=== PATIENT | female | born 1990 | race African-American/Black ===

== ENCOUNTER 2023-03-03 00:34 | Emergency (ER) | payer OTHER, SELFPAY ==
[2023-03-03 00:36] VITALS: BP 122/82; PULSE 93; RESP 16; TEMP 36.9; O2SAT 100; BMI 24.9
--- NOTE | 2023-03-03 00:48 | PC.NURSE ---
Pt presents to ER for vaginal bleeding Pt states her last period was December 19, pt believes she had a miscarriage on January 13 Pt states she is afraid she did not pass all of the tissue as she is bleeding large clots at this time accompanied by abdominal pain and cramping Pt has not seen an OBGYN for this process
--- NOTE | 2023-03-03 00:48 | ED.FEMALEGU1 ---
HPI - Female Genitourinary General Chief complaint: Vaginal Bleeding Stated complaint: VAGINAL BLEEDING Time Seen by Provider: 03/03/23 00:37 Source: patient Mode of arrival: walk-in History of Present Illness HPI Narrative: 32-year-old female presents to the emergency department for vaginal bleeding. She believes she had a miscarriage on January 13. She did not seek medical care at that time and hasn't seen a logistics support. She is worried that she didn't pass everything. She has low abdominal pain and cramping and she's been having some bleeding for a few days. No fever. Related Data Home Medications Medication Instructions Recorded Confirmed buspirone 15 mg tablet mg 03/03/23 Allergies Allergy/AdvReac Type Severity Reaction Status Date / Time No Known Drug Allergies Allergy Verified 03/03/23 00:42 Review of Systems ROS Narrative A ten point review of systems is negative except as noted above. PFSH PFS Social History Smoking status: Current every day smoker Exam Narrative Exam Narrative: Nurses note and vital signs reviewed and patient is not hypoxic. General: The patient appears well and in no apparent distress. Patient is resting comfortably on cart. Skin: Warm, dry, no pallor noted. There is no rash noted. Head: Normocephalic, atraumatic Eye: Normal conjunctiva, no drainage Ears, Nose, Mouth, and Throat: oral mucosa is moist. Nares patent. Cardiovascular: Regular Rate and Rhythm Respiratory: Patient is in no distress, no accessory muscle use, lungs are clear to auscultation, no wheezing, rales or rhonchi Back: non-tender GI: soft; non-tender in the upper abdomen. Mild tenderness in the lower abdomen Musculoskeletal: The patient has no evidence of calf tenderness, no pitting edema, symmetrical pulses noted bilaterally Neurological: A&O, normal speech Psychiatric: Cooperative Constitutional Vital Signs, click to edit/add: Last Vital Signs Temp 98.4 F 03/03/23 00:36 Pulse 93 H 03/03/23 00:36 Resp 16 03/03/23 00:36 BP 122/82 03/03/23 00:36 Pulse Ox 100 03/03/23 00:36 O2 Del Method Room Air 03/03/23 00:36 Course Vital Signs Vital signs: Vital Signs Temperature 98.4 F 03/03/23 00:36 Pulse Rate 93 H 03/03/23 00:36 Respiratory Rate 16 03/03/23 00:36 Blood Pressure 122/82 03/03/23 00:36 Pulse Oximetry 100 03/03/23 00:36 Oxygen Delivery Method Room Air 03/03/23 00:36 Temperature 98.4 F 03/03/23 00:36 Pulse Rate 93 H 03/03/23 00:36 Respiratory Rate 16 10 00:36 Blood Pressure 122/82 03/03/23 00:36 Pulse Oximetry 100 03/03/23 00:36 Oxygen Delivery Method Room Air 03/03/23 00:36 MDM - Female Genitourinary MDM Narrative Medical decision making narrative: HCG titer is 6966 and ultrasound shows five-week size gestational sac. The possibility of miscarriage was discussed with the patient and the possibility of blighted ovum exists as well. She will be discharged home and will call her HUMAN RESOURCES SUPERVISOR's office in the morning for appropriate follow-up. The need for repeat hCG titer was discussed with the patient. There is no evidence at this point of an ectopic . Differential Diagnosis Differential diagnosis: Likely other (ectopic , threatened , incomplete ) Lab Data Attestation: I reviewed the patient's lab results. Labs: Lab Results 03/03/23 Range/Units 01:00 WBC 8.5 (4.0-11.0) 10^3/uL RBC 3.18 L (4.20-5.40) 10^6/uL Hgb 9.7 L (12.0-16.0) g/dL Hct 29.8 L (36.0-48.0) % MCV 93.7 (81.0-99.0) fL MCH 30.5 (26.7-34.0) pg MCHC 32.6 (29.9-35.2) g/dL RDW 12.1 (11.0-15.0) % Plt Count 350 (150-450) 10^3/uL MPV 10.1 (9.5-13.5) fL Neut % (Auto) 52.5 (43.0-75.0) % Lymph % (Auto) 29.1 (20.5-60.0) % [place] % (Auto) 11.6 (1.7-12.0) % Eos % (Auto) 5.9 (0.9-7.0) % Baso % (Auto) 0.5 (0.2-2.0) % Neut # (Auto) 4.5 (1.4-6.5) 10^3/uL Lymph # (Auto) 2.5 (1.2-3.8) 10^3/uL [place] # (Auto) 1.0 H (0.3-0.8) 10^3/uL Eos # (Auto) 0.5 (0.0-0.7) 10^3/uL Baso # (Auto) 0.0 (0.0-0.1) 10^3/uL Abs Immat Gran (auto) 0.03 (0.00-0.03) 10^3/uL Imm/Tot Granulo (auto) 0.4 (0.0-0.5) % Sodium 135 L (136-145) mmol/L Potassium 3.2 L (3.5-5.1) mmol/L Chloride 104 (98-107) mmol/L Carbon Dioxide 26.4 (21.0-32.0) mmol/L Anion Gap 7.8 BUN 11.0 (7.0-18.0) mg/dL Creatinine 0.69 (0.55-1.02) mg/dL Est GFR ( Amer) >60 (>=60) Est GFR (Non-Af Amer) >60 (>=60) BUN/Creatinine Ratio 15.9 Glucose 98 (74-106) mg/dL Calcium 8.2 L (8.5-10.1) mg/dL HCG, Quant 6966 mIU/mL Blood Type B Positive Imaging Data pelvic ultrasound: Radiologist's impression: Procedure: US OB transvaginal EXAM: US OB transvaginal HISTORY: Intermittent vaginal bleeding since 02/16/2023. Quadrant [id number] COMPARISON: Pelvic ultrasound, 08/06/2021. TECHNIQUE: Transvaginal sonographic images of pelvis were obtained in standard projections. FINDINGS: There is an intrauterine gestational sac measuring 1 cm in mean sac diameter, corresponding to an early 5 week gestation. No intrinsic yolk sac or pole is seen. There is no subchorionic hemorrhage. The uterus is anteverted but otherwise unremarkable. The right ovary appears normal and measures 2.7 x 1.3 x 3.1 cm. Right ovarian color flow imaging is documented. The left ovary measures 3.5 x 4.8 x 3.3 cm and contains a simple anechoic corpus luteum cyst, measuring 2.7 x 2.6 x 2.6 cm. Normal left ovarian color flow imaging is seen on image 8192. Trace free fluid is noted. No adnexal mass is seen. IMPRESSION: 1. Intrauterine gestational sac corresponding to a 5 week gestation by mean sac diameter. No intrinsic yolk sac or pole is seen. Follow-up beta-hCG levels and pelvic sonography are recommended to distinguish between early IUP, blighted ovum, or less likely, a pseudocyst sac of ectopic . 2. Simple left ovarian corpus luteum cyst. Otherwise unremarkable bilateral ovaries. 3. Trace pelvic free fluid. 4. No adnexal mass. Electronically authenticated by: STACEY GORMAN Date: 03/03/2023 03:51 Discharge Plan Discharge Chief Complaint: Vaginal Bleeding Clinical Impression: Threatened Patient Disposition: Home, Self-Care Time of Disposition Decision: 04:00 Condition: Good Mode of Transportation: Private Vehicle Prescriptions / Home Meds: No Action buspirone 15 mg tablet Instructions: Threatened Miscarriage (ED) Additional Instructions: Call Dr Choi's office in the morning. Stand Alone Forms: Portal Instructions Referrals: VINICIUS BATRES [Primary Care Provider] - 1 week
[2023-03-03 01:25] LABS: Basophils Percent Auto 0.5 % (0.2-2.0); Eosinophils Absolute Auto 0.5 10^3/uL (0.0-0.7); Eosinophils Percent Auto 5.9 % (0.9-7.0); Hematocrit 29.8 % (36.0-48.0); Hemoglobin 9.7 g/dL (12.0-16.0); Immature Granulocytes Abs Auto 0.03 10^3/uL (0.00-0.03); Immature Granulocytes Pct Auto 0.4 % (0.0-0.5); Lymphocytes Absolute Auto 2.5 10^3/uL (1.2-3.8); Lymphocytes Percent Auto 29.1 % (20.5-60.0); Mean Corpuscular HGB Conc 32.6 g/dL (29.9-35.2); Mean Corpuscular Hemoglobin 30.5 pg (26.7-34.0); Mean Corpuscular Volume 93.7 fL (81.0-99.0); Mean Platelet Volume 10.1 fL (9.5-13.5); Monocytes Percent Auto 11.6 % (1.7-12.0); Neutrophils Absolute Auto 4.5 10^3/uL (1.4-6.5); Neutrophils Percent Auto 52.5 % (43.0-75.0); Platelet Count 350 10^3/uL (150-450); Red Blood Count 3.18 10^6/uL (4.20-5.40); Red Cell Distribution Width 12.1 % (11.0-15.0); White Blood Count 8.5 10^3/uL (4.0-11.0)
[2023-03-03 02:04] LABS: Anion Gap 7.8; BUN Creatinine Ratio 15.9; Calcium 8.2 mg/dL (8.5-10.1); Carbon Dioxide 26.4 mmol/L (21.0-32.0); Chloride 104 mmol/L (98-107); Estimated GFR (African America >60 (>=60); Estimated GFR (Non-African Ame >60 (>=60); Glucose 98 mg/dL (74-106); HCG Quantitative 6966 mIU/mL; Potassium 3.2 mmol/L (3.5-5.1); Sodium 135 mmol/L (136-145)
--- NOTE | 2023-03-03 02:12 | US_ITS ---
The [address] [address] Patient Name: HOMERO RAMIREZ MRN: [id number] date: 1990 Sex: F Assigned Patient Location: ER Current Patient Location: ER Accession/Order Number: [id number] Exam Date: 03/03/2023 02:30 Report Date: 03/03/2023 03:51 At the request of: JAZMIN GARBER Procedure: US OB transvaginal EXAM: US OB transvaginal HISTORY: Intermittent vaginal bleeding since 02/16/2023. Quadrant [id number] COMPARISON: Pelvic ultrasound, 08/06/2021. TECHNIQUE: Transvaginal sonographic images of pelvis were obtained in standard projections. FINDINGS: There is an intrauterine gestational sac measuring 1 cm in mean sac diameter, corresponding to an early 5 week gestation. No intrinsic yolk sac or pole is seen. There is no subchorionic hemorrhage. The uterus is anteverted but otherwise unremarkable. The right ovary appears normal and measures 2.7 x 1.3 x 3.1 cm. Right ovarian color flow imaging is documented. The left ovary measures 3.5 x 4.8 x 3.3 cm and contains a simple anechoic corpus luteum cyst, measuring 2.7 x 2.6 x 2.6 cm. Normal left ovarian color flow imaging is seen on image 8192. Trace free fluid is noted. No adnexal mass is seen. US/US OB transvaginal IMPRESSION: 1. Intrauterine gestational sac corresponding to a 5 week gestation by mean sac diameter. No intrinsic yolk sac or pole is seen. Follow-up beta-hCG levels and pelvic sonography are recommended to distinguish between early IUP, blighted ovum, or less likely, a pseudocyst sac of ectopic . 2. Simple left ovarian corpus luteum cyst. Otherwise unremarkable bilateral ovaries. 3. Trace pelvic free fluid. 4. No adnexal mass. Electronically authenticated by: STACEY GORMAN Date: 03/03/2023 03:51
== END 2023-03-03 04:25 | disposition home or self-care (01) ==
PROVIDERS: Emergency Provider Emergency Medicine; PCP Family Medicine
DX: O20.0 Threatened abortion (principal); Z3A.01 Less than 8 weeks gestation of pregnancy
CPT/HCPCS: 36415; 76817; 80048; 84702; 85025; 86900; 86901; 99284

== ENCOUNTER 2023-03-04 17:44 | Day surgery (SDC) | payer OTHER, SELFPAY ==
[2023-03-04] VITALS (12 sets, daily range): BP systolic 113–162; BP diastolic 58–109; PULSE 74–132; RESP 18–28; TEMP 36.2–36.9; O2SAT 94–100; BMI 25.7
--- NOTE | 2023-03-04 18:19 | US_ITS ---
The [address] [address] Patient Name: HOMERO RAMIREZ MRN: [id number] date: 1990 Sex: F Assigned Patient Location: ER Current Patient Location: ED.MAIN Accession/Order Number: [id number] Exam Date: 03/04/2023 19:18 Report Date: 03/04/2023 20:10 At the request of: JUANJOSE COBOS Procedure: US OB transvaginal EXAM: US OB transvaginal HISTORY: Spontaneous , retained POC COMPARISON: Pelvic ultrasound, 03/03/2023. TECHNIQUE: Endovaginal sonographic images of pelvis were obtained in standard projections with color flow imaging. FINDINGS: No interval change from yesterday. Intrauterine gestational sac measuring 1.2 cm corresponding to 5 week 2 day gestation. No intrinsic yolk sac or pole. No subchorionic hemorrhage or uterine mass. Close cervix measuring 3.6 cm. Unremarkable right ovary measuring 3.3 x 1.5 x 2.3 cm. Left ovary measures 4.7 x 3.7 x 4.2 cm with a simple 2.9 cm cyst, likely a corpus luteum. US/US OB transvaginal IMPRESSION: 1. No interval change from yesterday. 2. Cystic lesion in the endometrial canal favoring a gestational sac over pseudocyst sac of ectopic . This corresponds to an early 5 week 2 day gestation and contains no yolk sac or pole. Follow-up beta-hCG levels and pelvic sonography are recommended to differentiate between early IUP and potential blighted ovum. 3. No adnexal mass or pelvic free fluid. 4. Left ovarian corpus luteum. Otherwise unremarkable ovaries. Electronically authenticated by: STACEY GORMAN Date: 03/04/2023 20:10
--- NOTE | 2023-03-04 18:21 | ED_ITS ---
HPI - General Chief complaint: Vaginal Bleeding Stated complaint: Time Seen by Provider: 03/04/23 18:15 Source: patient Mode of arrival: walk-in History of Present Illness HPI Narrative: patient is a 32-year-old female A2 who presents to the emergency department for an increase in vaginal bleeding, pelvic pain. Patient was seen in this emergency department several days ago and was found to have ultrasound showing a five week , although the patient has suspected for several weeks that she is miscarrying. She is due to see her MIXER WHIPPED TOPPING in two days for a D and C. She states today the pain became more intense, she has had vomiting but no fevers. No medications taken prior to arrival. She is passing clots, she has not noted any tissue. No urinary symptoms. Related Data Home Medications Medication Instructions Recorded Confirmed buspirone 15 mg tablet mg 03/03/23 Allergies Allergy/AdvReac Type Severity Reaction Status Date / Time No Known Drug Allergies Allergy Verified 03/03/23 00:42 Review of Systems ROS Constitutional Denies: fever or chills Ears, nose, mouth, and throat Denies: neck pain Cardiovascular Denies: chest pain Respiratory Denies: shortness of breath or cough Gastrointestinal Reports: abdominal pain, nausea and vomiting; Denies: diarrhea Genitourinary Denies: painful urination Musculoskeletal Reports: back pain Integumentary/Breast Denies: rash Neurological Denies: headache Psychiatric Denies: anxiety Hematologic/Lymphatic Denies: easy bruising [facility] Social History Smoking status: Current every day smoker Exam Narrative Exam Narrative: Gen.: Awake, alert, in no distress Head: Normocephalic, atraumatic ENT: Moist mucous membranes Respiratory: No respiratory distress, lungs clear bilaterally Cardio: Regular rate and rhythm Gastrointestinal: Abdomen is soft, nondistended, tender to palpation diffusely in the pelvis, worse on the left side Extremities: Moves extremities equally Psych: Normal mood and affect Neuro: No focal neuro deficit Skin: Warm, dry, intact Constitutional Vital Signs, click to edit/add: Last Vital Signs Temp 98.4 F 03/04/23 17:57 Pulse 74 03/04/23 19:40 Resp 18 03/04/23 19:40 BP 130/78 03/04/23 19:40 Pulse Ox 100 10/10/23 19:40 O2 Del Method Room Air 03/04/23 17:57 Course Vital Signs Vital signs: Vital Signs Temperature 98.4 F 03/04/23 17:57 Pulse Rate 86 03/04/23 17:57 Respiratory Rate 20 03/04/23 17:57 Blood Pressure 162/109 H 03/04/23 17:57 Pulse Oximetry 98 03/04/23 17:57 Oxygen Delivery Method Room Air 03/04/23 17:57 Temperature 98.4 F 03/04/23 17:57 Pulse Rate 74 03/04/23 19:40 Respiratory Rate 18 03/04/23 19:40 Blood Pressure 130/78 03/04/23 19:40 Pulse Oximetry 100 03/04/23 19:40 Oxygen Delivery Method Room Air 03/04/23 17:57 MDM - OB/Uterine Contractions MDM Narrative Medical decision making narrative: patient was stable lab studies, quantitative hCG level has increased, I discussed this with MIXER WHIPPED TOPPING, Dr. Choi and patient has had varying levels of quantitative hCG levels over the last several weeks, with increasing pain and bleeding, ultrasound shows continued suspicion for blighted ovum. Patient will be taken for a suction D and C as this is not progressing the way that it should. Patient is in agreement with this procedure. Discussed with anesthesia and surgical team, patient will be admitted for suction D and C. Stable at time of admission. Medical Records Attestation: I reviewed the patient's medical records. Lab Data Attestation: I reviewed the patient's lab results. Labs: Lab Results 03/04/23 Range/Units 18:11 WBC 11.1 H (4.0-11.0) 10^3/uL RBC 3.42 L (4.20-5.40) 10^6/uL Hgb 10.6 L (12.0-16.0) g/dL Hct 31.8 L (36.0-48.0) % MCV 93.0 (81.0-99.0) fL MCH 31.0 (26.7-34.0) pg MCHC 33.3 (29.9-35.2) g/dL RDW 12.3 (11.0-15.0) % Plt Count 385 (150-450) 10^3/uL MPV 10.1 (9.5-13.5) fL Neut % (Auto) 60.4 (43.0-75.0) % Lymph % (Auto) 26.3 (20.5-60.0) % [place] % (Auto) 9.3 (1.7-12.0) % Eos % (Auto) 3.1 (0.9-7.0) % Baso % (Auto) 0.5 (0.2-2.0) % Neut # (Auto) 6.7 H (1.4-6.5) 10^3/uL Lymph # (Auto) 2.9 (1.2-3.8) 10^3/uL [place] # (Auto) 1.0 H (0.3-0.8) 10^3/uL Eos # (Auto) 0.4 (0.0-0.7) 10^3/uL Baso # (Auto) 0.1 (0.0-0.1) 10^3/uL Abs Immat Gran (auto) 0.04 H (0.00-0.03) 10^3/uL Imm/Tot Granulo (auto) 0.4 (0.0-0.5) % PT 10.1 (9.0-11.6) sec INR 0.95 Sodium 136 (136-145) mmol/L Potassium 3.3 L (3.5-5.1) mmol/L Chloride 104 (98-107) mmol/L Carbon Dioxide 27.6 (21.0-32.0) mmol/L Anion Gap 7.7 BUN 8.0 (7.0-18.0) mg/dL Creatinine 0.67 (0.55-1.02) mg/dL Est GFR ( Amer) >60 (>=60) Est GFR (Non-Af Amer) >60 (>=60) BUN/Creatinine Ratio 11.9 Glucose 91 (74-106) mg/dL Calcium 9.0 (8.5-10.1) mg/dL Total Bilirubin 0.4 (0.2-1.0) mg/dL AST 12 L (15-37) U/L ALT 19 (14-59) U/L Alkaline Phosphatase 37 L (46-116) U/L Total Protein 7.7 (6.4-8.2) g/dL Albumin 4.0 (3.4-5.0) g/dL Globulin 3.7 g/dL Albumin/Globulin Ratio 1.1 HCG, Quant 99450 mIU/mL Discharge Plan Discharge Chief Complaint: Vaginal Bleeding Time of Disposition Decision: 19:59 Prescriptions / Home Meds: No Action buspirone 15 mg tablet
[2023-03-04] MEDS: 0.9 % SODIUM CHLORIDE 1,000 ML 999 ML IV (18:28)
[2023-03-04] MEDS: ONDANSETRON PF 4 MG/2 ML VIAL IV (18:28)
[2023-03-04 18:30] LABS: Basophils Absolute Auto 0.1 10^3/uL (0.0-0.1); Basophils Percent Auto 0.5 % (0.2-2.0); Eosinophils Absolute Auto 0.4 10^3/uL (0.0-0.7); Eosinophils Percent Auto 3.1 % (0.9-7.0); Hematocrit 31.8 % (36.0-48.0); Hemoglobin 10.6 g/dL (12.0-16.0); Immature Granulocytes Abs Auto 0.04 10^3/uL (0.00-0.03); Immature Granulocytes Pct Auto 0.4 % (0.0-0.5); Lymphocytes Absolute Auto 2.9 10^3/uL (1.2-3.8); Lymphocytes Percent Auto 26.3 % (20.5-60.0); Mean Corpuscular HGB Conc 33.3 g/dL (29.9-35.2); Mean Platelet Volume 10.1 fL (9.5-13.5); Monocytes Percent Auto 9.3 % (1.7-12.0); Neutrophils Absolute Auto 6.7 10^3/uL (1.4-6.5); Neutrophils Percent Auto 60.4 % (43.0-75.0); Platelet Count 385 10^3/uL (150-450); Red Blood Count 3.42 10^6/uL (4.20-5.40); Red Cell Distribution Width 12.3 % (11.0-15.0); White Blood Count 11.1 10^3/uL (4.0-11.0)
[2023-03-04] MEDS: MORPHINE SULFATE 4 MG/ML VIAL IV (18:32)
[2023-03-04 18:36] LABS: INR 0.95; Prothrombin Time 10.1 sec (9.0-11.6)
[2023-03-04 18:39] LABS: Alanine Aminotransferase 19 U/L (14-59); Albumin Globulin Ratio 1.1; Alkaline Phosphatase 37 U/L (46-116); Anion Gap 7.7; Aspartate Amino Transferase 12 U/L (15-37); BUN Creatinine Ratio 11.9; Bilirubin Total 0.4 mg/dL (0.2-1.0); Carbon Dioxide 27.6 mmol/L (21.0-32.0); Chloride 104 mmol/L (98-107); Estimated GFR (African America >60 (>=60); Estimated GFR (Non-African Ame >60 (>=60); Globulin 3.7 g/dL; Glucose 91 mg/dL (74-106); Potassium 3.3 mmol/L (3.5-5.1); Sodium 136 mmol/L (136-145); Total Protein 7.7 g/dL (6.4-8.2)
[2023-03-04 18:58] LABS: HCG Quantitative 10074 mIU/mL
[2023-03-04] MEDS: LACTATED RINGER'S SOLUTION 1,000 ML 1000 ML IV (20:08)
--- NOTE | 2023-03-04 20:17 | PC.NURSE ---
OR nurse to unit at this time. Report given and patient to surgery
--- NOTE | 2023-03-04 21:02 | P.ON_ITS ---
Brief Operative Note Date of procedure: 03/04/23 Pre-op diagnosis: 1st trimester missed Post-op diagnosis: same as pre-op Procedure: NAME OF PROCEDURE: [D&C suction ] PROCEDURE: The patient was taken back to the OR where she was given general anesthesia without difficulty. She was then placed in dorsal lithotomy position, prepped and draped in the normal sterile fashion. A weighted speculum was placed in the patient's vagina and the anterior lip of the cervix was identified and grasped with a single-tooth tenaculum. The patient was then gently dilated using Hegar dilators after we had sounded roughly to 10 cm. The suction curette was then tested. The suction curette was then placed in the patient's uterus and products of conception were removed using an 10-Macedonian suction curette. ?Excellent hemostasis was noted. The patient tolerated the procedure well. Sponge, lap, and needle counts were correct x 2. All instruments were then removed from the patient's vagina. The patient was taken to the Recovery Room in stable co ndition. ?? Anesthesia: ANIYAHA Surgeon: Shakir Choi Estimated blood loss (mL): 25 Pathology: other (products of conception) Condition: stable Disposition: PACU
--- NOTE | 2023-03-04 22:04 | PC.NURSE ---
patient arrived from PACU alert and oriented. Patient transported in bed with two nurses. Patient has urinated, denies c/o pain and is currently eating and drinking.
--- NOTE | 2023-03-04 22:15 | PC.NURSE ---
Patient has been given discharge instruction and scripts. Patient has verbalized understanding.
== END 2023-03-04 22:19 | disposition home or self-care (01) ==
LOC: ER 20:05 → SURGOUT 20:30
PROVIDERS: Physician Assistant; Emergency Provider Emergency Medicine Emergency Medical Services; PCP Family Medicine; Visit Provider Obstetrics & Gynecology
PROC: (CPT 1965; principal; 2023-03-04 20:30)
DX: O02.1 Missed abortion (principal)
CPT/HCPCS: 01965; 59820; 36415; 76817; 80053; 84702; 85025; 85610; 86850; 86900; 86901; 88305; 96361; 96374; 96375; 99285; J2704

== ENCOUNTER 2023-11-24 20:31 | Emergency (ER) | payer OTHER, SELFPAY ==
[2023-11-24 20:56] VITALS: BP 125/96; PULSE 80; TEMP 37; O2SAT 100; BMI 26.8
[2023-11-24 21:38] LABS: Bilirubin Urine NEGATIVE (NEGATIVE); Blood Urine NEGATIVE (NEGATIVE); Clarity Urine CLEAR (CLEAR); Color Urine LT. YELLOW (YELLOW); Glucose Urine UA NEGATIVE (NEGATIVE); Ketones Urine NEGATIVE (NEGATIVE); Leukocyte Esterase Urine NEGATIVE (NEGATIVE); Nitrite Urine POSITIVE (NEGATIVE); Protein Urine NEGATIVE (NEG/TRACE); Specific Gravity Urine 1.015 (1.005-1.025); pH Urine 8.5 (5.0-9.0)
[2023-11-24 21:44] LABS: HCG Qualitative Urine* POSITIVE (NEGATIVE); Internal Control Within Normal Limits
[2023-11-24 21:53] LABS: Bacteria Urine MODERATE #/HPF (NONE SEEN); Cast Seen? NONE SEEN #/LPF (NONE SEEN); Crystals Seen? None Seen #/HPF (None Seen); Mucus Urine NONE SEEN (NONE SEEN); RBC Urine NONE SEEN #/HPF (0-2); Squamous Epithelial Cell Urine FEW #/LPF (NONE/RARE); Urine Culture Indicated YES
--- NOTE | 2023-11-24 22:00 | ED.FEMALEGU1 ---
HPI - Female Genitourinary General Chief complaint: Urogenital-Female Stated complaint: Possible Under 20-weeks Time Seen by Provider: 11/24/23 20:35 Source: patient Mode of arrival: walk-in Limitations: no limitations History of Present Illness HPI Narrative: This 33-year-old female G8, P5 who has had 2 miscarriages presents for evaluation of lower abdominal cramping and vaginal spotting. She states her last menstrual period was at the end of September. She denies any passage of large clots or tissue. She states she gets anxious because she had a miscarriage requiring a D&C the last time she was . Her SCREW MACHINE OPERATOR is Dr. Choi. Related Data Home Medications ?Medication ?Instructions ?Recorded ?Confirmed baricitinib 2 mg tablet (Olumiant) 2 mg PO DAILY 11/24/23 11/24/23 Allergies Allergy/AdvReac Type Severity Reaction Status Date / Time No Known Drug Allergies Allergy Verified 11/24/23 20:56 Review of Systems ROS Status of ROS 10 or more systems reviewed and unremarkable except as noted in history and below PFSH PFS Social History Smoking status: Current every day smoker Exam Narrative Exam Narrative: Vital signs and Nursing Notes reviewed: Patient is afebrile with a normal pulse, blood pressure is elevated at 125/96, she is not hypoxic with pulse ox of 100% on room air General: Awake, alert, oriented, no acute distress, lying comfortably on the stretcher HEENT: Normocephalic atraumatic, mucous membranes are moist and pink, eyes are clear, normal conjunctiva, vision is grossly intact Chest: Lungs are clear to auscultation with good air entry, there is no wheezing rhonchi or rales appreciated no accessory muscle use, patient is speaking in complete sentences-no chest wall tenderness to palpation CVS: Regular rate and rhythm S1-S2, no murmurs rubs or gallops, pulses are brisk and equal bilaterally ABD: Soft, nondistended, nontender, no rebound guarding or rigidity, mild tenderness in the left adnexa, no tenderness over the urinary bladder : declined Extremities: Moving all extremities, no lower extremity tenderness or swelling noted, negative Homans' sign, pulses are brisk and equal bilaterally Skin: Normal in appearance without rash,pallor, petechiae or purpura Neuro: No focal deficits Constitutional Vital Signs, click to edit/add: Last Vital Signs Temp 98.6 F 11/24/23 20:56 Pulse 80 11/24/23 20:56 Resp 18 11/24/23 20:56 BP 125/96 H 11/24/23 20:56 Pulse Ox 100 11/24/23 20:56 O2 Del Method Room Air 11/24/23 20:56 Course Vital Signs Vital signs: Vital Signs Temperature 98.6 F 11/24/23 20:56 Pulse Rate 80 11/24/23 20:56 Respiratory Rate 18 11/24/23 20:56 Blood Pressure 125/96 H 11/24/23 20:56 Pulse Oximetry 100 11/24/23 20:56 Oxygen Delivery Method Room Air 11/24/23 20:56 Temperature 98.6 F 11/24/23 20:56 Pulse Rate 80 11/24/23 20:56 Respiratory Rate 18 11/24/23 20:56 Blood Pressure 125/96 H 11/24/23 20:56 Pulse Oximetry 100 11/24/23 20:56 Oxygen Delivery Method Room Air 11/24/23 20:56 MDM - Female Genitourinary MDM Narrative Medical decision making narrative: This 33-year-old female who has had 2 miscarriages in the past presents for evaluation of painless vaginal bleeding/spotting and some mild lower abdominal cramping that has been present for the past several days. She states her last miscarriage started like this. She is not having any severe abdominal pain. She declines a pelvic exam. Her urine is negative for infection but positive qualitative test resulted. The results of this this was discussed with her. She will be given an outpatient ultrasound requisition and will follow-up with Dr. Choi, her SCREW MACHINE OPERATOR. Lab Data Labs: Lab Results 11/24/23 Range/Units 21:15 Urine Color Lt. yellow (YELLOW) Urine Clarity Clear (CLEAR) Urine pH 8.5 (5.0-9.0) Ur Specific [place] 1.015 (1.005-1.025) Urine Protein Negative (NEG/TRACE) mg/dL Urine Glucose (UA) Negative (NEGATIVE) mg/dL Urine Ketones Negative (NEGATIVE) mg/dL Urine Occult Blood Negative (NEGATIVE) Urine Nitrite Positive A (NEGATIVE) Urine Bilirubin Negative (NEGATIVE) Urine Urobilinogen 1.0 (0.2-1.0) EU/dL Ur Leukocyte Esterase Negative (NEGATIVE) Urine RBC None seen (0-2) #/HPF Urine WBC 5-10 A (NONE SEEN) #/HPF Ur Squamous Epith Cells Few A (NONE/RARE) #/LPF Urine Crystals None seen (None Seen) #/HPF Urine Bacteria Moderate A (NONE SEEN) #/HPF Urine Casts None seen (NONE SEEN) #/LPF Urine Mucus None seen (NONE SEEN) Ur Culture Indicated? Yes Urine HCG, Qual Positive A (NEGATIVE) Discharge Plan Discharge Stand Alone Forms: Portal Instructions Chief Complaint: Urogenital-Female Clinical Impression: Threatened Patient Disposition: Home, Self-Care Time of Disposition Decision: 22:06 Condition: Good Prescriptions / Home Meds: No Action Olumiant 2 mg tablet 2 mg PO DAILY Print Language: Honduran Instructions: Threatened Miscarriage (ED) Additional Instructions: Call central scheduling to schedule an ultrasound. Avoid sex, tampons or douching in light of the vaginal bleeding and positive test. Referrals: VINICIUS BATRES [Primary Care Provider] - 1 week Shakir Choi DO [Physician] - 1 week
== END 2023-11-24 22:38 | disposition home or self-care (01) ==
PROVIDERS: Emergency Provider Emergency Medicine; PCP Family Medicine
DX: O20.0 Threatened abortion (principal); Z3A.00 Weeks of gestation of pregnancy not specified
CPT/HCPCS: 81001; 84703; 87086; 87150; 87186; 99283

== ENCOUNTER 2024-01-01 12:29 | Outpatient (OUT) | payer OTHER, SELFPAY ==
--- NOTE | 2024-01-01 12:30 | US_ITS ---
[address] [address] Patient Name: HOMERO RAMIREZ MRN: [id number] date: 1990 Sex: F Assigned Patient Location: [facility] Current Patient Location: [facility] Accession/Order Number: [id number] Exam Date: 01/01/2024 12:30 Report Date: 01/01/2024 14:01 At the request of: JINA HILL Procedure: US OB transvaginal EXAMINATION: US OB transvaginal HISTORY: MISSED MENSES COMPARISON: No relevant comparison available. FINDINGS: Clark intrauterine gestation Gestational sac: 3.5 cm, 9 weeks 1 day CRL: 2.50 cm, 9 weeks 1 day Yolk sac: 3.2 mm Heart rate: 181 beats minute Cervix: 4.6 cm, closed The uterus is normal, anteverted, anteflexed The ovaries are not visualized Clinical age: 8 weeks 5 days Clinical SURYA: 08/07/2024 Ultrasound age: 9 weeks 1 day Ultrasound SURYA: 08/04/2024 US/US OB transvaginal IMPRESSION: Viable clark intrauterine gestation measuring 9 weeks 1 day Electronically authenticated by: VINICIUS GARCIA Date: 01/01/2024 14:01
== END 2024-01-01 12:30 | disposition home or self-care (01) ==
LOC: NOMS 12:29
PROVIDERS: PCP Family Medicine; Visit Provider Obstetrics & Gynecology
DX: Z34.91 Encounter for supervision of normal pregnancy, unspecified, first trimester (principal); Z3A.09 9 weeks gestation of pregnancy; N92.6 Irregular menstruation, unspecified
CPT/HCPCS: 76817

== ENCOUNTER 2024-01-17 10:40 | Outpatient (OUT) | payer OTHER, SELFPAY ==
--- OUTSIDE RECORDS SUMMARY | 2024-01-17 10:47 | XMS_ITS | CCD ---
Author Organization [facility] Team Providers Care Senior Specialist Name Role Phone LIZ, DR MURO Admitting Unavailable MISC, DR MIRELES Primary Care Unavailable RADHA, DR VINICIUS Fuentes Consulting Unavailable LIZ, DR MURO Attending Unavailable LIZ, DR MURO Consulting Unavailable LIZ, DR MURO Admitting Unavailable LIZ, DR MURO Attending Unavailable LIZ, DR MURO Consulting Unavailable REQUEST, NONE LISTED Primary Care Unavaila ble LIZ, DR MURO Admitting Unavailable REQUEST, NONE LISTED Primary Care Unavaila ble LIZ, DR MURO Attending Unavailable JAZMIN GARBER Consulting Unavailable JAZMIN GARBER Admitting Unavailable REQUEST, NONE LISTED Primary Care Unavaila JAZMIN Patel Attending Unavailable LIZ, DR MURO Attending Unavailable LIZ, DR MURO Admitting Unavailable WEST, DR VINICIUS Fuentes Consulting Unavailable REQUEST, DR BETTS LISTED Primary Care Unavaila ble LIZ, DR MURO Consulting Unavailable LIZ, DR MURO Admitting Unavailable LIZ, DR MURO Attending Unavailable LIZ, DR MURO Consulting Unavailable LIZ, DR MURO Primary Care Unavailable Jayro ATWOOD, Benson Primary Care Provider Un available Jayro ATWOOD, Benson Primary Care Provider Un available OBCHRIS, BENSON Primary Care Unavailable OBCHRIS, ALPHCHANI Primary Care Unavailable TREVA LOMELI Referring Unavailable VINICIUS BATRES Primary Care Unavailable VINICIUS BATRES Primary Care Unavailable VINICIUS BATRES Primary Care Unavailable CARROL DAVIS Attending Unavailable BERNIE PULIDO Referring Unavailable [facility] Unavailable BERNIE PULIDO Referring Unavailable [facility] Unavailable BERNIE PULIDO Referring Unavailable [facility] Unavailable Medications Current Medications Medication Drug Class(es) Dates Sig (Normalized) Sig (Original) azithromycin 500 mg oral tablet (1 source) Macrolide Antimicrobial Start: 09-03-2021 azithromycin (ZITHROMAX) 500 MG tablet cephalexin 500 mg oral capsule (1 source) Cephalosporin Antibacterial Start: 08-21-2021 End: 08-28-2021 take 1 capsule by mouth four times daily cephALEXin (KEFLEX) 500 MG capsule Indications: Urinary tract infection in mother during , antepartum Take 1 capsule by mouth 4 times daily for 7 days 28 capsule 0 08/21/2021 08/28/2021 Active ferrous sulfate 325 mg oral tablet (1 source) Start: 09-01-2021 take 1 tablet by mouth once daily at breakfast ferrous sulfate (IRON 325) 325 (65 Fe) MG tablet Take 325 mg by mouth daily (with breakfast) 0 09/01/2021 Active 2.5 ml iron sucrose 20 mg/ml injection (1 source) Parenteral Iron Replacement Start: 09-04-2021 End: 09-19-2021 inject 15 mL intravenously every week iron sucrose (VENOFER) 20 MG/ML injection Indications: Maternal iron deficiency anemia affecting in third trimester, antepartum Infuse 15 mLs intravenously once a week for 3 doses 45 mL 0 09/04/2021 09/19/2021 Active VITAMINS PO (2 sources) Start: 04-23-2012 take 1 tablet by mouth once daily VITAMINS PO Take 1 tablet by mouth daily. 0 04/23/2012 Active Problems Active Problems Problem Classification Problem Date Documented Da te Episodic/Chronic Cardiac and circulatory congenital anomalies (2 sources) Congenital heart disease; Translations: [Congenital malformation of heart, unspecified] Onset: 08-21-2021 08-21-2021 Chronic Deficiency and other anemia (1 source) Anemia, unspecified; Translations: [Anemia, unspecified] Onset: 12-05-2023 Episodic Genitourinary symptoms and ill-defined conditions (2 sources) History of urinary tract infection; Translations: [Personal history of urinary (tract) infections] Onset: 08-20-2021 08-21-2021 Episodic Hemorrhage during ; abruptio placenta; placenta previa (1 source) Low lying placenta NOS or without hemorrhage, second trimester; Translations: [LOW LYING PL NOS W/O HEMORR 2ND TRI] Onset: 08-07-2021 Episodic Menstrual disorders (4 sources) Irregular menstruation, unspecified; Translations: [IRREGULAR MENSTRUATION UNSPECIFIED] Onset: 03-30-2021 Chronic Nausea and vomiting (5 sources) Nausea with vomiting, unspecified; Translations: [NAUSEA WITH VOMITING UNSPECIFIED] Onset: 03-16-2021 Episodic Other aftercare (1 source) Other group home (current) drug therapy; Translations: [Other group home (current) drug therapy] Onset: 11-06-2023 Episodic Other complications of (1 source) Anemia in mother complicating , childbirth AND/OR puerperium; Translations: [Anemia complicating , third trimester] Onset: 09-04-2021 09-04-2021 Chronic Other complications of (2 sources) Uterine size for dates discrepancy; Translations: [Uterine size-date discrepancy, unspecified trimester] Onset: 08-21-2021 08-21-2021 Episodic Other female genital disorders (2 sources) H/O: premature delivery; Translations: [Personal history of pre-term labor] Onset: 08-20-2021 08-20-2021 Episodic Other infections; including parasitic (2 sources) History of chlamydial infection; Translations: [Personal history of other infectious and parasitic diseases] Onset: 08-20-2021 08-21-2021 Episodic Other infections; including parasitic (2 sources) H/O: infectious disease; Translations: [Personal history of other infectious and parasitic diseases] Onset: 08-20-2021 08-21-2021 Episodic Other and delivery including normal (6 sources) Encounter for supervision of other normal , first trimester; Translations: [Encounter for supervision of normal , unspecified, first trimester] Onset: 04-05-2021 Episodic Other screening for suspected conditions (not mental disorders or infectious disease) (5 sources) Encounter for other specified screening; Translations: [Encounter for screening for diabetes mellitus] Onset: 04-28-2021 Episodic Residual codes; unclassified (1 source) 26 weeks gestation of ; Translations: [26 WEEKS GESTATION OF ] Onset: 08-07-2021 Episodic Syncope (1 source) Syncope and collapse; Translations: [Syncope and collapse] Onset: 12-20-2023 Episodic Unclassified (1 source) Thrombocytosis, unspecified; Translations: [Thrombocytosis, unspecified] Onset: 12-05-2023 Unclassified (1 source) Morning Sickness Onset: 12-20-2023 Unclassified (1 source) recent possitive preg test, now bleeding Onset: 11-24-2023 Unclassified (1 source) Cold Like Symptoms Onset: 07-17-2023 Past or Other Problems Problem Classification Problem Date Documented Date Episodic/Chronic Immunizations and screening for infectious disease (4 sources) Contact with and (suspected) exposure to infections with a predominantly sexual mode of transmission; Translations: [CONTCT W EXPOS INFECT SEXUAL TRNSMS] Onset: 04-23-2021 Episodic Influenza (1 source) Influenza due to other identified influenza virus with other respiratory manifestations; Translations: [Influenza due to other identified influenza virus with other respiratory manifestations] Onset: 07-17-2023 Episodic Other complications of (1 source) Other specified related conditions, first trimester; Translations: [OTH SPEC PREG RELATED COND 1ST TRI] Onset: 04-23-2021 Episodic Other complications of (2 sources) Mental disorder during - baby not yet delivered; Translations: [Other mental disorders complicating , unspecified trimester] Onset: 06-24-2012 08-21-2021 Episodic Other complications of (2 sources) Hereditary disease in family possibly affecting fetus; Translations: [Maternal care for (suspected) hereditary disease in fetus, not applicable or unspecified] Onset: 06-24-2012 08-21-2021 Episodic Other complications of (2 sources) History of premature labor; Translations: [Supervision of with history of pre-term labor, unspecified trimester] Onset: 06-24-2012 Resolved: 08-20-2021 08-20-2021 Episodic Residual codes; unclassified (1 source) Less than 8 weeks gestation of ; Translations: [< 8 WEEKS GESTATION ] Onset: 04-23-2021 Episodic Substance-related disorders (2 sources) Suspected damage from maternal drug use; Translations: [Maternal care for (suspected) damage to fetus by drugs, not applicable or unspecified] Onset: 06-24-2012 Resolved: 08-21-2021 08-21-2021 Episodic Results Test Name Value Interpretation Reference Range Facility CBC AND AUTO DIFFon 12-20-19 ABSOLUTE BASOPHIL 0.1 X10E9/L Normal 0.0-0.2 [facility] Comment on above: Performed By: #### Marco Antonio ATKINSON CMP, #### [facility] ([id number]) [address] [place] [address] 04749 ABSOLUTE NEUTROPHIL 11.7 X10E9/L High 1.5-6.6 [facility] Comment on above: Performed By: #### Marco Antonio ATKINSON CMP, #### [facility] ([id number]) [address] [place] [address] 18171 Basophils/100 WBC (Bld) 0.4 % Normal [facility] Comment on above: Performed By: #### Marco Antonio ATKINSON CMP, #### [facility] ([id number]) [address] [place] [address] 28238 Eosinophils (Bld) [#/Vol] 0.3 10*3/uL Normal 0.0-0.4 [facility] Comment on above: Performed By: #### Marco Antonio ATKINSON [facility], #### [facility] ([id number]) [address] [place] [address] 98906 Eosinophils/100 WBC (Bld) 1.6 % Normal [facility] Comment on above: Performed By: #### Marco Antonio ATKINSON CMP, #### [facility] ([id number]) [address] [place] [address] 37955 Erythrocyte distribution width (RBC) [Ratio] 13.0 % Normal 11.5-15.0 [facility] Comment on above: Performed By: #### Marco Antonio ATKINSON CMP, #### [facility] ([id number]) [address] [place] [address] Hematocrit (Bld) [Volume fraction] 33.1 % Low 35-47 [facility] Comment on above: Performed By: #### C CEE ATKINSON, #### [facility] ([id number]) [address] [place] [address] 66700 Hemoglobin (Bld) [Mass/Vol] 11.1 g/dL Low 11.7-15.5 [facility] Comment on above: Performed By: #### Marco Antonio ATKINSON CMP, #### [facility] ([id number]) [address] [place] [address] 47288 Lymphocytes (Bld) [#/Vol] 2.6 10*3/uL Normal 1.0-3.5 [facility] Comment on above: Performed By: #### Marco Antonio ATKINSON CMP, #### [facility] ([id number]) [address] [place] [address] 66158 Lymphocytes/100 WBC (Bld) 16.5 % Normal [facility] Comment on above: Performed By: #### Marco Antonio ATKINSON CMP, #### [facility] ([id number]) [address] [place] [address] 29727 MCH (RBC) [Entitic mass] 30.3 pg Normal 27-34 [facility] Comment on above: Performed By: #### Marco Antonio ATKINSON CMP, #### [facility] ([id number]) [address] [place] [address] [place] [address] MCHC (RBC) [Mass/Vol] 33.6 g/dL Normal 32-36 [facility] Comment on above: Performed By: #### Marco Antonio ATKINSON CMP, #### [facility] ([id number]) [address] [place] [address] 26500 MCV (RBC) [Entitic vol] 90 fL Normal 80-100 [facility] Comment on above: Performed By: #### Marco Antonio ATKINSON CMP, #### [facility] ([id number]) [address] [place] [address] 13650 Monocytes (Bld) [#/Vol] 1.2 10*3/uL High 0-0.9 [facility] Comment on above: Performed By: #### Marco Antonio ATKINSON, CMP, #### [facility] ([id number]) [address] [place] [address] 91609 Monocytes/100 WBC (Bld) 7.5 % Normal [facility] Comment on above: Performed By: #### Marco Antonio ATKINSON CMP, #### [facility] ([id number]) [address] [place] [address] 59717 Neutrophils/100 WBC (Bld) 74.0 % Normal [facility] Comment on above: Performed By: #### Marco Antonio ATKINSON, CMP, #### [facility] ([id number]) [address] [place] [address] 41680 Platelet mean volume (Bld) [Entitic vol] 9.1 fL Normal 7-12 [facility] Comment on above: Performed By: #### Marco Antonio ATKINSON CMP, #### [facility] ([id number]) [address] [place] [address] 79131 Platelets (Bld) [#/Vol] 385 10*3/uL Normal 150-450 [facility] Comment on above: Performed By: #### Marco Antonio ATKINSON, CMP, #### [facility] ([id number]) [address] [place] [address] 96065 RBC COUNT 3.67 X10E12/L Low 3.80-5.20 [facility] Comment on above: Performed By: #### Marco Antonio ATKINSON, CMP, #### [facility] ([id number]) [address] [place] [address] 13816 WBC (Bld) [#/Vol] 15.8 10*3/uL High 4.0-11.0 [facility] Comment on above: Performed By: #### C BCA, CMP, #### [facility] ([id number]) [address] [place] [address] 65234 COMPREHENSIVE METABOLIC PANE Baljit 12-20-2023 Albumin [Mass/Vol] 4.2 g/dL Normal 3.2-5.3 [facility] Comment on above: Performed By: #### C CHINA, CMP, #### [facility] ([id number]) [address] [place] [address] 86790 ALP [Catalytic activity/Vol] 39 U/L Normal 39-130 [facility] Comment on above: Performed By: #### C BCA, CMP, #### [facility] ([id number]) [address] [place] [address] 51581 ALT [Catalytic activity/Vol] 14 U/L Normal 0-31 [facility] Comment on above: Performed By: #### C BCA, CMP, #### [facility] ([id number]) [address] [place] [address] 67984 Anion gap [Moles/Vol] 6 mmol/L Normal 5-15 [facility] Comment on above: Performed By: #### C BCA, CMP, #### [facility] ([id number]) [address] [place] [address] 72683 AST [Catalytic activity/Vol] 20 U/L Normal 0-41 [facility] Comment on above: Performed By: #### C BCA, CMP, #### [facility] ([id number]) [address] [place] [address] Bilirubin [Mass/Vol] 0.6 mg/dL Normal 0.3-1.2 [facility] Comment on above: Performed By: #### C CEE ATKINSON, #### [facility] ([id number]) [address] [place] [address] 64763 Calcium [Mass/Vol] 8.9 mg/dL Normal 8.5-10.5 [facility] Comment on above: Performed By: #### C CEE ATKINSON, #### [facility] ([id number]) [address] [place] [address] 69034 Chloride [Moles/Vol] 104 mmol/L Normal 98-109 [facility] Comment on above: Performed By: #### C CEE ATKINSON, #### [facility] ([id number]) [address] [place] [address] 19915 CO2 [Moles/Vol] 22 mmol/L Normal 22-32 [facility] Comment on above: Performed By: #### C CEE ATKINSON, #### [facility] ([id number]) [address] [place] [address] 96213 Creatinine [Mass/Vol] 0.56 mg/dL Normal 0.40-1.00 [facility] Comment on above: Result Comment: METH OD TRACEABLE TO IDMS STANDARD Performed By: #### C CEE ATKINSON, #### [facility] ([id number]) [address] [place] [address] [place] [address] eGFR (CKD-EPI) NON-RACE DEPENDENT >90 Normal >59 [facility] Comment on above: Result Comment: Reported eGFR is based on the CKD-EPI 2020 equation that does not use a race coefficient. Performed By: #### C CEE ATKINSON, #### [facility] ([id number]) [address] [place] [address] 22884 Glucose [Mass/Vol] 112 mg/dL High 65-99 [facility] Comment on above: Performed By: #### C CHINA [facility], #### [facility] ([id number]) [address] [place] [address] 02558 Potassium [Moles/Vol] 3.2 mmol/L Low 3.5-5.0 [facility] Comment on above: Performed By: #### C CHINA [facility], #### [facility] ([id number]) [address] [place] [address] 35713 Protein [Mass/Vol] 7.6 g/dL Normal 6.0-8.0 [facility] Comment on above: Performed By: #### C CHINA CMP, #### [facility] ([id number]) [address] [place] [address] 96658 Sodium [Moles/Vol] 132 mmol/L Low 134-146 [facility] Comment on above: Performed By: #### C CHINA [facility], #### [facility] ([id number]) [address] [place] [address] 74185 Urea nitrogen [Mass/Vol] 9 mg/dL Normal 5-23 [facility] Comment on above: Performed By: #### C CHINA [facility], #### [facility] ([id number]) [address] [place] [address] 63266 HCG ( test) Ql (U)o n 12-20-2023 Beta HCG ( test) Ql (U) Positive Abnormal NEG [facility] Comment on above: Performed By: #### 2 106-3 #### [facility] ([id number]) [address] [place] [address] 80649 HCG.beta subunit IA 3rd IS Q non 12-20-2023 [place] [address] m[IU]/mL Normal P [facility] Comment on above: Result Comment: NEW REFERENCE RANGE WEEKS (SINCE LMP) MIU/mL 3 WEEKS 5 - 50 4 WEEKS 5 - 426 5 WEEKS 18 - 7,340 6 WEEKS 1,080 - 56,500 7-8 WEEKS 7,650 - 229,000 9-12 WEEKS 25,700 - 288,000 13-16 WEEKS 13,300 - 254,000 17-24 WEEKS 4,060 - 165,400 25-40 WEEKS 3,640 - 117,000 MALES AND NON- FEMALES - <5 MIU/mL This test has been FDA approved for use in only. Elevated levels are not necessarily diagnostic for trophoblastic or nontrophoblastic neoplasms. Performed By: #### C BCA, CMP, [id number] #### [facility] ([id number]) [address] [place] [address] 88582 URINE CULTUREon 12-20-2023 Bacteria identified Cx Nom (U) CULTURE RESULTS NO GROWTH AT <1000 CFU/mL Normal [facility] Comment on above: Performed By: #### 6 30-4 #### [facility] ([id number]) [address] [place] [address], [address] [place] [address] URN MACROSCOPIC NURon 2023 BILIRUBIN ALEKSANDRA Negative Normal NEG [facility] Comment on above: Performed By: #### N UM #### [facility] ([id number]) [address] [place] [address] 82901 BLOOD/HGB ALEKSANDRA Trace Abnormal NEG [facility] Comment on above: Performed By: #### N UM #### [facility] ([id number]) [address] [place] [address] 29124 GLUCOSE ALEKSANDRA Negative Normal NEG [facility] Comment on above: Performed By: #### N UM #### [facility] ([id number]) [address] [place] [address] 48986 KETONES ALEKSANDRA Negative Normal NEG [facility] Comment on above: Performed By: #### N UM #### [facility] ([id number]) [address] [place] [address] 54243 LEUKOCYTE ESTERASE ALEKSANDRA Trace Abnormal NEG [facility] Comment on above: Performed By: #### N UM #### [facility] ([id number]) [address] [place] [address] 76068 NITRITE ALEKSANDRA Negative Normal NEG [facility] Comment on above: Performed By: #### N UM #### [facility] ([id number]) [address] [place] [address] 29154 PH ALEKSANDRA 6.5 Normal 5.0-8.5 [facility] Comment on above: Performed By: #### N UM #### [facility] ([id number]) [address] [place] [address] 21793 PROTEIN ALEKSANDRA Negative Normal NEG [facility] Comment on above: Performed By: #### N UM #### [facility] ([id number]) [address] [place] [address] 89540 SPECIFIC GRAVITY ALEKSANDRA 1.010 Normal 1.003-1.035 [facility] Comment on above: Performed By: #### N UM #### [facility] ([id number]) [address] [place] [address] 91739 UROBILINOGEN ALEKSANDRA 1.0 eu/dL Normal <1.1 [facility] Comment on above: Performed By: #### N UM #### [facility] ([id number]) [address] [place] [address] 06720 Hgb Electrophoresison 2023 Hgb Elect.Interp. Normal Hb electrophoretic pattern. HbA = 97.2% HbA2 = 2.8% Normal Values Normal [facility] Comment on above: Result Comment: (Hem oglobin A= 96.8 to 97.8% Hemoglobin A2= 2.2 to 3.2%) Performed By: #### F EBC, HGBE, B12FOL #### [address] [address] Production Welder: Severino Jacobson MD #### RETCT, CDP, FERI #### [facility] [address] [place] [address] Production Welder: Lukasz Puga MD Pathologist Review: ELECTRONICALLY SIGNED. AUTUMN MENDOZA M.D. Normal [facility] Comment on above: Performed By: #### F EBC, HGBE, B12FOL #### [address] [address] Production Welder: Severino Jacobson MD #### RETCT, CDP, FERI #### [facility] [address] [place] [address] 5[address]80 Production Welder: Lukasz Puga MD Smear to Pathologiston 12-07 Smear to Pathologist ELECTRONICALLY SIGNED. MITA REGAN M.D. [facility] Comment on above: Performed By: #### P ATH #### [address] [address] Production Welder: Severino Jacobson MD B12/Folate Panelon Cobalamin (Vitamin B12) [Mass/Vol] 717 pg/mL Normal 232-1245 [facility] Comment on above: Performed By: #### F EBC, HGBE, B12FOL #### [address] [address] Production Welder: Severino Jacobson MD #### RETCT, CDP, FERI #### [facility] [address] [place] [address]304 Production Welder: Lukasz Puga MD Folic Acid 12.2 ng/mL Normal 4.8-24.2 [facility] Comment on above: Performed By: #### F EBC, HGBE, B12FOL #### [address] [address] Production Welder: Severino Jacobson MD #### VALENCIA CDP, FERI #### [facility] [address] [place] [address] 69663 Production Welder: Lukasz Puga MD CBC with Diffon 12-05-2023 Abs. Atypical Lymphs 0.14 k/uL Normal [facility] Comment on above: Performed By: #### F EBC, HGBE, B12FOL #### [address] [address] Production Welder: Severino Jacobson MD #### VALENCIA CDP, FERI #### [facility] [address] [place] [address] 92805 Production Welder: Lukasz Puga MD Abs. Basophil 0.07 k/uL Normal 0.0-0.2 [facility] Comment on above: Performed By: #### F EBC, HGBE, B12FOL #### [address] [address] Production Welder: Severino Jacobson MD #### RETCT, CDP, FERI #### [facility] [place] [address] Production Welder: Lukasz Puga MD Abs.Imm.Granulocyte 0.00 k/uL Normal 0.00-0.30 [facility] Comment on above: Performed By: #### F EBC, HGBE, B12FOL #### [address] [address] Production Welder: Severino Jacobson MD #### RETCT, CDP, FERI #### [facility] [address] [place] [address]36 Production Welder: Lukasz Puga MD Abs.Neutrophil (Seg) 2.80 k/uL Normal 1.8-7.7 [facility] Comment on above: Performed By: #### F EBC, HGBE, B12FOL #### [address] [address] Production Welder: Severino Jacobson MD #### RETCT, CDP, FERI #### [facility] [address] [place] [address] Production Welder: Lukasz Puga MD Atypical Lymphs 2 % Normal [facility] Comment on above: Performed By: #### F EBC, HGBE, B12FOL #### [address] [address] Production Welder: Severino Jacobson MD #### RETCT, CDP, FERI #### [facility] [address] [place] [address] Production Welder: Lukasz Puga MD Basophils/100 WBC (Bld) 1 % Normal [facility] Comment on above: Performed By: #### F EBC, HGBE, B12FOL #### [address] [address] Production Welder: Severino Jacobson MD #### RETCT, CDP, FERI #### [facility] [address] [place] [address] Production Welder: Lukasz Puga MD Eosinophils (Bld) [#/Vol] 0.07 10*3/uL Normal 0.0-0.4 [facility] Comment on above: Performed By: #### F EBC, HGBE, B12FOL #### [address] [address] Production Welder: Severino Jacobson MD #### RETCT, CDP, FERI #### [facility] [place] [address] Production Welder: Lukasz Puga MD Eosinophils/100 WBC (Bld) 1 % Normal 1-4 [facility] Comment on above: Performed By: #### F EBC, HGBE, B12FOL #### [address] [address] Production Welder: Severino Jacobson MD #### RETCT, CDP, FERI #### [facility] [address] [place] [address] Production Welder: Lukasz Puga MD Immature granulocytes/100 WBC (Bld) 0 % Normal 0 [facility] Comment on above: Performed By: #### F EBC, HGBE, B12FOL #### [address] [address] Production Welder: Severino Jacobson MD #### RETCT, CDP, FERI #### [facility] [address] [place] [address] Production Welder: Lukasz Puga MD Lymphocytes (Bld) [#/Vol] 3.29 10*3/uL Normal 1.0-4.8 [facility] Comment on above: Performed By: #### F EBC, HGBE, B12FOL #### [address] [address] Production Welder: Severino Jacobson MD #### RETCT, CDP, FERI #### [facility] [address] [place] [address] Production Welder: Lukasz Puga MD Lymphocytes/100 WBC (Bld) 47 % High 24-44 [facility] Comment on above: Performed By: #### F EBC, HGBE, B12FOL #### [address] [address] Production Welder: Severino Jacobson MD #### RETCT, CDP, FERI #### [facility] [address] [place] [address] Production Welder: Lukasz Puga MD Monocytes (Bld) [#/Vol] 0.63 10*3/uL Normal 0.2-0.8 [facility] Comment on above: Performed By: #### F EBC, HGBE, B12FOL #### [address] [address] Production Welder: Severino Jacobson MD #### RETCT, CDP, FERI #### [facility] [address] [place] [address] Production Welder: Lukasz Puga MD Monocytes/100 WBC (Bld) 9 % High 1-7 [facility] Comment on above: Performed By: #### F EBC, HGBE, B12FOL #### [address] [address] Production Welder: Severino Jacobson MD #### RETCT, CDP, FERI #### [facility] [address] [place] [address] Production Welder: Lukasz Puga MD Neutrophil (Seg) 40 % Normal 36-66 [facility] Comment on above: Performed By: #### F EBC, HGBE, B12FOL #### [address] [address] Production Welder: Severino Jacobson MD #### RETCT, CDP, FERI #### [facility] [place] [address] Production Welder: Lukasz Puga MD Erythrocyte distribution width (RBC) [Ratio] 12.6 % Normal 11.8-14.4 [facility] Comment on above: Performed By: #### F EBC, HGBE, B12FOL #### [address] [address] Production Welder: Severino Jacobson MD #### RETCT, CDP, FERI #### [facility] [address] [place] [address] Production Welder: Lukasz Puga MD Hematocrit (Bld) [Volume fraction] 31.0 % Low 36.3-47.1 [facility] Comment on above: Performed By: #### F EBC, HGBE, B12FOL #### [address] [address] Production Welder: Severino Jacobson MD #### RETCT, CDP, FERI #### [facility] [address] [place] [address] Production Welder: Lukasz Puag MD Hemoglobin (Bld) [Mass/Vol] 9.9 g/dL Low 11.9-15.1 [facility] Comment on above: Performed By: #### F EBC, HGBE, B12FOL #### [address] [address] Production Welder: Severino Jacobson MD #### RETCT, CDP, FERI #### [facility] [address] [place] [address] Production Welder: Lukasz Puga MD MCH (RBC) [Entitic mass] 29.8 pg Normal 25.2-33.5 [facility] Comment on above: Performed By: #### F EBC, HGBE, B12FOL #### [address] [address] Production Welder: Severino Jacobson MD #### RETCT, CDP, FERI #### [facility] [address] [place] [address] Production Welder: Lukasz Puga MD MCHC (RBC) [Mass/Vol] 31.9 g/dL Normal 28.4-34.8 [facility] Comment on above: Performed By: #### F EBC, HGBE, B12FOL #### [address] [address] Production Welder: Severino Jacobson MD #### RETCT, CDP, FERI #### [facility] [address] [place] [address] Production Welder: Lukasz Puga MD MCV (RBC) [Entitic vol] 93.4 fL Normal 82.6-102.9 [facility] Comment on above: Performed By: #### F EBC, HGBE, B12FOL #### [address] [address] Production Welder: Severino Jacobson MD #### RETCT, CDP, FERI #### [facility] [address] [place] [address] Production Welder: Lukasz Puga MD NRBC Automated 0.0 per 100 WBC Normal 0.0 [facility] Comment on above: Performed By: #### F EBC, HGBE, B12FOL #### [address] [address] Production Welder: Severino Jacobson MD #### RETCT, CDP, FERI #### [facility] [address] [place] [address] Production Welder: Lukasz Puga MD Platelet mean volume (Bld) [Entitic vol] 9.9 fL Normal 8.1-13.5 [facility] Comment on above: Performed By: #### F EBC, HGBE, B12FOL #### [address] [address] Production Welder: Severino Jacobson MD #### RETCT, CDP, FERI #### [facility] [address] [place] [address] Production Welder: Lukasz Puga MD Platelets (Bld) [#/Vol] 296 10*3/uL Normal 138-453 [facility] Comment on above: Performed By: #### F EBC, HGBE, B12FOL #### [address] [address] Production Welder: Severino Jacobson MD #### RETCT, CDP, FERI #### [facility] [place] [address] Production Welder: Lukasz Puga MD RBC (Bld) [#/Vol] 3.32 10*6/uL Low 3.95-5.11 [facility] Comment on above: Performed By: #### F EBC, HGBE, B12FOL #### [address] [address] Production Welder: Severino Jacobson MD #### RETCT, CDP, FERI #### [facility] [address] [place] [address] Production Welder: Lukasz Puga MD WBC (Bld) [#/Vol] 7.0 10*3/uL Normal 3.5-11.3 [facility] Comment on above: Performed By: #### F EBC, HGBE, B12FOL #### [address] [address] Production Welder: Severino Jacobson MD #### RETCT, CDP, FERI #### [facility] [address] [place] [address] Production Welder: Lukasz Puga MD Ferritinon 12-05-2023 Ferritin [Mass/Vol] 39 ng/mL Normal 13-150 [facility] Comment on above: Performed By: #### F EBC, HGBE, B12FOL #### [address] [address] Production Welder: Severino Jacobson MD #### VALENCIA, CDP, FERI #### [facility] [address] [place] [address] Production Welder: Lukasz Puga MD Iron Binding Cap.on 12-05-19 24 % Fe Saturation 14 % Low 20-55 [facility] Comment on above: Performed By: #### F EBC, HGBE, B12FOL #### [address] [address] Production Welder: Severino Jacobson MD #### VALENCIA, CDP, FERI #### [facility] [address] [place] [address] Production Welder: Lukasz Puga MD Iron [Mass/Vol] 42 ug/dL Normal 37-145 [facility] Comment on above: Performed By: #### F EBC, HGBE, B12FOL #### [address] [address] Production Welder: Severino Jacobson MD #### RETCT, CDP, FERI #### [facility] [address] [place] [address] Production Welder: Lukasz Puga MD Total Fe Binding Cap 310 ug/dL Normal 250-450 [facility] Comment on above: Performed By: #### F EBC, HGBE, B12FOL #### [address] [address] Production Welder: Severino Jacobson MD #### RETCT, CDP, FERI #### [facility] [address] [place] [address] Production Welder: Lukasz Puga MD Unbound Fe Bind Cap 268 ug/dL Normal 112-347 [facility] Comment on above: Performed By: #### F EBC, HGBE, B12FOL #### [address] [address] Production Welder: Severino Jacobson MD #### RETCT, CDP, FERI #### [facility] [address] [place] [address] Production Welder: Lukasz Puga MD Retic Counton 12-05-2023 Absolute Retic 0.062 M/uL Normal 0.030-0.080 [facility] Comment on above: Performed By: #### F EBC, HGBE, B12FOL #### [address] [address] Production Welder: Severino Jacobson MD #### VALENCIA, CDP, FERI #### [facility] [address] [place] [address] Production Welder: Lukasz Puga MD IRF 9.6 % Normal 2.7-18.3 [facility] Comment on above: Performed By: #### F EBC, HGBE, B12FOL #### [address] [address] Production Welder: Severino Jacobson MD #### RETCT, CDP, FERI #### [facility] [address] [place] [address] Production Welder: Lukasz Puga MD Retic Count 1.8 % Normal 0.5-1.9 [facility] Comment on above: Performed By: #### F EBC, HGBE, B12FOL #### [address] [phone] Production Welder: Severino Jacobson MD #### RETCT, CDP, FERI #### [facility] [address] [place] [address] [phone] Production Welder: Lukasz Puga MD Retic Hemoglobin 28.8 pg Normal 28.2-35.7 [facility] Comment on above: Performed By: #### F EBC, HGBE, B12FOL #### [address] [phone] Production Welder: Severino Jacobson MD #### VALENCIA, CDP, FERI #### [facility] [address] [place] [address] Production Welder: Lukasz Puga MD Surgical Pathology Reporton 12-05-2023 Surgical Pathology Report (NOTE) [id number] [facility] CONSULTING PATHOLOGISTS [facility] ANATOMIC PATHOLOGY [address] [place] [id number] SURGICAL PATHOLOGY CONSULTATION Patient Name: CADENCE RAMIREZ MR#: [id number] Specimen #[id number] Procedures/Addenda PERIPHERAL BLOOD REPORT Date Ordered: 12/07/2023 Status: Signed Out Date Complete: 12/08/2023 By: Mita Regan M.D. Date Reported: 12/08/2023 INTERPRETATION Peripheral blood: - Normocytic normochromic anemia with unremarkable red blood cell morphology. - White blood cells with normal morphology. No blasts. - Platelets with unremarkable morphology. RESULTS-COMMENTS PERIPHERAL BLOOD STUDY CBC: Please see the electronic health record for CBC parameters ([id number], 12/05/2023, 13:35). PLATELETS: Platelets show normal morphology. LEUKOCYTES: White blood cells show normal morphology. No atypical lymphocytes. No dysplasia. There are no blasts. ERYTHROCYTES: Normocytic normochromic anemia. Red blood cells show normal morphology. Note: The electronic health record is reviewed. Mita Regan M.D. Source: A: Peripheral Blood Normal [facility] CBC with Diffon 11-06-2023 Abs. Basophil 0.04 k/uL Normal 0.00-0.20 [facility] Comment on above: Performed By: #### C MEGHA MIJARES, LIPRF #### [address] [address] Production Welder: Severino Jacobson MD Abs.Imm.Granulocyte <0.03 Normal 0.00-0.30 [facility] Comment on above: Performed By: #### C MEGHA MIJARES, LIPRF #### [place] [address] Production Welder: Severino Jacobson MD Abs.Neutrophil (Seg) 4.76 k/uL Normal 1.50-8.10 [place] Comment on above: Performed By: #### C MEGHA MIJARES, LIPRF #### [address] [address] Production Welder: Severino Jacobson MD Basophils/100 WBC (Bld) 1 % Normal 0-2 [facility] Comment on above: Performed By: #### C MEGHA MIJARES, LIPRF #### [address] [address] Production Welder: Severino Jacobson MD Eosinophils (Bld) [#/Vol] 0.24 10*3/uL Normal 0.00-0.44 [facility] Comment on above: Performed By: #### C DYLLAN CP, LIPRF #### [address] [address] Production Welder: Severino Jacobson MD Eosinophils/100 WBC (Bld) 3 % Normal 1-4 [facility] Comment on above: Performed By: #### C DP, CP, LIPRF #### [address] [address] Production Welder: Severino Jacobson MD Erythrocyte distribution width (RBC) [Ratio] 12.3 % Normal 11.8-14.4 [facility] Comment on above: Performed By: #### C DP, CP, LIPRF #### [place] [address] Production Welder: Severino Jacobson MD Hematocrit (Bld) [Volume fraction] 35.5 % Low 36.3-47.1 [facility] Comment on above: Performed By: #### C DP, CP, LIPRF #### [place] [address] Production Welder: Severino Jacobson MD Hemoglobin (Bld) [Mass/Vol] 11.2 g/dL Low 11.9-15.1 [facility] Comment on above: Performed By: #### C DP, CP, LIPRF #### [place] [address] Production Welder: Severino Jacobson MD Immature granulocytes/100 WBC (Bld) 0 % Normal 0 [facility] Comment on above: Performed By: #### C DP, CP, LIPRF #### [place] [address] Production Welder: Severino Jacobson MD Lymphocytes (Bld) [#/Vol] 2.47 10*3/uL Normal 1.10-3.70 [facility] Comment on above: Performed By: #### C DP, CP, LIPRF #### [address] [address] Production Welder: Severino Jacobson MD Lymphocytes/100 WBC (Bld) 31 % Normal 24-43 [facility] Comment on above: Performed By: #### C DP, CP, LIPRF #### [address] [address] Production Welder: Severino Jacobson MD MCH (RBC) [Entitic mass] 29.6 pg Normal 25.2-33.5 [facility] Comment on above: Performed By: #### C DP, CP, LIPRF #### [place] [address] Production Welder: Severino Jacobson MD MCHC (RBC) [Mass/Vol] 31.5 g/dL Normal 28.4-34.8 [facility] Comment on above: Performed By: #### C DP, CP, LIPRF #### [place] [address] Production Welder: Severino Jacobson MD MCV (RBC) [Entitic vol] 93.9 fL Normal 82.6-102.9 [facility] Comment on above: Performed By: #### C DP, CP, LIPRF #### [place] [address] Production Welder: Severino Jacobson MD Monocytes (Bld) [#/Vol] 0.56 10*3/uL Normal 0.10-1.20 [facility] Comment on above: Performed By: #### C DP, CP, LIPRF #### [place] [address] Production Welder: Severino Jacobson MD Monocytes/100 WBC (Bld) 7 % Normal 3-12 [facility] Comment on above: Performed By: #### C DP, CP, LIPRF #### [place] [address] Production Welder: Severino Jacobson MD Neutrophil (Seg) 58 % Normal 36-65 [facility] Comment on above: Performed By: #### C DP, CP, LIPRF #### [address] [place] [address] Production Welder: Severino Jacobson MD NRBC Automated 0.0 per 100 WBC Normal 0.0 [facility] Comment on above: Performed By: #### C DP, CP, LIPRF #### [address] [address] Production Welder: Severino Jacobson MD Platelet mean volume (Bld) [Entitic vol] 10.5 fL Normal 8.1-13.5 [facility] Comment on above: Performed By: #### C DP, CP, LIPRF #### [address] [address] Production Welder: Severino Jacobson MD Platelets (Bld) [#/Vol] 501 10*3/uL High 138-453 [facility] Comment on above: Performed By: #### C DP, CP, LIPRF #### [address] [address] Production Welder: Severino Jacobson MD RBC (Bld) [#/Vol] 3.78 10*6/uL Low 3.95-5.11 [facility] Comment on above: Performed By: #### C DP, CP, LIPRF #### [address] [address] Production Welder: Severino Jacobson MD WBC (Bld) [#/Vol] 8.1 10*3/uL Normal 3.5-11.3 [facility] Comment on above: Performed By: #### C DP, CP, LIPRF #### [address] [address] Production Welder: Severino Jacobson MD Comp Metabolic Profon 2023 Albumin [Mass/Vol] 4.8 g/dL Normal 3.5-5.2 [facility] Comment on above: Performed By: #### C DP, CP, LIPRF #### [address] [address] Production Welder: Severino Jacobson MD Albumin/Glob Ratio 2.0 Normal 1.0-2.5 [facility] Comment on above: Performed By: #### C DP, CP, LIPRF #### [address] [address] Production Welder: Severino Jacobson MD Alkaline Phos 43 U/L Normal 35-104 [facility] Comment on above: Performed By: #### C DP, CP, LIPRF #### [address] [address] Production Welder: Severino Jacobson MD ALT [Catalytic activity/Vol] 14 U/L Normal 10-35 [facility] Comment on above: Performed By: #### C DP, CP, LIPRF #### [address] [address] Production Welder: Severino Jaocbson MD Anion gap [Moles/Vol] 10 mmol/L Normal 9-16 [facility] Comment on above: Performed By: #### C DP, CP, LIPRF #### [address] [address] Production Welder: Severino Jacobson MD AST [Catalytic activity/Vol] 27 U/L Normal 10-35 [facility] Comment on above: Performed By: #### C DP, CP, LIPRF #### [facility] [employer] [address] [place] [address] Production Welder: Severino Jacboson MD Bilirubin [Mass/Vol] 0.6 mg/dL Normal 0.00-1.20 [place] Comment on above: Performed By: #### C DP, CP, LIPRF #### [facility] [employer] [address] [place] [address] Production Welder: Severino Jacobson MD Calcium [Mass/Vol] 9.5 mg/dL Normal 8.6-10.4 [facility] Comment on above: Performed By: #### C MEGHA MIJARES, LIPRF #### [address] [address] Production Welder: Severino aJcobson MD Chloride [Moles/Vol] 103 mmol/L Normal 98-107 [place] Comment on above: Performed By: #### C MEGHA MIJARES, LIPRF #### [address] [address] Production Welder: Severino Jacobson MD CO2 [Moles/Vol] 26 mmol/L Normal 20-31 [facility] Comment on above: Performed By: #### C MEGHA MIJARES, LIPRF #### [address] [address] Production Welder: Severino Jacobson MD Creatinine [Mass/Vol] 0.8 mg/dL Normal 0.50-0.90 [facility] Comment on above: Performed By: #### C MEGHA MIJARES, LIPRF #### [address] [address] Production Welder: Severino Jacobson MD GFR/1.73 sq M.predicted among non-blacks MDRD (S/P/Bld) [Vol rate/Area] mL/min/{1.73_m2} Normal >60 [facility] Comment on above: Result Comment: These results are not intended for use in patients <18 years of age. eGFR results are calculated without a race factor using the 2020 CKD-EPI equation. Careful clinical correlation is recommended, particularly when comparing to results calculated using previous equations. The CKD-EPI equation is less accurate in patients with extremes of muscle mass, extra-renal metabolism of creatine, excessive creatine ingestion, or following therapy that affects renal tubular secretion. Performed By: #### C MEGHA MIJARES, LIPRF #### [address] [address] Production Welder: Severino Jacobson MD Glucose [Mass/Vol] 90 mg/dL Normal 74-99 [facility] Comment on above: Performed By: #### C DP, CP, LIPRF #### [address] [address] Production Welder: Severino Jacobson MD Potassium [Moles/Vol] 3.9 mmol/L Normal 3.7-5.3 [facility] Comment on above: Performed By: #### C DP, CP, LIPRF #### [address] [address] Production Welder: Severino Jacobson MD Protein [Mass/Vol] 7.7 g/dL Normal 6.6-8.7 [facility] Comment on above: Performed By: #### C DP, CP, LIPRF #### [address] [address] Production Welder: Severino Jacobson MD Sodium [Moles/Vol] 139 mmol/L Normal 136-145 [facility] Comment on above: Performed By: #### C DP, CP, LIPRF #### [address] [address] Production Welder: Severino Jacobson MD Urea nitrogen [Mass/Vol] 12 mg/dL Normal 6-20 [facility] Comment on above: Performed By: #### C DP, CP, LIPRF #### [facility] [employer] [address] [place] [address] Production Welder: Severino Jacobson MD Lipid Prof, Fastingon 2023 Cholesterol [Mass/Vol] 178 mg/dL Normal 0-199 [facility] Comment on above: Result Comment: Cholesterol Guidelines: <200 Desirable 200-240 Borderline >240 Undesirable Performed By: #### C DP, CP, LIPRF #### [address] [place] [address] Production Welder: Severino Jacobson MD Cholesterol in HDL [Mass/Vol] 50 mg/dL Normal >40 [facility] Comment on above: Result Comment: HDL Guidelines: <40 Undesirable 40-59 Borderline >59 Desirable Performed By: #### C DP, CP, LIPRF #### [facility] [employer] [address] [place] [address] Production Welder: Severino Jacobson MD Cholesterol in LDL [Mass/Vol] 115 mg/dL High 0-100 [facility] Comment on above: Result Comment: LDL Guidelines: <100 Desirable 100-129 Near to/above Desirable 130-159 Borderline >159 Undesirable Direct (measured) LDL and calculated LDL are not interchangeable tests. Performed By: #### C DP, CP, LIPRF #### [facility] [employer] [address] [place] [address] Production Welder: Severino Jacobson MD Cholesterol in VLDL [Mass/Vol] 13 mg/dL Normal [facility] Comment on above: Performed By: #### C DP, CP, LIPRF #### [facility] [employer] [address] [place] [address] Production Welder: Severino Jacobson MD Cholesterol.total/Chol esterol in HDL [Mass ratio] 4.0 {ratio} Normal [facility] Comment on above: Performed By: #### C DP, CP, LIPRF #### [facility] [employer] [address] [place] [address] Production Welder: Severino Jacobson MD Triglyceride,Fasting 64 mg/dL Normal 0-149 [place] Comment on above: Result Comment: Triglyceride Guidelines: <150 Desirable 150-199 Borderline 200-499 High >499 Very high Based on AHA Guidelines for fasting triglyceride, February 2012. Performed By: #### C DP, CP, LIPRF #### [facility] [employer] [address] [place] [address] Production Welder: Severino Jacobson MD CBC with Diffon 09-02-2023 Abs. Basophil <0.03 Normal 0.00-0.20 [facility] Comment on above: Performed By: #### C FANNIE MIJARES, CP #### [address] [address] Production Welder: Severino Jacobson MD Abs.Imm.Granulocyte <0.03 Normal 0.00-0.30 [facility] Comment on above: Performed By: #### C FANNIE MIJARES, CP #### [address] [address] Production Welder: Severino Jacobson MD Abs.Neutrophil (Seg) 3.88 k/uL Normal 1.50-8.10 [facility] Comment on above: Performed By: #### C FANNIE MIJARES, CP #### [place] [address] Production Welder: Severino Jacobson MD Basophils/100 WBC (Bld) 0 % Normal 0-2 [facility] Comment on above: Performed By: #### C FANNIE MIJARES, CP #### [address] [address] Production Welder: Severino Jacobson MD Eosinophils (Bld) [#/Vol] 0.18 10*3/uL Normal 0.00-0.44 [facility] Comment on above: Performed By: #### C FANNIE MIJARES, CP #### [address] [address] Production Welder: Severino Jacobson MD Eosinophils/100 WBC (Bld) 3 % Normal 1-4 [facility] Comment on above: Performed By: #### C FANNIE MIJARES, CP #### [address] [address] Production Welder: Severino aJcobson MD Erythrocyte distribution width (RBC) [Ratio] 12.6 % Normal 11.8-14.4 [facility] Comment on above: Performed By: #### C DP LIPRF, CP #### [address] [address] Production Welder: Severino Jacobson MD Hematocrit (Bld) [Volume fraction] 34.6 % Low 36.3-47.1 [facility] Comment on above: Performed By: #### C DP, LIPRF, CP #### [place] [address] Production Welder: Severino Jacobson MD Hemoglobin (Bld) [Mass/Vol] 10.8 g/dL Low 11.9-15.1 [facility] Comment on above: Performed By: #### C DP LIPRF, CP #### [address] [address] Production Welder: Severino Jacobson MD Immature granulocytes/100 WBC (Bld) 0 % Normal 0 [facility] Comment on above: Performed By: #### C FANNIE MIJARES, CP #### [place] [address] Production Welder: Severino Jacobson MD Lymphocytes (Bld) [#/Vol] 2.64 10*3/uL Normal 1.10-3.70 [facility] Comment on above: Performed By: #### C DP LIPRF, CP #### [address] [address] Production Welder: Severino Jacobson MD Lymphocytes/100 WBC (Bld) 37 % Normal 24-43 [facility] Comment on above: Performed By: #### C DP LIPRF, CP #### [address] [address] Production Welder: Severino Jacobson MD MCH (RBC) [Entitic mass] 29.7 pg Normal 25.2-33.5 [facility] Comment on above: Performed By: #### C DP LIPRF, CP #### [place] [address] Production Welder: Severino Jacobson MD MCHC (RBC) [Mass/Vol] 31.2 g/dL Normal 28.4-34.8 [facility] Comment on above: Performed By: #### C DP LIPRF, CP #### [place] [address] Production Welder: Severino Jacobson MD MCV (RBC) [Entitic vol] 95.1 fL Normal 82.6-102.9 [facility] Comment on above: Performed By: #### C DYLLAN LIPRF, CP #### [place] [address] Production Welder: Severino Jacobson MD Monocytes (Bld) [#/Vol] 0.41 10*3/uL Normal 0.10-1.20 [facility] Comment on above: Performed By: #### C FANNIE MIJARES, CP #### [place] [address] Production Welder: Severino Jacobson MD Monocytes/100 WBC (Bld) 6 % Normal 3-12 [facility] Comment on above: Performed By: #### C DYLLAN LIPRF, CP #### [place] [address] Production Welder: Severino Jacobson MD Neutrophil (Seg) 54 % Normal 36-65 [facility] Comment on above: Performed By: #### C DYLLAN LIPRF, CP #### [place] [address] Production Welder: Severino Jacobson MD NRBC Automated 0.0 per 100 WBC Normal 0.0 [facility] Comment on above: Performed By: #### C DP LIPRF, CP #### [address] [address] Production Welder: Severino Jacobson MD Platelet mean volume (Bld) [Entitic vol] 10.7 fL Normal 8.1-13.5 [facility] Comment on above: Performed By: #### C EKTA MIJARESRF, CP #### [address] [address] Production Welder: Severino Jacobson MD Platelets (Bld) [#/Vol] 460 10*3/uL High 138-453 [facility] Comment on above: Performed By: #### C FANNIE MIJARES, CP #### [address] [address] Production Welder: Severino Jacobson MD RBC (Bld) [#/Vol] 3.64 10*6/uL Low 3.95-5.11 [facility] Comment on above: Performed By: #### C FANNIE MIJARES, CP #### [address] [address] Production Welder: Severino Jacobson MD WBC (Bld) [#/Vol] 7.2 10*3/uL Normal 3.5-11.3 [facility] Comment on above: Performed By: #### C FANNIE MIJARES, CP #### [address] [address] Production Welder: Severino Jacobson MD Comp Metabolic Profon 2023 Albumin [Mass/Vol] 4.4 g/dL Normal 3.5-5.2 [facility] Comment on above: Performed By: #### C FANNIE MIJARES, CP #### [address] [address] Production Welder: Severino Jacobson MD Albumin/Glob Ratio 2.0 Normal 1.0-2.5 [facility] Comment on above: Performed By: #### C DP, LIPRF, CP #### [facility] [address] [place] [address] Production Welder: Severino Jacobson MD Alkaline Phos 35 U/L Normal 35-104 [facility] Comment on above: Performed By: #### C DP, LIPRF, CP #### [address] [address] Production Welder: Severino Jacobson MD ALT [Catalytic activity/Vol] 12 U/L Normal 10-35 [facility] Comment on above: Performed By: #### C DP LIPRF, CP #### [facility] [employer] [address] [place] [address] Production Welder: Severino Jacobson MD Anion gap [Moles/Vol] 9 mmol/L Normal 9-16 [facility] Comment on above: Performed By: #### C DP LIPRF, CP #### [address] [address] Production Welder: Severino Jacobson MD AST [Catalytic activity/Vol] 25 U/L Normal 10-35 [facility] Comment on above: Performed By: #### C DP, LIPRF, CP #### [facility] [address] [place] [address] Production Welder: Severino Jacobson MD Bilirubin [Mass/Vol] 0.6 mg/dL Normal 0.00-1.20 [place] Comment on above: Performed By: #### C DP, LIPRF, CP #### [facility] [address] [place] [address] Production Welder: Severino Jacobson MD Calcium [Mass/Vol] 8.9 mg/dL Normal 8.6-10.4 [facility] Comment on above: Performed By: #### C DP, LIPRF, CP #### [facility] [employer] [address] [place] [address] Production Welder: Severino Jacobson MD Chloride [Moles/Vol] 107 mmol/L Normal 98-107 [place] Comment on above: Performed By: #### C FANNIE MIJARES CP #### [facility] [address] [place] [address] Production Welder: Severino Jacobson MD CO2 [Moles/Vol] 24 mmol/L Normal 20-31 [facility] Comment on above: Performed By: #### C FANNIE MIJARES CP #### [facility] [address] [place] [address] Production Welder: Severino Jacobson MD Creatinine [Mass/Vol] 0.7 mg/dL Normal 0.50-0.90 [facility] Comment on above: Performed By: #### C FANNIE MIJARES CP #### [address] [address] Production Welder: Severino Jacobson MD GFR/1.73 sq M.predicted among non-blacks MDRD (S/P/Bld) [Vol rate/Area] mL/min/{1.73_m2} Normal >60 [facility] Comment on above: Result Comment: These results are not intended for use in patients <18 years of age. eGFR results are calculated without a race factor using the 2020 CKD-EPI equation. Careful clinical correlation is recommended, particularly when comparing to results calculated using previous equations. The CKD-EPI equation is less accurate in patients with extremes of muscle mass, extra-renal metabolism of creatine, excessive creatine ingestion, or following therapy that affects renal tubular secretion. Performed By: #### C FANNIE MIJARES CP #### [address] [address] Production Welder: Severino Jacobson MD Glucose [Mass/Vol] 97 mg/dL Normal 74-99 [facility] Comment on above: Performed By: #### C FANNIE MIJARES CP #### [address] [place] [address] Production Welder: Severino Jacobson MD Potassium [Moles/Vol] 4.0 mmol/L Normal 3.7-5.3 [facility] Comment on above: Performed By: #### C DP, LIPRF, CP #### [address] [address] Production Welder: Severino Jacobson MD Protein [Mass/Vol] 7.3 g/dL Normal 6.6-8.7 [facility] Comment on above: Performed By: #### C DP, LIPRF, CP #### [address] [address] Production Welder: Severino Jacobson MD Sodium [Moles/Vol] 140 mmol/L Normal 136-145 [facility] Comment on above: Performed By: #### C DP, LIPRF, CP #### [address] [address] Production Welder: Severino Jacobson MD Urea nitrogen [Mass/Vol] 12 mg/dL Normal 6-20 [facility] Comment on above: Performed By: #### C DP, LIPRF, CP #### [facility] [employer] [address] [place] [address] Production Welder: Severino Jacobson MD Lipid Prof, Fastingon 2023 Cholesterol [Mass/Vol] 164 mg/dL Normal 0-199 [facility] Comment on above: Result Comment: Cholesterol Guidelines: <200 Desirable 200-240 Borderline >240 Undesirable Performed By: #### C DP, LIPRF, CP #### [facility] [employer] [address] [place] [address] Production Welder: Severino Jacobson MD Cholesterol in HDL [Mass/Vol] 52 mg/dL Normal >40 [facility] Comment on above: Result Comment: HDL Guidelines: <40 Undesirable 40-59 Borderline >59 Desirable Performed By: #### C DP, LIPRF, CP #### [facility] [employer] [address] [place] [address] Production Welder: Severino Jacobson MD Cholesterol in LDL [Mass/Vol] 102 mg/dL High 0-100 [facility] Comment on above: Result Comment: LDL Guidelines: <100 Desirable 100-129 Near to/above Desirable 130-159 Borderline >159 Undesirable Direct (measured) LDL and calculated LDL are not interchangeable tests. Performed By: #### C DP LIPRF, CP #### [facility] [employer] [address] [place] [address] Production Welder: Severino Jacobson MD Cholesterol in VLDL [Mass/Vol] 10 mg/dL Normal [facility] Comment on above: Performed By: #### C DYLLAN LIPRF, CP #### [facility] [employer] [address] [place] [address] Production Welder: Severino Jacobson MD Cholesterol.total/Chol esterol in HDL [Mass ratio] 3.0 {ratio} Normal [facility] Comment on above: Performed By: #### C DYLLAN LIPRF, CP #### [facility] [employer] [address] [place] [address] Production Welder: Severino Jacobson MD Triglyceride,Fasting 49 mg/dL Normal 0-149 [place] Comment on above: Result Comment: Triglyceride Guidelines: <150 Desirable 150-199 Borderline 200-499 High >499 Very high Based on AHA Guidelines for fasting triglyceride, February 2012. Performed By: #### C DP, LIPRF, CP #### [facility] [employer] [address] [place] [address] Production Welder: Severino Jacobson MD [facility] SARS/FLU A+B/RSV by NAAT/Molecular FLU A PCR Negative (qualifier value) FLU B PCR Positive (qualifier value) RSV by PCR Negative (qualifier value) SARS CoV 2 Not detected (qualifier value) NOTE The Xpert Xpress SARS-CoV-2/Flu/RSV Plus test is a rapid, multiplexed real-time RT-PCR test intended for the simultaneous qualitative detection and differentiation of SARS-CoV-2, influenza A, influenza B and respiratory syncytial virus (RSV) viral RNA from individuals suspected of respiratory viral infection consistent with COVID-19 by their healthcare provider. This test has not been validated in asymptomatic patients. The Xpert Xpress SARS-CoV-2 test is intended for use by qualified and trained operators who are performing tests using either [employer] or [employer] systems and is limited to laboratories that meet the CLIA requirements to perform high and moderate complexity tests. The Xpert Xpress SARS-CoV-2/Flu/RSV Plus is only for use under the Food and Drug Administration's Emergency Use Authorization. Results are for the simultaneous detection and differentiation of SARS-CoV-2, influenza A, influenza B and RSV nucleic acids in clinical specimens. SARS-CoV-2, influenza A, influenza B and RSV RNA identified by this test are generally detectable in upper respiratory samples during the acute phase of infection. Positive results are indicative of the presence of the identified virus, but do not rule out bacterial infection or co-infection with other pathogens not detected by this test. Clinical correlation with patient history and other diagnostic information is necessary to determine patient infection status. The agent detected may not be the definite cause of disease. Negative results do not preclude SARS-CoV-2, influenza A, influenza B and RSV infection and should not be used as the sole basis for treatment or other patient management decisions. Negative results must be combined with clinical observations, patient history and epidemiological information. An Invalid result may occur with specimen-associated inhibition unable to be resolved with specimen repeat. Fact Sheet for Healthcare Providers: https://www.fda.gov/m edia/817020/download Fact Sheet for Patients: https://www.fda.gov/m edia/343527/download Normal [facility] Comment on above: Performed By: #### C OVFLR #### [facility] ([id number]) [address] [facility], [place] [address] QuantiFERON TBon 04-14-2023 Quanti Americo minus NIL >10.00 Normal [facility] Comment on above: Performed By: #### A QF #### [facility] [address] [place] [address] Production Welder: Tai Lopez MD Quanti TB Gold Plus Negative Normal Negative [facility] Comment on above: Result Comment: (NOT E) Interpretive Data: Quantiferon TB Gold Plus Interferon gamma release is measured for specimens from each of the four collection tubes. A qualitative result (Negative, Positive, or Indeterminate) is based on interpretation of the four values, NIL, MITOGEN minus NIL (MITOGEN-NIL), TB1 minus NIL (TB1-NIL), and TB2 minus NIL (TB2-NIL). The NIL value represents nonspecific reactivity produced by the patient specimen. The MITOGEN-NIL value serves as the positive control for the patient specimen, demonstrating successful lymphocyte activity. The TB1-NIL tube specifically detects CD4+ lymphocyte reactivity, specifically stimulated by the TB1 antigens. The TB2-NIL tube detects both CD4+ and CD8+ lymphocyte reactivity, stimulated by TB2 antigens. An overall Negative result does not completely rule out TB infection. A false-positive result in the absence of other clinical evidence of TB infection is not uncommon. Refer to: Updated Guidelines for Using Interferon Gamma Release Assays to Detect Mycobacterium tuberculosis Infection --- [place], 2010 (http://www.cdc.gov/mmwr/preview/mmwrhtml/ha9790f8.htm), for more information concerning test performance in low-prevalence populations and use in occupational screening. Performed By: #### A QF #### [facility] [address] [place], [place] [id number] Production Welder: Tai Lopez MD Quanti TB1 minus NIL 0.10 IU/mL Normal 0.00-0.34 [place] Comment on above: Performed By: #### A QF #### [facility] [address] [place], [place] [id number] Production Welder: Tai Lopez MD Quanti TB2 minus NIL 0.10 IU/mL Normal 0.00-0.34 [place] Comment on above: Performed By: #### A QF #### [facility] [address] [place], [place] [id number] Production Welder: Tai Lopez MD QuantiFERON NIL 0.03 IU/mL Normal [facility] Comment on above: Result Comment: (NOT E) Performed By: [facility] [address] [place] [address] Meter Supervisor: Royal Banda MD, PhD CLIA Number: [id number] Performed By: #### A QF #### [address] [id number] Production Welder: Tai Lopez MD CBC with Diffon 04-11-2023 Abs. Basophil 0.05 k/uL Normal 0.00-0.20 [facility] Comment on above: Performed By: #### L IPRF, CDP, PHEP, CP, HIVCMB #### [place] [address] Production Welder: Severino Jacobson MD Abs.Imm.Granulocyte 0.03 k/uL Normal 0.00-0.30 [facility] Comment on above: Performed By: #### L IPRF, CDP, PHEP, CP, HIVCMB #### [place] [address] Production Welder: Severino Jacobson MD Abs.Neutrophil (Seg) 4.20 k/uL Normal 1.50-8.10 [place] Comment on above: Performed By: #### L IPRF, CDP, PHEP, CP, HIVCMB #### [place] [address] Production Welder: Severino Jacobson MD Basophils/100 WBC (Bld) 1 % Normal 0-2 [facility] Comment on above: Performed By: #### L IPRF, CDP, PHEP, CP, HIVCMB #### [address] [address] Production Welder: Severino Jacobson MD Eosinophils (Bld) [#/Vol] 0.36 10*3/uL Normal 0.00-0.44 [facility] Comment on above: Performed By: #### L IPRF, CDP, PHEP, CP, HIVCMB #### [facility] [employer] [address] [place] [address] Production Welder: Severino Jacobson MD Eosinophils/100 WBC (Bld) 5 % High 1-4 [facility] Comment on above: Performed By: #### L IPRF, CDP, PHEP, CP, HIVCMB #### [facility] [employer] [address] [place] [address] Production Welder: Severino Jacobson MD Erythrocyte distribution width (RBC) [Ratio] 11.6 % Low 11.8-14.4 [facility] Comment on above: Performed By: #### L IPRF, CDP, PHEP, CP, HIVCMB #### [address] [address] Production Welder: Severino Jacobson MD Hematocrit (Bld) [Volume fraction] 34.3 % Low 36.3-47.1 [facility] Comment on above: Performed By: #### L IPRF, CDP, PHEP, CP, HIVCMB #### [facility] [employer] [address] [place] [address] Production Welder: Severino Jacobson MD Hemoglobin (Bld) [Mass/Vol] 10.9 g/dL Low 11.9-15.1 [facility] Comment on above: Performed By: #### L IPRF, CDP, PHEP, CP, HIVCMB #### [facility] [address] [place] [address] Production Welder: Severino Jacobson MD Immature granulocytes/100 WBC (Bld) 0 % Normal 0 [facility] Comment on above: Performed By: #### L IPRF, CDP, PHEP, CP, HIVCMB #### [address] [address] Production Welder: Severino Jacobson MD Lymphocytes (Bld) [#/Vol] 2.55 10*3/uL Normal 1.10-3.70 [facility] Comment on above: Performed By: #### L IPRF, CDP, PHEP, CP, HIVCMB #### [address] [place] [address] Production Welder: Severino Jacobson MD Lymphocytes/100 WBC (Bld) 33 % Normal 24-43 [facility] Comment on above: Performed By: #### L IPRF, CDP, PHEP, CP, HIVCMB #### [place] [address] Production Welder: Severino Jacobson MD MCH (RBC) [Entitic mass] 30.1 pg Normal 25.2-33.5 [facility] Comment on above: Performed By: #### L IPRF, CDP, PHEP, CP, HIVCMB #### [address] [address] Production Welder: Severino Jacobson MD MCHC (RBC) [Mass/Vol] 31.8 g/dL Normal 28.4-34.8 [facility] Comment on above: Performed By: #### L IPRF, CDP, PHEP, CP, HIVCMB #### [address] [address] Production Welder: Severino Jacobson MD MCV (RBC) [Entitic vol] 94.8 fL Normal 82.6-102.9 [facility] Comment on above: Performed By: #### L IPRF, CDP, PHEP, CP, HIVCMB #### [address] [address] Production Welder: Severino Jacobson MD Monocytes (Bld) [#/Vol] 0.55 10*3/uL Normal 0.10-1.20 [facility] Comment on above: Performed By: #### L IPRF, CDP, PHEP, CP, HIVCMB #### [address] [address] Production Welder: Severino Jacobson MD Monocytes/100 WBC (Bld) 7 % Normal 3-12 [facility] Comment on above: Performed By: #### L IPRF, CDP, PHEP, CP, HIVCMB #### [address] [address] Production Welder: Severino Jacobson MD Neutrophil (Seg) 54 % Normal 36-65 [facility] Comment on above: Performed By: #### L IPRF, CDP, PHEP, CP, HIVCMB #### [address] [address] Production Welder: Severino Jacobson MD NRBC Automated 0.0 per 100 WBC Normal 0.0 [facility] Comment on above: Performed By: #### L IPRF, CDP, PHEP, CP, HIVCMB #### [address] [address] Production Welder: Severino Jacobson MD Platelet mean volume (Bld) [Entitic vol] 11.0 fL Normal 8.1-13.5 [facility] Comment on above: Performed By: #### L IPRF, CDP, PHEP, CP, HIVCMB #### [address] [address] Production Welder: Severino Jacobson MD Platelets (Bld) [#/Vol] 382 10*3/uL Normal 138-453 [facility] Comment on above: Performed By: #### L IPRF, CDP, PHEP, CP, HIVCMB #### [address] [address] Production Welder: Severino Jacobson MD RBC (Bld) [#/Vol] 3.62 10*6/uL Low 3.95-5.11 [facility] Comment on above: Performed By: #### L IPRF, CDP, PHEP, CP, HIVCMB #### [facility] [employer] [address] [place] [address] Production Welder: Severino Jacobson MD WBC (Bld) [#/Vol] 7.7 10*3/uL Normal 3.5-11.3 [facility] Comment on above: Performed By: #### L IPRF, CDP, PHEP, CP, HIVCMB #### [address] [address] Production Welder: Severino Jacobson MD Comp Metabolic Profon 2022 Albumin [Mass/Vol] 4.4 g/dL Normal 3.5-5.2 [facility] Comment on above: Performed By: #### L IPRF, CDP, PHEP, CP, HIVCMB #### [facility] [employer] [address] [place] [address] Production Welder: Severino Jacobson MD Albumin/Glob Ratio 2.0 Normal 1.0-2.5 [facility] Comment on above: Performed By: #### L IPRF, CDP, PHEP, CP, HIVCMB #### [facility] [employer] [address] [place] [address] Production Welder: Severino Jacobson MD Alkaline Phos 39 U/L Normal 35-104 [facility] Comment on above: Performed By: #### L IPRF, CDP, PHEP, CP, HIVCMB #### [facility] [employer] [address] [place] [address] Production Welder: Severino Jacobson MD ALT [Catalytic activity/Vol] 10 U/L Normal 10-35 [facility] Comment on above: Performed By: #### L IPRF, CDP, PHEP, CP, HIVCMB #### [address] [address] Production Welder: Severino Jacobson MD Anion gap [Moles/Vol] 9 mmol/L Normal 9-16 [facility] Comment on above: Performed By: #### L IPRF, CDP, PHEP, CP, HIVCMB #### [address] [address] Production Welder: Severino Jacobson MD AST [Catalytic activity/Vol] 22 U/L Normal 10-35 [facility] Comment on above: Performed By: #### L IPRF, CDP, PHEP, CP, HIVCMB #### [address] [address] Production Welder: Severino Jacobson MD Bilirubin [Mass/Vol] 0.3 mg/dL Normal 0.00-1.20 [place] Comment on above: Performed By: #### L IPRF, CDP, PHEP, CP, HIVCMB #### [address] [address] Production Welder: Severino Jacobson MD Calcium [Mass/Vol] 9.3 mg/dL Normal 8.6-10.4 [facility] Comment on above: Performed By: #### L IPRF, CDP, PHEP, CP, HIVCMB #### [address] [address] Production Welder: Severino Jacobson MD Chloride [Moles/Vol] 104 mmol/L Normal 98-107 [place] Comment on above: Performed By: #### L IPRF, CDP, PHEP, CP, HIVCMB #### [address] [address] Production Welder: Severino Jacobson MD CO2 [Moles/Vol] 27 mmol/L Normal 20-31 [facility] Comment on above: Performed By: #### L IPRF, CDP, PHEP, CP, HIVCMB #### [address] [address] Production Welder: Severino Jacobson MD Creatinine [Mass/Vol] 0.7 mg/dL Normal 0.50-0.90 [facility] Comment on above: Performed By: #### L IPRF, CDP, PHEP, CP, HIVCMB #### [address] [address] Production Welder: Severino Jacobson MD GFR/1.73 sq M.predicted among non-blacks MDRD (S/P/Bld) [Vol rate/Area] mL/min/{1.73_m2} Normal >60 [facility] Comment on above: Result Comment: These results are not intended for use in patients <18 years of age. eGFR results are calculated without a race factor using the 2020 CKD-EPI equation. Careful clinical correlation is recommended, particularly when comparing to results calculated using previous equations. The CKD-EPI equation is less accurate in patients with extremes of muscle mass, extra-renal metabolism of creatine, excessive creatine ingestion, or following therapy that affects renal tubular secretion. Performed By: #### L IPRF, CDP, PHEP, CP, HIVCMB #### [address] [address] Production Welder: Severino Jacobson MD Glucose [Mass/Vol] 82 mg/dL Normal 74-99 [facility] Comment on above: Performed By: #### L IPRF, CDP, PHEP, CP, HIVCMB #### [facility] [employer] [address] [place] [phone] Production Welder: Severino Jacobson MD Potassium [Moles/Vol] 3.8 mmol/L Normal 3.7-5.3 [facility] Comment on above: Performed By: #### L IPRF, CDP, PHEP, CP, HIVCMB #### [address] [address] Production Welder: Severino Jacobson MD Protein [Mass/Vol] 7.2 g/dL Normal 6.6-8.7 [facility] Comment on above: Performed By: #### L IPRF, CDP, PHEP, CP, HIVCMB #### [facility] [employer] [address] [place] [phone] Production Welder: Severino Jacobson MD Sodium [Moles/Vol] 140 mmol/L Normal 136-145 [facility] Comment on above: Performed By: #### L IPRF, CDP, PHEP, CP, HIVCMB #### [address] [address] Production Welder: Severino Jacobson MD Urea nitrogen [Mass/Vol] 14 mg/dL Normal 6-20 [facility] Comment on above: Performed By: #### L IPRF, CDP, PHEP, CP, HIVCMB #### [address] [address] Production Welder: Severino Jacobson MD HIV Ag/Abon 04-11-2023 HIV Ag/Ab Non-Reactive Normal [facility] Comment on above: Result Comment: No l aboratory evidence of HIV infection. If acute HIV infection is suspected, consider testing for HIV-1 RNA. Performed By: #### C DP, CP, LIPRF #### [address] [address] Production Welder: Severino Jacobson MD Hepatitis Acute [facility] 04-11 Hep A Ab,IgM Non-Reactive Normal NR [facility] Comment on above: Performed By: #### L IPRF, CDP, PHEP, CP, HIVCMB #### [facility] [employer] [address] [place] [phone] Production Welder: Severino Jacobson MD Hep B Core Ab,IgM Non-Reactive Normal NR [facility] Comment on above: Performed By: #### L IPRF, CDP, PHEP, CP, HIVCMB #### [address] [address] Production Welder: Severino Jacobson MD Hep B Surf Ag Non-Reactive Normal NR [facility] Comment on above: Performed By: #### L IPRF, CDP, PHEP, CP, HIVCMB #### [address] [address] Production Welder: Severino Jacobson MD Hep C Ab Non-Reactive Normal NR [facility] Comment on above: Result Comment: The hepatitis C procedure used in our laboratory is a Chemiluminescent test specific for three recombinant HCV antigens. A negative anti-HCV result indicates that the antibodies to hepatitis C virus are not present at this time. Individuals with reactive anti-HCV should be considered infected and infectious until proven otherwise. Confirmation of all equivocal or reactive results is recommended by ordering HCV RNA by PCR. Performed By: #### L IPRF, CDP, PHEP, CP, HIVCMB #### [address] [address] Production Welder: Severino Jacobson MD Lipid Prof, Fastingon 2022 Cholesterol [Mass/Vol] 155 mg/dL Normal 0-199 [facility] Comment on above: Result Comment: Cholesterol Guidelines: <200 Desirable 200-240 Borderline >240 Undesirable Performed By: #### C DP, CP, LIPRF #### [address] [address] Production Welder: Severino Jacobson MD Cholesterol in HDL [Mass/Vol] 49 mg/dL Normal >40 [facility] Comment on above: Result Comment: HDL Guidelines: <40 Undesirable 40-59 Borderline >59 Desirable Performed By: #### C DP, CP, LIPRF #### [address] [phone] Production Welder: Severino Jacobson MD Cholesterol in LDL [Mass/Vol] 98 mg/dL Normal 0-100 [facility] Comment on above: Result Comment: LDL Guidelines: <100 Desirable 100-129 Near to/above Desirable 130-159 Borderline >159 Undesirable Direct (measured) LDL and calculated LDL are not interchangeable tests. Performed By: #### C MEGHA MIJARES, LIPRF #### [facility] [employer] [address] [place] [phone] Production Welder: Severino Jacobson MD Cholesterol in VLDL [Mass/Vol] 8 mg/dL Normal [facility] Comment on above: Performed By: #### C MEGHA MIJARES, LIPRF #### [facility] [address] [place] [phone] Production Welder: Severino Jacobson MD Cholesterol.total/Chol esterol in HDL [Mass ratio] 3.0 {ratio} Normal [facility] Comment on above: Performed By: #### C MEGHA MIJARES, LIPRF #### [facility] [employer] [address] [place] [phone] Production Welder: Severino Jacobson MD Triglyceride,Fasting 38 mg/dL Normal 0-149 [place] Comment on above: Result Comment: Triglyceride Guidelines: <150 Desirable 150-199 Borderline 200-499 High >499 Very high Based on AHA Guidelines for fasting triglyceride, February 2012. Performed By: #### C MEGHA MIJARES, LIPRF #### [address] [address] Production Welder: Severino Jacobson MD SURGICAL 03-10-2023 SURGICAL [place] [facility] [id number] Assoc. Page 1 of [address] [place] [address] PROC: 03/10/2023 [place] RECV: 03/13/[address] RPTD: 03/21/2023 [place] [address] LOC: [facility] ACCT: SEX: F [id number] AGE: 32 Y : 1990 PATHOLOGY REPORT ATTN: BERNIE PULIDO PA-C REQ: BERNIE PULIDO PA-C Clinical Information: ALOPECIA FINAL DIAGNOSIS: Skin, right scalp, biopsy: No evidence of an active inflammatory alopecia. Increased follicular michael and catagen/telogen follicles. Please see microscopic description. Specimen: SKIN BIOPSY, SCALP RIGHT Gross Examination: The container is labeled Cadence Leija scalp, right. Received in formalin is an unoriented punch biopsy of pigmented skin measuring about 0.2 cm in diameter x 0.2 cm. The specimen is submitted as received. 1 ns. ALP/DKR:v_alpal_i Microscopic Examination: Sections show multiple terminal anagen hair follicles with a single focus of perifollicular chronic inflammation at the level of the isthmus. Numerous serial sections reveal the presence of few follicular michael, a single miniaturized follicle and few catagen/telogen follicles. There is no inflammatory infiltrate involving the follicular michael or hair bulbs, which extend into the superficial subcutis. Although there is no active inflammation to suggest an ongoing inflammatory alopecia, there is a shift toward follicular michael and catagen/telogen follicles. The findings could be seen in late stage alopecia areata, however, the presence of several normal-appearing hair follicles and shafts argues against this. Diagnostic features of lichen planopilaris are not appreciated on sections examined. Clinical correlation is recommended. [id number] AILEEN DE LA PAZ M.D., F.C.A.P [facility]/ [facility] Printed on: 03/21/[address] [place] [address] Original print date: 03/21/2023 Normal [facility] US PREG ANATOMY SINGLEon US PREG ANATOMY SINGLE EXAMINATION: US P REG ANATOMY SINGLE HISTORY: screening COMPARISON: No relevant comparison available. TECHNIQUE: Transabdominal sonographic examination was performed for obstetrical and evaluation. FINDINGS: Number: 1 Heart Rate: 142.9 bpm H.B. /min position: Breech presentation, longitudinal lie Amniotic Fluid Volume: Subjectively normal Placental Location: Anterior, grade 0. Placental edge 3.6 cm from the cervical os Cervix Length: 4.7 cm, closed Normally visualized anatomy: Cerebellum, choroid plexus, cisterna magna, lateral cerebral ventricles, orbits, midline falx, hard palate, four-chamber heart, RVOT, LVOT, stomach, kidneys, bladder, umbilical cord insertion into the abdomen, three-vessel cord, cervical spine, thoracic spine, lumbar spine, sacral spine, right upper extremity, left upper extremity, right lower extremity, left lower extremity Suboptimally visualized anatomy: None BIOMETRY: BPD: 6.2 cm 25 weeks 2 days , 9% HC: 23.5 cm 25 weeks 3 days, 6% AC: 21.0 cm 25 weeks 4 days, 70% FL: 4.9 cm 26 weeks 4 days, 41% EFW:867.0 grams; 1 lb. 15 oz., 20% FL/AC: 23.5 FL/BPD: 79.2 HC/AC: 1.1 GESTATIONAL AGE: Age by EDC: 26 weeks 3 days SURYA by EDC: 11/09/2021 Age by current US: 25 weeks 5 days SURYA by current US: 11/14/2021 IMPRESSION: Head circumference at the 6th percentile BPD of the 9th percentile Low lying placenta, placental edge 3.6 cm from the internal cervical os, *Reference: [employer]UM Practice Guideline for the performance of Obstetric Ultrasound Examinations, February 23, 2007. Electronically authenticated by: VINICIUS GARCIA Date: 2021-08-06 21:37 Normal [facility] CULTURE URINEon 04-25-2021 CULTURE URINE Isolate 1 Escherichia coli >100,000 cfu/mL of ORGANISM 1 Escherichia coli ANTIBIOTIC M.I.C RX STATUS Ampicillin >=32 R F Ampicillin/Sulbactam >=32 R F Piperacillin/Tazobact am <=4 S F Cefazolin <=4 S F Ceftazidime <=1 S F Ceftriaxone <=1 S F Ertapenem <=0.5 S F Imipenem <=0.25 S F Amikacin <=2 S F Gentamicin <=1 S F Tobramycin <=1 S F Ciprofloxacin <=0.25 S F Levofloxacin <=0.12 S F Nitrofurantoin <=16 S F Trimethoprim/Sulfamet hoxazole <=20 S F Normal [facility] Comment on above: Performed By: #### U RCX ####[facility] [id number] [place], [place] [address]JdChristi Smith HEP B SURFACE ANTIGEN SCREEN on 04-24-2021 HBsAg Screen Negative Normal Negative [facility] Comment on above: Performed By: #### H BSANS #### [facility] [address] [address] [address] Purvi Smith HIV 1 AND 2 WITH REFLEXon HIV Screen 4th Generation wRfx Non-Reactive Normal Non Reactive [facility] Comment on above: Performed By: #### H IV12 ####[facility] [id number] [address]Dr. Purvi Smith RPR QUANTon 04-24-2021 Rapid Plasma Reagin, Quant Non-Reactive Normal NonRea<1:1 [facility] Comment on above: Performed By: #### R PRQ #### [facility] [address] [place] [address] Dr. Purvi Smith RUBELLA AB IGGon 04-24-2021 Rubella Antibodies, IgG 1.35 index Normal Immune >0.99 [facility] Comment on above: Result Comment: Non- immune <0.90 Equivocal 0.90 - 0.99 Immune >0.99 Performed By: #### R UBIGG #### [facility] [address] [place] [address] Dr. Purvi Smith CBC AUTO DIFFon 04-23-2021 BASO # 0.0 103/ul Normal 0.0-0.1 [facility] Comment on above: Performed By: #### C BC #### [facility] [address] [place] [address] Dr. Purvi Smith Basophils/100 WBC (Bld) 0.3 % Normal 0.2-2.0 [facility] Comment on above: Performed By: #### C BC #### [facility] [address] [place] [address] Dr. Purvi Smith EO # 0.2 103/ul Normal 0.0-0.7 [facility] Comment on above: Performed By: #### C BC #### [facility] [address] [place] [address] Dr. Purvi Smith Eosinophils/100 WBC (Bld) 2.1 % Normal 0.9-7.0 [facility] Comment on above: Performed By: #### C BC #### [facility] [address] [place] [address] Dr. Purvi Smith Erythrocyte distribution width (RBC) [Ratio] 12.1 % Normal 11.0-15.0 [facility] Comment on above: Performed By: #### C BC #### [facility] [address] [place] [address] Dr. Purvi Smith Hematocrit (Bld) [Volume fraction] 32.3 % Critically low 36.0-48.0 [facility] Comment on above: Performed By: #### C BC #### [facility] [address] [place] [address] Dr. Purvi Smith Hemoglobin (Bld) [Mass/Vol] 10.6 g/dL Critically low 12.0-16.0 [facility] Comment on above: Performed By: #### C BC #### [facility] [address] [place] [address] Dr. Purvi Smith IG # 0.04 10e3/ul Critically high 0.00-0.03 [facility] Comment on above: Performed By: #### C BC #### [facility] [address] [place] [address] Dr. Purvi Smith IG % 0.3 % Normal 0.0-0.5 [facility] Comment on above: Performed By: #### C BC #### [facility] [address] [place] [address] Dr. Purvi Smith LYMPH # 2.1 103/ul Normal 1.2-3.8 [facility] Comment on above: Performed By: #### C BC #### [facility] [address] [place] [address] Dr. Purvi Smith Lymphocytes/100 WBC (Bld) 17.9 % Critically low 20.5-60.0 [facility] Comment on above: Performed By: #### C BC #### [facility] [address] [place] [address] Dr. Purvi Smith MANUAL DIFF REQ NO Normal [facility] Comment on above: Performed By: #### C BC #### [facility] [address] [place] [address] Dr. Purvi Smith MCH (RBC) [Entitic mass] 30.2 pg Normal 26.7-34.0 [facility] Comment on above: Performed By: #### C BC #### [facility] [address] [place] [address] Dr. Purvi Smith MCHC (RBC) [Mass/Vol] 32.8 g/dL Normal 29.9-35.2 [facility] Comment on above: Performed By: #### C BC #### [facility] [address] [place] [address] Dr. Purvi Smith MCV (RBC) [Entitic vol] 92.0 fL Normal 81.0-99.0 [facility] Comment on above: Performed By: #### C BC #### [facility] [address] [place] [address] Dr. Purvi Smith MONO # 0.8 103/ul Normal 0.3-0.8 [facility] Comment on above: Performed By: #### C BC #### [facility] [address] [place] [address] Dr. Purvi Smith Monocytes/100 WBC (Bld) 6.6 % Normal 1.7-12.0 [facility] Comment on above: Performed By: #### C BC #### [facility] [address] [place] [address] Dr. Purvi Smith NEUT # 8.5 103/ul Critically high 1.4-6.5 [facility] Comment on above: Performed By: #### C BC #### [facility] [address] [place] [address] Dr. Purvi Smith Neutrophils/100 WBC (Bld) 72.8 % Normal 43.0-75.0 [facility] Comment on above: Performed By: #### C BC #### [facility] [address] [place] [address] Dr. Purvi Smith Platelet mean volume (Bld) [Entitic vol] 10.0 fL Normal 9.5-13.5 [facility] Comment on above: Performed By: #### C BC #### [facility] [address] [place] [address] Dr. Purvi Smith PLT 361 103/ul Normal 150-450 [facility] Comment on above: Performed By: #### C BC #### [facility] [address] [address] [address] Purvi Smith RBC 3.51 106/ul Critically low 4.20-5.40 [facility] Comment on above: Performed By: #### C BC #### [facility] [address] [address] [address] Purvi Smith WBC 11.7 103/ul Critically high 4.0-11.0 [facility] Comment on above: Performed By: #### C BC #### [facility] [address] [place] [address] Dr. Purvi Smith GLYCOHEMOGLOBIN A1Con 2020 ADA RECOMMENDATION ADA THERAPEUTIC TARGET 6.0 - 7.0 ACTION SUGGESTED > 7.0 Normal [facility] Comment on above: Performed By: #### A 1C #### [facility] [address] [place] [address] Dr. Purvi Smith Glucose [Mass/Vol] 88 mg/dL Normal [facility] Comment on above: Performed By: #### A 1C #### [facility] [address] [place] [address] Dr. Purvi Smith HbA1c (Bld) [Mass fraction] 4.7 % Normal <=6.0 [facility] Comment on above: Performed By: #### A 1C #### [facility] [address] [place] [address] Dr. Purvi Smith GASTON BOX TEST PT SEND OUTo n 04-23-2021 SENT TO REF LAB 04/23/2021 Normal [facility] Comment on above: Performed By: #### N BOX #### [facility] [address] [place] [address] Dr. Purvi Smith TYPE AND SCREENon 04-23-2021 TYPE AND SCREEN Negative Normal [facility] Comment on above: Performed By: #### T NS #### [facility] [address] [place] [address] Dr. Purvi Smith US PREG TVon 03-30-2021 US PREG TV EXAMINATION: US PREG TV HISTORY: Menstrual period late COMPARISON: 02/26/2016 FINDINGS: Transvaginal images Clark intrauterine gestation MSD: 3.65 cm, 9 weeks 0 days CRL: 1.82 cm, 20 weeks 2 days Yolk sac: 0.39 cm Heart rate: 160 bpm Cervix: Closed, 4.9 cm The uterus is normal in appearance. Anteverted, anteflexed. The right ovary is not visualized. The left ovary is normal in appearance. Clinical age: 8 weeks 0 days Clinical SURYA: 11/09/2021 Ultrasound age: 8 weeks 2 days Ultrasound SURYA: 11/07/2021 IMPRESSION: Viable clark intrauterine gestation measuring 8 weeks 2 days Electronically authenticated by: VINICIUS GARCIA Date: 2021-03-30 10:06 Normal [facility] CBC AUTO DIFFon 03-16-2021 BASO # 0.0 103/ul Normal 0.0-0.1 [facility] Comment on above: Performed By: #### C BC #### [facility] [address] [place] [address] Dr. Purvi Smith Basophils/100 WBC (Bld) 0.3 % Normal 0.2-2.0 [facility] Comment on above: Performed By: #### C BC #### [facility] [address] [place] [address] Dr. Purvi Smith EO # 0.2 103/ul Normal 0.0-0.7 [facility] Comment on above: Performed By: #### C BC #### [facility] [address] [place] [address] Dr. Purvi Smith Eosinophils/100 WBC (Bld) 1.9 % Normal 0.9-7.0 [facility] Comment on above: Performed By: #### C BC #### [facility] [address] [place] [address] Dr. Purvi Smith Erythrocyte distribution width (RBC) [Ratio] 11.9 % Normal 11.0-15.0 [facility] Comment on above: Performed By: #### C BC #### [facility] [address] [place] [address] Dr. Purvi Smith Hematocrit (Bld) [Volume fraction] 31.5 % Critically low 36.0-48.0 [facility] Comment on above: Performed By: #### C BC #### [facility] [address] [place] [address] Dr. Purvi Smith Hemoglobin (Bld) [Mass/Vol] 10.3 g/dL Critically low 12.0-16.0 [facility] Comment on above: Performed By: #### C BC #### [facility] [address] [place] [address] Dr. Purvi Smith IG # 0.04 10e3/ul Critically high 0.00-0.03 [facility] Comment on above: Performed By: #### C BC #### [facility] [address] [place] [address] Dr. Purvi Smith IG % 0.4 % Normal 0.0-0.5 [facility] Comment on above: Performed By: #### C BC #### [facility] [address] [place] [address] Dr. Purvi Smith LYMPH # 2.3 103/ul Normal 1.2-3.8 [facility] Comment on above: Performed By: #### C BC #### [facility] [address] [place] [address] Dr. Purvi Smith Lymphocytes/100 WBC (Bld) 21.5 % Normal 20.5-60.0 [facility] Comment on above: Performed By: #### C BC #### [facility] [address] [place] [address] Dr. Purvi Smith MANUAL DIFF REQ NO Normal [facility] Comment on above: Performed By: #### C BC #### [facility] [address] [place] [address] Dr. Purvi Smith MCH (RBC) [Entitic mass] 30.2 pg Normal 26.7-34.0 [facility] Comment on above: Performed By: #### C BC #### [facility] [address] [place] [address] Dr. Purvi Smiht MCHC (RBC) [Mass/Vol] 32.7 g/dL Normal 29.9-35.2 [facility] Comment on above: Performed By: #### C BC #### [facility] [address] [place] [address] Dr. Purvi Smith MCV (RBC) [Entitic vol] 92.4 fL Normal 81.0-99.0 [facility] Comment on above: Performed By: #### C BC #### [facility] [address] [place] [address] Dr. Purvi Smith MONO # 0.9 103/ul Critically high 0.3-0.8 [facility] Comment on above: Performed By: #### C BC #### [facility] [address] [place] [address] Dr. Purvi Smith Monocytes/100 WBC (Bld) 8.4 % Normal 1.7-12.0 [facility] Comment on above: Performed By: #### C BC #### [facility] [address] [place] [address] Dr. Purvi Smith NEUT # 7.3 103/ul Critically high 1.4-6.5 [facility] Comment on above: Performed By: #### C BC #### [facility] [address] [place] [address] Dr. Purvi Smith Neutrophils/100 WBC (Bld) 67.5 % Normal 43.0-75.0 [facility] Comment on above: Performed By: #### C BC #### [facility] [address] [place] [address] Dr. Purvi Smith Platelet mean volume (Bld) [Entitic vol] 10.4 fL Normal 9.5-13.5 [facility] Comment on above: Performed By: #### C BC #### [facility] [address] [place] [address] Dr. Purvi Smith PLT 362 103/ul Normal 150-450 [facility] Comment on above: Performed By: #### C BC #### [facility] [address] [place] [address] Dr. Purvi Smith RBC 3.41 106/ul Critically low 4.20-5.40 [facility] Comment on above: Performed By: #### C BC #### [facility] [address] [address] [address] Purvi Smith WBC 10.8 103/ul Normal 4.0-11.0 [facility] Comment on above: Performed By: #### C BC #### [facility] [address] [place] [address] Dr. Purvi Smith PROF CHEM 8 (BAS METB)on Anion gap [Moles/Vol] 10.6 mmol/L Normal [facility] Comment on above: Performed By: #### B MP #### [facility] [address] [place] [address] Dr. Purvi Smith Calcium [Mass/Vol] 9.2 mg/dL Normal 8.4-10.2 [facility] Comment on above: Performed By: #### B MP #### [facility] [address] [place] [address] Dr. Purvi Smith Chloride [Moles/Vol] 103 mmol/L Normal 98-107 [facility] Comment on above: Performed By: #### B MP #### [facility] [address] [place] [address] Dr. Purvi Smith CO2 [Moles/Vol] 25.5 mmol/L Normal 22.0-30.0 [facility] Comment on above: Performed By: #### B MP #### [facility] [address] [place] [address] Dr. Purvi Smith Creatinine [Mass/Vol] 0.61 mg/dL Normal 0.52-1.04 [facility] Comment on above: Performed By: #### B MP #### [facility] [address] [place] [address] Dr. Purvi Smith EGFR-AF SYRIAN >60 Normal >=60 [facility] Comment on above: Performed By: #### B MP #### [facility] [address] [place] [address] Dr. Purvi Smith EGFR-NON AF SYRIAN >60 Normal >=60 [facility] Comment on above: Performed By: #### B MP #### [facility] [address] [address] [address] Purvi Smith Glucose [Mass/Vol] 80 mg/dL Normal 74-106 [facility] Comment on above: Performed By: #### B MP #### [facility] [address] [address] [address] Purvi Smith Potassium [Moles/Vol] 3.1 mmol/L Critically low 3.4-5.0 [facility] Comment on above: Performed By: #### B MP #### [facility] [address] [address] [address] Purvi Smith Sodium [Moles/Vol] 136 mmol/L Critically low 137-145 [facility] Comment on above: Performed By: #### B MP #### [facility] [address] [address] [address] Purvi Smith Urea nitrogen [Mass/Vol] 11.0 mg/dL Normal 7.0-17.0 [facility] Comment on above: Performed By: #### B MP #### [facility] [address] [address] [address] Purvi Smith Urea nitrogen/Creatinine [Mass ratio] 18.0 mg/mg Normal [facility] Comment on above: Performed By: #### B MP #### [facility] [address] [address] [address] Purvi Smith Encounters Encounter Date Encounter Type Care Provider Facility Start: 01-01-2024 End: 01-01-2024 ambulatory Not Available Start: 12-20-2023 End: 12-20-2023 Emergency department patient visit VINICIUS Huntley [facility] Start: 12-05-2023 End: 12-05-2023 ambulatory BENSON DIAL [facility] Start: 11-24-2023 End: 11-24-2023 Emergency department patient visit VINICIUS Huntley [facility] Start: 11-06-2023 End: 11-06-2023 ambulatory BERNIE PULIDO [facility] Start: 09-02-2023 End: 09-02-2023 amb[facility] [facility] Start: 07-17-2023 End: 07-17-2023 Emergency department patient visit VINICIUS BATRES [facility] Start: 04-11-2023 End: 04-11-2023 ambulatory BERNIE PULIDO [facility] Start: 03-12-2023 [facility] Start: 09-10-2021 End: 09-10-2021 Subsequent hospital visit by physician [facility] 3 [facility] 3C Med Surg Start: 08-21-2021 End: 08-21-2021 Subsequent hospital visit by physician Benson [facility] Start: 08-06-2021 End: 08-07-[address] JINA HILL Facility:[facility]1 Start: 04-23-2021 End: 04-24-[address] JINA HILL Facility:[facility] Start: 04-21-2021 End: 04-22-[address] JINA HILL Facility:[facility]1 Start: 03-30-2021 End: 03-31-[address] JINA HILL Facility:[facility] Start: 03-16-2021 End: 03-16-2021 ambulatory JAZMIN GARBER Facility:[facility]1 Procedures Date Procedure Procedure Detail Performing Clinician Start: 08-21-2021 Microscopic observat ion [Identifier] in Cervix by Cyto stain Stv 3 Plan of Treatment Date Care Activity Detail Author Start: 08-21-2024 Screening for malign ant neoplasm of cervix Pap smear [facility] Start: 01-24-2022 Influenza vaccination Flu vacc ine (Season Ended) [facility] Start: 10-01-2021 End: 10-01-2021 Patient encounter procedure 10/01/2021 Routine Obstetrics [place] [address] [place] [address] [id number] [facility] [employer] [place] Start: 09-04-2021 End: 09-04-2021 Patient encounter procedure 09/04/2021 Routine Obstetrics and Gynecology Anisha Lucas DO [address] [place] [address] [facility] [employer] Start: 01-24-2021 Influenza vaccination Flu vaccine (# 1) [facility] Start: 2013 Screening for malign ant neoplasm of cervix Pap smear [facility] Start: 09-21-2011 DTaP/Tdap/Td vaccine (1 - Tdap) DTaP/Tdap/Td vaccine (1 - Tdap) [facility] Start: 2010 Hepatitis C screening Hepatitis C [facility] Start: 2004 Depression Screen Depression Screen [facility] Start: 1997 COVID-19 Vaccine (1) COVID-19 Vaccin e (1) [facility] Start: 1993 Varicella vaccine (1 of 2 - 2-dose childhood series) Varicella vaccine (1 of 2 - 2-dose childhood series) [facility] Start: 1992 Hepatitis C screening Hepatitis C [facility] Payers Date Payer Category Payer Unknown [id number] 2.16.84 [id number] 1992 Unknown [id number] 2.16.84 [id number] 1992 Unknown [id number] 2.16.84 [id number] 1992 Unknown [id number] 2.16.84 [id number] 1992 Unknown [id number] 2.16.84 [id number] 1992 Unknown [id number] 2.16. [id number] 1992 Unknown [id number] 2.16.8 [id number] 1992 Unknown [id number] 2.16.8 [id number] 1992 Unknown [id number] 2.16.8 [id number] 1992 Unknown [id number] 2.16.8 [id number] 1992 Unknown [id number] 2.16.84 [id number] 1992 Unknown [id number] 2.16. [id number] 1992 Unknown [id number] 2.16. [id number] 1992 Unknown [id number] 2.16. [id number] 1959 Self-pay [id number] 1959 Unknown [id number] Unknown [id number] 2.16.84 [id number] Social History Date Type Detail Facility Start: 06-23-2012 Tobacco smoking stat [facility] Never smoked tobacco [employer] Phone: Start: 06-23-2012 End: 09-04-2021 Tobacco use and exposure Smokeless tobacco non-user [employer] Phone: Start: 08-21-2021 Alcohol intake Lifetime non-d stephany (finding) [employer] Phone: Start: 08-21-2021 History SDOH Alcohol Frequency 1 [employer] Phone: Start: 02-16-2021 [employer] Phone: Start: 1990 [facility] [employer] [facility] Start: 09-04-2021 Tobacco smoking stat [facility] Ex-smoker [employer] Start: 09-04-2021 Alcohol intake Ex-drinker (finding) [employer] Phone: Summary Purpose Family History No Family History Records FoundNo Family History Records FoundNo Family History Records FoundNo Family History Records FoundNo Family History Records FoundNo Family History Records Found Advance Directives No Advanced Directives Records FoundDocuments on File Type Date Recorded 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 ACP-Advance Directive ACP-Power of [employer] Additional Source Comments INFORMATION SOURCE (unrecogn ized section and content) DATE CREATED AUTHOR 08/08/2021 [facility] DATE CREATED AUTHOR AUTHOR'S ORGANIZ ATION 03/23/2023 [facility] DATE CREATED AUTHOR AUTHOR'S ORGANIZ ATION [facility]/11[facility]2023 [facility] DATE CREATED AUTHOR AUTHOR'S ORGANIZ ATION 12/22/2023 [facility] DATE CREATED AUTHOR AUTHOR'S ORGANIZ ATION 01/04/2024 [facility] DATE CREATED AUTHOR AUTHOR'S ORGANIZ ATION 01/05/2024 [facility] Care Teams (unrecognized sec tion and content) Senior Specialist Relationship Specialty Start Date End Date Benson Dial MD PCP - General 10/08/12 Senior Specialist Relationship Specialty Start Date End Date Benson Dial MD PCP - General 10/08/12 FOR RECORDS PERTAINING TO PATIENTS WHO ARE OR HAVE BEEN ENROLLED IN A CHEMICAL DEPENDENCY/SUBSTANCEABUSE PROGRAM, SOME INFORMATION MAY BE OMITTED. This clinical summary was aggregated from multiple sources. Caution should be exercised in using it in the provision of clinical care. This summary normalizes information from multiple sources, and as a consequence, information in this document may materially change the coding, format and clinical context of patient data. In addition, data may be omitted in some cases. CLINICAL DECISIONS SHOULD BE BASED ON THE PRIMARY CLINICAL RECORDS. [employer] [facility]. provides no warranty or guarantee of the accuracy or completeness of information in this document.
[2024-01-17 11:48] LABS: Estimated Average Glucose 82 mg/dL; Glycohemoglobin A1C 4.5 % (4.5-6.2)
[2024-01-17 12:13] LABS: Basophils Percent Auto 0.3 % (0.2-2.0); Eosinophils Absolute Auto 0.3 10^3/uL (0.0-0.7); Eosinophils Percent Auto 2.3 % (0.9-7.0); Hematocrit 31.8 % (36.0-48.0); Hemoglobin 10.3 g/dL (12.0-16.0); Immature Granulocytes Abs Auto 0.05 10^3/uL (0.00-0.03); Immature Granulocytes Pct Auto 0.4 % (0.0-0.5); Lymphocytes Absolute Auto 2.4 10^3/uL (1.2-3.8); Lymphocytes Percent Auto 21.2 % (20.5-60.0); Mean Corpuscular HGB Conc 32.4 g/dL (29.9-35.2); Mean Corpuscular Hemoglobin 29.9 pg (26.7-34.0); Mean Corpuscular Volume 92.2 fL (81.0-99.0); Mean Platelet Volume 10.9 fL (9.5-13.5); Monocytes Absolute Auto 0.8 10^3/uL (0.3-0.8); Monocytes Percent Auto 6.9 % (1.7-12.0); Neutrophils Percent Auto 68.9 % (43.0-75.0); Platelet Count 385 10^3/uL (150-450); Red Blood Count 3.45 10^6/uL (4.20-5.40); Red Cell Distribution Width 12.7 % (11.0-15.0); White Blood Count 11.5 10^3/uL (4.0-11.0)
[2024-01-18 08:08] LABS: HIV Ab/p24 Ag Screen Non Reactive (Non Reactive); Rapid Plasma Reagin, Quant Non Reactive titer (NonRea<1:1); Rubella Antibodies, IgG 1.42 index (Immune >0.99)
[2024-01-18 09:07] LABS: HCV Ab Non Reactive (Non Reactive)
[2024-01-18 11:07] LABS: HBsAg Screen Negative (Negative)
== END 2024-01-17 10:41 | disposition home or self-care (01) ==
LOC: LAB 10:43
PROVIDERS: PCP Family Medicine; Visit Provider Obstetrics & Gynecology
DX: N92.6 Irregular menstruation, unspecified (principal); Z36.0 Encounter for antenatal screening for chromosomal anomalies
CPT/HCPCS: 36415; 83036; 85025; 86592; 86762; 86803; 86850; 86900; 86901; 87086; 87340; 87389

== ENCOUNTER 2024-04-06 09:21 | Observation (INO) | payer OTHER, SELFPAY ==
[2024-04-06 09:39] VITALS: BP 119/59; PULSE 77
--- NOTE | 2024-04-06 09:44 | US_ITS ---
[address] [address] Patient Name: HOMERO RAMIREZ MRN: [id number] date: 1990 Sex: F Assigned Patient Location: [facility] Current Patient Location: Accession/Order Number: [id number] Exam Date: 04/06/2024 11:45 Report Date: 04/06/2024 12:37 At the request of: JINA HILL Procedure: US OB anatomy EXAMINATION: US OB cervical length, US OB anatomy HISTORY: anatomic study COMPARISON: No relevant comparison available. TECHNIQUE: Transabdominal sonographic examination was performed for obstetrical and evaluation. FINDINGS: Number: 1 Heart Rate: 145.16 bpm H.B. /min Amniotic Fluid Volume: Subjectively normal position: Cephalic presentation, longitudinal lie Placental Location: Posterior, the placental edge is 1.2 cm from the internal cervical os. Grade 0 Cervix Length: 5.98 cm , closed. Echogenic material measuring 1 cm noted in the internal cervical os Normal anatomy: Lateral ventricles, cerebellum, posterior fossa, nose, lips, orbits, four-chamber heart, RVOT, LVOT, diaphragm, stomach, kidneys, abdominal cord insertion, bladder, umbilical arteries, three-vessel cord, spine, extremities Abnormal anatomy: Suspected clubfoot BIOMETRY: BPD: 5.03 cm; 21 weeks 2 days; 9.10 % HC: 19.50 cm; 21 weeks 5 days; 12.90 % AC: 17.12 cm; 22 weeks 1 day; 30.90 % FL: 4.09 cm; 23 weeks 2 days; 67.70 % EFW:506.65 g; 45.10 %, 1 lb. 2 oz. FL/AC: 23.91 FL/BPD: 81.46 HC/AC: 1.14 GESTATIONAL AGE: Age by EDC: 22 weeks 3 days SURYA by EDC: 2024-08-07 Age by current US: 22 weeks 1 day SURYA by current US: 2024-08-09 US/US OB anatomy IMPRESSION: Suspected clubfoot Echogenic material the internal cervical os could represent hemorrhage Marginal placenta previa, the internal cervical os is 1.2 cm from the placental edge *Reference: [employer] Practice Guideline for the performance of Obstetric Ultrasound Examinations, February 23, 2007. Electronically authenticated by: VINICIUS GARCIA Date: 04/06/2024 12:37
[2024-04-06 10:00] LABS: Bilirubin Urine NEGATIVE (NEGATIVE); Blood Urine NEGATIVE (NEGATIVE); Clarity Urine CLEAR (CLEAR); Color Urine LT. YELLOW (YELLOW); Glucose Urine UA NEGATIVE (NEGATIVE); Ketones Urine NEGATIVE (NEGATIVE); Leukocyte Esterase Urine SMALL (NEGATIVE); Nitrite Urine NEGATIVE (NEGATIVE); Protein Urine NEGATIVE (NEG/TRACE); Urine Microscopic Indicated YES
[2024-04-06 10:08] LABS: Bacteria Urine TRACE #/HPF (NONE SEEN); Cast Seen? NONE SEEN #/LPF (NONE SEEN); Crystals Seen? None Seen #/HPF (None Seen); Mucus Urine NONE SEEN (NONE SEEN); RBC Urine 0-2 #/HPF (0-2); Squamous Epithelial Cell Urine FEW #/LPF (NONE/RARE); Urine Culture Indicated YES
--- NOTE | 2024-04-06 11:22 | US_ITS ---
[address] [address] Patient Name: HOMERO RAMIREZ MRN: [id number] date: 1990 Sex: F Assigned Patient Location: [facility] Current Patient Location: Accession/Order Number: [id number] Exam Date: 04/06/2024 11:45 Report Date: 04/06/2024 12:37 At the request of: JINA HILL Procedure: US OB cervical length EXAMINATION: US OB cervical length, US OB anatomy HISTORY: anatomic study COMPARISON: No relevant comparison available. TECHNIQUE: Transabdominal sonographic examination was performed for obstetrical and evaluation. FINDINGS: Number: 1 Heart Rate: 145.16 bpm H.B. /min Amniotic Fluid Volume: Subjectively normal position: Cephalic presentation, longitudinal lie Placental Location: Posterior, the placental edge is 1.2 cm from the internal cervical os. Grade 0 Cervix Length: 5.98 cm , closed. Echogenic material measuring 1 cm noted in the internal cervical os Normal anatomy: Lateral ventricles, cerebellum, posterior fossa, nose, lips, orbits, four-chamber heart, RVOT, LVOT, diaphragm, stomach, kidneys, abdominal cord insertion, bladder, umbilical arteries, three-vessel cord, spine, extremities Abnormal anatomy: Suspected clubfoot BIOMETRY: BPD: 5.03 cm; 21 weeks 2 days; 9.10 % HC: 19.50 cm; 21 weeks 5 days; 12.90 % AC: 17.12 cm; 22 weeks 1 day; 30.90 % FL: 4.09 cm; 23 weeks 2 days; 67.70 % EFW:506.65 g; 45.10 %, 1 lb. 2 oz. FL/AC: 23.91 FL/BPD: 81.46 HC/AC: 1.14 GESTATIONAL AGE: Age by EDC: 22 weeks 3 days SURYA by EDC: 2024-08-07 Age by current US: 22 weeks 1 day SURYA by current US: 2024-08-09 US/US OB cervical length IMPRESSION: Suspected clubfoot Echogenic material the internal cervical os could represent hemorrhage Marginal placenta previa, the internal cervical os is 1.2 cm from the placental edge *Reference: [employer] Practice Guideline for the performance of Obstetric Ultrasound Examinations, February 23, 2007. Electronically authenticated by: VINICIUS GARCIA Date: 04/06/2024 12:37
== END 2024-04-06 12:18 | disposition home or self-care (01) ==
LOC: FBC 09:23
PROVIDERS: Admitting Provider Obstetrics & Gynecology; PCP Family Medicine; Visit Provider Obstetrics & Gynecology
DX: O26.852 Spotting complicating pregnancy, second trimester (principal); Z3A.22 22 weeks gestation of pregnancy
CPT/HCPCS: 76805; 76817; 81001; 87086; G0378; G0379

== ENCOUNTER 2024-06-20 00:04 | Observation (INO) | payer OTHER, SELFPAY ==
[2024-06-20 00:26] VITALS: BP 110/66; PULSE 86
[2024-06-20 00:57] LABS: Bilirubin Urine NEGATIVE (NEGATIVE); Blood Urine TRACE-I (NEGATIVE); Clarity Urine CLEAR (CLEAR); Color Urine YELLOW (YELLOW); Glucose Urine UA NEGATIVE (NEGATIVE); Ketones Urine TRACE mg/dL (NEGATIVE); Leukocyte Esterase Urine SMALL (NEGATIVE); Nitrite Urine NEGATIVE (NEGATIVE); Protein Urine TRACE mg/dL (NEG/TRACE)
[2024-06-20 01:03] LABS: Urine Microscopic Indicated YES
[2024-06-20 01:05] LABS: Bacteria Urine TRACE #/HPF (NONE SEEN); Cast Seen? NONE SEEN #/LPF (NONE SEEN); Crystals Seen? None Seen #/HPF (None Seen); Mucus Urine NONE SEEN (NONE SEEN); RBC Urine 0-2 #/HPF (0-2); Squamous Epithelial Cell Urine MODERATE #/LPF (NONE/RARE); Urine Culture Indicated YES
[2024-06-20 02:22] VITALS: BP 110/71; PULSE 77; TEMP 37
[2024-06-20 02:23] VITALS: BP 110/71; PULSE 77
[2024-06-20] MEDS: ACETAMINOPHEN 500 MG TABLET 1000 MG PO (02:24)
[2024-06-20 06:36] VITALS: BP 106/56; PULSE 71; TEMP 36.8
--- NOTE | 2024-06-20 06:44 | PC.NURSE ---
Pt denies any pain at this time
--- NOTE | 2024-06-20 08:20 | P.OBLDTN_ITS ---
OB - Triage/Final Diagnosis Visit Information Date of evaluation: 06/20/24 Reason for evaluation: other (worsening lower back pain and pelvic pressure) Comments/Additional reasons for admission: 33+ week IUP presents with worsening back pain and pelvic pain which started the night before. No vaginal bleeding/leaking of fluid. GFM Evaluation Cervical dilation (cm): 1 Cervical effacement (%): 10 Laboratory results: Laboratory Tests 06/20/24 00:47 Urine Color Yellow Urine Clarity Clear Urine pH 7.0 Ur Specific [place] 1.020 Urine Protein Trace Urine Glucose (UA) Negative Urine Ketones Trace A Urine Occult Blood Trace-i Urine Nitrite Negative Urine Bilirubin Negative Urine Urobilinogen 2.0 A Ur Leukocyte Esterase Small A Urine RBC 0-2 Urine WBC 5-10 A Ur Squamous Epith Cells Moderate A Urine Crystals None seen Urine Bacteria Trace A Urine Casts None seen Urine Mucus None seen Ur Culture Indicated? 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
--- NOTE | 2024-06-20 08:25 | P.DS_ITS ---
DS: Providers Provider Date of admission: 06/20/24 00:04 Primary care physician: VINICIUS BATRES Admitting clinician: Susannah Everett Attending physician on admission: Shakir Choi Attending physician on discharge: Shakir Choi Discharging clinician: Susannah Everett Anticipated date of discharge: 06/20/24 DS: Diagnosis Discharge Diagnosis (1) Third trimester at less than 36 weeks: Assessment and plan: surveillance (2) Back pain affecting in third trimester: Assessment and plan: Observed over the night, resolution of pain with heating pad, tylenol, oral hydration and rest OB - DS: Summary Hospital Course Hospital Course: Observation over the night with surveillance Status at Discharge Cognitive/behavioral status at discharge: stable Functional status at discharge: independent ambulation Overall status at discharge: patient is back to baseline Time Spent with Patient Time attestation: Total time spent providing and/or coordinating discharge services: Time spent: less than 30 minutes Exam Constitutional Vital Signs, click to edit/add: Last Vital Signs Temp 98.3 F 06/20/24 06:36 Pulse 71 06/20/24 06:36 Resp 16 06/20/24 06:36 BP 106/56 06/20/24 06:36 O2 Del Method Room Air 06/20/24 06:36 DS: Data Data Completed and Pending Labs on day of discharge: Labs from last 24 hours 06/20/24 00:47 Urine Color Yellow Urine Clarity Clear Urine pH 7.0 Ur Specific [place] 1.020 Urine Protein Trace Urine Glucose (UA) Negative Urine Ketones Trace A Urine Occult Blood Trace-i Urine Nitrite Negative Urine Bilirubin Negative Urine Urobilinogen 2.0 A Ur Leukocyte Esterase Small A Urine RBC 0-2 Urine WBC 5-10 A Ur Squamous Epith Cells Moderate A Urine Crystals None seen Urine Bacteria Trace A Urine Casts None seen Urine Mucus None seen Ur Culture Indicated? Yes Discharge Plan Discharge Disposition: Home, Self-Care Discharge Medications: Discontinued Olumiant 2 mg tablet 2 mg PO DAILY Activity: resume usual activities as tolerated Diet: advance to your usual diet Print Language: Telugu Forms: Portal Instructions Follow Up Appointments: Dr Choi on Friday as scheduled
== END 2024-06-20 08:20 | disposition home or self-care (01) ==
PROVIDERS: Admitting Provider Obstetrics & Gynecology Gynecology; PCP Family Medicine; Visit Provider Obstetrics & Gynecology Gynecology
DX: O26.893 Other specified pregnancy related conditions, third trimester (principal); M54.9 Dorsalgia, unspecified; Z3A.33 33 weeks gestation of pregnancy
CPT/HCPCS: 59025; 81001; 87086; G0378; G0379

== ENCOUNTER 2024-06-23 11:55 | Observation (INO) | payer OTHER, SELFPAY ==
--- OUTSIDE RECORDS SUMMARY | 2024-06-23 12:04 | XMS_ITS | CCD ---
Author Organization [facility] Care Team Providers Care Perch Mender Name Role Phone STEPH, DR MURO Admitting Unavailable MISC, DR MIRELES Primary Care Unavailable RADHA, DR VINICIUS Fuentes Consulting Unavailable STEPH, DR MURO Attending Unavailable STEPH, DR MURO Consulting Unavailable STEPH, DR MURO Admitting Unavailable STEPH, DR MURO Attending Unavailable STEPH, DR MURO Consulting Unavailable REQUEST, DR ALPESH LISTED Primary Care Unavaila ble STEPH, DR MURO Admitting Unavailable REQUEST, NONE LISTED Primary Care Unavaila ble STEPH, DR MURO Attending Unavailable JAZMIN GARBER Consulting Unavailable JAZMIN GARBER Admitting Unavailable REQUEST, NONE LISTED Primary Care Unavaila JAZMIN Patel Attending Unavailable STEPH, DR MURO Attending Unavailable STEPH, DR MURO Admitting Unavailable WEST, DR VINICIUS Fuentes Consulting Unavailable REQUEST, DR BETTS LISTED Primary Care Unavaila ble STEPH, DR MURO Consulting Unavailable STEPH, DR MURO Admitting Unavailable STEPH, DR MURO Attending Unavailable STEPH, DR MURO Consulting Unavailable STEPH, DR MURO Primary Care Unavailable Obgina ATWOOD, Alphonsus Primary Care Provider Un available Obgina ATWOOD, Alphonsus Primary Care Provider Un available OBAYUWANA, ALPHONSUS Primary Care Unavailable OBAYUWANA, ALPHONSUS Primary Care Unavailable AL-HAYDE, MOHAMMAD A Referring Unavailable BERNIE PULIDO Referring Unavailable OBAYUWANA, ALPHONSUS Primary Care Unavailable BERNIE PLUIDO Referring Unavailable OBAYUWANA, ALPHONSUS Primary Care Unavailable AL-ADAMAOUR, MOHAMMAD A Referring Unavailable OBAYUWANA, ALPHONSUS Primary Care Unavailable SHERIF-HAYDE, MOHAMMAD A Referring Unavailable OBAYUWANA, ALPHONSUS Primary Care Unavailable BERNIE PULIDO Referring Unavailable BENSON DIAL Primary Care Unavailable Vinicius Quintana MD Primary Care Provider [phone] Vinicius Quintana MD Primary Care Provider [phone] VINICIUS QUINTANA Primary Care Unavailable DEFRANCE, VINICIUS Fernadnes Primary Care Unavailable DEFRANCE, VINICIUS Fernandes Primary Care Unavailable CARROL DAVIS Attending Unavailable DEFMOY, VINICIUS Fernandes Primary Care Unavailable CORINA JEAN Attending Unavailable SARAH, DASHA Admitting Unavailable DASHA SMITH Attending Unavailable DEFMOY, VINICIUS Fernandes Primary Care Unavailable ADINA, JUAN MIGUEL Admitting Unavailable ADINA, JUAN MIGUEL Attending Unavailable DEFRANCE, VINICIUS Fernandes Primary Care Unavailable STEPH, SHAKIR R Referring Unavailable DEFRANCE, VINICIUS Fernandes Primary Care Unavailable IFRAH DÍAZ Attending Unavailable STEPH, SHAKIR R Referring Unavailable DEFRANCE, VINICIUS Fernandes Primary Care Unavailable STEPH, SHAKIR R Referring Unavailable DEFRANCE, VINICIUS Fernandes Primary Care Unavailable STEPH, SHAKIR Attending Unavailable SOPHIA RHOADES Attending Unavailable STEPH, SHAKIR Attending Unavailable SOPHIA RHOADES Attending Unavailable STEPH, SHAKIR Attending Unavailable STEPH, SHAKIR Attending Unavailable Jayro ATWOOD, Benson Primary Care Provider Un available Medications Current Medications Medication Drug Class(es) Dates Sig (Normalized) Sig (Original) azithromycin 500 mg oral tablet (1 source) Macrolide Antimicrobial Start: 09-03-2021 azithromycin (ZITHROMAX) 500 MG tablet baricitinib 2 mg oral tablet (1 source) Start: 11-07-2023 take 1 tablet by mouth once daily baricitinib (OLUMIANT) 2 MG TABS tablet Indications: Alopecia areata Take 1 tablet by mouth daily 30 tablet 11/07/2023 Active busPIRone hydrochloride 15 mg oral tablet (4 sources) Start: 02-27-2023 take 1 tablet by mouth in the morning, then take 1 tablet by mouth at bedtime busPIRone (BUSPAR) 15 mg tablet Take 1 tablet (15 mg total) by mouth in the morning and 1 tablet (15 mg total) before bedtime. 60 tablet 5 02/27/2023 Active cephalexin 500 mg oral capsule (1 source) Cephalosporin Antibacterial Start: 08-21-2021 End: 08-28-2021 take 1 capsule by mouth four times daily cephALEXin (KEFLEX) 500 MG capsule Indications: Urinary tract infection in mother during , antepartum Take 1 capsule by mouth 4 times daily for 7 days 28 capsule 0 08/21/2021 08/28/2021 Active clindamycin 300 mg oral capsule (2 sources) Lincosamide Antibacterial Start: 03-15-2024 End: 03-25-2024 clindamycin (Cleocin) 300 MG capsule Indications: UTI symptoms Take 1 capsule (300 mg) by mouth in the morning and 1 capsule (300 mg) at noon and 1 capsule (300 mg) in the evening and 1 capsule (300 mg) before bedtime. Do all this for 10 days. 40 capsule 03/15/2024 03/25/2024 Active clobetasol propionate 0.5 mg/ml topical cream (1 source) Corticosteroid Start: 04-22-2023 clobetasol (TEMOVATE) 0.05 % cream Indications: Alopecia areata Apply a thin layer, to areas of hair loss, nightly. 60 g 3 04/22/2023 Active EPINEPHrine / Lidocaine (1 source) Antiarrhythmic, alpha-Adrenergic Agonist, beta-Adrenergic Agonist, Catecholamine, Amide Local Anesthetic Start: 03-10-2023 lidocaine-EPINEPHri ne 1 %-[id number] injection 1 mL ferrous sulfate 325 mg oral tablet (2 sources) Start: 09-01-2021 take 1 tablet by mouth once daily at breakfast ferrous sulfate (IRON 325) 325 (65 Fe) MG tablet Take 325 mg by mouth daily (with breakfast) 09/01/2021 Active hydrocortisone 25 mg/ml topical cream (11 sources) Corticosteroid Start: 03-10-2023 hydrocortisone 2.5 % cream Indications: Pityriasis alba Apply to affected areas of face, twice daily x 2 weeks, then twice daily as needed. 28 g 2 03/10/2023 Active End: 04-12-2024 hydrocortisone 2.5 % cream A PPLY TO AFFECTED AREAS OF FACE, TWICE DAILY X 2 WEEKS, THEN TWICE DAILY NEEDED. 04/12/2024 Discontinued 2.5 ml iron sucrose 20 mg/ml injection (2 sources) Parenteral Iron Replacement Start: 09-04-2021 End: 09-19-2021 inject 15 mL intravenously every week iron sucrose (VENOFER) 20 MG/ML injection Indications: Maternal iron deficiency anemia affecting in third trimester, antepartum Infuse 15 mLs intravenously once a week for 3 doses 45 mL 09/04/2021 Active metroNIDAZOLE 0.0075 mg/mg vaginal gel (4 sources) Nitroimidazole Antimicrobial Start: 04-12-2024 End: 04-17-2024 metroNIDAZOLE (Metrogel) 0.75 % vaginal gel Indications: Bacterial vaginosis Insert into the vagina Daily for 5 days 70 g 04/12/2024 04/17/2024 Active Start: 04-09-2024 End: 04-12-2024 metroNIDAZOLE (Flagyl) 500 M G tablet Take 500 mg by mouth in the morning and 500 mg at noon and 500 mg in the evening. 04/09/2024 04/12/2024 Discontinued (Duplicate order) ondansetron 4 mg disintegrating oral tablet (10 sources) Serotonin-3 Receptor Antagonist Start: 01-07-2024 End: 02-28-2024 take 1 tablet by mouth every six hours as needed for nausea and vomiting and nausea and nausea ondansetron ODT (Zofran-ODT) 4 MG disintegrating tablet Indications: Nausea Take 1 tablet (4 mg) by mouth every 6 (six) hours if needed for nausea or vomiting 30 tablet 2 01/29/2024 02/28/2024 Active Start: 07-17-2023 take 1 tablet by johann th every eight hours as needed for nausea ondansetron ODT (ZOFRAN ODT) 4 mg disintegrating tablet Dissolve 1 tablet (4 mg total) on tongue every 8 (eight) hours as needed for nausea for up to 10 doses. 10 tablet 07/17/2023 Active 25/iron fum/folic/d jonas (-1 ORAL) (2 sources) 25/iron fum/folic/dha (-1 ORAL) Take by mouth daily. OVER THE CONTER Active MV-Min-Fe Fum-FA-DH A ( 1 PO) (16 sources) MV-Min- Fe Fum-FA-DHA ( 1 PO) Take by mouth Active MV-Min- Fe Fum-FA-DHA ( 1 PO) Take by mouth OTC with Iron Active VITAMINS PO (2 sources) Start: 04-23-2012 take 1 tablet by mouth once daily VITAMINS PO Take 1 tablet by mouth daily. 0 04/23/2012 Active promethazine hydrochloride 25 mg oral tablet (20 sources) Phenothiazine Start: 12-20-2023 take 1 tablet by mouth every six hours as needed promethazine (Phenergan) 25 MG tablet Take 25 mg by mouth every 6 (six) hours if needed 12/20/2023 Active 1000 ml sodium chloride 9 mg/ml injection (1 source) Start: 02-06-2024 End: 02-07-2024 take 100 mL intravenously every hour as needed, then take 20 mL intravenously every hour as needed 5-250 mL/hr, IntraVENous, PRN, If patient receiving piggyback infusions and maintenance fluids are not ordered OR KVO fluids to protect IV site/ prevent frequent line interruptions/ long duration, Starting on Fri02/06/24 at 1417, For 18 hours, For piggyback infusion, administer at same rate as piggyback for a total of 25 mL. Enter 25 mL into dose field and piggyback rate into rate field of order. If piggyback is infusing at a rate less than 100 mL/hr, enter 25 mL into dose field and 100 mL/hr into rate field of order. For KVO fluids, enter rate of 20 mL/hr or less into rate field of order. Completed/Discontinued Medications Medication Drug Class(es) Dates Sig (Normalized) Sig (Original) ferumoxytol (FERAHEME) 510 mg in sodium chloride 0.9 % 100 mL IVPB (1 source) Start: 02-06-2024 End: 02-06-2024 510 mg, IntraVENous, at 351 mL/hr, Administer over 20 Minutes, ONCE, On Fri02/06/24 at 1445, For 1 dose fluconazole 150 mg oral tablet (8 sources) Azole Antifungal Start: 04-09-2024 End: 05-24-2024 fluconazole (Diflucan) 150 MG tablet Take 100 mg by mouth 1 (one) time 04/09/2024 05/24/2024 Discontinued ibuprofen 800 mg oral tablet (2 sources) Nonsteroidal Anti-inflammatory Drug Start: 07-17-2023 End: 05-05-2024 take 1 tablet by mouth every six hours as needed for pain ibuprofen (MOTRIN) 800 mg tablet Take 1 tablet (800 mg total) by mouth every 6 (six) hours as needed for pain. 21 tablet 07/17/2023 05/05/2024 Discontinued () nitrofurantoin, macrocrystals 25 mg / nitrofurantoin, monohydrate 75 mg oral capsule (7 sources) Nitrofuran Antibacterial Start: 05-10-2024 End: 05-24-2024 take 1 capsule by mouth in the morning nitrofurantoin, macrocrystal-monoh ydrate, (Macrobid) 100 MG capsule Indications: Urinary tract infection without hematuria, site unspecified Take 1 capsule (100 mg) by mouth in the morning and 1 capsule (100 mg) before bedtime. Do all this for 7 days. 14 capsule 05/10/2024 05/24/2024 Discontinued Start: 01-29-2024 End: 02-05-2024 take 1 capsule by mouth in the morning nitrofurantoin, macrocrystal-monohydrate , (Macrobid) 100 MG capsule Indications: Urinary tract infection without hematuria, site unspecified Take 1 capsule (100 mg) by mouth in the morning and 1 capsule (100 mg) before bedtime. Do all this for 7 days. 14 capsule 01/29/2024 02/05/2024 Active potassium chloride 10 meq extended release oral tablet (10 sources) Start: 12-21-2023 End: 04-12-2024 take 2 tablets by mouth in the morning, then take 2 tablets by mouth at bedtime potassium chloride CR (Klor-Con) 10 MEQ ER tablet TAKE 2 TABLET BY MOUTH IN THE MORNING AND 2 BEFORE BEDTIME FOR 1 DAYS 12/21/2023 04/12/2024 Discontinued Problems Active Problems Problem Classification Problem Date Documented Da te Episodic/Chronic Abdominal pain (2 sources) Abdominal pain Onset: 02-26-2024 Episodic Anxiety disorders (5 sources) Anxiety; Translations: [Anxiety disorder, unspecified] Onset: 01-18-2018 01-18-2018 Chronic Cardiac and circulatory congenital anomalies (6 sources) Congenital heart disease; Translations: [Congenital malformation of heart, unspecified] Onset: 08-21-2021 08-21-2021 Chronic Deficiency and other anemia (1 source) Anemia, unspecified; Translations: [Anemia, unspecified] Onset: 12-05-2023 Episodic Deficiency and other anemia (1 source) Iron deficiency anemia, unspecified; Translations: [Iron deficiency anemia, unspecified] Onset: 12-05-2023 Episodic Early or threatened labor (5 sources) labor in third trimester with delivery in third trimester; Translations: [ labor third trimester with delivery third trimester, not applicable or unspecified] Onset: 10-02-2021 Resolved: 11-08-2021 11-08-2021 Episodic Genitourinary symptoms and ill-defined conditions (5 sources) History of urinary tract infection; Translations: [Personal history of urinary (tract) infections] Onset: 08-20-2021 08-21-2021 Episodic Hemorrhage during ; abruptio placenta; placenta previa (5 sources) Low lying placenta NOS or without hemorrhage, second trimester; Translations: [Placenta previa] Onset: 08-07-2021 05-05-2024 Episodic Inflammatory diseases of female pelvic organs (2 sources) Bacterial vaginosis; Translations: [Acute vaginitis] 04-12-2024 Episodic Mood disorders (6 sources) Depressive disorder; Translations: [Depressive disorder] Onset: 05-02-2018 Resolved: 08-27-2021 08-27-2021 Chronic Mood disorders (4 sources) Mood disorders; Translations: [Depression, unspecified] Onset: 05-05-2024 04-25-2022 Other complications of ; puerperium affecting management of mother (3 sources) Disorder of structure; Translations: [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, other fetus] 05-05-2024 Episodic Other complications of (2 sources) Vaginal discharge; Translations: [Other specified related conditions, second trimester] Onset: 04-09-2024 04-09-2024 Episodic Other complications of (1 source) Supervision of other high risk pregnancies, unspecified trimester; Translations: [Supervision of other high risk pregnancies, unspecified trimester] Onset: 05-05-2024 Episodic Other congenital anomalies (2 sources) Talipes equinovarus; 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] 06-09-2024 Chronic Other female genital disorders (9 sources) H/O: premature delivery; Translations: [Personal history of pre-term labor] Onset: 08-20-2021 Resolved: 11-08-2021 08-20-2021 Episodic Other gastrointestinal disorders (4 sources) Malabsorption - iron; Translations: [Intestinal malabsorption, unspecified] Onset: 04-19-2022 04-19-2022 Chronic Other and delivery including normal (20 sources) Encounter for supervision of other normal , first trimester; Translations: [Encounter for supervision of normal , unspecified, first trimester] Onset: 04-28-2018 Resolved: 10-03-2021 Episodic Other screening for suspected conditions (not mental disorders or infectious disease) (11 sources) Encounter for other specified screening; Translations: [Encounter for screening for diabetes mellitus] Onset: 04-28-2021 Episodic Residual codes; unclassified (2 sources) 26 weeks gestation of ; Translations: [26 WEEKS GESTATION OF ] Onset: 08-07-2021 Episodic Residual codes; unclassified (2 sources) Gestation period, 17 weeks; Translations: [17 weeks gestation of ] 03-15-2024 Episodic Residual codes; unclassified (2 sources) Gestation period, 23 weeks; Translations: [23 weeks gestation of ] 04-12-2024 Episodic Residual codes; unclassified (3 sources) H/O: poisoning; Translations: [Other specified personal risk factors, not elsewhere classified] 05-05-2024 Episodic Residual codes; unclassified (1 source) History of placental abruption; Translations: [Personal history of other complications of , childbirth and the puerperium] 05-05-2024 Episodic Residual codes; unclassified (1 source) Gestation period, 26 weeks; Translations: [26 weeks gestation of ] 05-05-2024 Episodic Residual codes; unclassified (10 sources) Gestation period, 27 weeks; Translations: [27 weeks gestation of ] Onset: 05-10-2024 05-10-2024 Episodic Residual codes; unclassified (1 source) Gestation period, 29 weeks; Translations: [29 weeks gestation of ] 05-24-2024 Episodic Residual codes; unclassified (1 source) Other specified personal risk factors, not elsewhere classified; Translations: [Other specified personal risk factors, not elsewhere classified] Onset: 05-05-2024 Episodic Residual codes; unclassified (1 source) Personal history of other complications of , childbirth and the puerperium; Translations: [Personal history of other complications of , childbirth and the puerperium] Onset: 05-05-2024 Episodic Residual codes; unclassified (2 sources) Gestation period, 31 weeks; Translations: [31 weeks gestation of ] 06-09-2024 Episodic Short gestation; low weight; and growth retardation (1 source) [id number]-efr-[id number] baby; Translations: [ small for gestational age, unspecified weight] 05-24-2024 Episodic Unclassified (1 source) Thrombocytosis, unspecified; Translations: [Thrombocytosis, unspecified] Onset: 12-05-2023 Unclassified (1 source) Contractions Onset: 05-13-2024 Unclassified (1 source) Rupture of Membranes Onset: 04-09-2024 Unclassified (1 source) Vaginal Bleeding - Onset: 02-26-2024 Unclassified (1 source) Morning Sickness Onset: 12-20-2023 Unclassified (1 source) recent possitive preg test, now bleeding Onset: 11-24-2023 Unclassified (1 source) Cold Like Symptoms Onset: 07-17-2023 Unclassified (1 source) Maternal care for other (suspected) abnormality and damage, lower extremities anomalies, other fetus; Translations: [Maternal care for other (suspected) abnormality and damage, lower extremities anomalies, other fetus] Onset: 05-05-2024 Unclassified (1 source) H/X PTD x2 Onset: 05-05-2024 Unclassified (1 source) Club Foot Onset: 05-05-2024 Urinary tract infections (4 sources) Urinary tract infectious disease; Translations: [Urinary tract infection, site not specified] 05-10-2024 Episodic Past or Other Problems Problem Classification Problem Date Documented Date Episodic/Chronic Deficiency and other anemia (3 sources) Iron deficiency anemia secondary to inadequate dietary iron intake; Translations: [Other iron deficiency anemias] Onset: 09-11-2021 Resolved: 11-08-2021 11-08-2021 Episodic Deficiency and other anemia (2 sources) Iron deficiency anemia; Translations: [Iron deficiency anemia, unspecified] Onset: 12-05-2023 02-06-2024 Episodic Deficiency and other anemia (1 source) Anemia; Translations: [Anemia, unspecified] Onset: 09-04-2021 01-02-2024 Episodic Immunizations and screening for infectious disease (4 sources) Contact with and (suspected) exposure to infections with a predominantly sexual mode of transmission; Translations: [CONTCT W EXPOS INFECT SEXUAL TRNSMS] Onset: 04-23-2021 Episodic Influenza (1 source) Influenza due to other identified influenza virus with other respiratory manifestations; Translations: [Influenza due to other identified influenza virus with other respiratory manifestations] Onset: 07-17-2023 Episodic Menstrual disorders (7 sources) Irregular menstruation, unspecified; Translations: [Amenorrhea] Onset: 05-01-2017 Resolved: 12-04-2017 Chronic Nausea and vomiting (7 sources) Nausea with vomiting, unspecified; Translations: [Nausea] Onset: 03-16-2021 Episodic Neoplasms of unspecified nature or uncertain behavior (1 source) Thrombocytosis; Translations: [Thrombocytosis] Onset: 01-02-2024 01-02-2024 Episodic Other aftercare (1 source) Other usp (current) drug therapy; Translations: [Other ocean transportation intermediary (current) drug therapy] Onset: 11-06-2023 Episodic Other complications of (4 sources) Anemia in mother complicating , childbirth AND/OR puerperium; Translations: [Anemia complicating , third trimester] Onset: 09-04-2021 Resolved: 11-08-2021 09-04-2021 Chronic Other complications of (1 source) Other specified related conditions, first trimester; Translations: [OTH SPEC PREG RELATED COND 1ST TRI] Onset: 04-23-2021 Episodic Other complications of (2 sources) Mental disorder during - baby not yet delivered; Translations: [Other mental disorders complicating , unspecified trimester] Onset: 06-24-2012 08-21-2021 Episodic Other complications of (6 sources) Hereditary disease in family possibly affecting fetus; Translations: [Maternal care for (suspected) hereditary disease in fetus, not applicable or unspecified] Onset: 06-24-2012 Resolved: 11-08-2021 08-21-2021 Episodic Other complications of (3 sources) Uterine size for dates discrepancy; Translations: [Uterine size-date discrepancy, unspecified trimester] Onset: 08-21-2021 08-21-2021 Episodic Other complications of (3 sources) History of premature labor; Translations: [Supervision of with history of pre-term labor, unspecified trimester] Onset: 06-24-2012 Resolved: 08-20-2021 08-20-2021 Episodic Other complications of (2 sources) Vomiting of , unspecified; Translations: [Unspecified vomiting of , unspecified as to episode of care or not applicable] Onset: 05-01-2017 Resolved: 10-02-2021 10-02-2021 Episodic Other complications of (3 sources) High risk ; Translations: [Supervision of with other poor reproductive or obstetric history, first trimester] Onset: 11-03-2017 Resolved: 08-27-2021 08-27-2021 Episodic Other complications of (3 sources) Urinary tract infection in ; Translations: [Unspecified infection of urinary tract in , second trimester] Onset: 02-09-2018 Resolved: 11-08-2021 11-08-2021 Episodic Other complications of (3 sources) Abdominal pain in ; Translations: [Other specified related conditions, unspecified trimester] Onset: 02-09-2018 Resolved: 08-27-2021 08-27-2021 Episodic Other complications of (3 sources) Finding of heart rate; Translations: [Maternal care for abnormalities of the heart rate or rhythm, unspecified trimester, not applicable or unspecified] Onset: 09-01-2021 Resolved: 09-11-2021 09-11-2021 Episodic Other complications of (3 sources) Chlamydia trachomatis infection in ; Translations: [Other maternal infectious and parasitic diseases complicating , second trimester] Onset: 09-11-2021 Resolved: 11-08-2021 11-08-2021 Episodic Other complications of (3 sources) Trichomonal vaginitis in ; Translations: [Infection of other part of genital tract in , second trimester] Onset: 09-11-2021 Resolved: 11-08-2021 11-08-2021 Episodic Other complications of (1 source) with mental disorders; Translations: [Other mental disorders complicating , unspecified trimester] Onset: 06-24-2012 08-21-2021 Episodic Other complications of (1 source) Patient noncompliance - general; Translations: [Supervision of other high risk pregnancies, third trimester] Onset: 10-19-2021 10-19-2021 Episodic Other complications of (1 source) Nausea and vomiting; Translations: [Vomiting of , unspecified] Onset: 05-01-2017 Resolved: 10-02-2021 10-02-2021 Episodic Other infections; including parasitic (3 sources) History of chlamydial infection; Translations: [Personal history of other infectious and parasitic diseases] Onset: 08-20-2021 08-21-2021 Episodic Other infections; including parasitic (3 sources) H/O: infectious disease; Translations: [Personal history of other infectious and parasitic diseases] Onset: 08-20-2021 08-21-2021 Episodic Poisoning by psychotropic agents (3 sources) Selective serotonin re-uptake inhibitor overdose; Translations: [Poisoning by selective serotonin reuptake inhibitors, accidental (unintentional), initial encounter] Onset: 04-28-2018 09-11-2021 Episodic Residual codes; unclassified (1 source) Less than 8 weeks gestation of ; Translations: [< 8 WEEKS GESTATION ] Onset: 04-23-2021 Episodic Substance-related disorders (3 sources) Suspected damage from maternal drug use; Translations: [Maternal care for (suspected) damage to fetus by drugs, not applicable or unspecified] Onset: 06-24-2012 Resolved: 08-21-2021 08-21-2021 Episodic Syncope (1 source) Syncope and collapse; Translations: [Syncope and collapse] Onset: 12-20-2023 Episodic Results Test Name Value Interpretation Reference Range Facility Urinalysis macro (dipstick) panel (U)on 05-24-2024 Bilirubin, UA Negative Negative - 4(70) +++ mg/dL [facility] Blood, UA Positive Negative - 50 Papo/mcL [facility] Clarity, UA Clear [facility] Color, UA Yellow [facility] Glucose, UA Negative Negative - 1999(110) ++++ mg/dL [facility] Interpretation and review of laboratory results Abnormal [facility] Ketones, UA Negative Negative - 160(16) ++++ mg/dL [facility] Leukocytes, UA Negative Negative - 500+++ Akash/mcL [facility] Nitrite, UA Negative Negative - Positive [facility] pH, UA 7 5 - 9 [facility] Protein, UA Trace Negative - 2000(20) ++++ mg/dL [facility] Spec Grav, UA 1.02 1 - 1.03 [facility] Urobilinogen, UA 1.0 0.2 - 12 mg/dL [facility] COMPLETE BLOOD COUNTon 05-13 Erythrocyte distribution width (RBC) [Ratio] 12.9 % Normal 11.5-15.0 [facility] Comment on above: Performed By: #### N UM #### [facility] ([id number]) [address] [place] [address] 96905 Hematocrit (Bld) [Volume fraction] 30.2 % Low 35-47 [facility] Comment on above: Performed By: #### N UM #### [facility] ([id number]) [address] [place] [address] 48053 Hemoglobin (Bld) [Mass/Vol] 10.4 g/dL Low 11.7-15.5 [facility] Comment on above: Performed By: #### N UM #### [facility] ([id number]) [address] [place] [address] 53674 MCH (RBC) [Entitic mass] 31.3 pg Normal 27-34 [facility] Comment on above: Performed By: #### N UM #### [facility] ([id number]) [address] [place] [address] 74075 MCHC (RBC) [Mass/Vol] 34.3 g/dL Normal 32-36 [facility] Comment on above: Performed By: #### N UM #### [facility] ([id number]) [address] [place] [address] 71078 MCV (RBC) [Entitic vol] 92 fL Normal 80-100 [facility] Comment on above: Performed By: #### N UM #### [facility] ([id number]) [address] [place] [address] 55366 Platelet mean volume (Bld) [Entitic vol] 8.7 fL Normal 7-12 [facility] Comment on above: Performed By: #### N UM #### [facility] ([id number]) [address] [place] [address] 32291 Platelets (Bld) [#/Vol] 285 10*3/uL Normal 150-450 [facility] Comment on above: Performed By: #### N UM #### [facility] ([id number]) [address] [place] [address] 66214 RBC COUNT 3.31 X10E12/L Low 3.80-5.20 [facility] Comment on above: Performed By: #### N UM #### [facility] ([id number]) [address] [place] [address] 18289 WBC (Bld) [#/Vol] 13.6 10*3/uL High 4.0-11.0 [facility] Comment on above: Performed By: #### N UM #### [facility] ([id number]) [address] [place] [address] 27329 COMPREHENSIVE METABOLIC PANE Baljit 05-13-2024 Albumin [Mass/Vol] 3.3 g/dL Normal 3.2-5.3 [facility] Comment on above: Performed By: #### N UM #### [facility] ([id number]) [address] [place] [address] 06903 ALP [Catalytic activity/Vol] 52 U/L Normal 39-130 [facility] Comment on above: Performed By: #### N UM #### [facility] ([id number]) [address] [place] [address] 08471 ALT [Catalytic activity/Vol] 10 U/L Normal 0-31 [facility] Comment on above: Performed By: #### N UM #### [facility] ([id number]) [address] [place] [address] 10675 Anion gap [Moles/Vol] 9 mmol/L Normal 5-15 [facility] Comment on above: Performed By: #### N UM #### [facility] ([id number]) [address] [place] [address] 80098 AST [Catalytic activity/Vol] 16 U/L Normal 0-41 [facility] Comment on above: Performed By: #### N UM #### [facility] ([id number]) [address] [place] [address] 22667 Bilirubin [Mass/Vol] 0.8 mg/dL Normal 0.3-1.2 [facility] Comment on above: Performed By: #### N UM #### [facility] ([id number]) [address] [place] [address] 37239 Calcium [Mass/Vol] 9.4 mg/dL Normal 8.5-10.5 [facility] Comment on above: Performed By: #### N UM #### [facility] ([id number]) [address] [place] [address] 20766 Chloride [Moles/Vol] 104 mmol/L Normal 98-109 [facility] Comment on above: Performed By: #### N UM #### [facility] ([id number]) [address] [place] [address] 10266 CO2 [Moles/Vol] 22 mmol/L Normal 22-32 [facility] Comment on above: Performed By: #### N UM #### [facility] ([id number]) [address] [place] [address] 93125 Creatinine [Mass/Vol] 0.63 mg/dL Normal 0.40-1.00 [facility] Comment on above: Result Comment: METH OD TRACEABLE TO IDMS STANDARD Performed By: #### N UM #### [facility] ([id number]) [address] [place] [address] 36051 eGFR (CKD-EPI) NON-RACE DEPENDENT >90 Normal >59 [facility] Comment on above: Result Comment: Reported eGFR is based on the CKD-EPI 2020 equation that does not use a race coefficient. Performed By: #### N UM #### [facility] ([id number]) [address] [place] [address] 27845 Glucose [Mass/Vol] 99 mg/dL Normal 65-99 [facility] Comment on above: Performed By: #### N UM #### [facility] ([id number]) [address] [place] [address] 31293 Potassium [Moles/Vol] 2.8 mmol/L Low 3.5-5.0 [facility] Comment on above: Performed By: #### N UM #### [facility] ([id number]) [address] [place] [address] 92342 Protein [Mass/Vol] 6.9 g/dL Normal 6.0-8.0 [facility] Comment on above: Performed By: #### N UM #### [facility] ([id number]) [address] [place] [address] 99027 Sodium [Moles/Vol] 135 mmol/L Normal 134-146 [facility] Comment on above: Performed By: #### N UM #### [facility] ([id number]) [address] [place] [address] 14549 Urea nitrogen [Mass/Vol] 7 mg/dL Normal 5-23 [facility] Comment on above: Performed By: #### N UM #### [facility] ([id number]) [address] [place] [address] 76138 Fibronectin. Ql (Vag fl d)on 05-13-2024 FIBRONECTIN Negative Normal NEG [facility] Comment on above: Performed By: #### N UM #### [facility] ([id number]) [address] [place] [address] 55524 STREP B SCREEN CULTUREon S. agalactiae Org specific cx Ql (Vag+Rectum) CULTURE RESULTS NEGATIVE FOR GROUP B STREPTOCOCCUS BY NUCLEIC ACID AMPLIFICATION Normal [facility] Comment on above: Performed By: #### 2 106-3 #### [facility] ([id number]) [address] [place] [address], [place] [address] URINALYSISon 05-13-2024 Bilirubin Ql (U) Negative Normal NEG [facility] Comment on above: Performed By: #### N UM #### [facility] ([id number]) [address] [place] [address], [place] [address] BLOOD/HGB Trace Abnormal NEG [facility] Comment on above: Performed By: #### N UM #### [facility] ([id number]) [address] [place] [address] [place] [address] Color (U) YELLOW Normal YELLOW [facility] Comment on above: Performed By: #### N UM #### [facility] ([id number]) [address] [place] [address], [place] [address] Glucose Ql (U) Negative Normal NEG [facility] Comment on above: Performed By: #### N UM #### [facility] ([id number]) [address] [place] [address] [place] [address] Ketones Ql (U) Negative Normal NEG [facility] Comment on above: Performed By: #### N UM #### [facility] ([id number]) [address] [place] [address] [place] [address] Leukocyte esterase Test strip Ql (U) Large Abnormal NEG [facility] Comment on above: Performed By: #### N UM #### [facility] ([id number]) [address] [place] [address], [place] [address] Nitrite Ql (U) Negative Normal NEG [facility] Comment on above: Performed By: #### N UM #### [facility] ([id number]) [address] [place] [address], [place] [address] pH (U) 7.0 [pH] Normal 5.0-8.5 [facility] Comment on above: Performed By: #### N UM #### [facility] ([id number]) [address] [place] [address] 01477 Protein Ql (U) Negative Normal NEG [facility] Comment on above: Performed By: #### N UM #### [facility] ([id number]) [address] [place] [address] 49240 R.B.CELLS 0 to 1 Normal 0-5 [facility] Comment on above: Performed By: #### N UM #### [facility] ([id number]) [address] [place] [address] 48442 Specific gravity (U) [Rel density] 1.010 Normal 1.003-1.035 [facility] Comment on above: Performed By: #### N UM #### [facility] ([id number]) [address] [place] [address] 04492 SQUAMOUS EPITHELIUM 5 /hpf Normal 0-5 [facility] Comment on above: Performed By: #### N UM #### [facility] ([id number]) [address] [place] [address] 05238 TURBIDITY CLEAR Normal CLEAR [facility] Comment on above: Performed By: #### N UM #### [facility] ([id number]) [address] [place] [address] 47658 Urobilinogen Qn (U) 0.2 {Migue'U}/dL Normal <1.1 [facility] Comment on above: Performed By: #### N UM #### [facility] ([id number]) [address] [place] [address] 55601 W.B.CELLS 5 /hpf Normal 0-5 [facility] Comment on above: Performed By: #### N UM #### [facility] ([id number]) [address] [facility] [place] [address] US BIOPHYSICAL PROFILE FET W O NSTon 05-13-2024 US BIOPHYSICAL PROFILE FET WO NST US BIOPHYSICAL PROFILE FET WO NST US BIOPHYSICAL PROFILE FET WO NST History: Check well-being. Comparison: None Biophysical profile was performed. Real-time imaging of the fetus was performed Impression: * Cephalic position of the fetus. The placenta location is posterior. heart rate is 150 bpm. Amniotic fluid index is 10.0 cm with the deepest pocket being 3.76. Anterior fibroid is appreciated. This measures 3.7 x 1.8 x 2.9 cm. No breathing is seen. The fetus scored 6 out of total 8 points. Continued close clinical follow-up is required. Finalized by Sophia Bueno MD on 05/13/2024 8:41 AM Normal [facility] No Panel Informationon 05-11 STAPHYLOCOCCUS EPIDERMIDIS, HAEMOLYTICUS, LUGDUNENSIS, SAPROPHYTICUS (URINA 0 [facility] STAPHYLOCOCCUS EPIDERMIDIS, HAEMOLYTICUS, LUGDUNENSIS, SAPROPHYTICUS (URINA Not detected [facility] URINARY TRACT INFECTION (HTR X)on 05-11-2024 ACINETOBACTER BAUMANII 0 [facility] ACINETOBACTER BAUMANII Not detected [facility] OZZIE ALBICANS, PARAPSILOSIS, TROPICALIS 0 [facility] OZZIE ALBICANS, PARAPSILOSIS, TROPICALIS Not detected [facility] OZZIE GLABRATA 0 [facility] OZZIE GLABRATA Not detected [facility] OZZIE KRUSEI 0 [facility] OZZIE KRUSEI Not detected [facility] CITROBACTER FREUNDII 0 [facility] CITROBACTER FREUNDII Not detected [facility] ENTEROBACTER AEROGENES, CLOACAE 0 [facility] ENTEROBACTER AEROGENES, CLOACAE Not detected [facility] ENTEROCOCCUS FAECALIS, FAECIUM 0 [facility] ENTEROCOCCUS FAECALIS, FAECIUM Not detected [facility] ESCHERICHIA COLI 0 [facility] ESCHERICHIA COLI Not detected [facility] Interpretation and review of laboratory results Abnormal [facility] KLEBSIELLA PNEUMONIAE, OXYTOCA 19.182 Abnormal [facility] KLEBSIELLA PNEUMONIAE, OXYTOCA Detected Abnormal [facility] MORGANELLA MORGANII 0 [facility] MORGANELLA MORGANII Not detected [facility] PROTEUS MIRABILIS, VULGARIS 0 [facility] PROTEUS MIRABILIS, VULGARIS Not detected [facility] PSEUDOMONAS AERUGINOSA 0 [facility] PSEUDOMONAS AERUGINOSA Not detected [facility] SERRATIA MARCESCENS 0 [facility] SERRATIA MARCESCENS Not detected [facility] STAPHYLOCOCCUS AUREUS 0 [facility] STAPHYLOCOCCUS AUREUS Not detected [facility] STREPTOCOCCUS AGALACTIAE (GROUP B STREP) 0 [facility] STREPTOCOCCUS AGALACTIAE (GROUP B STREP) Not detected [facility] STREPTOCOCCUS PYOGENES (GROUP A STREP) 0 [facility] STREPTOCOCCUS PYOGENES (GROUP A STREP) Not detected [facility] Urinalysis macro (dipstick) panel (U)on 05-10-2024 Bilirubin, UA Negative Negative - 4(70) +++ mg/dL [facility] Blood, UA Negative Negative - 50 Papo/mcL [facility] Clarity, UA Clear [facility] Color, UA Dark Sera [facility] Glucose, UA Negative Negative - 1999(110) ++++ mg/dL [facility] Interpretation and review of laboratory results Abnormal [facility] Ketones, UA Negative Negative - 160(16) ++++ mg/dL [facility] Leukocytes, UA Negative Negative - 500+++ Akash/mcL [facility] Nitrite, UA Positive Negative - Positive [facility] pH, UA 7.5 5 - 9 [facility] Protein, UA Positive Negative - 1999(20) ++++ mg/dL [facility] Comment on above: 30mg/dL Spec Grav, UA 1.02 1 - 1.03 [facility] Urobilinogen, UA 1.0 0.2 - 12 mg/dL [facility] Urinalysis macro (dipstick) panel (U)on 04-12-2024 Bilirubin, UA Negative Negative - 4(70) +++ mg/dL [facility] Blood, UA Negative Negative - 50 Papo/mcL [facility] Clarity, UA Clear [facility] Color, UA Yellow [facility] Glucose, UA Negative Negative - 1999(110) ++++ mg/dL [facility] Interpretation and review of laboratory results Abnormal [facility] Ketones, UA Positive Negative - 160(16) ++++ mg/dL [facility] Leukocytes, UA Negative Negative - 500+++ Akash/mcL [facility] Nitrite, UA Negative Negative - Positive [facility] pH, UA 7 5 - 9 [facility] Protein, UA Negative Negative - 1999(20) ++++ mg/dL [facility] Spec Grav, UA 1.02 1 - 1.03 [facility] Urobilinogen, UA 0.2 0.2 - 12 mg/dL [facility] CHLAMYDIA/GC BY PCRon 2023 CHLAMYDIA/GC BY PCR SPECIMEN SOURCE SWAB CHLAMYDIA DNA(PCR) Negative (qualifier value) Chlamydia trachomatis not detected by nucleic acid amplification. This does not exclude the possibility of infection because results are dependent on adequate specimen collection. GONORRHOEAE DNA(PCR) Negative (qualifier value) Neisseria gonorrhoeae not detected by nucleic acid amplification. This does not exclude the possibility of infection because results are dependent on adequate specimen collection. Normal [facility] Comment on above: Performed By: #### N UM #### [facility] ([id number]) [address] [place] [address] 08469 HIV 1+2 Ab+HIV1 p24 Ag IA Ql on 04-09-2024 HIV 1 and 2 Ab/Ag Screen Non-Reactive Normal NRCT [facility] Comment on above: Result Comment: This information has been disclosed to you from confidential records protected from disclosure by state law. You shall make no further disclosure of this information without the specific, written and informed release of the individual to whom it pertains, or as otherwise permitted by state law. A general authorization for the release of medical or other information is not sufficient for the purpose of the release of HIV test results or diagnoses. Performed By: #### N UM #### [facility] ([id number]) [address] [place] [address] 45419 T. pallidum IgG+IgM IA Ql (S )on 04-09-2024 Syphilis Total <0.2 Normal 0.0-0.8 [facility] Comment on above: Result Comment: NON REACTIVE No serologic evidence of infection to Treponema pallidum (syphilis). Repeat testing may be considered in patients with suspected acute or primary syphilis in 2 to 4 weeks. Performed By: #### N UM #### [facility] ([id number]) [address] [place] [address], [place] [address] URINALYSISon 04-09-2024 Bilirubin Ql (U) Negative Normal NEG [facility] Comment on above: Performed By: #### N UM #### [facility] ([id number]) [address] [place] [address], [place] [address] BLOOD/HGB Negative Normal NEG [facility] Comment on above: Performed By: #### N UM #### [facility] ([id number]) [address] [place] [address], [place] [address] Color (U) YELLOW Normal YELLOW [facility] Comment on above: Performed By: #### N UM #### [facility] ([id number]) [address] [place] [address], [place] [address] Glucose Ql (U) Negative Normal NEG [facility] Comment on above: Performed By: #### N UM #### [facility] ([id number]) [address] [place] [address], [place] [address] Ketones Ql (U) Trace Abnormal NEG [facility] Comment on above: Performed By: #### N UM #### [facility] ([id number]) [address] [place] [address], [place] [address] Leukocyte esterase Test strip Ql (U) Trace Abnormal NEG [facility] Comment on above: Performed By: #### N UM #### [facility] ([id number]) [address] [place] [address], [place] [address] Nitrite Ql (U) Negative Normal NEG [facility] Comment on above: Performed By: #### N UM #### [facility] ([id number]) [address] [place] [address], [place] [address] pH (U) 7.0 [pH] Normal 5.0-8.5 [facility] Comment on above: Performed By: #### N UM #### [facility] ([id number]) [address] [place] [address] 09574 Protein Ql (U) Trace Abnormal NEG [facility] Comment on above: Performed By: #### N UM #### [facility] ([id number]) [address] [place] [address] 02935 R.B.CELLS 2 /hpf Normal 0-5 [facility] Comment on above: Performed By: #### N UM #### [facility] ([id number]) [address] [place] [address] 97907 Specific gravity (U) [Rel density] 1.025 Normal 1.003-1.035 [facility] Comment on above: Performed By: #### N UM #### [facility] ([id number]) [address] [place] [address] 47339 SQUAMOUS EPITHELIUM 4 /hpf Normal 0-5 [facility] Comment on above: Performed By: #### N UM #### [facility] ([id number]) [address] [place] [address] 74534 TURBIDITY CLEAR Normal CLEAR [facility] Comment on above: Performed By: #### N UM #### [facility] ([id number]) [address] [place] [address] 60097 Urobilinogen Qn (U) 0.2 {Migue'U}/dL Normal <1.1 [facility] Comment on above: Performed By: #### N UM #### [facility] ([id number]) [address] [place] [address] 92455 W.B.CELLS 3 /hpf Normal 0-5 [facility] Comment on above: Performed By: #### N UM #### [facility] ([id number]) [address] [place] [address] 057[address] No Panel Informationon 04-06 Interpretation and review of laboratory results Abnormal [facility] 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 YELLOW YELLOW [facility] GLUCOSE URINE UA Negative NEGATIVE mg/dL [facility] Ketones Ql (U) Negative NEGATIVE mg/dL [facility] Leukocyte esterase Test strip Ql (U) SMALL Abnormal NEGATIVE [facility] NITRITE URINE Negative NEGATIVE [facility] pH (U) 7.0 [pH] 5.0 - 9.0 [facility] PROTEIN URINE Negative NEG/TRACE mg/dL [facility] SPECIFIC GRAVITY URINE 1.010 1.005 - 1.025 [facility] URINE MICROSCOPIC INDICATED YES [facility] UROBILINOGEN URINE 1.0 EU/dL 0.2 - 1.0 EU/dL [facility] URINE MICROSCOPIC ONLYon 04-06-2024 BACTERIA URINE TRACE Abnormal NONE SEEN #/HPF [facility] CAST SEEN? NONE SEEN NONE SEEN #/LPF [facility] CRYSTALS SEEN? None Seen None Seen #/HPF [facility] MUCUS URINE NONE SEEN NONE SEEN [facility] SQUAMOUS EPITHELIAL CELL URINE FEW Abnormal NONE/RARE #/LPF [facility] RBC 0-2 [facility] WBC 2-5 Abnormal NONE SEEN #/HPF [facility] URINE CULTURE INDICATED YES [facility] Urinalysis macro (dipstick) panel (U)on 03-15-2024 Bilirubin, UA Negative Negative - 4(70) +++ mg/dL [facility] Blood, UA Negative Negative - 50 Papo/mcL [facility] Clarity, UA Clear [facility] Color, UA Yellow [facility] Glucose, UA Negative Negative - 1999(110) ++++ mg/dL [facility] Interpretation and review of laboratory results Abnormal [facility] Ketones, UA Positive Negative - 160(16) ++++ mg/dL [facility] Leukocytes, UA Positive Negative - 500+++ Akash/mcL [facility] Nitrite, UA Positive Negative - Positive [facility] pH, UA 7 5 - 9 [facility] Protein, UA Positive Negative - 1999(20) ++++ mg/dL [facility] Spec Grav, UA 1.02 1 - 1.03 [facility] Urobilinogen, UA 1.0 0.2 - 12 mg/dL [facility] CHLAMYDIA/GC BY PCRon 2023 CHLAMYDIA/GC BY PCR SPECIMEN SOURCE VAGINAL CHLAMYDIA DNA(PCR) Negative (qualifier value) Chlamydia trachomatis not detected by nucleic acid amplification. This does not exclude the possibility of infection because results are dependent on adequate specimen collection. GONORRHOEAE DNA(PCR) Negative (qualifier value) Neisseria gonorrhoeae not detected by nucleic acid amplification. This does not exclude the possibility of infection because results are dependent on adequate specimen collection. Normal [facility] Comment on above: Performed By: #### C GS #### [facility] ([id number]) [address] [place] [address] [facility] ([id number]) [address] [place] [address] [address] [place] [address] HCG ( test) Ql (U)o n 02-26-2024 Beta HCG ( test) Ql (U) Positive Abnormal NEG [facility] Comment on above: Performed By: #### 2 106-3 #### [facility] ([id number]) [address] [place] [address] 18988 URINE CULTUREon 02-26-2024 Bacteria identified Cx Nom (U) CULTURE RESULTS 10,000 to 50,000 ORGANISMS/mL ESCHERICHIA COLI [ S = SUSCEPTIBLE R = RESISTANT I = INTERMEDIATE S-DO = Susceptible-dose dependent NS = Non-suscceptible NO = No Interpretation ] Organism: ESCHERICHIA COLI Antibiotic Interpretation ZHOU Status AMPICILLIN S <=2 F AMP/SULBACTAM S <=2/1 F CEFAZOLIN S <=4 F CEFTRIAXONE S <=0.25 F CIPROFLOXACIN S <=0.25 F GENTAMICIN S <=1 F LEVOFLOXACIN S <=0.12 F NITROFURANTOIN S 32 F PIPERACIL/TAZOBACTAM S <=4 F TOBRAMYCIN S <=1 F TRIMETH/SULFAMETHOXA ZOLE S <=1/19 F Susceptible [facility] Comment on above: Performed By: #### N UM #### [facility] ([id number]) [address] [place] [address] [place] [address] URN MACROSCOPIC NURon 2023 BILIRUBIN ALEKSANDRA Negative Normal NEG [facility] Comment on above: Performed By: #### N UM #### [facility] ([id number]) [address] [place] [address] 56976 BLOOD/HGB ALEKSANDRA Trace Abnormal NEG [facility] Comment on above: Performed By: #### N UM #### [facility] ([id number]) [address] [place] [address] 20020 GLUCOSE ALEKSANDRA Negative Normal NEG [facility] Comment on above: Performed By: #### N UM #### [facility] ([id number]) [address] [place] [address] 97735 KETONES ALEKSANDRA 80 mg/dL Abnormal NEG [facility] Comment on above: Performed By: #### N UM #### [facility] ([id number]) [address] [place] [address] 38672 LEUKOCYTE ESTERASE ALEKSANDRA Negative Normal NEG [facility] Comment on above: Performed By: #### N UM #### [facility] ([id number]) [address] [place] [address] 59566 NITRITE ALEKSANDRA Negative Normal NEG [facility] Comment on above: Performed By: #### N UM #### [facility] ([id number]) [address] [place] [address] [place] [address] PH ALEKSANDRA 6.0 Normal 5.0-8.5 [facility] Comment on above: Performed By: #### N UM #### [facility] ([id number]) [address] [place] [address] 89949 PROTEIN ALEKSANDRA >=300 Abnormal NEG [facility] Comment on above: Performed By: #### N UM #### [facility] ([id number]) [address] [place] [address] [place] [address] SPECIFIC GRAVITY ALEKSANDRA >=1.030 Normal 1.003-1.035 [facility] Comment on above: Performed By: #### N UM #### [facility] ([id number]) [address] [place] [address] 74191 UROBILINOGEN ALEKSANDRA 1.0 eu/dL Normal <1.1 [facility] Comment on above: Performed By: #### N UM #### [facility] ([id number]) [address] [place] [address] 43829 VAGINITIS PANEL PCRon 2023 VAGINITIS PANEL PCR BACT. VAGINOSIS DNA Detected (qualifier value) Qualitative results are reported based on detection and quantitation of targeted organism markers which include: Lactobacillus spp. (L. crispatus and L. jensenii), Gardnerella vaginalis, Atopobium vaginae, Bacterial Vaginosis Associated Bacteria-2 (BVAB-2) and Megasphaera-1 OZZIE SPECIES DNA Not detected (qualifier value) Ozzie species not detected include: C. albicans, C. tropicalis, C. parapsilosis or C. dubliniensis OZZIE KRUSEI DNA Not detected (qualifier value) No Ozzie krusei detected OZZIE GLABRATA DNA Not detected (qualifier value) No Ozize glabrata detected TRICHOMONAS VAG DNA Not detected (qualifier value) No Trichomonas vaginalis detected NOTE BD MAX Vaginal Panel has not been evaluated for patients under 18 years old. Results for these patients should be reviewed and assessed in accordance with clinical presentation to determine patient diagnosis. Normal [facility] Comment on above: Performed By: #### N UM #### [facility] ([id number]) [address] [place] [address] 99614 URETHRITIS/DISCHARGE PLUS VA GINITIS (HTRX)on 01-31-2024 ATOPOBIUM VAGINAE 20.240 Abnormal [facility] ATOPOBIUM VAGINAE Detected Abnormal [facility] BVAB 2,3 (BACTERIAL VAGINOSIS ASSOCIATED BACTERIA 2, 3); MOBILUNCUS SPP 14.521 Abnormal [facility] BVAB 2,3 (BACTERIAL VAGINOSIS ASSOCIATED BACTERIA 2, 3); MOBILUNCUS SPP Detected Abnormal [facility] OZZIE ALBICANS, PARAPSILOSIS, TROPICALIS 0.000 [facility] OZZIE ALBICANS, PARAPSILOSIS, TROPICALIS Not detected [facility] OZZIE GLABRATA 0.000 [facility] OZZIE GLABRATA Not detected [facility] OZZIE KRUSEI 0.000 [facility] OZZIE KRUSEI Not detected [facility] CHLAMYDIA TRACHOMATIS 0.000 [facility] CHLAMYDIA TRACHOMATIS Not detected N [facility] ERMB, C; MEFA 22.470 Abnormal [facility] ERMB, C; MEFA Detected Abnormal [facility] GARDNERELLA VAGINALIS 25.182 Abnormal [facility] GARDNERELLA VAGINALIS Detected Abnormal [facility] Interpretation and review of laboratory results Abnormal [facility] MEGASPHAERA (TYPES 1, 2) 21.331 Abnormal [facility] MEGASPHAERA (TYPES 1, 2) Detected Abnormal [facility] MYCOPLASMA GENITALIUM 0.000 [facility] MYCOPLASMA GENITALIUM Not detected N [facility] NEISSERIA GONORRHOEAE 0.000 [facility] NEISSERIA GONORRHOEAE Not detected N [facility] TET B, TET M 22.938 Abnormal [facility] TET B, TET M Detected Abnormal [facility] TRICHOMONAS VAGINALIS 0.000 [facility] TRICHOMONAS VAGINALIS Not detected N [facility] Urinalysis macro (dipstick) panel (U)on 01-29-2024 Bilirubin, UA Positive Negative - 4(70) +++ mg/dL [facility] Comment on above: small Blood, UA Negative Negative - 50 Papo/mcL [facility] Clarity, UA Cloudy [facility] Color, UA Yellow [facility] Glucose, UA Negative Negative - 1999(110) ++++ mg/dL [facility] Interpretation and review of laboratory results Abnormal [facility] Ketones, UA Positive Negative - 160(16) ++++ mg/dL [facility] Comment on above: trace Leukocytes, UA Negative Negative - 500+++ Akash/mcL [facility] Nitrite, UA Positive Negative - Positive [facility] pH, UA 6.0 5 - 9 [facility] Protein, UA Trace Negative - 2000(20) ++++ mg/dL [facility] Spec Grav, UA 1.030 1 - 1.03 [facility] Urobilinogen, UA 4.0 0.2 - 12 mg/dL [facility] ALL CBC WITH AUTO DIFFon BASOPHILS ABSOLUTE AUTO 0.0 [facility] Basophils/100 WBC (Bld) 0.3 % 0.2 - 2.0 % [facility] Eosinophils/100 WBC (Bld) 2.3 % 0.9 - 7.0 % [facility] Erythrocyte distribution width (RBC) [Ratio] 12.7 % 11.0 - 15.0 % [facility] Hematocrit (Bld) [Volume fraction] 31.8 % Low 36.0 - 48.0 % [facility] Hemoglobin (Bld) [Mass/Vol] 10.3 g/dL Low 12.0 - 16.0 g/dL [facility] IMMATURE GRANULOCYTES ABS AUTO 0.05 High [facility] Immature granulocytes/100 WBC (Bld) 0.4 % 0.0 - 0.5 % [facility] Interpretation and review of laboratory results Abnormal [facility] LYMPHOCYTES ABSOLUTE AUTO 2.4 [facility] Lymphocytes/100 WBC (Bld) 21.2 % 20.5 - 60.0 % [facility] MCH (RBC) [Entitic mass] 29.9 pg 26.7 - 34.0 pg [facility] MCHC (RBC) [Mass/Vol] 32.4 g/dL 29.9 - 35.2 g/dL [facility] MCV (RBC) [Entitic vol] 92.2 fL 81.0 - 99.0 fL [facility] MONOCYTES ABSOLUTE AUTO 0.8 [facility] Monocytes/100 WBC (Bld) 6.9 % 1.7 - 12.0 % [facility] NEUTROPHILS ABSOLUTE AUTO 8.0 High [facility] Neutrophils/100 WBC (Bld) 68.9 % 43.0 - 75.0 % [facility] Platelet mean volume (Bld) [Entitic vol] 10.9 fL 9.5 - 13.5 fL [facility] TBH EO # 0.3 [facility] TBH PLT 385 [facility] RBC 3.45 Low [facility] TB WBC 11.5 High [facility] ALL TYPE AND SCREENon 2023 ABO and Rh group Nom (Bld) Blood group B Rh(D) positive [facility] MLR HEMOGLOBIN A1Con 024 Glucose [Mass/Vol] 82 mg/dL [facility] HbA1c (Bld) [Mass fraction] 4.5 % 4.5 - 6.2 % [facility] Comment on above: ADA RECOMMENDED LIMI T 4.0 - 6.0 ADA THERAPEUTIC TARGET < 7.0 ACTION SUGGESTED > 7.0 [facility] CBC AND AUTO DIFFon 12-20-19 24 ABSOLUTE BASOPHIL 0.1 X10E9/L Normal 0.0-0.2 [facility] Comment on above: Performed By: #### C CEE ATKINSON, #### [facility] ([id number]) [address] [place] [address] 54745 ABSOLUTE NEUTROPHIL 11.7 X10E9/L High 1.5-6.6 [facility] Comment on above: Performed By: #### Marco Antonio ATKINSON CMP, #### [facility] ([id number]) [address] [place] [address] 62752 Basophils/100 WBC (Bld) 0.4 % Normal [facility] Comment on above: Performed By: #### Marco Antonio ATKINSON CMP, #### [facility] ([id number]) [address] [place] [address] 84511 Eosinophils (Bld) [#/Vol] 0.3 10*3/uL Normal 0.0-0.4 [facility] Comment on above: Performed By: #### Marco Antonio ATKINSON CMP, #### [facility] ([id number]) [address] [place] [address] 30198 Eosinophils/100 WBC (Bld) 1.6 % Normal [facility] Comment on above: Performed By: #### Marco Antonio ATKINSON CMP, #### [facility] ([id number]) [address] [place] [address] 12129 Erythrocyte distribution width (RBC) [Ratio] 13.0 % Normal 11.5-15.0 [facility] Comment on above: Performed By: #### Marco Antonio ATKINSON CMP, #### [facility] ([id number]) [address] [place] [address] 49543 Hematocrit (Bld) [Volume fraction] 33.1 % Low 35-47 [facility] Comment on above: Performed By: #### C CHINA CMP, #### [facility] ([id number]) [address] [place] [address] 28972 Hemoglobin (Bld) [Mass/Vol] 11.1 g/dL Low 11.7-15.5 [facility] Comment on above: Performed By: #### Marco Antonio ATKINSON CMP, #### [facility] ([id number]) [address] [place] [address] 91574 Lymphocytes (Bld) [#/Vol] 2.6 10*3/uL Normal 1.0-3.5 [facility] Comment on above: Performed By: #### Marco Antonio ATKINSON [facility], #### [facility] ([id number]) [address] [place] [address] 32734 Lymphocytes/100 WBC (Bld) 16.5 % Normal [facility] Comment on above: Performed By: #### Marco Antonio ATKINSON CMP, #### [facility] ([id number]) [address] [place] [address] 64076 MCH (RBC) [Entitic mass] 30.3 pg Normal 27-34 [facility] Comment on above: Performed By: #### C CHINA CMP, #### [facility] ([id number]) [address] [place] [address] 87260 MCHC (RBC) [Mass/Vol] 33.6 g/dL Normal 32-36 [facility] Comment on above: Performed By: #### Marco Antonio ATKINSON, CMP, #### [facility] ([id number]) [address] [place] [address] [place] [address] MCV (RBC) [Entitic vol] 90 fL Normal 80-100 [facility] Comment on above: Performed By: #### Marco Antonio ATKINSON CMP, #### [facility] ([id number]) [address] [place] [address] 73279 Monocytes (Bld) [#/Vol] 1.2 10*3/uL High 0-0.9 [facility] Comment on above: Performed By: #### Marco Antonio ATKINSON CMP, #### [facility] ([id number]) [address] [place] [address] 46175 Monocytes/100 WBC (Bld) 7.5 % Normal [facility] Comment on above: Performed By: #### Marco Antonio ATKINSON CMP, #### [facility] ([id number]) [address] [place] [address] 39160 Neutrophils/100 WBC (Bld) 74.0 % Normal [facility] Comment on above: Performed By: #### Marco Antonio ATKINSON CMP, #### [facility] ([id number]) [address] [place] [address] 80009 Platelet mean volume (Bld) [Entitic vol] 9.1 fL Normal 7-12 [facility] Comment on above: Performed By: #### Marco Antonio ATKINSON CMP, #### [facility] ([id number]) [address] [place] [address] 79139 Platelets (Bld) [#/Vol] 385 10*3/uL Normal 150-450 [facility] Comment on above: Performed By: #### Marco Antonio ATKINSON CMP, #### [facility] ([id number]) [address] [place] [address] 40098 RBC COUNT 3.67 X10E12/L Low 3.80-5.20 [facility] Comment on above: Performed By: #### C BCA, CMP, #### [facility] ([id number]) [address] [place] [address] 10349 WBC (Bld) [#/Vol] 15.8 10*3/uL High 4.0-11.0 [facility] Comment on above: Performed By: #### C BCA, CMP, #### [facility] ([id number]) [address] [place] [address] 43814 COMPREHENSIVE METABOLIC PANE Baljit 12-20-2023 Albumin [Mass/Vol] 4.2 g/dL Normal 3.2-5.3 [facility] Comment on above: Performed By: #### C BCA, CMP, #### [facility] ([id number]) [address] [place] [address] 77817 ALP [Catalytic activity/Vol] 39 U/L Normal 39-130 [facility] Comment on above: Performed By: #### C BCA, CMP, #### [facility] ([id number]) [address] [place] [address] 80864 ALT [Catalytic activity/Vol] 14 U/L Normal 0-31 [facility] Comment on above: Performed By: #### C BCA, CMP, #### [facility] ([id number]) [address] [place] [address] 65716 Anion gap [Moles/Vol] 6 mmol/L Normal 5-15 [facility] Comment on above: Performed By: #### C BCA, CMP, #### [facility] ([id number]) [address] [place] [address] 85693 AST [Catalytic activity/Vol] 20 U/L Normal 0-41 [facility] Comment on above: Performed By: #### C BCA, CMP, #### [facility] ([id number]) [address] [place] [address] 28705 Bilirubin [Mass/Vol] 0.6 mg/dL Normal 0.3-1.2 [facility] Comment on above: Performed By: #### C CEE ATKINSON, #### [facility] ([id number]) [address] [place] [address] 11562 Calcium [Mass/Vol] 8.9 mg/dL Normal 8.5-10.5 [facility] Comment on above: Performed By: #### C CEE ATKINSON, #### [facility] ([id number]) [address] [place] [address] 54051 Chloride [Moles/Vol] 104 mmol/L Normal 98-109 [facility] Comment on above: Performed By: #### C CEE ATKINSON, #### [facility] ([id number]) [address] [place] [address] 46652 CO2 [Moles/Vol] 22 mmol/L Normal 22-32 [facility] Comment on above: Performed By: #### C CEE ATKINSON, #### [facility] ([id number]) [address] [place] [address] 85367 Creatinine [Mass/Vol] 0.56 mg/dL Normal 0.40-1.00 [facility] Comment on above: Result Comment: METH OD TRACEABLE TO IDMS STANDARD Performed By: #### C CEE ATKINSON, #### [facility] ([id number]) [address] [place] [address] 42690 eGFR (CKD-EPI) NON-RACE DEPENDENT >90 Normal >59 [facility] Comment on above: Result Comment: Reported eGFR is based on the CKD-EPI 2020 equation that does not use a race coefficient. Performed By: #### C CHINA CMP, #### [facility] ([id number]) [address] [place] [address] 60789 Glucose [Mass/Vol] 112 mg/dL High 65-99 [facility] Comment on above: Performed By: #### C CEE ATKINSON, #### [facility] ([id number]) [address] [place] [address] 88208 Potassium [Moles/Vol] 3.2 mmol/L Low 3.5-5.0 [facility] Comment on above: Performed By: #### C CEE ATKINSON, #### [facility] ([id number]) [address] [place] [address] 96293 Protein [Mass/Vol] 7.6 g/dL Normal 6.0-8.0 [facility] Comment on above: Performed By: #### C CHINA [facility], #### [facility] ([id number]) [address] [place] [address] 63961 Sodium [Moles/Vol] 132 mmol/L Low 134-146 [facility] Comment on above: Performed By: #### C CHINA [facility], #### [facility] ([id number]) [address] [place] [address] 47747 Urea nitrogen [Mass/Vol] 9 mg/dL Normal 5-23 [facility] Comment on above: Performed By: #### C CHINA, [facility], #### [facility] ([id number]) [address] [place] [address] 48308 HCG ( test) Ql (U)o n 12-20-2023 Beta HCG ( test) Ql (U) Positive Abnormal NEG [facility] Comment on above: Performed By: #### 2 106-3 #### [facility] ([id number]) [address] [place] [address] 44031 HCG.beta subunit IA 3rd IS Q non 12-20-2023 [place] [address] m[IU]/mL Normal P [facility] Comment on above: Result Comment: NEW REFERENCE [...] neoplasms. Performed By: #### C BCA, CMP, [id number] #### [facility] ([id number]) [address] [place] [address] 34684 URINE CULTUREon 12-20-2023 Bacteria identified Cx Nom (U) CULTURE RESULTS NO GROWTH AT <1000 CFU/mL [facility] Comment on above: Performed By: #### 6 30-4 #### [facility] ([id number]) [address] [place] [address], [address] [place] [address] URN MACROSCOPIC NURon 2023 BILIRUBIN ALEKSANDRA Negative Normal NEG [facility] Comment on above: Performed By: #### N UM #### [facility] ([id number]) [address] [place] [address] 49535 BLOOD/HGB ALEKSANDRA Trace Abnormal NEG [facility] Comment on above: Performed By: #### N UM #### [facility] ([id number]) [address] [place] [address] 01865 GLUCOSE ALEKSANDRA Negative Normal NEG [facility] Comment on above: Performed By: #### N UM #### [facility] ([id number]) [address] [place] [address] 60520 KETONES ALEKSANDRA Negative Normal NEG [facility] Comment on above: Performed By: #### N UM #### [facility] ([id number]) [address] [place] [address] 86522 LEUKOCYTE ESTERASE ALEKSANDRA Trace Abnormal NEG Pr [facility] Comment on above: Performed By: #### N UM #### [facility] ([id number]) [address] [place] [address] 39789 NITRITE ALEKSANDRA Negative Normal NEG [facility] Comment on above: Performed By: #### N UM #### [facility] ([id number]) [address] [place] [address] 02437 PH ALEKSANDRA 6.5 Normal 5.0-8.5 [facility] Comment on above: Performed By: #### N UM #### [facility] ([id number]) [address] [place] [address] 02408 PROTEIN ALEKSANDRA Negative Normal NEG [facility] Comment on above: Performed By: #### N UM #### [facility] ([id number]) [address] [place] [address] 37198 SPECIFIC GRAVITY ALEKSANDRA 1.010 Normal 1.003-1.035 [facility] Comment on above: Performed By: #### N UM #### [facility] ([id number]) [address] [place] [address] 08971 UROBILINOGEN ALEKSANDRA 1.0 eu/dL Normal <1.1 [facility] Comment on above: Performed By: #### N UM #### [facility] ([id number]) [address] [place] [address] 44070 Hgb Electrophoresison 2023 Hgb Elect.Interp. Normal Hb electrophoretic pattern. HbA = 97.2% HbA2 = 2.8% Normal Values Normal [facility] Comment on above: Result Comment: (Hem oglobin A= 96.8 to 97.8% Hemoglobin A2= 2.2 to 3.2%) Performed By: #### F EBC, HGBE, B12FOL #### [address] [address] Research Professor Of Biostatistics: Severino Jacobson MD #### RETCT, CDP, FERI #### [facility] [address] [place] [address] Research Professor Of Biostatistics: Lukasz Puga MD Pathologist Review: ELECTRONICALLY SIGNED. AUTUMN MENDOZA M.D. [facility] Comment on above: Performed By: #### F EBC, HGBE, B12FOL #### [address] [address] Research Professor Of Biostatistics: Severino Jacobson MD #### VALENCIA, CDP, FERI #### [facility] [address] [place] [address] Research Professor Of Biostatistics: Lukasz Puga MD Smear to Pathologiston 12-07 Smear to Pathologist ELECTRONICALLY SIGNED. MITA REGAN M.D. [facility] Comment on above: Performed By: #### P ATH #### [address] [address] Research Professor Of Biostatistics: Severino Jacobson MD B12/Folate Panelon Cobalamin (Vitamin B12) [Mass/Vol] 717 pg/mL Normal 232-1245 [facility] Comment on above: Performed By: #### F EBC, HGBE, B12FOL #### [facility] [employer] [address] [place] [address] Research Professor Of Biostatistics: Severino Jacobson MD #### RETCT, CDP, FERI #### [facility] [place] [address] Research Professor Of Biostatistics: Lukasz Puga MD Folic Acid 12.2 ng/mL Normal 4.8-24.2 [facility] Comment on above: Performed By: #### F EBC, HGBE, B12FOL #### [address] [address] Research Professor Of Biostatistics: Severino Jacobson MD #### RETCT, CDP, FERI #### [facility] [address] [place] [address] Research Professor Of Biostatistics: Lukasz Puga MD CBC with Diffon 12-05-2023 Abs. Atypical Lymphs 0.14 k/uL Normal [facility] Comment on above: Performed By: #### F EBC, HGBE, B12FOL #### [address] [address] Research Professor Of Biostatistics: Severino Jacobson MD #### RETCT, CDP, FERI #### [facility] [address] [place] [address] Research Professor Of Biostatistics: Lukasz Puga MD Abs. Basophil 0.07 k/uL Normal 0.0-0.2 [facility] Comment on above: Performed By: #### F EBC, HGBE, B12FOL #### [address] [address] Research Professor Of Biostatistics: Severino Jacobson MD #### RETCT, CDP, FERI #### [facility] [address] [place] [address] Research Professor Of Biostatistics: Lukasz Puga MD Abs.Imm.Granulocyte 0.00 k/uL Normal 0.00-0.30 [facility] Comment on above: Performed By: #### F EBC, HGBE, B12FOL #### [address] [address] Research Professor Of Biostatistics: Severino Jacobson MD #### VALENCIA, CDP, FERI #### [facility] [address] [place] [address] Research Professor Of Biostatistics: Lukasz Puga MD Abs.Neutrophil (Seg) 2.80 k/uL Normal 1.8-7.7 [facility] Comment on above: Performed By: #### F EBC, HGBE, B12FOL #### [address] [address] Research Professor Of Biostatistics: Severino Jacobson MD #### VALENCIA, CDP, FERI #### [facility] [address] [place] [address] Research Professor Of Biostatistics: Lukasz Puga MD Atypical Lymphs 2 % Normal [facility] Comment on above: Performed By: #### F EBC, HGBE, B12FOL #### [address] [address] Research Professor Of Biostatistics: Severino Jacobson MD #### VALENCIA, CDP, FERI #### [facility] [address] [place] [address] Research Professor Of Biostatistics: Lukasz Puga MD Basophils/100 WBC (Bld) 1 % Normal [facility] Comment on above: Performed By: #### F EBC, HGBE, B12FOL #### [address] [address] Research Professor Of Biostatistics: Severino Jacobson MD #### VALENCIA, CDP, FERI #### [facility] [address] [place] [address] Research Professor Of Biostatistics: Lukasz Puga MD Eosinophils (Bld) [#/Vol] 0.07 10*3/uL Normal 0.0-0.4 [facility] Comment on above: Performed By: #### F EBC, HGBE, B12FOL #### [address] [address] Research Professor Of Biostatistics: Severino Jacobson MD #### RETCT, CDP, FERI #### [facility] [address] [place] [address] Research Professor Of Biostatistics: Lukasz Puga MD Eosinophils/100 WBC (Bld) 1 % Normal 1-4 [facility] Comment on above: Performed By: #### F EBC, HGBE, B12FOL #### [address] [address] Research Professor Of Biostatistics: Severino Jacobson MD #### RETCT, CDP, FERI #### [facility] [address] [place] [address] Research Professor Of Biostatistics: Lukasz Puga MD Immature granulocytes/100 WBC (Bld) 0 % Normal 0 [facility] Comment on above: Performed By: #### F EBC, HGBE, B12FOL #### [address] [address] Research Professor Of Biostatistics: Severino Jacobson MD #### FINNCT, CDP, FERI #### [facility] [address] [place] [address] Research Professor Of Biostatistics: Lukasz Puga MD Lymphocytes (Bld) [#/Vol] 3.29 10*3/uL Normal 1.0-4.8 [facility] Comment on above: Performed By: #### F EBC, HGBE, B12FOL #### [address] [address] Research Professor Of Biostatistics: Severino Jacobson MD #### RETCT, CDP, FERI #### [facility] [address] [place] [address] Research Professor Of Biostatistics: Lukasz Puga MD Lymphocytes/100 WBC (Bld) 47 % High 24-44 [facility] Comment on above: Performed By: #### F EBC, HGBE, B12FOL #### [address] [address] Research Professor Of Biostatistics: Severino Jacobson MD #### RETCT, CDP, FERI #### [facility] [address] [place] [address] Research Professor Of Biostatistics: Lukasz Puga MD Monocytes (Bld) [#/Vol] 0.63 10*3/uL Normal 0.2-0.8 [facility] Comment on above: Performed By: #### F EBC, HGBE, B12FOL #### [address] [address] Research Professor Of Biostatistics: Severino Jacobson MD #### RETCT, CDP, FERI #### [facility] [address] [place] [address] Research Professor Of Biostatistics: Lukasz Puga MD Monocytes/100 WBC (Bld) 9 % High 1-7 [facility] Comment on above: Performed By: #### F EBC, HGBE, B12FOL #### [address] [address] Research Professor Of Biostatistics: Severino Jacobson MD #### RETCT, CDP, FERI #### [facility] [address] [place] [address] Research Professor Of Biostatistics: Lukasz Puga MD Neutrophil (Seg) 40 % Normal 36-66 [facility] Comment on above: Performed By: #### F EBC, HGBE, B12FOL #### [address] [address] Research Professor Of Biostatistics: Severino Jacobson MD #### RETCT, CDP, FERI #### [facility] [address] [place] [address] Research Professor Of Biostatistics: Lukasz Puga MD Erythrocyte distribution width (RBC) [Ratio] 12.6 % Normal 11.8-14.4 [facility] Comment on above: Performed By: #### F EBC, HGBE, B12FOL #### [address] [address] Research Professor Of Biostatistics: Severino Jacobson MD #### RETCT, CDP, FERI #### [facility] [address] [place] [address] Research Professor Of Biostatistics: Lukasz Puga MD Hematocrit (Bld) [Volume fraction] 31.0 % Low 36.3-47.1 [facility] Comment on above: Performed By: #### F EBC, HGBE, B12FOL #### [address] [address] Research Professor Of Biostatistics: Severino Jacobson MD #### RETCT, CDP, FERI #### [facility] [address] [place] [address] Research Professor Of Biostatistics: Lukasz Puga MD Hemoglobin (Bld) [Mass/Vol] 9.9 g/dL Low 11.9-15.1 [facility] Comment on above: Performed By: #### F EBC, HGBE, B12FOL #### [address] [address] Research Professor Of Biostatistics: Severino Jacobson MD #### RETCT, CDP, FERI #### [facility] [address] [place] [address] Research Professor Of Biostatistics: Lukasz Puga MD MCH (RBC) [Entitic mass] 29.8 pg Normal 25.2-33.5 [facility] Comment on above: Performed By: #### F EBC, HGBE, B12FOL #### [address] [address] Research Professor Of Biostatistics: Severino Jacobson MD #### RETCT, CDP, FERI #### [facility] [address] [place] [address] Research Professor Of Biostatistics: Lukasz Puga MD MCHC (RBC) [Mass/Vol] 31.9 g/dL Normal 28.4-34.8 [facility] Comment on above: Performed By: #### F EBC, HGBE, B12FOL #### [address] [address] Research Professor Of Biostatistics: Severino Jacobson MD #### RETCT, CDP, FERI #### [facility] [address] [place] [address] Research Professor Of Biostatistics: Lukasz Puga MD MCV (RBC) [Entitic vol] 93.4 fL Normal 82.6-102.9 [facility] Comment on above: Performed By: #### F EBC, HGBE, B12FOL #### [address] [address] Research Professor Of Biostatistics: Severino Jacobson MD #### RETCT, CDP, FERI #### [facility] [address] [place] [address] Research Professor Of Biostatistics: Lukasz Puga MD NRBC Automated 0.0 per 100 WBC Normal 0.0 [facility] Comment on above: Performed By: #### F EBC, HGBE, B12FOL #### [address] [address] Research Professor Of Biostatistics: Severino Jacobson MD #### RETCT, CDP, FERI #### [facility] [address] [place] [address] Research Professor Of Biostatistics: Lukasz Puga MD Platelet mean volume (Bld) [Entitic vol] 9.9 fL Normal 8.1-13.5 [facility] Comment on above: Performed By: #### F EBC, HGBE, B12FOL #### [address] [address] Research Professor Of Biostatistics: Severino Jacobson MD #### RETCT, CDP, FERI #### [facility] [place] [address] Research Professor Of Biostatistics: Lukasz Puga MD Platelets (Bld) [#/Vol] 296 10*3/uL Normal 138-453 [facility] Comment on above: Performed By: #### F EBC, HGBE, B12FOL #### [address] [address] Research Professor Of Biostatistics: Severino Jacobson MD #### RETCT, CDP, FERI #### [facility] [address] [place] [address] Research Professor Of Biostatistics: Lukasz Puga MD RBC (Bld) [#/Vol] 3.32 10*6/uL Low 3.95-5.11 [facility] Comment on above: Performed By: #### F EBC, HGBE, B12FOL #### [address] [address] Research Professor Of Biostatistics: Severino Jacobson MD #### RETCT, CDP, FERI #### [facility] [address] [place] [address] Research Professor Of Biostatistics: Lukasz Puga MD WBC (Bld) [#/Vol] 7.0 10*3/uL Normal 3.5-11.3 [facility] Comment on above: Performed By: #### F EBC, HGBE, B12FOL #### [address] [address] Research Professor Of Biostatistics: Severino Jacobson MD #### RETCT, CDP, FERI #### [facility] [address] [place] [address] Research Professor Of Biostatistics: Lukasz Puga MD Ferritinon 12-05-2023 Ferritin [Mass/Vol] 39 ng/mL Normal 13-150 [facility] Comment on above: Performed By: #### F EBC, HGBE, B12FOL #### [address] [address] Research Professor Of Biostatistics: Severino Jacobson MD #### RETCT, CDP, FERI #### [facility] [address] [place] [address] Research Professor Of Biostatistics: Lukasz Puga MD Iron Binding Cap.on 12-05-19 24 % Fe Saturation 14 % Low 20-55 [facility] Comment on above: Performed By: #### F EBC, HGBE, B12FOL #### [address] [address] Research Professor Of Biostatistics: Severino Jacobson MD #### RETCT, CDP, FERI #### [facility] [address] [place] [address] Research Professor Of Biostatistics: Lukasz Puga MD Iron [Mass/Vol] 42 ug/dL Normal 37-145 [facility] Comment on above: Performed By: #### F EBC, HGBE, B12FOL #### [address] [address] Research Professor Of Biostatistics: Severino Jacobson MD #### RETCT, CDP, FERI #### [facility] [address] [place] [address] Research Professor Of Biostatistics: Lukasz Puga MD Total Fe Binding Cap 310 ug/dL Normal 250-450 [facility] Comment on above: Performed By: #### F EBC, HGBE, B12FOL #### [address] [address] Research Professor Of Biostatistics: Severino Jacobson MD #### RETCT, CDP, FERI #### [facility] [address] [place] [address] Research Professor Of Biostatistics: Lukasz Puga MD Unbound Fe Bind Cap 268 ug/dL Normal 112-347 [facility] Comment on above: Performed By: #### F EBC, HGBE, B12FOL #### [address] [address] Research Professor Of Biostatistics: Severino Jacobson MD #### RETCT, CDP, FERI #### [facility] [address] [place] [address] Research Professor Of Biostatistics: Lukasz Puga MD Retic Counton 12-05-2023 Absolute Retic 0.062 M/uL Normal 0.030-0.080 [facility] Comment on above: Performed By: #### F EBC, HGBE, B12FOL #### [address] [address] Research Professor Of Biostatistics: Severino Jacobson MD #### RETCT, CDP, FERI #### [facility] [address] [place] [address] Research Professor Of Biostatistics: Lukasz Puga MD IRF 9.6 % Normal 2.7-18.3 [facility] Comment on above: Performed By: #### F EBC, HGBE, B12FOL #### [address] [address] Research Professor Of Biostatistics: Severino Jacobson MD #### RETCT, CDP, FERI #### [facility] [address] [place], [place] [phone] Research Professor Of Biostatistics: Lukasz Puga MD Retic Count 1.8 % Normal 0.5-1.9 [facility] Comment on above: Performed By: #### F EBC, HGBE, B12FOL #### [address] [phone] Research Professor Of Biostatistics: Severino Jacobson MD #### RETCT, CDP, FERI #### [facility] [address] [place] [address] [phone] Research Professor Of Biostatistics: Lukasz Puga MD Retic Hemoglobin 28.8 pg Normal 28.2-35.7 [facility] Comment on above: Performed By: #### F EBC, HGBE, B12FOL #### [address] [phone] Research Professor Of Biostatistics: Severino Jacobson MD #### RETCT, CDP, FERI #### [facility] [address] [place] [address] [phone] Research Professor Of Biostatistics: Lukasz Puga MD Surgical Pathology Reporton 12-05-2023 Surgical Pathology Report (NOTE) [id number] [facility] ANATOMIC PATHOLOGY [address] [place] [id number] SURGICAL PATHOLOGY CONSULTATION Patient Name: HOMERO DE LEON MR#: [id number] Specimen #[id number] Procedures/Addenda PERIPHERAL BLOOD REPORT Date Ordered: 12/07/2023 Status: Signed Out Date Complete: 12/08/2023 By: Mita Regan M.D. Date Reported: 12/08/2023 INTERPRETATION Peripheral blood: - Normocytic normochromic anemia with unremarkable red blood cell morphology. - White blood cells with normal morphology. No blasts. - Platelets with unremarkable morphology. RESULTS-COMMENTS PERIPHERAL BLOOD STUDY CBC: Please see the electronic health record for CBC parameters ([id number], 12/05/2023, 13:35). PLATELETS: Platelets show normal morphology. LEUKOCYTES: White blood cells show normal morphology. No atypical lymphocytes. No dysplasia. There are no blasts. ERYTHROCYTES: Normocytic normochromic anemia. Red blood cells show normal morphology. Note: The electronic health record is reviewed. Mita Regan M.D. Source: A: Peripheral Blood Normal [facility] CBC with Diffon 11-06-2023 Abs. Basophil 0.04 k/uL Normal 0.00-0.20 [facility] Comment on above: Performed By: #### C DP CP, LIPRF #### [place] [address] Research Professor Of Biostatistics: Severino Jacobson MD Abs.Imm.Granulocyte <0.03 Normal 0.00-0.30 [facility] Comment on above: Performed By: #### C DP CP, LIPRF #### [place] [address] Research Professor Of Biostatistics: Severino Jacobson MD Abs.Neutrophil (Seg) 4.76 k/uL Normal 1.50-8.10 [facility] Comment on above: Performed By: #### C DP CP, LIPRF #### [place] [address] Research Professor Of Biostatistics: Severino Jacobson MD Basophils/100 WBC (Bld) 1 % Normal 0-2 [facility] Comment on above: Performed By: #### C DP, CP, LIPRF #### [place] [address] Research Professor Of Biostatistics: Severino Jacobson MD Eosinophils (Bld) [#/Vol] 0.24 10*3/uL Normal 0.00-0.44 [facility] Comment on above: Performed By: #### C DP, CP, LIPRF #### [place] [address] Research Professor Of Biostatistics: Severino Jacobson MD Eosinophils/100 WBC (Bld) 3 % Normal 1-4 [facility] Comment on above: Performed By: #### C DP, CP, LIPRF #### [address] [address] Research Professor Of Biostatistics: Severino Jacobson MD Erythrocyte distribution width (RBC) [Ratio] 12.3 % Normal 11.8-14.4 [facility] Comment on above: Performed By: #### C DP, CP, LIPRF #### [address] [address] Research Professor Of Biostatistics: Severino Jacobson MD Hematocrit (Bld) [Volume fraction] 35.5 % Low 36.3-47.1 [facility] Comment on above: Performed By: #### C DP, CP, LIPRF #### [address] [address] Research Professor Of Biostatistics: Severino Jacobson MD Hemoglobin (Bld) [Mass/Vol] 11.2 g/dL Low 11.9-15.1 [facility] Comment on above: Performed By: #### C DP, CP, LIPRF #### [address] [address] Research Professor Of Biostatistics: Severino Jacobson MD Immature granulocytes/100 WBC (Bld) 0 % Normal 0 [facility] Comment on above: Performed By: #### C DP, CP, LIPRF #### [address] [address] Research Professor Of Biostatistics: Severino Jacobson MD Lymphocytes (Bld) [#/Vol] 2.47 10*3/uL Normal 1.10-3.70 [facility] Comment on above: Performed By: #### C DP, CP, LIPRF #### [address] [address] Research Professor Of Biostatistics: Severino Jacobson MD Lymphocytes/100 WBC (Bld) 31 % Normal 24-43 [facility] Comment on above: Performed By: #### C DP, CP, LIPRF #### [address] [address] Research Professor Of Biostatistics: Severino Jacobson MD MCH (RBC) [Entitic mass] 29.6 pg Normal 25.2-33.5 [facility] Comment on above: Performed By: #### C DP, CP, LIPRF #### [address] [address] Research Professor Of Biostatistics: Severino Jacobson MD MCHC (RBC) [Mass/Vol] 31.5 g/dL Normal 28.4-34.8 [facility] Comment on above: Performed By: #### C DP, CP, LIPRF #### [address] [address] Research Professor Of Biostatistics: Severino Jacobson MD MCV (RBC) [Entitic vol] 93.9 fL Normal 82.6-102.9 [facility] Comment on above: Performed By: #### C DP, CP, LIPRF #### [address] [address] Research Professor Of Biostatistics: Severino Jacobson MD Monocytes (Bld) [#/Vol] 0.56 10*3/uL Normal 0.10-1.20 [facility] Comment on above: Performed By: #### C DP, CP, LIPRF #### [address] [address] Research Professor Of Biostatistics: Severino Jacobson MD Monocytes/100 WBC (Bld) 7 % Normal 3-12 [facility] Comment on above: Performed By: #### C DP, CP, LIPRF #### [address] [address] Research Professor Of Biostatistics: Severino Jacobson MD Neutrophil (Seg) 58 % Normal 36-65 [facility] Comment on above: Performed By: #### C DP CP, LIPRF #### [address] [address] Research Professor Of Biostatistics: Severino Jacobson MD NRBC Automated 0.0 per 100 WBC Normal 0.0 [facility] Comment on above: Performed By: #### C DP, CP, LIPRF #### [address] [address] Research Professor Of Biostatistics: Severino Jacobson MD Platelet mean volume (Bld) [Entitic vol] 10.5 fL Normal 8.1-13.5 [facility] Comment on above: Performed By: #### C DP CP, LIPRF #### [address] [address] Research Professor Of Biostatistics: Severino Jacobson MD Platelets (Bld) [#/Vol] 501 10*3/uL High 138-453 [facility] Comment on above: Performed By: #### C DP CP, LIPRF #### [address] [address] Research Professor Of Biostatistics: Severino Jacobson MD RBC (Bld) [#/Vol] 3.78 10*6/uL Low 3.95-5.11 [facility] Comment on above: Performed By: #### C DP, CP, LIPRF #### [address] [address] Research Professor Of Biostatistics: Severino Jacobson MD WBC (Bld) [#/Vol] 8.1 10*3/uL Normal 3.5-11.3 [facility] Comment on above: Performed By: #### C DP, CP, LIPRF #### [address] [address] Research Professor Of Biostatistics: Severino Jacobson MD Comp Metabolic Profon 2023 Albumin [Mass/Vol] 4.8 g/dL Normal 3.5-5.2 [facility] Comment on above: Performed By: #### C DP, CP, LIPRF #### [address] [address] Research Professor Of Biostatistics: Severino Jacobson MD Albumin/Glob Ratio 2.0 Normal 1.0-2.5 [facility] Comment on above: Performed By: #### C DP, CP, LIPRF #### [address] [address] Research Professor Of Biostatistics: Severino Jacobson MD Alkaline Phos 43 U/L Normal 35-104 [facility] Comment on above: Performed By: #### C DP, CP, LIPRF #### [address] [address] Research Professor Of Biostatistics: Severino Jacobson MD ALT [Catalytic activity/Vol] 14 U/L Normal 10-35 [facility] Comment on above: Performed By: #### C DP, CP, LIPRF #### [address] [address] Research Professor Of Biostatistics: Severino Jacobson MD Anion gap [Moles/Vol] 10 mmol/L Normal 9-16 [facility] Comment on above: Performed By: #### C DP, CP, LIPRF #### [address] [address] Research Professor Of Biostatistics: Severino Jacobson MD AST [Catalytic activity/Vol] 27 U/L Normal 10-35 [facility] Comment on above: Performed By: #### C DP, CP, LIPRF #### [address] [address] Research Professor Of Biostatistics: Severino Jacobson MD Bilirubin [Mass/Vol] 0.6 mg/dL Normal 0.00-1.20 [facility] Comment on above: Performed By: #### C DP CP, LIPRF #### [address] [address] Research Professor Of Biostatistics: Severino Jacobson MD Calcium [Mass/Vol] 9.5 mg/dL Normal 8.6-10.4 [facility] Comment on above: Performed By: #### C DP, CP, LIPRF #### [address] [address] Research Professor Of Biostatistics: Severino Jacobson MD Chloride [Moles/Vol] 103 mmol/L Normal 98-107 [facility] Comment on above: Performed By: #### C DP, CP, LIPRF #### [address] [address] Research Professor Of Biostatistics: Severino Jacobson MD CO2 [Moles/Vol] 26 mmol/L Normal 20-31 [facility] Comment on above: Performed By: #### C DP, CP, LIPRF #### [address] [address] Research Professor Of Biostatistics: Severino Jacobson MD Creatinine [Mass/Vol] 0.8 mg/dL Normal 0.50-0.90 [facility] Comment on above: Performed By: #### C DP, CP, LIPRF #### [address] [address] Research Professor Of Biostatistics: Severino Jacobson MD GFR/1.73 sq M.predicted among non-blacks MDRD (S/P/Bld) [Vol rate/Area] mL/min/{1.73_m2} Normal >60 [facility] Comment on above: Result Comment: These results [...] renal tubular secretion. Performed By: #### C DP, CP, LIPRF #### [facility] [employer] [address] [place] [address] Research Professor Of Biostatistics: Severino Jacobson MD Glucose [Mass/Vol] 90 mg/dL Normal 74-99 [facility] Comment on above: Performed By: #### C DP, CP, LIPRF #### [facility] [employer] [address] [place] [address] Research Professor Of Biostatistics: Severino Jacobson MD Potassium [Moles/Vol] 3.9 mmol/L Normal 3.7-5.3 [facility] Comment on above: Performed By: #### C DP, CP, LIPRF #### [address] [address] Research Professor Of Biostatistics: Severino Jacobson MD Protein [Mass/Vol] 7.7 g/dL Normal 6.6-8.7 [facility] Comment on above: Performed By: #### C DP, CP, LIPRF #### [address] [address] Research Professor Of Biostatistics: Severino Jacobson MD Sodium [Moles/Vol] 139 mmol/L Normal 136-145 [facility] Comment on above: Performed By: #### C DP, CP, LIPRF #### [address] [address] Research Professor Of Biostatistics: Severino Jacobson MD Urea nitrogen [Mass/Vol] 12 mg/dL Normal 6-20 [facility] Comment on above: Performed By: #### C DP, CP, LIPRF #### [facility] [employer] [address] [place] [address] Research Professor Of Biostatistics: Severino Jacobson MD Lipid Prof, Fastingon 2023 Cholesterol [Mass/Vol] 178 mg/dL Normal 0-199 [facility] Comment on above: Result Comment: Cholesterol Guidelines: <200 Desirable 200-240 Borderline >240 Undesirable Performed By: #### C DP, CP, LIPRF #### [facility] [employer] [address] [place] [address] Research Professor Of Biostatistics: Severino Jacobson MD Cholesterol in HDL [Mass/Vol] 50 mg/dL Normal >40 [facility] Comment on above: Result Comment: HDL Guidelines: <40 Undesirable 40-59 Borderline >59 Desirable Performed By: #### C DP, CP, LIPRF #### [facility] [employer] [address] [place] [address] Research Professor Of Biostatistics: Severino Jacobson MD Cholesterol in LDL [Mass/Vol] 115 mg/dL High 0-100 [facility] Comment on above: Result Comment: LDL Guidelines: <100 Desirable 100-129 Near to/above Desirable 130-159 Borderline >159 Undesirable Direct (measured) LDL and calculated LDL are not interchangeable tests. Performed By: #### C DP, CP, LIPRF #### [facility] [employer] [address] [place] [address] Research Professor Of Biostatistics: Severino Jacobson MD Cholesterol in VLDL [Mass/Vol] 13 mg/dL Normal [facility] Comment on above: Performed By: #### C DP, CP, LIPRF #### [facility] [address] [place] [address] Research Professor Of Biostatistics: Severino Jacobson MD Cholesterol.total/Chol esterol in HDL [Mass ratio] 4.0 {ratio} Normal [facility] Comment on above: Performed By: #### C DP, CP, LIPRF #### [facility] [employer] [address] [place] [address] Research Professor Of Biostatistics: Severino Jacobson MD Triglyceride,Fasting 64 mg/dL Normal 0-149 [facility] Comment on above: Result Comment: Triglyceride Guidelines: <150 Desirable 150-199 Borderline 200-499 High >499 Very high Based on AHA Guidelines for fasting triglyceride, February 2012. Performed By: #### C DP, CP, LIPRF #### [address] [address] Research Professor Of Biostatistics: Severino Jacobson MD CBC with Diffon 09-02-2023 Abs. Basophil <0.03 Normal 0.00-0.20 [facility] Comment on above: Performed By: #### C DP LIPRF, CP #### [address] [address] Research Professor Of Biostatistics: Severino Jacobson MD Abs.Imm.Granulocyte <0.03 Normal 0.00-0.30 [facility] Comment on above: Performed By: #### C FANNIE MIJARES, CP #### [place] [address] Research Professor Of Biostatistics: Severino Jacobson MD Abs.Neutrophil (Seg) 3.88 k/uL Normal 1.50-8.10 [facility] Comment on above: Performed By: #### C DP LIPRF, CP #### [place] [address] Research Professor Of Biostatistics: Severino Jacobson MD Basophils/100 WBC (Bld) 0 % Normal 0-2 [facility] Comment on above: Performed By: #### C DP LIPRF, CP #### [place] [address] Research Professor Of Biostatistics: Severino Jacobson MD Eosinophils (Bld) [#/Vol] 0.18 10*3/uL Normal 0.00-0.44 [facility] Comment on above: Performed By: #### C DP LIPRF, CP #### [place] [address] Research Professor Of Biostatistics: Severino Jacobson MD Eosinophils/100 WBC (Bld) 3 % Normal 1-4 [facility] Comment on above: Performed By: #### C DP, LIPRF, CP #### [facility] [employer] [address] [place] [address] Research Professor Of Biostatistics: Severino Jacobson MD Erythrocyte distribution width (RBC) [Ratio] 12.6 % Normal 11.8-14.4 [facility] Comment on above: Performed By: #### C DP, LIPRF, CP #### [address] [address] Research Professor Of Biostatistics: Severino Jacobson MD Hematocrit (Bld) [Volume fraction] 34.6 % Low 36.3-47.1 [facility] Comment on above: Performed By: #### C DP, LIPRF, CP #### [address] [address] Research Professor Of Biostatistics: Severino Jacobson MD Hemoglobin (Bld) [Mass/Vol] 10.8 g/dL Low 11.9-15.1 [facility] Comment on above: Performed By: #### C DP, LIPRF, CP #### [address] [address] Research Professor Of Biostatistics: Severino Jacobson MD Immature granulocytes/100 WBC (Bld) 0 % Normal 0 [facility] Comment on above: Performed By: #### C DP, LIPRF, CP #### [address] [address] Research Professor Of Biostatistics: Severino Jacobson MD Lymphocytes (Bld) [#/Vol] 2.64 10*3/uL Normal 1.10-3.70 [facility] Comment on above: Performed By: #### C DP, LIPRF, CP #### [address] [address] Research Professor Of Biostatistics: Severino Jacobson MD Lymphocytes/100 WBC (Bld) 37 % Normal 24-43 [facility] Comment on above: Performed By: #### C DP, LIPRF, CP #### [address] [address] Research Professor Of Biostatistics: Severino Jacobson MD MCH (RBC) [Entitic mass] 29.7 pg Normal 25.2-33.5 [facility] Comment on above: Performed By: #### C FANNIE MIJARES, CP #### [address] [address] Research Professor Of Biostatistics: Severino Jacobson MD MCHC (RBC) [Mass/Vol] 31.2 g/dL Normal 28.4-34.8 [facility] Comment on above: Performed By: #### C FANNIE MIJARES, CP #### [address] [address] Research Professor Of Biostatistics: Severino Jacobson MD MCV (RBC) [Entitic vol] 95.1 fL Normal 82.6-102.9 [facility] Comment on above: Performed By: #### C FANNIE MIJARES, CP #### [address] [address] Research Professor Of Biostatistics: Severino Jacobson MD Monocytes (Bld) [#/Vol] 0.41 10*3/uL Normal 0.10-1.20 [facility] Comment on above: Performed By: #### C FANNIE MIJARES, CP #### [address] [address] Research Professor Of Biostatistics: Severino Jacobson MD Monocytes/100 WBC (Bld) 6 % Normal 3-12 [facility] Comment on above: Performed By: #### C FANNIE MIJARES, CP #### [address] [address] Research Professor Of Biostatistics: Severino Jacobson MD Neutrophil (Seg) 54 % Normal 36-65 [facility] Comment on above: Performed By: #### C FANNIE MIJARES, CP #### [address] [address] Research Professor Of Biostatistics: Severino Jacobson MD NRBC Automated 0.0 per 100 WBC Normal 0.0 [facility] Comment on above: Performed By: #### C FANNIE MIJARES, CP #### [facility] [employer] [address] [place] [address] Research Professor Of Biostatistics: Severino Jacobson MD Platelet mean volume (Bld) [Entitic vol] 10.7 fL Normal 8.1-13.5 [facility] Comment on above: Performed By: #### C DP LIPRF, CP #### [facility] [employer] [address] [place] [address] Research Professor Of Biostatistics: Severino Jacobson MD Platelets (Bld) [#/Vol] 460 10*3/uL High 138-453 [facility] Comment on above: Performed By: #### C DYLLAN LIPRF, CP #### [address] [address] Research Professor Of Biostatistics: Severino Jacobson MD RBC (Bld) [#/Vol] 3.64 10*6/uL Low 3.95-5.11 [facility] Comment on above: Performed By: #### C FANNIE MIJARES, CP #### [address] [address] Research Professor Of Biostatistics: Severino Jacobson MD WBC (Bld) [#/Vol] 7.2 10*3/uL Normal 3.5-11.3 [facility] Comment on above: Performed By: #### C DP LIPRF, CP #### [facility] [employer] [address] [place] [address] Research Professor Of Biostatistics: Severino Jacobson MD Comp Metabolic Profon 2023 Albumin [Mass/Vol] 4.4 g/dL Normal 3.5-5.2 [facility] Comment on above: Performed By: #### C DP LIPRF, CP #### [address] [address] Research Professor Of Biostatistics: Severino Jacobson MD Albumin/Glob Ratio 2.0 Normal 1.0-2.5 [facility] Comment on above: Performed By: #### C FANNIE MIJARES, CP #### [address] [address] Research Professor Of Biostatistics: Severino Jacobson MD Alkaline Phos 35 U/L Normal 35-104 [facility] Comment on above: Performed By: #### C FANNIE MIJARES, CP #### [address] [address] Research Professor Of Biostatistics: Severino Jacobson MD ALT [Catalytic activity/Vol] 12 U/L Normal 10-35 [facility] Comment on above: Performed By: #### C FANNIE MIJARES, CP #### [address] [address] Research Professor Of Biostatistics: Severino Jacobson MD Anion gap [Moles/Vol] 9 mmol/L Normal 9-16 [facility] Comment on above: Performed By: #### C FANNIE MIJARES, CP #### [address] [address] Research Professor Of Biostatistics: Severino Jacobson MD AST [Catalytic activity/Vol] 25 U/L Normal 10-35 [facility] Comment on above: Performed By: #### C FANNIE MIJARES, CP #### [address] [address] Research Professor Of Biostatistics: Severino Jacobson MD Bilirubin [Mass/Vol] 0.6 mg/dL Normal 0.00-1.20 [facility] Comment on above: Performed By: #### C FANNIE MIJARES, CP #### [address] [address] Research Professor Of Biostatistics: Severino Jacobson MD Calcium [Mass/Vol] 8.9 mg/dL Normal 8.6-10.4 [facility] Comment on above: Performed By: #### C FANNIE MIJARES, CP #### [facility] [address] [place] [address] Research Professor Of Biostatistics: Severino Jacobson MD Chloride [Moles/Vol] 107 mmol/L Normal 98-107 [facility] Comment on above: Performed By: #### C FANNIE MIJARES, CP #### [facility] [address] [place] [address] Research Professor Of Biostatistics: Severino Jacobson MD CO2 [Moles/Vol] 24 mmol/L Normal 20-31 [facility] Comment on above: Performed By: #### C FANNIE MIJARES, CP #### [facility] [address] [place] [address] Research Professor Of Biostatistics: Severino Jacobson MD Creatinine [Mass/Vol] 0.7 mg/dL Normal 0.50-0.90 [facility] Comment on above: Performed By: #### C FANNIE MIJARES, CP #### [address] [address] Research Professor Of Biostatistics: Severino Jacobsno MD GFR/1.73 sq M.predicted among non-blacks MDRD (S/P/Bld) [Vol rate/Area] mL/min/{1.73_m2} Normal >60 [facility] Comment on above: Result Comment: These results [...] tubular secretion. Performed By: #### C FANNIE MIJARES, CP #### [address] [address] Research Professor Of Biostatistics: Severino Jacobson MD Glucose [Mass/Vol] 97 mg/dL Normal 74-99 [facility] Comment on above: Performed By: #### C DP, LIPRF, CP #### [address] [address] Research Professor Of Biostatistics: Severino Jacobson MD Potassium [Moles/Vol] 4.0 mmol/L Normal 3.7-5.3 [facility] Comment on above: Performed By: #### C DP, LIPRF, CP #### [facility] [employer] [address] [place] [address] Research Professor Of Biostatistics: Severino Jacobson MD Protein [Mass/Vol] 7.3 g/dL Normal 6.6-8.7 [facility] Comment on above: Performed By: #### C DP, LIPRF, CP #### [address] [address] Research Professor Of Biostatistics: Severino Jacobson MD Sodium [Moles/Vol] 140 mmol/L Normal 136-145 [facility] Comment on above: Performed By: #### C DP, LIPRF, CP #### [address] [address] Research Professor Of Biostatistics: Severino Jacobson MD Urea nitrogen [Mass/Vol] 12 mg/dL Normal 6-20 [facility] Comment on above: Performed By: #### C DP, LIPRF, CP #### [address] [address] Research Professor Of Biostatistics: Severino Jacobson MD Lipid Prof, Fastingon 2023 Cholesterol [Mass/Vol] 164 mg/dL Normal 0-199 [facility] Comment on above: Result Comment: Cholesterol Guidelines: <200 Desirable 200-240 Borderline >240 Undesirable Performed By: #### C DP, LIPRF, CP #### [address] [address] Research Professor Of Biostatistics: Severino Jacobson MD Cholesterol in HDL [Mass/Vol] 52 mg/dL Normal >40 [facility] Comment on above: Result Comment: HDL Guidelines: <40 Undesirable 40-59 Borderline >59 Desirable Performed By: #### C DYLLAN LIPRF, CP #### [address] [address] Research Professor Of Biostatistics: Severino Jacobson MD Cholesterol in LDL [Mass/Vol] 102 mg/dL High 0-100 [facility] Comment on above: Result Comment: LDL Guidelines: <100 Desirable 100-129 Near to/above Desirable 130-159 Borderline >159 Undesirable Direct (measured) LDL and calculated LDL are not interchangeable tests. Performed By: #### C DYLLAN LIPRF, CP #### [place] [address] Research Professor Of Biostatistics: Severino Jacobson MD Cholesterol in VLDL [Mass/Vol] 10 mg/dL Normal [facility] Comment on above: Performed By: #### C EKTA MIJARESRF, CP #### [place] [address] Research Professor Of Biostatistics: Severino Jacobson MD Cholesterol.total/Chol esterol in HDL [Mass ratio] 3.0 {ratio} Normal [facility] Comment on above: Performed By: #### C FANNIE MIJARES, CP #### [address] [address] Research Professor Of Biostatistics: Severino Jacobson MD Triglyceride,Fasting 49 mg/dL Normal 0-149 [facility] Comment on above: Result Comment: Triglyceride Guidelines: <150 Desirable 150-199 Borderline 200-499 High >499 Very high Based on AHA Guidelines for fasting triglyceride, February 2012. Performed By: #### C DYLLAN LIPKOURTNEY, CP #### [address] [address] Research Professor Of Biostatistics: Severino Jacobson MD SARS/FLU A+B/RSV by NAAT/[facility] 07-17-2023 SARS/FLU A+B/RSV by NAAT/Molecular FLU A [...] operators who are performing tests using either [employer] or [employer] systems and is limited to laboratories that [...] specimen repeat. Fact Sheet for Healthcare Providers: https://www.fda.gov/ media/184159/downloa d Fact Sheet for Patients: https://www.fda.gov/ media/536735/downloa d [facility] Comment on above: Performed By: #### C OVFLR #### [facility] ([id number]) [address] [place] [address], [place] [address] QuantiFERON TBon 04-14-2023 Quanti Americo minus NIL >10.00 Normal [facility] Comment on above: Performed By: #### A QF #### [facility] [address] [place] [address] Research Professor Of Biostatistics: Tai Lopez MD Quanti TB Gold Plus Negative Normal Negative [facility] Comment on above: Result Comment: (NOT E) [...] Mycobacterium tuberculosis Infection --- [place], 2010 (http://www.cdc.gov/mmwr/preview/mmwrhtml/kr8832n9.htm), for more information concerning test performance in low-prevalence populations and use in occupational screening. Performed By: #### A QF #### [facility] [address] [place] [address] Research Professor Of Biostatistics: Tai Lopez MD Quanti TB1 minus NIL 0.10 IU/mL Normal 0.00-0.34 [facility] Comment on above: Performed By: #### A QF #### [facility] [address] [place] [address] Research Professor Of Biostatistics: Tai Lopez MD Quanti TB2 minus NIL 0.10 IU/mL Normal 0.00-0.34 [facility] Comment on above: Performed By: #### A QF #### [facility] [address] [place] [address] Research Professor Of Biostatistics: Tai Lopez MD QuantiFERON NIL 0.03 IU/mL Normal [facility] Comment on above: Result Comment: (NOT E) Performed By: [facility] [address] [place] [address] [employer] Operator: Royal Banda MD, PhD CLIA Number: [id number] Performed By: #### A QF #### [facility] [address] [place] [address] Research Professor Of Biostatistics: Tai Lopez MD CBC with Diffon 04-11-2023 Abs. Basophil 0.05 k/uL Normal 0.00-0.20 [facility] Comment on above: Performed By: #### L IPRF, CDP, PHEP, CP, HIVCMB #### [place] [address] Research Professor Of Biostatistics: Severino Jacobson MD Abs.Imm.Granulocyte 0.03 k/uL Normal 0.00-0.30 [facility] Comment on above: Performed By: #### L IPRF, CDP, PHEP, CP, HIVCMB #### [place] [address] Research Professor Of Biostatistics: Severino Jacobson MD Abs.Neutrophil (Seg) 4.20 k/uL Normal 1.50-8.10 [facility] Comment on above: Performed By: #### L IPRF, CDP, PHEP, CP, HIVCMB #### [place] [address] Research Professor Of Biostatistics: Severino Jacobson MD Basophils/100 WBC (Bld) 1 % Normal 0-2 [facility] Comment on above: Performed By: #### L IPRF, CDP, PHEP, CP, HIVCMB #### [address] [place] [address] Research Professor Of Biostatistics: Severino Jacobson MD Eosinophils (Bld) [#/Vol] 0.36 10*3/uL Normal 0.00-0.44 [facility] Comment on above: Performed By: #### L IPRF, CDP, PHEP, CP, HIVCMB #### [address] [address] Research Professor Of Biostatistics: Severino Jacobson MD Eosinophils/100 WBC (Bld) 5 % High 1-4 [facility] Comment on above: Performed By: #### L IPRF, CDP, PHEP, CP, HIVCMB #### [address] [address] Research Professor Of Biostatistics: Severino Jacobson MD Erythrocyte distribution width (RBC) [Ratio] 11.6 % Low 11.8-14.4 [facility] Comment on above: Performed By: #### L IPRF, CDP, PHEP, CP, HIVCMB #### [address] [address] Research Professor Of Biostatistics: Severino Jacobson MD Hematocrit (Bld) [Volume fraction] 34.3 % Low 36.3-47.1 [facility] Comment on above: Performed By: #### L IPRF, CDP, PHEP, CP, HIVCMB #### [address] [address] Research Professor Of Biostatistics: Severino Jacobson MD Hemoglobin (Bld) [Mass/Vol] 10.9 g/dL Low 11.9-15.1 [facility] Comment on above: Performed By: #### L IPRF, CDP, PHEP, CP, HIVCMB #### [address] [address] Research Professor Of Biostatistics: Severino Jacobson MD Immature granulocytes/100 WBC (Bld) 0 % Normal 0 [facility] Comment on above: Performed By: #### L IPRF, CDP, PHEP, CP, HIVCMB #### [address] [address] Research Professor Of Biostatistics: Severino Jacobson MD Lymphocytes (Bld) [#/Vol] 2.55 10*3/uL Normal 1.10-3.70 [facility] Comment on above: Performed By: #### L IPRF, CDP, PHEP, CP, HIVCMB #### [address] [address] Research Professor Of Biostatistics: Severino Jacobson MD Lymphocytes/100 WBC (Bld) 33 % Normal 24-43 [facility] Comment on above: Performed By: #### L IPRF, CDP, PHEP, CP, HIVCMB #### [place] [address] Research Professor Of Biostatistics: Severino Jacobson MD MCH (RBC) [Entitic mass] 30.1 pg Normal 25.2-33.5 [facility] Comment on above: Performed By: #### L IPRF, CDP, PHEP, CP, HIVCMB #### [address] [address] Research Professor Of Biostatistics: Severino Jacobson MD MCHC (RBC) [Mass/Vol] 31.8 g/dL Normal 28.4-34.8 [facility] Comment on above: Performed By: #### L IPRF, CDP, PHEP, CP, HIVCMB #### [address] [address] Research Professor Of Biostatistics: Severino Jacobson MD MCV (RBC) [Entitic vol] 94.8 fL Normal 82.6-102.9 [facility] Comment on above: Performed By: #### L IPRF, CDP, PHEP, CP, HIVCMB #### [address] [address] Research Professor Of Biostatistics: Severino Jacobson MD Monocytes (Bld) [#/Vol] 0.55 10*3/uL Normal 0.10-1.20 [facility] Comment on above: Performed By: #### L IPRF, CDP, PHEP, CP, HIVCMB #### [address] [address] Research Professor Of Biostatistics: Severino Jacobson MD Monocytes/100 WBC (Bld) 7 % Normal 3-12 [facility] Comment on above: Performed By: #### L IPRF, CDP, PHEP, CP, HIVCMB #### [address] [address] Research Professor Of Biostatistics: Severino Jacobson MD Neutrophil (Seg) 54 % Normal 36-65 [facility] Comment on above: Performed By: #### L IPRF, CDP, PHEP, CP, HIVCMB #### [address] [address] Research Professor Of Biostatistics: Severino Jacobson MD NRBC Automated 0.0 per 100 WBC Normal 0.0 [facility] Comment on above: Performed By: #### L IPRF, CDP, PHEP, CP, HIVCMB #### [address] [address] Research Professor Of Biostatistics: Severino Jacobson MD Platelet mean volume (Bld) [Entitic vol] 11.0 fL Normal 8.1-13.5 [facility] Comment on above: Performed By: #### L IPRF, CDP, PHEP, CP, HIVCMB #### [address] [address] Research Professor Of Biostatistics: Severino Jacobson MD Platelets (Bld) [#/Vol] 382 10*3/uL Normal 138-453 [facility] Comment on above: Performed By: #### L IPRF, CDP, PHEP, CP, HIVCMB #### [facility] [employer] [address] [place] [address] Research Professor Of Biostatistics: Severino Jacobson MD RBC (Bld) [#/Vol] 3.62 10*6/uL Low 3.95-5.11 [facility] Comment on above: Performed By: #### L IPRF, CDP, PHEP, CP, HIVCMB #### [address] [address] Research Professor Of Biostatistics: Severino Jacobson MD WBC (Bld) [#/Vol] 7.7 10*3/uL Normal 3.5-11.3 [facility] Comment on above: Performed By: #### L IPRF, CDP, PHEP, CP, HIVCMB #### [address] [address] Research Professor Of Biostatistics: Severino Jacobson MD Comp Metabolic Profon 2022 Albumin [Mass/Vol] 4.4 g/dL Normal 3.5-5.2 [facility] Comment on above: Performed By: #### L IPRF, CDP, PHEP, CP, HIVCMB #### [address] [address] Research Professor Of Biostatistics: Severino Jacobson MD Albumin/Glob Ratio 2.0 Normal 1.0-2.5 [facility] Comment on above: Performed By: #### L IPRF, CDP, PHEP, CP, HIVCMB #### [facility] [employer] [address] [place] [address] Research Professor Of Biostatistics: Severino Jacobson MD Alkaline Phos 39 U/L Normal 35-104 [facility] Comment on above: Performed By: #### L IPRF, CDP, PHEP, CP, HIVCMB #### [facility] [employer] [address] [place] [address] Research Professor Of Biostatistics: Severino Jacobson MD ALT [Catalytic activity/Vol] 10 U/L Normal 10-35 [facility] Comment on above: Performed By: #### L IPRF, CDP, PHEP, CP, HIVCMB #### [address] [address] Research Professor Of Biostatistics: Severino Jacobson MD Anion gap [Moles/Vol] 9 mmol/L Normal 9-16 [facility] Comment on above: Performed By: #### L IPRF, CDP, PHEP, CP, HIVCMB #### [address] [address] Research Professor Of Biostatistics: Severino Jacobson MD AST [Catalytic activity/Vol] 22 U/L Normal [facility] Comment on above: Performed By: #### L IPRF, CDP, PHEP, CP, HIVCMB #### [address] [address] Research Professor Of Biostatistics: Severino Jacobson MD Bilirubin [Mass/Vol] 0.3 mg/dL Normal 0.00-1.20 [facility] Comment on above: Performed By: #### L IPRF, CDP, PHEP, CP, HIVCMB #### [address] [address] Research Professor Of Biostatistics: Severino Jacobson MD Calcium [Mass/Vol] 9.3 mg/dL Normal 8.6-10.4 [facility] Comment on above: Performed By: #### L IPRF, CDP, PHEP, CP, HIVCMB #### [address] [address] Research Professor Of Biostatistics: Severino Jacobson MD Chloride [Moles/Vol] 104 mmol/L Normal 98-107 [facility] Comment on above: Performed By: #### L IPRF, CDP, PHEP, CP, HIVCMB #### [address] [address] Research Professor Of Biostatistics: Severino Jacobson MD CO2 [Moles/Vol] 27 mmol/L Normal 20-31 [facility] Comment on above: Performed By: #### L IPRF, CDP, PHEP, CP, HIVCMB #### [address] [id number] Research Professor Of Biostatistics: Severino Jacobson MD Creatinine [Mass/Vol] 0.7 mg/dL Normal 0.50-0.90 [facility] Comment on above: Performed By: #### L IPRF, CDP, PHEP, CP, HIVCMB #### [address] [id number] Research Professor Of Biostatistics: Severino Jacobson MD GFR/1.73 sq M.predicted among non-blacks MDRD (S/P/Bld) [Vol rate/Area] mL/min/{1.73_m2} Normal >60 [facility] Comment on above: Result Comment: These results [...] L IPRF, CDP, PHEP, CP, HIVCMB #### [address] [id number] Research Professor Of Biostatistics: Severino Jacobson MD Glucose [Mass/Vol] 82 mg/dL Normal 74-99 [facility] Comment on above: Performed By: #### L IPRF, CDP, PHEP, CP, HIVCMB #### [address] [id number] Research Professor Of Biostatistics: Severino Jacobson MD Potassium [Moles/Vol] 3.8 mmol/L Normal 3.7-5.3 [facility] Comment on above: Performed By: #### L IPRF, CDP, PHEP, CP, HIVCMB #### [facility] [employer] [address] [place] [address] Research Professor Of Biostatistics: Severino Jacobson MD Protein [Mass/Vol] 7.2 g/dL Normal 6.6-8.7 [facility] Comment on above: Performed By: #### L IPRF, CDP, PHEP, CP, HIVCMB #### [facility] [address] [place] [address] Research Professor Of Biostatistics: Severino Jacobson MD Sodium [Moles/Vol] 140 mmol/L Normal 136-145 [facility] Comment on above: Performed By: #### L IPRF, CDP, PHEP, CP, HIVCMB #### [facility] [employer] [address] [place] [address] Research Professor Of Biostatistics: Severino Jacobson MD Urea nitrogen [Mass/Vol] 14 mg/dL Normal 6-20 [facility] Comment on above: Performed By: #### L IPRF, CDP, PHEP, CP, HIVCMB #### [address] [address] Research Professor Of Biostatistics: Sveerino Jacobson MD HIV Ag/Abon 04-11-2023 HIV Ag/Ab Non-Reactive Normal NR [facility] Comment on above: Result Comment: No l aboratory evidence of HIV infection. If acute HIV infection is suspected, consider testing for HIV-1 RNA. Performed By: #### C DP, LIPRF, CP #### [facility] [employer] [address] [place] [address] Research Professor Of Biostatistics: Severino Jacobson MD Hepatitis Acute [facility] 04-11 Hep A Ab,IgM Non-Reactive Normal NR [facility] Comment on above: Performed By: #### L IPRF, CDP, PHEP, CP, HIVCMB #### [facility] [address] [place] [address] Research Professor Of Biostatistics: Severino Jacobson MD Hep B Core Ab,IgM Non-Reactive Normal NR [facility] Comment on above: Performed By: #### L IPRF, CDP, PHEP, CP, HIVCMB #### [address] [address] Research Professor Of Biostatistics: Severino Jacobson MD Hep B Surf Ag Non-Reactive Normal NR [facility] Comment on above: Performed By: #### L IPRF, CDP, PHEP, CP, HIVCMB #### [address] [address] Research Professor Of Biostatistics: Severino Jacobson MD Hep C Ab Non-Reactive Normal [facility] Comment on above: Result Comment: [...] L IPRF, CDP, PHEP, CP, HIVCMB #### [address] [address] Research Professor Of Biostatistics: Severino Jacobson MD Lipid Prof, Fastingon 2022 Cholesterol [Mass/Vol] 155 mg/dL Normal 0-199 [facility] Comment on above: Result Comment: Cholesterol Guidelines: <200 Desirable 200-240 Borderline >240 Undesirable Performed By: #### C DP, LIPRF, CP #### [address] [address] Research Professor Of Biostatistics: Severino Jacobson MD Cholesterol in HDL [Mass/Vol] 49 mg/dL Normal >40 [facility] Comment on above: Result Comment: HDL Guidelines: <40 Undesirable 40-59 Borderline >59 Desirable Performed By: #### C DP, LIPRF, CP #### [address] [address] Research Professor Of Biostatistics: Severino Jacobson MD Cholesterol in LDL [Mass/Vol] 98 mg/dL Normal 0-100 [facility] Comment on above: Result Comment: LDL Guidelines: <100 Desirable 100-129 Near to/above Desirable 130-159 Borderline >159 Undesirable Direct (measured) LDL and calculated LDL are not interchangeable tests. Performed By: #### C DP LIPRF, CP #### [address] [address] Research Professor Of Biostatistics: Severino Jacobson MD Cholesterol in VLDL [Mass/Vol] 8 mg/dL Normal [facility] Comment on above: Performed By: #### C DYLLAN LIPKOURTNEY, CP #### [facility] [employer] [address] [place] [address] Research Professor Of Biostatistics: Severino Jacobson MD Cholesterol.total/Chol esterol in HDL [Mass ratio] 3.0 {ratio} Normal [facility] Comment on above: Performed By: #### C DYLLAN LIPRF, CP #### [facility] [employer] [address] [place] [address] Research Professor Of Biostatistics: Severino Jacobson MD Triglyceride,Fasting 38 mg/dL Normal 0-149 [facility] Comment on above: Result Comment: Triglyceride Guidelines: <150 Desirable 150-199 Borderline 200-499 High >499 Very high Based on AHA Guidelines for fasting triglyceride, February 2012. Performed By: #### C DYLLAN LIPRF, CP #### [facility] [employer] [address] [place] [id number] Research Professor Of Biostatistics: Severino Jacobson MD SURGICALon 03-10-2023 SURGICAL [place] [facility] [id number] Assoc. Page 1 of 1 [address] [place] [address] PROC: 03/10/2023 [place] RECV: 03/13/[address] RPTD: 03/21/2023 [place] [address] LOC: NV[facility] ACCT: SEX: F [id number] AGE: 32 Y : 1990 PATHOLOGY REPORT ATTN: BERNIE PULIDO PA-C REQ: BERNIE PULIDO PA-C Clinical Information: ALOPECIA FINAL DIAGNOSIS: Skin, right scalp, biopsy: No evidence of an active inflammatory alopecia. Increased follicular michael and catagen/telogen follicles. Please see microscopic description. Specimen: SKIN BIOPSY, SCALP RIGHT Gross Examination: The container is labeled Homero Leija, scalp, right. Received in formalin is an [...] on sections examined. Clinical correlation is recommended. [id number] AILEEN DE LA PAZ M.D., F.C.A.P [facility]/ [facility] Printed on: 03/21/[address] [place] [address] Original print date: 03/21/2023 Normal [facility] US PREG ANATOMY SINGLEon US [...] by: VINICIUS GARCIA Date: 2021-08-06 21:37 Normal [facility] CULTURE URINEon 04-25-2021 CULTURE URINE Isolate 1 Escherichia coli >100,000 cfu/mL of ORGANISM 1 Escherichia coli ANTIBIOTIC M.I.C RX STATUS Ampicillin >=32 R F Ampicillin/Sulbactam >=32 R F Piperacillin/Tazobac moreno <=4 S F Cefazolin <=4 S F Ceftazidime <=1 S F Ceftriaxone <=1 S F Ertapenem <=0.5 S F Imipenem <=0.25 S F Amikacin <=2 S F Gentamicin <=1 S F Tobramycin <=1 S F Ciprofloxacin <=0.25 S F Levofloxacin <=0.12 S F Nitrofurantoin <=16 S F Trimethoprim/Sulfame thoxazole <=20 S F Normal [facility] Comment on above: Performed By: #### U RCX ####[facility] [id number] [place], [place] [address]DrChristi Smith HEP B SURFACE ANTIGEN SCREEN on 04-24-2021 HBsAg Screen Negative Normal Negative [facility] Comment on above: Performed By: #### H BSANS #### [facility] [address] [place] [address] Dr. Purvi Smith HIV 1 AND 2 WITH REFLEXon HIV Screen 4th Generation wRfx Non-Reactive Normal Non Reactive [facility] Comment on above: Performed By: #### H IV12 ####[facility] [id number] [address]Dr. Purvi Smith RPR QUANTon 04-24-2021 Rapid Plasma Reagin, Quant Non-Reactive Normal NonRea<1:[address] [facility] Comment on above: Performed By: #### R PRQ #### [facility] [address] [place] [address] Dr. Purvi Smith RUBELLA AB IGGon 04-24-2021 Rubella Antibodies, IgG 1.35 index Normal Immune >0.[address] [facility] Comment on above: Result Comment: Non- immune <0.90 Equivocal 0.90 - 0.99 Immune >0.99 Performed By: #### R UBIGG #### [facility] [address] [place] [address] Dr. Purvi Smith CBC AUTO DIFFon 04-23-2021 BASO # 0.0 103/ul Normal 0.0-0.1 [facility] Comment on above: Performed By: #### C BC #### [facility] [address] [place] [address] Dr. Purvi Smith Basophils/100 WBC (Bld) 0.3 % Normal 0.2-2.[address] [facility] Comment on above: Performed By: #### C BC #### [facility] [address] [place] [address] Dr. Purvi Smith EO # 0.2 103/ul Normal 0.0-0.[address] [facility] Comment on above: Performed By: #### C BC #### [facility] [address] [place] [address] Dr. Purvi Smith Eosinophils/100 WBC (Bld) 2.1 % Normal 0.9-7.[address] [facility] Comment on above: Performed By: #### C BC #### [facility] [address] [place] [address] Dr. Purvi Smith Erythrocyte distribution width (RBC) [Ratio] 12.1 % Normal 11.0-15.0 [facility] Comment on above: Performed By: #### C BC #### [facility] [address] [place] [address] Dr. Purvi Smith Hematocrit (Bld) [Volume fraction] 32.3 % Critically low 36.0-48.0 [facility] Comment on above: Performed By: #### C BC #### [facility] [address] [place] [address] Dr. Purvi Smith Hemoglobin (Bld) [Mass/Vol] 10.6 g/dL Critically low 12.0-16.0 [facility] Comment on above: Performed By: #### C BC #### [facility] [address] [place] [address] Dr. Purvi Smith IG # 0.04 10e3/ul Critically high 0.00-0.03 [facility] Comment on above: Performed By: #### C BC #### [facility] [address] [place] [address] Dr. Purvi Smith IG % 0.3 % Normal 0.0-0.5 [facility] Comment on above: Performed By: #### C BC #### [facility] [address] [place] [address] Dr. Purvi Smith LYMPH # 2.1 103/ul Normal 1.2-3.8 [facility] Comment on above: Performed By: #### C BC #### [facility] [address] [place] [address] Dr. Purvi Smith Lymphocytes/100 WBC (Bld) 17.9 % Critically low 20.5-60.0 [facility] Comment on above: Performed By: #### C BC #### [facility] [address] [place] [address] Dr. Purvi Smith MANUAL DIFF REQ NO Normal [facility] Comment on above: Performed By: #### C BC #### [facility] [address] [address] [address] Purvi Smith MCH (RBC) [Entitic mass] 30.2 pg Normal 26.7-34.0 [facility] Comment on above: Performed By: #### C BC #### [facility] [address] [place] [address] Dr. Purvi Smith MCHC (RBC) [Mass/Vol] 32.8 g/dL Normal 29.9-35.2 [facility] Comment on above: Performed By: #### C BC #### [facility] [address] [place] [address] Dr. Purvi Smith MCV (RBC) [Entitic vol] 92.0 fL Normal 81.0-99.0 [facility] Comment on above: Performed By: #### C BC #### [facility] [address] [place] [address] Dr. Purvi Smith MONO # 0.8 103/ul Normal 0.3-0.8 [facility] Comment on above: Performed By: #### C BC #### [facility] [address] [place] [address] Dr. Purvi Smith Monocytes/100 WBC (Bld) 6.6 % Normal 1.7-12.0 [facility] Comment on above: Performed By: #### C BC #### [facility] [address] [place] [address] Dr. Purvi Smith NEUT # 8.5 103/ul Critically high 1.4-6.5 [facility] Comment on above: Performed By: #### C BC #### [facility] [address] [place] [address] Dr. Purvi Smith Neutrophils/100 WBC (Bld) 72.8 % Normal 43.0-75.[address] [facility] Comment on above: Performed By: #### C BC #### [facility] [address] [place] [address] Dr. Purvi Smith Platelet mean volume (Bld) [Entitic vol] 10.0 fL Normal 9.5-13.[address] [facility] Comment on above: Performed By: #### C BC #### [facility] [address] [address] [address] Purvi Smith PLT 361 103/ul Normal 150-450 [facility] Comment on above: Performed By: #### C BC #### [facility] [address] [address] [address] Purvi Smith RBC 3.51 106/ul Critically low 4.20-5.40 [facility] Comment on above: Performed By: #### C BC #### [facility] [address] [address] [address] Purvi Smith WBC 11.7 103/ul Critically high 4.0-11.0 [facility] Comment on above: Performed By: #### C BC #### [facility] [address] [address] [address] Purvi Smith GLYCOHEMOGLOBIN A1Con 2020 ADA RECOMMENDATION ADA THERAPEUTIC TARGET 6.0 - 7.0 ACTION SUGGESTED > 7.0 Normal [facility] Comment on above: Performed By: #### A 1C #### [facility] [address] [address] [address] Purvi Smith Glucose [Mass/Vol] 88 mg/dL Normal [facility] Comment on above: Performed By: #### A 1C #### [facility] [address] [address] [address] Purvi Smith HbA1c (Bld) [Mass fraction] 4.7 % Normal <=6.0 [facility] Comment on above: Performed By: #### A 1C #### [facility] [address] [address] [address] Purvi Smith GASTON BOX TEST PT SEND OUTo n 04-23-2021 SENT TO REF LAB 04/23/2021 Normal [facility] Comment on above: Performed By: #### N BOX #### [facility] [address] [address] [address] Purvi Smith TYPE AND SCREENon 04-23-2021 TYPE AND SCREEN Negative Normal [facility] Comment on above: Performed By: #### T NS #### [facility] [address] [place] [address] Dr. Purvi Smith US PREG TVon 03-30-2021 [...] VINICIUS GARCIA Date: 2021-03-30 10:[address] [facility] CBC AUTO DIFFon 03-16-2021 BASO # 0.0 103/ul Normal 0.0-0.1 [facility] Comment on above: Performed By: #### C BC #### [facility] [address] [place] [address] Dr. Purvi Smith Basophils/100 WBC (Bld) 0.3 % Normal 0.2-2.0 [facility] Comment on above: Performed By: #### C BC #### [facility] [address] [place] [address] Dr. Purvi Smith EO # 0.2 103/ul Normal 0.0-0.[address] [facility] Comment on above: Performed By: #### C BC #### [facility] [address] [place] [address] Dr. Purvi Smith Eosinophils/100 WBC (Bld) 1.9 % Normal 0.9-7.[address] [facility] Comment on above: Performed By: #### C BC #### [facility] [address] [place] [address] Dr. Purvi Smith Erythrocyte distribution width (RBC) [Ratio] 11.9 % Normal 11.0-15.0 [facility] Comment on above: Performed By: #### C BC #### [facility] [address] [address] [address] Purvi Smith Hematocrit (Bld) [Volume fraction] 31.5 % Critically low 36.0-48.0 [facility] Comment on above: Performed By: #### C BC #### [facility] [address] [address] [address] Purvi Smith Hemoglobin (Bld) [Mass/Vol] 10.3 g/dL Critically low 12.0-16.0 [facility] Comment on above: Performed By: #### C BC #### [facility] [address] [place] [address] Dr. Purvi Smith IG # 0.04 10e3/ul Critically high 0.00-0.03 [facility] Comment on above: Performed By: #### C BC #### [facility] [address] [place] [address] Dr. Purvi Smith IG % 0.4 % Normal 0.0-0.5 [facility] Comment on above: Performed By: #### C BC #### [facility] [address] [place] [address] Dr. Purvi Smith LYMPH # 2.3 103/ul Normal 1.2-3.8 [facility] Comment on above: Performed By: #### C BC #### [facility] [address] [place] [address] Dr. Purvi Smith Lymphocytes/100 WBC (Bld) 21.5 % Normal 20.5-60.0 [facility] Comment on above: Performed By: #### C BC #### [facility] [address] [place] [address] Dr. Purvi Smith MANUAL DIFF REQ NO Normal [facility] Comment on above: Performed By: #### C BC #### [facility] [address] [place] [address] Dr. Purvi Smith MCH (RBC) [Entitic mass] 30.2 pg Normal 26.7-34.0 [facility] Comment on above: Performed By: #### C BC #### [facility] [address] [address] [address] Purvi Smith MCHC (RBC) [Mass/Vol] 32.7 g/dL Normal 29.9-35.[address] [facility] Comment on above: Performed By: #### C BC #### [facility] [address] [address] [address] Puriv Smith MCV (RBC) [Entitic vol] 92.4 fL Normal 81.0-99.0 [facility] Comment on above: Performed By: #### C BC #### [facility] [address] [address] [address] Purvi Smith MONO # 0.9 103/ul Critically high 0.3-0.8 [facility] Comment on above: Performed By: #### C BC #### [facility] [address] [address] [address] Purvi Smith Monocytes/100 WBC (Bld) 8.4 % Normal 1.7-12.0 [facility] Comment on above: Performed By: #### C BC #### [facility] [address] [address] [address] Purvi Smith NEUT # 7.3 103/ul Critically high 1.4-6.5 [facility] Comment on above: Performed By: #### C BC #### [facility] [address] [place] [address] Dr. Purvi Smith Neutrophils/100 WBC (Bld) 67.5 % Normal 43.0-75.[address] [facility] Comment on above: Performed By: #### C BC #### [facility] [address] [address] [address] Purvi Smith Platelet mean volume (Bld) [Entitic vol] 10.4 fL Normal 9.5-13.[address] [facility] Comment on above: Performed By: #### C BC #### [facility] [address] [address] [address] Purvi Smith PLT 362 103/ul Normal 150-[address] [facility] Comment on above: Performed By: #### C BC #### [facility] [address] [place] [address] Dr. Purvi Smith RBC 3.41 106/ul Critically low 4.20-5.40 [facility] Comment on above: Performed By: #### C BC #### [facility] [address] [place] [address] Dr. Purvi Smith WBC 10.8 103/ul Normal 4.0-11.0 [facility] Comment on above: Performed By: #### C BC #### [facility] [address] [place] [address] Dr. Purvi Smith PROF CHEM 8 (BAS METB)on Anion gap [Moles/Vol] 10.6 mmol/L Normal [facility] Comment on above: Performed By: #### B MP #### [facility] [address] [place] [address] Dr. Purvi Smith Calcium [Mass/Vol] 9.2 mg/dL Normal 8.4-10.2 [facility] Comment on above: Performed By: #### B MP #### [facility] [address] [place] [address] Dr. Purvi Smith Chloride [Moles/Vol] 103 mmol/L Normal 98-[address] [facility] Comment on above: Performed By: #### B MP #### [facility] [address] [place] [address] Dr. Purvi Smith CO2 [Moles/Vol] 25.5 mmol/L Normal 22.0-30.0 [facility] Comment on above: Performed By: #### B MP #### [facility] [address] [place] [address] Dr. Purvi Smith Creatinine [Mass/Vol] 0.61 mg/dL Normal 0.52-1.04 [facility] Comment on above: Performed By: #### B MP #### [facility] [address] [place] [address] Dr. Purvi Smith EGFR-AF NIUEAN >60 Normal >=60 [facility] Comment on above: Performed By: #### B MP #### [facility] [address] [place] [address] Dr. uPrvi Smith EGFR-NON AF NIUEAN >60 Normal >=60 [facility] Comment on above: Performed By: #### B MP #### [facility] [address] [address] [address] Purvi Smith Glucose [Mass/Vol] 80 mg/dL Normal 74-106 [facility] Comment on above: Performed By: #### B MP #### [facility] [address] [address] [address] Purvi Smith Potassium [Moles/Vol] 3.1 mmol/L Critically low 3.4-5.0 [facility] Comment on above: Performed By: #### B MP #### [facility] [address] [address] [address] Purvi Smith Sodium [Moles/Vol] 136 mmol/L Critically low 137-145 [facility] Comment on above: Performed By: #### B MP #### [facility] [address] [address] [address] Purvi Smith Urea nitrogen [Mass/Vol] 11.0 mg/dL Normal 7.0-17.0 [facility] Comment on above: Performed By: #### B MP #### [facility] [address] [address] [address] Purvi Smith Urea nitrogen/Creatinine [Mass ratio] 18.0 mg/mg Normal [facility] Comment on above: Performed By: #### B MP #### [facility] [address] [address] [address] Purvi Smith Vital Signs Date Time Vital Sign Value Performing Clinician Facility 06-09-2024 11:35-0500 Body mass index (BMI) [Ratio] 28.69 kg/m2 [employer] Work Phone: [facility] 06-09-2024 11:35-0500 Body weight 75.81 kg [employer] Work Phone: [facility] 06-09-2024 11:35-0500 Diastolic blood pressure 74 mm[Hg] [employer] Work Phone: [facility] 06-09-2024 11:35-0500 Systolic blood pressure 114 mm[Hg] Shakir Steph DO Work Phone: [facility] 05-24-2024 13:21-0500 Body mass index (BMI) [Ratio] 28.63 kg/m2 Sophia Rhoades PA Work Phone: [facility] 05-24-2024 13:21-0500 Body weight 75.66 kg Sophia Iraj PA Work Phone: [facility] 05-24-2024 13:21-0500 Diastolic blood pressure 80 mm[Hg] Sophia Iraj PA Work Phone: [facility] 05-24-2024 13:21-0500 Systolic blood pressure 116 mm[Hg] Sophia [place] PA Work Phone: [facility] 05-10-2024 13:14-0500 Body mass index (BMI) [Ratio] 28.32 kg/m2 Shakir Steph DO Work Phone: [facility] 05-10-2024 13:14-0500 Body weight 74.84 kg Shakir Steph DO Work Phone: [facility] 05-10-2024 13:14-0500 Diastolic blood pressure 66 mm[Hg] Shakir Steph DO Work Phone: [facility] 05-10-2024 13:14-0500 Systolic blood pressure 106 mm[Hg] Shakir Steph DO Work Phone: [facility] 05-05-2024 10:30-0500 Body height 162.6 cm Ifrah Díaz MD Work Phone: [facility] 05-05-2024 10:30-0500 Body mass index (BMI) [Ratio] 28.21 kg/m2 Ifrah Díaz MD Work Phone: [facility] 05-05-2024 10:30-0500 Body weight 74.57 kg Ifrah Díaz MD Work Phone: [facility] 05-05-2024 10:30-0500 Diastolic blood pressure 68 mm[Hg] Ifrah Díaz MD Work Phone: [facility] 05-05-2024 10:30-0500 Heart rate 90 /min Ifrah Díaz MD Work Phone: [facility] 05-05-2024 10:30-0500 Systolic blood pressure 120 mm[Hg] Ifrah Díaz MD Work Phone: [facility] 04-12-2024 13:58-0500 Body mass index (BMI) [Ratio] 28.63 kg/m2 Sophia Iraj PA Work Phone: [facility] 04-12-2024 13:58-0500 Body weight 75.66 kg Sopiha Iraj PA Work Phone: [facility] 04-12-2024 13:58-0500 Diastolic blood pressure 70 mm[Hg] Sophia [place] PA Work Phone: [facility] 04-12-2024 13:58-0500 Systolic blood pressure 120 mm[Hg] Sophia Iraj PA Work Phone: [facility] 03-15-2024 10:53-0400 Body mass index (BMI) [Ratio] 27.77 kg/m2 Shakir Steph DO Work Phone: [facility] 03-15-2024 10:53-0400 Body weight 73.39 kg Shakir Steph DO Work Phone: [facility] 03-15-2024 10:53-0400 Diastolic blood pressure 72 mm[Hg] Shakir Steph DO Work Phone: [facility] 03-15-2024 10:53-0400 Systolic blood pressure 110 mm[Hg] Shakir Steph DO Work Phone: [facility] 02-06-2024 15:11-0400 Diastolic blood pressure 63 mm[Hg] Stv 11 [facility] 02-06-2024 15:11-0400 Heart rate 89 /min Stv 11 [facility] 02-06-2024 15:11-0400 Systolic blood pressure 97 mm[Hg] Stv 11 [facility] 02-06-2024 14:22-0400 Respiratory rate 16 /min Stv 11 [facility] 01-29-2024 11:52-0400 Body mass index (BMI) [Ratio] 27.64 kg/m2 Shakir Steph DO Work Phone: [facility] 01-29-2024 11:52-0400 Body weight 73.03 kg Shakir Steph DO Work Phone: [facility] 01-29-2024 11:52-0400 Diastolic blood pressure 74 mm[Hg] Shakir Steph DO Work Phone: [facility] 01-29-2024 11:52-0400 Systolic blood pressure 112 mm[Hg] Shakir Steph DO Work Phone: [facility] Healthcare Encounters Encounter Date Encounter Type Care Provider Facility Start: 06-09-2024 End: 06-09-2024 Bamboo flowsheet Shakir Steph DO Work Phone: [facility] Start: 06-09-2024 End: 06-09-2024 Bamboo flowsheet Shakir Steph DO Work Phone: [facility] Start: 06-09-2024 End: 06-09-2024 ambulatory SHAKIR STEPH Not Available Start: 06-09-2024 End: 06-09-2024 Office outpatient visit 15 minutes Shakir Steph DO Work Phone: [facility] Comment on above: 31 weeks gestation o f ; Second trimester ; Right club foot; Premature uterine contractions, antepartum Start: 06-03-2024 End: 06-03-2024 ambulatory SHAKIR R STEPH [facility] Start: 05-24-2024 End: 05-24-2024 Bamboo flowsheet Sophia KYLE Work Phone: [facility] Start: 05-24-2024 End: 05-24-2024 Bamboo flowsheet Sophia KYLE Work Phone: [facility] Start: 05-24-2024 End: 05-24-2024 Office outpatient visit 15 minutes Sophia KYLE Work Phone: [facility] Comment on above: 29 weeks gestation o f ; Third trimester ; SGA (small for gestational age) Start: 05-24-2024 End: 05-24-2024 ambulatory SOPHIA RHOADES Not Available Start: 05-13-2024 End: 05-13-2024 ambulatory JUAN MIGUEL [facility] Start: 05-10-2024 End: 05-10-2024 Bamboo flowsheet Shakir Steph DO Work Phone: [facility] Start: 05-10-2024 End: 05-11-2024 Bamboo flowsheet Shakir Steph DO Work Phone: [facility] Start: 05-10-2024 End: 05-11-2024 External Result Encounter Shakir Steph DO Work Phone: [facility] External Department Unsolicited Start: 05-10-2024 End: 05-10-2024 Office outpatient visit 15 minutes Shakir Steph DO Work Phone: [facility] Comment on above: 27 weeks gestation o f ; Second trimester ; Urinary tract infection without hematuria, site unspecified Start: 05-10-2024 End: 05-10-2024 ambulatory SHAKIR STEPH Not Available Start: 05-05-2024 End: 05-05-2024 Office outpatient new 45 minutes Ifrah Díaz MD Work Phone: Maternal- Medicine at [facility] Comment on above: Club foot of fetus a ffecting antepartum care of mother, other fetus (Primary Dx); Placenta previa in second trimester; Suspected problem with placenta not found; History of delivery, currently ; History of drug overdose; History of placental abruption; Anxiety and depression; 26 weeks gestation of Start: 05-05-2024 End: 05-05-2024 Orders Only Lena Bucio TONSORIAL ARTIST Maternal- Medic ine at [facility] Comment on above: Club foot of fetus a ffecting antepartum care of mother, other fetus (Primary Dx); Placenta previa in second trimester; Suspected problem with placenta not found; History of delivery, currently ; History of drug overdose Start: 04-12-2024 End: 04-12-2024 Bamboo flowsheet Sophia KYLE Work Phone: [facility] Start: 04-12-2024 End: 04-12-2024 Bamboo flowsheet Sophia KYLE Work Phone: [facility] Start: 04-12-2024 End: 04-12-2024 Office outpatient visit 15 minutes Sophia KYLE Work Phone: [facility] Comment on above: Bacterial vaginosis (Primary Dx); 23 weeks gestation of ; Second trimester ; Diabetes mellitus screening Start: 04-12-2024 End: 04-12-2024 ambulatory SOPHIA RHOADES Not Available Start: 04-09-2024 End: 04-09-2024 ambulatory [facility] Start: 04-06-2024 End: 04-06-2024 Clinisync Result Encounter Shakir Steph DO Work Phone: [facility] External Department Unsolicited Start: 04-06-2024 End: 04-06-2024 Clinisync Result Encounter Shakir Steph DO Work Phone: [facility] External Department Unsolicited Start: 03-15-2024 End: 03-15-2024 Bamboo flowsheet Shakir Steph DO Work Phone: [facility] Start: 03-15-2024 End: 03-15-2024 Bamboo flowsheet Shakir Steph DO Work Phone: [facility] Start: 03-15-2024 End: 03-15-2024 Office outpatient visit 15 minutes Shakir Steph DO Work Phone: [facility] Comment on above: Second trimester pre gnancy; 17 weeks gestation of ; UTI symptoms Start: 03-15-2024 End: 03-15-2024 ambulatory SHAKIR STEPH Not Available Start: 02-26-2024 End: 02-26-2024 Emergency department patient visit VINICIUS Fernandes [facility] Start: 02-06-2024 End: 02-06-2024 ambulatory [facility] Start: 02-06-2024 End: 02-06-2024 Subsequent hospital visit by physician Clarita [facility] Med Onc Chair [facility] [place] [facility] Comment on above: Iron deficiency anem ia, unspecified iron deficiency anemia type (Primary Dx) Start: 01-30-2024 End: 01-30-2024 ambulatory [facility] Start: 01-29-2024 End: 01-29-2024 Bamboo flowsheet Shakir Steph DO Work Phone: [facility] Start: 01-29-2024 End: 01-31-2024 Bamboo flowsheet Shakir Steph DO Work Phone: [facility] Start: 01-29-2024 End: 01-31-2024 External Result Encounter Shakir Steph DO Work Phone: [facility] External [facility] Unsolicited Start: 01-29-2024 End: 01-29-2024 ambulatory SHAKIR STEPH Not Available Start: 01-29-2024 End: 01-29-2024 Office outpatient visit 15 minutes Shakir Steph DO Work Phone: [facility] Comment on above: First trimester preg yenny; Nausea; Urinary tract infection without hematuria, site unspecified Start: 01-17-2024 End: 01-17-2024 Clinisync Result Encounter Shakir Steph DO Work Phone: [facility] External Department Unsolicited Start: 01-17-2024 End: 01-17-2024 Clinisync Result Encounter Shakir Steph DO Work Phone: [facility] External Department Unsolicited Start: 01-01-2024 End: 01-01-2024 ambulatory SHAKIR STEPH Not Available Start: 12-20-2023 End: 12-20-2023 Emergency department patient visit VINICIUS Fernandes [facility] Start: 12-05-2023 End: 12-05-2023 ambulatory [facility]ENSON DIAL [facility] Start: 11-24-2023 End: 11-24-2023 Emergency department patient visit [facility] Start: 11-06-2023 End: 11-06-2023 ambulatory [facility] Start: 09-08-2023 End: 09-08-2023 Telephone encounter Amber Smith [facility] Comment on above: appointment due Start: 09-02-2023 End: 09-02-2023 ambulatory [facility] Start: 07-17-2023 End: 07-17-2023 Emergency department patient visit VINICIUS Fernandes [facility] Start: 04-11-2023 End: 04-11-2023 [facility] Start: 03-12-2023 ambulatory [facility] DIAL [facility] Start: 09-10-2021 End: 09-10-2021 Subsequent hospital visit by physician Clarita Infusion Bed 3 [facility] 3[facility] Med Surg Start: 08-21-2021 End: 08-21-2021 Subsequent hospital visit by physician Benson [facility] Start: 08-06-2021 End: 08-07-[address] SHAKIR CHOI Facility:[facility] Start: 04-23-2021 End: 04-24-[address] SHAKIR CHOI Facility:[facility] Start: 04-21-2021 End: 04-22-[address] SHAKIR CHOI Facility:[facility] Start: 03-30-2021 End: 03-31-[address] SHAKIR CHOI Facility:[facility] Start: 03-16-2021 End: 03-16-2021 ambulatory JAZMIN GARBER Facility:[facility] Procedures Date Procedure Procedure Detail Performing Clinician Start: 05-24-2024 Urnls dip stick/tabl et rgnt non-auto w/o micrscp Sophia KYLE Work Phone: Start: 05-10-2024 URINARY TRACT INFECT ION (HTRX) Shakir Steph DO Work Phone: Start: 05-10-2024 Urnls dip stick/tabl et rgnt non-auto w/o micrscp Shakir Steph DO Work Phone: Start: 04-12-2024 Urnls dip stick/tabl et rgnt non-auto w/o micrscp Shakir Steph DO Work Phone: Start: 04-06-2024 TBH UA (CLEAN/CATCH) BAND TEACHER/MICRO IF IND. Shakirsushma Naqvio DO Work Phone: Start: 04-06-2024 TB URINE MICROSCOPIC ONLY Shakir Naqvio DO Work Phone: Start: 03-15-2024 Urnls dip stick/tabl et rgnt non-auto w/o micrscp Shakir Steph DO Work Phone: Start: 01-29-2024 URETHRITIS/DISCHARGE PLUS VAGINITIS (HTRX) Shakir Steph DO Work Phone: Start: 01-29-2024 Urnls dip stick/tabl et rgnt non-auto w/o micrscp Shakir Steph DO Work Phone: Start: 01-17-2024 Antibody screen Shakir eagle DO Work Phone: Start: 01-17-2024 ALL CBC WITH AUTO DIFF Shakir Steph DO Work Phone: Start: 01-17-2024 ALL TYPE AND SCREEN Cor ey Steph DO Work Phone: Start: 01-17-2024 MLR HEMOGLOBIN A1C Core y Steph DO Work Phone: Start: 04-25-2022 Adult depression scr eening assessment Amber Smith TONSORIAL ARTIST Start: 08-21-2021 Microscopic observat ion [Identifier] in Cervix by Cyto stain Stv 3 Plan of Treatment Date Care Activity Detail Author Start: 05-05-2025 Adult BMI Screening Adult BMI Screen [facility] Start: 05-05-2025 Tobacco Screening Tobacco Screening [facility] Start: 05-05-2025 End: 05-05-2025 US MFM with or without consult US MFM with or without consult Imaging Routine 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, other fetus Placenta previa in second trimester Suspected problem with placenta not found History of delivery, currently History of drug overdose Expected: 05/05/2025 (Approximate), Expires: 05/05/2025 [facility] Work Phone: Comment on above: Expected: 05/05/2025 (Approximate), Expires: 05/05/2025 Start: 08-21-2024 Screening for malign ant neoplasm of cervix [facility] Start: 07-17-2024 Adult BMI Screening Adult BMI Screen ing [facility] Start: 07-17-2024 Tobacco Screening Tobacco Screening [facility] Start: 06-23-2024 End: 06-23-2024 Patient encounter procedure 06/23/2024 10:40 AM EST Routine [facility] [address] [place] [id number] Sophia Rhoades PA [address] [place] [address] [facility] Start: 06-12-2024 Respiratory Syncytia l Virus (RSV) or age 60 yrs+ (1 - Risk 1-dose series) Respiratory Syncytial Virus (RSV) or age 60 yrs+ (1 - Risk 1-dose series) [facility] Start: 06-09-2024 End: 06-09-2024 Patient encounter procedure 06/09/2024 11:20 AM EST Routine [facility] [address] [place] [id number] Shakir Choi DO [address] [place] [address] [facility] Start: 06-03-2024 End: 06-03-2024 Patient encounter procedure 06/03/2024 2:15 PM EST Appointment [facility] [address] [place] [id number] [facility] Start: 05-24-2024 End: 05-24-2025 US biophysical profile w non stress test US biophysical profile w non stress test Imaging Routine 29 weeks gestation of Third trimester SGA (small for gestational age) Expected: 05/24/2024 (Approximate), Expires: 05/24/2025 [facility] Comment on above: Expected: 05/24/2024 (Approximate), Expires: 05/24/2025 Start: 05-24-2024 End: 05-24-2025 US for US OB SCAN FOR GROWTH Imaging Routine 29 weeks gestation of Third trimester SGA (small for gestational age) Expected: 05/24/2024 (Approximate), Expires: 05/24/2025 [facility] Work Phone: Comment on above: Expected: 05/24/2024 (Approximate), Expires: 05/24/2025 Start: 05-24-2024 End: 05-24-2024 Patient encounter procedure [facility] Comment on above: Arrived Start: 05-10-2024 End: 05-10-2024 Patient encounter procedure [facility] Comment on above: Arrived Start: 04-13-2024 End: 04-13-2024 Patient encounter procedure 04/13/2024 11:20 AM EST Routine [facility] [address] [id number] Sophia Rhoades PA [address] [place] [address] [facility] Start: 04-12-2024 End: 04-12-2025 CBC panel - Blood by Automated count CBC Lab Routine Diabetes mellitus screening Expected: 04/12/2024 (Approximate), Expires: 04/12/2025 [facility] Work Phone: Comment on above: Expected: 04/12/2024 (Approximate), Expires: 04/12/2025 Start: 04-12-2024 End: 04-12-2025 Measurement of glucose 1 hour after glucose challenge for glucose tolerance test Glucose tolerance, 1 hour Lab Routine Diabetes mellitus screening Expected: 04/12/2024 (Approximate), Expires: 04/12/2025 [facility] Comment on above: Expected: 04/12/2024 (Approximate), Expires: 04/12/2025 Start: 04-01-2024 End: 04-01-2024 Telemedicine consultation with patient 04/01/2024 4:00 PM EST Telemedicine [facility] [address] [place] [address] Jossue Swain MD [address] [place] [address] 3 month f/u [facility] Comment on above: 3 month f/u Start: 03-15-2024 End: 03-15-2024 Patient encounter procedure 03/15/2024 10:00 AM EDT Routine [facility] [address] [phone] Shakir Choi, DO [address], [place] [address] Arrived [facility] Comment on above: Arrived Start: 02-26-2024 End: 02-26-2024 Patient encounter procedure 02/26/2024 9:40 AM EDT Routine [facility] [address] [place] [phone] Sophia Rhoades PA [address] [place], [place] [address] [facility] Start: 01-29-2024 End: 01-29-2024 Patient encounter procedure 01/29/2024 10:40 AM EDT Routine [facility] [address] [place] [phone] Shakir Choi, DO [address], [facility] Start: 01-25-2024 COVID-19 Vaccine ( season) COVID-19 Vaccine ( season) [facility] Start: 01-25-2024 COVID-19 Vaccine ( season) COVID-19 Vaccine ( season) [facility] Start: 01-25-2024 Influenza vaccination [facility] Start: 12-25-2023 Influenza vaccination Flu vaccine (# 1) [facility] Start: 04-25-2023 Depression Screening Depression [facility] Start: 01-24-2023 COVID-19 Vaccine ( season) COVID-19 Vaccine ( season) [facility] Start: 11-11-2022 DTaP,Tdap and Td Vaccines (7 - Td or Tdap) DTaP,Tdap and Td Vaccines (7 - Td or Tdap) [facility] Start: 11-11-2022 DTaP/Tdap/Td vaccine (7 - Td or Tdap) DTaP/Tdap/Td vaccine (7 - Td or Tdap) [facility] Start: 2022 Screening for malign ant neoplasm of cervix [facility] Start: 01-24-2022 Influenza vaccination Flu vacc ine (Season Ended) [facility] Start: 10-01-2021 End: 10-01-2021 Patient encounter procedure 10/01/2021 Routine Obstetrics and Gynecology Kristel De Leon N, DO [address] [place] [address] [facility] Start: 09-04-2021 End: 09-04-2021 Patient encounter procedure 09/04/2021 Routine Obstetrics and Gynecology Anisha Lucas, DO [address] [place] [address] [facility] Start: 01-24-2021 Influenza vaccination Flu vaccine (# 1) [facility] Start: 08-03-2019 Varicella vaccine (2 of 2 - 13+ 2-dose series) Varicella vaccine (2 of 2 - 13+ 2-dose series) [facility] Start: 07-28-2019 Hepatitis B vaccine (3 of 3 - 19+ 3-dose series) Hepatitis B vaccine (3 of 3 - 19+ 3-dose series) [facility] Start: 2013 Screening for malign ant neoplasm of cervix Pap smear [facility] Start: 09-21-2011 DTaP/Tdap/Td vaccine (1 - Tdap) DTaP/Tdap/Td vaccine (1 - Tdap) [facility] Start: 2010 Adult BMI Follow Up Plan Adult BMI Follow Up Plan [facility] Start: 2010 Hepatitis C screening Hepatitis C [facility] Start: 2004 Depression Screen Depression Screen [facility] Start: 1997 COVID-19 Vaccine (1) COVID-19 Vaccin e (1) [facility] Start: 1993 Varicella vaccine (1 of 2 - 2-dose childhood series) Varicella vaccine (1 of 2 - 2-dose childhood series) [facility] Start: 1992 Hepatitis C screening Hepatitis C [facility] Bacteria identified in Urine by Culture Urine culture Microbiology Routine UTI symptoms Ordered: 03/15/2024 [facility] Work Phone: Comment on above: Ordered: 03/15/2024 Bacteria identified in Urine by Culture Urine culture Microbiology Routine 27 weeks gestation of Urinary tract infection without hematuria, site unspecified Ordered: 05/10/2024 [facility] Work Phone: Comment on above: Ordered: 05/10/2024 Bacteria identified in Urine by Culture Urine culture Microbiology Routine Urinary tract infection without hematuria, site unspecified Ordered: 01/29/2024 [facility] [employer] Work Phone: Comment on above: Ordered: 01/29/2024 Hemoglobin A1c/Hemoglobin.total in Blood Hemoglobin A1c Lab Routine 29 weeks gestation of Third trimester SGA (small for gestational age) Ordered: 05/24/2024 [facility] Comment on above: Ordered: 05/24/2024 Immunizations Immunization Date Immunization Notes Care Provider Fa cility 08-06-2019 Influenza, injectabl e, Madin Estefania Canine Kidney, preservative free, quadrivalent [facility] 08-06-2019 influenza virus vaccine, unspecified formulation [facility] 07-06-2019 tuberculin skin test ; purified protein derivative solution, intradermal [facility] 07-06-2019 varicella virus vaccine [facility] 03-01-2019 hepatitis B vaccine, adult dosage [facility] 01-27-2019 hepatitis B vaccine, adult dosage [facility] 11-11-2012 tetanus toxoid, redu lucrecia diphtheria toxoid, and acellular pertussis vaccine, adsorbed [facility] 06-11-2012 influenza, seasonal, injectable [facility] 01-01-2005 measles, mumps and rubella virus vaccine [facility] 01-01-2005 poliovirus vaccine, inactivated [facility] 01-01-2005 TD(adult) unspecifie d formulation [facility] 05-02-1995 diphtheria, tetanus toxoids and acellular pertussis vaccine, unspecified formulation [facility] 03-22-1994 diphtheria, tetanus toxoids and acellular pertussis vaccine, unspecified formulation [facility] 03-22-1994 haemophilus influenz ae type b vaccine, conjugate unspecified formulation [facility] 03-22-1994 measles, mumps and rubella virus vaccine [facility] 03-22-1994 poliovirus vaccine, unspecified formulation [facility] 07-27-1993 diphtheria, tetanus toxoids and acellular pertussis vaccine, unspecified formulation [facility] 07-27-1993 haemophilus influenz ae type b vaccine, conjugate unspecified formulation [facility] 07-27-1993 hepatitis B vaccine, pediatric or pediatric/adolescent dosage [facility] 07-27[facility]1993 poliovirus vaccine, unspecified formulation Amber [facility] 1992 diphtheria, tetanus toxoids and acellular pertussis vaccine, unspecified formulation Amber [facility] 1992 haemophilus influenz ae type b vaccine, conjugate unspecified formulation [facility] 1992 hepatitis B vaccine, pediatric or pediatric/adolescent dosage Amber [facility] 1992 poliovirus vaccine, unspecified formulation Amber [facility] 1992 hepatitis B vaccine, pediatric or pediatric/adolescent dosage [facility] Payers Date Payer Category Payer Medicaid (Managed Care) [employer] [id number] 2003 Medicaid [id number] 2003 Medicaid HMO [employer] [id number] 1992 Unknown [id number] 2.16.840.1.019657.3.579.2. 593 1992 Unknown [id number] 2.16.840.1.840188.3.579.2. 593 1992 Unknown [id number] 2.16.840.1.847484.3.579.2. 593 1992 Unknown [id number] 2.16.840.1.319660.3.579.2. 593 1992 Unknown [id number] 2.16.840.1.726339.3.579.2. 593 1992 Unknown [id number] 2.16.840.1.255792.3.579.2. 93 1992 Unknown [id number] 2.16.840.1.957951.3.579.2. 177 1992 Unknown [id number] 2.16.840.1.394708.3.579.2. 175 1992 Unknown [id number] 2.16.840.1.109146.3.579.2. 175 1992 Unknown [id number] 2.16.840.1.865916.3.579.2. 175 1992 Unknown [id number] 2.16.840.1.271108.3.579.2. 175 1992 Unknown [id number] 2.16.840.1.109641.3.579.2. 175 1992 Unknown [id number] 2.16.840.1.670145.3.579.2. 1286 1992 Unknown [id number] 2.16.840.1.715574.3.579.2. 1286 1992 Unknown [id number] 2.16.840.1.288158.3.579.2. 1286 1992 Unknown [id number] 2.16.840.1.140997.3.579.2. 1285 1992 Unknown [id number] 2.16.840.1.961021.3.579.2. 1285 1992 Unknown [id number] 2.16840.1.526693.3.579.2. 1285 1992 Unknown [id number] 2.16.840.1.961211.3.579.2. 1285 1992 Unknown [id number] 2.16840.1.465568.3.579.2. 1285 1992 Unknown [id number] 2.16840.1.706048.3.579.2. 1285 1992 Unknown [id number] 2.16840.1.171251.3.579.2. 1258 1992 Unknown [id number] 2.16840.1.928056.3.579.2. 1258 1992 Unknown [id number] 2.16840.1.878005.3.579.2. 1258 1992 Unknown [id number] 2.16840.1.810957.3.579.2. 1258 1992 Unknown [id number] 2.16840.1.466979.3.579.2. 1258 1992 Unknown [id number] 2.16840.1.170290.3.579.2. 1258 1992 Unknown [id number] 2.16.840.1.216374.3.579.2. 1259 1959 Self-pay [id number] 1959 Unknown [id number] Unknown [id number] 2.16.840.1.711545.3.579.2. 593 Social History Date Type Detail Facility Start: 06-23-2012 End: 01-01-2024 Tobacco smoking status [facility] Never smoked tobacco [facility] Phone: Start: 06-23-2012 End: 09-01-2021 Tobacco use and exposure Smokeless tobacco non-user [facility] Phone: Start: 08-21-2021 End: 06-09-2024 Alcohol intake Lifetime non-drinker (finding) [facility] Phone: Start: 08-21-2021 History SDOH [facility] Start: 02-16-2021 [employer] Work Phone: Start: 1990 Sex Assigned At [facility] Phone: Start: 09-01-2021 End: 09-04-2021 Tobacco smoking status [facility] Ex-smoker [facility] Start: 09-04-2021 End: 12-05-2023 Alcohol intake Ex-drinker (finding) [facility] Phone: Start: 07-06-2020 End: 01-01-2024 History of Social function [facility] Start: 07-06-2020 End: 01-01-2024 Tobacco use panel [facility] Start: 1990 Sex assigned at Female [facility] History of tobacco use Current smoker [facility] Has the [employer], or [employer] threatened to shut off services in your home in past 12Mo No [facility] How hard is it for y ou to pay for the very basics like food, housing, medical care, and heating Not hard at all [facility] The thought of antoninai ng myself has occurred to me Never [facility] Start: 05-01-2018 Alcohol Comment once a month / couple glasses of wine [facility] Start: 12-29-2014 Sex Female (finding) [facility] Start: 07-17-2023 Alcoholic beverage intake Current drinker of alcohol (finding) [facility] Clinical Notes 09-08-2023 to 06-09-2024 Ct Nunez LPN - 06/09/2024 11:20 AM ANABELLA Geller - 05/24/2024 1:20 PM Jenelle Nunez LPN - 05/10/2024 1:10 PM Yomaira Bucio, [facility] - 05/05/2024 11:00 AM EST Note Date & Type Note Facility 06-09-2024 History of Presen t illness Narrative Reason for Appointment: Patient ID: Homero De Leon is a 33 y.o. female who presents for No chief complaint on file. Patient presents today for Return OB appointment. MEDICATIONS Current Outpatient Medications Medication Instructions MV-Min-Fe Fum-FA-DHA ( 1 PO) Take by mouth promethazine (PHENERGAN) 25 mg, Every 6 hours PRN ALLERGIES No Known Allergies PROBLEMS Active Ambulatory Problems Diagnosis Date Noted 27 weeks gestation of 05/10/2024 Second trimester 05/10/2024 Resolved Ambulatory Problems Diagnosis Date Noted No Resolved Ambulatory Problems Past Medical History: Diagnosis Date Anxiety Asthma ([facility]) Chlamydia Depression ([facility]) History of miscarriage Iron deficiency anemia SAB (spontaneous ) UTI (urinary tract infection) HISTORY PAST MEDICAL HISTORY SOCIAL HISTORY Past Medical History: Diagnosis Date Anxiety Asthma ([facility]) Chlamydia Depression ([facility]) History of miscarriage Iron deficiency anemia SAB (spontaneous ) UTI (urinary tract infection) Social History Tobacco Use Smoking status: Never Smokeless tobacco: Never Substance Use Topics Alcohol use: Never Drug use: Not Currently Types: Marijuana FAMILY HISTORY Family History Problem Relation Name Age of Onset Diabetes Mother Colette Hypertension Mother Colette Heart disease Father Kwan Heart failure Father Kwan Breast cancer Father's Sister Katrina de leon Breast cancer Paternal Grandmother Leonela magaña SURGICAL HISTORY Past Surgical History: Procedure Laterality Date DILATION AND CURETTAGE OF UTERUS REVIEW OF SYSTEMS Review of Systems: Review of Systems Constitutional: Negative. HENT: Negative. Eyes: Negative. Respiratory: Negative. Cardiovascular: Negative. Gastrointestinal: Negative. Genitourinary: Negative. Musculoskeletal: Negative. Skin: Negative. Neurological: Negative. All other systems reviewed and are negative. Hematological: Negative. Endocrine: Negative. Allergic/Immunologic: Negative. OBJECTIVE Objective: Physical Exam Constitutional: Appearance: Normal appearance. She is well-developed. Cardiovascular: Rate and Rhythm: Normal rate and regular rhythm. Pulmonary: Effort: Pulmonary effort is normal. Breath sounds: Normal breath sounds. Abdominal: General: Bowel sounds are normal. There is no distension. Palpations: Abdomen is soft. Tenderness: There is no abdominal tenderness. There is no guarding or rebound. Musculoskeletal: General: No swelling. Normal range of motion. Right lower leg: No edema. Left lower leg: No edema. Neurological: Mental Status: She is alert and oriented to person, place, and time. Skin: General: Skin is warm and dry. Psychiatric: Mood and Affect: Mood normal. Behavior: Behavior normal. Vitals and nursing note reviewed. Exam conducted with a contract accountant present. Vitals: Estimated body mass index is 28.69 kg/m as calculated from the following: Height as of 03/03/23: 5' 4 . Weight as of this encounter: 167 lb 1.9 oz. BP: 114/74 Patient's last menstrual period was 11/01/2023. ASSESSMENT & PLAN ICD-10-CM 1. 31 weeks gestation of Z3A.31 2. Second trimester Z34.92 3. Right club foot Q66.89 4. Premature uterine contractions, antepartum O47.00 Return OB: Patient presents today for a routine obstetrics appointment. Patient is currently 31w4d . Patient states she is doing well but has complaints of being tired due to current . Patient has verbalizes frequent movement. labor precautions was discussed/given and patient was instructed to perform kick counts three times a day. Pt to have NST/BPP starting at 32 weeks. No orders of the defined types were placed in this encounter. Follow Up: Patient is to return to office in 2 week for routine OB appointment. Documented by Ct Nunez LPN on behalf of: Shakir Choi DO documented in this encounter [facility] 05-24-2024 History of Presen t illness Narrative Reason for Appointment: Patient ID: Homero De Leon is a 33 y.o. female who presents for Routine Visit Patient presents today for Return OB appointment. MEDICATIONS Current Outpatient Medications Medication Instructions MV-Min-Fe Fum-FA-DHA ( 1 PO) Take by mouth promethazine (PHENERGAN) 25 mg, Every 6 hours PRN ALLERGIES No Known Allergies PROBLEMS Active Ambulatory Problems Diagnosis Date Noted 27 weeks gestation of 05/10/2024 Second trimester 05/10/2024 Resolved Ambulatory Problems Diagnosis Date Noted No Resolved Ambulatory Problems Past Medical History: Diagnosis Date Anxiety Asthma (CMS/HCC) Chlamydia Depression ([facility]) History of miscarriage Iron deficiency anemia SAB (spontaneous ) UTI (urinary tract infection) HISTORY PAST MEDICAL HISTORY SOCIAL HISTORY Past Medical History: Diagnosis Date Anxiety Asthma (CMS/HCC) Chlamydia Depression ([facility]) History of miscarriage Iron deficiency anemia SAB (spontaneous ) UTI (urinary tract infection) Social History Tobacco Use Smoking status: Never Smokeless tobacco: Never Substance Use Topics Alcohol use: Never Drug use: Not Currently Types: Marijuana FAMILY HISTORY Family History Problem Relation Name Age of Onset Diabetes Mother Colette Hypertension Mother Colette Heart disease Father Kwan Heart failure Father Kwan Breast cancer Father's Sister Katrina de leon Breast cancer Paternal Grandmother Leoneal magaña SURGICAL HISTORY Past Surgical History: Procedure Laterality Date DILATION AND CURETTAGE OF UTERUS REVIEW OF SYSTEMS Review of Systems: Review of Systems Constitutional: Negative. HENT: Negative. Eyes: Negative. Respiratory: Negative. Cardiovascular: Negative. Gastrointestinal: Negative. Genitourinary: Negative. Musculoskeletal: Negative. Skin: Negative. Neurological: Negative. All other systems reviewed and are negative. Hematological: Negative. Endocrine: Negative. Allergic/Immunologic: Negative. OBJECTIVE Objective: Physical Exam Constitutional: Appearance: Normal appearance. She is normal weight. HENT: Head: Normocephalic. Cardiovascular: Rate and Rhythm: Normal rate. Pulses: Normal pulses. Pulmonary: Effort: Pulmonary effort is normal. Breath sounds: Normal breath sounds. Abdominal: Palpations: Abdomen is soft. Musculoskeletal: General: Normal range of motion. Neurological: General: No focal deficit present. Mental Status: She is alert and oriented to person, place, and time. Psychiatric: Mood and Affect: Mood normal. Behavior: Behavior normal. Thought Content: Thought content normal. Judgment: Judgment normal. Vitals and nursing note reviewed. Vitals: Estimated body mass index is 28.63 kg/m as calculated from the following: Height as of 03/03/23: 5' 4 . Weight as of this encounter: 166 lb 12.8 oz. BP: 116/80 Patient's last menstrual period was 11/01/2023. ASSESSMENT & PLAN ICD-10-CM 1. 29 weeks gestation of Z3A.29 POCT urinalysis dipstick manually resulted US OB SCAN FOR GROWTH US biophysical profile w non stress test Hemoglobin A1c 2. Third trimester Z34.93 POCT urinalysis dipstick manually resulted US OB SCAN FOR GROWTH US biophysical profile w non stress test Hemoglobin A1c 3. SGA (small for gestational age) P05.10 US OB SCAN FOR GROWTH US biophysical profile w non stress test Hemoglobin A1c Return OB: Patient presents today for a routine obstetrics appointment. Patient is currently 29w2d . Patient states she is doing well but has complaints of being tired due to current . Patient has verbalizes frequent movement. labor precautions was discussed/given and patient was instructed to perform kick counts three times a day. Patient was seen and admitted to hospital in [place] when she was on jeane stating they had to give her medications to stop contractions. Patient is to start nst and bpp this week Orders Placed This Encounter Procedures US OB SCAN FOR GROWTH US biophysical profile w non stress test Hemoglobin A1c POCT urinalysis dipstick manually resulted Follow Up: Patient is to return to office in 2 week for routine OB appointment. Documented by ANABELLA Gleason on behalf of: ANABELLA Gleason documented in this encounter [facility] 05-10-2024 History of Presen t illness Narrative Reason for Appointment: Patient ID: Homero De Leon is a 33 y.o. female who presents for Routine Visit Patient presents today for Return OB appointment. MEDICATIONS Current Outpatient Medications Medication Instructions fluconazole (DIFLUCAN) 100 mg, Once MV-Min-Fe Fum-FA-DHA ( 1 PO) Take by mouth promethazine (PHENERGAN) 25 mg, Every 6 hours PRN ALLERGIES No Known Allergies PROBLEMS Active Ambulatory Problems Diagnosis Date Noted 27 weeks gestation of 05/10/2024 Second trimester 05/10/2024 Resolved Ambulatory Problems Diagnosis Date Noted No Resolved Ambulatory Problems Past Medical History: Diagnosis Date Anxiety Asthma ([facility]) Chlamydia Depression ([facility]) History of miscarriage Iron deficiency anemia SAB (spontaneous ) UTI (urinary tract infection) HISTORY PAST MEDICAL HISTORY SOCIAL HISTORY Past Medical History: Diagnosis Date Anxiety Asthma (CMS/HCC) Chlamydia Depression ([facility]) History of miscarriage Iron deficiency anemia SAB (spontaneous ) UTI (urinary tract infection) Social History Tobacco Use Smoking status: Never Smokeless tobacco: Never Substance Use Topics Alcohol use: Never Drug use: Not Currently Types: Marijuana FAMILY HISTORY Family History Problem Relation Name Age of Onset Diabetes Mother Colette Hypertension Mother Colette Heart disease Father Kwan Heart failure Father Kwan Breast cancer Father's Sister Katrina de leon Breast cancer Paternal Grandmother Leonela magaña SURGICAL HISTORY Past Surgical History: Procedure Laterality Date DILATION AND CURETTAGE OF UTERUS REVIEW OF SYSTEMS Review of Systems: Review of Systems Constitutional: Negative. HENT: Negative. Eyes: Negative. Respiratory: Negative. Cardiovascular: Negative. Gastrointestinal: Negative. Genitourinary: Negative. Musculoskeletal: Negative. Skin: Negative. Neurological: Negative. All other systems reviewed and are negative. Hematological: Negative. Endocrine: Negative. Allergic/Immunologic: Negative. OBJECTIVE Objective: Physical Exam Constitutional: Appearance: Normal appearance. She is well-developed. Cardiovascular: Rate and Rhythm: Normal rate and regular rhythm. Pulmonary: Effort: Pulmonary effort is normal. Breath sounds: Normal breath sounds. Abdominal: General: Bowel sounds are normal. There is no distension. Palpations: Abdomen is soft. Tenderness: There is no abdominal tenderness. There is no guarding or rebound. Musculoskeletal: General: No swelling. Normal range of motion. Right lower leg: No edema. Left lower leg: No edema. Neurological: Mental Status: She is alert and oriented to person, place, and time. Skin: General: Skin is warm and dry. Psychiatric: Mood and Affect: Mood normal. Behavior: Behavior normal. Vitals and nursing note reviewed. Exam conducted with a contract accountant present. Vitals: Estimated body mass index is 28.32 kg/m as calculated from the following: Height as of 03/03/23: 5' 4 . Weight as of this encounter: 165 lb. BP: 106/66 Patient's last menstrual period was 11/01/2023. ASSESSMENT & PLAN ICD-10-CM 1. 27 weeks gestation of Z3A.27 POCT urinalysis dipstick manually resulted Urine culture 2. Second trimester Z34.92 POCT urinalysis dipstick manually resulted 3. Urinary tract infection without hematuria, site unspecified N39.0 Urine culture Return OB: Patient presents today for a routine obstetrics appointment. Patient is currently 27w2d . Patient states she is doing well but has complaints of being tired due to current . Patient has verbalizes frequent movement. labor precautions was discussed/given and patient was instructed to perform kick counts three times a day. Is doing growth ultrasounds at [facility] on 06/03/ will start here after, NST/BPP at 32 weeks. Rx for macrobid faxed to pharmacy. Orders Placed This Encounter Procedures Urine culture POCT urinalysis dipstick manually resulted Follow Up: Patient is to return to office in 2 week for routine OB appointment. Documented by Ct Nunez LPN on behalf of: Sophia Rhoades PA-C documented in this encounter [facility] 05-05-2024 History of Presen t illness Narrative Headache/epigastric pain/blurry vision/swelling? No Cramping/contractions? No Abnormal vaginal discharge? No Spotting/vaginal bleeding? No Loss or gush of fluid like your water may have broken? No Do you have cats at home? No Do you change the litter box (reason: risk of toxoplasmosis)? No Genetic testing done this here or other office? low risk/ female Have you been seen here at [facility] in a previous ? Yes Recent ER visits or hospitalizations? Yes , spotting Bring blood sugar log or meter with you today? (Please bring them with you for every visit at [facility]) n/a Flu vaccine (Mar-July)? No Any concerns that you would like me to mention to the provider today? No Images from the original note were not included. [facility] Consult Note Reason For Consult: HPI: Homero De Leon is a 33 y.o. @ 26w4d who presented for consultation from Shakir Vogt DO regarding Chief Complaint Patient presents with H/X PTD x2 H/X Placental Abruption Placenta Previa Club Foot Patient Active Problem List Diagnosis Anxiety SSRI overdose Depressive disorder Iron malabsorption Congenital heart disease Vaginal discharge during in second trimester She reports that she is doing well. She reports normal movements and she denies LOF, contractions, vaginal bleeding, headache, blurry vision, RUQ pain and edema. The primary encounter diagnosis was 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, other fetus. Diagnoses of Placenta previa in second trimester, Suspected problem with placenta not found, History of delivery, currently , History of drug overdose, History of placental abruption, Anxiety and depression, and 26 weeks gestation of were also pertinent to this visit. She has had low risk aneuploidy screen for select aneuploidy of chromosomes 21, 13, 18 and sex chromosomes. Review of systems: Review of systems was noncontributory Complications: Problem List Items Addressed This Visit None Visit Diagnoses 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, other fetus - Primary Placenta previa in second trimester Suspected problem with placenta not found History of delivery, currently History of drug overdose History of placental abruption Anxiety and depression 26 weeks gestation of PMH: Past Medical History: Diagnosis Date Anxiety Asthma Chlamydia infection affecting in second trimester 09/11/2021 08/17/21 09/03/21 Negative 09/11/21 Positive [ ] Chlamydia TARAN in 4 weeks (around mid September) with complete STD panel (GC/Chlamydia/trichomonas/HIV/S yphilis) Culture: 10/02/21: Depression with suicidal ideation 05/02/2018 Hereditary disease in family possibly affecting fetus, affecting management of mother, antepartum condition or complication 06/24/2012 Anatomy scan wnl and NIPT low risk Hx of delivery, currently 08/27/2021 Currently taking IM progestrerone Iron deficiency anemia secondary to inadequate dietary iron intake 09/11/2021 in first trimester with history of 11/03/2017 labor in third trimester with delivery 10/02/2021 Cervix 3-4cm/50%/-4, contractions q 6-7 min SAB (spontaneous ) Trichomonal vaginitis during in second trimester 09/11/2021 08/17/21 09/03/21 Negative UTI (urinary tract infection) during , second trimester 02/09/2018 Urine cx (04/23/21): + for e.coli, tx 04/25/21, repeat urine cx 08/17/21 + E.coli Treated with cephalexin 09/11/21 Urine C&S <10,000 ORGANISMS/ML NORMAL URO GENITAL JOHN PAUL PSHIST: Past Surgical History: Procedure Laterality Date DILATION AND CURETTAGE OF UTERUS INDUCED OB Hx: OB History Para Term AB Living 9 5 3 2 2 5 SAB IAB Ectopic Multiple Live Births 1 1 0 0 5 # Outcome Date GA Lbr Alfred/2nd Weight Sex Type Anes PTL Lv 9 Current 8 10/02/21 34w4d 00:29 / 00:07 2.37 kg M Vag-Spont EPI Y NIYAH Complications: Placenta abruption, delivered, current hospitalization 7 04/29/18 32w6d / 00:12 1.9 kg F Vag-Spont None Y NIYAH 6 IAB 02/20/17 5 SAB 2015 4 Term 06/24/14 39w0d 3.232 kg M Vag-Spont None N NIYAH 3 Term 11/10/12 39w0d 2.892 kg M Vag-Spont EPI N NIYAH Complications: Low-lying placenta 2 Term 09/21/10 38w0d 3.175 kg M Vag-Spont EPI N NIYAH 1 PREECLAMPSIA SCREEN ([place] Preventive Services Task Force) Patient is at high risk if 1 or more factors present. Incidence of preeclampsia is >= 8%: Prior preeclampsia NO Multiple gestation NO Chronic hypertension NO Type 1 or 2 diabetes NO Renal disease NO Autoimmune disease NO (Lupus, APLS) Patient is at moderate risk is several risk factors are present: Nulliparity NO Obesity (BMI >= 30) NO Family history of preeclampsia NO (Mother, sister) NO Sociodemographic characteristics NO (AA, low socioeconomic status) Age >= 35 NO Personal history factor NO (Previous SGA, adverse outcome, > 10 years from last ) Allergies: No Known Allergies Meds: Prior to Admission medications Medication Sig Start Date End Date Taking? Authorizing Provider 25/iron fum/folic/dha (-1 ORAL) Take by mouth daily. OVER THE CONTER Yes Not In System Ref Prov busPIRone (BUSPAR) 15 mg tablet Take 1 tablet (15 mg total) by mouth in the morning and 1 tablet (15 mg total) before bedtime. Patient not taking: Reported on 05/05/2024 02/27/23 Vinicius Quinatna MD ondansetron ODT (ZOFRAN ODT) 4 mg disintegrating tablet Dissolve 1 tablet (4 mg total) on tongue every 8 (eight) hours as needed for nausea for up to 10 doses. Patient not taking: Reported on 05/05/2024 07/17/23 Carrol Davis DO promethazine (PHENERGAN) 25 mg tablet Take 1 tablet (25 mg total) by mouth every 6 (six) hours as needed for nausea or vomiting. Patient not taking: Reported on 05/05/2024 12/20/23 ELE No SH: Social History Socioeconomic History Marital status: Spouse name: Not on file Number of children: Not on file Years of education: Not on file Highest education level: Not on file Occupational History Not on file Tobacco Use Smoking status: Former Smokeless tobacco: Never Vaping Use Vaping status: Every Day Last attempt to quit: 11/24/2023 Substances: Nicotine Substance and Sexual Activity Alcohol use: Not Currently Comment: once a month / couple glasses of wine Drug use: Not Currently Types: Marijuana Comment: suicide attempt on taking celexa Sexual activity: Not Currently Partners: Male control/protection: None Other Topics Concern Not on file Social History Narrative Not on file Social Drivers of Health Financial Resource Strain: Low Risk (04/09/2024) Overall Financial Resource Strain (CARDIA) Difficulty of Paying Living Expenses: Not hard at all Food Insecurity: No Food Insecurity (05/05/2024) Hunger Screening Food Insecurity - Worry: Never True Food Insecurity - Inability: Never True Transportation Needs: No Transportation Needs (04/09/2024) PRAPARE - Transportation Lack of Transportation (Medical): No Lack of Transportation (Non-Medical): No Physical Activity: Not on file Stress: Not on file Social Connections: Not on file Interpersonal Safety: Not on file Housing Instability: Low Risk (04/09/2024) Housing Instability Housing Instability: No Physical Exam: Vital Signs Vitals: 05/05/24 1030 BP: 120/68 Pulse: 90 Weight: 74.6 kg (164 lb 6.4 oz) Height: 162.6 cm (5' 4.02 ) Physical Exam: Gen: Not in acute distress, alert and oriented. Eyes: Pupils equal and reactive Chest: Nonlabored breathing Cardiac: Pulse was regular on vital signs assessment Abdomen: Gravid Skin/extremities: Appears intact. No visible lesions MS:no visible edema Neuro: No focal deficits Assessment/Plan 33 y.o. @ 26w4d here for consultation regardin. 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, other fetus Today, a comprehensive anatomy ultrasound was performed. growth was appropriate. Right clubfoot was seen without other abnormalities. Some imaging was suboptimal due to positioning and will need to re-evaluated again at her next ultrasound. Clubfeet occurs in 1 in 1000 pregnancies. Most cases are isolated and idiopathic, but there are more than 250 non-chromosomal syndromes that include clubfeet. Chromosomal abnormalities associated with clubfoot include trisomy 18, and deletions of 18q, 4p, 9q, and 13q. Other etiologies include neuromuscular disorders. As long as there are no other concerns related to chromosomal issues this disorder should not change the course of her and delivery should be per usual obstetric indications. The will need a detailed physical exam at and consultation with a pediatric orthopedic surgeon. The recurrence risk in subsequent children if isolated with no genetic syndrome, is approximately 2%. I reviewed today the possible diagnostic versus screening modalities that are available for diagnosis, and the risks of amniocentesis were reviewed including premature rupture of membranes, labor, loss of up to 1 in 800. The patient declines and cell free DNA aneuploidy screen was low risk. We also discussed pediatric orthopedic follow-up postnatally. [facility] transitional care nurse met with the patient after the visit. Site of delivery should not be changed based on right clubfoot alone. 2. Placenta previa in second trimester 3. Suspected problem with placenta not found No evidence of placenta previa on sonographic assessment today. 4. History of delivery, currently Prior spontaneous The patient was counseled that any history of a prior spontaneous before 37 weeks does come with an inherent risk of recurrence with future pregnancies. Intervention strategies to help reduce this recurrence risk were reviewed with the patient in great detail. Ultrasound today did not reveal shortened cervix. In view of her gestational age serial cervical length is not clinically indicated. Recommend to follow-up with symptoms and to keep well hydrated. Recommendations: 1. . labor precautions reviewed. 2. Encouraged hydration 5. History of drug overdose 6. History of placental abruption 7. Anxiety and depression She is not currently on any medical management. Recommend to monitor for symptoms and to treat if symptomatic. 8. 26 weeks gestation of 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, other fetus [O35.HXX9] Recommendations: Serial growth assessments every 4 weeks after the anatomy scan testing to be initiated at 32 weeks weekly and weekly DVP Delivery recommended at or after 39 weeks, earlier as clinically indicated Follow-up with Pediatric Orthopedic surgery postnatally. Ct transitional care nurse met with the patient today. Plan reviewed with patient. She vocalized understanding all questions answered. The patient is to continue with routine care in your office [facility], the CDC, and other organizations representing maternal and public health professionals recommend that , , and lactating people and those considering receive the COVID-19 vaccination. Vaccination is the best method to reduce maternal and complications of SARS-CoV-2 infection. This document was created with [employer] technology. Though I make every effort to review the dictation as it is transcribed, on occasion the spoken word can be misinterpreted by the technology leading to inappropriate words, phrases, or sentences. This note is addressed to the requesting provider as a consultation for clinical guidance. Specific medical abbreviations are occasionally used and those are generally approved by the [place]?Board of?Obstetrics and?Gynecology?as well as?Kenna s abbreviations. The above plan of care was based solely on the diagnoses for which a consultation was requested. ?More frequent testing may be indicated based on her other medical/obstetrical conditions. The management of other or medical conditions is beyond the scope of requested consultation and will continue to be followed by the primary engine manager or primary care provider. Thank you for allowing me to participate in her care. Please contact me if you have any concerns. Total time spent was 45 minutes: Preparing to see the patient (e.g., review of tests) Obtaining and/or reviewing separately obtained history Performing a medically appropriate examination and/or evaluation Counseling and educating the patient/family/caregiver Ordering medications, tests, or procedures Referring and communicating with other health child care team lead (not separately reported) Documenting clinical information in the electronic or other health record Independently interpreting results (not separately reported) and communicating results to the patient/family/caregiver Care coordination (not separately reported) documented in this encounter [facility] 04-12-2024 History of Presen t illness Narrative Reason for Appointment: Patient ID: Homero De Leon is a 33 y.o. female who presents for Routine Visit Patient presents today for Return OB appointment. MEDICATIONS Current Outpatient Medications Medication Instructions fluconazole (DIFLUCAN) 100 mg, Once metroNIDAZOLE (FLAGYL) 500 mg, 3 times daily MV-Min-Fe Fum-FA-DHA ( 1 PO) Take by mouth promethazine (PHENERGAN) 25 mg, Every 6 hours PRN ALLERGIES No Known Allergies PROBLEMS Active Ambulatory Problems Diagnosis Date Noted No Active Ambulatory Problems Resolved Ambulatory Problems Diagnosis Date Noted No Resolved Ambulatory Problems Past Medical History: Diagnosis Date Anxiety Asthma (CMS/HCC) Chlamydia Depression (CMS/HCC) History of miscarriage Iron deficiency anemia SAB (spontaneous ) UTI (urinary tract infection) HISTORY PAST MEDICAL HISTORY SOCIAL HISTORY Past Medical History: Diagnosis Date Anxiety Asthma (CMS/HCC) Chlamydia Depression (CMS/HCC) History of miscarriage Iron deficiency anemia SAB (spontaneous ) UTI (urinary tract infection) Social History Tobacco Use Smoking status: Never Smokeless tobacco: Never Substance Use Topics Alcohol use: Never Drug use: Not Currently Types: Marijuana FAMILY HISTORY Family History Problem Relation Name Age of Onset Diabetes Mother Colette Hypertension Mother Colette Heart disease Father Kwan Heart failure Father Kwan Breast cancer Father's Sister Katrina de leon Breast cancer Paternal Grandmother Leonela magaña SURGICAL HISTORY Past Surgical History: Procedure Laterality Date DILATION AND CURETTAGE OF UTERUS REVIEW OF SYSTEMS Review of Systems: Review of Systems Constitutional: Negative. HENT: Negative. Eyes: Negative. Respiratory: Negative. Cardiovascular: Negative. Gastrointestinal: Negative. Genitourinary: Negative. Musculoskeletal: Negative. Skin: Negative. Neurological: Negative. All other systems reviewed and are negative. Hematological: Negative. Endocrine: Negative. Allergic/Immunologic: Negative. OBJECTIVE Objective: Physical Exam Constitutional: Appearance: Normal appearance. She is normal weight. HENT: Head: Normocephalic. Cardiovascular: Rate and Rhythm: Normal rate. Pulses: Normal pulses. Pulmonary: Effort: Pulmonary effort is normal. Breath sounds: Normal breath sounds. Abdominal: Palpations: Abdomen is soft. Musculoskeletal: General: Normal range of motion. Neurological: General: No focal deficit present. Mental Status: She is alert and oriented to person, place, and time. Psychiatric: Mood and Affect: Mood normal. Behavior: Behavior normal. Thought Content: Thought content normal. Judgment: Judgment normal. Vitals and nursing note reviewed. Vitals: Estimated body mass index is 28.63 kg/m as calculated from the following: Height as of 03/03/23: 5' 4 . Weight as of this encounter: 166 lb 12.8 oz. BP: 120/70 Patient's last menstrual period was 11/01/2023. ASSESSMENT & PLAN ICD-10-CM 1. 23 weeks gestation of Z3A.23 POCT urinalysis dipstick manually resulted 2. Second trimester Z34.92 POCT urinalysis dipstick manually resulted 3. Diabetes mellitus screening Z13.1 CBC Glucose tolerance, 1 hour CBC Glucose tolerance, 1 hour Patient has visited er twice recently for recurrent BV infection. Previous cultures were reviewed. Patient will stop taking flagyl and start using metrodazole gel. Return OB: Patient presents today for a routine obstetrics appointment. Patient is currently 23w2d . Patient states she is doing well but has complaints of being tired due to current . Patient has verbalizes frequent movement. Orders Placed This Encounter Procedures CBC Glucose tolerance, 1 hour POCT urinalysis dipstick manually resulted Follow Up: Patient is to return to office in 4 week for routine OB appointment. Documented by ANABELLA Gleason on behalf of: ANABELLA Gleason documented in this encounter [facility] 03-15-2024 History of Presen t illness Narrative Reason for Appointment: Patient ID: Homero De Leon is a 33 y.o. female who presents for Routine Visit Patient presents today for Return OB appointment. MEDICATIONS Current Outpatient Medications Medication Instructions hydrocortisone 2.5 % cream APPLY TO AFFECTED AREAS OF FACE, TWICE DAILY X 2 WEEKS, THEN TWICE DAILY NEEDED. potassium chloride CR (Klor-Con) 10 MEQ ER tablet TAKE 2 TABLET BY MOUTH IN THE MORNING AND 2 BEFORE BEDTIME FOR 1 DAYS MV-Min-Fe Fum-FA-DHA ( 1 PO) Oral promethazine (PHENERGAN) 25 mg, Oral, Every 6 hours PRN ALLERGIES No Known Allergies PROBLEMS Active Ambulatory Problems Diagnosis Date Noted No Active Ambulatory Problems Resolved Ambulatory Problems Diagnosis Date Noted No Resolved Ambulatory Problems Past Medical History: Diagnosis Date Anxiety Asthma ([facility]) Chlamydia Depression ([facility]) History of miscarriage Iron deficiency anemia SAB (spontaneous ) UTI (urinary tract infection) HISTORY PAST MEDICAL HISTORY SOCIAL HISTORY Past Medical History: Diagnosis Date Anxiety Asthma ([facility]) Chlamydia Depression ([facility]) History of miscarriage Iron deficiency anemia SAB (spontaneous ) UTI (urinary tract infection) Social History Tobacco Use Smoking status: Never Smokeless tobacco: Never Substance Use Topics Alcohol use: Never Drug use: Not Currently Types: Marijuana FAMILY HISTORY Family History Problem Relation Name Age of Onset Diabetes Mother Colette Hypertension Mother Colette Heart disease Father Kwan Heart failure Father Kwan Breast cancer Father's Sister Katrina de leon Breast cancer Paternal Grandmother Leonela magaña SURGICAL HISTORY Past Surgical History: Procedure Laterality Date DILATION AND CURETTAGE OF UTERUS REVIEW OF SYSTEMS Review of Systems: Review of Systems All other systems reviewed and are negative. OBJECTIVE Objective: Physical Exam Constitutional: Appearance: Normal appearance. She is well-developed. Cardiovascular: Rate and Rhythm: Normal rate and regular rhythm. Pulmonary: Effort: Pulmonary effort is normal. Breath sounds: Normal breath sounds. Abdominal: General: Bowel sounds are normal. There is no distension. Palpations: Abdomen is soft. Tenderness: There is no abdominal tenderness. There is no guarding or rebound. Musculoskeletal: General: No swelling. Normal range of motion. Right lower leg: No edema. Left lower leg: No edema. Neurological: Mental Status: She is alert and oriented to person, place, and time. Skin: General: Skin is warm and dry. Psychiatric: Mood and Affect: Mood normal. Behavior: Behavior normal. Vitals and nursing note reviewed. Exam conducted with a contract accountant present. Vitals: Estimated body mass index is 27.77 kg/m as calculated from the following: Height as of 03/03/23: 5' 4 . Weight as of this encounter: 161 lb 12.8 oz. BP: 110/72 Patient's last menstrual period was 11/01/2023. ASSESSMENT & PLAN ICD-10-CM 1. Second trimester Z34.92 POCT urinalysis dipstick manually resulted 2. 17 weeks gestation of Z3A.17 POCT urinalysis dipstick manually resulted 3. UTI symptoms R39.9 Urine culture Patient presents today for a routine obstetrics appointment. Patient is currently 19w2d with a Estimated Date of Delivery: 08/07/24. Patients urine still shows UTI and will be sent out for culture. Sent Cleocin to patients pharmacy as she has not tried that antibiotic at this time. Patient to return to clinic in 4 weeks for routine OB appointment. Documented by Juan Miguel Christensen LPN on behalf of: Shakir Choi DO documented in this encounter [facility] 02-06-2024 History of Presen t illness Narrative Pt here for Feraheme infusion. Infusion complete without incident. Pt d/c'd in stable condition. Returns 04-01-24 for MD f/u. documented in this encounter [facility] 01-29-2024 History of Presen t illness Narrative Reason for Appointment: Patient ID: Homero De Leon is a 33 y.o. female who presents for Routine Visit Patient presents today for Return OB appointment. MEDICATIONS Current Outpatient Medications Medication Instructions hydrocortisone 2.5 % cream APPLY TO AFFECTED AREAS OF FACE, TWICE DAILY X 2 WEEKS, THEN TWICE DAILY NEEDED. ondansetron ODT (ZOFRAN-ODT) 4 mg, Oral, Every 6 hours PRN potassium chloride CR (Klor-Con) 10 MEQ ER tablet TAKE 2 TABLET BY MOUTH IN THE MORNING AND 2 BEFORE BEDTIME FOR 1 DAYS promethazine (PHENERGAN) 25 mg, Oral, Every 6 hours PRN ALLERGIES No Known Allergies PROBLEMS Active Ambulatory Problems Diagnosis Date Noted No Active Ambulatory Problems Resolved Ambulatory Problems Diagnosis Date Noted No Resolved Ambulatory Problems Past Medical History: Diagnosis Date Anxiety Asthma ([facility]) [place] History of miscarriage Iron deficiency anemia SAB (spontaneous ) UTI (urinary tract infection) HISTORY PAST MEDICAL HISTORY SOCIAL HISTORY Past Medical History: Diagnosis Date Anxiety Asthma ([facility]) Chlamydia Depression ([facility]) History of miscarriage Iron deficiency anemia SAB (spontaneous ) UTI (urinary tract infection) Social History Tobacco Use Smoking status: Never Smokeless tobacco: Never Substance Use Topics Alcohol use: Never Drug use: Not Currently Types: Marijuana FAMILY HISTORY Family History Problem Relation Name Age of Onset Diabetes Mother Colette Hypertension Mother Colette Heart disease Father Kwan Heart failure Father Kwan Breast cancer Father's Sister Katrina de leon Breast cancer Paternal Grandmother Leonela magaña SURGICAL HISTORY Past Surgical History: Procedure Laterality Date DILATION AND CURETTAGE OF UTERUS REVIEW OF SYSTEMS Review of Systems: Review of Systems All other systems reviewed and are negative. OBJECTIVE Objective: Physical Exam Constitutional: Appearance: Normal appearance. She is well-developed. Cardiovascular: Rate and Rhythm: Normal rate and regular rhythm. Pulmonary: Effort: Pulmonary effort is normal. Breath sounds: Normal breath sounds. Abdominal: General: Bowel sounds are normal. There is no distension. Palpations: Abdomen is soft. Tenderness: There is no abdominal tenderness. There is no guarding or rebound. Musculoskeletal: General: No swelling. Normal range of motion. Right lower leg: No edema. Left lower leg: No edema. Neurological: Mental Status: She is alert and oriented to person, place, and time. Skin: General: Skin is warm and dry. Psychiatric: Mood and Affect: Mood normal. Behavior: Behavior normal. Vitals and nursing note reviewed. Exam conducted with a contract accountant present. Vitals: Estimated body mass index is 27.64 kg/m as calculated from the following: Height as of 03/03/23: 5' 4 . Weight as of this encounter: 161 lb. BP: 112/74 Patient's last menstrual period was 11/01/2023. ASSESSMENT & PLAN ICD-10-CM 1. First trimester Z34.91 POCT urinalysis dipstick manually resulted 2. Nausea R11.0 ondansetron ODT (Zofran-ODT) 4 MG disintegrating tablet 3. Urinary tract infection without hematuria, site unspecified N39.0 Urine culture New OB: Patient presents today for 1st time obstetrics appointment with provider. Patient is currently 12w5d . Patients history has been reviewed in great detail including any potential risks. Patient stated she currently has no complaints. Expectations throughout regarding labs, ultrasounds, and appointments have been discussed with the patient in detail. It was reiterated that the patient is to drink 6-8 glasses of water a day, eat 6 small meals a day, do not consume raw or undercooked meat, and stay away from [facility]. Patient has been consulted regarding any further do's and don'ts of . Patient voiced understanding and all questions and concerns were answered. Patients urine sent out for culture as she had positive nitrates. Will send Macrobid to patients pharmacy to help with UTI. Orders Placed This Encounter Procedures Urine culture POCT urinalysis dipstick manually resulted Follow Up: Patient is to return in 4 weeks for routine OB appointment. Documented by Juan Miguel Christensen LPN on behalf of: Shakir Choi DO documented in this encounter [facility] 09-08-2023 Miscellaneous Notes Care Coordination Outreach performed to coordinate overdue appointments, testing, and/or follow-up care: Yes Audit/Outreach Date: September 08, 2023 Reason: Well Person Method: Telephone and MyChart Outreach Attempt: First Outcome: Left Message Next PCP Appointment: N/A Tests/Referrals Pended: N/A Resources/Education Provided: Additional Comments: documented in this encounter [facility] 09-08-2023 Telephone encounter Note Care Coordination Outreach performed to coordinate overdue appointments, testing, and/or follow-up care: Yes Audit/Outreach Date: September 08, 2023 Reason: Well Person Method: Telephone and MyChart Outreach Attempt: First Outcome: Left Message Next PCP Appointment: N/A Tests/Referrals Pended: N/A Resources/Education Provided: Additional Comments: [facility] Evaluation note Diagnosis Second trimester state, incidental 17 weeks gestation of UTI symptoms [facility] Bacterial vaginosis- Primary Unspecified vaginitis and vulvovaginitis 23 weeks gestation of Second trimester state, incidental Diabetes mellitus screening Screening for diabetes mellitus [facility] Diagnosis 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, other fetus- Primary Placenta previa in second trimester Suspected problem with placenta not found Suspected placental problem not found History of delivery, currently with history of pre-term labor History of drug overdose [facility] 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, other fetus- Primary Placenta previa in second trimester Suspected problem with placenta not found Suspected placental problem not found History of delivery, currently with history of pre-term labor History of drug overdose History of placental abruption Anxiety and depression 26 weeks gestation of [facility] Diagnosis 27 weeks gestation of Second trimester state, incidental Urinary tract infection without hematuria, site unspecified [facility] Diagnosis First trimester state, incidental Nausea Nausea alone Urinary tract infection without hematuria, site unspecified [facility] Diagnosis 29 weeks gestation of Third trimester state, incidental SGA (small for gestational age) [id number] without mention of malnutrition, unspecified (weight) [facility] Diagnosis 31 weeks gestation of Second trimester state, incidental Right club foot Premature uterine contractions, antepartum Unspecified abnormality of labor, antepartum [facility]* Diagnosis Iron deficiency anemia, unspecified iron deficiency anemia type- Primary [facility] on filedocumented in this encounter [facility] SystemInstructionsNot on filedocumented in this encounter [facility] SystemInstructionsNot on filedocumented in this encounter [facility]Reason for [facility] Narrative* Treatment Plan and Therapy Plan (Routine) - Authorized Specialty Diagnoses / Procedures Referred By Curtis fernandes Referred To Contact Diagnoses Iron deficiency anemia, unspecified iron deficiency anemia type Procedures WI FERUMOXYTOL, NON-ESRD Jossue Swain MD [address] [place] [address] [facility] [address] [place] [id number] Referral ID Status Reason Start Date Expiration Date V isits Requested Visits Authorized [id number] Authorized 01/14/2024 04/15/2024 10 10 [facility] Summary Purpose Family History No Family History Records FoundNo Family History Records FoundNo Family History Records FoundNo Family History Records FoundNo Family History Records FoundNo Family History Records FoundNo Family History Records Found Advance Directives Documents on File Type Date Recorded Patient Entry Level Account Executive Expl anation ACP-Advance Directive ACP-Power of Hollow Handle Knife Assembler Date Activated Date Inactivated Comments 04/09/2024 7:33 PM 04/09/2024 11:14 PM Date Activated Date Inactivated Comments 10/02/2021 12:27 PM 10/03/2021 3:44 PM Date Activated Date Inactivated Comments 09/01/2021 5:55 AM 09/02/2021 1:38 AM Date Activated Date Inactivated Comments 05/02/2018 3:43 AM 05/06/2018 12:44 PM Date Activated Date Inactivated Comments 04/29/2018 12:37 AM 05/01/2018 5:03 PM Date Activated Date Inactivated Comments 04/09/2024 7:33 PM 04/09/2024 11:14 PM Date Activated Date Inactivated Comments 10/02/2021 12:27 PM 10/03/2021 3:44 PM Date Activated Date Inactivated Comments 09/01/2021 5:55 AM 09/02/2021 1:38 AM Date Activated Date Inactivated Comments 05/02/2018 3:43 AM 05/06/2018 12:44 PM Date Activated Date Inactivated Comments 04/29/2018 12:37 AM 05/01/2018 5:03 PM Date Activated Date Inactivated Comments 10/02/2021 12:27 PM 10/03/2021 3:44 PM Date Activated Date Inactivated Comments 09/01/2021 5:55 AM 09/02/2021 1:38 AM Date Activated Date Inactivated Comments 05/02/2018 3:43 AM 05/06/2018 12:44 PM Date Activated Date Inactivated Comments 04/29/2018 12:37 AM 05/01/2018 5:03 PM Date Activated Date Inactivated Comments 04/28/2018 2:36 PM 04/29/2018 12:37 AM Additional Source Comments INFORMATION SOURCE (unrecogn ized section and content) DATE CREATED AUTHOR 08/08/2021 [facility] DATE CREATED AUTHOR AUTHOR'S ORGANIZ ATION 03/23/2023 [facility] DATE CREATED AUTHOR AUTHOR'S ORGANIZ ATION 12/11/[address] [facility] DATE CREATED AUTHOR AUTHOR'S ORGANIZ ATION 02/08/2024 [facility] DATE CREATED AUTHOR AUTHOR'S ORGANIZ ATION 05/16/2024 [facility] DATE CREATED AUTHOR AUTHOR'S ORGANIZ ATION 06/08/2024 [facility] DATE CREATED AUTHOR AUTHOR'S ORGANIZ ATION 06/12/2024 [facility] EPIC Care Teams (unrecognized sec tion and content) Perch Mender Relationship Specialty Start Date End Date Benson Dial MD PCP - General 10/08/12 Perch Mender Relationship Specialty Start Date End Date Benson Dial MD PCP - General 10/08/12 Perch Mender Relationship Specialty Start Date End Date Vinicius Quintana MD [address] [place] [address] PCP - General Family Medicine 03/03/23 Perch Mender Relationship Specialty Start Date End Date Vinicius Quintana MD [address] [place] [address] PCP - General Family Medicine 03/03/23 Perch Mender Relationship Specialty Start Date End Date Vinicius Quintana MD [address] [place] [address] PCP - General Family Medicine 03/03/23 Perch Mender Relationship Specialty Start Date End Date Vinicius Quintana MD [address] [place] [address] PCP - General Family Medicine 03/03/23 Perch Mender Relationship Specialty Start Date End Date Vinicius Quintana MD [address] [place] [address] PCP - General Family Medicine 03/03/23 Perch Mender Relationship Specialty Start Date End Date Vinicius Quintana MD [address] [place] [address] PCP - General Family Medicine 03/01/17 Perch Mender Relationship Specialty Start Date End Date Vinicius Quintana MD [address] [place] [address] PCP - General Family Medicine 03/01/17 Perch Mender Relationship Specialty Start Date End Date Vinicius Quintana MD [address] [place] [address] PCP - General Family Medicine 03/03/23 Perch Mender Relationship Specialty Start Date End Date Vinicius Quintana MD [address] [place] [address] PCP - General Family Medicine 03/03/23 Perch Mender Relationship Specialty Start Date End Date Vinicius Quintana MD [address] [place] [address] PCP - General Family Medicine 03/03/23 Perch Mender Relationship Specialty Start Date End Date Vinicius Quintana MD [address] [place] [address] PCP - General Family Medicine 03/03/23 Perch Mender Relationship Specialty Start Date End Date Vinicius Quintana MD [address] [place] [address] PCP - General Family Medicine 03/03/23 Perch Mender Relationship Specialty Start Date End Date Vinicius Quintana MD [address] [place] [address] PCP - General Family Medicine 03/03/23 Perch Mender Relationship Specialty Start Date End Date Benson Dial MD PCP - General 10/08/12 Perch Mender Relationship Specialty Start Date End Date Vinicius Quintana MD [address] [place] [address] PCP - General Family Medicine 03/01/17 Reason for Visit (unrecogniz ed section and content) Reason Comments Routine Visit Reason Comments H/X PTD x2 H/X Placental Abruption Placenta Previa Club Foot Reason Onset Date Comments appointment due 09/08/2023 FOR RECORDS PERTAINING TO PATIENTS WHO ARE [...] BE BASED ON THE PRIMARY CLINICAL RECORDS. [facility] [employer] [facility]. provides no warranty or guarantee of the accuracy or completeness of information in this document.
[2024-06-23 12:29] VITALS: BP 116/58; PULSE 71
--- NOTE | 2024-06-23 13:47 | US_ITS ---
[address] [address] Patient Name: HOMERO RAMIREZ MRN: [id number] date: 1990 Sex: F Assigned Patient Location: [facility] Current Patient Location: [facility] Accession/Order Number: [id number] Exam Date: 06/23/2024 14:01 Report Date: 06/23/2024 14:27 At the request of: JINA HILL Procedure: US OB BPP w non-stress EXAMINATION: US OB BPP w non-stress HISTORY: contractions COMPARISON: Ultrasound OB anatomy 04/06/2024 TECHNIQUE: Ultrasound biophysical profile was performed in the radiology department. BREATHING MOVEMENTS: 2 GROSS BODY MOVEMENTS: 2 TONE: 2 QUALITATIVE AMNIOTIC FLUID VOLUME: 2 PRESENTATION: CEPHALIC HEART RATE: 122.99 bpm AMNIOTIC FLUID VOLUME: 9.38 cm GESTATIONAL AGE: 33 weeks 4 days US/US OB BPP w non-stress IMPRESSION: 1. Total biophysical profile score: 8 2. Amniotic fluid volume is approaching the lower limits of normal. Electronically authenticated by: SALLIE MCKEON Date: 06/23/2024 14:27
[2024-06-23] MEDS: 0.9 % SODIUM CHLORIDE 1,000 ML 1000 ML IV (14:19)
[2024-06-23] MEDS: CEFTRIAXONE 1,000 MG in 0.9 % SODIUM CHLORIDE 50 ML 100 MG IV (14:20)
== END 2024-06-23 16:20 | disposition home or self-care (01) ==
PROVIDERS: Admitting Provider Obstetrics & Gynecology; PCP Family Medicine; Visit Provider Obstetrics & Gynecology
DX: O47.03 False labor before 37 completed weeks of gestation, third trimester (principal); Z3A.33 33 weeks gestation of pregnancy
CPT/HCPCS: 59025; 76818; 96374; G0378; G0379; J0696

== ENCOUNTER 2024-07-08 20:19 | Outpatient (REF) | payer OTHER, SELFPAY ==
--- OUTSIDE RECORDS SUMMARY | 2024-07-08 20:23 | XMS_ITS | CCD ---
Author Organization [facility] Care Team Providers Care Lean Manager Name Role Phone STEPH, DR MURO Admitting [...] Primary Care Unavailable BERNIE PULIDO Referring Unavailable OBAYUWANA, ALPHONSUS Primary Care Unavailable AL-ADAMAOUR, MOHAMMAD A Referring Unavailable OBAYUWANA, ALPHONSUS Primary Care Unavailable SHERIF-HAYDE, MOHAMMAD A Referring Unavailable OBAYUWANA, ALPHONSUS Primary Care Unavailable BERNIE PULIDO Referring Unavailable BENSON DIAL Primary Care Unavailable Vinicius Quintana MD Primary Care Provider Vinicius Quintana MD Primary Care Provider SHAKIR CHOI Referring Unavailable DEFRANCE, VINICIUS Huntley Primary Care Unavailable IFRAH DÍAZ Attending Unavailable STEPHSHAKIR R Referring Unavailable DEFRANCE, VINICIUS Huntley Primary Care Unavailable SHAKIR CHOI R Referring Unavailable DEFRANCE, VINICIUS Huntley Primary Care Unavailable Benson Dial MD Primary Care Provider Un available MEDARDO, VINICIUS Huntley. Primary Care Unavailable KARENA FLYNN Attending Unavailable NAS THOMAS Admitting Unavaila ble DEFMOY, VINICIUS Huntley Primary Care Unavailable CARROL DAVIS Attending Unavailable DEFRANCE, VINICIUS Huntley Primary Care Unavailable JUAN MIGUEL HOLDEN Admitting Unavailable ADINAJUAN MIGUEL DO Attending Unavailable DEFRANCE, VINICIUS Huntley Primary Care Unavailable SARAH, TIBERIU Admitting Unavailable SARAHLAURAERIU Attending Unavailable DEFRANCE, VINICIUS Huntley Primary Care Unavailable CORINA JEAN Attending Unavailable DEFRANCE, VINICIUS Huntley Primary Care Unavailable DEFRANCE, VINICIUS Huntley Primary Care Unavailable SOPHIA GALO Attending Unavailable STEPH, SHAKIR Attending Unavailable STEPH, SHAKIR Attending Unavailable SOPHIA GALO Attending Unavailable STEPH, SHAKIR Attending Unavailable SOPHIA GALO Attending Unavailable SHAKIR CHOI Attending Unavailable Medications Current Medications Medication Drug Class(es) [...] 02/27/2023 Active cephalexin 500 mg oral capsule (4 sources) Cephalosporin Antibacterial Start: 06-23-2024 End: 06-30-2024 take 1 capsule by mouth in the morning, then take 1 capsule by mouth in the evening, then take 1 capsule by mouth at bedtime cephalexin (Keflex) 500 MG capsule Indications: Urinary tract infection with hematuria, site unspecified Take 1 capsule (500 mg) by mouth in the morning and 1 capsule (500 mg) in the evening and 1 capsule (500 mg) before bedtime. Do all this for 7 days. 21 capsule 06/23/2024 06/30/2024 Active Start: 08-21-2021 End: 08-28-2021 take 1 capsule [...] Agonist, Catecholamine, Amide Local Anesthetic Start: 03-10-2023 lidocaine-EPINEPHr ine 1 %-1:[id number] injection 1 mL ferrous sulfate 325 mg [...] Active MV-Min-Fe Fum-FA-DH A ( 1 PO) (20 sources) MV-Min- Fe Fum-FA-DHA ( 1 PO) [...] Onset: 12-05-2023 Episodic Early or threatened labor (6 sources) labor in third trimester with delivery [...] - iron; Translations: [Intestinal malabsorption, unspecified] Onset: 09-11-2021 09-11-2021 Chronic Other screening for suspected conditions (not mental [...] of ] 05-05-2024 Episodic Residual codes; unclassified (14 sources) Gestation period, 27 weeks; Translations: [27 [...] [31 weeks gestation of ] 06-09-2024 Episodic Residual codes; unclassified (2 sources) Gestation period, 33 weeks; Translations: [33 weeks gestation of ] 06-23-2024 Episodic Short gestation; low weight; and growth retardation (1 source) Iarsl-dhj-ntehd baby; Translations: [ small for gestational age, unspecified weight] 05-24-2024 Episodic Unclassified (1 source) Thrombocytosis, unspecified; Translations: [Thrombocytosis, unspecified] Onset: 12-05-2023 Unclassified (1 source) Maternal care for other (suspected) abnormality and damage, lower extremities anomalies, other fetus; Translations: [Maternal care for other (suspected) abnormality and damage, lower extremities anomalies, other fetus] Onset: 05-05-2024 Unclassified (1 source) H/X PTD x2 Onset: 05-05-2024 Unclassified (1 source) Club Foot Onset: 05-05-2024 Unclassified (1 source) Decreased Movement Onset: 06-22-2024 Unclassified (1 source) Contractions Onset: 05-13-2024 Unclassified (1 source) Rupture of Membranes Onset: 04-09-2024 Unclassified (1 source) Vaginal Bleeding - Onset: 02-26-2024 Unclassified (1 source) Morning Sickness Onset: 12-20-2023 Unclassified (1 source) Cold Like Symptoms Onset: 07-17-2023 Urinary tract infections (6 sources) Urinary tract infectious disease; Translations: [Urinary [...] 01-02-2024 Episodic Other aftercare (1 source) Other parts counterman (current) drug therapy; Translations: [Other parts counterman (current) drug therapy] Onset: 11-06-2023 Episodic Other [...] 08-21-2021 Episodic Other and delivery including normal (20 sources) Encounter for supervision of other normal , first trimester; Translations: [Encounter for supervision of normal , unspecified, first trimester] Onset: 04-28-2018 Resolved: 10-03-2021 Episodic Other upper respiratory disease (1 source) Pain in throat Onset: 07-17-2023 Episodic Poisoning by psychotropic agents (3 sources) [...] Test Name Value Interpretation Reference Range Facility US OB BPP W NON-STRESS on 06-23-[address] [address] Ultrasound Report Signed Patient: HOMERO DE LEON MR#: [id number] : 1990 Acct:[id number] Age/Sex: 33 / F ADM Date: Loc: [facility] 251-[address]: Shakir Choi D.O. Ordering Physician: Shakir Choi D.O. Date of Service: 06/23/24 Procedure(s): US OB BPP w non-stress Accession Number(s): [id number] cc: VINICIUS QUINTANA ; Shakir Choi D.O. The [address] [address] Patient Name: HOMERO DE LEON MRN: [facility]:[id number] date: 1990 Sex: F Assigned Patient Location: [facility] Current Patient Location: [facility] Accession/Order Number: [id number] Exam Date: 06/23/2024 14:01 Report Date: 06/23/2024 14:27 At the request of: SHAKIR CHOI Procedure: US OB BPP w non-stress EXAMINATION: US OB BPP w non-stress HISTORY: contractions COMPARISON: Ultrasound OB anatomy 04/06/2024 TECHNIQUE: Ultrasound biophysical profile was performed in the radiology department. BREATHING MOVEMENTS: 2 GROSS BODY MOVEMENTS: 2 TONE: 2 QUALITATIVE AMNIOTIC FLUID VOLUME: 2 PRESENTATION: CEPHALIC HEART RATE: 122.99 bpm AMNIOTIC FLUID VOLUME: 9.38 cm GESTATIONAL AGE: 33 weeks 4 days US/US OB BPP w non-stress IMPRESSION: 1. Total biophysical profile score: 8 2. Amniotic fluid volume is approaching the lower limits of normal. Electronically authenticated by: SALLIE MCKEON Date: 06/23/2024 14:27 Dictated By: Sallie Mckeon M.D. Signed By: 06/23/24 1430 DD/ 1427 TD/TT: Mannequin Maker: [facility] Radiology, Radiologist, MD - 06/23/[address] [address] Ultrasound Report Signed Patient: HOMERO DE LEON MR#: [id number] : 1990 Acct:[id number] Age/Sex: 33 / F ADM Date: Loc: [facility] 251-[address]: Shakir Choi D.O. Ordering Physician: Shakir Choi D.O. Date of Service: 06/23/24 Procedure(s): US OB BPP w non-stress Accession Number(s): [id number] cc: VINICIUS QUINTANA ; Shakir Choi D.O. [place] [id number] Patient Name: HOMERO DE LEON MRN: [id number] date: 1990 Sex: F Assigned Patient Location: [facility] Current Patient Location: [facility] Accession/Order Number: [id number] Exam Date: 06/23/2024 14:01 Report Date: 06/23/2024 14:27 At the request of: SHAKIR CHOI Procedure: US OB BPP w non-stress EXAMINATION: US OB BPP w non-stress HISTORY: contractions COMPARISON: Ultrasound OB anatomy 04/06/2024 TECHNIQUE: Ultrasound biophysical profile was performed in the radiology department. BREATHING MOVEMENTS: 2 GROSS BODY MOVEMENTS: 2 TONE: 2 QUALITATIVE AMNIOTIC FLUID VOLUME: 2 PRESENTATION: CEPHALIC HEART RATE: 122.99 bpm AMNIOTIC FLUID VOLUME: 9.38 cm GESTATIONAL AGE: 33 weeks 4 days US/US OB BPP w non-stress IMPRESSION: 1. Total biophysical profile score: 8 2. Amniotic fluid volume is approaching the lower limits of normal. Electronically authenticated by: SALLIE MCKEON Date: 06/23/2024 14:27 Dictated By: Sallie Mckeon M.D. Signed By: 06/23/24 1430 DD/ 1427 TD/TT: Mannequin Maker: [facility] Radiology Study observation (narrative) [facility] US OB BPP W NON-STRESS Ordered By: Radiologist Radiology on 06-23-2024 [facility] Work Phone: Urinalysis macro (dipstick) panel (U)on 06-23-2024 Bilirubin, UA Positive Negative - 4(70) +++ mg/dL [facility] Comment on above: small Blood, UA Positive Negative - 50 Papo/mcL [facility] Comment on above: trace Clarity, UA Clear [facility] Color, UA Sera [facility] Glucose, UA Negative Negative - 2000(110) ++++ mg/dL [facility] Interpretation and review of laboratory results Abnormal [facility] Ketones, UA Positive Negative - 160(16) ++++ mg/dL [facility] Comment on above: 15 Leukocytes, UA Positive Negative - 500+++ Akash/mcL [facility] Comment on above: large Nitrite, UA Positive Negative - Positive [facility] pH, UA 6.5 5 - 9 [facility] Protein, UA Positive Negative - 2000(20) ++++ mg/dL [facility] Comment on above: 100 Spec Grav, UA 1.025 1 - 1.03 [facility] Urobilinogen, UA 1.0 0.2 - 12 mg/dL [facility] CHLAMYDIA/GC BY PCRon 2024 CHLAMYDIA/GC BY PCR SPECIMEN SOURCE CERVICAL CHLAMYDIA DNA(PCR) Negative (qualifier value) Chlamydia trachomatis not detected by nucleic acid amplification. This does not exclude the possibility of infection because results are dependent on adequate specimen collection. GONORRHOEAE DNA(PCR) Negative (qualifier value) Neisseria gonorrhoeae not detected by nucleic acid amplification. This does not exclude the possibility of infection because results are dependent on adequate specimen collection. Normal [facility] Comment on above: Performed By: #### 2 106-3 #### [facility] ([id number]) [address] [place] [address] DRUG SCREEN, URINEon 025 AMPHETAMINE/METHAMP Negative Normal NEG [facility] Comment on above: Result Comment: AMPH /METH screening cut off = 1000 ng/mL Performed By: #### 2 106-3 #### [facility] ([id number]) [address] [place] [address] BARBITURATES Negative Normal NEG [facility] Comment on above: Result Comment: Allison iturates screening cut off value = 200 ng/mL Performed By: #### 2 106-3 #### [facility] ([id number]) [address] [place] [address] BENZODIAZEPINES Negative Normal NEG [facility] Comment on above: Result Comment: Dave odiazepines screening cut off value = 200 ng/mL Performed By: #### 2 106-3 #### [facility] ([id number]) [address] [place] [address] CANNABINOIDS Negative Normal NEG [facility] Comment on above: Result Comment: Eddie abinoids/THC screening cut off value = 50 ng/mL Performed By: #### 2 106-3 #### [facility] ([id number]) [address] [place] [address]2019 COCAINE METABOLITE Negative Normal NEG [facility] Comment on above: Result Comment: Coca ine screening cut off value = 300 ng/mL Performed By: #### 2 106-3 #### [facility] ([id number]) [address] [place] [address] ECSTASY Negative Normal NEG [facility] Comment on above: Result Comment: Ecst asy screening cut off value = 500 ng/mL This report is intended for use in clinical monitoring or management of patients. Performed By: #### 2 106-3 #### [facility] ([id number]) [address] [place] [address] 479[address] METHADONE Negative Normal NEG [facility] Comment on above: Result Comment: Meth adone screening cut off value = 300 ng/mL. Performed By: #### 2 106-3 #### [facility] ([id number]) [address] [place] [address] OPIATES Negative Normal NEG [facility] Comment on above: Result Comment: Opia victoria screening cut off value = 300 ng/mL NOTE: This test is used for the detection of codeine, hydrocodone (>1000 ng/mL), morphine and hydromorphone (>900 ng/mL) in urine. Performed By: #### 2 106-3 #### [facility] ([id number]) [address] [place] [address] OXYCODONE Negative Normal NEG [facility] Comment on above: Result Comment: Oxyc odone screening cut off value = 300 ng/mL NOTE: This test is used for the detection of oxycodone and oxymorphone in urine. Performed By: #### 2 106-3 #### [facility] ([id number]) [address] [place] [address] PHENCYCLIDINE Negative Normal NEG [facility] Comment on above: Result Comment: Phen cyclidine screening cut off value = 25 ng/mL Performed By: #### 2 106-3 #### [facility] ([id number]) [address] [place] [address] Fibronectin. Ql (Vag fl d)on 06-22-2024 FIBRONECTIN Positive Abnormal NEG [facility] Comment on above: Performed By: #### 2 106-3 #### [facility] ([id number]) [address] [place] [address] STREP B SCREEN CULTUREon S. agalactiae Org specific cx Ql (Vag+Rectum) CULTURE RESULTS POSITIVE FOR GROUP B STREPTOCOCCUS BY NUCLEIC ACID AMPLIFICATION : Group B streptococci remain universally susceptible to penicillin, ampicillin, and cefazolin. Resistance to clindamycin can occur. Please contact laboratory within 48 hr if clindamycin susceptibility testing is needed. Normal [facility] Comment on above: Performed By: #### 2 106-3 #### [facility] ([id number]) [address] [place] [address] URINALYSISon 06-22-2024 Bilirubin Ql (U) Negative Normal NEG [facility] Comment on above: Performed By: #### 2 106-3 #### [facility] ([id number]) [address] [place] [address] BLOOD/HGB MODERATE Abnormal NEG [facility] Comment on above: Performed By: #### 2 106-3 #### [facility] ([id number]) [address] [place] [address] Color (U) YELLOW Normal YELLOW [facility] Comment on above: Performed By: #### 2 106-3 #### [facility] ([id number]) [address] [place] [address] [place] [address] Glucose Ql (U) Negative Normal NEG [facility] Comment on above: Performed By: #### 2 106-3 #### [facility] ([id number]) [address] [place] [address] Ketones Ql (U) >80 Abnormal NEG [facility] Comment on above: Performed By: #### 2 106-3 #### [facility] ([id number]) [address] [place] [address] [place] [address] Leukocyte esterase Test strip Ql (U) Large Abnormal NEG [facility] Comment on above: Performed By: #### 2 106-3 #### [facility] ([id number]) [address] [place] [address], [place] [address] Nitrite Ql (U) Negative Normal NEG [facility] Comment on above: Performed By: #### 2 106-3 #### [facility] ([id number]) [address] [place] [address], [place] [address] pH (U) 7.0 [pH] Normal 5.0-8.5 [facility] Comment on above: Performed By: #### 2 106-3 #### [facility] ([id number]) [address] [place] [address], [place] [address] Protein Ql (U) >300 Abnormal NEG [facility] Comment on above: Performed By: #### 2 106-3 #### [facility] ([id number]) [address] [place] [address] [place] [address] R.B.CELLS 6 /hpf High 0-5 [facility] Comment on above: Performed By: #### 2 106-3 #### [facility] ([id number]) [address] [place] [address] 21369 Specific gravity (U) [Rel density] 1.025 Normal 1.003-1.035 [facility] Comment on above: Performed By: #### 2 106-3 #### [facility] ([id number]) [address] [place] [address] SQUAMOUS EPITHELIUM 5 /hpf Normal 0-5 [facility] Comment on above: Performed By: #### 2 106-3 #### [facility] ([id number]) [address] [place] [address] TURBIDITY CLEAR Normal CLEAR [facility] Comment on above: Performed By: #### 2 106-3 #### [facility] ([id number]) [address] [place] [address] Urobilinogen Qn (U) 1.0 {Migue'U}/dL Normal <1.1 [facility] Comment on above: Performed By: #### 2 106-3 #### [facility] ([id number]) [address] [place] [address] 32854 W.B.CELLS 11 /hpf High 0-5 [facility] Comment on above: Performed By: #### 2 106-3 #### [facility] ([id number]) [address] [place] [address]4469 URINE CULTUREon 06-22-2024 Bacteria identified Cx Nom (U) CULTURE RESULTS <10,000 ORGANISMS/ML NORMAL URO GENITAL JOHN PAUL Normal [facility] Comment on above: Performed By: #### 2 106-3 #### [facility] ([id number]) [address] [place] [address] 39258 VAGINITIS PANEL PCRon 2024 VAGINITIS PANEL PCR BACT. VAGINOSIS DNA Not detected (qualifier value) Qualitative results are reported based [...] GLABRATA DNA Not detected (qualifier value) No Ozzie glabrata detected TRICHOMONAS VAG DNA Not detected (qualifier value) No Trichomonas vaginalis detected NOTE BD MAX Vaginal Panel has not been evaluated for patients under 18 years old. Results for these patients should be reviewed and assessed in accordance with clinical presentation to determine patient diagnosis. Normal [facility] Comment on above: Performed By: #### 2 106-3 #### [facility] ([id number]) [address] [place] [address], [place] [address] Urinalysis macro (dipstick) panel (U)on 05-24-2024 Bilirubin, UA Negative Negative - 4(70) +++ mg/dL [facility] Blood, UA Positive Negative - 50 Papo/mcL [facility] Clarity, UA Clear [facility] Color, UA Yellow [facility] Glucose, UA Negative Negative - 2000(110) ++++ mg/dL [facility] Interpretation and review of laboratory results Abnormal [facility] Ketones, UA Negative Negative - 160(16) ++++ mg/dL [facility] Leukocytes, UA Negative Negative - 500+++ Akash/mcL [facility] Nitrite, UA Negative Negative - Positive [facility] pH, UA 7 5 - 9 [facility] Protein, UA Trace Negative - 2000(20) ++++ mg/dL [facility] Spec Grav, UA 1.02 1 - 1.03 [facility] Urobilinogen, UA 1.0 0.2 - 12 mg/dL [facility] COMPLETE BLOOD COUNTon 05-13 Erythrocyte distribution width (RBC) [Ratio] 12.9 % Normal 11.5-15.0 [facility] Comment on above: Performed By: #### N UM #### [facility] ([id number]) [address] [place] [address] Hematocrit (Bld) [Volume fraction] 30.2 % Low 35-47 [facility] Comment on above: Performed By: #### N UM #### [facility] ([id number]) [address] [place] [address] 20717 Hemoglobin (Bld) [Mass/Vol] 10.4 g/dL Low 11.7-15.5 [facility] Comment on above: Performed By: #### N UM #### [facility] ([id number]) [address] [place] [address] 00585 MCH (RBC) [Entitic mass] 31.3 pg Normal 27-34 [facility] Comment on above: Performed By: #### N UM #### [facility] ([id number]) [address] [place] [address] 47897 MCHC (RBC) [Mass/Vol] 34.3 g/dL Normal 32-36 [facility] Comment on above: Performed By: #### N UM #### [facility] ([id number]) [address] [place] [address] 83940 MCV (RBC) [Entitic vol] 92 fL Normal 80-100 [facility] Comment on above: Performed By: #### N UM #### [facility] ([id number]) [address] [place] [address] 13672 Platelet mean volume (Bld) [Entitic vol] 8.7 fL Normal 7-12 [facility] Comment on above: Performed By: #### N UM #### [facility] ([id number]) [address] [place] [address] 86716 Platelets (Bld) [#/Vol] 285 10*3/uL Normal 150-450 [facility] Comment on above: Performed By: #### N UM #### [facility] ([id number]) [address] [place] [address] 72056 RBC COUNT 3.31 X10E12/L Low 3.80-5.20 [facility] Comment on above: Performed By: #### N UM #### [facility] ([id number]) [address] [place] [address] 04251 WBC (Bld) [#/Vol] 13.6 10*3/uL High 4.0-11.0 [facility] Comment on above: Performed By: #### N UM #### [facility] ([id number]) [address] [place] [address] 26401 COMPREHENSIVE METABOLIC PANE Baljit 05-13-2024 Albumin [Mass/Vol] 3.3 g/dL Normal 3.2-5.3 [facility] Comment on above: Performed By: #### N UM #### [facility] ([id number]) [address] [place] [address] 45397 ALP [Catalytic activity/Vol] 52 U/L Normal 39-130 [facility] Comment on above: Performed By: #### N UM #### [facility] ([id number]) [address] [place] [address] 77212 ALT [Catalytic activity/Vol] 10 U/L Normal 0-31 [facility] Comment on above: Performed By: #### N UM #### [facility] ([id number]) [address] [place] [address] 22135 Anion gap [Moles/Vol] 9 mmol/L Normal 5-15 [facility] Comment on above: Performed By: #### N UM #### [facility] ([id number]) [address] [place] [address] 27156 AST [Catalytic activity/Vol] 16 U/L Normal 0-41 [facility] Comment on above: Performed By: #### N UM #### [facility] ([id number]) [address] [place] [address] 18547 Bilirubin [Mass/Vol] 0.8 mg/dL Normal 0.3-1.2 [facility] Comment on above: Performed By: #### N UM #### [facility] ([id number]) [address] [place] [address] 15800 Calcium [Mass/Vol] 9.4 mg/dL Normal 8.5-10.5 [facility] Comment on above: Performed By: #### N UM #### [facility] ([id number]) [address] [place] [address] 34598 Chloride [Moles/Vol] 104 mmol/L Normal 98-109 [facility] Comment on above: Performed By: #### N UM #### [facility] ([id number]) [address] [place] [address] 71794 CO2 [Moles/Vol] 22 mmol/L Normal 22-32 [facility] Comment on above: Performed By: #### N UM #### [facility] ([id number]) [address] [place] [address] 01446 Creatinine [Mass/Vol] 0.63 mg/dL Normal 0.40-1.00 [facility] Comment on above: Result Comment: METH OD TRACEABLE TO IDMS STANDARD Performed By: #### N UM #### [facility] ([id number]) [address] [place] [address] 80591 eGFR (CKD-EPI) NON-RACE DEPENDENT >90 Normal >59 [facility] Comment on above: Result Comment: Reported eGFR is based on the CKD-EPI 2020 equation that does not use a race coefficient. Performed By: #### N UM #### [facility] ([id number]) [address] [place] [address] 82859 Glucose [Mass/Vol] 99 mg/dL Normal 65-99 [facility] Comment on above: Performed By: #### N UM #### [facility] ([id number]) [address] [place] [address] 45469 Potassium [Moles/Vol] 2.8 mmol/L Low 3.5-5.0 [facility] Comment on above: Performed By: #### N UM #### [facility] ([id number]) [address] [place] [address] 33454 Protein [Mass/Vol] 6.9 g/dL Normal 6.0-8.0 [facility] Comment on above: Performed By: #### N UM #### [facility] ([id number]) [address] [place] [address] 73446 Sodium [Moles/Vol] 135 mmol/L Normal 134-146 [facility] Comment on above: Performed By: #### N UM #### [facility] ([id number]) [address] [place] [address] 07922 Urea nitrogen [Mass/Vol] 7 mg/dL Normal 5-23 [facility] Comment on above: Performed By: #### N UM #### [facility] ([id number]) [address] [place] [address] Fibronectin. Ql (Vag fl d)on 05-13-2024 FIBRONECTIN Negative Normal NEG [facility] Comment on above: Performed By: #### N UM #### [facility] ([id number]) [address] [place] [address] STREP B SCREEN CULTUREon S. agalactiae Org specific cx Ql (Vag+Rectum) CULTURE RESULTS NEGATIVE FOR GROUP B STREPTOCOCCUS BY NUCLEIC ACID AMPLIFICATION Normal [facility] Comment on above: Performed By: #### 2 106-3 #### [facility] ([id number]) [address] [place] [address], [place] [address] URINALYSISon 05-13-2024 Bilirubin Ql (U) Negative Normal NEG [facility] Comment on above: Performed By: #### N UM #### [facility] ([id number]) [address] [place] [address], [place] [address] BLOOD/HGB Trace Abnormal NEG [facility] Comment on above: Performed By: #### N UM #### [facility] ([id number]) [address] [place] [address], [place] [address] Color (U) YELLOW Normal YELLOW [facility] Comment on above: Performed By: #### N UM #### [facility] ([id number]) [address] [place] [address], [place] [address] Glucose Ql (U) Negative Normal NEG [facility] Comment on above: Performed By: #### N UM #### [facility] ([id number]) [address] [place] [address], [place] [address] Ketones Ql (U) Negative Normal NEG [facility] Comment on above: Performed By: #### N UM #### [facility] ([id number]) [address] [place] [address], [place] [address] Leukocyte esterase Test strip Ql (U) Large Abnormal NEG [facility] Comment on above: Performed By: #### N UM #### [facility] ([id number]) [address] [place] [address], [place] [address] Nitrite Ql (U) Negative Normal NEG [facility] Comment on above: Performed By: #### N UM #### [facility] ([id number]) [address] [place] [address], [place] [address] pH (U) 7.0 [pH] Normal 5.0-8.5 [facility] Comment on above: Performed By: #### N UM #### [facility] ([id number]) [address] [place] [address] Protein Ql (U) Negative Normal NEG [facility] Comment on above: Performed By: #### N UM #### [facility] ([id number]) [address] [place] [address] R.B.CELLS 0 to 1 Normal 0-5 [facility] Comment on above: Performed By: #### N UM #### [facility] ([id number]) [address] [place] [address] Specific gravity (U) [Rel density] 1.010 Normal 1.003-1.035 [facility] Comment on above: Performed By: #### N UM #### [facility] ([id number]) [address] [place] [address] SQUAMOUS EPITHELIUM 5 /hpf Normal 0-5 [facility] Comment on above: Performed By: #### N UM #### [facility] ([id number]) [address] [place] [address] TURBIDITY CLEAR Normal CLEAR [facility] Comment on above: Performed By: #### N UM #### [facility] ([id number]) [address] [place] [address] [place] [address] Urobilinogen Qn (U) 0.2 {Migue'U}/dL Normal <1.1 [facility] Comment on above: Performed By: #### N UM #### [facility] ([id number]) [address] [place] [address] [place] [address] W.B.CELLS 5 /hpf Normal 0-5 [facility] Comment on above: Performed By: #### N UM #### [facility] ([id number]) [address] [facility] [place] [address] US BIOPHYSICAL PROFILE FET W O NSTon [...] Bueno MD on 05/13/2024 8:41 AM Normal [facility] No Panel Informationon 05-11 STAPHYLOCOCCUS EPIDERMIDIS, [...] detected [facility] PSEUDOMONAS AERUGINOSA 0 NO [facility] PSEUDOMONAS AERUGINOSA Not detected [facility] SERRATIA MARCESCENS 0 [facility] SERRATIA MARCESCENS Not detected [facility] STAPHYLOCOCCUS AUREUS 0 [facility] STAPHYLOCOCCUS AUREUS Not detected [facility] STREPTOCOCCUS AGALACTIAE (GROUP B STREP) 0 [facility] STREPTOCOCCUS AGALACTIAE (GROUP B STREP) Not detected [facility] STREPTOCOCCUS PYOGENES (GROUP A STREP) 0 [facility] STREPTOCOCCUS PYOGENES (GROUP A STREP) Not detected [facility] Urinalysis macro (dipstick) panel (U)on 05-10-2024 Bilirubin, UA Negative Negative - 4(70) +++ mg/dL [facility] Blood, UA Negative Negative - 50 Papo/mcL [facility] Clarity, UA Clear [facility] Color, UA Dark Sera [facility] Glucose, UA Negative Negative - 1999(110) ++++ mg/dL [facility] Interpretation and review of laboratory results Abnormal [facility] Ketones, UA Negative Negative - 160(16) ++++ mg/dL [facility] Leukocytes, UA Negative Negative - 500+++ Akash/mcL [facility] Nitrite, UA Positive Negative - Positive [facility] pH, UA 7.5 5 - 9 [facility] Protein, UA Positive Negative - 1999(20) ++++ mg/dL [facility] Comment on above: 30mg/dL Spec Grav, UA 1.02 1 - 1.03 [facility] Urobilinogen, UA 1.0 0.2 - 12 mg/dL [facility] Urinalysis macro (dipstick) panel (U)on 04-12-2024 Bilirubin, UA Negative Negative - 4(70) +++ mg/dL [facility] Blood, UA Negative Negative - 50 Papo/mcL [facility] Clarity, UA Clear [facility] Color, UA Yellow [facility] Glucose, UA Negative Negative - 1999(110) ++++ mg/dL [facility] Interpretation and review of laboratory results Abnormal [facility] Ketones, UA Positive Negative - 160(16) ++++ mg/dL [facility] Leukocytes, UA Negative Negative - 500+++ Akash/mcL [facility] Nitrite, UA Negative Negative - Positive [facility] pH, UA 7 5 - 9 [facility] Protein, UA Negative Negative - 1999(20) ++++ mg/dL [facility] Spec Grav, UA 1.02 1 - 1.03 [facility] Urobilinogen, UA 0.2 0.2 - 12 mg/dL [facility] CHLAMYDIA/GC BY PCRon 2023 CHLAMYDIA/GC BY PCR [...] are dependent on adequate specimen collection. Normal [facility] Comment on above: Performed By: #### N UM #### [facility] ([id number]) [address] [place] [address]605 HIV 1+2 Ab+HIV1 p24 Ag IA Ql on 04-09-2024 HIV 1 and 2 Ab/Ag Screen Non-Reactive Normal NRCT [facility] Comment on above: Result Comment: This [...] diagnoses. Performed By: #### N UM #### [facility] ([id number]) [address] [place] [address] T. pallidum IgG+IgM IA Ql (S )on 04-09-2024 Syphilis Total <0.2 Normal 0.0-0.8 [facility] Comment on above: Result Comment: NON REACTIVE No serologic evidence of infection to Treponema pallidum (syphilis). Repeat testing may be considered in patients with suspected acute or primary syphilis in 2 to 4 weeks. Performed By: #### N UM #### [facility] ([id number]) [address] [place] [address], [place] [address] URINALYSISon 04-09-2024 Bilirubin Ql (U) Negative Normal NEG [facility] Comment on above: Performed By: #### N UM #### [facility] ([id number]) [address] [place] [address], [place] [address] BLOOD/HGB Negative Normal NEG [facility] Comment on above: Performed By: #### N UM #### [facility] ([id number]) [address] [place] [address], [place] [address] Color (U) YELLOW Normal YELLOW [facility] Comment on above: Performed By: #### N UM #### [facility] ([id number]) [address] [place] [address], [place] [address] Glucose Ql (U) Negative Normal NEG [facility] Comment on above: Performed By: #### N UM #### [facility] ([id number]) [address] [place] [address], [place] [address] Ketones Ql (U) Trace Abnormal NEG [facility] Comment on above: Performed By: #### N UM #### [facility] ([id number]) [address] [place] [address], [place] [address] Leukocyte esterase Test strip Ql (U) Trace Abnormal NEG [facility] Comment on above: Performed By: #### N UM #### [facility] ([id number]) [address] [place] [address], [place] [address] Nitrite Ql (U) Negative Normal NEG [facility] Comment on above: Performed By: #### N UM #### [facility] ([id number]) [address] [place] [address], [place] [address] pH (U) 7.0 [pH] Normal 5.0-8.5 [facility] Comment on above: Performed By: #### N UM #### [facility] ([id number]) [address] [place] [address] 02266 Protein Ql (U) Trace Abnormal NEG [facility] Comment on above: Performed By: #### N UM #### [facility] ([id number]) [address] [place] [address] 20754 R.B.CELLS 2 /hpf Normal 0-5 [facility] Comment on above: Performed By: #### N UM #### [facility] ([id number]) [address] [place] [address] 77174 Specific gravity (U) [Rel density] 1.025 Normal 1.003-1.035 [facility] Comment on above: Performed By: #### N UM #### [facility] ([id number]) [address] [place] [address] SQUAMOUS EPITHELIUM 4 /hpf Normal 0-5 [facility] Comment on above: Performed By: #### N UM #### [facility] ([id number]) [address] [place] [address] TURBIDITY CLEAR Normal CLEAR [facility] Comment on above: Performed By: #### N UM #### [facility] ([id number]) [address] [place] [address] Urobilinogen Qn (U) 0.2 {Migue'U}/dL Normal <1.1 [facility] Comment on above: Performed By: #### N UM #### [facility] ([id number]) [address] [place] [address] W.B.CELLS 3 /hpf Normal 0-5 [facility] Comment on above: Performed By: #### N UM #### [facility] ([id number]) [address] [place] [address] No Panel Informationon 04-06 Interpretation and review of laboratory results Abnormal [facility] TB UA (CLEAN/CATCH) 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 YELLOW YELLOW [facility] GLUCOSE URINE UA Negative NEGATIVE mg/dL [facility] Ketones Ql (U) Negative NEGATIVE mg/dL [facility] Leukocyte esterase Test strip Ql (U) SMALL Abnormal NEGATIVE [facility] NITRITE URINE Negative NEGATIVE [facility] pH (U) 7.0 [pH] 5.0 - 9.0 [facility] PROTEIN URINE Negative NEG/TRACE mg/dL [facility] SPECIFIC GRAVITY URINE 1.010 1.005 - 1.025 [facility] URINE MICROSCOPIC INDICATED YES [facility] UROBILINOGEN URINE 1.0 EU/dL 0.2 - 1.0 EU/dL [facility] URINE MICROSCOPIC ONLYon 04-06-2024 BACTERIA URINE TRACE Abnormal NONE SEEN #/HPF [facility] CAST SEEN? NONE SEEN NONE SEEN #/LPF [facility] CRYSTALS SEEN? None Seen None Seen #/HPF [facility] MUCUS URINE NONE SEEN NONE SEEN [facility] SQUAMOUS EPITHELIAL CELL URINE FEW Abnormal NONE/RARE #/LPF [facility] RBC 0-2 [facility] WBC 2-5 Abnormal NONE SEEN #/HPF [facility] URINE CULTURE INDICATED YES [facility] Urinalysis macro (dipstick) panel (U)on 03-15-2024 Bilirubin, UA Negative Negative - 4(70) +++ mg/dL [facility] Blood, UA Negative Negative - 50 Papo/mcL [facility] Clarity, UA Clear [facility] Color, UA Yellow [facility] Glucose, UA Negative Negative - 1999(110) ++++ mg/dL [facility] Interpretation and review of laboratory results Abnormal [facility] Ketones, UA Positive Negative - 160(16) ++++ mg/dL [facility] Leukocytes, UA Positive Negative - 500+++ Akash/mcL [facility] Nitrite, UA Positive Negative - Positive [facility] pH, UA 7 5 - 9 [facility] Protein, UA Positive Negative - 1999(20) ++++ mg/dL [facility] Spec Grav, UA 1.02 1 - 1.03 [facility] Urobilinogen, UA 1.0 0.2 - 12 mg/dL [facility] CHLAMYDIA/GC BY PCRon 2023 CHLAMYDIA/GC BY PCR [...] are dependent on adequate specimen collection. Normal [facility] Comment on above: Performed By: #### C GS #### [facility] ([id number]) [address] [place] [address] [facility] ([id number]) [address], [address] [place] [address] HCG ( test) Ql (U)o n 02-26-2024 Beta HCG ( test) Ql (U) Positive Abnormal NEG [facility] Comment on above: Performed By: #### 2 106-3 #### [facility] ([id number]) [address] [place] [address] URINE CULTUREon 02-26-2024 Bacteria identified Cx Nom [...] F TRIMETH/SULFAMETHOXA ZOLE S <=1/19 F Susceptible [facility] Comment on above: Performed By: #### N UM #### [facility] ([id number]) [address] [place] [address] URN MACROSCOPIC NURon 2023 BILIRUBIN ALEKSANDRA Negative Normal NEG [facility] Comment on above: Performed By: #### N UM #### [facility] ([id number]) [address] [place] [address]52 BLOOD/HGB ALEKSANDRA Trace Abnormal NEG [facility] Comment on above: Performed By: #### N UM #### [facility] ([id number]) [address] [place] [address] [place] [address] GLUCOSE ALEKSANDRA Negative Normal NEG [facility] Comment on above: Performed By: #### N UM #### [facility] ([id number]) [address] [place] [address] [place] [address] KETONES ALEKSANDRA 80 mg/dL Abnormal NEG [facility] Comment on above: Performed By: #### N UM #### [facility] ([id number]) [address] [place] [address] [place] [address] LEUKOCYTE ESTERASE ALEKSANDRA Negative Normal NEG [facility] Comment on above: Performed By: #### N UM #### [facility] ([id number]) [address] [place] [address] [place] [address] NITRITE ALEKSANDRA Negative Normal NEG [facility] Comment on above: Performed By: #### N UM #### [facility] ([id number]) [address] [place] [address] [place] [address] PH ALEKSANDRA 6.0 Normal 5.0-8.5 [facility] Comment on above: Performed By: #### N UM #### [facility] ([id number]) [address] [place] [address] PROTEIN ALEKSANDRA >=300 Abnormal NEG [facility] Comment on above: Performed By: #### N UM #### [facility] ([id number]) [address] [place] [address] [place] [address] SPECIFIC GRAVITY ALEKSANDRA >=1.030 Normal 1.003-1.035 [facility] Comment on above: Performed By: #### N UM #### [facility] ([id number]) [address] [place] [address] UROBILINOGEN ALEKSANDRA 1.0 eu/dL Normal <1.1 [facility] Comment on above: Performed By: #### N UM #### [facility] ([id number]) [address] [place] [address] VAGINITIS PANEL PCRon 2023 VAGINITIS PANEL PCR [...] GLABRATA DNA Not detected (qualifier value) No Ozzie glabrata detected TRICHOMONAS VAG DNA Not detected (qualifier value) No Trichomonas vaginalis detected NOTE BD MAX Vaginal Panel has not been evaluated for patients under 18 years old. Results for these patients should be reviewed and assessed in accordance with clinical presentation to determine patient diagnosis. Normal [facility] Comment on above: Performed By: #### N UM #### [facility] ([id number]) [address] [place] [address] 20692 URETHRITIS/DISCHARGE PLUS VA GINITIS (HTRX)on 01-31-2024 ATOPOBIUM VAGINAE 20.240 Abnormal [facility] ATOPOBIUM VAGINAE Detected Abnormal [facility] BVAB 2,3 (BACTERIAL VAGINOSIS ASSOCIATED BACTERIA 2, 3); MOBILUNCUS SPP 14.521 Abnormal [facility] BVAB 2,3 (BACTERIAL VAGINOSIS ASSOCIATED BACTERIA 2, 3); MOBILUNCUS SPP Detected Abnormal [facility] OZZIE ALBICANS, PARAPSILOSIS, TROPICALIS 0.000 [facility] OZZIE ALBICANS, PARAPSILOSIS, TROPICALIS Not detected [facility] OZZIE GLABRATA 0.000 [facility] OZZIE GLABRATA Not detected [facility] OZZIE KRUSEI 0.000 [facility] OZZIE KRUSEI Not detected [facility] CHLAMYDIA TRACHOMATIS 0.000 [facility] CHLAMYDIA TRACHOMATIS Not detected N [facility] ERMB, C; MEFA 22.470 Abnormal [facility] ERMB, C; MEFA Detected Abnormal [facility] GARDNERELLA VAGINALIS 25.182 Abnormal [facility] GARDNERELLA VAGINALIS Detected Abnormal [facility] Interpretation and review of laboratory results Abnormal [facility] MEGASPHAERA (TYPES 1, 2) 21.331 Abnormal [facility] MEGASPHAERA (TYPES 1, 2) Detected Abnormal [facility] MYCOPLASMA GENITALIUM 0.000 [facility] MYCOPLASMA GENITALIUM Not detected N [facility] NEISSERIA GONORRHOEAE 0.000 [facility] NEISSERIA GONORRHOEAE Not detected N [facility] TET B, TET M 22.938 Abnormal [facility] TET B, TET M Detected Abnormal [facility] TRICHOMONAS VAGINALIS 0.000 [facility] TRICHOMONAS VAGINALIS Not detected N [facility] Urinalysis macro (dipstick) panel (U)on 01-29-2024 Bilirubin, UA Positive Negative - (70) +++ mg/dL [facility] Comment on above: small Blood, UA Negative Negative - 50 Papo/mcL [facility] Clarity, UA Cloudy [facility] Color, UA Yellow [facility] Glucose, UA Negative Negative - 1999(110) ++++ mg/dL [facility] Interpretation and review of laboratory results Abnormal [facility] Ketones, UA Positive Negative - 160(16) ++++ mg/dL [facility] Comment on above: trace Leukocytes, UA Negative Negative - 500+++ Akash/mcL [facility] Nitrite, UA Positive Negative - Positive [facility] pH, UA 6.0 5 - 9 [facility] Protein, UA Trace Negative - 1999(20) ++++ mg/dL [facility] Spec Grav, UA 1.030 1 - 1.03 [facility] Urobilinogen, UA 4.0 0.2 - 12 mg/dL [facility] ALL CBC WITH AUTO DIFFon BASOPHILS ABSOLUTE AUTO 0.0 [facility] Basophils/100 WBC (Bld) 0.3 % 0.2 - 2.0 % [facility] Eosinophils/100 WBC (Bld) 2.3 % 0.9 - 7.0 % [facility] Erythrocyte distribution width (RBC) [Ratio] 12.7 % 11.0 - 15.0 % [facility] Hematocrit (Bld) [Volume fraction] 31.8 % Low 36.0 - 48.0 % [facility] Hemoglobin (Bld) [Mass/Vol] 10.3 g/dL Low 12.0 - 16.0 g/dL [facility] IMMATURE GRANULOCYTES ABS AUTO 0.05 High [facility] Immature granulocytes/100 WBC (Bld) 0.4 % 0.0 - 0.5 % [facility] Interpretation and review of laboratory results Abnormal [facility] LYMPHOCYTES ABSOLUTE AUTO 2.4 [facility] Lymphocytes/100 WBC (Bld) 21.2 % 20.5 - 60.0 % [facility] MCH (RBC) [Entitic mass] 29.9 pg 26.7 - 34.0 pg [facility] MCHC (RBC) [Mass/Vol] 32.4 g/dL 29.9 - 35.2 g/dL [facility] MCV (RBC) [Entitic vol] 92.2 fL 81.0 - 99.0 fL [facility] MONOCYTES ABSOLUTE AUTO 0.8 [facility] Monocytes/100 WBC (Bld) 6.9 % 1.7 - 12.0 % [facility] NEUTROPHILS ABSOLUTE AUTO 8.0 High [facility] Neutrophils/100 WBC (Bld) 68.9 % 43.0 - 75.0 % [facility] Platelet mean volume (Bld) [Entitic vol] 10.9 fL 9.5 - 13.5 fL [facility] TBH EO # 0.3 [facility] TBH PLT 385 [facility] TB RBC 3.45 Low [facility] TBH WBC 11.5 High [facility] ALL TYPE AND SCREENon 2023 ABO and Rh group Nom (Bld) Blood group B Rh(D) positive [facility] MLR HEMOGLOBIN A1Con 024 Glucose [Mass/Vol] 82 mg/dL [facility] HbA1c (Bld) [Mass fraction] 4.5 % 4.5 - 6.2 % [facility] Comment on above: ADA RECOMMENDED LIMI T 4.0 - 6.0 ADA THERAPEUTIC TARGET < 7.0 ACTION SUGGESTED > 7.0 [facility] CBC AND AUTO DIFFon 12-20-19 24 ABSOLUTE BASOPHIL 0.1 X10E9/L Normal 0.0-0.2 [facility] Comment on above: Performed By: #### C CEE ATKINSON, #### [facility] ([id number]) [address] [place] [address] 39621 ABSOLUTE NEUTROPHIL 11.7 X10E9/L High 1.5-6.6 [facility] Comment on above: Performed By: #### Marco Antonio ATKINSON CMP, #### [facility] ([id number]) [address] [place] [address] 75715 Basophils/100 WBC (Bld) 0.4 % Normal [facility] Comment on above: Performed By: #### Marco Antonio ATKINSON [facility], #### [facility] ([id number]) [address] [place] [address] 16469 Eosinophils (Bld) [#/Vol] 0.3 10*3/uL Normal 0.0-0.4 [facility] Comment on above: Performed By: #### Marco Antonio ATKINSON CMP, #### [facility] ([id number]) [address] [place] [address]345 Eosinophils/100 WBC (Bld) 1.6 % Normal [facility] Comment on above: Performed By: #### Marco Antonio ATKINSON CMP, #### [facility] ([id number]) [address] [place] [address] 36403 Erythrocyte distribution width (RBC) [Ratio] 13.0 % Normal 11.5-15.0 [facility] Comment on above: Performed By: #### Marco Antonio ATKINSON CMP, #### [facility] ([id number]) [address] [place] [address] 58551 Hematocrit (Bld) [Volume fraction] 33.1 % Low 35-47 [facility] Comment on above: Performed By: #### Marco Antonio ATKINSON CMP, #### [facility] ([id number]) [address] [place] [address] 60138 Hemoglobin (Bld) [Mass/Vol] 11.1 g/dL Low 11.7-15.5 [facility] Comment on above: Performed By: #### Marco Antonio ATKINSON CMP, #### [facility] ([id number]) [address] [place] [address] 02242 Lymphocytes (Bld) [#/Vol] 2.6 10*3/uL Normal 1.0-3.5 [facility] Comment on above: Performed By: #### Marco Antonio ATKINSON CMP, #### [facility] ([id number]) [address] [place] [address] 14199 Lymphocytes/100 WBC (Bld) 16.5 % Normal [facility] Comment on above: Performed By: #### Marco Antoino ATKINSON CMP, #### [facility] ([id number]) [address] [place] [address] 70976 MCH (RBC) [Entitic mass] 30.3 pg Normal 27-34 [facility] Comment on above: Performed By: #### Marco Antonio ATKINSON CMP, #### [facility] ([id number]) [address] [place] [address] 81174 MCHC (RBC) [Mass/Vol] 33.6 g/dL Normal 32-36 [facility] Comment on above: Performed By: #### Marco Antonio ATKINSON CMP, #### [facility] ([id number]) [address] [place] [address] 13484 MCV (RBC) [Entitic vol] 90 fL Normal 80-100 [facility] Comment on above: Performed By: #### Marco Antonio ATKINSON CMP, #### [facility] ([id number]) [address] [place] [address] 21042 Monocytes (Bld) [#/Vol] 1.2 10*3/uL High 0-0.9 [facility] Comment on above: Performed By: #### Marco Antonio ATKINSON CMP, #### [facility] ([id number]) [address] [place] [address] 55043 Monocytes/100 WBC (Bld) 7.5 % Normal [facility] Comment on above: Performed By: #### Marco Antonio ATKINSON CMP, #### [facility] ([id number]) [address] [place] [address] 54370 Neutrophils/100 WBC (Bld) 74.0 % Normal [facility] Comment on above: Performed By: #### Marco Antonio ATKINSON CMP, #### [facility] ([id number]) [address] [place] [address] 12622 Platelet mean volume (Bld) [Entitic vol] 9.1 fL Normal 7-12 [facility] Comment on above: Performed By: #### Marco Antonio ATKINSON CMP, #### [facility] ([id number]) [address] [place] [address] 32040 Platelets (Bld) [#/Vol] 385 10*3/uL Normal 150-450 [facility] Comment on above: Performed By: #### Marco Antonio ATKINSON CMP, #### [facility] ([id number]) [address] [place] [address] 28461 RBC COUNT 3.67 X10E12/L Low 3.80-5.20 [facility] Comment on above: Performed By: #### C BCA, CMP, #### [facility] ([id number]) [address] [place] [address] 83021 WBC (Bld) [#/Vol] 15.8 10*3/uL High 4.0-11.0 [facility] Comment on above: Performed By: #### C BCA, CMP, #### [facility] ([id number]) [address] [place] [address] 53482 COMPREHENSIVE METABOLIC PANE Baljit 12-20-2023 Albumin [Mass/Vol] 4.2 g/dL Normal 3.2-5.3 [facility] Comment on above: Performed By: #### C BCA, CMP, #### [facility] ([id number]) [address] [place] [address] 90318 ALP [Catalytic activity/Vol] 39 U/L Normal 39-130 [facility] Comment on above: Performed By: #### C BCA, CMP, #### [facility] ([id number]) [address] [place] [address] 48453 ALT [Catalytic activity/Vol] 14 U/L Normal 0-31 [facility] Comment on above: Performed By: #### C BCA, CMP, #### [facility] ([id number]) [address] [place] [address] 79256 Anion gap [Moles/Vol] 6 mmol/L Normal 5-15 [facility] Comment on above: Performed By: #### C BCA, CMP, #### [facility] ([id number]) [address] [place] [address] 97348 AST [Catalytic activity/Vol] 20 U/L Normal 0-41 [facility] Comment on above: Performed By: #### C BCA, CMP, #### [facility] ([id number]) [address] [place] [address] 64242 Bilirubin [Mass/Vol] 0.6 mg/dL Normal 0.3-1.2 [facility] Comment on above: Performed By: #### C CHINA CMP, #### [facility] ([id number]) [address] [place] [address] 30364 Calcium [Mass/Vol] 8.9 mg/dL Normal 8.5-10.5 [facility] Comment on above: Performed By: #### C CEE ATKINSON, #### [facility] ([id number]) [address] [place] [address] 68979 Chloride [Moles/Vol] 104 mmol/L Normal 98-109 [facility] Comment on above: Performed By: #### C CHINA [facility], #### [facility] ([id number]) [address] [place] [address] 27215 CO2 [Moles/Vol] 22 mmol/L Normal 22-32 [facility] Comment on above: Performed By: #### C CEE ATKINSON, #### [facility] ([id number]) [address] [place] [address] 87520 Creatinine [Mass/Vol] 0.56 mg/dL Normal 0.40-1.00 [facility] Comment on above: Result Comment: METH OD TRACEABLE TO IDMS STANDARD Performed By: #### C CEE ATKINSON, #### [facility] ([id number]) [address] [place] [address] 76228 eGFR (CKD-EPI) NON-RACE DEPENDENT >90 Normal >59 [facility] Comment on above: Result Comment: Reported eGFR is based on the CKD-EPI 2020 equation that does not use a race coefficient. Performed By: #### C [place], [facility], #### [facility] ([id number]) [address] [place] [address] 54509 Glucose [Mass/Vol] 112 mg/dL High 65-99 [facility] Comment on above: Performed By: #### C [place], CMP, #### [facility] ([id number]) [address] [place] [address] 46233 Potassium [Moles/Vol] 3.2 mmol/L Low 3.5-5.0 [facility] Comment on above: Performed By: #### C [place], [facility], #### [facility] ([id number]) [address] [place] [address] 85673 Protein [Mass/Vol] 7.6 g/dL Normal 6.0-8.0 [facility] Comment on above: Performed By: #### C [place], [facility], #### [facility] ([id number]) [address] [place] [address] 00769 Sodium [Moles/Vol] 132 mmol/L Low 134-146 [facility] Comment on above: Performed By: #### C [place], [facility], #### [facility] ([id number]) [address] [place] [address] 22784 Urea nitrogen [Mass/Vol] 9 mg/dL Normal 5-23 [facility] Comment on above: Performed By: #### C BCA, [facility], #### [facility] ([id number]) [address] [place] [address] 29809 HCG ( test) Ql (U)o n 12-20-2023 Beta HCG ( test) Ql (U) Positive Abnormal NEG [facility] Comment on above: Performed By: #### 2 106-3 #### [facility] ([id number]) [address] [place] [address] 44325 HCG.beta subunit IA 3rd IS Q non 12-20-2023 [place] [address] m[IU]/mL Normal P [facility] Comment on above: Result Comment: NEW REFERENCE [...] nontrophoblastic neoplasms. Performed By: #### C BCA, [facility], 70655-1 #### [facility] ([id number]) [address] [place] [address] 30165 URINE CULTUREon 12-20-2023 Bacteria identified Cx Nom (U) CULTURE RESULTS NO GROWTH AT <1000 CFU/mL Normal [facility] Comment on above: Performed By: #### 6 30-4 #### [facility] ([id number]) [address] [place] [address], [address] [place] [address] URN MACROSCOPIC NURon 2023 BILIRUBIN ALEKSANDRA Negative Normal NEG [facility] Comment on above: Performed By: #### N UM #### [facility] ([id number]) [address] [place] [address] 70800 BLOOD/HGB ALEKSANDRA Trace Abnormal NEG [facility] Comment on above: Performed By: #### N UM #### [facility] ([id number]) [address] [place] [address] 98324 GLUCOSE ALEKSANDRA Negative Normal NEG [facility] Comment on above: Performed By: #### N UM #### [facility] ([id number]) [address] [place] [address] 32239 KETONES ALEKSANDRA Negative Normal NEG [facility] Comment on above: Performed By: #### N UM #### [facility] ([id number]) [address] [place] [address] 14742 LEUKOCYTE ESTERASE ALEKSANDRA Trace Abnormal NEG [facility] Comment on above: Performed By: #### N UM #### [facility] ([id number]) [address] [place] [address] 09457 NITRITE ALEKSANDRA Negative Normal NEG [facility] Comment on above: Performed By: #### N UM #### [facility] ([id number]) [address] [place] [address] 30387 PH ALEKSANDRA 6.5 Normal 5.0-8.5 [facility] Comment on above: Performed By: #### N UM #### [facility] ([id number]) [address] [place] [address] 44268 PROTEIN ALEKSANDRA Negative Normal NEG [facility] Comment on above: Performed By: #### N UM #### [facility] ([id number]) [address] [place] [address] 62956 SPECIFIC GRAVITY ALEKSANDRA 1.010 Normal 1.003-1.035 [facility] Comment on above: Performed By: #### N UM #### [facility] ([id number]) [address] [place] [address] 86480 UROBILINOGEN ALEKSANDRA 1.0 eu/dL Normal <1.1 [facility] Comment on above: Performed By: #### N UM #### [facility] ([id number]) [address] [place] [address] 29904 Hgb Electrophoresison 2023 Hgb Elect.Interp. Normal Hb electrophoretic pattern. HbA = 97.2% HbA2 = 2.8% Normal Values Normal [facility] Comment on above: Result Comment: (Hem oglobin A= 96.8 to 97.8% Hemoglobin A2= 2.2 to 3.2%) Performed By: #### F EBC, HGBE, B12FOL #### [address] [address] Investment Advisor: Severino Jacobson MD #### RETCT, CDP, FERI #### [facility] [address] [place] [address] Investment Advisor: Lukasz Puga MD Pathologist Review: ELECTRONICALLY SIGNED. AUTUMN MENDOZA M.D. Normal [facility] Comment on above: Performed By: #### F EBC, HGBE, B12FOL #### [address] [address] Investment Advisor: Severino Jacobson MD #### RETCT, CDP, FERI #### [facility] [address] [place] [address] Investment Advisor: Lukasz Puga MD Smear to Pathologiston 12-07 Smear to Pathologist ELECTRONICALLY SIGNED. MITA REGAN M.D. Normal [facility] Comment on above: Performed By: #### P ATH #### [address] [address] Investment Advisor: Severino Jacobson MD B12/Folate Panelon Cobalamin (Vitamin B12) [Mass/Vol] 717 pg/mL Normal 232-1245 [facility] Comment on above: Performed By: #### F EBC, HGBE, B12FOL #### [address] [address] Investment Advisor: Severino Jacobson MD #### [place] CDP, FERI #### [facility] [place] [address] Investment Advisor: Lukasz Puga MD Folic Acid 12.2 ng/mL Normal 4.8-24.2 [facility] Comment on above: Performed By: #### F EBC, HGBE, B12FOL #### [address] [address] Investment Advisor: Severino Jacobson MD #### [place], CDP, FERI #### [facility] [address] [place] [address] Investment Advisor: Lukasz Puga MD CBC with Diffon 12-05-2023 Abs. Atypical Lymphs 0.14 k/uL Normal [facility] Comment on above: Performed By: #### F EBC, HGBE, B12FOL #### [address] [address] Investment Advisor: Severino Jacobson MD #### [place] CDP, FERI #### [facility] [address] [place] [address] Investment Advisor: Lukasz Puga MD Abs. Basophil 0.07 k/uL Normal 0.0-0.2 [facility] Comment on above: Performed By: #### F EBC, HGBE, B12FOL #### [address] [address] Investment Advisor: Severino Jacobson MD #### [place], CDP, FERI #### [facility] [address] [place] [address] 7[address]45 Investment Advisor: Lukasz Puga MD Abs.Imm.Granulocyte 0.00 k/uL Normal 0.00-0.30 [facility] Comment on above: Performed By: #### F EBC, HGBE, B12FOL #### [address] [address] Investment Advisor: Severino Jacobson MD #### RETCT, CDP, FERI #### [facility] [address] [place] [address] 09930 Investment Advisor: Lukasz Puga MD Abs.Neutrophil (Seg) 2.80 k/uL Normal 1.8-7.7 [facility] Comment on above: Performed By: #### F EBC, HGBE, B12FOL #### [address] [address] Investment Advisor: Severino Jacobson MD #### RETCT, CDP, FERI #### [facility] [address] [place] [address] 42093 Investment Advisor: Lukasz Puga MD Atypical Lymphs 2 % Normal [facility] Comment on above: Performed By: #### F EBC, HGBE, B12FOL #### [address] [address] Investment Advisor: Severino Jacobson MD #### RETCT, CDP, FERI #### [facility] [address] [place] [address] 54704 Investment Advisor: Lukasz Puga MD Basophils/100 WBC (Bld) 1 % Normal [facility] Comment on above: Performed By: #### F EBC, HGBE, B12FOL #### [address] [address] Investment Advisor: Severino Jacobson MD #### RETCT, CDP, FERI #### [facility] [address] [place] [address]992 Investment Advisor: Lukasz Puga MD Eosinophils (Bld) [#/Vol] 0.07 10*3/uL Normal 0.0-0.4 [facility] Comment on above: Performed By: #### F EBC, HGBE, B12FOL #### [address] [address] Investment Advisor: Severino Jacobson MD #### RETCT, CDP, FERI #### [facility] [address] [place] [address] Investment Advisor: Lukasz Puga MD Eosinophils/100 WBC (Bld) 1 % Normal 1-4 [facility] Comment on above: Performed By: #### F EBC, HGBE, B12FOL #### [address] [address] Investment Advisor: Severino Jacobson MD #### RETCT, CDP, FERI #### [facility] [address] [place] [address] Investment Advisor: Lukasz Puga MD Immature granulocytes/100 WBC (Bld) 0 % Normal 0 [facility] Comment on above: Performed By: #### F EBC, HGBE, B12FOL #### [address] [address] Investment Advisor: Severino Jacobson MD #### RETCT, CDP, FERI #### [facility] [address] [place] [address] Investment Advisor: Lukasz Puga MD Lymphocytes (Bld) [#/Vol] 3.29 10*3/uL Normal 1.0-4.8 [facility] Comment on above: Performed By: #### F EBC, HGBE, B12FOL #### [address] [address] Investment Advisor: Severino Jacobson MD #### RETCT, CDP, FERI #### [facility] [address] [place] [address] Investment Advisor: Lukasz Puga MD Lymphocytes/100 WBC (Bld) 47 % High 24-44 [facility] Comment on above: Performed By: #### F EBC, HGBE, B12FOL #### [address] [address] Investment Advisor: Severino Jacobson MD #### RETCT, CDP, FERI #### [facility] [address] [place] [address] Investment Advisor: Lukasz Puga MD Monocytes (Bld) [#/Vol] 0.63 10*3/uL Normal 0.2-0.8 [facility] Comment on above: Performed By: #### F EBC, HGBE, B12FOL #### [address] [address] Investment Advisor: Severino Jacobson MD #### RETCT, CDP, FERI #### [facility] [address] [place] [address] Investment Advisor: Lukasz Puga MD Monocytes/100 WBC (Bld) 9 % High 1-7 [facility] Comment on above: Performed By: #### F EBC, HGBE, B12FOL #### [address] [address] Investment Advisor: Severino Jacobson MD #### RETCT, CDP, FERI #### [facility] [address] [place] [address] 80698 Investment Advisor: Lukasz Puga MD Neutrophil (Seg) 40 % Normal 36-66 [facility] Comment on above: Performed By: #### F EBC, HGBE, B12FOL #### [address] [address] Investment Advisor: Severino Jacobson MD #### RETCT, CDP, FERI #### [facility] [address] [place] [address] Investment Advisor: Lukasz Puga MD Erythrocyte distribution width (RBC) [Ratio] 12.6 % Normal 11.8-14.4 [facility] Comment on above: Performed By: #### F EBC, HGBE, B12FOL #### [address] [address] Investment Advisor: Severino Jacobson MD #### RETCT, CDP, FERI #### [facility] [address] [place] [address] Investment Advisor: Lukasz Puga MD Hematocrit (Bld) [Volume fraction] 31.0 % Low 36.3-47.1 [facility] Comment on above: Performed By: #### F EBC, HGBE, B12FOL #### [address] [address] Investment Advisor: Severino Jacobson MD #### RETCT, CDP, FERI #### [facility] [address] [place] [address] Investment Advisor: Lukasz Puga MD Hemoglobin (Bld) [Mass/Vol] 9.9 g/dL Low 11.9-15.1 [facility] Comment on above: Performed By: #### F EBC, HGBE, B12FOL #### [address] [address] Investment Advisor: Severino Jacobson MD #### RETCT, CDP, FERI #### [facility] [address] [place] [address] Investment Advisor: Lukasz Puga MD MCH (RBC) [Entitic mass] 29.8 pg Normal 25.2-33.5 [facility] Comment on above: Performed By: #### F EBC, HGBE, B12FOL #### [address] [address] Investment Advisor: Severino Jacobson MD #### RETCT CDP, FERI #### [facility] [address] [place] [address] Investment Advisor: Lukasz Puga MD MCHC (RBC) [Mass/Vol] 31.9 g/dL Normal 28.4-34.8 [facility] Comment on above: Performed By: #### F EBC, HGBE, B12FOL #### [address] [address] Investment Advisor: Severino Jacobson MD #### [place] CDP, FERI #### [facility] [address] [place] [address] Investment Advisor: Lukasz Puga MD MCV (RBC) [Entitic vol] 93.4 fL Normal 82.6-102.9 [facility] Comment on above: Performed By: #### F EBC, HGBE, B12FOL #### [address] [address] Investment Advisor: Severino Jacobson MD #### RETCT, CDP, FERI #### [facility] [address] [place] [address] Investment Advisor: Lukasz Puga MD NRBC Automated 0.0 per 100 WBC Normal 0.0 [facility] Comment on above: Performed By: #### F EBC, HGBE, B12FOL #### [address] [address] Investment Advisor: Severino Jacobson MD #### RETCT, CDP, FERI #### [facility] [address] [place] [address] Investment Advisor: Lukasz Puga MD Platelet mean volume (Bld) [Entitic vol] 9.9 fL Normal 8.1-13.5 [facility] Comment on above: Performed By: #### F EBC, HGBE, B12FOL #### [address] [address] Investment Advisor: Severino Jacobson MD #### RETCT, CDP, FERI #### [facility] [address] [place] [address] Investment Advisor: Lukasz Puga MD Platelets (Bld) [#/Vol] 296 10*3/uL Normal 138-453 [facility] Comment on above: Performed By: #### F EBC, HGBE, B12FOL #### [address] [address] Investment Advisor: Severino Jacobson MD #### [place], CDP, FERI #### [facility] [address] [place] [address] Investment Advisor: Lukasz Puga MD RBC (Bld) [#/Vol] 3.32 10*6/uL Low 3.95-5.11 [facility] Comment on above: Performed By: #### F EBC, HGBE, B12FOL #### [address] [address] Investment Advisor: Severino Jacobson MD #### RETCT, CDP, FERI #### [facility] [address] [place] [address] Investment Advisor: Lukasz Puga MD WBC (Bld) [#/Vol] 7.0 10*3/uL Normal 3.5-11.3 [facility] Comment on above: Performed By: #### F EBC, HGBE, B12FOL #### [address] [address] Investment Advisor: Severino Jacobson MD #### RETCT, CDP, FERI #### [facility] [address] [place] [address] Investment Advisor: Lukasz Puga MD Ferritinon 12-05-2023 Ferritin [Mass/Vol] 39 ng/mL Normal 13-150 [facility] Comment on above: Performed By: #### F EBC, HGBE, B12FOL #### [address] [address] Investment Advisor: Severino Jacobson MD #### RETCT, CDP, FERI #### [facility] [address] [place] [address] Investment Advisor: Lukasz Puga MD Iron Binding Cap.on 12-05-19 24 % Fe Saturation 14 % Low 20-55 [facility] Comment on above: Performed By: #### F EBC, HGBE, B12FOL #### [address] [address] Investment Advisor: Severino Jacobson MD #### RETCT, CDP, FERI #### [facility] [address] [place] [address] Investment Advisor: Lukasz Puga MD Iron [Mass/Vol] 42 ug/dL Normal 37-145 [facility] Comment on above: Performed By: #### F EBC, HGBE, B12FOL #### [address] [address] Investment Advisor: Severino Jacobson MD #### RETCT, CDP, FERI #### [facility] [address] [place] [address] Investment Advisor: Lukasz Puga MD Total Fe Binding Cap 310 ug/dL Normal 250-450 [facility] Comment on above: Performed By: #### F EBC, HGBE, B12FOL #### [address] [address] Investment Advisor: Severino Jacobson MD #### RETCT, CDP, FERI #### [facility] [address] [place] [address] Investment Advisor: Lukasz Puga MD Unbound Fe Bind Cap 268 ug/dL Normal 112-347 [facility] Comment on above: Performed By: #### F EBC, HGBE, B12FOL #### [address] [address] Investment Advisor: Severino Jacobson MD #### RETCT, CDP, FERI #### [facility] [address] [place] [address] Investment Advisor: Lukasz Puga MD Retic Counton 12-05-2023 Absolute Retic 0.062 M/uL Normal 0.030-0.080 [facility] Comment on above: Performed By: #### F EBC, HGBE, B12FOL #### [address] [address] Investment Advisor: Severino Jacobson MD #### RETCT, CDP, FERI #### [facility] [place] [address] Investment Advisor: Lukasz Puga MD IRF 9.6 % Normal 2.7-18.3 [facility] Comment on above: Performed By: #### F EBC, HGBE, B12FOL #### [address] [phone] Investment Advisor: Severino Jacobson MD #### RETCT, CDP, FERI #### [facility] [address] [place] [phone] Investment Advisor: Lukasz Puga MD Retic Count 1.8 % Normal 0.5-1.9 [facility] Comment on above: Performed By: #### F EBC, HGBE, B12FOL #### [address] [address] Investment Advisor: Severino Jacobson MD #### RETCT, CDP, FERI #### [facility] [address] [place] [address] [phone] Investment Advisor: Lukasz Puga MD Retic Hemoglobin 28.8 pg Normal 28.2-35.7 [facility] Comment on above: Performed By: #### F EBC, HGBE, B12FOL #### [address] [phone] Investment Advisor: Severino Jacobson MD #### RETCT, CDP, FERI #### [facility] [address] [place] [address] [phone] Investment Advisor: Lukasz Puga MD Surgical Pathology Reporton 12-05-2023 Surgical Pathology Report (NOTE) [id number] [facility] CONSULTING PATHOLOGISTS [facility] ANATOMIC PATHOLOGY [address] [place] [phone] SURGICAL PATHOLOGY CONSULTATION Patient Name: HOMERO DE LEON MR#: [id number] Specimen #[id number] Procedures/Addenda PERIPHERAL BLOOD REPORT Date Ordered: 12/07/2023 Status: Signed Out Date Complete: 12/08/2023 By: Mita Regan M.D. Date Reported: 12/08/2023 INTERPRETATION Peripheral blood: - Normocytic normochromic anemia with unremarkable red blood cell morphology. - White blood cells with normal morphology. No blasts. - Platelets with unremarkable morphology. RESULTS-COMMENTS PERIPHERAL BLOOD STUDY CBC: Please see the electronic health record for CBC parameters ([id number], 12/05/2023, 13:35). PLATELETS: Platelets show normal morphology. LEUKOCYTES: White blood cells show normal morphology. No atypical lymphocytes. No dysplasia. There are no blasts. ERYTHROCYTES: Normocytic normochromic anemia. Red blood cells show normal morphology. Note: The electronic health record is reviewed. Mita Regan M.D. Source: A: Peripheral Blood Normal [facility] CBC with Diffon 11-06-2023 Abs. Basophil 0.04 k/uL Normal 0.00-0.20 [facility] Comment on above: Performed By: #### C DP CP, LIPRF #### [facility] [employer] [address] [place] [address] Investment Advisor: Severino Jacobson MD Abs.Imm.Granulocyte <0.03 Normal 0.00-0.30 [facility] Comment on above: Performed By: #### C DP, CP, LIPRF #### [facility] [employer] [address] [place] [address] Investment Advisor: Severino Jacobson MD Abs.Neutrophil (Seg) 4.76 k/uL Normal 1.50-8.10 [facility] Comment on above: Performed By: #### C DP, CP, LIPRF #### [facility] [employer] [address] [place] [address] Investment Advisor: Severino Jacobson MD Basophils/100 WBC (Bld) 1 % Normal 0-2 [facility] Comment on above: Performed By: #### C DP, CP, LIPRF #### [facility] [address] [place] [address] Investment Advisor: Severino Jacobson MD Eosinophils (Bld) [#/Vol] 0.24 10*3/uL Normal 0.00-0.44 [facility] Comment on above: Performed By: #### C DP, CP, LIPRF #### [address] [address] Investment Advisor: Severino Jacobson MD Eosinophils/100 WBC (Bld) 3 % Normal 1-4 [facility] Comment on above: Performed By: #### C DP, CP, LIPRF #### [address] [address] Investment Advisor: Severino Jacobson MD Erythrocyte distribution width (RBC) [Ratio] 12.3 % Normal 11.8-14.4 [facility] Comment on above: Performed By: #### C DP, CP, LIPRF #### [address] [address] Investment Advisor: Severino Jacobson MD Hematocrit (Bld) [Volume fraction] 35.5 % Low 36.3-47.1 [facility] Comment on above: Performed By: #### C DP, CP, LIPRF #### [address] [address] Investment Advisor: Severino Jacobson MD Hemoglobin (Bld) [Mass/Vol] 11.2 g/dL Low 11.9-15.1 [facility] Comment on above: Performed By: #### C DP, CP, LIPRF #### [address] [address] Investment Advisor: Severino Jacobson MD Immature granulocytes/100 WBC (Bld) 0 % Normal 0 [facility] Comment on above: Performed By: #### C DP, CP, LIPRF #### [address] [address] Investment Advisor: Severino Jacobson MD Lymphocytes (Bld) [#/Vol] 2.47 10*3/uL Normal 1.10-3.70 [facility] Comment on above: Performed By: #### C DP, CP, LIPRF #### [address] [place] [address] Investment Advisor: Severino Jacobson MD Lymphocytes/100 WBC (Bld) 31 % Normal 24-43 [facility] Comment on above: Performed By: #### C DP, CP, LIPRF #### [address] [address] Investment Advisor: Severino Jacobson MD MCH (RBC) [Entitic mass] 29.6 pg Normal 25.2-33.5 [facility] Comment on above: Performed By: #### C DP, CP, LIPRF #### [place] [address] Investment Advisor: Severino Jacobson MD MCHC (RBC) [Mass/Vol] 31.5 g/dL Normal 28.4-34.8 [facility] Comment on above: Performed By: #### C DP, CP, LIPRF #### [place] [address] Investment Advisor: Severino Jacobson MD MCV (RBC) [Entitic vol] 93.9 fL Normal 82.6-102.9 [facility] Comment on above: Performed By: #### C DP, CP, LIPRF #### [place] [address] Investment Advisor: Severino Jacobson MD Monocytes (Bld) [#/Vol] 0.56 10*3/uL Normal 0.10-1.20 [facility] Comment on above: Performed By: #### C DP, CP, LIPRF #### [place] [address] Investment Advisor: Severino Jacobson MD Monocytes/100 WBC (Bld) 7 % Normal 3-12 [facility] Comment on above: Performed By: #### C DP, CP, LIPRF #### [place] [address] Investment Advisor: Severino Jacobson MD Neutrophil (Seg) 58 % Normal 36-65 [facility] Comment on above: Performed By: #### C DP, CP, LIPRF #### [address] [address] Investment Advisor: Severino Jacobson MD NRBC Automated 0.0 per 100 WBC Normal 0.0 [facility] Comment on above: Performed By: #### C DP, CP, LIPRF #### [address] [address] Investment Advisor: Severino Jacobson MD Platelet mean volume (Bld) [Entitic vol] 10.5 fL Normal 8.1-13.5 [facility] Comment on above: Performed By: #### C DP, CP, LIPRF #### [address] [address] Investment Advisor: Severino Jacobson MD Platelets (Bld) [#/Vol] 501 10*3/uL High 138-453 [facility] Comment on above: Performed By: #### C DP, CP, LIPRF #### [address] [address] Investment Advisor: Severino Jacobson MD RBC (Bld) [#/Vol] 3.78 10*6/uL Low 3.95-5.11 [facility] Comment on above: Performed By: #### C DP, CP, LIPRF #### [address] [address] Investment Advisor: Severino Jacobson MD WBC (Bld) [#/Vol] 8.1 10*3/uL Normal 3.5-11.3 [facility] Comment on above: Performed By: #### C DP, CP, LIPRF #### [address] [address] Investment Advisor: Severino Jacobson MD Comp Metabolic Profon 2023 Albumin [Mass/Vol] 4.8 g/dL Normal 3.5-5.2 [facility] Comment on above: Performed By: #### C DP, CP, LIPRF #### [address] [address] Investment Advisor: Severino Jacobson MD Albumin/Glob Ratio 2.0 Normal 1.0-2.5 [facility] Comment on above: Performed By: #### C DP, CP, LIPRF #### [address] [address] Investment Advisor: Severino Jacobson MD Alkaline Phos 43 U/L Normal 35-104 [facility] Comment on above: Performed By: #### C DP, CP, LIPRF #### [address] [address] Investment Advisor: Severino Jacobson MD ALT [Catalytic activity/Vol] 14 U/L Normal 10-35 [facility] Comment on above: Performed By: #### C DP, CP, LIPRF #### [address] [address] Investment Advisor: Severino Jacobson MD Anion gap [Moles/Vol] 10 mmol/L Normal 9-16 [facility] Comment on above: Performed By: #### C DP, CP, LIPRF #### [facility] [employer] [address] [place] [address] Investment Advisor: Severino Jacobson MD AST [Catalytic activity/Vol] 27 U/L Normal 10-35 [facility] Comment on above: Performed By: #### C DP, CP, LIPRF #### [facility] [employer] [address] [place] [address] Investment Advisor: Severino Jacobson MD Bilirubin [Mass/Vol] 0.6 mg/dL Normal 0.00-1.20 [facility] Comment on above: Performed By: #### C DP CP, LIPRF #### [address] [address] Investment Advisor: Severino Jacobson MD Calcium [Mass/Vol] 9.5 mg/dL Normal 8.6-10.4 [facility] Comment on above: Performed By: #### C DP, CP, LIPRF #### [place] [address] Investment Advisor: Severino Jacobson MD Chloride [Moles/Vol] 103 mmol/L Normal 98-107 [facility] Comment on above: Performed By: #### C DP CP, LIPRF #### [address] [address] Investment Advisor: Severino Jacobson MD CO2 [Moles/Vol] 26 mmol/L Normal 20-31 [facility] Comment on above: Performed By: #### C DYLLAN CP, LIPRF #### [address] [address] Investment Advisor: Severino Jacobson MD Creatinine [Mass/Vol] 0.8 mg/dL Normal 0.50-0.90 [facility] Comment on above: Performed By: #### C DP CP, LIPRF #### [place] [address] Investment Advisor: Severino Jacobson MD GFR/1.73 sq M.predicted among non-blacks MDRD (S/P/Bld) [Vol rate/Area] mL/min/{1.73_m2} Normal >60 [facility] Comment on above: Result Comment: These results [...] By: #### C MEGHA MIJARES, LIPRF #### [address] [address] Investment Advisor: Severino Jacobson MD Glucose [Mass/Vol] 90 mg/dL Normal 74-99 [facility] Comment on above: Performed By: #### C DYLLAN CP, LIPRF #### [address] [address] Investment Advisor: Severino Jacobson MD Potassium [Moles/Vol] 3.9 mmol/L Normal 3.7-5.3 [facility] Comment on above: Performed By: #### C MEGHA MIJARES, LIPRF #### [address] [address] Investment Advisor: Severino Jacobson MD Protein [Mass/Vol] 7.7 g/dL Normal 6.6-8.7 [facility] Comment on above: Performed By: #### C MEGHA MIJARES, LIPRF #### [address] [address] Investment Advisor: Severino Jacobson MD Sodium [Moles/Vol] 139 mmol/L Normal 136-145 [facility] Comment on above: Performed By: #### C DYLLAN CP, LIPRF #### [address] [address] Investment Advisor: Severino Jacobson MD Urea nitrogen [Mass/Vol] 12 mg/dL Normal 6-20 [facility] Comment on above: Performed By: #### C DYLLAN CP, LIPRF #### [address] [address] Investment Advisor: Severino Jacobson MD Lipid Prof, Fastingon 2023 Cholesterol [Mass/Vol] 178 mg/dL Normal 0-199 [facility] Comment on above: Result Comment: Cholesterol Guidelines: <200 Desirable 200-240 Borderline >240 Undesirable Performed By: #### C DP, CP, LIPRF #### [address] [address] Investment Advisor: Severino Jacobson MD Cholesterol in HDL [Mass/Vol] 50 mg/dL Normal >40 [facility] Comment on above: Result Comment: HDL Guidelines: <40 Undesirable 40-59 Borderline >59 Desirable Performed By: #### C DP, CP, LIPRF #### [address] [address] Investment Advisor: Severino Jacobson MD Cholesterol in LDL [Mass/Vol] 115 mg/dL High 0-100 [facility] Comment on above: Result Comment: LDL Guidelines: <100 Desirable 100-129 Near to/above Desirable 130-159 Borderline >159 Undesirable Direct (measured) LDL and calculated LDL are not interchangeable tests. Performed By: #### C DP, CP, LIPRF #### [address] [address] Investment Advisor: Severino Jacobson MD Cholesterol in VLDL [Mass/Vol] 13 mg/dL Normal [facility] Comment on above: Performed By: #### C DP, CP, LIPRF #### [address] [address] Investment Advisor: Severino Jacobson MD Cholesterol.total/Chol esterol in HDL [Mass ratio] 4.0 {ratio} Normal [facility] Comment on above: Performed By: #### C DP, CP, LIPRF #### [address] [address] Investment Advisor: Severino Jacobson MD Triglyceride,Fasting 64 mg/dL Normal 0-149 [facility] Comment on above: Result Comment: Triglyceride Guidelines: <150 Desirable 150-199 Borderline 200-499 High >499 Very high Based on AHA Guidelines for fasting triglyceride, February 2012. Performed By: #### C DP, CP, LIPRF #### [address] [address] Investment Advisor: Severino Jacobson MD CBC with Diffon 09-02-2023 Abs. Basophil <0.03 Normal 0.00-0.20 [facility] Comment on above: Performed By: #### C DP, LIPRF, CP #### [place] [address] Investment Advisor: Severino Jacobson MD Abs.Imm.Granulocyte <0.03 Normal 0.00-0.30 [facility] Comment on above: Performed By: #### C DP, LIPRF, CP #### [place] [address] Investment Advisor: Severino Jacobson MD Abs.Neutrophil (Seg) 3.88 k/uL Normal 1.50-8.10 [facility] Comment on above: Performed By: #### C DP, LIPRF, CP #### [facility] [employer] [address] [place] [address] Investment Advisor: Severino Jacobson MD Basophils/100 WBC (Bld) 0 % Normal 0-2 [facility] Comment on above: Performed By: #### C DP, LIPRF, CP #### [place] [address] Investment Advisor: Severino Jacobson MD Eosinophils (Bld) [#/Vol] 0.18 10*3/uL Normal 0.00-0.44 [facility] Comment on above: Performed By: #### C DP, LIPRF, CP #### [facility] [employer] [address] [place] [address] Investment Advisor: Severino Jacobson MD Eosinophils/100 WBC (Bld) 3 % Normal 1-4 [facility] Comment on above: Performed By: #### C DP, LIPRF, CP #### [address] [address] Investment Advisor: Severino Jacobson MD Erythrocyte distribution width (RBC) [Ratio] 12.6 % Normal 11.8-14.4 [facility] Comment on above: Performed By: #### C FANNIE MIJARES, CP #### [address] [address] Investment Advisor: Severino Jacobson MD Hematocrit (Bld) [Volume fraction] 34.6 % Low 36.3-47.1 [facility] Comment on above: Performed By: #### C FANNIE MIJARES, CP #### [address] [address] Investment Advisor: Severino Jacobson MD Hemoglobin (Bld) [Mass/Vol] 10.8 g/dL Low 11.9-15.1 [facility] Comment on above: Performed By: #### C DYLLAN LIPRF, CP #### [address] [address] Investment Advisor: Severino Jacobson MD Immature granulocytes/100 WBC (Bld) 0 % Normal 0 [facility] Comment on above: Performed By: #### C FANNIE MIJARES, CP #### [address] [address] Investment Advisor: Severino Jacobson MD Lymphocytes (Bld) [#/Vol] 2.64 10*3/uL Normal 1.10-3.70 [facility] Comment on above: Performed By: #### C FANNIE MIJARES, CP #### [address] [address] Investment Advisor: Severino Jacobson MD Lymphocytes/100 WBC (Bld) 37 % Normal 24-43 [facility] Comment on above: Performed By: #### C DP LIPRF, CP #### [address] [address] Investment Advisor: Severino aJcobson MD MCH (RBC) [Entitic mass] 29.7 pg Normal 25.2-33.5 [facility] Comment on above: Performed By: #### C DP, LIPRF, CP #### [address] [address] Investment Advisor: Severino Jacobson MD MCHC (RBC) [Mass/Vol] 31.2 g/dL Normal 28.4-34.8 [facility] Comment on above: Performed By: #### C DP, LIPRF, CP #### [address] [address] Investment Advisor: Severino Jacobson MD MCV (RBC) [Entitic vol] 95.1 fL Normal 82.6-102.9 [facility] Comment on above: Performed By: #### C DP, LIPRF, CP #### [address] [address] Investment Advisor: Severino Jacobson MD Monocytes (Bld) [#/Vol] 0.41 10*3/uL Normal 0.10-1.20 [facility] Comment on above: Performed By: #### C DP, LIPRF, CP #### [address] [address] Investment Advisor: Severino Jacobson MD Monocytes/100 WBC (Bld) 6 % Normal 3-12 [facility] Comment on above: Performed By: #### C DP, LIPRF, CP #### [address] [address] Investment Advisor: Severino Jacobson MD Neutrophil (Seg) 54 % Normal 36-65 [facility] Comment on above: Performed By: #### C DP, LIPRF, CP #### [address] [address] Investment Advisor: Severino Jacobson MD NRBC Automated 0.0 per 100 WBC Normal 0.0 [facility] Comment on above: Performed By: #### C FANNIE MIJARES, CP #### [address] [address] Investment Advisor: Severino Jacobson MD Platelet mean volume (Bld) [Entitic vol] 10.7 fL Normal 8.1-13.5 [facility] Comment on above: Performed By: #### C DP LIPRF, CP #### [address] [address] Investment Advisor: Severino Jacobson MD Platelets (Bld) [#/Vol] 460 10*3/uL High 138-453 [facility] Comment on above: Performed By: #### C FANNIE MIJARES, CP #### [address] [address] Investment Advisor: Severino Jacobson MD RBC (Bld) [#/Vol] 3.64 10*6/uL Low 3.95-5.11 [facility] Comment on above: Performed By: #### C FANNIE MIJARES, CP #### [address] [address] Investment Advisor: Severino Jacobson MD WBC (Bld) [#/Vol] 7.2 10*3/uL Normal 3.5-11.3 [facility] Comment on above: Performed By: #### C DP LIPRF, CP #### [address] [address] Investment Advisor: Severino Jacobson MD Comp Metabolic Profon 2023 Albumin [Mass/Vol] 4.4 g/dL Normal 3.5-5.2 [facility] Comment on above: Performed By: #### C DP LIPRF, CP #### [address] [address] Investment Advisor: Severino Jacobson MD Albumin/Glob Ratio 2.0 Normal 1.0-2.5 [facility] Comment on above: Performed By: #### C DYLLAN LIPRF, CP #### [address] [address] Investment Advisor: Severino Jacobson MD Alkaline Phos 35 U/L Normal 35-104 [facility] Comment on above: Performed By: #### C DP LIPRF, CP #### [address] [address] Investment Advisor: Severino Jacobson MD ALT [Catalytic activity/Vol] 12 U/L Normal 10-35 [facility] Comment on above: Performed By: #### C DYLLAN LIPRF, CP #### [address] [address] Investment Advisor: Severino Jacobson MD Anion gap [Moles/Vol] 9 mmol/L Normal 9-16 [facility] Comment on above: Performed By: #### C FANNIE MIJARES, CP #### [address] [address] Investment Advisor: Severino Jacobson MD AST [Catalytic activity/Vol] 25 U/L Normal 10-35 [facility] Comment on above: Performed By: #### C DYLLAN LIPRF, CP #### [address] [address] Investment Advisor: Severino Jacobson MD Bilirubin [Mass/Vol] 0.6 mg/dL Normal 0.00-1.20 [facility] Comment on above: Performed By: #### C DP LIPRF, CP #### [facility] [employer] [address] [place] [address] Investment Advisor: Severino Jacobson MD Calcium [Mass/Vol] 8.9 mg/dL Normal 8.6-10.4 [facility] Comment on above: Performed By: #### C FANNIE MIJARES, CP #### [address] [address] Investment Advisor: Severino Jacobson MD Chloride [Moles/Vol] 107 mmol/L Normal 98-107 [facility] Comment on above: Performed By: #### C FANNIE MIJARES, CP #### [address] [address] Investment Advisor: Severino Jacobson MD CO2 [Moles/Vol] 24 mmol/L Normal 20-31 [facility] Comment on above: Performed By: #### C FANNIE MIJARES, CP #### [address] [address] Investment Advisor: Severino Jacobson MD Creatinine [Mass/Vol] 0.7 mg/dL Normal 0.50-0.90 [facility] Comment on above: Performed By: #### C FANNIE MIJARES, CP #### [address] [address] Investment Advisor: Severino Jacobson MD GFR/1.73 sq M.predicted among non-blacks MDRD (S/P/Bld) [Vol rate/Area] mL/min/{1.73_m2} Normal >60 [facility] Comment on above: Result Comment: These results [...] By: #### C FANNIE MIJARES, CP #### [address] [address] Investment Advisor: Severino Jacobson MD Glucose [Mass/Vol] 97 mg/dL Normal 74-99 [facility] Comment on above: Performed By: #### C DYLLAN LIPKOURTNEY, CP #### [facility] [employer] [address] [place] [address] Investment Advisor: Severino Jacobson MD Potassium [Moles/Vol] 4.0 mmol/L Normal 3.7-5.3 [facility] Comment on above: Performed By: #### C DYLLAN LIPRF, CP #### [address] [address] Investment Advisor: Severino Jacobson MD Protein [Mass/Vol] 7.3 g/dL Normal 6.6-8.7 [facility] Comment on above: Performed By: #### C DYLLAN LIPRF, CP #### [address] [address] Investment Advisor: Severino Jacobson MD Sodium [Moles/Vol] 140 mmol/L Normal 136-145 [facility] Comment on above: Performed By: #### C FANNIE MIJARES, CP #### [address] [address] Investment Advisor: Severino Jacobson MD Urea nitrogen [Mass/Vol] 12 mg/dL Normal 6-20 [facility] Comment on above: Performed By: #### C EKTA MIJARESRF, CP #### [address] [address] Investment Advisor: Severino Jacobson MD Lipid Prof, Fastingon 2023 Cholesterol [Mass/Vol] 164 mg/dL Normal 0-199 [facility] Comment on above: Result Comment: Cholesterol Guidelines: <200 Desirable 200-240 Borderline >240 Undesirable Performed By: #### C DYLLAN LIPRF, CP #### [address] [address] Investment Advisor: Severino Jacobson MD Cholesterol in HDL [Mass/Vol] 52 mg/dL Normal >40 [facility] Comment on above: Result Comment: HDL Guidelines: <40 Undesirable 40-59 Borderline >59 Desirable Performed By: #### C DYLLAN LIPRF, CP #### [address] [address] Investment Advisor: Severino Jacobson MD Cholesterol in LDL [Mass/Vol] 102 mg/dL High 0-100 [facility] Comment on above: Result Comment: LDL Guidelines: <100 Desirable 100-129 Near to/above Desirable 130-159 Borderline >159 Undesirable Direct (measured) LDL and calculated LDL are not interchangeable tests. Performed By: #### C DYLLAN LIPRF, CP #### [address] [address] Investment Advisor: Severino Jacobson MD Cholesterol in VLDL [Mass/Vol] 10 mg/dL Normal [facility] Comment on above: Performed By: #### C DYLLAN LIPRF, CP #### [address] [address] Investment Advisor: Severino Jacobson MD Cholesterol.total/Chol esterol in HDL [Mass ratio] 3.0 {ratio} Normal [facility] Comment on above: Performed By: #### C DYLLAN LIPRF, CP #### [address] [address] Investment Advisor: Severino Jacobson MD Triglyceride,Fasting 49 mg/dL Normal 0-149 [facility] Comment on above: Result Comment: Triglyceride Guidelines: <150 Desirable 150-199 Borderline 200-499 High >499 Very high Based on AHA Guidelines for fasting triglyceride, February 2012. Performed By: #### C DP LIPRF, CP #### [address] [address] Investment Advisor: Severino Jacobson MD SARS/FLU A+B/RSV by NAAT/[facility] 07-17-2023 SARS/FLU A+B/RSV by NAAT/Molecular FLU A [...] operators who are performing tests using either [employer] or [employer] systems and is limited to laboratories that [...] repeat. Fact Sheet for Healthcare Providers: https://www.fda.gov/ media/006726/downloa d Fact Sheet for Patients: https://www.fda.gov/ media/224281/downloa d [facility] Comment on above: Performed By: #### C OVFLR #### [facility] ([id number]) [address] [place] [id number] QuantiFERON TBon 04-14-2023 Quanti Americo minus NIL >10.00 Normal [facility] Comment on above: Performed By: #### A QF #### [facility] [address] [place] [address] Investment Advisor: Tai Loepz MD Quanti TB Gold Plus Negative Normal Negative [facility] Comment on above: Result Comment: (NOT E) [...] Mycobacterium tuberculosis Infection --- [place], 2010 (http://www.cdc.gov/mmwr/preview/mmwrhtml/sp8560h9.htm), for more information concerning test performance in low-prevalence populations and use in occupational screening. Performed By: #### A QF #### [facility] [address] [place] [address] Investment Advisor: Tai Lopez MD Quanti TB1 minus NIL 0.10 IU/mL Normal 0.00-0.34 [facility] Comment on above: Performed By: #### A QF #### [facility] [address] [place] [address] Investment Advisor: Tai Loepz MD Quanti TB2 minus NIL 0.10 IU/mL Normal 0.00-0.34 [facility] Comment on above: Performed By: #### A QF #### [facility] [address] [place], [place] [id number] Investment Advisor: Tai Lopez MD QuantiFERON NIL 0.03 IU/mL Normal [facility] Comment on above: Result Comment: (NOT E) Performed By: [place] [id number] Cafeteria Worker: Royal Banda MD, PhD CLIA Number: [id number] Performed By: #### A QF #### [facility] [address] [place], [place] [id number] Investment Advisor: Tai Lopez MD CBC with Diffon 04-11-2023 Abs. Basophil 0.05 k/uL Normal 0.00-0.20 [facility] Comment on above: Performed By: #### L IPRF, CDP, PHEP, CP, HIVCMB #### [place] [address] Investment Advisor: Severino Jacobson MD Abs.Imm.Granulocyte 0.03 k/uL Normal 0.00-0.30 [facility] Comment on above: Performed By: #### L IPRF, CDP, PHEP, CP, HIVCMB #### [place] [address] Investment Advisor: Severino Jacobson MD Abs.Neutrophil (Seg) 4.20 k/uL Normal 1.50-8.10 [facility] Comment on above: Performed By: #### L IPRF, CDP, PHEP, CP, HIVCMB #### [place] [address] Investment Advisor: Severino Jacobson MD Basophils/100 WBC (Bld) 1 % Normal 0-2 [facility] Comment on above: Performed By: #### L IPRF, CDP, PHEP, CP, HIVCMB #### [address] [address] Investment Advisor: Severino Jacobson MD Eosinophils (Bld) [#/Vol] 0.36 10*3/uL Normal 0.00-0.44 [facility] Comment on above: Performed By: #### L IPRF, CDP, PHEP, CP, HIVCMB #### [place] [address] Investment Advisor: Severino Jacobson MD Eosinophils/100 WBC (Bld) 5 % High 1-4 [facility] Comment on above: Performed By: #### L IPRF, CDP, PHEP, CP, HIVCMB #### [place] [address] Investment Advisor: Severino Jacobson MD Erythrocyte distribution width (RBC) [Ratio] 11.6 % Low 11.8-14.4 [facility] Comment on above: Performed By: #### L IPRF, CDP, PHEP, CP, HIVCMB #### [place] [address] Investment Advisor: Severino Jacobson MD Hematocrit (Bld) [Volume fraction] 34.3 % Low 36.3-47.1 [facility] Comment on above: Performed By: #### L IPRF, CDP, PHEP, CP, HIVCMB #### [place] [address] Investment Advisor: Severino Jacobson MD Hemoglobin (Bld) [Mass/Vol] 10.9 g/dL Low 11.9-15.1 [facility] Comment on above: Performed By: #### L IPRF, CDP, PHEP, CP, HIVCMB #### [address] [address] Investment Advisor: Severino Jacobson MD Immature granulocytes/100 WBC (Bld) 0 % Normal 0 [facility] Comment on above: Performed By: #### L IPRF, CDP, PHEP, CP, HIVCMB #### [address] [address] Investment Advisor: Severino Jacobson MD Lymphocytes (Bld) [#/Vol] 2.55 10*3/uL Normal 1.10-3.70 [facility] Comment on above: Performed By: #### L IPRF, CDP, PHEP, CP, HIVCMB #### [address] [address] Investment Advisor: Severino Jacobson MD Lymphocytes/100 WBC (Bld) 33 % Normal 24-43 [facility] Comment on above: Performed By: #### L IPRF, CDP, PHEP, CP, HIVCMB #### [place] [address] Investment Advisor: Severino Jacobson MD MCH (RBC) [Entitic mass] 30.1 pg Normal 25.2-33.5 [facility] Comment on above: Performed By: #### L IPRF, CDP, PHEP, CP, HIVCMB #### [address] [address] Investment Advisor: Severino Jacobson MD MCHC (RBC) [Mass/Vol] 31.8 g/dL Normal 28.4-34.8 [facility] Comment on above: Performed By: #### L IPRF, CDP, PHEP, CP, HIVCMB #### [place] [address] Investment Advisor: Severino Jacobson MD MCV (RBC) [Entitic vol] 94.8 fL Normal 82.6-102.9 [facility] Comment on above: Performed By: #### L IPRF, CDP, PHEP, CP, HIVCMB #### [address] [phone] Investment Advisor: Severino Jacobson MD Monocytes (Bld) [#/Vol] 0.55 10*3/uL Normal 0.10-1.20 [facility] Comment on above: Performed By: #### L IPRF, CDP, PHEP, CP, HIVCMB #### [address] [address] Investment Advisor: Severino Jacobson MD Monocytes/100 WBC (Bld) 7 % Normal 3-12 [facility] Comment on above: Performed By: #### L IPRF, CDP, PHEP, CP, HIVCMB #### [address] [address] Investment Advisor: Severino Jacobson MD Neutrophil (Seg) 54 % Normal 36-65 [facility] Comment on above: Performed By: #### L IPRF, CDP, PHEP, CP, HIVCMB #### [address] [address] Investment Advisor: Severino Jacobson MD NRBC Automated 0.0 per 100 WBC Normal 0.0 [facility] Comment on above: Performed By: #### L IPRF, CDP, PHEP, CP, HIVCMB #### [address] [phone] Investment Advisor: Severino Jacobson MD Platelet mean volume (Bld) [Entitic vol] 11.0 fL Normal 8.1-13.5 [facility] Comment on above: Performed By: #### L IPRF, CDP, PHEP, CP, HIVCMB #### [address] [phone] Investment Advisor: Severino Jacobson MD Platelets (Bld) [#/Vol] 382 10*3/uL Normal 138-453 [facility] Comment on above: Performed By: #### L IPRF, CDP, PHEP, CP, HIVCMB #### [facility] [employer] [address] [place] [phone] Investment Advisor: Severino Jacobson MD RBC (Bld) [#/Vol] 3.62 10*6/uL Low 3.95-5.11 [facility] Comment on above: Performed By: #### L IPRF, CDP, PHEP, CP, HIVCMB #### [facility] [employer] [address] [place] [phone] Investment Advisor: Severino Jacobson MD WBC (Bld) [#/Vol] 7.7 10*3/uL Normal 3.5-11.3 [facility] Comment on above: Performed By: #### L IPRF, CDP, PHEP, CP, HIVCMB #### [facility] [employer] [address] [place] [phone] Investment Advisor: Severino Jacobson MD Comp Metabolic Profon 2022 Albumin [Mass/Vol] 4.4 g/dL Normal 3.5-5.2 [facility] Comment on above: Performed By: #### L IPRF, CDP, PHEP, CP, HIVCMB #### [facility] [employer] [address] [place] [phone] Investment Advisor: Severino Jacobson MD Albumin/Glob Ratio 2.0 Normal 1.0-2.5 [facility] Comment on above: Performed By: #### L IPRF, CDP, PHEP, CP, HIVCMB #### [facility] [employer] [address] [place] [phone] Investment Advisor: Severino Jacobson MD Alkaline Phos 39 U/L Normal 35-104 [facility] Comment on above: Performed By: #### L IPRF, CDP, PHEP, CP, HIVCMB #### [facility] [employer] [address] [place] [phone] Investment Advisor: Severino Jacobson MD ALT [Catalytic activity/Vol] 10 U/L Normal 10-35 [facility] Comment on above: Performed By: #### L IPRF, CDP, PHEP, CP, HIVCMB #### [address] [address] Investment Advisor: Severino Jacobson MD Anion gap [Moles/Vol] 9 mmol/L Normal 9-16 [facility] Comment on above: Performed By: #### L IPRF, CDP, PHEP, CP, HIVCMB #### [address] [phone] Investment Advisor: Severino Jacobson MD AST [Catalytic activity/Vol] 22 U/L Normal 10-35 [facility] Comment on above: Performed By: #### L IPRF, CDP, PHEP, CP, HIVCMB #### [address] [phone] Investment Advisor: Severino Jacobson MD Bilirubin [Mass/Vol] 0.3 mg/dL Normal 0.00-1.20 [facility] Comment on above: Performed By: #### L IPRF, CDP, PHEP, CP, HIVCMB #### [address] [address] Investment Advisor: Severino Jacobson MD Calcium [Mass/Vol] 9.3 mg/dL Normal 8.6-10.4 [facility] Comment on above: Performed By: #### L IPRF, CDP, PHEP, CP, HIVCMB #### [facility] [employer] [address] [place] [phone] Investment Advisor: Severino Jacobson MD Chloride [Moles/Vol] 104 mmol/L Normal 98-107 [facility] Comment on above: Performed By: #### L IPRF, CDP, PHEP, CP, HIVCMB #### [facility] [employer] [address] [place] [phone] Investment Advisor: Severino Jacobson MD CO2 [Moles/Vol] 27 mmol/L Normal 20-31 [facility] Comment on above: Performed By: #### L IPRF, CDP, PHEP, CP, HIVCMB #### [address] [phone] Investment Advisor: Severino Jacobson MD Creatinine [Mass/Vol] 0.7 mg/dL Normal 0.50-0.90 [facility] Comment on above: Performed By: #### L IPRF, CDP, PHEP, CP, HIVCMB #### [address] [phone] Investment Advisor: Severino Jacobson MD GFR/1.73 sq M.predicted among non-blacks MDRD (S/P/Bld) [Vol rate/Area] mL/min/{1.73_m2} Normal >60 [facility] Comment on above: Result Comment: These results [...] L IPRF, CDP, PHEP, CP, HIVCMB #### [address] [phone] Investment Advisor: Severino Jacobson MD Glucose [Mass/Vol] 82 mg/dL Normal 74-99 [facility] Comment on above: Performed By: #### L IPRF, CDP, PHEP, CP, HIVCMB #### [address] [phone] Investment Advisor: Severino Jacobson MD Potassium [Moles/Vol] 3.8 mmol/L Normal 3.7-5.3 [facility] Comment on above: Performed By: #### L IPRF, CDP, PHEP, CP, HIVCMB #### [facility] [employer] [address] [place] [phone] Investment Advisor: Severino Jacobson MD Protein [Mass/Vol] 7.2 g/dL Normal 6.6-8.7 [facility] Comment on above: Performed By: #### L IPRF, CDP, PHEP, CP, HIVCMB #### [facility] [address] [place] [phone] Investment Advisor: Severino Jacobson MD Sodium [Moles/Vol] 140 mmol/L Normal 136-145 [facility] Comment on above: Performed By: #### L IPRF, CDP, PHEP, CP, HIVCMB #### [facility] [employer] [address] [place] [phone] Investment Advisor: Severino Jacobson MD Urea nitrogen [Mass/Vol] 14 mg/dL Normal 6-20 [facility] Comment on above: Performed By: #### L IPRF, CDP, PHEP, CP, HIVCMB #### [facility] [employer] [address] [place] [phone] Investment Advisor: Severino aJcobson MD HIV Ag/Abon 04-11-2023 HIV Ag/Ab Non-Reactive Normal NR [facility] Comment on above: Result Comment: No l aboratory evidence of HIV infection. If acute HIV infection is suspected, consider testing for HIV-1 RNA. Performed By: #### C DP, LIPRF, CP #### [facility] [employer] [address] [place] [phone] Investment Advisor: Severino Jacobson MD Hepatitis Acute [facility] 04-11 Hep A Ab,IgM Non-Reactive Normal NR [facility] Comment on above: Performed By: #### L IPRF, CDP, PHEP, CP, HIVCMB #### [facility] [employer] [address] [place] [phone] Investment Advisor: Severino Jacobson MD Hep B Core Ab,IgM Non-Reactive Normal NR [facility] Comment on above: Performed By: #### L IPRF, CDP, PHEP, CP, HIVCMB #### [facility] [employer] [address] [place] [phone] Investment Advisor: Severino Jacobson MD Hep B Surf Ag Non-Reactive Normal NR [facility] Comment on above: Performed By: #### L IPRF, CDP, PHEP, CP, HIVCMB #### [facility] [employer] [address] [place] [phone] Investment Advisor: Severino Jacobson MD Hep C Ab Non-Reactive Normal NR [facility] Comment on above: Result Comment: The hepatitis [...] L IPRF, CDP, PHEP, CP, HIVCMB #### [address] [address] Investment Advisor: Severino Jacobson MD Lipid Prof, Fastingon 2022 Cholesterol [Mass/Vol] 155 mg/dL Normal 0-199 [facility] Comment on above: Result Comment: Cholesterol Guidelines: <200 Desirable 200-240 Borderline >240 Undesirable Performed By: #### C DP, LIPRF, CP #### [address] [address] Investment Advisor: Severion Jacobson MD Cholesterol in HDL [Mass/Vol] 49 mg/dL Normal >40 [facility] Comment on above: Result Comment: HDL Guidelines: <40 Undesirable 40-59 Borderline >59 Desirable Performed By: #### C DP, LIPRF, CP #### [facility] [employer] [address] [place] [phone] Investment Advisor: Severino Jacobson MD Cholesterol in LDL [Mass/Vol] 98 mg/dL Normal 0-100 [facility] Comment on above: Result Comment: LDL Guidelines: <100 Desirable 100-129 Near to/above Desirable 130-159 Borderline >159 Undesirable Direct (measured) LDL and calculated LDL are not interchangeable tests. Performed By: #### C DP LIPRF, CP #### [facility] [employer] [address] [place] [phone] Investment Advisor: Severino Jacobson MD Cholesterol in VLDL [Mass/Vol] 8 mg/dL Normal [facility] Comment on above: Performed By: #### C DP LIPRF, CP #### [facility] [employer] [address] [place] [phone] Investment Advisor: Severino Jacobson MD Cholesterol.total/Chol esterol in HDL [Mass ratio] 3.0 {ratio} Normal [facility] Comment on above: Performed By: #### C DP LIPRF, CP #### [facility] [employer] [address] [place] [phone] Investment Advisor: Severino Jacobson MD Triglyceride,Fasting 38 mg/dL Normal 0-149 [facility] Comment on above: Result Comment: Triglyceride Guidelines: <150 Desirable 150-199 Borderline 200-499 High >499 Very high Based on AHA Guidelines for fasting triglyceride, February 2012. Performed By: #### C DP, LIPRF, CP #### [facility] [employer] [address] [place] [phone] Investment Advisor: Severino Jacobson MD SURGICALon 03-10-2023 SUR[facility] [id number] Assoc. Page 1 of [address] [place] [address] PROC: 03/10/2023 [facility] RECV: 03/13/[address] RPTD: 03/21/2023 [place] [address] LOC: NVCL ACCT: SEX: F [id number] AGE: 32 Y : 1990 PATHOLOGY REPORT [...] on sections examined. Clinical correlation is recommended. [id number] AILEEN DE LA PAZ M.D., F.C.A.P [facility]/ [facility] Printed on: 03/21/[address] [place] [address] Original print date: 03/21/2023 Normal [facility] US PREG ANATOMY SINGLEon US PREG ANATOMY [...] by: VINICIUS GARCIA Date: 2021-08-06 21:37 Normal [facility] CULTURE URINEon 04-25-2021 CULTURE URINE Isolate [...] F Trimethoprim/Sulfame thoxazole <=20 S F Normal [facility] Comment on above: Performed By: #### U RCX ####[facility] [id number] [place], [place] [address]Dr. Purvi Smith HEP B SURFACE ANTIGEN SCREEN on 04-24-2021 HBsAg Screen Negative Normal Negative [facility] Comment on above: Performed By: #### H BSANS #### [facility] [address] [place] [address] Dr. Purvi Smith HIV 1 AND 2 WITH REFLEXon HIV Screen 4th Generation wRfx Non-Reactive Normal Non Reactive [facility] Comment on above: Performed By: #### H IV12 ####[facility] [address] [address]Dr. Purvi Smith RPR QUANTon 04-24-2021 Rapid Plasma Reagin, Quant Non-Reactive Normal NonRea<1:1 [facility] Comment on above: Performed By: #### R PRQ #### [facility] [address] [place] [address] Dr. Purvi Smith RUBELLA AB IGGon 04-24-2021 Rubella Antibodies, IgG 1.35 index Normal Immune >0.99 [facility] Comment on above: Result Comment: Non- immune <0.90 Equivocal 0.90 - 0.99 Immune >0.99 Performed By: #### R UBIGG #### [facility] [address] [place] [address] Dr. Purvi Smith CBC AUTO DIFFon 04-23-2021 BASO # 0.0 103/ul Normal 0.0-0.1 [facility] Comment on above: Performed By: #### C BC #### [facility] [address] [place] [address] Dr. Purvi Smith Basophils/100 WBC (Bld) 0.3 % Normal 0.2-2.0 [facility] Comment on above: Performed By: #### C BC #### [facility] [address] [place] [address] Dr. Purvi Smith EO # 0.2 103/ul Normal 0.0-0.7 [facility] Comment on above: Performed By: #### C BC #### [facility] [address] [place] [address] Dr. Purvi Smith Eosinophils/100 WBC (Bld) 2.1 % Normal 0.9-7.0 [facility] Comment on above: Performed By: #### C BC #### [facility] [address] [place] [address] Dr. Purvi Smith Erythrocyte distribution width (RBC) [Ratio] 12.1 % Normal 11.0-15.0 [facility] Comment on above: Performed By: #### C BC #### [facility] [address] [place] [address] Dr. Purvi Smith Hematocrit (Bld) [Volume fraction] 32.3 % Critically low 36.0-48.0 [facility] Comment on above: Performed By: #### C BC #### [facility] [address] [place] [address] Dr. Purvi Smith Hemoglobin (Bld) [Mass/Vol] 10.6 g/dL Critically low 12.0-16.0 [facility] Comment on above: Performed By: #### C BC #### [facility] [address] [place] [address] Dr. Purvi Smith IG # 0.04 10e3/ul Critically high 0.00-0.03 [facility] Comment on above: Performed By: #### C BC #### [facility] [address] [place] [address] Dr. Purvi Smith IG % 0.3 % Normal 0.0-0.5 [facility] Comment on above: Performed By: #### C BC #### [facility] [address] [place] [address] Dr. Purvi Smith LYMPH # 2.1 103/ul Normal 1.2-3.8 [facility] Comment on above: Performed By: #### C BC #### [facility] [address] [place] [address] Dr. Purvi Smith Lymphocytes/100 WBC (Bld) 17.9 % Critically low 20.5-60.0 [facility] Comment on above: Performed By: #### C BC #### [facility] [address] [place] [address] Dr. Purvi Smith MANUAL DIFF REQ NO Normal [facility] Comment on above: Performed By: #### C BC #### [facility] [address] [place] [address] Dr. Purvi Smith MCH (RBC) [Entitic mass] 30.2 pg Normal 26.7-34.0 [facility] Comment on above: Performed By: #### C BC #### [facility] [address] [place] [address] Dr. Purvi Smith MCHC (RBC) [Mass/Vol] 32.8 g/dL Normal 29.9-35.2 [facility] Comment on above: Performed By: #### C BC #### [facility] [address] [place] [address] Dr. Purvi Smith MCV (RBC) [Entitic vol] 92.0 fL Normal 81.0-99.0 [facility] Comment on above: Performed By: #### C BC #### [facility] [address] [place] [address] Dr. Purvi Smith MONO # 0.8 103/ul Normal 0.3-0.8 [facility] Comment on above: Performed By: #### C BC #### [facility] [address] [place] [address] Dr. Purvi Smith Monocytes/100 WBC (Bld) 6.6 % Normal 1.7-12.0 [facility] Comment on above: Performed By: #### C BC #### [facility] [address] [place] [address] Dr. Purvi Smith NEUT # 8.5 103/ul Critically high 1.4-6.5 [facility] Comment on above: Performed By: #### C BC #### [facility] [address] [place] [address] Dr. Purvi Smith Neutrophils/100 WBC (Bld) 72.8 % Normal 43.0-75.0 [facility] Comment on above: Performed By: #### C BC #### [facility] [address] [place] [address] Dr. Purvi Smith Platelet mean volume (Bld) [Entitic vol] 10.0 fL Normal 9.5-13.5 [facility] Comment on above: Performed By: #### C BC #### [facility] [address] [address] [address] Purvi Smith PLT 361 103/ul Normal 150-450 [facility] Comment on above: Performed By: #### C BC #### [facility] [address] [address] [address] Purvi Smith RBC 3.51 106/ul Critically low 4.20-5.40 [facility] Comment on above: Performed By: #### C BC #### [facility] [address] [address] [address] Purvi Smith WBC 11.7 103/ul Critically high 4.0-11.0 [facility] Comment on above: Performed By: #### C BC #### [facility] [address] [place] [address] Dr. Purvi Smith GLYCOHEMOGLOBIN A1Con 2020 ADA RECOMMENDATION ADA THERAPEUTIC TARGET 6.0 - 7.0 ACTION SUGGESTED > 7.0 Normal [facility] Comment on above: Performed By: #### A 1C #### [facility] [address] [place] [address] Dr. Purvi Smith Glucose [Mass/Vol] 88 mg/dL Normal [facility] Comment on above: Performed By: #### A 1C #### [facility] [address] [address] [address] Purvi Smith HbA1c (Bld) [Mass fraction] 4.7 % Normal <=6.0 [facility] Comment on above: Performed By: #### A 1C #### [facility] [address] [address] [address] Purvi FELDMAN BOX TEST PT SEND OUTo n 04-23-2021 SENT TO REF LAB 04/23/2021 Normal [facility] Comment on above: Performed By: #### N BOX #### [facility] [address] [place] [address] Dr. Purvi Smith TYPE AND SCREENon 04-23-2021 TYPE AND SCREEN Negative Normal [facility] Comment on above: Performed By: #### T NS #### [facility] [address] [place] [address] Dr. Purvi Smith US PREG TVon 03-30-2021 [...] VINICIUS GARCIA Date: 2021-03-30 10:06 Normal [facility] CBC AUTO DIFFon 03-16-2021 BASO # 0.0 103/ul Normal 0.0-0.1 [facility] Comment on above: Performed By: #### C BC #### [facility] [address] [place] [address] Dr. Purvi Smith Basophils/100 WBC (Bld) 0.3 % Normal 0.2-2.0 [facility] Comment on above: Performed By: #### C BC #### [facility] [address] [place] [address] Dr. Purvi Smith EO # 0.2 103/ul Normal 0.0-0.7 [facility] Comment on above: Performed By: #### C BC #### [facility] [address] [place] [address] Dr. Purvi Smith Eosinophils/100 WBC (Bld) 1.9 % Normal 0.9-7.0 [facility] Comment on above: Performed By: #### C BC #### [facility] [address] [place] [address] Dr. Purvi Smith Erythrocyte distribution width (RBC) [Ratio] 11.9 % Normal 11.0-15.0 [facility] Comment on above: Performed By: #### C BC #### [facility] [address] [place] [address] Dr. Purvi Smith Hematocrit (Bld) [Volume fraction] 31.5 % Critically low 36.0-48.0 [facility] Comment on above: Performed By: #### C BC #### [facility] [address] [place] [address] Dr. Purvi Smith Hemoglobin (Bld) [Mass/Vol] 10.3 g/dL Critically low 12.0-16.0 [facility] Comment on above: Performed By: #### C BC #### [facility] [address] [place] [address] Dr. Purvi Smith IG # 0.04 10e3/ul Critically high 0.00-0.03 [facility] Comment on above: Performed By: #### C BC #### [facility] [address] [place] [address] Dr. Purvi Smith IG % 0.4 % Normal 0.0-0.5 [facility] Comment on above: Performed By: #### C BC #### [facility] [address] [place] [address] Dr. Purvi Smith LYMPH # 2.3 103/ul Normal 1.2-3.8 [facility] Comment on above: Performed By: #### C BC #### [facility] [address] [place] [address] Dr. Purvi Smith Lymphocytes/100 WBC (Bld) 21.5 % Normal 20.5-60.0 [facility] Comment on above: Performed By: #### C BC #### [facility] [address] [place] [address] Dr. Purvi Smith MANUAL DIFF REQ NO Normal [facility] Comment on above: Performed By: #### C BC #### [facility] [address] [place] [address] Dr. Purvi Smith MCH (RBC) [Entitic mass] 30.2 pg Normal 26.7-34.0 [facility] Comment on above: Performed By: #### C BC #### [facility] [address] [address] [address] Purvi Smith MCHC (RBC) [Mass/Vol] 32.7 g/dL Normal 29.9-35.2 [facility] Comment on above: Performed By: #### C BC #### [facility] [address] [address] [address] Purvi Smith MCV (RBC) [Entitic vol] 92.4 fL Normal 81.0-99.0 [facility] Comment on above: Performed By: #### C BC #### [facility] [address] [address] [address] Purvi Smith MONO # 0.9 103/ul Critically high 0.3-0.8 [facility] Comment on above: Performed By: #### C BC #### [facility] [address] [place] [address] Dr. Purvi Smith Monocytes/100 WBC (Bld) 8.4 % Normal 1.7-12.0 [facility] Comment on above: Performed By: #### C BC #### [facility] [address] [address] [address] Purvi Smith NEUT # 7.3 103/ul Critically high 1.4-6.5 [facility] Comment on above: Performed By: #### C BC #### [facility] [address] [place] [address] Dr. Purvi Smith Neutrophils/100 WBC (Bld) 67.5 % Normal 43.0-75.0 [facility] Comment on above: Performed By: #### C BC #### [facility] [address] [place] [address] Dr. Purvi Smith Platelet mean volume (Bld) [Entitic vol] 10.4 fL Normal 9.5-13.5 [facility] Comment on above: Performed By: #### C BC #### [facility] [address] [place] [address] Dr. Purvi Smith PLT 362 103/ul Normal 150-450 [facility] Comment on above: Performed By: #### C BC #### [facility] [address] [address] [address] Purvi Smith RBC 3.41 106/ul Critically low 4.20-5.40 [facility] Comment on above: Performed By: #### C BC #### [facility] [address] [address] [address] Purvi Smith WBC 10.8 103/ul Normal 4.0-11.0 [facility] Comment on above: Performed By: #### C BC #### [facility] [address] [place] [address] Dr. Purvi Smith PROF CHEM 8 (BAS METB)on Anion gap [Moles/Vol] 10.6 mmol/L Normal [facility] Comment on above: Performed By: #### B MP #### [facility] [address] [place] [address] Dr. Purvi Smith Calcium [Mass/Vol] 9.2 mg/dL Normal 8.4-10.2 [facility] Comment on above: Performed By: #### B MP #### [facility] [address] [place] [address] Dr. Purvi Smith Chloride [Moles/Vol] 103 mmol/L Normal 98-107 [facility] Comment on above: Performed By: #### B MP #### [facility] [address] [place] [address] Dr. Purvi Smith CO2 [Moles/Vol] 25.5 mmol/L Normal 22.0-30.0 [facility] Comment on above: Performed By: #### B MP #### [facility] [address] [place] [address] Dr. Purvi Smith Creatinine [Mass/Vol] 0.61 mg/dL Normal 0.52-1.04 [facility] Comment on above: Performed By: #### B MP #### [facility] [address] [place] [address] Dr. Purvi Smith EGFR-AF GERMAN >60 Normal >=60 [facility] Comment on above: Performed By: #### B MP #### [facility] [address] [address] [address] Purvi Smith EGFR-NON AF GERMAN >60 Normal >=60 [facility] Comment on above: Performed By: #### B MP #### [facility] [address] [address] [address] Purvi Smith Glucose [Mass/Vol] 80 mg/dL Normal 74-106 [facility] Comment on above: Performed By: #### B MP #### [facility] [address] [address] [address] Purvi Smith Potassium [Moles/Vol] 3.1 mmol/L Critically low 3.4-5.0 [facility] Comment on above: Performed By: #### B MP #### [facility] [address] [address] [address] Purvi Smith Sodium [Moles/Vol] 136 mmol/L Critically low 137-145 [facility] [place] Comment on above: Performed By: #### B MP #### [facility] [address] [address] [address] Purvi Smith Urea nitrogen [Mass/Vol] 11.0 mg/dL Normal 7.0-17.0 [facility] Comment on above: Performed By: #### B MP #### [facility] [address] [place] [address] Dr. Purvi Smith Urea nitrogen/Creatinine [Mass ratio] 18.0 mg/mg Normal [facility] Comment on above: Performed By: #### B MP #### [facility] [address] [place] [address] Dr. Purvi Smith Vital Signs Date Time Vital Sign Value Performing Clinician Facility 06-23-2024 10:56-0500 Body mass index (BMI) [Ratio] 28.32 kg/m2 Sophia KYLE Work Phone: [facility] 06-23-2024 10:56-0500 Body weight 74.84 kg Sophia KYLE Work Phone: [facility] 06-23-2024 10:56-0500 Diastolic blood pressure 80 mm[Hg] Sophia Iraj PA Work Phone: [facility] 06-23-2024 10:56-0500 Systolic blood pressure 128 mm[Hg] Sophia Galo PA Work Phone: [facility] 06-09-2024 11:35-0500 Body mass index (BMI) [Ratio] 28.69 kg/m2 Shakir Steph DO Work Phone: [facility] 06-09-2024 11:35-0500 Body weight 75.81 kg Shakir Steph DO Work Phone: [facility] 06-09-2024 11:35-0500 Diastolic blood pressure 74 mm[Hg] Shakir Steph DO Work Phone: [facility] 06-09-2024 11:35-0500 Systolic blood pressure 114 mm[Hg] Shakir Steph DO Work Phone: [facility] 05-24-2024 13:21-0500 Body mass index (BMI) [Ratio] 28.63 kg/m2 Sophia Galo PA Work Phone: [facility] 05-24-2024 13:21-0500 Body weight 75.66 kg Sophia Iraj PA Work Phone: [facility] 05-24-2024 13:21-0500 Diastolic blood pressure 80 mm[Hg] Sophia Iraj PA Work Phone: [facility] 05-24-2024 13:21-0500 Systolic blood pressure 116 mm[Hg] Sophia Galo PA Work Phone: [facility] 05-10-2024 13:14-0500 Body mass index (BMI) [Ratio] 28.32 kg/m2 Shaikr Steph DO Work Phone: [facility] 05-10-2024 13:14-0500 Body weight 74.84 kg Shakir Steph DO Work Phone: [facility] 05-10-2024 13:14-0500 Diastolic blood pressure 66 mm[Hg] Shakir Steph DO Work Phone: [facility] 05-10-2024 13:14-0500 Systolic blood pressure 106 mm[Hg] Shakir Steph DO Work Phone: [facility] 05-05-2024 10:30-0500 Body height 162.6 cm Ifrah Díaz MD Work Phone: [facility] 05-05-2024 10:30-0500 Body mass index (BMI) [Ratio] 28.21 kg/m2 Ifrah Díaz MD Work Phone: [facility] 05-05-2024 10:30-0500 Body weight 74.57 kg Ifrah Díaz MD Work Phone: [facility] 05-05-2024 10:30-0500 Diastolic blood pressure 68 mm[Hg] Ifrah Díaz MD Work Phone: [facility] 05-05-2024 10:30-0500 Heart rate 90 /min Ifrah Díaz MD Work Phone: [facility] 05-05-2024 10:30-0500 Systolic blood pressure 120 mm[Hg] Ifrah Díaz MD Work Phone: [facility] 04-12-2024 13:58-0500 Body mass index (BMI) [Ratio] 28.63 kg/m2 Sophia KYLE Work Phone: [facility] 04-12-2024 13:58-0500 Body weight 75.66 kg Sophia KYLE Work Phone: [facility] 04-12-2024 13:58-0500 Diastolic blood pressure 70 mm[Hg] Sophia Galo PA Work Phone: [facility] 04-12-2024 13:58-0500 Systolic blood pressure 120 mm[Hg] Sophia Galo PA Work Phone: [facility] 03-15-2024 10:53-0400 Body mass index (BMI) [Ratio] 27.77 kg/m2 Shakir Steph DO Work Phone: [facility] 03-15-2024 10:53-0400 Body weight 73.39 kg Shakir Steph DO Work Phone: [facility] 03-15-2024 10:53-0400 Diastolic blood pressure 72 mm[Hg] Shakir Steph DO Work Phone: [facility] 03-15-2024 10:53-0400 Systolic blood pressure 110 mm[Hg] Shakir Steph DO Work Phone: [facility] 02-06-2024 15:11-0400 Diastolic blood pressure 63 mm[Hg] Stv 11 [facility] [employer] 02-06-2024 15:11-0400 Heart rate 89 /min Stv 11 [facility] [employer] 02-06-2024 15:11-0400 Systolic blood pressure 97 mm[Hg] Stv 11 [facility] [employer] 02-06-2024 14:22-0400 Respiratory rate 16 /min St[facility] 11 [facility] [employer] 01-29-2024 11:52-0400 Body mass index (BMI) [Ratio] 27.64 kg/m2 Shakir Steph DO Work Phone: [facility] 01-29-2024 11:52-0400 Body weight 73.03 kg Shakir Steph DO Work Phone: [facility] 01-29-2024 11:52-0400 Diastolic blood pressure 74 mm[Hg] Shakir Steph DO Work Phone: [facility] 01-29-2024 11:52-0400 Systolic blood pressure 112 mm[Hg] Shakir Steph DO Work Phone: [facility] Healthcare Encounters Encounter Date Encounter Type Care Provider Facility Start: 06-23-2024 End: 06-23-2024 Bamboo flowsheet Sophia KYLE Work Phone: [facility] Start: 06-23-2024 End: 06-23-2024 Bamboo flowsestrada KYLE Work Phone: [facility] Start: 06-23-2024 End: 06-23-2024 Clinisync Result Encounter Shakir Steph DO Work Phone: [facility] External Department Unsolicited Start: 06-23-2024 End: 06-23-2024 Office outpatient visit 15 minutes Sophia KYLE Work Phone: [facility] Comment on above: Third trimester preg yenny; 33 weeks gestation of ; Urinary tract infection with hematuria, site unspecified Start: 06-23-2024 End: 06-23-2024 ambulatory SOPHIA GALO Not Available Start: 06-22-2024 End: 06-22-2024 [facility] Start: 06-09-2024 End: 06-09-2024 Bamboo flowsheet Shakir Steph DO Work Phone: [facility] Start: 06-09-2024 End: 06-09-2024 Bamboo flowsheet Shakir Steph DO Work Phone: [facility] Start: 06-09-2024 End: 06-09-2024 ambulatory SHAKIR STEPH Not Available Start: 06-09-2024 End: 06-09-2024 Office outpatient visit 15 minutes Shakir Steph DO Work Phone: [facility] Comment on above: 31 weeks gestation o f ; Second trimester ; Right club foot; Premature uterine contractions, antepartum Start: 06-03-2024 End: 06-03-[address] [facility] Start: 05-24-2024 End: 05-24-2024 Bamboo flowsheet Sophia KYLE Work Phone: [facility] Start: 05-24-2024 End: 05-24-2024 Bamboo flowsheet Sophia KYLE Work Phone: [facility] Start: 05-24-2024 End: 05-24-2024 Office outpatient visit 15 minutes Sophia KYLE Work Phone: [facility] Comment on above: 29 weeks gestation o f ; Third trimester ; SGA (small for gestational age) Start: 05-24-2024 End: 05-24-2024 ambulatory SOPHIA GALO Not Available Start: 05-13-2024 End: 05-13-2024 ambulatory VINICIUS QUINTANA [facility] Start: 05-10-2024 End: 05-10-2024 Bamboo flowsheet Shakir Steph DO Work Phone: [facility] Start: 05-10-2024 End: 05-11-2024 Bamboo flowsheet Shakir Steph DO Work Phone: [facility] Start: 05-10-2024 End: 05-11-2024 External Result Encounter Shakir Steph DO Work Phone: [facility] External Department Unsolicited Start: 05-10-2024 End: 05-10-2024 Office outpatient visit 15 minutes Shakir Steph DO Work Phone: [facility] Comment on above: 27 weeks gestation o f ; Second trimester ; Urinary tract infection without hematuria, site unspecified Start: 05-10-2024 End: 05-10-2024 ambulatory SHAKIR STEPH Not Available Start: 05-05-2024 End: 05-05-2024 Office outpatient new 45 minutes Ifrah Díaz MD Work Phone: [facility] Comment on above: Club foot of fetus a ffecting antepartum care of mother, other fetus (Primary Dx); Placenta previa in second trimester; Suspected problem with placenta not found; History of delivery, currently ; History of drug overdose; History of placental abruption; Anxiety and depression; 26 weeks gestation of Start: 05-05-2024 End: 05-05-2024 Orders Only Lena Bucio [employer] [facility] Comment on above: Club foot of fetus a ffecting antepartum care of mother, other fetus (Primary Dx); Placenta previa in second trimester; Suspected problem with placenta not found; History of delivery, currently ; History of drug overdose Start: 04-12-2024 End: 04-12-2024 Bamboo flowsheet Sophia KYLE Work Phone: [facility] Start: 04-12-2024 End: 04-12-2024 Bamboo flowsheet Sophia KYLE Work Phone: [facility] Start: 04-12-2024 End: 04-12-2024 Office outpatient visit 15 minutes Sophia KYLE Work Phone: [facility] Comment on above: Bacterial vaginosis (Primary Dx); 23 weeks gestation of ; Second trimester ; Diabetes mellitus screening Start: 04-12-2024 End: 04-12-2024 ambulatory SOPHIA GALO Not Available Start: 04-09-2024 End: 04-09-2024 ambulatory [facility] Start: 04-06-2024 End: 04-06-2024 Clinisync Result Encounter Shakir Steph DO Work Phone: [facility] External Department Unsolicited Start: 04-06-2024 End: 04-06-2024 Clinisync Result Encounter Shakir Steph DO Work Phone: [facility] External Department Unsolicited Start: 03-15-2024 End: 03-15-2024 Bamboo flowsheet Shakir Steph DO Work Phone: [facility] Start: 03-15-2024 End: 03-15-2024 Bamboo flowsheet Shakir Steph DO Work Phone: [facility] Start: 03-15-2024 End: 03-15-2024 Office outpatient visit 15 minutes Shakir Steph DO Work Phone: [facility] Comment on above: Second trimester pre gnancy; 17 weeks gestation of ; UTI symptoms Start: 03-15-2024 End: 03-15-2024 ambulatory SHAKIR STEPH Not Available Start: 02-26-2024 End: 02-26-2024 Emergency department patient visit [facility] Start: 02-06-2024 End: 02-06-2024 ambulatory JOSSUE GORMANHAYDE [facility] Start: 02-06-2024 End: 02-06-2024 Subsequent hospital visit by physician Clarita Burt [facility] On[facility] Chair 11 [facility] Comment on above: Iron deficiency anem ia, unspecified iron deficiency anemia type (Primary Dx) Start: 01-30-2024 End: 01-30-2024 ambulatory BOBBILorin Keira KAMRONHARPER [facility] Start: 01-29-2024 End: 01-29-2024 Bamboo flowsheet Shakir [...] Department Unsolicited Start: 01-01-2024 End: 01-01-2024 ambulatory SOPHIA GALO Not Available Start: 12-20-2023 End: 12-20-2023 Emergency department patient visit VINICIUS Hunt[facility] Start: 12-05-2023 End: 12-05-2023 ambulatory BENSON DIAL [facility] Start: 11-24-2023 End: 11-24-2023 Emergency department patient visit VINICIUS Huntley [facility] Start: 11-06-2023 End: 11-06-2023 ambulatory BERNIE PULIDO [facility] Start: 09-08-2023 End: 09-08-2023 Telephone encounter Amber Smith [facility] Comment on above: appointment due Start: 09-02-2023 End: 09-02-2023 ambulatory BERNIE PULIDO [facility] Start: 07-17-2023 End: 07-17-2023 Emergency department patient visit VINICIUS QUINTANA [facility] Start: 04-11-2023 End: 04-11-2023 ambulatory BERNIE PULIDO [facility] Start: 03-12-2023 ambulatory BENSON DIAL [facility] Start: 09-10-2021 End: 09-10-2021 Subsequent hospital visit [...] Date Procedure Procedure Detail Performing Clinician Start: 06-23-2024 US OB BPP W NON-STRESS Shakir Choi DO Work Phone: Start: 06-23-2024 Urnls dip stick/tabl et rgnt non-auto w/o micrscp Sophia KYLE Work Phone: Start: 05-24-2024 Urnls dip stick/tabl et rgnt non-auto w/o micrscp Sophia KYLE Work Phone: Start: 05-10-2024 URINARY TRACT INFECT ION (HTRX) Shakir Steph DO Work Phone: Start: 05-10-2024 Urnls dip stick/tabl et rgnt non-auto w/o micrscp Shakir Steph DO Work Phone: Start: 04-12-2024 Urnls dip stick/tabl et rgnt non-auto w/o micrscp Shakir Steph DO Work Phone: Start: 04-06-2024 [facility] UA (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 Shakirsushma Naqvio DO Work Phone: Start: 04-06-2024 [facility] URINE MICROSCOPIC ONLY Shakir Choi DO Work Phone: Start: 03-15-2024 Urnls dip stick/tabl et rgnt non-auto w/o micrscp Shakirsushma Naqvio DO Work Phone: Start: 01-29-2024 URETHRITIS/DISCHARGE PLUS VAGINITIS (HTRX) Shakirsushma Naqvio DO Work Phone: Start: 01-29-2024 Urnls dip stick/tabl et rgnt non-auto w/o micrscp Shakirsushma Naqvio DO Work Phone: Start: 01-17-2024 Antibody screen Shakir eagle DO Work Phone: Start: 01-17-2024 ALL CBC WITH AUTO DIFF Shakirsushma Choi DO Work Phone: Start: 01-17-2024 ALL TYPE AND SCREEN Cor ey Steph DO Work Phone: Start: 01-17-2024 MLR HEMOGLOBIN A1C Core y Steph DO Work Phone: Start: 04-25-2022 Adult depression scr eening assessment Amber Smith [employer] Start: 08-21-2021 Microscopic observat ion [Identifier] in Cervix by Cyto stain Stv 3 Plan of Treatment Date Care Activity Detail Author Start: 05-05-2025 Adult BMI Screening Adult BMI Screen ing [facility] Start: 05-05-2025 Tobacco Screening Tobacco Screening [facility] Start: 05-05-2025 End: 05-05-2025 US MFM with or without consult US MFM with or without consult Imaging Routine 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, other fetus Placenta previa in second trimester Suspected problem with placenta not found History of delivery, currently History of drug overdose Expected: 05/05/2025 (Approximate), Expires: 05/05/2025 [employer] Work Phone: Comment on above: Expected: 05/05/2025 (Approximate), Expires: 05/05/2025 Start: 08-21-2024 Screening for malign ant neoplasm of cervix [facility] Start: 07-17-2024 Adult BMI Screening Adult BMI Screen ing [facility] Start: 07-17-2024 Tobacco Screening Tobacco Screening [facility] Start: 07-08-2024 End: 07-08-2024 Patient encounter procedure 07/08/2024 10:40 AM EST Routine [facility] [address] [place] [id number] Shakir Choi, DO [address] [place] [address] [facility] Start: 06-23-2024 End: 06-23-2024 Patient encounter procedure [facility] Comment on above: Arrived Start: 06-12-2024 Respiratory Syncytia l Virus (RSV) or age 60 yrs+ (1 - Risk 1-dose series) Respiratory Syncytial Virus (RSV) or age 60 yrs+ (1 - Risk 1-dose series) [facility] Start: 06-09-2024 End: 06-09-2024 Patient encounter procedure 06/09/2024 11:20 AM EST Routine [facility] [address] [place] [id number] Shakir Choi, DO [address] [place] [address] [facility] Start: 06-03-2024 End: 06-03-2024 Patient encounter procedure 06/03/2024 2:[address] [facility] [address] [place] [id number] [facility] Start: 05-24-2024 End: 05-24-2025 US [...] AM EST Routine [facility] [address] [place] [address] Sophia Galo PA [address] [place] [address] [facility] Start: 04-12-2024 End: 04-12-2025 [...] mellitus screening Expected: 04/12/2024 (Approximate), Expires: 04/12/2025 [facility] Comment on above: Expected: 04/12/2024 (Approximate), Expires: 04/12/2025 Start: 04-01-2024 End: 04-01-2024 Telemedicine consultation with patient 04/01/2024 4:00 PM EST Telemedicine [facility] [address] [place], [place] [id number] Jossue Swain MD [address] [place], [place] [id number] 3 month f/u [facility] Comment on above: 3 month f/u Start: 03-15-2024 End: 03-15-2024 Patient encounter procedure 03/15/2024 10:00 AM EDT Routine [facility] [place] [address] Shakir Choi DO [facility] [address], [place] [id number] Arrived [facility] Comment on above: Arrived Start: 02-26-2024 End: 02-26-2024 Patient encounter procedure 02/26/2024 9:40 AM EDT Routine [place] [address] Sophia Galo PA [address] [place] [address] [facility] Start: 01-29-2024 End: 01-29-2024 Patient encounter procedure 01/29/2024 10:40 AM EDT Routine [facility] [address] [place] [address] Shakir Choi DO [address] [facility] [address] [place] [address] [facility] Start: 01-25-2024 COVID-19 Vaccine ( season) COVID-19 Vaccine ( season) [facility] Start: 01-25-2024 COVID-19 Vaccine ( season) COVID-19 Vaccine ( season) [facility] Start: 01-25-2024 Influenza vaccination P [facility] Start: 12-25-2023 Influenza vaccination Flu vaccine (# 1) [facility] Start: 04-25-2023 [facility] Start: 01-24-2023 COVID-19 Vaccine ( season) COVID-19 Vaccine ( season) [facility] Start: 11-11-2022 DTaP,Tdap and Td Vaccines (7 - Td or Tdap) DTaP,Tdap and Td Vaccines (7 - Td or Tdap) [facility] Start: 11-11-2022 DTaP/Tdap/Td vaccine (7 - Td or Tdap) DTaP/Tdap/Td vaccine (7 - Td or Tdap) [facility] Start: 2022 Screening for malign ant neoplasm of cervix [facility] Start: 01-24-2022 Influenza vaccination Flu vacc ine (Season Ended) [facility] Start: 10-01-2021 End: 10-01-2021 Patient encounter procedure 10/01/2021 Routine Obstetrics and Gynecology Kristel De Leon N, DO [address] [place], [place] [id number] [facility] [employer] [place] Start: 09-04-2021 End: 09-04-2021 Patient encounter procedure 09/04/2021 Routine Obstetrics and Gynecology Anisha Lucas, DO [address] [place], [place] [id number] [facility] [employer] [place] Start: 01-24-2021 Influenza vaccination Flu vaccine (# 1) [facility] Start: 08-03-2019 Varicella vaccine (2 of 2 - 13+ 2-dose series) Varicella vaccine (2 of 2 - 13+ 2-dose series) [facility] Start: 07-28-2019 Hepatitis B vaccine (3 of 3 - 19+ 3-dose series) Hepatitis B vaccine (3 of 3 - 19+ 3-dose series) [facility] Start: 2013 Screening for malign ant neoplasm of cervix Pap smear [facility] Start: 09-21-2011 DTaP/Tdap/Td vaccine (1 - Tdap) DTaP/Tdap/Td vaccine (1 - Tdap) [facility] Start: 2010 Adult BMI Follow Up Plan Adult BMI Follow Up Plan [facility] Start: 2010 Hepatitis C screening Hepatitis C [facility] Start: 2004 Depression Screen Depression Screen [facility] Start: 1997 COVID-19 Vaccine (1) COVID-19 Vaccin e (1) [facility] Start: 1993 Varicella vaccine (1 of 2 - 2-dose childhood series) Varicella vaccine (1 of 2 - 2-dose childhood series) [facility] Start: 1992 Hepatitis C screening Hepatitis C [facility] Bacteria identified in Urine by Culture Urine culture Microbiology Routine UTI symptoms Ordered: 03/15/2024 [facility] [employer] Work Phone: Comment on above: Ordered: 03/15/2024 Bacteria identified in Urine by Culture Urine culture Microbiology Routine 27 weeks gestation of Urinary tract infection without hematuria, site unspecified Ordered: 05/10/2024 [facility] Work Phone: Comment on above: Ordered: 05/10/2024 Bacteria identified in Urine by Culture Urine culture Microbiology Routine Urinary tract infection without hematuria, site unspecified Ordered: 01/29/2024 [facility] [employer] Work Phone: Comment on above: Ordered: 01/29/2024 Hemoglobin A1c/Hemoglobin.total in Blood Hemoglobin A1c Lab Routine 29 weeks gestation of Third trimester SGA (small for gestational age) Ordered: 05/24/2024 [facility] Comment on above: Ordered: 05/24/2024 Immunizations Immunization Date Immunization Notes Care Provider Fa timoteo 08-06-2019 Influenza, injectabl e, Madin Estefania Canine Kidney, preservative free, quadrivalent [facility] 08-06-2019 influenza virus vaccine, unspecified formulation [facility] 07-06-2019 tuberculin skin test ; purified protein derivative solution, intradermal [facility] 07-06-2019 varicella virus vaccine [facility] 03-01-2019 hepatitis B vaccine, adult dosage [facility] 01-27-2019 hepatitis B vaccine, adult dosage [facility] 11-11-2012 tetanus toxoid, redu lucrecia diphtheria toxoid, and acellular pertussis vaccine, adsorbed [facility] 06-11-2012 influenza, seasonal, injectable [facility] 01-01-2005 measles, mumps and rubella virus vaccine [facility] 01-01-2005 poliovirus vaccine, inactivated [facility] 01-01-2005 TD(adult) unspecifie d formulation [facility] 05-02-1995 diphtheria, tetanus toxoids and acellular pertussis vaccine, unspecified formulation [facility] 03-22-1994 diphtheria, tetanus toxoids and acellular pertussis vaccine, unspecified formulation [facility] 03-22-1994 haemophilus influenz ae type b vaccine, conjugate unspecified formulation [facility] 03-22-1994 measles, mumps and rubella virus vaccine [facility] 03-22-1994 poliovirus vaccine, unspecified formulation [facility] 07-27-1993 diphtheria, tetanus toxoids and acellular pertussis vaccine, unspecified formulation [facility] 07-27-1993 haemophilus influenz ae type b vaccine, conjugate unspecified formulation [facility] 07-27-1993 hepatitis B vaccine, pediatric or pediatric/adolescent dosage [facility] 07-27-1993 poliovirus vaccine, unspecified formulation [facility] 1992 diphtheria, tetanus toxoids and acellular pertussis vaccine, unspecified formulation [facility] 1992 haemophilus influenz ae type b vaccine, conjugate unspecified formulation [facility] 1992 hepatitis B vaccine, pediatric or pediatric/adolescent dosage [facility] 1992 poliovirus vaccine, unspecified formulation [facility] 1992 hepatitis B vaccine, pediatric or pediatric/adolescent dosage [facility] Payers Date Payer Category Payer Medicaid (Managed Care) [employer] [id number] 2003 Medicaid [id number] 2003 Medicaid HMO [employer] [id number] 1992 Unknown [id number] 2.16.840.1.318045.3.579.2. 593 1992 Unknown [id number] 2.16.840.1.781157.3.579.2. 593 1992 Unknown [id number] 2.16.840.1.455614.3.579.2. 593 1992 Unknown [id number] 2.16.840.1.099174.3.579.2. 593 1992 Unknown [id number] 2.16.840.1.155920.3.579.2. 593 1992 Unknown [id number] 2.16.840.1.944188.3.579.2. 93 1992 Unknown [id number] 2.840.1.624116.3.579.2. 177 1992 Unknown [id number] 2.16840.1.645236.3.579.2. 175 1992 Unknown [id number] 2.16840.1.399342.3.579.2. 175 1992 Unknown [id number] 2.16840.1.969496.3.579.2. 175 1992 Unknown [id number] 2.16840.1.062025.3.579.2. 175 1992 Unknown [id number] 2.16840.1.930063.3.579.2. 175 1992 Unknown [id number] 2.16840.1.451262.3.579.2. 1286 1992 Unknown [id number] 2.16840.1.461427.3.579.2. 1286 1992 Unknown [id number] 2.16840.1.506830.3.579.2. 1286 1992 Unknown [id number] 2.16.840.1.965668.3.579.2. 1286 1992 Unknown [id number] 2.840.1.630933.3.579.2. 1285 1992 Unknown [id number] 2.16840.1.140788.3.579.2. 1285 1992 Unknown [id number] 2.840.1.937572.3.579.2. 1285 1992 Unknown [id number] 2.840.1.335179.3.579.2. 1285 1992 Unknown [id number] 2.840.1.620263.3.579.2. 1285 1992 Unknown [id number] 2.840.1.803819.3.579.2. 1285 1992 Unknown [id number] 2840.1.672557.3.579.2. 1258 1992 Unknown [id number] 2.840.1.275049.3.579.2. 1258 1992 Unknown [id number] 2.840.1.710563.3.579.2. 1258 1992 Unknown [id number] 2.840.1.924221.3.579.2. 1258 1992 Unknown [id number] 2840.1.752187.3.579.2. 1258 1990 Unknown [id number] 1990 Unknown [id number] 1990 Unknown [id number] 1957 Self-pay [id number] 1957 Unknown [id number] Unknown [id number] Social History Date Type Detail Facility Start: 06-23-2012 End: 01-01-2024 Tobacco smoking status MSIS Never smoked tobacco [facility] Phone: Start: 06-23-2012 End: 01-01-2024 Tobacco use and exposure Smokeless tobacco non-user [facility] Phone: Start: 08-21-2021 End: 06-09-2024 Alcohol intake Lifetime non-drinker (finding) [facility] Phone: Start: 08-21-2021 History SDOH Alcohol Frequency 1 [facility] Phone: Start: 02-16-2021 [employer] Phone: Start: 1990 [facility] Assigned At [facility] Start: 09-01-2021 End: 09-04-2021 Tobacco smoking status MSIS Ex-smoker [employer] Start: 09-04-2021 End: 12-05-2023 Alcohol intake Ex-drinker (finding) [facility] Phone: Start: 07-06-2020 End: 01-01-2024 History of Social function [facility] [employer] [facility] Start: 07-06-2020 End: 01-01-2024 Tobacco use panel [facility] Start: 1990 Sex assigned at Female [facility] History of tobacco use Current smoker Pro [facility] Has the [employer], [employer], or water Step-In threatened to shut off services in your home in past 12Mo No [facility] How hard is it for y ou to pay for the very basics like food, housing, medical care, and heating Not hard at all [facility] The thought of krishan jeronimo myself has occurred to me Never [facility] Start: 05-01-2018 Alcohol Comment once a month / couple glasses of wine [facility] Start: 12-29-2014 Sex Female (finding) [facility] Start: 02-22-2024 Alcoholic beverage intake Current drinker of alcohol (finding) [facility] Clinical Notes 09-08-2023 to 06-23-2024 ANABELLA Gleason - 06/23/2024 10:40 AM Jenelle Nunez, TAMEKA - 06/09/2024 11:20 AM ANABELLA Geller - 05/24/2024 1:20 PM Jenelle Nunez, TAMEKA - 05/10/2024 1:10 PM ANABELLA Geller - 04/12/2024 1:20 PM EST Note Date & Type Note Facility 06-23-2024 History of Presen t illness Narrative Reason [...] Past Medical History: Diagnosis Date Anxiety Asthma ([facility]) Chlamydia Depression ([facility]) History of miscarriage Iron deficiency anemia SAB (spontaneous ) UTI (urinary tract infection) HISTORY PAST MEDICAL HISTORY SOCIAL HISTORY Past Medical History: Diagnosis Date Anxiety Asthma ([facility]) Chlamydia Depression ([facility]) History of miscarriage Iron deficiency anemia SAB [...] reviewed. Vitals: Estimated body mass index is 28.32 kg/m as calculated from the following: Height as of 03/03/23: 5' 4 . Weight as of this encounter: 165 lb. BP: 128/80 Patient's last menstrual period was 11/01/2023. ASSESSMENT & PLAN ICD-10-CM 1. Third trimester Z34.93 POCT urinalysis dipstick manually resulted 2. 33 weeks gestation of Z3A.33 Return OB: Patient presents today for a routine obstetrics appointment. Patient is currently 33w4d . Patient states she is doing well but has complaints of being tired due to current . Patient has verbalizes frequent movement. labor precautions was discussed/given and patient was instructed to perform kick counts three times a day. Pt was having contractions on 06/20/2024 and went to [facility] for evaluation pt states she was given IV fluids and the contractions went away. On 06/22/2024 pt states she went to [facility] due to contractions again @ 7-10 mins apart pt stated and pt was kept over night and then released. Pt states today she is still having contractions @ 20 mins apart and lower back pain. Pt stated she has had two pregnancies that were babies. Pt stated she had one baby at 32 weeks and the other at 34 weeks. Patient sent over to [facility] for nst and BPP following appointment today. Ua showed positive nitrate and we will send in keflex Orders Placed This Encounter Procedures POCT urinalysis dipstick manually resulted Follow Up: Patient is to return to office in 2 week for routine OB appointment. Documented by Latia Hsu MA on behalf of: ANABELLA Gleason documented in this encounter [facility] 06-09-2024 History of Presen t illness Narrative [...] Diagnosis Date Anxiety Asthma (CMS/HCC) Chlamydia Depression ([facility]) History of miscarriage Iron deficiency anemia SAB (spontaneous ) UTI (urinary tract infection) HISTORY PAST MEDICAL HISTORY SOCIAL HISTORY Past Medical History: Diagnosis Date Anxiety Asthma (CMS/HCC) Chlamydia Depression ([facility]) History of miscarriage Iron deficiency anemia SAB [...] de leon Breast cancer Paternal Grandmother Leonela magñaa SURGICAL HISTORY Past Surgical History: Procedure Laterality [...] nursing note reviewed. Exam conducted with a public works technician present. Vitals: Estimated body mass index is [...] Choi DO documented in this encounter [facility] 05-24-2024 History of Presen t illness Narrative [...] Diagnosis Date Anxiety Asthma (CMS/HCC) Chlamydia Depression ([facility]) History of miscarriage Iron deficiency anemia SAB (spontaneous ) UTI (urinary tract infection) HISTORY PAST MEDICAL HISTORY SOCIAL HISTORY Past Medical History: Diagnosis Date Anxiety Asthma (CMS/HCC) Chlamydia Depression ([facility]) History of miscarriage Iron deficiency anemia SAB [...] was seen and admitted to hospital in [place] when she was on jeane stating they [...] ANABELLA Gleason documented in this encounter [facility] 05-10-2024 History of Presen t illness Narrative [...] Past Medical History: Diagnosis Date Anxiety Asthma ([facility]) Chlamydia Depression ([facility]) History of miscarriage Iron deficiency anemia SAB (spontaneous ) UTI (urinary tract infection) HISTORY PAST MEDICAL HISTORY SOCIAL HISTORY Past Medical History: Diagnosis Date Anxiety Asthma (CMS/HCC) Chlamydia Depression ([facility]) History of miscarriage Iron deficiency anemia SAB [...] nursing note reviewed. Exam conducted with a public works technician present. Vitals: Estimated body mass index is [...] a day. Is doing growth ultrasounds at [facility] on 06/03/ will start here after, NST/BPP at 32 weeks. Rx for macrobid faxed to pharmacy. Orders Placed This Encounter Procedures Urine culture POCT urinalysis dipstick manually resulted Follow Up: Patient is to return to office in 2 week for routine OB appointment. Documented by Ct Nunez LPN on behalf of: Sopiha Galo PA-C documented in this encounter [facility] 05-05-2024 History of Presen t illness Narrative [...] female Have you been seen here at [facility] in a previous ? Yes Recent ER visits or hospitalizations? Yes , spotting Bring blood sugar log or meter with you today? (Please bring them with you for every visit at [facility]) n/a Flu vaccine (Mar-July)? No Any concerns [...] not taking: Reported on 05/05/2024 02/27/23 Vinicius Quintana MD ondansetron ODT (ZOFRAN ODT) 4 mg [...] Patient not taking: Reported on 05/05/2024 12/20/23 Candice Lim APRN-INSURANCE OFFICE MANAGER SH: Social History Socioeconomic History Marital status: [...] We also discussed pediatric orthopedic follow-up postnatally. Ct live in caregiver met with the patient after the visit. [...] Follow-up with Pediatric Orthopedic surgery postnatally. Ct live in caregiver met with the patient today. Plan reviewed with patient. She vocalized understanding all questions answered. The patient is to continue with routine care in your office [facility], the CDC, and other organizations representing maternal and public health professionals recommend that , , and lactating people and those considering receive the COVID-19 vaccination. Vaccination is the best method to reduce maternal and complications of SARS-CoV-2 infection. This document was created with [employer] technology. Though I make every effort to review the dictation as it is transcribed, on occasion the spoken word can be misinterpreted by the technology leading to inappropriate words, phrases, or sentences. This note is addressed to the requesting provider as a consultation for clinical guidance. Specific medical abbreviations are occasionally used and those are generally approved by the [place]?Board of?Obstetrics and?Gynecology?as well as?Kenna s abbreviations. The above plan of care was based solely on the diagnoses for which a consultation was requested. ?More frequent testing may be indicated based on her other medical/obstetrical conditions. The management of other or medical conditions is beyond the scope of requested consultation and will continue to be followed by the primary reading intervention teacher or primary care provider. Thank you for [...] procedures Referring and communicating with other health adult day care worker (not separately reported) Documenting clinical information in the electronic or other health record Independently interpreting results (not separately reported) and communicating results to the patient/family/caregiver Care coordination (not separately reported) documented in this encounter [facility] 04-12-2024 History of Presen t illness Narrative [...] ANABELLA Gleason documented in this encounter [facility] 03-15-2024 History of Presen t illness Narrative [...] Diagnosis Date Anxiety Asthma (CMS/HCC) Chlamydia Depression ([facility]) History of miscarriage Iron deficiency anemia SAB (spontaneous ) UTI (urinary tract infection) HISTORY PAST MEDICAL HISTORY SOCIAL HISTORY Past Medical History: Diagnosis Date Anxiety Asthma (CMS/HCC) Chlamydia Depression (CMS/[facility]) History of miscarriage Iron deficiency anemia SAB [...] nursing note reviewed. Exam conducted with a public works technician present. Vitals: Estimated body mass index is [...] Choi DO documented in this encounter [facility] 02-06-2024 History of Presen t illness Narrative Pt here for Feraheme infusion. Infusion complete without incident. Pt d/c'd in stable condition. Returns 04-01-24 for MD f/u. documented in this encounter [facility] 01-29-2024 History of Presen t illness Narrative [...] Past Medical History: Diagnosis Date Anxiety Asthma ([facility]) Chlamydia Depression ([facility]) History of miscarriage Iron deficiency anemia SAB (spontaneous ) UTI (urinary tract infection) HISTORY PAST MEDICAL HISTORY SOCIAL HISTORY Past Medical History: Diagnosis Date Anxiety Asthma ([facility]) Chlamydia Depression ([facility]) History of miscarriage Iron deficiency anemia SAB [...] nursing note reviewed. Exam conducted with a public works technician present. Vitals: Estimated body mass index is [...] or undercooked meat, and stay away from [facility]. Patient has been consulted regarding any [...] Choi DO documented in this encounter [facility] 09-08-2023 Miscellaneous Notes Care Coordination Outreach performed to coordinate overdue appointments, testing, and/or follow-up care: Yes Audit/Outreach Date: September 08, 2023 Reason: Well Person Method: Telephone and MyChart Outreach Attempt: First Outcome: Left Message Next PCP Appointment: N/A Tests/Referrals Pended: N/A Resources/Education Provided: Additional Comments: documented in this encounter [facility] 09-08-2023 Telephone encounter Note Care Coordination Outreach performed to coordinate overdue appointments, testing, and/or follow-up care: Yes Audit/Outreach Date: September 08, 2023 Reason: Well Person Method: Telephone and MyChart Outreach Attempt: First Outcome: Left Message Next PCP Appointment: N/A Tests/Referrals Pended: N/A Resources/Education Provided: Additional Comments: [facility] Evaluation note Diagnosis Second trimester state, incidental 17 weeks gestation of UTI symptoms [facility] Bacterial vaginosis- Primary Unspecified vaginitis and vulvovaginitis 23 weeks gestation of Second trimester state, incidental Diabetes mellitus screening Screening for diabetes mellitus [facility] Diagnosis 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, other fetus- Primary Placenta previa in second trimester Suspected problem with placenta not found Suspected placental problem not found History of delivery, currently with history of pre-term labor History of drug overdose [facility] 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, other fetus- Primary Placenta previa in second trimester Suspected problem with placenta not found Suspected placental problem not found History of delivery, currently with history of pre-term labor History of drug overdose History of placental abruption Anxiety and depression 26 weeks gestation of [facility] Diagnosis 27 weeks gestation of Second trimester state, incidental Urinary tract infection without hematuria, site unspecified [facility] Diagnosis First trimester state, incidental Nausea Nausea alone Urinary tract infection without hematuria, site unspecified [facility] Diagnosis 29 weeks gestation of Third trimester state, incidental SGA (small for gestational age) [id number] without mention of malnutrition, unspecified (weight) [facility] Diagnosis 31 weeks gestation of Second trimester state, incidental Right club foot Premature uterine contractions, antepartum Unspecified abnormality of labor, antepartum [facility] Diagnosis Iron deficiency anemia, unspecified iron deficiency anemia type- Primary [facility] Diagnosis Third trimester state, incidental 33 weeks gestation of Urinary tract infection with hematuria, site unspecified documented in this encounter [facility] HealthcareInstructionsNot on filedocumented in this encounterPro[facility] SystemInstructionsNot on filedocumented in this encounterProMediwi Health SystemInstructionsNot on filedocumented in this encounterProMediBarber[facility] SystemReason for visit Narrative* Treatment Plan and Therapy Plan (Routine) - Authorized Specialty Diagnoses / Procedures Referred By Curtis t Referred To Contact Diagnoses Iron deficiency anemia, unspecified iron deficiency anemia type Procedures ND FERUMOXYTOL, NON-ESRD Jossue Swain MD [address] [place] [address] [facility] [place] [address] [place] [address] Referral ID Status Reason Start Date Expiration Date V isits Requested Visits Authorized [id number] Authorized 01/14/2024 04/15/2024 10 10 [facility] Summary Purpose Family History No Family History Records FoundNo Family History Records FoundNo Family History Records FoundNo Family History Records FoundNo Family History Records FoundNo Family History Records FoundNo Family History Records Found Advance Directives No Advanced Directives Records FoundDocuments on File Type Date Recorded Patient Fine Hairer Expl anation ACP-Advance Directive ACP-Power of Snow Groomer Date Activated Date Inactivated Comments 04/09/2024 7:33 [...] content) DATE CREATED AUTHOR 08/08/2021 [facility] DATE CREATED AUTHOR AUTHOR'S ORGANIZ ATION 03/23/2023 [facility] DATE CREATED AUTHOR AUTHOR'S ORGANIZ ATION 12/11/2023 [facility] DATE CREATED AUTHOR AUTHOR'S ORGANIZ ATION 02/08/2024 [facility] DATE CREATED AUTHOR AUTHOR'S ORGANIZ ATION 06/08/2024 [facility] DATE CREATED AUTHOR AUTHOR'S ORGANIZ ATION 06/24/2024 [facility] DATE CREATED AUTHOR AUTHOR'S ORGANIZ ATION 06/25/2024 [facility] dical Specialists EPIC Care Teams (unrecognized sec tion and content) Lean Manager Relationship Specialty Start Date End Date Benson Dial MD PCP - General 10/08/12 Lean Manager Relationship Specialty Start Date End Date Benson Dial MD PCP - General 10/08/12 Lean Manager Relationship Specialty Start Date End Date Vinicius Quintana MD [address] [place] [address] PCP - General Family Medicine 03/03/23 Lean Manager Relationship Specialty Start Date End Date Vinicius Quintana MD [address] [place] [address] PCP - General Family Medicine 03/03/23 Lean Manager Relationship Specialty Start Date End Date Vinicius Quintana MD [address] [place] [address] PCP - General Family Medicine 03/03/23 Lean Manager Relationship Specialty Start Date End Date Vinicius Quintana MD [address] [place] [address] PCP - General Family Medicine 03/03/23 Lean Manager Relationship Specialty Start Date End Date Vinicius Quintana MD [address] [place] [address] PCP - General Family Medicine 03/03/23 Lean Manager Relationship Specialty Start Date End Date Vinicius Quintana MD [address] [place] [address] PCP - General Family Medicine 03/01/17 Lean Manager Relationship Specialty Start Date End Date Vinicius Quintana MD [address] [place] [address] PCP - General Family Medicine 03/01/17 Lean Manager Relationship Specialty Start Date End Date Vinicius Quintana MD [address] [place] [address] PCP - General Family Medicine 03/03/23 Lean Manager Relationship Specialty Start Date End Date Vinicius Quintana MD [address] [place] [address] PCP - General Family Medicine 03/03/23 Lean Manager Relationship Specialty Start Date End Date Vinicius Quintnaa MD [address] [place] [address] PCP - General Family Medicine 03/03/23 Lean Manager Relationship Specialty Start Date End Date Vinicius Quintana MD [address] [place] [address] PCP - General Family Medicine 03/03/23 Lean Manager Relationship Specialty Start Date End Date Vinicius Quintana MD [address] [place] [address] PCP - General Family Medicine 03/03/23 Lean Manager Relationship Specialty Start Date End Date Vinicius Quintana MD [address] [place] [address] PCP - General Family Medicine 03/03/23 Lean Manager Relationship Specialty Start Date End Date Benson Dial MD PCP - General 10/08/12 Lean Manager Relationship Specialty Start Date End Date Vinicius Quintana MD [address] [place] [address] PCP - [facility] 03/01/17 Lean Manager Relationship Specialty Start Date End Date Vinicius Quintana MD [address] [place], [place] [id number] PCP - [facility] 03/03/23 Lean Manager Relationship Specialty Start Date End Date Vinicius Quintana MD [address] [place], [place] [id number] PCP - [facility] 03/03/23 Reason for Visit (unrecogniz ed section and [...] BE BASED ON THE PRIMARY CLINICAL RECORDS. [facility] [employer] [facility]. provides no warranty or guarantee of the accuracy or completeness of information in this document.
== END 2024-07-08 20:20 | disposition home or self-care (01) ==
LOC: LAB 20:19
PROVIDERS: PCP Family Medicine; Visit Provider Obstetrics & Gynecology
DX: Z34.93 Encounter for supervision of normal pregnancy, unspecified, third trimester (principal); Z3A.35 35 weeks gestation of pregnancy
CPT/HCPCS: 36415

== ENCOUNTER 2024-07-09 00:14 | Outpatient (OUT) | payer OTHER, SELFPAY ==
--- OUTSIDE RECORDS SUMMARY | 2024-07-09 00:17 | XMS_ITS | CCD ---
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 Other and delivery including normal (20 [...] of ] 05-05-2024 Episodic Residual codes; unclassified (15 sources) Gestation period, 27 weeks; Translations: [27 [...] low weight; and growth retardation (1 source) Vlgrn-ewa-uhtpw baby; Translations: [ small for gestational age, [...] Like Symptoms Onset: 07-17-2023 Unclassified (1 source) OB Reminders Onset: 07-08-2024 07-08-2024 Urinary tract infections (6 sources) Urinary tract [...] 01-02-2024 Episodic Other aftercare (1 source) Other fpc (current) drug therapy; Translations: [Other 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 Ordering Physician: Shakir Choi D.O. Date of Service: 06/23/24 Procedure(s): US OB BPP w non-stress Accession Number(s): [id number] cc: VINICIUS QUINTANA ; Shakir Choi D.O. The [address] [address] Patient Name: HOMERO DE LEON MRN: [facility]:[id number] date: 1990 Sex: F Assigned [facility] Accession/Order Number: [id number] Exam Date: 06/23/2024 14:01 Report Date: 06/23/2024 [...] Signed By: 06/23/24 1430 DD/ 1427 TD/TT: Property Valuer: [facility] Radiology, Radiologist, MD - 06/23/2024 The [place] [id number] Ultrasound Report Signed Patient: HOMERO DE LEON MR#: [id number] : 1990 Acct:[id number] Age/Sex: 33 / F ADM Date: [facility]: Shakir Choi D.O. Ordering Physician: Shakir Choi D.O. Date of Service: 06/23/24 Procedure(s): US OB BPP w non-stress Accession Number(s): [id number] cc: VINICIUS QUINTANA ; Shakir Choi D.O. [place] [id number] Patient Name: HOMERO DE LEON MRN: [facility]:[id number] date: 1990 Sex: F Ass[facility] Accession/Order Number: [id number] Exam Date: 06/23/2024 14:01 Report Date: 06/23/2024 [...] Signed By: 06/23/24 1430 DD/ 1427 TD/TT: Property Valuer: [facility] Radiology Study observation (narrative) [facility] US OB BPP W NON-STRESS Ordered By: Radiologist Radiology on 06-23-2024 [facility] Work Phone: Urinalysis macro (dipstick) panel (U)on 06-23-2024 Bilirubin, UA Positive Negative - 4(70) +++ mg/dL [facility] Comment on above: small Blood, UA Positive Negative - 50 Papo/mcL [facility] Comment on above: trace Clarity, UA Clear [facility] Color, UA Sera [facility] Glucose, UA Negative Negative - 2000(110) ++++ mg/dL [facility] Interpretation and review of laboratory results Abnormal [facility] Ketones, UA Positive Negative - 160(16) ++++ mg/dL [facility] Comment on above: 15 Leukocytes, UA Positive Negative - 500+++ Akash/mcL [facility] Comment on above: large Nitrite, UA Positive Negative - Positive [facility] pH, UA 6.5 5 - 9 [facility] Protein, UA Positive Negative - 2000(20) ++++ mg/dL [facility] Comment on above: 100 Spec Grav, UA 1.025 1 - 1.03 [facility] Urobilinogen, UA 1.0 0.2 - 12 mg/dL [facility] CHLAMYDIA/GC BY PCRon 2024 CHLAMYDIA/GC BY PCR [...] are dependent on adequate specimen collection. Normal [facility] Comment on above: Performed By: #### 2 106-3 #### [facility] ([id number]) [address] [place] [address] 80754 DRUG SCREEN, URINEon 025 AMPHETAMINE/METHAMP Negative Normal NEG [facility] Comment on above: Result Comment: AMPH /METH screening cut off = 1000 ng/mL Performed By: #### 2 106-3 #### [facility] ([id number]) [address] [place] [address] 30999 BARBITURATES Negative Normal NEG [facility] Comment on above: Result Comment: Allison iturates screening cut off value = 200 ng/mL Performed By: #### 2 106-3 #### [facility] ([id number]) [address] [place] [address] 57258 BENZODIAZEPINES Negative Normal [facility] Comment on above: Result Comment: Dave odiazepines screening cut off value = 200 ng/mL Performed By: #### 2 106-3 #### [facility] ([id number]) [address] [place] [address] 13882 CANNABINOIDS Negative Normal NEG [facility] Comment on above: Result Comment: Eddie abinoids/THC screening cut off value = 50 ng/mL Performed By: #### 2 106-3 #### [facility] ([id number]) [address] [place] [address] 75288 COCAINE METABOLITE Negative Normal NEG [facility] Comment on above: Result Comment: Coca ine screening cut off value = 300 ng/mL Performed By: #### 2 106-3 #### [facility] ([id number]) [address] [place] [address] 48582 ECSTASY Negative Normal [facility] Comment on above: Result Comment: Ecst asy screening cut off value = 500 ng/mL This report is intended for use in clinical monitoring or management of patients. Performed By: #### 2 106-3 #### [facility] ([id number]) [address] [place] [address] 25964 METHADONE Negative Normal NEG [facility] Comment on above: Result Comment: Meth adone screening cut off value = 300 ng/mL. Performed By: #### 2 106-3 #### [facility] ([id number]) [address] [place] [address] 86184 OPIATES Negative Normal [facility] Comment on above: Result Comment: Opia victoria screening cut off value = 300 ng/mL NOTE: This test is used for the detection of codeine, hydrocodone (>1000 ng/mL), morphine and hydromorphone (>900 ng/mL) in urine. Performed By: #### 2 106-3 #### [facility] ([id number]) [address] [place] [address] 22660 OXYCODONE Negative Normal NEG [facility] Comment on above: Result Comment: Oxyc odone screening cut off value = 300 ng/mL NOTE: This test is used for the detection of oxycodone and oxymorphone in urine. Performed By: #### 2 106-3 #### [facility] ([id number]) [address] [place] [address] 60666 PHENCYCLIDINE Negative Normal NEG [facility] Comment on above: Result Comment: Phen cyclidine screening cut off value = 25 ng/mL Performed By: #### 2 106-3 #### [facility] ([id number]) [address] [place] [address] 31441 Fibronectin. Ql (Vag fl d)on 06-22-2024 FIBRONECTIN Positive Abnormal NEG [facility] Comment on above: Performed By: #### 2 106-3 #### [facility] ([id number]) [address] [place] [address] 08901 STREP B SCREEN CULTUREon S. agalactiae Org specific cx Ql (Vag+Rectum) CULTURE RESULTS POSITIVE FOR GROUP B STREPTOCOCCUS BY NUCLEIC ACID AMPLIFICATION : Group B streptococci remain universally susceptible to penicillin, ampicillin, and cefazolin. Resistance to clindamycin can occur. Please contact laboratory within 48 hr if clindamycin susceptibility testing is needed. Normal [facility] Comment on above: Performed By: #### 2 106-3 #### [facility] ([id number]) [address] [place] [address] 86415 URINALYSISon 06-22-2024 Bilirubin Ql (U) Negative Normal NEG [facility] Comment on above: Performed By: #### 2 106-3 #### [facility] ([id number]) [address] [place] [address], [place] [address] BLOOD/HGB MODERATE Abnormal NEG [facility] Comment on above: Performed By: #### 2 106-3 #### [facility] ([id number]) [address] [place] [address] 33698 Color (U) YELLOW Normal YELLOW [facility] Comment on above: Performed By: #### 2 106-3 #### [facility] ([id number]) [address] [place] [address] [place] [address] Glucose Ql (U) Negative Normal NEG [facility] Comment on above: Performed By: #### 2 106-3 #### [facility] ([id number]) [address] [place] [address] 53941 Ketones Ql (U) >80 Abnormal NEG [facility] Comment on above: Performed By: #### 2 106-3 #### [facility] ([id number]) [address] [place] [address] [place] [address] Leukocyte esterase Test strip Ql (U) Large Abnormal NEG [facility] Comment on above: Performed By: #### 2 106-3 #### [facility] ([id number]) [address] [place] [address] [place] [address] Nitrite Ql (U) Negative Normal NEG [facility] Comment on above: Performed By: #### 2 106-3 #### [facility] ([id number]) [address] [place] [address] [place] [address] pH (U) 7.0 [pH] Normal 5.0-8.5 [facility] Comment on above: Performed By: #### 2 106-3 #### [facility] ([id number]) [address] [place] [address] [place] [address] Protein Ql (U) >300 Abnormal NEG [facility] Comment on above: Performed By: #### 2 106-3 #### [facility] ([id number]) [address] [place] [address] 90342 R.B.CELLS 6 /hpf High 0-5 [facility] Comment on above: Performed By: #### 2 106-3 #### [facility] ([id number]) [address] [place] [address] 21751 Specific gravity (U) [Rel density] 1.025 Normal 1.003-1.035 [facility] Comment on above: Performed By: #### 2 106-3 #### [facility] ([id number]) [address] [place] [address] 33303 SQUAMOUS EPITHELIUM 5 /hpf Normal 0-5 [facility] Comment on above: Performed By: #### 2 106-3 #### [facility] ([id number]) [address] [place] [address] 16587 TURBIDITY CLEAR Normal CLEAR [facility] Comment on above: Performed By: #### 2 106-3 #### [facility] ([id number]) [address] [place] [address] 29631 Urobilinogen Qn (U) 1.0 {Migue'U}/dL Normal <1.1 [facility] Comment on above: Performed By: #### 2 106-3 #### [facility] ([id number]) [address] [place] [address] 90177 W.B.CELLS 11 /hpf High 0-5 [facility] Comment on above: Performed By: #### 2 106-3 #### [facility] ([id number]) [address] [place] [address] 56574 URINE CULTUREon 06-22-2024 Bacteria identified Cx Nom (U) CULTURE RESULTS <10,000 ORGANISMS/ML NORMAL URO GENITAL JOHN PAUL Normal [facility] Comment on above: Performed By: #### 2 106-3 #### [facility] ([id number]) [address] [place] [address] 29271 VAGINITIS PANEL PCRon 2024 VAGINITIS PANEL PCR [...] clinical presentation to determine patient diagnosis. Normal [facility] Comment on above: Performed By: #### 2 106-3 #### [facility] ([id number]) [address] [place] [address] 55589 Urinalysis macro (dipstick) panel (U)on 05-24-2024 Bilirubin, UA Negative Negative - 4(70) +++ mg/dL [facility] Blood, UA Positive Negative - 50 Papo/mcL [facility] Clarity, UA Clear [facility] Color, UA Yellow [facility] Glucose, UA Negative Negative - 2000(110) ++++ mg/dL [facility] Interpretation and review of laboratory results Abnormal [facility] Ketones, UA Negative Negative - 160(16) ++++ mg/dL [facility] Leukocytes, UA Negative Negative - 500+++ Akash/mcL [facility] Nitrite, UA Negative Negative - Positive [facility] pH, UA 7 5 - 9 [facility] Protein, UA Trace Negative - 2000(20) ++++ mg/dL [facility] Spec Grav, UA 1.02 1 - 1.03 [facility] Urobilinogen, UA 1.0 0.2 - 12 mg/dL [facility] COMPLETE BLOOD COUNT 05-13 Erythrocyte distribution width (RBC) [Ratio] 12.9 % Normal 11.5-15.0 [facility] Comment on above: Performed By: #### N UM #### [facility] ([id number]) [address] [place] [address] 64332 Hematocrit (Bld) [Volume fraction] 30.2 % Low 35-47 [facility] Comment on above: Performed By: #### N UM #### [facility] ([id number]) [address] [place] [address] 39687 Hemoglobin (Bld) [Mass/Vol] 10.4 g/dL Low 11.7-15.5 [facility] Comment on above: Performed By: #### N UM #### [facility] ([id number]) [address] [place] [address] 86988 MCH (RBC) [Entitic mass] 31.3 pg Normal 27-34 [facility] Comment on above: Performed By: #### N UM #### [facility] ([id number]) [address] [place] [address] 62571 MCHC (RBC) [Mass/Vol] 34.3 g/dL Normal 32-36 [facility] Comment on above: Performed By: #### N UM #### [facility] ([id number]) [address] [place] [address] 26343 MCV (RBC) [Entitic vol] 92 fL Normal 80-100 [facility] Comment on above: Performed By: #### N UM #### [facility] ([id number]) [address] [place] [address] 47001 Platelet mean volume (Bld) [Entitic vol] 8.7 fL Normal 7-12 [facility] Comment on above: Performed By: #### N UM #### [facility] ([id number]) [address] [place] [address] 33613 Platelets (Bld) [#/Vol] 285 10*3/uL Normal 150-450 [facility] Comment on above: Performed By: #### N UM #### [facility] ([id number]) [address] [place] [address] 33446 RBC COUNT 3.31 X10E12/L Low 3.80-5.20 [facility] Comment on above: Performed By: #### N UM #### [facility] ([id number]) [address] [place] [address] 43360 WBC (Bld) [#/Vol] 13.6 10*3/uL High 4.0-11.0 [facility] Comment on above: Performed By: #### N UM #### [facility] ([id number]) [address] [place] [address] 66224 COMPREHENSIVE METABOLIC PANE Baljit 05-13-2024 Albumin [Mass/Vol] 3.3 g/dL Normal 3.2-5.3 [facility] Comment on above: Performed By: #### N UM #### [facility] ([id number]) [address] [place] [address] 23699 ALP [Catalytic activity/Vol] 52 U/L Normal 39-130 [facility] Comment on above: Performed By: #### N UM #### [facility] ([id number]) [address] [place] [address] 83503 ALT [Catalytic activity/Vol] 10 U/L Normal 0-31 [facility] Comment on above: Performed By: #### N UM #### [facility] ([id number]) [address] [place] [address] 28133 Anion gap [Moles/Vol] 9 mmol/L Normal 5-15 [facility] Comment on above: Performed By: #### N UM #### [facility] ([id number]) [address] [place] [address] 61802 AST [Catalytic activity/Vol] 16 U/L Normal 0-41 [facility] Comment on above: Performed By: #### N UM #### [facility] ([id number]) [address] [place] [address] 95891 Bilirubin [Mass/Vol] 0.8 mg/dL Normal 0.3-1.2 [facility] Comment on above: Performed By: #### N UM #### [facility] ([id number]) [address] [place] [address] 43986 Calcium [Mass/Vol] 9.4 mg/dL Normal 8.5-10.5 [facility] Comment on above: Performed By: #### N UM #### [facility] ([id number]) [address] [place] [address] 52345 Chloride [Moles/Vol] 104 mmol/L Normal 98-109 [facility] Comment on above: Performed By: #### N UM #### [facility] ([id number]) [address] [place] [address] 05371 CO2 [Moles/Vol] 22 mmol/L Normal 22-32 [facility] Comment on above: Performed By: #### N UM #### [facility] ([id number]) [address] [place] [address] 29008 Creatinine [Mass/Vol] 0.63 mg/dL Normal 0.40-1.00 [facility] Comment on above: Result Comment: METH OD TRACEABLE TO IDMS STANDARD Performed By: #### N UM #### [facility] ([id number]) [address] [place] [address] 70302 eGFR (CKD-EPI) NON-RACE DEPENDENT >90 Normal >59 [facility] Comment on above: Result Comment: Reported eGFR is based on the CKD-EPI 2020 equation that does not use a race coefficient. Performed By: #### N UM #### [facility] ([id number]) [address] [place] [address] 58797 Glucose [Mass/Vol] 99 mg/dL Normal 65-99 [facility] Comment on above: Performed By: #### N UM #### [facility] ([id number]) [address] [place] [address] 56616 Potassium [Moles/Vol] 2.8 mmol/L Low 3.5-5.0 [facility] Comment on above: Performed By: #### N UM #### [facility] ([id number]) [address] [place] [address] 79331 Protein [Mass/Vol] 6.9 g/dL Normal 6.0-8.0 [facility] Comment on above: Performed By: #### N UM #### [facility] ([id number]) [address] [place] [address] 89933 Sodium [Moles/Vol] 135 mmol/L Normal 134-146 [facility] Comment on above: Performed By: #### N UM #### [facility] ([id number]) [address] [place] [address] 24979 Urea nitrogen [Mass/Vol] 7 mg/dL Normal 5-23 [facility] Comment on above: Performed By: #### N UM #### [facility] ([id number]) [address] [place] [address] 41543 Fibronectin. Ql (Vag fl d)on 05-13-2024 FIBRONECTIN Negative Normal NEG [facility] Comment on above: Performed By: #### N UM #### [facility] ([id number]) [address] [place] [address] 48894 STREP B SCREEN CULTUREon S. agalactiae Org specific cx Ql (Vag+Rectum) CULTURE RESULTS NEGATIVE FOR GROUP B STREPTOCOCCUS BY NUCLEIC ACID AMPLIFICATION Normal [facility] Comment on above: Performed By: #### 2 106-3 #### [facility] ([id number]) [address] [place] [address], [place] [address] URINALYSISon 05-13-2024 Bilirubin Ql (U) Negative Normal NEG [facility] Comment on above: Performed By: #### N UM #### [facility] ([id number]) [address] [place] [address], [place] [address] BLOOD/HGB Trace Abnormal NEG [facility] Comment on above: Performed By: #### N UM #### [facility] ([id number]) [address] [place] [address], [place] [address] Color (U) YELLOW Normal YELLOW [facility] Comment on above: Performed By: #### N UM #### [facility] ([id number]) [address] [place] [address], [place] [address] Glucose Ql (U) Negative Normal NEG [facility] Comment on above: Performed By: #### N UM #### [facility] ([id number]) [address] [place] [address], [place] [address] Ketones Ql (U) Negative Normal NEG [facility] Comment on above: Performed By: #### N UM #### [facility] ([id number]) [address] [place] [address], [place] [address] Leukocyte esterase Test strip Ql (U) Large Abnormal NEG [facility] Comment on above: Performed By: #### N UM #### [facility] ([id number]) [address] [place] [address], [place] [address] Nitrite Ql (U) Negative Normal NEG [facility] Comment on above: Performed By: #### N UM #### [facility] ([id number]) [address] [place] [address] 66719 pH (U) 7.0 [pH] Normal 5.0-8.5 [facility] Comment on above: Performed By: #### N UM #### [facility] ([id number]) [address] [place] [address] 81749 Protein Ql (U) Negative Normal NEG [facility] Comment on above: Performed By: #### N UM #### [facility] ([id number]) [address] [place] [address] 88932 R.B.CELLS 0 to 1 Normal 0-5 [facility] Comment on above: Performed By: #### N UM #### [facility] ([id number]) [address] [place] [address] 86164 Specific gravity (U) [Rel density] 1.010 Normal 1.003-1.035 [facility] Comment on above: Performed By: #### N UM #### [facility] ([id number]) [address] [place] [address] 22955 SQUAMOUS EPITHELIUM 5 /hpf Normal 0-5 [facility] Comment on above: Performed By: #### N UM #### [facility] ([id number]) [address] [place] [address] 63592 TURBIDITY CLEAR Normal CLEAR [facility] Comment on above: Performed By: #### N UM #### [facility] ([id number]) [address] [place] [address] 69378 Urobilinogen Qn (U) 0.2 {Migue'U}/dL Normal <1.1 [facility] Comment on above: Performed By: #### N UM #### [facility] ([id number]) [address] [place] [address] 06880 W.B.CELLS 5 /hpf Normal 0-5 [facility] Comment on above: Performed By: #### N #### [facility] ([id number]) [address] [facility], [place] [address] [place] BIOPHYSICAL PROFILE FET W O NSTon [...] Bueno MD on 05/13/2024 8:41 AM Normal [facility] No Panel Informationon 05-11 STAPHYLOCOCCUS EPIDERMIDIS, HAEMOLYTICUS, [...] Healthcare PROTEUS MIRABILIS, VULGARIS Not detected [facility] PSEUDOMONAS AERUGINOSA 0 NO MO Healthcare PSEUDOMONAS AERUGINOSA Not detected [facility] SERRATIA MARCESCENS 0 [facility] SERRATIA MARCESCENS Not detected [facility] STAPHYLOCOCCUS AUREUS 0 NOM S [facility] STAPHYLOCOCCUS AUREUS Not detected N [facility] STREPTOCOCCUS AGALACTIAE (GROUP B STREP) 0 [facility] STREPTOCOCCUS AGALACTIAE (GROUP B STREP) Not detected [facility] STREPTOCOCCUS PYOGENES (GROUP A STREP) 0 [facility] STREPTOCOCCUS PYOGENES (GROUP A STREP) Not detected [facility] Urinalysis macro (dipstick) panel (U)on 05-10-2024 Bilirubin, UA Negative Negative - 4(70) +++ mg/dL [facility] Blood, UA Negative Negative - 50 Papo/mcL [facility] Clarity, UA Clear [facility] Color, UA Dark Sera [facility] Glucose, UA Negative Negative - 1999(110) ++++ mg/dL [facility] Interpretation and review of laboratory results Abnormal [facility] Ketones, UA Negative Negative - 160(16) ++++ mg/dL [facility] Leukocytes, UA Negative Negative - 500+++ Akash/mcL [facility] Nitrite, UA Positive Negative - Positive [facility] pH, UA 7.5 5 - 9 [facility] Protein, UA Positive Negative - 1999(20) ++++ mg/dL [facility] Comment on above: 30mg/dL Spec Grav, UA 1.02 1 - 1.03 [facility] Urobilinogen, UA 1.0 0.2 - 12 mg/dL [facility] Urinalysis macro (dipstick) panel (U)on 04-12-2024 Bilirubin, UA Negative Negative - 4(70) +++ mg/dL [facility] Blood, UA Negative Negative - 50 Papo/mcL [facility] Clarity, UA Clear [facility] Color, UA Yellow [facility] Glucose, UA Negative Negative - 1999(110) ++++ mg/dL [facility] Interpretation and review of laboratory results Abnormal [facility] Ketones, UA Positive Negative - 160(16) ++++ mg/dL [facility] Leukocytes, UA Negative Negative - 500+++ Akash/mcL [facility] Nitrite, UA Negative Negative - Positive [facility] pH, UA 7 5 - 9 [facility] Protein, UA Negative Negative - 1999(20) ++++ mg/dL [facility] Spec Grav, UA 1.02 1 - 1.03 [facility] Urobilinogen, UA 0.2 0.2 - 12 mg/dL [facility] CHLAMYDIA/GC BY PCRon 2023 CHLAMYDIA/GC BY PCR [...] are dependent on adequate specimen collection. Normal [facility] Comment on above: Performed By: #### N UM #### [facility] ([id number]) [address] [place] [address] 72361 HIV 1+2 Ab+HIV1 p24 Ag IA Ql on 04-09-2024 HIV 1 and 2 Ab/Ag Screen Non-Reactive Normal NRCT [facility] Comment on above: Result Comment: This information [...] diagnoses. Performed By: #### N UM #### [facility] ([id number]) [address] [place] [address] T. pallidum IgG+IgM IA Ql (S )on 04-09-2024 Syphilis Total <0.2 Normal 0.0-0.8 [facility] Comment on above: Result Comment: NON REACTIVE No serologic evidence of infection to Treponema pallidum (syphilis). Repeat testing may be considered in patients with suspected acute or primary syphilis in 2 to 4 weeks. Performed By: #### N UM #### [facility] ([id number]) [address] [place] [address], [place] [address] URINALYSISon 04-09-2024 Bilirubin Ql (U) Negative Normal NEG [facility] Comment on above: Performed By: #### N UM #### [facility] ([id number]) [address] [place] [address] [place] [address] BLOOD/HGB Negative Normal NEG [facility] Comment on above: Performed By: #### N UM #### [facility] ([id number]) [address] [place] [address] 81583 Color (U) YELLOW Normal YELLOW [facility] Comment on above: Performed By: #### N UM #### [facility] ([id number]) [address] [place] [address] 24395 Glucose Ql (U) Negative Normal NEG [facility] Comment on above: Performed By: #### N UM #### [facility] ([id number]) [address] [place] [address] 20498 Ketones Ql (U) Trace Abnormal NEG [facility] Comment on above: Performed By: #### N UM #### [facility] ([id number]) [address] [place] [address] [place] [address] Leukocyte esterase Test strip Ql (U) Trace Abnormal NEG [facility] Comment on above: Performed By: #### N UM #### [facility] ([id number]) [address] [place] [address] 08912 Nitrite Ql (U) Negative Normal NEG [facility] Comment on above: Performed By: #### N UM #### [facility] ([id number]) [address] [place] [address] [place] [address] pH (U) 7.0 [pH] Normal 5.0-8.5 [facility] Comment on above: Performed By: #### N UM #### [facility] ([id number]) [address] [place] [address] 17743 Protein Ql (U) Trace Abnormal NEG [facility] Comment on above: Performed By: #### N UM #### [facility] ([id number]) [address] [place] [address] 06763 R.B.CELLS 2 /hpf Normal 0-5 [facility] Comment on above: Performed By: #### N UM #### [facility] ([id number]) [address] [place] [address] 95080 Specific gravity (U) [Rel density] 1.025 Normal 1.003-1.035 [facility] Comment on above: Performed By: #### N UM #### [facility] ([id number]) [address] [place] [address] 70000 SQUAMOUS EPITHELIUM 4 /hpf Normal 0-5 [facility] Comment on above: Performed By: #### N UM #### [facility] ([id number]) [address] [place] [address] [place] [address] TURBIDITY CLEAR Normal CLEAR [facility] Comment on above: Performed By: #### N UM #### [facility] ([id number]) [address] [place] [address] 49179 Urobilinogen Qn (U) 0.2 {Migue'U}/dL Normal <1.1 [facility] Comment on above: Performed By: #### N UM #### [facility] ([id number]) [address] [place] [address] [place] [address] W.B.CELLS 3 /hpf Normal 0-5 [facility] Comment on above: Performed By: #### N UM #### [facility] ([id number]) [address] [facility], [place] [address] No Panel Informationon 04-06 Interpretation and review of laboratory results Abnormal [facility] UA (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 YELLOW YELLOW [facility] GLUCOSE URINE UA Negative NEGATIVE mg/dL [facility] Ketones Ql (U) Negative NEGATIVE mg/dL [facility] Leukocyte esterase Test strip Ql (U) SMALL Abnormal NEGATIVE [facility] NITRITE URINE Negative NEGATIVE [facility] pH (U) 7.0 [pH] 5.0 - 9.0 [facility] PROTEIN URINE Negative NEG/TRACE mg/dL [facility] SPECIFIC GRAVITY URINE 1.010 1.005 - 1.025 [facility] URINE MICROSCOPIC INDICATED YES [facility] UROBILINOGEN URINE 1.0 EU/dL 0.2 - 1.0 EU/dL [facility] URINE MICROSCOPIC ONLYon 04-06-2024 BACTERIA URINE TRACE Abnormal NONE SEEN #/HPF [facility] CAST SEEN? NONE SEEN NONE SEEN #/LPF [facility] CRYSTALS SEEN? None Seen None Seen #/HPF [facility] MUCUS URINE NONE SEEN NONE SEEN [facility] SQUAMOUS EPITHELIAL CELL URINE FEW Abnormal NONE/RARE #/LPF [facility] RBC 0-2 [facility] WBC 2-5 Abnormal NONE SEEN #/HPF [facility] URINE CULTURE INDICATED YES [facility] Urinalysis macro (dipstick) panel (U)on 03-15-2024 Bilirubin, UA Negative Negative - 4(70) +++ mg/dL [facility] Blood, UA Negative Negative - 50 Papo/mcL [facility] Clarity, UA Clear [facility] Color, UA Yellow [facility] Glucose, UA Negative Negative - 1999(110) ++++ mg/dL [facility] Interpretation and review of laboratory results Abnormal [facility] Ketones, UA Positive Negative - 160(16) ++++ mg/dL [facility] Leukocytes, UA Positive Negative - 500+++ Akash/mcL [facility] Nitrite, UA Positive Negative - Positive [facility] pH, UA 7 5 - 9 [facility] Protein, UA Positive Negative - 1999(20) ++++ mg/dL [facility] Spec Grav, UA 1.02 1 - 1.03 [facility] Urobilinogen, UA 1.0 0.2 - 12 mg/dL [facility] CHLAMYDIA/GC BY PCRon 2023 CHLAMYDIA/GC BY [...] are dependent on adequate specimen collection. Normal [facility] Comment on above: Performed By: #### C GS #### [facility] ([id number]) [address] [place] [address] [facility] ([id number]) [address] [place] [address], [address] [place] [address] HCG ( test) Ql (U)o n 02-26-2024 Beta HCG ( test) Ql (U) Positive Abnormal NEG [facility] Comment on above: Performed By: #### 2 106-3 #### [facility] ([id number]) [address] [place] [address] 45779 URINE CULTUREon 02-26-2024 Bacteria identified Cx Nom [...] TOBRAMYCIN S <=1 F TRIMETH/SULFAMETHOXA ZOLE S <=/19 F Susceptible [facility] Comment on above: Performed By: #### N UM #### [facility] ([id number]) [address] [place] [address]66[address] URN MACROSCOPIC NURon 2023 BILIRUBIN ALEKSANDRA Negative Normal NEG [facility] Comment on above: Performed By: #### N UM #### [facility] ([id number]) [address] [place] [address] 81723 BLOOD/HGB ALEKSANDRA Trace Abnormal NEG [facility] Comment on above: Performed By: #### N UM #### [facility] ([id number]) [address] [place] [address] 89260 GLUCOSE ALEKSANDRA Negative Normal NEG [facility] Comment on above: Performed By: #### N UM #### [facility] ([id number]) [address] [place] [address] 18183 KETONES ALEKSANDRA 80 mg/dL Abnormal NEG [facility] Comment on above: Performed By: #### N UM #### [facility] ([id number]) [address] [place] [address] 93351 LEUKOCYTE ESTERASE ALEKSANDRA Negative Normal NEG Pr [facility] Comment on above: Performed By: #### N UM #### [facility] ([id number]) [address] [place] [address] 37470 NITRITE ALEKSANDRA Negative Normal NEG [facility] Comment on above: Performed By: #### N UM #### [facility] ([id number]) [address] [place] [address] 62555 PH ALEKSANDRA 6.0 Normal 5.0-8.5 [facility] Comment on above: Performed By: #### N UM #### [facility] ([id number]) [address] [place] [address] 59500 PROTEIN ALEKSANDRA >=300 Abnormal NEG [facility] Comment on above: Performed By: #### N UM #### [facility] ([id number]) [address] [place] [address] SPECIFIC GRAVITY ALEKSANDRA >=1.030 Normal 1.003-1.035 [facility] Comment on above: Performed By: #### N UM #### [facility] ([id number]) [address] [place] [address] 47209 UROBILINOGEN ALEKSANDRA 1.0 eu/dL Normal <1.1 [facility] Comment on above: Performed By: #### N UM #### [facility] ([id number]) [address] [place] [address] 91732 VAGINITIS PANEL PCRon 2023 VAGINITIS PANEL PCR [...] clinical presentation to determine patient diagnosis. Normal [facility] Comment on above: Performed By: #### N UM #### [facility] ([id number]) [address] [place] [address] 93196 URETHRITIS/DISCHARGE PLUS VA GINITIS (HTRX)on 01-31-2024 ATOPOBIUM VAGINAE 20.240 Abnormal [facility] ATOPOBIUM VAGINAE Detected Abnormal [facility] BVAB 2,3 (BACTERIAL VAGINOSIS ASSOCIATED BACTERIA 2, 3); MOBILUNCUS SPP 14.521 Abnormal [facility] BVAB 2,3 (BACTERIAL VAGINOSIS ASSOCIATED BACTERIA 2, 3); MOBILUNCUS SPP Detected Abnormal [facility] OZZIE ALBICANS, PARAPSILOSIS, TROPICALIS 0.000 [facility] OZZIE ALBICANS, PARAPSILOSIS, TROPICALIS Not detected [facility] OZZIE GLABRATA 0.000 [facility] OZZIE GLABRATA Not detected [facility] OZZIE KRUSEI 0.000 [facility] OZZIE KRUSEI Not detected [facility] CHLAMYDIA TRACHOMATIS 0.000 [facility] CHLAMYDIA TRACHOMATIS Not detected N [facility] ERMB, C; MEFA 22.470 Abnormal [facility] ERMB, C; MEFA Detected Abnormal [facility] GARDNERELLA VAGINALIS 25.182 Abnormal [facility] GARDNERELLA VAGINALIS Detected Abnormal [facility] Interpretation and review of laboratory results Abnormal [facility] MEGASPHAERA (TYPES 1, 2) 21.331 Abnormal [facility] MEGASPHAERA (TYPES 1, 2) Detected Abnormal [facility] MYCOPLASMA GENITALIUM 0.000 [facility] MYCOPLASMA GENITALIUM Not detected N [facility] NEISSERIA GONORRHOEAE 0.000 [facility] NEISSERIA GONORRHOEAE Not detected N [facility] TET B, TET M 22.938 Abnormal [facility] TET B, TET M Detected Abnormal [facility] TRICHOMONAS VAGINALIS 0.000 [facility] TRICHOMONAS VAGINALIS Not detected N [facility] Urinalysis macro (dipstick) panel (U)on 01-29-2024 Bilirubin, UA Positive Negative - 4(70) +++ mg/dL [facility] Comment on above: small Blood, UA Negative Negative - 50 Papo/mcL [facility] Clarity, UA Cloudy [facility] Color, UA Yellow [facility] Glucose, UA Negative Negative - 1999(110) ++++ mg/dL [facility] Interpretation and review of laboratory results Abnormal [facility] Ketones, UA Positive Negative - 160(16) ++++ mg/dL [facility] Comment on above: trace Leukocytes, UA Negative Negative - 500+++ Akash/mcL [facility] Nitrite, UA Positive Negative - Positive [facility] pH, UA 6.0 5 - 9 [facility] Protein, UA Trace Negative - 1999(20) ++++ mg/dL [facility] Spec Grav, UA 1.030 1 - 1.03 [facility] Urobilinogen, UA 4.0 0.2 - 12 mg/dL [facility] ALL CBC WITH AUTO DIFFon BASOPHILS ABSOLUTE AUTO 0.0 [facility] Basophils/100 WBC (Bld) 0.3 % 0.2 - 2.0 % [facility] Eosinophils/100 WBC (Bld) 2.3 % 0.9 - 7.0 % [facility] Erythrocyte distribution width (RBC) [Ratio] 12.7 % 11.0 - 15.0 % [facility] Hematocrit (Bld) [Volume fraction] 31.8 % Low 36.0 - 48.0 % [facility] Hemoglobin (Bld) [Mass/Vol] 10.3 g/dL Low 12.0 - 16.0 g/dL [facility] IMMATURE GRANULOCYTES ABS AUTO 0.05 High [facility] Immature granulocytes/100 WBC (Bld) 0.4 % 0.0 - 0.5 % [facility] Interpretation and review of laboratory results Abnormal [facility] LYMPHOCYTES ABSOLUTE AUTO 2.4 [facility] Lymphocytes/100 WBC (Bld) 21.2 % 20.5 - 60.0 % [facility] MCH (RBC) [Entitic mass] 29.9 pg 26.7 - 34.0 pg [facility] MCHC (RBC) [Mass/Vol] 32.4 g/dL 29.9 - 35.2 g/dL [facility] MCV (RBC) [Entitic vol] 92.2 fL 81.0 - 99.0 fL [facility] MONOCYTES ABSOLUTE AUTO 0.8 [facility] Monocytes/100 WBC (Bld) 6.9 % 1.7 - 12.0 % [facility] NEUTROPHILS ABSOLUTE AUTO 8.0 High [facility] Neutrophils/100 WBC (Bld) 68.9 % 43.0 - 75.0 % [facility] Platelet mean volume (Bld) [Entitic vol] 10.9 fL 9.5 - 13.5 fL [facility] TBH EO # 0.3 [facility] TBH PLT 385 [facility] RBC 3.45 Low [facility] TB WBC 11.5 High [facility] ALL TYPE AND SCREENon 2023 ABO and Rh group Nom (Bld) Blood group B Rh(D) positive [facility] MLR HEMOGLOBIN A1Con 024 Glucose [Mass/Vol] 82 mg/dL [facility] HbA1c (Bld) [Mass fraction] 4.5 % 4.5 - 6.2 % [facility] Comment on above: ADA RECOMMENDED LIMI T 4.0 - 6.0 ADA THERAPEUTIC TARGET < 7.0 ACTION SUGGESTED > 7.0 [facility] CBC AND AUTO DIFFon 12-20-19 24 ABSOLUTE BASOPHIL 0.1 X10E9/L Normal 0.0-0.2 [facility] Comment on above: Performed By: #### Marco Antonio ATKINSON CMP, #### [facility] ([id number]) [address] [place] [address] 49661 ABSOLUTE NEUTROPHIL 11.7 X10E9/L High 1.5-6.6 [facility] Comment on above: Performed By: #### Marco Antonio ATKINSON CMP, #### [facility] ([id number]) [address] [place] [address] 65404 Basophils/100 WBC (Bld) 0.4 % Normal [facility] Comment on above: Performed By: #### Marco Antonio ATKINSON CMP, #### [facility] ([id number]) [address] [place] [address] 40330 Eosinophils (Bld) [#/Vol] 0.3 10*3/uL Normal 0.0-0.4 [facility] Comment on above: Performed By: #### Marco Antonio ATKINSON CMP, #### [facility] ([id number]) [address] [place] [address] 44897 Eosinophils/100 WBC (Bld) 1.6 % Normal [facility] Comment on above: Performed By: #### Marco Antonio ATKINSON CMP, #### [facility] ([id number]) [address] [place] [address] 63208 Erythrocyte distribution width (RBC) [Ratio] 13.0 % Normal 11.5-15.0 [facility] Comment on above: Performed By: #### C CEE ATKINSON, #### [facility] ([id number]) [address] [place] [address] 59358 Hematocrit (Bld) [Volume fraction] 33.1 % Low 35-47 [facility] Comment on above: Performed By: #### Marco Antonio ATKINSON CMP, #### [facility] ([id number]) [address] [place] [address] 42518 Hemoglobin (Bld) [Mass/Vol] 11.1 g/dL Low 11.7-15.5 [facility] Comment on above: Performed By: #### Marco Antonio ATKINSON CMP, #### [facility] ([id number]) [address] [place] [address] 99505 Lymphocytes (Bld) [#/Vol] 2.6 10*3/uL Normal 1.0-3.5 [facility] Comment on above: Performed By: #### Marco Antonio ATKINSON CMP, #### [facility] ([id number]) [address] [place] [address] 68559 Lymphocytes/100 WBC (Bld) 16.5 % Normal [facility] Comment on above: Performed By: #### Marco Antonio ATKINSON CMP, #### [facility] ([id number]) [address] [place] [address] 50270 MCH (RBC) [Entitic mass] 30.3 pg Normal 27-34 [facility] Comment on above: Performed By: #### Marco Antonio ATKINSON CMP, #### [facility] ([id number]) [address] [place] [address] 51058 MCHC (RBC) [Mass/Vol] 33.6 g/dL Normal 32-36 [facility] Comment on above: Performed By: #### Marco Antonio ATKINSON, CMP, #### [facility] ([id number]) [address] [place] [address] 49614 MCV (RBC) [Entitic vol] 90 fL Normal 80-100 [facility] Comment on above: Performed By: #### Marco Antonio ATKINSON CMP, #### [facility] ([id number]) [address] [place] [address] 02612 Monocytes (Bld) [#/Vol] 1.2 10*3/uL High 0-0.9 [facility] Comment on above: Performed By: #### Marco Antonio ATKINSON CMP, #### [facility] ([id number]) [address] [place] [address] 43535 Monocytes/100 WBC (Bld) 7.5 % Normal [facility] Comment on above: Performed By: #### Marco Antonio ATKINSON CMP, #### [facility] ([id number]) [address] [place] [address] 39581 Neutrophils/100 WBC (Bld) 74.0 % Normal [facility] Comment on above: Performed By: #### Marco Antonio ATKINSON, CMP, #### [facility] ([id number]) [address] [place] [address] 09199 Platelet mean volume (Bld) [Entitic vol] 9.1 fL Normal 7-12 [facility] Comment on above: Performed By: #### Marco Antonio ATKINSON, CMP, #### [facility] ([id number]) [address] [place] [address] 22003 Platelets (Bld) [#/Vol] 385 10*3/uL Normal 150-450 [facility] Comment on above: Performed By: #### Marco Antonio ATKINSON, CMP, #### [facility] ([id number]) [address] [place] [address] RBC COUNT 3.67 X10E12/L Low 3.80-5.20 [facility] Comment on above: Performed By: #### C BCA, CMP, #### [facility] ([id number]) [address] [place] [address] 28923 WBC (Bld) [#/Vol] 15.8 10*3/uL High 4.0-11.0 [facility] Comment on above: Performed By: #### C BCA, CMP, #### [facility] ([id number]) [address] [place] [address] 04045 COMPREHENSIVE METABOLIC PANE Baljit 12-20-2023 Albumin [Mass/Vol] 4.2 g/dL Normal 3.2-5.3 [facility] Comment on above: Performed By: #### C BCA, CMP, #### [facility] ([id number]) [address] [place] [address] 40878 ALP [Catalytic activity/Vol] 39 U/L Normal 39-130 [facility] Comment on above: Performed By: #### C BCA, CMP, #### [facility] ([id number]) [address] [place] [address] 60239 ALT [Catalytic activity/Vol] 14 U/L Normal 0-31 [facility] Comment on above: Performed By: #### C BCA, CMP, #### [facility] ([id number]) [address] [place] [address] 66310 Anion gap [Moles/Vol] 6 mmol/L Normal 5-15 [facility] Comment on above: Performed By: #### C BCA, CMP, #### [facility] ([id number]) [address] [place] [address] 84553 AST [Catalytic activity/Vol] 20 U/L Normal 0-41 [facility] Comment on above: Performed By: #### C CH[place] CMP, #### [facility] ([id number]) [address] [place] [address] 29196 Bilirubin [Mass/Vol] 0.6 mg/dL Normal 0.3-1.2 [facility] Comment on above: Performed By: #### C [place] CMP, #### [facility] ([id number]) [address] [place] [address] 50999 Calcium [Mass/Vol] 8.9 mg/dL Normal 8.5-10.5 [facility] Comment on above: Performed By: #### C [place], CMP, #### [facility] ([id number]) [address] [place] [address] 81029 Chloride [Moles/Vol] 104 mmol/L Normal 98-109 [facility] Comment on above: Performed By: #### C [place], CMP, #### [facility] ([id number]) [address] [place] [address] 11090 CO2 [Moles/Vol] 22 mmol/L Normal 22-32 [facility] Comment on above: Performed By: #### C [place] CMP, #### [facility] ([id number]) [address] [place] [address] 77510 Creatinine [Mass/Vol] 0.56 mg/dL Normal 0.40-1.00 [facility] Comment on above: Result Comment: METH OD TRACEABLE TO IDMS STANDARD Performed By: #### C [place] CMP, #### [facility] ([id number]) [address] [place] [address] 69290 eGFR (CKD-EPI) NON-RACE DEPENDENT >90 Normal >59 [facility] Comment on above: Result Comment: Reported eGFR is based on the CKD-EPI 2020 equation that does not use a race coefficient. Performed By: #### C [place] [facility], #### [facility] ([id number]) [address] [place] [address] 38648 Glucose [Mass/Vol] 112 mg/dL High 65-99 [facility] Comment on above: Performed By: #### C [place] [facility], #### [facility] ([id number]) [address] [place] [address] 35130 Potassium [Moles/Vol] 3.2 mmol/L Low 3.5-5.0 [facility] Comment on above: Performed By: #### C [place] [facility], #### [facility] ([id number]) [address] [place] [address] 87880 Protein [Mass/Vol] 7.6 g/dL Normal 6.0-8.0 [facility] Comment on above: Performed By: #### C [place] [facility], #### [facility] ([id number]) [address] [place] [address] 36083 Sodium [Moles/Vol] 132 mmol/L Low 134-146 [facility] Comment on above: Performed By: #### C [place] [facility], #### [facility] ([id number]) [address] [place] [address] 01077 Urea nitrogen [Mass/Vol] 9 mg/dL Normal 5-23 [facility] Comment on above: Performed By: #### C [place] [facility], #### [facility] ([id number]) [address] [place] [address] 87914 HCG ( test) Ql (U)o n 12-20-2023 Beta HCG ( test) Ql (U) Positive Abnormal NEG [facility] Comment on above: Performed By: #### 2 106-3 #### [facility] ([id number]) [address] [place] [address] 11614 HCG.beta subunit IA 3rd IS Q non 12-20-2023 [place] [address] m[IU]/mL Normal P [facility] Comment on above: Result Comment: NEW REFERENCE [...] nontrophoblastic neoplasms. Performed By: #### C BCA, [facility], [id number] #### [facility] ([id number]) [address] [place] [address] 46916 URINE CULTUREon 12-20-2023 Bacteria identified Cx Nom (U) CULTURE RESULTS NO GROWTH AT <1000 CFU/mL Normal [facility] Comment on above: Performed By: #### 6 30-4 #### [facility] ([id number]) [address] [facility], [address] [place] [address] URN MACROSCOPIC NURon 2023 BILIRUBIN ALEKSANDRA Negative Normal NEG [facility] Comment on above: Performed By: #### N UM #### [facility] ([id number]) [address] [place] [address] 10877 BLOOD/HGB ALEKSANDRA Trace Abnormal NEG [facility] Comment on above: Performed By: #### N UM #### [facility] ([id number]) [address] [place] [address] [place] [address] GLUCOSE ALEKSANDRA Negative Normal NEG [facility] Comment on above: Performed By: #### N UM #### [facility] ([id number]) [address] [place] [address] [place] [address] KETONES ALEKSANDRA Negative Normal NEG [facility] Comment on above: Performed By: #### N UM #### [facility] ([id number]) [address] [place] [address] [place] [address] LEUKOCYTE ESTERASE ALEKSANDRA Trace Abnormal NEG Pr [facility] Comment on above: Performed By: #### N UM #### [facility] ([id number]) [address] [place] [address] [place] [address] NITRITE ALEKSANDRA Negative Normal NEG [facility] Comment on above: Performed By: #### N UM #### [facility] ([id number]) [address] [place] [address] [place] [address] PH ALEKSANDRA 6.5 Normal 5.0-8.5 [facility] Comment on above: Performed By: #### N UM #### [facility] ([id number]) [address] [place] [address] [place] [address] PROTEIN ALEKSANDRA Negative Normal NEG [facility] Comment on above: Performed By: #### N UM #### [facility] ([id number]) [address] [place] [address] [place] [address] SPECIFIC GRAVITY ALEKSANDRA 1.010 Normal 1.003-1.035 [facility] Comment on above: Performed By: #### N UM #### [facility] ([id number]) [address] [place] [address] [place] [address] UROBILINOGEN ALEKSANDRA 1.0 eu/dL Normal <1.1 [facility] Comment on above: Performed By: #### N UM #### [facility] ([id number]) [address] [place] [address], [place] [address] Hgb Electrophoresison 2023 Hgb Elect.Interp. Normal Hb electrophoretic pattern. HbA = 97.2% HbA2 = 2.8% Normal Values Normal [facility] Comment on above: Result Comment: (Hem oglobin A= 96.8 to 97.8% Hemoglobin A2= 2.2 to 3.2%) Performed By: #### F EBC, HGBE, B12FOL #### [facility] [address] [place] [address] Electronic Health Records Specialist: Severino Jacobson MD #### ADELINE [place], YASHI #### [facility] [address] [place], [place] [id number] Electronic Health Records Specialist: Lukasz Puga MD Pathologist Review: ELECTRONICALLY SIGNED. AUTUMN MENDOZA M.D. [facility] Comment on above: Performed By: #### F EBC, HGBE, B12FOL #### [address] [address] Electronic Health Records Specialist: Severino Jacobson MD #### ADELINE [place], FERI #### [facility] [address] [place] [address] Electronic Health Records Specialist: Lukasz Puga MD Smear to Pathologiston 12-07 Smear to Pathologist ELECTRONICALLY SIGNED. MITA REGAN M.D. [facility] Comment on above: Performed By: #### P ATH #### [address] [address] Electronic Health Records Specialist: Severino Jacobson MD B12/Folate Panelon Cobalamin (Vitamin B12) [Mass/Vol] 717 pg/mL Normal 232-1245 [facility] Comment on above: Performed By: #### F EBC, HGBE, B12FOL #### [address] [address] Electronic Health Records Specialist: Severino Jacobson MD #### ADELINE [place], FERI #### [facility] [address] [place] [address] Electronic Health Records Specialist: Lukasz Puga MD Folic Acid 12.2 ng/mL Normal 4.8-24.2 [facility] Comment on above: Performed By: #### F EBC, HGBE, B12FOL #### [address] [address] Electronic Health Records Specialist: Severino Jacobson MD #### ADELINE [place], FERI #### [facility] [address] [place] [address] Electronic Health Records Specialist: Lukasz Puga MD CBC with Diffon 12-05-2023 Abs. Atypical Lymphs 0.14 k/uL Normal [facility] Comment on above: Performed By: #### F EBC, HGBE, B12FOL #### [address] [address] Electronic Health Records Specialist: Severino Jacobson MD #### VALENCIA, CDP, FERI #### [facility] [address] [place] [address] Electronic Health Records Specialist: Lukasz Puga MD Abs. Basophil 0.07 k/uL Normal 0.0-0.2 [facility] Comment on above: Performed By: #### F EBC, HGBE, B12FOL #### [address] [address] Electronic Health Records Specialist: Severino Jacobson MD #### RETCT, CDP, FERI #### [facility] [address] [place] [address] Electronic Health Records Specialist: Lukasz Puga MD Abs.Imm.Granulocyte 0.00 k/uL Normal 0.00-0.30 [facility] Comment on above: Performed By: #### F EBC, HGBE, B12FOL #### [address] [address] Electronic Health Records Specialist: Severino Jacobson MD #### RETCT, CDP, FERI #### [facility] [address] [place] [address] Electronic Health Records Specialist: Lukasz Puga MD Abs.Neutrophil (Seg) 2.80 k/uL Normal 1.8-7.7 [facility] Comment on above: Performed By: #### F EBC, HGBE, B12FOL #### [address] [address] Electronic Health Records Specialist: Severino Jacobson MD #### VALENCIA CDP, FERI #### [facility] [address] [place] [address] Electronic Health Records Specialist: Lukasz Puga MD Atypical Lymphs 2 % Normal [facility] Comment on above: Performed By: #### F EBC, HGBE, B12FOL #### [address] [address] Electronic Health Records Specialist: Severino Jacobson MD #### VALENCIA CDP, FERI #### [facility] [address] [place] [address] Electronic Health Records Specialist: Lukasz Puga MD Basophils/100 WBC (Bld) 1 % Normal [facility] Comment on above: Performed By: #### F EBC, HGBE, B12FOL #### [address] [address] Electronic Health Records Specialist: Severino Jacobson MD #### RETCT, CDP, FERI #### [facility] [address] [place] [address] Electronic Health Records Specialist: Lukasz Puga MD Eosinophils (Bld) [#/Vol] 0.07 10*3/uL Normal 0.0-0.4 [facility] Comment on above: Performed By: #### F EBC, HGBE, B12FOL #### [address] [address] Electronic Health Records Specialist: Severino Jacobson MD #### RETCT, CDP, FERI #### [facility] [address] [place] [address] Electronic Health Records Specialist: Lukasz Puga MD Eosinophils/100 WBC (Bld) 1 % Normal 1-4 [facility] Comment on above: Performed By: #### F EBC, HGBE, B12FOL #### [address] [address] Electronic Health Records Specialist: Severino Jacobson MD #### RETCT, CDP, FERI #### [facility] [address] [place] [address] Electronic Health Records Specialist: Lukasz Puga MD Immature granulocytes/100 WBC (Bld) 0 % Normal 0 [facility] Comment on above: Performed By: #### F EBC, HGBE, B12FOL #### [address] [address] Electronic Health Records Specialist: Severino Jacobson MD #### RETCT, CDP, FERI #### [facility] [address] [place] [address] Electronic Health Records Specialist: Lukasz Puga MD Lymphocytes (Bld) [#/Vol] 3.29 10*3/uL Normal 1.0-4.8 [facility] Comment on above: Performed By: #### F EBC, HGBE, B12FOL #### [address] [address] Electronic Health Records Specialist: Severino Jacobson MD #### RETCT, CDP, FERI #### [facility] [place] [address] Electronic Health Records Specialist: Lukasz Puga MD Lymphocytes/100 WBC (Bld) 47 % High 24-44 [facility] Comment on above: Performed By: #### F EBC, HGBE, B12FOL #### [address] [address] Electronic Health Records Specialist: Severino Jacobson MD #### RETCT, CDP, FERI #### [facility] [address] [place] [address] Electronic Health Records Specialist: Lukasz Puga MD Monocytes (Bld) [#/Vol] 0.63 10*3/uL Normal 0.2-0.8 [facility] Comment on above: Performed By: #### F EBC, HGBE, B12FOL #### [address] [address] Electronic Health Records Specialist: Severino Jacobson MD #### RETCT, CDP, FERI #### [facility] [address] [place] [address] Electronic Health Records Specialist: Lukasz Puga MD Monocytes/100 WBC (Bld) 9 % High 1-7 [facility] Comment on above: Performed By: #### F EBC, HGBE, B12FOL #### [address] [address] Electronic Health Records Specialist: Severino Jacobson MD #### RETCT, CDP, FERI #### [facility] [address] [place] [address] Electronic Health Records Specialist: Lukasz Puga MD Neutrophil (Seg) 40 % Normal 36-66 [facility] Comment on above: Performed By: #### F EBC, HGBE, B12FOL #### [address] [address] Electronic Health Records Specialist: Severino Jacobson MD #### RETCT, CDP, FERI #### [facility] [address] [place] [address] Electronic Health Records Specialist: Lukasz Puga MD Erythrocyte distribution width (RBC) [Ratio] 12.6 % Normal 11.8-14.4 [facility] Comment on above: Performed By: #### F EBC, HGBE, B12FOL #### [address] [address] Electronic Health Records Specialist: Severino Jacobson MD #### RETCT, CDP, FERI #### [facility] [address] [place] [address] Electronic Health Records Specialist: Lukasz Puga MD Hematocrit (Bld) [Volume fraction] 31.0 % Low 36.3-47.1 [facility] Comment on above: Performed By: #### F EBC, HGBE, B12FOL #### [address] [address] Electronic Health Records Specialist: Severino Jacobson MD #### RETCT, CDP, FERI #### [facility] [address] [place] [address] Electronic Health Records Specialist: Lukasz Puga MD Hemoglobin (Bld) [Mass/Vol] 9.9 g/dL Low 11.9-15.1 [facility] Comment on above: Performed By: #### F EBC, HGBE, B12FOL #### [address] [address] Electronic Health Records Specialist: Severino Jacobson MD #### RETCT, CDP, FERI #### [facility] [address] [place] [address] Electronic Health Records Specialist: Lukasz Puga MD MCH (RBC) [Entitic mass] 29.8 pg Normal 25.2-33.5 [facility] Comment on above: Performed By: #### F EBC, HGBE, B12FOL #### [address] [address] Electronic Health Records Specialist: Severino Jacobson MD #### RETCT, CDP, FERI #### [facility] [address] [place] [address] Electronic Health Records Specialist: Lukasz Puga MD MCHC (RBC) [Mass/Vol] 31.9 g/dL Normal 28.4-34.8 [facility] Comment on above: Performed By: #### F EBC, HGBE, B12FOL #### [address] [address] Electronic Health Records Specialist: Severino Jacobson MD #### RETCT, CDP, FERI #### [facility] [address] [place] [address] Electronic Health Records Specialist: Lukasz Puag MD MCV (RBC) [Entitic vol] 93.4 fL Normal 82.6-102.9 [facility] Comment on above: Performed By: #### F EBC, HGBE, B12FOL #### [address] [address] Electronic Health Records Specialist: Severino Jacobson MD #### RETCT, CDP, FERI #### [facility] [address] [place] [address] Electronic Health Records Specialist: Lukasz Puga MD NRBC Automated 0.0 per 100 WBC Normal 0.0 [facility] Comment on above: Performed By: #### F EBC, HGBE, B12FOL #### [address] [address] Electronic Health Records Specialist: Severino Jacobson MD #### RETCT, CDP, FERI #### [facility] [address] [place] [address] Electronic Health Records Specialist: Lukasz Puga MD Platelet mean volume (Bld) [Entitic vol] 9.9 fL Normal 8.1-13.5 [facility] Comment on above: Performed By: #### F EBC, HGBE, B12FOL #### [address] [address] Electronic Health Records Specialist: Severino Jacobson MD #### RETCT, CDP, FERI #### [facility] [address] [place] [address] Electronic Health Records Specialist: Lukasz Puga MD Platelets (Bld) [#/Vol] 296 10*3/uL Normal 138-453 [facility] Comment on above: Performed By: #### F EBC, HGBE, B12FOL #### [address] [address] Electronic Health Records Specialist: Severino Jacobson MD #### RETCT, CDP, FERI #### [facility] [address] [place] [address] Electronic Health Records Specialist: Lukasz Puga MD RBC (Bld) [#/Vol] 3.32 10*6/uL Low 3.95-5.11 [facility] Comment on above: Performed By: #### F EBC, HGBE, B12FOL #### [address] [address] Electronic Health Records Specialist: Severino Jacobson MD #### RETCT, CDP, FERI #### [facility] [address] [place] [address] Electronic Health Records Specialist: Lukasz Puga MD WBC (Bld) [#/Vol] 7.0 10*3/uL Normal 3.5-11.3 [facility] Comment on above: Performed By: #### F EBC, HGBE, B12FOL #### [address] [address] Electronic Health Records Specialist: Sveerino Jacobson MD #### RETCT, CDP, FERI #### [facility] [address] [place] [address] Electronic Health Records Specialist: Lukasz Puga MD Ferritinon 12-05-2023 Ferritin [Mass/Vol] 39 ng/mL Normal 13-150 [facility] Comment on above: Performed By: #### F EBC, HGBE, B12FOL #### [address] [address] Electronic Health Records Specialist: Severino Jacobson MD #### FINNCT, CDP, FERI #### [facility] [address] [place] [address] Electronic Health Records Specialist: Lukasz Puga MD Iron Binding Cap.on 12-05-19 24 % Fe Saturation 14 % Low 20-55 [facility] Comment on above: Performed By: #### F EBC, HGBE, B12FOL #### [address] [address] Electronic Health Records Specialist: Severino Jacobson MD #### RETCT, CDP, FERI #### [facility] [address] [place] [address] Electronic Health Records Specialist: Lukasz Puga MD Iron [Mass/Vol] 42 ug/dL Normal 37-145 [facility] Comment on above: Performed By: #### F EBC, HGBE, B12FOL #### [address] [address] Electronic Health Records Specialist: Severino Jacobson MD #### RETCT, CDP, FERI #### [facility] [address] [place] [address] Electronic Health Records Specialist: Lukasz Puga MD Total Fe Binding Cap 310 ug/dL Normal 250-450 [facility] Comment on above: Performed By: #### F EBC, HGBE, B12FOL #### [address] [address] Electronic Health Records Specialist: Severino Jacobson MD #### RETCT, CDP, FERI #### [facility] [address] [place] [address] Electronic Health Records Specialist: Lukasz Puga MD Unbound Fe Bind Cap 268 ug/dL Normal 112-347 [facility] Comment on above: Performed By: #### F EBC, HGBE, B12FOL #### [address] [address] Electronic Health Records Specialist: Severino Jacobson MD #### RETCT, CDP, FERI #### [facility] [address] [place] [address] Electronic Health Records Specialist: Lukasz Puga MD Retic Counton 12-05-2023 Absolute Retic 0.062 M/uL Normal 0.030-0.080 [facility] Comment on above: Performed By: #### F EBC, HGBE, B12FOL #### [address] [address] Electronic Health Records Specialist: Severino Jacobson MD #### RETCT, CDP, FERI #### [facility] [address] [place] [address] Electronic Health Records Specialist: Lukasz Puga MD IRF 9.6 % Normal 2.7-18.3 [facility] Comment on above: Performed By: #### F EBC, HGBE, B12FOL #### [address] [address] Electronic Health Records Specialist: Severino Jacobson MD #### RETCT, CDP, FERI #### [facility] [address] [place] [address] Electronic Health Records Specialist: Lukasz Puga MD Retic Count 1.8 % Normal 0.5-1.9 [facility] Comment on above: Performed By: #### F EBC, HGBE, B12FOL #### [address] [address] Electronic Health Records Specialist: Severino Jacobson MD #### RETCT, CDP, FERI #### [facility] [address] [place] [address] Electronic Health Records Specialist: Lukasz Puga MD Retic Hemoglobin 28.8 pg Normal 28.2-35.7 [facility] Comment on above: Performed By: #### F EBC, HGBE, B12FOL #### [address] [address] Electronic Health Records Specialist: Severino Jacobson MD #### RETCT, CDP, FERI #### [facility] [address] [place] [address] Electronic Health Records Specialist: Lukasz Puga MD Surgical Pathology Reporton 12-05-2023 Surgical Pathology Report (NOTE) [id number] [facility] ANATOMIC PATHOLOGY [address] [place] [id number] SURGICAL PATHOLOGY CONSULTATION Patient Name: HOMERO DE LEON MR#: [id number] Specimen #[id number] Procedures/Addenda PERIPHERAL BLOOD REPORT Date Ordered: 12/07/2023 Status: Signed Out Date Complete: 12/08/2023 By: Mita Regan M.D. Date Reported: 12/08/2023 INTERPRETATION Peripheral blood: - Normocytic normochromic anemia with unremarkable red blood cell morphology. - White blood cells with normal morphology. No blasts. - Platelets with unremarkable morphology. RESULTS-COMMENTS PERIPHERAL BLOOD STUDY CBC: Please see the electronic health record for CBC parameters ([id number], 12/05/2023, 13:35). PLATELETS: Platelets show normal morphology. LEUKOCYTES: White blood cells show normal morphology. No atypical lymphocytes. No dysplasia. There are no blasts. ERYTHROCYTES: Normocytic normochromic anemia. Red blood cells show normal morphology. Note: The electronic health record is reviewed. Mita Regan M.D. Source: A: Peripheral Blood Normal [facility] CBC with Diffon 11-06-2023 Abs. Basophil 0.04 k/uL Normal 0.00-0.20 [facility] Comment on above: Performed By: #### C MEGHA MIJARES, LIPRF #### [place] [address] Electronic Health Records Specialist: Severino Jacobson MD Abs.Imm.Granulocyte <0.03 Normal 0.00-0.30 [facility] Comment on above: Performed By: #### C MEGHA MIJARES, LIPRF #### [place] [address] Electronic Health Records Specialist: Severino Jacobson MD Abs.Neutrophil (Seg) 4.76 k/uL Normal 1.50-8.10 [facility] Comment on above: Performed By: #### C MEGHA MIJARES, LIPRF #### [facility] [employer] [address] [place] [address] Electronic Health Records Specialist: Severino Jacobson MD Basophils/100 WBC (Bld) 1 % Normal 0-2 [facility] Comment on above: Performed By: #### C MEGHA MIJARES, LIPRF #### [place] [address] Electronic Health Records Specialist: Severino Jacobson MD Eosinophils (Bld) [#/Vol] 0.24 10*3/uL Normal 0.00-0.44 [facility] Comment on above: Performed By: #### C DP, CP, LIPRF #### [place] [address] Electronic Health Records Specialist: Severino Jacobson MD Eosinophils/100 WBC (Bld) 3 % Normal 1-4 [facility] Comment on above: Performed By: #### C DP, CP, LIPRF #### [place] [address] Electronic Health Records Specialist: Severino Jacobson MD Erythrocyte distribution width (RBC) [Ratio] 12.3 % Normal 11.8-14.4 [facility] Comment on above: Performed By: #### C DP, CP, LIPRF #### [place] [address] Electronic Health Records Specialist: Severino Jacobson MD Hematocrit (Bld) [Volume fraction] 35.5 % Low 36.3-47.1 [facility] Comment on above: Performed By: #### C DP, CP, LIPRF #### [place] [address] Electronic Health Records Specialist: Severino Jacobson MD Hemoglobin (Bld) [Mass/Vol] 11.2 g/dL Low 11.9-15.1 [facility] Comment on above: Performed By: #### C DP, CP, LIPRF #### [place] [address] Electronic Health Records Specialist: Severino Jacobson MD Immature granulocytes/100 WBC (Bld) 0 % Normal 0 [facility] Comment on above: Performed By: #### C DP, CP, LIPRF #### [place] [address] Electronic Health Records Specialist: Severino Jacobson MD Lymphocytes (Bld) [#/Vol] 2.47 10*3/uL Normal 1.10-3.70 [facility] Comment on above: Performed By: #### C DP, CP, LIPRF #### [address] [address] Electronic Health Records Specialist: Severino Jacobson MD Lymphocytes/100 WBC (Bld) 31 % Normal 24-43 [facility] Comment on above: Performed By: #### C DP, CP, LIPRF #### [place] [address] Electronic Health Records Specialist: Severino Jacobson MD MCH (RBC) [Entitic mass] 29.6 pg Normal 25.2-33.5 [facility] Comment on above: Performed By: #### C DP, CP, LIPRF #### [place] [address] Electronic Health Records Specialist: Severino Jacobson MD MCHC (RBC) [Mass/Vol] 31.5 g/dL Normal 28.4-34.8 [facility] Comment on above: Performed By: #### C DP, CP, LIPRF #### [place] [address] Electronic Health Records Specialist: Severino Jacobson MD MCV (RBC) [Entitic vol] 93.9 fL Normal 82.6-102.9 [facility] Comment on above: Performed By: #### C DP, CP, LIPRF #### [place] [address] Electronic Health Records Specialist: Severino Jacobson MD Monocytes (Bld) [#/Vol] 0.56 10*3/uL Normal 0.10-1.20 [facility] Comment on above: Performed By: #### C DP, CP, LIPRF #### [place] [address] Electronic Health Records Specialist: Severino Jacobson MD Monocytes/100 WBC (Bld) 7 % Normal 3-12 [facility] Comment on above: Performed By: #### C DP, CP, LIPRF #### [address] [address] Electronic Health Records Specialist: Severino Jacobson MD Neutrophil (Seg) 58 % Normal 36-65 [facility] Comment on above: Performed By: #### C DP, CP, LIPRF #### [address] [address] Electronic Health Records Specialist: Severino Jacobson MD NRBC Automated 0.0 per 100 WBC Normal 0.0 [facility] Comment on above: Performed By: #### C DP, CP, LIPRF #### [address] [address] Electronic Health Records Specialist: Severino Jacobson MD Platelet mean volume (Bld) [Entitic vol] 10.5 fL Normal 8.1-13.5 [facility] Comment on above: Performed By: #### C DP, CP, LIPRF #### [address] [address] Electronic Health Records Specialist: Severino Jacobson MD Platelets (Bld) [#/Vol] 501 10*3/uL High 138-453 [facility] Comment on above: Performed By: #### C DP, CP, LIPRF #### [address] [address] Electronic Health Records Specialist: Severino Jacobson MD RBC (Bld) [#/Vol] 3.78 10*6/uL Low 3.95-5.11 [facility] Comment on above: Performed By: #### C DP, CP, LIPRF #### [address] [address] Electronic Health Records Specialist: Severino Jacobson MD WBC (Bld) [#/Vol] 8.1 10*3/uL Normal 3.5-11.3 [facility] Comment on above: Performed By: #### C DP, CP, LIPRF #### [address] [address] Electronic Health Records Specialist: Severino Jacobson MD Comp Metabolic Profon 2023 Albumin [Mass/Vol] 4.8 g/dL Normal 3.5-5.2 [facility] Comment on above: Performed By: #### C DP, CP, LIPRF #### [address] [address] Electronic Health Records Specialist: Severino Jacobson MD Albumin/Glob Ratio 2.0 Normal 1.0-2.5 [facility] Comment on above: Performed By: #### C DP, CP, LIPRF #### [facility] [employer] [address] [place] [address] Electronic Health Records Specialist: Severino Jacobson MD Alkaline Phos 43 U/L Normal 35-104 [facility] Comment on above: Performed By: #### C DP, CP, LIPRF #### [address] [address] Electronic Health Records Specialist: Severino Jacobson MD ALT [Catalytic activity/Vol] 14 U/L Normal 10-35 [facility] Comment on above: Performed By: #### C DP, CP, LIPRF #### [facility] [employer] [address] [place] [address] Electronic Health Records Specialist: Severino Jacobson MD Anion gap [Moles/Vol] 10 mmol/L Normal 9-16 [facility] Comment on above: Performed By: #### C DP, CP, LIPRF #### [facility] [employer] [address] [place] [address] Electronic Health Records Specialist: Severino Jacobson MD AST [Catalytic activity/Vol] 27 U/L Normal 10-35 [facility] Comment on above: Performed By: #### C DP, CP, LIPRF #### [facility] [employer] [address] [place] [address] Electronic Health Records Specialist: Severino Jacobson MD Bilirubin [Mass/Vol] 0.6 mg/dL Normal 0.00-1.20 [facility] Comment on above: Performed By: #### C MEGHA MIJARES, LIPRF #### [facility] [employer] [address] [place] [address] Electronic Health Records Specialist: Severino Jacobson MD Calcium [Mass/Vol] 9.5 mg/dL Normal 8.6-10.4 [facility] Comment on above: Performed By: #### C MEGHA MIJARES, LIPRF #### [address] [address] Electronic Health Records Specialist: Severino Jacobson MD Chloride [Moles/Vol] 103 mmol/L Normal 98-107 [facility] Comment on above: Performed By: #### C MEGHA MIJARES, LIPRF #### [address] [address] Electronic Health Records Specialist: Severino Jacobson MD CO2 [Moles/Vol] 26 mmol/L Normal 20-31 [facility] Comment on above: Performed By: #### C MEGHA MIJARES, LIPRF #### [facility] [employer] [address] [place] [address] Electronic Health Records Specialist: Severino Jacobson MD Creatinine [Mass/Vol] 0.8 mg/dL Normal 0.50-0.90 [facility] Comment on above: Performed By: #### C MEGHA MIJARES, LIPRF #### [address] [address] Electronic Health Records Specialist: Severino Jacobson MD GFR/1.73 sq M.predicted among non-blacks MDRD (S/P/Bld) [Vol rate/Area] mL/min/{1.73_m2} Normal >60 [facility] Comment on above: Result Comment: These [...] By: #### C MEGHA MIJARES, LIPRF #### [address] [address] Electronic Health Records Specialist: Severino Jacobson MD Glucose [Mass/Vol] 90 mg/dL Normal 74-99 [facility] Comment on above: Performed By: #### C DP CP, LIPRF #### [facility] [employer] [address] [place] [address] Electronic Health Records Specialist: Severino Jacobson MD Potassium [Moles/Vol] 3.9 mmol/L Normal 3.7-5.3 [facility] Comment on above: Performed By: #### C MEGHA MIJARES, LIPRF #### [address] [address] Electronic Health Records Specialist: Severino Jacobson MD Protein [Mass/Vol] 7.7 g/dL Normal 6.6-8.7 [facility] Comment on above: Performed By: #### C DYLLAN CP, LIPRF #### [address] [address] Electronic Health Records Specialist: Severino Jacobson MD Sodium [Moles/Vol] 139 mmol/L Normal 136-145 [facility] Comment on above: Performed By: #### C DP CP, LIPRF #### [facility] [employer] [address] [place] [address] Electronic Health Records Specialist: Severino Jacobson MD Urea nitrogen [Mass/Vol] 12 mg/dL Normal 6-20 [facility] Comment on above: Performed By: #### C DP, CP, LIPRF #### [facility] [employer] [address] [place] [address] Electronic Health Records Specialist: Severino Jacobson MD Lipid Prof, Fastingon 2023 Cholesterol [Mass/Vol] 178 mg/dL Normal 0-199 [facility] Comment on above: Result Comment: Cholesterol Guidelines: <200 Desirable 200-240 Borderline >240 Undesirable Performed By: #### C DP, CP, LIPRF #### [address] [address] Electronic Health Records Specialist: Severino Jacobson MD Cholesterol in HDL [Mass/Vol] 50 mg/dL Normal >40 [facility] Comment on above: Result Comment: HDL Guidelines: <40 Undesirable 40-59 Borderline >59 Desirable Performed By: #### C DP, CP, LIPRF #### [place] [address] Electronic Health Records Specialist: Severino Jacobson MD Cholesterol in LDL [Mass/Vol] 115 mg/dL High 0-100 [facility] Comment on above: Result Comment: LDL Guidelines: <100 Desirable 100-129 Near to/above Desirable 130-159 Borderline >159 Undesirable Direct (measured) LDL and calculated LDL are not interchangeable tests. Performed By: #### C DP, CP, LIPRF #### [address] [address] Electronic Health Records Specialist: Severino Jacobson MD Cholesterol in VLDL [Mass/Vol] 13 mg/dL Normal [facility] Comment on above: Performed By: #### C DP, CP, LIPRF #### [facility] [employer] [address] [place] [address] Electronic Health Records Specialist: Severino Jacobson MD Cholesterol.total/Chol esterol in HDL [Mass ratio] 4.0 {ratio} Normal [facility] Comment on above: Performed By: #### C DP, CP, LIPRF #### [address] [address] Electronic Health Records Specialist: eSverino Jacobson MD Triglyceride,Fasting 64 mg/dL Normal 0-149 [facility] Comment on above: Result Comment: Triglyceride Guidelines: <150 Desirable 150-199 Borderline 200-499 High >499 Very high Based on AHA Guidelines for fasting triglyceride, February 2012. Performed By: #### C DP CP, LIPRF #### [place] [address] Electronic Health Records Specialist: Severino Jacobson MD CBC with Diffon 09-02-2023 Abs. Basophil <0.03 Normal 0.00-0.20 [facility] Comment on above: Performed By: #### C DP LIPRF, CP #### [place] [address] Electronic Health Records Specialist: Severino Jacobson MD Abs.Imm.Granulocyte <0.03 Normal 0.00-0.30 [facility] Comment on above: Performed By: #### C DP LIPRF, CP #### [place] [address] Electronic Health Records Specialist: Severino Jacobson MD Abs.Neutrophil (Seg) 3.88 k/uL Normal 1.50-8.10 [facility] Comment on above: Performed By: #### C FANNIE MIJARES, CP #### [place] [address] Electronic Health Records Specialist: Severino Jacobson MD Basophils/100 WBC (Bld) 0 % Normal 0-2 [facility] Comment on above: Performed By: #### C DP LIPRF, CP #### [place] [address] Electronic Health Records Specialist: Severino Jacobson MD Eosinophils (Bld) [#/Vol] 0.18 10*3/uL Normal 0.00-0.44 [facility] Comment on above: Performed By: #### C DP LIPRF, CP #### [place] [address] Electronic Health Records Specialist: Severino Jacobson MD Eosinophils/100 WBC (Bld) 3 % Normal 1-4 [facility] Comment on above: Performed By: #### C FANNIE MIJARES, CP #### [address] [address] Electronic Health Records Specialist: Severino Jacobson MD Erythrocyte distribution width (RBC) [Ratio] 12.6 % Normal 11.8-14.4 [facility] Comment on above: Performed By: #### C DYLLAN LIPKOURTNEY, CP #### [address] [address] Electronic Health Records Specialist: Severino Jacobson MD Hematocrit (Bld) [Volume fraction] 34.6 % Low 36.3-47.1 [facility] Comment on above: Performed By: #### C FANNIE MIJARES, CP #### [facility] [employer] [address] [place] [address] Electronic Health Records Specialist: Severino Jacobson MD Hemoglobin (Bld) [Mass/Vol] 10.8 g/dL Low 11.9-15.1 [facility] Comment on above: Performed By: #### C FANNIE MIJARES, CP #### [address] [address] Electronic Health Records Specialist: Severino Jacobson MD Immature granulocytes/100 WBC (Bld) 0 % Normal 0 [facility] Comment on above: Performed By: #### C FANNIE MIJARES, CP #### [place] [address] Electronic Health Records Specialist: Severino Jacobson MD Lymphocytes (Bld) [#/Vol] 2.64 10*3/uL Normal 1.10-3.70 [facility] Comment on above: Performed By: #### C EKTA MIJARESRF, CP #### [facility] [employer] [address] [place] [address] Electronic Health Records Specialist: Severino Jacobson MD Lymphocytes/100 WBC (Bld) 37 % Normal 24-43 [facility] Comment on above: Performed By: #### C DP, LIPRF, CP #### [address] [address] Electronic Health Records Specialist: Severino Jacobson MD MCH (RBC) [Entitic mass] 29.7 pg Normal 25.2-33.5 [facility] Comment on above: Performed By: #### C DP, LIPRF, CP #### [place] [address] Electronic Health Records Specialist: Severino Jacobson MD MCHC (RBC) [Mass/Vol] 31.2 g/dL Normal 28.4-34.8 [facility] Comment on above: Performed By: #### C DP LIPRF, CP #### [address] [address] Electronic Health Records Specialist: Severino Jacobson MD MCV (RBC) [Entitic vol] 95.1 fL Normal 82.6-102.9 [facility] Comment on above: Performed By: #### C DP LIPRF, CP #### [place] [address] Electronic Health Records Specialist: Severino Jacobson MD Monocytes (Bld) [#/Vol] 0.41 10*3/uL Normal 0.10-1.20 [facility] Comment on above: Performed By: #### C DP LIPRF, CP #### [place] [address] Electronic Health Records Specialist: Severino Jacobson MD Monocytes/100 WBC (Bld) 6 % Normal 3-12 [facility] Comment on above: Performed By: #### C DP LIPRF, CP #### [facility] [employer] [address] [place] [address] Electronic Health Records Specialist: Severino Jacobson MD Neutrophil (Seg) 54 % Normal 36-65 [facility] Comment on above: Performed By: #### C DP LIPRF, CP #### [address] [address] Electronic Health Records Specialist: Severino Jacobson MD NRBC Automated 0.0 per 100 WBC Normal 0.0 [facility] Comment on above: Performed By: #### C FANNIE MIJARES, CP #### [address] [address] Electronic Health Records Specialist: Severino Jacobson MD Platelet mean volume (Bld) [Entitic vol] 10.7 fL Normal 8.1-13.5 [facility] Comment on above: Performed By: #### C FANNIE MIJARES, CP #### [address] [address] Electronic Health Records Specialist: Severino Jacobson MD Platelets (Bld) [#/Vol] 460 10*3/uL High 138-453 [facility] Comment on above: Performed By: #### C FANNIE MIJARES, CP #### [address] [address] Electronic Health Records Specialist: Severino Jacobson MD RBC (Bld) [#/Vol] 3.64 10*6/uL Low 3.95-5.11 [facility] Comment on above: Performed By: #### C FANNIE MIJARES, CP #### [address] [address] Electronic Health Records Specialist: Severino Jacobson MD WBC (Bld) [#/Vol] 7.2 10*3/uL Normal 3.5-11.3 [facility] Comment on above: Performed By: #### C FANNIE MIJARES, CP #### [address] [address] Electronic Health Records Specialist: Severino Jacobson MD Comp Metabolic Profon 2023 Albumin [Mass/Vol] 4.4 g/dL Normal 3.5-5.2 [facility] Comment on above: Performed By: #### C DP, LIPRF, CP #### [address] [address] Electronic Health Records Specialist: Severino Jacobson MD Albumin/Glob Ratio 2.0 Normal 1.0-2.5 [facility] Comment on above: Performed By: #### C DP, LIPRF, CP #### [address] [address] Electronic Health Records Specialist: Severino Jacobson MD Alkaline Phos 35 U/L Normal 35-104 [facility] Comment on above: Performed By: #### C DP, LIPRF, CP #### [address] [address] Electronic Health Records Specialist: Severino Jacobson MD ALT [Catalytic activity/Vol] 12 U/L Normal 10-35 [facility] Comment on above: Performed By: #### C DP, LIPRF, CP #### [address] [address] Electronic Health Records Specialist: Severino Jacobson MD Anion gap [Moles/Vol] 9 mmol/L Normal 9-16 [facility] Comment on above: Performed By: #### C DP, LIPRF, CP #### [address] [address] Electronic Health Records Specialist: Severino Jacobson MD AST [Catalytic activity/Vol] 25 U/L Normal 10-35 [facility] Comment on above: Performed By: #### C DP, LIPRF, CP #### [address] [address] Electronic Health Records Specialist: Severino Jacobson MD Bilirubin [Mass/Vol] 0.6 mg/dL Normal 0.00-1.20 [facility] Comment on above: Performed By: #### C DP, LIPRF, CP #### [facility] [employer] [address] [place] [address] Electronic Health Records Specialist: Severino Jacobson MD Calcium [Mass/Vol] 8.9 mg/dL Normal 8.6-10.4 [facility] Comment on above: Performed By: #### C FANNIE MIJARES CP #### [address] [address] Electronic Health Records Specialist: Severino Jacobson MD Chloride [Moles/Vol] 107 mmol/L Normal 98-107 [facility] Comment on above: Performed By: #### C FANNIE MIJARES, CP #### [facility] [employer] [address] [place] [address] Electronic Health Records Specialist: Severino Jacobson MD CO2 [Moles/Vol] 24 mmol/L Normal 20-31 [facility] Comment on above: Performed By: #### C FANNIE MIJARES CP #### [address] [address] Electronic Health Records Specialist: Severino Jacobson MD Creatinine [Mass/Vol] 0.7 mg/dL Normal 0.50-0.90 [facility] Comment on above: Performed By: #### C FANNIE MIJARES CP #### [address] [address] Electronic Health Records Specialist: Severino Jacobson MD GFR/1.73 sq M.predicted among non-blacks MDRD (S/P/Bld) [Vol rate/Area] mL/min/{1.73_m2} Normal >60 [facility] Comment on above: Result Comment: These [...] By: #### C FANNIE MIJARES, CP #### [address] [address] Electronic Health Records Specialist: Severino Jacobson MD Glucose [Mass/Vol] 97 mg/dL Normal 74-99 [facility] Comment on above: Performed By: #### C FANNIE MIJARES, CP #### [facility] [employer] [address] [place] [address] Electronic Health Records Specialist: Severino Jacobson MD Potassium [Moles/Vol] 4.0 mmol/L Normal 3.7-5.3 [facility] Comment on above: Performed By: #### C FANNIE MIJARES, CP #### [address] [address] Electronic Health Records Specialist: Severino Jacobson MD Protein [Mass/Vol] 7.3 g/dL Normal 6.6-8.7 [facility] Comment on above: Performed By: #### C FANNIE MIJARES, CP #### [facility] [employer] [address] [place] [address] Electronic Health Records Specialist: Severino Jacobson MD Sodium [Moles/Vol] 140 mmol/L Normal 136-145 [facility] Comment on above: Performed By: #### C FANNIE MIJARES, CP #### [facility] [employer] [address] [place] [address] Electronic Health Records Specialist: Severino Jacobson MD Urea nitrogen [Mass/Vol] 12 mg/dL Normal 6-20 [facility] Comment on above: Performed By: #### C DYLLAN LIPRF, CP #### [facility] [employer] [address] [place] [address] Electronic Health Records Specialist: Severino Jacobson MD Lipid Prof, Fastingon 2023 Cholesterol [Mass/Vol] 164 mg/dL Normal 0-199 [facility] Comment on above: Result Comment: Cholesterol Guidelines: <200 Desirable 200-240 Borderline >240 Undesirable Performed By: #### C FANNIE MIJARES, CP #### [facility] [employer] [address] [place] [address] Electronic Health Records Specialist: Severino Jacobson MD Cholesterol in HDL [Mass/Vol] 52 mg/dL Normal >40 [facility] Comment on above: Result Comment: HDL Guidelines: <40 Undesirable 40-59 Borderline >59 Desirable Performed By: #### C DP, LIPRF, CP #### [address] [address] Electronic Health Records Specialist: Severino Jacobson MD Cholesterol in LDL [Mass/Vol] 102 mg/dL High 0-100 [facility] Comment on above: Result Comment: LDL Guidelines: <100 Desirable 100-129 Near to/above Desirable 130-159 Borderline >159 Undesirable Direct (measured) LDL and calculated LDL are not interchangeable tests. Performed By: #### C DP, LIPRF, CP #### [address] [address] Electronic Health Records Specialist: Severino Jacobson MD Cholesterol in VLDL [Mass/Vol] 10 mg/dL Normal [facility] Comment on above: Performed By: #### C DYLLAN LIPRF, CP #### [facility] [employer] [address] [place] [address] Electronic Health Records Specialist: Severino Jacobson MD Cholesterol.total/Chol esterol in HDL [Mass ratio] 3.0 {ratio} Normal [facility] Comment on above: Performed By: #### C DYLLAN LIPRF, CP #### [facility] [employer] [address] [place] [address] Electronic Health Records Specialist: Severino Jacobson MD Triglyceride,Fasting 49 mg/dL Normal 0-149 [facility] Comment on above: Result Comment: Triglyceride Guidelines: <150 Desirable 150-199 Borderline 200-499 High >499 Very high Based on AHA Guidelines for fasting triglyceride, February 2012. Performed By: #### C DP, LIPRF, CP #### [facility] [employer] [address] [place] [address] Electronic Health Records Specialist: Severino Jacobson MD SARS/FLU A+B/RSV by NAAT/Gordy chavis 07-17-2023 SARS/FLU A+B/RSV by NAAT/Molecular FLU A [...] operators who are performing tests using either [employer] or [employer] systems and is limited to laboratories that [...] repeat. Fact Sheet for Healthcare Providers: https://www.fda.gov/ media/725222/downloa d Fact Sheet for Patients: https://www.fda.gov/ media/956099/downloa d [facility] Comment on above: Performed By: #### C OVFLR #### [facility] ([id number]) [address] [facility], [place] [address] QuantiFERON TBon 04-14-2023 Quanti Americo minus NIL >10.00 Normal [facility] Comment on above: Performed By: #### A QF #### [facility] [address] [place] [address] Electronic Health Records Specialist: Tai Lopez MD Quanti TB Gold Plus Negative Normal Negative [facility] Comment on above: Result Comment: (NOT [...] Mycobacterium tuberculosis Infection --- [place], 2010 (http://www.cdc.gov/mmwr/preview/mmwrhtml/uy9029n8.htm), for more information concerning test performance in low-prevalence populations and use in occupational screening. Performed By: #### A QF #### [facility] [address] [place] [address] Electronic Health Records Specialist: Tai Lopez MD Quanti TB1 minus NIL 0.10 IU/mL Normal 0.00-0.34 [facility] Comment on above: Performed By: #### A QF #### [facility] [address] [place] [address] Electronic Health Records Specialist: Tai Lopez MD Quanti TB2 minus NIL 0.10 IU/mL Normal 0.00-0.34 [facility] Comment on above: Performed By: #### A QF #### [facility] [address], [place] [id number] Electronic Health Records Specialist: Tai Lopez MD QuantiFERON NIL 0.03 IU/mL Normal [facility] Comment on above: Result Comment: (NOT E) Performed By: [facility] [address] [place] [address] Test Director: Royal Banda MD, PhD CLIA Number: [id number] Performed By: #### A QF #### [facility] [address] [place] [address] Electronic Health Records Specialist: Tai Lopez MD CBC with Diffon 04-11-2023 Abs. Basophil 0.05 k/uL Normal 0.00-0.20 [facility] Comment on above: Performed By: #### L IPRF, CDP, PHEP, CP, HIVCMB #### [place] [id number] Electronic Health Records Specialist: Severino Jacobson MD Abs.Imm.Granulocyte 0.03 k/uL Normal 0.00-0.30 [facility] Comment on above: Performed By: #### L IPRF, CDP, PHEP, CP, HIVCMB #### [place] [address] Electronic Health Records Specialist: Severino Jacobson MD Abs.Neutrophil (Seg) 4.20 k/uL Normal 1.50-8.10 [facility] Comment on above: Performed By: #### L IPRF, CDP, PHEP, CP, HIVCMB #### [address] [id number] Electronic Health Records Specialist: Severino Jacobson MD Basophils/100 WBC (Bld) 1 % Normal 0-2 [facility] Comment on above: Performed By: #### L IPRF, CDP, PHEP, CP, HIVCMB #### [address] [address] Electronic Health Records Specialist: Severino Jacobson MD Eosinophils (Bld) [#/Vol] 0.36 10*3/uL Normal 0.00-0.44 [facility] Comment on above: Performed By: #### L IPRF, CDP, PHEP, CP, HIVCMB #### [facility] [employer] [address] [place] [address] Electronic Health Records Specialist: Severino Jacobson MD Eosinophils/100 WBC (Bld) 5 % High 1-4 [facility] Comment on above: Performed By: #### L IPRF, CDP, PHEP, CP, HIVCMB #### [place] [address] Electronic Health Records Specialist: Severino Jacobson MD Erythrocyte distribution width (RBC) [Ratio] 11.6 % Low 11.8-14.4 [facility] Comment on above: Performed By: #### L IPRF, CDP, PHEP, CP, HIVCMB #### [address] [address] Electronic Health Records Specialist: Severino Jacobson MD Hematocrit (Bld) [Volume fraction] 34.3 % Low 36.3-47.1 [facility] Comment on above: Performed By: #### L IPRF, CDP, PHEP, CP, HIVCMB #### [facility] [employer] [address] [place] [address] Electronic Health Records Specialist: Severino Jacobson MD Hemoglobin (Bld) [Mass/Vol] 10.9 g/dL Low 11.9-15.1 [facility] Comment on above: Performed By: #### L IPRF, CDP, PHEP, CP, HIVCMB #### [facility] [employer] [address] [place] [address] Electronic Health Records Specialist: Severino Jacobson MD Immature granulocytes/100 WBC (Bld) 0 % Normal 0 [facility] Comment on above: Performed By: #### L IPRF, CDP, PHEP, CP, HIVCMB #### [address] [id number] Electronic Health Records Specialist: Severino Jacobson MD Lymphocytes (Bld) [#/Vol] 2.55 10*3/uL Normal 1.10-3.70 [facility] Comment on above: Performed By: #### L IPRF, CDP, PHEP, CP, HIVCMB #### [place] [address] Electronic Health Records Specialist: Severino Jacobson MD Lymphocytes/100 WBC (Bld) 33 % Normal 24-43 [facility] Comment on above: Performed By: #### L IPRF, CDP, PHEP, CP, HIVCMB #### [place] [address] Electronic Health Records Specialist: Severino Jacobson MD MCH (RBC) [Entitic mass] 30.1 pg Normal 25.2-33.5 [facility] Comment on above: Performed By: #### L IPRF, CDP, PHEP, CP, HIVCMB #### [address] [address] Electronic Health Records Specialist: Severino Jacobson MD MCHC (RBC) [Mass/Vol] 31.8 g/dL Normal 28.4-34.8 [facility] Comment on above: Performed By: #### L IPRF, CDP, PHEP, CP, HIVCMB #### [address] [address] Electronic Health Records Specialist: Severino Jacobson MD MCV (RBC) [Entitic vol] 94.8 fL Normal 82.6-102.9 [facility] Comment on above: Performed By: #### L IPRF, CDP, PHEP, CP, HIVCMB #### [address] [address] Electronic Health Records Specialist: Severino Jacobson MD Monocytes (Bld) [#/Vol] 0.55 10*3/uL Normal 0.10-1.20 [facility] Comment on above: Performed By: #### L IPRF, CDP, PHEP, CP, HIVCMB #### [address] [address] Electronic Health Records Specialist: Severino Jacobson MD Monocytes/100 WBC (Bld) 7 % Normal 3-12 [facility] Comment on above: Performed By: #### L IPRF, CDP, PHEP, CP, HIVCMB #### [address] [address] Electronic Health Records Specialist: Severino Jacobson MD Neutrophil (Seg) 54 % Normal 36-65 [facility] Comment on above: Performed By: #### L IPRF, CDP, PHEP, CP, HIVCMB #### [address] [address] Electronic Health Records Specialist: Severino Jacobson MD NRBC Automated 0.0 per 100 WBC Normal 0.0 [facility] Comment on above: Performed By: #### L IPRF, CDP, PHEP, CP, HIVCMB #### [address] [address] Electronic Health Records Specialist: Severino Jacobson MD Platelet mean volume (Bld) [Entitic vol] 11.0 fL Normal 8.1-13.5 [facility] Comment on above: Performed By: #### L IPRF, CDP, PHEP, CP, HIVCMB #### [address] [address] Electronic Health Records Specialist: Severino Jacobson MD Platelets (Bld) [#/Vol] 382 10*3/uL Normal 138-453 [facility] Comment on above: Performed By: #### L IPRF, CDP, PHEP, CP, HIVCMB #### [facility] [address] [place] [address] Electronic Health Records Specialist: Severino Jacobson MD RBC (d) [#/Vol] 3.62 10*6/uL Low 3.95-5.11 [facility] Comment on above: Performed By: #### L IPRF, CDP, PHEP, CP, HIVCMB #### [facility] [employer] [address] [place] [address] Electronic Health Records Specialist: Severino Jacobson MD WBC (Bld) [#/Vol] 7.7 10*3/uL Normal 3.5-11.3 [facility] Comment on above: Performed By: #### L IPRF, CDP, PHEP, CP, HIVCMB #### [facility] [employer] [address] [place] [address] Electronic Health Records Specialist: Severino Jacobson MD Comp Metabolic Profon 2022 Albumin [Mass/Vol] 4.4 g/dL Normal 3.5-5.2 [facility] Comment on above: Performed By: #### L IPRF, CDP, PHEP, CP, HIVCMB #### [facility] [employer] [address] [place] [address] Electronic Health Records Specialist: Severino Jacobson MD Albumin/Glob Ratio 2.0 Normal 1.0-2.5 [facility] Comment on above: Performed By: #### L IPRF, CDP, PHEP, CP, HIVCMB #### [facility] [employer] [address] [place] [address] Electronic Health Records Specialist: Severino Jacobson MD Alkaline Phos 39 U/L Normal 35-104 [facility] Comment on above: Performed By: #### L IPRF, CDP, PHEP, CP, HIVCMB #### [facility] [employer] [address] [place] [address] Electronic Health Records Specialist: Severino Jacobson MD ALT [Catalytic activity/Vol] 10 U/L Normal 10-35 [facility] Comment on above: Performed By: #### L IPRF, CDP, PHEP, CP, HIVCMB #### [address] [address] Electronic Health Records Specialist: Severino Jacobson MD Anion gap [Moles/Vol] 9 mmol/L Normal 9-16 [facility] Comment on above: Performed By: #### L IPRF, CDP, PHEP, CP, HIVCMB #### [address] [address] Electronic Health Records Specialist: Severino Jacobson MD AST [Catalytic activity/Vol] 22 U/L Normal 10-35 [facility] Comment on above: Performed By: #### L IPRF, CDP, PHEP, CP, HIVCMB #### [facility] [employer] [address] [place] [address] Electronic Health Records Specialist: Severino Jacobson MD Bilirubin [Mass/Vol] 0.3 mg/dL Normal 0.00-1.20 [facility] Comment on above: Performed By: #### L IPRF, CDP, PHEP, CP, HIVCMB #### [address] [address] Electronic Health Records Specialist: Severino Jacobson MD Calcium [Mass/Vol] 9.3 mg/dL Normal 8.6-10.4 [facility] Comment on above: Performed By: #### L IPRF, CDP, PHEP, CP, HIVCMB #### [facility] [employer] [address] [place] [address] Electronic Health Records Specialist: Severino Jacobson MD Chloride [Moles/Vol] 104 mmol/L Normal 98-107 [facility] Comment on above: Performed By: #### L IPRF, CDP, PHEP, CP, HIVCMB #### [facility] [address] [place] [address] Electronic Health Records Specialist: Severino Jacobson MD CO2 [Moles/Vol] 27 mmol/L Normal 20-31 [facility] Comment on above: Performed By: #### L IPRF, CDP, PHEP, CP, HIVCMB #### [address] [id number] Electronic Health Records Specialist: Severino Jacobson MD Creatinine [Mass/Vol] 0.7 mg/dL Normal 0.50-0.90 [facility] Comment on above: Performed By: #### L IPRF, CDP, PHEP, CP, HIVCMB #### [address] [address] Electronic Health Records Specialist: Severino Jacobson MD GFR/1.73 sq M.predicted among non-blacks MDRD (S/P/Bld) [Vol rate/Area] mL/min/{1.73_m2} Normal >60 [facility] Comment on above: Result Comment: These [...] L IPRF, CDP, PHEP, CP, HIVCMB #### [address] [address] Electronic Health Records Specialist: Severino Jacobson MD Glucose [Mass/Vol] 82 mg/dL Normal 74-99 [facility] Comment on above: Performed By: #### L IPRF, CDP, PHEP, CP, HIVCMB #### [address] [address] Electronic Health Records Specialist: Severino Jacobson MD Potassium [Moles/Vol] 3.8 mmol/L Normal 3.7-5.3 [facility] Comment on above: Performed By: #### L IPRF, CDP, PHEP, CP, HIVCMB #### [facility] [employer] [address] [place] [address] Electronic Health Records Specialist: Severino Jacobson MD Protein [Mass/Vol] 7.2 g/dL Normal 6.6-8.7 [facility] Comment on above: Performed By: #### L IPRF, CDP, PHEP, CP, HIVCMB #### [facility] [employer] [address] [place] [address] Electronic Health Records Specialist: Severino Jacobson MD Sodium [Moles/Vol] 140 mmol/L Normal 136-145 [facility] Comment on above: Performed By: #### L IPRF, CDP, PHEP, CP, HIVCMB #### [facility] [employer] [address] [place] [address] Electronic Health Records Specialist: Severino Jacobson MD Urea nitrogen [Mass/Vol] 14 mg/dL Normal 6-20 [facility] Comment on above: Performed By: #### L IPRF, CDP, PHEP, CP, HIVCMB #### [facility] [address] [place] [address] Electronic Health Records Specialist: Severino Jacobson MD HIV Ag/Abon 04-11-2023 HIV Ag/Ab Non-Reactive Normal NR [facility] Comment on above: Result Comment: No l aboratory evidence of HIV infection. If acute HIV infection is suspected, consider testing for HIV-1 RNA. Performed By: #### C DP, LIPRF, CP #### [facility] [employer] [address] [place] [address] Electronic Health Records Specialist: Severino Jacobson MD Hepatitis Acute [facility] 04-11 Hep A Ab,IgM Non-Reactive Normal NR [facility] Comment on above: Performed By: #### L IPRF, CDP, PHEP, CP, HIVCMB #### [address] [address] Electronic Health Records Specialist: Severino Jacobson MD Hep B Core Ab,IgM Non-Reactive Normal [facility] Comment on above: Performed By: #### L IPRF, CDP, PHEP, CP, HIVCMB #### [address] [address] Electronic Health Records Specialist: Severino Jacobson MD Hep B Surf Ag Non-Reactive Normal [facility] Comment on above: Performed By: #### L IPRF, CDP, PHEP, CP, HIVCMB #### [address] [address] Electronic Health Records Specialist: Severino Jacobson MD Hep C Ab Non-Reactive Normal [facility] Comment on above: Result Comment: [...] L IPRF, CDP, PHEP, CP, HIVCMB #### [address] [address] Electronic Health Records Specialist: Severino Jacobson MD Lipid Prof, Fastingon 2022 Cholesterol [Mass/Vol] 155 mg/dL Normal 0-199 [facility] Comment on above: Result Comment: Cholesterol Guidelines: <200 Desirable 200-240 Borderline >240 Undesirable Performed By: #### C DP LIPRF, CP #### [address] [address] Electronic Health Records Specialist: Severino Jacobson MD Cholesterol in HDL [Mass/Vol] 49 mg/dL Normal >40 [facility] Comment on above: Result Comment: HDL Guidelines: <40 Undesirable 40-59 Borderline >59 Desirable Performed By: #### C DP LIPRF, CP #### [facility] [place] [address] Electronic Health Records Specialist: Severino Jacobson MD Cholesterol in LDL [Mass/Vol] 98 mg/dL Normal 0-100 [facility] Comment on above: Result Comment: LDL Guidelines: <100 Desirable 100-129 Near to/above Desirable 130-159 Borderline >159 Undesirable Direct (measured) LDL and calculated LDL are not interchangeable tests. Performed By: #### C DP, LIPRF, CP #### [facility] [address] [place] [address] Electronic Health Records Specialist: Severino Jacobson MD Cholesterol in VLDL [Mass/Vol] 8 mg/dL Normal [facility] Comment on above: Performed By: #### C DP, LIPRF, CP #### [facility] [employer] [address] [place] [address] Electronic Health Records Specialist: Severino Jacobson MD Cholesterol.total/Chol esterol in HDL [Mass ratio] 3.0 {ratio} Normal [facility] Comment on above: Performed By: #### C DP LIPRF, CP #### [facility] [employer] [address] [place] [address] Electronic Health Records Specialist: Severino Jacobson MD Triglyceride,Fasting 38 mg/dL Normal 0-149 [facility] Comment on above: Result Comment: Triglyceride Guidelines: <150 Desirable 150-199 Borderline 200-499 High >499 Very high Based on AHA Guidelines for fasting triglyceride, February 2012. Performed By: #### C DP, LIPRF, CP #### [facility] [employer] [address] [place] [address] Electronic Health Records Specialist: Sevreino Jacobson MD SURGICALon 03-10-2023 SURGICAL [facility] [id number] Assoc. Page 1 of [address] [place] [address] PROC: 03/10/2023 [facility] RECV: 03/13/[address] RPTD: 03/21/2023 [place] [address] LOC: NVCL ACCT: SEX: F [id number] AGE: 32 Y : 1990 PATHOLOGY REPORT [...] on sections examined. Clinical correlation is recommended. [id number] AILEEN DE LA PAZ M.D., F.C.A.P [facility]/ [facility] Printed on: 03/21/[address] [place] [id number] Original print date: 03/21/2023 Normal [facility] US PREG ANATOMY SINGLEon US PREG ANATOMY [...] by: VINICIUS GARCIA Date: 2021-08-06 21:37 Normal [facility] CULTURE URINEon 04-25-2021 CULTURE URINE Isolate [...] F Trimethoprim/Sulfame thoxazole <=20 S F Normal [facility] Comment on above: Performed By: #### U RCX ####[facility] [address] [address]Dr. Purvi Smith HEP B SURFACE ANTIGEN SCREEN on 04-24-2021 HBsAg Screen Negative Normal Negative [facility] Comment on above: Performed By: #### H BSANS #### [facility] [address] [address] [address] Purvi Smith HIV 1 AND 2 WITH REFLEXon HIV Screen 4th Generation wRfx Non-Reactive Normal Non Reactive [facility] Comment on above: Performed By: #### H IV12 ####[facility] [id number] [address]Dr. Purvi Smith RPR QUANTon 04-24-2021 Rapid Plasma Reagin, Quant Non-Reactive Normal NonRea<1:1 [facility] Comment on above: Performed By: #### R PRQ #### [facility] [address] [place] [address] Dr. Purvi Smith RUBELLA AB IGGon 04-24-2021 Rubella Antibodies, IgG 1.35 index Normal Immune >0.99 [facility] Comment on above: Result Comment: Non- immune <0.90 Equivocal 0.90 - 0.99 Immune >0.99 Performed By: #### R UBIGG #### [facility] [address] [place] [address] Dr. Purvi Smith CBC AUTO DIFFon 04-23-2021 BASO # 0.0 103/ul Normal 0.0-0.1 [facility] Comment on above: Performed By: #### C BC #### [facility] [address] [place] [address] Dr. Purvi Smith Basophils/100 WBC (Bld) 0.3 % Normal 0.2-2.0 [facility] Comment on above: Performed By: #### C BC #### [facility] [address] [place] [address] Dr. Purvi Smith EO # 0.2 103/ul Normal 0.0-0.7 [facility] Comment on above: Performed By: #### C BC #### [facility] [address] [place] [address] Dr. Purvi Smith Eosinophils/100 WBC (Bld) 2.1 % Normal 0.9-7.0 [facility] Comment on above: Performed By: #### C BC #### [facility] [address] [place] [address] Dr. Purvi Smith Erythrocyte distribution width (RBC) [Ratio] 12.1 % Normal 11.0-15.0 [facility] Comment on above: Performed By: #### C BC #### [facility] [address] [place] [address] Dr. Purvi Smith Hematocrit (Bld) [Volume fraction] 32.3 % Critically low 36.0-48.0 [facility] Comment on above: Performed By: #### C BC #### [facility] [address] [place] [address] Dr. Purvi Smith Hemoglobin (Bld) [Mass/Vol] 10.6 g/dL Critically low 12.0-16.0 [facility] Comment on above: Performed By: #### C BC #### [facility] [address] [place] [address] Dr. Purvi Smith IG # 0.04 10e3/ul Critically high 0.00-0.03 [facility] Comment on above: Performed By: #### C BC #### [facility] [address] [place] [address] Dr. Purvi Smith IG % 0.3 % Normal 0.0-0.5 [facility] Comment on above: Performed By: #### C BC #### [facility] [address] [place] [address] Dr. Purvi Smith LYMPH # 2.1 103/ul Normal 1.2-3.8 [facility] Comment on above: Performed By: #### C BC #### [facility] [address] [place] [address] Dr. Purvi Smith Lymphocytes/100 WBC (Bld) 17.9 % Critically low 20.5-60.0 [facility] Comment on above: Performed By: #### C BC #### [facility] [address] [place] [address] Dr. Purvi Smith MANUAL DIFF REQ NO Normal [facility] Comment on above: Performed By: #### C BC #### [facility] [address] [place] [address] Dr. Purvi Smith MCH (RBC) [Entitic mass] 30.2 pg Normal 26.7-34.0 [facility] Comment on above: Performed By: #### C BC #### [facility] [address] [place] [address] Dr. Purvi Smith MCHC (RBC) [Mass/Vol] 32.8 g/dL Normal 29.9-35.2 [facility] Comment on above: Performed By: #### C BC #### [facility] [address] [place] [address] Dr. Purvi Smith MCV (RBC) [Entitic vol] 92.0 fL Normal 81.0-99.0 [facility] Comment on above: Performed By: #### C BC #### [facility] [address] [place] [address] Dr. Pruvi Smith MONO # 0.8 103/ul Normal 0.3-0.8 [facility] Comment on above: Performed By: #### C BC #### [facility] [address] [place] [address] Dr. Purvi Smith Monocytes/100 WBC (Bld) 6.6 % Normal 1.7-12.0 [facility] Comment on above: Performed By: #### C BC #### [facility] [address] [place] [address] Dr. Purvi Smith NEUT # 8.5 103/ul Critically high 1.4-6.5 [facility] Comment on above: Performed By: #### C BC #### [facility] [address] [place] [address] Dr. Purvi Smith Neutrophils/100 WBC (Bld) 72.8 % Normal 43.0-75.0 [facility] Comment on above: Performed By: #### C BC #### [facility] [address] [place] [address] Dr. Purvi Smith Platelet mean volume (Bld) [Entitic vol] 10.0 fL Normal 9.5-13.5 [facility] Comment on above: Performed By: #### C BC #### [facility] [address] [place] [address] Dr. Purvi Smith PLT 361 103/ul Normal 150-450 [facility] Comment on above: Performed By: #### C BC #### [facility] [address] [address] [address] Purvi Smith RBC 3.51 106/ul Critically low 4.20-5.40 [facility] Comment on above: Performed By: #### C BC #### [facility] [address] [place] [address] Dr. Purvi Smith WBC 11.7 103/ul Critically high 4.0-11.0 [facility] Comment on above: Performed By: #### C BC #### [facility] [address] [place] [address] Dr. Purvi Smith GLYCOHEMOGLOBIN A1Con 2020 ADA RECOMMENDATION ADA THERAPEUTIC TARGET 6.0 - 7.0 ACTION SUGGESTED > 7.0 Normal [facility] Comment on above: Performed By: #### A 1C #### [facility] [address] [place] [address] Dr. Purvi Smith Glucose [Mass/Vol] 88 mg/dL Normal [facility] Comment on above: Performed By: #### A 1C #### [facility] [address] [place] [address] Dr. Purvi Smith HbA1c (Bld) [Mass fraction] 4.7 % Normal <=6.0 [facility] Comment on above: Performed By: #### A 1C #### [facility] [address] [place] [address] Dr. Purvi FELDMAN BOX TEST PT SEND OUTo n 04-23-2021 SENT TO REF LAB 04/23/2021 Normal [facility] Comment on above: Performed By: #### N BOX #### [facility] [address] [place] [address] Dr. Purvi Smith TYPE AND SCREENon 04-23-2021 TYPE AND SCREEN Negative Normal [facility] Comment on above: Performed By: #### T NS #### [facility] [address] [place] [address] Dr. Purvi Smith US PREG TVon 03-30-2021 [...] VINICIUS GARCIA Date: 2021-03-30 10:06 Normal [facility] CBC AUTO DIFFon 03-16-2021 BASO # 0.0 103/ul Normal 0.0-0.1 [facility] Comment on above: Performed By: #### C BC #### [facility] [address] [place] [address] Dr. Purvi Smith Basophils/100 WBC (Bld) 0.3 % Normal 0.2-2.0 [facility] Comment on above: Performed By: #### C BC #### [facility] [address] [place] [address] Dr. Purvi Smith EO # 0.2 103/ul Normal 0.0-0.7 [facility] Comment on above: Performed By: #### C BC #### [facility] [address] [place] [address] Dr. Purvi Smith Eosinophils/100 WBC (Bld) 1.9 % Normal 0.9-7.0 [facility] Comment on above: Performed By: #### C BC #### [facility] [address] [place] [address] Dr. Purvi Smith Erythrocyte distribution width (RBC) [Ratio] 11.9 % Normal 11.0-15.0 [facility] Comment on above: Performed By: #### C BC #### [facility] [address] [place] [address] Dr. Purvi Smith Hematocrit (Bld) [Volume fraction] 31.5 % Critically low 36.0-48.0 [facility] Comment on above: Performed By: #### C BC #### [facility] [address] [place] [address] Dr. Purvi Smith Hemoglobin (Bld) [Mass/Vol] 10.3 g/dL Critically low 12.0-16.0 [facility] Comment on above: Performed By: #### C BC #### [facility] [address] [place] [address] Dr. Purvi Smith IG # 0.04 10e3/ul Critically high 0.00-0.03 [facility] Comment on above: Performed By: #### C BC #### [facility] [address] [place] [address] Dr. Purvi Smith IG % 0.4 % Normal 0.0-0.5 [facility] Comment on above: Performed By: #### C BC #### [facility] [address] [place] [address] Dr. Purvi Smith LYMPH # 2.3 103/ul Normal 1.2-3.8 [facility] Comment on above: Performed By: #### C BC #### [facility] [address] [place] [address] Dr. Purvi Smith Lymphocytes/100 WBC (Bld) 21.5 % Normal 20.5-60.0 [facility] Comment on above: Performed By: #### C BC #### [facility] [address] [place] [address] Dr. Purvi Smith MANUAL DIFF REQ NO Normal [facility] Comment on above: Performed By: #### C BC #### [facility] [address] [place] [address] Dr. Purvi Smith MCH (RBC) [Entitic mass] 30.2 pg Normal 26.7-34.0 [facility] Comment on above: Performed By: #### C BC #### [facility] [address] [place] [address] Dr. Purvi Smith MCHC (RBC) [Mass/Vol] 32.7 g/dL Normal 29.9-35.2 [facility] Comment on above: Performed By: #### C BC #### [facility] [address] [place] [address] Dr. Purvi Smith MCV (RBC) [Entitic vol] 92.4 fL Normal 81.0-99.0 [facility] Comment on above: Performed By: #### C BC #### [facility] [address] [place] [address] Dr. Purvi Smith MONO # 0.9 103/ul Critically high 0.3-0.8 [facility] Comment on above: Performed By: #### C BC #### [facility] [address] [place] [address] Dr. Purvi Smith Monocytes/100 WBC (Bld) 8.4 % Normal 1.7-12.0 [facility] Comment on above: Performed By: #### C BC #### [facility] [address] [place] [address] Dr. Purvi Smith NEUT # 7.3 103/ul Critically high 1.4-6.5 [facility] Comment on above: Performed By: #### C BC #### [facility] [address] [place] [address] Dr. Purvi Smith Neutrophils/100 WBC (Bld) 67.5 % Normal 43.0-75.0 [facility] Comment on above: Performed By: #### C BC #### [facility] [address] [place] [address] Dr. Purvi Smith Platelet mean volume (Bld) [Entitic vol] 10.4 fL Normal 9.5-13.5 [facility] Comment on above: Performed By: #### C BC #### [facility] [address] [place] [address] Dr. Purvi Smith PLT 362 103/ul Normal 150-450 [facility] Comment on above: Performed By: #### C BC #### [facility] [address] [place] [address] Dr. Purvi Smith RBC 3.41 106/ul Critically low 4.20-5.40 [facility] Comment on above: Performed By: #### C BC #### [facility] [address] [address] [address] Purvi Smith WBC 10.8 103/ul Normal 4.0-11.0 [facility] Comment on above: Performed By: #### C BC #### [facility] [address] [place] [address] Dr. Purvi Smith PROF CHEM 8 (BAS METB)on Anion gap [Moles/Vol] 10.6 mmol/L Normal [facility] Comment on above: Performed By: #### B MP #### [facility] [address] [place] [address] Dr. Purvi Smith Calcium [Mass/Vol] 9.2 mg/dL Normal 8.4-10.2 [facility] Comment on above: Performed By: #### B MP #### [facility] [address] [place] [address] Dr. Purvi Smith Chloride [Moles/Vol] 103 mmol/L Normal 98-107 [facility] Comment on above: Performed By: #### B MP #### [facility] [address] [place] [address] Dr. Purvi Smith CO2 [Moles/Vol] 25.5 mmol/L Normal 22.0-30.0 [facility] Comment on above: Performed By: #### B MP #### [facility] [address] [place] [address] Dr. Purvi Smith Creatinine [Mass/Vol] 0.61 mg/dL Normal 0.52-1.04 [facility] Comment on above: Performed By: #### B MP #### [facility] [address] [place] [address] Dr. Pruvi Smith EGFR-AF BOTSWANAN >60 Normal >=60 [facility] Comment on above: Performed By: #### B MP #### [facility] [address] [address] [address] Purvi Smith EGFR-NON AF BOTSWANAN >60 Normal >=60 [facility] Comment on above: Performed By: #### B MP #### [facility] [address] [address] [address] Purvi Smith Glucose [Mass/Vol] 80 mg/dL Normal 74-106 [facility] Comment on above: Performed By: #### B MP #### [facility] [address] [address] [address] Purvi Smith Potassium [Moles/Vol] 3.1 mmol/L Critically low 3.4-5.0 [facility] Comment on above: Performed By: #### B MP #### [facility] [address] [address] [address] Purvi Smith Sodium [Moles/Vol] 136 mmol/L Critically low 137-145 [facility] Comment on above: Performed By: #### B MP #### [facility] [address] [address] [address] Purvi Smith Urea nitrogen [Mass/Vol] 11.0 mg/dL Normal 7.0-17.0 [facility] Comment on above: Performed By: #### B MP #### [facility] [address] [address] [address] Purvi Smith Urea nitrogen/Creatinine [Mass ratio] 18.0 mg/mg Normal [facility] Comment on above: Performed By: #### B MP #### [facility] [address] [address] [address] Purvi Smith Vital Signs Date Time Vital Sign Value Performing Clinician Facility 06-23-2024 10:56-0500 Body mass index (BMI) [Ratio] 28.32 kg/m2 Sophia KYLE Work Phone: [facility] 06-23-2024 10:56-0500 Body weight 74.84 kg Sophia KYLE Work Phone: [facility] 06-23-2024 10:56-0500 Diastolic blood pressure 80 mm[Hg] Sophia Iraj PA Work Phone: [facility] 06-23-2024 10:56-0500 Systolic blood pressure 128 mm[Hg] Sophia Nathrop PA Work Phone: [facility] 06-09-2024 11:35-0500 Body mass index (BMI) [Ratio] 28.69 kg/m2 Shakir Steph DO Work Phone: [facility] 06-09-2024 11:35-0500 Body weight 75.81 kg Shakir Steph DO Work Phone: [facility] 06-09-2024 11:35-0500 Diastolic blood pressure 74 mm[Hg] Shakir Steph DO Work Phone: [facility] 06-09-2024 11:35-0500 Systolic blood pressure 114 mm[Hg] Shakir Steph DO Work Phone: [facility] 05-24-2024 13:21-0500 Body mass index (BMI) [Ratio] 28.63 kg/m2 Sophia Iraj PA Work Phone: [facility] 05-24-2024 13:21-0500 Body weight 75.66 kg Sophia Iraj PA Work Phone: [facility] 05-24-2024 13:21-0500 Diastolic blood pressure 80 mm[Hg] Sophia Irja PA Work Phone: [facility] 05-24-2024 13:21-0500 Systolic blood pressure 116 mm[Hg] Sophia Nathrop PA Work Phone: [facility] 05-10-2024 13:14-0500 Body mass index (BMI) [Ratio] 28.32 kg/m2 Shakir Steph DO Work Phone: [facility] 05-10-2024 13:14-0500 Body weight 74.84 kg Shakir Steph DO Work Phone: [facility] 05-10-2024 13:14-0500 Diastolic blood pressure 66 mm[Hg] Shakir Steph DO Work Phone: [facility] 05-10-2024 13:14-0500 Systolic blood pressure 106 mm[Hg] Shakir Steph DO Work Phone: [facility] 05-05-2024 10:30-0500 Body height 162.6 cm Ifrah Díaz MD Work Phone: [facility] 05-05-2024 10:30-0500 Body mass index (BMI) [Ratio] 28.21 kg/m2 Ifrah Díaz MD Work Phone: [facility] 05-05-2024 10:30-0500 Body weight 74.57 kg Ifrah Díaz MD Work Phone: [facility] 05-05-2024 10:30-0500 Diastolic blood pressure 68 mm[Hg] Ifrah Díaz MD Work Phone: [facility] 05-05-2024 10:30-0500 Heart rate 90 /min Ifrah Díaz MD Work Phone: [facility] 05-05-2024 10:30-0500 Systolic blood pressure 120 mm[Hg] Ifrah Díaz MD Work Phone: [facility] 04-12-2024 13:58-0500 Body mass index (BMI) [Ratio] 28.63 kg/m2 Sophia KYLE Work Phone: [facility] 04-12-2024 13:58-0500 Body weight 75.66 kg Sophia KYLE Work Phone: [facility] 04-12-2024 13:58-0500 Diastolic blood pressure 70 mm[Hg] Sophia KYLE Work Phone: [facility] 04-12-2024 13:58-0500 Systolic blood pressure 120 mm[Hg] Sophia KYLE Work Phone: [facility] 03-15-2024 10:53-0400 Body mass index (BMI) [Ratio] 27.77 kg/m2 Shakir Steph DO Work Phone: [facility] 03-15-2024 10:53-0400 Body weight 73.39 kg Shakir Steph DO Work Phone: [facility] 03-15-2024 10:53-0400 Diastolic blood pressure 72 mm[Hg] Shakir Steph DO Work Phone: [facility] 03-15-2024 10:53-0400 Systolic blood pressure 110 mm[Hg] Shakir Steph DO Work Phone: [facility] 02-06-2024 15:11-0400 Diastolic blood pressure 63 mm[Hg] Stv 11 [facility] 02-06-2024 15:11-0400 Heart rate 89 /min Stv 11 [facility] 02-06-2024 15:11-0400 Systolic blood pressure 97 mm[Hg] [facility] 11 [facility] 02-06-2024 14:22-0400 Respiratory rate 16 /min Stv 11 [facility] 01-29-2024 11:52-0400 Body mass index (BMI) [Ratio] 27.64 kg/m2 Shakir Steph DO Work Phone: [facility] 01-29-2024 11:52-0400 Body weight 73.03 kg Shakir Steph DO Work Phone: [facility] 01-29-2024 11:52-0400 Diastolic blood pressure 74 mm[Hg] Shakir Steph DO Work Phone: [facility] 01-29-2024 11:52-0400 Systolic blood pressure 112 mm[Hg] Shakir Steph DO Work Phone: [facility] Healthcare Encounters Encounter Date Encounter Type Care Provider Facility Start: 07-08-2024 End: 07-08-2024 Bamboo flowsheet Shakir Steph DO Work Phone: [facility] Start: 07-08-2024 End: 07-08-2024 Bamboo flowsheet Shakir Steph DO Work Phone: [facility] Start: 06-23-2024 End: 06-23-2024 Bamboo flowsheet Sophia KYLE Work Phone: [facility] Start: 06-23-2024 End: 06-23-2024 Bamboo flowsheet Sophia KYLE Work Phone: [facility] Start: 06-23-2024 End: 06-23-2024 Clinisync Result Encounter Shakir Steph DO Work Phone: [facility] External Department Unsolicited Start: 06-23-2024 End: 06-23-2024 Office outpatient visit 15 minutes Sophia KYLE Work Phone: [facility] Comment on above: Third trimester preg yenny; 33 weeks gestation of ; Urinary tract infection with hematuria, site unspecified Start: 06-23-2024 End: 06-23-2024 ambulatory SOPHIA GALO Not Available Start: 06-22-2024 End: 06-22-2024 [facility] Start: 06-09-2024 End: 06-09-2024 Bamboo flowsheet Shakir Steph DO Work Phone: [facility] Start: 06-09-2024 End: 06-09-2024 Bamboo flowsheet Shakir Steph DO Work Phone: [facility] Start: 06-09-2024 End: 06-09-2024 ambulatory SHAKIR STEPH Not Available Start: 06-09-2024 End: 06-09-2024 Office outpatient visit 15 minutes Shakir Steph DO Work Phone: [facility] Comment on above: 31 weeks gestation o f ; Second trimester ; Right club foot; Premature uterine contractions, antepartum Start: 06-03-2024 End: 06-03-2024 ambulatory SHAKIR R STEPH [facility] Start: 05-24-2024 End: 05-24-2024 Bamboo flowsheet Sophia KYLE Work Phone: [facility] Start: 05-24-2024 End: 05-24-2024 Bamboo flowsheet Sophia KYLE Work Phone: [facility] Start: 05-24-2024 End: 05-24-2024 Office outpatient visit 15 minutes Sophia KYLE Work Phone: [facility] Comment on above: 29 weeks gestation o f ; Third trimester ; SGA (small for gestational age) Start: 05-24-2024 End: 05-24-2024 ambulatory SOPHIA GALO Not Available Start: 05-13-2024 End: 05-13-2024 ambulatory [facility] Start: 05-10-2024 End: 05-10-2024 Bamboo flowsheet Shakir Steph DO Work Phone: [facility] Start: 05-10-2024 End: 05-11-2024 Bamboo flowsheet Shakir Steph DO Work Phone: [facility] Start: 05-10-2024 End: 05-11-2024 External Result Encounter Shakir Steph DO Work Phone: [facility] External Department Unsolicited Start: 05-10-2024 End: 05-10-2024 Office outpatient visit 15 minutes Shakir Steph DO Work Phone: [facility] OB Comment on above: 27 weeks gestation o f ; Second trimester ; Urinary tract infection without hematuria, site unspecified Start: 05-10-2024 End: 05-10-2024 ambulatory SHAKIR STEPH Not Available Start: 05-05-2024 End: 05-05-2024 Office outpatient new 45 minutes Ifrah Díaz MD Work Phone: [facility] Comment on above: Club foot of fetus a ffecting antepartum care of mother, other fetus (Primary Dx); Placenta previa in second trimester; Suspected problem with placenta not found; History of delivery, currently ; History of drug overdose; History of placental abruption; Anxiety and depression; 26 weeks gestation of Start: 05-05-2024 End: 05-05-2024 Orders Only Lena Bucio [employer] [facility] Comment on above: Club foot of fetus a ffecting antepartum care of mother, other fetus (Primary Dx); Placenta previa in second trimester; Suspected problem with placenta not found; History of delivery, currently ; History of drug overdose Start: 04-12-2024 End: 04-12-2024 Bamboo flowsheet Sophia KYLE Work Phone: [facility] Start: 04-12-2024 End: 04-12-2024 Bamboo flowsheet Sophia KYLE Work Phone: [facility] Start: 04-12-2024 End: 04-12-2024 Office outpatient visit 15 minutes Sophia KYLE Work Phone: [facility] Comment on above: Bacterial vaginosis (Primary Dx); 23 weeks gestation of ; Second trimester ; Diabetes mellitus screening Start: 04-12-2024 End: 04-12-2024 ambulatory SOPHIA GALO Not Available Start: 04-09-2024 End: 04-09-2024 ambulatory [facility] Start: 04-06-2024 End: 04-06-2024 Clinisync Result Encounter Shakir Steph DO Work Phone: [facility] External Department Unsolicited Start: 04-06-2024 End: 04-06-2024 Clinisync Result Encounter Shakir Steph DO Work Phone: [facility] External Department Unsolicited Start: 03-15-2024 End: 03-15-2024 Bamboo flowsheet Shakir Steph DO Work Phone: [facility] Start: 03-15-2024 End: 03-15-2024 Bamboo flowsheet Shakir Steph DO Work Phone: [facility] Start: 03-15-2024 End: 03-15-2024 Office outpatient visit 15 minutes Shakir Steph DO Work Phone: [facility] Comment on above: Second trimester pre gnancy; 17 weeks gestation of ; UTI symptoms Start: 03-15-2024 End: 03-15-2024 ambulatory SHAKIR STEPH Not Available Start: 02-26-2024 End: 02-26-2024 Emergency department [facility] Start: 02-06-2024 End: 02-06-2024 [facility] Start: 02-06-2024 End: 02-06-2024 Subsequent hospital visit by physician Clarita Burt Med Onc Chair 11 [facility] Comment on above: Iron deficiency anem ia, unspecified iron deficiency anemia type (Primary Dx) Start: 01-30-2024 End: 01-30-2024 ambulatory [facility] Start: 01-29-2024 End: 01-29-2024 Bamboo flowsheet Shakir [...] 12-20-2023 Emergency department patient [facility] Start: 12-05-2023 End: 12-05-2023 ambulatory [facility] Start: 11-24-2023 End: 11-24-2023 Emergency department patient visit [facility] Start: 11-06-2023 End: 11-06-2023 ambulatory [facility] Start: 09-08-2023 End: 09-08-2023 Telephone encounter Amber Smith CMA [facility] Comment on above: appointment due Start: 09-02-2023 End: 09-02-2023 ambulatory [facility] Start: 07-17-2023 End: 07-17-2023 Emergency department patient visit [facility] Start: 04-11-2023 End: 04-11-2023 [facility] Start: 03-12-[address] 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 Shakir Naqvio DO Work Phone: Start: 04-06-2024 [facility] URINE MICROSCOPIC ONLY Shakir Choi DO Work Phone: Start: 03-15-2024 Urnls dip stick/tabl et rgnt non-auto w/o micrscp Shakirsushma Naqvio DO Work Phone: Start: 01-29-2024 URETHRITIS/DISCHARGE PLUS VAGINITIS (HTRX) Shakir Naqvio DO Work Phone: Start: 01-29-2024 Urnls dip stick/tabl et rgnt non-auto w/o micrscp Shakirsushma Naqvio DO Work Phone: Start: 01-17-2024 Antibody screen Shakir F azio DO Work Phone: Start: 01-17-2024 ALL CBC WITH AUTO DIFF Shakir Choi DO Work Phone: Start: 01-17-2024 ALL TYPE AND SCREEN Cor ey Steph DO Work Phone: Start: 01-17-2024 MLR HEMOGLOBIN A1C Core y Steph DO Work Phone: Start: 04-25-2022 Adult depression scr eening assessment Amber Smith [employer] Start: 08-21-2021 Microscopic observat ion [Identifier] in Cervix by Cyto stain Stv 3 Plan of Treatment Date Care Activity Detail Author Start: 05-05-2025 Adult BMI Screening Adult BMI Screen ing [facility] Start: 05-05-2025 Tobacco Screening Tobacco Screening [facility] Start: 05-05-2025 End: 05-05-2025 US MFM with or without consult US MFM with or without consult Imaging Routine 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, other fetus Placenta previa in second trimester Suspected problem with placenta not found History of delivery, currently History of drug overdose Expected: 05/05/2025 (Approximate), Expires: 05/05/[address] [facility] [address] [facility] Phone: Comment on above: Expected: 05/05/2025 (Approximate), Expires: 05/05/2025 Start: 08-21-2024 Screening for malign ant neoplasm of cervix [facility] Start: 07-17-2024 Adult BMI Screening Adult BMI Screen ing [facility] Start: 07-17-2024 Tobacco Screening Tobacco Screening [facility] Start: 07-08-2024 End: 07-08-2024 Patient encounter procedure 07/08/2024 10:40 AM EST Routine [facility] [address] [place] [id number] Shakir Choi, DO [address] [place] [address] [facility] Start: 06-23-2024 End: 06-23-2024 Patient encounter procedure [facility] Comment on above: Arrived Start: 06-12-2024 Respiratory Syncytia l Virus (RSV) or age 60 yrs+ (1 - Risk 1-dose series) Respiratory Syncytial Virus (RSV) or age 60 yrs+ (1 - Risk 1-dose series) [facility] Start: 06-09-2024 End: 06-09-2024 Patient encounter procedure 06/09/2024 11:20 AM EST Routine [facility] [address] [place] [id number] Shakir Choi DO [address] [facility] [address] [place] [address] [facility] Start: 06-03-2024 End: 06-03-2024 Patient encounter procedure 06/03/2024 2:15 PM EST Appointment [facility] [address] [place] [address] [facility] Start: 05-24-2024 End: 05-24-2025 US biophysical profile w non stress test US biophysical profile w non stress test Imaging Routine 29 weeks gestation of Third trimester SGA (small for gestational age) Expected: 05/24/2024 (Approximate), Expires: 05/24/2025 [facility] Comment on above: Expected: 05/24/2024 (Approximate), [...] AM EST Routine [facility] [address] [place] [id number] Sophia Galo PA [address] [facility] [address] [place] [address] [facility] Start: 04-12-2024 End: 04-12-2025 [...] mellitus screening Expected: 04/12/2024 (Approximate), Expires: 04/12/2025 [facility] Healthcare Comment on above: Expected: 04/12/2024 (Approximate), Expires: 04/12/2025 Start: 04-01-2024 End: 04-01-2024 Telemedicine consultation with patient 04/01/2024 4:00 PM EST Telemedicine [facility] [id number] [place], [place] [id number] Jossue Swain MD [address] [place] [address] 3 month f/u [facility] Comment on above: 3 month f/u Start: 03-15-2024 End: 03-15-2024 Patient encounter procedure 03/15/2024 10:00 AM EDT Routine [facility] [address] [place] [address] Shakir Choi DO [address] [place], [place] [id number] Arrived [facility] Comment on above: Arrived Start: 02-26-2024 End: 02-26-2024 Patient encounter procedure 02/26/2024 9:40 AM EDT Routine [facility] [address] [place] [address] Sophia Galo PA [address] [facility] [place] [address] [facility] Start: 01-29-2024 End: 01-29-2024 Patient encounter procedure 01/29/2024 10:40 AM EDT Routine [facility] [address] [place] [address] Shakir Choi DO [address] [facility] [facility] [address] [place] [address] [facility] Start: 01-25-2024 COVID-19 Vaccine ( season) COVID-19 Vaccine ( season) [facility] Start: 01-25-2024 COVID-19 Vaccine ( season) COVID-19 Vaccine ( season) [facility] Start: 01-25-2024 Influenza vaccination P [facility] Start: 12-25-2023 Influenza vaccination Flu vaccine (# 1) [facility] Start: 04-25-2023 Depression Screening Depression [facility] Start: 01-24-2023 COVID-19 Vaccine ( season) COVID-19 Vaccine ( season) [facility] Start: 11-11-2022 DTaP,Tdap and Td Vaccines (7 - Td or Tdap) DTaP,Tdap and Td Vaccines (7 - Td or Tdap) [facility] Start: 11-11-2022 DTaP/Tdap/Td vaccine (7 - Td or Tdap) DTaP/Tdap/Td vaccine (7 - Td or Tdap) [facility] Start: 2022 Screening for malign ant neoplasm of cervix [facility] Start: 01-24-2022 Influenza vaccination Flu vacc ine (Season Ended) [facility] Start: 10-01-2021 End: 10-01-2021 Patient encounter procedure 10/01/2021 Routine Obstetrics and Gynecology Kristel De Leon, DO [address] [place] [address] [facility] [place] Start: 09-04-2021 End: 09-04-2021 Patient encounter procedure 09/04/2021 Routine Obstetrics and Gynecology Anisha Lucas, DO [address] [place] [address] [facility] [place] Start: 01-24-2021 Influenza vaccination Flu vaccine (# 1) [facility] Start: 08-03-2019 Varicella vaccine (2 of 2 - 13+ 2-dose series) Varicella vaccine (2 of 2 - 13+ 2-dose series) [facility] Start: 07-28-2019 Hepatitis B vaccine (3 of 3 - 19+ 3-dose series) Hepatitis B vaccine (3 of 3 - 19+ 3-dose series) [facility] Start: 2013 Screening for malign ant neoplasm of cervix Pap smear [facility] Start: 09-21-2011 DTaP/Tdap/Td vaccine (1 - Tdap) DTaP/Tdap/Td vaccine (1 - Tdap) [facility] Start: 2010 Adult BMI Follow Up Plan Adult BMI Follow Up Plan [facility] Start: 2010 Hepatitis C screening Hepatitis C [facility] Start: 2004 Depression Screen Depression Screen [facility] Start: 1997 COVID-19 Vaccine (1) COVID-19 Vaccin e (1) [facility] Start: 1993 Varicella vaccine (1 of 2 - 2-dose childhood series) Varicella vaccine (1 of 2 - 2-dose childhood series) [facility] Start: 1992 Hepatitis C screening Hepatitis C [facility] Bacteria identified in Urine by Culture Urine culture Microbiology Routine UTI symptoms Ordered: 03/15/2024 [facility] Work Phone: Comment on above: Ordered: 03/15/2024 Bacteria identified in Urine by Culture Urine culture Microbiology Routine 27 weeks gestation of Urinary tract infection without hematuria, site unspecified Ordered: 05/10/2024 [facility] Work Phone: Comment on above: Ordered: 05/10/2024 Bacteria identified in Urine by Culture Urine culture Microbiology Routine Urinary tract infection without hematuria, site unspecified Ordered: 01/29/2024 [facility] Work Phone: Comment on above: Ordered: 01/29/2024 Hemoglobin A1c/Hemoglobin.total in Blood Hemoglobin A1c Lab Routine 29 weeks gestation of Third trimester SGA (small for gestational age) Ordered: 05/24/2024 [facility] Comment on above: Ordered: 05/24/2024 Immunizations Immunization Date Immunization Notes Care Provider Fa cility 08-06-2019 Influenza, injectabl e, Madin Estefania Canine Kidney, preservative free, quadrivalent [facility] 08-06-2019 influenza virus vaccine, unspecified formulation [facility] 07-06-2019 tuberculin skin test ; purified protein derivative solution, intradermal [facility] 07-06-2019 varicella virus vaccine [facility] 03-01-2019 hepatitis B vaccine, adult dosage [facility] 01-27-2019 hepatitis B vaccine, adult dosage [facility] 11-11-2012 tetanus toxoid, redu lucrecia diphtheria toxoid, and acellular pertussis vaccine, adsorbed [facility] 06-11-2012 influenza, seasonal, injectable [facility] 01-01-2005 measles, mumps and rubella virus vaccine [facility] 01-01-2005 poliovirus vaccine, inactivated [facility] 01-01-2005 TD(adult) unspecifie d formulation [facility] 05-02-1995 diphtheria, tetanus toxoids and acellular pertussis vaccine, unspecified formulation [facility] 03-22-1994 diphtheria, tetanus toxoids and acellular pertussis vaccine, unspecified formulation [facility] 03-22-1994 haemophilus influenz ae type b vaccine, conjugate unspecified formulation [facility] 03-22-1994 measles, mumps and rubella virus vaccine [facility] 03-22-1994 poliovirus vaccine, unspecified formulation [facility] 07-27-1993 diphtheria, tetanus toxoids and acellular pertussis vaccine, unspecified formulation [facility] 07-27-1993 haemophilus influenz ae type b vaccine, conjugate unspecified formulation [facility] 07-27-1993 hepatitis B vaccine, pediatric or pediatric/adolescent dosage [facility] 07-27-1993 poliovirus vaccine, unspecified formulation [facility] 1992 diphtheria, tetanus toxoids and acellular pertussis vaccine, unspecified formulation [facility] 1992 haemophilus influenz ae type b vaccine, conjugate unspecified formulation [facility] 1992 hepatitis B vaccine, pediatric or pediatric/adolescent dosage [facility]ovirus [facility], unspecified [facility] 1992 hepatitis B vaccine, pediatric or pediatric/adolescent dosage [facility] Payers Date Payer Category Payer Medicaid (Managed Care) [employer] [id number] 2003 Medicaid [id number] 2003 Medicaid HMO [employer] [id number] 1992 Unknown [id number] 2.16.840.1.229082.3.579.2. 593 1992 Unknown [id number] 2.16.840.1.986060.3.579.2. 593 1992 Unknown [id number] 2.16840.1.098512.3.579.2. 593 1992 Unknown [id number] 2.16840.1.824598.3.579.2. 593 1992 Unknown [id number] 2.16.840.1.090573.3.579.2. 593 1992 Unknown [id number] 2.16.840.1.884681.3.579.2. 93 1992 Unknown [id number] 2.16.840.1.098638.3.579.2. 177 1992 Unknown [id number] 2.16840.1.718490.3.579.2. 175 1992 Unknown [id number] 2.16.840.1.280531.3.579.2. 175 1992 Unknown [id number] 2.16.840.1.241985.3.579.2. 175 1992 Unknown [id number] 2.16.840.1.645594.3.579.2. 175 1992 Unknown [id number] 2.16.840.1.303528.3.579.2. 175 1992 Unknown [id number] 2.840.1.297153.3.579.2. 1285 1992 Unknown [id number] 2.840.1.695925.3.579.2. 1285 1992 Unknown [id number] 2.840.1.651343.3.579.2. 1285 1992 Unknown [id number] 2840.1.064105.3.579.2. 1285 1992 Unknown [id number] 2.840.1.695760.3.579.2. 1285 1992 Unknown [id number] 07.11.830.1.030959.3.579.2. 1285 1992 Unknown [id number] 20.1.920468.3.579.2. 1285 1992 Unknown [id number] 07.11.830.1.868678.3.579.2. 1285 1992 Unknown [id number] 20.1.092891.3.579.2. 1285 1992 Unknown [id number] 07.11.830.1.442703.3.579.2. 1285 1992 Unknown [id number] 840.1.280591.3.579.2. 1258 1992 Unknown [id number] 840.1.522494.3.579.2. 1258 1992 Unknown [id number] 2840.1.928504.3.579.2. 1258 1992 Unknown [id number] 2840.1.573118.3.579.2. 1258 1992 Unknown [id number] 2840.1.452809.3.579.2. 1258 1992 Unknown [id number] 1990 Unknown [id number] 1990 Unknown [id number] 1957 Self-pay [id number] 1957 Unknown [id number] Unknown [id number] Social History Date Type Detail Facility Start: 06-23-2012 End: 01-01-2024 Tobacco smoking status [facility] Never smoked tobacco [facility] Phone: Start: 06-23-2012 End: 01-01-2024 Tobacco use and exposure Smokeless tobacco non-user [facility] Phone: Start: 08-21-2021 End: 06-09-2024 Alcohol intake Lifetime non-drinker (finding) [facility] Phone: Start: 08-21-2021 History SDOH Alcohol Frequency 1 [facility] Phone: Start: 02-16-2021 [employer] Phone: Start: 1990 [facility] Start: 09-01-2021 End: 09-04-2021 Tobacco smoking status [facility] Ex-smoker [employer] Start: 09-04-2021 End: 12-05-2023 Alcohol intake Ex-drinker (finding) [facility] Phone: Start: 07-06-2020 End: 01-01-2024 History of Social function [employer] Start: 07-06-2020 End: 01-01-2024 Tobacco use panel [facility] Start: 1990 Sex assigned at Female [facility] History of tobacco use Current smoker [facility] Has the [employer], [employer], or [employer] threatened to shut off services in your home in past 12Mo No [facility] How hard is it for y ou to pay for the very basics like food, housing, medical care, and heating Not hard at all [facility] The thought of krishan jeronimo myself has occurred to me Never [facility] Start: 05-01-2018 Alcohol Comment once a month / couple glasses of wine [facility] Start: 12-29-2014 Sex Female (finding) [facility] Start: 07-17-2023 Alcoholic beverage intake Current drinker of alcohol (finding) [facility] Goals Date Patient Goal Desired Activity /State Personal health goal Clinical Notes 09-08-2023 to 06-23-2024 ANABELLA Gleason - 06/23/2024 10:40 AM Jenelle Nunez LPN - 06/09/2024 11:20 AM ANABELLA Geller - 05/24/2024 1:20 PM Jenelle Nunez LPN - 05/10/2024 1:10 PM ANABELLA Geller 04/12/2024 1:20 PM EST Note Date & [...] Past Medical History: Diagnosis Date Anxiety Asthma ([facility]) Chlamydia Depression ([facility]) History of miscarriage Iron deficiency anemia SAB (spontaneous ) UTI (urinary tract infection) HISTORY PAST MEDICAL HISTORY SOCIAL HISTORY Past Medical History: Diagnosis Date Anxiety Asthma ([facility]) Chlamydia Depression ([facility]) History of miscarriage Iron deficiency [...] having contractions on 06/20/2024 and went to [facility] for evaluation pt states she was given IV fluids and the contractions went away. On 06/22/2024 pt states she went to [facility] due to contractions again @ 7-10 [...] of: ANABELLA Gleason documented in this encounter [facility] 06-09-2024 History of Presen t illness [...] Past Medical History: Diagnosis Date Anxiety Asthma ([facility]) Chlamydia Depression ([facility]) History of miscarriage Iron deficiency anemia SAB (spontaneous ) UTI (urinary tract infection) HISTORY PAST MEDICAL HISTORY SOCIAL HISTORY Past Medical History: Diagnosis Date Anxiety Asthma ([facility]) Chlamydia Depression ([facility]) History of miscarriage Iron deficiency [...] nursing note reviewed. Exam conducted with a cashier office present. Vitals: Estimated body mass index is [...] Shakir Choi DO documented in this encounter [facility] 05-24-2024 History of Presen t illness [...] Diagnosis Date Anxiety Asthma (CMS/HCC) Chlamydia Depression (CMS/[facility]) History of miscarriage Iron deficiency [...] was seen and admitted to hospital in [place] when she was on jeane stating they [...] of: ANABELLA Gleason documented in this encounter [facility] 05-10-2024 History of Presen t illness [...] nursing note reviewed. Exam conducted with a cashier office present. Vitals: Estimated body mass index is [...] a day. Is doing growth ultrasounds at [facility] on 06/03/ will start here after, NST/BPP at 32 weeks. Rx for macrobid faxed to pharmacy. Orders Placed This Encounter Procedures Urine culture POCT urinalysis dipstick manually resulted Follow Up: Patient is to return to office in 2 week for routine OB appointment. Documented by Ct Nunez LPN on behalf of: Sophia Galo PA-C documented in this encounter [facility] 05-05-2024 History of Presen t illness [...] female Have you been seen here at [facility] in a previous ? Yes Recent ER visits or hospitalizations? Yes , spotting Bring blood sugar log or meter with you today? (Please bring them with you for every visit at [facility]) n/a Flu vaccine (Mar-July)? No Any concerns [...] taking: Reported on 05/05/2024 12/20/23 Candice Lim APRN-LASTER HAND SH: Social History Socioeconomic History Marital status: [...] We also discussed pediatric orthopedic follow-up postnatally. [facility] healthcare account manager met with the patient after the visit. [...] Follow-up with Pediatric Orthopedic surgery postnatally. Ct healthcare account manager met with the patient today. Plan reviewed with patient. She vocalized understanding all questions answered. The patient is to continue with routine care in your office [facility], the CDC, and other organizations representing maternal and public health professionals recommend that , , and lactating people and those considering receive the COVID-19 vaccination. Vaccination is the best method to reduce maternal and complications of SARS-CoV-2 infection. This document was created with [employer] technology. Though I make every effort to review the dictation as it is transcribed, on occasion the spoken word can be misinterpreted by the technology leading to inappropriate words, phrases, or sentences. This note is addressed to the requesting provider as a consultation for clinical guidance. Specific medical abbreviations are occasionally used and those are generally approved by the [place]?Board of?Obstetrics and?Gynecology?as well as?Kenna s abbreviations. The above plan of care was based solely on the diagnoses for which a consultation was requested. ?More frequent testing may be indicated based on her other medical/obstetrical conditions. The management of other or medical conditions is beyond the scope of requested consultation and will continue to be followed by the primary vessel scrapper helper or primary care provider. Thank you for [...] procedures Referring and communicating with other health hearing care practitioner (not separately reported) Documenting clinical information in the electronic or other health record Independently interpreting results (not separately reported) and communicating results to the patient/family/caregiver Care coordination (not separately reported) documented in this encounter [facility] 04-12-2024 History of Presen t illness Narrative [...] Past Medical History: Diagnosis Date Anxiety Asthma ([facility]) Chlamydia Depression ([facility]) History of miscarriage Iron deficiency anemia SAB (spontaneous ) UTI (urinary tract infection) HISTORY PAST MEDICAL HISTORY SOCIAL HISTORY Past Medical History: Diagnosis Date Anxiety Asthma (CMS/HCC) Chlamydia Depression ([facility]) History of miscarriage Iron deficiency [...] of: ANABELLA Gleason documented in this encounter [facility] 03-15-2024 History of Presen t illness [...] nursing note reviewed. Exam conducted with a cashier office present. Vitals: Estimated body mass index is [...] Shakir Choi DO documented in this encounter [facility] 02-06-2024 History of Presen t illness Narrative Pt here for Feraheme infusion. Infusion complete without incident. Pt d/c'd in stable condition. Returns 04-01-24 for f/u. documented in this encounter [facility] 01-29-2024 History of Presen t illness [...] Diagnosis Date Anxiety Asthma (CMS/HCC) Chlamydia Depression ([facility]) History of miscarriage Iron deficiency anemia SAB (spontaneous ) UTI (urinary tract infection) HISTORY PAST MEDICAL HISTORY SOCIAL HISTORY Past Medical History: Diagnosis Date Anxiety Asthma (CMS/HCC) Chlamydia Depression ([facility]) History of miscarriage Iron deficiency [...] nursing note reviewed. Exam conducted with a cashier office present. Vitals: Estimated body mass index is [...] or undercooked meat, and stay away from [facility]. Patient has been consulted regarding any [...] Shakir Choi DO documented in this encounter [facility] 09-08-2023 Miscellaneous Notes Care Coordination Outreach performed to coordinate overdue appointments, testing, and/or follow-up care: Yes Audit/Outreach Date: September 08, 2023 Reason: Well Person Method: Telephone and MyChart Outreach Attempt: First Outcome: Left Message Next PCP Appointment: N/A Tests/Referrals Pended: N/A Resources/Education Provided: Additional Comments: documented in this encounter [facility] 09-08-2023 Telephone encounter Note Care Coordination Outreach performed to coordinate overdue appointments, testing, and/or follow-up care: Yes Audit/Outreach Date: September 08, 2023 Reason: Well Person Method: Telephone and MyChart Outreach Attempt: First Outcome: Left Message Next PCP Appointment: N/A Tests/Referrals Pended: N/A Resources/Education Provided: Additional Comments: [facility] Evaluation note Diagnosis Second trimester state, incidental 17 weeks gestation of UTI symptoms documented in this encounter [facility] HealthcareEvaluation note* Diagnosis Bacterial vaginosis- Primary Unspecified vaginitis and vulvovaginitis 23 weeks gestation of Second trimester state, incidental Diabetes mellitus screening Screening for diabetes mellitus documented in this encounter [facility]* Diagnosis 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 Diagnosis 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, other fetus- Primary Placenta previa in second trimester Suspected problem with placenta not found Suspected placental problem not found History of delivery, currently with history of pre-term labor History of drug overdose History of placental abruption Anxiety and depression 26 weeks gestation of documented in this encounter [facility]* Diagnosis 27 weeks gestation of Second trimester state, incidental Urinary tract infection without hematuria, site unspecified documented in this encounter [facility] HealthcareEvaluation note* Diagnosis First trimester state, incidental Nausea Nausea alone Urinary tract infection without hematuria, site unspecified documented in this encounter [facility] HealthcareEvaluation note* Diagnosis 29 weeks gestation of Third trimester state, incidental SGA (small for gestational age) Ulmgr-zbh-lhjrs without mention of malnutrition, unspecified (weight) documented in this encounter [facility] HealthcareEvaluation note* Diagnosis 31 weeks gestation of Second trimester state, incidental Right club foot Premature uterine contractions, antepartum Unspecified abnormality of labor, antepartum documented in this encounter [facility] HealthcareEvaluation note* Diagnosis Iron deficiency anemia, unspecified iron deficiency anemia type- Primary [facility] Diagnosis Third trimester state, incidental 33 weeks gestation of Urinary tract infection with hematuria, site unspecified documented in this encounter [facility] HealthcareInstructionsNot on filedocumented in this encounterProMedinc Health SystemInstructionsNot on filedocumented in this encounterProMediC[facility] SystemInstructionsNot on filedocumented in this encounterProCooper Green [facility] SystemReason for visit Narrative* Treatment Plan and Therapy Plan (Routine) - Authorized Specialty Diagnoses / Procedures Referred By Curtis t Referred To Contact Diagnoses Iron deficiency anemia, unspecified iron deficiency anemia type Procedures OR FERUMOXYTOL, NON-ESRD Jossue Swain MD [address] [place] [address] [facility] [address] [place] [address] Referral ID Status Reason Start Date Expiration Date V isits Requested Visits Authorized [id number] Authorized 01/14/2024 04/15/2024 10 10 [facility] Summary Purpose Family History No Family History Records FoundNo Family History Records FoundNo Family History Records FoundNo Family History Records FoundNo Family History Records FoundNo Family History Records FoundNo Family History Records Found Advance Directives Documents on File Type Date Recorded 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 ACP-Advance Directive ACP-Power of Rn Home Care Date Activated Date Inactivated Comments 04/09/2024 7:33 [...] DATE CREATED AUTHOR 08/08/2021 [facility] DATE CREATED AUTHOR AUTHOR'S ORGANIZ ATION 03/23/2023 [facility] DATE CREATED AUTHOR AUTHOR'S ORGANIZ ATION 12/11/2023 [facility] DATE CREATED AUTHOR AUTHOR'S ORGANIZ ATION 02/08/2024 [facility] DATE CREATED AUTHOR AUTHOR'S ORGANIZ ATION 06/08/2024 [facility] DATE CREATED AUTHOR AUTHOR'S ORGANIZ ATION 06/24/2024 [facility] DATE CREATED AUTHOR AUTHOR'S ORGANIZ ATION 06/25/2024 [facility] dical Specialists EP[employer] Care Teams (unrecognized sec tion and content) Applied Research Director Relationship Specialty Start Date End Date Benson Dial MD PCP - General 10/08/12 Applied Research Director Relationship Specialty Start Date End Date Benson Dial MD PCP - General 10/08/12 Applied Research Director Relationship Specialty Start Date End Date Vinicius Quintana MD [address] [place] [address] PCP - General Family Medicine 03/03/23 Applied Research Director Relationship Specialty Start Date End Date Vinicius Quintana MD [address] [place] [address] PCP - General Family Medicine 03/03/23 Applied Research Director Relationship Specialty Start Date End Date Vinicius Quintana MD [address] [place] [address] PCP - General Family Medicine 03/03/23 Applied Research Director Relationship Specialty Start Date End Date Vinicius Quintana MD [address] [place] [address] PCP - General Family Medicine 03/03/23 Applied Research Director Relationship Specialty Start Date End Date Vinicius Quintana MD [address] [place] [address] PCP - General Acute Hospital Medicine 03/03/23 Applied Research Director Relationship Specialty Start Date End Date Vinicius Quintana MD [address] [place] [address] PCP - General Acute Hospital Medicine 03/01/17 Applied Research Director Relationship Specialty Start Date End Date Vinicius Quintana MD [address] [place] [address] PCP - General Acute Hospital Medicine 03/01/17 Applied Research Director Relationship Specialty Start Date End Date Vinicius Quintana MD [address] [place] [address] [facility] 03/03/23 Applied Research Director Relationship Specialty Start Date End Date Vinicius Quintana MD [address] [place] [address] [facility]CP [facility] 03/03/23 Applied Research Director Relationship Specialty Start Date End Date Vinicius Quintana MD [address] [place] [address] [facility]CP [facility] 03/03/23 Applied Research Director Relationship Specialty Start Date End Date Vinicius Quintana MD [address] [place] [address] [facility]CP [facility] 03/03/23 Applied Research Director Relationship Specialty Start Date End Date Vinicius Quintana MD [address] [place] [address] [facility]CP [facility] 03/03/23 Applied Research Director Relationship Specialty Start Date End Date Vinicius Quintana MD [address] [place], [place] [id number] PCP [facility] 03/03/23 Applied Research Director Relationship Specialty Start Date End Date Benson Dial MD PCP - General 10/08/12 Applied Research Director Relationship Specialty Start Date End Date Vinicius Quintana MD [address] [place] [address] PCP [facility] 03/01/17 Applied Research Director Relationship Specialty Start Date End Date Vinicius Quintana MD [address] [place] [address] PCP [facility] 03/03/23 Applied Research Director Relationship Specialty Start Date End Date Vinicius Quintana MD [address] [place], [place] [id number] [facility]CP [facility] 03/03/23 Reason for Visit (unrecogniz ed [...] BE BASED ON THE PRIMARY CLINICAL RECORDS. [facility]. provides no warranty or guarantee of the accuracy or completeness of information in this document.
--- NOTE | 2024-07-09 10:01 | US_ITS ---
[address] [address] Patient Name: HOMERO RAMIREZ MRN: [id number] date: 1990 Sex: F Assigned Patient Location: US Current Patient Location: Accession/Order Number: [id number] Exam Date: 07/09/2024 10:09 Report Date: 07/09/2024 14:05 At the request of: ANA RHOADES Procedure: US OB BPP w non-stress EXAMINATION: US OB BPP w non-stress HISTORY:Hypertension, placenta previa COMPARISON: Ultrasound OB biophysical 06/23/2024 TECHNIQUE: Ultrasound biophysical profile was performed in the radiology department. BREATHING MOVEMENTS: 2 GROSS BODY MOVEMENTS: 2 TONE: 2 QUALITATIVE AMNIOTIC FLUID VOLUME: 2 PRESENTATION: CEPHALIC HEART RATE: 147.54 bpm AMNIOTIC FLUID VOLUME: 9.40 cm GESTATIONAL AGE: 35 weeks 6 days US/US OB BPP w non-stress IMPRESSION: 1. Total biophysical profile score: 8 Electronically authenticated by: SALLIE MCKEON Date: 07/09/2024 14:05
[2024-07-09 10:37] VITALS: BP 106/75; PULSE 73
== END 2024-07-09 11:24 | disposition home or self-care (01) ==
LOC: US 00:15 → FBC 09:52
PROVIDERS: PCP Family Medicine; Visit Provider Physician Assistant
DX: O16.3 Unspecified maternal hypertension, third trimester (principal); Z3A.35 35 weeks gestation of pregnancy
CPT/HCPCS: 76818

== ENCOUNTER 2024-07-09 22:19 | Observation (INO) | payer OTHER, SELFPAY ==
--- OUTSIDE RECORDS SUMMARY | 2024-07-09 22:24 | XMS_ITS | CCD ---
Author Organization [facility] Care Team Providers Care Radio Television Technical Director Name Role Phone STEPH, DR MURO [...] DEFRANCE, VINICIUS Huntley Primary Care Unavailable SOPHIA RHOADES Attending Unavailable STEPH, SHAKIR Attending Unavailable STEPH, SHAKIR Attending Unavailable SOPHIA RHOADES Attending Unavailable STEPH, SHAKIR Attending Unavailable SOPHIA RHOADES Attending Unavailable SHAKIR CHOI Attending Unavailable Medications [...] Local Anesthetic Start: 03-10-2023 lidocaine-EPINEPHr ine 1 %-1:[id number] injection 1 mL ferrous sulfate 325 mg [...] of ] 05-05-2024 Episodic Residual codes; unclassified (16 sources) Gestation period, 27 weeks; Translations: [27 [...] [33 weeks gestation of ] 06-23-2024 Episodic Residual codes; unclassified (1 source) Gestation period, 35 weeks; Translations: [35 weeks gestation of ] Onset: 07-08-2024 07-08-2024 Episodic Short gestation; low weight; and growth retardation (1 source) Gixtm-utn-zvjuu baby; Translations: [ small for gestational age, [...] source) Cold Like Symptoms Onset: 07-17-2023 Unclassified (2 sources) OB Reminders Onset: 07-08-2024 07-08-2024 Urinary tract [...] 01-02-2024 Episodic Other aftercare (1 source) Other mcfp (current) drug therapy; Translations: [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] Onset: 11-06-2023 Episodic Other [...] Facility US OB BPP W NON-STRESS on 07-09-2024 [place] [address] Ultrasound Report Signed Patient: HOMERO DE LEON MR#: [id number] : 1990 Acct:[id number] Age/Sex: 33 / F ADM Date: 07/09/24 Loc: US Attending Dr: Sophia Rhoades Ordering Physician: Sophia Rhoades Date of Service: 07/09/24 Procedure(s): US OB BPP w non-stress Accession Number(s): [id number] cc: Sophia Rhoades; VINICIUS QUINTANA [address] [address] Patient Name: HOMERO DE LEON MRN: [facility]:[id number] date: 1990 Sex: F Assigned Patient Location: US Current Patient Location: Accession/Order Number: [id number] Exam Date: 07/09/2024 10:09 Report Date: 07/09/2024 14:05 At the request of: SOPHIA RHOADES Procedure: US OB BPP w non-stress EXAMINATION: US OB BPP w non-stress HISTORY:Hypertension , placenta previa COMPARISON: Ultrasound OB biophysical 06/23/2024 TECHNIQUE: Ultrasound biophysical profile was performed in the radiology department. BREATHING MOVEMENTS: 2 GROSS BODY MOVEMENTS: 2 TONE: 2 QUALITATIVE AMNIOTIC FLUID VOLUME: 2 PRESENTATION: CEPHALIC HEART RATE: 147.54 bpm AMNIOTIC FLUID VOLUME: 9.40 cm GESTATIONAL AGE: 35 weeks 6 days US/US OB BPP w non-stress IMPRESSION: 1. Total biophysical profile score: 8 Electronically authenticated by: SALLIE RIZVI Date: 07/09/2024 14:05 Dictated By: Sallie Rizvi M.D. Signed By: 07/09/24 1407 DD/ 04 TD/TT: Hired Hand: [facility] Radiology, Radiologist, MD - 07/09/2024 [place] [address] Ultrasound Report Signed Patient: HOMERO DE LEON MR#: [id number] : 1990 Acct:[id number] Age/Sex: 33 / F ADM Date: 07/09/24 Loc: US Attending Dr: Sophia Rhoades Ordering Physician: Sophia Rhoades Date of Service: 07/09/24 Procedure(s): US OB BPP w non-stress Accession Number(s): [id number] cc: Sophia Rhoades; VINICIUS QUINTANA [place] [address] Patient Name: HOMERO DE LEON MRN: [id number]:[id number] date: 1990 Sex: F Assigned Patient Location: US Current Patient Location: Accession/Order Number: [id number] Exam Date: 07/09/2024 10:09 Report Date: 07/09/2024 14:05 At the request of: SOPHIA RHOADES Procedure: US OB BPP w non-stress EXAMINATION: US OB BPP w non-stress HISTORY:Hypertension , placenta previa COMPARISON: Ultrasound OB biophysical 06/23/2024 TECHNIQUE: Ultrasound biophysical profile was performed in the radiology department. BREATHING MOVEMENTS: 2 GROSS BODY MOVEMENTS: 2 TONE: 2 QUALITATIVE AMNIOTIC FLUID VOLUME: 2 PRESENTATION: CEPHALIC HEART RATE: 147.54 bpm AMNIOTIC FLUID VOLUME: 9.40 cm GESTATIONAL AGE: 35 weeks 6 days US/US OB BPP w non-stress IMPRESSION: 1. Total biophysical profile score: 8 Electronically authenticated by: SALLIE RIZVI Date: 07/09/2024 14:05 Dictated By: Sallie Rizvi M.D. Signed By: 07/09/241406 DD/ 04 TD/TT: Hired Hand: [facility] Radiology Study observation (narrative) [facility] US OB BPP W NON-STRESS Ordered By: Radiologist Radiology on 07-09-2024 [facility] Work Phone: US OB BPP W NON-STRESS on 06-23-2024 [place] [address] Ultrasound Report Signed Patient: HOMERO DE LEON MR#: [id number] : 1990 Acct:[id number] Age/Sex: 33 / F ADM Date: Loc: [facility] 251-[address]: Shakir Choi D.O. Ordering Physician: Shakir Choi D.O. Date of Service: 06/23/24 Procedure(s): US OB BPP w non-stress Accession Number(s): [id number] cc: VINICIUS QUINTANA ; Shakir Choi D.O. [facility] [place] [address] Patient Name: HOMERO DE LEON MRN: [facility]:[id number] date: 1990 Sex: F Assigned Patient Location: [facility] Current Patient Location: [facility] Accession/Order Number: [id number] Exam Date: 06/23/2024 14:01 Report Date: 06/23/2024 [...] limits of normal. Electronically authenticated by: SALLIE RIZVI Date: 06/23/2024 14:27 Dictated By: Sallie Rizvi M.D. Signed By: 06/23/24 1430 DD/ 1427 TD/TT: Hired Hand: [facility] Radiology, Radiologist, - 06/23/2024 [place] [address] Ultrasound Report Signed Patient: HOMERO DE LEON MR#: [id number] : 1990 Acct:[id number] Age/Sex: 33 / F ADM Date: Loc: [facility] 251-[address]: Shakir Choi D.O. Ordering Physician: Shakir Choi D.O. Date of Service: 06/23/24 Procedure(s): US OB BPP w non-stress Accession Number(s): [id number] cc: VINICIUS QUINTANA ; Shakir Choi D.O. [place] [id number] Patient Name: HOMERO DE LEON MRN: [id number] date: 1990 Sex: F Assigned Patient Location: [facility] Current Patient Location: [facility] Accession/Order Number: [id number] Exam Date: 06/23/2024 14:01 Report Date: 06/23/2024 [...] limits of normal. Electronically authenticated by: SALLIE RIZVI Date: 06/23/2024 14:27 Dictated By: Sallie Rizvi M.D. Signed By: 06/23/24 1430 DD/ 1427 TD/TT: Hired Hand: [facility] Radiology Study observation (narrative) [facility] US OB BPP W NON-STRESS Ordered By: Radiologist Radiology on 06-23-2024 [facility] Work Phone: Urinalysis macro (dipstick) panel (U)on 06-23-2024 Bilirubin, UA Positive Negative - 4(70) +++ mg/dL [facility] Comment on above: small Blood, UA Positive Negative - 50 Papo/mcL [facility] Comment on above: trace Clarity, UA Clear [facility] Color, UA Sera [facility] Glucose, UA Negative Negative - 1999(110) ++++ mg/dL [facility] Interpretation and review of laboratory results Abnormal [facility] Ketones, UA Positive Negative - 160(16) ++++ mg/dL [facility] Comment on above: 15 Leukocytes, UA Positive Negative - 500+++ Akash/mcL [facility] Comment on above: large Nitrite, UA Positive Negative - Positive [facility] pH, UA 6.5 5 - 9 [facility] Protein, UA Positive Negative - 2000(20) ++++ mg/dL [facility] Comment on above: 100 Spec Grav, UA 1.025 1 - 1.03 [facility] Urobilinogen, UA 1.0 0.2 - 12 [...] are dependent on adequate specimen collection. Normal [facility] Comment on above: Performed By: #### 2 106-3 #### [facility] ([id number]) [address] [place] [address] 31259 DRUG SCREEN, URINEon 025 AMPHETAMINE/METHAMP Negative Normal NEG [facility] Comment on above: Result Comment: AMPH /METH screening cut off = 1000 ng/mL Performed By: #### 2 106-3 #### [facility] ([id number]) [address] [place] [address] 91822 BARBITURATES Negative Normal NEG [facility] Comment on above: Result Comment: Allison iturates screening cut off value = 200 ng/mL Performed By: #### 2 106-3 #### [facility] ([id number]) [address] [place] [address] 07733 BENZODIAZEPINES Negative Normal NEG [facility] Comment on above: Result Comment: Dave odiazepines screening cut off value = 200 ng/mL Performed By: #### 2 106-3 #### [facility] ([id number]) [address] [place] [address] 12351 CANNABINOIDS Negative Normal NEG [facility] Comment on above: Result Comment: Eddie abinoids/THC screening cut off value = 50 ng/mL Performed By: #### 2 106-3 #### [facility] ([id number]) [address] [place] [address] 45615 COCAINE METABOLITE Negative Normal NEG [facility] Comment on above: Result Comment: Coca ine screening cut off value = 300 ng/mL Performed By: #### 2 106-3 #### [facility] ([id number]) [address] [place] [address] 01637 ECSTASY Negative Normal NEG [facility] Comment on above: Result Comment: Ecst asy screening cut off value = 500 ng/mL This report is intended for use in clinical monitoring or management of patients. Performed By: #### 2 106-3 #### [facility] ([id number]) [address] [place] [address] 74007 METHADONE Negative Normal [facility] Comment on above: Result Comment: Meth adone screening cut off value = 300 ng/mL. Performed By: #### 2 106-3 #### [facility] ([id number]) [address] [place] [address] 65234 OPIATES Negative Normal NEG [facility] Comment on above: Result Comment: Opia victoria screening cut off value = 300 ng/mL NOTE: This test is used for the detection of codeine, hydrocodone (>1000 ng/mL), morphine and hydromorphone (>900 ng/mL) in urine. Performed By: #### 2 106-3 #### [facility] ([id number]) [address] [place] [address] 70678 OXYCODONE Negative Normal NEG [facility] Comment on above: Result Comment: Oxyc odone screening cut off value = 300 ng/mL NOTE: This test is used for the detection of oxycodone and oxymorphone in urine. Performed By: #### 2 106-3 #### [facility] ([id number]) [address] [place] [address] 07499 PHENCYCLIDINE Negative Normal NEG [facility] Comment on above: Result Comment: Phen cyclidine screening cut off value = 25 ng/mL Performed By: #### 2 106-3 #### [facility] ([id number]) [address] [place] [address] 49482 Fibronectin. Ql (Vag fl d)on 06-22-2024 FIBRONECTIN Positive Abnormal NEG [facility] Comment on above: Performed By: #### 2 106-3 #### [facility] ([id number]) [address] [place] [address] 36184 STREP B SCREEN CULTUREon S. agalactiae Org specific cx Ql (Vag+Rectum) CULTURE RESULTS POSITIVE FOR GROUP B STREPTOCOCCUS BY NUCLEIC ACID AMPLIFICATION : Group B streptococci remain universally susceptible to penicillin, ampicillin, and cefazolin. Resistance to clindamycin can occur. Please contact laboratory within 48 hr if clindamycin susceptibility testing is needed. Normal [facility] Comment on above: Performed By: #### 2 106-3 #### [facility] ([id number]) [address] [place] [address] 07981 URINALYSISon 06-22-2024 Bilirubin Ql (U) Negative Normal NEG [facility] Comment on above: Performed By: #### 2 106-3 #### [facility] ([id number]) [address] [place] [address] 22412 BLOOD/HGB MODERATE Abnormal NEG [facility] Comment on above: Performed By: #### 2 106-3 #### [facility] ([id number]) [address] [place] [address] 66556 Color (U) YELLOW Normal YELLOW [facility] Comment on above: Performed By: #### 2 106-3 #### [facility] ([id number]) [address] [place] [address] 91158 Glucose Ql (U) Negative Normal NEG [facility] Comment on above: Performed By: #### 2 106-3 #### [facility] ([id number]) [address] [place] [address] 52822 Ketones Ql (U) >80 Abnormal NEG [facility] Comment on above: Performed By: #### 2 106-3 #### [facility] ([id number]) [address] [place] [address] 14550 Leukocyte esterase Test strip Ql (U) Large Abnormal NEG [facility] Comment on above: Performed By: #### 2 106-3 #### [facility] ([id number]) [address] [place] [address] 86754 Nitrite Ql (U) Negative Normal NEG [facility] Comment on above: Performed By: #### 2 106-3 #### [facility] ([id number]) [address] [place] [address] [place] [address] pH (U) 7.0 [pH] Normal 5.0-8.5 [facility] Comment on above: Performed By: #### 2 106-3 #### [facility] ([id number]) [address] [place] [address] 81458 Protein Ql (U) >300 Abnormal NEG [facility] Comment on above: Performed By: #### 2 106-3 #### [facility] ([id number]) [address] [place] [address] 17105 R.B.CELLS 6 /hpf High 0-5 [facility] Comment on above: Performed By: #### 2 106-3 #### [facility] ([id number]) [address] [place] [address] 05167 Specific gravity (U) [Rel density] 1.025 Normal 1.003-1.035 [facility] Comment on above: Performed By: #### 2 106-3 #### [facility] ([id number]) [address] [place] [address] 46592 SQUAMOUS EPITHELIUM 5 /hpf Normal 0-5 [facility] Comment on above: Performed By: #### 2 106-3 #### [facility] ([id number]) [address] [place] [address] 30462 TURBIDITY CLEAR Normal CLEAR [facility] Comment on above: Performed By: #### 2 106-3 #### [facility] ([id number]) [address] [place] [address] 02785 Urobilinogen Qn (U) 1.0 {Migue'U}/dL Normal <1.1 [facility] Comment on above: Performed By: #### 2 106-3 #### [facility] ([id number]) [address] [place] [address] 38787 W.B.CELLS 11 /hpf High 0-5 [facility] Comment on above: Performed By: #### 2 106-3 #### [facility] ([id number]) [address] [place] [address] 67626 URINE CULTUREon 06-22-2024 Bacteria identified Cx Nom (U) CULTURE RESULTS <10,000 ORGANISMS/ML NORMAL URO GENITAL JOHN PAUL Normal [facility] Comment on above: Performed By: #### 2 106-3 #### [facility] ([id number]) [address] [place] [address] 78127 VAGINITIS PANEL PCRon 2024 VAGINITIS PANEL PCR [...] clinical presentation to determine patient diagnosis. Normal [facility] Comment on above: Performed By: #### 2 106-3 #### [facility] ([id number]) [address] [place] [address], [place] [address] Urinalysis macro (dipstick) panel (U)on 05-24-2024 Bilirubin, UA Negative Negative - 4(70) +++ mg/dL [facility] Blood, UA Positive Negative - 50 Papo/mcL [facility] Clarity, UA Clear [facility] Color, UA Yellow [facility] Glucose, UA Negative Negative - 1999(110) ++++ mg/dL [facility] Interpretation and review of laboratory results Abnormal [facility] Ketones, UA Negative Negative - 160(16) ++++ mg/dL [facility] Leukocytes, UA Negative Negative - 500+++ Akash/mcL [facility] Nitrite, UA Negative Negative - Positive [facility] pH, UA 7 5 - 9 [facility] Protein, UA Trace Negative - 2000(20) ++++ mg/dL [facility] Spec Grav, UA 1.02 1 - 1.03 [facility] Urobilinogen, UA 1.0 0.2 - 12 mg/dL [facility] COMPLETE BLOOD COUNTon 05-13 Erythrocyte distribution width (RBC) [Ratio] 12.9 % Normal 11.5-15.0 [facility] Comment on above: Performed By: #### N UM #### [facility] ([id number]) [address] [place] [address] 46313 Hematocrit (Bld) [Volume fraction] 30.2 % Low 35-47 [facility] Comment on above: Performed By: #### N UM #### [facility] ([id number]) [address] [place] [address] 94488 Hemoglobin (Bld) [Mass/Vol] 10.4 g/dL Low 11.7-15.5 [facility] Comment on above: Performed By: #### N UM #### [facility] ([id number]) [address] [place] [address] 25108 MCH (RBC) [Entitic mass] 31.3 pg Normal 27-34 [facility] Comment on above: Performed By: #### N UM #### [facility] ([id number]) [address] [place] [address] 05123 MCHC (RBC) [Mass/Vol] 34.3 g/dL Normal 32-36 [facility] Comment on above: Performed By: #### N UM #### [facility] ([id number]) [address] [place] [address] 38787 MCV (RBC) [Entitic vol] 92 fL Normal 80-100 [facility] Comment on above: Performed By: #### N UM #### [facility] ([id number]) [address] [place] [address] 99313 Platelet mean volume (Bld) [Entitic vol] 8.7 fL Normal 7-12 [facility] Comment on above: Performed By: #### N UM #### [facility] ([id number]) [address] [place] [address] 90535 Platelets (Bld) [#/Vol] 285 10*3/uL Normal 150-450 [facility] Comment on above: Performed By: #### N UM #### [facility] ([id number]) [address] [place] [address] 81106 RBC COUNT 3.31 X10E12/L Low 3.80-5.20 [facility] Comment on above: Performed By: #### N UM #### [facility] ([id number]) [address] [place] [address] 01174 WBC (Bld) [#/Vol] 13.6 10*3/uL High 4.0-11.0 [facility] Comment on above: Performed By: #### N UM #### [facility] ([id number]) [address] [place] [address] 75043 COMPREHENSIVE METABOLIC PANE Baljit 05-13-2024 Albumin [Mass/Vol] 3.3 g/dL Normal 3.2-5.3 [facility] Comment on above: Performed By: #### N UM #### [facility] ([id number]) [address] [place] [address] 45467 ALP [Catalytic activity/Vol] 52 U/L Normal 39-130 [facility] Comment on above: Performed By: #### N UM #### [facility] ([id number]) [address] [place] [address] 29564 ALT [Catalytic activity/Vol] 10 U/L Normal 0-31 [facility] Comment on above: Performed By: #### N UM #### [facility] ([id number]) [address] [place] [address] 17421 Anion gap [Moles/Vol] 9 mmol/L Normal 5-15 [facility] Comment on above: Performed By: #### N UM #### [facility] ([id number]) [address] [place] [address] 80357 AST [Catalytic activity/Vol] 16 U/L Normal 0-41 [facility] Comment on above: Performed By: #### N UM #### [facility] ([id number]) [address] [place] [address] 68179 Bilirubin [Mass/Vol] 0.8 mg/dL Normal 0.3-1.2 [facility] Comment on above: Performed By: #### N UM #### [facility] ([id number]) [address] [place] [address] 69306 Calcium [Mass/Vol] 9.4 mg/dL Normal 8.5-10.5 [facility] Comment on above: Performed By: #### N UM #### [facility] ([id number]) [address] [place] [address] 18732 Chloride [Moles/Vol] 104 mmol/L Normal 98-109 [facility] Comment on above: Performed By: #### N UM #### [facility] ([id number]) [address] [place] [address] 33885 CO2 [Moles/Vol] 22 mmol/L Normal 22-32 [facility] Comment on above: Performed By: #### N UM #### [facility] ([id number]) [address] [place] [address] 13235 Creatinine [Mass/Vol] 0.63 mg/dL Normal 0.40-1.00 [facility] Comment on above: Result Comment: METH OD TRACEABLE TO IDMS STANDARD Performed By: #### N UM #### [facility] ([id number]) [address] [place] [address] 01839 eGFR (CKD-EPI) NON-RACE DEPENDENT >90 Normal >59 [facility] Comment on above: Result Comment: Reported eGFR is based on the CKD-EPI 2020 equation that does not use a race coefficient. Performed By: #### N UM #### [facility] ([id number]) [address] [place] [address] 97036 Glucose [Mass/Vol] 99 mg/dL Normal 65-99 [facility] Comment on above: Performed By: #### N UM #### [facility] ([id number]) [address] [place] [address] 82291 Potassium [Moles/Vol] 2.8 mmol/L Low 3.5-5.0 [facility] Comment on above: Performed By: #### N UM #### [facility] ([id number]) [address] [place] [address] 92446 Protein [Mass/Vol] 6.9 g/dL Normal 6.0-8.0 [facility] Comment on above: Performed By: #### N UM #### [facility] ([id number]) [address] [place] [address] 25409 Sodium [Moles/Vol] 135 mmol/L Normal 134-146 [facility] Comment on above: Performed By: #### N UM #### [facility] ([id number]) [address] [place] [address] 49098 Urea nitrogen [Mass/Vol] 7 mg/dL Normal 5-23 [facility] Comment on above: Performed By: #### N UM #### [facility] ([id number]) [address] [place] [address] 50448 Fibronectin. Ql (Vag fl d)on 05-13-2024 FIBRONECTIN Negative Normal NEG [facility] Comment on above: Performed By: #### N UM #### [facility] ([id number]) [address] [place] [address] 16775 STREP B SCREEN CULTUREon S. agalactiae Org specific cx Ql (Vag+Rectum) CULTURE RESULTS NEGATIVE FOR GROUP B STREPTOCOCCUS BY NUCLEIC ACID AMPLIFICATION Normal [facility] Comment on above: Performed By: #### 2 106-3 #### [facility] ([id number]) [address] [place] [address], [place] [address] URINALYSISon 05-13-2024 Bilirubin Ql (U) Negative Normal NEG [facility] Comment on above: Performed By: #### N UM #### [facility] ([id number]) [address] [place] [address], [place] [address] BLOOD/HGB Trace Abnormal NEG [facility] Comment on above: Performed By: #### N UM #### [facility] ([id number]) [address] [place] [address] [place] [address] Color (U) YELLOW Normal YELLOW [facility] Comment on above: Performed By: #### N UM #### [facility] ([id number]) [address] [place] [address], [place] [address] Glucose Ql (U) Negative Normal NEG [facility] Comment on above: Performed By: #### N UM #### [facility] ([id number]) [address] [place] [address] [place] [address] Ketones Ql (U) Negative Normal NEG [facility] Comment on above: Performed By: #### N UM #### [facility] ([id number]) [address] [place] [address] [place] [address] Leukocyte esterase Test strip Ql (U) Large Abnormal NEG [facility] Comment on above: Performed By: #### N UM #### [facility] ([id number]) [address] [place] [address], [place] [address] Nitrite Ql (U) Negative Normal NEG [facility] Comment on above: Performed By: #### N UM #### [facility] ([id number]) [address] [place] [address], [place] [address] pH (U) 7.0 [pH] Normal 5.0-8.5 [facility] Comment on above: Performed By: #### N UM #### [facility] ([id number]) [address] [place] [id number] Protein Ql (U) Negative Normal NEG [facility] Comment on above: Performed By: #### N UM #### [facility] ([id number]) [address] [place] [address] 55012 R.B.CELLS 0 to 1 Normal 0-5 [facility] Comment on above: Performed By: #### N UM #### [facility] ([id number]) [address] [place] [address] 37293 Specific gravity (U) [Rel density] 1.010 Normal 1.003-1.035 [facility] Comment on above: Performed By: #### N UM #### [facility] ([id number]) [address] [place] [address] 64510 SQUAMOUS EPITHELIUM 5 /hpf Normal 0-5 [facility] Comment on above: Performed By: #### N UM #### [facility] ([id number]) [address] [place] [address] 01396 TURBIDITY CLEAR Normal CLEAR [facility] Comment on above: Performed By: #### N UM #### [facility] ([id number]) [address] [place] [address] 03689 Urobilinogen Qn (U) 0.2 {Migue'U}/dL Normal <1.1 [facility] Comment on above: Performed By: #### N UM #### [facility] ([id number]) [address] [place] [address] 19224 W.B.CELLS 5 /hpf Normal 0-5 [facility] Comment on above: Performed By: #### N UM #### [facility] ([id number]) [address] [facility] [place] [address] [place] BIOPHYSICAL PROFILE FET W O NSTon [...] Bueno MD on 05/13/2024 8:41 AM [facility] Panel Informationon 05-11 STAPHYLOCOCCUS EPIDERMIDIS, [...] Not detected [facility] SERRATIA MARCESCENS 0 [facility] SERRATIA MARCESCENS Not detected [facility] STAPHYLOCOCCUS AUREUS 0 [facility] S [facility] STAPHYLOCOCCUS AUREUS Not detected N OMS [facility] STREPTOCOCCUS AGALACTIAE (GROUP B STREP) 0 [facility] STREPTOCOCCUS AGALACTIAE (GROUP B STREP) Not detected [facility] STREPTOCOCCUS PYOGENES (GROUP A STREP) 0 [facility] STREPTOCOCCUS PYOGENES (GROUP A STREP) Not detected [facility] Urinalysis macro (dipstick) panel (U)on 05-10-2024 Bilirubin, UA Negative Negative - 4(70) +++ mg/dL [facility] Blood, UA Negative Negative - 50 Papo/mcL [facility] Clarity, UA Clear [facility] Color, UA Dark Sera [facility] Glucose, UA Negative Negative - 1999(110) ++++ mg/dL [facility] Interpretation and review of laboratory results Abnormal [facility] Ketones, UA Negative Negative - 160(16) ++++ mg/dL [facility] Leukocytes, UA Negative Negative - 500+++ Akash/mcL [facility] Nitrite, UA Positive Negative - Positive [facility] pH, UA 7.5 5 - 9 [facility] Protein, UA Positive Negative - 1999(20) ++++ mg/dL [facility] Comment on above: 30mg/dL Spec Grav, UA 1.02 1 - 1.03 [facility] Urobilinogen, UA 1.0 0.2 - 12 mg/dL [facility] Urinalysis macro (dipstick) panel (U)on 04-12-2024 Bilirubin, UA Negative Negative - 4(70) +++ mg/dL [facility] Blood, UA Negative Negative - 50 Papo/mcL [facility] Clarity, UA Clear [facility] Color, UA Yellow [facility] Glucose, UA Negative Negative - 1999(110) ++++ mg/dL [facility] Interpretation and review of laboratory results Abnormal [facility] Ketones, UA Positive Negative - 160(16) ++++ mg/dL [facility] Leukocytes, UA Negative Negative - 500+++ Akash/mcL [facility] Nitrite, UA Negative Negative - Positive [facility] pH, UA 7 5 - 9 [facility] Protein, UA Negative Negative - 1999(20) ++++ mg/dL [facility] Spec Grav, UA 1.02 1 - 1.03 [facility] Urobilinogen, UA 0.2 0.2 - 12 [...] are dependent on adequate specimen collection. Normal [facility] Comment on above: Performed By: #### N UM #### [facility] ([id number]) [address] [place] [address] 19050 HIV 1+2 Ab+HIV1 p24 Ag IA Ql on 04-09-2024 HIV 1 and 2 Ab/Ag Screen Non-Reactive Normal NRCT [facility] Comment on above: Result Comment: This information [...] diagnoses. Performed By: #### N UM #### [facility] ([id number]) [address] [place] [address] 82552 T. pallidum IgG+IgM IA Ql (S )on 04-09-2024 Syphilis Total <0.2 Normal 0.0-0.8 [facility] Comment on above: Result Comment: NON REACTIVE No serologic evidence of infection to Treponema pallidum (syphilis). Repeat testing may be considered in patients with suspected acute or primary syphilis in 2 to 4 weeks. Performed By: #### N UM #### [facility] ([id number]) [address] [place] [address], [place] [address] URINALYSISon 04-09-2024 Bilirubin Ql (U) Negative Normal NEG [facility] Comment on above: Performed By: #### N UM #### [facility] ([id number]) [address] [place] [address], [place] [address] BLOOD/HGB Negative Normal NEG [facility] Comment on above: Performed By: #### N UM #### [facility] ([id number]) [address] [place] [address], [place] [address] Color (U) YELLOW Normal YELLOW [facility] Comment on above: Performed By: #### N UM #### [facility] ([id number]) [address] [place] [address], [place] [address] Glucose Ql (U) Negative Normal NEG [facility] Comment on above: Performed By: #### N UM #### [facility] ([id number]) [address] [place] [address], [place] [address] Ketones Ql (U) Trace Abnormal NEG [facility] Comment on above: Performed By: #### N UM #### [facility] ([id number]) [address] [place] [address], [place] [address] Leukocyte esterase Test strip Ql (U) Trace Abnormal NEG [facility] Comment on above: Performed By: #### N UM #### [facility] ([id number]) [address] [place] [address], [place] [address] Nitrite Ql (U) Negative Normal NEG [facility] Comment on above: Performed By: #### N UM #### [facility] ([id number]) [address] [place] [address], [place] [address] pH (U) 7.0 [pH] Normal 5.0-8.5 [facility] Comment on above: Performed By: #### N UM #### [facility] ([id number]) [address] [place] [address] 22175 Protein Ql (U) Trace Abnormal NEG [facility] Comment on above: Performed By: #### N UM #### [facility] ([id number]) [address] [place] [address] 28606 R.B.CELLS 2 /hpf Normal 0-5 [facility] Comment on above: Performed By: #### N UM #### [facility] ([id number]) [address] [place] [address] 81352 Specific gravity (U) [Rel density] 1.025 Normal 1.003-1.035 [facility] Comment on above: Performed By: #### N UM #### [facility] ([id number]) [address] [place] [address] 67286 SQUAMOUS EPITHELIUM 4 /hpf Normal 0-5 [facility] Comment on above: Performed By: #### N UM #### [facility] ([id number]) [address] [place] [address] 49663 TURBIDITY CLEAR Normal CLEAR [facility] Comment on above: Performed By: #### N UM #### [facility] ([id number]) [address] [place] [address] 35132 Urobilinogen Qn (U) 0.2 {Migue'U}/dL Normal <1.1 [facility] Comment on above: Performed By: #### N UM #### [facility] ([id number]) [address] [place] [address] 93860 W.B.CELLS 3 /hpf Normal 0-5 [facility] Comment on above: Performed By: #### N UM #### [facility] ([id number]) [address] [place] [address] No Panel Informationon 04-06 Interpretation and review of laboratory results Abnormal [facility] UA (CLEAN/CATCH) 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 YELLOW YELLOW [facility] GLUCOSE URINE UA Negative NEGATIVE mg/dL [facility] Ketones Ql (U) Negative NEGATIVE mg/dL [facility] Leukocyte esterase Test strip Ql (U) SMALL Abnormal NEGATIVE [facility] NITRITE URINE Negative NEGATIVE [facility] pH (U) 7.0 [pH] 5.0 - 9.0 [facility] PROTEIN URINE Negative NEG/TRACE mg/dL [facility] SPECIFIC GRAVITY URINE 1.010 1.005 - 1.025 [facility] URINE MICROSCOPIC INDICATED YES [facility] UROBILINOGEN URINE 1.0 EU/dL 0.2 - 1.0 EU/dL [facility] URINE MICROSCOPIC ONLYon 04-06-2024 BACTERIA URINE TRACE Abnormal NONE SEEN #/HPF [facility] CAST SEEN? NONE SEEN NONE SEEN #/LPF [facility] CRYSTALS SEEN? None Seen None Seen #/HPF [facility] MUCUS URINE NONE SEEN NONE SEEN [facility] SQUAMOUS EPITHELIAL CELL URINE FEW Abnormal NONE/RARE #/LPF [facility] RBC 0-2 [facility] WBC 2-5 Abnormal NONE SEEN #/HPF [facility] URINE CULTURE INDICATED YES [facility] Urinalysis macro (dipstick) panel (U)on 03-15-2024 Bilirubin, UA Negative Negative - 4(70) +++ mg/dL [facility] Blood, UA Negative Negative - 50 Papo/mcL [facility] Clarity, UA Clear [facility] Color, UA Yellow [facility] Glucose, UA Negative Negative - 1999(110) ++++ mg/dL [facility] Interpretation and review of laboratory results Abnormal [facility] Ketones, UA Positive Negative - 160(16) ++++ mg/dL [facility] Leukocytes, UA Positive Negative - 500+++ Akash/mcL [facility] Nitrite, UA Positive Negative - Positive [facility] pH, UA 7 5 - 9 [facility] Protein, UA Positive Negative - 1999(20) ++++ mg/dL [facility] Spec Grav, UA 1.02 1 - 1.03 [facility] Urobilinogen, UA 1.0 0.2 - 12 [...] are dependent on adequate specimen collection. Normal [facility] Comment on above: Performed By: #### C GS #### [facility] ([id number]) [address] [place] [address] [facility] ([id number]) [address] [place] [address] [address] [place] [address] HCG ( test) Ql (U)o n 02-26-2024 Beta HCG ( test) Ql (U) Positive Abnormal NEG [facility] Comment on above: Performed By: #### 2 106-3 #### [facility] ([id number]) [address] [place] [address] 85085 URINE CULTUREon 02-26-2024 Bacteria identified Cx Nom [...] F TRIMETH/SULFAMETHOXA ZOLE S <=1/19 F Susceptible [facility] Comment on above: Performed By: #### N UM #### [facility] ([id number]) [address] [place] [address] [place] [address] URN MACROSCOPIC NURon 2023 BILIRUBIN ALEKSANDRA Negative Normal NEG [facility] Comment on above: Performed By: #### N UM #### [facility] ([id number]) [address] [place] [address] 20651 BLOOD/HGB ALEKSANDRA Trace Abnormal NEG [facility] Comment on above: Performed By: #### N UM #### [facility] ([id number]) [address] [place] [address] 18201 GLUCOSE ALEKSANDRA Negative Normal NEG [facility] Comment on above: Performed By: #### N UM #### [facility] ([id number]) [address] [place] [address] 26617 KETONES ALEKSANDRA 80 mg/dL Abnormal NEG [facility] Comment on above: Performed By: #### N UM #### [facility] ([id number]) [address] [place] [address] 22199 LEUKOCYTE ESTERASE ALEKSANDRA Negative Normal NEG [facility] Comment on above: Performed By: #### N UM #### [facility] ([id number]) [address] [place] [address] 08092 NITRITE ALEKSANDRA Negative Normal NEG [facility] Comment on above: Performed By: #### N UM #### [facility] ([id number]) [address] [place] [address] [place] [address] PH ALEKSANDRA 6.0 Normal 5.0-8.5 [facility] Comment on above: Performed By: #### N UM #### [facility] ([id number]) [address] [place] [address] 14363 PROTEIN ALEKSANDRA >=300 Abnormal NEG [facility] Comment on above: Performed By: #### N UM #### [facility] ([id number]) [address] [place] [address] [place] [address] SPECIFIC GRAVITY ALEKSANDRA >=1.030 Normal 1.003-1.035 [facility] Comment on above: Performed By: #### N UM #### [facility] ([id number]) [address] [place] [address] 11237 UROBILINOGEN ALEKSANDRA 1.0 eu/dL Normal <1.1 [facility] Comment on above: Performed By: #### N UM #### [facility] ([id number]) [address] [place] [address] 65522 VAGINITIS PANEL PCRon 2023 VAGINITIS PANEL PCR [...] clinical presentation to determine patient diagnosis. Normal [facility] Comment on above: Performed By: #### N UM #### [facility] ([id number]) [address] [place] [address] 07128 URETHRITIS/DISCHARGE PLUS VA GINITIS (HTRX)on 01-31-2024 ATOPOBIUM VAGINAE 20.240 Abnormal [facility] ATOPOBIUM VAGINAE Detected Abnormal [facility] BVAB 2,3 (BACTERIAL VAGINOSIS ASSOCIATED BACTERIA 2, 3); MOBILUNCUS SPP 14.521 Abnormal [facility] BVAB 2,3 (BACTERIAL VAGINOSIS ASSOCIATED BACTERIA 2, 3); MOBILUNCUS SPP Detected Abnormal [facility] OZZIE ALBICANS, PARAPSILOSIS, TROPICALIS 0.000 [facility] OZZIE ALBICANS, PARAPSILOSIS, TROPICALIS Not detected [facility] OZZIE GLABRATA 0.000 [facility] OZZIE GLABRATA Not detected [facility] OZZIE KRUSEI 0.000 [facility] OZZIE KRUSEI Not detected [facility] CHLAMYDIA TRACHOMATIS 0.000 N[facility] CHLAMYDIA TRACHOMATIS Not detected N [facility] ERMB, C; MEFA 22.470 Abnormal [facility] ERMB, C; MEFA Detected Abnormal [facility] GARDNERELLA VAGINALIS 25.182 Abnormal [facility] GARDNERELLA VAGINALIS Detected Abnormal [facility] Interpretation and review of laboratory results Abnormal [facility] MEGASPHAERA (TYPES 1, 2) 21.331 Abnormal [facility] MEGASPHAERA (TYPES 1, 2) Detected Abnormal [facility] MYCOPLASMA GENITALIUM 0.000 [facility] MYCOPLASMA GENITALIUM Not detected [facility] NEISSERIA GONORRHOEAE 0.000 [facility] NEISSERIA GONORRHOEAE Not detected N [facility] TET B, TET M 22.938 Abnormal [facility] TET B, TET M Detected Abnormal [facility] TRICHOMONAS VAGINALIS 0.000 [facility] TRICHOMONAS VAGINALIS Not detected N [facility] Urinalysis macro (dipstick) panel (U)on 01-29-2024 Bilirubin, UA Positive Negative - 4(70) +++ mg/dL [facility] Comment on above: small Blood, UA Negative Negative - 50 Papo/mcL [facility] Clarity, UA Cloudy [facility] Color, UA Yellow [facility] Glucose, UA Negative Negative - 1999(110) ++++ mg/dL [facility] Interpretation and review of laboratory results Abnormal [facility] Ketones, UA Positive Negative - 160(16) ++++ mg/dL [facility] Comment on above: trace Leukocytes, UA Negative Negative - 500+++ Akash/mcL [facility] Nitrite, UA Positive Negative - Positive [facility] pH, UA 6.0 5 - 9 [facility] Protein, UA Trace Negative - 2000(20) ++++ mg/dL [facility] Spec Grav, UA 1.030 1 - 1.03 [facility] Urobilinogen, UA 4.0 0.2 - 12 mg/dL [facility] ALL CBC WITH AUTO DIFFon BASOPHILS ABSOLUTE AUTO 0.0 [facility] Basophils/100 WBC (Bld) 0.3 % 0.2 - 2.0 % [facility] Eosinophils/100 WBC (Bld) 2.3 % 0.9 - 7.0 % [facility] Erythrocyte distribution width (RBC) [Ratio] 12.7 % 11.0 - 15.0 % [facility] Hematocrit (Bld) [Volume fraction] 31.8 % Low 36.0 - 48.0 % [facility] Hemoglobin (Bld) [Mass/Vol] 10.3 g/dL Low 12.0 - 16.0 g/dL [facility] IMMATURE GRANULOCYTES ABS AUTO 0.05 High [facility] Immature granulocytes/100 WBC (Bld) 0.4 % 0.0 - 0.5 % [facility] Interpretation and review of laboratory results Abnormal [facility] LYMPHOCYTES ABSOLUTE AUTO 2.4 [facility] Lymphocytes/100 WBC (Bld) 21.2 % 20.5 - 60.0 % [facility] MCH (RBC) [Entitic mass] 29.9 pg 26.7 - 34.0 pg [facility] MCHC (RBC) [Mass/Vol] 32.4 g/dL 29.9 - 35.2 g/dL [facility] MCV (RBC) [Entitic vol] 92.2 fL 81.0 - 99.0 fL [facility] MONOCYTES ABSOLUTE AUTO 0.8 [facility] Monocytes/100 WBC (Bld) 6.9 % 1.7 - 12.0 % [facility] NEUTROPHILS ABSOLUTE AUTO 8.0 High [facility] Neutrophils/100 WBC (Bld) 68.9 % 43.0 - 75.0 % [facility] Platelet mean volume (Bld) [Entitic vol] 10.9 fL 9.5 - 13.5 fL [facility] TBH EO # 0.3 [facility] TBH PLT 385 [facility] RBC 3.45 Low [facility] TB WBC 11.5 High [facility] ALL TYPE AND SCREENon 2023 ABO and Rh group Nom (Bld) Blood group B Rh(D) positive [facility] MLR HEMOGLOBIN A1Con 024 Glucose [Mass/Vol] 82 mg/dL [facility] HbA1c (Bld) [Mass fraction] 4.5 % 4.5 - 6.2 % [facility] Comment on above: ADA RECOMMENDED LIMI T 4.0 - 6.0 ADA THERAPEUTIC TARGET < 7.0 ACTION SUGGESTED > 7.0 [facility] CBC AND AUTO DIFFon 12-20-19 24 ABSOLUTE BASOPHIL 0.1 X10E9/L Normal 0.0-0.2 [facility] Comment on above: Performed By: #### C CEE ATKINSON, #### [facility] ([id number]) [address] [place] [address] 32968 ABSOLUTE NEUTROPHIL 11.7 X10E9/L High 1.5-6.6 [facility] Comment on above: Performed By: #### Marco Antonio ATKINSON CMP, #### [facility] ([id number]) [address] [place] [address] 74592 Basophils/100 WBC (Bld) 0.4 % Normal [facility] Comment on above: Performed By: #### Marco Antonio ATKINSON CMP, #### [facility] ([id number]) [address] [place] [address] 31106 Eosinophils (Bld) [#/Vol] 0.3 10*3/uL Normal 0.0-0.4 [facility] Comment on above: Performed By: #### Marco Antonio ATIKNSON CMP, #### [facility] ([id number]) [address] [place] [address] 94197 Eosinophils/100 WBC (Bld) 1.6 % Normal [facility] Comment on above: Performed By: #### Marco Antonio ATKINSON CMP, #### [facility] ([id number]) [address] [place] [address] 46004 Erythrocyte distribution width (RBC) [Ratio] 13.0 % Normal 11.5-15.0 [facility] Comment on above: Performed By: #### Marco Antonio ATKINSON CMP, #### [facility] ([id number]) [address] [place] [address] 35300 Hematocrit (Bld) [Volume fraction] 33.1 % Low 35-47 [facility] Comment on above: Performed By: #### C CHINA CMP, #### [facility] ([id number]) [address] [place] [address] 80933 Hemoglobin (Bld) [Mass/Vol] 11.1 g/dL Low 11.7-15.5 [facility] Comment on above: Performed By: #### Marco Antonio ATKINSON CMP, #### [facility] ([id number]) [address] [place] [address] 23237 Lymphocytes (Bld) [#/Vol] 2.6 10*3/uL Normal 1.0-3.5 [facility] Comment on above: Performed By: #### Marco Antonio [facility], #### [facility] ([id number]) [address] [place] [address] 91782 Lymphocytes/100 WBC (Bld) 16.5 % Normal [facility] Comment on above: Performed By: #### Marco Antonio ATKINSON CMP, #### [facility] ([id number]) [address] [place] [address] 73980 MCH (RBC) [Entitic mass] 30.3 pg Normal 27-34 [facility] Comment on above: Performed By: #### C CHINA CMP, #### [facility] ([id number]) [address] [place] [address] 69191 MCHC (RBC) [Mass/Vol] 33.6 g/dL Normal 32-36 [facility] Comment on above: Performed By: #### Marco Antonio ATKINSON, CMP, #### [facility] ([id number]) [address] [place] [address] [place] [address] MCV (RBC) [Entitic vol] 90 fL Normal 80-100 [facility] Comment on above: Performed By: #### Marco Antonio ATKINSON CMP, #### [facility] ([id number]) [address] [place] [address] 96105 Monocytes (Bld) [#/Vol] 1.2 10*3/uL High 0-0.9 [facility] Comment on above: Performed By: #### Marco Antonio ATKINSON CMP, #### [facility] ([id number]) [address] [place] [address] 87381 Monocytes/100 WBC (Bld) 7.5 % Normal [facility] Comment on above: Performed By: #### Marco Antonio ATKINSON CMP, #### [facility] ([id number]) [address] [place] [address] 00212 Neutrophils/100 WBC (Bld) 74.0 % Normal [facility] Comment on above: Performed By: #### Marco Antonio ATKINSON CMP, #### [facility] ([id number]) [address] [place] [address] 10699 Platelet mean volume (Bld) [Entitic vol] 9.1 fL Normal 7-12 [facility] Comment on above: Performed By: #### Marco Antonio ATKINSON CMP, #### [facility] ([id number]) [address] [place] [address] 49257 Platelets (Bld) [#/Vol] 385 10*3/uL Normal 150-450 [facility] Comment on above: Performed By: #### Marco Antonio ATKINSON CMP, #### [facility] ([id number]) [address] [place] [address] 08959 RBC COUNT 3.67 X10E12/L Low 3.80-5.20 [facility] Comment on above: Performed By: #### C BCA, CMP, #### [facility] ([id number]) [address] [place] [address] 06300 WBC (Bld) [#/Vol] 15.8 10*3/uL High 4.0-11.0 [facility] Comment on above: Performed By: #### C BCA, CMP, #### [facility] ([id number]) [address] [place] [address] 53090 COMPREHENSIVE METABOLIC PANE Baljit 12-20-2023 Albumin [Mass/Vol] 4.2 g/dL Normal 3.2-5.3 [facility] Comment on above: Performed By: #### C BCA, CMP, #### [facility] ([id number]) [address] [place] [address] 00343 ALP [Catalytic activity/Vol] 39 U/L Normal 39-130 [facility] Comment on above: Performed By: #### C BCA, CMP, #### [facility] ([id number]) [address] [place] [address]39 ALT [Catalytic activity/Vol] 14 U/L Normal 0-31 [facility] Comment on above: Performed By: #### C BCA, CMP, #### [facility] ([id number]) [address] [place] [address] 77225 Anion gap [Moles/Vol] 6 mmol/L Normal 5-15 [facility] Comment on above: Performed By: #### C BCA, CMP, #### [facility] ([id number]) [address] [place] [address] 82320 AST [Catalytic activity/Vol] 20 U/L Normal 0-41 [facility] Comment on above: Performed By: #### C BCA, CMP, #### [facility] ([id number]) [address] [place] [address] 54376 Bilirubin [Mass/Vol] 0.6 mg/dL Normal 0.3-1.2 [facility] Comment on above: Performed By: #### C CEE ATKINSON, #### [facility] ([id number]) [address] [place] [address] 86999 Calcium [Mass/Vol] 8.9 mg/dL Normal 8.5-10.5 [facility] Comment on above: Performed By: #### C CEE ATKINSON, #### [facility] ([id number]) [address] [place] [address] 36200 Chloride [Moles/Vol] 104 mmol/L Normal 98-109 [facility] Comment on above: Performed By: #### C CEE ATKINSON, #### [facility] ([id number]) [address] [place] [address] 70883 CO2 [Moles/Vol] 22 mmol/L Normal 22-32 [facility] Comment on above: Performed By: #### C CEE ATKINSON, #### [facility] ([id number]) [address] [place] [address] 99589 Creatinine [Mass/Vol] 0.56 mg/dL Normal 0.40-1.00 [facility] Comment on above: Result Comment: METH OD TRACEABLE TO IDMS STANDARD Performed By: #### C CEE ATKINSON, #### [facility] ([id number]) [address] [place] [address] 30812 eGFR (CKD-EPI) NON-RACE DEPENDENT >90 Normal >59 [facility] Comment on above: Result Comment: Reported eGFR is based on the CKD-EPI 2020 equation that does not use a race coefficient. Performed By: #### C CHINA CMP, #### [facility] ([id number]) [address] [place] [address] 40622 Glucose [Mass/Vol] 112 mg/dL High 65-99 [facility] Comment on above: Performed By: #### C CEE ATKINSON, #### [facility] ([id number]) [address] [place] [address] 25405 Potassium [Moles/Vol] 3.2 mmol/L Low 3.5-5.0 [facility] Comment on above: Performed By: #### C CEE ATKINSON, #### [facility] ([id number]) [address] [place] [address] 78501 Protein [Mass/Vol] 7.6 g/dL Normal 6.0-8.0 [facility] Comment on above: Performed By: #### C CHINA [facility], #### [facility] ([id number]) [address] [place] [address] 89404 Sodium [Moles/Vol] 132 mmol/L Low 134-146 [facility] Comment on above: Performed By: #### C [place]INA [facility], #### [facility] ([id number]) [address] [place] [address] 88301 Urea nitrogen [Mass/Vol] 9 mg/dL Normal 5-23 [facility] Comment on above: Performed By: #### C [place], [facility], #### [facility] ([id number]) [address] [place] [address] 77767 HCG ( test) Ql (U)o n 12-20-2023 Beta HCG ( test) Ql (U) Positive Abnormal NEG [facility] Comment on above: Performed By: #### 2 106-3 #### [facility] ([id number]) [address] [place] [address] 78290 HCG.beta subunit IA 3rd IS Q non 12-20-2023 [place] [address] m[IU]/mL Normal P [facility] Comment on above: Result Comment: NEW REFERENCE [...] neoplasms. Performed By: #### C BCA, CMP, 31261-5 #### [facility] ([id number]) [address] [place] [address] 96332 URINE CULTUREon 12-20-2023 Bacteria identified Cx Nom (U) CULTURE RESULTS NO GROWTH AT <1000 CFU/mL [facility] Comment on above: Performed By: #### 6 30-4 #### [facility] ([id number]) [address] [place] [address], [address] [place] [address] URN MACROSCOPIC NURon 2023 BILIRUBIN ALEKSANDRA Negative Normal NEG [facility] Comment on above: Performed By: #### N UM #### [facility] ([id number]) [address] [place] [address] 89261 BLOOD/HGB ALEKSANDRA Trace Abnormal NEG [facility] Comment on above: Performed By: #### N UM #### [facility] ([id number]) [address] [place] [address] 96462 GLUCOSE ALEKSANDRA Negative Normal NEG [facility] Comment on above: Performed By: #### N UM #### [facility] ([id number]) [address] [place] [address] 98731 KETONES ALEKSANDRA Negative Normal NEG [facility] Comment on above: Performed By: #### N UM #### [facility] ([id number]) [address] [place] [address] 70932 LEUKOCYTE ESTERASE ALEKSANDRA Trace Abnormal NEG [facility] Comment on above: Performed By: #### N UM #### [facility] ([id number]) [address] [place] [address] 31337 NITRITE ALEKSANDRA Negative Normal NEG [facility] Comment on above: Performed By: #### N UM #### [facility] ([id number]) [address] [place] [address] 86716 PH ALEKSANDRA 6.5 Normal 5.0-8.5 [facility] Comment on above: Performed By: #### N UM #### [facility] ([id number]) [address] [place] [address] 81877 PROTEIN ALEKSANDRA Negative Normal NEG [facility] Comment on above: Performed By: #### N UM #### [facility] ([id number]) [address] [place] [address] 05895 SPECIFIC GRAVITY ALEKSANDRA 1.010 Normal 1.003-1.035 [facility] Comment on above: Performed By: #### N UM #### [facility] ([id number]) [address] [place] [address] 62491 UROBILINOGEN ALEKSANDRA 1.0 eu/dL Normal <1.1 [facility] Comment on above: Performed By: #### N UM #### [facility] ([id number]) [address] [place] [address] 54831 Hgb Electrophoresison 2023 Hgb Elect.Interp. Normal Hb electrophoretic pattern. HbA = 97.2% HbA2 = 2.8% Normal Values Normal [facility] Comment on above: Result Comment: (Hem oglobin A= 96.8 to 97.8% Hemoglobin A2= 2.2 to 3.2%) Performed By: #### F EBC, HGBE, B12FOL #### [address] [address] Cardboard Inserter: Severino Jacobson MD #### RETCT, CDP, FERI #### [facility] [address] [place] [address] Cardboard Inserter: Lukasz Puga MD Pathologist Review: ELECTRONICALLY SIGNED. AUTUMN MENDOZA M.D. [facility] Comment on above: Performed By: #### F EBC, HGBE, B12FOL #### [address] [address] Cardboard Inserter: Severino Jacobson MD #### VALENCIA, CDP, FERI #### [facility] [address] [place] [address] Cardboard Inserter: Lukasz Puga MD Smear to Pathologiston 12-07 Smear to Pathologist ELECTRONICALLY SIGNED. MITA REGAN M.D. [facility] Comment on above: Performed By: #### P ATH #### [address] [address] Cardboard Inserter: Severino Jacobson MD B12/Folate Panelon Cobalamin (Vitamin B12) [Mass/Vol] 717 pg/mL Normal 232-1245 [facility] Comment on above: Performed By: #### F EBC, HGBE, B12FOL #### [facility] [address] [place] [address] Cardboard Inserter: Severino Jacobson MD #### RETCT, CDP, FERI #### [facility] [place] [address] Cardboard Inserter: Lukasz Puga MD Folic Acid 12.2 ng/mL Normal 4.8-24.2 [facility] Comment on above: Performed By: #### F EBC, HGBE, B12FOL #### [address] [address] Cardboard Inserter: Severino Jacobson MD #### RETCT, CDP, FERI #### [facility] [address] [place] [address] Cardboard Inserter: Lukasz Puga MD CBC with Diffon 12-05-2023 Abs. Atypical Lymphs 0.14 k/uL Normal [facility] Comment on above: Performed By: #### F EBC, HGBE, B12FOL #### [address] [address] Cardboard Inserter: Severino Jacobson MD #### RETCT, CDP, FERI #### [facility] [address] [place] [address] Cardboard Inserter: Lukasz Puga MD Abs. Basophil 0.07 k/uL Normal 0.0-0.2 [facility] Comment on above: Performed By: #### F EBC, HGBE, B12FOL #### [address] [address] Cardboard Inserter: Severino Jacobson MD #### RETCT, CDP, FERI #### [facility] [address] [place] [address] Cardboard Inserter: Lukasz Puga MD Abs.Imm.Granulocyte 0.00 k/uL Normal 0.00-0.30 [facility] Comment on above: Performed By: #### F EBC, HGBE, B12FOL #### [address] [address] Cardboard Inserter: Severino Jacobson MD #### VALENCIA, CDP, FERI #### [facility] [address] [place] [address] Cardboard Inserter: Lukasz Puga MD Abs.Neutrophil (Seg) 2.80 k/uL Normal 1.8-7.7 [facility] Comment on above: Performed By: #### F EBC, HGBE, B12FOL #### [address] [address] Cardboard Inserter: Severino Jacobson MD #### VALENCIA, CDP, FERI #### [facility] [address] [place] [address] Cardboard Inserter: Lukasz Puga MD Atypical Lymphs 2 % Normal [facility] Comment on above: Performed By: #### F EBC, HGBE, B12FOL #### [address] [address] Cardboard Inserter: Severino Jacobson MD #### VALENCIA, CDP, FERI #### [facility] [address] [place] [address] Cardboard Inserter: Lukasz Puga MD Basophils/100 WBC (Bld) 1 % Normal [facility] Comment on above: Performed By: #### F EBC, HGBE, B12FOL #### [address] [address] Cardboard Inserter: Severino Jacobson MD #### VALENCIA, CDP, FERI #### [facility] [address] [place] [address] Cardboard Inserter: Lukasz Puga MD Eosinophils (Bld) [#/Vol] 0.07 10*3/uL Normal 0.0-0.4 [facility] Comment on above: Performed By: #### F EBC, HGBE, B12FOL #### [address] [address] Cardboard Inserter: Severino Jacobson MD #### RETCT, CDP, FERI #### [facility] [address] [place] [address] Cardboard Inserter: Lukasz Puga MD Eosinophils/100 WBC (Bld) 1 % Normal 1-4 [facility] Comment on above: Performed By: #### F EBC, HGBE, B12FOL #### [address] [address] Cardboard Inserter: Severino Jacobson MD #### RETCT, CDP, FERI #### [facility] [address] [place] [address] Cardboard Inserter: Lukasz Puga MD Immature granulocytes/100 WBC (Bld) 0 % Normal 0 [facility] Comment on above: Performed By: #### F EBC, HGBE, B12FOL #### [address] [address] Cardboard Inserter: Severino Jacobson MD #### FINNCT, CDP, FERI #### [facility] [address] [place] [address] Cardboard Inserter: Lukasz Puga MD Lymphocytes (Bld) [#/Vol] 3.29 10*3/uL Normal 1.0-4.8 [facility] Comment on above: Performed By: #### F EBC, HGBE, B12FOL #### [address] [address] Cardboard Inserter: Severino Jacobson MD #### RETCT, CDP, FERI #### [facility] [address] [place] [address] Cardboard Inserter: Lukasz Puga MD Lymphocytes/100 WBC (Bld) 47 % High 24-44 [facility] Comment on above: Performed By: #### F EBC, HGBE, B12FOL #### [address] [address] Cardboard Inserter: Severino Jacobson MD #### RETCT, CDP, FERI #### [facility] [address] [place] [address] Cardboard Inserter: Lukasz Puga MD Monocytes (Bld) [#/Vol] 0.63 10*3/uL Normal 0.2-0.8 [facility] Comment on above: Performed By: #### F EBC, HGBE, B12FOL #### [address] [address] Cardboard Inserter: Severino Jacobson MD #### RETCT, CDP, FERI #### [facility] [address] [place] [address] Cardboard Inserter: Lukasz Puga MD Monocytes/100 WBC (Bld) 9 % High 1-7 [facility] Comment on above: Performed By: #### F EBC, HGBE, B12FOL #### [address] [address] Cardboard Inserter: Severino Jacobson MD #### RETCT, CDP, FERI #### [facility] [address] [place] [address] Cardboard Inserter: Lukasz Puga MD Neutrophil (Seg) 40 % Normal 36-66 [facility] Comment on above: Performed By: #### F EBC, HGBE, B12FOL #### [address] [address] Cardboard Inserter: Severino Jacobson MD #### RETCT, CDP, FERI #### [facility] [address] [place] [address] Cardboard Inserter: Lukasz Puga MD Erythrocyte distribution width (RBC) [Ratio] 12.6 % Normal 11.8-14.4 [facility] Comment on above: Performed By: #### F EBC, HGBE, B12FOL #### [address] [address] Cardboard Inserter: Severino Jacobson MD #### RETCT, CDP, FERI #### [facility] [address] [place] [address] Cardboard Inserter: Lukasz Puga MD Hematocrit (Bld) [Volume fraction] 31.0 % Low 36.3-47.1 [facility] Comment on above: Performed By: #### F EBC, HGBE, B12FOL #### [address] [address] Cardboard Inserter: Severino Jacobson MD #### RETCT, CDP, FERI #### [facility] [address] [place] [address] Cardboard Inserter: Lukasz Puga MD Hemoglobin (Bld) [Mass/Vol] 9.9 g/dL Low 11.9-15.1 [facility] Comment on above: Performed By: #### F EBC, HGBE, B12FOL #### [address] [address] Cardboard Inserter: Severino Jacobson MD #### RETCT, CDP, FERI #### [facility] [address] [place] [address] Cardboard Inserter: Lukasz Puga MD MCH (RBC) [Entitic mass] 29.8 pg Normal 25.2-33.5 [facility] Comment on above: Performed By: #### F EBC, HGBE, B12FOL #### [address] [address] Cardboard Inserter: Severino Jacobson MD #### RETCT, CDP, FERI #### [facility] [address] [place] [address] Cardboard Inserter: Lukasz Puga MD MCHC (RBC) [Mass/Vol] 31.9 g/dL Normal 28.4-34.8 [facility] Comment on above: Performed By: #### F EBC, HGBE, B12FOL #### [address] [address] Cardboard Inserter: Severino Jacobson MD #### RETCT, CDP, FERI #### [facility] [address] [place] [address] Cardboard Inserter: Lukasz Puga MD MCV (RBC) [Entitic vol] 93.4 fL Normal 82.6-102.9 [facility] Comment on above: Performed By: #### F EBC, HGBE, B12FOL #### [address] [address] Cardboard Inserter: Severino Jacobson MD #### RETCT, CDP, FERI #### [facility] [address] [place] [address] Cardboard Inserter: Lukasz Puga MD NRBC Automated 0.0 per 100 WBC Normal 0.0 [facility] Comment on above: Performed By: #### F EBC, HGBE, B12FOL #### [address] [address] Cardboard Inserter: Severino Jacobson MD #### RETCT, CDP, FERI #### [facility] [address] [place] [address] Cardboard Inserter: Lukasz Puga MD Platelet mean volume (Bld) [Entitic vol] 9.9 fL Normal 8.1-13.5 [facility] Comment on above: Performed By: #### F EBC, HGBE, B12FOL #### [address] [address] Cardboard Inserter: Severino Jcaobson MD #### RETCT, CDP, FERI #### [facility] [place] [address] Cardboard Inserter: Lukasz Puga MD Platelets (Bld) [#/Vol] 296 10*3/uL Normal 138-453 [facility] Comment on above: Performed By: #### F EBC, HGBE, B12FOL #### [address] [address] Cardboard Inserter: Severino Jacobson MD #### RETCT, CDP, FERI #### [facility] [address] [place] [address] Cardboard Inserter: Lukasz Puga MD RBC (Bld) [#/Vol] 3.32 10*6/uL Low 3.95-5.11 [facility] Comment on above: Performed By: #### F EBC, HGBE, B12FOL #### [address] [address] Cardboard Inserter: Severino Jacobson MD #### RETCT, CDP, FERI #### [facility] [address] [place] [address] Cardboard Inserter: Lukasz Puga MD WBC (Bld) [#/Vol] 7.0 10*3/uL Normal 3.5-11.3 [facility] Comment on above: Performed By: #### F EBC, HGBE, B12FOL #### [address] [address] Cardboard Inserter: Severino Jacobson MD #### RETCT, CDP, FERI #### [facility] [address] [place] [address] Cardboard Inserter: Lukasz Puga MD Ferritinon 12-05-2023 Ferritin [Mass/Vol] 39 ng/mL Normal 13-150 [facility] Comment on above: Performed By: #### F EBC, HGBE, B12FOL #### [address] [address] Cardboard Inserter: Severino Jacobson MD #### RETCT, CDP, FERI #### [facility] [address] [place] [address] Cardboard Inserter: Lukasz Puga MD Iron Binding Cap.on 12-05-19 24 % Fe Saturation 14 % Low 20-55 [facility] Comment on above: Performed By: #### F EBC, HGBE, B12FOL #### [address] [address] Cardboard Inserter: Severino Jacobson MD #### RETCT, CDP, FERI #### [facility] [address] [place] [address] Cardboard Inserter: Lukasz Puga MD Iron [Mass/Vol] 42 ug/dL Normal 37-145 [facility] Comment on above: Performed By: #### F EBC, HGBE, B12FOL #### [address] [address] Cardboard Inserter: Severino Jacobson MD #### RETCT, CDP, FERI #### [facility] [address] [place] [address] Cardboard Inserter: Lukasz Puga MD Total Fe Binding Cap 310 ug/dL Normal 250-450 [facility] Comment on above: Performed By: #### F EBC, HGBE, B12FOL #### [address] [address] Cardboard Inserter: Severino Jacobson MD #### RETCT, CDP, FERI #### [facility] [address] [place] [address] Cardboard Inserter: Lukasz Puga MD Unbound Fe Bind Cap 268 ug/dL Normal 112-347 [facility] Comment on above: Performed By: #### F EBC, HGBE, B12FOL #### [address] [address] Cardboard Inserter: Severino Jacobson MD #### RETCT, CDP, FERI #### [facility] [address] [place] [address] Cardboard Inserter: Lukasz Puga MD Retic Counton 12-05-2023 Absolute Retic 0.062 M/uL Normal 0.030-0.080 [facility] Comment on above: Performed By: #### F EBC, HGBE, B12FOL #### [address] [address] Cardboard Inserter: Severino Jacobson MD #### RETCT, CDP, FERI #### [facility] [address] [place] [address] Cardboard Inserter: Lukasz Puga MD IRF 9.6 % Normal 2.7-18.3 [facility] Comment on above: Performed By: #### F EBC, HGBE, B12FOL #### [address] [address] Cardboard Inserter: Severino Jacobson MD #### RETCT, CDP, FERI #### [facility] [address] [place], [place] [phone] Cardboard Inserter: Lukasz Puga MD Retic Count 1.8 % Normal 0.5-1.9 [facility] Comment on above: Performed By: #### F EBC, HGBE, B12FOL #### [address] [phone] Cardboard Inserter: Severino Jacobson MD #### RETCT, CDP, FERI #### [facility] [address] [place] [address] [phone] Cardboard Inserter: Lukasz Puga MD Retic Hemoglobin 28.8 pg Normal 28.2-35.7 [facility] Comment on above: Performed By: #### F EBC, HGBE, B12FOL #### [address] [phone] Cardboard Inserter: Severino Jacobson MD #### RETCT, CDP, FERI #### [facility] [address] [place] [address] [phone] Cardboard Inserter: Lukasz Puga MD Surgical Pathology Reporton 12-05-2023 Surgical Pathology Report (NOTE) [id number] [facility] ANATOMIC PATHOLOGY [address] [place] [id number] SURGICAL PATHOLOGY CONSULTATION Patient Name: HOMERO DE LEON MR#: [id number] Specimen #[id number] Procedures/Addenda PERIPHERAL BLOOD REPORT Date Ordered: 12/07/2023 Status: Signed Out Date Complete: 12/08/2023 By: Mita Regan M.D. Date Reported: 12/08/2023 INTERPRETATION Peripheral blood: - Normocytic normochromic anemia with unremarkable red blood cell morphology. - White blood cells with normal morphology. No blasts. - Platelets with unremarkable morphology. RESULTS-COMMENTS PERIPHERAL BLOOD STUDY CBC: Please see the electronic health record for CBC parameters ([id number], 12/05/2023, 13:35). PLATELETS: Platelets show normal morphology. LEUKOCYTES: White blood cells show normal morphology. No atypical lymphocytes. No dysplasia. There are no blasts. ERYTHROCYTES: Normocytic normochromic anemia. Red blood cells show normal morphology. Note: The electronic health record is reviewed. Mita Regan M.D. Source: A: Peripheral Blood Normal [facility] CBC with Diffon 11-06-2023 Abs. Basophil 0.04 k/uL Normal 0.00-0.20 [facility] Comment on above: Performed By: #### C DP CP, LIPRF #### [place] [address] Cardboard Inserter: Severino Jacobson MD Abs.Imm.Granulocyte <0.03 Normal 0.00-0.30 [facility] Comment on above: Performed By: #### C DP CP, LIPRF #### [place] [address] Cardboard Inserter: Severino Jacobson MD Abs.Neutrophil (Seg) 4.76 k/uL Normal 1.50-8.10 [facility] Comment on above: Performed By: #### C DP CP, LIPRF #### [place] [address] Cardboard Inserter: Severino Jacobson MD Basophils/100 WBC (Bld) 1 % Normal 0-2 [facility] Comment on above: Performed By: #### C DP, CP, LIPRF #### [place] [address] Cardboard Inserter: Severino Jacobson MD Eosinophils (Bld) [#/Vol] 0.24 10*3/uL Normal 0.00-0.44 [facility] Comment on above: Performed By: #### C DP, CP, LIPRF #### [place] [address] Cardboard Inserter: Severino Jacobson MD Eosinophils/100 WBC (Bld) 3 % Normal 1-4 [facility] Comment on above: Performed By: #### C DP, CP, LIPRF #### [address] [address] Cardboard Inserter: Severino Jacobson MD Erythrocyte distribution width (RBC) [Ratio] 12.3 % Normal 11.8-14.4 [facility] Comment on above: Performed By: #### C DP, CP, LIPRF #### [address] [address] Cardboard Inserter: Severino Jacobson MD Hematocrit (Bld) [Volume fraction] 35.5 % Low 36.3-47.1 [facility] Comment on above: Performed By: #### C DP, CP, LIPRF #### [address] [address] Cardboard Inserter: Severino Jacobson MD Hemoglobin (Bld) [Mass/Vol] 11.2 g/dL Low 11.9-15.1 [facility] Comment on above: Performed By: #### C DP, CP, LIPRF #### [address] [address] Cardboard Inserter: Severino Jacobson MD Immature granulocytes/100 WBC (Bld) 0 % Normal 0 [facility] Comment on above: Performed By: #### C DP, CP, LIPRF #### [address] [address] Cardboard Inserter: Severino Jacobson MD Lymphocytes (Bld) [#/Vol] 2.47 10*3/uL Normal 1.10-3.70 [facility] Comment on above: Performed By: #### C DP, CP, LIPRF #### [address] [address] Cardboard Inserter: Severino Jacobson MD Lymphocytes/100 WBC (Bld) 31 % Normal 24-43 [facility] Comment on above: Performed By: #### C DP, CP, LIPRF #### [address] [address] Cardboard Inserter: Severino Jacobson MD MCH (RBC) [Entitic mass] 29.6 pg Normal 25.2-33.5 [facility] Comment on above: Performed By: #### C DP, CP, LIPRF #### [address] [address] Cardboard Inserter: Severino Jacobson MD MCHC (RBC) [Mass/Vol] 31.5 g/dL Normal 28.4-34.8 [facility] [facility] Comment on above: Performed By: #### C DP, CP, LIPRF #### [address] [address] Cardboard Inserter: Severino Jacobson MD MCV (RBC) [Entitic vol] 93.9 fL Normal 82.6-102.9 [facility] Comment on above: Performed By: #### C DP, CP, LIPRF #### [address] [address] Cardboard Inserter: Severino Jacobson MD Monocytes (Bld) [#/Vol] 0.56 10*3/uL Normal 0.10-1.20 [facility] Comment on above: Performed By: #### C DP, CP, LIPRF #### [address] [address] Cardboard Inserter: Severino Jacobson MD Monocytes/100 WBC (Bld) 7 % Normal 3-12 [facility] Comment on above: Performed By: #### C DP, CP, LIPRF #### [address] [address] Cardboard Inserter: Severino Jacobson MD Neutrophil (Seg) 58 % Normal 36-65 [facility] Comment on above: Performed By: #### C DP CP, LIPRF #### [address] [address] Cardboard Inserter: Severino Jacobson MD NRBC Automated 0.0 per 100 WBC Normal 0.0 [facility] Comment on above: Performed By: #### C DP, CP, LIPRF #### [address] [address] Cardboard Inserter: Severino Jacobson MD Platelet mean volume (Bld) [Entitic vol] 10.5 fL Normal 8.1-13.5 [facility] Comment on above: Performed By: #### C DP CP, LIPRF #### [address] [address] Cardboard Inserter: Severino Jacobson MD Platelets (Bld) [#/Vol] 501 10*3/uL High 138-453 [facility] Comment on above: Performed By: #### C DP CP, LIPRF #### [address] [address] Cardboard Inserter: Severino Jacobson MD RBC (Bld) [#/Vol] 3.78 10*6/uL Low 3.95-5.11 [facility] Comment on above: Performed By: #### C DP, CP, LIPRF #### [address] [address] Cardboard Inserter: Severino Jacobson MD WBC (Bld) [#/Vol] 8.1 10*3/uL Normal 3.5-11.3 [facility] Comment on above: Performed By: #### C DP, CP, LIPRF #### [address] [address] Cardboard Inserter: Severino Jacobson MD Comp Metabolic Profon 2023 Albumin [Mass/Vol] 4.8 g/dL Normal 3.5-5.2 [facility] Comment on above: Performed By: #### C DP, CP, LIPRF #### [address] [address] Cardboard Inserter: Severion Jacobson MD Albumin/Glob Ratio 2.0 Normal 1.0-2.5 [facility] Comment on above: Performed By: #### C DP, CP, LIPRF #### [address] [address] Cardboard Inserter: Severino Jacobson MD Alkaline Phos 43 U/L Normal 35-104 [facility] Comment on above: Performed By: #### C DP, CP, LIPRF #### [address] [address] Cardboard Inserter: Severino Jacobson MD ALT [Catalytic activity/Vol] 14 U/L Normal 10-35 [facility] Comment on above: Performed By: #### C DP, CP, LIPRF #### [address] [address] Cardboard Inserter: Severino Jacobson MD Anion gap [Moles/Vol] 10 mmol/L Normal 9-16 [facility] Comment on above: Performed By: #### C DP, CP, LIPRF #### [address] [address] Cardboard Inserter: Severino Jacobson MD AST [Catalytic activity/Vol] 27 U/L Normal 10-35 [facility] Comment on above: Performed By: #### C DP, CP, LIPRF #### [address] [address] Cardboard Inserter: Severino Jacobson MD Bilirubin [Mass/Vol] 0.6 mg/dL Normal 0.00-1.20 [facility] Comment on above: Performed By: #### C DP CP, LIPRF #### [address] [address] Cardboard Inserter: Severino Jacobson MD Calcium [Mass/Vol] 9.5 mg/dL Normal 8.6-10.4 [facility] Comment on above: Performed By: #### C DP, CP, LIPRF #### [address] [address] Cardboard Inserter: Severino Jacobson MD Chloride [Moles/Vol] 103 mmol/L Normal 98-107 [facility] Comment on above: Performed By: #### C DP, CP, LIPRF #### [address] [address] Cardboard Inserter: Severino Jacobson MD CO2 [Moles/Vol] 26 mmol/L Normal 20-31 [facility] Comment on above: Performed By: #### C DP, CP, LIPRF #### [address] [address] Cardboard Inserter: Severino Jacobson MD Creatinine [Mass/Vol] 0.8 mg/dL Normal 0.50-0.90 [facility] Comment on above: Performed By: #### C DP, CP, LIPRF #### [address] [address] Cardboard Inserter: Severino Jacobson MD GFR/1.73 sq M.predicted among non-blacks MDRD (S/P/Bld) [Vol rate/Area] mL/min/{1.73_m2} Normal >60 [facility] Comment on above: Result Comment: These [...] By: #### C DP, CP, LIPRF #### [facility] [address] [place] [address] Cardboard Inserter: Severino Jacobson MD Glucose [Mass/Vol] 90 mg/dL Normal 74-99 [facility] Comment on above: Performed By: #### C DP, CP, LIPRF #### [facility] [address] [place] [address] Cardboard Inserter: Severino Jacobson MD Potassium [Moles/Vol] 3.9 mmol/L Normal 3.7-5.3 [facility] Comment on above: Performed By: #### C DP, CP, LIPRF #### [address] [address] Cardboard Inserter: Severino Jacobson MD Protein [Mass/Vol] 7.7 g/dL Normal 6.6-8.7 [facility] Comment on above: Performed By: #### C DP, CP, LIPRF #### [address] [address] Cardboard Inserter: Severino Jacobson MD Sodium [Moles/Vol] 139 mmol/L Normal 136-145 [facility] Comment on above: Performed By: #### C DP, CP, LIPRF #### [address] [address] Cardboard Inserter: Severino Jacobson MD Urea nitrogen [Mass/Vol] 12 mg/dL Normal 6-20 [facility] Comment on above: Performed By: #### C DP, CP, LIPRF #### [facility] [address] [place] [address] Cardboard Inserter: Severino Jacobson MD Lipid Prof, Fastingon 2023 Cholesterol [Mass/Vol] 178 mg/dL Normal 0-199 [facility] Comment on above: Result Comment: Cholesterol Guidelines: <200 Desirable 200-240 Borderline >240 Undesirable Performed By: #### C DP, CP, LIPRF #### [facility] [address] [place] [address] Cardboard Inserter: Severino Jacobson MD Cholesterol in HDL [Mass/Vol] 50 mg/dL Normal >40 [facility] Comment on above: Result Comment: HDL Guidelines: <40 Undesirable 40-59 Borderline >59 Desirable Performed By: #### C DP, CP, LIPRF #### [facility] [address] [place] [address] Cardboard Inserter: Severino Jacobson MD Cholesterol in LDL [Mass/Vol] 115 mg/dL High 0-100 [facility] Comment on above: Result Comment: LDL Guidelines: <100 Desirable 100-129 Near to/above Desirable 130-159 Borderline >159 Undesirable Direct (measured) LDL and calculated LDL are not interchangeable tests. Performed By: #### C DP, CP, LIPRF #### [facility] [address] [place] [address] Cardboard Inserter: Severino Jacobson MD Cholesterol in VLDL [Mass/Vol] 13 mg/dL Normal [facility] Comment on above: Performed By: #### C DP, CP, LIPRF #### [facility] [address] [place] [address] Cardboard Inserter: Severino Jacobson MD Cholesterol.total/Chol esterol in HDL [Mass ratio] 4.0 {ratio} Normal [facility] Comment on above: Performed By: #### C DP, CP, LIPRF #### [facility] [address] [place] [address] Cardboard Inserter: Severino Jacobson MD Triglyceride,Fasting 64 mg/dL Normal 0-149 [facility] Comment on above: Result Comment: Triglyceride Guidelines: <150 Desirable 150-199 Borderline 200-499 High >499 Very high Based on AHA Guidelines for fasting triglyceride, February 2012. Performed By: #### C DP, CP, LIPRF #### [address] [address] Cardboard Inserter: Severino Jacobson MD CBC with Diffon 09-02-2023 Abs. Basophil <0.03 Normal 0.00-0.20 [facility] Comment on above: Performed By: #### C DP LIPRF, CP #### [address] [address] Cardboard Inserter: Severino Jacobson MD Abs.Imm.Granulocyte <0.03 Normal 0.00-0.30 [facility] Comment on above: Performed By: #### C FANNIE MIJARES, CP #### [place] [address] Cardboard Inserter: Severino Jacobson MD Abs.Neutrophil (Seg) 3.88 k/uL Normal 1.50-8.10 [facility] Comment on above: Performed By: #### C DP LIPRF, CP #### [place] [address] Cardboard Inserter: Severino Jacobson MD Basophils/100 WBC (Bld) 0 % Normal 0-2 [facility] Comment on above: Performed By: #### C DP LIPRF, CP #### [place] [address] Cardboard Inserter: Severino Jacobson MD Eosinophils (Bld) [#/Vol] 0.18 10*3/uL Normal 0.00-0.44 [facility] Comment on above: Performed By: #### C DP LIPRF, CP #### [place] [address] Cardboard Inserter: Severino Jacobson MD Eosinophils/100 WBC (Bld) 3 % Normal 1-4 [facility] Comment on above: Performed By: #### C DP, LIPRF, CP #### [facility] [address] [place] [address] Cardboard Inserter: Severino Jacobson MD Erythrocyte distribution width (RBC) [Ratio] 12.6 % Normal 11.8-14.4 [facility] Comment on above: Performed By: #### C DP, LIPRF, CP #### [address] [address] Cardboard Inserter: Severino Jacobson MD Hematocrit (Bld) [Volume fraction] 34.6 % Low 36.3-47.1 [facility] Comment on above: Performed By: #### C DP, LIPRF, CP #### [address] [address] Cardboard Inserter: Severino Jacobson MD Hemoglobin (Bld) [Mass/Vol] 10.8 g/dL Low 11.9-15.1 [facility] Comment on above: Performed By: #### C DP, LIPRF, CP #### [address] [address] Cardboard Inserter: Severino Jacobson MD Immature granulocytes/100 WBC (Bld) 0 % Normal 0 [facility] Comment on above: Performed By: #### C DP, LIPRF, CP #### [address] [address] Cardboard Inserter: Severino Jacobson MD Lymphocytes (Bld) [#/Vol] 2.64 10*3/uL Normal 1.10-3.70 [facility] Comment on above: Performed By: #### C DP, LIPRF, CP #### [address] [address] Cardboard Inserter: Severino Jacobson MD Lymphocytes/100 WBC (Bld) 37 % Normal 24-43 [facility] Comment on above: Performed By: #### C DP, LIPRF, CP #### [address] [address] Cardboard Inserter: Severino Jacobson MD MCH (RBC) [Entitic mass] 29.7 pg Normal 25.2-33.5 [facility] Comment on above: Performed By: #### C FANNIE MIJARES, CP #### [address] [address] Cardboard Inserter: Severino Jacobson MD MCHC (RBC) [Mass/Vol] 31.2 g/dL Normal 28.4-34.8 [facility] Comment on above: Performed By: #### C FANNIE MIJARES, CP #### [address] [address] Cardboard Inserter: Severino Jacobson MD MCV (RBC) [Entitic vol] 95.1 fL Normal 82.6-102.9 [facility] Comment on above: Performed By: #### C FANNIE MIJARES, CP #### [address] [address] Cardboard Inserter: Severino Jacobson MD Monocytes (Bld) [#/Vol] 0.41 10*3/uL Normal 0.10-1.20 [facility] Comment on above: Performed By: #### C FANNIE MIJARES, CP #### [address] [address] Cardboard Inserter: Severino Jacobson MD Monocytes/100 WBC (Bld) 6 % Normal 3-12 [facility] Comment on above: Performed By: #### C FANNIE MIJARES, CP #### [address] [address] Cardboard Inserter: Severino Jacobson MD Neutrophil (Seg) 54 % Normal 36-65 [facility] Comment on above: Performed By: #### C FANNIE MIJARES, CP #### [address] [address] Cardboard Inserter: Severino Jacobson MD NRBC Automated 0.0 per 100 WBC Normal 0.0 [facility] Comment on above: Performed By: #### C FANNIE MIJARES, CP #### [facility] [address] [place] [address] Cardboard Inserter: Severino Jacobson MD Platelet mean volume (Bld) [Entitic vol] 10.7 fL Normal 8.1-13.5 [facility] Comment on above: Performed By: #### C DP LIPRF, CP #### [facility] [address] [place] [address] Cardboard Inserter: Severino Jacobson MD Platelets (Bld) [#/Vol] 460 10*3/uL High 138-453 [facility] Comment on above: Performed By: #### C DYLLAN LIPRF, CP #### [address] [address] Cardboard Inserter: Severino Jacobson MD RBC (Bld) [#/Vol] 3.64 10*6/uL Low 3.95-5.11 [facility] Comment on above: Performed By: #### C FANNIE MIJARES, CP #### [address] [address] Cardboard Inserter: Severino Jacobson MD WBC (Bld) [#/Vol] 7.2 10*3/uL Normal 3.5-11.3 [facility] Comment on above: Performed By: #### C DP LIPRF, CP #### [facility] [address] [place] [address] Cardboard Inserter: Severino Jacobson MD Comp Metabolic Profon 2023 Albumin [Mass/Vol] 4.4 g/dL Normal 3.5-5.2 [facility] Comment on above: Performed By: #### C DP LIPRF, CP #### [address] [address] Cardboard Inserter: Severino Jacobson MD Albumin/Glob Ratio 2.0 Normal 1.0-2.5 [facility] Comment on above: Performed By: #### C FANNIE MIJARES, CP #### [address] [address] Cardboard Inserter: Severino Jacobson MD Alkaline Phos 35 U/L Normal 35-104 [facility] Comment on above: Performed By: #### C FANNIE MIJARES, CP #### [address] [address] Cardboard Inserter: Severino Jacobson MD ALT [Catalytic activity/Vol] 12 U/L Normal 10-35 [facility] Comment on above: Performed By: #### C FANNIE MIJARES, CP #### [address] [address] Cardboard Inserter: Severino Jacobson MD Anion gap [Moles/Vol] 9 mmol/L Normal 9-16 [facility] Comment on above: Performed By: #### C FANNIE MIJARES, CP #### [address] [address] Cardboard Inserter: Severino Jacobson MD AST [Catalytic activity/Vol] 25 U/L Normal 10-35 [facility] Comment on above: Performed By: #### C FANNIE MIJARES, CP #### [address] [address] Cardboard Inserter: Severino Jacobson MD Bilirubin [Mass/Vol] 0.6 mg/dL Normal 0.00-1.20 [facility] Comment on above: Performed By: #### C FANNIE MIJARES, CP #### [address] [address] Cardboard Inserter: Severino Jacobson MD Calcium [Mass/Vol] 8.9 mg/dL Normal 8.6-10.4 [facility] Comment on above: Performed By: #### C FANNIE MIJARES, CP #### [facility] [address] [place] [address] Cardboard Inserter: Severino Jacobson MD Chloride [Moles/Vol] 107 mmol/L Normal 98-107 [facility] Comment on above: Performed By: #### C FNANIE MIJARES, CP #### [facility] [address] [place] [address] Cardboard Inserter: Severino Jacobson MD CO2 [Moles/Vol] 24 mmol/L Normal 20-31 [facility] Comment on above: Performed By: #### C FANNIE MIJARES, CP #### [facility] [address] [place] [address] Cardboard Inserter: Severino Jacobson MD Creatinine [Mass/Vol] 0.7 mg/dL Normal 0.50-0.90 [facility] Comment on above: Performed By: #### C FANNIE MIJARES, CP #### [address] [address] Cardboard Inserter: Severino Jacobson MD GFR/1.73 sq M.predicted among non-blacks MDRD (S/P/Bld) [Vol rate/Area] mL/min/{1.73_m2} Normal >60 [facility] Comment on above: Result Comment: These [...] By: #### C FANNIE MIJARES, CP #### [address] [address] Cardboard Inserter: Severino Jacobson MD Glucose [Mass/Vol] 97 mg/dL Normal 74-99 [facility] Comment on above: Performed By: #### C DP, LIPRF, CP #### [address] [address] Cardboard Inserter: Severino Jacobson MD Potassium [Moles/Vol] 4.0 mmol/L Normal 3.7-5.3 [facility] Comment on above: Performed By: #### C DP, LIPRF, CP #### [facility] [address] [place] [address] Cardboard Inserter: Severino Jacobson MD Protein [Mass/Vol] 7.3 g/dL Normal 6.6-8.7 [facility] Comment on above: Performed By: #### C DP, LIPRF, CP #### [address] [address] Cardboard Inserter: Severino Jacobson MD Sodium [Moles/Vol] 140 mmol/L Normal 136-145 [facility] Comment on above: Performed By: #### C DP, LIPRF, CP #### [address] [address] Cardboard Inserter: Severino Jacobson MD Urea nitrogen [Mass/Vol] 12 mg/dL Normal 6-20 [facility] Comment on above: Performed By: #### C DP, LIPRF, CP #### [address] [address] Cardboard Inserter: Severino Jacobson MD Lipid Prof, Fastingon 2023 Cholesterol [Mass/Vol] 164 mg/dL Normal 0-199 [facility] Comment on above: Result Comment: Cholesterol Guidelines: <200 Desirable 200-240 Borderline >240 Undesirable Performed By: #### C DP, LIPRF, CP #### [address] [address] Cardboard Inserter: Severino Jacobson MD Cholesterol in HDL [Mass/Vol] 52 mg/dL Normal >40 [facility] Comment on above: Result Comment: HDL Guidelines: <40 Undesirable 40-59 Borderline >59 Desirable Performed By: #### C DYLLAN LIPRF, CP #### [address] [address] Cardboard Inserter: Severino Jacobsno MD Cholesterol in LDL [Mass/Vol] 102 mg/dL High 0-100 [facility] Comment on above: Result Comment: LDL Guidelines: <100 Desirable 100-129 Near to/above Desirable 130-159 Borderline >159 Undesirable Direct (measured) LDL and calculated LDL are not interchangeable tests. Performed By: #### C DYLLAN LIPRF, CP #### [place] [address] Cardboard Inserter: Severino Jacobson MD Cholesterol in VLDL [Mass/Vol] 10 mg/dL Normal [facility] Comment on above: Performed By: #### C EKTA IMJARESRF, CP #### [place] [address] Cardboard Inserter: Severino Jacobson MD Cholesterol.total/Chol esterol in HDL [Mass ratio] 3.0 {ratio} Normal [facility] Comment on above: Performed By: #### C FANNIE MIJARES, CP #### [address] [address] Cardboard Inserter: Severino Jacobson MD Triglyceride,Fasting 49 mg/dL Normal 0-149 [facility] Comment on above: Result Comment: Triglyceride Guidelines: <150 Desirable 150-199 Borderline 200-499 High >499 Very high Based on AHA Guidelines for fasting triglyceride, February 2012. Performed By: #### C DYLLAN LIPKOURTNEY, CP #### [address] [address] Cardboard Inserter: Severino Jacobson MD SARS/FLU A+B/RSV by NAAT/[facility] 07-17-2023 SARS/FLU A+B/RSV by NAAT/Molecular FLU A [...] operators who are performing tests using either Sonda41 DX or Easyaula systems and is limited to laboratories that [...] repeat. Fact Sheet for Healthcare Providers: https://www.fda.gov/ media/950987/downloa d Fact Sheet for Patients: https://www.fda.gov/ media/761545/downloa d [facility] Comment on above: Performed By: #### C OVFLR #### [facility] ([id number]) [address] [place] [address], [place] [address] QuantiFERON TBon 04-14-2023 Quanti Americo minus NIL >10.00 Normal [facility] Comment on above: Performed By: #### A QF #### [facility] [address] [place] [address] Cardboard Inserter: Tai Lopez MD Quanti TB Gold Plus Negative Normal Negative [facility] Comment on above: Result Comment: (NOT [...] Mycobacterium tuberculosis Infection --- [place], 2010 (http://www.cdc.gov/mmwr/preview/mmwrhtml/gh0977o4.htm), for more information concerning test performance in low-prevalence populations and use in occupational screening. Performed By: #### A QF #### [facility] [address] [place] [address] Cardboard Inserter: Tai Lopez MD Quanti TB1 minus NIL 0.10 IU/mL Normal 0.00-0.34 [facility] Comment on above: Performed By: #### A QF #### [facility] [address] [place] [address] Cardboard Inserter: Tai Lopez MD Quanti TB2 minus NIL 0.10 IU/mL Normal 0.00-0.34 [facility] Comment on above: Performed By: #### A QF #### [facility] [address] [place] [address] Cardboard Inserter: Tai Lopez MD QuantiFERON NIL 0.03 IU/mL Normal [facility] Comment on above: Result Comment: (NOT E) Performed By: [facility] [address] [place] [address] Cartridge Filler: Royal Banda MD, PhD CLIA Number: [id number] Performed By: #### A QF #### [facility] [address] [place] [address] Cardboard Inserter: Tai Lopez MD CBC with Diffon 04-11-2023 Abs. Basophil 0.05 k/uL Normal 0.00-0.20 [facility] Comment on above: Performed By: #### L IPRF, CDP, PHEP, CP, HIVCMB #### [place] [address] Cardboard Inserter: Severino Jacobson MD Abs.Imm.Granulocyte 0.03 k/uL Normal 0.00-0.30 [facility] Comment on above: Performed By: #### L IPRF, CDP, PHEP, CP, HIVCMB #### [place] [address] Cardboard Inserter: Severino Jacobson MD Abs.Neutrophil (Seg) 4.20 k/uL Normal 1.50-8.10 [facility] Comment on above: Performed By: #### L IPRF, CDP, PHEP, CP, HIVCMB #### [place] [address] Cardboard Inserter: Severino Jacobson MD Basophils/100 WBC (Bld) 1 % Normal 0-2 [facility] Comment on above: Performed By: #### L IPRF, CDP, PHEP, CP, HIVCMB #### [address] [place] [address] Cardboard Inserter: Severino Jacobson MD Eosinophils (Bld) [#/Vol] 0.36 10*3/uL Normal 0.00-0.44 [facility] Comment on above: Performed By: #### L IPRF, CDP, PHEP, CP, HIVCMB #### [address] [address] Cardboard Inserter: Severino Jacobson MD Eosinophils/100 WBC (Bld) 5 % High 1-4 [facility] Comment on above: Performed By: #### L IPRF, CDP, PHEP, CP, HIVCMB #### [address] [address] Cardboard Inserter: Severino Jacobson MD Erythrocyte distribution width (RBC) [Ratio] 11.6 % Low 11.8-14.4 [facility] Comment on above: Performed By: #### L IPRF, CDP, PHEP, CP, HIVCMB #### [address] [address] Cardboard Inserter: Severino Jacobson MD Hematocrit (Bld) [Volume fraction] 34.3 % Low 36.3-47.1 [facility] Comment on above: Performed By: #### L IPRF, CDP, PHEP, CP, HIVCMB #### [address] [address] Cardboard Inserter: Severino Jacobson MD Hemoglobin (Bld) [Mass/Vol] 10.9 g/dL Low 11.9-15.1 [facility] Comment on above: Performed By: #### L IPRF, CDP, PHEP, CP, HIVCMB #### [address] [address] Cardboard Inserter: Severino Jacobson MD Immature granulocytes/100 WBC (Bld) 0 % Normal 0 [facility] Comment on above: Performed By: #### L IPRF, CDP, PHEP, CP, HIVCMB #### [address] [address] Cardboard Inserter: Severino Jacobson MD Lymphocytes (Bld) [#/Vol] 2.55 10*3/uL Normal 1.10-3.70 [facility] Comment on above: Performed By: #### L IPRF, CDP, PHEP, CP, HIVCMB #### [address] [address] Cardboard Inserter: Severino Jacobson MD Lymphocytes/100 WBC (Bld) 33 % Normal 24-43 [facility] Comment on above: Performed By: #### L IPRF, CDP, PHEP, CP, HIVCMB #### [place] [address] Cardboard Inserter: Severino Jacobson MD MCH (RBC) [Entitic mass] 30.1 pg Normal 25.2-33.5 [facility] Comment on above: Performed By: #### L IPRF, CDP, PHEP, CP, HIVCMB #### [address] [address] Cardboard Inserter: Severino Jacobson MD MCHC (RBC) [Mass/Vol] 31.8 g/dL Normal 28.4-34.8 [facility] Comment on above: Performed By: #### L IPRF, CDP, PHEP, CP, HIVCMB #### [address] [address] Cardboard Inserter: Severino Jacobson MD MCV (RBC) [Entitic vol] 94.8 fL Normal 82.6-102.9 [facility] Comment on above: Performed By: #### L IPRF, CDP, PHEP, CP, HIVCMB #### [address] [address] Cardboard Inserter: Severino Jacobson MD Monocytes (Bld) [#/Vol] 0.55 10*3/uL Normal 0.10-1.20 [facility] Comment on above: Performed By: #### L IPRF, CDP, PHEP, CP, HIVCMB #### [address] [address] Cardboard Inserter: Severino Jacobson MD Monocytes/100 WBC (Bld) 7 % Normal 3-12 [facility] Comment on above: Performed By: #### L IPRF, CDP, PHEP, CP, HIVCMB #### [address] [address] Cardboard Inserter: Severino Jacobson MD Neutrophil (Seg) 54 % Normal 36-65 [facility] Comment on above: Performed By: #### L IPRF, CDP, PHEP, CP, HIVCMB #### [address] [address] Cardboard Inserter: Severino Jacobson MD NRBC Automated 0.0 per 100 WBC Normal 0.0 [facility] Comment on above: Performed By: #### L IPRF, CDP, PHEP, CP, HIVCMB #### [address] [address] Cardboard Inserter: Severino Jacobson MD Platelet mean volume (Bld) [Entitic vol] 11.0 fL Normal 8.1-13.5 [facility] Comment on above: Performed By: #### L IPRF, CDP, PHEP, CP, HIVCMB #### [address] [address] Cardboard Inserter: Severino Jacobson MD Platelets (Bld) [#/Vol] 382 10*3/uL Normal 138-453 [facility] Comment on above: Performed By: #### L IPRF, CDP, PHEP, CP, HIVCMB #### [facility] [address] [place] [phone] Cardboard Inserter: Severino Jacobson MD RBC (Bld) [#/Vol] 3.62 10*6/uL Low 3.95-5.11 [facility] Comment on above: Performed By: #### L IPRF, CDP, PHEP, CP, HIVCMB #### [address] [address] Cardboard Inserter: Severino Jacobson MD WBC (Bld) [#/Vol] 7.7 10*3/uL Normal 3.5-11.3 [facility] Comment on above: Performed By: #### L IPRF, CDP, PHEP, CP, HIVCMB #### [address] [address] Cardboard Inserter: Severino Jacobson MD Comp Metabolic Profon 2022 Albumin [Mass/Vol] 4.4 g/dL Normal 3.5-5.2 [facility] Comment on above: Performed By: #### L IPRF, CDP, PHEP, CP, HIVCMB #### [address] [address] Cardboard Inserter: Severino Jacobson MD Albumin/Glob Ratio 2.0 Normal 1.0-2.5 [facility] Comment on above: Performed By: #### L IPRF, CDP, PHEP, CP, HIVCMB #### [facility] [address] [place] [address] Cardboard Inserter: Severino Jacobson MD Alkaline Phos 39 U/L Normal 35-104 [facility] Comment on above: Performed By: #### L IPRF, CDP, PHEP, CP, HIVCMB #### [facility] [address] [place] [address] Cardboard Inserter: Severino Jacobson MD ALT [Catalytic activity/Vol] 10 U/L Normal 10-35 [facility] Comment on above: Performed By: #### L IPRF, CDP, PHEP, CP, HIVCMB #### [address] [address] Cardboard Inserter: Severino Jacobson MD Anion gap [Moles/Vol] 9 mmol/L Normal 9-16 [facility] Comment on above: Performed By: #### L IPRF, CDP, PHEP, CP, HIVCMB #### [address] [address] Cardboard Inserter: Severino Jacobson MD AST [Catalytic activity/Vol] 22 U/L Normal [facility] Comment on above: Performed By: #### L IPRF, CDP, PHEP, CP, HIVCMB #### [address] [address] Cardboard Inserter: Severino Jacobson MD Bilirubin [Mass/Vol] 0.3 mg/dL Normal 0.00-1.20 [facility] Comment on above: Performed By: #### L IPRF, CDP, PHEP, CP, HIVCMB #### [address] [address] Cardboard Inserter: Severino Jacobson MD Calcium [Mass/Vol] 9.3 mg/dL Normal 8.6-10.4 [facility] Comment on above: Performed By: #### L IPRF, CDP, PHEP, CP, HIVCMB #### [address] [address] Cardboard Inserter: Severino Jacobson MD Chloride [Moles/Vol] 104 mmol/L Normal 98-107 [facility] Comment on above: Performed By: #### L IPRF, CDP, PHEP, CP, HIVCMB #### [address] [address] Cardboard Inserter: Severino Jacobson MD CO2 [Moles/Vol] 27 mmol/L Normal 20-31 [facility] Comment on above: Performed By: #### L IPRF, CDP, PHEP, CP, HIVCMB #### [address] [id number] Cardboard Inserter: Severino Jacobson MD Creatinine [Mass/Vol] 0.7 mg/dL Normal 0.50-0.90 [facility] Comment on above: Performed By: #### L IPRF, CDP, PHEP, CP, HIVCMB #### [address] [phone] Cardboard Inserter: Severino Jacobson MD GFR/1.73 sq M.predicted among non-blacks MDRD (S/P/Bld) [Vol rate/Area] mL/min/{1.73_m2} Normal >60 [facility] Comment on above: Result Comment: These [...] L IPRF, CDP, PHEP, CP, HIVCMB #### [address] [phone] Cardboard Inserter: Severino Jacobson MD Glucose [Mass/Vol] 82 mg/dL Normal 74-99 [facility] Comment on above: Performed By: #### L IPRF, CDP, PHEP, CP, HIVCMB #### [address] [phone] Cardboard Inserter: Severino Jacobson MD Potassium [Moles/Vol] 3.8 mmol/L Normal 3.7-5.3 [facility] Comment on above: Performed By: #### L IPRF, CDP, PHEP, CP, HIVCMB #### [facility] [address] [place] [address] Cardboard Inserter: Severino Jacobson MD Protein [Mass/Vol] 7.2 g/dL Normal 6.6-8.7 [facility] Comment on above: Performed By: #### L IPRF, CDP, PHEP, CP, HIVCMB #### [facility] [address] [place] [address] Cardboard Inserter: Severino Jacobson MD Sodium [Moles/Vol] 140 mmol/L Normal 136-145 [facility] Comment on above: Performed By: #### L IPRF, CDP, PHEP, CP, HIVCMB #### [facility] [address] [place] [address] Cardboard Inserter: Severino Jacobson MD Urea nitrogen [Mass/Vol] 14 mg/dL Normal 6-20 [facility] Comment on above: Performed By: #### L IPRF, CDP, PHEP, CP, HIVCMB #### [address] [address] Cardboard Inserter: Severino Jacobson MD HIV Ag/Abon 04-11-2023 HIV Ag/Ab Non-Reactive Normal NR [facility] Comment on above: Result Comment: No l aboratory evidence of HIV infection. If acute HIV infection is suspected, consider testing for HIV-1 RNA. Performed By: #### C DP, LIPRF, CP #### [facility] [address] [place] [address] Cardboard Inserter: Severino Jacobson MD Hepatitis Acute [facility] 04-11 Hep A Ab,IgM Non-Reactive Normal NR [facility] Comment on above: Performed By: #### L IPRF, CDP, PHEP, CP, HIVCMB #### [facility] [address] [place] [address] Cardboard Inserter: Severino Jacobson MD Hep B Core Ab,IgM Non-Reactive Normal NR [facility] Comment on above: Performed By: #### L IPRF, CDP, PHEP, CP, HIVCMB #### [address] [address] Cardboard Inserter: Severino Jacobson MD Hep B Surf Ag Non-Reactive Normal NR [facility] Comment on above: Performed By: #### L IPRF, CDP, PHEP, CP, HIVCMB #### [address] [address] Cardboard Inserter: Severino Jacobson MD Hep C Ab Non-Reactive Normal [facility] Comment on above: Result Comment: The [...] L IPRF, CDP, PHEP, CP, HIVCMB #### [address] [address] Cardboard Inserter: Severino Jacobson MD Lipid Prof, Fastingon 2022 Cholesterol [Mass/Vol] 155 mg/dL Normal 0-199 [facility] Comment on above: Result Comment: Cholesterol Guidelines: <200 Desirable 200-240 Borderline >240 Undesirable Performed By: #### C DP, LIPRF, CP #### [address] [address] Cardboard Inserter: Severino Jacobson MD Cholesterol in HDL [Mass/Vol] 49 mg/dL Normal >40 [facility] Comment on above: Result Comment: HDL Guidelines: <40 Undesirable 40-59 Borderline >59 Desirable Performed By: #### C DP, LIPRF, CP #### [address] [address] Cardboard Inserter: Severino Jacobson MD Cholesterol in LDL [Mass/Vol] 98 mg/dL Normal 0-100 [facility] Comment on above: Result Comment: LDL Guidelines: <100 Desirable 100-129 Near to/above Desirable 130-159 Borderline >159 Undesirable Direct (measured) LDL and calculated LDL are not interchangeable tests. Performed By: #### C DP LIPRF, CP #### [address] [address] Cardboard Inserter: Severino Jacobson MD Cholesterol in VLDL [Mass/Vol] 8 mg/dL Normal [facility] Comment on above: Performed By: #### C DYLLAN LIPKOURTNEY, CP #### [facility] [address] [place] [address] Cardboard Inserter: Severino Jacobson MD Cholesterol.total/Chol esterol in HDL [Mass ratio] 3.0 {ratio} Normal [facility] Comment on above: Performed By: #### C DYLLAN LIPRF, CP #### [facility] [address] [place] [address] Cardboard Inserter: Severino Jacobson MD Triglyceride,Fasting 38 mg/dL Normal 0-149 [facility] Comment on above: Result Comment: Triglyceride Guidelines: <150 Desirable 150-199 Borderline 200-499 High >499 Very high Based on AHA Guidelines for fasting triglyceride, February 2012. Performed By: #### C DYLLAN LIPRF, CP #### [facility] [address] [place] [address] Cardboard Inserter: Severino Jacobson MD SURGICALon 03-10-2023 SURGICAL [place] [facility] [id number] Assoc. Page 1 of [address] [place] [address] PROC: 03/10/2023 [place] RECV: 03/13/[address] RPTD: 03/21/2023 [place] [address] LOC: NVCL ACCT: SEX: F [id number] AGE: 32 Y : 1990 PATHOLOGY REPORT [...] on sections examined. Clinical correlation is recommended. [id number] AILEEN DE LA PAZ M.D., F.C.A.P [facility]/ [facility] Printed on: 03/21/[address] [place] [address] Original print date: 03/21/2023 Normal [facility] US PREG ANATOMY SINGLEon US PREG ANATOMY [...] by: VINICIUS GARCIA Date: 2021-08-06 21:37 Normal [facility] CULTURE URINEon 04-25-2021 CULTURE URINE Isolate 1 [...] F Trimethoprim/Sulfame thoxazole <=20 S F Normal [facility] Comment on above: Performed By: #### U RCX ####[facility] [id number] [place], [place] [address]DrChristi Smith HEP B SURFACE ANTIGEN SCREEN on 04-24-2021 HBsAg Screen Negative Normal Negative [facility] Comment on above: Performed By: #### H BSANS #### [facility] [address] [place] [address] Dr. Purvi Smith HIV 1 AND 2 WITH REFLEXon HIV Screen 4th Generation wRfx Non-Reactive Normal Non Reactive The [facility] Comment on above: Performed By: #### H IV12 ####[facility] [id number] [address]Dr. Purvi Smith RPR QUANTon 04-24-2021 Rapid Plasma Reagin, Quant Non-Reactive Normal NonRea<1:1 The [facility] Comment on above: Performed By: #### R PRQ #### [facility] [address] [place] [address] Dr. Purvi Smith RUBELLA AB IGGon 04-24-2021 Rubella Antibodies, IgG 1.35 index Normal Immune >0.99 The [facility] Comment on above: Result Comment: Non- immune <0.90 Equivocal 0.90 - 0.99 Immune >0.99 Performed By: #### R UBIGG #### [facility] [address] [place] [address] Dr. Purvi Smith CBC AUTO DIFFon 04-23-2021 BASO # 0.0 103/ul Normal 0.0-0.1 [facility] Comment on above: Performed By: #### C BC #### [facility] [address] [place] [address] Dr. Purvi Smith Basophils/100 WBC (Bld) 0.3 % Normal 0.2-2.0 The [facility] Comment on above: Performed By: #### C BC #### [facility] [address] [place] [address] Dr. Purvi Smith EO # 0.2 103/ul Normal 0.0-0.7 The [facility] Comment on above: Performed By: #### C BC #### [facility] [address] [place] [address] Dr. Purvi Smith Eosinophils/100 WBC (Bld) 2.1 % Normal 0.9-7.0 The [facility] Comment on above: Performed By: #### C BC #### [facility] [address] [place] [address] Dr. Purvi Smith Erythrocyte distribution width (RBC) [Ratio] 12.1 % Normal 11.0-15.0 [facility] Comment on above: Performed By: #### C BC #### [facility] [address] [place] [address] Dr. Purvi Smith Hematocrit (Bld) [Volume fraction] 32.3 % Critically low 36.0-48.0 [facility] Comment on above: Performed By: #### C BC #### [facility] [address] [place] [address] Dr. Purvi Smith Hemoglobin (Bld) [Mass/Vol] 10.6 g/dL Critically low 12.0-16.0 [facility] Comment on above: Performed By: #### C BC #### [facility] [address] [place] [address] Dr. Purvi Smith IG # 0.04 10e3/ul Critically high 0.00-0.03 [facility] Comment on above: Performed By: #### C BC #### [facility] [address] [place] [address] Dr. Purvi Smith IG % 0.3 % Normal 0.0-0.5 [facility] Comment on above: Performed By: #### C BC #### [facility] [address] [place] [address] Dr. Purvi Smith LYMPH # 2.1 103/ul Normal 1.2-3.8 [facility] Comment on above: Performed By: #### C BC #### [facility] [address] [place] [address] Dr. Purvi Smith Lymphocytes/100 WBC (Bld) 17.9 % Critically low 20.5-60.0 [facility] Comment on above: Performed By: #### C BC #### [facility] [address] [place] [address] Dr. Purvi Smith MANUAL DIFF REQ NO Normal [facility] Comment on above: Performed By: #### C BC #### [facility] [address] [address] [address] Purvi Smith MCH (RBC) [Entitic mass] 30.2 pg Normal 26.7-34.0 [facility] Comment on above: Performed By: #### C BC #### [facility] [address] [place] [address] Dr. Purvi Smith MCHC (RBC) [Mass/Vol] 32.8 g/dL Normal 29.9-35.2 [facility] Comment on above: Performed By: #### C BC #### [facility] [address] [place] [address] Dr. Purvi Smith MCV (RBC) [Entitic vol] 92.0 fL Normal 81.0-99.0 [facility] Comment on above: Performed By: #### C BC #### [facility] [address] [place] [address] Dr. Purvi Smith MONO # 0.8 103/ul Normal 0.3-0.8 [facility] Comment on above: Performed By: #### C BC #### [facility] [address] [place] [address] Dr. Purvi Smith Monocytes/100 WBC (Bld) 6.6 % Normal 1.7-12.0 [facility] Comment on above: Performed By: #### C BC #### [facility] [address] [place] [address] Dr. Purvi Smith NEUT # 8.5 103/ul Critically high 1.4-6.5 [facility] Comment on above: Performed By: #### C BC #### [facility] [address] [place] [address] Dr. Purvi Smith Neutrophils/100 WBC (Bld) 72.8 % Normal 43.0-75.0 The [facility] Comment on above: Performed By: #### C BC #### [facility] [address] [place] [address] Dr. Purvi Smith Platelet mean volume (Bld) [Entitic vol] 10.0 fL Normal 9.5-13.5 The [facility] Comment on above: Performed By: #### C BC #### [facility] [address] [address] [address] Purvi Smith PLT 361 103/ul Normal 150-450 [facility] Comment on above: Performed By: #### C BC #### [facility] [address] [address] [address] Purvi Smith RBC 3.51 106/ul Critically low 4.20-5.40 [facility] Comment on above: Performed By: #### C BC #### [facility] [address] [address] [address] Purvi Smtih WBC 11.7 103/ul Critically high 4.0-11.0 [facility] Comment on above: Performed By: #### C BC #### [facility] [address] [address] [address] Purvi Smith GLYCOHEMOGLOBIN A1Con 2020 ADA RECOMMENDATION ADA THERAPEUTIC TARGET 6.0 - 7.0 ACTION SUGGESTED > 7.0 Normal [facility] Comment on above: Performed By: #### A 1C #### [facility] [address] [address] [address] Purvi Smith Glucose [Mass/Vol] 88 mg/dL Normal [facility] Comment on above: Performed By: #### A 1C #### [facility] [address] [address] [address] Purvi Smith HbA1c (Bld) [Mass fraction] 4.7 % Normal <=6.0 [facility] Comment on above: Performed By: #### A 1C #### [facility] [address] [address] [address] Purvi Smith GASTON BOX TEST PT SEND OUTo n 04-23-2021 SENT TO REF LAB 04/23/2021 Normal [facility] Comment on above: Performed By: #### N BOX #### [facility] [address] [address] [address] Purvi Smith TYPE AND SCREENon 04-23-2021 TYPE AND SCREEN Negative Normal [facility] Comment on above: Performed By: #### T NS #### [facility] [address] [place] [address] Dr. Purvi Smith US PREG TVon 03-30-2021 [...] VINICIUS GARCIA Date: 2021-03-30 10:06 Normal [facility] CBC AUTO DIFFon 03-16-2021 BASO # 0.0 103/ul Normal 0.0-0.1 [facility] Comment on above: Performed By: #### C BC #### [facility] [address] [place] [address] Dr. Purvi Smith Basophils/100 WBC (Bld) 0.3 % Normal 0.2-2.0 [facility] Comment on above: Performed By: #### C BC #### [facility] [address] [place] [address] Dr. Purvi Smith EO # 0.2 103/ul Normal 0.0-0.7 The [facility] Comment on above: Performed By: #### C BC #### [facility] [address] [place] [address] Dr. Purvi Smith Eosinophils/100 WBC (Bld) 1.9 % Normal 0.9-7.0 The [facility] Comment on above: Performed By: #### C BC #### [facility] [address] [place] [address] Dr. Purvi Smith Erythrocyte distribution width (RBC) [Ratio] 11.9 % Normal 11.0-15.0 [facility] Comment on above: Performed By: #### C BC #### [facility] [address] [address] [address] Purvi Smith Hematocrit (Bld) [Volume fraction] 31.5 % Critically low 36.0-48.0 [facility] Comment on above: Performed By: #### C BC #### [facility] [address] [address] [address] Purvi Smith Hemoglobin (Bld) [Mass/Vol] 10.3 g/dL Critically low 12.0-16.0 [facility] Comment on above: Performed By: #### C BC #### [facility] [address] [place] [address] Dr. Purvi Smith IG # 0.04 10e3/ul Critically high 0.00-0.03 [facility] Comment on above: Performed By: #### C BC #### [facility] [address] [place] [address] Dr. Purvi Smith IG % 0.4 % Normal 0.0-0.5 [facility] Comment on above: Performed By: #### C BC #### [facility] [address] [place] [address] Dr. Purvi Smith LYMPH # 2.3 103/ul Normal 1.2-3.8 [facility] Comment on above: Performed By: #### C BC #### [facility] [address] [place] [address] Dr. Purvi Smith Lymphocytes/100 WBC (Bld) 21.5 % Normal 20.5-60.0 [facility] Comment on above: Performed By: #### C BC #### [facility] [address] [place] [address] Dr. Purvi Smith MANUAL DIFF REQ NO Normal [facility] Comment on above: Performed By: #### C BC #### [facility] [address] [place] [address] Dr. Purvi Smith MCH (RBC) [Entitic mass] 30.2 pg Normal 26.7-34.0 [facility] Comment on above: Performed By: #### C BC #### [facility] [address] [address] [address] Purvi Smith MCHC (RBC) [Mass/Vol] 32.7 g/dL Normal 29.9-35.2 The [facility] Comment on above: Performed By: #### C BC #### [facility] [address] [address] [address] Purvi Smith MCV (RBC) [Entitic vol] 92.4 fL Normal 81.0-99.0 [facility] Comment on above: Performed By: #### C BC #### [facility] [address] [address] [address] Purvi Smith MONO # 0.9 103/ul Critically high 0.3-0.8 [facility] Comment on above: Performed By: #### C BC #### [facility] [address] [address] [address] Purvi Smith Monocytes/100 WBC (Bld) 8.4 % Normal 1.7-12.0 [facility] Comment on above: Performed By: #### C BC #### [facility] [address] [address] [address] Purvi Smith NEUT # 7.3 103/ul Critically high 1.4-6.5 [facility] Comment on above: Performed By: #### C BC #### [facility] [address] [place] [address] Dr. Purvi Smith Neutrophils/100 WBC (Bld) 67.5 % Normal 43.0-75.0 The [facility] Comment on above: Performed By: #### C BC #### [facility] [address] [address] [address] Purvi Smith Platelet mean volume (Bld) [Entitic vol] 10.4 fL Normal 9.5-13.5 The [facility] Comment on above: Performed By: #### C BC #### [facility] [address] [address] [address] Purvi Smith PLT 362 103/ul Normal 150-450 The [facility] Comment on above: Performed By: #### C BC #### [facility] [address] [place] [address] Dr. Purvi Smith RBC 3.41 106/ul Critically low 4.20-5.40 [facility] Comment on above: Performed By: #### C BC #### [facility] [address] [place] [address] Dr. Purvi Smith WBC 10.8 103/ul Normal 4.0-11.0 [facility] Comment on above: Performed By: #### C BC #### [facility] [address] [place] [address] Dr. Purvi Smith PROF CHEM 8 (BAS METB)on Anion gap [Moles/Vol] 10.6 mmol/L Normal [facility] Comment on above: Performed By: #### B MP #### [facility] [address] [place] [address] Dr. Purvi Smith Calcium [Mass/Vol] 9.2 mg/dL Normal 8.4-10.2 [facility] Comment on above: Performed By: #### B MP #### [facility] [address] [place] [address] Dr. Purvi Smith Chloride [Moles/Vol] 103 mmol/L Normal 98-107 The [facility] Comment on above: Performed By: #### B MP #### [facility] [address] [place] [address] Dr. Purvi Smith CO2 [Moles/Vol] 25.5 mmol/L Normal 22.0-30.0 [facility] Comment on above: Performed By: #### B MP #### [facility] [address] [place] [address] Dr. Purvi Smith Creatinine [Mass/Vol] 0.61 mg/dL Normal 0.52-1.04 [facility] Comment on above: Performed By: #### B MP #### [facility] [address] [place] [address] Dr. Purvi Smith EGFR-AF NORWEGIAN >60 Normal >=60 [facility] Comment on above: Performed By: #### B MP #### [facility] [address] [place] [address] Dr. Purvi Smith EGFR-NON AF NORWEGIAN >60 Normal >=60 [facility] Comment on above: Performed By: #### B MP #### [facility] [address] [address] [address] Purvi Smith Glucose [Mass/Vol] 80 mg/dL Normal 74-106 [facility] Comment on above: Performed By: #### B MP #### [facility] [address] [address] [address] Purvi Smith Potassium [Moles/Vol] 3.1 mmol/L Critically low 3.4-5.0 [facility] Comment on above: Performed By: #### B MP #### [facility] [address] [address] [address] Purvi Smith Sodium [Moles/Vol] 136 mmol/L Critically low 137-145 [facility] Comment on above: Performed By: #### B MP #### [facility] [address] [address] [address] Purvi Smith Urea nitrogen [Mass/Vol] 11.0 mg/dL Normal 7.0-17.0 [facility] Comment on above: Performed By: #### B MP #### [facility] [address] [address] [address] Purvi Smith Urea nitrogen/Creatinine [Mass ratio] 18.0 mg/mg Normal [facility] Comment on above: Performed By: #### B MP #### [facility] [address] [address] [address] Purvi Smith Vital Signs Date Time Vital Sign Value Performing Clinician Facility 06-23-2024 10:56-0500 Body mass index (BMI) [Ratio] 28.32 kg/m2 Sophia KYLE Work Phone: [facility] 06-23-2024 10:56-0500 Body weight 74.84 kg Sophia KYLE Work Phone: [facility] 06-23-2024 10:56-0500 Diastolic blood pressure 80 mm[Hg] Sophia KYLE Work Phone: [facility] 06-23-2024 10:56-0500 Systolic blood pressure 128 mm[Hg] Sophia Rhoades PA Work Phone: [facility] 06-09-2024 11:35-0500 Body mass index (BMI) [Ratio] 28.69 kg/m2 Shakir Steph DO Work Phone: [facility] 06-09-2024 11:35-0500 Body weight 75.81 kg Shakir Steph DO Work Phone: [facility] 06-09-2024 11:35-0500 Diastolic blood pressure 74 mm[Hg] Shakir Steph DO Work Phone: [facility] 06-09-2024 11:35-0500 Systolic blood pressure 114 mm[Hg] Shakir Steph DO Work Phone: [facility] 05-24-2024 13:21-0500 Body mass index (BMI) [Ratio] 28.63 kg/m2 Sophia KYLE Work Phone: [facility] 05-24-2024 13:21-0500 Body weight 75.66 kg Sophia KYLE Work Phone: [facility] 05-24-2024 13:21-0500 Diastolic blood pressure 80 mm[Hg] Sophia KYLE Work Phone: [facility] 05-24-2024 13:21-0500 Systolic blood pressure 116 mm[Hg] Sophia KYLE Work Phone: [facility] 05-10-2024 13:14-0500 Body mass index (BMI) [Ratio] 28.32 kg/m2 Shakir Steph DO Work Phone: [facility] 05-10-2024 13:14-0500 Body weight 74.84 kg Shakir Steph DO Work Phone: [facility] 05-10-2024 13:14-0500 Diastolic blood pressure 66 mm[Hg] Shakir Steph DO Work Phone: [facility] 05-10-2024 13:14-0500 Systolic blood pressure 106 mm[Hg] Shakir Steph DO Work Phone: [facility] 05-05-2024 10:30-0500 Body height 162.6 cm Ifrah Díaz MD Work Phone: [facility] 05-05-2024 10:30-0500 Body mass index (BMI) [Ratio] 28.21 kg/m2 Ifrah Díaz MD Work Phone: [facility] 05-05-2024 10:30-0500 Body weight 74.57 kg Ifrah Díaz MD Work Phone: [facility] 05-05-2024 10:30-0500 Diastolic blood pressure 68 mm[Hg] Ifrah Díaz MD Work Phone: [facility] 05-05-2024 10:30-0500 Heart rate 90 /min Ifrah Díaz MD Work Phone: [facility] 05-05-2024 10:30-0500 Systolic blood pressure 120 mm[Hg] Ifrah Díaz MD Work Phone: [facility] 04-12-2024 13:58-0500 Body mass index (BMI) [Ratio] 28.63 kg/m2 Sophia KYLE Work Phone: [facility] 04-12-2024 13:58-0500 Body weight 75.66 kg Sophia KYLE Work Phone: [facility] 04-12-2024 13:58-0500 Diastolic blood pressure 70 mm[Hg] Sophia KYLE Work Phone: [facility] 04-12-2024 13:58-0500 Systolic blood pressure 120 mm[Hg] Sophia Rhoades PA Work Phone: [facility] 03-15-2024 10:53-0400 Body mass index (BMI) [Ratio] 27.77 kg/m2 Shakir Steph DO Work Phone: [facility] 03-15-2024 10:53-0400 Body weight 73.39 kg Shakir Steph DO Work Phone: [facility] 03-15-2024 10:53-0400 Diastolic blood pressure 72 mm[Hg] Shakir Steph DO Work Phone: [facility] 03-15-2024 10:53-0400 Systolic blood pressure 110 mm[Hg] Shakir Steph DO Work Phone: [facility] 02-06-2024 15:11-0400 Diastolic blood pressure 63 mm[Hg] [facility] [employer] 02-06-2024 15:11-0400 Heart rate 89 /min Stv 11 [facility] [employer] 02-06-2024 15:11-0400 Systolic blood pressure 97 mm[Hg] Stv 11 [facility] [employer] 02-06-2024 14:22-0400 Respiratory rate 16 /min Stv 11 [facility] [employer] 01-29-2024 11:52-0400 Body mass index (BMI) [Ratio] 27.64 kg/m2 Shakir Steph DO Work Phone: [facility] 01-29-2024 11:52-0400 Body weight 73.03 kg Shakir Steph DO Work Phone: [facility] 01-29-2024 11:52-0400 Diastolic blood pressure 74 mm[Hg] Shakir Steph DO Work Phone: [facility] 01-29-2024 11:52-0400 Systolic blood pressure 112 mm[Hg] Shakir Steph DO Work Phone: [facility] Healthcare Encounters Encounter Date Encounter Type Care Provider Facility Start: 07-09-2024 End: 07-09-2024 Clinisync Result Encounter Sophia KYLE Work Phone: [facility] External Department Unsolicited Start: 07-09-2024 End: 07-09-2024 Clinisync Result Encounter Sophia KYLE Work Phone: [facility] External Department Unsolicited Start: 07-08-2024 End: 07-08-2024 Bamboo flowsheet Shakir Steph DO Work Phone: [facility] Start: 07-08-2024 End: 07-08-2024 Bamboo flowsheet Shakir Steph DO Work Phone: [facility] Start: 06-23-2024 End: 06-23-2024 Bamboo flowsheet Sophia KYLE Work Phone: [facility] Start: 06-23-2024 End: 06-23-2024 Bamboo flowsheet Sophia KYLE Work Phone: [facility] Start: 06-23-2024 End: 06-23-2024 Clinisync Result Encounter Shakir Steph DO Work Phone: [facility] External Department Unsolicited Start: 06-23-2024 End: 06-23-2024 Office outpatient visit 15 minutes Sophia KYLE Work Phone: [facility] Comment on above: Third trimester preg yenny; 33 weeks gestation of ; Urinary tract infection with hematuria, site unspecified Start: 06-23-2024 End: 06-23-2024 ambulatory SOPHIA RHOADES Not Available Start: 06-22-2024 End: 06-22-2024 [facility] Start: 06-09-2024 End: 06-09-2024 Bamboo flowsheet Shakir Steph DO Work Phone: [facility] Start: 06-09-2024 End: 06-09-2024 Bamboo flowsheet Shakir Steph DO Work Phone: [facility] Start: 06-09-2024 End: 06-09-2024 ambulatory SHAKIR STEPH Not Available Start: 06-09-2024 End: 06-09-2024 Office outpatient visit 15 minutes Shakir Steph DO Work Phone: [facility] Comment on above: 31 weeks gestation o f ; Second trimester ; Right club foot; Premature uterine contractions, antepartum Start: 06-03-2024 End: 06-03-2024 [facility]: 05-24-2024 End: 05-24-2024 Bamboo flowsheet Sophia KYLE Work Phone: [facility] Start: 05-24-2024 End: 05-24-2024 Bamboo flowsheet Sophia KYLE Work Phone: [facility] Start: 05-24-2024 End: 05-24-2024 Office outpatient visit 15 minutes Sophia KYLE Work Phone: [facility] Comment on above: 29 weeks gestation o f ; Third trimester ; SGA (small for gestational age) Start: 05-24-2024 End: 05-24-2024 ambulatory SOPHIA RHOADES Not Available Start: 05-13-2024 End: 05-13-2024 ambulatory [facility] Start: 05-10-2024 End: 05-10-2024 Bamboo flowsheet Shakir Steph DO Work Phone: [facility] Start: 05-10-2024 End: 05-11-2024 Bamboo flowsheet Shakir Steph DO Work Phone: [facility] Start: 05-10-2024 End: 05-11-2024 External Result Encounter Shakir Steph DO Work Phone: [facility] External Department Unsolicited Start: 05-10-2024 End: 05-10-2024 Office outpatient visit 15 minutes Shakir Steph DO Work Phone: [facility] Comment on above: 27 weeks gestation o f ; Second trimester ; Urinary tract infection without hematuria, site unspecified Start: 05-10-2024 End: 05-10-2024 ambulatory SHAKIR STEPH Not Available Start: 05-05-2024 End: 05-05-2024 Office outpatient new 45 minutes Ifrah Díaz MD Work Phone: [facility] Comment on above: Club foot of fetus a ffecting antepartum care of mother, other fetus (Primary Dx); Placenta previa in second trimester; Suspected problem with placenta not found; History of delivery, currently ; History of drug overdose; History of placental abruption; Anxiety and depression; 26 weeks gestation of Start: 05-05-2024 End: 05-05-2024 Orders Only Stephaniekarrie Bucio BEREAVEMENT PROGRAM COORDINATOR [facility] Comment on above: Club foot of fetus a ffecting antepartum care of mother, other fetus (Primary Dx); Placenta previa in second trimester; Suspected problem with placenta not found; History of delivery, currently ; History of drug overdose Start: 04-12-2024 End: 04-12-2024 Bamboo flowsheet Sophia KYLE Work Phone: [facility] Start: 04-12-2024 End: 04-12-2024 Bamboo flowsheet Sophia KYLE Work Phone: [facility] Start: 04-12-2024 End: 04-12-2024 Office outpatient visit 15 minutes Sophia KYLE Work Phone: [facility] Comment on above: Bacterial vaginosis (Primary Dx); 23 weeks gestation of ; Second trimester ; Diabetes mellitus screening Start: 04-12-2024 End: 04-12-2024 ambulatory SOPHIA RHOADES Not Available Start: 04-09-2024 End: 04-09-2024 ambulatory VINICIUS [facility] Start: 04-06-2024 End: 04-06-2024 Clinisync Result Encounter Shakir Steph DO Work Phone: [facility] External Department Unsolicited Start: 04-06-2024 End: 04-06-2024 Clinisync Result Encounter Shakir Steph DO Work Phone: [facility] External Department Unsolicited Start: 03-15-2024 End: 03-15-2024 Bamboo flowsheet Shakir Steph DO Work Phone: [facility] Start: 03-15-2024 End: 03-15-2024 Bamboo flowsheet Shakir Steph DO Work Phone: [facility] Start: 03-15-2024 End: 03-15-2024 Office outpatient visit 15 minutes Shakir Steph DO Work Phone: [facility] Comment on above: Second trimester pre gnancy; 17 weeks gestation of ; UTI symptoms Start: 03-15-2024 End: 03-15-2024 ambulatory SHAKIR STEPH Not Available Start: 02-26-2024 End: 02-26-2024 Emergency department patient visit [facility] Start: 02-06-2024 End: 02-06-2024 ambulatory [facility] Start: 02-06-2024 End: 02-06-2024 Subsequent hospital visit by physician Clarita Burt Med Onc Chair 11 [facility] Comment on above: Iron deficiency anem ia, unspecified iron deficiency anemia type (Primary Dx) Start: 01-30-2024 End: 01-30-2024 ambulatory [facility] Start: 01-29-2024 End: 01-29-2024 Bamboo flowsheet Shakir Steph DO Work Phone: [facility] Start: 01-29-2024 End: 01-31-2024 Bamboo flowsheet Shakir Steph DO Work Phone: [facility] Start: 01-29-2024 End: 01-31-2024 External Result Encounter Shakir Steph DO Work Phone: [facility] External Department Unsolicited Start: 01-29-2024 End: 01-29-2024 [...] Unsolicited Start: 01-01-2024 End: 01-01-2024 ambulatory SOPHIA RHOADES Not Available Start: 12-20-2023 End: 12-20-2023 Emergency department patient visit VINICIUS Huntley [facility] Start: 12-05-2023 End: 12-05-2023 ambulatory BENSON DIAL [facility] Start: 11-24-2023 End: 11-24-2023 Emergency department patient visit VINICIUS Huntley [facility] Start: 11-06-2023 End: 11-06-2023 ambulatory [facility] Start: 09-08-2023 End: 09-08-2023 Telephone encounter Amber Smith [facility] Comment on above: appointment due Start: 09-02-2023 End: 09-02-2023 ambulatory [facility] Start: 07-17-2023 End: 07-17-2023 Emergency department patient visit VINICIUS Huntley [facility] Start: 04-11-2023 End: 04-11-2023 ambulatory BERNIE [facility] Start: 03-12-2023 ambulatory BENSON DIAL [facility] Start: 09-10-2021 End: 09-10-2021 Subsequent hospital visit by physician Clarita Infusion Bed 3 [facility] 3C Med Surg Start: 08-21-2021 End: 08-21-2021 Subsequent hospital visit by physician Benson Dial [facility] Start: 08-06-2021 End: 08-07-[address] SHAKIR CHOI Facility:[facility] Start: 04-23-2021 End: 04-24-[address] SHAKIR CHOI Facility:[facility] Start: 04-21-2021 End: 04-22-[address] SHAKIR CHOI Facility:[facility] Start: 03-30-2021 End: 03-31-[address] SHAKIR CHOI Facility:[facility] Start: 03-16-2021 End: 03-16-2021 ambulatory JAZMIN GARBER Facility:[facility]1 Procedures Date Procedure Procedure Detail Performing Clinician Start: 07-09-2024 OB BPP W NON-STRESS Sophia KYLE Work Phone: Start: 06-23-2024 OB BPP W NON-STRESS Shakir Steph DO Work Phone: Start: 06-23-2024 Urnls dip [...] Work Phone: Start: 04-06-2024 [facility] UA (CLEAN/CATCH) RAILROAD WATCHMAN/MICRO IF IND. Shakir Steph DO Work Phone: Start: 04-06-2024 [facility] URINE MICROSCOPIC ONLY Shakir Steph DO Work Phone: Start: 03-15-2024 Urnls dip [...] Adult depression scr eening assessment Amber Smith BEREAVEMENT PROGRAM COORDINATOR Start: 08-21-2021 Microscopic observat ion [Identifier] in Cervix by Cyto stain Stv 3 Plan of Treatment Date Care Activity Detail Author Start: 05-05-2025 Adult BMI Screening Adult BMI Screen ing [facility] Start: 05-05-2025 Tobacco Screening Tobacco Screening [facility] Start: 05-05-2025 End: 05-05-2025 US MFM with or without consult US MFM with or without consult Imaging Routine 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, other fetus Placenta previa in second trimester Suspected problem with placenta not found History of delivery, currently History of drug overdose Expected: 05/05/2025 (Approximate), Expires: 05/05/2025 [employer] Work Phone: Comment on above: Expected: 05/05/2025 (Approximate), Expires: 05/05/2025 Start: 08-21-2024 Screening for malign ant neoplasm of cervix [facility] Start: 07-17-2024 Adult BMI Screening Adult BMI Screen ing [facility] Start: 07-17-2024 Tobacco Screening Tobacco Screening [facility] Start: 07-15-2024 End: 07-15-2024 Patient encounter procedure 07/15/2024 11:20 AM EST Routine [facility] [address] [place] [address] Shakir Choi, DO [address] [place] [address] [facility] Start: 07-08-2024 End: 07-08-2024 Patient encounter procedure 07/08/2024 10:40 AM EST Routine [facility] [address] [facility] [place] [place] [address] Shakir Choi, DO [facility] [place] [address] [facility] Start: 06-23-2024 End: 06-23-2024 Patient encounter procedure [facility] Comment on above: Arrived Start: 06-12-2024 Respiratory Syncytia l Virus (RSV) or age 60 yrs+ (1 - Risk 1-dose series) Respiratory Syncytial Virus (RSV) or age 60 yrs+ (1 - Risk 1-dose series) [facility] Start: 06-09-2024 End: 06-09-2024 Patient encounter procedure 06/09/2024 11:20 AM EST Routine [facility] [address] [facility] [place] [address] Shakir Choi, [facility] [place] [address] [facility] Start: 06-03-2024 End: 06-03-2024 Patient encounter procedure 06/03/2024 2:15 PM EST Appointment [facility] [address] [place] [address] [facility] Start: 05-24-2024 End: 05-24-2025 US biophysical profile w non stress test US biophysical profile w non stress test Imaging Routine 29 weeks gestation of Third trimester SGA (small for gestational age) Expected: 05/24/2024 (Approximate), Expires: 05/24/2025 [facility] Comment on above: Expected: 05/24/2024 (Approximate), Expires: [...] AM EST Routine [facility] [address] [place] [address] Sophia Rhoades PA [address] [address] [facility] Start: 04-12-2024 End: 04-12-2025 [...] Expected: 04/12/2024 (Approximate), Expires: 04/12/2025 [facility] Comment on above: Expected: 04/12/2024 (Approximate), Expires: 04/12/2025 Start: 04-01-2024 End: 04-01-2024 Telemedicine consultation with patient 04/01/2024 4:00 PM EST Telemedicine [id number] [place] [address] Jossue Swain MD [address] [place] [address] 3 month f/u [facility] Comment on above: 3 month f/u Start: 03-15-2024 End: 03-15-2024 Patient encounter procedure 03/15/2024 10:00 AM EDT Routine [facility] [address] [place] [id number] Shakir Choi, DO [address] [place] [address] Arrived [facility] Comment on above: Arrived Start: 02-26-2024 End: 02-26-2024 Patient encounter procedure 02/26/2024 9:40 AM EDT Routine [facility] [address] [facility] [place] [id number] Sophia Rhoades PA [address] [address] [facility] Start: 01-29-2024 End: 01-29-2024 Patient encounter procedure 01/29/2024 10:40 AM EDT Routine [facility] [address] [place] [id number] Shakir Choi, DO [address] [place] [address] [facility] Start: 01-25-2024 COVID-19 Vaccine ( season) COVID-19 Vaccine ( season) [facility] Start: 01-25-2024 COVID-19 Vaccine ( season) COVID-19 Vaccine ( season) [facility] Start: 01-25-2024 Influenza vaccination P [facility] Start: 12-25-2023 Influenza vaccination Flu vaccine (# 1) [facility] Start: 04-25-2023 Depression Screening Depression Scre ening [facility] Start: 01-24-2023 COVID-19 Vaccine (3 - 2023-24 season) COVID-19 Vaccine (2022-24 season) [facility] Start: 11-11-2022 DTaP,Tdap and Td Vaccines (7 - Td or Tdap) DTaP,Tdap and Td Vaccines (7 - Td or Tdap) [facility] Start: 11-11-2022 DTaP/Tdap/Td vaccine (7 - Td or Tdap) DTaP/Tdap/Td vaccine (7 - Td or Tdap) [facility] Start: 2022 Screening for malign ant neoplasm of cervix [facility] Start: 01-24-2022 Influenza vaccination Flu vacc ine (Season Ended) [facility] Start: 10-01-2021 End: 10-01-2021 Patient encounter procedure 10/01/2021 Routine Obstetrics and Gynecology Kristel De Leon N, DO [address] [place], [place] [id number] [facility] Start: 09-04-2021 End: 09-04-2021 Patient encounter procedure 09/04/2021 Routine Obstetrics and Gynecology Anisha Lucas N, DO [address] [place], [place] [id number] [facility] Start: 01-24-2021 Influenza vaccination Flu vaccine (# 1) [facility] Start: 08-03-2019 Varicella vaccine (2 of 2 - 13+ 2-dose series) Varicella vaccine (2 of 2 - 13+ 2-dose series) [facility] Start: 07-28-2019 Hepatitis B vaccine (3 of 3 - 19+ 3-dose series) Hepatitis B vaccine (3 of 3 - 19+ 3-dose series) [facility] Start: 2013 Screening for malign ant neoplasm of cervix Pap smear [facility] Start: 09-21-2011 DTaP/Tdap/Td vaccine (1 - Tdap) DTaP/Tdap/Td vaccine (1 - Tdap) [facility] Start: 2010 Adult BMI Follow Up Plan Adult BMI Follow Up Plan [facility] Start: 2010 Hepatitis C screening Hepatitis C sc reen [facility] Start: 2004 Depression Screen Depression Screen [facility] Start: 1997 COVID-19 Vaccine (1) COVID-19 Vaccin e (1) [facility] Start: 1993 Varicella vaccine (1 of 2 - 2-dose childhood series) Varicella vaccine (1 of 2 - 2-dose childhood series) [facility] Start: 1992 Hepatitis C screening Hepatitis C [facility] Bacteria identified in Urine by Culture Urine culture Microbiology Routine UTI symptoms Ordered: 03/15/2024 [facility] Work Phone: Comment on above: Ordered: 03/15/2024 Bacteria identified in Urine by Culture Urine culture Microbiology Routine 27 weeks gestation of Urinary tract infection without hematuria, site unspecified Ordered: 05/10/2024 [facility] Work Phone: Comment on above: Ordered: 05/10/2024 Bacteria identified in Urine by Culture Urine culture Microbiology Routine Urinary tract infection without hematuria, site unspecified Ordered: 01/29/2024 [facility] Work Phone: Comment on above: Ordered: 01/29/2024 Hemoglobin A1c/Hemoglobin.total in Blood Hemoglobin A1c Lab Routine 29 weeks gestation of Third trimester SGA (small for gestational age) Ordered: 05/24/2024 [facility] [employer] Comment on above: Ordered: 05/24/2024 Immunizations Immunization Date Immunization Notes Care Provider Walter mahmood 08-06-2019 Influenza, injectabl e, Madin Estefania Canine Kidney, [facility]ative free[facility] influenza virus vaccine, unspecified formulation Amber [facility] 07-06-2019 tuberculin skin test ; purified protein derivative solution, intradermal Amber [facility] 07-06-2019 varicella virus vaccine Amber [facility] 03-01-2019 hepatitis B vaccine, adult dosage Amber [facility] 01-27-2019 hepatitis B vaccine, adult dosage Amber [facility] 11-11-2012 tetanus toxoid, redu lucrecia diphtheria toxoid, and acellular pertussis vaccine, adsorbed [facility] 06-11-2012 influenza, seasonal, injectable Amber [facility] 01-01-2005 measles, mumps and rubella virus vaccine Amber [facility] 01-01-2005 poliovirus vaccine, inactivated Amber [facility] 01-01-2005 TD(adult) unspecifie d formulation Amber [facility] 05-02-1995 diphtheria, tetanus toxoids and acellular pertussis vaccine, unspecified formulation Amber [facility] 03-22-1994 diphtheria, tetanus toxoids and acellular pertussis vaccine, unspecified formulation Amber [facility] 03-22-1994 haemophilus influenz ae type b vaccine, conjugate unspecified formulation [facility] 03-22-1994 measles, mumps and rubella virus vaccine [facility] 03-22-1994 poliovirus vaccine, unspecified formulation Amber [facility] 07-27-1993 diphtheria, tetanus toxoids and acellular pertussis vaccine, unspecified formulation Amber [facility] 07-27-1993 haemophilus influenz ae type b vaccine, conjugate unspecified formulation Amber [facility] 07-27-1993 hepatitis B vaccine, pediatric or pediatric/adolescent dosage Amber [facility] 07-27-1993 poliovirus vaccine, unspecified formulation Amber [facility] 1992 diphtheria, tetanus toxoids and acellular pertussis vaccine, unspecified formulation Amber [facility] 1992 haemophilus influenz ae type b vaccine, conjugate unspecified formulation Amber [facility] 1992 hepatitis B vaccine, pediatric or pediatric/adolescent dosage Amber [facility] 1992 poliovirus vaccine, unspecified formulation Amber [facility] 1992 hepatitis B vaccine, pediatric or pediatric/adolescent dosage [facility] Payers Date Payer Category Payer Medicaid (Managed Care) [employer] [id number] 2003 Medicaid [id number] 2003 Medicaid HMO [employer] [id number] 1992 Unknown [id number] 1992 Unknown [id number] 2.16840.1.773971.3.579.2. 593 1992 Unknown [id number] 2.16840.1.646314.3.579.2. 593 1992 Unknown [id number] 2.16840.1.161169.3.579.2. 593 1992 Unknown [id number] 2.16840.1.035823.3.579.2. 593 1992 Unknown [id number] 2.16.840.1.659651.3.579.2. 93 1992 Unknown [id number] 2.16.840.1.363320.3.579.2. 177 1992 Unknown [id number] 2.16840.1.506440.3.579.2. 175 1992 Unknown [id number] 2.16.840.1.930990.3.579.2. 175 1992 Unknown [id number] 2.16840.1.045361.3.579.2. 175 1992 Unknown [id number] 2.16840.1.321800.3.579.2. 175 1992 Unknown [id number] 2.16840.1.746554.3.579.2. 175 1992 Unknown [id number] 2.840.1.947420.3.579.2. 1285 1992 Unknown [id number] 2.840.1.250452.3.579.2. 1285 1992 Unknown [id number] 2.840.1.230628.3.579.2. 1285 1992 Unknown [id number] 2.840.1.607584.3.579.2. 1285 1992 Unknown [id number] 2.840.1.416812.3.579.2. 1285 1992 Unknown [id number] 2.840.1.767913.3.579.2. 1285 1992 Unknown [id number] 2.840.1.223283.3.579.2. 1285 1992 Unknown [id number] 2.16840.1.868128.3.579.2. 1285 1992 Unknown [id number] 2.16840.1.307174.3.579.2. 1285 1992 Unknown [id number] 2.16840.1.836064.3.579.2. 1285 1992 Unknown [id number] 2.16.840.1.915916.3.579.2. 9 1992 Unknown [id number] 2.16.840.1.140930.3.579.2. 9 1992 Unknown [id number] 2.16.840.1.802917.3.579.2. 1258 1992 Unknown [id number] 2.16.840.1.679134.3.579.2. 1258 1992 Unknown [id number] 2.16.840.1.452009.3.579.2. 1258 1992 Unknown [id number] 2.16.840.1.759081.3.579.2. 9 1992 Unknown [id number] 2.16.840.1.388372.3.579.2. 1258 1992 Unknown [id number] 2.16.840.1.781580.3.579.2. 1259 1959 Self-pay [id number] 1959 Unknown [id number] Unknown [id number] 2.16.840.1.315915.3.579.2. 593 Social History Date Type Detail Facility Start: 06-23-2012 End: 01-01-2024 Tobacco smoking status [facility] Never smoked tobacco [employer] Phone: Start: 06-23-2012 End: 01-01-2024 Tobacco use and exposure Smokeless tobacco non-user [employer] Phone: Start: 08-21-2021 End: 06-09-2024 Alcohol intake Lifetime non-drinker (finding) [employer] Phone: Start: 08-21-2021 History SDOH Alcohol Frequency 1 [employer] Phone: Start: 02-16-[address] [facility] Work Phone: Start: 1990 [facility] Start: 09-01-2021 End: 09-04-2021 Tobacco smoking status [facility] Ex-smoker [facility] Start: 09-04-2021 End: 12-05-2023 Alcohol intake Ex-drinker (finding) [employer] Phone: Start: 07-06-2020 End: 01-01-2024 History of Social function [facility] [employer] [facility] Start: 07-06-2020 End: 01-01-2024 Tobacco use panel [facility] Start: 1990 Sex assigned at Female [facility] History of tobacco use Current smoker [facility] Has the [employer], or [employer] threatened to shut off services in your home in past 12Mo No [facility] How hard is it for y ou to pay for the very basics like food, housing, medical care, and heating Not hard at all [facility] The thought of krishan jeronimo myself has occurred to me Never [facility] Start: 05-01-2018 Alcohol Comment once a month / couple glasses of wine [facility] Start: 12-29-2014 Sex Female (finding) [facility] Start: 07-17-2023 Alcoholic beverage intake Current drinker of alcohol (finding) [facility] Goals Date Patient Goal Desired Activity /State [...] Colette Hypertension Mother Colette Heart disease Father Kwna Heart failure Father Kwan Breast cancer Father's [...] having contractions on 06/20/2024 and went to [facility] for evaluation pt states she was given IV fluids and the contractions went away. On 06/22/2024 pt states she went to [facility] due to contractions again @ 7-10 [...] of: ANABELLA Gleason documented in this encounter [facility] 06-09-2024 History of Presen t illness Narrative [...] Past Medical History: Diagnosis Date Anxiety Asthma ([facility]) Chlamydia Depression ([facility]) History of miscarriage Iron deficiency anemia SAB (spontaneous ) UTI (urinary tract infection) HISTORY PAST MEDICAL HISTORY SOCIAL HISTORY Past Medical History: Diagnosis Date Anxiety Asthma ([facility]) Chlamydia Depression ([facility]) History of miscarriage Iron deficiency [...] nursing note reviewed. Exam conducted with a it generalist present. Vitals: Estimated body mass index is [...] Shakir Choi DO documented in this encounter [facility] 05-24-2024 History of Presen t illness [...] Past Medical History: Diagnosis Date Anxiety Asthma ([facility]) Chlamydia Depression ([facility]) History of miscarriage Iron deficiency anemia SAB (spontaneous ) UTI (urinary tract infection) HISTORY PAST MEDICAL HISTORY SOCIAL HISTORY Past Medical History: Diagnosis Date Anxiety Asthma ([facility]) Chlamydia Depression ([facility]) History of miscarriage Iron deficiency [...] was seen and admitted to hospital in [place] when she was on jeane stating they [...] of: ANABELLA Gleason documented in this encounter [facility] 05-10-2024 History of Presen t illness [...] Past Medical History: Diagnosis Date Anxiety Asthma ([facility]) Chlamydia Depression ([facility]) History of miscarriage Iron deficiency anemia SAB (spontaneous ) UTI (urinary tract infection) HISTORY PAST MEDICAL HISTORY SOCIAL HISTORY Past Medical History: Diagnosis Date Anxiety Asthma ([facility]) Chlamydia Depression ([facility]) History of miscarriage Iron deficiency [...] nursing note reviewed. Exam conducted with a it generalist present. Vitals: Estimated body mass index is [...] a day. Is doing growth ultrasounds at [facility] on 06/03/ will start here after, NST/BPP at 32 weeks. Rx for macrobid faxed to pharmacy. Orders Placed This Encounter Procedures Urine culture POCT urinalysis dipstick manually resulted Follow Up: Patient is to return to office in 2 week for routine OB appointment. Documented by Ct Nunez LPN on behalf of: Sophia Rhoades PA-C documented in this encounter [facility] 05-05-2024 History of Presen t illness [...] female Have you been seen here at [facility] in a previous ? Yes Recent ER visits or hospitalizations? Yes , spotting Bring blood sugar log or meter with you today? (Please bring them with you for every visit at [facility]) n/a Flu vaccine (Mar-July)? No Any concerns [...] taking: Reported on 05/05/2024 12/20/23 Candice Lim APRN-MALA SH: Social History Socioeconomic History Marital status: [...] also discussed pediatric orthopedic follow-up postnatally. Ct patient care technician met with the patient after the visit. [...] Follow-up with Pediatric Orthopedic surgery postnatally. Ct patient care technician met with the patient today. Plan reviewed with patient. She vocalized understanding all questions answered. The patient is to continue with routine care in your office [facility], the CDC, and other organizations representing maternal and public health professionals recommend that , , and lactating people and those considering receive the COVID-19 vaccination. Vaccination is the best method to reduce maternal and complications of SARS-CoV-2 infection. This document was created with [employer] technology. Though I make every effort to review the dictation as it is transcribed, on occasion the spoken word can be misinterpreted by the technology leading to inappropriate words, phrases, or sentences. This note is addressed to the requesting provider as a consultation for clinical guidance. Specific medical abbreviations are occasionally used and those are generally approved by the [place]?Board of?Obstetrics and?Gynecology?as well as?Kenna s abbreviations. The above plan of care was based solely on the diagnoses for which a consultation was requested. ?More frequent testing may be indicated based on her other medical/obstetrical conditions. The management of other or medical conditions is beyond the scope of requested consultation and will continue to be followed by the primary proced tech or primary care provider. Thank you for [...] procedures Referring and communicating with other health animal caretaker supervisor (not separately reported) Documenting clinical information in the electronic or other health record Independently interpreting results (not separately reported) and communicating results to the patient/family/caregiver Care coordination (not separately reported) documented in this encounter [facility] 04-12-2024 History of Presen t illness Narrative [...] Past Medical History: Diagnosis Date Anxiety Asthma ([facility]) Chlamydia Depression ([facility]) History of miscarriage Iron deficiency anemia SAB (spontaneous ) UTI (urinary tract infection) HISTORY PAST MEDICAL HISTORY SOCIAL HISTORY Past Medical History: Diagnosis Date Anxiety Asthma (CMS/HCC) Chlamydia Depression ([facility]) History of miscarriage Iron deficiency [...] of: ANABELLA Gleason documented in this encounter [facility] 03-15-2024 History of Presen t illness [...] Past Medical History: Diagnosis Date Anxiety Asthma ([facility]) Chlamydia Depression ([facility]) History of miscarriage Iron deficiency anemia SAB (spontaneous ) UTI (urinary tract infection) HISTORY PAST MEDICAL HISTORY SOCIAL HISTORY Past Medical History: Diagnosis Date Anxiety Asthma ([facility]) Chlamydia Depression ([facility]) History of miscarriage Iron deficiency [...] nursing note reviewed. Exam conducted with a it generalist present. Vitals: Estimated body mass index is [...] Shakir Choi DO documented in this encounter [facility] 02-06-2024 History of Presen t illness Narrative Pt here for Feraheme infusion. Infusion complete without incident. Pt d/c'd in stable condition. Returns 04-01-24 for f/u. documented in this encounter [facility] 01-29-2024 History of Presen t [...] nursing note reviewed. Exam conducted with a it generalist present. Vitals: Estimated body mass index is [...] or undercooked meat, and stay away from [facility]. Patient has been consulted regarding [...] Shakir Choi DO documented in this encounter [facility] 09-08-2023 Miscellaneous Notes Care Coordination Outreach performed to coordinate overdue appointments, testing, and/or follow-up care: Yes Audit/Outreach Date: September 08, 2023 Reason: Well Person Method: Telephone and MyChart Outreach Attempt: First Outcome: Left Message Next PCP Appointment: N/A Tests/Referrals Pended: N/A Resources/Education Provided: Additional Comments: documented in this encounter [facility] 09-08-2023 Telephone encounter Note Care Coordination Outreach performed to coordinate overdue appointments, testing, and/or follow-up care: Yes Audit/Outreach Date: September 08, 2023 Reason: Well Person Method: Telephone and MyChart Outreach Attempt: First Outcome: Left Message Next PCP Appointment: N/A Tests/Referrals Pended: N/A Resources/Education Provided: Additional Comments: [facility] Evaluation note Diagnosis Second trimester state, incidental 17 weeks gestation of UTI symptoms [facility] Diagnosis Bacterial vaginosis- Primary Unspecified [...] of drug overdose documented [facility] Diagnosis 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, other fetus- Primary Placenta previa in second trimester Suspected problem with placenta not found Suspected placental problem not found History of delivery, currently with history of pre-term labor History of drug overdose History of placental abruption Anxiety and depression 26 weeks gestation of documented in this encounter [facility]* Diagnosis 27 [...] state, incidental SGA (small for gestational age) Usqci-sri-lainv without mention of malnutrition, unspecified (weight) [facility] Diagnosis 31 weeks gestation of Second trimester state, incidental Right club foot Premature uterine contractions, antepartum Unspecified abnormality of labor, antepartum [facility] Diagnosis Iron deficiency anemia, unspecified iron deficiency anemia type- Primary [facility] Diagnosis Third trimester state, incidental 33 weeks gestation of Urinary tract infection with hematuria, site unspecified documented in this encounter [facility] HealthcareInstructionsNot on filedocumented in this encounterProMedihi Health SystemInstructionsNot on filedocumented in this encounterProMediSelect [facility] SystemInstructionsNot on filedocumented in this encounterProTrihealth [facility] SystemReason for visit Narrative* Treatment Plan and Therapy Plan (Routine) - Authorized Specialty Diagnoses / Procedures Referred By Contac t Referred To Contact Diagnoses Iron deficiency anemia, unspecified iron deficiency anemia type Procedures MT FERUMOXYTOL, NON-ESRD Jossue Swain MD [address] [place] [address] [facility] Med Onc [address] [place] [address] Referral ID Status Reason Start Date Expiration Date V isits Requested Visits Authorized [id number] Authorized 01/14/2024 04/15/2024 10 10 [facility] Summary Purpose Family History No Family History Records FoundNo Family History Records FoundNo Family History Records FoundNo Family History Records FoundNo Family History Records FoundNo Family History Records FoundNo Family History Records Found Advance Directives Documents on File Type Date Recorded Patient Industrial Pharmacist Expl anation ACP-Advance Directive ACP-Power of Industrial Refrigeration Mechanic Date Activated Date Inactivated Comments 04/09/2024 7:33 [...] and content) DATE CREATED AUTHOR 08/08/[address] [facility] DATE CREATED AUTHOR AUTHOR'S ORGANIZ ATION 03/23/2023 [facility] DATE CREATED AUTHOR AUTHOR'S ORGANIZ ATION 12/11/2023 [facility] DATE CREATED AUTHOR AUTHOR'S ORGANIZ ATION 02/08/2024 [facility] DATE CREATED AUTHOR AUTHOR'S ORGANIZ ATION 06/08/2024 [facility] DATE CREATED AUTHOR AUTHOR'S ORGANIZ ATION 06/24/2024 [facility] DATE CREATED AUTHOR AUTHOR'S ORGANIZ ATION 06/25/2024 [facility] EPIC Care Teams (unrecognized sec tion and content) Radio Television Technical Director Relationship Specialty Start Date End Date Benson Dial MD PCP - General 10/08/12 [employer] Technical Director Relationship Specialty Start Date End Date Benson Dial MD PCP - General 10/08/12 [employer] Technical Director Relationship Specialty Start Date End Date Vinicius Quintana MD [address] [place] [address] PCP - General Family Medicine 03/03/23 [employer] Technical Director Relationship Specialty Start Date End Date Vinicius Quintana MD [address] [place] [address] PCP - [facility] 03/03/23 [employer] Technical Director Relationship Specialty Start Date End Date Vinicius Quintana MD [address] [place] [address] PCP - [facility] 03/03/23 [employer] Technical Director Relationship Specialty Start Date End Date Vinicius Quintana MD [address] [place] [address] PCP - [facility] Medicine 03/03/23 [employer] Technical Director Relationship Specialty Start Date End Date Vinicius Quintana MD [address] [place] [address] PCP - [facility] Medicine 03/03/23 [employer] Technical Director Relationship Specialty Start Date End Date Vinicius Quintana MD [address] [place] [address] PCP - General [facility] Medicine 03/01/17 [employer] Technical Director Relationship Specialty Start Date End Date Vinicius Quintana MD [address] [place] [address] PCP - General [facility] Medicine 03/01/17 [employer] Technical Director Relationship Specialty Start Date End Date Vinicius Quintana MD [address] [place] [address] PCP - [facility] Medicine 03/03/23 [employer] Technical Director Relationship Specialty Start Date End Date Vinicius Quintana MD [address] [place] [address] PCP - General Family Medicine 03/03/23 [employer] Technical Director Relationship Specialty Start Date End Date Vinicius Quintana MD [address] [place] [address] PCP - General Family Medicine 03/03/23 [employer] Technical Director Relationship Specialty Start Date End Date Vinicius Quintana MD [address] [place] [address] PCP - General Family Medicine 03/03/23 [employer] Technical Director Relationship Specialty Start Date End Date Vinicius Quintana MD [address] [place] [address] PCP - General Family Medicine 03/03/23 [employer] Technical Director Relationship Specialty Start Date End Date Vinicius Quintana MD [address] [place] [address] PCP - General Family Medicine 03/03/23 [employer] Technical Director Relationship Specialty Start Date End Date Benson Dial MD PCP - General 10/08/12 [employer] Technical Director Relationship Specialty Start Date End Date Vinicius Quintana MD [address] [place] [address] PCP - General Family Medicine 03/01/17 [employer] Technical Director Relationship Specialty Start Date End Date Vinicius Quintana MD [address] [place] [address] PCP - General Family Medicine 03/03/23 [employer] Technical Director Relationship Specialty Start Date End Date Vinicius Quintana MD [address] [place] [address] PCP - General Family Medicine 03/03/23 Reason for Visit (unrecogniz ed section [...] BE BASED ON THE PRIMARY CLINICAL RECORDS. [facility] [employer] [facility]. provides no warranty or guarantee of the accuracy or completeness of information in this document.
[2024-07-09 22:50] LABS: Bilirubin Urine NEGATIVE (NEGATIVE); Blood Urine LARGE (NEGATIVE); Clarity Urine CLEAR (CLEAR); Color Urine LT. YELLOW (YELLOW); Glucose Urine UA NEGATIVE (NEGATIVE); Ketones Urine NEGATIVE (NEGATIVE); Leukocyte Esterase Urine TRACE (NEGATIVE); Nitrite Urine NEGATIVE (NEGATIVE); Protein Urine NEGATIVE (NEG/TRACE); Specific Gravity Urine <=1.005 (1.005-1.025); Urine Microscopic Indicated YES; Urobilinogen Urine 0.2 EU/dL (0.2-1.0)
[2024-07-09 22:54] LABS: Bacteria Urine TRACE #/HPF (NONE SEEN); Cast Seen? NONE SEEN #/LPF (NONE SEEN); Crystals Seen? None Seen #/HPF (None Seen); Mucus Urine NONE SEEN (NONE SEEN); RBC Urine 0-2 #/HPF (0-2); Squamous Epithelial Cell Urine MODERATE #/LPF (NONE/RARE); WBC Urine 0-2 #/HPF (NONE SEEN)
[2024-07-09 23:47] VITALS: BP 112/62; PULSE 71
== END 2024-07-10 03:00 | disposition home or self-care (01) ==
PROVIDERS: Admitting Provider Obstetrics & Gynecology; PCP Family Medicine; Visit Provider Obstetrics & Gynecology
DX: O99.891 Other specified diseases and conditions complicating pregnancy (principal); R10.9 Unspecified abdominal pain; Z3A.35 35 weeks gestation of pregnancy
CPT/HCPCS: 59025; 76818; 81001; G0378; G0379

== ENCOUNTER 2024-07-10 23:57 | Observation (INO) | payer OTHER, SELFPAY ==
--- OUTSIDE RECORDS SUMMARY | 2024-07-11 00:03 | XMS_ITS | CCD ---
Author Organization [facility] Care Team Providers Care Layout Artist Name Role Phone STEPH, DR MURO Admitting [...] STEPH, SHAKIR R Referring Unavailable DEFRANCE, VINICIUS Huntley Primary Care Unavailable STEPHSHAKIR R Referring Unavailable DEFRANCE, VINICIUS Huntley Primary Care Unavailable Jayro ATWOOD, Benson Primary Care Provider Un available MEDARDO, VINICIUS Huntley. Primary Care Unavailable KARENA FLYNN Attending Unavailable NAS THOMAS Admitting Unavaila ble DEFMOY, VINICIUS Huntley Primary Care Unavailable CARROL DAVIS Attending Unavailable DEFRANCE, VINICIUS Huntley Primary Care Unavailable JUAN MIGUEL HOLDEN Admitting Unavailable ADINAJUAN MIGUEL DO Attending Unavailable DEFRANCE, VINICIUS Huntley Primary Care Unavailable SARAH, TIBERIU Admitting Unavailable SARAH TIBERIU Attending Unavailable DEFRANCE, VINICIUS Huntley Primary Care Unavailable CORINA JEAN Attending Unavailable DEFRANCE, VINICIUS Huntley Primary Care Unavailable DEFRANCE, VINICIUS Huntley Primary Care Unavailable SOPHIA GALO Attending Unavailable STEPH, SHAKIR Attending Unavailable STEPH, SHAKIR Attending Unavailable STEPH, SHAKIR Attending Unavailable SOPHIA GALO Attending Unavailable STEPH, SHAKIR Attending Unavailable SOPHIA GALO Attending Unavailable STEPH, SHAKIR Attending Unavailable Medications Current Medications Medication Drug [...] Local Anesthetic Start: 03-10-2023 lidocaine-EPINEPHr ine 1 %-1:[id number] injection 1 mL ferrous sulfate 325 mg [...] [27 weeks gestation of ] Onset: 05-10-2024 4 Episodic Residual codes; unclassified (1 source) Gestation [...] low weight; and growth retardation (1 source) Fwfht-wxy-zkbuq baby; Translations: [[place] small for gestational age, unspecified weight] 05-24-2024 [...] 01-02-2024 Episodic Other aftercare (1 source) Other custodial (current) drug therapy; Translations: [Other meterman (current) drug therapy] Onset: 11-06-2023 Episodic Other [...] OB BPP W NON-STRESS on 07-09-[address] [address] Ultrasound Report Signed Patient: HOMERO DE LEON MR#: [id number] : 1990 Acct:[id number] Age/Sex: 33 / F ADM Date: 07/09/24 Loc: US Attending Dr: Sophia Galo Ordering Physician: Sophia Galo Date of Service: 07/09/24 Procedure(s): US OB BPP w non-stress Accession Number(s): [id number] cc: Sophia Galo; VINICIUS QUINTANA [address] [address] Patient Name: HOMERO DE LEON MRN: [facility]:[id number] date: 1990 Sex: F Assigned Patient Location: US Current Patient Location: Accession/Order Number: [id number] Exam Date: 07/09/2024 10:09 Report Date: 07/09/2024 14:05 At the request of: SOPHIA GALO Procedure: US OB BPP w non-stress EXAMINATION: [...] profile score: 8 Electronically authenticated by: SALLIE MCKEON Date: 07/09/2024 14:05 Dictated By: Sallie Mckeon M.D. Signed By: 07/09/24 1407 DD/ 04 TD/TT: Research Professor Of Biostatistics: [facility] Radiology, Radiologist, MD - 07/09/2024 The [place] [id number] Ultrasound Report Signed Patient: HOMERO DE LEON MR#: [id number] : 1990 Acct:[id number] Age/Sex: 33 / F ADM Date: 07/09/24 Loc: US Attending Dr: Sophia Galo Ordering Physician: Sophia Galo Date of Service: 07/09/24 Procedure(s): US OB BPP w non-stress Accession Number(s): [id number] cc: Sophia Galo; VINICIUS QUINTANA [place] [id number] Patient Name: HOMERO DE LEON MRN: [id number] date: 1990 Sex: F Assigned Patient Location: US Current Patient Location: Accession/Order Number: [id number] Exam Date: 07/09/2024 10:09 Report Date: 07/09/2024 14:05 At the request of: SOPHIA GALO Procedure: US OB BPP w non-stress EXAMINATION: [...] profile score: 8 Electronically authenticated by: SALLIE MCKEON Date: 07/09/2024 14:05 Dictated By: Sallie Mckeon M.D. Signed By: 07/09/241406 DD/ 04 TD/TT: Research Professor Of Biostatistics: [facility] Radiology Study observation (narrative) [facility] US OB BPP W NON-STRESS Ordered By: Radiologist Radiology on 07-09-2024 [facility] Work Phone: US OB BPP W NON-STRESS on 06-23-2024 [place] [id number] Ultrasound Report Signed Patient: HOMERO DE LEON MR#: [id number] : 1990 Acct:[id number] Age/Sex: 33 / F ADM Date: Loc: [facility] 251-[address]: Shakir Choi D.O. Ordering Physician: Shakir Choi D.O. Date of Service: 06/23/24 Procedure(s): US OB BPP w non-stress Accession Number(s): [id number] cc: VINICIUS QUINTANA ; Shakir Choi D.O. The [place] [address] Patient Name: HOMERO DE LEON MRN: [facility]:[id number] date: 1990 Sex: F Assigned Patient Location: [facility] Current Patient Location: [facility] Accession/Order Number: [id number] Exam Date: 06/23/2024 14:01 Report Date: 06/23/2024 [...] Signed By: 06/23/24 1430 DD/ 1427 TD/TT: Research Professor Of Biostatistics: [facility] Radiology, Radiologist, MD - 06/23/2024 [place] [address] Ultrasound Report Signed Patient: HOMERO DE LEON MR#: [id number] : 1990 Acct:[id number] Age/Sex: 33 / F ADM Date: Loc: [facility] 251-[address]: Shakir Choi D.O. Ordering Physician: Shakir Choi D.O. Date of Service: 06/23/24 Procedure(s): US OB BPP w non-stress Accession Number(s): [id number] cc: VINICIUS QUINTANA ; Shakir Choi D.O. [place] [address] Patient Name: HOMERO DE LEON MRN: [facility]:[id number] date: 1990 Sex: F Assigned Patient Location: [facility] Current Patient Location: [facility] Accession/Order Number: [id number] Exam Date: 06/23/2024 14:01 Report Date: 06/23/2024 [...] Signed By: 06/23/24 1430 DD/ 1427 TD/TT: Research Professor Of Biostatistics: [facility] Radiology Study observation (narrative) [facility] US OB BPP W NON-STRESS Ordered By: Radiologist Radiology on 06-23-2024 [facility] Work Phone: Urinalysis macro (dipstick) panel (U)on 06-23-2024 Bilirubin, UA Positive Negative - 4(70) +++ mg/dL [facility] Comment on above: small Blood, UA Positive Negative - 50 Papo/mcL [facility] Comment on above: trace Clarity, UA Clear [facility] Color, UA Sera [facility] Glucose, UA Negative Negative - 1999(110) ++++ mg/dL [facility] Interpretation and review of laboratory results Abnormal [facility] Ketones, UA Positive Negative - 160(16) ++++ mg/dL [facility] Comment on above: 15 Leukocytes, UA Positive Negative - 500+++ Aksah/mcL [facility] Comment on above: large Nitrite, UA Positive Negative - Positive [facility] pH, UA 6.5 5 - 9 [facility] Protein, UA Positive Negative - 2000(20) ++++ mg/dL [facility] Comment on above: 100 Spec Grav, UA 1.025 1 - 1.03 [facility] Urobilinogen, UA 1.0 0.2 - 12 mg/dL [facility] CHLAMYDIA/GC BY PCRon 2024 CHLAMYDIA/GC [...] are dependent on adequate specimen collection. Normal [facility] Comment on above: Performed By: #### 2 106-3 #### [facility] ([id number]) [address] [place] [address] 12265 DRUG SCREEN, URINEon 025 AMPHETAMINE/METHAMP Negative Normal NEG [facility] Comment on above: Result Comment: AMPH /METH screening cut off = 1000 ng/mL Performed By: #### 2 106-3 #### [facility] ([id number]) [address] [place] [address] 26937 BARBITURATES Negative Normal NEG [facility] Comment on above: Result Comment: Allison iturates screening cut off value = 200 ng/mL Performed By: #### 2 106-3 #### [facility] ([id number]) [address] [place] [address] 37301 BENZODIAZEPINES Negative Normal NEG [facility] Comment on above: Result Comment: Dave odiazepines screening cut off value = 200 ng/mL Performed By: #### 2 106-3 #### [facility] ([id number]) [address] [place] [address] 38397 CANNABINOIDS Negative Normal NEG [facility] Comment on above: Result Comment: Eddie abinoids/THC screening cut off value = 50 ng/mL Performed By: #### 2 106-3 #### [facility] ([id number]) [address] [place] [address] 81997 COCAINE METABOLITE Negative Normal NEG [facility] Comment on above: Result Comment: Coca ine screening cut off value = 300 ng/mL Performed By: #### 2 106-3 #### [facility] ([id number]) [address] [place] [address] 56302 ECSTASY Negative Normal NEG [facility] Comment on above: Result Comment: Ecst asy screening cut off value = 500 ng/mL This report is intended for use in clinical monitoring or management of patients. Performed By: #### 2 106-3 #### [facility] ([id number]) [address] [place] [address] 33715 METHADONE Negative Normal [facility] Comment on above: Result Comment: Meth adone screening cut off value = 300 ng/mL. Performed By: #### 2 106-3 #### [facility] ([id number]) [address] [place] [address] 37537 OPIATES Negative Normal NEG [facility] Comment on above: Result Comment: Opia victoria screening cut off value = 300 ng/mL NOTE: This test is used for the detection of codeine, hydrocodone (>1000 ng/mL), morphine and hydromorphone (>900 ng/mL) in urine. Performed By: #### 2 106-3 #### [facility] ([id number]) [address] [place] [address] 45403 OXYCODONE Negative Normal NEG [facility] Comment on above: Result Comment: Oxyc odone screening cut off value = 300 ng/mL NOTE: This test is used for the detection of oxycodone and oxymorphone in urine. Performed By: #### 2 106-3 #### [facility] ([id number]) [address] [place] [address] 69724 PHENCYCLIDINE Negative Normal NEG [facility] Comment on above: Result Comment: Phen cyclidine screening cut off value = 25 ng/mL Performed By: #### 2 106-3 #### [facility] ([id number]) [address] [place] [address] 20168 Fibronectin. Ql (Vag fl d)on 06-22-2024 FIBRONECTIN Positive Abnormal NEG [facility] Comment on above: Performed By: #### 2 106-3 #### [facility] ([id number]) [address] [place] [address] 40851 STREP B SCREEN CULTUREon S. agalactiae Org specific cx Ql (Vag+Rectum) CULTURE RESULTS POSITIVE FOR GROUP B STREPTOCOCCUS BY NUCLEIC ACID AMPLIFICATION : Group B streptococci remain universally susceptible to penicillin, ampicillin, and cefazolin. Resistance to clindamycin can occur. Please contact laboratory within 48 hr if clindamycin susceptibility testing is needed. Normal [facility] Comment on above: Performed By: #### 2 106-3 #### [facility] ([id number]) [address] [place] [address] 61053 URINALYSISon 06-22-2024 Bilirubin Ql (U) Negative Normal NEG [facility] Comment on above: Performed By: #### 2 106-3 #### [facility] ([id number]) [address] [place] [address] 33155 BLOOD/HGB MODERATE Abnormal NEG [facility] Comment on above: Performed By: #### 2 106-3 #### [facility] ([id number]) [address] [place] [address] 96628 Color (U) YELLOW Normal YELLOW [facility] Comment on above: Performed By: #### 2 106-3 #### [facility] ([id number]) [address] [place] [address] 16141 Glucose Ql (U) Negative Normal NEG [facility] Comment on above: Performed By: #### 2 106-3 #### [facility] ([id number]) [address] [place] [address] 16309 Ketones Ql (U) >80 Abnormal NEG [facility] Comment on above: Performed By: #### 2 106-3 #### [facility] ([id number]) [address] [place] [address] 17431 Leukocyte esterase Test strip Ql (U) Large Abnormal NEG [facility] Comment on above: Performed By: #### 2 106-3 #### [facility] ([id number]) [address] [place] [address] 88735 Nitrite Ql (U) Negative Normal NEG [facility] Comment on above: Performed By: #### 2 106-3 #### [facility] ([id number]) [address] [place] [address] [place] [address] pH (U) 7.0 [pH] Normal 5.0-8.5 [facility] Comment on above: Performed By: #### 2 106-3 #### [facility] ([id number]) [address] [place] [address] 92212 Protein Ql (U) >300 Abnormal NEG [facility] Comment on above: Performed By: #### 2 106-3 #### [facility] ([id number]) [address] [place] [address] 68677 R.B.CELLS 6 /hpf High 0-5 [facility] Comment on above: Performed By: #### 2 106-3 #### [facility] ([id number]) [address] [place] [address] 09444 Specific gravity (U) [Rel density] 1.025 Normal 1.003-1.035 [facility] Comment on above: Performed By: #### 2 106-3 #### [facility] ([id number]) [address] [place] [address] [place] [address] SQUAMOUS EPITHELIUM 5 /hpf Normal 0-5 [facility] Comment on above: Performed By: #### 2 106-3 #### [facility] ([id number]) [address] [place] [address] 23786 TURBIDITY CLEAR Normal CLEAR [facility] Comment on above: Performed By: #### 2 106-3 #### [facility] ([id number]) [address] [place] [address] 54906 Urobilinogen Qn (U) 1.0 {Migue'U}/dL Normal <1.1 [facility] Comment on above: Performed By: #### 2 106-3 #### [facility] ([id number]) [address] [place] [address] 34912 W.B.CELLS 11 /hpf High 0-5 [facility] Comment on above: Performed By: #### 2 106-3 #### [facility] ([id number]) [address] [place] [address] 68397 URINE CULTUREon 06-22-2024 Bacteria identified Cx Nom (U) CULTURE RESULTS <10,000 ORGANISMS/ML NORMAL URO GENITAL JOHN PAUL Normal [facility] Comment on above: Performed By: #### 2 106-3 #### [facility] ([id number]) [address] [place] [address] 75548 VAGINITIS PANEL PCRon 2024 VAGINITIS PANEL PCR [...] clinical presentation to determine patient diagnosis. Normal [facility] Comment on above: Performed By: #### 2 106-3 #### [facility] ([id number]) [address] [place] [address], [place] [address] Urinalysis macro (dipstick) panel (U)on 05-24-2024 Bilirubin, UA Negative Negative - 4(70) +++ mg/dL [facility] Blood, UA Positive Negative - 50 Papo/mcL [facility] Clarity, UA Clear [facility] Color, UA Yellow [facility] Glucose, UA Negative Negative - 2000(110) ++++ mg/dL [facility] Interpretation and review of laboratory results Abnormal [facility] Ketones, UA Negative Negative - 160(16) ++++ mg/dL [facility] Leukocytes, UA Negative Negative - 500+++ Akash/mcL [facility] Nitrite, UA Negative Negative - Positive [facility] pH, UA 7 5 - 9 [facility] Protein, UA Trace Negative - 2000(20) ++++ mg/dL [facility] Spec Grav, UA 1.02 1 - 1.03 [facility] Urobilinogen, UA 1.0 0.2 - 12 mg/dL [facility] COMPLETE BLOOD COUNTon 05-13 Erythrocyte distribution width (RBC) [Ratio] 12.9 % Normal 11.5-15.0 [facility] Comment on above: Performed By: #### N UM #### [facility] ([id number]) [address] [place] [address] 48991 Hematocrit (Bld) [Volume fraction] 30.2 % Low 35-47 [facility] Comment on above: Performed By: #### N UM #### [facility] ([id number]) [address] [place] [address] 27383 Hemoglobin (Bld) [Mass/Vol] 10.4 g/dL Low 11.7-15.5 [facility] Comment on above: Performed By: #### N UM #### [facility] ([id number]) [address] [place] [address] 46505 MCH (RBC) [Entitic mass] 31.3 pg Normal 27-34 [facility] Comment on above: Performed By: #### N UM #### [facility] ([id number]) [address] [place] [address] 62936 MCHC (RBC) [Mass/Vol] 34.3 g/dL Normal 32-36 [facility] Comment on above: Performed By: #### N UM #### [facility] ([id number]) [address] [place] [address] 51034 MCV (RBC) [Entitic vol] 92 fL Normal 80-100 [facility] Comment on above: Performed By: #### N UM #### [facility] ([id number]) [address] [place] [address] 76669 Platelet mean volume (Bld) [Entitic vol] 8.7 fL Normal 7-12 [facility] Comment on above: Performed By: #### N UM #### [facility] ([id number]) [address] [place] [address] 39317 Platelets (Bld) [#/Vol] 285 10*3/uL Normal 150-450 [facility] Comment on above: Performed By: #### N UM #### [facility] ([id number]) [address] [place] [address] 22289 RBC COUNT 3.31 X10E12/L Low 3.80-5.20 [facility] Comment on above: Performed By: #### N UM #### [facility] ([id number]) [address] [place] [address] 17040 WBC (Bld) [#/Vol] 13.6 10*3/uL High 4.0-11.0 [facility] Comment on above: Performed By: #### N UM #### [facility] ([id number]) [address] [place] [address] 41891 COMPREHENSIVE METABOLIC PANE Baljit 05-13-2024 Albumin [Mass/Vol] 3.3 g/dL Normal 3.2-5.3 [facility] Comment on above: Performed By: #### N UM #### [facility] ([id number]) [address] [place] [address] 40343 ALP [Catalytic activity/Vol] 52 U/L Normal 39-130 [facility] Comment on above: Performed By: #### N UM #### [facility] ([id number]) [address] [place] [address] 72589 ALT [Catalytic activity/Vol] 10 U/L Normal 0-31 [facility] Comment on above: Performed By: #### N UM #### [facility] ([id number]) [address] [place] [address] 94369 Anion gap [Moles/Vol] 9 mmol/L Normal 5-15 [facility] Comment on above: Performed By: #### N UM #### [facility] ([id number]) [address] [place] [address] 48713 AST [Catalytic activity/Vol] 16 U/L Normal 0-41 [facility] Comment on above: Performed By: #### N UM #### [facility] ([id number]) [address] [place] [address] 48051 Bilirubin [Mass/Vol] 0.8 mg/dL Normal 0.3-1.2 [facility] Comment on above: Performed By: #### N UM #### [facility] ([id number]) [address] [place] [address] 91931 Calcium [Mass/Vol] 9.4 mg/dL Normal 8.5-10.5 [facility] Comment on above: Performed By: #### N UM #### [facility] ([id number]) [address] [place] [address] 81970 Chloride [Moles/Vol] 104 mmol/L Normal 98-109 [facility] Comment on above: Performed By: #### N UM #### [facility] ([id number]) [address] [place] [address] 92864 CO2 [Moles/Vol] 22 mmol/L Normal 22-32 [facility] Comment on above: Performed By: #### N UM #### [facility] ([id number]) [address] [place] [address] 19107 Creatinine [Mass/Vol] 0.63 mg/dL Normal 0.40-1.00 [facility] Comment on above: Result Comment: METH OD TRACEABLE TO IDMS STANDARD Performed By: #### N UM #### [facility] ([id number]) [address] [place] [address] 34830 eGFR (CKD-EPI) NON-RACE DEPENDENT >90 Normal >59 [facility] Comment on above: Result Comment: Reported eGFR is based on the CKD-EPI 2020 equation that does not use a race coefficient. Performed By: #### N UM #### [facility] ([id number]) [address] [place] [address] 31818 Glucose [Mass/Vol] 99 mg/dL Normal 65-[address] [facility] Comment on above: Performed By: #### N UM #### [facility] ([id number]) [address] [place] [address] 76362 Potassium [Moles/Vol] 2.8 mmol/L Low 3.5-5.0 [facility] Comment on above: Performed By: #### N UM #### [facility] ([id number]) [address] [place] [address] 07194 Protein [Mass/Vol] 6.9 g/dL Normal 6.0-8.0 [facility] Comment on above: Performed By: #### N UM #### [facility] ([id number]) [address] [place] [address] 73566 Sodium [Moles/Vol] 135 mmol/L Normal 134-146 [facility] Comment on above: Performed By: #### N UM #### [facility] ([id number]) [address] [place] [address] 32284 Urea nitrogen [Mass/Vol] 7 mg/dL Normal 5-23 [facility] Comment on above: Performed By: #### N UM #### [facility] ([id number]) [address] [place] [address] 58161 Fibronectin. Ql (Vag fl d)on 05-13-2024 FIBRONECTIN Negative Normal NEG [facility] Comment on above: Performed By: #### N UM #### [facility] ([id number]) [address] [place] [address] 98845 STREP B SCREEN CULTUREon S. agalactiae Org specific cx Ql (Vag+Rectum) CULTURE RESULTS NEGATIVE FOR GROUP B STREPTOCOCCUS BY NUCLEIC ACID AMPLIFICATION Normal [facility] Comment on above: Performed By: #### 2 106-3 #### [facility] ([id number]) [address] [place] [address], [place] [address] URINALYSISon 05-13-2024 Bilirubin Ql (U) Negative Normal NEG [facility] Comment on above: Performed By: #### N UM #### [facility] ([id number]) [address] [place] [address], [place] [address] BLOOD/HGB Trace Abnormal NEG [facility] Comment on above: Performed By: #### N UM #### [facility] ([id number]) [address] [place] [address], [place] [address] Color (U) YELLOW Normal YELLOW [facility] Comment on above: Performed By: #### N UM #### [facility] ([id number]) [address] [place] [address], [place] [address] Glucose Ql (U) Negative Normal NEG [facility] Comment on above: Performed By: #### N UM #### [facility] ([id number]) [address] [place] [address], [place] [address] Ketones Ql (U) Negative Normal NEG [facility] Comment on above: Performed By: #### N UM #### [facility] ([id number]) [address] [place] [address], [place] [address] Leukocyte esterase Test strip Ql (U) Large Abnormal NEG [facility] Comment on above: Performed By: #### N UM #### [facility] ([id number]) [address] [place] [address], [place] [address] Nitrite Ql (U) Negative Normal NEG [facility] Comment on above: Performed By: #### N UM #### [facility] ([id number]) [address] [place] [address], [place] [address] pH (U) 7.0 [pH] Normal 5.0-8.5 [facility] Comment on above: Performed By: #### N UM #### [facility] ([id number]) [address] [place] [address] Protein Ql (U) Negative Normal NEG [facility] Comment on above: Performed By: #### N UM #### [facility] ([id number]) [address] [place] [address] [place] [address] R.B.CELLS 0 to 1 Normal 0-5 [facility] Comment on above: Performed By: #### N UM #### [facility] ([id number]) [address] [place] [address] Specific gravity (U) [Rel density] 1.010 Normal 1.003-1.035 [facility] Comment on above: Performed By: #### N UM #### [facility] ([id number]) [address] [place] [address] SQUAMOUS EPITHELIUM 5 /hpf Normal 0-5 [facility] Comment on above: Performed By: #### N UM #### [facility] ([id number]) [address] [place] [address] [place] [address] TURBIDITY CLEAR Normal CLEAR [facility] Comment on above: Performed By: #### N UM #### [facility] ([id number]) [address] [place] [address] [place] [address] Urobilinogen Qn (U) 0.2 {Migue'U}/dL Normal <1.1 [facility] Comment on above: Performed By: #### N UM #### [facility] ([id number]) [address] [place] [address] [place] [address] W.B.CELLS 5 /hpf Normal 0-5 [facility] Comment on above: Performed By: #### N UM #### [facility] ([id number]) [address] [facility] [place] [address] US BIOPHYSICAL PROFILE FET W O NSTon [...] MD on 05/13/2024 8:41 AM Normal [facility] No Panel Informationon 05-11 STAPHYLOCOCCUS [...] [facility] PSEUDOMONAS AERUGINOSA Not detected [facility] SERRATIA MARCESCENS 0 [facility] SERRATIA MARCESCENS Not detected [facility] STAPHYLOCOCCUS AUREUS 0 [facility] STAPHYLOCOCCUS AUREUS Not detected [facility] STREPTOCOCCUS AGALACTIAE (GROUP B STREP) 0 [facility] STREPTOCOCCUS AGALACTIAE (GROUP B STREP) Not detected [facility] STREPTOCOCCUS PYOGENES (GROUP A STREP) 0 [facility] STREPTOCOCCUS PYOGENES (GROUP A STREP) Not detected [facility] Urinalysis macro (dipstick) panel (U)on 05-10-2024 Bilirubin, UA Negative Negative - 4(70) +++ mg/dL [facility] Blood, UA Negative Negative - 50 Papo/mcL [facility] Clarity, UA Clear [facility] Color, UA Dark Sera [facility] Glucose, UA Negative Negative - 1999(110) ++++ mg/dL [facility] Interpretation and review of laboratory results Abnormal [facility] Ketones, UA Negative Negative - 160(16) ++++ mg/dL [facility] Leukocytes, UA Negative Negative - 500+++ Akash/mcL [facility] Nitrite, UA Positive Negative - Positive [facility] pH, UA 7.5 5 - 9 [facility] Protein, UA Positive Negative - 1999(20) ++++ mg/dL [facility] Comment on above: 30mg/dL Spec Grav, UA 1.02 1 - 1.03 [facility] Urobilinogen, UA 1.0 0.2 - 12 mg/dL [facility] Urinalysis macro (dipstick) panel (U)on 04-12-2024 Bilirubin, UA Negative Negative - 4(70) +++ mg/dL [facility] Blood, UA Negative Negative - 50 Papo/mcL [facility] Clarity, UA Clear [facility] Color, UA Yellow [facility] Glucose, UA Negative Negative - 1999(110) ++++ mg/dL [facility] Interpretation and review of laboratory results Abnormal [facility] Ketones, UA Positive Negative - 160(16) ++++ mg/dL [facility] Leukocytes, UA Negative Negative - 500+++ Akash/mcL [facility] Nitrite, UA Negative Negative - Positive [facility] pH, UA 7 5 - 9 [facility] Protein, UA Negative Negative - 1999(20) ++++ mg/dL [facility] Spec Grav, UA 1.02 1 - 1.03 [facility] Urobilinogen, UA 0.2 0.2 - 12 mg/dL [facility] CHLAMYDIA/GC BY PCRon 2023 CHLAMYDIA/GC [...] are dependent on adequate specimen collection. Normal [facility] Comment on above: Performed By: #### N UM #### [facility] ([id number]) [address] [place] [address] HIV 1+2 Ab+HIV1 p24 Ag IA Ql on 04-09-2024 HIV 1 and 2 Ab/Ag Screen Non-Reactive Normal NRCT [facility] Comment on above: Result Comment: [...] diagnoses. Performed By: #### N UM #### [facility] ([id number]) [address] [place] [address] T. pallidum IgG+IgM IA Ql (S )on 04-09-2024 Syphilis Total <0.2 Normal 0.0-0.8 [facility] Comment on above: Result Comment: NON REACTIVE No serologic evidence of infection to Treponema pallidum (syphilis). Repeat testing may be considered in patients with suspected acute or primary syphilis in 2 to 4 weeks. Performed By: #### N UM #### [facility] ([id number]) [address] [place] [address], [place] [address] URINALYSISon 04-09-2024 Bilirubin Ql (U) Negative Normal NEG [facility] Comment on above: Performed By: #### N UM #### [facility] ([id number]) [address] [place] [address], [place] [address] BLOOD/HGB Negative Normal NEG [facility] Comment on above: Performed By: #### N UM #### [facility] ([id number]) [address] [place] [address], [place] [address] Color (U) YELLOW Normal YELLOW [facility] Comment on above: Performed By: #### N UM #### [facility] ([id number]) [address] [place] [address] [place] [address] Glucose Ql (U) Negative Normal NEG [facility] Comment on above: Performed By: #### N UM #### [facility] ([id number]) [address] [place] [address], [place] [address] Ketones Ql (U) Trace Abnormal NEG [facility] Comment on above: Performed By: #### N UM #### [facility] ([id number]) [address] [place] [address], [place] [address] Leukocyte esterase Test strip Ql (U) Trace Abnormal NEG [facility] Comment on above: Performed By: #### N UM #### [facility] ([id number]) [address] [place] [address], [place] [address] Nitrite Ql (U) Negative Normal NEG [facility] Comment on above: Performed By: #### N UM #### [facility] ([id number]) [address] [place] [address], [place] [address] pH (U) 7.0 [pH] Normal 5.0-8.5 [facility] Comment on above: Performed By: #### N UM #### [facility] ([id number]) [address] [place] [address] Protein Ql (U) Trace Abnormal NEG [facility] Comment on above: Performed By: #### N UM #### [facility] ([id number]) [address] [place] [address] R.B.CELLS 2 /hpf Normal 0-5 [facility] Comment on above: Performed By: #### N UM #### [facility] ([id number]) [address] [place] [address] Specific gravity (U) [Rel density] 1.025 Normal 1.003-1.035 [facility] Comment on above: Performed By: #### N UM #### [facility] ([id number]) [address] [place] [address] SQUAMOUS EPITHELIUM 4 /hpf Normal 0-5 [facility] Comment on above: Performed By: #### N UM #### [facility] ([id number]) [address] [place] [address] TURBIDITY CLEAR Normal CLEAR [facility] Comment on above: Performed By: #### N UM #### [facility] ([id number]) [address] [place] [address] Urobilinogen Qn (U) 0.2 {Migue'U}/dL Normal <1.1 [facility] Comment on above: Performed By: #### N UM #### [facility] ([id number]) [address] [place] [address] W.B.CELLS 3 /hpf Normal 0-5 [facility] Comment on above: Performed By: #### N UM #### [facility] ([id number]) [address] [place] [address] No Panel Informationon 11-12 -2024 Interpretation and review of laboratory results Abnormal [facility] UA (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 YELLOW YELLOW [facility] GLUCOSE URINE UA Negative NEGATIVE mg/dL [facility] Ketones Ql (U) Negative NEGATIVE mg/dL [facility] Leukocyte esterase Test strip Ql (U) SMALL Abnormal NEGATIVE [facility] NITRITE URINE Negative NEGATIVE [facility] pH (U) 7.0 [pH] 5.0 - 9.0 [facility] PROTEIN URINE Negative NEG/TRACE mg/dL [facility] SPECIFIC GRAVITY URINE 1.010 1.005 - 1.025 [facility] URINE MICROSCOPIC INDICATED YES [facility] UROBILINOGEN URINE 1.0 EU/dL 0.2 - 1.0 EU/dL [facility] URINE MICROSCOPIC ONLYon 04-06-2024 BACTERIA URINE TRACE Abnormal NONE SEEN #/HPF [facility] CAST SEEN? NONE SEEN NONE SEEN #/LPF [facility] CRYSTALS SEEN? None Seen None Seen #/HPF [facility] MUCUS URINE NONE SEEN NONE SEEN [facility] SQUAMOUS EPITHELIAL CELL URINE FEW Abnormal NONE/RARE #/LPF [facility] RBC 0-2 [facility] WBC 2-5 Abnormal NONE SEEN #/HPF [facility] URINE CULTURE INDICATED YES [facility] Urinalysis macro (dipstick) panel (U)on 03-15-2024 Bilirubin, UA Negative Negative - 4(70) +++ mg/dL [facility] Blood, UA Negative Negative - 50 Papo/mcL [facility] Clarity, UA Clear [facility] Color, UA Yellow [facility] Glucose, UA Negative Negative - 1999(110) ++++ mg/dL [facility] Interpretation and review of laboratory results Abnormal [facility] Ketones, UA Positive Negative - 160(16) ++++ mg/dL [facility] Leukocytes, UA Positive Negative - 500+++ Akash/mcL [facility] Nitrite, UA Positive Negative - Positive [facility] pH, UA 7 5 - 9 [facility] Protein, UA Positive Negative - 1999(20) ++++ mg/dL [facility] Spec Grav, UA 1.02 1 - 1.03 [facility] Urobilinogen, UA 1.0 0.2 - 12 mg/dL [facility] CHLAMYDIA/GC BY PCRon 2023 CHLAMYDIA/GC [...] are dependent on adequate specimen collection. Normal [facility] Comment on above: Performed By: #### C GS #### [facility] ([id number]) [address] [place] [address] [facility] ([id number]) [address], [address] [place] [address] HCG ( test) Ql (U)o n 02-26-2024 Beta HCG ( test) Ql (U) Positive Abnormal NEG [facility] Comment on above: Performed By: #### 2 [id number] #### [facility] ([id number]) [address] [place] [address] URINE CULTUREon 02-26-2024 Bacteria identified Cx Nom [...] F TRIMETH/SULFAMETHOXA ZOLE S <=1/19 F Susceptible [facility] Comment on above: Performed By: #### N UM #### [facility] ([id number]) [address] [place] [address] URN MACROSCOPIC NURon 2023 BILIRUBIN ALEKSANDRA Negative Normal NEG [facility] Comment on above: Performed By: #### N UM #### [facility] ([id number]) [address] [place] [address] [place] [address] BLOOD/HGB ALEKSANDRA Trace Abnormal NEG [facility] Comment on above: Performed By: #### N UM #### [facility] ([id number]) [address] [place] [address] [place] [address] GLUCOSE ALEKSANDRA Negative Normal NEG [facility] Comment on above: Performed By: #### N UM #### [facility] ([id number]) [address] [place] [address] [place] [address] KETONES ALKESANDRA 80 mg/dL Abnormal NEG [facility] Comment on above: Performed By: #### N UM #### [facility] ([id number]) [address] [place] [address] [place] [address] LEUKOCYTE ESTERASE ALEKSANDRA Negative Normal NEG Pr [facility] Comment on above: Performed By: #### N UM #### [facility] ([id number]) [address] [place] [address] [place] [address] NITRITE ALEKSANDRA Negative Normal NEG [facility] Comment on above: Performed By: #### N UM #### [facility] ([id number]) [address] [place] [address] [place] [address] PH ALEKSANDRA 6.0 Normal 5.0-8.5 [facility] Comment on above: Performed By: #### N UM #### [facility] ([id number]) [address] [place] [address] [place] [address] PROTEIN ALEKSANDRA >=300 Abnormal NEG [facility] Comment on above: Performed By: #### N UM #### [facility] ([id number]) [address] [place] [address] SPECIFIC GRAVITY ALEKSANDRA >=1.030 Normal 1.003-1.035 [facility] Comment on above: Performed By: #### N UM #### [facility] ([id number]) [address] [place] [address] UROBILINOGEN ALEKSANDRA 1.0 eu/dL Normal <1.1 [facility] Comment on above: Performed By: #### N UM #### [facility] ([id number]) [address] [place] [address] VAGINITIS PANEL PCRon 2023 VAGINITIS PANEL PCR [...] clinical presentation to determine patient diagnosis. Normal [facility] Comment on above: Performed By: #### N UM #### [facility] ([id number]) [address] [place] [address] URETHRITIS/DISCHARGE PLUS VA GINITIS (HTRX)on 01-31-2024 ATOPOBIUM VAGINAE 20.240 Abnormal [facility] ATOPOBIUM VAGINAE Detected Abnormal [facility] BVAB 2,3 (BACTERIAL VAGINOSIS ASSOCIATED BACTERIA 2, 3); MOBILUNCUS SPP 14.521 Abnormal [facility] BVAB 2,3 (BACTERIAL VAGINOSIS ASSOCIATED BACTERIA 2, 3); MOBILUNCUS SPP Detected Abnormal [facility] OZZIE ALBICANS, PARAPSILOSIS, TROPICALIS 0.000 [facility] OZZIE ALBICANS, PARAPSILOSIS, TROPICALIS Not detected [facility] OZZIE GLABRATA 0.000 [facility] OZZIE GLABRATA Not detected [facility] OZZIE KRUSEI 0.000 [facility] OZZIE KRUSEI Not detected [facility] CHLAMYDIA TRACHOMATIS 0.000 [facility] CHLAMYDIA TRACHOMATIS Not detected N [facility] ERMB, C; MEFA 22.470 Abnormal [facility] ERMB, C; MEFA Detected Abnormal [facility] GARDNERELLA VAGINALIS 25.182 Abnormal [facility] GARDNERELLA VAGINALIS Detected Abnormal [facility] Interpretation and review of laboratory results Abnormal [facility] MEGASPHAERA (TYPES 1, 2) 21.331 Abnormal [facility] MEGASPHAERA (TYPES 1, 2) Detected Abnormal [facility] MYCOPLASMA GENITALIUM 0.000 [facility] MYCOPLASMA GENITALIUM Not detected N [facility] NEISSERIA GONORRHOEAE 0.000 [facility] NEISSERIA GONORRHOEAE Not detected N [facility] TET B, TET M 22.938 Abnormal [facility] TET B, TET M Detected Abnormal [facility] TRICHOMONAS VAGINALIS 0.000 [facility] TRICHOMONAS VAGINALIS Not detected N [facility] Urinalysis macro (dipstick) panel (U)on 01-29-2024 Bilirubin, UA Positive Negative - 4(70) +++ mg/dL [facility] Comment on above: small Blood, UA Negative Negative - 50 Papo/mcL [facility] Clarity, UA Cloudy [facility] Color, UA Yellow [facility] Glucose, UA Negative Negative - 1999(110) ++++ mg/dL [facility] Interpretation and review of laboratory results Abnormal [facility] Ketones, UA Positive Negative - 160(16) ++++ mg/dL [facility] Comment on above: trace Leukocytes, UA Negative Negative - 500+++ Akash/mcL [facility] Nitrite, UA Positive Negative - Positive [facility] pH, UA 6.0 5 - 9 [facility] Protein, UA Trace Negative - 1999(20) ++++ mg/dL [facility] Spec Grav, UA 1.030 1 - 1.03 [facility] Urobilinogen, UA 4.0 0.2 - 12 mg/dL [facility] ALL CBC WITH AUTO DIFFon BASOPHILS ABSOLUTE AUTO 0.0 [facility] Basophils/100 WBC (Bld) 0.3 % 0.2 - 2.0 % [facility] Eosinophils/100 WBC (Bld) 2.3 % 0.9 - 7.0 % [facility] Erythrocyte distribution width (RBC) [Ratio] 12.7 % 11.0 - 15.0 % [facility] Hematocrit (Bld) [Volume fraction] 31.8 % Low 36.0 - 48.0 % [facility] Hemoglobin (Bld) [Mass/Vol] 10.3 g/dL Low 12.0 - 16.0 g/dL [facility] IMMATURE GRANULOCYTES ABS AUTO 0.05 High [facility] Immature granulocytes/100 WBC (Bld) 0.4 % 0.0 - 0.5 % [facility] Interpretation and review of laboratory results Abnormal [facility] LYMPHOCYTES ABSOLUTE AUTO 2.4 [facility] Lymphocytes/100 WBC (Bld) 21.2 % 20.5 - 60.0 % [facility] MCH (RBC) [Entitic mass] 29.9 pg 26.7 - 34.0 pg [facility] MCHC (RBC) [Mass/Vol] 32.4 g/dL 29.9 - 35.2 g/dL [facility] MCV (RBC) [Entitic vol] 92.2 fL 81.0 - 99.0 fL [facility] MONOCYTES ABSOLUTE AUTO 0.8 [facility] Monocytes/100 WBC (Bld) 6.9 % 1.7 - 12.0 % [facility] NEUTROPHILS ABSOLUTE AUTO 8.0 High [facility] Neutrophils/100 WBC (Bld) 68.9 % 43.0 - 75.0 % [facility] Platelet mean volume (Bld) [Entitic vol] 10.9 fL 9.5 - 13.5 fL [facility] TBH EO # 0.3 [facility] TBH PLT 385 [facility] TB RBC 3.45 Low [facility] TBH WBC 11.5 High [facility] ALL TYPE AND SCREENon 2023 ABO and Rh group Nom (Bld) Blood group B Rh(D) positive [facility] MLR HEMOGLOBIN A1Con 024 Glucose [Mass/Vol] 82 mg/dL [facility] HbA1c (Bld) [Mass fraction] 4.5 % 4.5 - 6.2 % [facility] Comment on above: ADA RECOMMENDED LIMI T 4.0 - 6.0 ADA THERAPEUTIC TARGET < 7.0 ACTION SUGGESTED > 7.0 [facility] CBC AND AUTO DIFFon 12-20-19 24 ABSOLUTE BASOPHIL 0.1 X10E9/L Normal 0.0-0.2 [facility] Comment on above: Performed By: #### Marco Antonio ATKINSON CMP, #### [facility] ([id number]) [address] [place] [address] ABSOLUTE NEUTROPHIL 11.7 X10E9/L High 1.5-6.6 [facility] Comment on above: Performed By: #### Marco Antonio ATKINSON CMP, #### [facility] ([id number]) [address] [place] [address] 92163 Basophils/100 WBC (Bld) 0.4 % Normal [facility] Comment on above: Performed By: #### Marco Antonio ATKINSON CMP, #### [facility] ([id number]) [address] [place] [address]6907 Eosinophils (Bld) [#/Vol] 0.3 10*3/uL Normal 0.0-0.4 [facility] Comment on above: Performed By: #### Marco Antonio ATKINSON CMP, #### [facility] ([id number]) [address] [place] [address] 24543 Eosinophils/100 WBC (Bld) 1.6 % Normal [facility] Comment on above: Performed By: #### Marco Antonio ATKINSON CMP, #### [facility] ([id number]) [address] [place] [address]32 Erythrocyte distribution width (RBC) [Ratio] 13.0 % Normal 11.5-15.0 [facility] Comment on above: Performed By: #### Marco Antonio ATKINSON CMP, #### [facility] ([id number]) [address] [place] [address] 26041 Hematocrit (Bld) [Volume fraction] 33.1 % Low 35-47 [facility] Comment on above: Performed By: #### C CH[place] CMP, #### [facility] ([id number]) [address] [place] [address] 487[address] Hemoglobin (Bld) [Mass/Vol] 11.1 g/dL Low 11.7-15.5 [facility] Comment on above: Performed By: #### Marco Antonio ATKINSON CMP, #### [facility] ([id number]) [address] [place] [address] Lymphocytes (Bld) [#/Vol] 2.6 10*3/uL Normal 1.0-3.5 [facility] Comment on above: Performed By: #### Marco Antonio ATKINSON [facility], #### [facility] ([id number]) [address] [place] [address]98[address] Lymphocytes/100 WBC (Bld) 16.5 % Normal [facility] Comment on above: Performed By: #### Marco Antonio ATKINSON CMP, #### [facility] ([id number]) [address] [place] [address]96 MCH (RBC) [Entitic mass] 30.3 pg Normal 27-34 [facility] Comment on above: Performed By: #### Marco Antonio ATKINSON, CMP, #### [facility] ([id number]) [address] [place] [address] 19179 MCHC (RBC) [Mass/Vol] 33.6 g/dL Normal 32-36 [facility] Comment on above: Performed By: #### Marco Antonio ATKINSON CMP, #### [facility] ([id number]) [address] [place] [address] 40568 MCV (RBC) [Entitic vol] 90 fL Normal 80-100 [facility] Comment on above: Performed By: #### Marco Antonio ATKINSON CMP, #### [facility] ([id number]) [address] [place] [address] 19228 Monocytes (Bld) [#/Vol] 1.2 10*3/uL High 0-0.9 [facility] Comment on above: Performed By: #### Marco Antonio ATKINSON CMP, #### [facility] ([id number]) [address] [place] [address] 60631 Monocytes/100 WBC (Bld) 7.5 % Normal [facility] Comment on above: Performed By: #### Marco Antonio ATKINSON CMP, #### [facility] ([id number]) [address] [place] [address] 96803 Neutrophils/100 WBC (Bld) 74.0 % Normal [facility] Comment on above: Performed By: #### Marco Antonio ATKINSON [facility], #### [facility] ([id number]) [address] [place] [address] 09746 Platelet mean volume (Bld) [Entitic vol] 9.1 fL Normal 7-12 [facility] Comment on above: Performed By: #### Marco Antonio ATKINSON CMP, #### [facility] ([id number]) [address] [place] [address] 45208 Platelets (Bld) [#/Vol] 385 10*3/uL Normal 150-450 [facility] Comment on above: Performed By: #### Marco Antonio ATKINSON CMP, #### [facility] ([id number]) [address] [place] [address] 15536 RBC COUNT 3.67 X10E12/L Low 3.80-5.20 [facility] Comment on above: Performed By: #### C BCA, CMP, #### [facility] ([id number]) [address] [place] [address] 94207 WBC (Bld) [#/Vol] 15.8 10*3/uL High 4.0-11.0 [facility] Comment on above: Performed By: #### C BCA, CMP, #### [facility] ([id number]) [address] [place] [address] 18294 COMPREHENSIVE METABOLIC PANE Baljit 12-20-2023 Albumin [Mass/Vol] 4.2 g/dL Normal 3.2-5.3 [facility] Comment on above: Performed By: #### C BCA, CMP, #### [facility] ([id number]) [address] [place] [address] 66902 ALP [Catalytic activity/Vol] 39 U/L Normal 39-130 [facility] Comment on above: Performed By: #### C BCA, CMP, #### [facility] ([id number]) [address] [place] [address] 90328 ALT [Catalytic activity/Vol] 14 U/L Normal 0-31 [facility] Comment on above: Performed By: #### C BCA, CMP, #### [facility] ([id number]) [address] [place] [address] 59501 Anion gap [Moles/Vol] 6 mmol/L Normal 5-15 [facility] Comment on above: Performed By: #### C BCA, CMP, #### [facility] ([id number]) [address] [place] [address] 51671 AST [Catalytic activity/Vol] 20 U/L Normal 0-41 [facility] Comment on above: Performed By: #### C BCA, CMP, #### [facility] ([id number]) [address] [place] [address] 64203 Bilirubin [Mass/Vol] 0.6 mg/dL Normal 0.3-1.2 [facility] Comment on above: Performed By: #### C CEE ATKINSON, #### [facility] ([id number]) [address] [place] [address] 85143 Calcium [Mass/Vol] 8.9 mg/dL Normal 8.5-10.5 [facility] Comment on above: Performed By: #### C CEE ATKINSON, #### [facility] ([id number]) [address] [place] [address] 29446 Chloride [Moles/Vol] 104 mmol/L Normal 98-109 [facility] Comment on above: Performed By: #### C CEE ATKINSON, #### [facility] ([id number]) [address] [place] [address] 83292 CO2 [Moles/Vol] 22 mmol/L Normal 22-32 [facility] Comment on above: Performed By: #### C ECE ATKINSON, #### [facility] ([id number]) [address] [place] [address] 19127 Creatinine [Mass/Vol] 0.56 mg/dL Normal 0.40-1.00 [facility] Comment on above: Result Comment: METH OD TRACEABLE TO IDMS STANDARD Performed By: #### C CEE ATKINSON, #### [facility] ([id number]) [address] [place] [address] 43891 eGFR (CKD-EPI) NON-RACE DEPENDENT >90 Normal >59 [facility] Comment on above: Result Comment: Reported eGFR is based on the CKD-EPI 2020 equation that does not use a race coefficient. Performed By: #### C CEE ATKINSON, #### [facility] ([id number]) [address] [place] [address] 46606 Glucose [Mass/Vol] 112 mg/dL High 65-99 [facility] Comment on above: Performed By: #### C BCA, CMP, #### [facility] ([id number]) [address] [place] [address] 33624 Potassium [Moles/Vol] 3.2 mmol/L Low 3.5-5.0 [facility] Comment on above: Performed By: #### C CHINA, CMP, #### [facility] ([id number]) [address] [place] [address] 34212 Protein [Mass/Vol] 7.6 g/dL Normal 6.0-8.0 [facility] Comment on above: Performed By: #### C CHINA, CMP, #### [facility] ([id number]) [address] [place] [address] 20007 Sodium [Moles/Vol] 132 mmol/L Low 134-146 [facility] Comment on above: Performed By: #### C BCA, CMP, #### [facility] ([id number]) [address] [place] [address] 44683 Urea nitrogen [Mass/Vol] 9 mg/dL Normal 5-23 [facility] Comment on above: Performed By: #### C BCA, CMP, #### [facility] ([id number]) [address] [place] [address] 31959 HCG ( test) Ql (U)o n 12-20-2023 Beta HCG ( test) Ql (U) Positive Abnormal NEG [facility] Comment on above: Performed By: #### 2 106-3 #### [facility] ([id number]) [address] [place] [address] [place] [address] HCG.beta subunit IA 3rd IS Q non 12-20-2023 [place] [address] m[IU]/mL Normal P [facility] Comment on above: Result Comment: NEW [...] nontrophoblastic neoplasms. Performed By: #### C BCA, [facility], 76834-3 #### [facility] ([id number]) [address] [place] [address] 02981 URINE CULTUREon 12-20-2023 Bacteria identified Cx Nom (U) CULTURE RESULTS NO GROWTH AT <1000 CFU/mL Normal [facility] Comment on above: Performed By: #### 6 30-4 #### [facility] ([id number]) [address] [place] [address], [address] [place] [address] URN MACROSCOPIC NURon 2023 BILIRUBIN ALEKSANDRA Negative Normal NEG [facility] Comment on above: Performed By: #### N UM #### [facility] ([id number]) [address] [place] [address] 91646 BLOOD/HGB ALEKSANDRA Trace Abnormal NEG [facility] Comment on above: Performed By: #### N UM #### [facility] ([id number]) [address] [place] [address] 84317 GLUCOSE ALEKSANDRA Negative Normal NEG [facility] Comment on above: Performed By: #### N UM #### [facility] ([id number]) [address] [place] [address] 39192 KETONES ALEKSANDRA Negative Normal NEG [facility] Comment on above: Performed By: #### N UM #### [facility] ([id number]) [address] [place] [address] 45387 LEUKOCYTE ESTERASE ALEKSANDRA Trace Abnormal NEG Pr [facility] Comment on above: Performed By: #### N UM #### [facility] ([id number]) [address] [place] [address] 14267 NITRITE ALEKSANDRA Negative Normal NEG [facility] Comment on above: Performed By: #### N UM #### [facility] ([id number]) [address] [place] [address] 75403 PH ALEKSANDRA 6.5 Normal 5.0-8.5 [facility] Comment on above: Performed By: #### N UM #### [facility] ([id number]) [address] [place] [address] 69919 PROTEIN ALEKSANDRA Negative Normal NEG [facility] Comment on above: Performed By: #### N UM #### [facility] ([id number]) [address] [place] [address] 10310 SPECIFIC GRAVITY ALEKSANDRA 1.010 Normal 1.003-1.035 [facility] Comment on above: Performed By: #### N UM #### [facility] ([id number]) [address] [place] [address] 98622 UROBILINOGEN ALEKSANDRA 1.0 eu/dL Normal <1.1 [facility] Comment on above: Performed By: #### N UM #### [facility] ([id number]) [address] [place] [address] 29230 Hgb Electrophoresison 2023 Hgb Elect.Interp. Normal Hb electrophoretic pattern. HbA = 97.2% HbA2 = 2.8% Normal Values Normal [facility] Comment on above: Result Comment: (Hem oglobin A= 96.8 to 97.8% Hemoglobin A2= 2.2 to 3.2%) Performed By: #### F EBC, HGBE, B12FOL #### [facility] [employer] [address] [place] [address] 16308 Furniture Delivery Driver: Severino Jacobson MD #### FINNCTADELINE, FERI #### [facility] [address] [place] [address] Furniture Delivery Driver: Lukasz Puga MD Pathologist Review: ELECTRONICALLY SIGNED. AUTUMN MENDOZA M.D. [facility] Comment on above: Performed By: #### F EBC, HGBE, B12FOL #### [address] [address] Furniture Delivery Driver: Severino Jacobson MD #### ADELINE [place], FERI #### [facility] [address] [place] [address] 63380 Furniture Delivery Driver: Lukasz Puga MD Smear to Pathologiston 12-07 Smear to Pathologist ELECTRONICALLY SIGNED. MITA REGAN M.D. [facility] Comment on above: Performed By: #### P ATH #### [address] [address] Furniture Delivery Driver: Severino Jacobson MD B12/Folate Panelon Cobalamin (Vitamin B12) [Mass/Vol] 717 pg/mL Normal 232-1245 [facility] Comment on above: Performed By: #### F EBC, HGBE, B12FOL #### [facility] [employer] [address] [place] [address] 23225 Furniture Delivery Driver: Severino Jacobson MD #### RETCT, CDP, FERI #### [facility] [place] [address] Furniture Delivery Driver: Lukasz Puga MD Folic Acid 12.2 ng/mL Normal 4.8-24.2 [facility] Comment on above: Performed By: #### F EBC, HGBE, B12FOL #### [address] [address] Furniture Delivery Driver: Severino Jacobson MD #### FINNCT, CDP, FERI #### [facility] [address] [place] [address] 14732 Furniture Delivery Driver: Lukasz Puga MD CBC with Diffon 12-05-2023 Abs. Atypical Lymphs 0.14 k/uL Normal [facility] Comment on above: Performed By: #### F EBC, HGBE, B12FOL #### [address] [address] Furniture Delivery Driver: Severino Jacobson MD #### VALENCIA, CDP, FERI #### [facility] [address] [place] [address] 26911 Furniture Delivery Driver: Lukasz Puga MD Abs. Basophil 0.07 k/uL Normal 0.0-0.2 [facility] Comment on above: Performed By: #### F EBC, HGBE, B12FOL #### [address] [address] Furniture Delivery Driver: Severino Jacobson MD #### RETCT, CDP, FERI #### [facility] [address] [place] [address] 18867 Furniture Delivery Driver: Lukasz Puga MD Abs.Imm.Granulocyte 0.00 k/uL Normal 0.00-0.30 [facility] Comment on above: Performed By: #### F EBC, HGBE, B12FOL #### [address] [address] Furniture Delivery Driver: Severino Jacobson MD #### RETCT, CDP, FERI #### [facility] [address] [place] [address] 81971 Furniture Delivery Driver: Lukasz Puga MD Abs.Neutrophil (Seg) 2.80 k/uL Normal 1.8-7.7 [facility] Comment on above: Performed By: #### F EBC, HGBE, B12FOL #### [address] [address] Furniture Delivery Driver: Severino Jacobson MD #### RETCT, CDP, FERI #### [facility] [address] [place] [address] 31348 Furniture Delivery Driver: Lukasz Puga MD Atypical Lymphs 2 % Normal [facility] Comment on above: Performed By: #### F EBC, HGBE, B12FOL #### [address] [address] Furniture Delivery Driver: Severino Jacobson MD #### RETCT, CDP, FERI #### [facility] [address] [place] [address] 68023 Furniture Delivery Driver: Lukasz Puga MD Basophils/100 WBC (Bld) 1 % Normal [facility] Comment on above: Performed By: #### F EBC, HGBE, B12FOL #### [address] [address] Furniture Delivery Driver: Severino Jacobson MD #### RETCT, CDP, FERI #### [facility] [address] [place] [address] 60602 Furniture Delivery Driver: Lukasz Puga MD Eosinophils (Bld) [#/Vol] 0.07 10*3/uL Normal 0.0-0.4 [facility] Comment on above: Performed By: #### F EBC, HGBE, B12FOL #### [address] [address] Furniture Delivery Driver: Severino Jacobson MD #### RETCT, CDP, FERI #### [facility] [address] [place] [address] 80012 Furniture Delivery Driver: Lukasz Puga MD Eosinophils/100 WBC (Bld) 1 % Normal 1-4 [facility] Comment on above: Performed By: #### F EBC, HGBE, B12FOL #### [address] [address] Furniture Delivery Driver: Severino Jacobson MD #### FINNCT, CDP, FERI #### [facility] [address] [place] [address] 16791 Furniture Delivery Driver: Lukasz Puga MD Immature granulocytes/100 WBC (Bld) 0 % Normal 0 [facility] Comment on above: Performed By: #### F EBC, HGBE, B12FOL #### [address] [address] Furniture Delivery Driver: Severino Jacobson MD #### RETCT, CDP, FERI #### [facility] [address] [place] [address] 35705 Furniture Delivery Driver: Lukasz Puga MD Lymphocytes (Bld) [#/Vol] 3.29 10*3/uL Normal 1.0-4.8 [facility] Comment on above: Performed By: #### F EBC, HGBE, B12FOL #### [address] [address] Furniture Delivery Driver: Severino Jacobson MD #### RETCT, CDP, FERI #### [facility] [address] [place] [address] Furniture Delivery Driver: Lukasz Puga MD Lymphocytes/100 WBC (Bld) 47 % High 24-44 [facility] Comment on above: Performed By: #### F EBC, HGBE, B12FOL #### [address] [address] Furniture Delivery Driver: Severino Jacobson MD #### RETCT, CDP, FERI #### [facility] [place] [address] Furniture Delivery Driver: Lukasz Puga MD Monocytes (Bld) [#/Vol] 0.63 10*3/uL Normal 0.2-0.8 [facility] Comment on above: Performed By: #### F EBC, HGBE, B12FOL #### [address] [address] Furniture Delivery Driver: Severino Jacobson MD #### RETCT, CDP, FERI #### [facility] [address] [place] [address]1993 Furniture Delivery Driver: Lukasz Puga MD Monocytes/100 WBC (Bld) 9 % High 1-7 [facility] Comment on above: Performed By: #### F EBC, HGBE, B12FOL #### [address] [address] Furniture Delivery Driver: Severino Jacobson MD #### RETCT, CDP, FERI #### [facility] [address] [place] [address] 6[address] Furniture Delivery Driver: Lukasz Puga MD Neutrophil (Seg) 40 % Normal 36-66 [facility] Comment on above: Performed By: #### F EBC, HGBE, B12FOL #### [address] [address] Furniture Delivery Driver: Severino Jacobson MD #### RETCT, CDP, FERI #### [facility] [address] [place] [address] 69802 Furniture Delivery Driver: Lukasz Puga MD Erythrocyte distribution width (RBC) [Ratio] 12.6 % Normal 11.8-14.4 [facility] Comment on above: Performed By: #### F EBC, HGBE, B12FOL #### [address] [address] Furniture Delivery Driver: Severino Jacobson MD #### RETCT, CDP, FERI #### [facility] [address] [place] [address] 56496 Furniture Delivery Driver: Lukasz Puga MD Hematocrit (Bld) [Volume fraction] 31.0 % Low 36.3-47.1 [facility] Comment on above: Performed By: #### F EBC, HGBE, B12FOL #### [address] [address] Furniture Delivery Driver: Severino Jacobson MD #### RETCT, CDP, FERI #### [facility] [address] [place] [address] Furniture Delivery Driver: Lukasz Puga MD Hemoglobin (Bld) [Mass/Vol] 9.9 g/dL Low 11.9-15.1 [facility] Comment on above: Performed By: #### F EBC, HGBE, B12FOL #### [address] [address] Furniture Delivery Driver: Severino Jacobson MD #### RETCT, CDP, FERI #### [facility] [address] [place] [address] Furniture Delivery Driver: Lukasz Puga MD MCH (RBC) [Entitic mass] 29.8 pg Normal 25.2-33.5 [facility] Comment on above: Performed By: #### F EBC, HGBE, B12FOL #### [address] [address] Furniture Delivery Driver: Severino Jacobson MD #### RETCT, CDP, FERI #### [facility] [address] [place] [address] 601[address] Furniture Delivery Driver: Lukasz Puga MD MCHC (RBC) [Mass/Vol] 31.9 g/dL Normal 28.4-34.8 [facility] Comment on above: Performed By: #### F EBC, HGBE, B12FOL #### [address] [address] Furniture Delivery Driver: Severino Jacobson MD #### RETCT, CDP, FERI #### [facility] [address] [place] [address] Furniture Delivery Driver: Lukasz Puga MD MCV (RBC) [Entitic vol] 93.4 fL Normal 82.6-102.9 [facility] Comment on above: Performed By: #### F EBC, HGBE, B12FOL #### [address] [address] Furniture Delivery Driver: Severino Jacobson MD #### RETCT, CDP, FERI #### [facility] [address] [place] [address]196 Furniture Delivery Driver: Lukasz Puga MD NRBC Automated 0.0 per 100 WBC Normal 0.0 [facility] Comment on above: Performed By: #### F EBC, HGBE, B12FOL #### [address] [address] Furniture Delivery Driver: Severino Jacobson MD #### RETCT, CDP, FERI #### [facility] [address] [place] [address] Furniture Delivery Driver: Lukasz Puga MD Platelet mean volume (Bld) [Entitic vol] 9.9 fL Normal 8.1-13.5 [facility] Comment on above: Performed By: #### F EBC, HGBE, B12FOL #### [address] [address] Furniture Delivery Driver: Severino Jacobson MD #### RETCT, CDP, FERI #### [facility] [place] [address] Furniture Delivery Driver: Lukasz Puga MD Platelets (Bld) [#/Vol] 296 10*3/uL Normal 138-453 [facility] Comment on above: Performed By: #### F EBC, HGBE, B12FOL #### [address] [address] Furniture Delivery Driver: Severino Jacobson MD #### RETCT, CDP, FERI #### [facility] [address] [place] [address] Furniture Delivery Driver: Lukasz Puga MD RBC (Bld) [#/Vol] 3.32 10*6/uL Low 3.95-5.11 [facility] Comment on above: Performed By: #### F EBC, HGBE, B12FOL #### [address] [address] Furniture Delivery Driver: Severino Jacobson MD #### RETCT, CDP, FERI #### [facility] [address] [place] [address] Furniture Delivery Driver: Lukasz Puga MD WBC (Bld) [#/Vol] 7.0 10*3/uL Normal 3.5-11.3 [facility] Comment on above: Performed By: #### F EBC, HGBE, B12FOL #### [address] [address] Furniture Delivery Driver: Severino Jacobson MD #### RETCT, CDP, FERI #### [facility] [address] [place] [address] Furniture Delivery Driver: Lukasz Puga MD Ferritinon 12-05-2023 Ferritin [Mass/Vol] 39 ng/mL Normal 13-150 [facility] Comment on above: Performed By: #### F EBC, HGBE, B12FOL #### [address] [address] Furniture Delivery Driver: Severino Jacobson MD #### RETCT, CDP, FERI #### [facility] [address] [place] [address] Furniture Delivery Driver: Lukasz Puga MD Iron Binding Cap.on 12-05-19 24 % Fe Saturation 14 % Low 20-55 [facility] Comment on above: Performed By: #### F EBC, HGBE, B12FOL #### [address] [address] Furniture Delivery Driver: Severino Jacobson MD #### RETCT, CDP, FERI #### [facility] [address] [place] [address] Furniture Delivery Driver: Lukasz Puga MD Iron [Mass/Vol] 42 ug/dL Normal 37-145 [facility] Comment on above: Performed By: #### F EBC, HGBE, B12FOL #### [address] [address] Furniture Delivery Driver: Severino Jacobson MD #### RETCT, CDP, FERI #### [facility] [address] [place] [address] Furniture Delivery Driver: Lukasz Puga MD Total Fe Binding Cap 310 ug/dL Normal 250-450 [facility] Comment on above: Performed By: #### F EBC, HGBE, B12FOL #### [address] [address] Furniture Delivery Driver: Severino Jacobson MD #### RETCT, CDP, FERI #### [facility] [address] [place] [address] Furniture Delivery Driver: Lukasz Puga MD Unbound Fe Bind Cap 268 ug/dL Normal 112-347 [facility] Comment on above: Performed By: #### F EBC, HGBE, B12FOL #### [address] [address] Furniture Delivery Driver: Severino Jacobson MD #### RETCT, CDP, FERI #### [facility] [place] [address] Furniture Delivery Driver: Lukasz Puga MD Retic Counton 12-05-2023 Absolute Retic 0.062 M/uL Normal 0.030-0.080 [facility] Comment on above: Performed By: #### F EBC, HGBE, B12FOL #### [address] [address] Furniture Delivery Driver: Severino Jacobson MD #### RETCT, CDP, FERI #### [facility] [address] [place] [address] Furniture Delivery Driver: Lukasz Puga MD IRF 9.6 % Normal 2.7-18.3 [facility] Comment on above: Performed By: #### F EBC, HGBE, B12FOL #### [address] [address] Furniture Delivery Driver: Severino Jacobson MD #### RETCT, CDP, FERI #### [facility] [address] [place] [address] [phone] Furniture Delivery Driver: Lukasz Puga MD Retic Count 1.8 % Normal 0.5-1.9 [facility] Comment on above: Performed By: #### F EBC, HGBE, B12FOL #### [address] [phone] Furniture Delivery Driver: Severino Jacobson MD #### RETCT, CDP, FERI #### [facility] [address] [place] [address] [phone] Furniture Delivery Driver: Lukasz Puga MD Retic Hemoglobin 28.8 pg Normal 28.2-35.7 [facility] Comment on above: Performed By: #### F EBC, HGBE, B12FOL #### [address] [phone] Furniture Delivery Driver: Severino Jacobson MD #### RETCT, CDP, FERI #### [facility] [address] [place] [address] [phone] Furniture Delivery Driver: Lukasz Puga MD Surgical Pathology Reporton 12-05-2023 Surgical Pathology Report (NOTE) [id number] [facility] CONSULTING PATHOLOGISTS [facility] ANATOMIC PATHOLOGY [address] [place] [id number] SURGICAL PATHOLOGY CONSULTATION Patient Name: HOMERO DE LEON MR#: [id number] Specimen #[id number] Procedures/Addenda PERIPHERAL BLOOD REPORT Date Ordered: 12/07/2023 Status: Signed Out Date Complete: 12/08/2023 By: Mita Regan M.D. Date Reported: 12/08/2023 INTERPRETATION Peripheral blood: - Normocytic normochromic anemia with unremarkable red blood cell morphology. - White blood cells with normal morphology. No blasts. - Platelets with unremarkable morphology. RESULTS-COMMENTS PERIPHERAL BLOOD STUDY CBC: Please see the electronic health record for CBC parameters ([id number], 12/05/2023, 13:35). PLATELETS: Platelets show normal morphology. LEUKOCYTES: White blood cells show normal morphology. No atypical lymphocytes. No dysplasia. There are no blasts. ERYTHROCYTES: Normocytic normochromic anemia. Red blood cells show normal morphology. Note: The electronic health record is reviewed. Mita Regan M.D. Source: A: Peripheral Blood Normal [facility] CBC with Diffon 11-06-2023 Abs. Basophil 0.04 k/uL Normal 0.00-0.20 [facility] Comment on above: Performed By: #### C DP CP, LIPRF #### [place] [address] Furniture Delivery Driver: Severino Jacobson MD Abs.Imm.Granulocyte <0.03 Normal 0.00-0.30 [facility] Comment on above: Performed By: #### C DP, CP, LIPRF #### [place] [address] Furniture Delivery Driver: Severino Jacobson MD Abs.Neutrophil (Seg) 4.76 k/uL Normal 1.50-8.10 [facility] Comment on above: Performed By: #### C DP CP, LIPRF #### [place] [address] Furniture Delivery Driver: Severino Jacobson MD Basophils/100 WBC (Bld) 1 % Normal 0-2 [facility] Comment on above: Performed By: #### C DP, CP, LIPRF #### [place] [address] Furniture Delivery Driver: Severino Jacobson MD Eosinophils (Bld) [#/Vol] 0.24 10*3/uL Normal 0.00-0.44 [facility] Comment on above: Performed By: #### C DP, CP, LIPRF #### [address] [address] Furniture Delivery Driver: Severino Jacobson MD Eosinophils/100 WBC (Bld) 3 % Normal 1-4 [facility] Comment on above: Performed By: #### C DP, CP, LIPRF #### [address] [address] Furniture Delivery Driver: Severino Jacobson MD Erythrocyte distribution width (RBC) [Ratio] 12.3 % Normal 11.8-14.4 [facility] Comment on above: Performed By: #### C DP, CP, LIPRF #### [address] [address] Furniture Delivery Driver: Severino Jacobson MD Hematocrit (Bld) [Volume fraction] 35.5 % Low 36.3-47.1 [facility] Comment on above: Performed By: #### C DP, CP, LIPRF #### [address] [address] Furniture Delivery Driver: Severino Jacobson MD Hemoglobin (Bld) [Mass/Vol] 11.2 g/dL Low 11.9-15.1 [facility] Comment on above: Performed By: #### C DP, CP, LIPRF #### [address] [address] Furniture Delivery Driver: Severino Jacobson MD Immature granulocytes/100 WBC (Bld) 0 % Normal 0 [facility] Comment on above: Performed By: #### C DP, CP, LIPRF #### [address] [address] Furniture Delivery Driver: Severino Jacobson MD Lymphocytes (Bld) [#/Vol] 2.47 10*3/uL Normal 1.10-3.70 [facility] Comment on above: Performed By: #### C DP, CP, LIPRF #### [facility] [employer] [address] [place] [address] Furniture Delivery Driver: Severino Jacobson MD Lymphocytes/100 WBC (Bld) 31 % Normal 24-43 [facility] Comment on above: Performed By: #### C DP, CP, LIPRF #### [address] [address] Furniture Delivery Driver: Severino Jacobson MD MCH (RBC) [Entitic mass] 29.6 pg Normal 25.2-33.5 [facility] Comment on above: Performed By: #### C DP, CP, LIPRF #### [place] [address] Furniture Delivery Driver: Severino Jacobson MD MCHC (RBC) [Mass/Vol] 31.5 g/dL Normal 28.4-34.8 [facility] Comment on above: Performed By: #### C DP, CP, LIPRF #### [place] [address] Furniture Delivery Driver: Severino Jacobson MD MCV (RBC) [Entitic vol] 93.9 fL Normal 82.6-102.9 [facility] Comment on above: Performed By: #### C DP, CP, LIPRF #### [place] [address] Furniture Delivery Driver: Severino Jacobson MD Monocytes (Bld) [#/Vol] 0.56 10*3/uL Normal 0.10-1.20 [facility] Comment on above: Performed By: #### C DP, CP, LIPRF #### [address] [address] Furniture Delivery Driver: Severino Jacobson MD Monocytes/100 WBC (Bld) 7 % Normal 3-12 [facility] Comment on above: Performed By: #### C DP, CP, LIPRF #### [place] [address] Furniture Delivery Driver: Severino Jacobson MD Neutrophil (Seg) 58 % Normal 36-65 [facility] Comment on above: Performed By: #### C DP, CP, LIPRF #### [address] [address] Furniture Delivery Driver: Severino Jacobson MD NRBC Automated 0.0 per 100 WBC Normal 0.0 [facility] Comment on above: Performed By: #### C DP, CP, LIPRF #### [facility] [employer] [address] [place] [address] Furniture Delivery Driver: Severino Jacobson MD Platelet mean volume (Bld) [Entitic vol] 10.5 fL Normal 8.1-13.5 [facility] Comment on above: Performed By: #### C DP, CP, LIPRF #### [address] [address] Furniture Delivery Driver: Severino Jacobson MD Platelets (Bld) [#/Vol] 501 10*3/uL High 138-453 [facility] Comment on above: Performed By: #### C DP, CP, LIPRF #### [address] [address] Furniture Delivery Driver: Severino Jacobson MD RBC (Bld) [#/Vol] 3.78 10*6/uL Low 3.95-5.11 [facility] Comment on above: Performed By: #### C DP, CP, LIPRF #### [address] [address] Furniture Delivery Driver: Severino Jacobson MD WBC (Bld) [#/Vol] 8.1 10*3/uL Normal 3.5-11.3 [facility] Comment on above: Performed By: #### C DP, CP, LIPRF #### [address] [address] Furniture Delivery Driver: Severino Jacobson MD Comp Metabolic Profon 2023 Albumin [Mass/Vol] 4.8 g/dL Normal 3.5-5.2 [facility] Comment on above: Performed By: #### C DP, CP, LIPRF #### [address] [address] Furniture Delivery Driver: Severino Jacobson MD Albumin/Glob Ratio 2.0 Normal 1.0-2.5 [facility] Comment on above: Performed By: #### C DP, CP, LIPRF #### [address] [address] Furniture Delivery Driver: Severino Jacobson MD Alkaline Phos 43 U/L Normal 35-104 [facility] Comment on above: Performed By: #### C DP, CP, LIPRF #### [address] [address] Furniture Delivery Driver: Severino Jacobson MD ALT [Catalytic activity/Vol] 14 U/L Normal 10-35 [facility] Comment on above: Performed By: #### C DP, CP, LIPRF #### [address] [address] Furniture Delivery Driver: Severino Jacobson MD Anion gap [Moles/Vol] 10 mmol/L Normal 9-16 [facility] Comment on above: Performed By: #### C DP, CP, LIPRF #### [address] [address] Furniture Delivery Driver: Severino Jacobson MD AST [Catalytic activity/Vol] 27 U/L Normal 10-35 [facility] Comment on above: Performed By: #### C DP, CP, LIPRF #### [facility] [employer] [address] [place] [address] [employer] Delivery Driver: Severino Jacobson MD Bilirubin [Mass/Vol] 0.6 mg/dL Normal 0.00-1.20 [facility] Comment on above: Performed By: #### C DP, CP, LIPRF #### [address] [address] Furniture Delivery Driver: Severino Jacobson MD Calcium [Mass/Vol] 9.5 mg/dL Normal 8.6-10.4 [facility] Comment on above: Performed By: #### C DP, CP, LIPRF #### [address] [address] Furniture Delivery Driver: Severino Jacobson MD Chloride [Moles/Vol] 103 mmol/L Normal 98-107 [facility] Comment on above: Performed By: #### C DP, CP, LIPRF #### [address] [address] Furniture Delivery Driver: Severino Jacobson MD CO2 [Moles/Vol] 26 mmol/L Normal 20-31 [facility] Comment on above: Performed By: #### C DP, CP, LIPRF #### [address] [address] Furniture Delivery Driver: Severino Jacobson MD Creatinine [Mass/Vol] 0.8 mg/dL Normal 0.50-0.90 [facility] Comment on above: Performed By: #### C DP, CP, LIPRF #### [place] [address] [employer]iture Delivery Driver: Severino Jacobson MD GFR/1.73 sq M.predicted among non-blacks MDRD (S/P/Bld) [Vol rate/Area] mL/min/{1.73_m2} Normal >60 [facility] Comment on above: Result Comment: [...] By: #### C DP, CP, LIPRF #### [address] [address] Furniture Delivery Driver: Severino Jacobson MD Glucose [Mass/Vol] 90 mg/dL Normal 74-99 [facility] Comment on above: Performed By: #### C DP, CP, LIPRF #### [address] [address] Furniture Delivery Driver: Severino Jacobson MD Potassium [Moles/Vol] 3.9 mmol/L Normal 3.7-5.3 [facility] Comment on above: Performed By: #### C DP, CP, LIPRF #### [address] [address] Furniture Delivery Driver: Severino Jacobson MD Protein [Mass/Vol] 7.7 g/dL Normal 6.6-8.7 [facility] Comment on above: Performed By: #### C DP, CP, LIPRF #### [address] [address] Furniture Delivery Driver: Severino Jacobson MD Sodium [Moles/Vol] 139 mmol/L Normal 136-145 [facility] Comment on above: Performed By: #### C DP, CP, LIPRF #### [address] [address] Furniture Delivery Driver: Severino Jacobson MD Urea nitrogen [Mass/Vol] 12 mg/dL Normal 6-20 [facility] Comment on above: Performed By: #### C DP, CP, LIPRF #### [address] [address] Furniture Delivery Driver: Severino Jacobson MD Lipid Prof, Fastingon 2023 Cholesterol [Mass/Vol] 178 mg/dL Normal 0-199 [facility] Comment on above: Result Comment: Cholesterol Guidelines: <200 Desirable 200-240 Borderline >240 Undesirable Performed By: #### C DP, CP, LIPRF #### [facility] [employer] [address] [place] [address] Furniture Delivery Driver: Severino Jacobson MD Cholesterol in HDL [Mass/Vol] 50 mg/dL Normal >40 [facility] Comment on above: Result Comment: HDL Guidelines: <40 Undesirable 40-59 Borderline >59 Desirable Performed By: #### C DP, CP, LIPRF #### [facility] [employer] [address] [place] [address] Furniture Delivery Driver: Severino Jacobson MD Cholesterol in LDL [Mass/Vol] 115 mg/dL High 0-100 [facility] Comment on above: Result Comment: LDL Guidelines: <100 Desirable 100-129 Near to/above Desirable 130-159 Borderline >159 Undesirable Direct (measured) LDL and calculated LDL are not interchangeable tests. Performed By: #### C DP, CP, LIPRF #### [facility] [employer] [address] [place] [address] Furniture Delivery Driver: Severino Jacobson MD Cholesterol in VLDL [Mass/Vol] 13 mg/dL Normal [facility] Comment on above: Performed By: #### C DP, CP, LIPRF #### [facility] [employer] [address] [place] [address] Furniture Delivery Driver: Severino Jacobson MD Cholesterol.total/Chol esterol in HDL [Mass ratio] 4.0 {ratio} Normal [facility] Comment on above: Performed By: #### C DP, CP, LIPRF #### [facility] [employer] [address] [place] [address] Furniture Delivery Driver: Severino Jacobson MD Triglyceride,Fasting 64 mg/dL Normal 0-149 [facility] Comment on above: Result Comment: Triglyceride Guidelines: <150 Desirable 150-199 Borderline 200-499 High >499 Very high Based on AHA Guidelines for fasting triglyceride, February 2012. Performed By: #### C DP, CP, LIPRF #### [address] [address] Furniture Delivery Driver: Severino Jacobson MD CBC with Diffon 09-02-2023 Abs. Basophil <0.03 Normal 0.00-0.20 [facility] Comment on above: Performed By: #### C DP, LIPRF, CP #### [place] [address] [employer]iture Delivery Driver: Severino Jacobson MD Abs.Imm.Granulocyte <0.03 Normal 0.00-0.30 [facility] Comment on above: Performed By: #### C DYLLAN LIPRF, CP #### [place] [address] [employer]iture Delivery Driver: Severino Jacobson MD Abs.Neutrophil (Seg) 3.88 k/uL Normal 1.50-8.10 [facility] Comment on above: Performed By: #### C DP, LIPRF, CP #### [place] [address] [employer]iture Delivery Driver: Severino Jacobson MD Basophils/100 WBC (Bld) 0 % Normal 0-2 [facility] Comment on above: Performed By: #### C DP LIPRF, CP #### [place] [address] [employer]iture Delivery Driver: Severino Jacobson MD Eosinophils (Bld) [#/Vol] 0.18 10*3/uL Normal 0.00-0.44 [facility] Comment on above: Performed By: #### C DP LIPRF, CP #### [place] [address] [employer]iture Delivery Driver: Severino Jacobson MD Eosinophils/100 WBC (Bld) 3 % Normal 1-4 [facility] Comment on above: Performed By: #### C DP, LIPRF, CP #### [address] [address] Furniture Delivery Driver: Severino Jacobson MD Erythrocyte distribution width (RBC) [Ratio] 12.6 % Normal 11.8-14.4 [facility] Comment on above: Performed By: #### C DP, LIPRF, CP #### [address] [address] Furniture Delivery Driver: Severino Jacobson MD Hematocrit (Bld) [Volume fraction] 34.6 % Low 36.3-47.1 [facility] Comment on above: Performed By: #### C DP, LIPRF, CP #### [address] [address] Furniture Delivery Driver: Severino Jacobson MD Hemoglobin (Bld) [Mass/Vol] 10.8 g/dL Low 11.9-15.1 [facility] Comment on above: Performed By: #### C DP, LIPRF, CP #### [address] [address] Furniture Delivery Driver: Severino Jacobson MD Immature granulocytes/100 WBC (Bld) 0 % Normal 0 [facility] Comment on above: Performed By: #### C DP, LIPRF, CP #### [address] [address] Furniture Delivery Driver: Severino Jacobson MD Lymphocytes (Bld) [#/Vol] 2.64 10*3/uL Normal 1.10-3.70 [facility] Comment on above: Performed By: #### C DP, LIPRF, CP #### [address] [address] Furniture Delivery Driver: Severino Jacobson MD Lymphocytes/100 WBC (Bld) 37 % Normal 24-43 [facility] Comment on above: Performed By: #### C DP, LIPRF, CP #### [facility] [employer] [address] [place] [address] Furniture Delivery Driver: Severino Jacobson MD MCH (RBC) [Entitic mass] 29.7 pg Normal 25.2-33.5 [facility] Comment on above: Performed By: #### C DP, LIPRF, CP #### [address] [address] Furniture Delivery Driver: Severino Jacobson MD MCHC (RBC) [Mass/Vol] 31.2 g/dL Normal 28.4-34.8 [facility] Comment on above: Performed By: #### C DP, LIPRF, CP #### [address] [address] Furniture Delivery Driver: Severino Jacobson MD MCV (RBC) [Entitic vol] 95.1 fL Normal 82.6-102.9 [facility] Comment on above: Performed By: #### C DP, LIPRF, CP #### [place] [address] Furniture Delivery Driver: Severino Jacobson MD Monocytes (Bld) [#/Vol] 0.41 10*3/uL Normal 0.10-1.20 [facility] Comment on above: Performed By: #### C DP, LIPRF, CP #### [address] [address] Furniture Delivery Driver: Severino Jacobson MD Monocytes/100 WBC (Bld) 6 % Normal 3-12 [facility] Comment on above: Performed By: #### C DP, LIPRF, CP #### [address] [address] Furniture Delivery Driver: Severino Jacobson MD Neutrophil (Seg) 54 % Normal 36-65 [facility] Comment on above: Performed By: #### C DP, LIPRF, CP #### [address] [address] Furniture Delivery Driver: Severino Jacobson MD NRBC Automated 0.0 per 100 WBC Normal 0.0 [facility] Comment on above: Performed By: #### C FANNIE MIJARES, CP #### [address] [address] Furniture Delivery Driver: Severino Jacobson MD Platelet mean volume (Bld) [Entitic vol] 10.7 fL Normal 8.1-13.5 [facility] Comment on above: Performed By: #### C DP LIPRF, CP #### [address] [address] Furniture Delivery Driver: Severino Jacobson MD Platelets (Bld) [#/Vol] 460 10*3/uL High 138-453 [facility] Comment on above: Performed By: #### C EKTA MIJARESRF, CP #### [address] [address] Furniture Delivery Driver: Severino Jacobson MD RBC (Bld) [#/Vol] 3.64 10*6/uL Low 3.95-5.11 [facility] Comment on above: Performed By: #### C FANNIE MIJARES, CP #### [address] [address] Furniture Delivery Driver: Severino Jacobson MD WBC (Bld) [#/Vol] 7.2 10*3/uL Normal 3.5-11.3 [facility] Comment on above: Performed By: #### C DP LIPRF, CP #### [address] [address] Furniture Delivery Driver: Severino Jacobson MD Comp Metabolic Profon 2023 Albumin [Mass/Vol] 4.4 g/dL Normal 3.5-5.2 [facility] Comment on above: Performed By: #### C DP LIPRF, CP #### [address] [address] Furniture Delivery Driver: Severino Jacobson MD Albumin/Glob Ratio 2.0 Normal 1.0-2.5 [facility] Comment on above: Performed By: #### C FANNIE MIJARES, CP #### [address] [address] Furniture Delivery Driver: Severino Jacobson MD Alkaline Phos 35 U/L Normal 35-104 [facility] Comment on above: Performed By: #### C FANNIE MIJARES, CP #### [address] [address] Furniture Delivery Driver: Severino Jacobson MD ALT [Catalytic activity/Vol] 12 U/L Normal 10-35 [facility] Comment on above: Performed By: #### C FANNIE MIJARES, CP #### [address] [address] Furniture Delivery Driver: Severino Jacobson MD Anion gap [Moles/Vol] 9 mmol/L Normal 9-16 [facility] Comment on above: Performed By: #### C FANNIE MIJARES, CP #### [address] [address] Furniture Delivery Driver: Severino Jacobson MD AST [Catalytic activity/Vol] 25 U/L Normal 10-35 [facility] Comment on above: Performed By: #### C FANNIE MIJARES, CP #### [address] [address] Furniture Delivery Driver: Severino Jacobson MD Bilirubin [Mass/Vol] 0.6 mg/dL Normal 0.00-1.20 [facility] Comment on above: Performed By: #### C DYLLAN LIPRF, CP #### [address] [address] Furniture Delivery Driver: Severino Jacobson MD Calcium [Mass/Vol] 8.9 mg/dL Normal 8.6-10.4 [facility] Comment on above: Performed By: #### C FANNIE MIJARES, CP #### [address] [address] Furniture Delivery Driver: Severino Jacobson MD Chloride [Moles/Vol] 107 mmol/L Normal 98-107 [facility] Comment on above: Performed By: #### C FANNIE MIJARES, CP #### [facility] [address] [place] [address] Furniture Delivery Driver: Severino Jacobson MD CO2 [Moles/Vol] 24 mmol/L Normal 20-31 [facility] Comment on above: Performed By: #### C FANNIE MIJARES, CP #### [address] [address] Furniture Delivery Driver: Severino Jacobson MD Creatinine [Mass/Vol] 0.7 mg/dL Normal 0.50-0.90 [facility] Comment on above: Performed By: #### C FANNIE MIJARES, CP #### [address] [address] Furniture Delivery Driver: Severino Jacobson MD GFR/1.73 sq M.predicted among non-blacks MDRD (S/P/Bld) [Vol rate/Area] mL/min/{1.73_m2} Normal >60 [facility] Comment on above: Result Comment: [...] By: #### C FANNIE MIJARES, CP #### [address] [address] Furniture Delivery Driver: Severino Jacobson MD Glucose [Mass/Vol] 97 mg/dL Normal 74-99 [facility] Comment on above: Performed By: #### C DP, LIPRF, CP #### [address] [address] Furniture Delivery Driver: Severino Jacobson MD Potassium [Moles/Vol] 4.0 mmol/L Normal 3.7-5.3 [facility] Comment on above: Performed By: #### C DP, LIPRF, CP #### [address] [address] Furniture Delivery Driver: Severino Jacobson MD Protein [Mass/Vol] 7.3 g/dL Normal 6.6-8.7 [facility] Comment on above: Performed By: #### C DP, LIPRF, CP #### [address] [address] Furniture Delivery Driver: Severino Jacobson MD Sodium [Moles/Vol] 140 mmol/L Normal 136-145 [facility] Comment on above: Performed By: #### C DP, LIPRF, CP #### [address] [address] Furniture Delivery Driver: Severino Jacobson MD Urea nitrogen [Mass/Vol] 12 mg/dL Normal 6-20 [facility] Comment on above: Performed By: #### C DP, LIPRF, CP #### [address] [address] Furniture Delivery Driver: Severino Jacobson MD Lipid Prof, Fastingon 2023 Cholesterol [Mass/Vol] 164 mg/dL Normal 0-199 [facility] Comment on above: Result Comment: Cholesterol Guidelines: <200 Desirable 200-240 Borderline >240 Undesirable Performed By: #### C DP, LIPRF, CP #### [facility] [employer] [address] [place] [address] Furniture Delivery Driver: Severino Jacobson MD Cholesterol in HDL [Mass/Vol] 52 mg/dL Normal >40 [facility] Comment on above: Result Comment: HDL Guidelines: <40 Undesirable 40-59 Borderline >59 Desirable Performed By: #### C FANNIE MIJARES, CP #### [address] [address] Furniture Delivery Driver: Severino Jacobson MD Cholesterol in LDL [Mass/Vol] 102 mg/dL High 0-100 [facility] Comment on above: Result Comment: LDL Guidelines: <100 Desirable 100-129 Near to/above Desirable 130-159 Borderline >159 Undesirable Direct (measured) LDL and calculated LDL are not interchangeable tests. Performed By: #### C FANNIE MIJARES, CP #### [place] [address] Furniture Delivery Driver: Severino Jacobson MD Cholesterol in VLDL [Mass/Vol] 10 mg/dL Normal [facility] Comment on above: Performed By: #### C FANNIE MIJARES, CP #### [place] [address] Furniture Delivery Driver: Severino Jacobson MD Cholesterol.total/Chol esterol in HDL [Mass ratio] 3.0 {ratio} Normal [facility] Comment on above: Performed By: #### C FANNIE MIJARES, CP #### [place] [address] Furniture Delivery Driver: Severino Jacobson MD Triglyceride,Fasting 49 mg/dL Normal 0-149 [facility] Comment on above: Result Comment: Triglyceride Guidelines: <150 Desirable 150-199 Borderline 200-499 High >499 Very high Based on AHA Guidelines for fasting triglyceride, February 2012. Performed By: #### C FANNIE MIJARES, CP #### [address] [address] Furniture Delivery Driver: Severino Jacobson MD SARS/FLU A+B/RSV by NAAT/[facility] ecularon 07-17-2023 SARS/FLU A+B/RSV by NAAT/Molecular FLU A [...] operators who are performing tests using either [employer] or [employer] systems and is limited to laboratories that [...] repeat. Fact Sheet for Healthcare Providers: https://www.fda.gov/ media/932458/downloa d Fact Sheet for Patients: https://www.fda.gov/ media/920983/downloa d [facility] Comment on above: Performed By: #### C OVFLR #### [facility] ([id number]) [address] [place] [address] QuantiFERON TBon 04-14-2023 Quanti [place]o minus NIL >10.00 Normal [facility] Comment on above: Performed By: #### A QF #### [facility] [address] [place] [address] Furniture Delivery Driver: Tai Lopez MD Quanti TB Gold Plus Negative Normal Negative [facility] Comment on above: Result Comment: [...] Mycobacterium tuberculosis Infection --- [place], 2010 (http://www.cdc.gov/mmwr/preview/mmwrhtml/fs3952y1.htm), for more information concerning test performance in low-prevalence populations and use in occupational screening. Performed By: #### A QF #### [facility] [address] [place] [address] Furniture Delivery Driver: Tai Lopez MD Quanti TB1 minus NIL 0.10 IU/mL Normal 0.00-0.34 [facility] Comment on above: Performed By: #### A QF #### [facility] [address] [place] [address] Furniture Delivery Driver: Tai Lopez MD Quanti TB2 minus NIL 0.10 IU/mL Normal 0.00-0.34 [facility] Comment on above: Performed By: #### A QF #### [facility] [address] [place], [place] [id number] Furniture Delivery Driver: Tai Lopez MD QuantiFERON NIL 0.03 IU/mL Normal [facility] Comment on above: Result Comment: (NOT E) Performed By: [facility] [address] [place] [address] Vacuum Cleaner Operator: Royal Banda MD, PhD CLIA Number: [id number] Performed By: #### A QF #### [facility] [address], [place] [id number] Furniture Delivery Driver: Tai Lopez MD CBC with Diffon 04-11-2023 Abs. Basophil 0.05 k/uL Normal 0.00-0.20 [facility] Comment on above: Performed By: #### L IPRF, CDP, PHEP, CP, HIVCMB #### [place] [address] Furniture Delivery Driver: Severino Jacobson MD Abs.Imm.Granulocyte 0.03 k/uL Normal 0.00-0.30 [facility] Comment on above: Performed By: #### L IPRF, CDP, PHEP, CP, HIVCMB #### [place] [address] Furniture Delivery Driver: Severino Jacobson MD Abs.Neutrophil (Seg) 4.20 k/uL Normal 1.50-8.10 [facility] Comment on above: Performed By: #### L IPRF, CDP, PHEP, CP, HIVCMB #### [place] [address] Furniture Delivery Driver: Severino Jacobson MD Basophils/100 WBC (Bld) 1 % Normal 0-2 [facility] Comment on above: Performed By: #### L IPRF, CDP, PHEP, CP, HIVCMB #### [address] [address] Furniture Delivery Driver: Severino Jacobson MD Eosinophils (Bld) [#/Vol] 0.36 10*3/uL Normal 0.00-0.44 [facility] Comment on above: Performed By: #### L IPRF, CDP, PHEP, CP, HIVCMB #### [place] [address] Furniture Delivery Driver: Severino Jacobson MD Eosinophils/100 WBC (Bld) 5 % High 1-4 [facility] Comment on above: Performed By: #### L IPRF, CDP, PHEP, CP, HIVCMB #### [place] [address] Furniture Delivery Driver: Severino Jacobson MD Erythrocyte distribution width (RBC) [Ratio] 11.6 % Low 11.8-14.4 [facility] Comment on above: Performed By: #### L IPRF, CDP, PHEP, CP, HIVCMB #### [place] [address] Furniture Delivery Driver: Severino Jacobson MD Hematocrit (Bld) [Volume fraction] 34.3 % Low 36.3-47.1 [facility] Comment on above: Performed By: #### L IPRF, CDP, PHEP, CP, HIVCMB #### [place] [address] Furniture Delivery Driver: Severino Jacobson MD Hemoglobin (Bld) [Mass/Vol] 10.9 g/dL Low 11.9-15.1 [facility] Comment on above: Performed By: #### L IPRF, CDP, PHEP, CP, HIVCMB #### [address] [address] Furniture Delivery Driver: Severino Jacobson MD Immature granulocytes/100 WBC (Bld) 0 % Normal 0 [facility] Comment on above: Performed By: #### L IPRF, CDP, PHEP, CP, HIVCMB #### [address] [address] Furniture Delivery Driver: Severino Jacobson MD Lymphocytes (Bld) [#/Vol] 2.55 10*3/uL Normal 1.10-3.70 [facility] Comment on above: Performed By: #### L IPRF, CDP, PHEP, CP, HIVCMB #### [address] [address] Furniture Delivery Driver: Severino Jacobson MD Lymphocytes/100 WBC (Bld) 33 % Normal 24-43 [facility] Comment on above: Performed By: #### L IPRF, CDP, PHEP, CP, HIVCMB #### [address] [address] Furniture Delivery Driver: Severino Jacobson MD MCH (RBC) [Entitic mass] 30.1 pg Normal 25.2-33.5 [facility] Comment on above: Performed By: #### L IPRF, CDP, PHEP, CP, HIVCMB #### [address] [address] Furniture Delivery Driver: Severino Jacobson MD MCHC (RBC) [Mass/Vol] 31.8 g/dL Normal 28.4-34.8 [facility] Comment on above: Performed By: #### L IPRF, CDP, PHEP, CP, HIVCMB #### [address] [address] Furniture Delivery Driver: Severino Jacobson MD MCV (RBC) [Entitic vol] 94.8 fL Normal 82.6-102.9 [facility] Comment on above: Performed By: #### L IPRF, CDP, PHEP, CP, HIVCMB #### [address] [address] Furniture Delivery Driver: Severino Jacobson MD Monocytes (Bld) [#/Vol] 0.55 10*3/uL Normal 0.10-1.20 [facility] Comment on above: Performed By: #### L IPRF, CDP, PHEP, CP, HIVCMB #### [address] [address] Furniture Delivery Driver: Severino Jacobson MD Monocytes/100 WBC (Bld) 7 % Normal 3-12 [facility] Comment on above: Performed By: #### L IPRF, CDP, PHEP, CP, HIVCMB #### [address] [address] Furniture Delivery Driver: Severino Jacobson MD Neutrophil (Seg) 54 % Normal 36-65 [facility] Comment on above: Performed By: #### L IPRF, CDP, PHEP, CP, HIVCMB #### [address] [address] Furniture Delivery Driver: Severino Jacobson MD NRBC Automated 0.0 per 100 WBC Normal 0.0 [facility] Comment on above: Performed By: #### L IPRF, CDP, PHEP, CP, HIVCMB #### [address] [address] Furniture Delivery Driver: Severino Jacobson MD Platelet mean volume (Bld) [Entitic vol] 11.0 fL Normal 8.1-13.5 [facility] Comment on above: Performed By: #### L IPRF, CDP, PHEP, CP, HIVCMB #### [address] [address] Furniture Delivery Driver: Severino Jacobson MD Platelets (Bld) [#/Vol] 382 10*3/uL Normal 138-453 [facility] Comment on above: Performed By: #### L IPRF, CDP, PHEP, CP, HIVCMB #### [facility] [employer] [address] [place] [address] Furniture Delivery Driver: Severino Jacobson MD RBC (Bld) [#/Vol] 3.62 10*6/uL Low 3.95-5.11 [facility] Comment on above: Performed By: #### L IPRF, CDP, PHEP, CP, HIVCMB #### [facility] [employer] [address] [place] [address] Furniture Delivery Driver: Severino Jacobson MD WBC (Bld) [#/Vol] 7.7 10*3/uL Normal 3.5-11.3 [facility] Comment on above: Performed By: #### L IPRF, CDP, PHEP, CP, HIVCMB #### [facility] [employer] [address] [place] [address] Furniture Delivery Driver: Severino Jacobson MD Comp Metabolic Profon 2022 Albumin [Mass/Vol] 4.4 g/dL Normal 3.5-5.2 [facility] Comment on above: Performed By: #### L IPRF, CDP, PHEP, CP, HIVCMB #### [facility] [employer] [address] [place] [address] Furniture Delivery Driver: Severino Jacobson MD Albumin/Glob Ratio 2.0 Normal 1.0-2.5 [facility] Comment on above: Performed By: #### L IPRF, CDP, PHEP, CP, HIVCMB #### [facility] [employer] [address] [place] [address] Furniture Delivery Driver: Severino Jacobson MD Alkaline Phos 39 U/L Normal 35-104 [facility] Comment on above: Performed By: #### L IPRF, CDP, PHEP, CP, HIVCMB #### [facility] [employer] [address] [place] [address] Furniture Delivery Driver: Severnio Jacobson MD ALT [Catalytic activity/Vol] 10 U/L Normal 10-35 [facility] Comment on above: Performed By: #### L IPRF, CDP, PHEP, CP, HIVCMB #### [facility] [employer] [address] [place] [address] Furniture Delivery Driver: Severino Jacobson MD Anion gap [Moles/Vol] 9 mmol/L Normal 9-16 [facility] Comment on above: Performed By: #### L IPRF, CDP, PHEP, CP, HIVCMB #### [facility] [employer] [address] [place] [address] Furniture Delivery Driver: Severino Jacobson MD AST [Catalytic activity/Vol] 22 U/L Normal -35 [facility] Comment on above: Performed By: #### L IPRF, CDP, PHEP, CP, HIVCMB #### [address] [address] Furniture Delivery Driver: Severino Jacobson MD Bilirubin [Mass/Vol] 0.3 mg/dL Normal 0.00-1.20 [facility] Comment on above: Performed By: #### L IPRF, CDP, PHEP, CP, HIVCMB #### [facility] [employer] [address] [place] [address] Furniture Delivery Driver: Severino Jacobson MD Calcium [Mass/Vol] 9.3 mg/dL Normal 8.6-10.4 [facility] Comment on above: Performed By: #### L IPRF, CDP, PHEP, CP, HIVCMB #### [facility] [employer] [address] [place] [address] Furniture Delivery Driver: Severino Jacobson MD Chloride [Moles/Vol] 104 mmol/L Normal 98-107 [facility] Comment on above: Performed By: #### L IPRF, CDP, PHEP, CP, HIVCMB #### [facility] [employer] [address] [place] [address] Furniture Delivery Driver: Severino Jacobson MD CO2 [Moles/Vol] 27 mmol/L Normal 20-31 [facility] Comment on above: Performed By: #### L IPRF, CDP, PHEP, CP, HIVCMB #### [address] [phone] Furniture Delivery Driver: Severino Jacobson MD Creatinine [Mass/Vol] 0.7 mg/dL Normal 0.50-0.90 [facility] Comment on above: Performed By: #### L IPRF, CDP, PHEP, CP, HIVCMB #### [address] [phone] Furniture Delivery Driver: Severino Jacobson MD GFR/1.73 sq M.predicted among non-blacks MDRD (S/P/Bld) [Vol rate/Area] mL/min/{1.73_m2} Normal >60 [facility] Comment on above: Result Comment: [...] L IPRF, CDP, PHEP, CP, HIVCMB #### [address] [address] Furniture Delivery Driver: Severino Jacobson MD Glucose [Mass/Vol] 82 mg/dL Normal 74-99 [facility] Comment on above: Performed By: #### L IPRF, CDP, PHEP, CP, HIVCMB #### [address] [phone] Furniture Delivery Driver: Severino Jacobson MD Potassium [Moles/Vol] 3.8 mmol/L Normal 3.7-5.3 [facility] Comment on above: Performed By: #### L IPRF, CDP, PHEP, CP, HIVCMB #### [facility] [employer] [address] [place] [address] Furniture Delivery Driver: Severino Jacobson MD Protein [Mass/Vol] 7.2 g/dL Normal 6.6-8.7 [facility] Comment on above: Performed By: #### L IPRF, CDP, PHEP, CP, HIVCMB #### [facility] [address] [place] [address] Furniture Delivery Driver: Severino Jacobson MD Sodium [Moles/Vol] 140 mmol/L Normal 136-145 [facility] Comment on above: Performed By: #### L IPRF, CDP, PHEP, CP, HIVCMB #### [facility] [employer] [address] [place] [address] Furniture Delivery Driver: Severino Jacobson MD Urea nitrogen [Mass/Vol] 14 mg/dL Normal 6-20 [facility] Comment on above: Performed By: #### L IPRF, CDP, PHEP, CP, HIVCMB #### [facility] [employer] [address] [place] [address] Furniture Delivery Driver: Severino Jacobson MD HIV Ag/Abon 04-11-2023 HIV Ag/Ab Non-Reactive Normal NR [facility] Comment on above: Result Comment: No l aboratory evidence of HIV infection. If acute HIV infection is suspected, consider testing for HIV-1 RNA. Performed By: #### C DP, LIPRF, CP #### [facility] [employer] [address] [place] [address] Furniture Delivery Driver: Severino Jacobson MD Hepatitis Acute [facility] 04-11 Hep A Ab,IgM Non-Reactive Normal NR [facility] Comment on above: Performed By: #### L IPRF, CDP, PHEP, CP, HIVCMB #### [facility] [address] [place] [address] Furniture Delivery Driver: Severino Jacobson MD Hep B Core Ab,IgM Non-Reactive Normal NR [facility] Comment on above: Performed By: #### L IPRF, CDP, PHEP, CP, HIVCMB #### [address] [address] Furniture Delivery Driver: Severino Jacobson MD Hep B Surf Ag Non-Reactive Normal NR [facility] Comment on above: Performed By: #### L IPRF, CDP, PHEP, CP, HIVCMB #### [address] [address] Furniture Delivery Driver: Severino Jacobson MD Hep C Ab Non-Reactive Normal [facility] Comment on above: Result Comment: The [...] L IPRF, CDP, PHEP, CP, HIVCMB #### [address] [address] Furniture Delivery Driver: Severino Jacobson MD Lipid Prof, Fastingon 2022 Cholesterol [Mass/Vol] 155 mg/dL Normal 0-199 [facility] Comment on above: Result Comment: Cholesterol Guidelines: <200 Desirable 200-240 Borderline >240 Undesirable Performed By: #### C DP, LIPRF, CP #### [address] [address] Furniture Delivery Driver: Severino Jacobson MD Cholesterol in HDL [Mass/Vol] 49 mg/dL Normal >40 [facility] Comment on above: Result Comment: HDL Guidelines: <40 Undesirable 40-59 Borderline >59 Desirable Performed By: #### C DP, LIPRF, CP #### [address] [address] Furniture Delivery Driver: Severino Jacobson MD Cholesterol in LDL [Mass/Vol] 98 mg/dL Normal 0-100 [facility] Comment on above: Result Comment: LDL Guidelines: <100 Desirable 100-129 Near to/above Desirable 130-159 Borderline >159 Undesirable Direct (measured) LDL and calculated LDL are not interchangeable tests. Performed By: #### C DP, LIPRF, CP #### [address] [address] Furniture Delivery Driver: Severino Jacobson MD Cholesterol in VLDL [Mass/Vol] 8 mg/dL Normal [facility] Comment on above: Performed By: #### C DP LIPRF, CP #### [address] [address] Furniture Delivery Driver: Severino Jacobson MD Cholesterol.total/Chol esterol in HDL [Mass ratio] 3.0 {ratio} Normal [facility] Comment on above: Performed By: #### C DP, LIPRF, CP #### [facility] [employer] [address] [place] [address] Furniture Delivery Driver: Severino Jacobson MD Triglyceride,Fasting 38 mg/dL Normal 0-149 [facility] Comment on above: Result Comment: Triglyceride Guidelines: <150 Desirable 150-199 Borderline 200-499 High >499 Very high Based on AHA Guidelines for fasting triglyceride, February 2012. Performed By: #### C DP, LIPRF, CP #### [address] [address] Furniture Delivery Driver: Severino Jacobson MD SURGICALon 03-10-[address] [facility] [id number] Assoc. Page 1 of [address] [place] [address] PROC: 03/10/2023 [facility] RECV: 03/13/[address] RPTD: 03/21/2023 [place] [address] LOC: NVCL ACCT: SEX: F [id number] AGE: 32 Y : 1990 PATHOLOGY REPORT [...] on sections examined. Clinical correlation is recommended. [id number] AILEEN DE LA PAZ M.D., F.C.A.P [facility]/ [facility] Printed on: 03/21/[address] [place] [address] Original print date: 03/21/2023 Normal [facility] US PREG ANATOMY SINGLEon US [...] by: VINICIUS GARCIA Date: 2021-08-06 21:37 Normal [facility] CULTURE URINEon 04-25-2021 CULTURE URINE Isolate [...] F Trimethoprim/Sulfame thoxazole <=20 S F Normal [facility] Comment on above: Performed By: #### U RCX ####[facility] [address] [place], [place] [address]Dr. Purvi Smith HEP B SURFACE ANTIGEN SCREEN on 04-24-2021 HBsAg Screen Negative Normal Negative [facility] Comment on above: Performed By: #### H BSANS #### [facility] [address] [place] [address] Dr. Purvi Smith HIV 1 AND 2 WITH REFLEXon HIV Screen 4th Generation wRfx Non-Reactive Normal Non Reactive [facility] Comment on above: Performed By: #### H IV12 ####[facility] [address] [address]Dr. Purvi Smith RPR QUANTon 04-24-2021 Rapid Plasma Reagin, Quant Non-Reactive Normal NonRea<1:1 [facility] Comment on above: Performed By: #### R PRQ #### [facility] [address] [place] [address] Dr. Purvi Smith RUBELLA AB IGGon 04-24-2021 Rubella Antibodies, IgG 1.35 index Normal Immune >0.99 [facility] Comment on above: Result Comment: Non- immune <0.90 Equivocal 0.90 - 0.99 Immune >0.99 Performed By: #### R UBIGG #### [facility] [address] [place] [address] Dr. Purvi Smith CBC AUTO DIFFon 04-23-2021 BASO # 0.0 103/ul Normal 0.0-0.1 [facility] Comment on above: Performed By: #### C BC #### [facility] [address] [place] [address] Dr. Purvi Smith Basophils/100 WBC (Bld) 0.3 % Normal 0.2-2.0 [facility] Comment on above: Performed By: #### C BC #### [facility] [address] [place] [address] Dr. Purvi Smith EO # 0.2 103/ul Normal 0.0-0.7 [facility] Comment on above: Performed By: #### C BC #### [facility] [address] [place] [address] Dr. Purvi Smith Eosinophils/100 WBC (Bld) 2.1 % Normal 0.9-7.0 [facility] Comment on above: Performed By: #### C BC #### [facility] [address] [place] [address] Dr. Purvi Smith Erythrocyte distribution width (RBC) [Ratio] 12.1 % Normal 11.0-15.0 [facility] Comment on above: Performed By: #### C BC #### [facility] [address] [place] [address] Dr. Purvi Smith Hematocrit (Bld) [Volume fraction] 32.3 % Critically low 36.0-48.0 [facility] Comment on above: Performed By: #### C BC #### [facility] [address] [place] [address] Dr. Purvi Smith Hemoglobin (Bld) [Mass/Vol] 10.6 g/dL Critically low 12.0-16.0 [facility] Comment on above: Performed By: #### C BC #### [facility] [address] [place] [address] Dr. Purvi Smith IG # 0.04 10e3/ul Critically high 0.00-0.03 [facility] Comment on above: Performed By: #### C BC #### [facility] [address] [place] [address] Dr. Purvi Smith IG % 0.3 % Normal 0.0-0.5 [facility] Comment on above: Performed By: #### C BC #### [facility] [address] [place] [address] Dr. Purvi Smith LYMPH # 2.1 103/ul Normal 1.2-3.8 [facility] Comment on above: Performed By: #### C BC #### [facility] [address] [place] [address] Dr. Purvi Smith Lymphocytes/100 WBC (Bld) 17.9 % Critically low 20.5-60.0 [facility] Comment on above: Performed By: #### C BC #### [facility] [address] [place] [address] Dr. Purvi Smith MANUAL DIFF REQ NO Normal [facility] Comment on above: Performed By: #### C BC #### [facility] [address] [address] [address] Purvi Smith MCH (RBC) [Entitic mass] 30.2 pg Normal 26.7-34.0 [facility] Comment on above: Performed By: #### C BC #### [facility] [address] [address] [address] Purvi Smith MCHC (RBC) [Mass/Vol] 32.8 g/dL Normal 29.9-35.2 [facility] Comment on above: Performed By: #### C BC #### [facility] [address] [place] [address] Dr. Purvi Smith MCV (RBC) [Entitic vol] 92.0 fL Normal 81.0-99.0 [facility] Comment on above: Performed By: #### C BC #### [facility] [address] [place] [address] Dr. Purvi Smith MONO # 0.8 103/ul Normal 0.3-0.8 [facility] Comment on above: Performed By: #### C BC #### [facility] [address] [place] [address] Dr. Purvi Smith Monocytes/100 WBC (Bld) 6.6 % Normal 1.7-12.0 [facility] Comment on above: Performed By: #### C BC #### [facility] [address] [place] [address] Dr. Purvi Smith NEUT # 8.5 103/ul Critically high 1.4-6.5 [facility] Comment on above: Performed By: #### C BC #### [facility] [address] [place] [address] Dr. Purvi Smith Neutrophils/100 WBC (Bld) 72.8 % Normal 43.0-75.0 [facility] Comment on above: Performed By: #### C BC #### [facility] [address] [place] [address] Dr. Purvi Smith Platelet mean volume (Bld) [Entitic vol] 10.0 fL Normal 9.5-13.5 [facility] Comment on above: Performed By: #### C BC #### [facility] [address] [address] [address] Purvi Smith PLT 361 103/ul Normal 150-450 [facility] Comment on above: Performed By: #### C BC #### [facility] [address] [address] [address] Purvi Smith RBC 3.51 106/ul Critically low 4.20-5.40 [facility] Comment on above: Performed By: #### C BC #### [facility] [address] [address] [address] Purvi Smith WBC 11.7 103/ul Critically high 4.0-11.0 [facility] Comment on above: Performed By: #### C BC #### [facility] [address] [place] [address] Dr. Purvi Smith GLYCOHEMOGLOBIN A1Con 2020 ADA RECOMMENDATION ADA THERAPEUTIC TARGET 6.0 - 7.0 ACTION SUGGESTED > 7.0 Normal [facility] Comment on above: Performed By: #### A 1C #### [facility] [address] [address] [address] Purvi Smith Glucose [Mass/Vol] 88 mg/dL Normal [facility] Comment on above: Performed By: #### A 1C #### [facility] [address] [address] [address] Purvi Smith HbA1c (Bld) [Mass fraction] 4.7 % Normal <=6.0 [facility] Comment on above: Performed By: #### A 1C #### [facility] [address] [address] [address] Purvi FELDMAN BOX TEST PT SEND OUTo n 04-23-2021 SENT TO REF LAB 04/23/2021 Normal [facility] Comment on above: Performed By: #### N BOX #### [facility] [address] [address] [address] Purvi Smith TYPE AND SCREENon 04-23-2021 TYPE AND SCREEN Negative Normal [facility] Comment on above: Performed By: #### T NS #### [facility] [address] [address] [address] Purvi Smith US PREG TVon 03-30-2021 [...] VINICIUS GARCIA Date: 2021-03-30 10:06 Normal [facility] CBC AUTO DIFFon 03-16-2021 BASO # 0.0 103/ul Normal 0.0-0.1 [facility] Comment on above: Performed By: #### C BC #### [facility] [address] [address] [address] Purvi Smith Basophils/100 WBC (Bld) 0.3 % Normal 0.2-2.0 [facility] Comment on above: Performed By: #### C BC #### [facility] [address] [address] [address] Purvi Smith EO # 0.2 103/ul Normal 0.0-0.7 [facility] Comment on above: Performed By: #### C BC #### [facility] [address] [address] [address] Purvi Smith Eosinophils/100 WBC (Bld) 1.9 % Normal 0.9-7.0 [facility] Comment on above: Performed By: #### C BC #### [facility] [address] [place] [address] Dr. Purvi Smith Erythrocyte distribution width (RBC) [Ratio] 11.9 % Normal 11.0-15.0 [facility] Comment on above: Performed By: #### C BC #### [facility] [address] [place] [address] Dr. Purvi Smith Hematocrit (Bld) [Volume fraction] 31.5 % Critically low 36.0-48.0 [facility] Comment on above: Performed By: #### C BC #### [facility] [address] [place] [address] Dr. Purvi Smith Hemoglobin (Bld) [Mass/Vol] 10.3 g/dL Critically low 12.0-16.0 [facility] Comment on above: Performed By: #### C BC #### [facility] [address] [place] [address] Dr. Purvi Smith IG # 0.04 10e3/ul Critically high 0.00-0.03 [facility] Comment on above: Performed By: #### C BC #### [facility] [address] [place] [address] Dr. Purvi Smith IG % 0.4 % Normal 0.0-0.5 [facility] Comment on above: Performed By: #### C BC #### [facility] [facility] [address] [place] [address] Dr. Purvi Smith LYMPH # 2.3 103/ul Normal 1.2-3.8 [facility] Comment on above: Performed By: #### C BC #### [facility] [address] [place] [address] Dr. Purvi Smith Lymphocytes/100 WBC (Bld) 21.5 % Normal 20.5-60.0 [facility] Comment on above: Performed By: #### C BC #### [facility] [address] [place] [address] Dr. Purvi Smith MANUAL DIFF REQ NO Normal [facility] Comment on above: Performed By: #### C BC #### [facility] [address] [place] [address] Dr. Purvi Smith MCH (RBC) [Entitic mass] 30.2 pg Normal 26.7-34.0 [facility] Comment on above: Performed By: #### C BC #### [facility] [address] [address] [address] Purvi Smith MCHC (RBC) [Mass/Vol] 32.7 g/dL Normal 29.9-35.2 [facility] Comment on above: Performed By: #### C BC #### [facility] [address] [address] [address] Purvi Smith MCV (RBC) [Entitic vol] 92.4 fL Normal 81.0-99.0 [facility] Comment on above: Performed By: #### C BC #### [facility] [address] [address] [address] Purvi Smith MONO # 0.9 103/ul Critically high 0.3-0.8 [facility] Comment on above: Performed By: #### C BC #### [facility] [address] [place] [address] Dr. Purvi Smith Monocytes/100 WBC (Bld) 8.4 % Normal 1.7-12.0 [facility] Comment on above: Performed By: #### C BC #### [facility] [address] [place] [address] Dr. Purvi Smith NEUT # 7.3 103/ul Critically high 1.4-6.5 [facility] Comment on above: Performed By: #### C BC #### [facility] [address] [place] [address] Dr. Purvi Smith Neutrophils/100 WBC (Bld) 67.5 % Normal 43.0-75.0 [facility] Comment on above: Performed By: #### C BC #### [facility] [address] [address] [address] Purvi Smith Platelet mean volume (Bld) [Entitic vol] 10.4 fL Normal 9.5-13.5 [facility] Comment on above: Performed By: #### C BC #### [facility] [address] [address] [address] Purvi Smith PLT 362 103/ul Normal 150-450 [facility] Comment on above: Performed By: #### C BC #### [facility] [address] [address] [address] Purvi Smith RBC 3.41 106/ul Critically low 4.20-5.40 [facility] Comment on above: Performed By: #### C BC #### [facility] [address] [address] [address] Purvi Smith WBC 10.8 103/ul Normal 4.0-11.0 [facility] Comment on above: Performed By: #### C BC #### [facility] [address] [place] [address] Dr. Purvi Smith PROF CHEM 8 (BAS METB)on Anion gap [Moles/Vol] 10.6 mmol/L Normal [facility] Comment on above: Performed By: #### B MP #### [facility] [address] [place] [address] Dr. Purvi Smith Calcium [Mass/Vol] 9.2 mg/dL Normal 8.4-10.2 [facility] Comment on above: Performed By: #### B MP #### [facility] [address] [place] [address] Dr. Purvi Smith Chloride [Moles/Vol] 103 mmol/L Normal 98-107 [facility] Comment on above: Performed By: #### B MP #### [facility] [address] [place] [address] Dr. Purvi Smith CO2 [Moles/Vol] 25.5 mmol/L Normal 22.0-30.[address] [facility] Comment on above: Performed By: #### B MP #### [facility] [address] [place] [address] Dr. Purvi Smith Creatinine [Mass/Vol] 0.61 mg/dL Normal 0.52-1.04 [facility] Comment on above: Performed By: #### B MP #### [facility] [address] [place] [address] Dr. Purvi Smith EGFR-AF IRANIAN >60 Normal >=[address] [facility] Comment on above: Performed By: #### B MP #### [facility] [address] [address] [address] Purvi Smith EGFR-NON AF IRANIAN >60 Normal >=60 [facility] Comment on above: Performed By: #### B MP #### [facility] [address] [address] [address] Purvi Smith Glucose [Mass/Vol] 80 mg/dL Normal 74-106 [facility] Comment on above: Performed By: #### B MP #### [facility] [address] [address] [address] Purvi Smith Potassium [Moles/Vol] 3.1 mmol/L Critically low 3.4-5.0 [facility] Comment on above: Performed By: #### B MP #### [facility] [address] [address] [address] Purvi Smith Sodium [Moles/Vol] 136 mmol/L Critically low 137-145 [facility] Comment on above: Performed By: #### B MP #### [facility] [address] [address] [address] Purvi Smith Urea nitrogen [Mass/Vol] 11.0 mg/dL Normal 7.0-17.0 [facility] Comment on above: Performed By: #### B MP #### [facility] [address] [place] [address] Dr. Purvi Smith Urea nitrogen/Creatinine [Mass ratio] 18.0 mg/mg Normal [facility] Comment on above: Performed By: #### B MP #### [facility] [address] [address] [address] Purvi Smith Vital Signs Date Time Vital Sign Value Performing Clinician Facility 06-23-2024 10:56-0500 Body mass index (BMI) [Ratio] 28.32 kg/m2 Sophia KYLE Work Phone: [facility] 06-23-2024 10:56-0500 Body weight 74.84 kg Sophia KYLE Work Phone: [facility] 06-23-2024 10:56-0500 Diastolic blood pressure 80 mm[Hg] Sophia KYEL Work Phone: [facility] 06-23-2024 10:56-0500 Systolic blood pressure 128 mm[Hg] Sophia Galo PA Work Phone: [facility] 06-09-2024 11:35-0500 Body mass index (BMI) [Ratio] 28.69 kg/m2 Shakir Steph DO Work Phone: [facility] 06-09-2024 11:35-0500 Body weight 75.81 kg Shakir Steph DO Work Phone: [facility] 06-09-2024 11:35-0500 Diastolic blood pressure 74 mm[Hg] Shakir Steph DO Work Phone: [facility] 06-09-2024 11:35-0500 Systolic blood pressure 114 mm[Hg] Shakir Steph DO Work Phone: [facility] 05-24-2024 13:21-0500 Body mass index (BMI) [Ratio] 28.63 kg/m2 Sophia Galo PA Work Phone: [facility] 05-24-2024 13:21-0500 Body weight 75.66 kg Sophia Iraj PA Work Phone: [facility] 05-24-2024 13:21-0500 Diastolic blood pressure 80 mm[Hg] Sophia Iraj PA Work Phone: [facility] 05-24-2024 13:21-0500 Systolic blood pressure 116 mm[Hg] Sophia Galo PA Work Phone: [facility] 05-10-2024 13:14-0500 Body mass index (BMI) [Ratio] 28.32 kg/m2 Shakir Steph DO Work Phone: [facility] 05-10-2024 13:14-0500 Body weight 74.84 kg Shakir Steph DO Work Phone: [facility] 05-10-2024 13:14-0500 Diastolic blood pressure 66 mm[Hg] Shakir Steph DO Work Phone: [facility] 05-10-2024 13:14-0500 Systolic blood pressure 106 mm[Hg] Shakir Steph DO Work Phone: [facility] 05-05-2024 10:30-0500 Body height 162.6 cm Ifrah Díaz MD Work Phone: [facility] 05-05-2024 10:30-0500 Body mass index (BMI) [Ratio] 28.21 kg/m2 Ifrah Díaz MD Work Phone: [facility] 05-05-2024 10:30-0500 Body weight 74.57 kg Ifrah Díaz MD Work Phone: [facility] 05-05-2024 10:30-0500 Diastolic blood pressure 68 mm[Hg] Ifrah Díaz MD Work Phone: [facility] 05-05-2024 10:30-0500 Heart rate 90 /min Ifrah Díaz MD Work Phone: [facility] 05-05-2024 10:30-0500 Systolic blood pressure 120 mm[Hg] Ifrah Díaz MD Work Phone: [facility] 04-12-2024 13:58-0500 Body mass index (BMI) [Ratio] 28.63 kg/m2 Sophia KYLE Work Phone: [facility] 04-12-2024 13:58-0500 Body weight 75.66 kg Sophia KYLE Work Phone: [facility] 04-12-2024 13:58-0500 Diastolic blood pressure 70 mm[Hg] Sophia KYLE Work Phone: [facility] 04-12-2024 13:58-0500 Systolic blood pressure 120 mm[Hg] Sophia Galo PA Work Phone: [facility] 03-15-2024 10:53-0400 Body mass index (BMI) [Ratio] 27.77 kg/m2 Shakir Steph DO Work Phone: [facility] 03-15-2024 10:53-0400 Body weight 73.39 kg Shakir Steph DO Work Phone: [facility] 03-15-2024 10:53-0400 Diastolic blood pressure 72 mm[Hg] Shakir Steph DO Work Phone: [facility] 03-15-2024 10:53-0400 Systolic blood pressure 110 mm[Hg] Shakir Steph DO Work Phone: [facility] 02-06-2024 15:11-0400 Diastolic blood pressure 63 mm[Hg] Stv 11 [facility] 02-06-2024 15:11-0400 Heart rate 89 /min Stv 11 [facility] 02-06-2024 15:11-0400 Systolic blood pressure 97 mm[Hg] Stv 11 [facility] 02-06-2024 14:22-0400 Respiratory rate 16 /min Stv 11 [facility] 01-29-2024 11:52-0400 Body mass index (BMI) [Ratio] 27.64 kg/m2 Shakir Steph DO Work Phone: [facility] 01-29-2024 11:52-0400 Body weight 73.03 kg Shakir Steph DO Work Phone: [facility] 01-29-2024 11:52-0400 Diastolic blood pressure 74 mm[Hg] Shakir Steph DO Work Phone: [facility] 01-29-2024 11:52-0400 Systolic blood pressure 112 mm[Hg] Shakir Steph DO Work Phone: [facility] Healthcare Encounters Encounter Date Encounter Type Care Provider Facility Start: 07-09-2024 End: 07-09-2024 Clinisync Result Encounter Sophia KYLE Work Phone: [facility] External Department Unsolicited Start: 07-09-2024 End: 07-09-2024 Clinisync Result Encounter Sophia KYLE Work Phone: [facility] External Department Unsolicited Start: 07-08-2024 End: 07-08-2024 ambulatory SHAKIR STEPH Not Available Start: 07-08-2024 End: 07-08-2024 Bamboo flowsheet Shakir Steph DO Work Phone: [facility] Start: 07-08-2024 End: 07-08-2024 Bamboo flowsheet Shakir Steph DO Work Phone: [facility] Start: 06-23-2024 End: 06-23-2024 Bamboo flowsheet Sophia KYLE Work Phone: [facility] Start: 06-23-2024 End: 06-23-2024 Bamboo flowsheet Sophia KYLE Work Phone: [facility] Start: 06-23-2024 End: 06-23-2024 Clinisync Result Encounter Shakir Steph DO Work Phone: [facility] External Department Unsolicited Start: 06-23-2024 End: 06-23-2024 Office outpatient visit 15 minutes Sophia KYLE Work Phone: [facility] Comment on above: Third trimester preg yenny; 33 weeks gestation of ; Urinary tract infection with hematuria, site unspecified Start: 06-23-2024 End: 06-23-2024 ambulatory SOPHIA GALO Not Available Start: 06-22-2024 End: 06-22-2024 ambulatory VINICIUS QUINTANA [facility] Start: 06-09-2024 End: 06-09-2024 Bamboo flowsheet Shakir Steph DO Work Phone: [facility] Start: 06-09-2024 End: 06-09-2024 Bamboo flowsheet Shakir Steph DO Work Phone: [facility] Start: 06-09-2024 End: 06-09-2024 ambulatory SHAKIR STEPH Not Available Start: 06-09-2024 End: 06-09-2024 Office outpatient visit 15 minutes Shakir Steph DO Work Phone: [facility] Comment on above: 31 weeks gestation o f ; Second trimester ; Right club foot; Premature uterine contractions, antepartum Start: 06-03-2024 End: 06-03-2024 ambulatory SHAKIR R STEPH [facility] Start: 05-24-2024 End: 05-24-2024 Bamboo flowsheet Sophia KYLE Work Phone: [facility] Start: 05-24-2024 End: 05-24-2024 Bamboo flowsheet Sophia KYLE Work Phone: [facility] Start: 05-24-2024 End: 05-24-2024 Office outpatient visit 15 minutes Sophia KYLE Work Phone: [facility] Comment on above: 29 weeks gestation o f ; Third trimester ; SGA (small for gestational age) Start: 05-24-2024 End: 05-24-2024 ambulatory SOPHIA GALO Not Available Start: 05-13-2024 End: 05-13-2024 ambulatory [facility] Start: 05-10-2024 End: 05-10-2024 Bamboo flowsheet Shakir Steph DO Work Phone: [facility] Start: 05-10-2024 End: 05-11-2024 Bamboo flowsheet Shakir Steph DO Work Phone: [facility] Start: 05-10-2024 End: 05-11-2024 External Result Encounter Shakir Steph DO Work Phone: [facility] External Department Unsolicited Start: 05-10-2024 End: 05-10-2024 Office outpatient visit 15 minutes Shakir Steph DO Work Phone: [facility] Comment on above: 27 weeks gestation o f ; Second trimester ; Urinary tract infection without hematuria, site unspecified Start: 05-10-2024 End: 05-10-2024 ambulatory SHAKIR STEPH Not Available Start: 05-05-2024 End: 05-05-2024 Office outpatient new 45 minutes Ifrah Díaz MD Work Phone: [facility] Comment on above: Club foot of fetus a ffecting antepartum care of mother, other fetus (Primary Dx); Placenta previa in second trimester; Suspected problem with placenta not found; History of delivery, currently ; History of drug overdose; History of placental abruption; Anxiety and depression; 26 weeks gestation of Start: 05-05-2024 End: 05-05-2024 Orders Only Lena Bucio INVESTMENT REPRESENTATIVE [facility] Comment on above: Club foot of fetus a ffecting antepartum care of mother, other fetus (Primary Dx); Placenta previa in second trimester; Suspected problem with placenta not found; History of delivery, currently ; History of drug overdose Start: 04-12-2024 End: 04-12-2024 Bamboo flowsheet Sophia KYLE Work Phone: [facility] Start: 04-12-2024 End: 04-12-2024 Bamboo flowsheet Sophia KYLE Work Phone: [facility] Start: 04-12-2024 End: 04-12-2024 Office outpatient visit 15 minutes Sophia KYLE Work Phone: [facility] Comment on above: Bacterial vaginosis (Primary Dx); 23 weeks gestation of ; Second trimester ; Diabetes mellitus screening Start: 04-12-2024 End: 04-12-2024 ambulatory SOPHIA GALO Not Available Start: 04-09-2024 End: 04-09-2024 ambulatory VINICIUS Huntley [facility] Start: 04-06-2024 End: 04-06-2024 Clinisync Result Encounter Shakir Steph DO Work Phone: [facility] External Department Unsolicited Start: 04-06-2024 End: 04-06-2024 Clinisync Result Encounter Shakir Steph DO Work Phone: [facility] External Department Unsolicited Start: 03-15-2024 End: 03-15-2024 Bamboo flowsheet Shakir Steph DO Work Phone: [facility] Start: 03-15-2024 End: 03-15-2024 Bamboo flowsheet Shakir Steph DO Work Phone: [facility] Start: 03-15-2024 End: 03-15-2024 Office outpatient visit 15 minutes Shakir Steph DO Work Phone: [facility] Comment on above: Second trimester pre gnancy; 17 weeks gestation of ; UTI symptoms Start: 03-15-2024 End: 03-15-2024 ambulatory SHAKIR STEPH Not Available Start: 02-26-2024 End: 02-26-2024 Emergency department patient [facility] Start: 02-06-2024 End: 02-06-2024 ambulatory [facility] Start: 02-06-2024 End: 02-06-2024 Subsequent hospital visit by physician Clarita Burt Med Onc Chair [facility] Comment on above: Iron deficiency anem ia, unspecified iron deficiency anemia type (Primary Dx) Start: 01-30-2024 End: 01-30-2024 ambulatory [facility] Start: 01-29-2024 End: 01-29-2024 Bamboo flowsheet Shakir Steph DO Work Phone: [facility] Start: 01-29-2024 End: 01-31-2024 Bamboo flowsheet Shakir Steph DO Work Phone: [facility] Start: 01-29-2024 End: 01-31-2024 External Result Encounter Shakir Steph DO Work Phone: [facility] External Department Unsolicited Start: 01-29-2024 End: 01-29-2024 ambulatory SHAKIR STEPH Not Available Start: 01-29-2024 End: 01-29-2024 Office outpatient visit 15 minutes Shakir Steph DO Work Phone: [facility] Comment on above: First trimester preg yenny; Nausea; Urinary tract infection without hematuria, site unspecified Start: 01-17-2024 End: 01-17-2024 Clinisync Result Encounter Shakir Steph DO Work Phone: [facility] External Department Unsolicited Start: 01-17-2024 End: 01-17-2024 Clinisync Result Encounter Shakir Choi DO Work Phone: [facility] External Department Unsolicited Start: 01-01-2024 End: 01-01-2024 ambulatory SOPHIA GALO Not Available Start: 12-20-2023 End: 12-20-2023 Emergency department patient visit VINICIUS Huntley [facility] Start: 12-05-2023 End: 12-05-2023 [facility] Start: 11-24-2023 End: 11-24-2023 Emergency department patient visit VINICIUS Huntley [facility] Start: 11-06-2023 End: 11-06-2023 ambulatory [facility] Start: 09-08-2023 End: 09-08-2023 Telephone encounter Amber Smith [facility] Comment on above: appointment due Start: 09-02-2023 End: 09-02-2023 ambulatory [facility] Start: 07-17-2023 End: 07-17-2023 Emergency department patient visit VINICIUS Huntley [facility] Start: 04-11-2023 End: 04-11-2023 ambulatory [facility] Start: 03-12-2023 ambulatory [facility] Start: 09-10-2021 End: 09-10-2021 Subsequent [...] Start: 06-23-2024 OB BPP W NON-STRESS Shakir Choi DO [...] stick/tabl et rgnt non-auto w/o micrscp Shakir Naqvio DO Work Phone: Start: 04-06-2024 [facility] UA (CLEAN/CATCH) 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 Shakir Choi DO Work Phone: Start: 04-06-2024 [facility] URINE MICROSCOPIC ONLY Shakir Naqvio DO Work [...] Adult depression scr eening assessment Amber Smith INVESTMENT REPRESENTATIVE Start: 08-21-2021 Microscopic observat ion [Identifier] in Cervix by Cyto stain Stv 3 Plan of Treatment Date Care Activity Detail Author Start: 05-05-2025 [facility] Start: 05-05-2025 Tobacco Screening Tobacco Screening [facility] [employer] Start: 05-05-2025 End: 05-05-2025 US MFM with or without consult US MFM with or without consult Imaging Routine 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, other fetus Placenta previa in second trimester Suspected problem with placenta not found History of delivery, currently History of drug overdose Expected: 05/05/2025 (Approximate), Expires: 05/05/2025 [employer] Work Phone: Comment on above: Expected: 05/05/2025 (Approximate), Expires: 05/05/2025 Start: 08-21-2024 Screening for malign ant neoplasm of cervix [facility] Start: 07-17-2024 Adult BMI Screening [facility] Start: 07-17-2024 Tobacco Screening Tobacco Screening [facility] [email or web address] [facility] Start: 07-15-2024 End: 07-15-2024 Patient encounter procedure 07/15/2024 11:20 AM EST Routine [facility] [address] [facility] [address] [address] Shakir Choi, DO [address] [place] [address] [facility] Start: 07-08-2024 End: 07-08-2024 Patient encounter procedure 07/08/2024 10:40 AM EST Routine [facility] [address] [place] [address] Shakir Choi, DO [address] [place] [address] [facility] Start: 06-23-2024 End: 06-23-2024 Patient encounter procedure [facility] Comment on above: Arrived Start: 06-12-2024 Respiratory Syncytia l Virus (RSV) or age 60 yrs+ (1 - Risk 1-dose series) Respiratory Syncytial Virus (RSV) or age 60 yrs+ (1 - Risk 1-dose series) [facility] Start: 06-09-2024 End: 06-09-2024 Patient encounter procedure 06/09/2024 11:20 AM EST Routine [facility] [address] [place] [address] Shakir Choi, DO [address] [place] [address] [facility] Start: 06-03-2024 End: 06-03-2024 Patient encounter procedure 06/03/2024 2:15 PM EST Appointment [facility] [address] [place] [address] [facility] Start: 05-24-2024 End: 05-24-2025 US biophysical profile w non stress test US biophysical profile w non stress test Imaging Routine 29 weeks gestation of Third trimester SGA (small for gestational age) Expected: 05/24/2024 (Approximate), Expires: 05/24/2025 [facility] Comment on above: Expected: 05/24/2024 (Approximate), Expires: [...] AM EST Routine [facility] [address] [facility] [address] [place] [address] Sophia Galo PA [address] [facility] [place] [address] [facility] Start: 04-12-2024 End: 04-12-2025 CBC panel - Blood by Automated count CBC Lab Routine Diabetes mellitus screening Expected: 04/12/2024 (Approximate), Expires: 04/12/2025 [facility] Healthcare Work Phone: Comment on above: Expected: 04/12/2024 (Approximate), Expires: 04/12/2025 Start: 04-12-2024 End: 04-12-2025 Measurement of glucose 1 hour after glucose challenge for glucose tolerance test Glucose tolerance, 1 hour Lab Routine Diabetes mellitus screening Expected: 04/12/2024 (Approximate), Expires: 04/12/2025 [facility] Comment on above: Expected: 04/12/2024 (Approximate), Expires: 04/12/2025 Start: 04-01-2024 End: 04-01-2024 Telemedicine consultation with patient 04/01/2024 4:00 PM EST Telemedicine [address] [id number] Jossue Swain MD [address] [place] [address] 3 month f/u [facility] Comment on above: 3 month f/u Start: 03-15-2024 End: 03-15-2024 Patient encounter procedure 03/15/2024 10:00 AM EDT Routine [facility] [address] [place] [id number] Shakir Choi, DO [address] [facility] [place] [address] Arrived [facility] Comment on above: Arrived Start: 02-26-2024 End: 02-26-2024 Patient encounter procedure 02/26/2024 9:40 AM EDT Routine [facility] [address] [place] [id number] Sophia Galo PA [address] [facility] [place] [address] [facility] Start: 01-29-2024 End: 01-29-2024 Patient encounter procedure 01/29/2024 10:40 AM EDT Routine [facility] [address] [place] [id number] Shakir Choi, DO [address] [place] [address] [facility] Start: 01-25-2024 COVID-19 Vaccine ( season) COVID-19 Vaccine ( season) [facility] Start: 01-25-2024 COVID-19 Vaccine ( season) COVID-19 Vaccine ( season) [facility] Start: 01-25-2024 Influenza vaccination P [facility] Start: 12-25-2023 Influenza vaccination Flu vaccine (# 1) [facility] Start: 04-25-2023 Depression Screening Depression Scre ening [facility] Start: 01-24-2023 COVID-19 Vaccine ( season) COVID-19 Vaccine ( season) [facility] Start: 11-11-2022 DTaP,Tdap and Td Vaccines (7 - Td or Tdap) DTaP,Tdap and Td Vaccines (7 - Td or Tdap) [facility] Start: 11-11-2022 DTaP/Tdap/Td vaccine (7 - Td or Tdap) DTaP/Tdap/Td vaccine (7 - Td or Tdap) [facility] Start: 2022 Screening for malign ant neoplasm of cervix [facility] Start: 01-24-2022 Influenza vaccination Flu vacc ine (Season Ended) [facility] Start: 10-01-2021 End: 10-01-2021 Patient encounter procedure 10/01/2021 Routine Obstetrics and Gynecology Kristel De Leon DO [address] [place] [address] [facility] Start: 09-04-2021 End: 09-04-2021 Patient encounter procedure 09/04/2021 Routine Obstetrics and Gynecology Anisha Lucas DO [address] [place], [place] [id number] [facility] Start: 01-24-2021 Influenza vaccination Flu vaccine (# 1) [facility] Start: 08-03-2019 Varicella vaccine (2 of 2 - 13+ 2-dose series) Varicella vaccine (2 of 2 - 13+ 2-dose series) [facility] Start: 07-28-2019 Hepatitis B vaccine (3 of 3 - 19+ 3-dose series) Hepatitis B vaccine (3 of 3 - 19+ 3-dose series) [facility] Start: 2013 Screening for malign ant neoplasm of cervix Pap smear [facility] Start: 09-21-2011 DTaP/Tdap/Td vaccine (1 - Tdap) DTaP/Tdap/Td vaccine (1 - Tdap) [facility] Start: 2010 Adult BMI Follow Up Plan Adult BMI Follow Up Plan [facility] Start: 2010 Hepatitis C screening Hepatitis C [facility] Start: 2004 Depression Screen Depression Screen [facility] Start: 1997 COVID-19 Vaccine (1) COVID-19 Vaccin e (1) [facility] Start: 1993 Varicella vaccine (1 of 2 - 2-dose childhood series) Varicella vaccine (1 of 2 - 2-dose childhood series) [facility] Start: 1992 Hepatitis C screening Hepatitis C [facility] Bacteria identified in Urine by Culture Urine culture Microbiology Routine UTI symptoms Ordered: 03/15/2024 [facility] Healthcare Work Phone: Comment on above: Ordered: 03/15/2024 Bacteria identified in Urine by Culture Urine culture Microbiology Routine 27 weeks gestation of Urinary tract infection without hematuria, site unspecified Ordered: 05/10/2024 [facility] Healthcare Work Phone: Comment on above: Ordered: 05/10/2024 Bacteria identified in Urine by Culture Urine culture Microbiology Routine Urinary tract infection without hematuria, site unspecified Ordered: 01/29/2024 [facility] Healthcare Work Phone: Comment on above: Ordered: 01/29/2024 Hemoglobin A1c/Hemoglobin.total in Blood Hemoglobin A1c Lab Routine 29 weeks gestation of Third trimester SGA (small for gestational age) Ordered: 05/24/2024 [facility] Healthcare Comment on above: Ordered: 05/24/2024 Immunizations Immunization Date Immunization Notes Care Provider Walter mahmood 08-06-2019 Influenza, injectabl e, Madin [place] Canine Kidney, preservative free, quadrivalent Amber Sarah [facility] 08-06-2019 influenza virus vaccine, unspecified formulation Amber Sarah [facility] 07-06-2019 tuberculin skin test ; purified protein derivative solution, intradermal Amber Smith [facility] 07-06-2019 varicella virus vaccine Amber Shannon moseley [facility] 03-01-2019 hepatitis B vaccine, adult dosage Amber Sarah [facility] 01-27-2019 hepatitis B vaccine, adult dosage Amber Sarah [facility] 11-11-2012 tetanus toxoid, redu lucrecia diphtheria toxoid, and acellular pertussis vaccine, adsorbed Amber [facility] 06-11-2012 influenza, seasonal, injectable Amber [facility] 01-01-2005 measles, mumps and rubella virus vaccine [facility] 01-01-2005 poliovirus vaccine, inactivated [facility] 01-01-2005 TD(adult) unspecifie d formulation [facility] 05-02-1995 diphtheria, tetanus toxoids and acellular pertussis vaccine, unspecified formulation [facility] 03-22-1994 diphtheria, tetanus toxoids and acellular pertussis vaccine, unspecified formulation [facility] 03-22-1994 haemophilus influenz ae type b vaccine, conjugate unspecified formulation [facility] 03-22-1994 measles, mumps and rubella virus vaccine [facility] 03-22-1994 poliovirus vaccine, unspecified formulation [facility] 07-27-1993 diphtheria, tetanus toxoids and acellular pertussis vaccine, unspecified formulation [facility] 07-27-1993 haemophilus influenz ae type b vaccine, conjugate unspecified formulation [facility] 07-27-1993 hepatitis B vaccine, pediatric or pediatric/adolescent dosage [facility] poliovirus vaccine, unspecified formulation Amber [facility] 1992 diphtheria, tetanus toxoids and acellular pertussis vaccine, unspecified formulation [facility] 1992 haemophilus influenz ae type b vaccine, conjugate unspecified formulation [facility] 1992 hepatitis B vaccine, pediatric or pediatric/adolescent dosage [facility] poliovirus vaccine, unspecified formulation [facility] 1992 hepatitis B vaccine, pediatric or pediatric/adolescent dosage [facility] Payers Date Payer Category Payer Medicaid (Managed Care) [facility] MEDICAID [id number] 2003 Medicaid [id number] 2003 Medicaid [place] MED[place] [id number] 1992 Unknown [id number] 2..840.1.761432.3.579.2. 593 1992 Unknown [id number] 2.16840.1.817166.3.579.2. 593 1992 Unknown [id number] 2.16840.1.075051.3.579.2. 59 1992 Unknown [id number] 2.16840.1.151193.3.579.2. 593 1992 Unknown [id number] 2.16.840.1.801578.3.579.2. 59 1992 Unknown [id number] 2.16.840.1.625252.3.579.2. 93 1992 Unknown [id number] 2.16.840.1.447115.3.579.2. 177 1992 Unknown [id number] 2.16.840.1.874235.3.579.2. 175 1992 Unknown [id number] 2.16.840.1.952533.3.579.2. 175 1992 Unknown [id number] 2.16840.1.889325.3.579.2. 175 1992 Unknown [id number] 2.16840.1.883244.3.579.2. 175 1992 Unknown [id number] 2.16840.1.894013.3.579.2. 175 1992 Unknown [id number] 2.840.1.501920.3.579.2. 1285 1992 Unknown [id number] 2.840.1.079322.3.579.2. 1285 1992 Unknown [id number] 2.16840.1.565019.3.579.2. 1285 1992 Unknown [id number] 2.16840.1.110809.3.579.2. 128 1992 Unknown [id number] 2.16840.1.240112.3.579.2. 1285 1992 Unknown [id number] 2.16840.1.930962.3.579.2. 128 1992 Unknown [id number] 2.16840.1.632005.3.579.2. 1285 1992 Unknown [id number] 2.16840.1.891117.3.579.2. 1285 1992 Unknown [id number] 2.16840.1.683847.3.579.2. 128 1992 Unknown [id number] 2.16.840.1.872128.3.579.2. 1285 1992 Unknown [id number] 2.16.840.1.561910.3.579.2. 1258 1992 Unknown [id number] 2.16.840.1.817187.3.579.2. 1258 1992 Unknown [id number] 2.16.840.1.825012.3.579.2. 1258 1992 Unknown [id number] 2.16.840.1.856471.3.579.2. 1258 1992 Unknown [id number] 2.16.840.1.643599.3.579.2. 1258 1992 Unknown [id number] 2.16.840.1.884733.3.579.2. 1258 1992 Unknown [id number] 2.16.840.1.226406.3.579.2. 1258 1992 Unknown [id number] 2.16.840.1.548975.3.579.2. 1258 1992 Unknown [id number] 2.16.840.1.841823.3.579.2. 1259 1959 Self-pay [id number] 1959 Unknown [id number] Unknown [id number] 2.16.840.1.029571.3.579.2. 593 Social History Date Type Detail Facility Start: 06-23-2012 End: 01-01-2024 Tobacco smoking status WIIS Never smoked tobacco [facility] Phone: Start: 06-23-2012 End: 01-01-2024 Tobacco use and exposure Smokeless tobacco non-user [facility] Phone: Start: 08-21-2021 End: 06-09-2024 Alcohol intake Lifetime non-drinker (finding) [facility] Phone: Start: 08-21-2021 History SDOH Alcohol Frequency 1 [facility] Work Phone: Start: 02-16-2021 [facility] Work Phone: Start: 1990 Sex Assigned At Not on file [facility] Start: 09-01-2021 End: 09-04-2021 Tobacco smoking status [facility] Start: 09-04-2021 End: 12-05-2023 Alcohol intake [facility]-dr[facility] (finding) [facility] Start: 07-06-2020 End: 01-01-2024 History of Social function [facility] Start: 07-06-2020 End: 01-01-2024 Tobacco use panel [facility] Start: 1992 Sex assigned at Female [facility] History of tobacco use Current smoker [employer] [facility] Has the [employer], or [employer] threatened to shut off services in your home in past 12Mo No [facility] How hard is it for y ou to pay for the very basics like food, housing, medical care, and heating Not hard at all [facility] The thought of antoninaejff jeronimo myself has occurred to me Never [facility] Start: 05-01-2018 Alcohol Comment once a month / couple glasses of wine [facility] Start: 12-29-2014 Sex Female (finding) [facility] Start: 07-17-2023 Alcoholic beverage intake Current drinker of alcohol (finding) [facility] Goals Date Patient Goal Desired Activity /State Personal health goal Clinical Notes 09-08-2023 to 06-23-2024 ANABELLA Gleason - 06/23/2024 10:40 AM Jenelle Nunez LPN - 06/09/2024 11:20 AM ANABELLA Geller - 05/24/2024 1:20 PM Jenelle Nunez LPN - 05/10/2024 1:10 PM ANABELLA Geller - 04/12/2024 1:20 PM EST Note Date & Type Note Facility 01-29-2025 History of Presen t illness Narrative Reason [...] of Onset Diabetes Mother Colette Hypertension Mother Cloette Heart disease Father Kwan Heart failure Father [...] having contractions on 06/20/2024 and went to [facility] for evaluation pt states she was given IV fluids and the contractions went away. On 06/22/2024 pt states she went to [facility] due to contractions again @ 7-10 mins [...] of: ANABELLA Gleason documented in this encounter [facility] 06-09-2024 History of Presen t illness [...] nursing note reviewed. Exam conducted with a back tacker present. Vitals: Estimated body mass index is [...] Shakir Choi DO documented in this encounter [facility] 05-24-2024 History of Presen t illness [...] Date Anxiety Asthma (CMS/HCC) Chlamydia Depression ([facility]) History of miscarriage Iron deficiency anemia SAB (spontaneous ) UTI (urinary tract infection) HISTORY PAST MEDICAL HISTORY SOCIAL HISTORY Past Medical History: Diagnosis Date Anxiety Asthma (CMS/HCC) Chlamydia Depression ([facility]) History of miscarriage Iron deficiency [...] was seen and admitted to hospital in [place] when she was on ejane stating they had to give her medications [...] of: ANABELLA Gleason documented in this encounter [facility] 05-10-2024 History of Presen t illness [...] Medical History: Diagnosis Date Anxiety Asthma ([facility]) Chlamydia Depression ([facility]) History of miscarriage Iron deficiency anemia SAB (spontaneous ) UTI (urinary tract infection) HISTORY PAST MEDICAL HISTORY SOCIAL HISTORY Past Medical History: Diagnosis Date Anxiety Asthma (CMS/HCC) Chlamydia Depression ([facility]) History of miscarriage Iron deficiency [...] nursing note reviewed. Exam conducted with a back tacker present. Vitals: Estimated body mass index is [...] a day. Is doing growth ultrasounds at [employer] on 06/03/ will start here after, NST/BPP at 32 weeks. Rx for macrobid faxed to pharmacy. Orders Placed This Encounter Procedures Urine culture POCT urinalysis dipstick manually resulted Follow Up: Patient is to return to office in 2 week for routine OB appointment. Documented by Ct Nunez LPN on behalf of: Sophia Galo PA-C documented in this encounter [facility] 05-05-2024 History of Presen t illness [...] female Have you been seen here at [facility] in a previous ? Yes Recent ER visits or hospitalizations? Yes , spotting Bring blood sugar log or meter with you today? (Please bring them with you for every visit at [facility]) n/a Flu vaccine (Mar-July)? No Any [...] No focal deficits Assessment/Plan 33 y.o. @ w4d here for consultation regardin. Club foot of [...] also discussed pediatric orthopedic follow-up postnatally. Ct care process manager met with the patient after the [...] Follow-up with Pediatric Orthopedic surgery postnatally. Ct care process manager met with the patient today. Plan reviewed with patient. She vocalized understanding all questions answered. The patient is to continue with routine care in your office [facility], the CDC, and other organizations representing maternal and public health professionals recommend that , , and lactating people and those considering receive the COVID-19 vaccination. Vaccination is the best method to reduce maternal and complications of SARS-CoV-2 infection. This document was created with [employer] technology. Though I make every effort to review the dictation as it is transcribed, on occasion the spoken word can be misinterpreted by the technology leading to inappropriate words, phrases, or sentences. This note is addressed to the requesting provider as a consultation for clinical guidance. Specific medical abbreviations are occasionally used and those are generally approved by the [place]?Board of?Obstetrics and?Gynecology?as well as?Kenna s abbreviations. The above plan of care was based solely on the diagnoses for which a consultation was requested. ?More frequent testing may be indicated based on her other medical/obstetrical conditions. The management of other or medical conditions is beyond the scope of requested consultation and will continue to be followed by the primary process control tech or primary care provider. Thank you [...] procedures Referring and communicating with other health medicare nurse (not separately reported) Documenting clinical information in the electronic or other health record Independently interpreting results (not separately reported) and communicating results to the patient/family/caregiver Care coordination (not separately reported) documented in this encounter [employer] 04-12-2024 History of Presen t illness Narrative [...] Medical History: Diagnosis Date Anxiety Asthma ([facility]) Chlamydia Depression ([facility]) History of miscarriage Iron deficiency anemia SAB (spontaneous ) UTI (urinary tract infection) HISTORY PAST MEDICAL HISTORY SOCIAL HISTORY Past Medical History: Diagnosis Date Anxiety Asthma ([facility]) Chlamydia Depression ([facility]) History of miscarriage Iron deficiency [...] of: ANABELLA Gleason documented in this encounter [facility] 03-15-2024 History of Presen t illness [...] Medical History: Diagnosis Date Anxiety Asthma ([facility]) Chlamydia Depression ([facility]) History of miscarriage Iron deficiency anemia SAB (spontaneous ) UTI (urinary tract infection) HISTORY PAST MEDICAL HISTORY SOCIAL HISTORY Past Medical History: Diagnosis Date Anxiety Asthma ([facility]) Chlamydia Depression ([facility]) History of miscarriage Iron deficiency [...] nursing note reviewed. Exam conducted with a back tacker present. Vitals: Estimated body mass index is [...] Shakir Choi DO documented in this encounter [facility] 02-06-2024 History of Presen t illness Narrative Pt here for Feraheme infusion. Infusion complete without incident. Pt d/c'd in stable condition. Returns 04-01-24 for f/u. documented in this encounter [facility] 01-29-2024 History of Presen t [...] Medical History: Diagnosis Date Anxiety Asthma ([facility]) Chlamydia Depression ([facility]) History of miscarriage Iron deficiency anemia SAB (spontaneous ) UTI (urinary tract infection) HISTORY PAST MEDICAL HISTORY SOCIAL HISTORY Past Medical History: Diagnosis Date Anxiety Asthma ([facility]) Chlamydia Depression ([facility]) History of miscarriage Iron deficiency [...] nursing note reviewed. Exam conducted with a back tacker present. Vitals: Estimated body mass index is [...] or undercooked meat, and [facility] Patient has been consulted regarding any [...] Shakir Choi DO documented in this encounter [facility] 09-08-2023 Miscellaneous Notes Care Coordination Outreach performed to coordinate overdue appointments, testing, and/or follow-up care: Yes Audit/Outreach Date: September 08, 2023 Reason: Well Person Method: Telephone and MyChart Outreach Attempt: First Outcome: Left Message Next PCP Appointment: N/A Tests/Referrals Pended: N/A Resources/Education Provided: Additional Comments: documented in this encounter [facility] 09-08-2023 Telephone encounter Note Care Coordination Outreach performed to coordinate overdue appointments, testing, and/or follow-up care: Yes Audit/Outreach Date: September 08, 2023 Reason: Well Person Method: Telephone and MyChart Outreach Attempt: First Outcome: Left Message Next PCP Appointment: N/A Tests/Referrals Pended: N/A Resources/Education Provided: Additional Comments: [facility] Evaluation note Diagnosis Second trimester state, incidental 17 weeks gestation of UTI symptoms documented in this encounter [facility] note* Diagnosis Bacterial vaginosis- Primary Unspecified [...] of drug overdose [facility] Diagnosis 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, other fetus- Primary Placenta previa in second trimester Suspected problem with placenta not found Suspected placental problem not found History of delivery, currently with history of pre-term labor History of drug overdose History of placental abruption Anxiety and depression 26 weeks gestation of documented in this [facility] Diagnosis 27 weeks gestation of Second trimester state, incidental Urinary tract infection without hematuria, site unspecified [facility] Diagnosis First trimester state, incidental Nausea Nausea alone Urinary tract infection without hematuria, site unspecified [facility] Diagnosis 29 weeks gestation of Third trimester state, incidental SGA (small for gestational age) Jnhrv-[id number] without mention of malnutrition, unspecified (weight) [facility]* Diagnosis 31 weeks gestation of Second trimester state, incidental Right club foot Premature uterine contractions, antepartum Unspecified abnormality of labor, antepartum [facility]* Diagnosis Iron deficiency anemia, unspecified iron deficiency anemia type- Primary [facility] Diagnosis Third trimester state, incidental 33 weeks gestation of Urinary tract infection with hematuria, site unspecified documented in this encounter [facility] HealthcareInstructionsNot on filedocumented in this encounterProMedica Health SystemInstructionsNot on filedocumented in this encounterProMediCincinnati [facility] SystemInstructionsNot on filedocumented in this encounterProTanner Medical [facility] SystemReason for visit Narrative* Treatment Plan and Therapy Plan (Routine) - Authorized Specialty Diagnoses / Procedures Referred By Contac t Referred To Contact Diagnoses Iron deficiency anemia, unspecified iron deficiency anemia type Procedures LA FERUMOXYTOL, NON-ESRD Sherif-Jossue Cantrell MD [address] [place] [address] [facility] [address] [place] [address] Referral ID Status Reason Start Date Expiration Date V isits Requested Visits Authorized [id number] Authorized 01/14/2024 04/15/2024 10 10 [facility] Summary Purpose Family History No Family History Records FoundNo Family History Records FoundNo Family History Records FoundNo Family History Records FoundNo Family History Records FoundNo Family History Records FoundNo Family History Records Found Advance Directives No Advanced Directives Records FoundDocuments on File Type Date Recorded Patient Doughnut Glazier Expl anation ACP-Advance Directive ACP-Power of Spindle Carver Date Activated Date Inactivated Comments 04/09/2024 7:33 [...] content) DATE CREATED AUTHOR 08/08/2021 [facility] DATE CREATED AUTHOR AUTHOR'S ORGANIZ ATION 03/23/2023 [facility] DATE CREATED AUTHOR AUTHOR'S ORGANIZ ATION 12/11/2023 [facility] DATE CREATED AUTHOR AUTHOR'S ORGANIZ ATION 02/08/2024 [facility] DATE CREATED AUTHOR AUTHOR'S ORGANIZ ATION 06/08/2024 [facility] DATE CREATED AUTHOR AUTHOR'S ORGANIZ ATION 06/24/2024 [facility] DATE CREATED AUTHOR AUTHOR'S ORGANIZ ATION 07/10/2024 [facility] EPIC Care Teams (unrecognized sec tion and content) Layout Artist Relationship Specialty Start Date End Date Benson Dial MD PCP - General 10/08/12 Layout Artist Relationship Specialty Start Date End Date Benson Dial MD PCP - General 10/08/12 Layout Artist Relationship Specialty Start Date End Date Vinicius Quintana MD [address] [place] [address] PCP - [facility] 03/03/23 Layout Artist Relationship Specialty Start Date End Date Vinicius Quintana MD [address] [place] [address] PCP - [facility] 03/03/23 Layout Artist Relationship Specialty Start Date End Date Vinicius Quintana MD [address] [place] [address] PCP - [facility] 03/03/23 Layout Artist Relationship Specialty Start Date End Date Vinicius Quintana MD [address] [place] [address] PCP - [facility] 03/03/23 Layout Artist Relationship Specialty Start Date End Date Vinicius Quintana MD [address] [place] [address] PCP - [facility] 03/03/23 Layout Artist Relationship Specialty Start Date End Date Vinicius Quintana MD [address] [place] [address] PCP - [facility] 03/01/17 Layout Artist Relationship Specialty Start Date End Date Vinicius Quintana MD [address] [place] [address] PCP - [facility] 03/01/17 Layout Artist Relationship Specialty Start Date End Date Vinicius Quintana MD [address] [place] [address] PCP - General Family Medicine 03/03/23 Layout Artist Relationship Specialty Start Date End Date Vinicius Quintana MD [address] [place] [address] PCP - General Family Medicine 03/03/23 Layout Artist Relationship Specialty Start Date End Date Vinicius Quintana MD [address] [place] [address] PCP - General Family Medicine 03/03/23 Layout Artist Relationship Specialty Start Date End Date Vinicius Quintana MD [address] [place] [address] PCP - General Family Medicine 03/03/23 Layout Artist Relationship Specialty Start Date End Date Vinicius Quintana MD [address] [place] [address] PCP - General Family Medicine 03/03/23 Layout Artist Relationship Specialty Start Date End Date Vinicius Quintana MD [address] [place] [address] PCP - General Family Medicine 03/03/23 Layout Artist Relationship Specialty Start Date End Date Benson Dial MD PCP - General 10/08/12 Layout Artist Relationship Specialty Start Date End Date Vinicius Quintana MD [address] [place] [address] PCP - General Family Medicine 03/01/17 Layout Artist Relationship Specialty Start Date End Date Vinicius Quintana MD [address] [place] [address] PCP - General Family Medicine 03/03/23 Layout Artist Relationship Specialty Start Date End Date Vinicius Quintana MD [address] [place] [address] PCP - General Family Medicine 03/03/23 Reason [...] BE BASED ON THE PRIMARY CLINICAL RECORDS. [employer] provides no warranty or guarantee of the accuracy or completeness of information in this document.
[2024-07-11 00:19] LABS: Bilirubin Urine NEGATIVE (NEGATIVE); Blood Urine NEGATIVE (NEGATIVE); Clarity Urine CLEAR (CLEAR); Color Urine YELLOW (YELLOW); Glucose Urine UA NEGATIVE (NEGATIVE); Ketones Urine NEGATIVE (NEGATIVE); Leukocyte Esterase Urine TRACE (NEGATIVE); Nitrite Urine NEGATIVE (NEGATIVE); Protein Urine NEGATIVE (NEG/TRACE); Specific Gravity Urine 1.015 (1.005-1.025); Urobilinogen Urine 0.2 EU/dL (0.2-1.0); pH Urine 6.5 (5.0-9.0)
[2024-07-11 00:21] LABS: Urine Microscopic Indicated YES
[2024-07-11 00:30] LABS: Bacteria Urine TRACE #/HPF (NONE SEEN); Cast Seen? NONE SEEN #/LPF (NONE SEEN); Crystals Seen? None Seen #/HPF (None Seen); Mucus Urine SMALL (NONE SEEN); RBC Urine 0-2 #/HPF (0-2); Squamous Epithelial Cell Urine MODERATE #/LPF (NONE/RARE); WBC Urine 0-2 #/HPF (NONE SEEN)
[2024-07-11 00:32] VITALS: BP 111/65; PULSE 69
[2024-07-11] MEDS: FLUCONAZOLE 150 MG TABLET PO (01:43)
== END 2024-07-11 02:08 | disposition home or self-care (01) ==
PROVIDERS: Admitting Provider Obstetrics & Gynecology; PCP Family Medicine; Visit Provider Obstetrics & Gynecology
DX: O47.03 False labor before 37 completed weeks of gestation, third trimester (principal); O99.891 Other specified diseases and conditions complicating pregnancy; O16.3 Unspecified maternal hypertension, third trimester; Z3A.36 36 weeks gestation of pregnancy; R10.9 Unspecified abdominal pain
CPT/HCPCS: 59025; 76818; 81001; 81003; G0378; G0379

== ENCOUNTER 2024-07-13 00:55 | Outpatient (OUT) | payer OTHER, SELFPAY ==
--- OUTSIDE RECORDS SUMMARY | 2024-07-13 01:00 | XMS_ITS | CCD ---
Author Organization [facility] Care Team Providers Care Assistant Family Teacher Name Role Phone STEPH, DR MURO Admitting [...] Referring Unavailable OBAYUWANA, ALPHONSUS Primary Care Unavailable TRUPTI-HAYDE, MOHAMMAD A Referring Unavailable OBAYUWANA, ALPHONSUS Primary [...] ATWOOD, Benson Primary Care Provider Un available MEADRDO, VINICIUS Huntley. Primary Care Unavailable KARENA FLYNN [...] Active busPIRone hydrochloride 15 mg oral tablet (5 sources) Start: 02-27-2023 take 1 tablet by [...] Local Anesthetic Start: 03-10-2023 lidocaine-EPINEPHr ine 1 %-1:[id number] injection 1 mL ferrous sulfate 325 mg [...] order) ondansetron 4 mg disintegrating oral tablet (11 sources) Serotonin-3 Receptor Antagonist Start: 01-07-2024 End: [...] 05/24/2024 Discontinued ibuprofen 800 mg oral tablet (3 sources) Nonsteroidal Anti-inflammatory Drug Start: 07-17-2023 End: [...] Abdominal pain Onset: 02-26-2024 Episodic Anxiety disorders (6 sources) Anxiety; Translations: [Anxiety disorder, unspecified] Onset: 01-18-2018 01-18-2018 Chronic Cardiac and circulatory congenital anomalies (7 sources) Congenital heart disease; Translations: [Congenital malformation of heart, unspecified] Onset: 08-21-2021 08-21-2021 Chronic Deficiency and other anemia (1 source) Anemia, unspecified; Translations: [Anemia, unspecified] Onset: 12-05-2023 Episodic Deficiency and other anemia (1 source) Iron deficiency anemia, unspecified; Translations: [Iron deficiency anemia, unspecified] Onset: 12-05-2023 Episodic Early or threatened labor (7 sources) labor in third trimester with delivery [...] Translations: [Acute vaginitis] 04-12-2024 Episodic Mood disorders (8 sources) Depressive disorder; Translations: [Depressive disorder] Onset: 05-02-2018 Resolved: 08-27-2021 08-27-2021 Chronic Mood disorders (5 sources) Mood disorders; Translations: [Depression, unspecified] Onset: [...] feet] 06-09-2024 Chronic Other female genital disorders (10 sources) H/O: premature delivery; Translations: [Personal history of pre-term labor] Onset: 08-20-2021 Resolved: 11-08-2021 08-20-2021 Episodic Other gastrointestinal disorders (5 sources) Malabsorption - iron; Translations: [Intestinal malabsorption, [...] of ] 05-05-2024 Episodic Residual codes; unclassified (17 sources) Gestation period, 27 weeks; Translations: [27 [...] of ] 06-23-2024 Episodic Residual codes; unclassified (2 sources) Gestation period, 35 weeks; Translations: [35 weeks gestation of ] Onset: 07-08-2024 07-08-2024 Episodic Short gestation; low weight; and growth retardation (1 source) Oaate-jkg-bvubp baby; Translations: [ small for gestational age, [...] source) Cold Like Symptoms Onset: 07-17-2023 Unclassified (3 sources) OB Reminders Onset: 07-08-2024 07-08-2024 Urinary tract infections (6 sources) Urinary tract infectious disease; Translations: [Urinary tract infection, site not specified] 05-10-2024 Episodic Past or Other Problems Problem Classification Problem Date Documented Date Episodic/Chronic Deficiency and other anemia (4 sources) Iron deficiency anemia secondary to inadequate [...] respiratory manifestations] Onset: 07-17-2023 Episodic Menstrual disorders (8 sources) Irregular menstruation, unspecified; Translations: [Amenorrhea] Onset: 05-01-2017 Resolved: 12-04-2017 Chronic Nausea and vomiting (7 sources) Nausea with vomiting, unspecified; Translations: [Nausea] Onset: 03-16-2021 Episodic Neoplasms of unspecified nature or uncertain behavior (1 source) Thrombocytosis; Translations: [Thrombocytosis] Onset: 01-02-2024 01-02-2024 Episodic Other aftercare (1 source) Other machine long goods helper (current) drug therapy; Translations: [Other machine long goods helper (current) drug therapy] Onset: 11-06-2023 Episodic Other complications of (5 sources) Anemia in mother complicating , childbirth [...] Onset: 06-24-2012 08-21-2021 Episodic Other complications of (7 sources) Hereditary disease in family possibly affecting [...] Resolved: 10-02-2021 10-02-2021 Episodic Other complications of (4 sources) High risk ; Translations: [Supervision of with other poor reproductive or obstetric history, first trimester] Onset: 11-03-2017 Resolved: 08-27-2021 08-27-2021 Episodic Other complications of (4 sources) Urinary tract infection in ; Translations: [Unspecified infection of urinary tract in , second trimester] Onset: 02-09-2018 Resolved: 11-08-2021 11-08-2021 Episodic Other complications of (4 sources) Abdominal pain in ; Translations: [Other specified related conditions, unspecified trimester] Onset: 02-09-2018 Resolved: 08-27-2021 08-27-2021 Episodic Other complications of (4 sources) Finding of heart rate; Translations: [Maternal care for abnormalities of the heart rate or rhythm, unspecified trimester, not applicable or unspecified] Onset: 09-01-2021 Resolved: 09-11-2021 09-11-2021 Episodic Other complications of (4 sources) Chlamydia trachomatis infection in ; Translations: [Other maternal infectious and parasitic diseases complicating , second trimester] Onset: 09-11-2021 Resolved: 11-08-2021 11-08-2021 Episodic Other complications of (4 sources) Trichomonal vaginitis in ; Translations: [Infection [...] Onset: 10-19-2021 10-19-2021 Episodic Other complications of (2 sources) Nausea and vomiting; Translations: [Vomiting of , [...] Onset: 07-17-2023 Episodic Poisoning by psychotropic agents (4 sources) Selective serotonin re-uptake inhibitor overdose; Translations: [...] Test Name Value Interpretation Reference Range Facility [facility] UA (CLEAN/CATCH) ARTIFICIAL PEARL MAKER/ZHOU RO IF IND.on 07-11-2024 BILIRUBIN URINE Negative NEGATIVE [facility] BLOOD URINE Negative NEGATIVE [facility] Clarity (U) CLEAR [facility] Color (U) [facility]LLOW [facility] UA Negative NEGATIVE mg/dL [facility] Interpretation and review of laboratory results Abnormal [facility] Ketones Ql (U) Negative NEGATIVE mg/dL [facility] Leukocyte esterase Test strip Ql (U) TRACE Abnormal NEGATIVE [facility] NITRITE URINE Negative NEGATIVE [facility] pH (U) 6.5 [pH] 5.0 - 9.0 [facility] PROTEIN URINE Negative NEG/TRACE mg/dL [facility] SPECIFIC GRAVITY URINE 1.015 1.005 - 1.025 [facility] URINE MICROSCOPIC INDICATED YES [facility] UROBILINOGEN URINE 0.2 EU/dL 0.2 - 1.0 EU/dL [facility] US OB BPP W NON-STRESS on 07-09-2024 [place] [address] Ultrasound Report Signed Patient: HOMERO DE LEON MR#: [id number] : 1990 Acct:[id number] Age/Sex: 33 / F ADM Date: 07/09/24 Loc: US Attending Dr: Sophia Galo Ordering Physician: Sophia Galo Date of Service: 07/09/24 Procedure(s): US OB BPP w non-stress Accession Number(s): [id number] cc: Sophia Galo; VINICIUS QUINTANA [address] [address] Patient Name: HOMERO DE LEON MRN: [facility]:[id number] date: 1990 Sex: F Assigned Patient Location: US Current Patient Location: Accession/Order Number: [id number] Exam Date: 07/09/2024 10:09 Report Date: 07/09/2024 [...] Signed By: 07/09/24 1407 DD/ 04 TD/TT: Associate Dentist: [facility] Radiology, Radiologist, - 07/09/2024 [place] [address] Ultrasound Report Signed Patient: HOMERO DE LEON MR#: [id number] : 1990 Acct:[id number] Age/Sex: 33 / F ADM Date: 07/09/24 Loc: US Attending Dr: Sophia Galo Ordering Physician: Sophia Galo Date of Service: 07/09/24 Procedure(s): US OB BPP w non-stress Accession Number(s): [id number] cc: Sophia Galo; VINICIUS QUINTANA [place] [id number] Patient Name: HOMERO DE LEON MRN: [facility]:[id number] date: 1990 Sex: F Assigned Patient Location: US Current Patient Location: Accession/Order Number: [id number] Exam Date: 07/09/2024 10:09 Report Date: 07/09/2024 [...] M.D. Signed By: 07/09/241406 DD/ 04 TD/TT: Associate Dentist: [facility] Radiology Study observation (narrative) [facility] US OB BPP W NON-STRESS Ordered By: Radiologist Radiology on 07-09-2024 [facility] Work Phone: US OB BPP W NON-STRESS on 06-23-2024 [place] [address] Ultrasound Report Signed Patient: HOMERO DE LEON MR#: [id number] : 1990 Acct:[id number] Age/Sex: 33 / F ADM Date: Loc: [facility] 251-[address]: Shakir Choi D.O. Ordering Physician: Shakir Choi D.O. Date of Service: 06/23/24 Procedure(s): US OB BPP w non-stress Accession Number(s): [id number] cc: VINICIUS QUINTANA ; Shakir Choi D.O. [place] [id number] Patient Name: HOMERO DE LEON MRN: [id number] date: 1990 Sex: F Assigned Patient Location: [facility] Current Patient Location: [facility] Accession/Order Number: [id number] Exam Date: 06/23/2024 14:01 Report Date: 06/23/2024 [...] Signed By: 06/23/24 1430 DD/ 1427 TD/TT: Associate Dentist: [facility] Radiology, Radiologist, MD - 06/23/2024 [place] [address] Ultrasound Report Signed Patient: HOMERO DE LEON MR#: [id number] : 1990 Acct:[id number] Age/Sex: 33 / F ADM Date: Loc: [facility] 251-[address]: Shakir Choi D.O. Ordering Physician: Shakir Choi D.O. Date of Service: 06/23/24 Procedure(s): US OB BPP w non-stress Accession Number(s): [id number] cc: VINICIUS QUINTANA ; Shakir Choi D.O. The [address] [address] Patient Name: HOMERO DE LEON MRN: [facility]:[id number] date: 1990 Sex: F Assigned Patient Location: [facility] Current Patient Location: [facility] Accession/Order Number: [id number] Exam Date: 06/23/2024 14:01 Report Date: 06/23/2024 [...] Signed By: 06/23/24 1430 DD/ 1427 TD/TT: Associate Dentist: [facility] Radiology Study observation (narrative) [facility] US OB BPP W NON-STRESS Ordered By: Radiologist Radiology on 06-23-2024 [facility] Work Phone: Urinalysis macro (dipstick) panel (U)on 06-23-2024 Bilirubin, UA Positive Negative - 4(70) +++ mg/dL [facility] Comment on above: small Blood, UA Positive Negative - 50 Papo/mcL [facility] Comment on above: trace Clarity, UA Clear [facility] Color, UA Sera [facility] Glucose, UA Negative Negative - 2000(110) ++++ mg/dL [facility] Interpretation and review of laboratory results Abnormal [facility] Ketones, UA Positive Negative - 160(16) ++++ mg/dL [facility] Comment on above: 15 Leukocytes, UA Positive Negative - 500+++ Akash/mcL [facility] Comment on above: large Nitrite, UA Positive Negative - Positive [facility] pH, UA 6.5 5 - 9 [facility] Protein, UA Positive Negative - 2000(20) ++++ mg/dL [facility] Comment on above: 100 Spec Grav, UA 1.025 1 - 1.03 [facility] Urobilinogen, UA 1.0 0.2 - 12 mg/dL [facility] CHLAMYDIA/GC BY PCRon 2024 CHLAMYDIA/GC BY PCR [...] are dependent on adequate specimen collection. Normal [facility] Comment on above: Performed By: #### 2 106-3 #### [facility] ([id number]) [address] [place] [address] 45367 DRUG SCREEN, URINEon 025 AMPHETAMINE/METHAMP Negative Normal [facility] Comment on above: Result Comment: AMPH /METH screening cut off = 1000 ng/mL Performed By: #### 2 106-3 #### [facility] ([id number]) [address] [place] [address] 19458 BARBITURATES Negative Normal NEG [facility] Comment on above: Result Comment: Allison iturates screening cut off value = 200 ng/mL Performed By: #### 2 106-3 #### [facility] ([id number]) [address] [place] [address] 63538 BENZODIAZEPINES Negative Normal NEG [facility] Comment on above: Result Comment: Dave odiazepines screening cut off value = 200 ng/mL Performed By: #### 2 106-3 #### [facility] ([id number]) [address] [place] [address] 39690 CANNABINOIDS Negative Normal [facility] Comment on above: Result Comment: Eddie abinoids/THC screening cut off value = 50 ng/mL Performed By: #### 2 106-3 #### [facility] ([id number]) [address] [place] [address] 03902 COCAINE METABOLITE Negative Normal NEG [facility] Comment on above: Result Comment: Coca ine screening cut off value = 300 ng/mL Performed By: #### 2 106-3 #### [facility] ([id number]) [address] [place] [address] 79196 ECSTASY Negative Normal NEG [facility] Comment on above: Result Comment: Ecst asy screening cut off value = 500 ng/mL This report is intended for use in clinical monitoring or management of patients. Performed By: #### 2 106-3 #### [facility] ([id number]) [address] [place] [address] 17588 METHADONE Negative Normal NEG [facility] Comment on above: Result Comment: Meth adone screening cut off value = 300 ng/mL. Performed By: #### 2 106-3 #### [facility] ([id number]) [address] [place] [address] 50308 OPIATES Negative Normal NEG [facility] Comment on above: Result Comment: Opia victoria screening cut off value = 300 ng/mL NOTE: This test is used for the detection of codeine, hydrocodone (>1000 ng/mL), morphine and hydromorphone (>900 ng/mL) in urine. Performed By: #### 2 106-3 #### [facility] ([id number]) [address] [place] [address] 78040 OXYCODONE Negative Normal NEG [facility] Comment on above: Result Comment: Oxyc odone screening cut off value = 300 ng/mL NOTE: This test is used for the detection of oxycodone and oxymorphone in urine. Performed By: #### 2 106-3 #### [facility] ([id number]) [address] [place] [address] 15478 PHENCYCLIDINE Negative Normal NEG [facility] Comment on above: Result Comment: Phen cyclidine screening cut off value = 25 ng/mL Performed By: #### 2 106-3 #### [facility] ([id number]) [address] [place] [address] 07827 Fibronectin. Ql (Vag fl d)on 06-22-2024 FIBRONECTIN Positive Abnormal NEG [facility] Comment on above: Performed By: #### 2 106-3 #### [facility] ([id number]) [address] [place] [address] 53589 STREP B SCREEN CULTUREon S. agalactiae Org specific cx Ql (Vag+Rectum) CULTURE RESULTS POSITIVE FOR GROUP B STREPTOCOCCUS BY NUCLEIC ACID AMPLIFICATION : Group B streptococci remain universally susceptible to penicillin, ampicillin, and cefazolin. Resistance to clindamycin can occur. Please contact laboratory within 48 hr if clindamycin susceptibility testing is needed. Normal [facility] Comment on above: Performed By: #### 2 106-3 #### [facility] ([id number]) [address] [place] [address] 01151 URINALYSISon 06-22-2024 Bilirubin Ql (U) Negative Normal NEG [facility] Comment on above: Performed By: #### 2 106-3 #### [facility] ([id number]) [address] [place] [address] 70461 BLOOD/HGB MODERATE Abnormal NEG [facility] Comment on above: Performed By: #### 2 106-3 #### [facility] ([id number]) [address] [place] [address] 18381 Color (U) YELLOW Normal YELLOW [facility] Comment on above: Performed By: #### 2 106-3 #### [facility] ([id number]) [address] [place] [address] 33244 Glucose Ql (U) Negative Normal NEG [facility] Comment on above: Performed By: #### 2 106-3 #### [facility] ([id number]) [address] [place] [address] 73886 Ketones Ql (U) >80 Abnormal NEG [facility] Comment on above: Performed By: #### 2 106-3 #### [facility] ([id number]) [address] [place] [address] 96456 Leukocyte esterase Test strip Ql (U) Large Abnormal NEG [facility] Comment on above: Performed By: #### 2 106-3 #### [facility] ([id number]) [address] [place] [address] 90107 Nitrite Ql (U) Negative Normal NEG [facility] Comment on above: Performed By: #### 2 106-3 #### [facility] ([id number]) [address] [place] [address] 58893 pH (U) 7.0 [pH] Normal 5.0-8.5 [facility] Comment on above: Performed By: #### 2 106-3 #### [facility] ([id number]) [address] [place] [address] 70913 Protein Ql (U) >300 Abnormal NEG [facility] Comment on above: Performed By: #### 2 106-3 #### [facility] ([id number]) [address] [place] [address] 24460 R.B.CELLS 6 /hpf High 0-5 [facility] Comment on above: Performed By: #### 2 106-3 #### [facility] ([id number]) [address] [place] [address] 82428 Specific gravity (U) [Rel density] 1.025 Normal 1.003-1.035 [facility] Comment on above: Performed By: #### 2 106-3 #### [facility] ([id number]) [address] [place] [address] 91147 SQUAMOUS EPITHELIUM 5 /hpf Normal 0-5 [facility] Comment on above: Performed By: #### 2 106-3 #### [facility] ([id number]) [address] [place] [address] 35706 TURBIDITY CLEAR Normal CLEAR [facility] Comment on above: Performed By: #### 2 106-3 #### [facility] ([id number]) [address] [place] [address] 04649 Urobilinogen Qn (U) 1.0 {Migue'U}/dL Normal <1.1 [facility] Comment on above: Performed By: #### 2 106-3 #### [facility] ([id number]) [address] [place] [address] 43203 W.B.CELLS 11 /hpf High 0-5 [facility] Comment on above: Performed By: #### 2 106-3 #### [facility] ([id number]) [address] [place] [address] 76001 URINE CULTUREon 06-22-2024 Bacteria identified Cx Nom (U) CULTURE RESULTS <10,000 ORGANISMS/ML NORMAL URO GENITAL JOHN PAUL Normal [facility] Comment on above: Performed By: #### 2 106-3 #### [facility] ([id number]) [address] [place] [address] 70089 VAGINITIS PANEL PCRon 2024 VAGINITIS PANEL PCR [...] clinical presentation to determine patient diagnosis. Normal [facility] Comment on above: Performed By: #### 2 106-3 #### [facility] ([id number]) [address] [place] [address] 33818 Urinalysis macro (dipstick) panel (U)on 05-24-2024 Bilirubin, UA Negative Negative - 4(70) +++ mg/dL [facility] Blood, UA Positive Negative - 50 Papo/mcL [facility] Clarity, UA Clear [facility] Color, UA Yellow [facility] Glucose, UA Negative Negative - 2000(110) ++++ mg/dL [facility] Interpretation and review of laboratory results Abnormal [facility] Ketones, UA Negative Negative - 160(16) ++++ mg/dL [facility] Leukocytes, UA Negative Negative - 500+++ Akash/mcL [facility] Nitrite, UA Negative Negative - Positive [facility] pH, UA 7 5 - 9 [facility] Protein, UA Trace Negative - 2000(20) ++++ mg/dL [facility] Spec Grav, UA 1.02 1 - 1.03 [facility] Urobilinogen, UA 1.0 0.2 - 12 mg/dL [facility] COMPLETE BLOOD COUNTon 05-13 Erythrocyte distribution width (RBC) [Ratio] 12.9 % Normal 11.5-15.0 [facility] Comment on above: Performed By: #### N UM #### [facility] ([id number]) [address] [place] [address] 18127 Hematocrit (Bld) [Volume fraction] 30.2 % Low 35-47 [facility] Comment on above: Performed By: #### N UM #### [facility] ([id number]) [address] [place] [address] 80883 Hemoglobin (Bld) [Mass/Vol] 10.4 g/dL Low 11.7-15.5 [facility] Comment on above: Performed By: #### N UM #### [facility] ([id number]) [address] [place] [address] 67669 MCH (RBC) [Entitic mass] 31.3 pg Normal 27-34 [facility] Comment on above: Performed By: #### N UM #### [facility] ([id number]) [address] [place] [address] 12445 MCHC (RBC) [Mass/Vol] 34.3 g/dL Normal 32-36 [facility] Comment on above: Performed By: #### N UM #### [facility] ([id number]) [address] [place] [address] 74509 MCV (RBC) [Entitic vol] 92 fL Normal 80-100 [facility] Comment on above: Performed By: #### N UM #### [facility] ([id number]) [address] [place] [address] 46506 Platelet mean volume (Bld) [Entitic vol] 8.7 fL Normal 7-12 [facility] Comment on above: Performed By: #### N UM #### [facility] ([id number]) [address] [place] [address] 13207 Platelets (Bld) [#/Vol] 285 10*3/uL Normal 150-450 [facility] Comment on above: Performed By: #### N UM #### [facility] ([id number]) [address] [place] [address] 05166 RBC COUNT 3.31 X10E12/L Low 3.80-5.20 [facility] Comment on above: Performed By: #### N UM #### [facility] ([id number]) [address] [place] [address] 50002 WBC (Bld) [#/Vol] 13.6 10*3/uL High 4.0-11.0 [facility] Comment on above: Performed By: #### N UM #### [facility] ([id number]) [address] [place] [address] 80890 COMPREHENSIVE METABOLIC PANE Baljit 05-13-2024 Albumin [Mass/Vol] 3.3 g/dL Normal 3.2-5.3 [facility] Comment on above: Performed By: #### N UM #### [facility] ([id number]) [address] [place] [address] ALP [Catalytic activity/Vol] 52 U/L Normal 39-130 [facility] Comment on above: Performed By: #### N UM #### [facility] ([id number]) [address] [place] [address] 14533 ALT [Catalytic activity/Vol] 10 U/L Normal 0-31 [facility] Comment on above: Performed By: #### N UM #### [facility] ([id number]) [address] [place] [address] 82765 Anion gap [Moles/Vol] 9 mmol/L Normal 5-15 [facility] Comment on above: Performed By: #### N UM #### [facility] ([id number]) [address] [place] [address] 58216 AST [Catalytic activity/Vol] 16 U/L Normal 0-41 [facility] Comment on above: Performed By: #### N UM #### [facility] ([id number]) [address] [place] [address] 32509 Bilirubin [Mass/Vol] 0.8 mg/dL Normal 0.3-1.2 [facility] Comment on above: Performed By: #### N UM #### [facility] ([id number]) [address] [place] [address] 56112 Calcium [Mass/Vol] 9.4 mg/dL Normal 8.5-10.5 [facility] Comment on above: Performed By: #### N UM #### [facility] ([id number]) [address] [place] [address] 55153 Chloride [Moles/Vol] 104 mmol/L Normal 98-109 [facility] Comment on above: Performed By: #### N UM #### [facility] ([id number]) [address] [place] [address] 31987 CO2 [Moles/Vol] 22 mmol/L Normal 22-32 [facility] Comment on above: Performed By: #### N UM #### [facility] ([id number]) [address] [place] [address] 80854 Creatinine [Mass/Vol] 0.63 mg/dL Normal 0.40-1.00 [facility] Comment on above: Result Comment: METH OD TRACEABLE TO IDMS STANDARD Performed By: #### N UM #### [facility] ([id number]) [address] [place] [address] 76896 eGFR (CKD-EPI) NON-RACE DEPENDENT >90 Normal >59 [facility] Comment on above: Result Comment: Reported eGFR is based on the CKD-EPI 2020 equation that does not use a race coefficient. Performed By: #### N UM #### [facility] ([id number]) [address] [place] [address] 07535 Glucose [Mass/Vol] 99 mg/dL Normal 65-99 [facility] Comment on above: Performed By: #### N UM #### [facility] ([id number]) [address] [place] [address] 97997 Potassium [Moles/Vol] 2.8 mmol/L Low 3.5-5.0 [facility] Comment on above: Performed By: #### N UM #### [facility] ([id number]) [address] [place] [address] 14768 Protein [Mass/Vol] 6.9 g/dL Normal 6.0-8.0 [facility] Comment on above: Performed By: #### N UM #### [facility] ([id number]) [address] [place] [address] 78440 Sodium [Moles/Vol] 135 mmol/L Normal 134-146 [facility] Comment on above: Performed By: #### N UM #### [facility] ([id number]) [address] [place] [address] 14431 Urea nitrogen [Mass/Vol] 7 mg/dL Normal 5-23 [facility] Comment on above: Performed By: #### N UM #### [facility] ([id number]) [address] [place] [address] 72826 Fibronectin. Ql (Vag fl d)on 05-13-2024 FIBRONECTIN Negative Normal NEG [facility] Comment on above: Performed By: #### N UM #### [facility] ([id number]) [address] [place] [address] 27473 STREP B SCREEN CULTUREon S. agalactiae Org specific cx Ql (Vag+Rectum) CULTURE RESULTS NEGATIVE FOR GROUP B STREPTOCOCCUS BY NUCLEIC ACID AMPLIFICATION Normal [facility] Comment on above: Performed By: #### 2 106-3 #### [facility] ([id number]) [address] [place] [address] [place] [address] URINALYSISon 05-13-2024 Bilirubin Ql (U) Negative Normal NEG [facility] Comment on above: Performed By: #### N UM #### [facility] ([id number]) [address] [place] [address] 64422 BLOOD/HGB Trace Abnormal NEG [facility] Comment on above: Performed By: #### N UM #### [facility] ([id number]) [address] [place] [address] [place] [address] Color (U) YELLOW Normal YELLOW [facility] Comment on above: Performed By: #### N UM #### [facility] ([id number]) [address] [place] [address] 18267 Glucose Ql (U) Negative Normal NEG [facility] Comment on above: Performed By: #### N UM #### [facility] ([id number]) [address] [place] [address] 87108 Ketones Ql (U) Negative Normal NEG [facility] Comment on above: Performed By: #### N UM #### [facility] ([id number]) [address] [place] [address] 06179 Leukocyte esterase Test strip Ql (U) Large Abnormal NEG [facility] Comment on above: Performed By: #### N UM #### [facility] ([id number]) [address] [place] [address] 68755 Nitrite Ql (U) Negative Normal NEG [facility] Comment on above: Performed By: #### N UM #### [facility] ([id number]) [address] [place] [address] 55598 pH (U) 7.0 [pH] Normal 5.0-8.5 [facility] Comment on above: Performed By: #### N UM #### [facility] ([id number]) [address] [place] [address] 76145 Protein Ql (U) Negative Normal NEG [facility] Comment on above: Performed By: #### N UM #### [facility] ([id number]) [address] [place] [address] 90262 R.B.CELLS 0 to 1 Normal 0-5 [facility] Comment on above: Performed By: #### N UM #### [facility] ([id number]) [address] [place] [address] [place] [address] Specific gravity (U) [Rel density] 1.010 Normal 1.003-1.035 [facility] Comment on above: Performed By: #### N UM #### [facility] ([id number]) [address] [place] [address] 15025 SQUAMOUS EPITHELIUM 5 /hpf Normal 0-5 [facility] Comment on above: Performed By: #### N UM #### [facility] ([id number]) [address] [place] [address] 01984 TURBIDITY CLEAR Normal CLEAR [facility] Comment on above: Performed By: #### N UM #### [facility] ([id number]) [address] [place] [address] 30192 Urobilinogen Qn (U) 0.2 {Migue'U}/dL Normal <1.1 [facility] Comment on above: Performed By: #### N UM #### [facility] ([id number]) [address] [place] [address] 52785 W.B.CELLS 5 /hpf Normal 0-5 [facility] Comment on above: Performed By: #### N UM #### [facility] ([id number]) [address] [place] [address] 45520 US BIOPHYSICAL PROFILE FET W O NSTon [...] Bueno MD on 05/13/2024 8:41 AM Normal [facility] No Panel Informationon 05-11 STAPHYLOCOCCUS EPIDERMIDIS, HAEMOLYTICUS, LUGDUNENSIS, SAPROPHYTICUS (URINA 0 [facility] STAPHYLOCOCCUS EPIDERMIDIS, HAEMOLYTICUS, LUGDUNENSIS, SAPROPHYTICUS (URINA Not detected [facility] URINARY TRACT INFECTION (HTR X)on 05-11-2024 ACINETOBACTER BAUMANII 0 NO [facility] ACINETOBACTER BAUMANII Not detected [facility] OZZIE ALBICANS, PARAPSILOSIS, TROPICALIS 0 [facility] OZZIE ALBICANS, PARAPSILOSIS, TROPICALIS Not detected [facility] OZZIE GLABRATA 0 [facility] OZZIE GLABRATA Not detected [facility] OZZIE KRUSEI 0 [facility] OZZIE KRUSEI Not detected [facility] CITROBACTER FREUNDII 0 [facility] CITROBACTER FREUNDII Not detected NO [facility] ENTEROBACTER AEROGENES, CLOACAE 0 [facility] ENTEROBACTER AEROGENES, CLOACAE Not detected [facility] ENTEROCOCCUS FAECALIS, FAECIUM 0 [facility] ENTEROCOCCUS FAECALIS, FAECIUM Not detected [facility] ESCHERICHIA COLI 0 [facility] ESCHERICHIA COLI Not detected [facility] Interpretation and review of laboratory results Abnormal [facility] KLEBSIELLA PNEUMONIAE, OXYTOCA 19.182 Abnormal [facility] KLEBSIELLA PNEUMONIAE, OXYTOCA Detected Abnormal [facility] MORGANELLA MORGANII 0 [facility] MORGANELLA MORGANII Not detected [facility] PROTEUS MIRABILIS, VULGARIS 0 [facility] PROTEUS MIRABILIS, VULGARIS Not detected [facility] PSEUDOMONAS AERUGINOSA 0 [facility] PSEUDOMONAS AERUGINOSA Not detected [facility] SERRATIA MARCESCENS 0 [facility] SERRATIA MARCESCENS Not detected [facility] STAPHYLOCOCCUS AUREUS [address] [facility] STAPHYLOCOCCUS AUREUS Not detected [facility] STREPTOCOCCUS AGALACTIAE (GROUP B STREP) 0 [facility] STREPTOCOCCUS AGALACTIAE (GROUP B STREP) Not detected [facility] STREPTOCOCCUS PYOGENES (GROUP A STREP) 0 [facility] STREPTOCOCCUS PYOGENES (GROUP A STREP) Not detected [facility] Urinalysis macro (dipstick) panel (U)on 05-10-2024 Bilirubin, UA Negative Negative - 4(70) +++ mg/dL [facility] Blood, UA Negative Negative - 50 Papo/mcL [facility] Clarity, UA Clear [facility] Color, UA Dark Sera [facility] Glucose, UA Negative Negative - 1999(110) ++++ mg/dL [facility] Interpretation and review of laboratory results Abnormal [facility] Ketones, UA Negative Negative - 160(16) ++++ mg/dL [facility] Leukocytes, UA Negative Negative - 500+++ Akash/mcL [facility] Nitrite, UA Positive Negative - Positive [facility] pH, UA 7.5 5 - 9 [facility] Protein, UA Positive Negative - 1999(20) ++++ mg/dL [facility] Comment on above: 30mg/dL Spec Grav, UA 1.02 1 - 1.03 [facility] Urobilinogen, UA 1.0 0.2 - 12 mg/dL [facility] Urinalysis macro (dipstick) panel (U)on 04-12-2024 Bilirubin, UA Negative Negative - 4(70) +++ mg/dL [facility] Blood, UA Negative Negative - 50 Papo/mcL [facility] Clarity, UA Clear [facility] Color, UA Yellow [facility] Glucose, UA Negative Negative - 1999(110) ++++ mg/dL [facility] Interpretation and review of laboratory results Abnormal [facility] Ketones, UA Positive Negative - 160(16) ++++ mg/dL [facility] Leukocytes, UA Negative Negative - 500+++ Akash/mcL [facility] Nitrite, UA Negative Negative - Positive [facility] pH, UA 7 5 - 9 [facility] Protein, UA Negative Negative - 2000(20) ++++ mg/dL [facility] Spec Grav, UA 1.02 1 - 1.03 [facility] Urobilinogen, UA 0.2 0.2 - 12 mg/dL [facility] CHLAMYDIA/GC BY PCRon 2023 CHLAMYDIA/GC BY PCR [...] are dependent on adequate specimen collection. Normal [facility] Comment on above: Performed By: #### N UM #### [facility] ([id number]) [address] [place] [address], [place] [address] HIV 1+2 Ab+HIV1 p24 Ag IA Ql on 04-09-2024 HIV 1 and 2 Ab/Ag Screen Non-Reactive Normal NRCT [facility] Comment on above: Result Comment: This information [...] diagnoses. Performed By: #### N UM #### [facility] ([id number]) [address] [place] [address] 66996 T. pallidum IgG+IgM IA Ql (S )on 04-09-2024 Syphilis Total <0.2 Normal 0.0-0.8 [facility] Comment on above: Result Comment: NON REACTIVE No serologic evidence of infection to Treponema pallidum (syphilis). Repeat testing may be considered in patients with suspected acute or primary syphilis in 2 to 4 weeks. Performed By: #### N UM #### [facility] ([id number]) [address] [place] [address] 58659 URINALYSISon 04-09-2024 Bilirubin Ql (U) Negative Normal NEG [facility] Comment on above: Performed By: #### N UM #### [facility] ([id number]) [address] [place] [address] 14451 BLOOD/HGB Negative Normal NEG [facility] Comment on above: Performed By: #### N UM #### [facility] ([id number]) [address] [place] [address] 98200 Color (U) YELLOW Normal YELLOW [facility] Comment on above: Performed By: #### N UM #### [facility] ([id number]) [address] [place] [address] 94963 Glucose Ql (U) Negative Normal NEG [facility] Comment on above: Performed By: #### N UM #### [facility] ([id number]) [address] [place] [address] 57010 Ketones Ql (U) Trace Abnormal NEG [facility] Comment on above: Performed By: #### N UM #### [facility] ([id number]) [address] [place] [address] 65062 Leukocyte esterase Test strip Ql (U) Trace Abnormal NEG [facility] Comment on above: Performed By: #### N UM #### [facility] ([id number]) [address] [place] [address] 71717 Nitrite Ql (U) Negative Normal NEG [facility] Comment on above: Performed By: #### N UM #### [facility] ([id number]) [address] [place] [address] 85192 pH (U) 7.0 [pH] Normal 5.0-8.5 [facility] Comment on above: Performed By: #### N UM #### [facility] ([id number]) [address] [place] [address] 70055 Protein Ql (U) Trace Abnormal NEG [facility] Comment on above: Performed By: #### N UM #### [facility] ([id number]) [address] [place] [address] 25456 R.B.CELLS 2 /hpf Normal 0-5 [facility] Comment on above: Performed By: #### N UM #### [facility] ([id number]) [address] [place] [address] 72010 Specific gravity (U) [Rel density] 1.025 Normal 1.003-1.035 [facility] Comment on above: Performed By: #### N UM #### [facility] ([id number]) [address] [place] [address] 81194 SQUAMOUS EPITHELIUM 4 /hpf Normal 0-5 [facility] Comment on above: Performed By: #### N UM #### [facility] ([id number]) [address] [place] [address] 51975 TURBIDITY CLEAR Normal CLEAR [facility] Comment on above: Performed By: #### N UM #### [facility] ([id number]) [address] [place] [address] Urobilinogen Qn (U) 0.2 {Migue'U}/dL Normal <1.1 [facility] Comment on above: Performed By: #### N UM #### [facility] ([id number]) [address] [place] [address] W.B.CELLS 3 /hpf Normal 0-5 [facility] Comment on above: Performed By: #### N UM #### [facility] ([id number]) [address] [place] [address] No Panel Informationon 04-06 Interpretation and review of laboratory results Abnormal [facility] TB UA (CLEAN/CATCH) 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 YELLOW YELLOW [facility] GLUCOSE URINE UA Negative NEGATIVE mg/dL [facility] Ketones Ql (U) Negative NEGATIVE mg/dL [facility] Leukocyte esterase Test strip Ql (U) SMALL Abnormal NEGATIVE [facility] NITRITE URINE Negative NEGATIVE [facility] pH (U) 7.0 [pH] 5.0 - 9.0 [facility] PROTEIN URINE Negative NEG/TRACE mg/dL [facility] SPECIFIC GRAVITY URINE 1.010 1.005 - 1.[address] [facility] URINE MICROSCOPIC INDICATED YES [facility] UROBILINOGEN URINE 1.0 EU/dL 0.2 - 1.0 EU/dL [facility] TB URINE MICROSCOPIC ONLYon 04-06-2024 BACTERIA URINE TRACE Abnormal NONE SEEN #/HPF [facility] CAST SEEN? NONE SEEN NONE SEEN #/LPF [facility] CRYSTALS SEEN? None Seen None Seen #/HPF [facility] MUCUS URINE NONE SEEN NONE SEEN [facility] SQUAMOUS EPITHELIAL CELL URINE FEW Abnormal NONE/RARE #/LPF [facility] TB RBC 0-2 [facility] TB WBC 2-5 Abnormal NONE SEEN #/HPF [facility] URINE CULTURE INDICATED YES [facility] Urinalysis macro (dipstick) panel (U)on 03-15-2024 Bilirubin, UA Negative Negative - 4(70) +++ mg/dL [facility] Blood, UA Negative Negative - 50 Papo/mcL [facility] Clarity, UA Clear [facility] Color, UA Yellow [facility] Glucose, UA Negative Negative - 2000(110) ++++ mg/dL [facility] Interpretation and review of laboratory results Abnormal [facility] Ketones, UA Positive Negative - 160(16) ++++ mg/dL [facility] Leukocytes, UA Positive Negative - 500+++ Akash/mcL [facility] Nitrite, UA Positive Negative - Positive [facility] pH, UA 7 5 - 9 [facility] Protein, UA Positive Negative - 2000(20) ++++ mg/dL [facility] Spec Grav, UA 1.02 1 - 1.03 [facility] Urobilinogen, UA 1.0 0.2 - 12 mg/dL [facility] CHLAMYDIA/GC BY PCRon 2023 CHLAMYDIA/GC BY PCR [...] are dependent on adequate specimen collection. Normal [facility] Comment on above: Performed By: #### C GS #### [facility] ([id number]) [address] [place] [address] 11717 [facility] ([id number]) [address] [facility], [address] [place] [address] HCG ( test) Ql (U)o n 02-26-2024 Beta HCG ( test) Ql (U) Positive Abnormal NEG [facility] Comment on above: Performed By: #### 2 106-3 #### [facility] ([id number]) [address] [place] [address] 57284 URINE CULTUREon 02-26-2024 Bacteria identified Cx Nom [...] TOBRAMYCIN S <=1 F TRIMETH/SULFAMETHOXA ZOLE S <=06/13 F Susceptible [facility] Comment on above: Performed By: #### N UM #### [facility] ([id number]) [address] [place] [address] 54447 URN MACROSCOPIC NURon 2023 BILIRUBIN ALEKSANDRA Negative Normal NEG [facility] Comment on above: Performed By: #### N UM #### [facility] ([id number]) [address] [place] [address] [place] [address] BLOOD/HGB ALEKSANDRA Trace Abnormal NEG [facility] Comment on above: Performed By: #### N UM #### [facility] ([id number]) [address] [place] [address] [place] [address] GLUCOSE ALEKSANDRA Negative Normal NEG [facility] Comment on above: Performed By: #### N UM #### [facility] ([id number]) [address] [place] [address] [place] [address] KETONES ALEKSANDRA 80 mg/dL Abnormal NEG [facility] Comment on above: Performed By: #### N UM #### [facility] ([id number]) [address] [place] [address] [place] [address] LEUKOCYTE ESTERASE ALEKSANDRA Negative Normal NEG [facility] Comment on above: Performed By: #### N UM #### [facility] ([id number]) [address] [place] [address] 20521 NITRITE ALEKSANDRA Negative Normal NEG [facility] Comment on above: Performed By: #### N UM #### [facility] ([id number]) [address] [place] [address] 72026 PH ALEKSANDRA 6.0 Normal 5.0-8.5 [facility] Comment on above: Performed By: #### N UM #### [facility] ([id number]) [address] [place] [address] 24861 PROTEIN ALEKSANDRA >=300 Abnormal NEG [facility] Comment on above: Performed By: #### N UM #### [facility] ([id number]) [address] [place] [address] 96789 SPECIFIC GRAVITY ALEKSANDRA >=1.030 Normal 1.003-1.035 [facility] Comment on above: Performed By: #### N UM #### [facility] ([id number]) [address] [place] [address] 95176 UROBILINOGEN ALEKSANDRA 1.0 eu/dL Normal <1.1 [facility] Comment on above: Performed By: #### N UM #### [facility] ([id number]) [address] [place] [address] 37501 VAGINITIS PANEL PCRon 2023 VAGINITIS PANEL PCR [...] clinical presentation to determine patient diagnosis. Normal [facility] Comment on above: Performed By: #### N UM #### [facility] ([id number]) [address] [facility] [place] [address] URETHRITIS/DISCHARGE PLUS VA GINITIS (HTRX)on 01-31-2024 ATOPOBIUM VAGINAE 20.240 Abnormal [facility] ATOPOBIUM VAGINAE Detected Abnormal [facility] BVAB 2,3 (BACTERIAL VAGINOSIS ASSOCIATED BACTERIA 2, 3); MOBILUNCUS SPP 14.521 Abnormal [facility] BVAB 2,3 (BACTERIAL VAGINOSIS ASSOCIATED BACTERIA 2, 3); MOBILUNCUS SPP Detected Abnormal [facility] OZZIE ALBICANS, PARAPSILOSIS, TROPICALIS 0.000 [facility] OZZIE ALBICANS, PARAPSILOSIS, TROPICALIS Not detected [facility] OZZIE GLABRATA 0.000 [facility] OZZIE GLABRATA Not detected [facility] OZZIE KRUSEI 0.000 [facility] OZZIE KRUSEI Not detected [facility] CHLAMYDIA TRACHOMATIS 0.000 [facility] CHLAMYDIA TRACHOMATIS Not detected [facility] ERMB, C; MEFA 22.470 Abnormal [facility] ERMB, C; MEFA Detected Abnormal [facility] GARDNERELLA VAGINALIS 25.182 Abnormal [facility] GARDNERELLA VAGINALIS Detected Abnormal [facility] Interpretation and review of laboratory results Abnormal [facility] MEGASPHAERA (TYPES 1, 2) 21.331 Abnormal [facility] MEGASPHAERA (TYPES 1, 2) Detected Abnormal [facility] MYCOPLASMA GENITALIUM 0.000 [facility] MYCOPLASMA GENITALIUM Not detected [facility] NEISSERIA GONORRHOEAE 0.000 [facility] NEISSERIA GONORRHOEAE Not detected [facility] TET B, TET M 22.938 Abnormal [facility] TET B, TET M Detected Abnormal [facility] TRICHOMONAS VAGINALIS 0.000 [facility] TRICHOMONAS VAGINALIS Not detected [facility] Urinalysis macro (dipstick) panel (U)on 01-29-2024 Bilirubin, UA Positive Negative - 4(70) +++ mg/dL [facility] Comment on above: small Blood, UA Negative Negative - 50 Papo/mcL [facility] Clarity, UA Cloudy [facility] Color, UA Yellow [facility] Glucose, UA Negative Negative - 2000(110) ++++ mg/dL [facility] Interpretation and review of laboratory results Abnormal [facility] Ketones, UA Positive Negative - 160(16) ++++ mg/dL [facility] Comment on above: trace Leukocytes, UA Negative Negative - 500+++ Akash/mcL [facility] Nitrite, UA Positive Negative - Positive [facility] pH, UA 6.0 5 - 9 [facility] Protein, UA Trace Negative - 1999(20) ++++ mg/dL [facility] Spec Grav, UA 1.030 1 - 1.03 [facility] Urobilinogen, UA 4.0 0.2 - 12 mg/dL [facility] ALL CBC WITH AUTO DIFFon BASOPHILS ABSOLUTE AUTO 0.0 [facility] Basophils/100 WBC (Bld) 0.3 % 0.2 - 2.0 % [facility] Eosinophils/100 WBC (Bld) 2.3 % 0.9 - 7.0 % [facility] Erythrocyte distribution width (RBC) [Ratio] 12.7 % 11.0 - 15.0 % [facility] Hematocrit (Bld) [Volume fraction] 31.8 % Low 36.0 - 48.0 % [facility] Hemoglobin (Bld) [Mass/Vol] 10.3 g/dL Low 12.0 - 16.0 g/dL [facility] IMMATURE GRANULOCYTES ABS AUTO 0.05 High [facility] Immature granulocytes/100 WBC (Bld) 0.4 % 0.0 - 0.5 % [facility] Interpretation and review of laboratory results Abnormal [facility] LYMPHOCYTES ABSOLUTE AUTO 2.4 [facility] Lymphocytes/100 WBC (Bld) 21.2 % 20.5 - 60.0 % [facility] MCH (RBC) [Entitic mass] 29.9 pg 26.7 - 34.0 pg [facility] MCHC (RBC) [Mass/Vol] 32.4 g/dL 29.9 - 35.2 g/dL [facility] MCV (RBC) [Entitic vol] 92.2 fL 81.0 - 99.0 fL [facility] MONOCYTES ABSOLUTE AUTO 0.8 [facility] Monocytes/100 WBC (Bld) 6.9 % 1.7 - 12.0 % [facility] NEUTROPHILS ABSOLUTE AUTO 8.0 High [facility] Center Neutrophils/100 WBC (Bld) 68.9 % 43.0 - 75.0 % [facility] Platelet mean volume (Bld) [Entitic vol] 10.9 fL 9.5 - 13.5 fL [facility] TBH EO # 0.3 [facility] TBH PLT 385 [facility] RBC 3.45 Low [facility] WBC 11.5 High [facility] ALL TYPE AND SCREENon 2023 ABO and Rh group Nom (Bld) Blood group B Rh(D) positive [facility] , [facility] MLR HEMOGLOBIN A1Con 024 Glucose [Mass/Vol] 82 mg/dL [facility] HbA1c (Bld) [Mass fraction] 4.5 % 4.5 - 6.2 % [facility] Comment on above: ADA RECOMMENDED LIMI T 4.0 - 6.0 ADA THERAPEUTIC TARGET < 7.0 ACTION SUGGESTED > 7.0 [facility] CBC AND AUTO DIFFon 12-20-19 24 ABSOLUTE BASOPHIL 0.1 X10E9/L Normal 0.0-0.2 [facility] Comment on above: Performed By: #### C [facility], #### [facility] ([id number]) [address] [place] [address] 57332 ABSOLUTE NEUTROPHIL 11.7 X10E9/L High 1.5-6.6 [facility] Comment on above: Performed By: #### C CEE ATKINSON, #### [facility] ([id number]) [address] [place] [address] 47902 Basophils/100 WBC (Bld) 0.4 % Normal [facility] Comment on above: Performed By: #### C CEE ATKINSON, #### [facility] ([id number]) [address] [place] [address] 44891 Eosinophils (Bld) [#/Vol] 0.3 10*3/uL Normal 0.0-0.4 [facility] Comment on above: Performed By: #### C CEE ATKINSON, #### [facility] ([id number]) [address] [place] [address] 91155 Eosinophils/100 WBC (Bld) 1.6 % Normal [facility] Comment on above: Performed By: #### Marco Antonio ATKINSON CMP, #### [facility] ([id number]) [address] [place] [address] 03694 Erythrocyte distribution width (RBC) [Ratio] 13.0 % Normal 11.5-15.0 [facility] Comment on above: Performed By: #### Marco Antonio ATKINSON CMP, #### [facility] ([id number]) [address] [place] [address] 84587 Hematocrit (Bld) [Volume fraction] 33.1 % Low 35-47 [facility] Comment on above: Performed By: #### Marco Antonio ATKINSON CMP, #### [facility] ([id number]) [address] [place] [address] 41148 Hemoglobin (Bld) [Mass/Vol] 11.1 g/dL Low 11.7-15.5 [facility] Comment on above: Performed By: #### Marco Antonio ATKINSON CMP, #### [facility] ([id number]) [address] [place] [address] 93505 Lymphocytes (Bld) [#/Vol] 2.6 10*3/uL Normal 1.0-3.5 [facility] Comment on above: Performed By: #### Marco Antonio ATKINSON CMP, #### [facility] ([id number]) [address] [place] [address] 61761 Lymphocytes/100 WBC (Bld) 16.5 % Normal [facility] Comment on above: Performed By: #### C CHINA CMP, #### [facility] ([id number]) [address] [place] [address] 53900 MCH (RBC) [Entitic mass] 30.3 pg Normal 27-34 [facility] Comment on above: Performed By: #### Marco Antonio ATKINSON, CMP, #### [facility] ([id number]) [address] [place] [address] 92169 MCHC (RBC) [Mass/Vol] 33.6 g/dL Normal 32-36 [facility] Comment on above: Performed By: #### Marco Antonio ATKINSON, CMP, #### [facility] ([id number]) [address] [place] [address] 25808 MCV (RBC) [Entitic vol] 90 fL Normal 80-100 [facility] Comment on above: Performed By: #### Marco Antonio ATKINSON, CMP, #### [facility] ([id number]) [address] [place] [address] 98522 Monocytes (Bld) [#/Vol] 1.2 10*3/uL High 0-0.9 [facility] Comment on above: Performed By: #### Marco Antonio ATKINSON, CMP, #### [facility] ([id number]) [address] [place] [address] 02930 Monocytes/100 WBC (Bld) 7.5 % Normal [facility] Comment on above: Performed By: #### Marco Antonio ATKINSON, CMP, #### [facility] ([id number]) [address] [place] [address] 34690 Neutrophils/100 WBC (Bld) 74.0 % Normal [facility] Comment on above: Performed By: #### Marco Antonio ATKINSON, CMP, #### [facility] ([id number]) [address] [place] [address] 38425 Platelet mean volume (Bld) [Entitic vol] 9.1 fL Normal 7-12 [facility] Comment on above: Performed By: #### Marco Antonio ATKINSON CMP, #### [facility] ([id number]) [address] [place] [address] 64974 Platelets (Bld) [#/Vol] 385 10*3/uL Normal 150-450 [facility] Comment on above: Performed By: #### Marco Antonio ATKINSON CMP, #### [facility] ([id number]) [address] [place] [address] 99779 RBC COUNT 3.67 X10E12/L Low 3.80-5.20 [facility] Comment on above: Performed By: #### Marco Antonio ATKINSON CMP, #### [facility] ([id number]) [address] [place] [address] 22007 WBC (Bld) [#/Vol] 15.8 10*3/uL High 4.0-11.0 [facility] Comment on above: Performed By: #### Marco Antonio ATKINSON CMP, #### [facility] ([id number]) [address] [place] [address] 84071 COMPREHENSIVE METABOLIC PANE Baljit 12-20-2023 Albumin [Mass/Vol] 4.2 g/dL Normal 3.2-5.3 [facility] Comment on above: Performed By: #### Marco Antonio ATKINSON CMP, #### [facility] ([id number]) [address] [place] [address] 88562 ALP [Catalytic activity/Vol] 39 U/L Normal 39-130 [facility] Comment on above: Performed By: #### Marco Antonio ATKINSON CMP, #### [facility] ([id number]) [address] [place] [address] [place] [address] ALT [Catalytic activity/Vol] 14 U/L Normal 0-31 [facility] Comment on above: Performed By: #### C CEE ATKINSON, #### [facility] ([id number]) [address] [place] [address] 03726 Anion gap [Moles/Vol] 6 mmol/L Normal 5-15 [facility] Comment on above: Performed By: #### C CEE ATKINSON, #### [facility] ([id number]) [address] [place] [address] 51718 AST [Catalytic activity/Vol] 20 U/L Normal 0-41 [facility] Comment on above: Performed By: #### C CEE ATKINSON, #### [facility] ([id number]) [address] [place] [address] 40232 Bilirubin [Mass/Vol] 0.6 mg/dL Normal 0.3-1.2 [facility] Comment on above: Performed By: #### C CEE ATKINSON, #### [facility] ([id number]) [address] [place] [address] 56917 Calcium [Mass/Vol] 8.9 mg/dL Normal 8.5-10.5 [facility] Comment on above: Performed By: #### C CHINA CMP, #### [facility] ([id number]) [address] [place] [address] 64681 Chloride [Moles/Vol] 104 mmol/L Normal 98-109 [facility] Comment on above: Performed By: #### C CHINA CMP, #### [facility] ([id number]) [address] [place] [address] 65150 CO2 [Moles/Vol] 22 mmol/L Normal 22-32 [facility] Comment on above: Performed By: #### C CEE ATKINSON, #### [facility] ([id number]) [address] [place] [address] 22141 Creatinine [Mass/Vol] 0.56 mg/dL Normal 0.40-1.00 [facility] Comment on above: Result Comment: METH OD TRACEABLE TO IDMS STANDARD Performed By: #### C CEE ATKINSON, #### [facility] ([id number]) [address] [place] [address] 34981 eGFR (CKD-EPI) NON-RACE DEPENDENT >90 Normal >59 [facility] Comment on above: Result Comment: Reported eGFR is based on the CKD-EPI 2020 equation that does not use a race coefficient. Performed By: #### C CEE ATKINSON, #### [facility] ([id number]) [address] [place] [address] 24277 Glucose [Mass/Vol] 112 mg/dL High 65-99 [facility] Comment on above: Performed By: #### C CEE ATKINSON, #### [facility] ([id number]) [address] [place] [address] 26155 Potassium [Moles/Vol] 3.2 mmol/L Low 3.5-5.0 [facility] Comment on above: Performed By: #### C CEE ATKINSON, #### [facility] ([id number]) [address] [place] [address] 13833 Protein [Mass/Vol] 7.6 g/dL Normal 6.0-8.0 [facility] Comment on above: Performed By: #### C CEE ATKINSON, #### [facility] ([id number]) [address] [place] [address] 80334 Sodium [Moles/Vol] 132 mmol/L Low 134-146 [facility] Comment on above: Performed By: #### C CEE ATKINSON, #### [facility] ([id number]) [address] [place] [address] 84875 Urea nitrogen [Mass/Vol] 9 mg/dL Normal 5-23 [facility] Comment on above: Performed By: #### C CHINA, CMP, 64920-2 #### [facility] ([id number]) [address] [place] [address] 10994 HCG ( test) Ql (U)o n 12-20-2023 Beta HCG ( test) Ql (U) Positive Abnormal NEG [facility] Comment on above: Performed By: #### 2 106-3 #### [facility] ([id number]) [address] [place] [address] 97609 HCG.beta subunit IA 3rd IS Q non 12-20-2023 [place] [address] m[IU]/mL Normal P [facility] Comment on above: Result Comment: NEW REFERENCE [...] or nontrophoblastic neoplasms. Performed By: #### C CHINA, CMP, #### [facility] ([id number]) [address] [place] [address] 16109 URINE CULTUREon 12-20-2023 Bacteria identified Cx Nom (U) CULTURE RESULTS NO GROWTH AT <1000 CFU/mL Normal [facility] Comment on above: Performed By: #### 6 30-4 #### [facility] ([id number]) [address] [place] [address], [address] [place] [address] URN MACROSCOPIC NURon 2023 BILIRUBIN ALEKSANDRA Negative Normal NEG [facility] Comment on above: Performed By: #### N UM #### [facility] ([id number]) [address] [place] [address] 94941 BLOOD/HGB ALEKSANDRA Trace Abnormal NEG [facility] Comment on above: Performed By: #### N UM #### [facility] ([id number]) [address] [place] [address] 05855 GLUCOSE ALEKSANDRA Negative Normal NEG [facility] Comment on above: Performed By: #### N UM #### [facility] ([id number]) [address] [place] [address] [place] [address] KETONES ALEKSANDRA Negative Normal NEG [facility] Comment on above: Performed By: #### N UM #### [facility] ([id number]) [address] [place] [address] [place] [address] LEUKOCYTE ESTERASE ALEKSANDRA Trace Abnormal NEG [facility] Comment on above: Performed By: #### N UM #### [facility] ([id number]) [address] [place] [address] [place] [address] NITRITE ALEKSANDRA Negative Normal NEG [facility] Comment on above: Performed By: #### N UM #### [facility] ([id number]) [address] [place] [address] 15965 PH ALEKSANRDA 6.5 Normal 5.0-8.5 [facility] Comment on above: Performed By: #### N UM #### [facility] ([id number]) [address] [place] [address] 23377 PROTEIN ALEKSANDRA Negative Normal NEG [facility] Comment on above: Performed By: #### N UM #### [facility] ([id number]) [address] [place] [address] 63164 SPECIFIC GRAVITY ALEKSANDRA 1.010 Normal 1.003-1.035 [facility] Comment on above: Performed By: #### N UM #### [facility] ([id number]) [address] [place] [address] 65334 UROBILINOGEN ALEKSANDRA 1.0 eu/dL Normal <1.1 [facility] Comment on above: Performed By: #### N UM #### [facility] ([id number]) [address] [place] [address] 30156 Hgb Electrophoresison 2023 Hgb Elect.Interp. Normal Hb electrophoretic pattern. HbA = 97.2% HbA2 = 2.8% Normal Values Normal [facility] Comment on above: Result Comment: (Hem oglobin A= 96.8 to 97.8% Hemoglobin A2= 2.2 to 3.2%) Performed By: #### F EBC, HGBE, B12FOL #### [address] [address] Take Out Waiter: Severino Jacobson MD #### ADELINE BIRMINGHAM, YASHI #### [facility] [address] [place], [place] [id number] Take Out Waiter: Lukasz Puga MD Pathologist Review: ELECTRONICALLY SIGNED. AUTUMN MENDOZA M.D. Normal [facility] Comment on above: Performed By: #### F EBC, HGBE, B12FOL #### [address] [place] [address] Take Out Waiter: Severino Jacobson MD #### VALENCIA CDP, FERI #### [facility] [address] [place], [place] [id number] Take Out Waiter: Lukasz Puga MD Smear to Pathologiston 12-07 Smear to Pathologist ELECTRONICALLY SIGNED. MITA REGAN M.D. Normal [facility] Comment on above: Performed By: #### P ATH #### [address] [address] Take Out Waiter: Severino Jacobson MD B12/Folate Panelon Cobalamin (Vitamin B12) [Mass/Vol] 717 pg/mL Normal 232-1245 [facility] Comment on above: Performed By: #### F EBC, HGBE, B12FOL #### [address] [address] Take Out Waiter: Severino Jacobson MD #### FINNCT, CDP, FERI #### [facility] [address] [place] [address] 32867 Take Out Waiter: Lukasz Puga MD Folic Acid 12.2 ng/mL Normal 4.8-24.2 [facility] Comment on above: Performed By: #### F EBC, HGBE, B12FOL #### [address] [address] Take Out Waiter: Severino Jacobson MD #### RETCT, CDP, FERI #### [facility] [address] [place] [address] 84713 Take Out Waiter: Lukasz Puga MD CBC with Diffon 12-05-2023 Abs. Atypical Lymphs 0.14 k/uL Normal [facility] Comment on above: Performed By: #### F EBC, HGBE, B12FOL #### [address] [address] Take Out Waiter: Severino Jacobson MD #### RETCT, CDP, FERI #### [facility] [address] [place] [address] 91311 Take Out Waiter: Lukasz Puga MD Abs. Basophil 0.07 k/uL Normal 0.0-0.2 [facility] Comment on above: Performed By: #### F EBC, HGBE, B12FOL #### [address] [address] Take Out Waiter: Severino Jacobson MD #### RETCT, CDP, FERI #### [facility] [place] [address] Take Out Waiter: Lukasz Puga MD Abs.Imm.Granulocyte 0.00 k/uL Normal 0.00-0.30 [facility] Comment on above: Performed By: #### F EBC, HGBE, B12FOL #### [address] [address] Take Out Waiter: Severino Jacobson MD #### RETCT, CDP, FERI #### [facility] [address] [place] [address] 62979 Take Out Waiter: Lukasz Puga MD Abs.Neutrophil (Seg) 2.80 k/uL Normal 1.8-7.7 [facility] Comment on above: Performed By: #### F EBC, HGBE, B12FOL #### [address] [address] Take Out Waiter: Severino Jacobson MD #### RETCT, CDP, FERI #### [facility] [address] [place] [address] 09518 Take Out Waiter: Lukasz Puga MD Atypical Lymphs 2 % Normal [facility] Comment on above: Performed By: #### F EBC, HGBE, B12FOL #### [address] [address] Take Out Waiter: Severino Jacobson MD #### RETCT, CDP, FERI #### [facility] [address] [place] [address] 74063 Take Out Waiter: Lukasz Puga MD Basophils/100 WBC (Bld) 1 % Normal [facility] Comment on above: Performed By: #### F EBC, HGBE, B12FOL #### [address] [address] Take Out Waiter: Severino Jacobson MD #### RETCT, CDP, FERI #### [facility] [address] [place] [address] 7[address]40 Take Out Waiter: Lukasz Puga MD Eosinophils (Bld) [#/Vol] 0.07 10*3/uL Normal 0.0-0.4 [facility] Comment on above: Performed By: #### F EBC, HGBE, B12FOL #### [address] [address] Take Out Waiter: Severino Jacobson MD #### RETCT, CDP, FERI #### [facility] [address] [place] [address] 67854 Take Out Waiter: Lukasz Puga MD Eosinophils/100 WBC (Bld) 1 % Normal 1-4 [facility] Comment on above: Performed By: #### F EBC, HGBE, B12FOL #### [address] [address] Take Out Waiter: Severino Jacobson MD #### RETCT, CDP, FERI #### [facility] [address] [place] [address] 86192 Take Out Waiter: Lukasz Puga MD Immature granulocytes/100 WBC (Bld) 0 % Normal 0 [facility] Comment on above: Performed By: #### F EBC, HGBE, B12FOL #### [address] [address] Take Out Waiter: Severino Jacobson MD #### RETCT, CDP, FERI #### [facility] [address] [place] [address] 02392 Take Out Waiter: Lukasz Puga MD Lymphocytes (Bld) [#/Vol] 3.29 10*3/uL Normal 1.0-4.8 [facility] Comment on above: Performed By: #### F EBC, HGBE, B12FOL #### [address] [address] Take Out Waiter: Severino Jacobson MD #### RETCT, CDP, FERI #### [facility] [address] [place] [address] 72082 Take Out Waiter: Lukasz Puga MD Lymphocytes/100 WBC (Bld) 47 % High 24-44 [facility] Comment on above: Performed By: #### F EBC, HGBE, B12FOL #### [address] [address] Take Out Waiter: Severino Jacobson MD #### RETCT, CDP, FERI #### [facility] [address] [place] [address] 90644 Take Out Waiter: Lukasz Puga MD Monocytes (Bld) [#/Vol] 0.63 10*3/uL Normal 0.2-0.8 [facility] Comment on above: Performed By: #### F EBC, HGBE, B12FOL #### [address] [address] Take Out Waiter: Severino Jacobson MD #### RETCT, CDP, FERI #### [facility] [address] [place] [address] [phone] Take Out Waiter: Lukasz Puga MD Monocytes/100 WBC (Bld) 9 % High 1-7 [facility] Comment on above: Performed By: #### F EBC, HGBE, B12FOL #### [address] [address] Take Out Waiter: Severino Jacobson MD #### RETCT, CDP, FERI #### [facility] [address] [place] [address] 24109 Take Out Waiter: Lukasz Puga MD Neutrophil (Seg) 40 % Normal 36-66 [facility] Comment on above: Performed By: #### F EBC, HGBE, B12FOL #### [address] [address] Take Out Waiter: Severino Jacobson MD #### RETCT, CDP, FERI #### [facility] [address] [place] [address] 78[address] Take Out Waiter: Lukasz Puga MD Erythrocyte distribution width (RBC) [Ratio] 12.6 % Normal 11.8-14.4 [facility] Comment on above: Performed By: #### F EBC, HGBE, B12FOL #### [address] [address] Take Out Waiter: Severino Jacobson MD #### RETCT, CDP, FERI #### [facility] [address] [place] [address] 11371 Take Out Waiter: Lukasz Puga MD Hematocrit (Bld) [Volume fraction] 31.0 % Low 36.3-47.1 [facility] Comment on above: Performed By: #### F EBC, HGBE, B12FOL #### [address] [address] Take Out Waiter: Severino Jacobson MD #### RETCT, CDP, FERI #### [facility] [address] [place] [address] 26548 Take Out Waiter: Lukasz Puga MD Hemoglobin (Bld) [Mass/Vol] 9.9 g/dL Low 11.9-15.1 [facility] Comment on above: Performed By: #### F EBC, HGBE, B12FOL #### [address] [address] Take Out Waiter: Severino Jacobson MD #### VALENCIA, CDP, FERI #### [facility] [address] [place] [address] 75992 Take Out Waiter: Lukasz Puga MD MCH (RBC) [Entitic mass] 29.8 pg Normal 25.2-33.5 [facility] Comment on above: Performed By: #### F EBC, HGBE, B12FOL #### [address] [address] Take Out Waiter: Severino Jacobson MD #### ADELINE [place], FERI #### [facility] [address] [place] [address] 60576 Take Out Waiter: Lukasz Puga MD MCHC (RBC) [Mass/Vol] 31.9 g/dL Normal 28.4-34.8 [facility] Comment on above: Performed By: #### F EBC, HGBE, B12FOL #### [address] [address] Take Out Waiter: Severino Jacobson MD #### RETCT, CDP, FERI #### [facility] [address] [place] [address] 33020 Take Out Waiter: Lukasz Puga MD MCV (RBC) [Entitic vol] 93.4 fL Normal 82.6-102.9 [facility] Comment on above: Performed By: #### F EBC, HGBE, B12FOL #### [address] [address] Take Out Waiter: Severino Jacobson MD #### RETCT, CDP, FERI #### [facility] [address] [place] [address] Take Out Waiter: Lukasz Puga MD NRBC Automated 0.0 per 100 WBC Normal 0.0 [facility] Comment on above: Performed By: #### F EBC, HGBE, B12FOL #### [address] [address] Take Out Waiter: Severino Jacobson MD #### RETCT, CDP, FERI #### [facility] [address] [place] [address] 13213 Take Out Waiter: Lukasz Puga MD Platelet mean volume (Bld) [Entitic vol] 9.9 fL Normal 8.1-13.5 [facility] Comment on above: Performed By: #### F EBC, HGBE, B12FOL #### [address] [address] Take Out Waiter: Severino Jacobson MD #### RETCT, CDP, FERI #### [facility] [address] [place] [address] 08165 Take Out Waiter: Lukasz Puga MD Platelets (Bld) [#/Vol] 296 10*3/uL Normal 138-453 [facility] Comment on above: Performed By: #### F EBC, HGBE, B12FOL #### [address] [address] Take Out Waiter: Severino Jacobson MD #### RETCT, CDP, FERI #### [facility] [address] [place] [address] [place] [address] Take Out Waiter: Lukasz Puga MD RBC (Bld) [#/Vol] 3.32 10*6/uL Low 3.95-5.11 [facility] Comment on above: Performed By: #### F EBC, HGBE, B12FOL #### [address] [address] Take Out Waiter: Severino Jacobson MD #### RETCT, CDP, FERI #### [facility] [address] [place] [address] Take Out Waiter: Lukasz Puga MD WBC (Bld) [#/Vol] 7.0 10*3/uL Normal 3.5-11.3 [facility] Comment on above: Performed By: #### F EBC, HGBE, B12FOL #### [address] [address] Take Out Waiter: Severino Jacobson MD #### RETCT, CDP, FERI #### [facility] [address] [place] [address] Take Out Waiter: Lukasz Puga MD Ferritinon 12-05-2023 Ferritin [Mass/Vol] 39 ng/mL Normal 13-150 [facility] Comment on above: Performed By: #### F EBC, HGBE, B12FOL #### [address] [address] Take Out Waiter: eSverino Jacobson MD #### RETCT, CDP, FERI #### [facility] [address] [place] [address] Take Out Waiter: Lukasz Puga MD Iron Binding Cap.on 12-05-19 24 % Fe Saturation 14 % Low 20-55 [facility] Comment on above: Performed By: #### F EBC, HGBE, B12FOL #### [address] [address] Take Out Waiter: Severino Jacobson MD #### VALENCIA CDP, FERI #### [facility] [address] [place] [address] Take Out Waiter: Lukasz Puga MD Iron [Mass/Vol] 42 ug/dL Normal 37-145 [facility] Comment on above: Performed By: #### F EBC, HGBE, B12FOL #### [address] [address] Take Out Waiter: Severino Jacobson MD #### VALENCIA CDP, FERI #### [facility] [address] [place] [address] Take Out Waiter: Lukasz Puga MD Total Fe Binding Cap 310 ug/dL Normal 250-450 [facility] Comment on above: Performed By: #### F EBC, HGBE, B12FOL #### [address] [address] Take Out Waiter: Severino Jacobson MD #### VALENCIA, CDP, FERI #### [facility] [address] [place] [address] Take Out Waiter: Lukasz Puga MD Unbound Fe Bind Cap 268 ug/dL Normal 112-347 [facility] Comment on above: Performed By: #### F EBC, HGBE, B12FOL #### [address] [address] Take Out Waiter: Severino Jacobson MD #### VALENCIA, CDP, FERI #### [facility] [address] [place] [address] Take Out Waiter: Lukasz Puga MD Retic Counton 12-05-2023 Absolute Retic 0.062 M/uL Normal 0.030-0.080 [facility] Comment on above: Performed By: #### F EBC, HGBE, B12FOL #### [address] [address] Take Out Waiter: Severino Jacobson MD #### RETCT, CDP, FERI #### [facility] [facility] [address] [place] [phone] Take Out Waiter: Lukasz Puga MD IRF 9.6 % Normal 2.7-18.3 [facility] Comment on above: Performed By: #### F EBC, HGBE, B12FOL #### [address] [address] Take Out Waiter: Severino Jacobson MD #### RETCT, CDP, FERI #### [facility] [address] [place] [address] Take Out Waiter: Lukasz Puga MD Retic Count 1.8 % Normal 0.5-1.[address] [facility] Comment on above: Performed By: #### F EBC, HGBE, B12FOL #### [address] [address] Take Out Waiter: Severino Jacobson MD #### FINNCT, CDP, FERI #### [facility] [address] [place] [address] 119[address] Take Out Waiter: Lukasz Puga MD Retic Hemoglobin 28.8 pg Normal 28.2-35.7 [facility] Comment on above: Performed By: #### F EBC, HGBE, B12FOL #### [address] [address] Take Out Waiter: Severino Jacobson MD #### RETCT, CDP, FERI #### [facility] [address] [place] [address] Take Out Waiter: Lukasz Puga MD Surgical Pathology Reporton 12-05-2023 Surgical Pathology Report (NOTE) [id number] [facility] CONSULTING PATHOLOGISTS [facility] [address] [place] [address]. [place], [place] [address] SURGICAL PATHOLOGY CONSULTATION Patient Name: HOMERO DE LEON MR#: [id number] Specimen #[id number] Procedures/Addenda PERIPHERAL BLOOD REPORT Date Ordered: 12/07/2023 Status: Signed Out Date Complete: 12/08/2023 By: Mita Regan M.D. Date Reported: 12/08/2023 INTERPRETATION Peripheral blood: - Normocytic normochromic anemia with unremarkable red blood cell morphology. - White blood cells with normal morphology. No blasts. - Platelets with unremarkable morphology. RESULTS-COMMENTS PERIPHERAL BLOOD STUDY CBC: Please see the electronic health record for CBC parameters ([id number], 12/05/2023, 13:35). PLATELETS: Platelets show normal morphology. LEUKOCYTES: White blood cells show normal morphology. No atypical lymphocytes. No dysplasia. There are no blasts. ERYTHROCYTES: Normocytic normochromic anemia. Red blood cells show normal morphology. Note: The electronic health record is reviewed. Mita Regan M.D. Source: A: Peripheral Blood Normal [facility] CBC with Diffon 11-06-2023 Abs. Basophil 0.04 k/uL Normal 0.00-0.20 [facility] Comment on above: Performed By: #### C DPMEGHA, LIPRF #### [facility] [address] [place] [address] [phone] Take Out Waiter: Severino Jacobson MD Abs.Imm.Granulocyte <0.03 Normal 0.00-0.30 [facility] Comment on above: Performed By: #### C DP CP, LIPRF #### [facility] [address] [place] [address] [phone] Take Out Waiter: Severino Jacobson MD Abs.Neutrophil (Seg) 4.76 k/uL Normal 1.50-8.10 [facility] Comment on above: Performed By: #### C DP, CP, LIPRF #### [address] [address] Take Out Waiter: Severino Jacobson MD Basophils/100 WBC (Bld) 1 % Normal 0-2 [facility] Comment on above: Performed By: #### C DP, CP, LIPRF #### [address] [address] Take Out Waiter: Severino Jacobson MD Eosinophils (Bld) [#/Vol] 0.24 10*3/uL Normal 0.00-0.44 [facility] Comment on above: Performed By: #### C DP, CP, LIPRF #### [address] [address] Take Out Waiter: Severino Jacobson MD Eosinophils/100 WBC (Bld) 3 % Normal 1-4 [facility] Comment on above: Performed By: #### C DP, CP, LIPRF #### [place] [address] Take Out Waiter: Severino Jacobson MD Erythrocyte distribution width (RBC) [Ratio] 12.3 % Normal 11.8-14.4 [facility] Comment on above: Performed By: #### C DP, CP, LIPRF #### [place] [address] Take Out Waiter: Severino Jacobson MD Hematocrit (Bld) [Volume fraction] 35.5 % Low 36.3-47.1 [facility] Comment on above: Performed By: #### C DP, CP, LIPRF #### [facility] [address] [place] [phone] Take Out Waiter: Severino Jacobson MD Hemoglobin (Bld) [Mass/Vol] 11.2 g/dL Low 11.9-15.1 [facility] Comment on above: Performed By: #### C DP, CP, LIPRF #### [place] [address] Take Out Waiter: Severino Jacobson MD Immature granulocytes/100 WBC (Bld) 0 % Normal 0 [facility] Comment on above: Performed By: #### C DP, CP, LIPRF #### [place] [address] Take Out Waiter: Severino Jacobson MD Lymphocytes (Bld) [#/Vol] 2.47 10*3/uL Normal 1.10-3.70 [facility] Comment on above: Performed By: #### C DP, CP, LIPRF #### [place] [address] Take Out Waiter: Severino Jacobson MD Lymphocytes/100 WBC (Bld) 31 % Normal 24-43 [facility] Comment on above: Performed By: #### C DP, CP, LIPRF #### [place] [address] Take Out Waiter: Severino Jacobson MD MCH (RBC) [Entitic mass] 29.6 pg Normal 25.2-33.5 [facility] Comment on above: Performed By: #### C DP, CP, LIPRF #### [place] [address] Take Out Waiter: Severino Jacobson MD MCHC (RBC) [Mass/Vol] 31.5 g/dL Normal 28.4-34.8 [facility] Comment on above: Performed By: #### C DP, CP, LIPRF #### [place] [address] Take Out Waiter: Severino Jacobson MD MCV (RBC) [Entitic vol] 93.9 fL Normal 82.6-102.9 [facility] Comment on above: Performed By: #### C DP, CP, LIPRF #### [address] [address] Take Out Waiter: Severino Jacobson MD Monocytes (Bld) [#/Vol] 0.56 10*3/uL Normal 0.10-1.20 [facility] Comment on above: Performed By: #### C DP, CP, LIPRF #### [address] [address] Take Out Waiter: Severino Jacobson MD Monocytes/100 WBC (Bld) 7 % Normal 3-12 [facility] Comment on above: Performed By: #### C DP, CP, LIPRF #### [address] [address] Take Out Waiter: Severino Jacobosn MD Neutrophil (Seg) 58 % Normal 36-65 [facility] Comment on above: Performed By: #### C DP, CP, LIPRF #### [address] [address] Take Out Waiter: Severino Jacobson MD NRBC Automated 0.0 per 100 WBC Normal 0.0 [facility] Comment on above: Performed By: #### C DP, CP, LIPRF #### [address] [address] Take Out Waiter: Severino Jacobson MD Platelet mean volume (Bld) [Entitic vol] 10.5 fL Normal 8.1-13.5 [facility] Comment on above: Performed By: #### C DP, CP, LIPRF #### [address] [address] Take Out Waiter: Severino Jacobson MD Platelets (Bld) [#/Vol] 501 10*3/uL High 138-453 [facility] Comment on above: Performed By: #### C DP, CP, LIPRF #### [address] [address] Take Out Waiter: Severino Jacobson MD RBC (Bld) [#/Vol] 3.78 10*6/uL Low 3.95-5.11 [facility] Comment on above: Performed By: #### C DP, CP, LIPRF #### [facility] [address] [place] [address] Take Out Waiter: Severino Jacobson MD WBC (Bld) [#/Vol] 8.1 10*3/uL Normal 3.5-11.3 [facility] Comment on above: Performed By: #### C DP, CP, LIPRF #### [facility] [address] [place] [address] Take Out Waiter: Severino Jacobson MD Comp Metabolic Profon 2023 Albumin [Mass/Vol] 4.8 g/dL Normal 3.5-5.2 [facility] Comment on above: Performed By: #### C DP, CP, LIPRF #### [facility] [address] [place] [address] Take Out Waiter: Severino Jacobson MD Albumin/Glob Ratio 2.0 Normal 1.0-2.5 [facility] Comment on above: Performed By: #### C DP, CP, LIPRF #### [facility] [address] [place] [address] Take Out Waiter: Severino Jacobson MD Alkaline Phos 43 U/L Normal 35-104 [facility] Comment on above: Performed By: #### C DP, CP, LIPRF #### [facility] [address] [place] [address] Take Out Waiter: Severino Jacobson MD ALT [Catalytic activity/Vol] 14 U/L Normal 10-35 [facility] Comment on above: Performed By: #### C DP, CP, LIPRF #### [facility] [address] [place] [address] Take Out Waiter: Severino Jacobson MD Anion gap [Moles/Vol] 10 mmol/L Normal 9-16 [facility] Comment on above: Performed By: #### C DP, CP, LIPRF #### [address] [address] Take Out Waiter: Severino Jacobson MD AST [Catalytic activity/Vol] 27 U/L Normal 10-35 [facility] Comment on above: Performed By: #### C DP, CP, LIPRF #### [address] [address] Take Out Waiter: Severino Jacobson MD Bilirubin [Mass/Vol] 0.6 mg/dL Normal 0.00-1.20 [facility] Comment on above: Performed By: #### C DP, CP, LIPRF #### [address] [address] Take Out Waiter: Severino Jacobson MD Calcium [Mass/Vol] 9.5 mg/dL Normal 8.6-10.4 [facility] Comment on above: Performed By: #### C DP, CP, LIPRF #### [address] [address] Take Out Waiter: Severino Jacobson MD Chloride [Moles/Vol] 103 mmol/L Normal 98-107 [facility] Comment on above: Performed By: #### C DP, CP, LIPRF #### [facility] [address] [place] [address] Take Out Waiter: Severino Jacobson MD CO2 [Moles/Vol] 26 mmol/L Normal 20-31 [facility] Comment on above: Performed By: #### C DP, CP, LIPRF #### [facility] [address] [place] [address] Take Out Waiter: Severino Jacobson MD Creatinine [Mass/Vol] 0.8 mg/dL Normal 0.50-0.90 [facility] Comment on above: Performed By: #### C MEGHA MIJARES, LIPRF #### [address] [address] Take Out Waiter: Severino Jacobson MD GFR/1.73 sq M.predicted among non-blacks MDRD (S/P/Bld) [Vol rate/Area] mL/min/{1.73_m2} Normal >60 [facility] Comment on above: Result Comment: [...] By: #### C MEGHA MIJARES, LIPRF #### [address] [address] Take Out Waiter: Severino Jacobson MD Glucose [Mass/Vol] 90 mg/dL Normal 74-99 [facility] Comment on above: Performed By: #### C MEGHA MIJARES, LIPRF #### [facility] [address] [place] [address] Take Out Waiter: Severino Jacobson MD Potassium [Moles/Vol] 3.9 mmol/L Normal 3.7-5.3 [facility] Comment on above: Performed By: #### C MEGHA MIJARES, LIPRF #### [facility] [address] [place] [address] Take Out Waiter: Severino Jacobson MD Protein [Mass/Vol] 7.7 g/dL Normal 6.6-8.7 [facility] Comment on above: Performed By: #### C DYLLAN CP, LIPRF #### [facility] [address] [place] [address] Take Out Waiter: Severino Jacobson MD Sodium [Moles/Vol] 139 mmol/L Normal 136-145 [facility] Comment on above: Performed By: #### C MEGHA MIJARES, LIPRF #### [address] [address] Take Out Waiter: Severino Jacobson MD Urea nitrogen [Mass/Vol] 12 mg/dL Normal 6-20 [facility] Comment on above: Performed By: #### C MEGHA MIJARES, LIPRF #### [facility] [address] [place] [address] Take Out Waiter: Severino Jacobson MD Lipid Prof, Fastingon 2023 Cholesterol [Mass/Vol] 178 mg/dL Normal 0-199 [facility] Comment on above: Result Comment: Cholesterol Guidelines: <200 Desirable 200-240 Borderline >240 Undesirable Performed By: #### C MEGHA MIJARES, LIPRF #### [address] [address] Take Out Waiter: Severino Jacobson MD Cholesterol in HDL [Mass/Vol] 50 mg/dL Normal >40 [facility] Comment on above: Result Comment: HDL Guidelines: <40 Undesirable 40-59 Borderline >59 Desirable Performed By: #### C MEGHA MIJARES, LIPRF #### [address] [address] Take Out Waiter: Severino Jacobson MD Cholesterol in LDL [Mass/Vol] 115 mg/dL High 0-100 [facility] Comment on above: Result Comment: LDL Guidelines: <100 Desirable 100-129 Near to/above Desirable 130-159 Borderline >159 Undesirable Direct (measured) LDL and calculated LDL are not interchangeable tests. Performed By: #### C MEGHA MIJARES, LIPRF #### [address] [address] Take Out Waiter: Severino Jacobson MD Cholesterol in VLDL [Mass/Vol] 13 mg/dL Normal [facility] Comment on above: Performed By: #### C DP, CP, LIPRF #### [facility] [address] [place] [address] Take Out Waiter: Severino Jacobson MD Cholesterol.total/Chol esterol in HDL [Mass ratio] 4.0 {ratio} Normal [facility] Comment on above: Performed By: #### C DP, CP, LIPRF #### [address] [address] Take Out Waiter: Severino Jacobson MD Triglyceride,Fasting 64 mg/dL Normal 0-149 [facility] Comment on above: Result Comment: Triglyceride Guidelines: <150 Desirable 150-199 Borderline 200-499 High >499 Very high Based on AHA Guidelines for fasting triglyceride, February 2012. Performed By: #### C DP, CP, LIPRF #### [address] [address] Take Out Waiter: Severino Jacobson MD CBC with Diffon 09-02-2023 Abs. Basophil <0.03 Normal 0.00-0.20 [facility] Comment on above: Performed By: #### C DP LIPRF, CP #### [address] [address] Take Out Waiter: Severino Jacobson MD Abs.Imm.Granulocyte <0.03 Normal 0.00-0.30 [facility] Comment on above: Performed By: #### C DP LIPRF, CP #### [address] [address] Take Out Waiter: Severino Jacobson MD Abs.Neutrophil (Seg) 3.88 k/uL Normal 1.50-8.10 [facility] Comment on above: Performed By: #### C DP, LIPRF, CP #### [facility] [address] [place] [address] Take Out Waiter: Severino Jacobson MD Basophils/100 WBC (Bld) 0 % Normal 0-2 [facility] Comment on above: Performed By: #### C FANNIE MIJARES, CP #### [address] [address] Take Out Waiter: Severino Jacobson MD Eosinophils (Bld) [#/Vol] 0.18 10*3/uL Normal 0.00-0.44 [facility] Comment on above: Performed By: #### C DP LIPRF, CP #### [address] [address] Take Out Waiter: Severino Jacobson MD Eosinophils/100 WBC (Bld) 3 % Normal 1-4 [facility] Comment on above: Performed By: #### C FANNIE MIJARES, CP #### [address] [address] Take Out Waiter: Severino Jacobson MD Erythrocyte distribution width (RBC) [Ratio] 12.6 % Normal 11.8-14.4 [facility] Comment on above: Performed By: #### C FANNIE MIJARES, CP #### [address] [address] Take Out Waiter: Severino Jacobson MD Hematocrit (Bld) [Volume fraction] 34.6 % Low 36.3-47.1 [facility] Comment on above: Performed By: #### C FANNIE MIJARES, CP #### [address] [address] Take Out Waiter: Severino Jacobson MD Hemoglobin (Bld) [Mass/Vol] 10.8 g/dL Low 11.9-15.1 [facility] Comment on above: Performed By: #### C FANNIE MIJARES, CP #### [address] [address] Take Out Waiter: Severino Jacobson MD Immature granulocytes/100 WBC (Bld) 0 % Normal 0 [facility] Comment on above: Performed By: #### C DYLLAN LIPKOURTNEY, CP #### [address] [address] Take Out Waiter: Severino Jacobson MD Lymphocytes (Bld) [#/Vol] 2.64 10*3/uL Normal 1.10-3.70 [facility] Comment on above: Performed By: #### C DP LIPRF, CP #### [address] [address] Take Out Waiter: Severino Jacobson MD Lymphocytes/100 WBC (Bld) 37 % Normal 24-43 [facility] Comment on above: Performed By: #### C FANNIE MIJARES, CP #### [address] [address] Take Out Waiter: Sevreino Jacobson MD MCH (RBC) [Entitic mass] 29.7 pg Normal 25.2-33.5 [facility] Comment on above: Performed By: #### C FANNIE MIJARES, CP #### [address] [address] Take Out Waiter: Severino Jacobson MD MCHC (RBC) [Mass/Vol] 31.2 g/dL Normal 28.4-34.8 [facility] Comment on above: Performed By: #### C FANNIE MIJARES, CP #### [address] [address] Take Out Waiter: Severino Jacobson MD MCV (RBC) [Entitic vol] 95.1 fL Normal 82.6-102.9 [facility] Comment on above: Performed By: #### C FANNIE MIJARES, CP #### [address] [address] Take Out Waiter: Severino Jacobson MD Monocytes (Bld) [#/Vol] 0.41 10*3/uL Normal 0.10-1.20 [facility] Comment on above: Performed By: #### C DP, LIPRF, CP #### [address] [address] Take Out Waiter: Severino Jacobson MD Monocytes/100 WBC (Bld) 6 % Normal 3-12 [facility] Comment on above: Performed By: #### C DP, LIPRF, CP #### [address] [address] Take Out Waiter: Severino Jacobson MD Neutrophil (Seg) 54 % Normal 36-65 [facility] Comment on above: Performed By: #### C DP, LIPRF, CP #### [address] [address] Take Out Waiter: Severino Jacobson MD NRBC Automated 0.0 per 100 WBC Normal 0.0 [facility] Comment on above: Performed By: #### C DP, LIPRF, CP #### [facility] [address] [place] [address] Take Out Waiter: Severino Jacobson MD Platelet mean volume (Bld) [Entitic vol] 10.7 fL Normal 8.1-13.5 [facility] Comment on above: Performed By: #### C DP, LIPRF, CP #### [address] [address] Take Out Waiter: Severino Jacobson MD Platelets (Bld) [#/Vol] 460 10*3/uL High 138-453 [facility] Comment on above: Performed By: #### C DP, LIPRF, CP #### [address] [address] Take Out Waiter: Severino Jacobson MD RBC (Bld) [#/Vol] 3.64 10*6/uL Low 3.95-5.11 [facility] Comment on above: Performed By: #### C DP, LIPRF, CP #### [address] [address] Take Out Waiter: Severino Jacobson MD WBC (Bld) [#/Vol] 7.2 10*3/uL Normal 3.5-11.3 [facility] Comment on above: Performed By: #### C DP, LIPRF, CP #### [address] [address] Take Out Waiter: Severino Jacobson MD Comp Metabolic Profon 2023 Albumin [Mass/Vol] 4.4 g/dL Normal 3.5-5.2 [facility] Comment on above: Performed By: #### C DP, LIPRF, CP #### [facility] [address] [place] [address] Take Out Waiter: Severino Jacobson MD Albumin/Glob Ratio 2.0 Normal 1.0-2.5 [facility] Comment on above: Performed By: #### C DP, LIPRF, CP #### [address] [address] Take Out Waiter: Severino Jacobson MD Alkaline Phos 35 U/L Normal 35-104 [facility] Comment on above: Performed By: #### C DP, LIPRF, CP #### [facility] [address] [place] [address] Take Out Waiter: Severino Jacobson MD ALT [Catalytic activity/Vol] 12 U/L Normal 10-35 [facility] Comment on above: Performed By: #### C DP, LIPRF, CP #### [facility] [address] [place] [address] Take Out Waiter: Severino Jacobson MD Anion gap [Moles/Vol] 9 mmol/L Normal 9-16 [facility] Comment on above: Performed By: #### C DP, LIPRF, CP #### [facility] [address] [place] [address] Take Out Waiter: Severino Jacobson MD AST [Catalytic activity/Vol] 25 U/L Normal 10-35 [facility] Comment on above: Performed By: #### C FANNIE MIJARES CP #### [address] [address] Take Out Waiter: Severino Jacobson MD Bilirubin [Mass/Vol] 0.6 mg/dL Normal 0.00-1.20 [facility] Comment on above: Performed By: #### C FANNIE MIJARES, CP #### [address] [address] Take Out Waiter: Severino Jacobson MD Calcium [Mass/Vol] 8.9 mg/dL Normal 8.6-10.4 [facility] Comment on above: Performed By: #### C FANNIE MIJARES, CP #### [address] [address] Take Out Waiter: Seveirno Jacobson MD Chloride [Moles/Vol] 107 mmol/L Normal 98-107 [facility] Comment on above: Performed By: #### C FANNIE MIJARES, CP #### [address] [address] Take Out Waiter: Severino Jacobson MD CO2 [Moles/Vol] 24 mmol/L Normal 20-31 [facility] Comment on above: Performed By: #### C FANNIE MIJARES, CP #### [address] [address] Take Out Waiter: Severino Jacobson MD Creatinine [Mass/Vol] 0.7 mg/dL Normal 0.50-0.90 [facility] Comment on above: Performed By: #### C FANNIE MIJARES, CP #### [address] [address] Take Out Waiter: Severino Jacobson MD GFR/1.73 sq M.predicted among non-blacks MDRD (S/P/Bld) [Vol rate/Area] mL/min/{1.73_m2} Normal >60 [facility] Comment on above: Result Comment: [...] By: #### C FANNIE MIJARES, CP #### [address] [address] Take Out Waiter: Severino Jacobson MD Glucose [Mass/Vol] 97 mg/dL Normal 74-99 [facility] Comment on above: Performed By: #### C FANNIE MIJARES, CP #### [place] [address] Take Out Waiter: Severino Jacobson MD Potassium [Moles/Vol] 4.0 mmol/L Normal 3.7-5.3 [facility] Comment on above: Performed By: #### C FANNIE MIJARES, CP #### [facility] [address] [place] [address] Take Out Waiter: Severino Jacobson MD Protein [Mass/Vol] 7.3 g/dL Normal 6.6-8.7 [facility] Comment on above: Performed By: #### C FANNIE MIJARES, CP #### [facility] [address] [place] [address] Take Out Waiter: Severino Jacobson MD Sodium [Moles/Vol] 140 mmol/L Normal 136-145 [facility] Comment on above: Performed By: #### C FANNIE MIJARES, CP #### [facility] [address] [place] [address] Take Out Waiter: Severino Jacobson MD Urea nitrogen [Mass/Vol] 12 mg/dL Normal 6-20 [facility] Comment on above: Performed By: #### C FANNIE MIJARES, CP #### [address] [address] Take Out Waiter: Severino Jacobson MD Lipid Prof, Fastingon 2023 Cholesterol [Mass/Vol] 164 mg/dL Normal 0-199 [facility] Comment on above: Result Comment: Cholesterol Guidelines: <200 Desirable 200-240 Borderline >240 Undesirable Performed By: #### C FANNIE MIJARES, CP #### [address] [address] Take Out Waiter: Severino Jacobson MD Cholesterol in HDL [Mass/Vol] 52 mg/dL Normal >40 [facility] Comment on above: Result Comment: HDL Guidelines: <40 Undesirable 40-59 Borderline >59 Desirable Performed By: #### C FANNIE MIJARES, CP #### [address] [address] Take Out Waiter: Severino Jacobson MD Cholesterol in LDL [Mass/Vol] 102 mg/dL High 0-100 [facility] Comment on above: Result Comment: LDL Guidelines: <100 Desirable 100-129 Near to/above Desirable 130-159 Borderline >159 Undesirable Direct (measured) LDL and calculated LDL are not interchangeable tests. Performed By: #### C FANNIE MIJARES, CP #### [address] [address] Take Out Waiter: Severino Jacobson MD Cholesterol in VLDL [Mass/Vol] 10 mg/dL Normal [facility] Comment on above: Performed By: #### C FANNIE MIJARES, CP #### [address] [address] Take Out Waiter: Severino Jacobson MD Cholesterol.total/Chol esterol in HDL [Mass ratio] 3.0 {ratio} Normal [facility] Comment on above: Performed By: #### C DYLLAN LIPKOURTNEY, CP #### [facility] [address] [place], [place] [id number] Take Out Waiter: Severino Jacobson MD Triglyceride,Fasting 49 mg/dL Normal 0-149 [facility] Comment on above: Result Comment: Triglyceride Guidelines: <150 Desirable 150-199 Borderline 200-499 High >499 Very high Based on AHA Guidelines for fasting triglyceride, February 2012. Performed By: #### C DYLLAN LIPRF, CP #### [facility] [address], [place] [id number] Take Out Waiter: Severino Jacobson MD SARS/FLU A+B/RSV by NAAT/Mol ecularon 07-17-2023 SARS/FLU A+B/RSV by NAAT/Molecular FLU [...] operators who are performing tests using either GeneTravee DX or GeneCareLuLu systems and is limited to laboratories that [...] repeat. Fact Sheet for Healthcare Providers: https://www.fda.gov/ media/090545/downloa d Fact Sheet for Patients: https://www.fda.gov/ media/300340/downloa d Normal [facility] Comment on above: Performed By: #### C OVFLR #### [facility] ([id number]) [address] [place] [address], [place] [address] QuantiFERON TBon 04-14-2023 Quanti Americo minus NIL >10.00 Normal [facility] Comment on above: Performed By: #### A QF #### [facility] [address] [place] [address] Take Out Waiter: Tai Lopez MD Quanti TB Gold Plus Negative Normal Negative [facility] Comment on above: Result Comment: [...] Mycobacterium tuberculosis Infection --- [place], 2010 (http://www.cdc.gov/mmwr/preview/mmwrhtml/qo4463p4.htm), for more information concerning test performance in low-prevalence populations and use in occupational screening. Performed By: #### A QF #### [facility] [address] [place] [address] Take Out Waiter: Tai Lopez MD Quanti TB1 minus NIL 0.10 IU/mL Normal 0.00-0.34 [facility] Comment on above: Performed By: #### A QF #### [facility] [address] [place] [address] Take Out Waiter: Tai Lopez MD Quanti TB2 minus NIL 0.10 IU/mL Normal 0.00-0.34 [facility] Comment on above: Performed By: #### A QF #### [facility] [address] [place] [address] Take Out Waiter: Tai Lopez MD QuantiFERON NIL 0.03 IU/mL Normal [facility] Comment on above: Result Comment: (NOT E) Performed By: [facility] [address] [place] [address] [place]: Royal Banda MD, PhD CLIA Number: [id number] Performed By: #### A QF #### [facility] access [facility] [address] [place] [address] Take Out Waiter: Tai Lopez MD CBC with Diffon 04-11-2023 Abs. Basophil 0.05 k/uL Normal 0.00-0.20 [facility] Comment on above: Performed By: #### L IPRF, CDP, PHEP, CP, HIVCMB #### [address] [place] [address] Take Out Waiter: Severino Jacobson MD Abs.Imm.Granulocyte 0.03 k/uL Normal 0.00-0.30 [facility] Comment on above: Performed By: #### L IPRF, CDP, PHEP, CP, HIVCMB #### [place] [address] Take Out Waiter: Severino Jacobson MD Abs.Neutrophil (Seg) 4.20 k/uL Normal 1.50-8.10 [facility] Comment on above: Performed By: #### L IPRF, CDP, PHEP, CP, HIVCMB #### [place] [address] Take Out Waiter: Severino Jacobson MD Basophils/100 WBC (Bld) 1 % Normal 0-2 [facility] Comment on above: Performed By: #### L IPRF, CDP, PHEP, CP, HIVCMB #### [place] [address] Take Out Waiter: Severino Jacobson MD Eosinophils (Bld) [#/Vol] 0.36 10*3/uL Normal 0.00-0.44 [facility] Comment on above: Performed By: #### L IPRF, CDP, PHEP, CP, HIVCMB #### [place] [address] Take Out Waiter: Severino Jacobson MD Eosinophils/100 WBC (Bld) 5 % High 1-4 [facility] Comment on above: Performed By: #### L IPRF, CDP, PHEP, CP, HIVCMB #### [place] [address] Take Out Waiter: Severino Jacobson MD Erythrocyte distribution width (RBC) [Ratio] 11.6 % Low 11.8-14.4 [facility] Comment on above: Performed By: #### L IPRF, CDP, PHEP, CP, HIVCMB #### [facility] [address] [place] [address] Take Out Waiter: Severino Jacobson MD Hematocrit (Bld) [Volume fraction] 34.3 % Low 36.3-47.1 [facility] Comment on above: Performed By: #### L IPRF, CDP, PHEP, CP, HIVCMB #### [facility] [address] [place] [address] Take Out Waiter: Severino Jacobson MD Hemoglobin (Bld) [Mass/Vol] 10.9 g/dL Low 11.9-15.1 [facility] Comment on above: Performed By: #### L IPRF, CDP, PHEP, CP, HIVCMB #### [address] [address] Take Out Waiter: Severino Jacobson MD Immature granulocytes/100 WBC (Bld) 0 % Normal 0 [facility] Comment on above: Performed By: #### L IPRF, CDP, PHEP, CP, HIVCMB #### [place] [address] Take Out Waiter: Severino Jacobson MD Lymphocytes (Bld) [#/Vol] 2.55 10*3/uL Normal 1.10-3.70 [facility] Comment on above: Performed By: #### L IPRF, CDP, PHEP, CP, HIVCMB #### [facility] [address] [place] [address] Take Out Waiter: Severino Jacobson MD Lymphocytes/100 WBC (Bld) 33 % Normal 24-43 [facility] Comment on above: Performed By: #### L IPRF, CDP, PHEP, CP, HIVCMB #### [facility] [address] [place] [address] Take Out Waiter: Severino Jacobson MD MCH (RBC) [Entitic mass] 30.1 pg Normal 25.2-33.5 [facility] Comment on above: Performed By: #### L IPRF, CDP, PHEP, CP, HIVCMB #### [address] [address] Take Out Waiter: Severino Jacobson MD MCHC (RBC) [Mass/Vol] 31.8 g/dL Normal 28.4-34.8 [facility] Comment on above: Performed By: #### L IPRF, CDP, PHEP, CP, HIVCMB #### [address] [address] Take Out Waiter: Severino Jacobson MD MCV (RBC) [Entitic vol] 94.8 fL Normal 82.6-102.9 [facility] Comment on above: Performed By: #### L IPRF, CDP, PHEP, CP, HIVCMB #### [address] [address] Take Out Waiter: Severino Jacobson MD Monocytes (Bld) [#/Vol] 0.55 10*3/uL Normal 0.10-1.20 [facility] Comment on above: Performed By: #### L IPRF, CDP, PHEP, CP, HIVCMB #### [address] [address] Take Out Waiter: Severino Jacobson MD Monocytes/100 WBC (Bld) 7 % Normal 3-12 [facility] Comment on above: Performed By: #### L IPRF, CDP, PHEP, CP, HIVCMB #### [address] [address] Take Out Waiter: Severino Jacobson MD Neutrophil (Seg) 54 % Normal 36-65 [facility] Comment on above: Performed By: #### L IPRF, CDP, PHEP, CP, HIVCMB #### [address] [address] Take Out Waiter: Severino Jacobson MD NRBC Automated 0.0 per 100 WBC Normal 0.0 [facility] Comment on above: Performed By: #### L IPRF, CDP, PHEP, CP, HIVCMB #### [facility] [address] [place] [address] Take Out Waiter: Severino Jacobson MD Platelet mean volume (Bld) [Entitic vol] 11.0 fL Normal 8.1-13.5 [facility] Comment on above: Performed By: #### L IPRF, CDP, PHEP, CP, HIVCMB #### [facility] [address] [place] [address] Take Out Waiter: Severino Jacobson MD Platelets (Bld) [#/Vol] 382 10*3/uL Normal 138-453 [facility] Comment on above: Performed By: #### L IPRF, CDP, PHEP, CP, HIVCMB #### [facility] [address] [place] [address] Take Out Waiter: Severino Jacobson MD RBC (Bld) [#/Vol] 3.62 10*6/uL Low 3.95-5.11 [facility] Comment on above: Performed By: #### L IPRF, CDP, PHEP, CP, HIVCMB #### [facility] [address] [place] [address] Take Out Waiter: Severino Jacobson MD WBC (Bld) [#/Vol] 7.7 10*3/uL Normal 3.5-11.3 [facility] Comment on above: Performed By: #### L IPRF, CDP, PHEP, CP, HIVCMB #### [facility] [address] [place] [address] Take Out Waiter: Severino Jacobson MD Comp Metabolic Profon 2022 Albumin [Mass/Vol] 4.4 g/dL Normal 3.5-5.2 [facility] Comment on above: Performed By: #### L IPRF, CDP, PHEP, CP, HIVCMB #### [facility] [address] [place] [address] Take Out Waiter: Severino Jacobson MD Albumin/Glob Ratio 2.0 Normal 1.0-2.5 [facility] Comment on above: Performed By: #### L IPRF, CDP, PHEP, CP, HIVCMB #### [facility] [address] [place] [address] Take Out Waiter: Severino Jacobson MD Alkaline Phos 39 U/L Normal 35-104 [facility] Comment on above: Performed By: #### L IPRF, CDP, PHEP, CP, HIVCMB #### [address] [address] Take Out Waiter: Severino Jacobson MD ALT [Catalytic activity/Vol] 10 U/L Normal 10-35 [facility] Comment on above: Performed By: #### L IPRF, CDP, PHEP, CP, HIVCMB #### [facility] [address] [place] [address] Take Out Waiter: Severino Jacobson MD Anion gap [Moles/Vol] 9 mmol/L Normal 9-16 [facility] Comment on above: Performed By: #### L IPRF, CDP, PHEP, CP, HIVCMB #### [facility] [address] [place] [address] Take Out Waiter: Severino Jacobson MD AST [Catalytic activity/Vol] 22 U/L Normal 10-35 [facility] Comment on above: Performed By: #### L IPRF, CDP, PHEP, CP, HIVCMB #### [facility] [address] [place] [address] Take Out Waiter: Severino Jacobson MD Bilirubin [Mass/Vol] 0.3 mg/dL Normal 0.00-1.20 [facility] Comment on above: Performed By: #### L IPRF, CDP, PHEP, CP, HIVCMB #### [address] [address] Take Out Waiter: Severino Jacobson MD Calcium [Mass/Vol] 9.3 mg/dL Normal 8.6-10.4 [facility] Comment on above: Performed By: #### L IPRF, CDP, PHEP, CP, HIVCMB #### [address] [address] Take Out Waiter: Severino Jacobson MD Chloride [Moles/Vol] 104 mmol/L Normal 98-107 [facility] Comment on above: Performed By: #### L IPRF, CDP, PHEP, CP, HIVCMB #### [address] [address] Take Out Waiter: Severino Jacobson MD CO2 [Moles/Vol] 27 mmol/L Normal 20-31 [facility] Comment on above: Performed By: #### L IPRF, CDP, PHEP, CP, HIVCMB #### [address] [address] Take Out Waiter: Severino Jacobson MD Creatinine [Mass/Vol] 0.7 mg/dL Normal 0.50-0.90 [facility] Comment on above: Performed By: #### L IPRF, CDP, PHEP, CP, HIVCMB #### [address] [address] Take Out Waiter: Severino Jacobson MD GFR/1.73 sq M.predicted among non-blacks MDRD (S/P/Bld) [Vol rate/Area] mL/min/{1.73_m2} Normal >60 [facility] Comment on above: Result Comment: [...] L IPRF, CDP, PHEP, CP, HIVCMB #### [facility] [address] [place] [address] Take Out Waiter: Severino Jacobson MD Glucose [Mass/Vol] 82 mg/dL Normal 74-99 [facility] Comment on above: Performed By: #### L IPRF, CDP, PHEP, CP, HIVCMB #### [address] [address] Take Out Waiter: Severino Jacobson MD Potassium [Moles/Vol] 3.8 mmol/L Normal 3.7-5.3 [facility] Comment on above: Performed By: #### L IPRF, CDP, PHEP, CP, HIVCMB #### [address] [address] Take Out Waiter: Severino Jacobson MD Protein [Mass/Vol] 7.2 g/dL Normal 6.6-8.7 [facility] Comment on above: Performed By: #### L IPRF, CDP, PHEP, CP, HIVCMB #### [facility] [address] [place] [address] Take Out Waiter: Severino Jacobson MD Sodium [Moles/Vol] 140 mmol/L Normal 136-145 [facility] Comment on above: Performed By: #### L IPRF, CDP, PHEP, CP, HIVCMB #### [facility] [address] [place] [address] Take Out Waiter: Severino Jacobson MD Urea nitrogen [Mass/Vol] 14 mg/dL Normal 6-20 [facility] Comment on above: Performed By: #### L IPRF, CDP, PHEP, CP, HIVCMB #### [facility] [address] [place] [address] Take Out Waiter: Severino Jacobson MD HIV Ag/Abon 04-11-2023 HIV Ag/Ab Non-Reactive Normal [facility] Comment on above: Result Comment: No l aboratory evidence of HIV infection. If acute HIV infection is suspected, consider testing for HIV-1 RNA. Performed By: #### C DP, LIPRF, CP #### [address] [address] Take Out Waiter: Severino Jacobson MD Hepatitis Acute [facility] 04-11 Hep A Ab,IgM Non-Reactive Normal [facility] Comment on above: Performed By: #### L IPRF, CDP, PHEP, CP, HIVCMB #### [facility] [address] [place] [address] Take Out Waiter: Severino Jacobson MD Hep B Core Ab,IgM Non-Reactive Normal [facility] Comment on above: Performed By: #### L IPRF, CDP, PHEP, CP, HIVCMB #### [facility] [address] [place] [address] Take Out Waiter: Severino Jacobson MD Hep B Surf Ag Non-Reactive Normal [facility] Comment on above: Performed By: #### L IPRF, CDP, PHEP, CP, HIVCMB #### [facility] [address] [place] [address] Take Out Waiter: Severino Jacobson MD Hep C Ab Non-Reactive Normal [facility] Comment on above: Result Comment: The hepatitis [...] L IPRF, CDP, PHEP, CP, HIVCMB #### [facility] [address] [place] [address] Take Out Waiter: Severino Jacobson MD Lipid Prof, Fastingon 2022 Cholesterol [Mass/Vol] 155 mg/dL Normal 0-199 [facility] Comment on above: Result Comment: Cholesterol Guidelines: <200 Desirable 200-240 Borderline >240 Undesirable Performed By: #### C EKTA MIJARESRF, CP #### [address] [id number] Take Out Waiter: Severino Jacobson MD Cholesterol in HDL [Mass/Vol] 49 mg/dL Normal >40 [facility] Comment on above: Result Comment: HDL Guidelines: <40 Undesirable 40-59 Borderline >59 Desirable Performed By: #### C DYLLAN LIPRF, CP #### [address] [address] Take Out Waiter: Severino Jacobson MD Cholesterol in LDL [Mass/Vol] 98 mg/dL Normal 0-100 [facility] Comment on above: Result Comment: LDL Guidelines: <100 Desirable 100-129 Near to/above Desirable 130-159 Borderline >159 Undesirable Direct (measured) LDL and calculated LDL are not interchangeable tests. Performed By: #### C FANNIE MIJARES, CP #### [address] [address] Take Out Waiter: Severino Jacobson MD Cholesterol in VLDL [Mass/Vol] 8 mg/dL Normal [facility] Comment on above: Performed By: #### C DYLLAN LIPRF, CP #### [address] [address] Take Out Waiter: Severino Jacobsno MD Cholesterol.total/Chol esterol in HDL [Mass ratio] 3.0 {ratio} Normal [facility] Comment on above: Performed By: #### C DYLLAN LIPRF, CP #### [address] [address] Take Out Waiter: Severino Jacobson MD Triglyceride,Fasting 38 mg/dL Normal 0-149 [facility] Comment on above: Result Comment: Triglyceride Guidelines: <150 Desirable 150-199 Borderline 200-499 High >499 Very high Based on AHA Guidelines for fasting triglyceride, February 2012. Performed By: #### C DYLLAN, LIPMEGHA OCONNELL #### [address] [place] [address] Take Out Waiter: Severino Jacobson MD SURGICALon 03-10-2023 SURGICAL [facility] [id number] Assoc. Page 1 of [address] [place] [address] PROC: 03/10/2023 [facility] RECV: 03/13/[address] RPTD: 03/21/2023 [place] [address] LOC: [facility] ACCT: SEX: F [id number] AGE: 32 Y : 1990 PATHOLOGY REPORT ATTN: BERNIE PULIDO PA-C REQ: BERNIE PULIDO PA-C Clinical Information: ALOPECIA FINAL DIAGNOSIS: Skin, right scalp, biopsy: No evidence of an active inflammatory alopecia. Increased follicular michael and catagen/telogen follicles. Please see microscopic description. Specimen: SKIN BIOPSY, SCALP RIGHT Gross Examination: The container is labeled stevan Herrera, right. Received in formalin is an unoriented [...] on sections examined. Clinical correlation is recommended. [id number] AILEEN DE LA PAZ M.D., F.C.A.P [facility]/ [facility] Printed on: 03/21/[address] [place] [id number] Original print date: 03/21/2023 Normal [facility] US PREG ANATOMY SINGLEon US PREG ANATOMY [...] by: VINICIUS GARCIA Date: 2021-08-06 21:37 Normal [facility] CULTURE URINEon 04-25-2021 CULTURE URINE Isolate 1 [...] F Trimethoprim/Sulfame thoxazole <=20 S F Normal [facility] Comment on above: Performed By: #### U RCX ####[facility] [address] [address]Dr. Purvi Smith HEP B SURFACE ANTIGEN SCREEN on 04-24-2021 HBsAg Screen Negative Normal Negative [facility] Comment on above: Performed By: #### H BSANS #### [facility] [address] [place] [address] Dr. Purvi Smith HIV 1 AND 2 WITH REFLEXon HIV Screen 4th Generation wRfx Non-Reactive Normal Non Reactive [facility] Comment on above: Performed By: #### H IV12 ####[facility] [address] [place], [place] [address]Dr. Purvi Smith RPR QUANTon 04-24-2021 Rapid Plasma Reagin, Quant Non-Reactive Normal NonRea<1:1 [facility] Comment on above: Performed By: #### R PRQ #### [facility] [address] [place] [address] Dr. Purvi Smith RUBELLA AB IGGon 04-24-2021 Rubella Antibodies, IgG 1.35 index Normal Immune >0.99 [facility] Comment on above: Result Comment: Non- immune <0.90 Equivocal 0.90 - 0.99 Immune >0.99 Performed By: #### R UBIGG #### [facility] [address] [place] [address] Dr. Purvi Smith CBC AUTO DIFFon 04-23-2021 BASO # 0.0 103/ul Normal 0.0-0.1 [facility] Comment on above: Performed By: #### C BC #### [facility] [address] [place] [address] Dr. Purvi Smith Basophils/100 WBC (Bld) 0.3 % Normal 0.2-2.0 [facility] Comment on above: Performed By: #### C BC #### [facility] [address] [place] [address] Dr. Purvi Smith EO # 0.2 103/ul Normal 0.0-0.7 [facility] Comment on above: Performed By: #### C BC #### [facility] [address] [place] [address] Dr. Purvi Smith Eosinophils/100 WBC (Bld) 2.1 % Normal 0.9-7.0 [facility] Comment on above: Performed By: #### C BC #### [facility] [address] [place] [address] Dr. Purvi Smith Erythrocyte distribution width (RBC) [Ratio] 12.1 % Normal 11.0-15.0 [facility] Comment on above: Performed By: #### C BC #### [facility] [address] [place] [address] Dr. Purvi Smith Hematocrit (Bld) [Volume fraction] 32.3 % Critically low 36.0-48.0 [facility] Comment on above: Performed By: #### C BC #### [facility] [address] [place] [address] Dr. Purvi Smith Hemoglobin (Bld) [Mass/Vol] 10.6 g/dL Critically low 12.0-16.0 [facility] Comment on above: Performed By: #### C BC #### [facility] [address] [place] [address] Dr. Purvi Smith IG # 0.04 10e3/ul Critically high 0.00-0.03 [facility] Comment on above: Performed By: #### C BC #### [facility] [address] [place] [address] Dr. Purvi Smith IG % 0.3 % Normal 0.0-0.5 [facility] Comment on above: Performed By: #### C BC #### [facility] [address] [place] [address] Dr. Purvi Smith LYMPH # 2.1 103/ul Normal 1.2-3.8 [facility] Comment on above: Performed By: #### C BC #### [facility] [address] [place] [address] Dr. Purvi Smith Lymphocytes/100 WBC (Bld) 17.9 % Critically low 20.5-60.0 [facility] Comment on above: Performed By: #### C BC #### [facility] [address] [place] [address] Dr. Purvi Smith MANUAL DIFF REQ NO Normal [facility] Comment on above: Performed By: #### C BC #### [facility] [address] [place] [address] Dr. Purvi Smith MCH (RBC) [Entitic mass] 30.2 pg Normal 26.7-34.0 [facility] Comment on above: Performed By: #### C BC #### [facility] [address] [place] [address] Dr. Purvi Smith MCHC (RBC) [Mass/Vol] 32.8 g/dL Normal 29.9-35.2 [facility] Comment on above: Performed By: #### C BC #### [facility] [address] [place] [address] Dr. Purvi Smith MCV (RBC) [Entitic vol] 92.0 fL Normal 81.0-99.0 [facility] Comment on above: Performed By: #### C BC #### [facility] [address] [place] [address] Dr. Purvi Smith MONO # 0.8 103/ul Normal 0.3-0.8 [facility] Comment on above: Performed By: #### C BC #### [facility] [address] [place] [address] Dr. Purvi Smith Monocytes/100 WBC (Bld) 6.6 % Normal 1.7-12.0 [facility] Comment on above: Performed By: #### C BC #### [facility] [address] [address] [address] Purvi Smith NEUT # 8.5 103/ul Critically high 1.4-6.5 [facility] Comment on above: Performed By: #### C BC #### [facility] [address] [address] [address] Purvi Smith Neutrophils/100 WBC (Bld) 72.8 % Normal 43.0-75.0 [facility] Comment on above: Performed By: #### C BC #### [facility] [address] [address] [address] Purvi Smith Platelet mean volume (Bld) [Entitic vol] 10.0 fL Normal 9.5-13.5 [facility] Comment on above: Performed By: #### C BC #### [facility] [address] [address] [address] Purvi Smith PLT 361 103/ul Normal 150-450 [facility] Comment on above: Performed By: #### C BC #### [facility] [address] [address] [address] Purvi Smith RBC 3.51 106/ul Critically low 4.20-5.40 [facility] Comment on above: Performed By: #### C BC #### [facility] [address] [address] [address] Purvi Smith WBC 11.7 103/ul Critically high 4.0-11.0 [facility] Comment on above: Performed By: #### C BC #### [facility] [address] [address] [address] Purvi Smith GLYCOHEMOGLOBIN A1Con 2020 ADA RECOMMENDATION ADA THERAPEUTIC TARGET 6.0 - 7.0 ACTION SUGGESTED > 7.0 Normal [facility] Comment on above: Performed By: #### A 1C #### [facility] [address] [address] [address] Purvi Smith Glucose [Mass/Vol] 88 mg/dL Normal [facility] Comment on above: Performed By: #### A 1C #### [facility] [address] [address] [address] Purvi Smith HbA1c (Bld) [Mass fraction] 4.7 % Normal <=6.0 [facility] Comment on above: Performed By: #### A 1C #### [facility] [address] [address] [address] Purvi Smith GASTON BOX TEST PT SEND OUTo n 04-23-2021 SENT TO REF LAB 04/23/2021 Normal [facility] Comment on above: Performed By: #### N BOX #### [facility] [address] [place] [address] Dr. Purvi Smith TYPE AND SCREENon 04-23-2021 TYPE AND SCREEN Negative Normal [facility] Comment on above: Performed By: #### T NS #### [facility] [address] [place] [address] Dr. Purvi Smith US PREG TVon 03-30-2021 [...] VINICIUS GARCIA Date: 2021-03-30 10:06 Normal [facility] CBC AUTO DIFFon 03-16-2021 BASO # 0.0 103/ul Normal 0.0-0.1 [facility] Comment on above: Performed By: #### C BC #### [facility] [address] [place] [address] Dr. Purvi Smith Basophils/100 WBC (Bld) 0.3 % Normal 0.2-2.0 [facility] Comment on above: Performed By: #### C BC #### [facility] [address] [place] [address] Dr. Purvi Smith EO # 0.2 103/ul Normal 0.0-0.7 [facility] Comment on above: Performed By: #### C BC #### [facility] [address] [place] [address] Dr. Purvi Smith Eosinophils/100 WBC (Bld) 1.9 % Normal 0.9-7.0 [facility] Comment on above: Performed By: #### C BC #### [facility] [address] [place] [address] Dr. Purvi Smith Erythrocyte distribution width (RBC) [Ratio] 11.9 % Normal 11.0-15.0 [facility] Comment on above: Performed By: #### C BC #### [facility] [address] [place] [address] Dr. Purvi Smith Hematocrit (Bld) [Volume fraction] 31.5 % Critically low 36.0-48.0 [facility] Comment on above: Performed By: #### C BC #### [facility] [address] [place] [address] Dr. Purvi Smith Hemoglobin (Bld) [Mass/Vol] 10.3 g/dL Critically low 12.0-16.0 [facility] Comment on above: Performed By: #### C BC #### [facility] [address] [place] [address] Dr. Purvi Smith IG # 0.04 10e3/ul Critically high 0.00-0.03 [facility] Comment on above: Performed By: #### C BC #### [facility] [address] [place] [address] Dr. Purvi Smith IG % 0.4 % Normal 0.0-0.5 [facility] Comment on above: Performed By: #### C BC #### [facility] [address] [place] [address] Dr. Purvi Smith LYMPH # 2.3 103/ul Normal 1.2-3.8 [facility] Comment on above: Performed By: #### C BC #### [facility] [address] [place] [address] Dr. Purvi Smith Lymphocytes/100 WBC (Bld) 21.5 % Normal 20.5-60.0 [facility] Comment on above: Performed By: #### C BC #### [facility] [address] [place] [address] Dr. Purvi Smith MANUAL DIFF REQ NO Normal [facility] Comment on above: Performed By: #### C BC #### [facility] [address] [place] [address] Dr. Purvi Smith MCH (RBC) [Entitic mass] 30.2 pg Normal 26.7-34.0 [facility] Comment on above: Performed By: #### C BC #### [facility] [address] [place] [address] Dr. Purvi Smith MCHC (RBC) [Mass/Vol] 32.7 g/dL Normal 29.9-35.2 [facility] Comment on above: Performed By: #### C BC #### [facility] [address] [place] [address] Dr. Purvi Smith MCV (RBC) [Entitic vol] 92.4 fL Normal 81.0-99.0 [facility] Comment on above: Performed By: #### C BC #### [facility] [address] [place] [address] Dr. Purvi Smith MONO # 0.9 103/ul Critically high 0.3-0.8 [facility] Comment on above: Performed By: #### C BC #### [facility] [address] [place] [address] Dr. Purvi Smith Monocytes/100 WBC (Bld) 8.4 % Normal 1.7-12.0 [facility] Comment on above: Performed By: #### C BC #### [facility] [address] [place] [address] Dr. Purvi Smith NEUT # 7.3 103/ul Critically high 1.4-6.5 [facility] Comment on above: Performed By: #### C BC #### [facility] [address] [address] [address] Purvi Smith Neutrophils/100 WBC (Bld) 67.5 % Normal 43.0-75.0 [facility] Comment on above: Performed By: #### C BC #### [facility] [address] [address] [address] Purvi Smith Platelet mean volume (Bld) [Entitic vol] 10.4 fL Normal 9.5-13.5 [facility] Comment on above: Performed By: #### C BC #### [facility] [address] [address] [address] Purvi Smith PLT 362 103/ul Normal 150-450 [facility] Comment on above: Performed By: #### C BC #### [facility] [address] [place] [address] Dr. Purvi Smith RBC 3.41 106/ul Critically low 4.20-5.40 [facility] Comment on above: Performed By: #### C BC #### [facility] [address] [place] [address] Dr. Purvi Smith WBC 10.8 103/ul Normal 4.0-11.0 [facility] Comment on above: Performed By: #### C BC #### [facility] [address] [place] [address] Dr. Purvi Smith PROF CHEM 8 (BAS METB)on Anion gap [Moles/Vol] 10.6 mmol/L Normal [facility] Comment on above: Performed By: #### B MP #### [facility] [address] [place] [address] Dr. Purvi Smith Calcium [Mass/Vol] 9.2 mg/dL Normal 8.4-10.2 [facility] Comment on above: Performed By: #### B MP #### [facility] [address] [place] [address] Dr. Purvi Smith Chloride [Moles/Vol] 103 mmol/L Normal 98-107 [facility] Comment on above: Performed By: #### B MP #### [facility] [address] [address] [address] Purvi Smith CO2 [Moles/Vol] 25.5 mmol/L Normal 22.0-30.0 [facility] Comment on above: Performed By: #### B MP #### [facility] [address] [address] [address] Purvi Smith Creatinine [Mass/Vol] 0.61 mg/dL Normal 0.52-1.04 [facility] Comment on above: Performed By: #### B MP #### [facility] [address] [address] [address] Purvi Smith EGFR-AF CAMBODIAN >60 Normal >=60 [facility] Comment on above: Performed By: #### B MP #### [facility] [address] [address] [address] Purvi Smith EGFR-NON AF CAMBODIAN >60 Normal >=60 [facility] Comment on above: Performed By: #### B MP #### [facility] [address] [address] [address] Purvi Smith Glucose [Mass/Vol] 80 mg/dL Normal 74-106 [facility] Comment on above: Performed By: #### B MP #### [facility] [address] [address] [address] Purvi Smith Potassium [Moles/Vol] 3.1 mmol/L Critically low 3.4-5.0 [facility] Comment on above: Performed By: #### B MP #### [facility] [address] [address] [address] Purvi Smith Sodium [Moles/Vol] 136 mmol/L Critically low 137-145 [facility] Comment on above: Performed By: #### B MP #### [facility] [address] [address] [address] Purvi Smith Urea nitrogen [Mass/Vol] 11.0 mg/dL Normal 7.0-17.0 [facility] Comment on above: Performed By: #### B MP #### [facility] [address] [address] [address] Purvi Smith Urea nitrogen/Creatinine [Mass ratio] 18.0 mg/mg Normal [facility] Comment on above: Performed By: #### B #### [facility] [address] [place], [place] [id number] Dr. Purvi Smith Vital Signs Date Time Vital Sign Value Performing Clinician Facility 06-23-2024 10:56-0500 Body mass index (BMI) [Ratio] 28.32 kg/m2 Sophia KYLE Work Phone: [facility] 06-23-2024 10:56-0500 Body weight 74.84 kg Sophia KYLE Work Phone: [facility] 06-23-2024 10:56-0500 Diastolic blood pressure 80 mm[Hg] Sophia Galo PA Work Phone: [facility] 06-23-2024 10:56-0500 Systolic blood pressure 128 mm[Hg] Sophia Galo PA Work Phone: [facility] 06-09-2024 11:35-0500 Body mass index (BMI) [Ratio] 28.69 kg/m2 Shakir Steph DO Work Phone: [facility] 06-09-2024 11:35-0500 Body weight 75.81 kg Shakir Steph DO Work Phone: [facility] 06-09-2024 11:35-0500 Diastolic blood pressure 74 mm[Hg] Shakir Steph DO Work Phone: [facility] 06-09-2024 11:35-0500 Systolic blood pressure 114 mm[Hg] Shakir Steph DO Work Phone: [facility] 05-24-2024 13:21-0500 Body mass index (BMI) [Ratio] 28.63 kg/m2 Sophia Galo PA Work Phone: [facility] 05-24-2024 13:21-0500 Body weight 75.66 kg Sophia Galo PA Work Phone: [facility] 05-24-2024 13:21-0500 Diastolic blood pressure 80 mm[Hg] Sophia KYLE Work Phone: [facility] 05-24-2024 13:21-0500 Systolic blood pressure 116 mm[Hg] Sophia KYLE Work Phone: [facility] 05-10-2024 13:14-0500 Body mass index (BMI) [Ratio] 28.32 kg/m2 Shakir Steph DO Work Phone: [facility] 05-10-2024 13:14-0500 Body weight 74.84 kg Shakir Steph DO Work Phone: [facility] 05-10-2024 13:14-0500 Diastolic blood pressure 66 mm[Hg] Shakir Steph DO Work Phone: [facility] 05-10-2024 13:14-0500 Systolic blood pressure 106 mm[Hg] Shakir Steph DO Work Phone: [facility] 05-05-2024 10:30-0500 Body height 162.6 cm Ifrah Díaz MD Work Phone: [facility] 05-05-2024 10:30-0500 Body mass index (BMI) [Ratio] 28.21 kg/m2 Ifrah Díaz MD Work Phone: [facility] 05-05-2024 10:30-0500 Body weight 74.57 kg Ifrah Díaz MD Work Phone: [facility] 05-05-2024 10:30-0500 Diastolic blood pressure 68 mm[Hg] Ifrah Díaz MD Work Phone: [facility] 05-05-2024 10:30-0500 Heart rate 90 /min Ifrah Díaz MD Work Phone: [facility] 05-05-2024 10:30-0500 Systolic blood pressure 120 mm[Hg] Ifrah Díaz MD Work Phone: [facility] 04-12-2024 13:58-0500 Body mass index (BMI) [Ratio] 28.63 kg/m2 Sophia KYLE Work Phone: [facility] 04-12-2024 13:58-0500 Body weight 75.66 kg Sophia Galo ANABELLA Work Phone: [facility] 04-12-2024 13:58-0500 Diastolic blood pressure 70 mm[Hg] Sophia Gaol ANABELLA Work Phone: [facility] 04-12-2024 13:58-0500 Systolic blood pressure 120 mm[Hg] Sophia Galo ANABELLA Work Phone: [facility] 03-15-2024 10:53-0400 Body mass index (BMI) [Ratio] 27.77 kg/m2 Shakir Steph DO Work Phone: [facility] 03-15-2024 10:53-0400 Body weight 73.39 kg Shakir Steph DO Work Phone: [facility] 03-15-2024 10:53-0400 Diastolic blood pressure 72 mm[Hg] Shakir Steph DO Work Phone: [facility] 03-15-2024 10:53-0400 Systolic blood pressure 110 mm[Hg] Shakir Steph DO Work Phone: [facility] 02-06-2024 15:11-0400 Diastolic blood pressure 63 mm[Hg] Stv [address] [facility] 02-06-2024 15:11-0400 Heart rate 89 /min Stv [address] [facility] 02-06-2024 15:11-0400 Systolic blood pressure 97 mm[Hg] Stv [address] [facility] 02-06-2024 14:22-0400 Respiratory rate 16 /min Stv 11 [facility] 01-29-2024 11:52-0400 Body mass index (BMI) [Ratio] 27.64 kg/m2 Shakir Steph DO Work Phone: [facility] 01-29-2024 11:52-0400 Body weight 73.03 kg Shakir Steph DO Work Phone: [facility] 01-29-2024 11:52-0400 Diastolic blood pressure 74 mm[Hg] Shakir Steph DO Work Phone: [facility] 01-29-2024 11:52-0400 Systolic blood pressure 112 mm[Hg] Shakir Steph DO Work Phone: [facility] Encounters Encounter Date Encounter Type Care Provider Facility Start: 07-11-2024 End: 07-11-2024 Clinisync Result Encounter Shakir Steph DO Work Phone: [facility] Unsolic[facility] Start: 07-11-2024 End: 07-11-2024 Clinisync Result Encounter Shakir Steph DO Work Phone: [facility] Unsolicited Start: 07-09-2024 End: 07-09-2024 Clinisync Result Encounter Sophia KYLE Work Phone: [facility] Unsolicited Start: 07-09-2024 End: 07-09-2024 Clinisync Result Encounter Sophia KYLE Work Phone: [facility] Unsolicited Start: 07-08-2024 End: 07-08-2024 ambulatory SHAKIR STEPH Not Available Start: 07-08-2024 End: 07-08-2024 Bamboo flowsheet Shakir Steph DO Work Phone: [facility] Start: 07-08-2024 End: 07-08-2024 Bamboo flowsheet Shakir Steph DO Work Phone: [facility] Start: 06-23-2024 End: 06-23-2024 Bamboo flowsheet Sophia KYLE Work Phone: [facility] Start: 06-23-2024 End: 06-23-2024 Bamboo flowsheet Sophia KYLE Work Phone: [facility] Start: 06-23-2024 End: 06-23-2024 Clinisync Result Encounter Shakir Steph DO Work Phone: [facility] Unsolicited Start: 06-23-2024 End: 06-23-2024 Office outpatient visit 15 minutes Sophia KYLE Work Phone: [facility] Comment on above: Third trimester preg yenny; 33 weeks gestation of ; Urinary tract infection with hematuria, site unspecified Start: 06-23-2024 End: 06-23-2024 ambulatory SOPHIA GALO Not Available Start: 06-22-2024 End: 06-22-2024 ambulatory [facility] Start: 06-09-2024 End: 06-09-2024 Bamboo flowsheet Shakir Steph DO Work Phone: [facility] Start: 06-09-2024 End: 06-09-2024 Bamboo flowsheet Shakir Steph DO Work Phone: [facility] Start: 06-09-2024 End: 06-09-2024 ambulatory SHAKIR STEPH Not Available Start: 06-09-2024 End: 06-09-2024 Office outpatient visit 15 minutes Shakir Steph DO Work Phone: [facility] Comment on above: 31 weeks gestation o f ; Second trimester ; Right club foot; Premature uterine contractions, antepartum Start: 06-03-2024 End: 06-03-2024 ambulatory [facility] Start: 05-24-2024 End: 05-24-2024 Bamboo flowsheet Sophia KYLE Work Phone: [facility] Start: 05-24-2024 End: 05-24-2024 Bamboo flowsheet Sophia KYLE Work Phone: [facility] Start: 05-24-2024 End: 05-24-2024 Office outpatient visit 15 minutes Sophia KYLE Work Phone: [facility] Comment on above: 29 weeks gestation o f ; Third trimester ; SGA (small for gestational age) Start: 05-24-2024 End: 05-24-2024 ambulatory SOPHIA GALO Not Available Start: 05-13-2024 End: 05-13-2024 ambulatory [facility] Start: 05-10-2024 End: 05-10-2024 Bamboo flowsheet Shakir Steph DO Work Phone: [facility] Start: 05-10-2024 End: 05-11-2024 Bamboo flowsheet Shakir Steph DO Work Phone: [facility] Start: 05-10-2024 End: 05-11-2024 External Result Encounter Shakir Steph DO Work Phone: [facility] External Department Unsolicited Start: 05-10-2024 End: 05-10-2024 Office outpatient visit 15 minutes Shakir Steph DO Work Phone: [facility] Comment on above: 27 weeks gestation o f ; Second trimester ; Urinary tract infection without hematuria, site unspecified Start: 05-10-2024 End: 05-10-2024 ambulatory SHAKIR STEPH Not Available Start: 05-05-2024 End: 05-05-2024 Office outpatient new 45 minutes Ifrah Díaz MD Work Phone: [facility] Comment on above: Club foot of fetus a ffecting antepartum care of mother, other fetus (Primary Dx); Placenta previa in second trimester; Suspected problem with placenta not found; History of delivery, currently ; History of drug overdose; History of placental abruption; Anxiety and depression; 26 weeks gestation of Start: 05-05-2024 End: 05-05-2024 Orders [address] [facility] Comment on above: Club foot of fetus a ffecting antepartum care of mother, other fetus (Primary Dx); Placenta previa in second trimester; Suspected problem with placenta not found; History of delivery, currently ; History of drug overdose Start: 04-12-2024 End: 04-12-2024 Bamboo flowsheet Sophia KYLE Work Phone: [facility] Start: 04-12-2024 End: 04-12-2024 Bamboo flowsheet Sophia KYLE Work Phone: [facility] Start: 04-12-2024 End: 04-12-2024 Office outpatient visit 15 minutes Sophia Galo PA Work Phone: [facility] Comment on above: Bacterial vaginosis (Primary Dx); 23 weeks gestation of ; Second trimester ; Diabetes mellitus screening Start: 04-12-2024 End: 04-12-2024 ambulatory SOPHIA GALO Not Available Start: 04-09-2024 End: 04-09-2024 ambulatory [facility] Start: 04-06-2024 End: 04-06-2024 Clinisync Result Encounter Shakir Steph DO Work Phone: [facility] External Department Unsolicited Start: 04-06-2024 End: 04-06-2024 Clinisync Result Encounter Shakir Steph DO Work Phone: [facility] External Department Unsolicited Start: 03-15-2024 End: 03-15-2024 Bamboo flowsheet Shakir Steph DO Work Phone: [facility] Start: 03-15-2024 End: 03-15-2024 Bamboo flowsheet Shakir Steph DO Work Phone: [facility] Start: 03-15-2024 End: 03-15-2024 Office outpatient visit 15 minutes Shakir Steph DO Work Phone: [facility] Comment on above: Second trimester pre gnancy; 17 weeks gestation of ; UTI symptoms Start: 03-15-2024 End: 03-15-2024 ambulatory SHAKIR STEPH Not Available Start: 02-26-2024 End: 02-26-2024 Emergency department patient visit VINICIUS [facility] Start: 02-06-2024 End: 02-06-2024 ambulatory JOSSUE GORMANHAYDE [facility] Start: 02-06-2024 End: 02-06-2024 Subsequent hospital visit by physician Clarita Burt [facility] Chair [facility] Comment on above: Iron deficiency anem ia, unspecified iron deficiency anemia type (Primary Dx) Start: 01-30-2024 End: 01-30-2024 ambulatory JOSSUE Crockett COREYHAYDE [facility] Start: 01-29-2024 End: 01-29-2024 Bamboo [...] End: 12-20-2023 Emergency department patient visit VINICIUS [facility] Start: 12-05-2023 End: 12-05-2023 ambulatory BENSON DIAL [facility] Start: 11-24-2023 End: 11-24-2023 Emergency department patient visit VINICIUS [facility] Start: 11-21-2023 End: 11-21-2023 Telephone encounter Amber Smith [facility] Comment on above: Appointment Due Start: 11-06-2023 End: 11-06-2023 ambulatory BERNIE PULIDO [facility] Start: 09-08-2023 End: 09-08-2023 Telephone encounter Amber Smith [facility] Comment on above: appointment due Start: 09-02-2023 End: 09-02-2023 ambulatory BERNIE PULIDO [facility] Start: 07-17-2023 End: 07-17-2023 Emergency department patient visit VINICIUS [facility] Start: 04-11-2023 End: 04-11-2023 ambulatory BERNIE PULIDO [facility] Start: 03-12-2023 ambulatory BENSON DIAL [facility] Start: 09-10-2021 End: 09-10-2021 Subsequent hospital visit by physician Clarita Infusion Bed 3 [facility] Med Surg Start: 08-21-2021 End: 08-21-2021 Subsequent hospital visit by physician Benson Dial MD [facility] Start: 08-06-2021 End: 08-07-[address] SHAKIR CHOI Facility:[facility] Start: 04-23-2021 End: 04-24-[address] SHAKIR CHOI Facility:[facility] Start: 04-21-2021 End: 04-22-[address] SHAKIR CHOI Facility:[facility] Start: 03-30-2021 End: 03-31-[address] SHAKIR CHOI Facility:[facility] Start: 03-16-2021 End: 03-16-2021 ambulatory JAZMIN GARBER Facility:[facility] Procedures Date Procedure Procedure Detail Performing Clinician Start: 07-11-2024 [facility] UA (CLEAN/CATCH) ARTIFICIAL PEARL [employer]KER/MICRO IF IND. Shakir Choi DO Work Phone: Start: 07-09-2024 US OB BPP W NON-STRESS Sophia KYLE Work Phone: Start: 06-23-2024 US OB BPP W NON-STRESS Shakir Naqvio DO Work Phone: Start: 06-23-2024 Urnls dip [...] Work Phone: Start: 04-06-2024 [facility] UA (CLEAN/CATCH) ARTIFICIAL PEARL MAKER/MICRO IF IND. Shakir Steph DO Work Phone: [...] Phone: Start: 01-17-2024 Antibody screen Shakir F gopalio DO Work Phone: Start: 01-17-2024 ALL CBC WITH AUTO DIFF Shakir Steph DO Work Phone: Start: 01-17-2024 ALL TYPE AND SCREEN Cor ey Steph DO Work Phone: Start: 01-17-2024 MLR HEMOGLOBIN A1C Core y Steph DO Work Phone: Start: 04-25-2022 Adult depression scr eening assessment Amber Smith [employer] Start: 08-21-2021 Microscopic observat ion [Identifier] in Cervix by Cyto stain Stv 3 Plan of Treatment Date Care Activity Detail Author Start: 05-05-2025 Adult BMI Screening Adult BMI Screen ing [facility] Start: 05-05-2025 Tobacco Screening Tobacco Screening [facility] Start: 05-05-2025 End: 05-05-2025 US MFM with or without consult US MFM with or without consult Imaging Routine 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, other fetus Placenta previa in second trimester Suspected problem with placenta not found History of delivery, currently History of drug overdose Expected: 05/05/2025 (Approximate), Expires: 05/05/2025 Konoz Work Phone: Comment on above: Expected: 05/05/2025 (Approximate), Expires: 05/05/2025 Start: 08-21-2024 Screening for malign ant neoplasm of cervix [facility] Start: 07-17-2024 Adult BMI Screening Adult BMI Screen ing [facility] Start: 07-17-2024 Tobacco Screening Tobacco Screening [facility] Start: 07-15-2024 End: 07-15-2024 Patient encounter procedure 07/15/2024 11:20 AM EST Routine [facility] [address] [place] [id number] Shakir Choi, DO [address] [place] [address] [facility] Start: 07-08-2024 End: 07-08-2024 Patient encounter procedure 07/08/2024 10:40 AM EST Routine [facility] [address] [place] [id number] Shakir Choi, DO [address] [place] [address] [facility] Start: 06-23-2024 End: 06-23-2024 Patient encounter procedure [facility] Comment on above: Arrived Start: 06-12-2024 Respiratory Syncytia l Virus (RSV) or age 60 yrs+ (1 - Risk 1-dose series) Respiratory Syncytial Virus (RSV) or age 60 yrs+ (1 - Risk 1-dose series) [facility] Start: 06-09-2024 End: 06-09-2024 Patient encounter procedure 06/09/2024 11:20 AM EST Routine [facility] [address] [place] [id number] Shakir Choi, DO [address] [facility] [address] [place] [address] [facility] Start: 06-03-2024 End: 06-03-2024 Patient encounter procedure 06/03/2024 2:15 PM EST Appointment [facility] [address] [place] [id number] [facility] Start: 05-24-2024 End: 05-24-2025 US biophysical profile w non stress test US biophysical profile w non stress test Imaging Routine 29 weeks gestation of Third trimester SGA (small for gestational age) Expected: 05/24/2024 (Approximate), Expires: 05/24/2025 [facility] Comment on above: Expected: 05/24/2024 (Approximate), Expires: 05/24/2025 Start: 05-24-2024 End: 05-24-2025 US for US OB SCAN FOR GROWTH Imaging Routine 29 weeks gestation of Third trimester SGA (small for gestational age) Expected: 05/24/2024 (Approximate), Expires: 05/24/2025 [facility] Work Phone: Comment on above: Expected: 05/24/2024 (Approximate), Expires: 05/24/2025 Start: 05-24-2024 End: 05-24-2024 Patient encounter procedure [facility] Comment on above: Arrived Start: 05-10-2024 End: 05-10-2024 Patient encounter procedure [facility] Comment on above: Arrived Start: 04-13-2024 End: 04-13-2024 Patient encounter procedure 04/13/2024 11:20 AM EST Routine [facility] [address] [place] [address] Sophia Galo PA [address] [place] [address] [facility] Start: 04-12-2024 End: 04-12-2025 [...] with patient 04/01/2024 4:00 PM EST Telemedicine [place] [id number] Jossue Swain MD [address], [place] [id number] 3 month f/u [facility] Comment on above: 3 month f/u Start: 03-15-2024 End: 03-15-2024 Patient encounter procedure 03/15/2024 10:00 AM EDT Routine [facility] [address] [place] [address] Shakir Choi DO [address] [place] [address] Arrived [facility] Comment on above: Arrived Start: 02-26-2024 End: 02-26-2024 Patient encounter procedure 02/26/2024 9:40 AM EDT Routine [facility] [address] [place] [id number] Sophia Galo PA [address] [place], [place] [id number] [facility] Start: 01-29-2024 End: 01-29-2024 Patient encounter procedure 01/29/2024 10:40 AM EDT Routine [facility] [address] [place] [address] Shakir Choi DO [address] [place] [address] [facility] Start: 01-25-2024 COVID-19 Vaccine ( season) COVID-19 Vaccine ( season) [facility] Start: 01-25-2024 COVID-19 Vaccine ( season) COVID-19 Vaccine ( season) [facility] Start: 01-25-2024 Influenza vaccination [facility] Start: 12-25-2023 Influenza vaccination Flu vaccine (# 1) [facility] Start: 04-25-2023 Depression Screening Depression Scre ening [facility] Start: 01-24-2023 COVID-19 Vaccine ( season) COVID-19 Vaccine ( season) [facility] Start: 11-11-2022 DTaP,Tdap and Td Vaccines (7 - Td or Tdap) DTaP,Tdap and Td Vaccines (7 - Td or Tdap) [facility] Start: 11-11-2022 DTaP/Tdap/Td vaccine (7 - Td or Tdap) DTaP/Tdap/Td vaccine (7 - Td or Tdap) [facility] Start: 2022 Screening for malign ant neoplasm of cervix [facility] Start: 01-24-2022 Influenza vaccination Flu vacc ine (Season Ended) [facility] Start: 10-01-2021 End: 10-01-2021 Patient encounter procedure 10/01/2021 Routine Obstetrics and Gynecology Moises Kristel N, DO [address] [place] [address] [facility] Planning [employer] [place] Start: 09-04-2021 End: 09-04-2021 Patient encounter procedure 09/04/2021 Routine Obstetrics and Gynecology Anisha Lucas N, DO [address] [place] [address] [facility] Start: 01-24-2021 Influenza vaccination Flu vaccine (# 1) [facility] Start: 08-03-2019 Varicella vaccine (2 of 2 - 13+ 2-dose series) Varicella vaccine (2 of 2 - 13+ 2-dose series) [facility] Start: 07-28-2019 Hepatitis B vaccine (3 of 3 - 19+ 3-dose series) Hepatitis B vaccine (3 of 3 - 19+ 3-dose series) [facility] Start: 2013 Screening for malign ant neoplasm of cervix Pap smear [facility] Start: 09-21-2011 DTaP/Tdap/Td vaccine (1 - Tdap) DTaP/Tdap/Td vaccine (1 - Tdap) [facility] Start: 2010 Adult BMI Follow Up Plan Adult BMI Follow Up Plan [facility] Start: 2010 Hepatitis C screening Hepatitis C [facility] Start: 2004 Depression Screen Depression Screen [facility] Start: 1997 COVID-19 Vaccine (1) COVID-19 Vaccin e (1) [facility] Start: 1993 Varicella vaccine (1 of 2 - 2-dose childhood series) Varicella vaccine (1 of 2 - 2-dose childhood series) [facility] Start: 1992 Hepatitis C screening Hepatitis C [facility] Bacteria identified in Urine by Culture Urine culture Microbiology Routine UTI symptoms Ordered: 03/15/2024 [facility] Work Phone: Comment on above: Ordered: 03/15/2024 Bacteria identified in Urine by Culture Urine culture Microbiology Routine 27 weeks gestation of Urinary tract infection without hematuria, site unspecified Ordered: 05/10/2024 [facility] Work Phone: Comment on above: Ordered: 05/10/2024 Bacteria identified in Urine by Culture Urine culture Microbiology Routine Urinary tract infection without hematuria, site unspecified Ordered: 01/29/2024 [facility] Work Phone: Comment on above: Ordered: 01/29/2024 Hemoglobin A1c/Hemoglobin.total in Blood Hemoglobin A1c Lab Routine 29 weeks gestation of Third trimester SGA (small for gestational age) Ordered: 05/24/[address] [facility] Comment on above: Ordered: 05/24/2024 Immunizations Immunization Date Immunization Notes Care Provider Fa [facility] 08-06-2019 Influenza, injectabl e, Madin Hiram Canine Kidney, preservative free, [facility] influenza virus vaccine, unspecified formulation [facility] 07-06-2019 tuberculin skin test ; purified protein derivative solution, intradermal [facility] 07-06-2019 varicella virus vaccine [facility] 03-01-2019 hepatitis B vaccine, adult dosage [facility] 01-27-2019 hepatitis B vaccine, adult dosage [facility] 11-11-2012 tetanus toxoid, redu lucrecia diphtheria toxoid, and acellular pertussis vaccine, adsorbed [facility] 06-11-2012 influenza, seasonal, [facility] measles, mumps and rubella virus vaccine [facility] 01-01-2005 poliovirus vaccine, inactivated [facility] 01-01-2005 TD(adult) unspecifie d formulation [facility] 05-02-1995 diphtheria, tetanus toxoids and acellular pertussis vaccine, unspecified formulation [facility] 03-22-1994 diphtheria, tetanus toxoids and acellular pertussis vaccine, unspecified formulation [facility] 03-22-1994 haemophilus influenz ae type b vaccine, conjugate unspecified formulation [facility] 03-22-1994 measles, mumps and rubella virus [facility] 03-22-1994 poliovirus vaccine, unspecified formulation [facility] 07-27-1993 diphtheria, tetanus toxoids and acellular pertussis vaccine, unspecified formulation [facility] 07-27-1993 haemophilus influenz ae type b vaccine, conjugate unspecified formulation [facility] 07-27-1993 hepatitis B vaccine, pediatric or pediatric/adolescent dosage [facility] 07-27-1993 poliovirus vaccine, unspecified formulation [facility] 1992 diphtheria, tetanus toxoids and acellular pertussis vaccine, unspecified formulation [facility] 1992 haemophilus influenz ae type b vaccine, conjugate unspecified formulation [facility] 1992 hepatitis B vaccine, pediatric or pediatric/adolescent dosage [facility] 1992 poliovirus vaccine, unspecified formulation [facility] 1992 hepatitis B vaccine, pediatric or pediatric/adolescent dosage [facility] Payers Date Payer Category Payer Medicaid (Managed Care) [facility] MEDICAID [id number] 2003 Medicaid [id number] 2003 Medicaid [employer] [id number] 1992 Unknown [id number] 2.16840.1.206825.3.579.2. 593 1992 Unknown [id number] 2.16.840.1.103234.3.579.2. 593 1992 Unknown [id number] 2.16840.1.329346.3.579.2. 593 1992 Unknown [id number] 2.16.840.1.772481.3.579.2. 593 1992 Unknown [id number] 2.16840.1.847892.3.579.2. 593 1992 Unknown [id number] 2.16.840.1.816136.3.579.2. 93 1992 Unknown [id number] 2.16.840.1.166290.3.579.2. 177 1992 Unknown [id number] 2.16.840.1.377975.3.579.2. 175 1992 Unknown [id number] 2.16.840.1.225157.3.579.2. 175 1992 Unknown [id number] 2.16.840.1.873260.3.579.2. 175 1992 Unknown [id number] 2.16.840.1.877506.3.579.2. 175 1992 Unknown [id number] 2.16840.1.932171.3.579.2. 175 1992 Unknown [id number] 2.840.1.225421.3.579.2. 1285 1992 Unknown [id number] 2.840.1.076340.3.579.2. 1285 1992 Unknown [id number] 2.840.1.163839.3.579.2. 1285 1992 Unknown [id number] 2.840.1.246285.3.579.2. 1285 1992 Unknown [id number] 20.1.529380.3.579.2. 1285 1992 Unknown [id number] 2.840.1.230114.3.579.2. 1285 1992 Unknown [id number] 2.0.1.597372.3.579.2. 1285 1992 Unknown [id number] 2840.1.061963.3.579.2. 1285 1992 Unknown [id number] 20.1.278321.3.579.2. 1285 1992 Unknown [id number] 2.840.1.670480.3.579.2. 128 1992 Unknown [id number] 2.840.1.215643.3.579.2. 1258 1992 Unknown [id number] 2.840.1.964727.3.579.2. 1258 1992 Unknown [id number] 2.840.1.825878.3.579.2. 1258 1992 Unknown [id number] 2.840.1.921931.3.579.2. 1259 1992 Unknown [id number] 2.16.840.1.564170.3.579.2. 9 1992 Unknown [id number] 2.16.840.1.326018.3.579.2. 9 1992 Unknown [id number] 2.16.840.1.707140.3.579.2. 1258 1992 Unknown [id number] 2.16.840.1.483466.3.579.2. 9 1992 Unknown [id number] 2.16.840.1.689941.3.579.2. 1259 1959 Self-pay [id number] 1959 Unknown [id number] Unknown [id number] 2.16.840.1.663834.3.579.2. 593 Social History Date Type Detail Facility Start: 06-23-2012 End: 01-01-2024 Tobacco smoking status [facility] Never smoked tobacco [employer] Phone: Start: 06-23-2012 End: 01-01-2024 Tobacco use and exposure Smokeless tobacco non-user [employer] Phone: Start: 08-21-2021 End: 06-09-2024 Alcohol intake Lifetime non-drinker (finding) [employer] Phone: Start: 08-21-2021 History SDOH Alcohol Frequency 1 [employer] Phone: Start: 02-16-2021 [employer] Phone: Start: 1992 [facility] Start: 09-01-2021 End: 09-04-2021 Tobacco smoking status IAIS Ex-smoker [employer] Start: 09-04-2021 End: 12-05-2023 Alcohol intake Ex-drinker (finding) [employer] Phone: Start: 07-06-2020 End: 01-01-2024 History of Social function [facility] Start: 07-06-2020 End: 01-01-2024 Tobacco use panel [facility] [employer] Start: 1992 Sex assigned at Female [facility] History of tobacco use Current smoker [facility] Has the [employer], [employer], [employer], or water company threatened to shut off services in your home in past 12Mo No [facility] How hard is it for y ou to pay for the very basics like food, housing, medical care, and heating Not hard at all [facility] The thought of krishan jeronimo myself has occurred to me Never [facility] Start: 05-01-2018 Alcohol Comment once a month / couple glasses of wine [facility] Start: 12-29-2014 Sex Female (finding) [facility] Start: 07-17-2023 Alcoholic beverage intake Current drinker of alcohol (finding) [facility] Goals Date Patient Goal Desired Activity /State [...] Past Medical History: Diagnosis Date Anxiety Asthma (CMS/[facility]) Chlamydia Depression (CMS/[facility]) History of miscarriage Iron deficiency anemia SAB (spontaneous ) UTI (urinary tract infection) HISTORY PAST MEDICAL HISTORY SOCIAL HISTORY Past Medical History: Diagnosis Date Anxiety Asthma ([facility]) Chlamydia Depression ([facility]) History of miscarriage Iron deficiency anemia SAB [...] having contractions on 06/20/2024 and went to [facility] for evaluation pt states she was given IV fluids and the contractions went away. On 06/22/2024 pt states she went to [facility] due to contractions again @ [...] of: ANABELLA Gleason documented in this encounter [facility] 06-09-2024 History of Presen t illness [...] Date Anxiety Asthma ([facility]) Chlamydia Depression ([facility]) History of miscarriage Iron deficiency anemia SAB (spontaneous ) UTI (urinary tract infection) HISTORY PAST MEDICAL HISTORY SOCIAL HISTORY Past Medical History: Diagnosis Date Anxiety Asthma (CMS/HCC) Chlamydia Depression ([facility]) History of miscarriage Iron deficiency anemia SAB [...] nursing note reviewed. Exam conducted with a field logistics coordinator present. Vitals: Estimated body mass index is [...] Shakir Choi DO documented in this encounter [facility] 05-24-2024 History of Presen t illness [...] Date Anxiety Asthma ([facility]) Chlamydia Depression ([facility]) History of miscarriage Iron deficiency anemia SAB (spontaneous ) UTI (urinary tract infection) HISTORY PAST MEDICAL HISTORY SOCIAL HISTORY Past Medical History: Diagnosis Date Anxiety Asthma ([facility]) Chlamydia Depression ([facility]) History of miscarriage Iron deficiency anemia SAB [...] was seen and admitted to hospital in [place] when she was on jeane stating they [...] of: ANABELLA Gleason documented in this encounter [facility] 05-10-2024 History of Presen t illness [...] nursing note reviewed. Exam conducted with a field logistics coordinator present. Vitals: Estimated body mass index is [...] a day. Is doing growth ultrasounds at [facility] on 06/03/ will start here after, NST/BPP at 32 weeks. Rx for macrobid faxed to pharmacy. Orders Placed This Encounter Procedures Urine culture POCT urinalysis dipstick manually resulted Follow Up: Patient is to return to office in 2 week for routine OB appointment. Documented by Ct Nunez LPN on behalf of: Sophia Galo PA-C documented in this encounter [facility] 05-05-2024 History of Presen t illness [...] female Have you been seen here at [facility] in a previous ? Yes Recent ER visits or hospitalizations? Yes , spotting Bring blood sugar log or meter with you today? (Please bring them with you for every visit at [facility]) n/a Flu vaccine (Mar-July)? No Any [...] taking: Reported on 05/05/2024 12/20/23 [facility] Social History Socioeconomic History Marital status: [...] also discussed pediatric orthopedic follow-up postnatally. Ct daycare teacher met with the patient after the visit. [...] Follow-up with Pediatric Orthopedic surgery postnatally. Ct daycare teacher met with the patient today. Plan reviewed with patient. She vocalized understanding all questions answered. The patient is to continue with routine care in your office [facility], the CDC, and other organizations representing maternal and public health professionals recommend that , , and lactating people and those considering receive the COVID-19 vaccination. Vaccination is the best method to reduce maternal and complications of SARS-CoV-2 infection. This document was created with [employer] technology. Though I make every effort to review the dictation as it is transcribed, on occasion the spoken word can be misinterpreted by the technology leading to inappropriate words, phrases, or sentences. This note is addressed to the requesting provider as a consultation for clinical guidance. Specific medical abbreviations are occasionally used and those are generally approved by the [place]?Board of?Obstetrics and?Gynecology?as well as?Kenna castillo abbreviations. The above plan of care was based solely on the diagnoses for which a consultation was requested. ?More frequent testing may be indicated based on her other medical/obstetrical conditions. The management of other or medical conditions is beyond the scope of requested consultation and will continue to be followed by the primary accountant manager or primary care provider. Thank you [...] procedures Referring and communicating with other health out of school hours care worker (not separately reported) Documenting clinical information in the electronic or other health record Independently interpreting results (not separately reported) and communicating results to the patient/family/caregiver Care coordination (not separately reported) documented in this encounter [facility] 04-12-2024 History of Presen t illness Narrative [...] Date Anxiety Asthma ([facility]) Chlamydia Depression ([facility]) History of miscarriage Iron deficiency anemia SAB (spontaneous ) UTI (urinary tract infection) HISTORY PAST MEDICAL HISTORY SOCIAL HISTORY Past Medical History: Diagnosis Date Anxiety Asthma ([facility]) Chlamydia Depression ([facility]) History of miscarriage Iron deficiency anemia SAB [...] of: ANABELLA Gleason documented in this encounter [facility] 03-15-2024 History of Presen t illness [...] Diagnosis Date Anxiety Asthma (CMS/HCC) Chlamydia Depression (CMS/[facility]) History of miscarriage Iron deficiency anemia SAB (spontaneous ) UTI (urinary tract infection) HISTORY PAST MEDICAL HISTORY SOCIAL HISTORY Past Medical History: Diagnosis Date Anxiety Asthma (CMS/HCC) Chlamydia Depression ([facility]) History of miscarriage Iron deficiency anemia SAB [...] nursing note reviewed. Exam conducted with a field logistics coordinator present. Vitals: Estimated body mass index is [...] Shakir Choi DO documented in this encounter [facility] 02-06-2024 History of Presen t illness Narrative Pt here for Feraheme infusion. Infusion complete without incident. Pt d/c'd in stable condition. Returns 04-01-24 for MD f/u. documented in this encounter [facility] 01-29-2024 History of Presen t illness [...] nursing note reviewed. Exam conducted with a field logistics coordinator present. Vitals: Estimated body mass index is [...] or undercooked meat, and stay away from [facility]. Patient has been consulted regarding [...] Shakir Choi DO documented in this encounter [facility] 11-21-2023 Miscellaneous Notes Care Coordination Outreach performed to coordinate overdue appointments, testing, and/or follow-up care: Yes Audit/Outreach Date: November 21, 2023 Reason: Well Person Method: Telephone and MyChart Outreach Attempt: First Outcome: Left Message and letter sent Next PCP Appointment: N/A Tests/Referrals Pended: N/A Resources/Education Provided: Additional Comments: Unable to reach patient by telephone to schedule appointment. Letter sent. documented in this encounter [facility] 11-21-2023 Telephone encounter Note Care Coordination Outreach performed to coordinate overdue appointments, testing, and/or follow-up care: Yes Audit/Outreach Date: November 21, 2023 Reason: Well Person Method: Telephone and MyChart Outreach Attempt: First Outcome: Left Message and letter sent Next PCP Appointment: N/A Tests/Referrals Pended: N/A Resources/Education Provided: Additional Comments: Unable to reach patient by telephone to schedule appointment. Letter sent. [facility] 09-08-2023 Miscellaneous Notes Care Coordination Outreach performed to coordinate overdue appointments, testing, and/or follow-up care: Yes Audit/Outreach Date: September 08, 2023 Reason: Well Person Method: Telephone and MyChart Outreach Attempt: First Outcome: Left Message Next PCP Appointment: N/A Tests/Referrals Pended: N/A Resources/Education Provided: Additional Comments: documented in this encounter [facility] 09-08-2023 Telephone encounter Note Care Coordination Outreach performed to coordinate overdue appointments, testing, and/or follow-up care: Yes Audit/Outreach Date: September 08, 2023 Reason: Well Person Method: Telephone and MyChart Outreach Attempt: First Outcome: Left Message Next PCP Appointment: N/A Tests/Referrals Pended: N/A Resources/Education Provided: Additional Comments: [facility] Evaluation note Diagnosis Second trimester state, [...] of drug overdose [facility] Diagnosis Club foot of fetus [...] state, incidental SGA (small for gestational age) [id number] without mention of malnutrition, unspecified (weight) [facility] Diagnosis 31 weeks gestation of Second trimester state, incidental Right club foot Premature uterine contractions, antepartum Unspecified abnormality of labor, antepartum [facility] Diagnosis Iron deficiency anemia, unspecified iron deficiency anemia type- Primary [facility] Diagnosis Third trimester state, incidental 33 weeks gestation of Urinary tract infection with hematuria, site unspecified documented in this encounter [facility] HealthcareInstructionsNot on filedocumented in this encounterProMedica Health SystemInstructionsNot on filedocumented in this encounterProMedimd Health SystemInstructionsNot on filedocumented in this encounterProMedimd Health SystemReason for visit Narrative* Treatment Plan and Therapy Plan (Routine) - Authorized Specialty Diagnoses / Procedures Referred By Contac t Referred To Contact Diagnoses Iron deficiency anemia, unspecified iron deficiency anemia type Procedures VA FERUMOXYTOL, NON-ESRD Trupti-Jossue Cantrell MD [address] [place] [address] [facility] [place] [address] [place] [address] Referral ID Status Reason Start Date Expiration Date V isits Requested Visits Authorized [id number] Authorized 01/14/2024 04/15/2024 10 10 [facility] Summary Purpose Family History No Family History Records FoundNo Family History Records FoundNo Family History Records FoundNo Family History Records FoundNo Family History Records FoundNo Family History Records FoundNo Family History Records Found Advance Directives Documents on File Type Date 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 ACP-Advance Directive ACP-Power of Performance Tester Date Activated Date Inactivated Comments 04/09/2024 7:33 [...] DATE CREATED AUTHOR 08/08/2021 [facility] DATE CREATED AUTHOR AUTHOR'S ORGANIZ ATION 03/23/2023 [facility] DATE CREATED AUTHOR AUTHOR'S ORGANIZ ATION 12/11/2023 [facility] DATE CREATED AUTHOR AUTHOR'S ORGANIZ ATION 02/08/2024 [facility] DATE CREATED AUTHOR AUTHOR'S ORGANIZ ATION 06/08/2024 [facility] DATE CREATED AUTHOR AUTHOR'S ORGANIZ ATION 06/24/2024 [facility] DATE CREATED AUTHOR AUTHOR'S ORGANIZ ATION 07/10/2024 [facility] EPIC Care Teams (unrecognized sec tion and content) Assistant Family Teacher Relationship Specialty Start Date End Date Benson Dial MD PCP - General 10/08/12 Assistant Family Teacher Relationship Specialty Start Date End Date Benson Dial MD PCP - General 10/08/12 Assistant Family Teacher Relationship Specialty Start Date End Date Vinicius Quintana MD [address] [place] [address] PCP - General Family Medicine 03/03/23 Assistant Family Teacher Relationship Specialty Start Date End Date Vinicius Quintana MD [address] [place] [address] PCP - General Family Medicine 03/03/23 Assistant Family Teacher Relationship Specialty Start Date End Date Vinicius Quintana MD [address] [place] [address] PCP - General Family Medicine 03/03/23 Assistant Family Teacher Relationship Specialty Start Date End Date Vinicius Quintana MD [address] [place] [address] PCP - General Family Medicine 03/03/23 Assistant Family Teacher Relationship Specialty Start Date End Date Vinicius Quintana MD [address] [place] [address] PCP - General Family Medicine 03/03/23 Assistant Family Teacher Relationship Specialty Start Date End Date Vinicius Quintana MD [address] [place] [address] PCP - General Family Medicine 03/01/17 Assistant Family Teacher Relationship Specialty Start Date End Date Vinicisu Quintana MD [address] [place] [address] PCP - General Family Medicine 03/01/17 Assistant Family Teacher Relationship Specialty Start Date End Date Vinicius Quintana MD [address] [place] [address] PCP - General Family Medicine 03/03/23 Assistant Family Teacher Relationship Specialty Start Date End Date Vinicius Quintana MD [address] [place] [address] PCP - General Family Medicine 03/03/23 Assistant Family Teacher Relationship Specialty Start Date End Date Vinicius Quintana MD [address] [place] [address] PCP - General Family Medicine 03/03/23 Assistant Family Teacher Relationship Specialty Start Date End Date Vinicius Quintana MD [address] [place] [address] PCP - General Family Medicine 03/03/23 Assistant Family Teacher Relationship Specialty Start Date End Date Vinicius Quintana MD [address] [place] [address] PCP - General Family Medicine 03/03/23 Assistant Family Teacher Relationship Specialty Start Date End Date Vinicius Quintana MD [address] [place] [address] PCP - General Family Medicine 03/03/23 Assistant Family Teacher Relationship Specialty Start Date End Date Benson Dial MD PCP - General 10/08/12 Assistant Family Teacher Relationship Specialty Start Date End Date Vinicius Quintana MD [address] [place] [address] PCP - [facility] 03/01/17 Assistant Family Teacher Relationship Specialty Start Date End Date Vinicius Quintana MD [address] [place] [address] PCP - [facility] 03/03/23 Assistant Family Teacher Relationship Specialty Start Date End Date Vinicius Quintana MD [address] [place], [place] [id number] PCP - [facility] 03/03/23 Reason for Visit (unrecogniz ed section and content) Reason Comments Routine Visit Reason Comments H/X PTD x2 H/X Placental Abruption Placenta Previa Club Foot Reason Onset Date Comments appointment due 09/08/2023 Reason Onset Date Comments Appointment Due 11/21/2023 FOR RECORDS PERTAINING TO PATIENTS WHO ARE [...] BE BASED ON THE PRIMARY CLINICAL RECORDS. [facility] [employer] [facility]. provides no warranty or guarantee of the accuracy or completeness of information in this document.
[2024-07-13 12:46] VITALS: BP 142/88; PULSE 100
== END 2024-07-13 13:15 | disposition home or self-care (01) ==
LOC: FBCO 00:57 → FBC 11:54
PROVIDERS: PCP Family Medicine; Visit Provider Obstetrics & Gynecology
DX: O36.5930 Maternal care for other known or suspected poor fetal growth, third trimester, not applicable or unspecified (principal)
CPT/HCPCS: 59025

== ENCOUNTER 2024-07-16 00:10 | Outpatient (OUT) | payer OTHER, SELFPAY ==
--- NOTE | 2024-07-16 | US_ITS ---
[facility] [place] [address] Patient Name: HOMERO RAMIREZ MRN: [id number] date: 1990 Sex: F Assigned Patient Location: [facility] Current Patient Location: Accession/Order Number: [id number] Exam Date: 07/16/2024 12:03 Report Date: 07/16/2024 12:06 At the request of: ANA RHOADES Procedure: US OB BPP w non-stress BIOPHYSICAL PROFILE: CLINICAL INFORMATION: SMALL FOR GESTATIONAL AGE COMPARISON: 07/09/2024 There is a single live intrauterine gestation In cephalic presentation. The reported age is 36 weeks 6 days. The heart rate beats per minute. FINDINGS: TONE: 1 or more episodes of activity extension and flexion of extremity or opening and closing of the hand [Y] 2/2 GROSS BODY MOVEMENTS: 3 or more discrete body or limb movements [Y] 2/2 BREATHING MOVEMENTS: 1 or more episodes of breathing lasting at least 30 seconds [Y] 2/2 BE: A single deepest vertical pocket of amniotic fluid greater than 2 cm [Y] 2/2 BE: 10.916. This is in low-normal range. Total score: 8/8 US/US OB BPP w non-stress IMPRESSION: NORMAL BIOPHYSICAL PROFILE Impression dictated by: Ct Guillen M.D.07/16/2024 12:06 PM Dictation [facility] Electron[facility] authenticated by: [id number] Y Date: 07/16/2024 12:06
--- OUTSIDE RECORDS SUMMARY | 2024-07-16 00:13 | XMS_ITS | CCD ---
Author Organization [facility] Care Team Providers Care Interior Decorator Paperhanging Name Role Phone STEPH, DR MURO Admitting [...] Unavailable Vinicius Quintana MD Primary Care Provider [phone] SHAKIR CHOI Referring Unavailable DEFRANCE, VINICIUS Huntley Primary Care Unavailable IFRAH DÍAZ Attending Unavailable STEPH, SHAKIR R Referring Unavailable DEFRANCE, VINICIUS Huntley Primary Care Unavailable STEPH, SHAKIR R Referring Unavailable DEFRANCE, VINICIUS Huntley Primary Care Unavailable Benson Dial MD Primary Care Provider Un available MEDARDO, VINICIUS Huntley. Primary Care Unavailable KARENA FLYNN Attending Unavailable NAS THOMAS Admitting Unavaila ble DEFRANCE, VINICIUS Huntley Primary Care Unavailable CARROL DAVIS Attending Unavailable DEFRANCE, VINICIUS Huntley Primary Care Unavailable JUAN MIGUEL HOLDEN Admitting Unavailable ADINAJUAN MIGUEL DO Attending Unavailable DEFRANCE, VINICIUS Huntley Primary Care Unavailable SARAHLAURAERIU Admitting Unavailable SARAHLAURAERIU Attending Unavailable DEFRANCE, VINICIUS Huntley Primary Care Unavailable CORINA JEAN Attending Unavailable DEFRANCE, VINICIUS Huntley Primary Care Unavailable DEFRANCE, VINICIUS Huntley Primary Care Unavailable SOPHIA GALO Attending Unavailable STEPH, SHAKIR Attending Unavailable STEPH, SHAKIR Attending Unavailable STEPH, SHAKIR Attending Unavailable SOPHIA GALO Attending Unavailable STEPH, SHAKIR Attending Unavailable SOPHIA GALO Attending Unavailable STEPH, SHAKIR Attending Unavailable Vinicius Quintana MD Primary Care Provider [phone] Medications Current Medications Medication Drug Class(es) Dates [...] Local Anesthetic Start: 03-10-2023 lidocaine-EPINEPHr ine 1 %-1:[id number] injection 1 mL ferrous sulfate 325 mg [...] Onset: 02-26-2024 Episodic Anxiety disorders (6 sources) Anxiety disorder, unspecified; Translations: [Anxiety] Onset: 01-18-2018 01-18-2018 Chronic Cardiac and circulatory congenital anomalies (7 sources) Congenital heart disease; Translations: [Congenital malformation of heart, unspecified] Onset: 08-21-2021 08-21-2021 Chronic Deficiency and other anemia (1 source) Anemia, unspecified; Translations: [Anemia, unspecified] Onset: 12-05-2023 Episodic Deficiency and other anemia (1 source) Iron deficiency anemia, unspecified; Translations: [Iron deficiency anemia, unspecified] Onset: 12-05-2023 Episodic Early or threatened labor (7 sources) Premature uterine contraction; Translations: [False labor before 37 completed weeks of gestation, unspecified trimester] Onset: 10-02-2021 Resolved: 11-08-2021 06-09-2024 Episodic Genitourinary symptoms and ill-defined conditions (5 sources) History of urinary tract infection; Translations: [Personal history of urinary (tract) infections] Onset: 08-20-2021 08-21-2021 Episodic Hemorrhage during ; abruptio placenta; placenta previa (5 sources) Low lying placenta NOS or without hemorrhage, second trimester; Translations: [Complete placenta previa NOS or without hemorrhage, second trimester] Onset: 08-07-2021 05-05-2024 Episodic Inflammatory diseases of [...] other fetus] 05-05-2024 Episodic Other complications of (1 source) Supervision [...] iron; Translations: [Intestinal malabsorption, unspecified] Onset: 09-11-2021 01-02-2024 Chronic Other and delivery including normal (20 [...] of ] 04-12-2024 Episodic Residual codes; unclassified (18 sources) Gestation period, 27 weeks; Translations: [27 [...] of ] 06-23-2024 Episodic Residual codes; unclassified (3 sources) Gestation period, 35 weeks; Translations: [35 weeks gestation of ] Onset: 07-08-2024 07-08-2024 Episodic Residual codes; unclassified (3 sources) H/O: poisoning; Translations: [Other specified personal risk factors, not elsewhere classified] 05-05-2024 Episodic Residual codes; unclassified (1 source) History of placental abruption; Translations: [Personal history of other complications of , childbirth and the puerperium] 05-05-2024 Episodic Residual codes; unclassified (1 source) Gestation period, 26 weeks; Translations: [26 weeks gestation of ] 05-05-2024 Episodic Short gestation; low weight; and growth retardation (1 source) Mplif-lgc-jxcmi baby; Translations: [[place] small for gestational age, unspecified weight] 05-24-2024 [...] source) Cold Like Symptoms Onset: 07-17-2023 Unclassified (4 sources) OB Reminders Onset: 07-08-2024 07-08-2024 Urinary tract infections (6 sources) Urinary tract infectious disease; Translations: [Urinary tract infection, site not specified] 05-10-2024 Episodic Past or Other Problems Problem Classification Problem Date Documented Date Episodic/Chronic Deficiency and other anemia (2 sources) Iron deficiency anemia; Translations: [Iron deficiency anemia, unspecified] Onset: 12-05-2023 02-06-2024 Episodic Deficiency and other anemia (1 source) Anemia; Translations: [Anemia, unspecified] Onset: 09-04-2021 01-02-2024 Episodic Deficiency and other anemia (4 sources) Iron deficiency anemia secondary to inadequate dietary iron intake; Translations: [Other iron deficiency anemias] Onset: 09-11-2021 Resolved: 11-08-2021 11-08-2021 Episodic Immunizations and screening for infectious disease [...] 01-02-2024 Episodic Other aftercare (1 source) 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 [facility] Comment on above: Test Ordered: [id number] Strep Gp B Culture+Rflx Strep Gp B Culture+Rflx Negative CB Reference Range: Negative Centers for Disease Control and Prevention (CDC) and [place] [employer]st[employer] Gynecologists (ACOG) guidelines for prevention of group B streptococcal (GBS) disease specify co-collection of a vaginal and rectal swab specimen to maximize sensitivity of GBS detection. Per the CDC and ACOG, swabbing both the lower vagina and rectum substantially increases the yield of detection compared with sampling the vagina alone. Penicillin G, ampicillin, or cefazolin are indicated for intrapartum prophylaxis of GBS colonization. Reflex susceptibility testing should be performed prior to use of clindamycin only on GBS isolates from penicillin- allergic women who are considered a high risk for anaphylaxis. Treatment with vancomycin without additional testing is warranted if resistance to clindamycin is noted. Performed at: [facility] [id number] Iron Installer: Ramy Zavala PhD, Phone: [phone] CULTURE, GROUP B STREP [facility]ATCH) CUTTING MACHINE TENDER/ZHOU RO IF IND.on 07-11-2024 BILIRUBIN URINE Negative NEGATIVE [facility] BLOOD URINE Negative NEGATIVE [facility] Clarity (U) CLEAR CLEAR [facility] Color (U) YELLOW YELLOW [facility] GLUCOSE URINE UA Negative NEGATIVE mg/dL [facility] Interpretation and review of laboratory results Abnormal [facility] Ketones Ql (U) Negative NEGATIVE mg/dL [facility] Leukocyte esterase Test strip Ql (U) TRACE Abnormal NEGATIVE [facility] NITRITE URINE Negative NEGATIVE [facility] pH (U) 6.5 [pH] 5.0 - 9.0 [facility] PROTEIN URINE Negative NEG/TRACE mg/dL [facility] SPECIFIC GRAVITY URINE 1.015 1.005 - 1.025 [facility] URINE MICROSCOPIC INDICATED YES [facility] UROBILINOGEN URINE 0.2 EU/dL 0.2 - 1.0 EU/dL [facility] US OB BPP W NON-STRESS on 07-09-2024 [place] [address] Ultrasound Report Signed Patient: HOMERO DE LEON MR#: [id number] : 1990 Acct:[id number] Age/Sex: 33 / F ADM Date: 07/09/24 Loc: US Attending Dr: Sophia Galo Ordering Physician: Sophia Galo Date of Service: 07/09/24 Procedure(s): US OB BPP w non-stress Accession Number(s): [id number] cc: Sophia Galo; VINICIUS QUINTANA [place] [address] Patient Name: HOMERO DE LEON MRN: [facility]:[id number] date: 1990 Sex: F Assigned Patient Location: US Current Patient Location: Accession/Order Number: [id number] Exam Date: 07/09/2024 10:09 Report Date: 07/09/2024 [...] Signed By: 07/09/24 1407 DD/ 04 TD/TT: Acid Tester: [facility] Radiology, Radiologist, MD - 07/09/[address] [address] Ultrasound Report Signed Patient: HOMERO DE LEON MR#: [id number] : 1990 Acct:[id number] Age/Sex: 33 / F ADM Date: 07/09/24 Loc: US Attending Dr: Sophia Galo Ordering Physician: Sophia Galo Date of Service: 07/09/24 Procedure(s): US OB BPP w non-stress Accession Number(s): [id number] cc: Sophia Galo; VINICIUS QUINTANA [address] [address] Patient Name: HOMERO DE LEON MRN: [facility]:[id number] date: 1990 Sex: F Assigned Patient Location: US Current Patient Location: Accession/Order Number: [id number] Exam Date: 07/09/2024 10:09 Report Date: 07/09/2024 [...] M.D. Signed By: 07/09/241406 DD/ 04 TD/TT: Acid Tester: [facility] Radiology Study observation (narrative) [facility] US OB BPP W NON-STRESS Ordered By: Radiologist Radiology on 07-09-2024 [facility] Work Phone: US OB BPP W NON-STRESS on 06-23-2024 [place] [address] Ultrasound Report Signed Patient: HOMERO DE LEON MR#: [id number] : 1990 Acct:[id number] Age/Sex: 33 / F ADM Date: Loc: [facility] [address]: Shakir Choi D.O. Ordering Physician: Shakir Choi D.O. Date of Service: 06/23/24 Procedure(s): US OB BPP w non-stress Accession Number(s): [id number] cc: VINICIUS QUINTANA ; Shakir Choi D.O. The [address] [address] Patient Name: HOMERO DE LEON MRN: [facility]:[id number] date: 1990 Sex: F Assigned Patient Location: [facility] Current Patient Location: [facility] Accession/Order Number: [id number] Exam Date: 06/23/2024 14:01 Report Date: 06/23/2024 [...] Signed By: 06/23/24 1430 DD/ 1427 TD/TT: Acid Tester: [facility] Radiology, Radiologist, MD - 06/23/2024 [place] [address] Ultrasound Report Signed Patient: HOMERO DE LEON MR#: [id number] : 1990 Acct:[id number] Age/Sex: 33 / F ADM Date: Loc: [facility] 251-[address]: Shakir Choi D.O. Ordering Physician: Shakir Choi D.O. Date of Service: 06/23/24 Procedure(s): US OB BPP w non-stress Accession Number(s): [id number] cc: VINICIUS QUINTANA ; Shakir Choi D.O. [address] [address] Patient Name: HOMERO DE LEON MRN: [facility]:[id number] date: 1990 Sex: F Assigned Patient Location: [facility] Current Patient Location: [facility] Accession/Order Number: [id number] Exam Date: 06/23/2024 14:01 Report Date: 06/23/2024 [...] SALLIE MCKEON Date: 06/23/2024 14:27 Dictated By: Slalie Mckeon M.D. Signed By: 06/23/24 1430 DD/ 1427 TD/TT: Acid Tester: [facility] Radiology Study observation (narrative) [facility] US OB BPP W NON-STRESS Ordered By: Radiologist Radiology on 06-23-2024 [facility] Work Phone: Urinalysis macro (dipstick) panel (U)on 06-23-2024 Bilirubin, UA Positive Negative - 4(70) +++ mg/dL [facility] Comment on above: small Blood, UA Positive Negative - 50 Papo/mcL [facility] Comment on above: trace Clarity, UA Clear [facility] Color, UA Sera [facility] Glucose, UA Negative Negative - 2000(110) ++++ mg/dL [facility] Interpretation and review of laboratory results Abnormal [facility] Ketones, UA Positive Negative - 160(16) ++++ mg/dL [facility] Comment on above: 15 Leukocytes, UA Positive Negative - 500+++ Akash/mcL [facility] Comment on above: large Nitrite, UA Positive Negative - Positive [facility] pH, UA 6.5 5 - 9 [facility] Protein, UA Positive Negative - 2000(20) ++++ mg/dL [facility] Comment on above: 100 Spec Grav, UA 1.025 1 - 1.03 [facility] Urobilinogen, UA 1.0 0.2 - 12 mg/dL [facility] CHLAMYDIA/GC BY PCRon 2024 CHLAMYDIA/GC BY PCR [...] are dependent on adequate specimen collection. Normal [facility] Comment on above: Performed By: #### 2 106-3 #### [facility] ([id number]) [address] [place] [address] DRUG SCREEN, URINEon 025 AMPHETAMINE/METHAMP Negative Normal NEG [facility] Comment on above: Result Comment: AMPH /METH screening cut off = 1000 ng/mL Performed By: #### 2 106-3 #### [facility] ([id number]) [address] [place] [address] BARBITURATES Negative Normal NEG [facility] Comment on above: Result Comment: Allison iturates screening cut off value = 200 ng/mL Performed By: #### 2 106-3 #### [facility] ([id number]) [address] [place] [address] [place] [address] BENZODIAZEPINES Negative Normal NEG [facility] Comment on above: Result Comment: Dave odiazepines screening cut off value = 200 ng/mL Performed By: #### 2 106-3 #### [facility] ([id number]) [address] [place] [address] CANNABINOIDS Negative Normal NEG [facility] Comment on above: Result Comment: Eddie abinoids/THC screening cut off value = 50 ng/mL Performed By: #### 2 106-3 #### [facility] ([id number]) [address] [place] [address] COCAINE METABOLITE Negative Normal NEG [facility] Comment on above: Result Comment: Coca ine screening cut off value = 300 ng/mL Performed By: #### 2 106-3 #### [facility] ([id number]) [address] [place] [address] ECSTASY Negative Normal [facility] Comment on above: Result Comment: Ecst asy screening cut off value = 500 ng/mL This report is intended for use in clinical monitoring or management of patients. Performed By: #### 2 106-3 #### [facility] ([id number]) [address] [place] [address] METHADONE Negative Normal [facility] Comment on above: Result Comment: Meth adone screening cut off value = 300 ng/mL. Performed By: #### 2 106-3 #### [facility] ([id number]) [address] [place] [address] OPIATES Negative Normal NEG [facility] Comment on above: Result Comment: Opia victoria screening cut off value = 300 ng/mL NOTE: This test is used for the detection of codeine, hydrocodone (>1000 ng/mL), morphine and hydromorphone (>900 ng/mL) in urine. Performed By: #### 2 106-3 #### [facility] ([id number]) [address] [place] [address] OXYCODONE Negative Normal NEG [facility] Comment on above: Result Comment: Oxyc odone screening cut off value = 300 ng/mL NOTE: This test is used for the detection of oxycodone and oxymorphone in urine. Performed By: #### 2 106-3 #### [facility] ([id number]) [address] [place] [address] PHENCYCLIDINE Negative Normal NEG [facility] Comment on above: Result Comment: Phen cyclidine screening cut off value = 25 ng/mL Performed By: #### 2 106-3 #### [facility] ([id number]) [address] [place] [address]754 Fibronectin. Ql (Vag fl d)on 06-22-2024 FIBRONECTIN Positive Abnormal NEG [facility] Comment on above: Performed By: #### 2 106-3 #### [facility] ([id number]) [address] [place] [address] STREP B SCREEN CULTUREon S. agalactiae Org specific cx Ql (Vag+Rectum) CULTURE RESULTS POSITIVE FOR GROUP B STREPTOCOCCUS BY NUCLEIC ACID AMPLIFICATION : Group B streptococci remain universally susceptible to penicillin, ampicillin, and cefazolin. Resistance to clindamycin can occur. Please contact laboratory within 48 hr if clindamycin susceptibility testing is needed. Normal [facility] Comment on above: Performed By: #### 2 106-3 #### [facility] ([id number]) [address] [place] [address] URINALYSISon 06-22-2024 Bilirubin Ql (U) Negative Normal NEG [facility] Comment on above: Performed By: #### 2 106-3 #### [facility] ([id number]) [address] [place] [address] BLOOD/HGB MODERATE Abnormal NEG [facility] Comment on above: Performed By: #### 2 106-3 #### [facility] ([id number]) [address] [place] [address] Color (U) YELLOW Normal YELLOW [facility] Comment on above: Performed By: #### 2 106-3 #### [facility] ([id number]) [address] [place] [address] Glucose Ql (U) Negative Normal NEG [facility] Comment on above: Performed By: #### 2 106-3 #### [facility] ([id number]) [address] [place] [address] Ketones Ql (U) >80 Abnormal NEG [facility] Comment on above: Performed By: #### 2 106-3 #### [facility] ([id number]) [address] [place] [address] Leukocyte esterase Test strip Ql (U) Large Abnormal NEG [facility] Comment on above: Performed By: #### 2 106-3 #### [facility] ([id number]) [address] [place] [address] [place] [address] Nitrite Ql (U) Negative Normal NEG [facility] Comment on above: Performed By: #### 2 106-3 #### [facility] ([id number]) [address] [place] [address]18 pH (U) 7.0 [pH] Normal 5.0-8.5 [facility] Comment on above: Performed By: #### 2 106-3 #### [facility] ([id number]) [address] [place] [address] Protein Ql (U) >300 Abnormal NEG [facility] Comment on above: Performed By: #### 2 106-3 #### [facility] ([id number]) [address] [place] [address]5571 R.B.CELLS 6 /hpf High 0-5 [facility] Comment on above: Performed By: #### 2 106-3 #### [facility] ([id number]) [address] [place] [address] 23500 Specific gravity (U) [Rel density] 1.025 Normal 1.003-1.035 [facility] Comment on above: Performed By: #### 2 106-3 #### [facility] ([id number]) [address] [place] [address] SQUAMOUS EPITHELIUM 5 /hpf Normal 0-5 [facility] Comment on above: Performed By: #### 2 106-3 #### [facility] ([id number]) [address] [place] [address] TURBIDITY CLEAR Normal CLEAR [facility] Comment on above: Performed By: #### 2 106-3 #### [facility] ([id number]) [address] [place] [address] 13679 Urobilinogen Qn (U) 1.0 {Migue'U}/dL Normal <1.1 [facility] Comment on above: Performed By: #### 2 106-3 #### [facility] ([id number]) [address] [place] [address] 45005 W.B.CELLS 11 /hpf High 0-5 [facility] Comment on above: Performed By: #### 2 106-3 #### [facility] ([id number]) [address] [place] [address] 79695 URINE CULTUREon 06-22-2024 Bacteria identified Cx Nom (U) CULTURE RESULTS <10,000 ORGANISMS/ML NORMAL URO GENITAL JOHN PAUL Normal [facility] Comment on above: Performed By: #### 2 106-3 #### [facility] ([id number]) [address] [place] [address] 64519 VAGINITIS PANEL PCRon 2024 VAGINITIS PANEL PCR [...] clinical presentation to determine patient diagnosis. Normal [facility] Comment on above: Performed By: #### 2 106-3 #### [facility] ([id number]) [address] [place] [address], [place] [address] Urinalysis macro (dipstick) panel (U)on 05-24-2024 Bilirubin, UA Negative Negative - 4(70) +++ mg/dL [facility] Blood, UA Positive Negative - 50 Papo/mcL [facility] Clarity, UA Clear [facility] Color, UA Yellow [facility] Glucose, UA Negative Negative - 2000(110) ++++ mg/dL [facility] Interpretation and review of laboratory results Abnormal [facility] Ketones, UA Negative Negative - 160(16) ++++ mg/dL [facility] Leukocytes, UA Negative Negative - 500+++ Akash/mcL [facility] Nitrite, UA Negative Negative - Positive [facility] pH, UA 7 5 - 9 [facility] Protein, UA Trace Negative - 2000(20) ++++ mg/dL [facility] Spec Grav, UA 1.02 1 - 1.03 [facility] Urobilinogen, UA 1.0 0.2 - 12 mg/dL [facility] COMPLETE BLOOD COUNTon 05-13 Erythrocyte distribution width (RBC) [Ratio] 12.9 % Normal 11.5-15.0 [facility] Comment on above: Performed By: #### N UM #### [facility] ([id number]) [address] [place] [address] 86955 Hematocrit (Bld) [Volume fraction] 30.2 % Low 35-47 [facility] Comment on above: Performed By: #### N UM #### [facility] ([id number]) [address] [place] [address] 54538 Hemoglobin (Bld) [Mass/Vol] 10.4 g/dL Low 11.7-15.5 [facility] Comment on above: Performed By: #### N UM #### [facility] ([id number]) [address] [place] [address] 83550 MCH (RBC) [Entitic mass] 31.3 pg Normal 27-34 [facility] Comment on above: Performed By: #### N UM #### [facility] ([id number]) [address] [place] [address] 30380 MCHC (RBC) [Mass/Vol] 34.3 g/dL Normal 32-36 [facility] Comment on above: Performed By: #### N UM #### [facility] ([id number]) [address] [place] [address] 08852 MCV (RBC) [Entitic vol] 92 fL Normal 80-100 [facility] Comment on above: Performed By: #### N UM #### [facility] ([id number]) [address] [place] [address] 30546 Platelet mean volume (Bld) [Entitic vol] 8.7 fL Normal 7-12 [facility] Comment on above: Performed By: #### N UM #### [facility] ([id number]) [address] [place] [address] 21778 Platelets (Bld) [#/Vol] 285 10*3/uL Normal 150-450 [facility] Comment on above: Performed By: #### N UM #### [facility] ([id number]) [address] [place] [address] 80882 RBC COUNT 3.31 X10E12/L Low 3.80-5.20 [facility] Comment on above: Performed By: #### N UM #### [facility] ([id number]) [address] [place] [address] 42293 WBC (Bld) [#/Vol] 13.6 10*3/uL High 4.0-11.0 [facility] Comment on above: Performed By: #### N UM #### [facility] ([id number]) [address] [place] [address] 00337 COMPREHENSIVE METABOLIC PANE Baljit 05-13-2024 Albumin [Mass/Vol] 3.3 g/dL Normal 3.2-5.3 [facility] Comment on above: Performed By: #### N UM #### [facility] ([id number]) [address] [place] [address] 25688 ALP [Catalytic activity/Vol] 52 U/L Normal 39-130 [facility] Comment on above: Performed By: #### N UM #### [facility] ([id number]) [address] [place] [address] 82663 ALT [Catalytic activity/Vol] 10 U/L Normal 0-31 [facility] Comment on above: Performed By: #### N UM #### [facility] ([id number]) [address] [place] [address] 56179 Anion gap [Moles/Vol] 9 mmol/L Normal 5-15 [facility] Comment on above: Performed By: #### N UM #### [facility] ([id number]) [address] [place] [address] 40583 AST [Catalytic activity/Vol] 16 U/L Normal 0-41 [facility] Comment on above: Performed By: #### N UM #### [facility] ([id number]) [address] [place] [address] 45595 Bilirubin [Mass/Vol] 0.8 mg/dL Normal 0.3-1.2 [facility] Comment on above: Performed By: #### N UM #### [facility] ([id number]) [address] [place] [address] 36217 Calcium [Mass/Vol] 9.4 mg/dL Normal 8.5-10.5 [facility] Comment on above: Performed By: #### N UM #### [facility] ([id number]) [address] [place] [address] 92961 Chloride [Moles/Vol] 104 mmol/L Normal 98-109 [facility] Comment on above: Performed By: #### N UM #### [facility] ([id number]) [address] [place] [address] 10525 CO2 [Moles/Vol] 22 mmol/L Normal 22-32 [facility] Comment on above: Performed By: #### N UM #### [facility] ([id number]) [address] [place] [address] 22828 Creatinine [Mass/Vol] 0.63 mg/dL Normal 0.40-1.00 [facility] Comment on above: Result Comment: METH OD TRACEABLE TO IDMS STANDARD Performed By: #### N UM #### [facility] ([id number]) [address] [place] [address] [place] [address] eGFR (CKD-EPI) NON-RACE DEPENDENT >90 Normal >59 [facility] Comment on above: Result Comment: Reported eGFR is based on the CKD-EPI 2020 equation that does not use a race coefficient. Performed By: #### N UM #### [facility] ([id number]) [address] [place] [address] 90238 Glucose [Mass/Vol] 99 mg/dL Normal 65-99 [facility] Comment on above: Performed By: #### N UM #### [facility] ([id number]) [address] [place] [address] 13252 Potassium [Moles/Vol] 2.8 mmol/L Low 3.5-5.0 [facility] Comment on above: Performed By: #### N UM #### [facility] ([id number]) [address] [place] [address] 55193 Protein [Mass/Vol] 6.9 g/dL Normal 6.0-8.0 [facility] Comment on above: Performed By: #### N UM #### [facility] ([id number]) [address] [place] [address] 40194 Sodium [Moles/Vol] 135 mmol/L Normal 134-146 [facility] Comment on above: Performed By: #### N UM #### [facility] ([id number]) [address] [place] [address] 29078 Urea nitrogen [Mass/Vol] 7 mg/dL Normal 5-23 [facility] Comment on above: Performed By: #### N UM #### [facility] ([id number]) [address] [place] [address] 20787 Fibronectin. Ql (Vag fl d)on 05-13-2024 FIBRONECTIN Negative Normal NEG [facility] Comment on above: Performed By: #### N UM #### [facility] ([id number]) [address] [place] [address] 52375 STREP B SCREEN CULTUREon S. agalactiae Org specific cx Ql (Vag+Rectum) CULTURE RESULTS NEGATIVE FOR GROUP B STREPTOCOCCUS BY NUCLEIC ACID AMPLIFICATION Normal [facility] Comment on above: Performed By: #### 2 106-3 #### [facility] ([id number]) [address] [place] [address] [place] [address] URINALYSISon 05-13-2024 Bilirubin Ql (U) Negative Normal NEG [facility] Comment on above: Performed By: #### N UM #### [facility] ([id number]) [address] [place] [address] 79499 BLOOD/HGB Trace Abnormal NEG [facility] Comment on above: Performed By: #### N UM #### [facility] ([id number]) [address] [place] [address] 05093 Color (U) YELLOW Normal YELLOW [facility] Comment on above: Performed By: #### N UM #### [facility] ([id number]) [address] [place] [address] 40021 Glucose Ql (U) Negative Normal NEG [facility] Comment on above: Performed By: #### N UM #### [facility] ([id number]) [address] [place] [address] 36813 Ketones Ql (U) Negative Normal NEG [facility] Comment on above: Performed By: #### N UM #### [facility] ([id number]) [address] [place] [address] 21148 Leukocyte esterase Test strip Ql (U) Large Abnormal NEG [facility] Comment on above: Performed By: #### N UM #### [facility] ([id number]) [address] [place] [address] [place] [address] Nitrite Ql (U) Negative Normal NEG [facility] Comment on above: Performed By: #### N UM #### [facility] ([id number]) [address] [place] [address] [place] [address] pH (U) 7.0 [pH] Normal 5.0-8.5 [facility] Comment on above: Performed By: #### N UM #### [facility] ([id number]) [address] [place] [address] 55705 Protein Ql (U) Negative Normal NEG [facility] Comment on above: Performed By: #### N UM #### [facility] ([id number]) [address] [place] [address] 67404 R.B.CELLS 0 to 1 Normal 0-5 [facility] Comment on above: Performed By: #### N UM #### [facility] ([id number]) [address] [place] [address] 53175 Specific gravity (U) [Rel density] 1.010 Normal 1.003-1.035 [facility] Comment on above: Performed By: #### N UM #### [facility] ([id number]) [address] [place] [address] 96303 SQUAMOUS EPITHELIUM 5 /hpf Normal 0-5 [facility] Comment on above: Performed By: #### N UM #### [facility] ([id number]) [address] [place] [address] 45832 TURBIDITY CLEAR Normal CLEAR [facility] Comment on above: Performed By: #### N UM #### [facility] ([id number]) [address] [place] [address] 25251 Urobilinogen Qn (U) 0.2 {Migue'U}/dL Normal <1.1 [facility] Comment on above: Performed By: #### N UM #### [facility] ([id number]) [address] [place] [address] 60635 W.B.CELLS 5 /hpf Normal 0-5 [facility] Comment on above: Performed By: #### N UM #### [facility] ([id number]) [address] [place] [address] 12894 [place] BIOPHYSICAL PROFILE FET W O NSTon [...] Bueno MD on 05/13/2024 8:41 AM Normal [facility] No Panel Informationon 05-11 STAPHYLOCOCCUS [...] Not detected [facility] SERRATIA MARCESCENS 0 [facility] SERRATIA MARCESCENS Not detected [facility] STAPHYLOCOCCUS AUREUS 0 [facility] STAPHYLOCOCCUS AUREUS Not detected [facility] STREPTOCOCCUS AGALACTIAE (GROUP B STREP) 0 [facility] STREPTOCOCCUS AGALACTIAE (GROUP B STREP) Not detected [facility] STREPTOCOCCUS PYOGENES (GROUP A STREP) 0 [facility] STREPTOCOCCUS PYOGENES (GROUP A STREP) Not detected [facility] Urinalysis macro (dipstick) panel (U)on 05-10-2024 Bilirubin, UA Negative Negative - 4(70) +++ mg/dL [facility] Blood, UA Negative Negative - 50 Papo/mcL [facility] Clarity, UA Clear [facility] Color, UA Dark Sera [facility] Glucose, UA Negative Negative - 1999(110) ++++ mg/dL [facility] Interpretation and review of laboratory results Abnormal [facility] Ketones, UA Negative Negative - 160(16) ++++ mg/dL [facility] Leukocytes, UA Negative Negative - 500+++ Akash/mcL [facility] Nitrite, UA Positive Negative - Positive [facility] pH, UA 7.5 5 - 9 [facility] Protein, UA Positive Negative - 1999(20) ++++ mg/dL [facility] Comment on above: 30mg/dL Spec Grav, UA 1.02 1 - 1.03 [facility] Urobilinogen, UA 1.0 0.2 - 12 mg/dL [facility] Urinalysis macro (dipstick) panel (U)on 04-12-2024 Bilirubin, UA Negative Negative - 4(70) +++ mg/dL [facility] Blood, UA Negative Negative - 50 Papo/mcL [facility] Clarity, UA Clear [facility] Color, UA Yellow [facility] Glucose, UA Negative Negative - 1999(110) ++++ mg/dL [facility] Interpretation and review of laboratory results Abnormal [facility] Ketones, UA Positive Negative - 160(16) ++++ mg/dL [facility] Leukocytes, UA Negative Negative - 500+++ Akash/mcL [facility] Nitrite, UA Negative Negative - Positive [facility] pH, UA 7 5 - 9 [facility] Protein, UA Negative Negative - 1999(20) ++++ mg/dL [facility] Spec Grav, UA 1.02 1 - 1.03 [facility] Urobilinogen, UA 0.2 0.2 - 12 mg/dL [facility] CHLAMYDIA/GC BY PCRon 2023 CHLAMYDIA/GC BY [...] are dependent on adequate specimen collection. Normal [facility] Comment on above: Performed By: #### N UM #### [facility] ([id number]) [address] [place] [address] 82190 HIV 1+2 Ab+HIV1 p24 Ag IA Ql on 04-09-2024 HIV 1 and 2 Ab/Ag Screen Non-Reactive Normal NRCT [facility] Comment on above: Result [...] diagnoses. Performed By: #### N UM #### [facility] ([id number]) [address] [place] [address] 67811 T. pallidum IgG+IgM IA Ql (S )on 04-09-2024 Syphilis Total <0.2 Normal 0.0-0.8 [facility] Comment on above: Result Comment: NON REACTIVE No serologic evidence of infection to Treponema pallidum (syphilis). Repeat testing may be considered in patients with suspected acute or primary syphilis in 2 to 4 weeks. Performed By: #### N UM #### [facility] ([id number]) [address] [place] [address] 68255 URINALYSISon 04-09-2024 Bilirubin Ql (U) Negative Normal NEG [facility] Comment on above: Performed By: #### N UM #### [facility] ([id number]) [address] [place] [address], [place] [address] BLOOD/HGB Negative Normal NEG [facility] Comment on above: Performed By: #### N UM #### [facility] ([id number]) [address] [place] [address], [place] [address] Color (U) YELLOW Normal YELLOW [facility] Comment on above: Performed By: #### N UM #### [facility] ([id number]) [address] [place] [address], [place] [address] Glucose Ql (U) Negative Normal NEG [facility] Comment on above: Performed By: #### N UM #### [facility] ([id number]) [address] [place] [address] [place] [address] Ketones Ql (U) Trace Abnormal NEG [facility] Comment on above: Performed By: #### N UM #### [facility] ([id number]) [address] [place] [address], [place] [address] Leukocyte esterase Test strip Ql (U) Trace Abnormal NEG [facility] Comment on above: Performed By: #### N UM #### [facility] ([id number]) [address] [place] [address], [place] [address] Nitrite Ql (U) Negative Normal NEG [facility] Comment on above: Performed By: #### N UM #### [facility] ([id number]) [address] [place] [address], [place] [address] pH (U) 7.0 [pH] Normal 5.0-8.5 [facility] Comment on above: Performed By: #### N UM #### [facility] ([id number]) [address] [place] [address] [place] [address] Protein Ql (U) Trace Abnormal NEG [facility] Comment on above: Performed By: #### N UM #### [facility] ([id number]) [address] [place] [address] 63202 R.B.CELLS 2 /hpf Normal 0-5 [facility] Comment on above: Performed By: #### N UM #### [facility] ([id number]) [address] [place] [address] 26995 Specific gravity (U) [Rel density] 1.025 Normal 1.003-1.035 [facility] Comment on above: Performed By: #### N UM #### [facility] ([id number]) [address] [place] [address] 66989 SQUAMOUS EPITHELIUM 4 /hpf Normal 0-5 [facility] Comment on above: Performed By: #### N UM #### [facility] ([id number]) [address] [place] [address] 61957 TURBIDITY CLEAR Normal CLEAR [facility] Comment on above: Performed By: #### N UM #### [facility] ([id number]) [address] [place] [address] 22667 Urobilinogen Qn (U) 0.2 {Migue'U}/dL Normal <1.1 [facility] Comment on above: Performed By: #### N UM #### [facility] ([id number]) [address] [place] [address] 89275 W.B.CELLS 3 /hpf Normal 0-5 [facility] Comment on above: Performed By: #### N UM #### [facility] ([id number]) [address] [place] [address] 86612 No Panel Informationon 04-06 Interpretation and review of laboratory results Abnormal [facility] UA (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 YELLOW YELLOW [facility] GLUCOSE URINE UA Negative NEGATIVE mg/dL [facility] Ketones Ql (U) Negative NEGATIVE mg/dL [facility] Leukocyte esterase Test strip Ql (U) SMALL Abnormal NEGATIVE [facility] NITRITE URINE Negative NEGATIVE [facility] pH (U) 7.0 [pH] 5.0 - 9.0 [facility] PROTEIN URINE Negative NEG/TRACE mg/dL [facility] SPECIFIC GRAVITY URINE 1.010 1.005 - 1.025 [facility] URINE MICROSCOPIC INDICATED YES [facility] UROBILINOGEN URINE 1.0 EU/dL 0.2 - 1.0 EU/dL [facility] TBH URINE MICROSCOPIC ONLYon 04-06-2024 BACTERIA URINE TRACE Abnormal NONE SEEN #/HPF [facility] CAST SEEN? NONE SEEN NONE SEEN #/LPF [facility] CRYSTALS SEEN? None Seen None Seen #/HPF [facility] MUCUS URINE NONE SEEN NONE SEEN [facility] SQUAMOUS EPITHELIAL CELL URINE FEW Abnormal NONE/RARE #/LPF [facility] RBC 0-2 [facility] WBC 2-5 Abnormal NONE SEEN #/HPF [facility] URINE CULTURE INDICATED YES [facility] Urinalysis macro (dipstick) panel (U)on 03-15-2024 Bilirubin, UA Negative Negative - 4(70) +++ mg/dL [facility] Blood, UA Negative Negative - 50 Papo/mcL [facility] Clarity, UA Clear [facility] Color, UA Yellow [facility] Glucose, UA Negative Negative - 1999(110) ++++ mg/dL [facility] Interpretation and review of laboratory results Abnormal [facility] Ketones, UA Positive Negative - 160(16) ++++ mg/dL [facility] Leukocytes, UA Positive Negative - 500+++ Akash/mcL [facility] Nitrite, UA Positive Negative - Positive [facility] pH, UA 7 5 - 9 [facility] Protein, UA Positive Negative - 1999(20) ++++ mg/dL [facility] Spec Grav, UA 1.02 1 - 1.03 [facility] Urobilinogen, UA 1.0 0.2 - 12 mg/dL [facility] CHLAMYDIA/GC BY PCRon 2023 CHLAMYDIA/GC BY [...] are dependent on adequate specimen collection. Normal [facility] Comment on above: Performed By: #### C GS #### [facility] ([id number]) [address] [place] [address] [facility] ([id number]) [address] [place] [address], [address] [place] [address] HCG ( test) Ql (U)o n 02-26-2024 Beta HCG ( test) Ql (U) Positive Abnormal NEG [facility] Comment on above: Performed By: #### 2 106-3 #### [facility] ([id number]) [address] [place] [address] 44605 URINE CULTUREon 02-26-2024 Bacteria identified Cx Nom [...] F TRIMETH/SULFAMETHOXA ZOLE S <=1/19 F Susceptible [facility] Comment on above: Performed By: #### N UM #### [facility] ([id number]) [address] [place] [address] 96378 URN MACROSCOPIC NURon 2023 BILIRUBIN ALEKSANDRA Negative Normal NEG [facility] Comment on above: Performed By: #### N UM #### [facility] ([id number]) [address] [place] [address] [place] [address] BLOOD/HGB ALEKSANDRA Trace Abnormal NEG [facility] Comment on above: Performed By: #### N UM #### [facility] ([id number]) [address] [place] [address] [place] [address] GLUCOSE ALEKSANDRA Negative Normal NEG [facility] Comment on above: Performed By: #### N UM #### [facility] ([id number]) [address] [place] [address] [place] [address] KETONES ALEKSANDRA 80 mg/dL Abnormal NEG [facility] Comment on above: Performed By: #### N UM #### [facility] ([id number]) [address] [place] [address] 08754 LEUKOCYTE ESTERASE ALEKSANDRA Negative Normal NEG [facility] Comment on above: Performed By: #### N UM #### [facility] ([id number]) [address] [place] [address] [place] [address] NITRITE ALEKSANDRA Negative Normal NEG [facility] Comment on above: Performed By: #### N UM #### [facility] ([id number]) [address] [place] [address] [place] [address] PH ALEKSANDRA 6.0 Normal 5.0-8.5 [facility] Comment on above: Performed By: #### N UM #### [facility] ([id number]) [address] [place] [address] [place] [address] PROTEIN ALEKSANDRA >=300 Abnormal NEG [facility] Comment on above: Performed By: #### N UM #### [facility] ([id number]) [address] [place] [address] [place] [address] SPECIFIC GRAVITY ALEKSANDRA >=1.030 Normal 1.003-1.035 [facility] Comment on above: Performed By: #### N UM #### [facility] ([id number]) [address] [place] [address] 89097 UROBILINOGEN ALEKSANDRA 1.0 eu/dL Normal <1.[address] [facility] Comment on above: Performed By: #### N UM #### [facility] ([id number]) [address] [place] [address] 87462 VAGINITIS PANEL PCRon 2023 VAGINITIS PANEL PCR [...] clinical presentation to determine patient diagnosis. Normal [facility] Comment on above: Performed By: #### N UM #### [facility] ([id number]) [address] [place] [address] 54377 URETHRITIS/DISCHARGE PLUS VA GINITIS (HTRX)on 01-31-2024 ATOPOBIUM [...] 0.000 [facility] OZZIE GLABRATA Not detected [facility] OZZIE KRUSEI 0.000 [facility] OZZIE KRUSEI Not detected [facility] CHLAMYDIA TRACHOMATIS 0.000 [facility] CHLAMYDIA TRACHOMATIS Not detected N [facility] ERMB, C; MEFA 22.470 Abnormal [facility] ERMB, C; MEFA Detected Abnormal [facility] GARDNERELLA VAGINALIS 25.182 Abnormal [facility] GARDNERELLA VAGINALIS Detected Abnormal [facility] Interpretation and review of laboratory results Abnormal [facility] MEGASPHAERA (TYPES 1, 2) 21.331 Abnormal [facility] MEGASPHAERA (TYPES 1, 2) Detected Abnormal [facility] MYCOPLASMA GENITALIUM 0.000 [facility] MYCOPLASMA GENITALIUM Not detected N [facility] NEISSERIA GONORRHOEAE 0.000 [facility] NEISSERIA GONORRHOEAE Not detected N [facility] TET B, TET M 22.938 Abnormal [facility] TET B, TET M Detected Abnormal [facility] TRICHOMONAS VAGINALIS 0.000 [facility] TRICHOMONAS VAGINALIS Not detected N [facility] Urinalysis macro (dipstick) panel (U)on 01-29-2024 Bilirubin, UA Positive Negative - 4(70) +++ mg/dL [facility] Comment on above: small Blood, UA Negative Negative - 50 Papo/mcL [facility] Clarity, UA Cloudy [facility] Color, UA Yellow [facility] Glucose, UA Negative Negative - 1999(110) ++++ mg/dL [facility] Interpretation and review of laboratory results Abnormal [facility] Ketones, UA Positive Negative - 160(16) ++++ mg/dL [facility] Comment on above: trace Leukocytes, UA Negative Negative - 500+++ Akash/mcL [facility] Nitrite, UA Positive Negative - Positive [facility] pH, UA 6.0 5 - 9 [facility] Protein, UA Trace Negative - 2000(20) ++++ mg/dL [facility] Spec Grav, UA 1.030 1 - 1.03 [facility] Urobilinogen, UA 4.0 0.2 - 12 mg/dL [facility] ALL CBC WITH AUTO DIFFon BASOPHILS ABSOLUTE AUTO 0.0 [facility] Basophils/100 WBC (Bld) 0.3 % 0.2 - 2.0 % [facility] Eosinophils/100 WBC (Bld) 2.3 % 0.9 - 7.0 % [facility] Erythrocyte distribution width (RBC) [Ratio] 12.7 % 11.0 - 15.0 % [facility] Hematocrit (Bld) [Volume fraction] 31.8 % Low 36.0 - 48.0 % [facility] Hemoglobin (Bld) [Mass/Vol] 10.3 g/dL Low 12.0 - 16.0 g/dL [facility] IMMATURE GRANULOCYTES ABS AUTO 0.05 High [facility] Immature granulocytes/100 WBC (Bld) 0.4 % 0.0 - 0.5 % [facility] Interpretation and review of laboratory results Abnormal [facility] LYMPHOCYTES ABSOLUTE AUTO 2.4 [facility] Lymphocytes/100 WBC (Bld) 21.2 % 20.5 - 60.0 % [facility] MCH (RBC) [Entitic mass] 29.9 pg 26.7 - 34.0 pg [facility] MCHC (RBC) [Mass/Vol] 32.4 g/dL 29.9 - 35.2 g/dL [facility] MCV (RBC) [Entitic vol] 92.2 fL 81.0 - 99.0 fL [facility] MONOCYTES ABSOLUTE AUTO 0.8 [facility] Monocytes/100 WBC (Bld) 6.9 % 1.7 - 12.0 % [facility] NEUTROPHILS ABSOLUTE AUTO 8.0 High [facility] Neutrophils/100 WBC (Bld) 68.9 % 43.0 - 75.0 % [facility] Platelet mean volume (Bld) [Entitic vol] 10.9 fL 9.5 - 13.5 fL [facility] TBH EO # 0.3 [facility] TB PLT 385 [facility] RBC 3.45 Low [facility] WBC 11.5 High [facility] ALL TYPE AND SCREENon 2023 ABO and Rh group Nom (Bld) Blood group B Rh(D) positive [facility] MLR HEMOGLOBIN A1Con 024 Glucose [Mass/Vol] 82 mg/dL [facility] HbA1c (Bld) [Mass fraction] 4.5 % 4.5 - 6.2 % [facility] Comment on above: ADA RECOMMENDED LIMI T 4.0 - 6.0 ADA THERAPEUTIC TARGET < 7.0 ACTION SUGGESTED > 7.0 [facility] CBC AND AUTO DIFFon 12-20-19 24 ABSOLUTE BASOPHIL 0.1 X10E9/L Normal 0.0-0.2 [facility] Comment on above: Performed By: #### Marco Antonio ATKINSON CMP, #### [facility] ([id number]) [address] [place] [address] 24574 ABSOLUTE NEUTROPHIL 11.7 X10E9/L High 1.5-6.6 [facility] Comment on above: Performed By: #### Marco Antonio ATKINSON CMP, #### [facility] ([id number]) [address] [place] [address] 50605 Basophils/100 WBC (Bld) 0.4 % Normal [facility] Comment on above: Performed By: #### Marco Antonio ATKINSON CMP, #### [facility] ([id number]) [address] [place] [address] 35512 Eosinophils (Bld) [#/Vol] 0.3 10*3/uL Normal 0.0-0.4 [facility] Comment on above: Performed By: #### Marco Antonio ATKINSON CMP, #### [facility] ([id number]) [address] [place] [address] 35941 Eosinophils/100 WBC (Bld) 1.6 % Normal [facility] Comment on above: Performed By: #### Marco Antonio ATKINSON CMP, #### [facility] ([id number]) [address] [place] [address] 78434 Erythrocyte distribution width (RBC) [Ratio] 13.0 % Normal 11.5-15.0 [facility] Comment on above: Performed By: #### Marco Antonio ATKINSON CMP, #### [facility] ([id number]) [address] [place] [address] 72105 Hematocrit (Bld) [Volume fraction] 33.1 % Low 35-47 [facility] Comment on above: Performed By: #### C CEE ATKINSON, #### [facility] ([id number]) [address] [place] [address] 18439 Hemoglobin (Bld) [Mass/Vol] 11.1 g/dL Low 11.7-15.5 [facility] Comment on above: Performed By: #### C CEE ATKINSON, #### [facility] ([id number]) [address] [place] [address] 18550 Lymphocytes (Bld) [#/Vol] 2.6 10*3/uL Normal 1.0-3.5 [facility] Comment on above: Performed By: #### C CEE ATKINSON, #### [facility] ([id number]) [address] [place] [address] 52667 Lymphocytes/100 WBC (Bld) 16.5 % Normal [facility] Comment on above: Performed By: #### Marco Antonio ATKINSON CMP, #### [facility] ([id number]) [address] [place] [address] 01449 MCH (RBC) [Entitic mass] 30.3 pg Normal 27-34 [facility] Comment on above: Performed By: #### C CEE ATKINSON, #### [facility] ([id number]) [address] [place] [address] 42441 MCHC (RBC) [Mass/Vol] 33.6 g/dL Normal 32-36 [facility] Comment on above: Performed By: #### Marco Antonio ATKINSON CMP, #### [facility] ([id number]) [address] [place] [address] 33185 MCV (RBC) [Entitic vol] 90 fL Normal 80-100 [facility] Comment on above: Performed By: #### C BCA, CMP, #### [facility] ([id number]) [address] [place] [address] 81838 Monocytes (Bld) [#/Vol] 1.2 10*3/uL High 0-0.9 [facility] Comment on above: Performed By: #### C CHINA, CMP, #### [facility] ([id number]) [address] [place] [address] 33138 Monocytes/100 WBC (Bld) 7.5 % Normal [facility] Comment on above: Performed By: #### Marco Antonio ATKINSON, CMP, #### [facility] ([id number]) [address] [place] [address] 48204 Neutrophils/100 WBC (Bld) 74.0 % Normal [facility] Comment on above: Performed By: #### Marco Antonio ATKINSON, CMP, #### [facility] ([id number]) [address] [place] [address] 25071 Platelet mean volume (Bld) [Entitic vol] 9.1 fL Normal 7-12 [facility] Comment on above: Performed By: #### Marco Antonio ATKINSON, CMP, #### [facility] ([id number]) [address] [place] [address] 99964 Platelets (Bld) [#/Vol] 385 10*3/uL Normal 150-450 [facility] Comment on above: Performed By: #### Marco Antonio ATKINSON, CMP, #### [facility] ([id number]) [address] [place] [address] 20728 RBC COUNT 3.67 X10E12/L Low 3.80-5.20 [facility] Comment on above: Performed By: #### Marco Antonio ATKINSON, CMP, #### [facility] ([id number]) [address] [place] [address] [place] [address] WBC (Bld) [#/Vol] 15.8 10*3/uL High 4.0-11.0 [facility] Comment on above: Performed By: #### C CHINA CMP, #### [facility] ([id number]) [address] [place] [address] 77115 COMPREHENSIVE METABOLIC PANE Baljit 12-20-2023 Albumin [Mass/Vol] 4.2 g/dL Normal 3.2-5.3 [facility] Comment on above: Performed By: #### C CHINA, CMP, #### [facility] ([id number]) [address] [place] [address] 17108 ALP [Catalytic activity/Vol] 39 U/L Normal 39-130 [facility] Comment on above: Performed By: #### Marco Antonio ATKINSON CMP, #### [facility] ([id number]) [address] [place] [address] 67156 ALT [Catalytic activity/Vol] 14 U/L Normal 0-31 [facility] Comment on above: Performed By: #### C CHINA, CMP, #### [facility] ([id number]) [address] [place] [address] 85612 Anion gap [Moles/Vol] 6 mmol/L Normal 5-15 [facility] Comment on above: Performed By: #### C BCA, CMP, #### [facility] ([id number]) [address] [place] [address] 17677 AST [Catalytic activity/Vol] 20 U/L Normal 0-41 [facility] Comment on above: Performed By: #### C BCA, CMP, #### [facility] ([id number]) [address] [place] [address] 88277 Bilirubin [Mass/Vol] 0.6 mg/dL Normal 0.3-1.2 [facility] Comment on above: Performed By: #### C CEE ATKINSON, #### [facility] ([id number]) [address] [place] [address] 68668 Calcium [Mass/Vol] 8.9 mg/dL Normal 8.5-10.5 [facility] Comment on above: Performed By: #### C CEE ATKINSON, #### [facility] ([id number]) [address] [place] [address] 58383 Chloride [Moles/Vol] 104 mmol/L Normal 98-109 [facility] Comment on above: Performed By: #### C CEE ATKINSON, #### [facility] ([id number]) [address] [place] [address] 40273 CO2 [Moles/Vol] 22 mmol/L Normal 22-32 [facility] Comment on above: Performed By: #### C CEE ATKINSON, #### [facility] ([id number]) [address] [place] [address] 76525 Creatinine [Mass/Vol] 0.56 mg/dL Normal 0.40-1.00 [facility] Comment on above: Result Comment: METH OD TRACEABLE TO IDMS STANDARD Performed By: #### C CEE ATKINSON, #### [facility] ([id number]) [address] [place] [address] 57383 eGFR (CKD-EPI) NON-RACE DEPENDENT >90 Normal >59 [facility] Comment on above: Result Comment: Reported eGFR is based on the CKD-EPI 2020 equation that does not use a race coefficient. Performed By: #### C CEE ATKINSON, #### [facility] ([id number]) [address] [place] [address] 26001 Glucose [Mass/Vol] 112 mg/dL High 65-99 [facility] Comment on above: Performed By: #### C BCA, CMP, #### [facility] ([id number]) [address] [place] [address] 06369 Potassium [Moles/Vol] 3.2 mmol/L Low 3.5-5.0 [facility] Comment on above: Performed By: #### C CHINA CMP, #### [facility] ([id number]) [address] [place] [address] 13614 Protein [Mass/Vol] 7.6 g/dL Normal 6.0-8.0 [facility] Comment on above: Performed By: #### Marco Antonio ATKINSON CMP, #### [facility] ([id number]) [address] [place] [address] 67599 Sodium [Moles/Vol] 132 mmol/L Low 134-146 [facility] Comment on above: Performed By: #### C CHINA, CMP, #### [facility] ([id number]) [address] [place] [address] 23242 Urea nitrogen [Mass/Vol] 9 mg/dL Normal 5-23 [facility] Comment on above: Performed By: #### Marco Antonio BCA, CMP, #### [facility] ([id number]) [address] [place] [address] 62610 HCG ( test) Ql (U)o n 12-20-2023 Beta HCG ( test) Ql (U) Positive Abnormal NEG [facility] Comment on above: Performed By: #### 2 106-3 #### [facility] ([id number]) [address] [place] [address] 91898 HCG.beta subunit IA 3rd IS Q non 12-20-2023 [place] [address] m[IU]/mL Normal P [facility] Comment on above: Result Comment: NEW REFERENCE [...] neoplasms. Performed By: #### C BCA, CMP, [id number] #### [facility] ([id number]) [address] [place] [address] 57334 URINE CULTUREon 12-20-2023 Bacteria identified Cx Nom (U) CULTURE RESULTS NO GROWTH AT <1000 CFU/mL Normal [facility] Comment on above: Performed By: #### 6 30-4 #### [facility] ([id number]) [address] [place] [address], [address] [place] [address] URN MACROSCOPIC NURon 2023 BILIRUBIN ALEKSANDRA Negative Normal NEG [facility] Comment on above: Performed By: #### N UM #### [facility] ([id number]) [address] [place] [address] 32448 BLOOD/HGB ALEKSANDRA Trace Abnormal NEG [facility] Comment on above: Performed By: #### N UM #### [facility] ([id number]) [address] [place] [address] 12003 GLUCOSE ALEKSANDRA Negative Normal NEG [facility] Comment on above: Performed By: #### N UM #### [facility] ([id number]) [address] [place] [address] 16229 KETONES ALEKSANDRA Negative Normal NEG [facility] Comment on above: Performed By: #### N UM #### [facility] ([id number]) [address] [place] [address] 26517 LEUKOCYTE ESTERASE ALEKSANDRA Trace Abnormal NEG [facility] Comment on above: Performed By: #### N UM #### [facility] ([id number]) [address] [place] [address] 93359 NITRITE ALEKSANDRA Negative Normal NEG [facility] Comment on above: Performed By: #### N UM #### [facility] ([id number]) [address] [place] [address] 32146 PH ALEKSANDRA 6.5 Normal 5.0-8.5 [facility] Comment on above: Performed By: #### N UM #### [facility] ([id number]) [address] [place] [address] 29039 PROTEIN ALEKSANDRA Negative Normal NEG [facility] Comment on above: Performed By: #### N UM #### [facility] ([id number]) [address] [place] [address] 87581 SPECIFIC GRAVITY ALEKSANDRA 1.010 Normal 1.003-1.035 [facility] Comment on above: Performed By: #### N UM #### [facility] ([id number]) [address] [place] [address] 50812 UROBILINOGEN ALEKSANDRA 1.0 eu/dL Normal <1.[address] [facility] Comment on above: Performed By: #### N UM #### [facility] ([id number]) [address] [place] [address] 27232 Hgb Electrophoresison 2023 Hgb Elect.Interp. Normal Hb electrophoretic pattern. HbA = 97.2% HbA2 = 2.8% Normal Values [facility] Comment on above: Result Comment: (Hem oglobin A= 96.8 to 97.8% Hemoglobin A2= 2.2 to 3.2%) Performed By: #### F EBC, HGBE, B12FOL #### [address] [address] Iron Installer: Severino Jacobson MD #### RETCT, CDP, FERI #### [facility] [address] [place] [address] 40770 Iron Installer: Lukasz Puga MD Pathologist Review: ELECTRONICALLY SIGNED. AUTUMN MENDOZA M.D. [facility] Comment on above: Performed By: #### F EBC, HGBE, B12FOL #### [address] [address] Iron Installer: Severino Jacobson MD #### VALENCIA, CDP, FERI #### [facility] [address] [place] [address] 70164 Iron Installer: Lukasz Puga MD Smear to Pathologiston 12-07 Smear to Pathologist ELECTRONICALLY SIGNED. MITA REGAN M.D. [facility] Comment on above: Performed By: #### P ATH #### [address] [address] Iron Installer: Severino Jacobson MD B12/Folate Panelon Cobalamin (Vitamin B12) [Mass/Vol] 717 pg/mL Normal 232-1245 [facility] Comment on above: Performed By: #### F EBC, HGBE, B12FOL #### [address] [address] Iron Installer: Severino Jacobson MD #### RETCT, CDP, FERI #### [facility] [address] [place] [address] 47973 Iron Installer: Lukasz Puga MD Folic Acid 12.2 ng/mL Normal 4.8-24.2 [facility] Comment on above: Performed By: #### F EBC, HGBE, B12FOL #### [address] [address]64 Iron Installer: Severino Jacobson MD #### RETCT, CDP, FERI #### [facility] [address] [place] [address] 47407 Iron Installer: Lukasz Puga MD CBC with Diffon 12-05-2023 Abs. Atypical Lymphs 0.14 k/uL Normal [facility] Comment on above: Performed By: #### F EBC, HGBE, B12FOL #### [address] [address] Iron Installer: Severino Jacobson MD #### RETCT, CDP, FERI #### [facility] [address] [place] [address] 13236 Iron Installer: Lukasz Puga MD Abs. Basophil 0.07 k/uL Normal 0.0-0.2 [facility] Comment on above: Performed By: #### F EBC, HGBE, B12FOL #### [address] 8[address]12 Iron Installer: Severino Jacobson MD #### RETCT, CDP, FERI #### [facility] [address] [place] [address] 44138 Iron Installer: Lukasz Puga MD Abs.Imm.Granulocyte 0.00 k/uL Normal 0.00-0.30 [facility] Comment on above: Performed By: #### F EBC, HGBE, B12FOL #### [address] [address] Iron Installer: Severino Jacobson MD #### RETCT, CDP, FERI #### [facility] [place] [address] Iron Installer: Lukasz Puga MD Abs.Neutrophil (Seg) 2.80 k/uL Normal 1.8-7.7 [facility] Comment on above: Performed By: #### F EBC, HGBE, B12FOL #### [address] [address] Iron Installer: Severino Jacobson MD #### RETCT, CDP, FERI #### [facility] [address] [place] [address] 77158 Iron Installer: Lukasz Puga MD Atypical Lymphs 2 % Normal [facility] Comment on above: Performed By: #### F EBC, HGBE, B12FOL #### [address] [address]41 Iron Installer: Severino Jacobson MD #### RETCT, CDP, FERI #### [facility] [address] [place] [address] 72750 Iron Installer: Lukasz Puga MD Basophils/100 WBC (Bld) 1 % Normal [facility] Comment on above: Performed By: #### F EBC, HGBE, B12FOL #### [address] [address]858 Iron Installer: Severino Jacobson MD #### RETCT, CDP, FERI #### [facility] [address] [place] [address] 07355 Iron Installer: Lukasz Puga MD Eosinophils (Bld) [#/Vol] 0.07 10*3/uL Normal 0.0-0.4 [facility] Comment on above: Performed By: #### F EBC, HGBE, B12FOL #### [address] [address] Iron Installer: Severino Jacobson MD #### VALENCIA, CDP, FERI #### [facility] [place] [address] Iron Installer: Lukasz Puga MD Eosinophils/100 WBC (Bld) 1 % Normal 1-4 [facility] Comment on above: Performed By: #### F EBC, HGBE, B12FOL #### [address] [address]160 Iron Installer: Severino Jacobson MD #### VALENCIA, CDP, FERI #### [facility] [address] [place] [address] 66676 Iron Installer: Lukasz Puga MD Immature granulocytes/100 WBC (Bld) 0 % Normal 0 [facility] Comment on above: Performed By: #### F EBC, HGBE, B12FOL #### [address] [address]608 Iron Installer: Severino Jacobson MD #### VALENCIA, CDP, FERI #### [facility] [address] [place] [address] 51657 Iron Installer: Lukasz Puga MD Lymphocytes (Bld) [#/Vol] 3.29 10*3/uL Normal 1.0-4.8 [facility] Comment on above: Performed By: #### F EBC, HGBE, B12FOL #### [address] [address]27 Iron Installer: Severino Jacobson MD #### RETCT, CDP, FERI #### [facility] [address] [place] [address] 57987 Iron Installer: Lukasz Puga MD Lymphocytes/100 WBC (Bld) 47 % High 24-44 [facility] Comment on above: Performed By: #### F EBC, HGBE, B12FOL #### [address] [address]54 Iron Installer: Severino Jacobson MD #### RETCT, CDP, FERI #### [facility] [address] [place] [address] 59201 Iron Installer: Lukasz Puga MD Monocytes (Bld) [#/Vol] 0.63 10*3/uL Normal 0.2-0.8 [facility] Comment on above: Performed By: #### F EBC, HGBE, B12FOL #### [address] [address]133 Iron Installer: Severino Jacobson MD #### VALENCIA, CDP, FERI #### [facility] [address] [place] [address] 53067 Iron Installer: Lukasz Puga MD Monocytes/100 WBC (Bld) 9 % High 1-7 [facility] Comment on above: Performed By: #### F EBC, HGBE, B12FOL #### [address] [address] Iron Installer: Severino Jacobson MD #### FINNCT, CDP, FERI #### [facility] [address] [place] [address] 80418 Iron Installer: Lukasz Puga MD Neutrophil (Seg) 40 % Normal 36-66 [facility] Comment on above: Performed By: #### F EBC, HGBE, B12FOL #### [address] 64716 Iron Installer: Severino Jacobson MD #### RETCT, CDP, FERI #### [facility] [address] [place] [address] 72978 Iron Installer: Lukasz Puga MD Erythrocyte distribution width (RBC) [Ratio] 12.6 % Normal 11.8-14.4 [facility] Comment on above: Performed By: #### F EBC, HGBE, B12FOL #### [address] [address] Iron Installer: Severino Jacobson MD #### RETCT, CDP, FERI #### [facility] [address] [place] [address] 59896 Iron Installer: Lukasz Puga MD Hematocrit (Bld) [Volume fraction] 31.0 % Low 36.3-47.1 [facility] Comment on above: Performed By: #### F EBC, HGBE, B12FOL #### [address] [address] Iron Installer: Severino Jacobson MD #### RETCT, CDP, FERI #### [facility] [address] [place] [address] 64424 Iron Installer: Lukasz Puga MD Hemoglobin (Bld) [Mass/Vol] 9.9 g/dL Low 11.9-15.1 [facility] Comment on above: Performed By: #### F EBC, HGBE, B12FOL #### [address] [address] Iron Installer: Severino Jacobson MD #### RETCT, CDP, FERI #### [facility] [address] [place] [address] 24037 Iron Installer: Lukasz Puga MD MCH (RBC) [Entitic mass] 29.8 pg Normal 25.2-33.5 [facility] Comment on above: Performed By: #### F EBC, HGBE, B12FOL #### [address] [address] Iron Installer: Severino Jacobson MD #### RETCT, CDP, FERI #### [facility] [address] [place] [address] 36036 Iron Installer: Lukasz Puga MD MCHC (RBC) [Mass/Vol] 31.9 g/dL Normal 28.4-34.8 [facility] Comment on above: Performed By: #### F EBC, HGBE, B12FOL #### [address] [address] Iron Installer: Severino Jacobson MD #### FINNCT, CDP, FERI #### [facility] [address] [place] [address] 46017 Iron Installer: Lukasz Puga MD MCV (RBC) [Entitic vol] 93.4 fL Normal 82.6-102.9 [facility] Comment on above: Performed By: #### F EBC, HGBE, B12FOL #### [address] [address] Iron Installer: Severino Jacobson MD #### RETCT, CDP, FERI #### [facility] [address] [place] [address] 08181 Iron Installer: Lukasz Puga MD NRBC Automated 0.0 per 100 WBC Normal 0.0 [facility] Comment on above: Performed By: #### F EBC, HGBE, B12FOL #### [address] [address] Iron Installer: Severino Jacobson MD #### RETCT, CDP, FERI #### [facility] [address] [place] [address] 73622 Iron Installer: Lukasz Puga MD Platelet mean volume (Bld) [Entitic vol] 9.9 fL Normal 8.1-13.5 [facility] Comment on above: Performed By: #### F EBC, HGBE, B12FOL #### [address] [address] Iron Installer: Severino Jacobson MD #### RETCT, CDP, FERI #### [facility] [place] [address] Iron Installer: Lukasz Puga MD Platelets (Bld) [#/Vol] 296 10*3/uL Normal 138-453 [facility] Comment on above: Performed By: #### F EBC, HGBE, B12FOL #### [address] [address] Iron Installer: Severino Jacobson MD #### RETCT, CDP, FERI #### [facility] [address] [place] [address] 56800 Iron Installer: Lukasz Puga MD RBC (Bld) [#/Vol] 3.32 10*6/uL Low 3.95-5.11 [facility] Comment on above: Performed By: #### F EBC, HGBE, B12FOL #### [address] [address] Iron Installer: Severino Jacobson MD #### RETCT, CDP, FERI #### [facility] [place] [address] Iron Installer: Lukasz Puga MD WBC (Bld) [#/Vol] 7.0 10*3/uL Normal 3.5-11.3 [facility] Comment on above: Performed By: #### F EBC, HGBE, B12FOL #### [address] [address] Iron Installer: Severino Jacobson MD #### RETCT, CDP, FERI #### [facility] [address] [place] [address] Iron Installer: Lukasz Puga MD Ferritinon 12-05-2023 Ferritin [Mass/Vol] 39 ng/mL Normal 13-150 [facility] Comment on above: Performed By: #### F EBC, HGBE, B12FOL #### [address] [address] Iron Installer: Severino Jacobson MD #### RETCT, CDP, FERI #### [facility] [address] [place] [address] 81902 Iron Installer: Lukasz Puga MD Iron Binding Cap.on 12-05-19 24 % Fe Saturation 14 % Low 20-55 [facility] Comment on above: Performed By: #### F EBC, HGBE, B12FOL #### [address] [address] Iron Installer: Severino Jacobson MD #### RETCT, CDP, FERI #### [facility] [address] [place] [address] 13574 Iron Installer: Lukasz Puga MD Iron [Mass/Vol] 42 ug/dL Normal 37-145 [facility] Comment on above: Performed By: #### F EBC, HGBE, B12FOL #### [address] [address] Iron Installer: Severino Jacobson MD #### RETCT, CDP, FERI #### [facility] [address] [place] [address] 92307 Iron Installer: Lukasz Puga MD Total Fe Binding Cap 310 ug/dL Normal 250-450 [facility] Comment on above: Performed By: #### F EBC, HGBE, B12FOL #### [address] [address] Iron Installer: Severino Jacobson MD #### VALENCIA, CDP, FERI #### [facility] [address] [place] [address] 27485 Iron Installer: Lukasz Puga MD Unbound Fe Bind Cap 268 ug/dL Normal 112-347 [facility] Comment on above: Performed By: #### F EBC, HGBE, B12FOL #### [address] [address] Iron Installer: Severino Jacobson MD #### VALENCIA, CDP, FERI #### [facility] [address] [place] [address] 14990 Iron Installer: Lukasz Puga MD Retic Counton 12-05-2023 Absolute Retic 0.062 M/uL Normal 0.030-0.080 [facility] Comment on above: Performed By: #### F EBC, HGBE, B12FOL #### [address] [address] Iron Installer: Severino Jacobson MD #### VALENCIA, CDP, FERI #### [facility] [address] [place] [address] 88877 Iron Installer: Lukasz Puga MD IRF 9.6 % Normal 2.7-18.3 [facility] Comment on above: Performed By: #### F EBC, HGBE, B12FOL #### [address] [address] Iron Installer: Severino Jacobson MD #### RETCT, CDP, FERI #### [facility] [address] [place] [address] 54592 Iron Installer: Lukasz Puga MD Retic Count 1.8 % Normal 0.5-1.[address] [facility] Comment on above: Performed By: #### F EBC, HGBE, B12FOL #### [address] [phone] Iron Installer: Severino Jacobson MD #### VALENCIA, CDP, FERI #### [facility] [address] [place] [address] [phone] Iron Installer: Lukasz Puga MD Retic Hemoglobin 28.8 pg Normal 28.2-35.7 [facility] Comment on above: Performed By: #### F EBC, HGBE, B12FOL #### [address] [phone] Iron Installer: Severino Jacobson MD #### VALENCIA, CDP, FERI #### [facility] [address] [place] [address] [phone] Iron Installer: Lukasz Puga MD Surgical Pathology Reporton 12-05-2023 Surgical Pathology Report (NOTE) [id number] [facility] CONSULTING PATHOLOGISTS [facility] [place] ANATOMIC PATHOLOGY [address] [place] [id number] SURGICAL PATHOLOGY CONSULTATION Patient Name: HOMERO DE LEON MR#: [id number] Specimen #[id number] Procedures/Addenda PERIPHERAL BLOOD REPORT Date Ordered: 12/07/2023 Status: Signed Out Date Complete: 12/08/2023 By: Mita Regan M.D. Date Reported: 12/08/2023 INTERPRETATION Peripheral blood: - Normocytic normochromic anemia with unremarkable red blood cell morphology. - White blood cells with normal morphology. No blasts. - Platelets with unremarkable morphology. RESULTS-COMMENTS PERIPHERAL BLOOD STUDY CBC: Please see the electronic health record for CBC parameters ([id number], 12/05/2023, 13:35). PLATELETS: Platelets show normal morphology. LEUKOCYTES: White blood cells show normal morphology. No atypical lymphocytes. No dysplasia. There are no blasts. ERYTHROCYTES: Normocytic normochromic anemia. Red blood cells show normal morphology. Note: The electronic health record is reviewed. Mita Regan M.D. Source: A: [facility] CBC with Diffon 11-06-2023 Abs. Basophil 0.04 k/uL Normal 0.00-0.20 [facility] Comment on above: Performed By: #### C MEGHA MIJARES, LIPRF #### [place] [address] Iron Installer: Severino Jacobson MD Abs.Imm.Granulocyte <0.03 Normal 0.00-0.30 [facility] Comment on above: Performed By: #### C DYLLAN CP, LIPRF #### [place] [address] Iron Installer: Severino Jacobson MD Abs.Neutrophil (Seg) 4.76 k/uL Normal 1.50-8.[address] [facility] Comment on above: Performed By: #### C DYLLAN CP, LIPRF #### [place] [address] Iron Installer: Severino Jacobson MD Basophils/100 WBC (Bld) 1 % Normal 0-2 [facility] Comment on above: Performed By: #### C DYLLAN CP, LIPRF #### [address] [address] Iron Installer: Severino Jacobson MD Eosinophils (Bld) [#/Vol] 0.24 10*3/uL Normal 0.00-0.44 [facility] Comment on above: Performed By: #### C MEGHA MIJARES, LIPRF #### [address] [address] Iron Installer: Severino Jacobson MD Eosinophils/100 WBC (Bld) 3 % Normal 1-4 [facility] Comment on above: Performed By: #### C DP, CP, LIPRF #### [address] [address] Iron Installer: Severino Jacobson MD Erythrocyte distribution width (RBC) [Ratio] 12.3 % Normal 11.8-14.4 [facility] Comment on above: Performed By: #### C DP, CP, LIPRF #### [facility] [employer] [address] [place] [address] Iron Installer: Severino Jacobson MD Hematocrit (Bld) [Volume fraction] 35.5 % Low 36.3-47.1 [facility] Comment on above: Performed By: #### C DP, CP, LIPRF #### [facility] [employer] [address] [place] [address] Iron Installer: Severino Jacobson MD Hemoglobin (Bld) [Mass/Vol] 11.2 g/dL Low 11.9-15.1 [facility] Comment on above: Performed By: #### C DP, CP, LIPRF #### [address] [address] Iron Installer: Severino Jacobson MD Immature granulocytes/100 WBC (Bld) 0 % Normal 0 [facility] Comment on above: Performed By: #### C DP, CP, LIPRF #### [place] [address] Iron Installer: Severino Jacobson MD Lymphocytes (Bld) [#/Vol] 2.47 10*3/uL Normal 1.10-3.70 [facility] Comment on above: Performed By: #### C DP, CP, LIPRF #### [facility] [employer] [address] [place] [address] Iron Installer: Severino Jacobson MD Lymphocytes/100 WBC (Bld) 31 % Normal 24-43 [facility] Comment on above: Performed By: #### C DP, CP, LIPRF #### [address] [address] Iron Installer: Severino Jacobson MD MCH (RBC) [Entitic mass] 29.6 pg Normal 25.2-33.5 [facility] Comment on above: Performed By: #### C DP, CP, LIPRF #### [place] [address] Iron Installer: Severino Jacobson MD MCHC (RBC) [Mass/Vol] 31.5 g/dL Normal 28.4-34.8 [facility] Comment on above: Performed By: #### C DP, CP, LIPRF #### [address] [address] Iron Installer: Severino Jacobson MD MCV (RBC) [Entitic vol] 93.9 fL Normal 82.6-102.9 [facility] Comment on above: Performed By: #### C DP, CP, LIPRF #### [place] [address] Iron Installer: Severino Jacobson MD Monocytes (Bld) [#/Vol] 0.56 10*3/uL Normal 0.10-1.20 [facility] Comment on above: Performed By: #### C DP, CP, LIPRF #### [address] [address] Iron Installer: Severino Jacobson MD Monocytes/100 WBC (Bld) 7 % Normal 3-12 [facility] Comment on above: Performed By: #### C DP, CP, LIPRF #### [address] [address] Iron Installer: Severino Jacobson MD Neutrophil (Seg) 58 % Normal 36-65 [facility] Comment on above: Performed By: #### C DP, CP, LIPRF #### [address] [address] Iron Installer: Severino Jacobson MD NRBC Automated 0.0 per 100 WBC Normal 0.0 [facility] Comment on above: Performed By: #### C DP, CP, LIPRF #### [address] [address] Iron Installer: Severino Jacobson MD Platelet mean volume (Bld) [Entitic vol] 10.5 fL Normal 8.1-13.5 [facility] Comment on above: Performed By: #### C DP, CP, LIPRF #### [address] [address] Iron Installer: Severino Jacobson MD Platelets (Bld) [#/Vol] 501 10*3/uL High 138-453 [facility] Comment on above: Performed By: #### C DP, CP, LIPRF #### [address] [address] Iron Installer: Severino Jacobson MD RBC (Bld) [#/Vol] 3.78 10*6/uL Low 3.95-5.11 [facility] Comment on above: Performed By: #### C DP, CP, LIPRF #### [address] [address] Iron Installer: Severino Jacobson MD WBC (Bld) [#/Vol] 8.1 10*3/uL Normal 3.5-11.3 [facility] Comment on above: Performed By: #### C DP, CP, LIPRF #### [address] [address] Iron Installer: Severino Jacobson MD Comp Metabolic Profon 2023 Albumin [Mass/Vol] 4.8 g/dL Normal 3.5-5.2 [facility] Comment on above: Performed By: #### C DP, CP, LIPRF #### [facility] [employer] [address] [place] [address] Iron Installer: Severino Jacobson MD Albumin/Glob Ratio 2.0 Normal 1.0-2.5 [facility] Comment on above: Performed By: #### C DP, CP, LIPRF #### [address] [address] Iron Installer: Severino Jacobson MD Alkaline Phos 43 U/L Normal 35-104 [facility] Comment on above: Performed By: #### C DP, CP, LIPRF #### [address] [address] Iron Installer: Severino Jacobson MD ALT [Catalytic activity/Vol] 14 U/L Normal 10-35 [facility] Comment on above: Performed By: #### C DP, CP, LIPRF #### [address] [address] Iron Installer: Severino Jacobson MD Anion gap [Moles/Vol] 10 mmol/L Normal 9-16 [facility] Comment on above: Performed By: #### C DP, CP, LIPRF #### [address] [address] Iron Installer: Severino Jacobson MD AST [Catalytic activity/Vol] 27 U/L Normal 10-35 [facility] Comment on above: Performed By: #### C DP, CP, LIPRF #### [address] [address] Iron Installer: Severino Jacobson MD Bilirubin [Mass/Vol] 0.6 mg/dL Normal 0.00-1.[address] [facility] Comment on above: Performed By: #### C DP, CP, LIPRF #### [facility] [employer] [address] [place] [address] Iron Installer: Severino Jacobson MD Calcium [Mass/Vol] 9.5 mg/dL Normal 8.6-10.4 [facility] Comment on above: Performed By: #### C MEGHA MIJARES, LIPRF #### [address] [address] Iron Installer: Severino Jacobson MD Chloride [Moles/Vol] 103 mmol/L Normal 98-[address] [facility] Comment on above: Performed By: #### C DYLLAN CP, LIPRF #### [address] [address] Iron Installer: Severino Jacobson MD CO2 [Moles/Vol] 26 mmol/L Normal 20-31 [facility] Comment on above: Performed By: #### C MEGHA MIJARES, LIPRF #### [address] [address] Iron Installer: Severino Jacobson MD Creatinine [Mass/Vol] 0.8 mg/dL Normal 0.50-0.90 [facility] Comment on above: Performed By: #### C MEGHA MIJARES, LIPRF #### [address] [address] Iron Installer: Severino Jacobson MD GFR/1.73 sq M.predicted among non-blacks MDRD (S/P/Bld) [Vol rate/Area] mL/min/{1.73_m2} Normal >60 [facility] Comment on above: Result Comment: These [...] By: #### C MEGHA MIJARES, LIPRF #### [address] [address] Iron Installer: Severino Jacobson MD Glucose [Mass/Vol] 90 mg/dL Normal 74-99 [facility] Comment on above: Performed By: #### C DP, CP, LIPRF #### [address] [address] Iron Installer: Severino Jacobson MD Potassium [Moles/Vol] 3.9 mmol/L Normal 3.7-5.3 [facility] Comment on above: Performed By: #### C DP, CP, LIPRF #### [address] [address] Iron Installer: Severino Jacobson MD Protein [Mass/Vol] 7.7 g/dL Normal 6.6-8.7 [facility] Comment on above: Performed By: #### C DP, CP, LIPRF #### [address] [address] Iron Installer: Severino Jacobson MD Sodium [Moles/Vol] 139 mmol/L Normal 136-145 [facility] Comment on above: Performed By: #### C DP, CP, LIPRF #### [facility] [employer] [address] [place] [address] Iron Installer: Severino Jacobson MD Urea nitrogen [Mass/Vol] 12 mg/dL Normal 6-20 [facility] Comment on above: Performed By: #### C DP, CP, LIPRF #### [facility] [employer] [address] [place] [address] Iron Installer: Severino Jacobson MD Lipid Prof, Fastingon 2023 Cholesterol [Mass/Vol] 178 mg/dL Normal 0-199 [facility] Comment on above: Result Comment: Cholesterol Guidelines: <200 Desirable 200-240 Borderline >240 Undesirable Performed By: #### C DP, CP, LIPRF #### [address] [address] Iron Installer: Severino Jacobson MD Cholesterol in HDL [Mass/Vol] 50 mg/dL Normal >40 [facility] Comment on above: Result Comment: HDL Guidelines: <40 Undesirable 40-59 Borderline >59 Desirable Performed By: #### C DP, CP, LIPRF #### [address] [address] Iron Installer: Severino Jacobson MD Cholesterol in LDL [Mass/Vol] 115 mg/dL High 0-100 [facility] Comment on above: Result Comment: LDL Guidelines: <100 Desirable 100-129 Near to/above Desirable 130-159 Borderline >159 Undesirable Direct (measured) LDL and calculated LDL are not interchangeable tests. Performed By: #### C DP, CP, LIPRF #### [address] [address] Iron Installer: Severino Jacobson MD Cholesterol in VLDL [Mass/Vol] 13 mg/dL Normal [facility] Comment on above: Performed By: #### C DP, CP, LIPRF #### [facility] [employer] [address] [place] [address] Iron Installer: Severino Jacobson MD Cholesterol.total/Chol esterol in HDL [Mass ratio] 4.0 {ratio} Normal [facility] Comment on above: Performed By: #### C DP CP, LIPRF #### [facility] [employer] [address] [place] [address] Iron Installer: Severino Jacobson MD Triglyceride,Fasting 64 mg/dL Normal 0-[address] [facility] Comment on above: Result Comment: Triglyceride Guidelines: <150 Desirable 150-199 Borderline 200-499 High >499 Very high Based on AHA Guidelines for fasting triglyceride, February 2012. Performed By: #### C DP, CP, LIPRF #### [address] [address] Iron Installer: Severino Jacobson MD CBC with Diffon 04-09-2024 Abs. Basophil <0.03 Normal 0.00-0.20 [facility] Comment on above: Performed By: #### C FANNIE MIJARES, CP #### [address] [address] Iron Installer: Severino Jacobson MD Abs.Imm.Granulocyte <0.03 Normal 0.00-0.30 [facility] Comment on above: Performed By: #### C FANNIE MIJARES, CP #### [place] [address] Iron Installer: Severino Jacobson MD Abs.Neutrophil (Seg) 3.88 k/uL Normal 1.50-8.[address] [facility] Comment on above: Performed By: #### C FANNIE MIJARES, CP #### [place] [address] Iron Installer: Severino Jacobson MD Basophils/100 WBC (Bld) 0 % Normal 0-2 [facility] Comment on above: Performed By: #### C FANNIE MIJARES, CP #### [place] [address] Iron Installer: Severino Jacobson MD Eosinophils (Bld) [#/Vol] 0.18 10*3/uL Normal 0.00-0.44 [facility] Comment on above: Performed By: #### C FANNIE MIJARES, CP #### [place] [address] Iron Installer: Severino Jacobson MD Eosinophils/100 WBC (Bld) 3 % Normal 1-4 [facility] Comment on above: Performed By: #### C FANNIE MIJARES, CP #### [place] [address] Iron Installer: Severino Jacobson MD Erythrocyte distribution width (RBC) [Ratio] 12.6 % Normal 11.8-14.4 [facility] Comment on above: Performed By: #### C DP LIPRF, CP #### [address] [address] Iron Installer: Severino Jacobson MD Hematocrit (Bld) [Volume fraction] 34.6 % Low 36.3-47.1 [facility] Comment on above: Performed By: #### C DP LIPRF, CP #### [place] [address] Iron Installer: Severino Jacobson MD Hemoglobin (Bld) [Mass/Vol] 10.8 g/dL Low 11.9-15.1 [facility] Comment on above: Performed By: #### C DP LIPRF, CP #### [place] [address] Iron Installer: Severino Jacobson MD Immature granulocytes/100 WBC (Bld) 0 % Normal 0 [facility] Comment on above: Performed By: #### C EKTA MIJARESRF, CP #### [place] [address] Iron Installer: Severino Jacobson MD Lymphocytes (Bld) [#/Vol] 2.64 10*3/uL Normal 1.10-3.70 [facility] Comment on above: Performed By: #### C DYLLAN LIPRF, CP #### [place] [address] Iron Installer: Severino Jacobson MD Lymphocytes/100 WBC (Bld) 37 % Normal 24-43 [facility] Comment on above: Performed By: #### C DP LIPRF, CP #### [place] [address] Iron Installer: Severino Jacobson MD MCH (RBC) [Entitic mass] 29.7 pg Normal 25.2-33.5 [facility] Comment on above: Performed By: #### C EKTA MIJARESRF, CP #### [address] [address] Iron Installer: Severino Jacobson MD MCHC (RBC) [Mass/Vol] 31.2 g/dL Normal 28.4-34.8 [facility] Comment on above: Performed By: #### C DYLLAN LIPRF, CP #### [address] [address] Iron Installer: Severino Jacobson MD MCV (RBC) [Entitic vol] 95.1 fL Normal 82.6-102.9 [facility] Comment on above: Performed By: #### C FANNIE MIJARES, CP #### [address] [address] Iron Installer: Severino Jacobson MD Monocytes (Bld) [#/Vol] 0.41 10*3/uL Normal 0.10-1.20 [facility] Comment on above: Performed By: #### C FANNIE MIJARES, CP #### [address] [address] Iron Installer: Severino Jacobson MD Monocytes/100 WBC (Bld) 6 % Normal 3-12 [facility] Comment on above: Performed By: #### C FANNIE MIJARES, CP #### [address] [address] Iron Installer: Severino Jacobson MD Neutrophil (Seg) 54 % Normal 36-65 [facility] Comment on above: Performed By: #### C FANNIE MIJARES, CP #### [address] [address] Iron Installer: Severino Jacobson MD NRBC Automated 0.0 per 100 WBC Normal 0.0 [facility] Comment on above: Performed By: #### C DP LIPRF, CP #### [address] [address] Iron Installer: Severino Jacobson MD Platelet mean volume (Bld) [Entitic vol] 10.7 fL Normal 8.1-13.5 [facility] Comment on above: Performed By: #### C DP LIPRF, CP #### [address] [address] Iron Installer: Severino Jacobson MD Platelets (Bld) [#/Vol] 460 10*3/uL High 138-453 [facility] Comment on above: Performed By: #### C FANNIE MIJARES, CP #### [address] [address] Iron Installer: Severino Jacobson MD RBC (Bld) [#/Vol] 3.64 10*6/uL Low 3.95-5.11 [facility] Comment on above: Performed By: #### C DYLLAN LIPRF, CP #### [address] [address] Iron Installer: Severino Jacobson MD WBC (Bld) [#/Vol] 7.2 10*3/uL Normal 3.5-11.3 [facility] Comment on above: Performed By: #### C EKTA MIJARESRF, CP #### [address] [address] Iron Installer: Severino Jacobson MD Comp Metabolic Profon 2023 Albumin [Mass/Vol] 4.4 g/dL Normal 3.5-5.2 [facility] Comment on above: Performed By: #### C DP LIPRF, CP #### [address] [address] Iron Installer: Severino Jacobson MD Albumin/Glob Ratio 2.0 Normal 1.0-2.5 [facility] Comment on above: Performed By: #### C DPFANNIE, CP #### [address] [address] Iron Installer: Severino Jacobson MD Alkaline Phos 35 U/L Normal 35-104 [facility] Comment on above: Performed By: #### C DP, LIPRF, CP #### [address] [address] Iron Installer: Severino Jacobson MD ALT [Catalytic activity/Vol] 12 U/L Normal 10-35 [facility] Comment on above: Performed By: #### C DP, LIPRF, CP #### [address] [address] Iron Installer: Severino Jacobson MD Anion gap [Moles/Vol] 9 mmol/L Normal 9-16 [facility] Comment on above: Performed By: #### C DP, LIPRF, CP #### [address] [address] Iron Installer: Severino Jacobson MD AST [Catalytic activity/Vol] 25 U/L Normal 10-35 [facility] Comment on above: Performed By: #### C DP, LIPRF, CP #### [address] [address] Iron Installer: Severino Jacobson MD Bilirubin [Mass/Vol] 0.6 mg/dL Normal 0.00-1.[address] [facility] Comment on above: Performed By: #### C DP, LIPRF, CP #### [facility] [employer] [address] [place] [address] Iron Installer: Severino Jacobson MD Calcium [Mass/Vol] 8.9 mg/dL Normal 8.6-10.4 [facility] Comment on above: Performed By: #### C DP, LIPRF, CP #### [facility] [employer] [address] [place] [address] Iron Installer: Severino Jacobson MD Chloride [Moles/Vol] 107 mmol/L Normal 98-[address] [facility] Comment on above: Performed By: #### C FANNIE MIJARES, CP #### [facility] [address] [place] [phone] Iron Installer: Severino Jacobson MD CO2 [Moles/Vol] 24 mmol/L Normal 20-31 [facility] Comment on above: Performed By: #### C FANNIE MIJARES, CP #### [facility] [address] [place] [address] Iron Installer: Severino Jacobson MD Creatinine [Mass/Vol] 0.7 mg/dL Normal 0.50-0.90 [facility] Comment on above: Performed By: #### C FANNIE MIJARES, CP #### [address] [address] Iron Installer: Severino Jacobson MD GFR/1.73 sq M.predicted among non-blacks MDRD (S/P/Bld) [Vol rate/Area] mL/min/{1.73_m2} Normal >60 [facility] Comment on above: Result Comment: These [...] #### C FANNIE MIJARES, CP #### [address] [address] Iron Installer: Severino Jacobson MD Glucose [Mass/Vol] 97 mg/dL Normal 74-99 [facility] Comment on above: Performed By: #### C FANNIE MIJARES, CP #### [address] [address] Iron Installer: Severino Jacobson MD Potassium [Moles/Vol] 4.0 mmol/L Normal 3.7-5.3 [facility] Comment on above: Performed By: #### C DP, LIPRF, CP #### [facility] [address] [place] [address] Iron Installer: Severino Jacobson MD Protein [Mass/Vol] 7.3 g/dL Normal 6.6-8.7 [facility] Comment on above: Performed By: #### C DP, LIPRF, CP #### [facility] [employer] [address] [place] [address] Iron Installer: Severino Jacobson MD Sodium [Moles/Vol] 140 mmol/L Normal 136-145 [facility] Comment on above: Performed By: #### C DP, LIPRF, CP #### [facility] [employer] [address] [place] [address] Iron Installer: Severino Jacobson MD Urea nitrogen [Mass/Vol] 12 mg/dL Normal 6-20 [facility] Comment on above: Performed By: #### C DP, LIPRF, CP #### [facility] [employer] [address] [place] [address] Iron Installer: Severino Jacobson MD Lipid Prof, Fastingon 2023 Cholesterol [Mass/Vol] 164 mg/dL Normal 0-199 [facility] Comment on above: Result Comment: Cholesterol Guidelines: <200 Desirable 200-240 Borderline >240 Undesirable Performed By: #### C DP, LIPRF, CP #### [facility] [employer] [address] [place] [address] Iron Installer: Severino Jacobson MD Cholesterol in HDL [Mass/Vol] 52 mg/dL Normal >40 [facility] Comment on above: Result Comment: HDL Guidelines: <40 Undesirable 40-59 Borderline >59 Desirable Performed By: #### C DP, LIPRF, CP #### [address] [address] Iron Installer: Severino Jacobson MD Cholesterol in LDL [Mass/Vol] 102 mg/dL High 0-100 [facility] Comment on above: Result Comment: LDL Guidelines: <100 Desirable 100-129 Near to/above Desirable 130-159 Borderline >159 Undesirable Direct (measured) LDL and calculated LDL are not interchangeable tests. Performed By: #### C DP LIPRF, CP #### [address] [address] Iron Installer: Severino Jacobson MD Cholesterol in VLDL [Mass/Vol] 10 mg/dL Normal [facility] Comment on above: Performed By: #### C DYLLAN LIPRF, CP #### [facility] [employer] [address] [place] [address] Iron Installer: Severino Jacobson MD Cholesterol.total/Chol esterol in HDL [Mass ratio] 3.0 {ratio} Normal [facility] Comment on above: Performed By: #### C DP LIPRF, CP #### [address] [address] Iron Installer: Sevreino Jacobson MD Triglyceride,Fasting 49 mg/dL Normal 0-[address] [facility] Comment on above: Result Comment: Triglyceride Guidelines: <150 Desirable 150-199 Borderline 200-499 High >499 Very high Based on AHA Guidelines for fasting triglyceride, February 2012. Performed By: #### C DP, LIPRF, CP #### [address] [address] Iron Installer: Severino Jacobson MD SARS/FLU A+B/RSV by NAAT/formerly [facility] 07-17-2023 SARS/FLU A+B/RSV by NAAT/Molecular FLU A [...] operators who are performing tests using either [employer] or [employer] systems and is limited to laboratories [...] repeat. Fact Sheet for Healthcare Providers: https://www.fda.gov/ media/463560/downloa d Fact Sheet for Patients: https://www.fda.gov/ media/637600/downloa d Normal [facility] Comment on above: Performed By: #### C OVFLR #### [facility] ([id number]) [address] [place] [address], [place] [address] QuantiFERON TBon 04-14-2023 Quanti Americo minus NIL >10.[address] [facility] Comment on above: Performed By: #### A QF #### [facility] [address] [place] [address] Iron Installer: Tai Lopez MD Quanti TB Gold Plus Negative Normal Negative [facility] Comment on above: Result Comment: (NOT [...] Mycobacterium tuberculosis Infection --- [place], 2010 (http://www.cdc.gov/mmwr/preview/mmwrhtml/cl7163g1.htm), for more information concerning test performance in low-prevalence populations and use in occupational screening. Performed By: #### A QF #### [facility] [address] [place], [place] [id number] Iron Installer: Tai Lopez MD Quanti TB1 minus NIL 0.10 IU/mL Normal 0.00-0.[address] [facility] Comment on above: Performed By: #### A QF #### [facility] [address] [place], [place] [id number] Iron Installer: Tai Lopez MD Quanti TB2 minus NIL 0.10 IU/mL Normal 0.00-0.[address] [facility] Comment on above: Performed By: #### A QF #### [facility] [address] [place], [place] [id number] Iron Installer: Tai Lopez MD QuantiFERON NIL 0.03 IU/mL Normal [facility] Comment on above: Result Comment: (NOT E) Performed By: [facility] [address] [place] [address] Guest Services: Royal Banda MD, PhD CLIA Number: [id number] Performed By: #### A QF #### [address] [id number] Iron Installer: Tai Lopez MD CBC with Diffon 04-11-2023 Abs. Basophil 0.05 k/uL Normal 0.00-0.20 [facility] Comment on above: Performed By: #### L IPRF, CDP, PHEP, CP, HIVCMB #### [place] [address] Iron Installer: Severino Jacobson MD Abs.Imm.Granulocyte 0.03 k/uL Normal 0.00-0.30 [facility] Comment on above: Performed By: #### L IPRF, CDP, PHEP, CP, HIVCMB #### [place] [address] Iron Installer: Severino Jacobson MD Abs.Neutrophil (Seg) 4.20 k/uL Normal 1.50-8.[address] [facility] Comment on above: Performed By: #### L IPRF, CDP, PHEP, CP, HIVCMB #### [place] [address] Iron Installer: Severino Jacobson MD Basophils/100 WBC (Bld) 1 % Normal 0-2 [facility] Comment on above: Performed By: #### L IPRF, CDP, PHEP, CP, HIVCMB #### [place] [address] Iron Installer: Severino Jacobson MD Eosinophils (Bld) [#/Vol] 0.36 10*3/uL Normal 0.00-0.44 [facility] [facility] Comment on above: Performed By: #### L IPRF, CDP, PHEP, CP, HIVCMB #### [address] [address] Iron Installer: Severino Jacobson MD Eosinophils/100 WBC (Bld) 5 % High 1-4 [facility] Comment on above: Performed By: #### L IPRF, CDP, PHEP, CP, HIVCMB #### [address] [address] Iron Installer: Severino Jacobson MD Erythrocyte distribution width (RBC) [Ratio] 11.6 % Low 11.8-14.4 [facility] Comment on above: Performed By: #### L IPRF, CDP, PHEP, CP, HIVCMB #### [place] [address] Iron Installer: Severino Jacobson MD Hematocrit (Bld) [Volume fraction] 34.3 % Low 36.3-47.1 [facility] Comment on above: Performed By: #### L IPRF, CDP, PHEP, CP, HIVCMB #### [address] [address] Iron Installer: Severino Jacobson MD Hemoglobin (Bld) [Mass/Vol] 10.9 g/dL Low 11.9-15.1 [facility] Comment on above: Performed By: #### L IPRF, CDP, PHEP, CP, HIVCMB #### [address] [address] Iron Installer: Severino Jacobson MD Immature granulocytes/100 WBC (Bld) 0 % Normal 0 [facility] Comment on above: Performed By: #### L IPRF, CDP, PHEP, CP, HIVCMB #### [address] [address] Iron Installer: Severino Jacobson MD Lymphocytes (Bld) [#/Vol] 2.55 10*3/uL Normal 1.10-3.70 [facility] Comment on above: Performed By: #### L IPRF, CDP, PHEP, CP, HIVCMB #### [address] [address] Iron Installer: Severino Jacobson MD Lymphocytes/100 WBC (Bld) 33 % Normal 24-43 [facility] Comment on above: Performed By: #### L IPRF, CDP, PHEP, CP, HIVCMB #### [place] [address] Iron Installer: Severino Jacobson MD MCH (RBC) [Entitic mass] 30.1 pg Normal 25.2-33.5 [facility] Comment on above: Performed By: #### L IPRF, CDP, PHEP, CP, HIVCMB #### [place] [address] Iron Installer: Severino Jacobson MD MCHC (RBC) [Mass/Vol] 31.8 g/dL Normal 28.4-34.8 [facility] Comment on above: Performed By: #### L IPRF, CDP, PHEP, CP, HIVCMB #### [place] [address] Iron Installer: Severino Jacobson MD MCV (RBC) [Entitic vol] 94.8 fL Normal 82.6-102.9 [facility] Comment on above: Performed By: #### L IPRF, CDP, PHEP, CP, HIVCMB #### [address] [address] Iron Installer: Severino Jacobson MD Monocytes (Bld) [#/Vol] 0.55 10*3/uL Normal 0.10-1.20 [facility] Comment on above: Performed By: #### L IPRF, CDP, PHEP, CP, HIVCMB #### [address] [address] Iron Installer: Severino Jacobson MD Monocytes/100 WBC (Bld) 7 % Normal 3-12 [facility] Comment on above: Performed By: #### L IPRF, CDP, PHEP, CP, HIVCMB #### [address] [address] Iron Installer: Severino Jacobson MD Neutrophil (Seg) 54 % Normal 36-65 [facility] Comment on above: Performed By: #### L IPRF, CDP, PHEP, CP, HIVCMB #### [address] [address] Iron Installer: Severino Jacobson MD NRBC Automated 0.0 per 100 WBC Normal 0.0 [facility] Comment on above: Performed By: #### L IPRF, CDP, PHEP, CP, HIVCMB #### [address] [address] Iron Installer: Severino Jacobson MD Platelet mean volume (Bld) [Entitic vol] 11.0 fL Normal 8.1-13.5 [facility] Comment on above: Performed By: #### L IPRF, CDP, PHEP, CP, HIVCMB #### [address] [address] Iron Installer: Severino Jacobson MD Platelets (Bld) [#/Vol] 382 10*3/uL Normal 138-453 [facility] Comment on above: Performed By: #### L IPRF, CDP, PHEP, CP, HIVCMB #### [address] [address] Iron Installer: Severino Jacobson MD RBC (Bld) [#/Vol] 3.62 10*6/uL Low 3.95-5.11 [facility] Comment on above: Performed By: #### L IPRF, CDP, PHEP, CP, HIVCMB #### [facility] [employer] [address] [place] [address] Iron Installer: Severino Jacobson MD WBC (Bld) [#/Vol] 7.7 10*3/uL Normal 3.5-11.3 [facility] Comment on above: Performed By: #### L IPRF, CDP, PHEP, CP, HIVCMB #### [address] [address] Iron Installer: Severino Jacobson MD Comp Metabolic Profon 2022 Albumin [Mass/Vol] 4.4 g/dL Normal 3.5-5.2 [facility] Comment on above: Performed By: #### L IPRF, CDP, PHEP, CP, HIVCMB #### [facility] [employer] [address] [place] [address] Iron Installer: Severino Jacobson MD Albumin/Glob Ratio 2.0 Normal 1.0-2.5 [facility] Comment on above: Performed By: #### L IPRF, CDP, PHEP, CP, HIVCMB #### [facility] [employer] [address] [place] [address] Iron Installer: Severino Jacobson MD Alkaline Phos 39 U/L Normal 35-104 [facility] Comment on above: Performed By: #### L IPRF, CDP, PHEP, CP, HIVCMB #### [facility] [employer] [address] [place] [address] Iron Installer: Severino Jacobson MD ALT [Catalytic activity/Vol] 10 U/L Normal 10-35 [facility] Comment on above: Performed By: #### L IPRF, CDP, PHEP, CP, HIVCMB #### [facility] [employer] [address] [place] [address] Iron Installer: Severino Jacobson MD Anion gap [Moles/Vol] 9 mmol/L Normal 9-16 [facility] Comment on above: Performed By: #### L IPRF, CDP, PHEP, CP, HIVCMB #### [address] [address] Iron Installer: Severino Jacobson MD AST [Catalytic activity/Vol] 22 U/L Normal 10-35 [facility] Comment on above: Performed By: #### L IPRF, CDP, PHEP, CP, HIVCMB #### [address] [address] Iron Installer: Severino Jacobson MD Bilirubin [Mass/Vol] 0.3 mg/dL Normal 0.00-1.[address] [facility] Comment on above: Performed By: #### L IPRF, CDP, PHEP, CP, HIVCMB #### [address] [address] Iron Installer: Severino Jacobson MD Calcium [Mass/Vol] 9.3 mg/dL Normal 8.6-10.4 [facility] Comment on above: Performed By: #### L IPRF, CDP, PHEP, CP, HIVCMB #### [address] [address] Iron Installer: Severino Jacobson MD Chloride [Moles/Vol] 104 mmol/L Normal 98-[address] [facility] Comment on above: Performed By: #### L IPRF, CDP, PHEP, CP, HIVCMB #### [address] [address] Iron Installer: Severino Jacobson MD CO2 [Moles/Vol] 27 mmol/L Normal 20-31 [facility] Comment on above: Performed By: #### L IPRF, CDP, PHEP, CP, HIVCMB #### [facility] [employer] [address] [place] [address] Iron Installer: Severino Jacobson MD Creatinine [Mass/Vol] 0.7 mg/dL Normal 0.50-0.90 [facility] Comment on above: Performed By: #### L IPRF, CDP, PHEP, CP, HIVCMB #### [address] [address] Iron Installer: Severino Jacobson MD GFR/1.73 sq M.predicted among non-blacks MDRD (S/P/Bld) [Vol rate/Area] mL/min/{1.73_m2} Normal >60 [facility] Comment on above: Result Comment: These [...] IPRF, CDP, PHEP, CP, HIVCMB #### [address] [address] Iron Installer: Severino Jacobson MD Glucose [Mass/Vol] 82 mg/dL Normal 74-99 [facility] Comment on above: Performed By: #### L IPRF, CDP, PHEP, CP, HIVCMB #### [facility] [employer] [address] [place] [address] Iron Installer: Severino Jacobson MD Potassium [Moles/Vol] 3.8 mmol/L Normal 3.7-5.3 [facility] Comment on above: Performed By: #### L IPRF, CDP, PHEP, CP, HIVCMB #### [facility] [employer] [address] [place] [phone] Iron Installer: Severino Jacobson MD Protein [Mass/Vol] 7.2 g/dL Normal 6.6-8.7 [facility] Comment on above: Performed By: #### L IPRF, CDP, PHEP, CP, HIVCMB #### [employer] [address] [place] [address] Iron Installer: Severino Jacobson MD Sodium [Moles/Vol] 140 mmol/L Normal 136-145 [facility] Comment on above: Performed By: #### L IPRF, CDP, PHEP, CP, HIVCMB #### [facility] [employer] [address] [place] [address] Iron Installer: Severino Jacobson MD Urea nitrogen [Mass/Vol] 14 mg/dL Normal 6-20 [facility] Comment on above: Performed By: #### L IPRF, CDP, PHEP, CP, HIVCMB #### [facility] [employer] [address] [place] [address] Iron Installer: Severino Jacobson MD HIV Ag/Abon 04-11-2023 HIV Ag/Ab Non-Reactive Normal NR [facility] Comment on above: Result Comment: No l aboratory evidence of HIV infection. If acute HIV infection is suspected, consider testing for HIV-1 RNA. Performed By: #### C DP, LIPRF, CP #### [facility] [employer] [address] [place] [address] Iron Installer: Severino Jacobson MD Hepatitis Acute [facility] 04-11 Hep A Ab,IgM Non-Reactive Normal NR [facility] Comment on above: Performed By: #### L IPRF, CDP, PHEP, CP, HIVCMB #### [employer] [address] [place] [address] Iron Installer: Severino Jacobson MD Hep B Core Ab,IgM Non-Reactive Normal NR [facility] Comment on above: Performed By: #### L IPRF, CDP, PHEP, CP, HIVCMB #### [employer] [address] [place] [address] Iron Installer: Severino Jacobson MD Hep B Surf Ag Non-Reactive Normal NR [facility] Comment on above: Performed By: #### L IPRF, CDP, PHEP, CP, HIVCMB #### [address] [address] Iron Installer: Severino Jacobson MD Hep C Ab Non-Reactive Normal NR [facility] Comment on above: Result Comment: The [...] L IPRF, CDP, PHEP, CP, HIVCMB #### [facility] [employer] [address] [place] [address] Iron Installer: Severino Jacobson MD Lipid Prof, Fastingon 2022 Cholesterol [Mass/Vol] 155 mg/dL Normal 0-199 [facility] Comment on above: Result Comment: Cholesterol Guidelines: <200 Desirable 200-240 Borderline >240 Undesirable Performed By: #### C FANNIE MIJARES, CP #### [address] [id number] Iron Installer: Severino Jacobson MD Cholesterol in HDL [Mass/Vol] 49 mg/dL Normal >40 [facility] Comment on above: Result Comment: HDL Guidelines: <40 Undesirable 40-59 Borderline >59 Desirable Performed By: #### C FANNIE MIJARES, CP #### [address] [address] Iron Installer: Severino Jacobson MD Cholesterol in LDL [Mass/Vol] 98 mg/dL Normal 0-100 [facility] Comment on above: Result Comment: LDL Guidelines: <100 Desirable 100-129 Near to/above Desirable 130-159 Borderline >159 Undesirable Direct (measured) LDL and calculated LDL are not interchangeable tests. Performed By: #### C FANNIE MIJARES, CP #### [address] [address] Iron Installer: Severino Jacobson MD Cholesterol in VLDL [Mass/Vol] 8 mg/dL Normal [facility] Comment on above: Performed By: #### C FANNIE MIJARES, CP #### [facility] [employer] [address] [place] [address] Iron Installer: Severino Jacobson MD Cholesterol.total/Chol esterol in HDL [Mass ratio] 3.0 {ratio} Normal [facility] Comment on above: Performed By: #### C FANNIE MIJARES, CP #### [address] [address] Iron Installer: Severino Jacobson MD Triglyceride,Fasting 38 mg/dL Normal 0-[address] [facility] Comment on above: Result Comment: Triglyceride Guidelines: <150 Desirable 150-199 Borderline 200-499 High >499 Very high Based on AHA Guidelines for fasting triglyceride, February 2012. Performed By: #### C FANNIE MIJARES, CP #### [address] [address] Iron Installer: Severino Jacobson MD [facility] 03-10-2023 SURGICAL [facility] [id number] Assoc. Page 1 of 1 [address] [place] [address] PROC: 03/10/2023 [place] RECV: 03/13/[address] RPTD: 03/21/2023 [place] [address] LOC: [facility] ACCT: SEX: F [id number] AGE: 32 Y : 1990 PATHOLOGY REPORT ATTN: BERNIE PULIDO PA-C REQ: BERNIE PULIDO PA-C Clinical Information: ALOPECIA FINAL DIAGNOSIS: Skin, right scalp, biopsy: No evidence of an active inflammatory alopecia. Increased follicular michael and catagen/telogen follicles. Please see microscopic description. Specimen: SKIN BIOPSY, SCALP RIGHT Gross Examination: The container is labeled Homero Leija scalp, right. Received in formalin is [...] on sections examined. Clinical correlation is recommended. [id number] AILEEN DE LA PAZ M.D., F.C.A.P [facility]/ [facility] Printed on: 03/21/[address] [place] [address] Original print date: 03/21/2023 Normal [facility] US PREG ANATOMY SINGLEon US PREG ANATOMY [...] by: VINICIUS GARCIA Date: 2021-08-06 21:37 Normal [facility] CULTURE URINEon 04-25-2021 CULTURE URINE Isolate 1 [...] F Trimethoprim/Sulfame thoxazole <=20 S F Normal [facility] Comment on above: Performed By: #### U RCX ####[facility] [id number] [place], [place] [address]CtDr. Purvi Smith HEP B SURFACE ANTIGEN SCREEN on 04-24-2021 HBsAg Screen Negative Normal Negative [facility] Comment on above: Performed By: #### H BSANS #### [facility] [address] [address] [address] Purvi Smith HIV 1 AND 2 WITH REFLEXon HIV Screen 4th Generation wRfx Non-Reactive Normal Non Reactive [facility] Comment on above: Performed By: #### H IV12 ####[facility] [id number] [address]Dr. Purvi Smith RPR QUANTon 04-24-2021 Rapid Plasma Reagin, Quant Non-Reactive Normal NonRea<1:1 [facility] Comment on above: Performed By: #### R PRQ #### [facility] [address] [place] [address] Dr. Purvi Smith RUBELLA AB IGGon 04-24-2021 Rubella Antibodies, IgG 1.35 index Normal Immune >0.99 [facility] Comment on above: Result Comment: Non- immune <0.90 Equivocal 0.90 - 0.99 Immune >0.99 Performed By: #### R UBIGG #### [facility] [address] [place] [address] Dr. Purvi Smith CBC AUTO DIFFon 04-23-2021 BASO # 0.0 103/ul Normal 0.0-0.1 [facility] Comment on above: Performed By: #### C BC #### [facility] [address] [place] [address] Dr. Purvi Smith Basophils/100 WBC (Bld) 0.3 % Normal 0.2-2.0 [facility] Comment on above: Performed By: #### C BC #### [facility] [address] [place] [address] Dr. Purvi Smith EO # 0.2 103/ul Normal 0.0-0.7 [facility] Comment on above: Performed By: #### C BC #### [facility] [address] [place] [address] Dr. Purvi Smith Eosinophils/100 WBC (Bld) 2.1 % Normal 0.9-7.0 [facility] Comment on above: Performed By: #### C BC #### [facility] [address] [place] [address] Dr. Purvi Smith Erythrocyte distribution width (RBC) [Ratio] 12.1 % Normal 11.0-15.0 [facility] Comment on above: Performed By: #### C BC #### [facility] [address] [place] [address] Dr. Purvi Smith Hematocrit (Bld) [Volume fraction] 32.3 % Critically low 36.0-48.0 [facility] Comment on above: Performed By: #### C BC #### [facility] [address] [place] [address] Dr. Purvi Smith Hemoglobin (Bld) [Mass/Vol] 10.6 g/dL Critically low 12.0-16.0 [facility] Comment on above: Performed By: #### C BC #### [facility] [address] [place] [address] Dr. Purvi Smith IG # 0.04 10e3/ul Critically high 0.00-0.03 [facility] Comment on above: Performed By: #### C BC #### [facility] [address] [place] [address] Dr. Purvi Smith IG % 0.3 % Normal 0.0-0.5 [facility] Comment on above: Performed By: #### C BC #### [facility] [address] [place] [address] Dr. Purvi Smith LYMPH # 2.1 103/ul Normal 1.2-3.8 [facility] Comment on above: Performed By: #### C BC #### [facility] [address] [place] [address] Dr. Purvi Smith Lymphocytes/100 WBC (Bld) 17.9 % Critically low 20.5-60.0 [facility] Comment on above: Performed By: #### C BC #### [facility] [address] [place] [address] Dr. Purvi Smith MANUAL DIFF REQ NO Normal [facility] Comment on above: Performed By: #### C BC #### [facility] [address] [place] [address] Dr. Purvi Smith MCH (RBC) [Entitic mass] 30.2 pg Normal 26.7-34.0 [facility] Comment on above: Performed By: #### C BC #### [facility] [address] [place] [address] Dr. Purvi Smith MCHC (RBC) [Mass/Vol] 32.8 g/dL Normal 29.9-35.2 [facility] Comment on above: Performed By: #### C BC #### [facility] [address] [place] [address] Dr. Purvi Smith MCV (RBC) [Entitic vol] 92.0 fL Normal 81.0-99.0 [facility] Comment on above: Performed By: #### C BC #### [facility] [address] [place] [address] Dr. Purvi Smith MONO # 0.8 103/ul Normal 0.3-0.8 [facility] Comment on above: Performed By: #### C BC #### [facility] [address] [place] [address] Dr. Purvi Smith Monocytes/100 WBC (Bld) 6.6 % Normal 1.7-12.0 [facility] Comment on above: Performed By: #### C BC #### [facility] [address] [place] [address] Dr. Purvi Smith NEUT # 8.5 103/ul Critically high 1.4-6.5 [facility] Comment on above: Performed By: #### C BC #### [facility] [address] [place] [address] Dr. Purvi Smith Neutrophils/100 WBC (Bld) 72.8 % Normal 43.0-75.0 [facility] Comment on above: Performed By: #### C BC #### [facility] [address] [place] [address] Dr. Purvi Smith Platelet mean volume (Bld) [Entitic vol] 10.0 fL Normal 9.5-13.5 [facility] Comment on above: Performed By: #### C BC #### [facility] [address] [place] [address] Dr. Purvi Smith PLT 361 103/ul Normal 150-450 [facility] Comment on above: Performed By: #### C BC #### [facility] [address] [address] [address] Purvi Smith RBC 3.51 106/ul Critically low 4.20-5.40 [facility] Comment on above: Performed By: #### C BC #### [facility] [address] [address] [address] Purvi Smith WBC 11.7 103/ul Critically high 4.0-11.0 [facility] Comment on above: Performed By: #### C BC #### [facility] [address] [address] [address] Purvi Smith GLYCOHEMOGLOBIN A1Con 2020 ADA RECOMMENDATION ADA THERAPEUTIC TARGET 6.0 - 7.0 ACTION SUGGESTED > 7.0 Normal [facility] Comment on above: Performed By: #### A 1C #### [facility] [address] [address] [address] Purvi Smith Glucose [Mass/Vol] 88 mg/dL Normal [facility] Comment on above: Performed By: #### A 1C #### [facility] [address] [address] [address] Purvi Smith HbA1c (Bld) [Mass fraction] 4.7 % Normal <=6.0 [facility] Comment on above: Performed By: #### A 1C #### [facility] [address] [address] [address] Purvi Smith GASTON BOX TEST PT SEND OUTo n 04-23-2021 SENT TO REF LAB 04/23/2021 Normal [facility] Comment on above: Performed By: #### N BOX #### [facility] [address] [address] [address] Purvi Smith TYPE AND SCREENon 04-23-2021 TYPE AND SCREEN Negative Normal [facility] Comment on above: Performed By: #### T NS #### [facility] [address] [address] [address] Purvi Smith US PREG TVon 11-05-2021 US PREG TV EXAMINATION: US PREG TV [...] VINICIUS GARCIA Date: 2021-03-30 10:06 Normal [facility] CBC AUTO DIFFon 03-16-2021 BASO # 0.0 103/ul Normal 0.0-0.1 [facility] Comment on above: Performed By: #### C BC #### [facility] [address] [place] [address] Dr. Purvi Smith Basophils/100 WBC (Bld) 0.3 % Normal 0.2-2.0 [facility] Comment on above: Performed By: #### C BC #### [facility] [address] [place] [address] Dr. Purvi Smith EO # 0.2 103/ul Normal 0.0-0.7 [facility] Comment on above: Performed By: #### C BC #### [facility] [address] [place] [address] Dr. Purvi Smith Eosinophils/100 WBC (Bld) 1.9 % Normal 0.9-7.0 [facility] Comment on above: Performed By: #### C BC #### [facility] [address] [place] [address] Dr. Purvi Smith Erythrocyte distribution width (RBC) [Ratio] 11.9 % Normal 11.0-15.0 [facility] Comment on above: Performed By: #### C BC #### [facility] [address] [place] [address] Dr. Purvi Smith Hematocrit (Bld) [Volume fraction] 31.5 % Critically low 36.0-48.0 [facility] Comment on above: Performed By: #### C BC #### [facility] [address] [place] [address] Dr. Purvi Smith Hemoglobin (Bld) [Mass/Vol] 10.3 g/dL Critically low 12.0-16.0 [facility] Comment on above: Performed By: #### C BC #### [facility] [address] [place] [address] Dr. Purvi Smith IG # 0.04 10e3/ul Critically high 0.00-0.03 [facility] Comment on above: Performed By: #### C BC #### [facility] [address] [place] [address] Dr. Purvi Smith IG % 0.4 % Normal 0.0-0.5 [facility] Comment on above: Performed By: #### C BC #### [facility] [address] [place] [address] Dr. Purvi Smith LYMPH # 2.3 103/ul Normal 1.2-3.8 [facility] Comment on above: Performed By: #### C BC #### [facility] [address] [place] [address] Dr. Purvi Smith Lymphocytes/100 WBC (Bld) 21.5 % Normal 20.5-60.0 [facility] Comment on above: Performed By: #### C BC #### [facility] [address] [place] [address] Dr. Purvi Smith MANUAL DIFF REQ NO Normal [facility] Comment on above: Performed By: #### C BC #### [facility] [address] [place] [address] Dr. Purvi Smith MCH (RBC) [Entitic mass] 30.2 pg Normal 26.7-34.0 [facility] Comment on above: Performed By: #### C BC #### [facility] [address] [place] [address] Dr. Purvi Smith MCHC (RBC) [Mass/Vol] 32.7 g/dL Normal 29.9-35.2 [facility] Comment on above: Performed By: #### C BC #### [facility] [address] [address] [address] Purvi Smith MCV (RBC) [Entitic vol] 92.4 fL Normal 81.0-99.0 [facility] Comment on above: Performed By: #### C BC #### [facility] [address] [address] [address] Purvi Smith MONO # 0.9 103/ul Critically high 0.3-0.8 [facility] Comment on above: Performed By: #### C BC #### [facility] [address] [address] [address] Purvi Smith Monocytes/100 WBC (Bld) 8.4 % Normal 1.7-12.0 [facility] Comment on above: Performed By: #### C BC #### [facility] [address] [address] [address] Purvi Smith NEUT # 7.3 103/ul Critically high 1.4-6.5 [facility] Comment on above: Performed By: #### C BC #### [facility] [address] [address] [address] Purvi Smith Neutrophils/100 WBC (Bld) 67.5 % Normal 43.0-75.0 [facility] Comment on above: Performed By: #### C BC #### [facility] [address] [address] [address] Purvi Smith Platelet mean volume (Bld) [Entitic vol] 10.4 fL Normal 9.5-13.5 [facility] Comment on above: Performed By: #### C BC #### [facility] [address] [address] [address] Purvi Smith PLT 362 103/ul Normal 150-450 [facility] Comment on above: Performed By: #### C BC #### [facility] [address] [address] [address] Purvi Smith RBC 3.41 106/ul Critically low 4.20-5.40 [facility] Comment on above: Performed By: #### C BC #### [facility] [address] [address] [address] Purvi Smith WBC 10.8 103/ul Normal 4.0-11.0 [facility] Comment on above: Performed By: #### C BC #### [facility] [address] [address] [address] Purvi Smith PROF CHEM 8 (BAS METB)on Anion gap [Moles/Vol] 10.6 mmol/L Normal [facility] Comment on above: Performed By: #### B MP #### [facility] [address] [address] [address] Purvi Smith Calcium [Mass/Vol] 9.2 mg/dL Normal 8.4-10.2 [facility] Comment on above: Performed By: #### B MP #### [facility] [address] [address] [address] Purvi Smith Chloride [Moles/Vol] 103 mmol/L Normal 98-107 [facility] Comment on above: Performed By: #### B MP #### [facility] [address] [address] [address] Purvi Smith CO2 [Moles/Vol] 25.5 mmol/L Normal 22.0-30.0 [facility] Comment on above: Performed By: #### B MP #### [facility] [address] [address] [address] Purvi Smith Creatinine [Mass/Vol] 0.61 mg/dL Normal 0.52-1.04 [facility] Comment on above: Performed By: #### B MP #### [facility] [address] [address] [address] Purvi Smith EGFR-AF PUERTO RICAN >60 Normal >=60 [facility] Comment on above: Performed By: #### B MP #### [facility] [address] [address] [address] Purvi Smith EGFR-NON AF PUERTO RICAN >60 Normal >=60 [facility] Comment on above: Performed By: #### B MP #### [facility] [address] [address] [address] Purvi Smith Glucose [Mass/Vol] 80 mg/dL Normal 74-106 [facility] Comment on above: Performed By: #### B MP #### [facility] [address] [address] [address] Purvi Smith Potassium [Moles/Vol] 3.1 mmol/L Critically low 3.4-5.0 [facility] Comment on above: Performed By: #### B MP #### [facility] [address] [address] [address] Purvi Smith Sodium [Moles/Vol] 136 mmol/L Critically low 137-145 Th [facility] Comment on above: Performed By: #### B MP #### [facility] [address] [address] [address] Purvi Smith Urea nitrogen [Mass/Vol] 11.0 mg/dL Normal 7.0-17.0 [facility] Comment on above: Performed By: #### B MP #### [facility] [address] [address] [address] Purvi Smith Urea nitrogen/Creatinine [Mass ratio] 18.0 mg/mg Normal [facility] Comment on above: Performed By: #### B MP #### [facility] [address] [address] [address] Purvi Smith Vital Signs Date Time Vital Sign Value Performing Clinician Facility 06-23-2024 10:56-0500 Body mass index (BMI) [Ratio] 28.32 kg/m2 Sophia KYLE Work Phone: [facility] 06-23-2024 10:56-0500 Body weight 74.84 kg Sophia KYLE Work Phone: [facility] 06-23-2024 10:56-0500 Diastolic blood pressure 80 mm[Hg] Sophia KYLE Work Phone: [facility] 06-23-2024 10:56-0500 Systolic blood pressure 128 mm[Hg] Sophia KYLE Work Phone: [facility] 06-09-2024 11:35-0500 Body mass index (BMI) [Ratio] 28.69 kg/m2 Shakir Steph DO Work Phone: [facility] 06-09-2024 11:35-0500 Body weight 75.81 kg Shakir Steph DO Work Phone: [facility] 06-09-2024 11:35-0500 Diastolic blood pressure 74 mm[Hg] Shakir Steph DO Work Phone: [facility] 06-09-2024 11:35-0500 Systolic blood pressure 114 mm[Hg] Shakir Steph DO Work Phone: [facility] 05-24-2024 13:21-0500 Body mass index (BMI) [Ratio] 28.63 kg/m2 Sophia KYLE Work Phone: [facility] 05-24-2024 13:21-0500 Body weight 75.66 kg Sophia KYLE Work Phone: [facility] 05-24-2024 13:21-0500 Diastolic blood pressure 80 mm[Hg] Sophia Iraj PA Work Phone: [facility] 05-24-2024 13:21-0500 Systolic blood pressure 116 mm[Hg] Sophia Iraj KYLE Work Phone: [facility] 05-10-2024 13:14-0500 Body mass index (BMI) [Ratio] 28.32 kg/m2 Shakir Steph DO Work Phone: [facility] 05-10-2024 13:14-0500 Body weight 74.84 kg Shakir Steph DO Work Phone: [facility] 05-10-2024 13:14-0500 Diastolic blood pressure 66 mm[Hg] Shakir Steph DO Work Phone: [facility] 05-10-2024 13:14-0500 Systolic blood pressure 106 mm[Hg] Shakir Steph DO Work Phone: [facility] 05-05-2024 10:30-0500 Body height 162.6 cm Ifrah Díaz MD Work Phone: [facility] 05-05-2024 10:30-0500 Body mass index (BMI) [Ratio] 28.21 kg/m2 Ifrah Díaz MD Work Phone: [facility] 05-05-2024 10:30-0500 Body weight 74.57 kg Ifrah Díaz MD Work Phone: [facility] 05-05-2024 10:30-0500 Diastolic blood pressure 68 mm[Hg] Ifrah Díaz MD Work Phone: [facility] 05-05-2024 10:30-0500 Heart rate 90 /min Ifrah Díaz MD Work Phone: [facility] 05-05-2024 10:30-0500 Systolic blood pressure 120 mm[Hg] Ifrah Díaz MD Work Phone: [facility] 04-12-2024 13:58-0500 Body mass index (BMI) [Ratio] 28.63 kg/m2 Sophia KYLE Work Phone: [facility] 04-12-2024 13:58-0500 Body weight 75.66 kg Sophia Galo PA Work Phone: [facility] 04-12-2024 13:58-0500 Diastolic blood pressure 70 mm[Hg] Sophia Galo PA Work Phone: [facility] 04-12-2024 13:58-0500 Systolic blood pressure 120 mm[Hg] Sophia Galo PA Work Phone: [facility] 03-15-2024 10:53-0400 Body mass index (BMI) [Ratio] 27.77 kg/m2 Shakir Steph DO Work Phone: [facility] 03-15-2024 10:53-0400 Body weight 73.39 kg Shakir Steph DO Work Phone: [facility] 03-15-2024 10:53-0400 Diastolic blood pressure 72 mm[Hg] Shakir Steph DO Work Phone: [facility] 03-15-2024 10:53-0400 Systolic blood pressure 110 mm[Hg] Shakir Steph DO Work Phone: [facility] 02-06-2024 15:11-0400 Diastolic blood pressure 63 mm[Hg] Stv 11 [facility] [employer] 02-06-2024 15:11-0400 Heart rate 89 /min Stv 11 [facility] [employer] 02-06-2024 15:11-0400 Systolic blood pressure 97 mm[Hg] Stv 11 [facility] [employer] 02-06-2024 14:22-0400 Respiratory rate 16 /min Stv 11 [facility] [employer] 01-29-2024 11:52-0400 Body mass index (BMI) [Ratio] 27.64 kg/m2 Shakir Steph DO Work Phone: [facility] 01-29-2024 11:52-0400 Body weight 73.03 kg Shakir Steph DO Work Phone: [facility] 01-29-2024 11:52-0400 Diastolic blood pressure 74 mm[Hg] Shakir Steph DO Work Phone: [facility] 01-29-2024 11:52-0400 Systolic blood pressure 112 mm[Hg] Shakir Steph DO Work Phone: [facility] Encounters Encounter Date Encounter Type Care Provider Facility Start: 07-11-2024 End: 07-11-2024 Clinisync Result Encounter Shakir Steph DO Work Phone: [facility] External Department Unsolicited Start: 07-11-2024 End: 07-11-2024 Clinisync Result Encounter Shakir Steph DO Work Phone: [facility] External Department Unsolicited Start: 07-09-2024 End: 07-09-2024 Clinisync Result Encounter Sophia KYLE Work Phone: [facility] External Department Unsolicited Start: 07-09-2024 End: 07-09-2024 Clinisync Result Encounter Sophia KYLE Work Phone: [facility] External Department Unsolicited Start: 07-08-2024 End: 07-08-2024 ambulatory SHAKIR STEPH Not Available Start: 07-08-2024 End: 07-08-2024 Bamboo flowsheet Shakir Steph DO Work Phone: [facility] Start: 07-08-2024 End: 07-13-2024 Bamboo flowsheet Shakir Steph DO Work Phone: [facility] Start: 07-08-2024 End: 07-13-2024 Clinisync Result Encounter Shakir Steph DO Work Phone: [facility] External Department Unsolicited Start: 06-23-2024 End: 06-23-2024 Bamboo flowsheet Sophia KYLE Work Phone: [facility] Start: 06-23-2024 End: 06-23-2024 Bamboo flowsheet Sophia KYLE Work Phone: [facility] Start: 06-23-2024 End: 06-23-2024 Clinisync Result Encounter Shakir Steph DO Work Phone: [facility] External Department Unsolicited Start: 06-23-2024 End: 06-23-2024 Office outpatient visit 15 minutes Sophia KYLE Work Phone: [facility] Comment on above: Third trimester preg yenny; 33 weeks gestation of ; Urinary tract infection with hematuria, site unspecified Start: 06-23-2024 End: 06-23-2024 ambulatory SOPHIA GALO Not Available Start: 06-22-2024 End: 06-22-2024 ambulatory VINICIUS QUINTANA [facility] Start: 06-09-2024 End: 06-09-2024 Bamboo flowsheet Shakir Steph DO Work Phone: [facility] Start: 06-09-2024 End: 06-09-2024 Bamboo flowsheet Shakir Steph DO Work Phone: [facility] Start: 06-09-2024 End: 06-09-2024 ambulatory SHAKIR STEPH Not Available Start: 06-09-2024 End: 06-09-2024 Office outpatient visit 15 minutes Shakir Steph DO Work Phone: [facility] Comment on above: 31 weeks gestation o f ; Second trimester ; Right club foot; Premature uterine contractions, antepartum Start: 06-03-2024 End: 06-03-2024 ambulatory [facility] Start: 05-24-2024 End: 05-24-2024 Bamboo flowsheet Sophia KYLE Work Phone: [facility] Start: 05-24-2024 End: 05-24-2024 Bamboo flowsheet Sophia KYLE Work Phone: [facility] Start: 05-24-2024 End: 05-24-2024 Office outpatient visit 15 minutes Sophia KYLE Work Phone: [facility] Comment on above: 29 weeks gestation o f ; Third trimester ; SGA (small for gestational age) Start: 05-24-2024 End: 05-24-2024 ambulatory SOPHIA GALO Not Available Start: 05-13-2024 End: 05-13-2024 ambulatory [facility] Start: 05-10-2024 End: 05-10-2024 Bamboo flowsheet Shakir Steph DO Work Phone: [facility] Start: 05-10-2024 End: 05-11-2024 Bamboo flowsheet Shakir Steph DO Work Phone: [facility] Start: 05-10-2024 End: 05-11-2024 External Result Encounter Shakir Steph DO Work Phone: [facility] External Department Unsolicited Start: 05-10-2024 End: 05-10-2024 Office outpatient visit 15 minutes Shakir Steph DO Work Phone: [facility] Comment on above: 27 weeks gestation o f ; Second trimester ; Urinary tract infection without hematuria, site unspecified Start: 05-10-2024 End: 05-10-2024 ambulatory SHAKIR NAQVIO Not Available Start: 05-05-2024 End: 05-05-2024 Office outpatient new 45 minutes Ifrah Díaz MD Work Phone: [facility] Comment on above: Club foot of fetus a ffecting antepartum care of mother, other fetus (Primary Dx); Placenta previa in second trimester; Suspected problem with placenta not found; History of delivery, currently ; History of drug overdose; History of placental abruption; Anxiety and depression; 26 weeks gestation of Start: 05-05-2024 End: 05-05-2024 ambulatory SHAKIRSushma NAQVIO [facility] Comment on above: Club foot of fetus a ffecting antepartum care of mother, other fetus (Primary Dx); Placenta previa in second trimester; Suspected problem with placenta not found; History of delivery, currently ; History of drug overdose Start: 04-12-2024 End: 04-12-2024 Bamboo flowsheet Sophia KYLE Work Phone: [facility] Start: 04-12-2024 End: 04-12-2024 Bamboo flowsheet Sophia KYLE Work Phone: [facility] Start: 04-12-2024 End: 04-12-2024 Office outpatient visit 15 minutes Sophia KYLE Work Phone: [facility] Comment on above: Bacterial vaginosis (Primary Dx); 23 weeks gestation of ; Second trimester ; Diabetes mellitus screening Start: 04-12-2024 End: 04-12-2024 ambulatory SOPHIA GALO Not Available Start: 04-09-2024 End: 04-09-2024 ambulatory VINICIUS QUINTANA [facility] Start: 04-06-2024 End: 04-06-2024 Clinisync Result Encounter Shakir Steph DO Work Phone: [facility] External Department Unsolicited Start: 04-06-2024 End: 04-06-2024 Clinisync Result Encounter Shakir Steph DO Work Phone: [facility] External Department Unsolicited Start: 03-15-2024 End: 03-15-2024 Bamboo flowsheet Shakir Steph DO Work Phone: [facility] Start: 03-15-2024 End: 03-15-2024 Bamboo flowsheet Shakir Steph DO Work Phone: [facility] Start: 03-15-2024 End: 03-15-2024 Office outpatient visit 15 minutes Shakir Steph DO Work Phone: [facility] Comment on above: Second trimester pre gnancy; 17 weeks gestation of ; UTI symptoms Start: 03-15-2024 End: 03-15-2024 ambulatory SHAKIR STEPH Not Available Start: 02-26-2024 End: 02-26-2024 Emergency department patient visit [facility] Start: 02-06-2024 End: 02-06-2024 ambulatory [facility] Start: 02-06-2024 End: 02-06-2024 Subsequent hospital visit by physician Clarita Burt Med Onc Chair 11 [facility] Comment on above: Iron deficiency anem ia, unspecified iron deficiency anemia type (Primary Dx) Start: 01-30-2024 End: 01-30-2024 ambulatory [facility] Start: 01-29-2024 End: 01-29-2024 Bamboo flowsheet Shakir Steph DO Work Phone: [facility] Start: 01-29-2024 End: 01-31-2024 Bamboo flowsheet Shakir Steph DO Work Phone: [facility] Start: 01-29-2024 End: 01-31-2024 External Result Encounter Shakir Steph DO Work Phone: [facility] External Department Unsolicited Start: 01-29-2024 End: [...] 01-17-2024 End: 01-17-2024 Clinisync Result Encounter Shakir hCoi DO Work Phone: [facility] External Department Unsolicited Start: 01-01-2024 End: 01-01-2024 ambulatory SOPHIA GALO Not Available Start: 12-20-2023 End: 12-20-2023 Emergency department patient visit [facility] Start: 12-05-2023 End: 12-05-2023 [facility] Start[facility] 11-24-2023 End: 11-24-2023 Emergency department patient visit [facility] Start: 11-21-2023 End: 11-21-2023 [facility] Comment on above: Appointment Due Start: 11-06-2023 End: 11-06-2023 ambulatory [facility] Start: 09-08-2023 End: 09-08-2023 [facility] Comment on above: appointment due Start: 09-02-2023 End: 09-02-2023 ambulatory [facility] Start: 07-17-2023 End: 07-17-2023 Emergency department patient visit [facility] Start: 04-11-2023 End: 04-11-2023 ambulatory [facility] Start: 03-12-2023 ambulatory BENSON SANCHEZMARIA DEL ROSARIOELVA [facility] Start: 09-10-2021 End: 09-10-2021 Subsequent hospital visit by physician [facility] [address] Med Surg Start: 08-21-2021 End: 08-21-2021 Subsequent hospital visit by physician Benson Dial MD [facility] Start: 08-06-2021 End: 08-07-[address] SHAKIR CHOI Facility:[facility] Start: 04-23-2021 End: 04-24-[address] SHAKIR CHOI Facility:[facility] Start: 04-21-2021 End: 04-22-[address] SHAKIR CHOI Facility:[facility] Start: 03-30-2021 End: 03-31-[address] SHAKIR CHOI Facility:[facility] Start: 03-16-2021 End: 03-16-2021 ambulatory JAZMIN LAKEBAIRON Facility:[facility] Procedures Date Procedure Procedure Detail Performing Clinician Start: 07-11-2024 [facility] UA (CLEAN/CATCH) CUTTING MACHINE TENDER/MICRO IF IND. Shakir Steph DO Work Phone: Start: 07-09-2024 OB BPP W NON-STRESS Sophia KYLE Work Phone: Start: 07-08-2024 ALL MISCELLANEOUS TEST Shakir Steph DO Work Phone: Start: 06-23-2024 OB BPP W [...] Work Phone: Start: 04-06-2024 [facility] UA (CLEAN/CATCH) CUTTING MACHINE TENDER/MICRO IF IND. Shakir Choi DO Work Phone: Start: 04-06-2024 [facility] URINE MICROSCOPIC ONLY Shakir Choi DO Work Phone: Start: 03-15-2024 Urnls dip stick/tabl et rgnt non-auto w/o micrscp Shakirsushma Naqvio DO Work Phone: Start: 01-29-2024 URETHRITIS/DISCHARGE PLUS VAGINITIS (HTRX) Shakir Naqvio DO Work Phone: Start: 01-29-2024 Urnls dip stick/tabl et rgnt non-auto w/o micrscp Shakir Naqvio DO Work Phone: Start: 01-17-2024 Antibody screen Shakir herronio DO Work Phone: Start: 01-17-2024 ALL CBC WITH AUTO DIFF Shakir Choi DO Work Phone: Start: 01-17-2024 ALL TYPE AND SCREEN Cor ey Steph DO Work Phone: Start: 01-17-2024 MLR HEMOGLOBIN A1C Shandra Choi DO Work Phone: Start: 04-25-2022 Adult depression scr eening assessment Amber Smith PUBLIC RELATIONS COUNSELOR Start: 08-21-2021 Microscopic observat ion [Identifier] in Cervix by Cyto stain Stv 3 Plan of Treatment Date Care Activity Detail Author Start: 05-05-2025 Adult BMI Screening [facility] Start: 05-05-2025 Tobacco Screening Tobacco Screening [facility] Start: 05-05-2025 End: 05-05-2025 US MFM with or without consult US MFM with or without consult Imaging Routine 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, other fetus Placenta previa in second trimester Suspected problem with placenta not found History of delivery, currently History of drug overdose Expected: 05/05/2025 (Approximate), Expires: 05/05/2025 [employer] Work Phone: Comment on above: Expected: 05/05/2025 (Approximate), Expires: 05/05/2025 Start: 08-21-2024 Screening for malign ant neoplasm of cervix [facility] Start: 07-17-2024 Adult BMI Screening Adult BMI Screen ing [facility] Start: 07-17-2024 Tobacco Screening Tobacco Screening [facility] Start: 07-15-2024 End: 07-15-2024 Patient encounter procedure 07/15/2024 11:20 AM EST Routine [facility] [address] [place] [id number] Shakir Choi, DO [address], [place] [id number] [facility] Start: 07-08-2024 End: 07-08-2024 Patient encounter procedure 07/08/2024 10:40 AM EST Routine [facility] [address] [place] [id number] Shakir Choi, DO [address] [place] [address] [facility] Start: 06-23-2024 End: 06-23-2024 Patient encounter procedure [facility] Comment on above: Arrived Start: 06-12-2024 Respiratory Syncytia l Virus (RSV) or age 60 yrs+ (1 - Risk 1-dose series) Respiratory Syncytial Virus (RSV) or age 60 yrs+ (1 - Risk 1-dose series) [facility] Start: 06-09-2024 End: 06-09-2024 Patient encounter procedure 06/09/2024 11:20 AM EST Routine [facility] [address] [place] [id number] Shakir Choi, DO [address] [place] [address] [facility] Start: 06-03-2024 End: 06-03-2024 Patient encounter procedure 06/03/2024 2:15 PM EST Appointment [facility] [address] [place] [phone] [facility] Start: 05-24-2024 End: [...] AM EST Routine [facility] [address] [place] [id number] Sophia Galo PA [address] [place] [address] [facility] Start: 04-12-2024 End: 04-12-2025 [...] with patient 04/01/2024 4:00 PM EST Telemedicine [facility] [address] [id number] Jossue Swain MD [address] [place] [address] 3 month f/u [facility] Comment on above: 3 month f/u Start: 03-15-2024 End: 03-15-2024 Patient encounter procedure 03/15/2024 10:00 AM EDT Routine [facility] [address] [place] [address] Shakir Choi DO [address], [place] [id number] Arrived [facility] Comment on above: Arrived Start: 02-26-2024 End: 02-26-2024 Patient encounter procedure 02/26/2024 9:40 AM EDT Routine [facility] [address] [place] [address] Sophia Galo PA [address] [place] [address] [facility] Start: 01-29-2024 End: 01-29-2024 Patient encounter procedure 01/29/2024 10:40 AM EDT Routine [facility] [address] [place] [address] Shakir Choi, DO [address] [facility] [place] [address] [facility] Start: 01-25-2024 COVID-19 Vaccine ( season) COVID-19 Vaccine ( season) [facility] Start: 01-25-2024 COVID-19 Vaccine ( season) COVID-19 Vaccine ( season) [facility] Start: 01-25-2024 Influenza vaccination N [facility] Start: 12-25-2023 Influenza vaccination Flu vaccine (# 1) [facility] Start: 04-25-2023 Depression Screening Depression Scre [facility] Start: 01-24-2023 COVID-19 Vaccine ( season) COVID-19 Vaccine () [facility] Start: 11-11-2022 DTaP,Tdap and Td Vaccines (7 - Td or Tdap) DTaP,Tdap and Td Vaccines (7 - Td or Tdap) [facility] Start: 11-11-2022 DTaP/Tdap/Td vaccine (7 - Td or Tdap) DTaP/Tdap/Td vaccine (7 - Td or Tdap) [facility] Start: 2022 Screening for malign ant neoplasm of cervix [facility] Start: 01-24-2022 Influenza vaccination Flu vacc ine (Season Ended) [facility] Start: 10-01-2021 End: 10-01-2021 Patient encounter procedure 10/01/2021 Routine Obstetrics and Gynecology Kristel De Leon, DO [address], [place] [id number] [facility] [employer] Start: 09-04-2021 End: 09-04-2021 Patient encounter procedure 09/04/2021 Routine Obstetrics and Gynecology Anisha Lucas, DO [address] [place] [address] [facility] [employer] [facility] Start: 01-24-2021 Influenza vaccination Flu vaccine (# 1) [facility] Start: 08-03-2019 Varicella vaccine (2 of 2 - 13+ 2-dose series) Varicella vaccine (2 of 2 - 13+ 2-dose series) [facility] Start: 07-28-2019 Hepatitis B vaccine (3 of 3 - 19+ 3-dose series) Hepatitis B vaccine (3 of 3 - 19+ 3-dose series) [facility] Start: 2013 Screening for malign ant neoplasm of cervix Pap smear [facility] Start: 09-21-2011 DTaP/Tdap/Td vaccine (1 - Tdap) DTaP/Tdap/Td vaccine (1 - Tdap) [facility] Start: 2010 Adult BMI Follow Up Plan Adult BMI Follow Up Plan [facility] Start: 2010 Hepatitis C screening Hepatitis C [facility] Start: 2004 Depression Screen Depression Screen [facility] Start: 1997 COVID-19 Vaccine (1) COVID-19 Vaccin e (1) [facility] Start: 1993 Varicella vaccine (1 of 2 - 2-dose childhood series) Varicella vaccine (1 of 2 - 2-dose childhood series) [facility] Start: 1992 Hepatitis C screening Hepatitis C [facility] Bacteria identified in Urine by Culture Urine culture Microbiology Routine UTI symptoms Ordered: 03/15/2024 [facility] Work Phone: Comment on above: Ordered: 03/15/2024 Bacteria identified in Urine by Culture Urine culture Microbiology Routine 27 weeks gestation of Urinary tract infection without hematuria, site unspecified Ordered: 05/10/2024 [facility] Work Phone: Comment on above: Ordered: 05/10/2024 Bacteria identified in Urine by Culture Urine culture Microbiology Routine Urinary tract infection without hematuria, site unspecified Ordered: 01/29/2024 [facility] Work Phone: Comment on above: Ordered: 01/29/2024 Hemoglobin A1c/Hemoglobin.total in Blood Hemoglobin A1c Lab Routine 29 weeks gestation of Third trimester SGA (small for gestational age) Ordered: 05/24/2024 [facility] Comment on above: Ordered: 05/24/2024 Immunizations Immunization Date Immunization Notes Care Provider Fa suzettety 08-06-2019 Influenza, injectabl e, Madin Estefania Canine Kidney, preservative free, quadrivalent [facility] 08-06-2019 influenza virus vaccine, unspecified formulation [facility] 07-06-2019 tuberculin skin test ; purified protein derivative solution, intradermal [facility] 07-06-2019 varicella virus vaccine [facility] 03-01-2019 hepatitis B vaccine, adult dosage [facility] 01-27-2019 hepatitis B vaccine, adult dosage [facility] 11-11-2012 tetanus toxoid, redu lucrecia diphtheria toxoid, and acellular pertussis vaccine, adsorbed [facility] 06-11-2012 influenza, seasonal, injectable [facility] 01-01-2005 measles, mumps and rubella virus vaccine [facility] 01-01-2005 poliovirus vaccine, inactivated [facility] 01-01-2005 TD(adult) unspecifie d formulation [facility] 05-02-1995 diphtheria, tetanus toxoids and acellular pertussis vaccine, unspecified formulation [facility] 03-22-1994 diphtheria, tetanus toxoids and acellular pertussis vaccine, unspecified formulation [facility] 03-22-1994 haemophilus influenz ae type b vaccine, conjugate unspecified formulation [facility] 03-22-1994 measles, mumps and rubella virus vaccine [facility] 03-22-1994 poliovirus vaccine, unspecified formulation [facility] 07-27-1993 diphtheria, tetanus toxoids and acellular pertussis vaccine, unspecified formulation [facility] 07-27-1993 haemophilus influenz ae type b vaccine, conjugate unspecified formulation [facility] 07-27-1993 hepatitis B vaccine, pediatric or pediatric/adolescent dosage [facility] 07-27-1993 poliovirus vaccine, unspecified formulation [facility] 1992 diphtheria, tetanus toxoids and acellular pertussis vaccine, unspecified formulation [facility] 1992 haemophilus influenz ae type b vaccine, conjugate unspecified formulation [facility] 1992 hepatitis B vaccine, pediatric or pediatric/adolescent dosage [facility] 1992 poliovirus vaccine, unspecified formulation [facility] 1992 hepatitis B vaccine, pediatric or pediatric/adolescent dosage [facility] Payers Date Payer Category Payer Medicaid (Managed Care) [employer] [id number] 2003 Medicaid [id number] 2003 Medicaid HMO [employer] [id number] 1992 Unknown [id number] 2.16840.1.375938.3.579.2. 593 1992 Unknown [id number] 2.16.840.1.182840.3.579.2. 593 1992 Unknown [id number] 2.16840.1.233751.3.579.2. 593 1992 Unknown [id number] 2.16.840.1.841763.3.579.2. 593 1992 Unknown [id number] 2.16840.1.996301.3.579.2. 593 1992 Unknown [id number] 2.16840.1.444080.3.579.2. 93 1992 Unknown [id number] 2.840.1.210285.3.579.2. 177 1992 Unknown [id number] 2.16840.1.844140.3.579.2. 175 1992 Unknown [id number] 2.840.1.276508.3.579.2. 175 1992 Unknown [id number] 2.840.1.813081.3.579.2. 175 1992 Unknown [id number] 2.840.1.760029.3.579.2. 175 1992 Unknown [id number] 2.16840.1.092289.3.579.2. 175 1992 Unknown [id number] 2.16840.1.213240.3.579.2. 1286 1992 Unknown [id number] 2.16840.1.069036.3.579.2. 1286 1992 Unknown [id number] 2.840.1.227358.3.579.2. 1286 1992 Unknown [id number] 2.16840.1.056287.3.579.2. 1285 1992 Unknown [id number] 2.840.1.298671.3.579.2. 1285 1992 Unknown [id number] 2.16840.1.405409.3.579.2. 1285 1992 Unknown [id number] 2.840.1.246853.3.579.2. 1285 1992 Unknown [id number] 2.840.1.937879.3.579.2. 1285 1992 Unknown [id number] 2.840.1.504709.3.579.2. 1285 1992 Unknown [id number] 2.840.1.725374.3.579.2. 1285 1992 Unknown [id number] 2840.1.938615.3.579.2. 1258 1992 Unknown [id number] 2840.1.954393.3.579.2. 1258 1992 Unknown [id number] 20.1.023556.3.579.2. 1258 1992 Unknown [id number] 2.840.1.567254.3.579.2. 1258 1992 Unknown [id number] 840.1.974853.3.579.2. 1258 1992 Unknown [id number] 840.1.679005.3.579.2. 1258 1992 Unknown [id number] 2840.1.764085.3.579.2. 1258 1992 Unknown [id number] 2.840.1.466660.3.579.2. 1258 1992 Unknown [id number] 2.840.1.392268.3.579.2. 1258 1959 Self-pay [id number] 1959 Unknown [id number] Unknown [id number] 2.16.840.1.045750.3.579.2. 593 Social History Date Type Detail Facility Start: 06-23-2012 End: 01-01-2024 Tobacco smoking status [facility] Never smoked tobacco [employer] Phone: Start: 06-23-2012 End: 01-01-2024 Tobacco use and exposure Smokeless tobacco non-user [employer] Phone: Start: 08-21-2021 End: 06-09-2024 Alcohol intake Lifetime non-drinker (finding) [employer] Phone: Start: 08-21-2021 History SDOH Alcohol Frequency 1 [employer] Phone: Start: 02-16-2021 [employer] Phone: Start: 1990 [facility] Start: 09-01-2021 End: 09-04-2021 Tobacco smoking status [facility] Ex-smoker [facility] Start: 09-04-2021 End: 05-05-2024 Alcohol intake Ex-drinker (finding) [employer] Phone: Start: 07-06-2020 End: 01-01-2024 History of Social function [facility] Start: 07-06-2020 End: 01-01-2024 Tobacco use panel [facility] Start: 1990 Sex assigned at Female [facility] History of tobacco use Current smoker [employer] Start: 07-17-2023 Alcoholic beverage intake Current drinker of alcohol (finding) [facility] Adolescent depressio n [facility] The thought of harmi ng myself has occurred to me Never [facility] Start: 05-01-2018 Alcohol Comment once a month / couple glasses of wine [facility] [employer] [facility] Has the [employer], or [employer] threatened to shut off services in your home in past 12Mo No [employer] [facility] Start: 12-29-2014 Sex Female (finding) [facility] Goals Date Patient Goal Desired [...] Past Medical History: Diagnosis Date Anxiety Asthma ([facility]) Chlamydia Depression ([facility]) History of miscarriage Iron deficiency anemia SAB (spontaneous ) UTI (urinary tract infection) HISTORY PAST MEDICAL HISTORY SOCIAL HISTORY Past Medical History: Diagnosis Date Anxiety Asthma ([facility]) Chlamydia Depression ([facility]) History of miscarriage Iron deficiency [...] having contractions on 06/20/2024 and went to [facility] for evaluation pt states she was given IV fluids and the contractions went away. On 06/22/2024 pt states she went to [facility] due to contractions again @ 7-10 mins [...] at 34 weeks. Patient sent over to [facility] for nst and BPP following appointment today. Ua showed positive nitrate and we will send in keflex Orders Placed This Encounter Procedures POCT urinalysis dipstick manually resulted Follow Up: Patient is to return to office in 2 week for routine OB appointment. Documented by Latia Hsu MA on behalf of: ANABELLA Gleason documented in this encounter [facility] 06-09-2024 History of Presen t illness [...] Past Medical History: Diagnosis Date Anxiety Asthma ([facility]) Chlamydia Depression ([facility]) History of miscarriage Iron deficiency anemia SAB (spontaneous ) UTI (urinary tract infection) HISTORY PAST MEDICAL HISTORY SOCIAL HISTORY Past Medical History: Diagnosis Date Anxiety Asthma (CMS/HCC) Chlamydia Depression ([facility]) History of miscarriage Iron deficiency [...] nursing note reviewed. Exam conducted with a emergency department technician present. Vitals: Estimated body mass index [...] Shakir Choi DO documented in this encounter [facility] 05-24-2024 History of Presen t illness [...] was seen and admitted to hospital in [place] when she was on [place] stating they [...] of: ANABELLA Gleason documented in this encounter [facility] 05-10-2024 History of Presen t illness [...] Past Medical History: Diagnosis Date Anxiety Asthma ([facility]) Chlamydia Depression ([facility]) History of miscarriage Iron deficiency anemia SAB (spontaneous ) UTI (urinary tract infection) HISTORY PAST MEDICAL HISTORY SOCIAL HISTORY Past Medical History: Diagnosis Date Anxiety Asthma (CMS/HCC) Chlamydia Depression ([facility]) History of miscarriage Iron deficiency [...] nursing note reviewed. Exam conducted with a emergency department technician present. Vitals: Estimated body mass index [...] a day. Is doing growth ultrasounds at [facility] on 06/03/ will start here after, NST/BPP at 32 weeks. Rx for macrobid faxed to pharmacy. Orders Placed This Encounter Procedures Urine culture POCT urinalysis dipstick manually resulted Follow Up: Patient is to return to office in 2 week for routine OB appointment. Documented by Ct Nunez LPN on behalf of: Sophia Galo PA-C documented in this encounter [facility] 05-05-2024 History of Presen t illness [...] female Have you been seen here at [facility] in a previous ? Yes Recent ER visits or hospitalizations? Yes , spotting Bring blood sugar log or meter with you today? (Please bring them with you for every visit at [facility]) n/a Flu vaccine (Mar-July)? No Any [...] also discussed pediatric orthopedic follow-up postnatally. Ct personal carer met with the patient after the visit. [...] Follow-up with Pediatric Orthopedic surgery postnatally. Ct personal carer met with the patient today. Plan reviewed with patient. She vocalized understanding all questions answered. The patient is to continue with routine care in your office [facility], the CDC, and other organizations representing maternal and public health professionals recommend that , , and lactating people and those considering receive the COVID-19 vaccination. Vaccination is the best method to reduce maternal and complications of SARS-CoV-2 infection. This document was created with [employer] technology. Though I make every effort to review the dictation as it is transcribed, on occasion the spoken word can be misinterpreted by the technology leading to inappropriate words, phrases, or sentences. This note is addressed to the requesting provider as a consultation for clinical guidance. Specific medical abbreviations are occasionally used and those are generally approved by the [place]?Board of?Obstetrics and?Gynecology?as well as?Kenna s abbreviations. The above plan of care was based solely on the diagnoses for which a consultation was requested. ?More frequent testing may be indicated based on her other medical/obstetrical conditions. The management of other or medical conditions is beyond the scope of requested consultation and will continue to be followed by the primary scrub tech or primary care provider. Thank you [...] procedures Referring and communicating with other health primary care pediatrician (not separately reported) Documenting clinical information in the electronic or other health record Independently interpreting results (not separately reported) and communicating results to the patient/family/caregiver Care coordination (not separately reported) [facility] History of Presen t illness Narrative [...] of: ANABELLA Gleason documented in this encounter [facility] 03-15-2024 History of Presen t illness [...] Past Medical History: Diagnosis Date Anxiety Asthma ([facility]) Chlamydia Depression ([facility]) History of miscarriage Iron deficiency anemia SAB (spontaneous ) UTI (urinary tract infection) HISTORY PAST MEDICAL HISTORY SOCIAL HISTORY Past Medical History: Diagnosis Date Anxiety Asthma ([facility]) Chlamydia Depression ([facility]) History of miscarriage Iron deficiency [...] nursing note reviewed. Exam conducted with a emergency department technician present. Vitals: Estimated body mass index [...] Shakir Choi DO documented in this encounter [facility] 02-06-2024 History of Presen t illness Narrative Pt here for Feraheme infusion. Infusion complete without incident. Pt d/c'd in stable condition. Returns 04-01-24 for MD f/u. documented in this encounter [facility] 01-29-2024 History of Presen t illness [...] Past Medical History: Diagnosis Date Anxiety Asthma ([facility]) Chlamydia Depression ([facility]) History of miscarriage Iron deficiency anemia SAB (spontaneous ) UTI (urinary tract infection) HISTORY PAST MEDICAL HISTORY SOCIAL HISTORY Past Medical History: Diagnosis Date Anxiety Asthma ([facility]) Chlamydia Depression ([facility]) History of miscarriage Iron deficiency [...] nursing note reviewed. Exam conducted with a emergency department technician present. Vitals: Estimated body mass index [...] meat, and stay away from [facility]. Patient has been consulted regarding any [...] Shakir Choi DO documented in this encounter [facility] 11-21-2023 Miscellaneous Notes Care Coordination Outreach performed to coordinate overdue appointments, testing, and/or follow-up care: Yes Audit/Outreach Date: November 21, 2023 Reason: Well Person Method: Telephone and MyChart Outreach Attempt: First Outcome: Left Message and letter sent Next PCP Appointment: N/A Tests/Referrals Pended: N/A Resources/Education Provided: Additional Comments: Unable to reach patient by telephone to schedule appointment. Letter sent. documented in this encounter [facility] 11-21-2023 Telephone encounter Note Care Coordination Outreach performed to coordinate overdue appointments, testing, and/or follow-up care: Yes Audit/Outreach Date: November 21, 2023 Reason: Well Person Method: Telephone and MyChart Outreach Attempt: First Outcome: Left Message and letter sent Next PCP Appointment: N/A Tests/Referrals Pended: N/A Resources/Education Provided: Additional Comments: Unable to reach patient by telephone to schedule appointment. Letter sent. [facility] 09-08-2023 Miscellaneous Notes Care Coordination Outreach performed to coordinate overdue appointments, testing, and/or follow-up care: Yes Audit/Outreach Date: September 08, 2023 Reason: Well Person Method: Telephone and MyChart Outreach Attempt: First Outcome: Left Message Next PCP Appointment: N/A Tests/Referrals Pended: N/A Resources/Education Provided: Additional Comments: documented in this encounter [facility] 09-08-2023 Telephone encounter Note Care Coordination Outreach performed to coordinate overdue appointments, testing, and/or follow-up care: Yes Audit/Outreach Date: September 08, 2023 Reason: Well Person Method: Telephone and MyChart Outreach Attempt: First Outcome: Left Message Next PCP Appointment: N/A Tests/Referrals Pended: N/A Resources/Education Provided: Additional Comments: [facility] Evaluation note Diagnosis Second trimester state, incidental 17 weeks gestation of UTI symptoms documented [facility]* Diagnosis Bacterial vaginosis- Primary Unspecified vaginitis and vulvovaginitis 23 weeks gestation of Second trimester state, incidental Diabetes mellitus screening Screening for diabetes mellitus documented in [facility]* Diagnosis 27 weeks gestation of Second trimester state, incidental Urinary tract infection without hematuria, site unspecified [facility]* Diagnosis First trimester state, incidental Nausea Nausea alone Urinary tract infection without hematuria, site unspecified [facility]* Diagnosis 29 weeks gestation of Third trimester state, incidental SGA (small for gestational age) Btvwa-glm-ffomy without mention of malnutrition, unspecified (weight) documented [facility]* Diagnosis 31 weeks gestation of Second trimester state, incidental Right club foot Premature uterine contractions, antepartum Unspecified abnormality of labor, antepartum documented [facility]* Diagnosis Iron deficiency anemia, unspecified iron deficiency anemia type- Primary [facility] Diagnosis Third trimester state, incidental 33 weeks gestation of Urinary tract infection with hematuria, site unspecified [facility]* Diagnosis 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, other fetus- Primary Placenta previa in second trimester Suspected problem with placenta not found Suspected placental problem not found History of delivery, currently with history of pre-term labor History of drug overdose History of placental abruption Anxiety and depression 26 weeks gestation of [facility] 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, other fetus- Primary Placenta previa in second trimester Suspected problem with placenta not found Suspected placental problem not found History of delivery, currently with history of pre-term labor History of drug overdose documented [facility] filedocumented in this encounter [facility] on filedocumented in this encounter [facility]Not on filedocumented in this encounter [facility] for [facility] Narrative* Treatment Plan and Therapy Plan (Routine) - Authorized Specialty Diagnoses / Procedures Referred By Contac t Referred To Contact Diagnoses Iron deficiency anemia, unspecified iron deficiency anemia type Procedures [place] FERUMOXYTOL, NON-ESRD Jossue Swain MD [address] [place] [address] [facility] [place]c [address] [place] [address] Referral ID Status Reason Start Date Expiration Date V isits Requested Visits Authorized [id number] Authorized 01/14/2024 04/15/2024 10 10 [facility] Summary Purpose Family History No Family History Records FoundNo Family History Records FoundNo Family History Records FoundNo Family History Records FoundNo Family History Records FoundNo Family History Records FoundNo Family History Records Found Advance Directives Documents on File Type Date Recorded Patient District Gauger Expl anation ACP-Advance Directive ACP-Power of Assessment Director Date Activated Date Inactivated Comments 10/02/2021 12:27 PM 10/03/2021 3:44 PM Date Activated Date Inactivated Comments 09/01/2021 5:55 AM 09/02/2021 1:38 AM Date Activated Date Inactivated Comments 05/02/2018 3:43 AM 05/06/2018 12:44 PM Date Activated Date Inactivated Comments 04/29/2018 12:37 AM 05/01/2018 5:03 PM Date Activated Date Inactivated Comments 04/28/2018 2:36 PM 04/29/2018 12:37 AM Date Activated Date Inactivated Comments 04/09/2024 7:33 [...] Comments 04/29/2018 12:37 AM 05/01/2018 5:03 PM Additional Source Comments INFORMATION SOURCE (unrecogn ized section and content) DATE CREATED AUTHOR 08/08/2021 [facility] DATE CREATED AUTHOR AUTHOR'S ORGANIZ ATION 03/23/2023 [facility] DATE CREATED AUTHOR AUTHOR'S ORGANIZ ATION 12/11/2023 [facility] DATE CREATED AUTHOR AUTHOR'S ORGANIZ ATION 02/08/2024 [facility] DATE CREATED AUTHOR AUTHOR'S ORGANIZ ATION 06/08/2024 [facility] DATE CREATED AUTHOR AUTHOR'S ORGANIZ ATION 06/24/2024 [facility] DATE CREATED AUTHOR AUTHOR'S ORGANIZ ATION 07/10/2024 [facility] dical Specialists EPIC Care Teams (unrecognized sec tion and content) Interior Decorator Paperhanging Relationship Specialty Start Date End Date Benson Dial MD PCP - General 10/08/12 Interior Decorator [employer]hanging Relationship Specialty Start Date End Date Benson Dial MD PCP - General 10/08/12 Interior Decorator [employer] Relationship Specialty Start Date End Date Vinicius Quintana MD [address] [place] [address] PCP - General Family Medicine 03/03/23 Interior Decorator Paperhanging Relationship Specialty Start Date End Date Vinicius Quintana MD [address] [place] [address] PCP - [facility] 03/03/23 Interior Decorator Paperhanging Relationship Specialty Start Date End Date Vinicius Quintana MD [address] [place] [address] PCP - [facility] Medicine 03/03/23 Interior Decorator Paperhanging Relationship Specialty Start Date End Date Vinicius Quintana MD [address] [place] [address] PCP - [facility] Medicine 03/03/23 Interior Decorator Paperhanging Relationship Specialty Start Date End Date Vinicius Quintana MD [address] [place] [address] PCP - [facility] Medicine 03/03/23 Interior Decorator Paperhanging Relationship Specialty Start Date End Date Vinicius Quintana MD [address] [place] [address] PCP - General [facility] Medicine 03/03/23 Interior Decorator Paperhanging Relationship Specialty Start Date End Date Vinicius Quintana MD [address] [place] [address] PCP - [facility] Medicine 03/03/23 Interior Decorator Paperhanging Relationship Specialty Start Date End Date Vinicius Quintana MD [address] [place] [address] PCP - [facility] Medicine 03/03/23 Interior Decorator Paperhanging Relationship Specialty Start Date End Date Vinicius Quintana MD [address] [place] [address] PCP - General Family Medicine 03/03/23 Interior Decorator Paperhanging Relationship Specialty Start Date End Date Vinicius Quintana MD [address] [place] [address] PCP - General Family Medicine 03/03/23 Interior Decorator Paperhanging Relationship Specialty Start Date End Date Vinicius Quintana MD [address] [place] [address] PCP - General Family Medicine 03/03/23 Interior Decorator Paperhanging Relationship Specialty Start Date End Date Benson Dial MD PCP - General 10/08/12 Interior Decorator Paperhanging Relationship Specialty Start Date End Date Vinicius Quintana MD [address] [place] [address] PCP - General Family Medicine 03/03/23 Interior Decorator Paperhanging Relationship Specialty Start Date End Date Vinicius Quintana MD [address] [place] [address] PCP - General Family Medicine 03/03/23 Interior Decorator Paperhanging Relationship Specialty Start Date End Date Vinicius Quintana MD [address] [place] [address] PCP - General Family Medicine 03/01/17 Interior Decorator Paperhanging Relationship Specialty Start Date End Date Vinicius Quintana MD [address] [place] [address] PCP - General Family Medicine 03/01/17 Interior Decorator Paperhanging Relationship Specialty Start Date End Date Vinicius Quintana MD [address] [place] [address] PCP - General Family Medicine 03/01/17 Reason for Visit (unrecogniz ed section and content) Reason Comments Routine Visit Reason Onset Date Comments Appointment Due 11/21/2023 Reason Onset Date Comments appointment due 09/08/2023 Reason Comments H/X PTD x2 H/X Placental Abruption Placenta Previa Club Foot FOR RECORDS PERTAINING TO PATIENTS WHO ARE [...] BE BASED ON THE PRIMARY CLINICAL RECORDS. [employer] provides no warranty or guarantee of the accuracy or completeness of information in this document.
[2024-07-16 10:20] VITALS: BP 119/91; PULSE 75
[2024-07-16 10:48] VITALS: BP 128/83; PULSE 66
== END 2024-07-16 10:49 | disposition home or self-care (01) ==
LOC: US 00:10 → FBC 09:54
PROVIDERS: PCP Family Medicine; Visit Provider Physician Assistant
DX: Z34.93 Encounter for supervision of normal pregnancy, unspecified, third trimester (principal); Z3A.36 36 weeks gestation of pregnancy
CPT/HCPCS: 76818

== ENCOUNTER 2024-07-20 01:03 | Outpatient (OUT) | payer OTHER, SELFPAY ==
--- OUTSIDE RECORDS SUMMARY | 2024-07-20 01:10 | XMS_ITS | CCD ---
Author Organization [facility] Care Team Providers Care Supervisor [employer] Name Role Phone STEPH, DR MURO Admitting [...] Unavailable AL-HAYDE, MOHAMMAD A Referring Unavailable BERNIE PULDIO Referring Unavailable OBAYUWANA, ALPHONSUS Primary Care Unavailable BERNIE PULIDO Referring Unavailable OBAYUWANA, ALPHONSUS Primary Care Unavailable AL-ADAMAOUR, MOHAMMAD A Referring Unavailable OBAYUWANA, ALPHONSUS Primary Care Unavailable SHERIF-HAYDE, MOHAMMAD A Referring Unavailable OBAYUWANA, ALPHONSUS Primary Care Unavailable BERNIE PULIDO Referring Unavailable OBBENSON PEREZ Primary Care Unavailable Vinicius Quintana MD Primary Care Provider SHAKIR CHOI Referring Unavailable DEFRANCE, VINICIUS Fernandes Primary Care Unavailable IFRAH DÍAZ Attending Unavailable STEPH, SHAKIR R Referring Unavailable DEFRANCE, VINICIUS Fernandes Primary Care Unavailable STEPH, SHAKIR R Referring Unavailable DEFRANCE, VINICIUS Fernandes Primary Care Unavailable Benson Dial MD Primary Care Provider Un available VINICIUS QUINTANA. Primary Care Unavailable KARENA FLYNN Attending Unavailable NAS THOMAS Admitting Unavaila ble DEFMOY, VINICIUS Fernandes Primary Care Unavailable CARROL DAVIS Attending Unavailable DEFMOY, VINICIUS Fernandes Primary Care Unavailable JUAN MIGUEL HOLDEN Admitting Unavailable ADINAJUAN MIGUEL DO Attending Unavailable DEFRANCE, VINICIUS Fernandes Primary Care Unavailable SARAHDESTINYU Admitting Unavailable SARAHDESTINY OZUNAU Attending Unavailable DEFRANCE, VINICIUS Fernandes Primary Care Unavailable CORINA JEAN Attending Unavailable DEFRANCE, VINICIUS Fernandes Primary Care Unavailable DEFRANCE, VINICIUS Fernandes Primary Care Unavailable Defrance Vinicius ATWOOD Primary Care Provider SOPHIA GALO Attending Unavailable STEPH, SHAKIR Attending [...] Local Anesthetic Start: 03-10-2023 lidocaine-EPINEPHr ine 1 %-1:[id number] injection 1 mL ferrous sulfate 325 mg [...] pregnancies, unspecified trimester] Onset: 05-05-2024 Episodic Other complications of (2 sources) H/O: ; Translations: [Supervision of with other poor reproductive or obstetric history, third trimester] 07-15-2024 Episodic Other congenital anomalies (2 sources) Talipes [...] of ] 04-12-2024 Episodic Residual codes; unclassified (20 sources) Gestation period, 27 weeks; Translations: [27 [...] of ] 06-23-2024 Episodic Residual codes; unclassified (11 sources) Gestation period, 35 weeks; Translations: [35 [...] of ] 05-05-2024 Episodic Residual codes; unclassified (2 sources) Gestation period, 36 weeks; Translations: [36 weeks gestation of ] 07-15-2024 Episodic Short gestation; low weight; and growth retardation (1 source) Wwoxk-zpr-tccld baby; Translations: [ small for gestational age, [...] source) Cold Like Symptoms Onset: 07-17-2023 Unclassified (10 sources) OB Reminders Onset: 07-08-2024 07-08-2024 Urinary [...] 01-02-2024 Episodic Other aftercare (1 source) Other technician terminal and repeater (current) drug therapy; Translations: [Other fdc (current) drug therapy] Onset: 11-06-2023 Episodic Other [...] Facility US OB BPP W NON-STRESS on 07-16-2024 [place] [id number] Ultrasound Report Signed Patient: HOMERO DE LEON MR#: [id number] : 1990 Acct:[id number] Age/Sex: 33 / F ADM Date: 07/16/24 Loc: US Attending Dr: Sophia Galo Ordering Physician: Sophia Galo Date of Service: 07/16/24 Procedure(s): US OB BPP w non-stress Accession Number(s): [id number] cc: Sophia Galo; VINICIUS QUINTANA [address] [address] Patient Name: HOMERO DE LEON MRN: [facility]:[id number] date: 1990 Sex: F Assigned Patient Location: [facility] Current Patient Location: Accession/Order Number: [id number] Exam Date: 07/16/2024 12:03 Report Date: 07/16/2024 12:06 At the request of: SOPHIA GALO Procedure: US OB BPP w non-stress BIOPHYSICAL PROFILE: CLINICAL INFORMATION: SMALL FOR GESTATIONAL AGE COMPARISON: 07/09/2024 There is a single live intrauterine gestation In cephalic presentation. The reported age is 36 weeks 6 days. The heart rate [id number] beats per minute. FINDINGS: TONE: 1 or more episodes of activity extension and flexion of extremity or opening and closing of the hand [Y] 2/2 GROSS BODY MOVEMENTS: 3 or more discrete body or limb movements [Y] 2/2 BREATHING MOVEMENTS: 1 or more episodes of breathing lasting at least 30 seconds [Y] 2/2 BE: A single deepest vertical pocket of amniotic fluid greater than 2 cm [Y] 2/ BE: 10.916. This is in low-normal range. Total score: 8/8 US/US OB BPP w non-stress IMPRESSION: NORMAL BIOPHYSICAL PROFILE Impression dictated by: Ct Guillen M.D.07/16/2024 12:06 PM Dictation Location: [place] [address] Electronically authenticated by: [id number] Y Date: 07/16/2024 12:06 Dictated By: Ct Guillen M.D. 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: [facility] Radiology, Radiologist, MD - 07/16/2024 [place] [address] Ultrasound Report Signed Patient: HOMERO DE LEON MR#: [id number] : 1990 Acct:[id number] Age/Sex: 33 / F ADM Date: 07/16/24 Loc: US Attending Dr: Sophia Galo Ordering Physician: Sophia Galo Date of Service: 07/16/24 Procedure(s): US OB BPP w non-stress Accession Number(s): [id number] cc: Sophia Galo; VINICIUS QUINTANA [place] [id number] Patient Name: HOMERO DE LEON MRN: [facility]:[id number] date: 1990 Sex: F Assigned Patient Location: [facility] Current Patient Location: Accession/Order Number: [id number] Exam Date: 07/16/2024 12:03 Report Date: 07/16/2024 12:06 At the request of: SOPHIA GALO Procedure: US OB BPP w non-stress BIOPHYSICAL PROFILE: CLINICAL INFORMATION: SMALL FOR GESTATIONAL AGE COMPARISON: 07/09/2024 There is a single live intrauterine gestation In cephalic presentation. The reported age is 36 weeks 6 days. The heart rate [id number] beats per minute. FINDINGS: TONE: 1 or more episodes of activity extension and flexion of extremity or opening and closing of the hand [Y] 2/2 GROSS BODY MOVEMENTS: 3 or more discrete body or limb movements [Y] 2/2 BREATHING MOVEMENTS: 1 or more episodes of breathing lasting at least 30 seconds [Y] 2/2 BE: A single deepest vertical pocket of amniotic fluid greater than 2 cm [Y] 2/2 BE: 10.916. This is in low-normal range. Total score: 8/8 US/US OB BPP w non-stress IMPRESSION: NORMAL BIOPHYSICAL PROFILE Impression dictated by: Ct Guillen M.D.07/16/2024 12:06 PM Dictation Location: [employer] Electronically authenticated by: [id number] Y Date: 07/16/2024 12:06 Dictated By: Ct Guillen M.D. 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: [facility] Radiology Study observation (narrative) [facility] US OB BPP W NON-STRESS Ordered By: Radiologist Radiology on 07-16-2024 [facility] Work Phone: Urinalysis macro (dipstick) panel (U)on 07-15-2024 Bilirubin, UA Positive Negative - 4(70) +++ mg/dL [facility] Comment on above: small Blood, UA Negative Negative - 50 Papo/mcL [facility] Clarity, UA Clear [facility] Color, UA Yellow [facility] Glucose, UA Negative Negative - 2000(110) ++++ mg/dL [facility] Interpretation and review of laboratory results Abnormal [facility] Ketones, UA Negative Negative - 160(16) ++++ mg/dL [facility] Leukocytes, UA Positive Negative - 500+++ Akash/mcL [facility] Comment on above: small Nitrite, UA Negative Negative - Positive [facility] pH, UA 7 5 - 9 [facility] Protein, UA Positive Negative - 2000(20) ++++ mg/dL [facility] Comment on above: 30 Spec Grav, UA 1.02 1 - 1.03 [facility] Urobilinogen, UA 1.0 0.2 - 12 mg/dL [facility] ALL MISCELLANEOUS TESTon MISCELLANEOUS TEST COMMENT . [facility] Comment on above: Test Ordered: [id number] Strep Gp B Culture+Rflx Strep Gp B Culture+Rflx Negative CB Reference Range: Negative Centers for Disease Control and Prevention (CDC) and [place] [employer] of [employer]stetricians and Gynecologists (ACOG) guidelines [...] resistance to clindamycin is noted. Performed at: [address] [id number] Roll Tube Setter: Ramy Zavala PhD, Phone: [phone] CULTURE, GROUP B STREP WITH SUSCEPTIBILITY [facility] UA (CLEAN/CATCH) COMPUTER TECHNICAL SUPPORT SPECIALIST/ZHOU RO IF IND.on 07-11-2024 BILIRUBIN URINE Negative NEGATIVE [facility] BLOOD URINE Negative NEGATIVE [facility] Clarity (U) CLEAR CLEAR [facility] Color (U) YELLOW YELLOW [facility] GLUCOSE URINE UA Negative NEGATIVE mg/dL [facility] Interpretation and review of laboratory results Abnormal [facility] Ketones Ql (U) Negative NEGATIVE mg/dL [facility] Leukocyte esterase Test strip Ql (U) TRACE Abnormal NEGATIVE [facility] NITRITE URINE Negative NEGATIVE [facility] pH (U) 6.5 [pH] 5.0 - 9.0 [facility] PROTEIN URINE Negative NEG/TRACE mg/dL [facility] SPECIFIC GRAVITY URINE 1.015 1.005 - 1.[address] [facility] URINE MICROSCOPIC INDICATED YES [facility] UROBILINOGEN URINE 0.2 EU/dL 0.2 - 1.0 EU/dL [facility] US OB BPP W NON-STRESS on 07-09-[address] [address] Ultrasound Report Signed Patient: HOMERO DE LEON MR#: [id number] : 1990 Acct:[id number] Age/Sex: 33 / F ADM Date: 07/09/24 Loc: US Attending Dr: Sophia Galo Ordering Physician: Sophia Galo Date of Service: 07/09/24 Procedure(s): US OB BPP w non-stress Accession Number(s): [id number] cc: VINICIUS Vicente The [address] [address] Patient Name: HOMERO DE LEON MRN: [facility]:[id number] date: 1990 Sex: F Assigned Patient Location: US Current Patient Location: Accession/Order Number: [id number] Exam Date: 07/09/2024 10:09 Report Date: 07/09/2024 [...] Signed By: 07/09/24 1407 DD/ 04 TD/TT: Chucking And Sawing Machine Operator: [facility] Radiology, Radiologist, MD - 07/09/[address] [address] Ultrasound Report Signed Patient: HOMERO DE LEON MR#: [id number] : 1990 Acct:[id number] Age/Sex: 33 / F ADM Date: 07/09/24 Loc: US Attending Dr: Sophia Galo Ordering Physician: Sophia Galo Date of Service: 07/09/24 Procedure(s): US OB BPP w non-stress Accession Number(s): [id number] cc: Sophia Galo; VINICIUS QUINTANA [facility] [address] [place] [address] Patient Name: HOMERO DE LEON MRN: [facility]:[id number] date: 1990 Sex: F Assigned Patient Location: US Current Patient Location: Accession/Order Number: [id number] Exam Date: 07/09/2024 10:09 Report Date: 07/09/2024 [...] M.D. Signed By: 07/09/241406 DD/ 04 TD/TT: Chucking And Sawing Machine Operator: [facility] Radiology Study observation (narrative) [facility] US OB BPP W NON-STRESS Ordered By: Radiologist Radiology on 07-09-2024 [facility] Work Phone: Urinalysis macro (dipstick) panel (U)on 07-08-2024 Bilirubin, UA Negative Negative - 4(70) +++ mg/dL [facility] Blood, UA Negative Negative - 50 Papo/mcL [facility] Clarity, UA Clear [facility] Color, UA Yellow [facility] Glucose, UA Negative Negative - 2000(110) ++++ mg/dL [facility] Interpretation and review of laboratory results Normal [facility] Ketones, UA Negative Negative - 160(16) ++++ mg/dL [facility] Leukocytes, UA Negative Negative - 500+++ Akash/mcL [facility] Nitrite, UA Negative Negative - Positive [facility] pH, UA 7 5 - 9 [facility] Protein, UA Negative Negative - 1999(20) ++++ mg/dL [facility] Spec Grav, UA 1.01 1 - 1.03 [facility] Urobilinogen, UA 0.2 0.2 - 12 mg/dL [facility] US OB BPP W NON-STRESS on 06-23-2024 [place] [address] Ultrasound Report Signed Patient: HOMERO DE LEON MR#: [id number] : 1990 Acct:[id number] Age/Sex: 33 / F ADM Date: Loc: [facility] 251-[address]: Shakir Choi D.O. Ordering Physician: Shakir Choi D.O. Date of Service: 06/23/24 Procedure(s): US OB BPP w non-stress Accession Number(s): [id number] cc: VINICIUS QUINTANA ; Shakir Choi D.O. [place] [id number] Patient Name: HOMERO DE LEON MRN: [facility]:[id number] date: 1990 Sex: F Assigned Patient Location: [facility] Current Patient Location: [facility] Accession/Order Number: [id number] Exam Date: 06/23/2024 14:01 Report Date: 06/23/2024 [...] By: Sallie Mckeon M.D. Signed By: 06/23/24 143 DD/ 26 TD/TT: Chucking And Sawing Machine Operator: [facility] Radiology, Radiologist, - 06/23/2024 [place] [address] Ultrasound Report Signed Patient: HOMERO DE LEON MR#: [id number] : 1990 Acct:[id number] Age/Sex: 33 / F ADM Date: Loc: [facility] 251-[address]: Shakir Choi D.O. Ordering Physician: Shakir Choi D.O. Date of Service: 06/23/24 Procedure(s): US OB BPP w non-stress Accession Number(s): [id number] cc: VINICIUS QUINTANA ; Shakir Choi D.O. The [place] [address] Patient Name: HOMERO DE LEON MRN: [facility]:[id number] date: 1990 Sex: F Assigned Patient Location: [facility] Current Patient Location: [facility] Accession/Order Number: [id number] Exam Date: 06/23/2024 14:01 Report Date: 06/23/2024 [...] By: Sallie Mckeon M.D. Signed By: 06/23/24 143 DD/ 26 TD/TT: Chucking And Sawing Machine Operator: [facility] Radiology Study observation (narrative) [facility] US OB BPP W NON-STRESS Ordered By: Radiologist Radiology on 06-23-2024 [facility] Work Phone: Urinalysis macro (dipstick) panel (U)on 06-23-2024 Bilirubin, UA Positive Negative - 4(70) +++ mg/dL [facility] Comment on above: small Blood, UA Positive Negative - 50 Papo/mcL [facility] Comment on above: trace Clarity, UA Clear [facility] Color, UA Sera [facility] Glucose, UA Negative Negative - 2000(110) ++++ mg/dL [facility] Interpretation and review of laboratory results Abnormal [facility] Ketones, UA Positive Negative - 160(16) ++++ mg/dL [facility] Comment on above: 15 Leukocytes, UA Positive Negative - 500+++ Akash/mcL [facility] Comment on above: large Nitrite, UA Positive Negative - Positive [facility] pH, UA 6.5 5 - 9 [facility] Protein, UA Positive Negative - 2000(20) ++++ mg/dL [facility] Comment on above: 100 Spec Grav, UA 1.025 1 - 1.03 [facility] Urobilinogen, UA 1.0 0.2 - 12 mg/dL [facility] CHLAMYDIA/GC BY PCRon 2024 CHLAMYDIA/GC [...] are dependent on adequate specimen collection. Normal [facility] Comment on above: Performed By: #### 2 106-3 #### [facility] ([id number]) [address] [place] [address], [place] [address] DRUG SCREEN, URINEon 025 AMPHETAMINE/METHAMP Negative Normal [facility]G [facility] Comment on above: Result Comment: AMPH /METH screening cut off = 1000 ng/mL Performed By: #### 2 106-3 #### [facility] ([id number]) [address] [place] [address] BARBITURATES Negative Normal NEG [facility] Comment on above: Result Comment: Allison iturates screening cut off value = 200 ng/mL Performed By: #### 2 106-3 #### [facility] ([id number]) [address] [place] [address] BENZODIAZEPINES Negative Normal NEG [facility] Comment on above: Result Comment: Dave odiazepines screening cut off value = 200 ng/mL Performed By: #### 2 106-3 #### [facility] ([id number]) [address] [place] [address] CANNABINOIDS Negative Normal NEG [facility] Comment on above: Result Comment: Eddie abinoids/THC screening cut off value = 50 ng/mL Performed By: #### 2 106-3 #### [facility] ([id number]) [address] [place] [address] COCAINE METABOLITE Negative Normal NEG [facility] Comment on above: Result Comment: Coca ine screening cut off value = 300 ng/mL Performed By: #### 2 106-3 #### [facility] ([id number]) [address] [place] [address] ECSTASY Negative Normal NEG [facility] Comment on above: Result Comment: Ecst asy screening cut off value = 500 ng/mL This report is intended for use in clinical monitoring or management of patients. Performed By: #### 2 106-3 #### [facility] ([id number]) [address] [place] [address] METHADONE Negative Normal NEG [facility] Comment on above: Result Comment: Meth adone screening cut off value = 300 ng/mL. Performed By: #### 2 106-3 #### [facility] ([id number]) [address] [place] [address] OPIATES Negative Normal NEG [facility] Comment on above: Result Comment: Opia victoria screening cut off value = 300 ng/mL NOTE: This test is used for the detection of codeine, hydrocodone (>1000 ng/mL), morphine and hydromorphone (>900 ng/mL) in urine. Performed By: #### 2 106-3 #### [facility] ([id number]) [address] [place] [address] OXYCODONE Negative Normal NEG [facility] Comment on above: Result Comment: Oxyc odone screening cut off value = 300 ng/mL NOTE: This test is used for the detection of oxycodone and oxymorphone in urine. Performed By: #### 2 106-3 #### [facility] ([id number]) [address] [place] [address] PHENCYCLIDINE Negative Normal NEG [facility] Comment on above: Result Comment: Phen cyclidine screening cut off value = 25 ng/mL Performed By: #### 2 106-3 #### [facility] ([id number]) [address] [place] [address] Fibronectin. Ql (Vag fl d)on 06-22-2024 FIBRONECTIN Positive Abnormal NEG [facility] Comment on above: Performed By: #### 2 106-3 #### [facility] ([id number]) [address] [place] [address] STREP B SCREEN CULTUREon S. agalactiae Org specific cx Ql (Vag+Rectum) CULTURE RESULTS POSITIVE FOR GROUP B STREPTOCOCCUS BY NUCLEIC ACID AMPLIFICATION : Group B streptococci remain universally susceptible to penicillin, ampicillin, and cefazolin. Resistance to clindamycin can occur. Please contact laboratory within 48 hr if clindamycin susceptibility testing is needed. Normal [facility] Comment on above: Performed By: #### 2 106-3 #### [facility] ([id number]) [address] [place] [address], [place] [address] URINALYSISon 06-22-2024 Bilirubin Ql (U) Negative Normal NEG [facility] Comment on above: Performed By: #### 2 106-3 #### [facility] ([id number]) [address] [place] [address], [place] [address] BLOOD/HGB MODERATE Abnormal NEG [facility] Comment on above: Performed By: #### 2 106-3 #### [facility] ([id number]) [address] [place] [address], [place] [address] Color (U) YELLOW Normal YELLOW [facility] Comment on above: Performed By: #### 2 106-3 #### [facility] ([id number]) [address] [place] [address], [place] [address] Glucose Ql (U) Negative Normal NEG [facility] Comment on above: Performed By: #### 2 106-3 #### [facility] ([id number]) [address] [place] [address], [place] [address] Ketones Ql (U) >80 Abnormal NEG [facility] Comment on above: Performed By: #### 2 106-3 #### [facility] ([id number]) [address] [place] [address], [place] [address] Leukocyte esterase Test strip Ql (U) Large Abnormal NEG [facility] Comment on above: Performed By: #### 2 106-3 #### [facility] ([id number]) [address] [place] [address], [place] [address] Nitrite Ql (U) Negative Normal NEG [facility] Comment on above: Performed By: #### 2 106-3 #### [facility] ([id number]) [address] [place] [address], [place] [address] pH (U) 7.0 [pH] Normal 5.0-8.5 [facility] Comment on above: Performed By: #### 2 106-3 #### [facility] ([id number]) [address] [place] [address] Protein Ql (U) >300 Abnormal NEG [facility] Comment on above: Performed By: #### 2 106-3 #### [facility] ([id number]) [address] [place] [address] R.B.CELLS 6 /hpf High 0-5 [facility] Comment on above: Performed By: #### 2 106-3 #### [facility] ([id number]) [address] [place] [address] Specific gravity (U) [Rel density] 1.025 Normal 1.003-1.035 [facility] Comment on above: Performed By: #### 2 106-3 #### [facility] ([id number]) [address] [place] [address] SQUAMOUS EPITHELIUM 5 /hpf Normal 0-5 [facility] Comment on above: Performed By: #### 2 106-3 #### [facility] ([id number]) [address] [place] [address] TURBIDITY CLEAR Normal CLEAR [facility] Comment on above: Performed By: #### 2 106-3 #### [facility] ([id number]) [address] [place] [address] Urobilinogen Qn (U) 1.0 {Migue'U}/dL Normal <1.1 [facility] Comment on above: Performed By: #### 2 106-3 #### [facility] ([id number]) [address] [place] [address] W.B.CELLS 11 /hpf High 0-5 [facility] Comment on above: Performed By: #### 2 106-3 #### [facility] ([id number]) [address] [place] [address] URINE CULTUREon 06-22-2024 Bacteria identified Cx Nom (U) CULTURE RESULTS <10,000 ORGANISMS/ML NORMAL URO GENITAL JOHN PAUL Normal [facility] Comment on above: Performed By: #### 2 106-3 #### [facility] ([id number]) [address] [place] [address] VAGINITIS PANEL PCRon 2024 VAGINITIS PANEL PCR [...] clinical presentation to determine patient diagnosis. Normal [facility] Comment on above: Performed By: #### 2 106-3 #### [facility] ([id number]) [address] [place] [address] Urinalysis macro (dipstick) panel (U)on 05-24-2024 Bilirubin, UA Negative Negative - 4(70) +++ mg/dL [facility] Healthcare Blood, UA Positive Negative - 50 Papo/mcL [facility] Clarity, UA Clear [facility] Color, UA Yellow [facility] Glucose, UA Negative Negative - 2000(110) ++++ mg/dL [facility] Interpretation and review of laboratory results Abnormal [facility] Ketones, UA Negative Negative - 160(16) ++++ mg/dL [facility] Leukocytes, UA Negative Negative - 500+++ Akash/mcL [facility] Nitrite, UA Negative Negative - Positive [facility] pH, UA 7 5 - 9 [facility] Protein, UA Trace Negative - 2000(20) ++++ mg/dL [facility] Spec Grav, UA 1.02 1 - 1.03 [facility] Urobilinogen, UA 1.0 0.2 - 12 mg/dL [facility] COMPLETE BLOOD COUNTon 05-13 Erythrocyte distribution width (RBC) [Ratio] 12.9 % Normal 11.5-15.0 [facility] Comment on above: Performed By: #### N UM #### [facility] ([id number]) [address] [place] [address] Hematocrit (Bld) [Volume fraction] 30.2 % Low 35-47 [facility] Comment on above: Performed By: #### N UM #### [facility] ([id number]) [address] [place] [address] 53818 Hemoglobin (Bld) [Mass/Vol] 10.4 g/dL Low 11.7-15.5 [facility] Comment on above: Performed By: #### N UM #### [facility] ([id number]) [address] [place] [address] 60221 MCH (RBC) [Entitic mass] 31.3 pg Normal 27-34 [facility] Comment on above: Performed By: #### N UM #### [facility] ([id number]) [address] [place] [address] 12839 MCHC (RBC) [Mass/Vol] 34.3 g/dL Normal 32-36 [facility] Comment on above: Performed By: #### N UM #### [facility] ([id number]) [address] [place] [address] 69324 MCV (RBC) [Entitic vol] 92 fL Normal 80-100 [facility] Comment on above: Performed By: #### N UM #### [facility] ([id number]) [address] [place] [address] 36042 Platelet mean volume (Bld) [Entitic vol] 8.7 fL Normal 7-12 [facility] Comment on above: Performed By: #### N UM #### [facility] ([id number]) [address] [place] [address] 55899 Platelets (Bld) [#/Vol] 285 10*3/uL Normal 150-450 [facility] Comment on above: Performed By: #### N UM #### [facility] ([id number]) [address] [place] [address] 90341 RBC COUNT 3.31 X10E12/L Low 3.80-5.20 [facility] Comment on above: Performed By: #### N UM #### [facility] ([id number]) [address] [place] [address] 89877 WBC (Bld) [#/Vol] 13.6 10*3/uL High 4.0-11.0 [facility] Comment on above: Performed By: #### N UM #### [facility] ([id number]) [address] [place] [address] 47748 COMPREHENSIVE METABOLIC PANE Baljit 05-13-2024 Albumin [Mass/Vol] 3.3 g/dL Normal 3.2-5.3 [facility] Comment on above: Performed By: #### N UM #### [facility] ([id number]) [address] [place] [address] 14731 ALP [Catalytic activity/Vol] 52 U/L Normal 39-130 [facility] Comment on above: Performed By: #### N UM #### [facility] ([id number]) [address] [place] [address] 26716 ALT [Catalytic activity/Vol] 10 U/L Normal 0-31 [facility] Comment on above: Performed By: #### N UM #### [facility] ([id number]) [address] [place] [address] 25886 Anion gap [Moles/Vol] 9 mmol/L Normal 5-15 [facility] Comment on above: Performed By: #### N UM #### [facility] ([id number]) [address] [place] [address] 02285 AST [Catalytic activity/Vol] 16 U/L Normal 0-41 [facility] Comment on above: Performed By: #### N UM #### [facility] ([id number]) [address] [place] [address] 12533 Bilirubin [Mass/Vol] 0.8 mg/dL Normal 0.3-1.2 [facility] Comment on above: Performed By: #### N UM #### [facility] ([id number]) [address] [place] [address] 63400 Calcium [Mass/Vol] 9.4 mg/dL Normal 8.5-10.5 [facility] Comment on above: Performed By: #### N UM #### [facility] ([id number]) [address] [place] [address] 54255 Chloride [Moles/Vol] 104 mmol/L Normal 98-109 [facility] Comment on above: Performed By: #### N UM #### [facility] ([id number]) [address] [place] [address] [place] [address] CO2 [Moles/Vol] 22 mmol/L Normal 22-32 [facility] Comment on above: Performed By: #### N UM #### [facility] ([id number]) [address] [place] [address] [place] [address] Creatinine [Mass/Vol] 0.63 mg/dL Normal 0.40-1.00 [facility] Comment on above: Result Comment: METH OD TRACEABLE TO IDMS STANDARD Performed By: #### N UM #### [facility] ([id number]) [address] [place] [address] 49517 eGFR (CKD-EPI) NON-RACE DEPENDENT >90 Normal >59 [facility] Comment on above: Result Comment: Reported eGFR is based on the CKD-EPI 2020 equation that does not use a race coefficient. Performed By: #### N UM #### [facility] ([id number]) [address] [place] [address] 53012 Glucose [Mass/Vol] 99 mg/dL Normal 65-99 [facility] Comment on above: Performed By: #### N UM #### [facility] ([id number]) [address] [place] [address] 71144 Potassium [Moles/Vol] 2.8 mmol/L Low 3.5-5.0 [facility] Comment on above: Performed By: #### N UM #### [facility] ([id number]) [address] [place] [address] 41713 Protein [Mass/Vol] 6.9 g/dL Normal 6.0-8.0 [facility] Comment on above: Performed By: #### N UM #### [facility] ([id number]) [address] [place] [address] 51554 Sodium [Moles/Vol] 135 mmol/L Normal 134-146 [facility] Comment on above: Performed By: #### N UM #### [facility] ([id number]) [address] [place] [address] 56806 Urea nitrogen [Mass/Vol] 7 mg/dL Normal 5-23 [facility] Comment on above: Performed By: #### N UM #### [facility] ([id number]) [address] [place] [address] 18743 Fibronectin. Ql (Vag fl d)on 05-13-2024 FIBRONECTIN Negative Normal NEG [facility] Comment on above: Performed By: #### N UM #### [facility] ([id number]) [address] [place] [address], [place] [address] STREP B SCREEN CULTUREon S. agalactiae Org specific cx Ql (Vag+Rectum) CULTURE RESULTS NEGATIVE FOR GROUP B STREPTOCOCCUS BY NUCLEIC ACID AMPLIFICATION Normal [facility] Comment on above: Performed By: #### 2 106-3 #### [facility] ([id number]) [address] [place] [address], [place] [address] URINALYSISon 05-13-2024 Bilirubin Ql (U) Negative Normal NEG [facility] Comment on above: Performed By: #### N UM #### [facility] ([id number]) [address] [place] [address], [place] [address] BLOOD/HGB Trace Abnormal NEG [facility] Comment on above: Performed By: #### N UM #### [facility] ([id number]) [address] [place] [address], [place] [address] Color (U) YELLOW Normal YELLOW [facility] Comment on above: Performed By: #### N UM #### [facility] ([id number]) [address] [place] [address], [place] [address] Glucose Ql (U) Negative Normal NEG [facility] Comment on above: Performed By: #### N UM #### [facility] ([id number]) [address] [place] [address], [place] [address] Ketones Ql (U) Negative Normal NEG [facility] Comment on above: Performed By: #### N UM #### [facility] ([id number]) [address] [place] [address], [place] [address] Leukocyte esterase Test strip Ql (U) Large Abnormal NEG [facility] Comment on above: Performed By: #### N UM #### [facility] ([id number]) [address] [place] [address] 47575 Nitrite Ql (U) Negative Normal NEG [facility] Comment on above: Performed By: #### N UM #### [facility] ([id number]) [address] [place] [address] 80272 pH (U) 7.0 [pH] Normal 5.0-8.5 [facility] Comment on above: Performed By: #### N UM #### [facility] ([id number]) [address] [place] [address] 19292 Protein Ql (U) Negative Normal NEG [facility] Comment on above: Performed By: #### N UM #### [facility] ([id number]) [address] [place] [address] 62396 R.B.CELLS 0 to 1 Normal 0-5 [facility] Comment on above: Performed By: #### N UM #### [facility] ([id number]) [address] [place] [address] 94005 Specific gravity (U) [Rel density] 1.010 Normal 1.003-1.035 [facility] Comment on above: Performed By: #### N UM #### [facility] ([id number]) [address] [place] [address] 68020 SQUAMOUS EPITHELIUM 5 /hpf Normal 0-5 [facility] Comment on above: Performed By: #### N UM #### [facility] ([id number]) [address] [place] [address] 51510 TURBIDITY CLEAR Normal CLEAR [facility] Comment on above: Performed By: #### N UM #### [facility] ([id number]) [address] [place] [address] 01626 Urobilinogen Qn (U) 0.2 {Migue'U}/dL Normal <1.1 [facility] Comment on above: Performed By: #### N UM #### [facility] ([id number]) [address] [place] [address] 38574 W.B.CELLS 5 /hpf Normal 0-5 [facility] Comment on above: Performed By: #### N UM #### [facility] ([id number]) [address] [place] [address] 11810 US BIOPHYSICAL PROFILE FET W O NSTon [...] Bueno MD on 05/13/2024 8:41 AM Normal [facility] No Panel Informationon 05-11 STAPHYLOCOCCUS EPIDERMIDIS, [...] detected [facility] ESCHERICHIA COLI [address] [facility] ESCHERICHIA COLI Not detected [facility] Interpretation and review of laboratory results Abnormal [facility] KLEBSIELLA PNEUMONIAE, OXYTOCA 19.182 Abnormal [facility] KLEBSIELLA PNEUMONIAE, OXYTOCA Detected Abnormal [facility] [...] AGALACTIAE (GROUP B STREP) Not detected [facility] STREPTOCOCCUS PYOGENES (GROUP A STREP) [address] [facility] STREPTOCOCCUS PYOGENES (GROUP A STREP) Not detected [facility] Urinalysis macro (dipstick) panel (U)on 05-10-2024 Bilirubin, UA Negative Negative - 4(70) +++ mg/dL [facility] Blood, UA Negative Negative - 50 Papo/mcL [facility] Clarity, UA Clear [facility] Color, UA Dark Sera [facility] Glucose, UA Negative Negative - 1999(110) ++++ mg/dL [facility] Interpretation and review of laboratory results Abnormal [facility] Ketones, UA Negative Negative - 160(16) ++++ mg/dL [facility] Leukocytes, UA Negative Negative - 500+++ Akash/mcL [facility] Nitrite, UA Positive Negative - Positive [facility] pH, UA 7.5 5 - 9 [facility] Protein, UA Positive Negative - 1999(20) ++++ mg/dL [facility] Comment on above: 30mg/dL Spec Grav, UA 1.02 1 - 1.03 [facility] Urobilinogen, UA 1.0 0.2 - 12 mg/dL [facility] Urinalysis macro (dipstick) panel (U)on 04-12-2024 Bilirubin, UA Negative Negative - 4(70) +++ mg/dL [facility] Blood, UA Negative Negative - 50 Papo/mcL [facility] Clarity, UA Clear [facility] Color, UA Yellow [facility] Glucose, UA Negative Negative - 1999(110) ++++ mg/dL [facility] Interpretation and review of laboratory results Abnormal [facility] Ketones, UA Positive Negative - 160(16) ++++ mg/dL [facility] Leukocytes, UA Negative Negative - 500+++ Akash/mcL [facility] Nitrite, UA Negative Negative - Positive [facility] pH, UA 7 5 - 9 [facility] Protein, UA Negative Negative - 2000(20) ++++ mg/dL [facility] Spec Grav, UA 1.02 1 - 1.03 [facility] Urobilinogen, UA 0.2 0.2 - 12 mg/dL [facility] CHLAMYDIA/GC BY PCRon 2023 CHLAMYDIA/GC [...] are dependent on adequate specimen collection. Normal [facility] Comment on above: Performed By: #### N #### [facility] ([id number]) [address] [place] [address] HIV 1+2 Ab+HIV1 p24 Ag IA Ql on 04-09-2024 HIV 1 and 2 Ab/Ag Screen Non-Reactive Normal NRCT [facility] Comment on above: Result Comment: This [...] results or diagnoses. Performed By: #### N #### [facility] ([id number]) [address] [place] [address] 27348 T. pallidum IgG+IgM IA Ql (S )on 04-09-2024 Syphilis Total <0.2 Normal 0.0-0.8 [facility] Comment on above: Result Comment: NON REACTIVE No serologic evidence of infection to Treponema pallidum (syphilis). Repeat testing may be considered in patients with suspected acute or primary syphilis in 2 to 4 weeks. Performed By: #### N UM #### [facility] ([id number]) [address] [place] [address] 43589 URINALYSISon 04-09-2024 Bilirubin Ql (U) Negative Normal NEG [facility] Comment on above: Performed By: #### N UM #### [facility] ([id number]) [address] [place] [address] 42404 BLOOD/HGB Negative Normal NEG [facility] Comment on above: Performed By: #### N UM #### [facility] ([id number]) [address] [place] [address] 27539 Color (U) YELLOW Normal YELLOW [facility] Comment on above: Performed By: #### N UM #### [facility] ([id number]) [address] [place] [address] 23183 Glucose Ql (U) Negative Normal NEG [facility] Comment on above: Performed By: #### N UM #### [facility] ([id number]) [address] [place] [address] 50753 Ketones Ql (U) Trace Abnormal NEG [facility] Comment on above: Performed By: #### N UM #### [facility] ([id number]) [address] [place] [address] 38426 Leukocyte esterase Test strip Ql (U) Trace Abnormal NEG [facility] Comment on above: Performed By: #### N UM #### [facility] ([id number]) [address] [place] [address] 56688 Nitrite Ql (U) Negative Normal NEG [facility] Comment on above: Performed By: #### N UM #### [facility] ([id number]) [address] [place] [address] 87007 pH (U) 7.0 [pH] Normal 5.0-8.5 [facility] Comment on above: Performed By: #### N UM #### [facility] ([id number]) [address] [place] [address] 34194 Protein Ql (U) Trace Abnormal NEG [facility] Comment on above: Performed By: #### N UM #### [facility] ([id number]) [address] [place] [address] 69206 R.B.CELLS 2 /hpf Normal 0-5 [facility] Comment on above: Performed By: #### N UM #### [facility] ([id number]) [address] [place] [address] 83249 Specific gravity (U) [Rel density] 1.025 Normal 1.003-1.035 [facility] Comment on above: Performed By: #### N UM #### [facility] ([id number]) [address] [place] [address] 79151 SQUAMOUS EPITHELIUM 4 /hpf Normal 0-5 [facility] Comment on above: Performed By: #### N UM #### [facility] ([id number]) [address] [place] [address] 45137 TURBIDITY CLEAR Normal CLEAR [facility] Comment on above: Performed By: #### N UM #### [facility] ([id number]) [address] [place] [address] 03432 Urobilinogen Qn (U) 0.2 {Migue'U}/dL Normal <1.1 [facility] Comment on above: Performed By: #### N UM #### [facility] ([id number]) [address] [place] [address] W.B.CELLS 3 /hpf Normal 0-5 [facility] Comment on above: Performed By: #### N UM #### [facility] ([id number]) [address] [place] [address], [place] [address] No Panel Informationon 04-06 Interpretation and review of laboratory results Abnormal [facility] UA (CLEAN/CATCH) COMPUTER TECHNICAL SUPPORT SPECIALIST/ZHOU RO IF IND.on 04-06-2024 BILIRUBIN URINE Negative NEGATIVE [facility] BLOOD URINE Negative NEGATIVE [facility] Clarity (U) CLEAR CLEAR [facility] Color (U) LT. YELLOW YELLOW [facility] GLUCOSE URINE UA Negative NEGATIVE mg/dL [facility] Ketones Ql (U) Negative NEGATIVE mg/dL [facility] Leukocyte esterase Test strip Ql (U) SMALL Abnormal NEGATIVE [facility] NITRITE URINE Negative NEGATIVE [facility] pH (U) 7.0 [pH] 5.0 - 9.0 [facility] PROTEIN URINE Negative NEG/TRACE mg/dL [facility] SPECIFIC GRAVITY URINE 1.010 1.005 - 1.025 [facility] URINE MICROSCOPIC INDICATED YES [facility] UROBILINOGEN URINE 1.0 EU/dL 0.2 - 1.0 EU/dL [facility] URINE MICROSCOPIC ONLYon 04-06-2024 BACTERIA URINE TRACE Abnormal NONE SEEN #/HPF [facility] CAST SEEN? NONE SEEN NONE SEEN #/LPF [facility] CRYSTALS SEEN? None Seen None Seen #/HPF [facility] MUCUS URINE NONE SEEN NONE SEEN [facility] SQUAMOUS EPITHELIAL CELL URINE FEW Abnormal NONE/RARE #/LPF [facility] RBC 0-2 [facility] WBC 2-5 Abnormal NONE SEEN #/HPF [facility] URINE CULTURE INDICATED YES [facility] Urinalysis macro (dipstick) panel (U)on 03-15-2024 Bilirubin, UA Negative Negative - 4(70) +++ mg/dL [facility] Blood, UA Negative Negative - 50 Papo/mcL [facility] Clarity, UA Clear [facility] Color, UA Yellow [facility] Glucose, UA Negative Negative - 2000(110) ++++ mg/dL [facility] Interpretation and review of laboratory results Abnormal [facility] Ketones, UA Positive Negative - 160(16) ++++ mg/dL [facility] Leukocytes, UA Positive Negative - 500+++ Akash/mcL [facility] Nitrite, UA Positive Negative - Positive [facility] pH, UA 7 5 - 9 [facility] Protein, UA Positive Negative - 2000(20) ++++ mg/dL [facility] Spec Grav, UA 1.02 1 - 1.03 [facility] Urobilinogen, UA 1.0 0.2 - 12 mg/dL [facility] CHLAMYDIA/GC BY PCRon 2023 CHLAMYDIA/GC [...] are dependent on adequate specimen collection. Normal [facility] Comment on above: Performed By: #### C GS #### [facility] ([id number]) [address] [place] [address] 67844 [facility] ([id number]) [address] [place] [address], [address] [place] [address] HCG ( test) Ql (U)o n 02-26-2024 Beta HCG ( test) Ql (U) Positive Abnormal NEG [facility] Comment on above: Performed By: #### 2 106-3 #### [facility] ([id number]) [address] [place] [address] 16444 URINE CULTUREon 02-26-2024 Bacteria identified Cx Nom [...] F TRIMETH/SULFAMETHOXA ZOLE S <=06/13 F Susceptible [facility] Comment on above: Performed By: #### N UM #### [facility] ([id number]) [address] [place] [address] 54159 URN MACROSCOPIC NURon 2023 BILIRUBIN ALEKSANDRA Negative Normal NEG [facility] Comment on above: Performed By: #### N UM #### [facility] ([id number]) [address] [place] [address] 91276 BLOOD/HGB ALEKSANDRA Trace Abnormal NEG [facility] Comment on above: Performed By: #### N UM #### [facility] ([id number]) [address] [place] [address] 90372 GLUCOSE ALEKSANDRA Negative Normal NEG [facility] Comment on above: Performed By: #### N UM #### [facility] ([id number]) [address] [place] [address] 52576 KETONES ALEKSANDRA 80 mg/dL Abnormal NEG [facility] Comment on above: Performed By: #### N UM #### [facility] ([id number]) [address] [place] [address] [place] [address] LEUKOCYTE ESTERASE ALEKSANDRA Negative Normal NEG [facility] Comment on above: Performed By: #### N UM #### [facility] ([id number]) [address] [place] [address] 45695 NITRITE ALEKSANDRA Negative Normal NEG [facility] Comment on above: Performed By: #### N UM #### [facility] ([id number]) [address] [place] [address] 16843 PH ALEKSANDRA 6.0 Normal 5.0-8.5 [facility] Comment on above: Performed By: #### N UM #### [facility] ([id number]) [address] [place] [address] 78286 PROTEIN ALEKSANDRA >=300 Abnormal NEG [facility] Comment on above: Performed By: #### N UM #### [facility] ([id number]) [address] [place] [address] 58082 SPECIFIC GRAVITY ALEKSANDRA >=1.030 Normal 1.003-1.035 [facility] Comment on above: Performed By: #### N UM #### [facility] ([id number]) [address] [place] [address] 68980 UROBILINOGEN ALEKSANDRA 1.0 eu/dL Normal <1.1 [facility] Comment on above: Performed By: #### N UM #### [facility] ([id number]) [address] [place] [address] 19282 VAGINITIS PANEL PCRon 2023 VAGINITIS PANEL PCR [...] clinical presentation to determine patient diagnosis. Normal [facility] Comment on above: Performed By: #### N UM #### [facility] ([id number]) [address] [place] [address] URETHRITIS/DISCHARGE PLUS VA GINITIS (HTRX)on 01-31-2024 ATOPOBIUM VAGINAE 20.240 Abnormal [facility] ATOPOBIUM VAGINAE Detected Abnormal [facility] BVAB 2,3 (BACTERIAL VAGINOSIS ASSOCIATED BACTERIA 2, 3); MOBILUNCUS SPP 14.521 Abnormal [facility] BVAB 2,3 (BACTERIAL VAGINOSIS ASSOCIATED BACTERIA 2, 3); MOBILUNCUS SPP Detected Abnormal [facility] OZZIE ALBICANS, PARAPSILOSIS, TROPICALIS 0.000 [facility] OZZIE ALBICANS, PARAPSILOSIS, TROPICALIS Not detected [facility] OZZIE GLABRATA 0.000 [facility] OZZIE GLABRATA Not detected [facility] OZZIE KRUSEI 0.000 [facility] OZZIE KRUSEI Not detected [facility] CHLAMYDIA TRACHOMATIS 0.000 [facility] CHLAMYDIA TRACHOMATIS Not detected [facility] ERMB, C; MEFA 22.470 Abnormal [facility] ERMB, C; MEFA Detected Abnormal [facility] GARDNERELLA VAGINALIS 25.182 Abnormal [facility] GARDNERELLA VAGINALIS Detected Abnormal [facility] Interpretation and review of laboratory results Abnormal [facility] MEGASPHAERA (TYPES 1, 2) 21.331 Abnormal [facility] MEGASPHAERA (TYPES 1, 2) Detected Abnormal [facility] MYCOPLASMA GENITALIUM 0.000 [facility] MYCOPLASMA GENITALIUM Not detected [facility] NEISSERIA GONORRHOEAE 0.000 [facility] NEISSERIA GONORRHOEAE Not detected N [facility] TET B, TET M 22.938 Abnormal [facility] TET B, TET M Detected Abnormal [facility] TRICHOMONAS VAGINALIS 0.000 [facility] TRICHOMONAS VAGINALIS Not detected N [facility] Urinalysis macro (dipstick) panel (U)on 01-29-2024 Bilirubin, UA Positive Negative - 4(70) +++ mg/dL [facility] Comment on above: small Blood, UA Negative Negative - 50 Papo/mcL [facility] Clarity, UA Cloudy [facility] Color, UA Yellow [facility] Glucose, UA Negative Negative - 2000(110) ++++ mg/dL [facility] [facility]ation [facility] review of laboratory results Abnormal [facility] Ketones, UA Positive Negative - 160(16) ++++ mg/dL [facility] Comment on above: trace Leukocytes, UA Negative Negative - 500+++ Akash/mcL [facility] Nitrite, UA Positive Negative - Positive [facility] pH, UA 6.0 5 - 9 [facility] Protein, UA Trace Negative - 1999(20) ++++ mg/dL [facility] Spec Grav, UA 1.030 1 - 1.03 [facility] Urobilinogen, UA 4.0 0.2 - 12 mg/dL [facility] ALL CBC WITH AUTO DIFFon BASOPHILS ABSOLUTE AUTO 0.0 [facility] Basophils/100 WBC (Bld) 0.3 % 0.2 - 2.0 % [facility] Eosinophils/100 WBC (Bld) 2.3 % 0.9 - 7.0 % [facility] Erythrocyte distribution width (RBC) [Ratio] 12.7 % 11.0 - 15.0 % [facility] Hematocrit (Bld) [Volume fraction] 31.8 % Low 36.0 - 48.0 % [facility] Hemoglobin (Bld) [Mass/Vol] 10.3 g/dL Low 12.0 - 16.0 g/dL [facility] IMMATURE GRANULOCYTES ABS AUTO 0.05 High [facility] Immature granulocytes/100 WBC (Bld) 0.4 % 0.0 - 0.5 % [facility] Interpretation and review of laboratory results Abnormal [facility] LYMPHOCYTES ABSOLUTE AUTO 2.4 [facility] Lymphocytes/100 WBC (Bld) 21.2 % 20.5 - 60.0 % [facility] MCH (RBC) [Entitic mass] 29.9 pg 26.7 - 34.0 pg [facility] MCHC (RBC) [Mass/Vol] 32.4 g/dL 29.9 - 35.2 g/dL [facility] MCV (RBC) [Entitic vol] 92.2 fL 81.0 - 99.0 fL [facility] MONOCYTES ABSOLUTE AUTO 0.8 [facility] Monocytes/100 WBC (Bld) 6.9 % 1.7 - 12.0 % [facility] NEUTROPHILS ABSOLUTE AUTO 8.0 High [facility] Neutrophils/100 WBC (Bld) 68.9 % 43.0 - 75.0 % [facility] Platelet mean volume (Bld) [Entitic vol] 10.9 fL 9.5 - 13.5 fL [facility] TBH EO # 0.3 [facility] PLT 385 [facility] RBC 3.45 Low [facility] TB WBC 11.5 High [facility] AND SCREENon 2023 ABO and Rh group Nom (Bld) Blood group B Rh(D) positive [facility] MLR HEMOGLOBIN A1Con 024 Glucose [Mass/Vol] 82 mg/dL [facility] HbA1c (Bld) [Mass fraction] 4.5 % 4.5 - 6.2 % [facility] Comment on above: ADA RECOMMENDED LIMI T 4.0 - 6.0 ADA THERAPEUTIC TARGET < 7.0 ACTION SUGGESTED > 7.0 [facility] CBC AND AUTO DIFFon 12-20-19 24 ABSOLUTE BASOPHIL 0.1 X10E9/L Normal 0.0-0.2 [facility] Comment on above: Performed By: #### Marco Antonio ATKINSON CMP, #### [facility] ([id number]) [address] [place] [address]3579 ABSOLUTE NEUTROPHIL 11.7 X10E9/L High 1.5-6.6 [facility] Comment on above: Performed By: #### Marco Antonio ATKINSON CMP, #### [facility] ([id number]) [address] [place] [address] 91081 Basophils/100 WBC (Bld) 0.4 % Normal [facility] Comment on above: Performed By: #### Marco Antonio ATKINSON CMP, #### [facility] ([id number]) [address] [place] [address] 72019 Eosinophils (Bld) [#/Vol] 0.3 10*3/uL Normal 0.0-0.4 [facility] Comment on above: Performed By: #### Marco Antonio ATKINSON CMP, #### [facility] ([id number]) [address] [place] [address] 68002 Eosinophils/100 WBC (Bld) 1.6 % Normal [facility] Comment on above: Performed By: #### Marco Antonio ATKINSON [facility], #### [facility] ([id number]) [address] [place] [address] 37191 Erythrocyte distribution width (RBC) [Ratio] 13.0 % Normal 11.5-15.0 [facility] Comment on above: Performed By: #### Marco Antonio ATKINSON [facility], #### [facility] ([id number]) [address] [place] [address] 09336 Hematocrit (Bld) [Volume fraction] 33.1 % Low 35-47 [facility] Comment on above: Performed By: #### Marco Antonio ATKINSON CMP, #### [facility] ([id number]) [address] [place] [address] 86657 Hemoglobin (Bld) [Mass/Vol] 11.1 g/dL Low 11.7-15.5 [facility] Comment on above: Performed By: #### Marco Antonio ATKINSON CMP, #### [facility] ([id number]) [address] [place] [address] 40300 Lymphocytes (Bld) [#/Vol] 2.6 10*3/uL Normal 1.0-3.5 [facility] Comment on above: Performed By: #### Marco Antonio ATKINSON CMP, #### [facility] ([id number]) [address] [place] [address] 58605 Lymphocytes/100 WBC (Bld) 16.5 % Normal [facility] Comment on above: Performed By: #### Marco Antonio ATKINSON CMP, #### [facility] ([id number]) [address] [place] [address] 45903 MCH (RBC) [Entitic mass] 30.3 pg Normal 27-34 [facility] Comment on above: Performed By: #### Marco Antonio ATKINSON CMP, #### [facility] ([id number]) [address] [place] [address] 29594 MCHC (RBC) [Mass/Vol] 33.6 g/dL Normal 32-36 [facility] Comment on above: Performed By: #### Marco Antonio ATKINSON CMP, #### [facility] ([id number]) [address] [place] [address] 32963 MCV (RBC) [Entitic vol] 90 fL Normal 80-100 [facility] Comment on above: Performed By: #### Marco Antonio ATKINSON CMP, #### [facility] ([id number]) [address] [place] [address] 39798 Monocytes (Bld) [#/Vol] 1.2 10*3/uL High 0-0.9 [facility] Comment on above: Performed By: #### Marco Antonio ATKINSON CMP, #### [facility] ([id number]) [address] [place] [address] 64187 Monocytes/100 WBC (Bld) 7.5 % Normal [facility] Comment on above: Performed By: #### Marco Antonio ATKINSON CMP, #### [facility] ([id number]) [address] [place] [address] 01234 Neutrophils/100 WBC (Bld) 74.0 % Normal [facility] Comment on above: Performed By: #### Marco Antonio ATKINSON, CMP, #### [facility] ([id number]) [address] [place] [address] 07004 Platelet mean volume (Bld) [Entitic vol] 9.1 fL Normal 7-12 [facility] Comment on above: Performed By: #### Marco Antonio ATKINSON, CMP, #### [facility] ([id number]) [address] [place] [address] 59649 Platelets (Bld) [#/Vol] 385 10*3/uL Normal 150-450 [facility] Comment on above: Performed By: #### C CHINA CMP, #### [facility] ([id number]) [address] [place] [address] 19484 RBC COUNT 3.67 X10E12/L Low 3.80-5.20 [facility] Comment on above: Performed By: #### C CHINA, CMP, #### [facility] ([id number]) [address] [place] [address] 90405 WBC (Bld) [#/Vol] 15.8 10*3/uL High 4.0-11.0 [facility] Comment on above: Performed By: #### Marco Antonio ATKINSON, CMP, #### [facility] ([id number]) [address] [place] [address] 93007 COMPREHENSIVE METABOLIC PANE [place] 12-20-2023 Albumin [Mass/Vol] 4.2 g/dL Normal 3.2-5.3 [facility] Comment on above: Performed By: #### C CHINA, CMP, #### [facility] ([id number]) [address] [place] [address] 89052 ALP [Catalytic activity/Vol] 39 U/L Normal 39-130 [facility] Comment on above: Performed By: #### C BCA, CMP, #### [facility] ([id number]) [address] [place] [address] 92910 ALT [Catalytic activity/Vol] 14 U/L Normal 0-31 [facility] Comment on above: Performed By: #### C BCA, CMP, #### [facility] ([id number]) [address] [place] [address] 00438 Anion gap [Moles/Vol] 6 mmol/L Normal 5-15 [facility] Comment on above: Performed By: #### C BCA, CMP, #### [facility] ([id number]) [address] [place] [address] 68282 AST [Catalytic activity/Vol] 20 U/L Normal 0-41 [facility] Comment on above: Performed By: #### C BCA, CMP, #### [facility] ([id number]) [address] [place] [address] 99825 Bilirubin [Mass/Vol] 0.6 mg/dL Normal 0.3-1.2 [facility] Comment on above: Performed By: #### C BCA, CMP, #### [facility] ([id number]) [address] [place] [address] 26415 Calcium [Mass/Vol] 8.9 mg/dL Normal 8.5-10.5 [facility] Comment on above: Performed By: #### C BCA, CMP, #### [facility] ([id number]) [address] [place] [address] 54224 Chloride [Moles/Vol] 104 mmol/L Normal 98-109 [facility] Comment on above: Performed By: #### C BCA, CMP, #### [facility] ([id number]) [address] [place] [address] 31630 CO2 [Moles/Vol] 22 mmol/L Normal 22-32 [facility] Comment on above: Performed By: #### C BCA, CMP, #### [facility] ([id number]) [address] [place] [address] 52542 Creatinine [Mass/Vol] 0.56 mg/dL Normal 0.40-1.00 [facility] Comment on above: Result Comment: METH OD TRACEABLE TO IDMS STANDARD Performed By: #### C BCA, CMP, #### [facility] ([id number]) [address] [place] [address] 05978 eGFR (CKD-EPI) NON-RACE DEPENDENT >90 Normal >59 [facility] Comment on above: Result Comment: Reported eGFR is based on the CKD-EPI 2020 equation that does not use a race coefficient. Performed By: #### C CEE ATKINSON, #### [facility] ([id number]) [address] [place] [address] 08592 Glucose [Mass/Vol] 112 mg/dL High 65-99 [facility] Comment on above: Performed By: #### C CEE ATKINSON, #### [facility] ([id number]) [address] [place] [address] 74473 Potassium [Moles/Vol] 3.2 mmol/L Low 3.5-5.0 [facility] Comment on above: Performed By: #### C CEE ATKINSON, #### [facility] ([id number]) [address] [place] [address] 14309 Protein [Mass/Vol] 7.6 g/dL Normal 6.0-8.0 [facility] Comment on above: Performed By: #### C CEE ATKINSON, #### [facility] ([id number]) [address] [place] [address] 12579 Sodium [Moles/Vol] 132 mmol/L Low 134-146 [facility] Comment on above: Performed By: #### C CEE ATKINSON, #### [facility] ([id number]) [address] [place] [address] 85957 Urea nitrogen [Mass/Vol] 9 mg/dL Normal 5-23 [facility] Comment on above: Performed By: #### C CHINA CMP, #### [facility] ([id number]) [address] [place] [address] HCG ( test) Ql (U)o n 12-20-2023 Beta HCG ( test) Ql (U) Positive Abnormal NEG [facility] Comment on above: Performed By: #### 2 106-3 #### [facility] ([id number]) [address] [place] [address] 04813 HCG.beta subunit IA 3rd IS Q non 12-20-2023 [place] [address] m[IU]/mL Normal P [facility] Comment on above: Result Comment: NEW REFERENCE [...] neoplasms. Performed By: #### C BCA, CMP, 88058-2 #### [facility] ([id number]) [address] [place] [address] 08983 URINE CULTUREon 12-20-2023 Bacteria identified Cx Nom (U) CULTURE RESULTS NO GROWTH AT <1000 CFU/mL Normal [facility] Comment on above: Performed By: #### 6 30-4 #### [facility] ([id number]) [address] [address] [place] [address] URN MACROSCOPIC NURon 2023 BILIRUBIN ALEKSANDRA Negative Normal NEG [facility] Comment on above: Performed By: #### N UM #### [facility] ([id number]) [address] [place] [address] [place] [address] BLOOD/HGB ALEKSANDRA Trace Abnormal NEG [facility] Comment on above: Performed By: #### N UM #### [facility] ([id number]) [address] [place] [address], [place] [address] GLUCOSE ALEKSANDRA Negative Normal NEG [facility] Comment on above: Performed By: #### N UM #### [facility] ([id number]) [address] [place] [address] [place] [address] KETONES ALEKSANDRA Negative Normal NEG [facility] Comment on above: Performed By: #### N UM #### [facility] ([id number]) [address] [place] [address] [place] [address] LEUKOCYTE ESTERASE ALEKSANDRA Trace Abnormal NEG [facility] Comment on above: Performed By: #### N UM #### [facility] ([id number]) [address] [place] [address] [place] [address] NITRITE ALEKSANDRA Negative Normal NEG [facility] Comment on above: Performed By: #### N UM #### [facility] ([id number]) [address] [place] [address] [place] [address] PH ALEKSANDRA 6.5 Normal 5.0-8.5 [facility] Comment on above: Performed By: #### N UM #### [facility] ([id number]) [address] [place] [address], [place] [address] PROTEIN ALEKSANDRA Negative Normal NEG [facility] Comment on above: Performed By: #### N UM #### [facility] ([id number]) [address] [place] [address], [place] [address] SPECIFIC GRAVITY ALEKSANDRA 1.010 Normal 1.003-1.035 [facility] Comment on above: Performed By: #### N UM #### [facility] ([id number]) [address] [facility] [place] [address] UROBILINOGEN ALEKSANDRA 1.0 eu/dL Normal <1.1 [facility] Comment on above: Performed By: #### N UM #### [facility] ([id number]) [address] [facility] [place] [address] Hgb Electrophoresison 2023 Hgb Elect.Interp. Normal Hb electrophoretic pattern. HbA = 97.2% HbA2 = 2.8% Normal Values Normal [facility] Comment on above: Result Comment: (Hem oglobin A= 96.8 to 97.8% Hemoglobin A2= 2.2 to 3.2%) Performed By: #### F EBC, HGBE, B12FOL #### [address] [address] Roll Tube Setter: Severino Jacobson MD #### ADELINE [place], FERI #### [facility] [address] [place] [address] Roll Tube Setter: Lukasz Puga MD Pathologist Review: ELECTRONICALLY SIGNED. AUTUMN MENDOZA M.D. [facility] Comment on above: Performed By: #### F EBC, HGBE, B12FOL #### [address] [address] Roll Tube Setter: Severino Jacobson MD #### FINNCT CDP, FERI #### [facility] [address] [place] [address] Roll Tube Setter: Lukasz Puga MD Smear to Pathologiston 12-07 Smear to Pathologist ELECTRONICALLY SIGNED. MITA REGAN M.D. [facility] Comment on above: Performed By: #### P ATH #### [address] [address] Roll Tube Setter: Severino Jacobson MD B12/Folate Panelon Cobalamin (Vitamin B12) [Mass/Vol] 717 pg/mL Normal 232-1245 [facility] Comment on above: Performed By: #### F EBC, HGBE, B12FOL #### [address] [address] Roll Tube Setter: Severino Jacobson MD #### RETCT, CDP, FERI #### [facility] [address] [place] [address] Roll Tube Setter: Lukasz Puga MD Folic Acid 12.2 ng/mL Normal 4.8-24.2 [facility] Comment on above: Performed By: #### F EBC, HGBE, B12FOL #### [address] [address] Roll Tube Setter: Severino Jacobson MD #### RETCT, CDP, FERI #### [facility] [address] [place] [address] Roll Tube Setter: Lukasz Puga MD CBC with Diffon 12-05-2023 Abs. Atypical Lymphs 0.14 k/uL Normal [facility] Comment on above: Performed By: #### F EBC, HGBE, B12FOL #### [address] [address] Roll Tube Setter: Severino Jacobson MD #### RETCT, CDP, FERI #### [facility] [address] [place] [address] Roll Tube Setter: Lukasz Puga MD Abs. Basophil 0.07 k/uL Normal 0.0-0.2 [facility] Comment on above: Performed By: #### F EBC, HGBE, B12FOL #### [address] [address] Roll Tube Setter: Severino Jacobson MD #### RETCT, CDP, FERI #### [facility] [address] [place] [address] Roll Tube Setter: Lukasz Puga MD Abs.Imm.Granulocyte 0.00 k/uL Normal 0.00-0.30 [facility] Comment on above: Performed By: #### F EBC, HGBE, B12FOL #### [address] [address] Roll Tube Setter: Severino Jacobson MD #### RETCT, CDP, FERI #### [facility] [address] [place] [address] Roll Tube Setter: Lukasz Puga MD Abs.Neutrophil (Seg) 2.80 k/uL Normal 1.8-7.[address] [facility] Comment on above: Performed By: #### F EBC, HGBE, B12FOL #### [address] [address] Roll Tube Setter: Severino Jacobson MD #### RETCT, CDP, FERI #### [facility] [address] [place] [address] Roll Tube Setter: Lukasz Puga MD Atypical Lymphs 2 % Normal [facility] Comment on above: Performed By: #### F EBC, HGBE, B12FOL #### [address] [address] Roll Tube Setter: Severino Jacobson MD #### RETCT, CDP, FERI #### [facility] [address] [place] [address] Roll Tube Setter: Lukasz Puga MD Basophils/100 WBC (Bld) 1 % Normal [facility] Comment on above: Performed By: #### F EBC, HGBE, B12FOL #### [address] [address] Roll Tube Setter: Severino Jacobson MD #### RETCT, CDP, FERI #### [facility] [address] [place] [address] Roll Tube Setter: Lukasz Puga MD Eosinophils (Bld) [#/Vol] 0.07 10*3/uL Normal 0.0-0.4 [facility] Comment on above: Performed By: #### F EBC, HGBE, B12FOL #### [address] [address] Roll Tube Setter: Severino Jacobson MD #### RETCT, CDP, FERI #### [facility] [address] [place] [address] Roll Tube Setter: Lukasz Puga MD Eosinophils/100 WBC (Bld) 1 % Normal 1-4 [facility] Comment on above: Performed By: #### F EBC, HGBE, B12FOL #### [address] [address] Roll Tube Setter: Severino Jacobson MD #### RETCT, CDP, FERI #### [facility] [address] [place] [address] Roll Tube Setter: Lukasz Puga MD Immature granulocytes/100 WBC (Bld) 0 % Normal 0 [facility] Comment on above: Performed By: #### F EBC, HGBE, B12FOL #### [address] [address] Roll Tube Setter: Severino Jacobson MD #### RETCT, CDP, FERI #### [facility] [address] [place] [address] Roll Tube Setter: Lukasz Puga MD Lymphocytes (Bld) [#/Vol] 3.29 10*3/uL Normal 1.0-4.8 [facility] Comment on above: Performed By: #### F EBC, HGBE, B12FOL #### [address] [address] Roll Tube Setter: Severino Jacobson MD #### RETCT, CDP, FERI #### [facility] [address] [place] [address] Roll Tube Setter: Lukasz Puga MD Lymphocytes/100 WBC (Bld) 47 % High 24-44 [facility] Comment on above: Performed By: #### F EBC, HGBE, B12FOL #### [address] [address] Roll Tube Setter: Severino Jacobson MD #### VALENCIA, CDP, FERI #### [facility] [address] [place] [address] Roll Tube Setter: Lukasz Puga MD Monocytes (Bld) [#/Vol] 0.63 10*3/uL Normal 0.2-0.8 [facility] Comment on above: Performed By: #### F EBC, HGBE, B12FOL #### [address] [address] Roll Tube Setter: Severino Jacobson MD #### RETCT, CDP, FERI #### [facility] [address] [place] [address] Roll Tube Setter: Lukasz Puga MD Monocytes/100 WBC (Bld) 9 % High 1-7 [facility] Comment on above: Performed By: #### F EBC, HGBE, B12FOL #### [address] [address] Roll Tube Setter: Severino Jacobson MD #### RETCT, CDP, FERI #### [facility] [address] [place] [address] Roll Tube Setter: Lukasz Puga MD Neutrophil (Seg) 40 % Normal 36-66 [facility] Comment on above: Performed By: #### F EBC, HGBE, B12FOL #### [address] [address] Roll Tube Setter: Severino Jacobson MD #### RETCT, CDP, FERI #### [facility] [address] [place] [address] Roll Tube Setter: Lukasz Puga MD Erythrocyte distribution width (RBC) [Ratio] 12.6 % Normal 11.8-14.4 [facility] Comment on above: Performed By: #### F EBC, HGBE, B12FOL #### [address] [address] Roll Tube Setter: Severino Jacobson MD #### RETCT, CDP, FERI #### [facility] [address] [place] [address] Roll Tube Setter: Lukasz Puga MD Hematocrit (Bld) [Volume fraction] 31.0 % Low 36.3-47.1 [facility] Comment on above: Performed By: #### F EBC, HGBE, B12FOL #### [address] [address] Roll Tube Setter: Severino Jacobson MD #### RETCT, CDP, FERI #### [facility] [address] [place] [address] Roll Tube Setter: Lukasz Puga MD Hemoglobin (Bld) [Mass/Vol] 9.9 g/dL Low 11.9-15.1 [facility] Comment on above: Performed By: #### F EBC, HGBE, B12FOL #### [address] [address] Roll Tube Setter: Severino Jacobson MD #### RETCT, CDP, FERI #### [facility] [address] [place] [address] Roll Tube Setter: Lukasz Puga MD MCH (RBC) [Entitic mass] 29.8 pg Normal 25.2-33.5 [facility] Comment on above: Performed By: #### F EBC, HGBE, B12FOL #### [address] [address] Roll Tube Setter: Severino Jacobson MD #### RETCT, CDP, FERI #### [facility] [address] [place] [address] Roll Tube Setter: Lukasz Puga MD MCHC (RBC) [Mass/Vol] 31.9 g/dL Normal 28.4-34.8 [facility] Comment on above: Performed By: #### F EBC, HGBE, B12FOL #### [address] [address] Roll Tube Setter: Severino Jacobson MD #### VALENCIA, CDP, FERI #### [facility] [address] [place] [address] Roll Tube Setter: Lukasz Puga MD MCV (RBC) [Entitic vol] 93.4 fL Normal 82.6-102.9 [facility] Comment on above: Performed By: #### F EBC, HGBE, B12FOL #### [address] [address] Roll Tube Setter: Severino Jacobson MD #### RETCT, CDP, FERI #### [facility] [address] [place] [address] Roll Tube Setter: Lukasz Puga MD NRBC Automated 0.0 per 100 WBC Normal 0.0 [facility] Comment on above: Performed By: #### F EBC, HGBE, B12FOL #### [address] [address] Roll Tube Setter: Severino Jacobson MD #### RETCT, CDP, FERI #### [facility] [address] [place] [address] Roll Tube Setter: Lukasz Puga MD Platelet mean volume (Bld) [Entitic vol] 9.9 fL Normal 8.1-13.5 [facility] Comment on above: Performed By: #### F EBC, HGBE, B12FOL #### [address] [address] Roll Tube Setter: Severino Jacobson MD #### RETCT, CDP, FERI #### [facility] [address] [place] [address] Roll Tube Setter: Lukasz Puga MD Platelets (Bld) [#/Vol] 296 10*3/uL Normal 138-453 [facility] Comment on above: Performed By: #### F EBC, HGBE, B12FOL #### [address] [address] Roll Tube Setter: Severino Jacobson MD #### RETCT, CDP, FERI #### [facility] [address] [place] [address] Roll Tube Setter: Lukasz Puga MD RBC (Bld) [#/Vol] 3.32 10*6/uL Low 3.95-5.11 [facility] Comment on above: Performed By: #### F EBC, HGBE, B12FOL #### [address] [address] Roll Tube Setter: Severino Jacobson MD #### RETCT, CDP, FERI #### [facility] [address] [place] [address] Roll Tube Setter: Lukasz Puga MD WBC (Bld) [#/Vol] 7.0 10*3/uL Normal 3.5-11.3 [facility] Comment on above: Performed By: #### F EBC, HGBE, B12FOL #### [address] [address] Roll Tube Setter: Severino Jacobson MD #### RETCT, CDP, FERI #### [facility] [address] [place] [address] Roll Tube Setter: Lukasz Puga MD Ferritinon 12-05-2023 Ferritin [Mass/Vol] 39 ng/mL Normal 13-150 [facility] Comment on above: Performed By: #### F EBC, HGBE, B12FOL #### [address] [address] Roll Tube Setter: Severino Jacobson MD #### RETCT, CDP, FERI #### [facility] [address] [place] [address] Roll Tube Setter: Lukasz Puga MD Iron Binding Cap.on 12-05-19 24 % Fe Saturation 14 % Low 20-55 [facility] Comment on above: Performed By: #### F EBC, HGBE, B12FOL #### [address] [address] Roll Tube Setter: Severino Jacobson MD #### RETCT, CDP, FERI #### [facility] [address] [place] [address] Roll Tube Setter: Lukasz Puga MD Iron [Mass/Vol] 42 ug/dL Normal 37-145 [facility] Comment on above: Performed By: #### F EBC, HGBE, B12FOL #### [address] [address] Roll Tube Setter: Severino Jacobson MD #### RETCT, CDP, FERI #### [facility] [address] [place] [address] Roll Tube Setter: Lukasz Puga MD Total Fe Binding Cap 310 ug/dL Normal 250-[address] [facility] Comment on above: Performed By: #### F EBC, HGBE, B12FOL #### [address] [address] Roll Tube Setter: Severino Jacobson MD #### RETCT, CDP, FERI #### [facility] [address] [place] [address] Roll Tube Setter: Lukasz Puga MD Unbound Fe Bind Cap 268 ug/dL Normal 112-347 [facility] Comment on above: Performed By: #### F EBC, HGBE, B12FOL #### [address] [address] Roll Tube Setter: Severino Jacobson MD #### FINNCT, CDP, FERI #### [facility] [address] [place] [address] Roll Tube Setter: Lukasz Puga MD Retic Counton 12-05-2023 Absolute Retic 0.062 M/uL Normal 0.030-0.080 [facility] Comment on above: Performed By: #### F EBC, HGBE, B12FOL #### [address] [address] Roll Tube Setter: Severino Jacobson MD #### RETCT, CDP, FERI #### [facility] [address] [place] [address] Roll Tube Setter: Lukasz Puga MD IRF 9.6 % Normal 2.7-18.3 [facility] Comment on above: Performed By: #### F EBC, HGBE, B12FOL #### [address] [id number] Roll Tube Setter: Severino Jacobson MD #### RETCT, CDP, FERI #### [facility] [address] [place] [address] Roll Tube Setter: Lukasz Puga MD Retic Count 1.8 % Normal 0.5-1.9 [facility] Comment on above: Performed By: #### F EBC, HGBE, B12FOL #### [address] [phone] Roll Tube Setter: Severino Jacobson MD #### RETCT, CDP, FERI #### [facility] [address] [place] [address] Roll Tube Setter: Lukasz Puga MD Retic Hemoglobin 28.8 pg Normal 28.2-35.7 [facility] Comment on above: Performed By: #### F EBC, HGBE, B12FOL #### [address] [id number] Roll Tube Setter: Severino Jacobson MD #### RETCT, CDP, FERI #### [facility] [address] [place] [address] [phone] Roll Tube Setter: Lukasz Puga MD Surgical Pathology Reporton 12-05-2023 Surgical Pathology Report (NOTE) [id number] [facility] CONSULTING PATHOLOGISTS [facility] [place] ANATOMIC PATHOLOGY [address] [place] [phone] SURGICAL PATHOLOGY CONSULTATION Patient Name: HOMERO DE LEON MR#: [id number] Specimen #[id number] Procedures/Addenda PERIPHERAL BLOOD REPORT Date Ordered: 12/07/2023 Status: Signed Out Date Complete: 12/08/2023 By: Mita Regan M.D. Date Reported: 12/08/2023 INTERPRETATION Peripheral blood: - Normocytic normochromic anemia with unremarkable red blood cell morphology. - White blood cells with normal morphology. No blasts. - Platelets with unremarkable morphology. RESULTS-COMMENTS PERIPHERAL BLOOD STUDY CBC: Please see the electronic health record for CBC parameters ([id number], 12/05/2023, 13:35). PLATELETS: Platelets show normal morphology. LEUKOCYTES: White blood cells show normal morphology. No atypical lymphocytes. No dysplasia. There are no blasts. ERYTHROCYTES: Normocytic normochromic anemia. Red blood cells show normal morphology. Note: The electronic health record is reviewed. Mita Regan M.D. Source: A: Peripheral Blood Normal [facility] CBC with Diffon 11-06-2023 Abs. Basophil 0.04 k/uL Normal 0.00-0.20 [facility] Comment on above: Performed By: #### C MEGHA MIJARES, LIPRF #### [place] [address] Roll Tube Setter: Severino Jacobson MD Abs.Imm.Granulocyte <0.03 Normal 0.00-0.30 [facility] Comment on above: Performed By: #### C MEGHA MIJARES, LIPRF #### [facility] [employer] [address] [place] [address] Roll Tube Setter: Severino Jacobson MD Abs.Neutrophil (Seg) 4.76 k/uL Normal 1.50-8.10 [facility] Comment on above: Performed By: #### C MEGHA MIJARES, LIPRF #### [facility] [employer] [address] [place] [address] Roll Tube Setter: Severino Jacobson MD Basophils/100 WBC (Bld) 1 % Normal 0-2 [facility] Comment on above: Performed By: #### C MEGHA MIJARES, LIPRF #### [facility] [employer] [facility] [place] [address] Roll Tube Setter: Severino Jacobson MD Eosinophils (Bld) [#/Vol] 0.24 10*3/uL Normal 0.00-0.44 [facility] Comment on above: Performed By: #### C DP, CP, LIPRF #### [address] [address] Roll Tube Setter: Severino Jacobson MD Eosinophils/100 WBC (Bld) 3 % Normal 1-4 [facility] Comment on above: Performed By: #### C DP, CP, LIPRF #### [address] [address] Roll Tube Setter: Severino Jacobson MD Erythrocyte distribution width (RBC) [Ratio] 12.3 % Normal 11.8-14.4 [facility] Comment on above: Performed By: #### C DP, CP, LIPRF #### [address] [address] Roll Tube Setter: Severino Jacobson MD Hematocrit (Bld) [Volume fraction] 35.5 % Low 36.3-47.1 [facility] Comment on above: Performed By: #### C DP, CP, LIPRF #### [address] [address] Roll Tube Setter: Severino Jacobson MD Hemoglobin (Bld) [Mass/Vol] 11.2 g/dL Low 11.9-15.1 [facility] Comment on above: Performed By: #### C DP, CP, LIPRF #### [facility] [employer] [address] [place] [address] Roll Tube Setter: Severino Jacobson MD Immature granulocytes/100 WBC (Bld) 0 % Normal 0 [facility] Comment on above: Performed By: #### C DP, CP, LIPRF #### [address] [address] Roll Tube Setter: Severino Jacobson MD Lymphocytes (Bld) [#/Vol] 2.47 10*3/uL Normal 1.10-3.70 [facility] Comment on above: Performed By: #### C DP, CP, LIPRF #### [place] [address] Roll Tube Setter: Severino Jacobson MD Lymphocytes/100 WBC (Bld) 31 % Normal 24-43 [facility] Comment on above: Performed By: #### C DP, CP, LIPRF #### [place] [address] Roll Tube Setter: Severino Jacobson MD MCH (RBC) [Entitic mass] 29.6 pg Normal 25.2-33.5 [facility] Comment on above: Performed By: #### C DP, CP, LIPRF #### [place] [address] Roll Tube Setter: Severino Jacobson MD MCHC (RBC) [Mass/Vol] 31.5 g/dL Normal 28.4-34.8 [facility] Comment on above: Performed By: #### C DP, CP, LIPRF #### [place] [address] Roll Tube Setter: Severino Jacobson MD MCV (RBC) [Entitic vol] 93.9 fL Normal 82.6-102.9 [facility] Comment on above: Performed By: #### C DP, CP, LIPRF #### [place] [address] Roll Tube Setter: Severino Jacobson MD Monocytes (Bld) [#/Vol] 0.56 10*3/uL Normal 0.10-1.20 [facility] Comment on above: Performed By: #### C DP, CP, LIPRF #### [address] [address] Roll Tube Setter: Severino Jacobson MD Monocytes/100 WBC (Bld) 7 % Normal 3-12 [facility] Comment on above: Performed By: #### C DP, CP, LIPRF #### [address] [address] Roll Tube Setter: Severino Jacobson MD Neutrophil (Seg) 58 % Normal 36-65 [facility] Comment on above: Performed By: #### C DP, CP, LIPRF #### [address] [address] Roll Tube Setter: Severino Jacobson MD NRBC Automated 0.0 per 100 WBC Normal 0.0 [facility] Comment on above: Performed By: #### C DP, CP, LIPRF #### [address] [address] Roll Tube Setter: Severino Jacobson MD Platelet mean volume (Bld) [Entitic vol] 10.5 fL Normal 8.1-13.5 [facility] Comment on above: Performed By: #### C DP, CP, LIPRF #### [address] [address] Roll Tube Setter: Severino Jacobson MD Platelets (Bld) [#/Vol] 501 10*3/uL High 138-453 [facility] Comment on above: Performed By: #### C DP, CP, LIPRF #### [facility] [address] [place] [address] Roll Tube Setter: Severino Jacobson MD RBC (Bld) [#/Vol] 3.78 10*6/uL Low 3.95-5.11 [facility] Comment on above: Performed By: #### C DP, CP, LIPRF #### [address] [address] Roll Tube Setter: Severino Jacobson MD WBC (Bld) [#/Vol] 8.1 10*3/uL Normal 3.5-11.3 [facility] Comment on above: Performed By: #### C DP, CP, LIPRF #### [address] [address] Roll Tube Setter: Severino Jacobson MD Comp Metabolic Profon 2023 Albumin [Mass/Vol] 4.8 g/dL Normal 3.5-5.2 [facility] Comment on above: Performed By: #### C DP, CP, LIPRF #### [address] [address] Roll Tube Setter: Severino Jacobson MD Albumin/Glob Ratio 2.0 Normal 1.0-2.5 [facility] Comment on above: Performed By: #### C DP, CP, LIPRF #### [address] [address] Roll Tube Setter: Severino Jacobson MD Alkaline Phos 43 U/L Normal 35-104 [facility] Comment on above: Performed By: #### C DP, CP, LIPRF #### [address] [address] Roll Tube Setter: Severino Jacobson MD ALT [Catalytic activity/Vol] 14 U/L Normal 10-35 [facility] Comment on above: Performed By: #### C DP, CP, LIPRF #### [facility] [employer] [address] [place] [address] Roll Tube Setter: Severino Jacobson MD Anion gap [Moles/Vol] 10 mmol/L Normal 9-16 [facility] Comment on above: Performed By: #### C DP, CP, LIPRF #### [address] [address] Roll Tube Setter: Severino Jacobson MD AST [Catalytic activity/Vol] 27 U/L Normal 10-35 [facility] Comment on above: Performed By: #### C MEGHA MIJARES, LIPRF #### [address] [address] Roll Tube Setter: Severino Jacobson MD Bilirubin [Mass/Vol] 0.6 mg/dL Normal 0.00-1.20 [facility] Comment on above: Performed By: #### C DP CP, LIPRF #### [facility] [employer] [address] [place] [address] Roll Tube Setter: Severino Jacobson MD Calcium [Mass/Vol] 9.5 mg/dL Normal 8.6-10.4 [facility] Comment on above: Performed By: #### C DYLLAN CP, LIPRF #### [address] [address] Roll Tube Setter: Severino Jacobson MD Chloride [Moles/Vol] 103 mmol/L Normal 98-107 [facility] Comment on above: Performed By: #### C DYLLAN CP, LIPRF #### [address] [address] Roll Tube Setter: Severino Jacobson MD CO2 [Moles/Vol] 26 mmol/L Normal 20-31 [facility] Comment on above: Performed By: #### C DP CP, LIPRF #### [address] [address] Roll Tube Setter: Severino Jacobson MD Creatinine [Mass/Vol] 0.8 mg/dL Normal 0.50-0.90 [facility] Comment on above: Performed By: #### C DYLLAN CP, LIPRF #### [facility] [employer] [address] [place] [address] Roll Tube Setter: Severino Jacobson MD GFR/1.73 sq M.predicted among non-blacks MDRD (S/P/Bld) [Vol rate/Area] mL/min/{1.73_m2} Normal >60 [facility] Comment on above: Result Comment: These [...] renal tubular secretion. Performed By: #### C DP CP, LIPRF #### [address] [address] Roll Tube Setter: Severino Jacobson MD Glucose [Mass/Vol] 90 mg/dL Normal 74-99 [facility] Comment on above: Performed By: #### C DYLLAN CP, LIPRF #### [address] [address] Roll Tube Setter: Severino Jacobson MD Potassium [Moles/Vol] 3.9 mmol/L Normal 3.7-5.3 [facility] Comment on above: Performed By: #### C MEGHA MIJARES, LIPRF #### [address] [address] Roll Tube Setter: Severino Jacobson MD Protein [Mass/Vol] 7.7 g/dL Normal 6.6-8.7 [facility] Comment on above: Performed By: #### C DP CP, LIPRF #### [facility] [employer] [address] [place] [address] Roll Tube Setter: Severino Jacobson MD Sodium [Moles/Vol] 139 mmol/L Normal 136-145 [facility] Comment on above: Performed By: #### C DP CP, LIPRF #### [facility] [employer] [address] [place] [address] Roll Tube Setter: Severino Jacobson MD Urea nitrogen [Mass/Vol] 12 mg/dL Normal 6-20 [facility] Comment on above: Performed By: #### C DP, CP, LIPRF #### [facility] [employer] [address] [place] [address] Roll Tube Setter: Severino Jacobson MD Lipid Prof, Fastingon 2023 Cholesterol [Mass/Vol] 178 mg/dL Normal 0-199 [facility] Comment on above: Result Comment: Cholesterol Guidelines: <200 Desirable 200-240 Borderline >240 Undesirable Performed By: #### C DP, CP, LIPRF #### [address] [address] Roll Tube Setter: Severino Jacobson MD Cholesterol in HDL [Mass/Vol] 50 mg/dL Normal >40 [facility] Comment on above: Result Comment: HDL Guidelines: <40 Undesirable 40-59 Borderline >59 Desirable Performed By: #### C DP, CP, LIPRF #### [place] [address] Roll Tube Setter: Severino Jacobson MD Cholesterol in LDL [Mass/Vol] 115 mg/dL High 0-100 [facility] Comment on above: Result Comment: LDL Guidelines: <100 Desirable 100-129 Near to/above Desirable 130-159 Borderline >159 Undesirable Direct (measured) LDL and calculated LDL are not interchangeable tests. Performed By: #### C DP, CP, LIPRF #### [facility] [employer] [address] [place] [address] Roll Tube Setter: Severino Jacobson MD Cholesterol in VLDL [Mass/Vol] 13 mg/dL Normal [facility] Comment on above: Performed By: #### C DP, CP, LIPRF #### [facility] [employer] [address] [place] [address] Roll Tube Setter: Severino Jacobson MD Cholesterol.total/Chol esterol in HDL [Mass ratio] 4.0 {ratio} Normal [facility] Comment on above: Performed By: #### C DP, CP, LIPRF #### [place] [address] Roll Tube Setter: Severino Jacobson MD Triglyceride,Fasting 64 mg/dL Normal 0-149 [facility] Comment on above: Result Comment: Triglyceride Guidelines: <150 Desirable 150-199 Borderline 200-499 High >499 Very high Based on AHA Guidelines for fasting triglyceride, February 2012. Performed By: #### C DP, CP, LIPRF #### [place] [address] Roll Tube Setter: Severino Jacobson MD CBC with Diffon 09-02-2023 Abs. Basophil <0.03 Normal 0.00-0.20 [facility] Comment on above: Performed By: #### C DP LIPRF, CP #### [place] [address] Roll Tube Setter: Severino Jacobson MD Abs.Imm.Granulocyte <0.03 Normal 0.00-0.30 [facility] Comment on above: Performed By: #### C DP LIPRF, CP #### [place] [address] Roll Tube Setter: Severino Jacobson MD Abs.Neutrophil (Seg) 3.88 k/uL Normal 1.50-8.10 [facility] Comment on above: Performed By: #### C DYLLAN LIPKOURTNEY, CP #### [place] [address] Roll Tube Setter: Severino Jacobson MD Basophils/100 WBC (Bld) 0 % Normal 0-2 [facility] Comment on above: Performed By: #### C DP LIPRF, CP #### [place] [address] Roll Tube Setter: Severino Jacobson MD Eosinophils (Bld) [#/Vol] 0.18 10*3/uL Normal 0.00-0.44 [facility] Comment on above: Performed By: #### C DP LIPRF, CP #### [address] [address] Roll Tube Setter: Severino Jacobson MD Eosinophils/100 WBC (Bld) 3 % Normal 1-4 [facility] Comment on above: Performed By: #### C DP, LIPRF, CP #### [place] [address] Roll Tube Setter: Severino Jacobson MD Erythrocyte distribution width (RBC) [Ratio] 12.6 % Normal 11.8-14.4 [facility] Comment on above: Performed By: #### C DYLLAN LIPRF, CP #### [place] [address] Roll Tube Setter: Severino Jacobson MD Hematocrit (Bld) [Volume fraction] 34.6 % Low 36.3-47.1 [facility] Comment on above: Performed By: #### C DP LIPRF, CP #### [place] [address] Roll Tube Setter: Severino Jacobson MD Hemoglobin (Bld) [Mass/Vol] 10.8 g/dL Low 11.9-15.1 [facility] Comment on above: Performed By: #### C DP LIPRF, CP #### [place] [address] Roll Tube Setter: Severino Jacobson MD Immature granulocytes/100 WBC (Bld) 0 % Normal 0 [facility] Comment on above: Performed By: #### C DP, LIPRF, CP #### [address] [address] Roll Tube Setter: Severino Jacobson MD Lymphocytes (Bld) [#/Vol] 2.64 10*3/uL Normal 1.10-3.70 [facility] Comment on above: Performed By: #### C DP LIPRF, CP #### [facility] [employer] [address] [place] [address] Roll Tube Setter: Severino Jacobson MD Lymphocytes/100 WBC (Bld) 37 % Normal 24-43 [facility] Comment on above: Performed By: #### C DP, LIPRF, CP #### [facility] [employer] [address] [place] [address] Roll Tube Setter: Severino Jacobson MD MCH (RBC) [Entitic mass] 29.7 pg Normal 25.2-33.5 [facility] Comment on above: Performed By: #### C DP LIPRF, CP #### [facility] [employer] [address] [place] [address] Roll Tube Setter: Severino Jacobson MD MCHC (RBC) [Mass/Vol] 31.2 g/dL Normal 28.4-34.8 [facility] Comment on above: Performed By: #### C DP, LIPRF, CP #### [place] [address] Roll Tube Setter: Severino Jacobson MD MCV (RBC) [Entitic vol] 95.1 fL Normal 82.6-102.9 [facility] Comment on above: Performed By: #### C DP LIPRF, CP #### [place] [address] Roll Tube Setter: Severino Jacobson MD Monocytes (Bld) [#/Vol] 0.41 10*3/uL Normal 0.10-1.20 [facility] Comment on above: Performed By: #### C DP, LIPRF, CP #### [address] [address] Roll Tube Setter: Severino Jacobson MD Monocytes/100 WBC (Bld) 6 % Normal 3-12 [facility] Comment on above: Performed By: #### C DP, LIPRF, CP #### [address] [address] Roll Tube Setter: Severino Jacobson MD Neutrophil (Seg) 54 % Normal 36-65 [facility] Comment on above: Performed By: #### C DP, LIPRF, CP #### [address] [address] Roll Tube Setter: Severino Jacobson MD NRBC Automated 0.0 per 100 WBC Normal 0.0 [facility] Comment on above: Performed By: #### C DP, LIPRF, CP #### [address] [address] Roll Tube Setter: Severino Jacobson MD Platelet mean volume (Bld) [Entitic vol] 10.7 fL Normal 8.1-13.5 [facility] Comment on above: Performed By: #### C DP, LIPRF, CP #### [address] [address] Roll Tube Setter: Severino Jacobson MD Platelets (Bld) [#/Vol] 460 10*3/uL High 138-453 [facility] Comment on above: Performed By: #### C DP, LIPRF, CP #### [address] [address] Roll Tube Setter: Severino Jacobson MD RBC (Bld) [#/Vol] 3.64 10*6/uL Low 3.95-5.11 [facility] Comment on above: Performed By: #### C DP, LIPRF, CP #### [address] [address] Roll Tube Setter: Severino Jacobson MD WBC (Bld) [#/Vol] 7.2 10*3/uL Normal 3.5-11.3 [facility] Comment on above: Performed By: #### C DP, LIPRF, CP #### [address] [place] [address] Roll Tube Setter: Severino Jacobson MD Comp Metabolic Profon 2023 Albumin [Mass/Vol] 4.4 g/dL Normal 3.5-5.2 [facility] Comment on above: Performed By: #### C DP, LIPRF, CP #### [facility] [address] [place] [address] Roll Tube Setter: Severino Jacobson MD Albumin/Glob Ratio 2.0 Normal 1.0-2.5 [facility] Comment on above: Performed By: #### C DP, LIPRF, CP #### [facility] [address] [place] [address] Roll Tube Setter: Severino Jacobson MD Alkaline Phos 35 U/L Normal 35-104 [facility] Comment on above: Performed By: #### C DP, LIPRF, CP #### [address] [address] Roll Tube Setter: Severino Jacobson MD ALT [Catalytic activity/Vol] 12 U/L Normal 10-35 [facility] Comment on above: Performed By: #### C DP, LIPRF, CP #### [facility] [address] [place] [address] Roll Tube Setter: Severino Jacobson MD Anion gap [Moles/Vol] 9 mmol/L Normal 9-16 [facility] Comment on above: Performed By: #### C DP, LIPRF, CP #### [facility] [address] [place] [address] Roll Tube Setter: Severino Jacobson MD AST [Catalytic activity/Vol] 25 U/L Normal 10-35 [facility] Comment on above: Performed By: #### C DP, LIPRF, CP #### [facility] [address] [place] [address] Roll Tube Setter: Severino Jacobson MD Bilirubin [Mass/Vol] 0.6 mg/dL Normal 0.00-1.20 [facility] Comment on above: Performed By: #### C FANNIE MIJARES CP #### [address] [address] Roll Tube Setter: Severino Jacobson MD Calcium [Mass/Vol] 8.9 mg/dL Normal 8.6-10.4 [facility] Comment on above: Performed By: #### C FANNIE MIJARES, CP #### [address] [address] Roll Tube Setter: Severino Jacobson MD Chloride [Moles/Vol] 107 mmol/L Normal 98-107 [facility] Comment on above: Performed By: #### C FANNIE MIJARES, CP #### [address] [address] Roll Tube Setter: Severino Jacobson MD CO2 [Moles/Vol] 24 mmol/L Normal 20-31 [facility] Comment on above: Performed By: #### C FANNIE MIJARES CP #### [address] [address] Roll Tube Setter: Severino Jacobson MD Creatinine [Mass/Vol] 0.7 mg/dL Normal 0.50-0.90 [facility] Comment on above: Performed By: #### C FANNIE MIJARES, CP #### [address] [address] Roll Tube Setter: Severino Jacobson MD GFR/1.73 sq M.predicted among non-blacks MDRD (S/P/Bld) [Vol rate/Area] mL/min/{1.73_m2} Normal >60 [facility] Comment on above: Result Comment: These [...] By: #### C FANNIE MIJARES, CP #### [address] [address] Roll Tube Setter: Severino Jacobson MD Glucose [Mass/Vol] 97 mg/dL Normal 74-99 [facility] Comment on above: Performed By: #### C FANNIE MIJARES, CP #### [address] [address] Roll Tube Setter: Severino Jacobson MD Potassium [Moles/Vol] 4.0 mmol/L Normal 3.7-5.3 [facility] Comment on above: Performed By: #### C FANNIE MIJARES, CP #### [address] [address] Roll Tube Setter: Severino Jacobson MD Protein [Mass/Vol] 7.3 g/dL Normal 6.6-8.7 [facility] Comment on above: Performed By: #### C FANNIE MIJARES, CP #### [address] [address] Roll Tube Setter: Severino Jacobson MD Sodium [Moles/Vol] 140 mmol/L Normal 136-145 [facility] Comment on above: Performed By: #### C FANNIE MIJARES, CP #### [address] [address] Roll Tube Setter: Severino Jacobson MD Urea nitrogen [Mass/Vol] 12 mg/dL Normal 6-20 [facility] Comment on above: Performed By: #### C FANNIE MIJARES, CP #### [address] [address] Roll Tube Setter: Severino Jacobson MD Lipid Prof, Fastingon 2023 Cholesterol [Mass/Vol] 164 mg/dL Normal 0-199 [facility] Comment on above: Result Comment: Cholesterol Guidelines: <200 Desirable 200-240 Borderline >240 Undesirable Performed By: #### C DP LIPRF, CP #### [address] [address] Roll Tube Setter: Severino Jacobson MD Cholesterol in HDL [Mass/Vol] 52 mg/dL Normal >40 [facility] Comment on above: Result Comment: HDL Guidelines: <40 Undesirable 40-59 Borderline >59 Desirable Performed By: #### C DP, LIPRF, CP #### [address] [address] Roll Tube Setter: Severino Jacobson MD Cholesterol in LDL [Mass/Vol] 102 mg/dL High 0-100 [facility] Comment on above: Result Comment: LDL Guidelines: <100 Desirable 100-129 Near to/above Desirable 130-159 Borderline >159 Undesirable Direct (measured) LDL and calculated LDL are not interchangeable tests. Performed By: #### C DP, LIPRF, CP #### [address] [address] Roll Tube Setter: Severino Jacobson MD Cholesterol in VLDL [Mass/Vol] 10 mg/dL Normal [facility] Comment on above: Performed By: #### C DP LIPRF, CP #### [place] [address] Roll Tube Setter: Severino Jacobson MD Cholesterol.total/Chol esterol in HDL [Mass ratio] 3.0 {ratio} Normal [facility] Comment on above: Performed By: #### C DP, LIPRF, CP #### [address] [address] Roll Tube Setter: Severino Jacobson MD Triglyceride,Fasting 49 mg/dL Normal 0-149 [facility] Comment on above: Result Comment: Triglyceride Guidelines: <150 Desirable 150-199 Borderline 200-499 High >499 Very high Based on AHA Guidelines for fasting triglyceride, February 2012. Performed By: #### C DP, LIPRF, CP #### [facility] [address] [phone] Roll Tube Setter: Severino Jacobson MD SARS/FLU A+B/RSV by NAAT/Mol [...] operators who are performing tests using either [employer] or [employer] systems and is limited to laboratories that [...] repeat. Fact Sheet for Healthcare Providers: https://www.fda.gov/ media/209266/downloa d Fact Sheet for Patients: https://www.fda.gov/ media/011791/downloa d Normal [facility] Comment on above: Performed By: #### C OVFLR #### [facility] ([id number]) [address] [facility] [place] [address] QuantiFERON TBon 04-14-2023 Quanti Americo minus NIL >10.00 Normal [facility] Comment on above: Performed By: #### A QF #### [employer] [address] [place] [address] Roll Tube Setter: Tai Lopez MD Quanti TB Gold Plus Negative Normal Negative [facility] Comment on above: Result Comment: (NOT [...] Mycobacterium tuberculosis Infection --- [place], 2010 (http://www.cdc.gov/mmwr/preview/mmwrhtml/hd6973k4.htm), for more information concerning test performance in low-prevalence populations and use in occupational screening. Performed By: #### A QF #### [employer] [address] [place] [address] Roll Tube Setter: Tai Lopez MD Quanti TB1 minus NIL 0.10 IU/mL Normal 0.00-0.34 [facility] Comment on above: Performed By: #### A QF #### [facility] [address] [place] [address] Roll Tube Setter: Tai Lopez MD Quanti TB2 minus NIL 0.10 IU/mL Normal 0.00-0.34 [facility] Comment on above: Performed By: #### A QF #### [facility] [address] [place] [address] Roll Tube Setter: Tai Lopez MD QuantiFERON NIL 0.03 IU/mL Normal [facility] Comment on above: Result Comment: (NOT E) Performed By: [facility] [address] [place] [address] [place] [employer]: Royal Banda MD, PhD CLIA Number: [id number] Performed By: #### A QF #### [facility] [address] [place] [address] Roll Tube Setter: Tai Lopez MD CBC with Diffon 04-11-2023 Abs. Basophil 0.05 k/uL Normal 0.00-0.20 [facility] Comment on above: Performed By: #### L IPRF, CDP, PHEP, CP, HIVCMB #### [address] [place] [id number] Roll Tube Setter: Severino Jacobson MD Abs.Imm.Granulocyte 0.03 k/uL Normal 0.00-0.30 [facility] Comment on above: Performed By: #### L IPRF, CDP, PHEP, CP, HIVCMB #### [facility] [employer] [address] [place], [place] [phone] Roll Tube Setter: Severino Jacobson MD Abs.Neutrophil (Seg) 4.20 k/uL Normal 1.50-8.10 [facility] Comment on above: Performed By: #### L IPRF, CDP, PHEP, CP, HIVCMB #### [address] [address] Roll Tube Setter: Severino Jacobson MD Basophils/100 WBC (Bld) 1 % Normal 0-2 [facility] Comment on above: Performed By: #### L IPRF, CDP, PHEP, CP, HIVCMB #### [place] [address] Roll Tube Setter: Severino Jacobson MD Eosinophils (Bld) [#/Vol] 0.36 10*3/uL Normal 0.00-0.44 [facility] Comment on above: Performed By: #### L IPRF, CDP, PHEP, CP, HIVCMB #### [place] [address] Roll Tube Setter: Severino Jacobson MD Eosinophils/100 WBC (Bld) 5 % High 1-4 [facility] Comment on above: Performed By: #### L IPRF, CDP, PHEP, CP, HIVCMB #### [place] [address] Roll Tube Setter: Severino Jacobson MD Erythrocyte distribution width (RBC) [Ratio] 11.6 % Low 11.8-14.4 [facility] Comment on above: Performed By: #### L IPRF, CDP, PHEP, CP, HIVCMB #### [place] [address] Roll Tube Setter: Severino Jacobson MD Hematocrit (Bld) [Volume fraction] 34.3 % Low 36.3-47.1 [facility] Comment on above: Performed By: #### L IPRF, CDP, PHEP, CP, HIVCMB #### [facility] [employer] [address] [place] [address] Roll Tube Setter: Severino Jacobson MD Hemoglobin (Bld) [Mass/Vol] 10.9 g/dL Low 11.9-15.1 [facility] Comment on above: Performed By: #### L IPRF, CDP, PHEP, CP, HIVCMB #### [address] [address] Roll Tube Setter: Severino Jacobson MD Immature granulocytes/100 WBC (Bld) 0 % Normal 0 [facility] Comment on above: Performed By: #### L IPRF, CDP, PHEP, CP, HIVCMB #### [place] [address] Roll Tube Setter: Severino Jacobson MD Lymphocytes (Bld) [#/Vol] 2.55 10*3/uL Normal 1.10-3.70 [facility] Comment on above: Performed By: #### L IPRF, CDP, PHEP, CP, HIVCMB #### [place] [address] Roll Tube Setter: Severino Jacobson MD Lymphocytes/100 WBC (Bld) 33 % Normal 24-43 [facility] Comment on above: Performed By: #### L IPRF, CDP, PHEP, CP, HIVCMB #### [address] [address] Roll Tube Setter: Severino Jacobson MD MCH (RBC) [Entitic mass] 30.1 pg Normal 25.2-33.5 [facility] Comment on above: Performed By: #### L IPRF, CDP, PHEP, CP, HIVCMB #### [place] [address] Roll Tube Setter: Severino Jacobson MD MCHC (RBC) [Mass/Vol] 31.8 g/dL Normal 28.4-34.8 [facility] Comment on above: Performed By: #### L IPRF, CDP, PHEP, CP, HIVCMB #### [address] [address] Roll Tube Setter: Severino Jacobson MD MCV (RBC) [Entitic vol] 94.8 fL Normal 82.6-102.9 [facility] Comment on above: Performed By: #### L IPRF, CDP, PHEP, CP, HIVCMB #### [address] [address] Roll Tube Setter: Severino Jacobson MD Monocytes (Bld) [#/Vol] 0.55 10*3/uL Normal 0.10-1.20 [facility] Comment on above: Performed By: #### L IPRF, CDP, PHEP, CP, HIVCMB #### [address] [address] Roll Tube Setter: Severino Jacobson MD Monocytes/100 WBC (Bld) 7 % Normal 3-12 [facility] Comment on above: Performed By: #### L IPRF, CDP, PHEP, CP, HIVCMB #### [address] [address] Roll Tube Setter: Severino Jacobson MD Neutrophil (Seg) 54 % Normal 36-65 [facility] Comment on above: Performed By: #### L IPRF, CDP, PHEP, CP, HIVCMB #### [address] [address] Roll Tube Setter: Severino Jacobson MD NRBC Automated 0.0 per 100 WBC Normal 0.0 [facility] Comment on above: Performed By: #### L IPRF, CDP, PHEP, CP, HIVCMB #### [address] [address] Roll Tube Setter: Severino Jacobson MD Platelet mean volume (Bld) [Entitic vol] 11.0 fL Normal 8.1-13.5 [facility] Comment on above: Performed By: #### L IPRF, CDP, PHEP, CP, HIVCMB #### [facility] [address] [place] [address] Roll Tube Setter: Severino Jacobson MD Platelets (d) [#/Vol] 382 10*3/uL Normal 138-453 [facility] Comment on above: Performed By: #### L IPRF, CDP, PHEP, CP, HIVCMB #### [facility] [address] [place] [address] Roll Tube Setter: Severino Jacobson MD RBC (Bld) [#/Vol] 3.62 10*6/uL Low 3.95-5.11 [facility] Comment on above: Performed By: #### L IPRF, CDP, PHEP, CP, HIVCMB #### [facility] [employer] [address] [place] [address] Roll Tube Setter: Severino Jacobson MD WBC (Bld) [#/Vol] 7.7 10*3/uL Normal 3.5-11.3 [facility] Comment on above: Performed By: #### L IPRF, CDP, PHEP, CP, HIVCMB #### [facility] [employer] [address] [place] [address] Roll Tube Setter: Severino Jacobson MD Comp Metabolic Profon 2022 Albumin [Mass/Vol] 4.4 g/dL Normal 3.5-5.2 [facility] Comment on above: Performed By: #### L IPRF, CDP, PHEP, CP, HIVCMB #### [facility] [employer] [address] [place] [address] Roll Tube Setter: Severino Jacobson MD Albumin/Glob Ratio 2.0 Normal 1.0-2.5 [facility] Comment on above: Performed By: #### L IPRF, CDP, PHEP, CP, HIVCMB #### [facility] [employer] [address] [place] [phone] Roll Tube Setter: Severino Jacobson MD Alkaline Phos 39 U/L Normal 35-104 [facility] Comment on above: Performed By: #### L IPRF, CDP, PHEP, CP, HIVCMB #### [address] [phone] Roll Tube Setter: Severino Jacobson MD ALT [Catalytic activity/Vol] 10 U/L Normal 10-35 [facility] Comment on above: Performed By: #### L IPRF, CDP, PHEP, CP, HIVCMB #### [address] [phone] Roll Tube Setter: Severino Jacobson MD Anion gap [Moles/Vol] 9 mmol/L Normal 9-16 [facility] Comment on above: Performed By: #### L IPRF, CDP, PHEP, CP, HIVCMB #### [address] [address] Roll Tube Setter: Severino Jacobson MD AST [Catalytic activity/Vol] 22 U/L Normal 10-35 [facility] Comment on above: Performed By: #### L IPRF, CDP, PHEP, CP, HIVCMB #### [address] [address] Roll Tube Setter: Severino Jacobson MD Bilirubin [Mass/Vol] 0.3 mg/dL Normal 0.00-1.20 [facility] Comment on above: Performed By: #### L IPRF, CDP, PHEP, CP, HIVCMB #### [address] [address] Roll Tube Setter: Severino Jacobson MD Calcium [Mass/Vol] 9.3 mg/dL Normal 8.6-10.4 [facility] Comment on above: Performed By: #### L IPRF, CDP, PHEP, CP, HIVCMB #### [facility] [employer] [address] [place] [address] Roll Tube Setter: Severino Jacobson MD Chloride [Moles/Vol] 104 mmol/L Normal 98-107 [facility] Comment on above: Performed By: #### L IPRF, CDP, PHEP, CP, HIVCMB #### [facility] [place] [address] Roll Tube Setter: Severino Jacobson MD CO2 [Moles/Vol] 27 mmol/L Normal 20-31 [facility] Comment on above: Performed By: #### L IPRF, CDP, PHEP, CP, HIVCMB #### [facility] [address] [place] [address] Roll Tube Setter: Severino Jacobson MD Creatinine [Mass/Vol] 0.7 mg/dL Normal 0.50-0.90 [facility] Comment on above: Performed By: #### L IPRF, CDP, PHEP, CP, HIVCMB #### [facility] [address] [place] [address] Roll Tube Setter: Severino Jacobson MD GFR/1.73 sq M.predicted among non-blacks MDRD (S/P/Bld) [Vol rate/Area] mL/min/{1.73_m2} Normal >60 [facility] Comment on above: Result Comment: These [...] L IPRF, CDP, PHEP, CP, HIVCMB #### [facility] [address] [place] [address] Roll Tube Setter: Severino Jacobson MD Glucose [Mass/Vol] 82 mg/dL Normal 74-99 [facility] Comment on above: Performed By: #### L IPRF, CDP, PHEP, CP, HIVCMB #### [facility] [employer] [address] [place] [address] Roll Tube Setter: Severino Jacobson MD Potassium [Moles/Vol] 3.8 mmol/L Normal 3.7-5.3 [facility] Comment on above: Performed By: #### L IPRF, CDP, PHEP, CP, HIVCMB #### [facility] [employer] [address] [place] [address] Roll Tube Setter: Severino Jacobson MD Protein [Mass/Vol] 7.2 g/dL Normal 6.6-8.7 [facility] Comment on above: Performed By: #### L IPRF, CDP, PHEP, CP, HIVCMB #### [address] [address] Roll Tube Setter: Severino Jacobson MD Sodium [Moles/Vol] 140 mmol/L Normal 136-145 [facility] Comment on above: Performed By: #### L IPRF, CDP, PHEP, CP, HIVCMB #### [facility] [employer] [address] [place] [address] Roll Tube Setter: Severino Jacobson MD Urea nitrogen [Mass/Vol] 14 mg/dL Normal 6-20 [facility] Comment on above: Performed By: #### L IPRF, CDP, PHEP, CP, HIVCMB #### [facility] [employer] [address] [place] [address] Roll Tube Setter: Severino Jacobson MD HIV Ag/Abon 04-11-2023 HIV Ag/Ab Non-Reactive Normal NR [facility] Comment on above: Result Comment: No l aboratory evidence of HIV infection. If acute HIV infection is suspected, consider testing for HIV-1 RNA. Performed By: #### C DP, LIPRF, CP #### [facility] [employer] [address] [place] [address] Roll Tube Setter: Severino Jacobson MD Hepatitis Acute [facility] 04-11 Hep A Ab,IgM Non-Reactive Normal [facility] Comment on above: Performed By: #### L IPRF, CDP, PHEP, CP, HIVCMB #### [facility] [address] [place] [address] Roll Tube Setter: Severino Jacobson MD Hep B Core Ab,IgM Non-Reactive Normal [facility] Comment on above: Performed By: #### L IPRF, CDP, PHEP, CP, HIVCMB #### [facility] [employer] [address] [place] [address] Roll Tube Setter: Severino Jacobson MD Hep B Surf Ag Non-Reactive Normal [facility] Comment on above: Performed By: #### L IPRF, CDP, PHEP, CP, HIVCMB #### [facility] [employer] [address] [place] [address] Roll Tube Setter: Severino Jacobson MD Hep C Ab Non-Reactive Normal [facility] Comment on above: Result Comment: The [...] L IPRF, CDP, PHEP, CP, HIVCMB #### [facility] [employer] [address] [place] [address] Roll Tube Setter: Severino Jacobson MD Lipid Prof, Fastingon 2022 Cholesterol [Mass/Vol] 155 mg/dL Normal 0-199 [facility] Comment on above: Result Comment: Cholesterol Guidelines: <200 Desirable 200-240 Borderline >240 Undesirable Performed By: #### C DP, LIPRF, CP #### [facility] [employer] [address] [place] [address] Roll Tube Setter: Severino Jacobson MD Cholesterol in HDL [Mass/Vol] 49 mg/dL Normal >40 [facility] Comment on above: Result Comment: HDL Guidelines: <40 Undesirable 40-59 Borderline >59 Desirable Performed By: #### C DP, LIPRF, CP #### [address] [address] Roll Tube Setter: Severino Jacobson MD Cholesterol in LDL [Mass/Vol] 98 mg/dL Normal 0-100 [facility] Comment on above: Result Comment: LDL Guidelines: <100 Desirable 100-129 Near to/above Desirable 130-159 Borderline >159 Undesirable Direct (measured) LDL and calculated LDL are not interchangeable tests. Performed By: #### C DP, LIPRF, CP #### [facility] [employer] [address] [place] [address] Roll Tube Setter: Severino Jacobson MD Cholesterol in VLDL [Mass/Vol] 8 mg/dL Normal [facility] Comment on above: Performed By: #### C DP LIPRF, CP #### [facility] [address] [place] [address] Roll Tube Setter: Severino Jacobson MD Cholesterol.total/Chol esterol in HDL [Mass ratio] 3.0 {ratio} Normal [facility] Comment on above: Performed By: #### C DP LIPRF, CP #### [facility] [address] [place] [address] Roll Tube Setter: Severino Jacobson MD Triglyceride,Fasting 38 mg/dL Normal 0-149 [facility] Comment on above: Result Comment: Triglyceride Guidelines: <150 Desirable 150-199 Borderline 200-499 High >499 Very high Based on AHA Guidelines for fasting triglyceride, February 2012. Performed By: #### C DP, LIPRF, CP #### [facility] [employer] [address] [place] [address] Roll Tube Setter: Severino Jacobson MD SURGICALon 03-10-2023 SURGICAL [facility] [id number] Assoc. Page 1 of 1 [address] [place] [address] PROC: 03/10/2023 [facility] RECV: 03/13/2023 [address] [facility] RPTD: 03/21/2023 [place] [address] LOC: [facility] ACCT: SEX: F [id number] AGE: 32 Y : 1990 PATHOLOGY REPORT [...] on sections examined. Clinical correlation is recommended. [id number] AILEEN DE LA PAZ M.D., F.C.A.P [facility]/ [facility] Printed on: 03/21/2023 [address] [place], [place] [address] Original print date: 03/21/2023 [facility] US PREG ANATOMY SINGLEon US PREG ANATOMY [...] by: VINICIUS GARCIA Date: 2021-08-06 21:37 Normal [facility] [place] [facility] CULTURE URINEon 04-25-2021 CULTURE URINE Isolate [...] F Trimethoprim/Sulfame thoxazole <=20 S F Normal [facility] [place] [facility] Comment on above: Performed By: #### U RCX ####[facility] [id number] [address]Dr. Purvi Smith HEP B SURFACE ANTIGEN SCREEN on 04-24-2021 HBsAg Screen Negative Normal Negative [facility] [place] [facility] Comment on above: Performed By: #### H BSANS #### [facility] [address] [address] [address] Purvi Smith HIV 1 AND 2 WITH REFLEXon HIV Screen 4th Generation wRfx Non-Reactive Normal Non Reactive [facility] [place] [facility] Comment on above: Performed By: #### H IV12 ####[facility] [address] [place], [place] [address]Dr. Purvi Smith RPR QUANTon 04-24-2021 Rapid Plasma Reagin, Quant Non-Reactive Normal NonRea<1:1 [facility] [place] [facility] Comment on above: Performed By: #### R PRQ #### [facility] [address] [place] [address] Dr. Purvi Smith RUBELLA AB IGGon 04-24-2021 Rubella Antibodies, IgG 1.35 index Normal Immune >0.99 [facility] [place] [facility] Comment on above: Result Comment: Non- immune <0.90 Equivocal 0.90 - 0.99 Immune >0.99 Performed By: #### R UBIGG #### [facility] [address] [place] [address] Dr. Purvi Smith CBC AUTO DIFFon 04-23-2021 BASO # 0.0 103/ul Normal 0.0-0.1 [facility] [place] [facility] Comment on above: Performed By: #### C BC #### [facility] [address] [place] [address] Dr. Purvi Smith Basophils/100 WBC (Bld) 0.3 % Normal 0.2-2.0 [facility] [place] [facility] Comment on above: Performed By: #### C BC #### [facility] [address] [place] [address] Dr. Purvi Smith EO # 0.2 103/ul Normal 0.0-0.7 [facility] [place] [facility] Comment on above: Performed By: #### C BC #### [facility] [address] [place] [address] Dr. Purvi Smith Eosinophils/100 WBC (Bld) 2.1 % Normal 0.9-7.0 [facility] [place] [facility] Comment on above: Performed By: #### C BC #### [facility] [address] [place] [address] Dr. Purvi Smith Erythrocyte distribution width (RBC) [Ratio] 12.1 % Normal 11.0-15.0 [facility] [place] [facility] Comment on above: Performed By: #### C BC #### [facility] [address] [place] [address] Dr. Purvi Smith Hematocrit (Bld) [Volume fraction] 32.3 % Critically low 36.0-48.0 [facility] [place] [facility] Comment on above: Performed By: #### C BC #### [facility] [address] [place] [address] Dr. Purvi Smith Hemoglobin (Bld) [Mass/Vol] 10.6 g/dL Critically low 12.0-16.0 [facility] [place] [facility] Comment on above: Performed By: #### C BC #### [facility] [address] [place] [address] Dr. Purvi Smith IG # 0.04 10e3/ul Critically high 0.00-0.03 [facility] Comment on above: Performed By: #### C BC #### [facility] [address] [place] [address] Dr. Purvi Smith IG % 0.3 % Normal 0.0-0.5 [facility] [place] [facility] Comment on above: Performed By: #### C BC #### [facility] [address] [place] [address] Dr. Purvi Smith LYMPH # 2.1 103/ul Normal 1.2-3.8 [facility] [place] [facility] Comment on above: Performed By: #### C BC #### [facility] [address] [address] [address] Purvi Smith Lymphocytes/100 WBC (Bld) 17.9 % Critically low 20.5-60.0 [facility] [place] [facility] Comment on above: Performed By: #### C BC #### [facility] [address] [address] [address] Purvi Smith MANUAL DIFF REQ NO Normal [facility] Comment on above: Performed By: #### C BC #### [facility] [address] [place] [address] Dr. Purvi Smith MCH (RBC) [Entitic mass] 30.2 pg Normal 26.7-34.0 [facility] Comment on above: Performed By: #### C BC #### [facility] [address] [place] [address] Dr. Purvi Smith MCHC (RBC) [Mass/Vol] 32.8 g/dL Normal 29.9-35.2 [facility] Comment on above: Performed By: #### C BC #### [facility] [address] [place] [address] Dr. Purvi Smith MCV (RBC) [Entitic vol] 92.0 fL Normal 81.0-99.0 [facility] Comment on above: Performed By: #### C BC #### [facility] [address] [place] [address] Dr. Purvi Smith MONO # 0.8 103/ul Normal 0.3-0.8 [facility] Comment on above: Performed By: #### C BC #### [facility] [address] [place] [address] Dr. Purvi Smith Monocytes/100 WBC (Bld) 6.6 % Normal 1.7-12.0 [facility] Comment on above: Performed By: #### C BC #### [facility] [address] [place] [place] [address] Dr. Purvi Smith NEUT # 8.5 103/ul Critically high 1.4-6.5 [facility] Comment on above: Performed By: #### C BC #### [facility] [address] [address] [address] Purvi Smith Neutrophils/100 WBC (Bld) 72.8 % Normal 43.0-75.0 [facility] Comment on above: Performed By: #### C BC #### [facility] [address] [address] [address] Purvi Smith Platelet mean volume (Bld) [Entitic vol] 10.0 fL Normal 9.5-13.5 [facility] Comment on above: Performed By: #### C BC #### [facility] [address] [address] [address] Purvi Smith PLT 361 103/ul Normal 150-450 [facility] Comment on above: Performed By: #### C BC #### [facility] [address] [address] [address] Purvi Smith RBC 3.51 106/ul Critically low 4.20-5.40 [facility] Comment on above: Performed By: #### C BC #### [facility] [address] [address] [address] Purvi Smith WBC 11.7 103/ul Critically high 4.0-11.0 [facility] Comment on above: Performed By: #### C BC #### [facility] [address] [address] [address] Purvi Smith GLYCOHEMOGLOBIN A1Con 2020 ADA RECOMMENDATION ADA THERAPEUTIC TARGET 6.0 - 7.0 ACTION SUGGESTED > 7.0 Normal [facility] Comment on above: Performed By: #### A 1C #### [facility] [address] [address] [address] Purvi Smith Glucose [Mass/Vol] 88 mg/dL Normal [facility] Comment on above: Performed By: #### A 1C #### [facility] [address] [address] [address] Purvi Smith HbA1c (Bld) [Mass fraction] 4.7 % Normal <=6.0 [facility] Comment on above: Performed By: #### A 1C #### [facility] [address] [address] [address] Purvi FELDMAN BOX TEST PT SEND OUTo n 04-23-2021 SENT TO REF LAB 04/23/2021 Normal [facility] Comment on above: Performed By: #### N BOX #### [facility] [address] [address] [address] Purvi Smith TYPE AND SCREENon 04-23-2021 TYPE AND SCREEN Negative Normal [facility] Comment on above: Performed By: #### T NS #### [facility] [address] [address] [address] Purvi Smith US PREG TVon 03-30-2021 [...] Clinical age: 8 weeks 0 days Clinical USRYA: 11/09/2021 Ultrasound age: 8 weeks 2 days Ultrasound SURYA: 11/07/2021 IMPRESSION: Viable clark intrauterine gestation measuring 8 weeks 2 days Electronically authenticated by: VINICIUS GARCIA Date: 2021-03-30 10:06 Normal [facility] CBC AUTO DIFFon 03-16-2021 BASO # 0.0 103/ul Normal 0.0-0.1 [facility] Comment on above: Performed By: #### C BC #### [facility] [address] [place] [address] Dr. Purvi Smith Basophils/100 WBC (Bld) 0.3 % Normal 0.2-2.0 [facility] Comment on above: Performed By: #### C BC #### [facility] [address] [place] [address] Dr. Purvi Smith EO # 0.2 103/ul Normal 0.0-0.7 [facility] Comment on above: Performed By: #### C BC #### [facility] [address] [place] [address] Dr. Purvi Smith Eosinophils/100 WBC (Bld) 1.9 % Normal 0.9-7.0 [facility] Comment on above: Performed By: #### C BC #### [facility] [address] [place] [address] Dr. Purvi Smith Erythrocyte distribution width (RBC) [Ratio] 11.9 % Normal 11.0-15.0 [facility] Comment on above: Performed By: #### C BC #### [facility] [address] [place] [address] Dr. Purvi Smith Hematocrit (Bld) [Volume fraction] 31.5 % Critically low 36.0-48.0 [facility] Comment on above: Performed By: #### C BC #### [facility] [address] [place] [address] Dr. Purvi Smith Hemoglobin (Bld) [Mass/Vol] 10.3 g/dL Critically low 12.0-16.0 [facility] Comment on above: Performed By: #### C BC #### [facility] [address] [place] [address] Dr. Purvi Smith IG # 0.04 10e3/ul Critically high 0.00-0.03 [facility] Comment on above: Performed By: #### C BC #### [facility] [address] [place] [address] Dr. Purvi Smith IG % 0.4 % Normal 0.0-0.5 [facility] Comment on above: Performed By: #### C BC #### [facility] [address] [place] [address] Dr. Purvi Smith LYMPH # 2.3 103/ul Normal 1.2-3.8 [facility] Comment on above: Performed By: #### C BC #### [facility] [address] [place] [address] Dr. Purvi Smith Lymphocytes/100 WBC (Bld) 21.5 % Normal 20.5-60.0 [facility] Comment on above: Performed By: #### C BC #### [facility] [address] [place] [address] Dr. Purvi Smith MANUAL DIFF REQ NO Normal [facility] Comment on above: Performed By: #### C BC #### [facility] [address] [place] [address] Dr. Purvi Smith MCH (RBC) [Entitic mass] 30.2 pg Normal 26.7-34.0 [facility] Comment on above: Performed By: #### C BC #### [facility] [address] [place] [address] Dr. Purvi Smith MCHC (RBC) [Mass/Vol] 32.7 g/dL Normal 29.9-35.2 [facility] Comment on above: Performed By: #### C BC #### [facility] [address] [place] [address] Dr. Purvi Smith MCV (RBC) [Entitic vol] 92.4 fL Normal 81.0-99.0 [facility] Comment on above: Performed By: #### C BC #### [facility] [address] [place] [address] Dr. Purvi Smith MONO # 0.9 103/ul Critically high 0.3-0.8 [facility] Comment on above: Performed By: #### C BC #### [facility] [address] [place] [address] Dr. Purvi Smith Monocytes/100 WBC (Bld) 8.4 % Normal 1.7-12.0 [facility] Comment on above: Performed By: #### C BC #### [facility] [address] [place] [address] Dr. Purvi Smith NEUT # 7.3 103/ul Critically high 1.4-6.5 [facility] Comment on above: Performed By: #### C BC #### [facility] [address] [place] [address] Dr. Purvi Smith Neutrophils/100 WBC (Bld) 67.5 % Normal 43.0-75.0 [facility] Comment on above: Performed By: #### C BC #### [facility] [address] [place] [address] Dr. Purvi Smith Platelet mean volume (Bld) [Entitic vol] 10.4 fL Normal 9.5-13.5 [facility] Comment on above: Performed By: #### C BC #### [facility] [address] [place] [address] Dr. Purvi Smith PLT 362 103/ul Normal 150-450 [facility] Comment on above: Performed By: #### C BC #### [facility] [address] [address] [address] Purvi Smith RBC 3.41 106/ul Critically low 4.20-5.40 [facility] Comment on above: Performed By: #### C BC #### [facility] [address] [place] [address] Dr. Purvi Smith WBC 10.8 103/ul Normal 4.0-11.0 [facility] Comment on above: Performed By: #### C BC #### [facility] [address] [place] [address] Dr. Purvi Smith PROF CHEM 8 (BAS METB)on Anion gap [Moles/Vol] 10.6 mmol/L Normal [facility] Comment on above: Performed By: #### B MP #### [facility] [address] [place] [address] Dr. Purvi Smith Calcium [Mass/Vol] 9.2 mg/dL Normal 8.4-10.2 [facility] Comment on above: Performed By: #### B MP #### [facility] [address] [place] [address] Dr. Purvi Smith Chloride [Moles/Vol] 103 mmol/L Normal 98-107 [facility] Comment on above: Performed By: #### B MP #### [facility] [address] [place] [address] Dr. Purvi Smith CO2 [Moles/Vol] 25.5 mmol/L Normal 22.0-30.[address] [facility] Comment on above: Performed By: #### B MP #### [facility] [address] [place] [address] Dr. Purvi Smith Creatinine [Mass/Vol] 0.61 mg/dL Normal 0.52-1.04 [facility] Comment on above: Performed By: #### B MP #### [facility] [address] [address] [address] Purvi Smith EGFR-AF BAHAMIAN >60 Normal >=[address] [facility] Comment on above: Performed By: #### B MP #### [facility] [address] [address] [address] Purvi Smith EGFR-NON AF BAHAMIAN >60 Normal >=60 [facility] Comment on above: Performed By: #### B MP #### [facility] [address] [address] [address] Purvi Smith Glucose [Mass/Vol] 80 mg/dL Normal 74-106 [facility] Comment on above: Performed By: #### B MP #### [facility] [address] [place] [address] Dr. Purvi Smith Potassium [Moles/Vol] 3.1 mmol/L Critically low 3.4-5.0 [facility] Comment on above: Performed By: #### B MP #### [facility] [address] [place] [address] Dr. Purvi Smith Sodium [Moles/Vol] 136 mmol/L Critically low 137-145 [facility] Comment on above: Performed By: #### B MP #### [facility] [address] [place] [address] Dr. Purvi Smith Urea nitrogen [Mass/Vol] 11.0 mg/dL Normal 7.0-17.0 [facility] Comment on above: Performed By: #### B MP #### [facility] [address] [place] [address] Dr. Purvi Smith Urea nitrogen/Creatinine [Mass ratio] 18.0 mg/mg Normal [facility] Comment on above: Performed By: #### B MP #### [facility] [address] [place] [address] Dr. Purvi Smith Vital Signs Date Time Vital Sign Value Performing Clinician Facility 07-15-2024 11:28-0500 Body mass index (BMI) [Ratio] 28.86 kg/m2 Shakir Steph DO Work Phone: [facility] 07-15-2024 11:28-0500 Body weight 76.26 kg Shakir Steph DO Work Phone: [facility] 07-15-2024 11:28-0500 Diastolic blood pressure 68 mm[Hg] Shakir Steph DO Work Phone: [facility] 07-15-2024 11:28-0500 Systolic blood pressure 120 mm[Hg] Shakir Steph DO Work Phone: [facility] 07-08-2024 15:22-0500 Body mass index (BMI) [Ratio] 28.15 kg/m2 Shakir Steph DO Work Phone: [facility] 07-08-2024 15:22-0500 Body weight 74.39 kg Shakir Steph DO Work Phone: [facility] 07-08-2024 15:22-0500 Diastolic blood pressure 80 mm[Hg] Shakir Steph DO Work Phone: [facility] 07-08-2024 15:22-0500 Systolic blood pressure 116 mm[Hg] Shakir Steph DO Work Phone: [facility] 06-23-2024 10:56-0500 Body mass index (BMI) [Ratio] 28.32 kg/m2 Sophia KYLE Work Phone: [facility] 06-23-2024 10:56-0500 Body weight 74.84 kg Sophia KYLE Work Phone: [facility] 06-23-2024 10:56-0500 Diastolic blood pressure 80 mm[Hg] Sophia KYLE Work Phone: [facility] 06-23-2024 10:56-0500 Systolic blood pressure 128 mm[Hg] Sophia KYLE Work Phone: [facility] 06-09-2024 11:35-0500 Body mass index (BMI) [Ratio] 28.69 kg/m2 Shakir Steph DO Work Phone: [facility] 06-09-2024 11:35-0500 Body weight 75.81 kg Shakir Steph DO Work Phone: [facility] 06-09-2024 11:35-0500 Diastolic blood pressure 74 mm[Hg] Shakir Steph DO Work Phone: [facility] 06-09-2024 11:35-0500 Systolic blood pressure 114 mm[Hg] Shakir Steph DO Work Phone: [facility] 05-24-2024 13:21-0500 Body mass index (BMI) [Ratio] 28.63 kg/m2 Sophia KYLE Work Phone: [facility] 05-24-2024 13:21-0500 Body weight 75.66 kg Sophia KYLE Work Phone: [facility] 05-24-2024 13:21-0500 Diastolic blood pressure 80 mm[Hg] Sophia KYLE Work Phone: [facility] 05-24-2024 13:21-0500 Systolic blood pressure 116 mm[Hg] Sophia KYLE Work Phone: [facility] 05-10-2024 13:14-0500 Body mass index (BMI) [Ratio] 28.32 kg/m2 Shakir Steph DO Work Phone: [facility] 05-10-2024 13:14-0500 Body weight 74.84 kg Shakir Steph DO Work Phone: [facility] 05-10-2024 13:14-0500 Diastolic blood pressure 66 mm[Hg] Shakir Steph DO Work Phone: [facility] 05-10-2024 13:14-0500 Systolic blood pressure 106 mm[Hg] Shakir Steph DO Work Phone: [facility] 05-05-2024 10:30-0500 Body height 162.6 cm Ifrah Díaz MD Work Phone: [facility] 05-05-2024 10:30-0500 Body mass index (BMI) [Ratio] 28.21 kg/m2 Ifrah Díaz MD Work Phone: [facility] 05-05-2024 10:30-0500 Body weight 74.57 kg Ifrah Díaz MD Work Phone: [facility] 05-05-2024 10:30-0500 Diastolic blood pressure 68 mm[Hg] Ifrah Díaz MD Work Phone: [facility] 05-05-2024 10:30-0500 Heart rate 90 /min Ifrah Díaz MD Work Phone: [facility] 05-05-2024 10:30-0500 Systolic blood pressure 120 mm[Hg] Ifrah Díaz MD Work Phone: [facility] 04-12-2024 13:58-0500 Body mass index (BMI) [Ratio] 28.63 kg/m2 Sophia KYLE Work Phone: [facility] 04-12-2024 13:58-0500 Body weight 75.66 kg Sophia Galo PA Work Phone: [facility] 04-12-2024 13:58-0500 Diastolic blood pressure 70 mm[Hg] Sophia Galo PA Work Phone: [facility] 04-12-2024 13:58-0500 Systolic blood pressure 120 mm[Hg] Sophia Galo PA Work Phone: [facility] 03-15-2024 10:53-0400 Body mass index (BMI) [Ratio] 27.77 kg/m2 Shakir Setph DO Work Phone: [facility] 03-15-2024 10:53-0400 Body weight 73.39 kg Shakir Steph DO Work Phone: [facility] 03-15-2024 10:53-0400 Diastolic blood pressure 72 mm[Hg] Shakir Steph DO Work Phone: [facility] 03-15-2024 10:53-0400 Systolic blood pressure 110 mm[Hg] Shakir Steph DO Work Phone: [facility] 02-06-2024 15:11-0400 Diastolic blood pressure 63 mm[Hg] Stv [address] [facility] 02-06-2024 15:11-0400 Heart rate 89 /min [facility] 02-06-2024 15:11-0400 Systolic blood pressure 97 mm[Hg] Stv [address] [facility] 02-06-2024 14:22-0400 Respiratory rate 16 /min Stv 11 [facility] 01-29-2024 11:52-0400 Body mass index (BMI) [Ratio] 27.64 kg/m2 Shakir Steph DO Work Phone: [facility] 01-29-2024 11:52-0400 Body weight 73.03 kg Shakir Steph DO Work Phone: [facility] 01-29-2024 11:52-0400 Diastolic blood pressure 74 mm[Hg] Shakir Steph DO Work Phone: [facility] 01-29-2024 11:52-0400 Systolic blood pressure 112 mm[Hg] Shakir Steph DO Work Phone: [facility] Healthcare Encounters Encounter Date Encounter Type Care Provider Facility Start: 07-16-2024 End: 07-16-2024 Clinisync Result Encounter Sophia KYLE Work Phone: [facility] External Department Unsolicited Start: 07-16-2024 End: 07-16-2024 Clinisync Result Encounter Sophia KYLE Work Phone: [facility] External Department Unsolicited Start: 07-15-2024 End: 07-15-2024 Bamboo flowsheet Shakir Steph DO Work Phone: [facility] Start: 07-15-2024 End: 07-15-2024 Bamboo flowsheet Shakir Steph DO Work Phone: [facility] Start: 07-15-2024 End: 07-15-2024 flow sheet Shakir Steph DO Work Phone: [facility] Comment on above: 36 weeks gestation o f ; Third trimester ; H/O precipitous labor and deliveries, antepartum, third trimester Start: 07-15-2024 End: 07-15-2024 ambulatory SHAKIR STEPH Not Available Start: 07-11-2024 End: 07-11-2024 Clinisync Result Encounter [...] External Department Unsolicited Start: 07-08-2024 End: 07-08-2024 Office outpatient visit 15 minutes Shakir Steph DO Work Phone: [facility] Comment on above: Third trimester preg yenny; 35 weeks gestation of Start: 07-08-2024 End: 07-08-2024 ambulatory SHAKIR STEPH Not Available Start: 07-08-2024 End: 07-08-2024 Bamboo flowsheet Shakir Steph DO Work Phone: [facility] Start: 07-08-2024 End: 07-13-2024 Bamboo flowsheet Shakir Steph DO Work Phone: [facility] Start: 07-08-2024 End: 07-13-2024 Clinisync Result Encounter Shakir Steph DO Work Phone: [facility] External Department Unsolicited Start: 06-23-2024 End: 06-23-2024 Bamboo flowsheet Sophia KYLE Work Phone: [facility] Start: 06-23-2024 End: 06-23-2024 Bamboo flowsheet Sophia KYLE Work Phone: [facility] Start: 06-23-2024 End: 06-23-2024 Clinisync Result Encounter Shakir Steph DO Work Phone: [facility] External Department Unsolicited Start: 06-23-2024 End: 06-23-2024 Office outpatient visit 15 minutes Sophia KYLE Work Phone: [facility] Comment on above: Third trimester preg yenny; 33 weeks gestation of ; Urinary tract infection with hematuria, site unspecified Start: 06-23-2024 End: 06-23-2024 ambulatory SOPHIA GALO Not Available Start: 06-22-2024 End: 06-22-2024 ambulatory [facility] Start: 06-09-2024 End: 06-09-2024 Bamboo flowsheet Shakir Steph DO Work Phone: [facility] Start: 06-09-2024 End: 06-09-2024 Bamboo flowsheet Shakir Steph DO Work Phone: [facility] Start: 06-09-2024 End: 06-09-2024 ambulatory SHAKIR STEPH Not Available Start: 06-09-2024 End: 06-09-2024 Office outpatient visit 15 minutes Shakir Steph DO Work Phone: [facility] Comment on above: 31 weeks gestation o f ; Second trimester ; Right club foot; Premature uterine contractions, antepartum Start: 06-03-2024 End: 06-03-2024 [facility] Start: 05-24-2024 End: 05-24-2024 Bamboo flowsheet Sophia KYLE Work Phone: [facility] Start: 05-24-2024 End: 05-24-2024 Bamboo flowsheet Sophia KYLE Work Phone: [facility] Start: 05-24-2024 End: 05-24-2024 Office outpatient visit 15 minutes Sophia KYLE Work Phone: [facility] Comment on above: 29 weeks gestation o f ; Third trimester ; SGA (small for gestational age) Start: 05-24-2024 End: 05-24-2024 ambulatory SOPHIA GALO Not Available Start: 05-13-2024 End: 05-13-2024 ambulatory [facility] Start: 05-10-2024 End: 05-10-2024 Bamboo flowsheet Shakir Steph DO Work Phone: [facility] Start: 05-10-2024 End: 05-11-2024 Bamboo flowsheet Shakir Steph DO Work Phone: [facility] Start: 05-10-2024 End: 05-11-2024 External Result Encounter Shakir Steph DO Work Phone: [facility] External Department Unsolicited Start: 05-10-2024 End: [...] MD Work Phone: [facility] Comment on above: Club foot of fetus a ffecting antepartum care of mother, other fetus (Primary Dx); Placenta previa in second trimester; Suspected problem with placenta not found; History of delivery, currently ; History of drug overdose; History of placental abruption; Anxiety and depression; 26 weeks gestation of Start: 05-05-2024 End: 05-05-2024 ambulatory SHAKIR R STEPH [facility] Comment on above: Club foot of fetus a ffecting antepartum care of mother, other fetus (Primary Dx); Placenta previa in second trimester; Suspected problem with placenta not found; History of delivery, currently ; History of drug overdose Start: 04-12-2024 End: 04-12-2024 Bamboo flowsheet Sophia KYLE Work Phone: [facility] Start: 04-12-2024 End: 04-12-2024 Bamboo flowsheet Sophia KYLE Work Phone: [facility] Start: 04-12-2024 End: 04-12-2024 Office outpatient visit 15 minutes Sophia KYLE Work Phone: [facility] Comment on above: Bacterial vaginosis (Primary Dx); 23 weeks gestation of ; Second trimester ; Diabetes mellitus screening Start: 04-12-2024 End: 04-12-2024 ambulatory SOPHIA GALO Not Available Start: 04-09-2024 End: 04-09-2024 ambulatory [facility] Start: 04-06-2024 End: 04-06-2024 Clinisync Result Encounter Shakir Steph DO Work Phone: [facility] External Department Unsolicited Start: 04-06-2024 End: 04-06-2024 Clinisync Result Encounter Shakir Steph DO Work Phone: [facility] External Department Unsolicited Start: 03-15-2024 End: 03-15-2024 Bamboo flowsheet Shakir Steph DO Work Phone: [facility] Start: 03-15-2024 End: 03-15-2024 Bamboo flowsheet Shakir Steph DO Work Phone: [facility] Start: 03-15-2024 End: 03-15-2024 Office outpatient visit 15 minutes Shakir Steph DO Work Phone: [facility] Comment on above: Second trimester pre gnancy; 17 weeks gestation of ; UTI symptoms Start: 03-15-2024 End: 03-15-2024 ambulatory SHAKIR STEPH Not Available Start: 02-26-2024 End: 02-26-2024 Emergency department patient visit [facility] Start: 02-06-2024 End: 02-06-2024 ambulatory BOBBI Keira [facility] Start: 02-06-2024 End: 02-06-2024 Subsequent hospital visit by physician Clarita Burt [facility] Chair [facility] Comment on above: Iron deficiency anem ia, unspecified iron deficiency anemia type (Primary Dx) Start: 01-30-2024 End: 01-30-2024 ambulatory JOSSUE Crockett [facility] Start: 01-29-2024 End: 01-29-2024 Bamboo flowsheet [...] End: 12-20-2023 Emergency department patient visit VINICIUS [facility]ern [facility] Start: 12-05-2023 End: 12-05-2023 ambulatory BENSON DIAL [facility] Start: 11-24-2023 End: 11-24-2023 Emergency department patient visit VINICIUS Fernandes [facility] Start: 11-21-2023 End: 11-21-2023 Telephone encounter Amber [facility] Comment on above: Appointment Due Start: 11-06-2023 End: 11-06-2023 ambulatory BERNIE [facility] Start: 09-08-2023 End: 09-08-2023 Telephone encounter Amber [facility] Comment on above: appointment due Start: 09-02-2023 End: 09-02-2023 ambulatory [facility] Start: 07-17-2023 End: 07-17-2023 Emergency department patient visit VINICIUS Fernandes [facility] Start: 04-11-2023 End: 04-11-2023 [facility] Start: 03-12-2023 ambulatory BENSON [facility] Start: 09-10-2021 End: 09-10-2021 Subsequent hospital visit [...] Date Procedure Procedure Detail Performing Clinician Start: 07-16-2024 US OB BPP W NON-STRESS Sophia KYLE Work Phone: Start: 07-15-2024 Urnls dip stick/tabl et rgnt non-auto w/o micrscp Shakir Steph DO Work Phone: Start: 07-11-2024 [facility] UA (CLEAN/CATCH) COMPUTER TECHNICAL SUPPORT SPECIALIST/MICRO IF IND. Shakir Steph DO Work Phone: Start: 07-09-2024 US OB BPP W NON-STRESS Sophia KYLE Work Phone: Start: 07-08-2024 Urnls dip stick/tabl et rgnt non-auto w/o micrscp Shakir Steph DO Work Phone: Start: 07-08-2024 ALL MISCELLANEOUS TEST Shakir Choi DO Work Phone: Start: 06-23-2024 US OB BPP W NON-STRESS Shakir Steph DO Work Phone: Start: 06-23-2024 Urnls dip stick/tabl et rgnt non-auto w/o micrscp Sophia KYLE Work Phone: Start: 05-24-2024 Urnls dip stick/tabl et rgnt non-auto w/o micrscp Sophia KYLE Work Phone: Start: 05-10-2024 URINARY TRACT INFECT ION (HTRX) Shakir Choi DO Work Phone: Start: 05-10-2024 Urnls dip stick/tabl et rgnt non-auto w/o micrscp Shakir Steph DO Work Phone: Start: 04-12-2024 Urnls dip stick/tabl et rgnt non-auto w/o micrscp Shakir Steph DO Work Phone: Start: 04-06-2024 [facility] UA (CLEAN/CATCH) COMPUTER TECHNICAL SUPPORT SPECIALIST/MICRO IF IND. 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 Start: 08-21-2021 Microscopic observat ion [Identifier] in Cervix by Cyto stain Stv 3 Plan of Treatment Date Care Activity Detail Author Start: 05-05-2025 Adult BMI Screening Adult BMI Screen ing [facility] Start: 05-05-2025 Tobacco Screening Tobacco Screening [facility] Start: 05-05-2025 End: 05-05-2025 US MFM with or without consult US MFM with or without consult Imaging Routine 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, other fetus Placenta previa in second trimester Suspected problem with placenta not found History of delivery, currently History of drug overdose Expected: 05/05/2025 (Approximate), Expires: 05/05/2025 [employer] Work Phone: Comment on above: Expected: 05/05/2025 (Approximate), Expires: 05/05/2025 Start: 09-02-2024 End: 09-02-2024 ambulatory 09/02/2024 11:10 AM EDT Visit [facility] [address] [place] [id number] Shakir Choi, DO [address] [place] [address] [facility] Start: 08-21-2024 Screening for malign ant neoplasm of cervix [facility] Start: 07-17-2024 Adult BMI Screening Adult BMI Screen ing [facility] Start: 07-17-2024 Tobacco Screening Tobacco Screening [facility] Start: 07-15-2024 End: 07-15-2024 Patient encounter procedure [facility] Comment on above: Arrived Start: 07-08-2024 End: 07-08-2025 CULTURE, GROUP B STREP WITH SUSCEPTIBLITY CULTURE, GROUP B STREP WITH SUSCEPTIBLITY Lab Routine Third trimester 35 weeks gestation of Expected: 07/08/2024, Expires: 07/08/2025 [facility] Work Phone: Comment on above: Expected: 07/08/2024 , Expires: 07/08/2025 Start: 07-08-2024 End: 07-08-2024 Patient encounter procedure 07/08/2024 10:40 AM EST Routine [facility] [address] [place] [id number] Shakir Choi, DO [address] [place] [address] [facility] Start: 06-23-2024 End: 06-23-2024 Patient encounter procedure [facility] Comment on above: Arrived Start: 06-12-2024 Respiratory Syncytia l Virus (RSV) or age 60 yrs+ (1 - Risk 1-dose series) Respiratory Syncytial Virus (RSV) or age 60 yrs+ (1 - Risk 1-dose series) [facility] Start: 06-09-2024 End: 06-09-2024 Patient encounter procedure 06/09/2024 11:20 AM EST Routine [facility] [address] [place] [id number] Shakir Choi, DO [address] [place] [address] [facility] Start: 06-03-2024 End: 06-03-2024 Patient encounter procedure 06/03/2024 2:15 PM EST Appointment [facility] [address] [place] [address] [facility] Start: 05-24-2024 End: 05-24-2025 US biophysical profile w non stress test US biophysical profile w non stress test Imaging Routine 29 weeks gestation of Third trimester SGA (small for gestational age) Expected: 05/24/2024 (Approximate), Expires: 05/24/2025 [facility] Comment on above: Expected: 05/24/2024 [...] AM EST Routine [facility] [address] [place] [address] Sophia Galo PA [address] [place] [address] [facility] Start: 04-12-2024 End: 04-12-2025 [...] mellitus screening Expected: 04/12/2024 (Approximate), Expires: 04/12/2025 [facility] Comment on above: Expected: 04/12/2024 (Approximate), Expires: 04/12/2025 Start: 04-01-2024 End: 04-01-2024 Telemedicine consultation with patient 04/01/2024 4:00 PM EST Telemedicine [facility] [id number] [place], [place] [id number] Jossue Swain MD [address] [place] [id number] 3 month f/u [facility] Comment on above: 3 month f/u Start: 03-15-2024 End: 03-15-2024 Patient encounter procedure 03/15/2024 10:00 AM EDT Routine [facility] [address] [facility] [place] [address] Shakir Choi DO [address] [place] [address] Arrived [facility] Comment on above: Arrived Start: 02-26-2024 End: 02-26-2024 Patient encounter procedure 02/26/2024 9:40 AM EDT Routine [facility] [address] [place] [address] Sophia Galo PA [address] [place] [address] [facility] Start: 01-29-2024 End: 01-29-2024 Patient encounter procedure 01/29/2024 10:40 AM EDT Routine [facility] [address] [place] [address] Shakir Choi, DO [address] [place] [address] [facility] Start: 01-25-2024 COVID-19 Vaccine ( season) COVID-19 Vaccine ( season) [facility] Start: 01-25-2024 COVID-19 Vaccine ( season) COVID-19 Vaccine ( season) [facility] Start: 01-25-2024 Influenza vaccination N [facility] Start: 12-25-2023 Influenza vaccination Flu vaccine (# 1) [facility] Start: 04-25-2023 Depression Screening Depression Scre [facility] Start: 01-24-2023 COVID-19 Vaccine ( season) COVID-19 Vaccine ( season) [facility] Start: 11-11-2022 DTaP,Tdap and Td Vaccines (7 - Td or Tdap) DTaP,Tdap and Td Vaccines (7 - Td or Tdap) [facility] Start: 11-11-2022 DTaP/Tdap/Td vaccine (7 - Td or Tdap) DTaP/Tdap/Td vaccine (7 - Td or Tdap) [facility] Start: 2022 Screening for malign ant neoplasm of cervix [facility] Start: 01-24-2022 Influenza vaccination Flu vacc ine (Season Ended) [facility] Start: 10-01-2021 End: 10-01-2021 Patient encounter procedure 10/01/2021 Routine Obstetrics and Gynecology Kristel De Leon N, DO [address] [place] [address] [facility] [employer] [place] Start: 09-04-2021 End: 09-04-2021 Patient encounter procedure 09/04/2021 Routine Obstetrics and Gynecology Anisha Lucas DO [address] [place] [address] [facility] [employer] [place] Start: 01-24-2021 Influenza vaccination Flu vaccine (# 1) [facility] Start: 08-03-2019 Varicella vaccine (2 of 2 - 13+ 2-dose series) Varicella vaccine (2 of 2 - 13+ 2-dose series) [facility] Start: 07-28-2019 Hepatitis B vaccine (3 of 3 - 19+ 3-dose series) Hepatitis B vaccine (3 of 3 - 19+ 3-dose series) [facility] Start: 2013 Screening for malign ant neoplasm of cervix Pap smear [facility] Start: 09-21-2011 DTaP/Tdap/Td vaccine (1 - Tdap) DTaP/Tdap/Td vaccine (1 - Tdap) [facility] Start: 2010 Adult BMI Follow Up Plan Adult BMI Follow Up Plan [facility] Start: 2010 Hepatitis C screening Hepatitis C [facility] Start: 2004 Depression Screen Depression Screen [facility] Start: 1997 COVID-19 Vaccine (1) COVID-19 Vaccin e (1) [facility] Start: 1993 Varicella vaccine (1 of 2 - 2-dose childhood series) Varicella vaccine (1 of 2 - 2-dose childhood series) [facility] Start: 1992 Hepatitis C screening Hepatitis C [facility] Bacteria identified in Urine by Culture Urine culture Microbiology Routine UTI symptoms Ordered: 03/15/2024 [facility] Work Phone: Comment on above: Ordered: 03/15/2024 Bacteria identified in Urine by Culture Urine culture Microbiology Routine 27 weeks gestation of Urinary tract infection without hematuria, site unspecified Ordered: 05/10/2024 [facility] Work Phone: Comment on above: Ordered: 05/10/2024 Bacteria identified in Urine by Culture Urine culture Microbiology Routine Urinary tract infection without hematuria, site unspecified Ordered: 01/29/2024 [facility] Work Phone: Comment on above: Ordered: 01/29/2024 Hemoglobin A1c/Hemoglobin.total in Blood Hemoglobin A1c Lab Routine 29 weeks gestation of Third trimester SGA (small for gestational age) Ordered: 05/24/2024 [facility] Comment on above: Ordered: 05/24/2024 Immunizations Immunization Date Immunization Notes Care Provider Walter mahmood 08-06-2019 Influenza, injectabl e, Madin [place] Canine Kidney, preservative free, quadrivalent [facility] 08-06-2019 influenza virus vaccine, unspecified formulation [facility] 07-06-2019 tuberculin skin test ; purified protein derivative solution, intradermal [facility] 07-06-2019 varicella virus vaccine [facility] 03-01-2019 hepatitis B vaccine, adult dosage [facility] 01-27-2019 hepatitis B vaccine, adult dosage [facility] 11-11-2012 tetanus toxoid, redu lucrecia diphtheria toxoid, and acellular pertussis vaccine, adsorbed [facility] 06-11-2012 influenza, seasonal, injectable [facility] 01-01-2005 measles, mumps and rubella virus vaccine [facility] 01-01-2005 poliovirus vaccine, inactivated [facility] 01-01-2005 TD(adult) unspecifie d formulation [facility] 05-02-1995 diphtheria, tetanus toxoids and acellular pertussis vaccine, unspecified formulation [facility] 03-22-1994 diphtheria, tetanus toxoids and acellular pertussis vaccine, unspecified formulation [facility] 03-22-1994 haemophilus influenz ae type b vaccine, conjugate unspecified formulation [facility] 03-22-1994 measles, mumps and rubella virus vaccine [facility] 03-22-1994 poliovirus vaccine, unspecified formulation [facility] 07-27-1993 diphtheria, tetanus toxoids and acellular pertussis vaccine, unspecified formulation [facility] 07-27-1993 haemophilus influenz ae type b vaccine, conjugate unspecified formulation [facility] 07-27-1993 hepatitis B vaccine, pediatric or pediatric/adolescent dosage [facility] 07-27-1993 poliovirus vaccine, unspecified formulation Amber [facility] 1992 diphtheria, tetanus toxoids and acellular pertussis vaccine, unspecified formulation Amber [facility] 1992 haemophilus influenz ae type b vaccine, conjugate unspecified formulation [facility] 1992 hepatitis B vaccine, pediatric or pediatric/adolescent [facility] poliovirus vaccine, unspecified formulation [facility] 1992 hepatitis B vaccine, pediatric or pediatric/adolescent dosage [facility] Payers Date Payer Category Payer Medicaid (Managed Care) [employer] [id number] 2003 Medicaid [id number] 2003 Medicaid HMO [employer] [id number] 1992 Unknown [id number] 2.16.840.1.664509.3.579.2. 593 1992 Unknown [id number] 2.16.840.1.108118.3.579.2. 593 1992 Unknown [id number] 2.16840.1.337148.3.579.2. 593 1992 Unknown [id number] 2.16.840.1.931739.3.579.2. 593 1992 Unknown [id number] 2.16840.1.136140.3.579.2. 593 1992 Unknown [id number] 2.16840.1.881456.3.579.2. 93 1992 Unknown [id number] 2.16.840.1.221454.3.579.2. 177 1992 Unknown [id number] 2.16840.1.618331.3.579.2. 175 1992 Unknown [id number] 2.16840.1.456403.3.579.2. 175 1992 Unknown [id number] 2.16.840.1.474385.3.579.2. 175 1992 Unknown [id number] 2.16840.1.933816.3.579.2. 175 1992 Unknown [id number] 2.16.840.1.797033.3.579.2. 175 1992 Unknown [id number] 2.16.840.1.750259.3.579.2. 1286 1992 Unknown [id number] 2.16.840.1.179553.3.579.2. 1285 1992 Unknown [id number] 2.840.1.419563.3.579.2. 1285 1992 Unknown [id number] 2.840.1.274597.3.579.2. 1285 1992 Unknown [id number] 2.840.1.588341.3.579.2. 1285 1992 Unknown [id number] 2.840.1.799266.3.579.2. 1285 1992 Unknown [id number] 2.0.1.910668.3.579.2. 1285 1992 Unknown [id number] 2.0.1.623338.3.579.2. 1285 1992 Unknown [id number] 2..1.380792.3.579.2. 1285 1992 Unknown [id number] 2..1.711857.3.579.2. 1285 1992 Unknown [id number] 2..1.306962.3.579.2. 1258 1992 Unknown [id number] 2..1.691306.3.579.2. 1258 1992 Unknown [id number] 2.1.075405.3.579.2. 1258 1992 Unknown [id number] 2.840.1.645704.3.579.2. 1258 1992 Unknown [id number] 2.840.1.227816.3.579.2. 1258 1992 Unknown [id number] 2.840.1.029581.3.579.2. 1258 1992 Unknown [id number] 2.840.1.350613.3.579.2. 1258 1992 Unknown [id number] 2840.1.371393.3.579.2. 1259 1992 Unknown [id number] 2.16.840.1.218757.3.579.2. 1259 1992 Unknown [id number] 2.16.840.1.948553.3.579.2. 1259 1959 Self-pay [id number] 1959 Unknown [id number] Unknown [id number] 2.16.840.1.342270.3.579.2. 593 Social History Date Type Detail Facility Start: 06-23-2012 End: 01-01-2024 Tobacco smoking status [facility] Never smoked tobacco [facility] Phone: Start: 06-23-2012 End: 01-01-2024 Tobacco use and exposure Smokeless tobacco non-user [facility] Phone: Start: 08-21-2021 End: 07-15-2024 Alcohol intake Lifetime non-drinker (finding) [facility] Phone: Start: 08-21-2021 History SDOH Alcohol Frequency 1 [facility] Phone: Start: 02-16-2021 [employer] Work Phone: Start: 1990 [facility] Start: 09-01-2021 End: 09-04-2021 Tobacco smoking status [facility] Ex-smoker [facility] Start: 09-04-2021 End: 05-05-2024 Alcohol intake Ex-drinker (finding) [facility] Phone: Start: 07-06-2020 End: 01-01-2024 History of Social function [facility] Start: 07-06-2020 End: 01-01-2024 Tobacco use panel [facility] Start: 1990 Sex assigned at Female [facility] History of tobacco use Current smoker [facility] Start: 07-17-2023 Alcoholic beverage intake Current drinker of alcohol (finding) [facility] Adolescent depressio n screening assessment 0 [facility] The thought of krishan jeronimo myself has occurred to me Never [facility] Start: 05-01-2018 Alcohol Comment once a month / couple glasses of wine [facility] Has the electric, [employer] s, oil, or water company threatened to shut off services in your home in past 12Mo No [facility] Start: 12-29-2014 Sex Female (finding) [facility] Goals Date Patient Goal Desired Activity /State Personal health goal Clinical Notes 09-08-2023 to 07-15-2024 Juan Miguel Christensen, [facility] - 07/15/2024 11:20 AM Ingrid Christensen, [facility] - 07/08/2024 2:40 PM ANABELLA Geller - 06/23/2024 10:40 AM Jenelle Nunez, [facility] - 06/09/2024 11:20 AM EST Note Date & Type Note Facility 07-15-2024 History of Presen t illness Narrative Reason [...] weeks gestation of 05/10/2024 Second trimester 05/10/2024 35 weeks gestation of 07/08/2024 Resolved Ambulatory Problems Diagnosis Date Noted No Resolved Ambulatory Problems Past Medical History: Diagnosis Date Anxiety Asthma ([facility]) Chlamydia Depression ([facility]) History of miscarriage Iron deficiency anemia SAB (spontaneous ) UTI (urinary tract infection) HISTORY PAST MEDICAL HISTORY SOCIAL HISTORY Past Medical History: Diagnosis Date Anxiety Asthma ([facility]) Chlamydia Depression ([facility]) History of miscarriage Iron [...] nursing note reviewed. Exam conducted with a gig tender present. Vitals: Estimated body mass index is 28.86 kg/m as calculated from the following: Height as of 03/03/23: 5' 4 . Weight as of this encounter: 168 lb 1.9 oz. BP: 120/68 Patient's last menstrual period was 11/01/2023. ASSESSMENT & PLAN ICD-10-CM 1. 36 weeks gestation of Z3A.36 POCT urinalysis dipstick manually resulted 2. Third trimester Z34.93 POCT urinalysis dipstick manually resulted 3. H/O precipitous labor and deliveries, antepartum, third trimester O09.293 Patient presents today for a routine obstetrics appointment. Patient is currently 36w5d with a Estimated Date of Delivery: 08/07/24. Patient signed consent today for IOL on 07/22/24; Dr. Choi called [facility] and ensured patient was placed on the books for IOL. Nursing will send IOL packet and Episode to [facility]. Patient is being induced due to history of precipitous labor. Patient to setup appointment fo r6 weeks post prior to leaving office. Patient aware to enter through ER entrance on 07/22/24 @0500 to be directed to [facility] for induction of labor. Documented by Juan Miguel Christensen LPN on behalf of: Shakir Choi DO documented in this encounter [facility] 07-08-2024 History of Presen t illness Narrative Reason [...] Past Medical History: Diagnosis Date Anxiety Asthma ([facility]) Chlamydia Depression ([facility]) History of miscarriage Iron deficiency anemia SAB (spontaneous ) UTI (urinary tract infection) HISTORY PAST MEDICAL HISTORY SOCIAL HISTORY Past Medical History: Diagnosis Date Anxiety Asthma (CMS/HCC) Chlamydia Depression ([facility]) History of miscarriage Iron [...] Constitutional: Appearance: Normal appearance. She is well-developed. Genitourinary: Vulva normal. Cardiovascular: Rate and Rhythm: Normal rate and [...] nursing note reviewed. Exam conducted with a gig tender present. Vitals: Estimated body mass index is 28.32 kg/m as calculated from the following: Height as of 03/03/23: 5' 4 . Weight as of 06/23/24: 165 lb. BP: Patient's last menstrual period was 11/01/2023. ASSESSMENT & PLAN Patient is doing well but has complaints of being tired and having maternal discomfort due to . Patient verbalized frequent movement and was instructed to perform kick counts three times per day. labor precautions were given, LARC consent was signed/declined, and GBS was obtained. Follow Up: Patient is to return to office in 1 week for routine OB appointment Documented by Juan Miguel Christensen LPN on behalf of: Shakir Choi DO documented in this encounter [facility] 06-23-2024 History of Presen t illness Narrative [...] Diagnosis Date Anxiety Asthma (CMS/HCC) Chlamydia Depression ([facility]) History of miscarriage Iron deficiency anemia SAB (spontaneous ) UTI (urinary tract infection) HISTORY PAST MEDICAL HISTORY SOCIAL HISTORY Past Medical History: Diagnosis Date Anxiety Asthma (CMS/HCC) Chlamydia Depression ([facility]) History of miscarriage Iron [...] having contractions on 06/20/2024 and went to [facility] for evaluation pt states she was given IV fluids and the contractions went away. On 06/22/2024 pt states she went to [facility] due to contractions again @ 7-10 [...] of: ANABELLA Gleason documented in this encounter [facility] 06-09-2024 History of Presen t illness [...] Past Medical History: Diagnosis Date Anxiety Asthma ([facility]) Chlamydia Depression ([facility]) History of miscarriage Iron deficiency anemia SAB (spontaneous ) UTI (urinary tract infection) HISTORY PAST MEDICAL HISTORY SOCIAL HISTORY Past Medical History: Diagnosis Date Anxiety Asthma ([facility]) Chlamydia Depression ([facility]) History of miscarriage Iron [...] nursing note reviewed. Exam conducted with a gig tender present. Vitals: Estimated body mass index is [...] Shakir Choi DO documented in this encounter [facility] 05-24-2024 History of Presen t illness [...] was seen and admitted to hospital in [place] when she was on [facility] stating they [...] of: ANABELLA Gleason documented in this encounter [facility] 05-10-2024 History of Presen t illness [...] nursing note reviewed. Exam conducted with a gig tender present. Vitals: Estimated body mass index is [...] a day. Is doing growth ultrasounds at [facility] on 06/03/ will start here after, NST/BPP at 32 weeks. Rx for macrobid faxed to pharmacy. Orders Placed This Encounter Procedures Urine culture POCT urinalysis dipstick manually resulted Follow Up: Patient is to return to office in 2 week for routine OB appointment. Documented by Ct Nunez LPN on behalf of: Sophia Galo PA-C documented in this encounter [facility] 05-05-2024 History of Presen t illness [...] female Have you been seen here at [facility] in a previous ? Yes Recent ER visits or hospitalizations? Yes , spotting Bring blood sugar log or meter with you today? (Please bring them with you for every visit at [facility]) n/a Flu vaccine (Mar-July)? No [...] also discussed pediatric orthopedic follow-up postnatally. Ct managed care provider met with the patient after the visit. [...] Follow-up with Pediatric Orthopedic surgery postnatally. Ct managed care provider met with the patient today. Plan reviewed with patient. She vocalized understanding all questions answered. The patient is to continue with routine care in your office [facility], the CDC, and other organizations representing maternal and public health professionals recommend that , , and lactating people and those considering receive the COVID-19 vaccination. Vaccination is the best method to reduce maternal and complications of SARS-CoV-2 infection. This document was created with [employer] technology. Though I make every effort to review the dictation as it is transcribed, on occasion the spoken word can be misinterpreted by the technology leading to inappropriate words, phrases, or sentences. This note is addressed to the requesting provider as a consultation for clinical guidance. Specific medical abbreviations are occasionally used and those are generally approved by the [place]?Board of?Obstetrics and?Gynecology?as well as?Kenna s abbreviations. The above plan of care was based solely on the diagnoses for which a consultation was requested. ?More frequent testing may be indicated based on her other medical/obstetrical conditions. The management of other or medical conditions is beyond the scope of requested consultation and will continue to be followed by the primary buggy driver or primary care provider. Thank you for [...] procedures Referring and communicating with other health care asst (not separately reported) Documenting clinical information in the electronic or other health record Independently interpreting results (not separately reported) and communicating results to the patient/family/caregiver Care coordination (not separately reported) documented in this encounter [facility] 04-12-2024 History of Presen t illness Narrative [...] Past Medical History: Diagnosis Date Anxiety Asthma ([facility]) Chlamydia Depression ([facility]) History of miscarriage Iron deficiency anemia SAB (spontaneous ) UTI (urinary tract infection) HISTORY PAST MEDICAL HISTORY SOCIAL HISTORY Past Medical History: Diagnosis Date Anxiety Asthma ([facility]) Chlamydia Depression ([facility]) History of miscarriage Iron [...] of: ANABELLA Gleason documented in this encounter [facility] 03-15-2024 History of Presen t illness Narrative Reason for Appointment: Patient ID: Homero De eLon is a 33 y.o. female who presents [...] nursing note reviewed. Exam conducted with a gig tender present. Vitals: Estimated body mass index is [...] Shakir Choi DO documented in this encounter [facility] 02-06-2024 History of Presen t illness Narrative Pt here for Feraheme infusion. Infusion complete without incident. Pt d/c'd in stable condition. Returns 04-01-24 for MD f/u. documented in this encounter [facility] 01-29-2024 History of Presen t illness Narrative [...] Past Medical History: Diagnosis Date Anxiety Asthma ([facility]) Chlamydia Depression ([facility]) History of miscarriage Iron deficiency anemia SAB (spontaneous ) UTI (urinary tract infection) HISTORY PAST MEDICAL HISTORY SOCIAL HISTORY Past Medical History: Diagnosis Date Anxiety Asthma ([facility]) Chlamydia Depression ([facility]) History of miscarriage Iron [...] nursing note reviewed. Exam conducted with a gig tender present. Vitals: Estimated body mass index is [...] or undercooked meat, and stay away from [facility]. Patient has been consulted regarding any further [...] Shakir Choi DO documented in this encounter [facility] 11-21-2023 Miscellaneous Notes Care Coordination Outreach [...] appointment. Letter sent. documented in this encounter [facility] 11-21-2023 Telephone encounter Note Care Coordination Outreach performed to coordinate overdue appointments, testing, and/or follow-up care: Yes Audit/Outreach Date: November 21, 2023 Reason: Well Person Method: Telephone and MyChart Outreach Attempt: First Outcome: Left Message and letter sent Next PCP Appointment: N/A Tests/Referrals Pended: N/A Resources/Education Provided: Additional Comments: Unable to reach patient by telephone to schedule appointment. Letter sent. [facility] 09-08-2023 Miscellaneous Notes Care Coordination Outreach performed to coordinate overdue appointments, testing, and/or follow-up care: Yes Audit/Outreach Date: September 08, 2023 Reason: Well Person Method: Telephone and MyChart Outreach Attempt: First Outcome: Left Message Next PCP Appointment: N/A Tests/Referrals Pended: N/A Resources/Education Provided: Additional Comments: documented in this encounter [facility] 09-08-2023 Telephone encounter Note Care Coordination Outreach performed to coordinate overdue appointments, testing, and/or follow-up care: Yes Audit/Outreach Date: September 08, 2023 Reason: Well Person Method: Telephone and MyChart Outreach Attempt: First Outcome: Left Message Next PCP Appointment: N/A Tests/Referrals Pended: N/A Resources/Education Provided: Additional Comments: [facility] Evaluation note Diagnosis Second trimester state, incidental 17 weeks gestation of UTI symptoms documented in this encounter [facility] HealthcareEvaluation note* Diagnosis Bacterial vaginosis- Primary Unspecified vaginitis and vulvovaginitis 23 weeks gestation of Second trimester state, incidental Diabetes mellitus screening Screening for diabetes mellitus documented in this encounter [facility] HealthcareEvaluation note* Diagnosis 27 weeks gestation of Second trimester state, incidental Urinary tract infection without hematuria, site unspecified documented in this encounter [facility] HealthcareEvaluation note* Diagnosis First trimester state, incidental Nausea Nausea alone Urinary tract infection without hematuria, site unspecified documented in this encounter [facility] HealthcareEvaluation note* Diagnosis 29 weeks gestation of Third trimester state, incidental SGA (small for gestational age) [id number] without mention of malnutrition, unspecified (weight) documented in this encounter [facility] HealthcareEvaluation note* Diagnosis 31 weeks gestation of Second trimester state, incidental Right club foot Premature uterine contractions, antepartum Unspecified abnormality of labor, antepartum documented in this encounter [facility] HealthcareEvaluation note* Diagnosis Iron deficiency anemia, unspecified iron deficiency anemia type- Primary [facility] Diagnosis Third trimester state, incidental 33 [...] weeks gestation of [facility] 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, other fetus- Primary Placenta previa in second trimester Suspected problem with placenta not found Suspected placental problem not found History of delivery, currently with history of pre-term labor History of drug overdose [facility] Diagnosis Third trimester state, incidental 35 weeks gestation of documented in this encounter [facility]* Diagnosis 36 weeks gestation of Third trimester state, incidental H/O precipitous labor and deliveries, antepartum, third trimester documented in this encounter [facility] HealthcareInstructionsNot on filedocumented in this encounterPro[facility]ructionsNot on filedocumented in this encounterPro[facility] SystemInstructionsNot on filedocumented in this encounterProGrant Hospital SystemReason for visit Narrative* Treatment Plan and Therapy Plan (Routine) - Authorized Specialty Diagnoses / Procedures Referred By Curtis fernandes Referred To Contact Diagnoses Iron deficiency anemia, unspecified iron deficiency anemia type Procedures MD FERUMOXYTOL, NON-ESRD Jossue Swain MD [address] [place] [address] [facility] On[facility] [address] [place] [id number] Referral ID Status Reason Start Date Expiration Date V isits Requested Visits Authorized [id number] Authorized 01/14/2024 04/15/2024 10 10 [facility] Summary Purpose Family History No Family History Records FoundNo Family History Records FoundNo Family History Records FoundNo Family History Records FoundNo Family History Records FoundNo Family History Records FoundNo Family History Records Found Advance Directives No Advanced Directives Records FoundDocuments on File Type Date 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 DATE CREATED AUTHOR AUTHOR'S ORGANIZ ATION 03/23/2023 [facility] DATE CREATED AUTHOR AUTHOR'S ORGANIZ ATION 12/11/2023 [facility] DATE CREATED AUTHOR AUTHOR'S ORGANIZ ATION 02/08/2024 [facility] DATE CREATED AUTHOR AUTHOR'S ORGANIZ ATION 06/08/2024 [facility] DATE CREATED AUTHOR AUTHOR'S ORGANIZ ATION 06/24/2024 [place] DATE CREATED AUTHOR AUTHOR'S ORGANIZ ATION 07/17/2024 [facility] Specialists [employer] Care Teams (unrecognized sec tion and content) [employer] Relationship Specialty Start Date End Date Benson Dial MD PCP - General 10/08/12 [employer] Relationship Specialty Start Date End Date Benson Dial MD PCP - General 10/08/12 [employer] Relationship Specialty Start Date End Date Vinicius Quintana MD [address] [place] [address] PCP - General Family Medicine 03/03/23 [employer] Relationship Specialty Start Date End Date Vinicius Quintana MD [address] [place] [address] PCP - General Family Medicine 03/03/23 [employer] Relationship Specialty Start Date End Date Vinicius Quintana MD [address] [place] [address] PCP - General Family Medicine 03/03/23 [employer]visor [employer] Relationship Specialty Start Date End Date Vinicius Quintana MD [address] [place] [address] PCP - General Family Medicine 03/03/23 [employer] Relationship Specialty Start Date End Date Vinicius Quintana MD [address] [place] [address] PCP - General Family Medicine 03/03/23 [employer] Relationship Specialty Start Date End Date Vinicius Quintana MD [address] [place] [address] PCP - General Family Medicine 03/03/23 [employer] Relationship Specialty Start Date End Date Vinicius Quintana MD [address] [place] [address] PCP - General Family Medicine 03/03/23 [employer] Relationship Specialty Start Date End Date Vinicius Quintana MD [address] [place] [address] PCP - General Family Medicine 03/03/23 [employer] Relationship Specialty Start Date End Date Vinicius Quintana MD [address] [place] [address] PCP - General Family Medicine 03/03/23 [employer] Relationship Specialty Start Date End Date Vinicius Quintana MD [address] [place] [address] PCP - General Family Medicine 03/03/23 [employer] Relationship Specialty Start Date End Date Vinicius Quintana MD [address] [place] [address] PCP - General Family Medicine 03/03/23 [employer] Relationship Specialty Start Date End Date Benson Dial MD PCP - General 10/08/12 [employer] Relationship Specialty Start Date End Date Vinicius Quintana MD [address] [place] [address] PCP - General Family Medicine 03/03/23 [employer] Relationship Specialty Start Date End Date Vinicius Quintana MD [address] [place] [address] PCP - General Family Medicine 03/03/23 [employer] Relationship Specialty Start Date End Date Vinicius Quintana MD [address] [place] [address] PCP - General Family Medicine 03/01/17 [employer] Relationship Specialty Start Date End Date Vinicius Quintana MD [address] [place] [address] PCP - General Family Medicine 03/01/17 [employer] Relationship Specialty Start Date End Date Vinicius Quintana MD [address] [place] [address] PCP - General Family Medicine 03/01/17 Reason [...] BE BASED ON THE PRIMARY CLINICAL RECORDS. [facility] [facility]. provides no warranty or guarantee of the accuracy or completeness of information in this document.
[2024-07-20 12:03] VITALS: BP 121/77; PULSE 76
== END 2024-07-20 12:31 | disposition home or self-care (01) ==
LOC: FBCO 01:06 → FBC 11:55
PROVIDERS: PCP Family Medicine; Visit Provider Obstetrics & Gynecology
DX: O36.5930 Maternal care for other known or suspected poor fetal growth, third trimester, not applicable or unspecified (principal); Z3A.00 Weeks of gestation of pregnancy not specified
CPT/HCPCS: 59025

== ENCOUNTER 2024-07-20 19:01 | Inpatient (IN) | payer OTHER, SELFPAY ==
[2024-07-20] VITALS (15 sets, daily range): BP systolic 109–155; BP diastolic 62–101; PULSE 49–82
--- OUTSIDE RECORDS SUMMARY | 2024-07-20 19:16 | XMS_ITS | CCD ---
Author Organization [facility] Care Team Providers Care [employer] Name Role Phone STEPH, DR MURO Admitting [...] Unavailable Defrance Vinicius ATWOOD Primary Care Provider [phone] SOPHIA GALO Attending Unavailable STEPH, SHAKIR Attending [...] Local Anesthetic Start: 03-10-2023 lidocaine-EPINEPHr ine 1 %-1:[id number] injection 1 mL ferrous sulfate 325 mg [...] low weight; and growth retardation (1 source) Cpwsc-jet-xddng baby; Translations: [ small for gestational age, [...] terminal agent (current) drug therapy; Translations: [Other long-term (current) drug therapy] Onset: 11-06-2023 Episodic Other [...] US OB BPP W NON-STRESS on 07-16-2024 [place] [id number] Ultrasound Report Signed Patient: HOMERO DE LEON MR#: [id number] : 1990 Acct:[id number] Age/Sex: 33 / F ADM Date: 07/16/24 Loc: US Attending Dr: Sophia Galo Ordering Physician: Sophia Galo Date of Service: 07/16/24 Procedure(s): US OB BPP w non-stress Accession Number(s): [id number] cc: Sophia Galo; VINICIUS QUINTANA [address] [address] Patient Name: HOMERO DE LEON MRN: [facility]:[id number] date: 1990 Sex: F Assigned Patient Location: [facility] Current Patient Location: Accession/Order Number: [id number] Exam Date: 07/16/2024 12:03 Report Date: 07/16/2024 12:06 At the request of: SOPHIA GALO Procedure: US OB BPP w non-stress BIOPHYSICAL PROFILE: CLINICAL INFORMATION: SMALL FOR GESTATIONAL AGE COMPARISON: 07/09/2024 There is a single live intrauterine gestation In cephalic presentation. The reported age is 36 weeks 6 days. The heart rate [id number] beats per minute. FINDINGS: TONE: 1 or [...] Ct Guillen M.D.07/16/2024 12:06 PM Dictation Location: [place] [address] Electronically authenticated by: [id number] Y Date: 07/16/2024 12:06 Dictated By: Ct Guillen M.D. Signed By: 07/16/24 1208 DD/ 1206 TD/TT: Combination Welder Apprentice: [facility] Radiology, Radiologist, MD - 07/16/2024 [place] [address] Ultrasound Report Signed Patient: HOMERO DE LEON MR#: [id number] : 1990 Acct:[id number] Age/Sex: 33 / F ADM Date: 07/16/24 Loc: US Attending Dr: Sophia Galo Ordering Physician: Sophia Galo Date of Service: 07/16/24 Procedure(s): US OB BPP w non-stress Accession Number(s): [id number] cc: Sophia Galo; VINICIUS QUINTANA [place] [id number] Patient Name: HOMERO DE LEON MRN: [facility]:[id number] date: 1990 Sex: F Assigned Patient Location: [facility] Current Patient Location: Accession/Order Number: [id number] Exam Date: 07/16/2024 12:03 Report Date: 07/16/2024 12:06 At the request of: SOPHIA GALO Procedure: US OB BPP w non-stress BIOPHYSICAL PROFILE: CLINICAL INFORMATION: SMALL FOR GESTATIONAL AGE COMPARISON: 07/09/2024 There is a single live intrauterine gestation In cephalic presentation. The reported age is 36 weeks 6 days. The heart rate [id number] beats per minute. FINDINGS: TONE: 1 or [...] Ct Guillen M.D.07/16/2024 12:06 PM Dictation Location: [place] Electronically authenticated by: [id number] Y Date: 07/16/2024 12:06 Dictated By: Ct Guillen M.D. Signed By: 07/16/24 1208 DD/ 1206 TD/TT: Combination Welder Apprentice: [facility] Radiology Study observation (narrative) [facility] US OB BPP W NON-STRESS Ordered By: Radiologist Radiology on 07-16-2024 [facility] Work Phone: Urinalysis macro (dipstick) panel (U)on 07-15-2024 Bilirubin, UA Positive Negative - 4(70) +++ mg/dL [facility] Comment on above: small Blood, UA Negative Negative - 50 Papo/mcL [facility] Clarity, UA Clear [facility] Color, UA Yellow [facility] Glucose, UA Negative Negative - 2000(110) ++++ mg/dL [facility] Interpretation and review of laboratory results Abnormal [facility] Ketones, UA Negative Negative - 160(16) ++++ mg/dL [facility] Leukocytes, UA Positive Negative - 500+++ Akash/mcL [facility] Comment on above: small Nitrite, UA Negative Negative - Positive [facility] pH, UA 7 5 - 9 [facility] Protein, UA Positive Negative - 2000(20) ++++ mg/dL [facility] Comment on above: 30 Spec Grav, UA 1.02 1 - 1.03 [facility] Urobilinogen, UA 1.0 0.2 - 12 mg/dL [facility] ALL MISCELLANEOUS TESTon MISCELLANEOUS TEST COMMENT . [facility] Comment on above: Test Ordered: [id number] Strep Gp B Culture+Rflx Strep Gp B Culture+Rflx Negative CB Reference Range: Negative Centers for Disease Control and Prevention (CDC) and [place] [employer] of [employer]stetricians and Gynecologists (ACOG) guidelines [...] resistance to clindamycin is noted. Performed at: [address] [id number] Gas Turbine Mechanic: Ramy Zavala PhD, Phone: [phone] CULTURE, GROUP B STREP WITH SUSCEPTIBILITY [facility] UA (CLEAN/CATCH) CIDER PRESS OPERATOR/ZHOU RO IF IND.on 07-11-2024 BILIRUBIN URINE Negative NEGATIVE [facility] BLOOD URINE Negative NEGATIVE [facility] Clarity (U) CLEAR CLEAR [facility] Color (U) YELLOW YELLOW [facility] GLUCOSE URINE UA Negative NEGATIVE mg/dL [facility] Interpretation and review of laboratory results Abnormal [facility] Ketones Ql (U) Negative NEGATIVE mg/dL [facility] Leukocyte esterase Test strip Ql (U) TRACE Abnormal NEGATIVE [facility] NITRITE URINE Negative NEGATIVE [facility] pH (U) 6.5 [pH] 5.0 - 9.0 [facility] PROTEIN URINE Negative NEG/TRACE mg/dL [facility] SPECIFIC GRAVITY URINE 1.015 1.005 - 1.025 [facility] URINE MICROSCOPIC INDICATED YES [facility] UROBILINOGEN URINE 0.2 EU/dL 0.2 - 1.0 EU/dL [facility] US OB BPP W NON-STRESS on 07-09-[address] [address] Ultrasound Report Signed Patient: HOMERO DE LEON MR#: [id number] : 1990 Acct:[id number] Age/Sex: 33 / F ADM Date: 07/09/24 Loc: US Attending Dr: Sophia Galo Ordering Physician: Sophia Galo Date of Service: 07/09/24 Procedure(s): US OB BPP w non-stress Accession Number(s): [id number] cc: VINICIUS Vicente The [address] [address] Patient Name: HOMERO DE LEON MRN: [facility]:[id number] date: 1990 Sex: F Assigned Patient Location: US Current Patient Location: Accession/Order Number: [id number] Exam Date: 07/09/2024 10:09 Report Date: 07/09/2024 [...] Signed By: 07/09/24 1407 DD/ 04 TD/TT: Combination Welder Apprentice: [facility] Radiology, Radiologist, MD - 07/09/[address] [address] Ultrasound Report Signed Patient: HOMERO DE LEON MR#: [id number] : 1990 Acct:[id number] Age/Sex: 33 / F ADM Date: 07/09/24 Loc: US Attending Dr: Sophia Galo Ordering Physician: Sophia Galo Date of Service: 07/09/24 Procedure(s): US OB BPP w non-stress Accession Number(s): [id number] cc: Sophia Galo; VINICIUS QUINTANA [facility] [address] [place] [address] Patient Name: HOMERO DE LEON MRN: [facility]:[id number] date: 1990 Sex: F Assigned Patient Location: US Current Patient Location: Accession/Order Number: [id number] Exam Date: 07/09/2024 10:09 Report Date: 07/09/2024 [...] M.D. Signed By: 07/09/241406 DD/ 04 TD/TT: Combination Welder Apprentice: [facility] Radiology Study observation (narrative) [facility] US OB BPP W NON-STRESS Ordered By: Radiologist Radiology on 07-09-2024 [facility] Work Phone: Urinalysis macro (dipstick) panel (U)on 07-08-2024 Bilirubin, UA Negative Negative - 4(70) +++ mg/dL [facility] Blood, UA Negative Negative - 50 Papo/mcL [facility] Clarity, UA Clear [facility] Color, UA Yellow [facility] Glucose, UA Negative Negative - 2000(110) ++++ mg/dL [facility] Interpretation and review of laboratory results Normal [facility] Ketones, UA Negative Negative - 160(16) ++++ mg/dL [facility] Leukocytes, UA Negative Negative - 500+++ Akash/mcL [facility] Nitrite, UA Negative Negative - Positive [facility] pH, UA 7 5 - 9 [facility] Protein, UA Negative Negative - 1999(20) ++++ mg/dL [facility] Spec Grav, UA 1.01 1 - 1.03 [facility] Urobilinogen, UA 0.2 0.2 - 12 mg/dL [facility] US OB BPP W NON-STRESS on 06-23-2024 [place] [address] Ultrasound Report Signed Patient: HOMERO DE LEON MR#: [id number] : 1990 Acct:[id number] Age/Sex: 33 / F ADM Date: Loc: [facility] 251-[address]: Shakir Choi D.O. Ordering Physician: Shakir Choi D.O. Date of Service: 06/23/24 Procedure(s): US OB BPP w non-stress Accession Number(s): [id number] cc: VINICIUS QUINTANA ; Shakir Choi D.O. [place] [id number] Patient Name: HOMERO DE LEON MRN: [facility]:[id number] date: 1990 Sex: F Assigned Patient Location: [facility] Current Patient Location: [facility] Accession/Order Number: [id number] Exam Date: 06/23/2024 14:01 Report Date: 06/23/2024 [...] Signed By: 06/23/24 143 DD/ 26 TD/TT: Combination Welder Apprentice: [facility] Radiology, Radiologist, - 06/23/2024 [place] [address] Ultrasound Report Signed Patient: HOMERO DE LEON MR#: [id number] : 1990 Acct:[id number] Age/Sex: 33 / F ADM Date: Loc: [facility] 251-[address]: Shakir Choi D.O. Ordering Physician: Shakir Choi D.O. Date of Service: 06/23/24 Procedure(s): US OB BPP w non-stress Accession Number(s): [id number] cc: VINICIUS QUINTANA ; Shakir Choi D.O. The [place] [address] Patient Name: HOMERO DE LEON MRN: [facility]:[id number] date: 1990 Sex: F Assigned Patient Location: [facility] Current Patient Location: [facility] Accession/Order Number: [id number] Exam Date: 06/23/2024 14:01 Report Date: 06/23/2024 [...] Signed By: 06/23/24 143 DD/ 26 TD/TT: Combination Welder Apprentice: [facility] Radiology Study observation (narrative) [facility] US OB BPP W NON-STRESS Ordered By: Radiologist Radiology on 06-23-2024 [facility] Work Phone: Urinalysis macro (dipstick) panel (U)on 06-23-2024 Bilirubin, UA Positive Negative - 4(70) +++ mg/dL [facility] Comment on above: small Blood, UA Positive Negative - 50 Papo/mcL [facility] Comment on above: trace Clarity, UA Clear [facility] Color, UA Sera [facility] Glucose, UA Negative Negative - 2000(110) ++++ mg/dL [facility] Interpretation and review of laboratory results Abnormal [facility] Ketones, UA Positive Negative - 160(16) ++++ mg/dL [facility] Comment on above: 15 Leukocytes, UA Positive Negative - 500+++ Akash/mcL [facility] Comment on above: large Nitrite, UA Positive Negative - Positive [facility] pH, UA 6.5 5 - 9 [facility] Protein, UA Positive Negative - 2000(20) ++++ mg/dL [facility] Comment on above: 100 Spec Grav, UA 1.025 1 - 1.03 [facility] Urobilinogen, UA 1.0 0.2 - 12 mg/dL [facility] CHLAMYDIA/GC BY PCRon 2024 CHLAMYDIA/GC BY [...] are dependent on adequate specimen collection. Normal [facility] Comment on above: Performed By: #### 2 106-3 #### [facility] ([id number]) [address] [place] [address], [place] [address] DRUG SCREEN, URINEon 025 AMPHETAMINE/METHAMP Negative Normal NEG [facility] Comment on above: Result Comment: AMPH /METH screening cut off = 1000 ng/mL Performed By: #### 2 106-3 #### [facility] ([id number]) [address] [place] [address] BARBITURATES Negative Normal NEG [facility] Comment on above: Result Comment: Allison iturates screening cut off value = 200 ng/mL Performed By: #### 2 106-3 #### [facility] ([id number]) [address] [place] [address] BENZODIAZEPINES Negative Normal NEG [facility] Comment on above: Result Comment: Dave odiazepines screening cut off value = 200 ng/mL Performed By: #### 2 106-3 #### [facility] ([id number]) [address] [place] [address] CANNABINOIDS Negative Normal NEG [facility] Comment on above: Result Comment: Eddie abinoids/THC screening cut off value = 50 ng/mL Performed By: #### 2 106-3 #### [facility] ([id number]) [address] [place] [address] COCAINE METABOLITE Negative Normal NEG [facility] Comment on above: Result Comment: Coca ine screening cut off value = 300 ng/mL Performed By: #### 2 106-3 #### [facility] ([id number]) [address] [place] [address] ECSTASY Negative Normal NEG [facility] Comment on above: Result Comment: Ecst asy screening cut off value = 500 ng/mL This report is intended for use in clinical monitoring or management of patients. Performed By: #### 2 106-3 #### [facility] ([id number]) [address] [place] [address] METHADONE Negative Normal NEG [facility] Comment on above: Result Comment: Meth adone screening cut off value = 300 ng/mL. Performed By: #### 2 106-3 #### [facility] ([id number]) [address] [place] [address] OPIATES Negative Normal NEG [facility] Comment on above: Result Comment: Opia victoria screening cut off value = 300 ng/mL NOTE: This test is used for the detection of codeine, hydrocodone (>1000 ng/mL), morphine and hydromorphone (>900 ng/mL) in urine. Performed By: #### 2 106-3 #### [facility] ([id number]) [address] [place] [address] OXYCODONE Negative Normal NEG [facility] Comment on above: Result Comment: Oxyc odone screening cut off value = 300 ng/mL NOTE: This test is used for the detection of oxycodone and oxymorphone in urine. Performed By: #### 2 106-3 #### [facility] ([id number]) [address] [place] [address] PHENCYCLIDINE Negative Normal NEG [facility] Comment on above: Result Comment: Phen cyclidine screening cut off value = 25 ng/mL Performed By: #### 2 106-3 #### [facility] ([id number]) [address] [place] [address] Fibronectin. Ql (Vag fl d)on 06-22-2024 FIBRONECTIN Positive Abnormal NEG [facility] Comment on above: Performed By: #### 2 106-3 #### [facility] ([id number]) [address] [place] [address] STREP B SCREEN CULTUREon S. agalactiae Org specific cx Ql (Vag+Rectum) CULTURE RESULTS POSITIVE FOR GROUP B STREPTOCOCCUS BY NUCLEIC ACID AMPLIFICATION : Group B streptococci remain universally susceptible to penicillin, ampicillin, and cefazolin. Resistance to clindamycin can occur. Please contact laboratory within 48 hr if clindamycin susceptibility testing is needed. Normal [facility] Comment on above: Performed By: #### 2 106-3 #### [facility] ([id number]) [address] [place] [address], [place] [address] URINALYSISon 06-22-2024 Bilirubin Ql (U) Negative Normal NEG [facility] Comment on above: Performed By: #### 2 106-3 #### [facility] ([id number]) [address] [place] [address], [place] [address] BLOOD/HGB MODERATE Abnormal NEG [facility] Comment on above: Performed By: #### 2 106-3 #### [facility] ([id number]) [address] [place] [address], [place] [address] Color (U) YELLOW Normal YELLOW [facility] Comment on above: Performed By: #### 2 106-3 #### [facility] ([id number]) [address] [place] [address], [place] [address] Glucose Ql (U) Negative Normal NEG [facility] Comment on above: Performed By: #### 2 106-3 #### [facility] ([id number]) [address] [place] [address], [place] [address] Ketones Ql (U) >80 Abnormal NEG [facility] Comment on above: Performed By: #### 2 106-3 #### [facility] ([id number]) [address] [place] [address], [place] [address] Leukocyte esterase Test strip Ql (U) Large Abnormal NEG [facility] Comment on above: Performed By: #### 2 106-3 #### [facility] ([id number]) [address] [place] [address], [place] [address] Nitrite Ql (U) Negative Normal NEG [facility] Comment on above: Performed By: #### 2 106-3 #### [facility] ([id number]) [address] [place] [address], [place] [address] pH (U) 7.0 [pH] Normal 5.0-8.5 [facility] Comment on above: Performed By: #### 2 106-3 #### [facility] ([id number]) [address] [place] [address] Protein Ql (U) >300 Abnormal NEG [facility] Comment on above: Performed By: #### 2 106-3 #### [facility] ([id number]) [address] [place] [address]38 R.B.CELLS 6 /hpf High 0-5 [facility] Comment on above: Performed By: #### 2 106-3 #### [facility] ([id number]) [address] [place] [address] Specific gravity (U) [Rel density] 1.025 Normal 1.003-1.035 [facility] Comment on above: Performed By: #### 2 106-3 #### [facility] ([id number]) [address] [place] [address] SQUAMOUS EPITHELIUM 5 /hpf Normal 0-5 [facility] Comment on above: Performed By: #### 2 106-3 #### [facility] ([id number]) [address] [place] [address] TURBIDITY CLEAR Normal CLEAR [facility] Comment on above: Performed By: #### 2 106-3 #### [facility] ([id number]) [address] [place] [address] Urobilinogen Qn (U) 1.0 {Migue'U}/dL Normal <1.1 [facility] Comment on above: Performed By: #### 2 106-3 #### [facility] ([id number]) [address] [place] [address] W.B.CELLS 11 /hpf High 0-5 [facility] Comment on above: Performed By: #### 2 106-3 #### [facility] ([id number]) [address] [place] [address] URINE CULTUREon 06-22-2024 Bacteria identified Cx Nom (U) CULTURE RESULTS <10,000 ORGANISMS/ML NORMAL URO GENITAL JOHN PAUL Normal [facility] Comment on above: Performed By: #### 2 106-3 #### [facility] ([id number]) [address] [place] [address] 81804 VAGINITIS PANEL PCRon 2024 VAGINITIS PANEL PCR [...] clinical presentation to determine patient diagnosis. Normal [facility] Comment on above: Performed By: #### 2 106-3 #### [facility] ([id number]) [address] [place] [address] Urinalysis macro (dipstick) panel (U)on 05-24-2024 Bilirubin, UA Negative Negative - 4(70) +++ mg/dL [facility] Blood, UA Positive Negative - 50 Papo/mcL [facility] Clarity, UA Clear [facility] Color, UA Yellow [facility] Glucose, UA Negative Negative - 2000(110) ++++ mg/dL [facility] Interpretation and review of laboratory results Abnormal [facility] Ketones, UA Negative Negative - 160(16) ++++ mg/dL [facility] Leukocytes, UA Negative Negative - 500+++ Akash/mcL [facility] Nitrite, UA Negative Negative - Positive [facility] pH, UA 7 5 - 9 [facility] Protein, UA Trace Negative - 2000(20) ++++ mg/dL [facility] Spec Grav, UA 1.02 1 - 1.03 [facility] Urobilinogen, UA 1.0 0.2 - 12 mg/dL [facility] COMPLETE BLOOD COUNTon 05-13 Erythrocyte distribution width (RBC) [Ratio] 12.9 % Normal 11.5-15.0 [facility] Comment on above: Performed By: #### N UM #### [facility] ([id number]) [address] [place] [address] 15595 Hematocrit (Bld) [Volume fraction] 30.2 % Low 35-47 [facility] Comment on above: Performed By: #### N UM #### [facility] ([id number]) [address] [place] [address] 14813 Hemoglobin (Bld) [Mass/Vol] 10.4 g/dL Low 11.7-15.5 [facility] Comment on above: Performed By: #### N UM #### [facility] ([id number]) [address] [place] [address] 72816 MCH (RBC) [Entitic mass] 31.3 pg Normal 27-34 [facility] Comment on above: Performed By: #### N UM #### [facility] ([id number]) [address] [place] [address] 04838 MCHC (RBC) [Mass/Vol] 34.3 g/dL Normal 32-36 [facility] Comment on above: Performed By: #### N UM #### [facility] ([id number]) [address] [place] [address] 27878 MCV (RBC) [Entitic vol] 92 fL Normal 80-100 [facility] Comment on above: Performed By: #### N UM #### [facility] ([id number]) [address] [place] [address] 32306 Platelet mean volume (Bld) [Entitic vol] 8.7 fL Normal 7-12 [facility] Comment on above: Performed By: #### N UM #### [facility] ([id number]) [address] [place] [address] 82858 Platelets (Bld) [#/Vol] 285 10*3/uL Normal 150-450 [facility] Comment on above: Performed By: #### N UM #### [facility] ([id number]) [address] [place] [address] 48773 RBC COUNT 3.31 X10E12/L Low 3.80-5.20 [facility] Comment on above: Performed By: #### N UM #### [facility] ([id number]) [address] [place] [address] 02469 WBC (Bld) [#/Vol] 13.6 10*3/uL High 4.0-11.0 [facility] Comment on above: Performed By: #### N UM #### [facility] ([id number]) [address] [place] [address] 87132 COMPREHENSIVE METABOLIC PANE Baljit 05-13-2024 Albumin [Mass/Vol] 3.3 g/dL Normal 3.2-5.3 [facility] Comment on above: Performed By: #### N UM #### [facility] ([id number]) [address] [place] [address] 23771 ALP [Catalytic activity/Vol] 52 U/L Normal 39-130 [facility] Comment on above: Performed By: #### N UM #### [facility] ([id number]) [address] [place] [address] 72207 ALT [Catalytic activity/Vol] 10 U/L Normal 0-31 [facility] Comment on above: Performed By: #### N UM #### [facility] ([id number]) [address] [place] [address] 52793 Anion gap [Moles/Vol] 9 mmol/L Normal 5-15 [facility] Comment on above: Performed By: #### N UM #### [facility] ([id number]) [address] [place] [address] 41314 AST [Catalytic activity/Vol] 16 U/L Normal 0-41 [facility] Comment on above: Performed By: #### N UM #### [facility] ([id number]) [address] [place] [address] 65959 Bilirubin [Mass/Vol] 0.8 mg/dL Normal 0.3-1.2 [facility] Comment on above: Performed By: #### N UM #### [facility] ([id number]) [address] [place] [address] 61790 Calcium [Mass/Vol] 9.4 mg/dL Normal 8.5-10.5 [facility] Comment on above: Performed By: #### N UM #### [facility] ([id number]) [address] [place] [address] 25567 Chloride [Moles/Vol] 104 mmol/L Normal 98-109 [facility] Comment on above: Performed By: #### N UM #### [facility] ([id number]) [address] [place] [address] [place] [address] CO2 [Moles/Vol] 22 mmol/L Normal 22-32 [facility] Comment on above: Performed By: #### N UM #### [facility] ([id number]) [address] [place] [address] [place] [address] Creatinine [Mass/Vol] 0.63 mg/dL Normal 0.40-1.00 [facility] Comment on above: Result Comment: METH OD TRACEABLE TO IDMS STANDARD Performed By: #### N UM #### [facility] ([id number]) [address] [place] [address] 38090 eGFR (CKD-EPI) NON-RACE DEPENDENT >90 Normal >59 [facility] Comment on above: Result Comment: Reported eGFR is based on the CKD-EPI 2020 equation that does not use a race coefficient. Performed By: #### N UM #### [facility] ([id number]) [address] [place] [address] 69698 Glucose [Mass/Vol] 99 mg/dL Normal 65-99 [facility] Comment on above: Performed By: #### N UM #### [facility] ([id number]) [address] [place] [address] 54651 Potassium [Moles/Vol] 2.8 mmol/L Low 3.5-5.0 [facility] Comment on above: Performed By: #### N UM #### [facility] ([id number]) [address] [place] [address] 33439 Protein [Mass/Vol] 6.9 g/dL Normal 6.0-8.0 [facility] Comment on above: Performed By: #### N UM #### [facility] ([id number]) [address] [place] [address] 36956 Sodium [Moles/Vol] 135 mmol/L Normal 134-146 [facility] Comment on above: Performed By: #### N UM #### [facility] ([id number]) [address] [place] [address] 48388 Urea nitrogen [Mass/Vol] 7 mg/dL Normal 5-23 [facility] Comment on above: Performed By: #### N UM #### [facility] ([id number]) [address] [place] [address] 45932 Fibronectin. Ql (Vag fl d)on 05-13-2024 FIBRONECTIN Negative Normal NEG [facility] Comment on above: Performed By: #### N UM #### [facility] ([id number]) [address] [place] [address], [place] [address] STREP B SCREEN CULTUREon S. agalactiae Org specific cx Ql (Vag+Rectum) CULTURE RESULTS NEGATIVE FOR GROUP B STREPTOCOCCUS BY NUCLEIC ACID AMPLIFICATION Normal [facility] Comment on above: Performed By: #### 2 106-3 #### [facility] ([id number]) [address] [place] [address], [place] [address] URINALYSISon 05-13-2024 Bilirubin Ql (U) Negative Normal NEG [facility] Comment on above: Performed By: #### N UM #### [facility] ([id number]) [address] [place] [address], [place] [address] BLOOD/HGB Trace Abnormal NEG [facility] Comment on above: Performed By: #### N UM #### [facility] ([id number]) [address] [place] [address], [place] [address] Color (U) YELLOW Normal YELLOW [facility] Comment on above: Performed By: #### N UM #### [facility] ([id number]) [address] [place] [address], [place] [address] Glucose Ql (U) Negative Normal NEG [facility] Comment on above: Performed By: #### N UM #### [facility] ([id number]) [address] [place] [address], [place] [address] Ketones Ql (U) Negative Normal NEG [facility] Comment on above: Performed By: #### N UM #### [facility] ([id number]) [address] [place] [address], [place] [address] Leukocyte esterase Test strip Ql (U) Large Abnormal NEG [facility] Comment on above: Performed By: #### N UM #### [facility] ([id number]) [address] [place] [address] 19380 Nitrite Ql (U) Negative Normal NEG [facility] Comment on above: Performed By: #### N UM #### [facility] ([id number]) [address] [place] [address] 71101 pH (U) 7.0 [pH] Normal 5.0-8.5 [facility] Comment on above: Performed By: #### N UM #### [facility] ([id number]) [address] [place] [address] 28415 Protein Ql (U) Negative Normal NEG [facility] Comment on above: Performed By: #### N UM #### [facility] ([id number]) [address] [place] [address] 83847 R.B.CELLS 0 to 1 Normal 0-5 [facility] Comment on above: Performed By: #### N UM #### [facility] ([id number]) [address] [place] [address] 01220 Specific gravity (U) [Rel density] 1.010 Normal 1.003-1.035 [facility] Comment on above: Performed By: #### N UM #### [facility] ([id number]) [address] [place] [address] 58754 SQUAMOUS EPITHELIUM 5 /hpf Normal 0-5 [facility] Comment on above: Performed By: #### N UM #### [facility] ([id number]) [address] [place] [address] 54115 TURBIDITY CLEAR Normal CLEAR [facility] Comment on above: Performed By: #### N UM #### [facility] ([id number]) [address] [place] [address] 99435 Urobilinogen Qn (U) 0.2 {Migue'U}/dL Normal <1.1 [facility] Comment on above: Performed By: #### N UM #### [facility] ([id number]) [address] [place] [address] 12284 W.B.CELLS 5 /hpf Normal 0-5 [facility] Comment on above: Performed By: #### N UM #### [facility] ([id number]) [address] [place] [address] 52547 US BIOPHYSICAL PROFILE FET W O NSTon [...] Bueno MD on 05/13/2024 8:41 AM Normal [facility] No Panel Informationon 05-11 STAPHYLOCOCCUS EPIDERMIDIS, [...] detected [facility] ESCHERICHIA COLI 0 [facility] ESCHERICHIA COLI Not detected [facility] Interpretation and review of laboratory results Abnormal [facility] KLEBSIELLA PNEUMONIAE, OXYTOCA 19.182 Abnormal [facility] KLEBSIELLA PNEUMONIAE, OXYTOCA Detected Abnormal [facility] [...] AGALACTIAE (GROUP B STREP) Not detected [facility] STREPTOCOCCUS PYOGENES (GROUP A STREP) 0 [facility] STREPTOCOCCUS PYOGENES (GROUP A STREP) Not detected [facility] Urinalysis macro (dipstick) panel (U)on 05-10-2024 Bilirubin, UA Negative Negative - 4(70) +++ mg/dL [facility] Blood, UA Negative Negative - 50 Papo/mcL [facility] Clarity, UA Clear [facility] Color, UA Dark Sera [facility] Glucose, UA Negative Negative - 1999(110) ++++ mg/dL [facility] Interpretation and review of laboratory results Abnormal [facility] Ketones, UA Negative Negative - 160(16) ++++ mg/dL [facility] Leukocytes, UA Negative Negative - 500+++ Akash/mcL [facility] Nitrite, UA Positive Negative - Positive [facility] pH, UA 7.5 5 - 9 [facility] Protein, UA Positive Negative - 1999(20) ++++ mg/dL [facility] Comment on above: 30mg/dL Spec Grav, UA 1.02 1 - 1.03 [facility] Urobilinogen, UA 1.0 0.2 - 12 mg/dL [facility] Urinalysis macro (dipstick) panel (U)on 04-12-2024 Bilirubin, UA Negative Negative - 4(70) +++ mg/dL [facility] Blood, UA Negative Negative - 50 Papo/mcL [facility] Clarity, UA Clear [facility] Color, UA Yellow [facility] Glucose, UA Negative Negative - 1999(110) ++++ mg/dL [facility] Interpretation and review of laboratory results Abnormal [facility] Ketones, UA Positive Negative - 160(16) ++++ mg/dL [facility] Leukocytes, UA Negative Negative - 500+++ Akash/mcL [facility] Nitrite, UA Negative Negative - Positive [facility] pH, UA 7 5 - 9 [facility] Protein, UA Negative Negative - 2000(20) ++++ mg/dL [facility] Spec Grav, UA 1.02 1 - 1.03 [facility] Urobilinogen, UA 0.2 0.2 - 12 mg/dL [facility] CHLAMYDIA/GC BY PCRon 2023 CHLAMYDIA/GC BY [...] are dependent on adequate specimen collection. Normal [facility] Comment on above: Performed By: #### N #### [facility] ([id number]) [address] [place] [address] HIV 1+2 Ab+HIV1 p24 Ag IA Ql on 04-09-2024 HIV 1 and 2 Ab/Ag Screen Non-Reactive Normal NRCT [facility] Comment on above: Result Comment: [...] or diagnoses. Performed By: #### N #### [facility] ([id number]) [address] [place] [address] 78109 T. pallidum IgG+IgM IA Ql (S )on 04-09-2024 Syphilis Total <0.2 Normal 0.0-0.8 [facility] Comment on above: Result Comment: NON REACTIVE No serologic evidence of infection to Treponema pallidum (syphilis). Repeat testing may be considered in patients with suspected acute or primary syphilis in 2 to 4 weeks. Performed By: #### N UM #### [facility] ([id number]) [address] [place] [address] 30088 URINALYSISon 04-09-2024 Bilirubin Ql (U) Negative Normal NEG [facility] Comment on above: Performed By: #### N UM #### [facility] ([id number]) [address] [place] [address] 64888 BLOOD/HGB Negative Normal NEG [facility] Comment on above: Performed By: #### N UM #### [facility] ([id number]) [address] [place] [address] 74173 Color (U) YELLOW Normal YELLOW [facility] Comment on above: Performed By: #### N UM #### [facility] ([id number]) [address] [place] [address] 63331 Glucose Ql (U) Negative Normal NEG [facility] Comment on above: Performed By: #### N UM #### [facility] ([id number]) [address] [place] [address] 11556 Ketones Ql (U) Trace Abnormal NEG [facility] Comment on above: Performed By: #### N UM #### [facility] ([id number]) [address] [place] [address] 52580 Leukocyte esterase Test strip Ql (U) Trace Abnormal NEG [facility] Comment on above: Performed By: #### N UM #### [facility] ([id number]) [address] [place] [address] 38934 Nitrite Ql (U) Negative Normal NEG [facility] Comment on above: Performed By: #### N UM #### [facility] ([id number]) [address] [place] [address] 75946 pH (U) 7.0 [pH] Normal 5.0-8.5 [facility] Comment on above: Performed By: #### N UM #### [facility] ([id number]) [address] [place] [address] 91145 Protein Ql (U) Trace Abnormal NEG [facility] Comment on above: Performed By: #### N UM #### [facility] ([id number]) [address] [place] [address] 80106 R.B.CELLS 2 /hpf Normal 0-5 [facility] Comment on above: Performed By: #### N UM #### [facility] ([id number]) [address] [place] [address] 92833 Specific gravity (U) [Rel density] 1.025 Normal 1.003-1.035 [facility] Comment on above: Performed By: #### N UM #### [facility] ([id number]) [address] [place] [address] 70901 SQUAMOUS EPITHELIUM 4 /hpf Normal 0-5 [facility] Comment on above: Performed By: #### N UM #### [facility] ([id number]) [address] [place] [address] 08146 TURBIDITY CLEAR Normal CLEAR [facility] Comment on above: Performed By: #### N UM #### [facility] ([id number]) [address] [place] [address] 21928 Urobilinogen Qn (U) 0.2 {Migue'U}/dL Normal <1.1 [facility] Comment on above: Performed By: #### N UM #### [facility] ([id number]) [address] [facility] [place] [address] W.B.CELLS 3 /hpf Normal 0-5 [facility] Comment on above: Performed By: #### N UM #### [facility] ([id number]) [address] [place] [address], [place] [address] No Panel Informationon 04-06 Interpretation and review of laboratory results Abnormal 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 YELLOW YELLOW [facility] GLUCOSE URINE UA Negative NEGATIVE mg/dL [facility] Ketones Ql (U) Negative NEGATIVE mg/dL [facility] Leukocyte esterase Test strip Ql (U) SMALL Abnormal NEGATIVE [facility] NITRITE URINE Negative NEGATIVE [facility] pH (U) 7.0 [pH] 5.0 - 9.0 [facility] PROTEIN URINE Negative NEG/TRACE mg/dL [facility] SPECIFIC GRAVITY URINE 1.010 1.005 - 1.025 [facility] URINE MICROSCOPIC INDICATED YES [facility] UROBILINOGEN URINE 1.0 EU/dL 0.2 - 1.0 EU/dL [facility] URINE MICROSCOPIC ONLYon 04-06-2024 BACTERIA URINE TRACE Abnormal NONE SEEN #/HPF [facility] CAST SEEN? NONE SEEN NONE SEEN #/LPF [facility] CRYSTALS SEEN? None Seen None Seen #/HPF [facility] MUCUS URINE NONE SEEN NONE SEEN [facility] SQUAMOUS EPITHELIAL CELL URINE FEW Abnormal NONE/RARE #/LPF [facility] RBC 0-[address] [facility] WBC 2-5 Abnormal NONE SEEN #/HPF [facility] URINE CULTURE INDICATED YES [facility] Urinalysis macro (dipstick) panel (U)on 03-15-2024 Bilirubin, UA Negative Negative - 4(70) +++ mg/dL [facility] Blood, UA Negative Negative - 50 Papo/mcL [facility] Clarity, UA Clear [facility] Color, UA Yellow [facility] Glucose, UA Negative Negative - 2000(110) ++++ mg/dL [facility] Interpretation and review of laboratory results Abnormal [facility] Ketones, UA Positive Negative - 160(16) ++++ mg/dL [facility] Leukocytes, UA Positive Negative - 500+++ Akash/mcL [facility] Nitrite, UA Positive Negative - Positive [facility] pH, UA 7 5 - 9 [facility] Protein, UA Positive Negative - 2000(20) ++++ mg/dL [facility] Spec Grav, UA 1.02 1 - 1.03 [facility] Urobilinogen, UA 1.0 0.2 - 12 mg/dL [facility] CHLAMYDIA/GC BY PCRon 2023 CHLAMYDIA/GC BY [...] are dependent on adequate specimen collection. Normal [facility] Comment on above: Performed By: #### C GS #### [facility] ([id number]) [address] [place] [address] 42408 [facility] ([id number]) [address] [place] [address], [address] [place] [address] HCG ( test) Ql (U)o n 02-26-2024 Beta HCG ( test) Ql (U) Positive Abnormal NEG [facility] Comment on above: Performed By: #### 2 106-3 #### [facility] ([id number]) [address] [place] [address] 96438 URINE CULTUREon 02-26-2024 Bacteria identified Cx Nom [...] F TRIMETH/SULFAMETHOXA ZOLE S <=06/13 F Susceptible [facility] Comment on above: Performed By: #### N UM #### [facility] ([id number]) [address] [place] [address] 20544 URN MACROSCOPIC NURon 2023 BILIRUBIN ALEKSANDRA Negative Normal NEG [facility] Comment on above: Performed By: #### N UM #### [facility] ([id number]) [address] [place] [address] 34629 BLOOD/HGB ALEKSANDRA Trace Abnormal NEG [facility] Comment on above: Performed By: #### N UM #### [facility] ([id number]) [address] [place] [address] 39103 GLUCOSE ALEKSANDRA Negative Normal NEG [facility] Comment on above: Performed By: #### N UM #### [facility] ([id number]) [address] [place] [address] 94556 KETONES ALEKSANDRA 80 mg/dL Abnormal NEG [facility] Comment on above: Performed By: #### N UM #### [facility] ([id number]) [address] [place] [address] [place] [address] LEUKOCYTE ESTERASE ALEKSANDRA Negative Normal NEG [facility] Comment on above: Performed By: #### N UM #### [facility] ([id number]) [address] [place] [address] 57303 NITRITE ALEKSANDRA Negative Normal NEG [facility] Comment on above: Performed By: #### N UM #### [facility] ([id number]) [address] [place] [address] 09944 PH ALEKSANDRA 6.0 Normal 5.0-8.5 [facility] Comment on above: Performed By: #### N UM #### [facility] ([id number]) [address] [place] [address] 70372 PROTEIN ALEKSANDRA >=300 Abnormal NEG [facility] Comment on above: Performed By: #### N UM #### [facility] ([id number]) [address] [place] [address] 31326 SPECIFIC GRAVITY ALEKSANDRA >=1.030 Normal 1.003-1.035 [facility] Comment on above: Performed By: #### N UM #### [facility] ([id number]) [address] [place] [address] 78391 UROBILINOGEN ALEKSANDRA 1.0 eu/dL Normal <1.1 [facility] Comment on above: Performed By: #### N UM #### [facility] ([id number]) [address] [place] [address] 42983 VAGINITIS PANEL PCRon 2023 VAGINITIS PANEL PCR [...] clinical presentation to determine patient diagnosis. Normal [facility] Comment on above: Performed By: #### N UM #### [facility] ([id number]) [address] [facility] [place] [address] URETHRITIS/DISCHARGE PLUS VA GINITIS (HTRX)on 01-31-2024 ATOPOBIUM VAGINAE 20.240 Abnormal [facility] ATOPOBIUM VAGINAE Detected Abnormal [facility] BVAB 2,3 (BACTERIAL VAGINOSIS ASSOCIATED BACTERIA 2, 3); MOBILUNCUS SPP 14.521 Abnormal [facility] BVAB 2,3 (BACTERIAL VAGINOSIS ASSOCIATED BACTERIA 2, 3); MOBILUNCUS SPP Detected Abnormal [facility] OZZIE ALBICANS, PARAPSILOSIS, TROPICALIS 0.000 [facility] OZZIE ALBICANS, PARAPSILOSIS, TROPICALIS Not detected [facility] OZZIE GLABRATA 0.000 [facility] OZZIE GLABRATA Not detected [facility] OZZIE KRUSEI 0.000 [facility] OZZIE KRUSEI Not detected [facility] CHLAMYDIA TRACHOMATIS 0.000 [facility] CHLAMYDIA TRACHOMATIS Not detected N [facility] ERMB, C; MEFA 22.470 Abnormal [facility] ERMB, C; MEFA Detected Abnormal [facility] GARDNERELLA VAGINALIS 25.182 Abnormal [facility] GARDNERELLA VAGINALIS Detected Abnormal [facility] Interpretation and review of laboratory results Abnormal [facility] MEGASPHAERA (TYPES 1, 2) 21.331 Abnormal [facility] MEGASPHAERA (TYPES 1, 2) Detected Abnormal [facility] MYCOPLASMA GENITALIUM 0.000 [facility] MYCOPLASMA GENITALIUM Not detected N [facility] NEISSERIA GONORRHOEAE 0.000 [facility] NEISSERIA GONORRHOEAE Not detected N [facility] TET B, TET M 22.938 Abnormal [facility] TET B, TET M Detected Abnormal [facility] TRICHOMONAS VAGINALIS 0.000 [facility] TRICHOMONAS VAGINALIS Not detected N [facility] Urinalysis macro (dipstick) panel (U)on 01-29-2024 Bilirubin, UA Positive Negative - 4(70) +++ mg/dL [facility] Comment on above: small Blood, UA Negative Negative - 50 Papo/mcL [facility] Clarity, UA Cloudy [facility] Color, UA Yellow [facility] Glucose, UA Negative Negative - 2000(110) ++++ mg/dL [facility] Interpretation and review of laboratory results Abnormal [facility] Ketones, UA Positive Negative - 160(16) ++++ mg/dL [facility] Comment on above: trace Leukocytes, UA Negative Negative - 500+++ Akash/mcL [facility] Nitrite, UA Positive Negative - Positive [facility] pH, UA 6.0 5 - 9 [facility] Protein, UA Trace Negative - 1999(20) ++++ mg/dL [facility] Spec Grav, UA 1.030 1 - 1.03 [facility] Urobilinogen, UA 4.0 0.2 - 12 mg/dL [facility] ALL CBC WITH AUTO DIFFon BASOPHILS ABSOLUTE AUTO 0.0 [facility] Basophils/100 WBC (Bld) 0.3 % 0.2 - 2.0 % [facility] Eosinophils/100 WBC (Bld) 2.3 % 0.9 - 7.0 % [facility] Erythrocyte distribution width (RBC) [Ratio] 12.7 % 11.0 - 15.0 % [facility] Hematocrit (Bld) [Volume fraction] 31.8 % Low 36.0 - 48.0 % [facility] Hemoglobin (Bld) [Mass/Vol] 10.3 g/dL Low 12.0 - 16.0 g/dL [facility] IMMATURE GRANULOCYTES ABS AUTO 0.05 High [facility] Immature granulocytes/100 WBC (Bld) 0.4 % 0.0 - 0.5 % [facility] Interpretation and review of laboratory results Abnormal [facility] LYMPHOCYTES ABSOLUTE AUTO 2.4 [facility] Lymphocytes/100 WBC (Bld) 21.2 % 20.5 - 60.0 % [facility] MCH (RBC) [Entitic mass] 29.9 pg 26.7 - 34.0 pg [facility] MCHC (RBC) [Mass/Vol] 32.4 g/dL 29.9 - 35.2 g/dL [facility] MCV (RBC) [Entitic vol] 92.2 fL 81.0 - 99.0 fL [facility] MONOCYTES ABSOLUTE AUTO 0.8 [facility] Monocytes/100 WBC (Bld) 6.9 % 1.7 - 12.0 % [facility] NEUTROPHILS ABSOLUTE AUTO 8.0 High [facility] Neutrophils/100 WBC (Bld) 68.9 % 43.0 - 75.0 % [facility] Platelet mean volume (Bld) [Entitic vol] 10.9 fL 9.5 - 13.5 fL [facility] TBH EO # 0.[address] [facility] PLT [address] [facility] RBC 3.45 Low [facility] TB WBC 11.5 High [facility] TYPE AND SCREENon 2023 ABO and Rh group Nom (Bld) Blood group B Rh(D) positive [facility] , [facility] MLR HEMOGLOBIN A1Con 024 Glucose [Mass/Vol] 82 mg/dL [facility] HbA1c (Bld) [Mass fraction] 4.5 % 4.5 - 6.2 % [facility] Comment on above: ADA RECOMMENDED LIMI T 4.0 - 6.0 ADA THERAPEUTIC TARGET < 7.0 ACTION SUGGESTED > 7.0 [facility] CBC AND AUTO DIFFon 12-20-19 24 ABSOLUTE BASOPHIL 0.1 X10E9/L Normal 0.0-0.2 [facility] Comment on above: Performed By: #### Marco Antonio ATKINSON CMP, #### [facility] ([id number]) [address] [place] [address] 79106 ABSOLUTE NEUTROPHIL 11.7 X10E9/L High 1.5-6.6 [facility] Comment on above: Performed By: #### Marco Antonio ATKINSON CMP, #### [facility] ([id number]) [address] [place] [address] 96576 Basophils/100 WBC (Bld) 0.4 % Normal [facility] Comment on above: Performed By: #### Marco Antonio ATKINSON CMP, #### [facility] ([id number]) [address] [place] [address] 33910 Eosinophils (Bld) [#/Vol] 0.3 10*3/uL Normal 0.0-0.4 [facility] Comment on above: Performed By: #### Marco Antonio ATKINSON CMP, #### [facility] ([id number]) [address] [place] [address] 94234 Eosinophils/100 WBC (Bld) 1.6 % Normal [facility] Comment on above: Performed By: #### Marco Antonio ATKINSON [facility], #### [facility] ([id number]) [address] [place] [address] 11751 Erythrocyte distribution width (RBC) [Ratio] 13.0 % Normal 11.5-15.0 [facility] Comment on above: Performed By: #### Marco Antonio ATKINSON [facility], #### [facility] ([id number]) [address] [place] [address] 47777 Hematocrit (Bld) [Volume fraction] 33.1 % Low 35-47 [facility] Comment on above: Performed By: #### Marco Antonio ATKINSON CMP, #### [facility] ([id number]) [address] [place] [address] 82741 Hemoglobin (Bld) [Mass/Vol] 11.1 g/dL Low 11.7-15.5 [facility] Comment on above: Performed By: #### Marco Antonio ATKINSON CMP, #### [facility] ([id number]) [address] [place] [address] 63144 Lymphocytes (Bld) [#/Vol] 2.6 10*3/uL Normal 1.0-3.5 [facility] Comment on above: Performed By: #### Marco Antonio ATKINSON CMP, #### [facility] ([id number]) [address] [place] [address] 76424 Lymphocytes/100 WBC (Bld) 16.5 % Normal [facility] Comment on above: Performed By: #### Marco Antonio ATKINSON CMP, #### [facility] ([id number]) [address] [place] [address] 63748 MCH (RBC) [Entitic mass] 30.3 pg Normal 27-34 [facility] Comment on above: Performed By: #### Marco Antonio ATKINSON CMP, #### [facility] ([id number]) [address] [place] [address] 27940 MCHC (RBC) [Mass/Vol] 33.6 g/dL Normal 32-36 [facility] Comment on above: Performed By: #### Marco Antonio ATKINSON CMP, #### [facility] ([id number]) [address] [place] [address] 79052 MCV (RBC) [Entitic vol] 90 fL Normal 80-100 [facility] Comment on above: Performed By: #### Marco Antonio ATKINSON CMP, #### [facility] ([id number]) [address] [place] [address] 69476 Monocytes (Bld) [#/Vol] 1.2 10*3/uL High 0-0.9 [facility] Comment on above: Performed By: #### Marco Antonio ATKINSON CMP, #### [facility] ([id number]) [address] [place] [address] 82267 Monocytes/100 WBC (Bld) 7.5 % Normal [facility] Comment on above: Performed By: #### Marco Antonio ATKINSON CMP, #### [facility] ([id number]) [address] [place] [address] 29855 Neutrophils/100 WBC (Bld) 74.0 % Normal [facility] Comment on above: Performed By: #### Marco Antonio ATKINSON, CMP, #### [facility] ([id number]) [address] [place] [address] 26428 Platelet mean volume (Bld) [Entitic vol] 9.1 fL Normal 7-12 [facility] Comment on above: Performed By: #### Marco Antonio ATKINSON, CMP, #### [facility] ([id number]) [address] [place] [address] 06805 Platelets (Bld) [#/Vol] 385 10*3/uL Normal 150-450 [facility] Comment on above: Performed By: #### C [place] CMP, #### [facility] ([id number]) [address] [place] [id number] RBC COUNT 3.67 X10E12/L Low 3.80-5.20 [facility] Comment on above: Performed By: #### C [place], CMP, #### [facility] ([id number]) [address] [place] [id number] WBC (Bld) [#/Vol] 15.8 10*3/uL High 4.0-11.0 [facility] Comment on above: Performed By: #### Marco Antonio ATKINSON, CMP, #### [facility] ([id number]) [address] [place] [id number] COMPREHENSIVE METABOLIC PANE [facility] 12-20-2023 Albumin [Mass/Vol] 4.2 g/dL Normal 3.2-5.3 [facility] Comment on above: Performed By: #### C CHINA, CMP, #### [facility] ([id number]) [address] [place] [address] ALP [Catalytic activity/Vol] 39 U/L Normal 39-130 [facility] Comment on above: Performed By: #### C BCA, CMP, #### [facility] ([id number]) [address] [place] [address] 61395 ALT [Catalytic activity/Vol] 14 U/L Normal 0-31 [facility] Comment on above: Performed By: #### C BCA, CMP, #### [facility] ([id number]) [address] [place] [address] 55725 Anion gap [Moles/Vol] 6 mmol/L Normal 5-15 [facility] Comment on above: Performed By: #### C BCA, CMP, #### [facility] ([id number]) [address] [place] [address] 94673 AST [Catalytic activity/Vol] 20 U/L Normal 0-41 [facility] Comment on above: Performed By: #### C BCA, CMP, #### [facility] ([id number]) [address] [place] [address]35 Bilirubin [Mass/Vol] 0.6 mg/dL Normal 0.3-1.2 [facility] Comment on above: Performed By: #### C BCA, CMP, #### [facility] ([id number]) [address] [place] [address] 13814 Calcium [Mass/Vol] 8.9 mg/dL Normal 8.5-10.5 [facility] Comment on above: Performed By: #### C BCA, CMP, #### [facility] ([id number]) [address] [place] [address] 88730 Chloride [Moles/Vol] 104 mmol/L Normal 98-109 [facility] Comment on above: Performed By: #### C BCA, CMP, #### [facility] ([id number]) [address] [place] [address] 68363 CO2 [Moles/Vol] 22 mmol/L Normal 22-32 [facility] Comment on above: Performed By: #### C BCA, CMP, #### [facility] ([id number]) [address] [place] [address] 20643 Creatinine [Mass/Vol] 0.56 mg/dL Normal 0.40-1.00 [facility] Comment on above: Result Comment: METH OD TRACEABLE TO IDMS STANDARD Performed By: #### C BCA, CMP, #### [facility] ([id number]) [address] [place] [address] 24605 eGFR (CKD-EPI) NON-RACE DEPENDENT >90 Normal >59 [facility] Comment on above: Result Comment: Reported eGFR is based on the CKD-EPI 2020 equation that does not use a race coefficient. Performed By: #### C CEE ATKINSON, #### [facility] ([id number]) [address] [place] [address] 43927 Glucose [Mass/Vol] 112 mg/dL High 65-99 [facility] Comment on above: Performed By: #### C CEE ATKINSON, #### [facility] ([id number]) [address] [place] [address] 11552 Potassium [Moles/Vol] 3.2 mmol/L Low 3.5-5.0 [facility] Comment on above: Performed By: #### C CEE ATKINSON, #### [facility] ([id number]) [address] [place] [address] 98681 Protein [Mass/Vol] 7.6 g/dL Normal 6.0-8.0 [facility] Comment on above: Performed By: #### C CEE ATKINSON, #### [facility] ([id number]) [address] [place] [address] 06680 Sodium [Moles/Vol] 132 mmol/L Low 134-146 [facility] Comment on above: Performed By: #### C CEE ATKINSON, #### [facility] ([id number]) [address] [place] [address] 39090 Urea nitrogen [Mass/Vol] 9 mg/dL Normal 5-23 [facility] Comment on above: Performed By: #### C CHINA CMP, #### [facility] ([id number]) [address] [place] [address] HCG ( test) Ql (U)o n 12-20-2023 Beta HCG ( test) Ql (U) Positive Abnormal NEG [facility] Comment on above: Performed By: #### 2 106-3 #### [facility] ([id number]) [address] [place] [address] 46523 HCG.beta subunit IA 3rd IS Q non 12-20-2023 [place] [address] m[IU]/mL Normal P [facility] Comment on above: Result Comment: NEW [...] neoplasms. Performed By: #### C BCA, CMP, [id number] #### [facility] ([id number]) [address] [place] [address] 15826 URINE CULTUREon 12-20-2023 Bacteria identified Cx Nom (U) CULTURE RESULTS NO GROWTH AT <1000 CFU/mL Normal [facility] Comment on above: Performed By: #### 6 30-4 #### [facility] ([id number]) [address] [place] [address] URN MACROSCOPIC NURon 2023 BILIRUBIN ALEKSANDRA Negative Normal NEG [facility] Comment on above: Performed By: #### N UM #### [facility] ([id number]) [address] [place] [address] [place] [address] BLOOD/HGB ALEKSANDRA Trace Abnormal NEG [facility] Comment on above: Performed By: #### N UM #### [facility] ([id number]) [address] [place] [address], [place] [address] GLUCOSE ALEKSANDRA Negative Normal NEG [facility] Comment on above: Performed By: #### N UM #### [facility] ([id number]) [address] [place] [address] [place] [address] KETONES ALEKSANDRA Negative Normal NEG [facility] Comment on above: Performed By: #### N UM #### [facility] ([id number]) [address] [place] [address] [place] [address] LEUKOCYTE ESTERASE ALEKSANDRA Trace Abnormal NEG [facility] Comment on above: Performed By: #### N UM #### [facility] ([id number]) [address] [place] [address] [place] [address] NITRITE ALEKSANDRA Negative Normal NEG [facility] Comment on above: Performed By: #### N UM #### [facility] ([id number]) [address] [place] [address] [place] [address] PH ALEKSANDRA 6.5 Normal 5.0-8.5 [facility] Comment on above: Performed By: #### N UM #### [facility] ([id number]) [address] [place] [address], [place] [address] PROTEIN ALEKSANDRA Negative Normal NEG [facility] Comment on above: Performed By: #### N UM #### [facility] ([id number]) [address] [place] [address], [place] [address] SPECIFIC GRAVITY ALEKSANDRA 1.010 Normal 1.003-1.035 [facility] Comment on above: Performed By: #### N UM #### [facility] ([id number]) [address] [facility] [place] [address] UROBILINOGEN ALEKSANDRA 1.0 eu/dL Normal <1.1 [facility] Comment on above: Performed By: #### N UM #### [facility] ([id number]) [address] [facility] [place] [address] Hgb Electrophoresison 2023 Hgb Elect.Interp. Normal Hb electrophoretic pattern. HbA = 97.2% HbA2 = 2.8% Normal Values Normal [facility] Comment on above: Result Comment: (Hem oglobin A= 96.8 to 97.8% Hemoglobin A2= 2.2 to 3.2%) Performed By: #### F EBC, HGBE, B12FOL #### [address] [address] [employer]: Severino Jacobson MD #### ADELINE B[place], FERI #### [facility] [address] [place] [address] [employer]: Lukasz Puga MD Pathologist Review: ELECTRONICALLY SIGNED. AUTUMN MENDOZA M.D. [facility] Comment on above: Performed By: #### F EBC, HGBE, B12FOL #### [address] [address] [employer]: Severino Jacobson MD #### FINNCT CDP, FERI #### [facility] [address] [place] [address] [employer]: Lukasz Puga MD Smear to Pathologiston 12-07 Smear to Pathologist ELECTRONICALLY SIGNED. MITA REGAN M.D. [facility] Comment on above: Performed By: #### P ATH #### [address] [address] [employer]: Severino Jacobson MD B12/Folate Panelon Cobalamin (Vitamin B12) [Mass/Vol] 717 pg/mL Normal 232-1245 [facility] Comment on above: Performed By: #### F EBC, HGBE, B12FOL #### [address] [address] [employer]: Severino Jacobson MD #### RETCT, CDP, FERI #### [facility] [address] [place] [address] [employer]: Lukasz Puga MD Folic Acid 12.2 ng/mL Normal 4.8-24.2 [facility] Comment on above: Performed By: #### F EBC, HGBE, B12FOL #### [address] [address] [employer]: Severino Jacobson MD #### RETCT, CDP, FERI #### [facility] [address] [place] [address] [employer]: Lukasz Puga MD CBC with Diffon 12-05-2023 Abs. Atypical Lymphs 0.14 k/uL Normal [facility] Comment on above: Performed By: #### F EBC, HGBE, B12FOL #### [address] [address] [employer]: Severino Jacobson MD #### RETCT, CDP, FERI #### [facility] [address] [place] [address] [employer]: Lukasz Puga MD Abs. Basophil 0.07 k/uL Normal 0.0-0.2 [facility] Comment on above: Performed By: #### F EBC, HGBE, B12FOL #### [address] [address] [employer]: Severino Jacobson MD #### RETCT, CDP, FERI #### [facility] [address] [place] [address] [employer]: Lukasz Puga MD Abs.Imm.Granulocyte 0.00 k/uL Normal 0.00-0.30 [facility] Comment on above: Performed By: #### F EBC, HGBE, B12FOL #### [address] [address] [employer]: Severino Jacobson MD #### RETCT, CDP, FERI #### [facility] [address] [place] [address] [employer]ic: Lukasz Puga MD Abs.Neutrophil (Seg) 2.80 k/uL Normal 1.8-7.7 [facility] Comment on above: Performed By: #### F EBC, HGBE, B12FOL #### [address] [address] [employer]: Severino Jacobson MD #### RETCT, CDP, FERI #### [facility] [address] [place] [address] [employer]ic: Lukasz Puga MD Atypical Lymphs 2 % Normal [facility] Comment on above: Performed By: #### F EBC, HGBE, B12FOL #### [address] [address] [employer]: Severino Jacobson MD #### RETCT, CDP, FERI #### [facility] [address] [place] [address] [employer]: Lukasz Puga MD Basophils/100 WBC (Bld) 1 % Normal [facility] Comment on above: Performed By: #### F EBC, HGBE, B12FOL #### [address] [address] [employer]: Severino Jacobson MD #### RETCT, CDP, FERI #### [facility] [address] [place] [address] [employer]ic: Lukasz Puga MD Eosinophils (Bld) [#/Vol] 0.07 10*3/uL Normal 0.0-0.4 [facility] Comment on above: Performed By: #### F EBC, HGBE, B12FOL #### [address] [address] [employer]: Severino Jacobson MD #### RETCT, CDP, FERI #### [facility] [address] [place] [address] [employer]: Lukasz Puga MD Eosinophils/100 WBC (Bld) 1 % Normal 1-4 [facility] Comment on above: Performed By: #### F EBC, HGBE, B12FOL #### [address] [address] [employer]ic: Severino Jacobson MD #### RETCT, CDP, FERI #### [facility] [address] [place] [address] [employer]: Lukasz Puga MD Immature granulocytes/100 WBC (Bld) 0 % Normal 0 [facility] Comment on above: Performed By: #### F EBC, HGBE, B12FOL #### [address] [address] [employer]ic: Severino Jacobson MD #### RETCT, CDP, FERI #### [facility] [address] [place] [address] [employer]ic: Lukasz Puga MD Lymphocytes (Bld) [#/Vol] 3.29 10*3/uL Normal 1.0-4.8 [facility] Comment on above: Performed By: #### F EBC, HGBE, B12FOL #### [address] [address] [employer]ic: Severino Jacobson MD #### RETCT, CDP, FERI #### [facility] [address] [place] [address] [employer]: Lukasz Puga MD Lymphocytes/100 WBC (Bld) 47 % High 24-44 [facility] Comment on above: Performed By: #### F EBC, HGBE, B12FOL #### [address] [address] [employer]ic: Severino Jacobson MD #### VALENCIA, CDP, FERI #### [facility] [address] [place] [address] [employer]ic: Lukasz Puga MD Monocytes (Bld) [#/Vol] 0.63 10*3/uL Normal 0.2-0.8 [facility] Comment on above: Performed By: #### F EBC, HGBE, B12FOL #### [address] [address] [employer]ic: Severino Jacobson MD #### RETCT, CDP, FERI #### [facility] [address] [place] [address] [employer]ic: Lukasz Puga MD Monocytes/100 WBC (Bld) 9 % High 1-7 [facility] Comment on above: Performed By: #### F EBC, HGBE, B12FOL #### [address] [address] [employer]ic: Severino Jacobson MD #### RETCT, CDP, FERI #### [facility] [address] [place] [address] [employer]ic: Lukasz Puga MD Neutrophil (Seg) 40 % Normal 36-66 [facility] Comment on above: Performed By: #### F EBC, HGBE, B12FOL #### [address] [address] [employer]ic: Severino Jacobson MD #### RETCT, CDP, FERI #### [facility] [address] [place] [address] [employer]ic: Lukasz Puga MD Erythrocyte distribution width (RBC) [Ratio] 12.6 % Normal 11.8-14.4 [facility] Comment on above: Performed By: #### F EBC, HGBE, B12FOL #### [address] [address] [employer]ic: Severino Jacobson MD #### RETCT, CDP, FERI #### [facility] [address] [place] [address] [employer]ic: Lukasz Puga MD Hematocrit (Bld) [Volume fraction] 31.0 % Low 36.3-47.1 [facility] Comment on above: Performed By: #### F EBC, HGBE, B12FOL #### [address] [address] [employer]: Severino Jacobson MD #### RETCT, CDP, FERI #### [facility] [address] [place] [address] [employer]ic: Lukasz Puga MD Hemoglobin (Bld) [Mass/Vol] 9.9 g/dL Low 11.9-15.1 [facility] Comment on above: Performed By: #### F EBC, HGBE, B12FOL #### [address] [address] [employer]ic: Severino Jacobson MD #### RETCT, CDP, FERI #### [facility] [address] [place] [address] [employer]ic: Lukasz Puga MD MCH (RBC) [Entitic mass] 29.8 pg Normal 25.2-33.5 [facility] Comment on above: Performed By: #### F EBC, HGBE, B12FOL #### [address] [address] [employer]ic: Severino Jacobson MD #### RETCT, CDP, FERI #### [facility] [address] [place] [address] [employer]ic: Lukasz Puga MD MCHC (RBC) [Mass/Vol] 31.9 g/dL Normal 28.4-34.8 [facility] Comment on above: Performed By: #### F EBC, HGBE, B12FOL #### [address] [address] [employer]ic: Severino Jacobson MD #### VALENCIA, CDP, FERI #### [facility] [address] [place] [address] [employer]ic: Lukasz Puga MD MCV (RBC) [Entitic vol] 93.4 fL Normal 82.6-102.9 [facility] Comment on above: Performed By: #### F EBC, HGBE, B12FOL #### [address] [address] [employer]ic: Severino Jacobson MD #### RETCT, CDP, FERI #### [facility] [address] [place] [address] [employer]ic: Lukasz Puga MD NRBC Automated 0.0 per 100 WBC Normal 0.0 [facility] Comment on above: Performed By: #### F EBC, HGBE, B12FOL #### [address] [address] [employer]ic: Severino Jacobson MD #### RETCT, CDP, FERI #### [facility] [address] [place] [address] [employer]ic: Lukasz Puga MD Platelet mean volume (Bld) [Entitic vol] 9.9 fL Normal 8.1-13.5 [facility] Comment on above: Performed By: #### F EBC, HGBE, B12FOL #### [address] [address] [employer]ic: Severino Jacobson MD #### RETCT, CDP, FERI #### [facility] [address] [place] [address] [employer]ic: Lukasz Puga MD Platelets (Bld) [#/Vol] 296 10*3/uL Normal 138-453 [facility] Comment on above: Performed By: #### F EBC, HGBE, B12FOL #### [address] [address] [employer]ic: Severino Jacobson MD #### RETCT, CDP, FERI #### [facility] [address] [place] [address] [employer]ic: Lukasz Puga MD RBC (Bld) [#/Vol] 3.32 10*6/uL Low 3.95-5.11 [facility] Comment on above: Performed By: #### F EBC, HGBE, B12FOL #### [address] [address] [employer]ic: Severino Jacobson MD #### RETCT, CDP, FERI #### [facility] [address] [place] [address] [employer]ic: Lukasz Puga MD WBC (Bld) [#/Vol] 7.0 10*3/uL Normal 3.5-11.3 [facility] Comment on above: Performed By: #### F EBC, HGBE, B12FOL #### [address] [address] [employer]ic: Severino Jacobson MD #### RETCT, CDP, FERI #### [facility] [address] [place] [address] [employer]ic: Lukasz Puga MD Ferritinon 12-05-2023 Ferritin [Mass/Vol] 39 ng/mL Normal 13-150 [facility] Comment on above: Performed By: #### F EBC, HGBE, B12FOL #### [address] [address] [employer]ic: Severino Jacobson MD #### RETCT, CDP, FERI #### [facility] [address] [place] [address] [employer]ic: Lukasz Puga MD Iron Binding Cap.on 12-05-19 24 % Fe Saturation 14 % Low 20-55 [facility] Comment on above: Performed By: #### F EBC, HGBE, B12FOL #### [address] [address] [employer]ic: Severino Jacobson MD #### RETCT, CDP, FERI #### [facility] [address] [place] [address] [employer]ic: Lukasz Puga MD Iron [Mass/Vol] 42 ug/dL Normal 37-145 [facility] Comment on above: Performed By: #### F EBC, HGBE, B12FOL #### [address] [address] [employer]ic: Severino Jacobson MD #### RETCT, CDP, FERI #### [facility] [address] [place] [address] [employer]ic: Lukasz Puga MD Total Fe Binding Cap 310 ug/dL Normal 250-450 [facility] Comment on above: Performed By: #### F EBC, HGBE, B12FOL #### [address] [address] [employer]ic: Severino Jacobson MD #### RETCT, CDP, FERI #### [facility] [address] [place] [address] [employer]ic: Lukasz Puga MD Unbound Fe Bind Cap 268 ug/dL Normal 112-347 [facility] Comment on above: Performed By: #### F EBC, HGBE, B12FOL #### [address] [address] [employer]ic: Severino Jacobson MD #### FINNCT, CDP, FERI #### [facility] [address] [place] [address] [employer]ic: Lukasz Puga MD Retic Counton 12-05-2023 Absolute Retic 0.062 M/uL Normal 0.030-0.080 [facility] Comment on above: Performed By: #### F EBC, HGBE, B12FOL #### [address] [address] [employer]ic: Severino Jacobson MD #### RETCT, CDP, FERI #### [facility] [address] [place] [address] [employer]ic: Lukasz Puga MD IRF 9.6 % Normal 2.7-18.3 [facility] Comment on above: Performed By: #### F EBC, HGBE, B12FOL #### [address] [id number] [employer] Mechanic: Severino Jacobson MD #### RETCT, CDP, FERI #### [facility] [address] [place] [address] [employer]ic: Lukasz Puga MD Retic Count 1.8 % Normal 0.5-1.9 [facility] Comment on above: Performed By: #### F EBC, HGBE, B12FOL #### [address] [id number] [employer] Mechanic: Severino Jacobson MD #### RETCT, CDP, FERI #### [facility] [address] [place] [address] [employer]ic: Lukasz Puga MD Retic Hemoglobin 28.8 pg Normal 28.2-35.7 [facility] Comment on above: Performed By: #### F EBC, HGBE, B12FOL #### [address] [id number] [employer] Mechanic: Severino Jacobson MD #### RETCT, CDP, FERI #### [facility] [address] [place] [address] [id number] [employer] Mechanic: Lukasz Puga MD Surgical Pathology Reporton 12-05-2023 Surgical Pathology Report (NOTE) [id number] [facility] CONSULTING PATHOLOGISTS [facility] ANATOMIC PATHOLOGY [address] [place] [id number] SURGICAL PATHOLOGY CONSULTATION Patient Name: HOMERO DE LEON MR#: [id number] Specimen #[id number] Procedures/Addenda PERIPHERAL BLOOD REPORT Date Ordered: 12/07/2023 Status: Signed Out Date Complete: 12/08/2023 By: Mita Regan M.D. Date Reported: 12/08/2023 INTERPRETATION Peripheral blood: - Normocytic normochromic anemia with unremarkable red blood cell morphology. - White blood cells with normal morphology. No blasts. - Platelets with unremarkable morphology. RESULTS-COMMENTS PERIPHERAL BLOOD STUDY CBC: Please see the electronic health record for CBC parameters ([id number], 12/05/2023, 13:35). PLATELETS: Platelets show normal morphology. LEUKOCYTES: White blood cells show normal morphology. No atypical lymphocytes. No dysplasia. There are no blasts. ERYTHROCYTES: Normocytic normochromic anemia. Red blood cells show normal morphology. Note: The electronic health record is reviewed. Mita Regan M.D. Source: A: Peripheral Blood Normal [facility] CBC with Diffon 11-06-2023 Abs. Basophil 0.04 k/uL Normal 0.00-0.20 [facility] Comment on above: Performed By: #### C MEGHA MIJARES, LIPRF #### [place] [address] [employer]ic: Severino Jacobson MD Abs.Imm.Granulocyte <0.03 Normal 0.00-0.30 [facility] Comment on above: Performed By: #### C MEGHA MIJARES, LIPRF #### [facility] [employer] [address] [place] [address] [employer] Mechanic: Severino Jacobson MD Abs.Neutrophil (Seg) 4.76 k/uL Normal 1.50-8.10 [facility] Comment on above: Performed By: #### C MEGHA MIJARES, LIPRF #### [facility] [employer] [address] [place] [address] [employer] Mechanic: Severino Jacobson MD Basophils/100 WBC (Bld) 1 % Normal 0-2 [facility] Comment on above: Performed By: #### C MEGHA MIJARES, LIPRF #### [facility] [employer] [facility] [place] [address] [employer] Mechanic: Severino Jacobson MD Eosinophils (Bld) [#/Vol] 0.24 10*3/uL Normal 0.00-0.44 [facility] Comment on above: Performed By: #### C DP, CP, LIPRF #### [address] [address] [employer]ic: Severino Jacobson MD Eosinophils/100 WBC (Bld) 3 % Normal 1-4 [facility] Comment on above: Performed By: #### C DP, CP, LIPRF #### [address] [address] [employer] Mechanic: Severino Jacobson MD Erythrocyte distribution width (RBC) [Ratio] 12.3 % Normal 11.8-14.4 [facility] Comment on above: Performed By: #### C DP, CP, LIPRF #### [address] [address] [employer] Mechanic: Severino Jacobson MD Hematocrit (Bld) [Volume fraction] 35.5 % Low 36.3-47.1 [facility] Comment on above: Performed By: #### C DP, CP, LIPRF #### [address] [address] [employer] Mechanic: Severino Jacobson MD Hemoglobin (Bld) [Mass/Vol] 11.2 g/dL Low 11.9-15.1 [facility] Comment on above: Performed By: #### C DP, CP, LIPRF #### [facility] [employer] [address] [place] [address] [employer]ic: Severino Jacobson MD Immature granulocytes/100 WBC (Bld) 0 % Normal 0 [facility] Comment on above: Performed By: #### C DP, CP, LIPRF #### [address] [address] [employer]ic: Severino Jacobson MD Lymphocytes (Bld) [#/Vol] 2.47 10*3/uL Normal 1.10-3.70 [facility] Comment on above: Performed By: #### C DP, CP, LIPRF #### [place] [address] [employer]ic: Severino Jacobson MD Lymphocytes/100 WBC (Bld) 31 % Normal 24-43 [facility] Comment on above: Performed By: #### C DP, CP, LIPRF #### [place] [address] [employer]ic: Severino Jacobson MD MCH (RBC) [Entitic mass] 29.6 pg Normal 25.2-33.5 [facility] Comment on above: Performed By: #### C DP, CP, LIPRF #### [place] [address] [employer]ic: Severino Jacobson MD MCHC (RBC) [Mass/Vol] 31.5 g/dL Normal 28.4-34.8 [facility] Comment on above: Performed By: #### C DP, CP, LIPRF #### [place] [address] [employer]ic: Severino Jacobson MD MCV (RBC) [Entitic vol] 93.9 fL Normal 82.6-102.9 [facility] Comment on above: Performed By: #### C DP, CP, LIPRF #### [place] [address] [employer]ic: Severino Jacobson MD Monocytes (Bld) [#/Vol] 0.56 10*3/uL Normal 0.10-1.20 [facility] Comment on above: Performed By: #### C DP, CP, LIPRF #### [address] [address] [employer]ic: Severino Jacobson MD Monocytes/100 WBC (Bld) 7 % Normal 3-12 [facility] Comment on above: Performed By: #### C DP, CP, LIPRF #### [address] [address] [employer] Mechanic: Severino Jacobson MD Neutrophil (Seg) 58 % Normal 36-65 [facility] Comment on above: Performed By: #### C DP, CP, LIPRF #### [address] [address] [employer] Mechanic: Severino Jacobson MD NRBC Automated 0.0 per 100 WBC Normal 0.0 [facility] Comment on above: Performed By: #### C DP, CP, LIPRF #### [address] [address] [employer]ic: Severino Jacobson MD Platelet mean volume (Bld) [Entitic vol] 10.5 fL Normal 8.1-13.5 [facility] Comment on above: Performed By: #### C DP, CP, LIPRF #### [address] [address] [employer]ic: Severino Jacobson MD Platelets (Bld) [#/Vol] 501 10*3/uL High 138-453 [facility] Comment on above: Performed By: #### C DP, CP, LIPRF #### [facility] [address] [place] [address] [employer]ic: Severino Jacobson MD RBC (Bld) [#/Vol] 3.78 10*6/uL Low 3.95-5.11 [facility] Comment on above: Performed By: #### C DP, CP, LIPRF #### [address] [address] [employer] Mechanic: Severino Jacobson MD WBC (Bld) [#/Vol] 8.1 10*3/uL Normal 3.5-11.3 [facility] Comment on above: Performed By: #### C DP, CP, LIPRF #### [address] [address] [employer]ic: Severino Jacobson MD Comp Metabolic Profon 2023 Albumin [Mass/Vol] 4.8 g/dL Normal 3.5-5.2 [facility] Comment on above: Performed By: #### C DP, CP, LIPRF #### [address] [address] [employer]ic: Severino Jacobson MD Albumin/Glob Ratio 2.0 Normal 1.0-2.5 [facility] Comment on above: Performed By: #### C DP, CP, LIPRF #### [address] [address] [employer]ic: Severino Jacobson MD Alkaline Phos 43 U/L Normal 35-104 [facility] Comment on above: Performed By: #### C DP, CP, LIPRF #### [address] [address] [employer]ic: Severino Jacobson MD ALT [Catalytic activity/Vol] 14 U/L Normal 10-35 [facility] Comment on above: Performed By: #### C DP, CP, LIPRF #### [facility] [address] [place] [address] [employer]ic: Severino Jacobson MD Anion gap [Moles/Vol] 10 mmol/L Normal 9-16 [facility] Comment on above: Performed By: #### C DP, CP, LIPRF #### [address] [address] [employer]ic: Severino Jacobson MD AST [Catalytic activity/Vol] 27 U/L Normal 10-35 [facility] Comment on above: Performed By: #### C MEGHA MIJARES, LIPRF #### [address] [address] [employer]ic: Severino Jacobson MD Bilirubin [Mass/Vol] 0.6 mg/dL Normal 0.00-1.20 [facility] Comment on above: Performed By: #### C DP CP, LIPRF #### [facility] [address] [place] [address] [employer]ic: Severino Jacobson MD Calcium [Mass/Vol] 9.5 mg/dL Normal 8.6-10.4 [facility] Comment on above: Performed By: #### C DYLLAN CP, LIPRF #### [address] [address] [employer]ic: Severino Jacobson MD Chloride [Moles/Vol] 103 mmol/L Normal 98-107 [facility] Comment on above: Performed By: #### C DYLLAN CP, LIPRF #### [address] [address] [employer]ic: Severino Jacobson MD CO2 [Moles/Vol] 26 mmol/L Normal 20-31 [facility] Comment on above: Performed By: #### C DP CP, LIPRF #### [address] [address] [employer]ic: Severino Jacobson MD Creatinine [Mass/Vol] 0.8 mg/dL Normal 0.50-0.90 [facility] Comment on above: Performed By: #### C DYLLAN CP, LIPRF #### [facility] [address] [place] [address] [employer]: Severino Jacobson MD GFR/1.73 sq M.predicted among non-blacks MDRD (S/P/Bld) [Vol rate/Area] mL/min/{1.73_m2} Normal >60 [facility] Comment on above: Result Comment: These [...] By: #### C DP CP, LIPRF #### [address] [address] [employer]ic: Severino Jacobson MD Glucose [Mass/Vol] 90 mg/dL Normal 74-99 [facility] Comment on above: Performed By: #### C DYLLAN CP, LIPRF #### [address] [address] [employer]ic: Severino Jacobson MD Potassium [Moles/Vol] 3.9 mmol/L Normal 3.7-5.3 [facility] Comment on above: Performed By: #### C MEGHA MIJARES, LIPRF #### [address] [address] [employer]ic: Severino Jacobson MD Protein [Mass/Vol] 7.7 g/dL Normal 6.6-8.7 [facility] Comment on above: Performed By: #### C DP CP, LIPRF #### [facility] [address] [place] [address] [employer]ic: Severino Jacobson MD Sodium [Moles/Vol] 139 mmol/L Normal 136-145 [facility] Comment on above: Performed By: #### C DP CP, LIPRF #### [facility] [address] [place] [address] [employer]ic: Severino Jacobson MD Urea nitrogen [Mass/Vol] 12 mg/dL Normal 6-20 [facility] Comment on above: Performed By: #### C DP, CP, LIPRF #### [facility] [address] [place] [address] [employer]ic: Severino Jacobson MD Lipid Prof, Fastingon 2023 Cholesterol [Mass/Vol] 178 mg/dL Normal 0-199 [facility] Comment on above: Result Comment: Cholesterol Guidelines: <200 Desirable 200-240 Borderline >240 Undesirable Performed By: #### C DP, CP, LIPRF #### [address] [address] [employer]ic: Severino Jacobson MD Cholesterol in HDL [Mass/Vol] 50 mg/dL Normal >40 [facility] Comment on above: Result Comment: HDL Guidelines: <40 Undesirable 40-59 Borderline >59 Desirable Performed By: #### C DP, CP, LIPRF #### [place] [address] [employer]ic: Severino Jacobson MD Cholesterol in LDL [Mass/Vol] 115 mg/dL High 0-100 [facility] Comment on above: Result Comment: LDL Guidelines: <100 Desirable 100-129 Near to/above Desirable 130-159 Borderline >159 Undesirable Direct (measured) LDL and calculated LDL are not interchangeable tests. Performed By: #### C DP, CP, LIPRF #### [facility] [employer] [address] [place] [address] [employer]ic: Severino Jacobson MD Cholesterol in VLDL [Mass/Vol] 13 mg/dL Normal [facility] Comment on above: Performed By: #### C DP, CP, LIPRF #### [facility] [address] [place] [address] [employer]ic: Severino Jacobson MD Cholesterol.total/Chol esterol in HDL [Mass ratio] 4.0 {ratio} Normal [facility] Comment on above: Performed By: #### C DP, CP, LIPRF #### [place] [address] [employer]ic: Severino Jacobson MD Triglyceride,Fasting 64 mg/dL Normal 0-149 [facility] Comment on above: Result Comment: Triglyceride Guidelines: <150 Desirable 150-199 Borderline 200-499 High >499 Very high Based on AHA Guidelines for fasting triglyceride, February 2012. Performed By: #### C DP, CP, LIPRF #### [place] [address] [employer]ic: Severino Jacobson MD CBC with Diffon 09-02-2023 Abs. Basophil <0.03 Normal 0.00-0.20 [facility] Comment on above: Performed By: #### C DP LIPRF, CP #### [place] [address] [employer]ic: Severino Jacobson MD Abs.Imm.Granulocyte <0.03 Normal 0.00-0.30 [facility] Comment on above: Performed By: #### C DP LIPRF, CP #### [place] [address] [employer]ic: Severino Jacobson MD Abs.Neutrophil (Seg) 3.88 k/uL Normal 1.50-8.10 [facility] Comment on above: Performed By: #### C DYLLAN LIPKOURTNEY, CP #### [place] [address] [employer]ic: Severino Jacobson MD Basophils/100 WBC (Bld) 0 % Normal 0-2 [facility] Comment on above: Performed By: #### C DP LIPRF, CP #### [place] [address] [employer]ic: Severino Jacobson MD Eosinophils (Bld) [#/Vol] 0.18 10*3/uL Normal 0.00-0.44 [facility] Comment on above: Performed By: #### C DP LIPRF, CP #### [address] [address] [employer]ic: Severino Jacobson MD Eosinophils/100 WBC (Bld) 3 % Normal 1-4 [facility] Comment on above: Performed By: #### C DP, LIPRF, CP #### [place] [address] [employer]ic: Severino Jacobson MD Erythrocyte distribution width (RBC) [Ratio] 12.6 % Normal 11.8-14.4 [facility] Comment on above: Performed By: #### C DYLLAN LIPRF, CP #### [place] [address] [employer]ic: Severino Jacobson MD Hematocrit (Bld) [Volume fraction] 34.6 % Low 36.3-47.1 [facility] Comment on above: Performed By: #### C DP LIPRF, CP #### [place] [address] [employer]ic: Severino Jacobson MD Hemoglobin (Bld) [Mass/Vol] 10.8 g/dL Low 11.9-15.1 [facility] Comment on above: Performed By: #### C DP LIPRF, CP #### [place] [address] [employer]ic: Severino Jacobson MD Immature granulocytes/100 WBC (Bld) 0 % Normal 0 [facility] Comment on above: Performed By: #### C DP, LIPRF, CP #### [address] [address] [employer]ic: Severino Jacobson MD Lymphocytes (Bld) [#/Vol] 2.64 10*3/uL Normal 1.10-3.70 [facility] Comment on above: Performed By: #### C DP LIPRF, CP #### [facility] [address] [place] [address] [employer]ic: Severino Jacobson MD Lymphocytes/100 WBC (Bld) 37 % Normal 24-43 [facility] Comment on above: Performed By: #### C DP, LIPRF, CP #### [facility] [address] [place] [address] [employer]ic: Severino Jacobson MD MCH (RBC) [Entitic mass] 29.7 pg Normal 25.2-33.5 [facility] Comment on above: Performed By: #### C DP LIPRF, CP #### [facility] [address] [place] [address] [employer]ic: Severino Jacobson MD MCHC (RBC) [Mass/Vol] 31.2 g/dL Normal 28.4-34.8 [facility] Comment on above: Performed By: #### C DP, LIPRF, CP #### [place] [address] [employer]ic: Severino Jacobson MD MCV (RBC) [Entitic vol] 95.1 fL Normal 82.6-102.9 [facility] Comment on above: Performed By: #### C DP LIPRF, CP #### [place] [address] [employer]ic: Severino Jacobson MD Monocytes (Bld) [#/Vol] 0.41 10*3/uL Normal 0.10-1.20 [facility] Comment on above: Performed By: #### C DP, LIPRF, CP #### [address] [address] [employer]ic: Severino Jacobson MD Monocytes/100 WBC (Bld) 6 % Normal 3-12 [facility] Comment on above: Performed By: #### C DP, LIPRF, CP #### [address] [address] [employer] Mechanic: Severino Jacobson MD Neutrophil (Seg) 54 % Normal 36-65 [facility] Comment on above: Performed By: #### C DP, LIPRF, CP #### [address] [address] [employer]ic: Severino Jacobson MD NRBC Automated 0.0 per 100 WBC Normal 0.0 [facility] Comment on above: Performed By: #### C DP, LIPRF, CP #### [address] [address] [employer] Mechanic: Severino Jacobson MD Platelet mean volume (Bld) [Entitic vol] 10.7 fL Normal 8.1-13.5 [facility] Comment on above: Performed By: #### C DP, LIPRF, CP #### [address] [address] [employer]ic: Severino Jacobson MD Platelets (Bld) [#/Vol] 460 10*3/uL High 138-453 [facility] Comment on above: Performed By: #### C DP, LIPRF, CP #### [address] [address] [employer] Mechanic: Severino Jacobson MD RBC (Bld) [#/Vol] 3.64 10*6/uL Low 3.95-5.11 [facility] Comment on above: Performed By: #### C DP, LIPRF, CP #### [address] [address] [employer] Mechanic: Severino Jacobson MD WBC (Bld) [#/Vol] 7.2 10*3/uL Normal 3.5-11.3 [facility] Comment on above: Performed By: #### C DP, LIPRF, CP #### [address] [place] [address] [employer]ic: Severino Jacobson MD Comp Metabolic Profon 2023 Albumin [Mass/Vol] 4.4 g/dL Normal 3.5-5.2 [facility] Comment on above: Performed By: #### C DP, LIPRF, CP #### [facility] [address] [place] [address] [employer]ic: Severino Jacobson MD Albumin/Glob Ratio 2.0 Normal 1.0-2.5 [facility] Comment on above: Performed By: #### C DP, LIPRF, CP #### [facility] [address] [place] [address] [employer]ic: Severino Jacobson MD Alkaline Phos 35 U/L Normal 35-104 [facility] Comment on above: Performed By: #### C DP, LIPRF, CP #### [address] [address] [employer] Mechanic: Severino Jacobson MD ALT [Catalytic activity/Vol] 12 U/L Normal 10-35 [facility] Comment on above: Performed By: #### C DP, LIPRF, CP #### [facility] [address] [place] [address] [employer]ic: Severino Jacobson MD Anion gap [Moles/Vol] 9 mmol/L Normal 9-16 [facility] Comment on above: Performed By: #### C DP, LIPRF, CP #### [facility] [address] [place] [address] [employer] Mechanic: Severino Jacobson MD AST [Catalytic activity/Vol] 25 U/L Normal 10-35 [facility] Comment on above: Performed By: #### C DP, LIPRF, CP #### [facility] [address] [place] [address] [employer] Mechanic: Severino Jacobson MD Bilirubin [Mass/Vol] 0.6 mg/dL Normal 0.00-1.20 [facility] Comment on above: Performed By: #### C FANNIE MIJARES CP #### [address] [address] [employer]ic: Severino Jacobson MD Calcium [Mass/Vol] 8.9 mg/dL Normal 8.6-10.4 [facility] Comment on above: Performed By: #### C FANNIE MIJARES, CP #### [address] [address] [employer] Mechanic: Severino Jacobson MD Chloride [Moles/Vol] 107 mmol/L Normal 98-107 [facility] Comment on above: Performed By: #### C FANNIE MIJARES, CP #### [address] [address] [employer] T[employer] Mechanic: Severino Jacobson MD CO2 [Moles/Vol] 24 mmol/L Normal 20-31 [facility] Comment on above: Performed By: #### C FANNIE MIJARES CP #### [address] [address] [employer] Turb[employer] Mechanic: Severino Jacobson MD Creatinine [Mass/Vol] 0.7 mg/dL Normal 0.50-0.90 [facility] Comment on above: Performed By: #### C FANNIE MIJARES, CP #### [address] [address] [employer] T[employer] Mechanic: Severino Jacobson MD GFR/1.73 sq M.predicted among non-blacks MDRD (S/P/Bld) [Vol rate/Area] mL/min/{1.73_m2} Normal >60 [facility] Comment on above: Result Comment: These [...] By: #### C FANNIE MIJARES, CP #### [address] [address] [employer]ic: Severino Jacobson MD Glucose [Mass/Vol] 97 mg/dL Normal 74-99 [facility] Comment on above: Performed By: #### C FANNIE MIJARES, CP #### [address] [address] [employer] Mechanic: Severino Jacobson MD Potassium [Moles/Vol] 4.0 mmol/L Normal 3.7-5.3 [facility] Comment on above: Performed By: #### C FANNIE MIJARES, CP #### [address] [address] [employer] T[employer] Mechanic: Severino Jacobson MD Protein [Mass/Vol] 7.3 g/dL Normal 6.6-8.7 [facility] Comment on above: Performed By: #### C FANNIE MIJARES, CP #### [address] [address] [employer] T[employer] Mechanic: Severino Jacobson MD Sodium [Moles/Vol] 140 mmol/L Normal 136-145 [facility] Comment on above: Performed By: #### C FANNIE MIJARES, CP #### [address] [address] [employer] Mechanic: Severino Jacobson MD Urea nitrogen [Mass/Vol] 12 mg/dL Normal 6-20 [facility] Comment on above: Performed By: #### C FANNIE MIJARES, CP #### [address] [address] [employer] Turbine Mechanic: Severino Jacobson MD Lipid Prof, Fastingon 2023 Cholesterol [Mass/Vol] 164 mg/dL Normal 0-199 [facility] Comment on above: Result Comment: Cholesterol Guidelines: <200 Desirable 200-240 Borderline >240 Undesirable Performed By: #### C DP LIPRF, CP #### [address] [address] [employer] Turb[employer] Mechanic: Severino Jacobson MD Cholesterol in HDL [Mass/Vol] 52 mg/dL Normal >40 [facility] Comment on above: Result Comment: HDL Guidelines: <40 Undesirable 40-59 Borderline >59 Desirable Performed By: #### C DP, LIPRF, CP #### [address] [address] [employer] Turbine Mechanic: Severino Jacobson MD Cholesterol in LDL [Mass/Vol] 102 mg/dL High 0-100 [facility] Comment on above: Result Comment: LDL Guidelines: <100 Desirable 100-129 Near to/above Desirable 130-159 Borderline >159 Undesirable Direct (measured) LDL and calculated LDL are not interchangeable tests. Performed By: #### C DP, LIPRF, CP #### [address] [address] [employer] Turbine Mechanic: Severino Jacobson MD Cholesterol in VLDL [Mass/Vol] 10 mg/dL Normal [facility] Comment on above: Performed By: #### C DP LIPRF, CP #### [place] [address] [employer] T[employer] Mechanic: Severino Jacobson MD Cholesterol.total/Chol esterol in HDL [Mass ratio] 3.0 {ratio} Normal [facility] Comment on above: Performed By: #### C DP, LIPRF, CP #### [address] [address] [employer] T[employer] Mechanic: Severino Jacobson MD Triglyceride,Fasting 49 mg/dL Normal 0-149 [facility] Comment on above: Result Comment: Triglyceride Guidelines: <150 Desirable 150-199 Borderline 200-499 High >499 Very high Based on AHA Guidelines for fasting triglyceride, February 2012. Performed By: #### C DP, LIPRF, CP #### [facility] [address] [id number] Gas Turbine Mechanic: Severino Jacobson MD SARS/FLU A+B/RSV by NAAT/Mol [...] operators who are performing tests using either [employer] or [employer] systems and is limited to laboratories that [...] repeat. Fact Sheet for Healthcare Providers: https://www.fda.gov/ media/318244/downloa d Fact Sheet for Patients: https://www.fda.gov/ media/998176/downloa d Normal [facility] Comment on above: Performed By: #### C OVFLR #### [facility] ([id number]) [address] [facility], [place] [address] QuantiFERON TBon 04-14-2023 Quanti Americo minus NIL >10.00 Normal [facility] Comment on above: Performed By: #### A QF #### [facility] [address] [place] [address] [employer] Turbine Mechanic: Tai Lopez MD Quanti TB Gold Plus Negative Normal Negative [facility] Comment on above: Result Comment: (NOT [...] Mycobacterium tuberculosis Infection --- [place], 2010 (http://www.cdc.gov/mmwr/preview/mmwrhtml/rm1241t3.htm), for more information concerning test performance in low-prevalence populations and use in occupational screening. Performed By: #### A QF #### [facility] [address] [place] [address] [employer] Turbine Mechanic: Tai Lopez MD Quanti TB1 minus NIL 0.10 IU/mL Normal 0.00-0.34 [facility] Comment on above: Performed By: #### A QF #### [facility] [address] [place] [address] [employer] Turbine Mechanic: Tai Lopez MD Quanti TB2 minus NIL 0.10 IU/mL Normal 0.00-0.34 [facility] Comment on above: Performed By: #### A QF #### [facility] [address] [place] [address] [employer] Turbine Mechanic: Tai Lopez MD QuantiFERON NIL 0.03 IU/mL Normal [facility] Comment on above: Result Comment: (NOT E) Performed By: [facility] [address] [place] [address] [employer]proof Door Assembler: Royal Banda MD, PhD CLIA Number: [id number] Performed By: #### A QF #### [facility] [address] [place] [address] [employer] Turbine Mechanic: Tai Lopez MD CBC with Diffon 04-11-2023 Abs. Basophil 0.05 k/uL Normal 0.00-0.20 [facility] Comment on above: Performed By: #### L IPRF, CDP, PHEP, CP, HIVCMB #### [place] [id number] [employer] Turbine Mechanic: Severino Jacobson MD Abs.Imm.Granulocyte 0.03 k/uL Normal 0.00-0.30 [facility] Comment on above: Performed By: #### L IPRF, CDP, PHEP, CP, HIVCMB #### [facility] [employer] [address] [place], [place] [id number] [employer] T[employer] Mechanic: Severino Jacobson MD Abs.Neutrophil (Seg) 4.20 k/uL Normal 1.50-8.10 [facility] Comment on above: Performed By: #### L IPRF, CDP, PHEP, CP, HIVCMB #### [address] [address] [employer] Turb[employer] Mechanic: Severino Jacobson MD Basophils/100 WBC (Bld) 1 % Normal 0-2 [facility] Comment on above: Performed By: #### L IPRF, CDP, PHEP, CP, HIVCMB #### [place] [address] [employer] T[employer] Mechanic: Severino Jacobson MD Eosinophils (Bld) [#/Vol] 0.36 10*3/uL Normal 0.00-0.44 [facility] Comment on above: Performed By: #### L IPRF, CDP, PHEP, CP, HIVCMB #### [place] [address] [employer] T[employer] Mechanic: Severino Jacobson MD Eosinophils/100 WBC (Bld) 5 % High 1-4 [facility] Comment on above: Performed By: #### L IPRF, CDP, PHEP, CP, HIVCMB #### [place] [address] [employer] Mechanic: Severino Jacobson MD Erythrocyte distribution width (RBC) [Ratio] 11.6 % Low 11.8-14.4 [facility] Comment on above: Performed By: #### L IPRF, CDP, PHEP, CP, HIVCMB #### [place] [address] [employer] T[employer] Mechanic: Severino Jacobson MD Hematocrit (Bld) [Volume fraction] 34.3 % Low 36.3-47.1 [facility] Comment on above: Performed By: #### L IPRF, CDP, PHEP, CP, HIVCMB #### [facility] [employer] [address] [place] [address] [employer] Turbine Mechanic: Severino Jacobson MD Hemoglobin (Bld) [Mass/Vol] 10.9 g/dL Low 11.9-15.1 [facility] Comment on above: Performed By: #### L IPRF, CDP, PHEP, CP, HIVCMB #### [address] [address] [employer] Turb[employer] Mechanic: Severino Jacobson MD Immature granulocytes/100 WBC (Bld) 0 % Normal 0 [facility] Comment on above: Performed By: #### L IPRF, CDP, PHEP, CP, HIVCMB #### [place] [address] [employer] T[employer] Mechanic: Severino Jacobson MD Lymphocytes (Bld) [#/Vol] 2.55 10*3/uL Normal 1.10-3.70 [facility] Comment on above: Performed By: #### L IPRF, CDP, PHEP, CP, HIVCMB #### [place] [address] [employer] T[employer] Mechanic: Severino Jacobson MD Lymphocytes/100 WBC (Bld) 33 % Normal 24-43 [facility] Comment on above: Performed By: #### L IPRF, CDP, PHEP, CP, HIVCMB #### [address] [address] [employer] Turbine Mechanic: Severino Jacobson MD MCH (RBC) [Entitic mass] 30.1 pg Normal 25.2-33.5 [facility] Comment on above: Performed By: #### L IPRF, CDP, PHEP, CP, HIVCMB #### [place] [address] [employer] T[employer] Mechanic: Severino Jacobson MD MCHC (RBC) [Mass/Vol] 31.8 g/dL Normal 28.4-34.8 [facility] Comment on above: Performed By: #### L IPRF, CDP, PHEP, CP, HIVCMB #### [address] [address] Gas Turbine Mechanic: Severino Jacobson MD MCV (RBC) [Entitic vol] 94.8 fL Normal 82.6-102.9 [facility] Comment on above: Performed By: #### L IPRF, CDP, PHEP, CP, HIVCMB #### [address] [address] [employer] T[employer] Mechanic: Severino Jacobson MD Monocytes (Bld) [#/Vol] 0.55 10*3/uL Normal 0.10-1.20 [facility] Comment on above: Performed By: #### L IPRF, CDP, PHEP, CP, HIVCMB #### [address] [address] [employer] Turb[employer] Mechanic: Severino Jacobson MD Monocytes/100 WBC (Bld) 7 % Normal 3-12 [facility] Comment on above: Performed By: #### L IPRF, CDP, PHEP, CP, HIVCMB #### [address] [address] [employer] Turbine Mechanic: Severino Jacobson MD Neutrophil (Seg) 54 % Normal 36-65 [facility] Comment on above: Performed By: #### L IPRF, CDP, PHEP, CP, HIVCMB #### [address] [address] [employer] Turbine Mechanic: Severino Jacobson MD NRBC Automated 0.0 per 100 WBC Normal 0.0 [facility] Comment on above: Performed By: #### L IPRF, CDP, PHEP, CP, HIVCMB #### [address] [address] [employer] Turbine Mechanic: Severino Jacobson MD Platelet mean volume (Bld) [Entitic vol] 11.0 fL Normal 8.1-13.5 [facility] Comment on above: Performed By: #### L IPRF, CDP, PHEP, CP, HIVCMB #### [facility] [place] [facility] [address] [place] [id number] [employer]: Severino Jacobson MD Platelets (d) [#/Vol] 382 10*3/uL Normal 138-453 [facility] Comment on above: Performed By: #### L IPRF, CDP, PHEP, CP, HIVCMB #### [facility] [place] [facility] [address] [place] [address] 68809 [employer]: Severino Jacobson MD RBC (Bld) [#/Vol] 3.62 10*6/uL Low 3.95-5.11 [facility] Comment on above: Performed By: #### L IPRF, CDP, PHEP, CP, HIVCMB #### [facility] [place] [employer] [address] [place] [address] 44878 [employer]: Severino Jacobson MD WBC (Bld) [#/Vol] 7.7 10*3/uL Normal 3.5-11.3 [facility] Comment on above: Performed By: #### L IPRF, CDP, PHEP, CP, HIVCMB #### [facility] [place] [employer] [address] [place] [address] 02898 [employer]: Severino Jacobson MD Comp Metabolic Profon 2022 Albumin [Mass/Vol] 4.4 g/dL Normal 3.5-5.2 [facility] Comment on above: Performed By: #### L IPRF, CDP, PHEP, CP, HIVCMB #### [facility] [place] [facility] [address] [place] [address] 51608 [employer]: Severino Jacobson MD Albumin/Glob Ratio 2.0 Normal 1.0-2.5 [facility] Comment on above: Performed By: #### L IPRF, CDP, PHEP, CP, HIVCMB #### [facility] [place] [facility] [address] [place] [address] [phone] [employer]: Severino Jacobson MD Alkaline Phos 39 U/L Normal 35-104 [facility] Comment on above: Performed By: #### L IPRF, CDP, PHEP, CP, HIVCMB #### [address] [id number] [employer]: Severino Jacobson MD ALT [Catalytic activity/Vol] 10 U/L Normal 10-35 [facility] Comment on above: Performed By: #### L IPRF, CDP, PHEP, CP, HIVCMB #### [address] [id number] [employer]ic: Severino Jacobson MD Anion gap [Moles/Vol] 9 mmol/L Normal 9-16 [facility] Comment on above: Performed By: #### L IPRF, CDP, PHEP, CP, HIVCMB #### [address] [address] [employer]: Severino Jacobson MD AST [Catalytic activity/Vol] 22 U/L Normal 10-35 [facility] Comment on above: Performed By: #### L IPRF, CDP, PHEP, CP, HIVCMB #### [address] [address] [employer]: Severino Jacobson MD Bilirubin [Mass/Vol] 0.3 mg/dL Normal 0.00-1.20 [facility] Comment on above: Performed By: #### L IPRF, CDP, PHEP, CP, HIVCMB #### [address] [address] [employer]ic: Severino Jacobson MD Calcium [Mass/Vol] 9.3 mg/dL Normal 8.6-10.4 [facility] Comment on above: Performed By: #### L IPRF, CDP, PHEP, CP, HIVCMB #### [facility] [place] [facility] [address] [place] [address] 63641 [employer]: Severino Jacobson MD Chloride [Moles/Vol] 104 mmol/L Normal 98-107 [facility] Comment on above: Performed By: #### L IPRF, CDP, PHEP, CP, HIVCMB #### [facility] [place] [address] [employer]: Severino Jacobson MD CO2 [Moles/Vol] 27 mmol/L Normal 20-31 [facility] Comment on above: Performed By: #### L IPRF, CDP, PHEP, CP, HIVCMB #### [facility] [place] [facility] [address] [place] [address] 32664 [employer]ic: Severino Jacobson MD Creatinine [Mass/Vol] 0.7 mg/dL Normal 0.50-0.90 [facility] Comment on above: Performed By: #### L IPRF, CDP, PHEP, CP, HIVCMB #### [facility] [place] [facility] [address] [place] [address] 29507 [employer]: Severino Jacobson MD GFR/1.73 sq M.predicted among non-blacks MDRD (S/P/Bld) [Vol rate/Area] mL/min/{1.73_m2} Normal >60 [facility] Comment on above: Result Comment: These [facility] [place] [facility] [address] [place] [address] 36746 [employer]ic: Severino Jacobson MD Glucose [Mass/Vol] 82 mg/dL Normal 74-99 [facility] Comment on above: Performed By: #### L IPRF, CDP, PHEP, CP, HIVCMB #### [facility] [place] [facility] [address] [place] [address] 97576 [employer]: Severino Jacobson MD Potassium [Moles/Vol] 3.8 mmol/L Normal 3.7-5.3 [facility] Comment on above: Performed By: #### L IPRF, CDP, PHEP, CP, HIVCMB #### [facility] [place] [facility] [address] [place] [address] 33234 [employer]: Severino Jacobson MD Protein [Mass/Vol] 7.2 g/dL Normal 6.6-8.7 [facility] Comment on above: Performed By: #### L IPRF, CDP, PHEP, CP, HIVCMB #### [address] [address] [employer]: Severino Jacobson MD Sodium [Moles/Vol] 140 mmol/L Normal 136-145 [facility] Comment on above: Performed By: #### L IPRF, CDP, PHEP, CP, HIVCMB #### [facility] [place] [facility] [address] [place] [address] 78930 [employer]: Severino Jacobson MD Urea nitrogen [Mass/Vol] 14 mg/dL Normal 6-20 [facility] Comment on above: Performed By: #### L IPRF, CDP, PHEP, CP, HIVCMB #### [facility] [place] [facility] [address] [place] [address] 49466 [employer]: Severino Jacobson MD HIV Ag/Abon 04-11-2023 HIV Ag/Ab Non-Reactive Normal NR [facility] Comment on above: Result Comment: No l aboratory evidence of HIV infection. If acute HIV infection is suspected, consider testing for HIV-1 RNA. Performed By: #### C DP, LIPRF, CP #### [facility] [place] [facility] [address] [place] [address] 68485 [employer]ic: Severino Jacobson MD Hepatitis Acute [facility] 04-11 Hep A Ab,IgM Non-Reactive Normal [facility] Comment on above: Performed By: #### L IPRF, CDP, PHEP, CP, HIVCMB #### [facility] [address] [place] [address] 79964 [employer]ic: Severino Jacobson MD Hep B Core Ab,IgM Non-Reactive Normal [facility] Comment on above: Performed By: #### L IPRF, CDP, PHEP, CP, HIVCMB #### [facility] [place] [facility] [address] [place] [address] 20798 [employer]ic: Severino Jacobson MD Hep B Surf Ag Non-Reactive Normal [facility] Comment on above: Performed By: #### L IPRF, CDP, PHEP, CP, HIVCMB #### [facility] [place] [facility] [address] [place] [address] 07281 [employer]ic: Severino Jacobson MD Hep C Ab Non-Reactive Normal [facility] Comment on above: Result Comment: [...] [facility] [place] [facility] [address] [place] [address] 70265 [employer]ic: Severino Jacobson MD Lipid Prof, Fastingon 2022 Cholesterol [Mass/Vol] 155 mg/dL Normal 0-199 [facility] Comment on above: Result Comment: Cholesterol Guidelines: <200 Desirable 200-240 Borderline >240 Undesirable Performed By: #### C DP, LIPRF, CP #### [facility] [place] [facility] [address] [place] [address] 64953 [employer]ic: Severino Jacobson MD Cholesterol in HDL [Mass/Vol] 49 mg/dL Normal >40 [facility] Comment on above: Result Comment: HDL Guidelines: <40 Undesirable 40-59 Borderline >59 Desirable Performed By: #### C DP, LIPRF, CP #### [address] [address] [employer]ic: Severino Jacobson MD Cholesterol in LDL [Mass/Vol] 98 mg/dL Normal 0-100 [facility] Comment on above: Result Comment: LDL Guidelines: <100 Desirable 100-129 Near to/above Desirable 130-159 Borderline >159 Undesirable Direct (measured) LDL and calculated LDL are not interchangeable tests. Performed By: #### C DP, LIPRF, CP #### [facility] [address] [place] [address] 96480 [employer]ic: Severino Jacobson MD Cholesterol in VLDL [Mass/Vol] 8 mg/dL Normal [facility] Comment on above: Performed By: #### C DP LIPRF, CP #### [facility] [address] [place] [address] 12672 [employer]ic: Severino Jacobson MD Cholesterol.total/Chol esterol in HDL [Mass ratio] 3.0 {ratio} Normal [facility] Comment on above: Performed By: #### C DP LIPRF, CP #### [facility] [address] [place] [address] 01991 [employer]ic: Severino Jacobson MD Triglyceride,Fasting 38 mg/dL Normal 0-149 [facility] Comment on above: Result Comment: Triglyceride Guidelines: <150 Desirable 150-199 Borderline 200-499 High >499 Very high Based on AHA Guidelines for fasting triglyceride, February 2012. Performed By: #### C DP, LIPRF, CP #### [facility] [address] [place] [address] 25342 [employer]: Severino Jacobson MD SURGICALon 03-10-2023 SURGICAL [facility] [id number] Assoc. Page 1 of 1 [address] [place] [address] PROC: 03/10/[address] [facility] [place] [facility] RECV: 03/13/2023 [address] [facility] RPTD: 03/21/2023 [place] [address] LOC: [facility] ACCT: SEX: F [id number] AGE: 32 Y : 1990 PATHOLOGY REPORT [...] on sections examined. Clinical correlation is recommended. [id number] AILEEN DE LA PAZ M.D., F.C.A.P [facility]/ [facility] Printed on: 03/21/2023 [address] [place], [place] [address] Original print date: 03/21/2023 [facility] US PREG ANATOMY SINGLEon US PREG [...] by: VINICIUS GARCIA Date: 2021-08-06 21:37 Normal [facility] CULTURE URINEon 04-25-2021 CULTURE URINE Isolate [...] F Trimethoprim/Sulfame thoxazole <=20 S F Normal [facility] Comment on above: Performed By: #### U RCX ####[facility] [address] [address]Dr[address] Purvi Smith HEP B SURFACE ANTIGEN SCREEN on 04-24-2021 HBsAg Screen Negative Normal Negative [facility] Comment on above: Performed By: #### H BSANS #### [facility] [address] [address] [address] Purvi Smith HIV 1 AND 2 WITH REFLEXon HIV Screen 4th Generation wRfx Non-Reactive Normal Non Reactive [facility] Comment on above: Performed By: #### H IV12 ####[facility] [address] [place], [place] [address]Dr. Purvi Smith RPR QUANTon 04-24-2021 Rapid Plasma Reagin, Quant Non-Reactive Normal NonRea<1:1 [facility] Comment on above: Performed By: #### R PRQ #### [facility] [address] [place] [address] Dr. Purvi Smith RUBELLA AB IGGon 04-24-2021 Rubella Antibodies, IgG 1.35 index Normal Immune >0.99 [facility] Comment on above: Result Comment: Non- immune <0.90 Equivocal 0.90 - 0.99 Immune >0.99 Performed By: #### R UBIGG #### [facility] [address] [place] [address] Dr. Purvi Smith CBC AUTO DIFFon 04-23-2021 BASO # 0.0 103/ul Normal 0.0-0.1 [facility] Comment on above: Performed By: #### C BC #### [facility] [address] [place] [address] Dr. Purvi Smith Basophils/100 WBC (Bld) 0.3 % Normal 0.2-2.0 [facility] Comment on above: Performed By: #### C BC #### [facility] [address] [place] [address] Dr. Purvi Smith EO # 0.2 103/ul Normal 0.0-0.7 [facility] Comment on above: Performed By: #### C BC #### [facility] [address] [place] [address] Dr. Purvi Smith Eosinophils/100 WBC (Bld) 2.1 % Normal 0.9-7.0 [facility] Comment on above: Performed By: #### C BC #### [facility] [address] [place] [address] Dr. Purvi Smith Erythrocyte distribution width (RBC) [Ratio] 12.1 % Normal 11.0-15.0 [facility] Comment on above: Performed By: #### C BC #### [facility] [address] [place] [address] Dr. Purvi Smith Hematocrit (Bld) [Volume fraction] 32.3 % Critically low 36.0-48.0 [facility] Comment on above: Performed By: #### C BC #### [facility] [address] [place] [address] Dr. Purvi Smith Hemoglobin (Bld) [Mass/Vol] 10.6 g/dL Critically low 12.0-16.0 [facility] Comment on above: Performed By: #### C BC #### [facility] [address] [place] [address] Dr. Purvi Smith IG # 0.04 10e3/ul Critically high 0.00-0.03 [facility] Comment on above: Performed By: #### C BC #### [facility] [address] [place] [address] Dr. Purvi Smith IG % 0.3 % Normal 0.0-0.5 [facility] Comment on above: Performed By: #### C BC #### [facility] [address] [place] [address] Dr. Purvi Smith LYMPH # 2.1 103/ul Normal 1.2-3.8 [facility] Comment on above: Performed By: #### C BC #### [facility] [address] [address] [address] Purvi Smith Lymphocytes/100 WBC (Bld) 17.9 % Critically low 20.5-60.0 [facility] Comment on above: Performed By: #### C BC #### [facility] [address] [address] [address] Purvi Smith MANUAL DIFF REQ NO Normal [facility] Comment on above: Performed By: #### C BC #### [facility] [address] [place] [address] Dr. Purvi Smith MCH (RBC) [Entitic mass] 30.2 pg Normal 26.7-34.0 [facility] Comment on above: Performed By: #### C BC #### [facility] [address] [place] [address] Dr. Purvi Smith MCHC (RBC) [Mass/Vol] 32.8 g/dL Normal 29.9-35.2 [facility] Comment on above: Performed By: #### C BC #### [facility] [address] [place] [address] Dr. Purvi Smith MCV (RBC) [Entitic vol] 92.0 fL Normal 81.0-99.0 [facility] Comment on above: Performed By: #### C BC #### [facility] [address] [place] [address] Dr. Purvi Smith MONO # 0.8 103/ul Normal 0.3-0.8 [facility] Comment on above: Performed By: #### C BC #### [facility] [address] [place] [address] Dr. Purvi Smiht Monocytes/100 WBC (Bld) 6.6 % Normal 1.7-12.0 [facility] Comment on above: Performed By: #### C BC #### [facility] [address] [place] [address] Dr. Purvi Smith NEUT # 8.5 103/ul Critically high 1.4-6.5 [facility] Comment on above: Performed By: #### C BC #### [facility] [address] [address] [address] Purvi Smith Neutrophils/100 WBC (Bld) 72.8 % Normal 43.0-75.0 [facility] Comment on above: Performed By: #### C BC #### [facility] [address] [address] [address] Purvi Smith Platelet mean volume (Bld) [Entitic vol] 10.0 fL Normal 9.5-13.5 [facility] Comment on above: Performed By: #### C BC #### [facility] [address] [address] [address] Purvi Smith PLT 361 103/ul Normal 150-450 [facility] Comment on above: Performed By: #### C BC #### [facility] [address] [address] [address] Purvi Smith RBC 3.51 106/ul Critically low 4.20-5.40 [facility] Comment on above: Performed By: #### C BC #### [facility] [address] [address] [address] Purvi Smith WBC 11.7 103/ul Critically high 4.0-11.0 [facility] [place] [facility] Comment on above: Performed By: #### C BC #### [facility] [address] [address] [address] Purvi Smith GLYCOHEMOGLOBIN A1Con 2020 ADA RECOMMENDATION ADA THERAPEUTIC TARGET 6.0 - 7.0 ACTION SUGGESTED > 7.0 Normal [facility] Comment on above: Performed By: #### A 1C #### [facility] [address] [address] [address] Purvi Smith Glucose [Mass/Vol] 88 mg/dL Normal [facility] Comment on above: Performed By: #### A 1C #### [facility] [address] [address] [address] Purvi Smith HbA1c (Bld) [Mass fraction] 4.7 % Normal <=6.0 [facility] Comment on above: Performed By: #### A 1C #### [facility] [address] [address] [address] Purvi FELDMAN BOX TEST PT SEND OUTo n 04-23-2021 SENT TO REF LAB 04/23/2021 Normal [facility] Comment on above: Performed By: #### N BOX #### [facility] [address] [address] [address] Purvi Smith TYPE AND SCREENon 04-23-2021 TYPE AND SCREEN Negative Normal [facility] Comment on above: Performed By: #### T NS #### [facility] [address] [address] [address] Purvi Smith US PREG TVon 03-30-2021 [...] VINICIUS GARCIA Date: 2021-03-30 10:06 Normal [facility] CBC AUTO DIFFon 03-16-2021 BASO # 0.0 103/ul Normal 0.0-0.1 [facility] Comment on above: Performed By: #### C BC #### [facility] [address] [place] [address] Dr. Purvi Smith Basophils/100 WBC (Bld) 0.3 % Normal 0.2-2.0 [facility] Comment on above: Performed By: #### C BC #### [facility] [address] [place] [address] Dr. Purvi Smith EO # 0.2 103/ul Normal 0.0-0.7 [facility] Comment on above: Performed By: #### C BC #### [facility] [address] [place] [address] Dr. Purvi Smith Eosinophils/100 WBC (Bld) 1.9 % Normal 0.9-7.0 [facility] Comment on above: Performed By: #### C BC #### [facility] [address] [place] [address] Dr. Purvi Smith Erythrocyte distribution width (RBC) [Ratio] 11.9 % Normal 11.0-15.0 [facility] Comment on above: Performed By: #### C BC #### [facility] [address] [place] [address] Dr. Purvi Smith Hematocrit (Bld) [Volume fraction] 31.5 % Critically low 36.0-48.0 [facility] Comment on above: Performed By: #### C BC #### [facility] [address] [place] [address] Dr. Purvi Smith Hemoglobin (Bld) [Mass/Vol] 10.3 g/dL Critically low 12.0-16.0 [facility] Comment on above: Performed By: #### C BC #### [facility] [address] [place] [address] Dr. Purvi Smith IG # 0.04 10e3/ul Critically high 0.00-0.03 [facility] Comment on above: Performed By: #### C BC #### [facility] [address] [place] [address] Dr. Purvi Smith IG % 0.4 % Normal 0.0-0.5 [facility] Comment on above: Performed By: #### C BC #### [facility] [address] [place] [address] Dr. Purvi Smith LYMPH # 2.3 103/ul Normal 1.2-3.8 [facility] Comment on above: Performed By: #### C BC #### [facility] [address] [place] [address] Dr. Purvi Smith Lymphocytes/100 WBC (Bld) 21.5 % Normal 20.5-60.0 [facility] Comment on above: Performed By: #### C BC #### [facility] [address] [place] [address] Dr. Purvi Smith MANUAL DIFF REQ NO Normal [facility] Comment on above: Performed By: #### C BC #### [facility] [address] [place] [address] Dr. Purvi Smith MCH (RBC) [Entitic mass] 30.2 pg Normal 26.7-34.0 [facility] Comment on above: Performed By: #### C BC #### [facility] [address] [place] [address] Dr. Purvi Smith MCHC (RBC) [Mass/Vol] 32.7 g/dL Normal 29.9-35.2 [facility] Comment on above: Performed By: #### C BC #### [facility] [address] [place] [address] Dr. Purvi Smith MCV (RBC) [Entitic vol] 92.4 fL Normal 81.0-99.0 [facility] Comment on above: Performed By: #### C BC #### [facility] [address] [place] [address] Dr. Purvi Smith MONO # 0.9 103/ul Critically high 0.3-0.8 [facility] Comment on above: Performed By: #### C BC #### [facility] [address] [place] [address] Dr. Purvi Smith Monocytes/100 WBC (Bld) 8.4 % Normal 1.7-12.0 [facility] Comment on above: Performed By: #### C BC #### [facility] [address] [place] [address] Dr. Purvi Smith NEUT # 7.3 103/ul Critically high 1.4-6.5 [facility] Comment on above: Performed By: #### C BC #### [facility] [address] [place] [address] Dr. Purvi Smith Neutrophils/100 WBC (Bld) 67.5 % Normal 43.0-75.0 [facility] Comment on above: Performed By: #### C BC #### [facility] [address] [place] [address] Dr. Purvi Smith Platelet mean volume (Bld) [Entitic vol] 10.4 fL Normal 9.5-13.5 [facility] Comment on above: Performed By: #### C BC #### [facility] [address] [place] [address] Dr. Purvi Smith PLT 362 103/ul Normal 150-450 [facility] Comment on above: Performed By: #### C BC #### [facility] [address] [address] [address] Purvi mSith RBC 3.41 106/ul Critically low 4.20-5.40 [facility] Comment on above: Performed By: #### C BC #### [facility] [address] [place] [address] Dr. Purvi Smith WBC 10.8 103/ul Normal 4.0-11.0 [facility] Comment on above: Performed By: #### C BC #### [facility] [address] [place] [address] Dr. Purvi Smith PROF CHEM 8 (BAS METB)on Anion gap [Moles/Vol] 10.6 mmol/L Normal [facility] Comment on above: Performed By: #### B MP #### [facility] [address] [place] [address] Dr. Purvi Smith Calcium [Mass/Vol] 9.2 mg/dL Normal 8.4-10.2 [facility] Comment on above: Performed By: #### B MP #### [facility] [address] [place] [address] Dr. Purvi Smith Chloride [Moles/Vol] 103 mmol/L Normal 98-107 [facility] Comment on above: Performed By: #### B MP #### [facility] [address] [place] [address] Dr. Purvi Smith CO2 [Moles/Vol] 25.5 mmol/L Normal 22.0-30.0 [facility] Comment on above: Performed By: #### B MP #### [facility] [address] [place] [address] Dr. Purvi Smith Creatinine [Mass/Vol] 0.61 mg/dL Normal 0.52-1.04 [facility] Comment on above: Performed By: #### B MP #### [facility] [address] [address] [address] Purvi Smith EGFR-AF AFGHAN >60 Normal >=60 [facility] Comment on above: Performed By: #### B MP #### [facility] [address] [address] [address] Purvi Smith EGFR-NON AF AFGHAN >60 Normal >=60 [facility] Comment on above: Performed By: #### B MP #### [facility] [address] [address] [address] Purvi Smith Glucose [Mass/Vol] 80 mg/dL Normal 74-106 [facility] Comment on above: Performed By: #### B MP #### [facility] [address] [place] [address] Dr. Purvi Smith Potassium [Moles/Vol] 3.1 mmol/L Critically low 3.4-5.0 [facility] Comment on above: Performed By: #### B MP #### [facility] [address] [place] [address] Dr. Purvi Smith Sodium [Moles/Vol] 136 mmol/L Critically low 137-145 [facility] Comment on above: Performed By: #### B MP #### [facility] [address] [place] [address] Dr. Purvi Smith Urea nitrogen [Mass/Vol] 11.0 mg/dL Normal 7.0-17.0 [facility] Comment on above: Performed By: #### B MP #### [facility] [address] [place] [address] Dr. Purvi Smith Urea nitrogen/Creatinine [Mass ratio] 18.0 mg/mg Normal [facility] Comment on above: Performed By: #### B MP #### [facility] [address] [place] [address] Dr. Purvi Smith Vital Signs Date Time Vital Sign Value Performing Clinician Facility 07-15-2024 11:28-0500 Body mass index (BMI) [Ratio] 28.86 kg/m2 Shakir Steph DO Work Phone: [facility] 07-15-2024 11:28-0500 Body weight 76.26 kg Shakir Steph DO Work Phone: [facility] 07-15-2024 11:28-0500 Diastolic blood pressure 68 mm[Hg] Shakir Steph DO Work Phone: [facility] 07-15-2024 11:28-0500 Systolic blood pressure 120 mm[Hg] Shakir Steph DO Work Phone: [facility] 07-08-2024 15:22-0500 Body mass index (BMI) [Ratio] 28.15 kg/m2 Shakir Steph DO Work Phone: [facility] 07-08-2024 15:22-0500 Body weight 74.39 kg Shakir Steph DO Work Phone: [facility] 07-08-2024 15:22-0500 Diastolic blood pressure 80 mm[Hg] Shakir Steph DO Work Phone: [facility] 07-08-2024 15:22-0500 Systolic blood pressure 116 mm[Hg] Shakir Steph DO Work Phone: [facility] 06-23-2024 10:56-0500 Body mass index (BMI) [Ratio] 28.32 kg/m2 Sophia KYLE Work Phone: [facility] 06-23-2024 10:56-0500 Body weight 74.84 kg Sophia KYLE Work Phone: [facility] 06-23-2024 10:56-0500 Diastolic blood pressure 80 mm[Hg] Sophia KYLE Work Phone: [facility] 06-23-2024 10:56-0500 Systolic blood pressure 128 mm[Hg] Sophia KYLE Work Phone: [facility] 06-09-2024 11:35-0500 Body mass index (BMI) [Ratio] 28.69 kg/m2 Shakir Steph DO Work Phone: [facility] 06-09-2024 11:35-0500 Body weight 75.81 kg Shakir Steph DO Work Phone: [facility] 06-09-2024 11:35-0500 Diastolic blood pressure 74 mm[Hg] Shakir Steph DO Work Phone: [facility] 06-09-2024 11:35-0500 Systolic blood pressure 114 mm[Hg] Shakir Steph DO Work Phone: [facility] 05-24-2024 13:21-0500 Body mass index (BMI) [Ratio] 28.63 kg/m2 Sophia KYLE Work Phone: [facility] 05-24-2024 13:21-0500 Body weight 75.66 kg Sophia KYLE Work Phone: [facility] 05-24-2024 13:21-0500 Diastolic blood pressure 80 mm[Hg] Sophia KYLE Work Phone: [facility] 05-24-2024 13:21-0500 Systolic blood pressure 116 mm[Hg] Sophia KYLE Work Phone: [facility] 05-10-2024 13:14-0500 Body mass index (BMI) [Ratio] 28.32 kg/m2 Shakir Steph DO Work Phone: [facility] 05-10-2024 13:14-0500 Body weight 74.84 kg Shakir Steph DO Work Phone: [facility] 05-10-2024 13:14-0500 Diastolic blood pressure 66 mm[Hg] Shakir Steph DO Work Phone: [facility] 05-10-2024 13:14-0500 Systolic blood pressure 106 mm[Hg] Shakir Steph DO Work Phone: [facility] 05-05-2024 10:30-0500 Body height 162.6 cm [...] [Ratio] 28.63 kg/m2 Sophia KYLE Work Phone: [facility] 04-12-2024 13:58-0500 Body weight 75.66 kg Sophia Galo PA Work Phone: [facility] 04-12-2024 13:58-0500 Diastolic blood pressure 70 mm[Hg] Sophia Galo PA Work Phone: [facility] 04-12-2024 13:58-0500 Systolic blood pressure 120 mm[Hg] Sophia Galo PA Work Phone: [facility] 03-15-2024 10:53-0400 Body mass index (BMI) [Ratio] 27.77 kg/m2 Shakir Steph DO Work Phone: [facility] 03-15-2024 10:53-0400 Body weight 73.39 kg Shakir Steph DO Work Phone: [facility] 03-15-2024 10:53-0400 Diastolic blood pressure 72 mm[Hg] Shakir Steph DO Work Phone: [facility] 03-15-2024 10:53-0400 Systolic blood pressure 110 mm[Hg] Shakir Steph DO Work Phone: [facility] 02-06-2024 15:11-0400 Diastolic blood pressure 63 mm[Hg] Stv 11 [facility] 02-06-2024 15:11-0400 Heart rate 89 /min St[facility] 11 [facility] 02-06-2024 15:11-0400 Systolic blood pressure 97 mm[Hg] Stv 11 [facility] 02-06-2024 14:22-0400 Respiratory rate 16 /min Stv 11 [facility] 01-29-2024 11:52-0400 Body mass index (BMI) [Ratio] 27.64 kg/m2 Shakir Steph DO Work Phone: [facility] 01-29-2024 11:52-0400 Body weight 73.03 kg Shakir Steph DO Work Phone: [facility] 01-29-2024 11:52-0400 Diastolic blood pressure 74 mm[Hg] Shakir Steph DO Work Phone: [facility] 01-29-2024 11:52-0400 Systolic blood pressure 112 mm[Hg] Shakir Steph DO Work Phone: [facility] Healthcare Encounters Encounter Date Encounter Type Care Provider Facility Start: 07-16-2024 End: 07-16-2024 Clinisync Result Encounter Sophia KYLE Work Phone: [facility] External Department Unsolicited Start: 07-16-2024 End: 07-16-2024 Clinisync Result Encounter Sophia KYLE Work Phone: [facility] External Department Unsolicited Start: 07-15-2024 End: 07-15-2024 Bamboo flowsheet Shakir Steph DO Work Phone: [facility] Start: 07-15-2024 End: 07-15-2024 Bamboo flowsheet Shakir Steph DO Work Phone: [facility] Start: 07-15-2024 End: 07-15-2024 flow [...] 06-23-2024 Bamboo flowsheet Sophia KYLE Work Phone: [facility] Start: 06-23-2024 End: 06-23-2024 Clinisync Result Encounter Shakir Steph DO Work Phone: [facility] External Department Unsolicited Start: 06-23-2024 End: 06-23-2024 Office outpatient visit 15 minutes Sophia KYLE Work Phone: [facility] Comment on above: Third trimester preg yenny; 33 weeks gestation of ; Urinary tract infection with hematuria, site unspecified Start: 06-23-2024 End: 06-23-2024 ambulatory SOPHIA GALO Not Available Start: 06-22-2024 End: 06-22-2024 ambulatory [facility] Start: 06-09-2024 End: 06-09-2024 Bamboo flowsheet Shakir Steph DO Work Phone: [facility] Start: 06-09-2024 End: 06-09-2024 Bamboo flowsheet Shakir Steph DO Work Phone: [facility] Start: 06-09-2024 End: 06-09-2024 ambulatory SHAKIR STEPH Not Available Start: 06-09-2024 End: 06-09-2024 Office outpatient visit 15 minutes Shakir Steph DO Work Phone: [facility] Comment on above: 31 weeks gestation o f ; Second trimester ; Right club foot; Premature uterine contractions, antepartum Start: 06-03-2024 End: 06-03-[facility]: 05-24-2024 End: 05-24-2024 Bamboo flowsheet Sophia KYLE Work Phone: [facility] Start: 05-24-2024 End: 05-24-2024 Bamboo flowsheet Sophia KYLE Work Phone: [facility] Start: 05-24-2024 End: 05-24-2024 Office outpatient visit 15 minutes Sophia KYLE Work Phone: [facility] Comment on above: 29 weeks gestation o f ; Third trimester ; SGA (small for gestational age) Start: 05-24-2024 End: 05-24-2024 ambulatory SOPHIA GALO Not Available Start: 05-13-2024 End: 05-13-2024 ambulatory [facility] Start: 05-10-2024 End: 05-10-2024 Bamboo flowsheet Shakir Steph DO Work Phone: [facility] Start: 05-10-2024 End: 05-11-2024 Bamboo flowsheet Shakir Steph DO Work Phone: [facility] Start: 05-10-2024 End: 05-11-2024 External Result Encounter Shakir Steph DO Work Phone: [facility] External Department Unsolicited Start: 05-10-2024 End: 05-10-2024 [...] Díaz MD Work Phone: [facility] Comment on above: Club foot of fetus a ffecting antepartum care of mother, other fetus (Primary Dx); Placenta previa in second trimester; Suspected problem with placenta not found; History of delivery, currently ; History of drug overdose; History of placental abruption; Anxiety and depression; 26 weeks gestation of Start: 05-05-2024 End: 05-05-2024 ambulatory SHAKIR R STEPH [facility] Comment on above: Club foot of fetus a ffecting antepartum care of mother, other fetus (Primary Dx); Placenta previa in second trimester; Suspected problem with placenta not found; History of delivery, currently ; History of drug overdose Start: 04-12-2024 End: 04-12-2024 Bamboo flowsheet Sophia KYLE Work Phone: [facility] Start: 04-12-2024 End: 04-12-2024 Bamboo flowsheet Sophia KYLE Work Phone: [facility] Start: 04-12-2024 End: 04-12-2024 Office outpatient visit 15 minutes Sophia KYLE Work Phone: [facility] Comment on above: Bacterial vaginosis (Primary Dx); 23 weeks gestation of ; Second trimester ; Diabetes mellitus screening Start: 04-12-2024 End: 04-12-2024 ambulatory SOPHIA GALO Not Available Start: 04-09-2024 End: 04-09-2024 ambulatory [facility] Start: 04-06-2024 End: 04-06-2024 Clinisync Result Encounter Shakir Steph DO Work Phone: [facility] External Department Unsolicited Start: 04-06-2024 End: 04-06-2024 Clinisync Result Encounter Shakir Steph DO Work Phone: [facility] External Department Unsolicited Start: 03-15-2024 End: 03-15-2024 Bamboo flowsheet Shakir Steph DO Work Phone: [facility] Start: 03-15-2024 End: 03-15-2024 Bamboo flowsheet Shakir Steph DO Work Phone: [facility] Start: 03-15-2024 End: 03-15-2024 Office outpatient visit 15 minutes Shakir Steph DO Work Phone: [facility] Comment on above: Second trimester pre gnancy; 17 weeks gestation of ; UTI symptoms Start: 03-15-2024 End: 03-15-2024 ambulatory SHAKIR STEPH Not Available Start: 02-26-2024 End: 02-26-2024 Emergency department patient visit [facility] Start: 02-06-2024 End: 02-06-2024 ambulatory BOBBI Keira [place] Start: 02-06-2024 End: 02-06-2024 Subsequent hospital visit by physician Clarita Burt Med Onc Chair 11 [facility] Comment on above: Iron deficiency anem ia, unspecified iron deficiency anemia type (Primary Dx) Start: 01-30-2024 End: 01-30-2024 ambulatory JOSSUE Crockett [place] Start: 01-29-2024 End: 01-29-2024 Bamboo flowsheet Shakir [...] 12-20-2023 Emergency department patient visit VINICIUS Kern [facility] Start: 12-05-2023 End: 12-05-2023 ambulatory BENSON DIAL [facility] Start: 11-24-2023 End: 11-24-2023 Emergency department patient visit VINICIUS Fernandes [facility] Start: 11-21-2023 End: 11-21-2023 Telephone encounter Amber [facility] Comment on above: Appointment Due Start: 11-06-2023 End: 11-06-2023 ambulatory BERNIE [facility] Start: 09-08-2023 End: 09-08-2023 Telephone encounter Amber [facility] Comment on above: appointment due Start: 09-02-2023 End: 09-02-[address] 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 Shakir Naqvio DO Work Phone: [...] Adult depression scr eening assessment Amber Smith [facility] Start: 08-21-2021 Microscopic observat ion [Identifier] in Cervix by Cyto stain Stv 3 Plan of Treatment Date Care Activity Detail Author Start: 05-05-2025 Adult BMI Screening Adult BMI Screen ing [facility] Start: 05-05-2025 Tobacco Screening Tobacco Screening [facility] Start: 05-05-2025 End: 05-05-2025 US MFM with or without consult US MFM with or without consult Imaging Routine 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, other fetus Placenta previa in second trimester Suspected problem with placenta not found History of delivery, currently History of drug overdose Expected: 05/05/2025 (Approximate), Expires: 05/05/2025 [employer] Work Phone: Comment on above: Expected: 05/05/2025 (Approximate), Expires: 05/05/2025 Start: 09-02-2024 End: 09-02-2024 ambulatory 09/02/2024 11:10 AM EDT Visit [facility] [address] [place] [id number] Shakir Choi, DO [address] [place] [address] [facility] Start: 08-21-2024 Screening for malign ant neoplasm of cervix [facility] Start: 07-17-2024 Adult BMI Screening Adult BMI Screen ing [facility] Start: 07-17-2024 Tobacco Screening Tobacco Screening [facility] Start: 07-15-2024 End: 07-15-2024 Patient encounter [...] EST Routine [facility] [address] [place] [id number] Shakir Choi, DO [address] [place] [address] [facility] Start: 06-23-2024 End: 06-23-2024 Patient encounter procedure [facility] Comment on above: Arrived Start: 06-12-2024 Respiratory Syncytia l Virus (RSV) or age 60 yrs+ (1 - Risk 1-dose series) Respiratory Syncytial Virus (RSV) or age 60 yrs+ (1 - Risk 1-dose series) [facility] Start: 06-09-2024 End: 06-09-2024 Patient encounter procedure 06/09/2024 11:20 AM EST Routine [facility] [address] [place] [id number] Shakir Choi, DO [address] [place] [address] [facility] Start: 06-03-2024 End: 06-03-2024 Patient encounter procedure 06/03/2024 2:15 PM EST Appointment [facility] [address] [place] [address] [facility] Start: 05-24-2024 End: 05-24-2025 US biophysical profile w non stress test US biophysical profile w non stress test Imaging Routine 29 weeks gestation of Third trimester SGA (small for gestational age) Expected: 05/24/2024 (Approximate), Expires: 05/24/2025 [facility] Comment on above: Expected: 05/24/2024 (Approximate), [...] AM EST Routine [facility] [address] [place] [address] Sophia Galo PA [address] [place] [address] [facility] Start: 04-12-2024 End: 04-12-2025 [...] mellitus screening Expected: 04/12/2024 (Approximate), Expires: 04/12/2025 [facility] Comment on above: Expected: 04/12/2024 (Approximate), Expires: 04/12/2025 Start: 04-01-2024 End: 04-01-2024 Telemedicine consultation with patient 04/01/2024 4:00 PM EST Telemedicine [facility] [id number] [place], [place] [id number] Jossue Swain MD [address] [place] [id number] 3 month f/u [facility] Comment on above: 3 month f/u Start: 03-15-2024 End: 03-15-2024 Patient encounter procedure 03/15/2024 10:00 AM EDT Routine [facility] [address] [place] [address] Shakir Choi DO [address] [place] [address] Arrived [facility] Comment on above: Arrived Start: 02-26-2024 End: 02-26-2024 Patient encounter procedure 02/26/2024 9:40 AM EDT Routine [facility] [address] [place] [address] Sophia Galo PA [address] [place] [address] [facility] Start: 01-29-2024 End: 01-29-2024 Patient encounter procedure 01/29/2024 10:40 AM EDT Routine [facility] [address] [place] [address] Shakir Choi, DO [address] [place] [address] [facility] Start: 01-25-2024 COVID-19 Vaccine ( season) COVID-19 Vaccine ( season) [facility] Start: 01-25-2024 COVID-19 Vaccine ( season) COVID-19 Vaccine ( season) [facility] Start: 01-25-2024 Influenza vaccination N [facility] Start: 12-25-2023 Influenza vaccination Flu vaccine (# 1) [facility] Start: 04-25-2023 Depression Screening Depression Scre [facility] Start: 01-24-2023 COVID-19 Vaccine ( season) COVID-19 Vaccine ( season) [facility] Start: 11-11-2022 DTaP,Tdap and Td Vaccines (7 - Td or Tdap) DTaP,Tdap and Td Vaccines (7 - Td or Tdap) [facility] Start: 11-11-2022 DTaP/Tdap/Td vaccine (7 - Td or Tdap) DTaP/Tdap/Td vaccine (7 - Td or Tdap) [facility] Start: 2022 Screening for malign ant neoplasm of cervix [facility] Start: 01-24-2022 Influenza vaccination Flu vacc ine (Season Ended) [facility] Start: 10-01-2021 End: 10-01-2021 Patient encounter procedure 10/01/2021 Routine Obstetrics and Gynecology Kristel De Leon N, DO [address] [place] [address] [facility] [place] Start: 09-04-2021 End: 09-04-2021 Patient encounter procedure 09/04/2021 Routine Obstetrics and Gynecology Anisha Lucas DO [address] [place] [address] [facility] Start: 01-24-2021 Influenza vaccination Flu vaccine (# 1) [facility] Start: 08-03-2019 Varicella vaccine (2 of 2 - 13+ 2-dose series) Varicella vaccine (2 of 2 - 13+ 2-dose series) [facility] Start: 07-28-2019 Hepatitis B vaccine (3 of 3 - 19+ 3-dose series) Hepatitis B vaccine (3 of 3 - 19+ 3-dose series) [facility] Start: 2013 Screening for malign ant neoplasm of cervix Pap smear [facility] Start: 09-21-2011 DTaP/Tdap/Td vaccine (1 - Tdap) DTaP/Tdap/Td vaccine (1 - Tdap) [facility] Start: 2010 Adult BMI Follow Up Plan Adult BMI Follow Up Plan [facility] Start: 2010 Hepatitis C screening Hepatitis C [facility] Start: 2004 Depression Screen Depression Screen [facility] Start: 1997 COVID-19 Vaccine (1) COVID-19 Vaccin e (1) [facility] Start: 1993 Varicella vaccine (1 of 2 - 2-dose childhood series) Varicella vaccine (1 of 2 - 2-dose childhood series) [facility] Start: 1992 Hepatitis C screening Hepatitis C [facility] Bacteria identified in Urine by Culture Urine culture Microbiology Routine UTI symptoms Ordered: 03/15/2024 [facility] [employer] Work Phone: Comment on above: Ordered: 03/15/2024 Bacteria identified in Urine by Culture Urine culture Microbiology Routine 27 weeks gestation of Urinary tract infection without hematuria, site unspecified Ordered: 05/10/2024 [facility] [employer] Work Phone: Comment on above: Ordered: 05/10/2024 Bacteria identified in Urine by Culture Urine culture Microbiology Routine Urinary tract infection without hematuria, site unspecified Ordered: 01/29/2024 [facility] Healthcare Work Phone: Comment on above: Ordered: 01/29/2024 Hemoglobin A1c/Hemoglobin.total in Blood Hemoglobin A1c Lab Routine 29 weeks gestation of Third trimester SGA (small for gestational age) Ordered: 05/24/2024 [facility] Comment on above: Ordered: 05/24/2024 Immunizations Immunization Date Immunization Notes Care Provider Walter mahmood 08-06-2019 Influenza, injectabl e, Madin [place] Canine Kidney, preservative free, quadrivalent [facility] 08-06-2019 influenza virus vaccine, unspecified formulation [facility] 07-06-2019 tuberculin skin test ; purified protein derivative solution, intradermal [facility] 07-06-2019 varicella virus vaccine [facility] 03-01-2019 hepatitis B vaccine, adult dosage [facility] 01-27-2019 hepatitis B vaccine, adult dosage [facility] 11-11-2012 tetanus toxoid, redu lucrecia diphtheria toxoid, and acellular pertussis vaccine, adsorbed [facility] 06-11-2012 influenza, seasonal, injectable [facility] 01-01-2005 measles, mumps and rubella virus vaccine [facility] 01-01-2005 poliovirus vaccine, inactivated [facility] 01-01-2005 TD(adult) unspecifie d formulation [facility] 05-02-1995 diphtheria, tetanus toxoids and acellular pertussis vaccine, unspecified formulation [facility] 03-22-1994 diphtheria, tetanus toxoids and acellular pertussis vaccine, unspecified formulation [facility] 03-22-1994 haemophilus influenz ae type b vaccine, conjugate unspecified formulation [facility] 03-22-1994 measles, mumps and rubella virus vaccine [facility] 03-22-1994 poliovirus vaccine, unspecified formulation [facility] 07-27-1993 diphtheria, tetanus toxoids and acellular pertussis vaccine, unspecified formulation [facility] 07-27-1993 haemophilus influenz ae type b vaccine, conjugate unspecified formulation [facility] 07-27-1993 hepatitis B vaccine, pediatric or pediatric/adolescent dosage [facility] 07-27-1993 poliovirus vaccine, unspecified formulation [facility] 1992 diphtheria, tetanus toxoids and acellular pertussis vaccine, unspecified formulation [facility] 1992 haemophilus influenz ae type b vaccine, conjugate unspecified formulation [facility] 1992 hepatitis B vaccine, pediatric or pediatric/adolescent dosage [facility] poliovirus vaccine, unspecified formulation [facility] 1992 hepatitis B vaccine, pediatric or pediatric/adolescent dosage [facility] Payers Date Payer Category Payer Medicaid (Managed Care) [employer] [id number] 2003 Medicaid [id number] 2003 Medicaid HMO [employer] [id number] 1992 Unknown [id number] 2.16.840.1.305490.3.579.2. 593 1992 Unknown [id number] 2.16.840.1.172668.3.579.2. 593 1992 Unknown [id number] 2.16840.1.975545.3.579.2. 593 1992 Unknown [id number] 2.16.840.1.747601.3.579.2. 593 1992 Unknown [id number] 2.16840.1.140044.3.579.2. 593 1992 Unknown [id number] 2.16840.1.808012.3.579.2. 93 1992 Unknown [id number] 2.16.840.1.917284.3.579.2. 177 1992 Unknown [id number] 2.16840.1.289421.3.579.2. 175 1992 Unknown [id number] 2.16840.1.575897.3.579.2. 175 1992 Unknown [id number] 2.16.840.1.031654.3.579.2. 175 1992 Unknown [id number] 2.16840.1.543303.3.579.2. 175 1992 Unknown [id number] 2.16.840.1.037267.3.579.2. 175 1992 Unknown [id number] 2.16.840.1.504039.3.579.2. 1286 1992 Unknown [id number] 2.16.840.1.287073.3.579.2. 1285 1992 Unknown [id number] 2.840.1.044440.3.579.2. 1285 1992 Unknown [id number] 2.840.1.172171.3.579.2. 1285 1992 Unknown [id number] 2.840.1.365603.3.579.2. 1285 1992 Unknown [id number] 2.840.1.989249.3.579.2. 1285 1992 Unknown [id number] 2.0.1.285395.3.579.2. 1285 1992 Unknown [id number] 2.0.1.813114.3.579.2. 1285 1992 Unknown [id number] 2..1.023245.3.579.2. 1285 1992 Unknown [id number] 2..1.138132.3.579.2. 1285 1992 Unknown [id number] 2..1.285134.3.579.2. 1258 1992 Unknown [id number] 2..1.496082.3.579.2. 1258 1992 Unknown [id number] 2.1.101973.3.579.2. 1258 1992 Unknown [id number] 2.840.1.838689.3.579.2. 1258 1992 Unknown [id number] 1992 Unknown [id number] 1992 Unknown [id number] 1992 Unknown [id number] 1992 Unknown [id number] 1992 Unknown [id number] 1959 Self-pay [id number] 1959 Unknown [id number] Unknown [id number] Social History Date Type Detail Facility Start: 06-23-2012 End: 01-01-2024 [facility] Never [facility] tobacco [employer] Phone: Start: 06-23-2012 End: 01-01-2024 Tobacco use and exposure Smokeless tobacco non-user [employer] Phone: Start: 08-21-2021 End: 07-15-2024 Alcohol intake Lifetime non-drinker (finding) [facility] Phone: Start: 08-21-2021 History SDOH Alcohol Frequency 1 [employer] Phone: Start: 02-16-2021 [facility] [employer] Phone: Start: 1990 [facility] Start: 09-01-2021 End: 09-04-2021 Tobacco smoking status [facility] Ex-smoker [employer] Start: 09-04-2021 End: 05-05-2024 Alcohol intake Ex-drinker (finding) [employer] Phone: Start: 07-06-2020 End: 01-01-2024 History of Social function [facility] Start: 07-06-2020 End: 01-01-2024 Tobacco use panel [facility] Start: 1990 Sex assigned at Female [facility] History of tobacco use Current smoker [facility] Start: 07-17-2023 Alcoholic beverage intake Current drinker of alcohol (finding) [facility] Adolescent depressio n screening assessment 0 [facility] The thought of krishan jeronimo myself has occurred to me Never [facility] Start: 05-01-2018 Alcohol Comment once a month / couple glasses of wine [facility] Has the electric, discoapi s, oil, or water company threatened to shut off services in your home in past 12Mo No [facility] Start: 12-29-2014 Sex Female (finding) [facility] Goals Date Patient Goal Desired Activity /State Personal health goal Clinical Notes 09-08-2023 to 07-15-2024 Juan Miguel Christensen, [facility] - 07/15/2024 11:20 AM Ingrid Christensen, [facility] - 07/08/2024 2:40 PM ANABELLA Geller - 06/23/2024 10:40 AM Jenelle Nunez, [facility] - 06/09/2024 11:20 AM EST Note Date [...] Past Medical History: Diagnosis Date Anxiety Asthma ([facility]) Chlamydia Depression ([facility]) History of miscarriage Iron deficiency anemia SAB (spontaneous ) UTI (urinary tract infection) HISTORY PAST MEDICAL HISTORY SOCIAL HISTORY Past Medical History: Diagnosis Date Anxiety Asthma ([facility]) Chlamydia Depression ([facility]) History of miscarriage Iron [...] nursing note reviewed. Exam conducted with a energy and sustainability manager present. Vitals: Estimated body mass index is [...] will send IOL packet and Episode to [facility]. Patient is being induced due to history of precipitous labor. Patient to setup appointment fo r6 weeks post prior to leaving office. Patient aware to enter through ER entrance on 07/22/24 @0500 to be directed to [facility] for induction of labor. Documented by Juan Miguel Christensen LPN on behalf of: Shakir Choi DO documented in this encounter [facility] 07-08-2024 History of Presen t illness [...] Past Medical History: Diagnosis Date Anxiety Asthma ([facility]/HCC) Chlamydia Depression ([facility]) History of miscarriage Iron deficiency anemia SAB (spontaneous ) UTI (urinary tract infection) HISTORY PAST MEDICAL HISTORY SOCIAL HISTORY Past Medical History: Diagnosis Date Anxiety Asthma (CMS/HCC) Chlamydia Depression ([facility]) History of miscarriage Iron [...] nursing note reviewed. Exam conducted with a energy and sustainability manager present. Vitals: Estimated body mass index is [...] Shakir Choi DO documented in this encounter [facility] 06-23-2024 History of Presen t illness [...] Diagnosis Date Anxiety Asthma (CMS/HCC) Chlamydia Depression ([facility]) History of miscarriage Iron deficiency anemia SAB (spontaneous ) UTI (urinary tract infection) HISTORY PAST MEDICAL HISTORY SOCIAL HISTORY Past Medical History: Diagnosis Date Anxiety Asthma (CMS/HCC) Chlamydia Depression (CMS/[facility]) History of miscarriage Iron deficiency [...] having contractions on 06/20/2024 and went to [facility] for evaluation pt states she was given IV fluids and the contractions went away. On 06/22/2024 pt states she went to [facility] due to contractions again @ [...] of: ANABELLA Gleason documented in this encounter [facility] 06-09-2024 History of Presen t illness [...] Past Medical History: Diagnosis Date Anxiety Asthma ([facility]) Chlamydia Depression ([facility]) History of miscarriage Iron deficiency anemia SAB (spontaneous ) UTI (urinary tract infection) HISTORY PAST MEDICAL HISTORY SOCIAL HISTORY Past Medical History: Diagnosis Date Anxiety Asthma ([facility]) Chlamydia Depression ([facility]) History of miscarriage Iron [...] nursing note reviewed. Exam conducted with a energy and sustainability manager present. Vitals: Estimated body mass index is [...] Shakir Choi DO documented in this encounter [facility] 05-24-2024 History of Presen t illness [...] was seen and admitted to hospital in [place] when she was on jeane stating they [...] of: ANABELLA Gleason documented in this encounter [facility] 05-10-2024 History of Presen t illness [...] nursing note reviewed. Exam conducted with a energy and sustainability manager present. Vitals: Estimated body mass index is [...] a day. Is doing growth ultrasounds at [facility] on 06/03/ will start here after, NST/BPP at 32 weeks. Rx for macrobid faxed to pharmacy. Orders Placed This Encounter Procedures Urine culture POCT urinalysis dipstick manually resulted Follow Up: Patient is to return to office in 2 week for routine OB appointment. Documented by Ct Nunez LPN on behalf of: Sophia Galo PA-C documented in this encounter [facility] 05-05-2024 History of Presen t illness [...] female Have you been seen here at [facility] in a previous ? Yes Recent ER visits or hospitalizations? Yes , spotting Bring blood sugar log or meter with you today? (Please bring them with you for every visit at [facility]) n/a Flu vaccine (Mar-July)? No [...] discussed pediatric orthopedic follow-up postnatally. Ct personal care aid met with the patient after the visit. [...] with Pediatric Orthopedic surgery postnatally. Ct personal care aid met with the patient today. Plan reviewed with patient. She vocalized understanding all questions answered. The patient is to continue with routine care in your office [facility], the CDC, and other organizations representing maternal and public health professionals recommend that , , and lactating people and those considering receive the COVID-19 vaccination. Vaccination is the best method to reduce maternal and complications of SARS-CoV-2 infection. This document was created with [employer] technology. Though I make every effort to review the dictation as it is transcribed, on occasion the spoken word can be misinterpreted by the technology leading to inappropriate words, phrases, or sentences. This note is addressed to the requesting provider as a consultation for clinical guidance. Specific medical abbreviations are occasionally used and those are generally approved by the [place]?Board of?Obstetrics and?Gynecology?as well as?Kenna s abbreviations. The above plan of care was based solely on the diagnoses for which a consultation was requested. ?More frequent testing may be indicated based on her other medical/obstetrical conditions. The management of other or medical conditions is beyond the scope of requested consultation and will continue to be followed by the primary senior security analyst or primary care provider. Thank you for [...] procedures Referring and communicating with other health day care attendant (not separately reported) Documenting clinical information in the electronic or other health record Independently interpreting results (not separately reported) and communicating results to the patient/family/caregiver Care coordination (not separately reported) documented in this encounter [facility] 04-12-2024 History of Presen t illness Narrative [...] Past Medical History: Diagnosis Date Anxiety Asthma ([facility]) Chlamydia Depression ([facility]) History of miscarriage Iron deficiency anemia SAB (spontaneous ) UTI (urinary tract infection) HISTORY PAST MEDICAL HISTORY SOCIAL HISTORY Past Medical History: Diagnosis Date Anxiety Asthma ([facility]) Chlamydia Depression ([facility]) History of miscarriage Iron [...] of: ANABELLA Gleason documented in this encounter [facility] 03-15-2024 History of Presen t illness [...] nursing note reviewed. Exam conducted with a energy and sustainability manager present. Vitals: Estimated body mass index is [...] Shakir Choi DO documented in this encounter [facility] 02-06-2024 History of Presen t illness Narrative Pt here for Feraheme infusion. Infusion complete without incident. Pt d/c'd in stable condition. Returns 04-01-24 for MD f/u. documented in this encounter [facility] 01-29-2024 History of Presen t illness [...] Past Medical History: Diagnosis Date Anxiety Asthma ([facility]) Chlamydia Depression ([facility]) History of miscarriage Iron deficiency anemia SAB (spontaneous ) UTI (urinary tract infection) HISTORY PAST MEDICAL HISTORY SOCIAL HISTORY Past Medical History: Diagnosis Date Anxiety Asthma ([facility]) Chlamydia Depression ([facility]) History of miscarriage Iron [...] nursing note reviewed. Exam conducted with a energy and sustainability manager present. Vitals: Estimated body mass index is [...] or undercooked meat, and [facility] from [facility]. Patient has been consulted regarding any further [...] Shakir Choi DO documented in this encounter [facility] 11-21-2023 Miscellaneous Notes Care Coordination Outreach [...] appointment. Letter sent. documented in this encounter [facility] 11-21-2023 Telephone encounter Note Care Coordination Outreach performed to coordinate overdue appointments, testing, and/or follow-up care: Yes Audit/Outreach Date: November 21, 2023 Reason: Well Person Method: Telephone and MyChart Outreach Attempt: First Outcome: Left Message and letter sent Next PCP Appointment: N/A Tests/Referrals Pended: N/A Resources/Education Provided: Additional Comments: Unable to reach patient by telephone to schedule appointment. Letter sent. [facility] 09-08-2023 Miscellaneous Notes Care Coordination Outreach [...] of UTI symptoms documented in this encounter [facility]* Diagnosis Bacterial vaginosis- Primary Unspecified vaginitis and vulvovaginitis 23 weeks gestation of Second trimester state, incidental Diabetes mellitus screening Screening for diabetes mellitus documented in this encounter [facility] HealthcareEvaluation note* Diagnosis 27 weeks gestation of Second trimester state, incidental Urinary tract infection without hematuria, site unspecified documented in this encounter [facility] HealthcareEvaluation note* Diagnosis First trimester state, incidental Nausea Nausea alone Urinary tract infection without hematuria, site unspecified documented in this encounter [facility] HealthcareEvaluation note* Diagnosis 29 weeks gestation of Third trimester state, incidental SGA (small for gestational age) [id number] without mention of malnutrition, unspecified (weight) documented in this encounter [facility] HealthcareEvaluation note* Diagnosis 31 weeks gestation of Second trimester state, incidental Right club foot Premature uterine contractions, antepartum Unspecified abnormality of labor, antepartum documented in this encounter [facility] HealthcareEvaluation note* Diagnosis Iron deficiency anemia, unspecified iron deficiency anemia type- Primary [facility] Diagnosis Third trimester state, incidental [...] antepartum, third trimester documented in this encounter [facility] HealthcareInstructionsNot on filedocumented in this encounterPro[facility] SystemInstructionsNot on filedocumented in this encounterProReg[facility] SystemInstructionsNot on filedocumented in this encounterProRegional Medical Center SystemReason for visit Narrative* Treatment Plan and Therapy Plan (Routine) - Authorized Specialty Diagnoses / Procedures Referred By Curtis fernandes Referred To Contact Diagnoses Iron deficiency anemia, unspecified iron deficiency anemia type Procedures HI FERUMOXYTOL, NON-ESRD Jossue Swain MD [address] [place] [address] [facility] Med On[facility] [address] [place] [id number] Referral ID Status Reason Start Date Expiration Date V isits Requested Visits Authorized [id number] Authorized 01/14/2024 04/15/2024 10 10 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 ACP-Advance Directive ACP-Power of Department Store Salesperson Date Activated Date Inactivated Comments 10/02/2021 12:27 [...] and content) DATE CREATED AUTHOR 08/08/2021 [facility] DATE CREATED AUTHOR AUTHOR'S ORGANIZ ATION 03/23/2023 [facility] DATE CREATED AUTHOR AUTHOR'S ORGANIZ ATION 12/11/2023 [facility] DATE CREATED AUTHOR AUTHOR'S ORGANIZ ATION 02/08/2024 [facility] DATE CREATED AUTHOR AUTHOR'S ORGANIZ ATION 06/08/2024 [facility] DATE CREATED AUTHOR AUTHOR'S ORGANIZ ATION 06/24/2024 [facility] DATE CREATED AUTHOR AUTHOR'S ORGANIZ ATION 07/17/2024 [facility] dical Specialists EPIC Care Teams (unrecognized sec tion and content) [employer] Relationship Specialty Start Date End Date Benson Dial MD PCP - General 10/08/12 [employer] Relationship Specialty Start Date End Date Benson Dial MD PCP - General 10/08/12 [employer] Relationship Specialty Start Date End Date Vinicius Quintana MD [address] [place] [address] PCP - General Family Medicine 03/03/23 [employer] Relationship Specialty Start Date End Date Vinicius Quintana MD [address] [place] [address] PCP - General Family Medicine 03/03/23 [employer] Relationship Specialty Start Date End Date Viincius Quintana MD [address] [place] [address] PCP - General Family Medicine 03/03/23 [employer] Relationship Specialty Start Date End Date Vinicius Quintana MD [address] [place] [address] PCP - General Family Medicine 03/03/23 [employer] Relationship Specialty Start Date End Date Vinicius Quintana MD [address] [place] [address] PCP - General Family Medicine 03/03/23 [employer] Relationship Specialty Start Date End Date Vinicius Quintana MD [address] [place] [address] PCP - General Family Medicine 03/03/23 [employer] Relationship Specialty Start Date End Date Vinicius Quintana MD [address] [place] [address] PCP - General Family Medicine 03/03/23 [employer] Relationship Specialty Start Date End Date Vinicius Quintana MD [address] [place] [address] PCP - General Family Medicine 03/03/23 [employer] Relationship Specialty Start Date End Date Vinicius Quintana MD [address] [place] [address] PCP - General Family Medicine 03/03/23 [employer] Relationship Specialty Start Date End Date Vinicisu Quintana MD [address] [place] [address] PCP - General Family Medicine 03/03/23 [employer] Relationship Specialty Start Date End Date Vinicius Quintana MD [address] [place] [address] PCP - General Family Medicine 03/03/23 [employer] Relationship Specialty Start Date End Date Benson Dial MD PCP - General 10/08/12 [employer] Relationship Specialty Start Date End Date Vinicius Quintana MD [address] [place] [address] PCP - General Family Medicine 03/03/23 [employer] Relationship Specialty Start Date End Date Vinicius Quintana MD [address] [place] [address] PCP - General Family Medicine 03/03/23 [employer] Relationship Specialty Start Date End Date Vinicius Quintana MD [address] [place] [address] PCP - General Family Medicine 03/01/17 [employer] Relationship Specialty Start Date End Date Vinicius Quintana MD [address] [place] [address] PCP - General Family Medicine 03/01/17 [employer] Relationship Specialty Start Date End Date Vinicius Quintana MD [address] [place] [address] PCP - General Family Medicine 03/01/17 Reason [...] BE BASED ON THE PRIMARY CLINICAL RECORDS. [employer] [facility]. provides no warranty or guarantee of the accuracy or completeness of information in this document.
[2024-07-20 19:41] LABS: Hematocrit 32.5 % (36.0-48.0); Hemoglobin 11.1 g/dL (12.0-16.0); Mean Corpuscular HGB Conc 34.2 g/dL (29.9-35.2); Mean Corpuscular Hemoglobin 32.5 pg (26.7-34.0); Mean Platelet Volume 11.2 fL (9.5-13.5); Platelet Count 272 10^3/uL (150-450); Red Blood Count 3.42 10^6/uL (4.20-5.40); Red Cell Distribution Width 14.1 % (11.0-15.0); White Blood Count 13.9 10^3/uL (4.0-11.0)
[2024-07-20 19:43] LABS: Bilirubin Urine SMALL (NEGATIVE); Blood Urine LARGE (NEGATIVE); Clarity Urine CLEAR (CLEAR); Color Urine YELLOW (YELLOW); Glucose Urine UA NEGATIVE (NEGATIVE); Ketones Urine TRACE mg/dL (NEGATIVE); Leukocyte Esterase Urine MODERATE (NEGATIVE); Nitrite Urine NEGATIVE (NEGATIVE); Protein Urine 100 mg/dL (NEG/TRACE); Specific Gravity Urine 1.025 (1.005-1.025); pH Urine 6.5 (5.0-9.0)
[2024-07-20] MEDS: NALBUPHINE HCL 10 MG/ML AMPULE IV (19:47)
[2024-07-20 19:49] LABS: Urine Microscopic Indicated YES
[2024-07-20 19:53] LABS: Bacteria Urine TRACE #/HPF (NONE SEEN); Cast Seen? NONE SEEN #/LPF (NONE SEEN); Crystals Seen? None Seen #/HPF (None Seen); Mucus Urine NONE SEEN (NONE SEEN); Squamous Epithelial Cell Urine FEW #/LPF (NONE/RARE)
[2024-07-20 19:54] LABS: Amphetamine Screen Urine NEGATIVE (NEGATIVE); Barbiturates Screen Urine NEGATIVE (NEGATIVE); Benzodiazepines Screen Urine NEGATIVE (NEGATIVE); Buprenorphine Screen Urine NEGATIVE (NEGATIVE); Cannabinoid Screen Urine NEGATIVE (NEGATIVE); Cocaine Screen Urine NEGATIVE (NEGATIVE); Methadone Screen Urine NEGATIVE (NEGATIVE); Methamphetamines Screen Urine NEGATIVE (NEGATIVE); Opiate Screen Urine NEGATIVE (NEGATIVE); Oxycodone Screen Urine NEGATIVE (NEGATIVE); Phencyclidine Screen Urine NEGATIVE (NEGATIVE); Tricyclic Antidepressant Urine NEGATIVE (NEGATIVE); Urine Culture Indicated YES-LC
[2024-07-20] MEDS: ROPIVACAINE HCL/PF 400 MG/200 ML PREMIX 6 MG EPIDURAL (20:54)
[2024-07-20] MEDS: OXYTOCIN/0.9 % SODIUM CHLORIDE 20 UNITS/1,000 ML PLAST..BAG 125 UNIT IV (21:45)
--- NOTE | 2024-07-20 21:49 | PM.OBPRCVD ---
Procedure Intrapartal events: None Induction method: none Delivery augmentation: rupture of membranes Delivery monitor: external FHT and external uterine Route of delivery: Episiotomy Description: none L&D Laceration Description: none Estimated blood loss (mL): 200 Anesthesia type: Epidural Disposition: floor Delivery date: 07/20/24 Gender: female presentation: vertex Placental delivery description: Spontaneous cord description: 3 Vessels
[2024-07-20] MEDS: IBUPROFEN 600 MG TABLET PO (23:50)
[2024-07-20] MEDS: BENZOCAINE/MENTHOL 85 GRAM SPRAY BOTTLE 1 APPLIC TOPICAL (23:50)
[2024-07-20] MEDS: GLYCERIN/WITCH HAZEL PADS 1 PAD TOPICAL (23:50)
[2024-07-21 07:16] LABS: Basophils Absolute Auto 0.1 10^3/uL (0.0-0.1); Basophils Percent Auto 0.3 % (0.2-2.0); Eosinophils Absolute Auto 0.2 10^3/uL (0.0-0.7); Eosinophils Percent Auto 1.1 % (0.9-7.0); Hematocrit 30.4 % (36.0-48.0); Hemoglobin 10.1 g/dL (12.0-16.0); Immature Granulocytes Abs Auto 0.08 10^3/uL (0.00-0.03); Immature Granulocytes Pct Auto 0.5 % (0.0-0.5); Lymphocytes Percent Auto 18.5 % (20.5-60.0); Mean Corpuscular HGB Conc 33.2 g/dL (29.9-35.2); Mean Corpuscular Hemoglobin 32.1 pg (26.7-34.0); Mean Corpuscular Volume 96.5 fL (81.0-99.0); Mean Platelet Volume 11.3 fL (9.5-13.5); Monocytes Absolute Auto 1.5 10^3/uL (0.3-0.8); Neutrophils Absolute Auto 11.3 10^3/uL (1.4-6.5); Neutrophils Percent Auto 70.6 % (43.0-75.0); Platelet Count 250 10^3/uL (150-450); Red Blood Count 3.15 10^6/uL (4.20-5.40); Red Cell Distribution Width 14.2 % (11.0-15.0); White Blood Count 16.1 10^3/uL (4.0-11.0)
[2024-07-21] MEDS: IBUPROFEN 600 MG TABLET PO ×3 (07:39→21:10)
[2024-07-21 07:40] VITALS: BP 130/80; PULSE 62
--- NOTE | 2024-07-21 07:45 | PM.OBPN ---
OB - PN: Subj Subjective Patient comments: no complaints and pain well controlled [place] status: doing well Exam Constitutional Vital Signs, click to edit/add: Last Vital Signs Pulse 62 07/21/24 07:40 Resp 18 07/20/24 23:45 BP 130/80 07/21/24 07:40 O2 Del Method Room Air 07/20/24 23:45 Documenting provider has reviewed patient's vital signs: yes Common normals: no apparent distress Respiratory Common normals: clear to auscultation bilaterally Cardio Common normals: regular rate and regular rhythm GI Common normals: Normal to inspection, nondistended, normoactive bowel sounds present Extremity Common normals: no clubbing, cyanosis or edema and no calf tenderness Results Labs Labs: Short CBC 07/20/24 07/21/24 Range/Units 19:30 06:31 WBC 13.9 H 16.1 H (4.0-11.0) 10^3/uL Hgb 11.1 L 10.1 L (12.0-16.0) g/dL Hct 32.5 L 30.4 L (36.0-48.0) % Plt Count 272 250 (150-450) 10^3/uL Urine 07/20/24 Range/Units 19:25 Urine Color Yellow (YELLOW) Urine Clarity Clear (CLEAR) Urine pH 6.5 (5.0-9.0) Ur Specific [place] 1.025 (1.005-1.025) Urine Protein 100 A (NEG/TRACE) mg/dL Urine Glucose (UA) Negative (NEGATIVE) mg/dL OB - PN: A/P Plan - Vaginal Delivery day: 1 Plan: routine care Time Spent with Patient Time: Total time spent is greater than 50% in coordination of care (as documented) at patient's floor/unit and/or counseling patient: Total time spent with greater than 50% in coordination of care (as documented) at patient's floor/unit and/or counseling patient: less than 15 minutes
[2024-07-21] MEDS: ACETAMINOPHEN 325 MG TABLET 650 MG PO (11:44)
[2024-07-21] MEDS: DOCUSATE SODIUM 100 MG CAPSULE PO ×2 (13:10→21:11)
[2024-07-21 16:26] VITALS: BP 120/64; PULSE 61; TEMP 36.1; TEMP 36.6
[2024-07-22] MEDS: ACETAMINOPHEN 325 MG TABLET 650 MG PO ×2 (00:19→08:28)
[2024-07-22 00:20] VITALS: TEMP 36.7
[2024-07-22 00:21] VITALS: BP 123/79; PULSE 65
[2024-07-22] MEDS: IBUPROFEN 600 MG TABLET PO (04:41)
[2024-07-22 08:27] VITALS: BP 142/77; PULSE 67; TEMP 36.5
[2024-07-22] MEDS: DOCUSATE SODIUM 100 MG CAPSULE PO (08:28)
--- NOTE | 2024-07-22 08:36 | P.OBPN_ITS ---
OB - PN: Subj Subjective Patient comments: no complaints [place] status: doing well feeding status: exclusively Exam Constitutional Vital Signs, click to edit/add: Last Vital Signs Temp 98.0 F 07/22/24 00:20 Pulse 67 07/22/24 08:27 Resp 17 07/22/24 00:20 BP 142/77 H 07/22/24 08:27 O2 Del Method Room Air 07/22/24 00:20 Documenting provider has reviewed patient's vital signs: yes Common normals: no apparent distress General appearance: cooperative Orientation/consciousness: Yes awake, Yes oriented to person, Yes oriented to place and Yes oriented to time HENMT Common normals: normocephalic Eye Common normals: EOMs intact bilaterally General eye: normal appearance of both eyes Neck & C-Spine Common normals: full ROM Lymph Lymphatic: no lymphadenopathy noted Chest Common normals: inspection of chest normal Respiratory Common normals: normal respiratory effort, no retractions, no use of accessory muscles, clear to auscultation bilaterally and percussion normal Effort & inspection: able to speak in complete sentences Auscultation: clear to auscultation bilaterally Cardio Common normals: regular rate and regular rhythm Rate: regular rate Rhythm: regular rhythm GI Common normals: Normal to inspection, nondistended, normoactive bowel sounds present Palpation: soft Common normals: no CVA tenderness Back & Pelvis Common normals: no CVA tenderness Thoracic spine/upper back: normal to inspection Lumbar spine/lower back: normal to inspection Extremity Common normals: normal to inspection, full ROM, normal capillary refill, no joint enlargement, no clubbing, cyanosis or edema, no calf tenderness and no pedal edema Neuro Common normals: oriented x3 Sensorium/orientation: awake, alert, oriented to person, oriented to place, oriented to time and orientation impaired Psych Common normals: mental status grossly normal, thought process normal, cooperative, affect normal, speech normal, activity/motor behavior normal, denies hallucinations, denies homicidal ideation and denies suicidal ideation Appearance: grossly normal Attitude: calm Thought process: normal thought process OB - PN: A/P Plan - Vaginal Delivery day: 1 Plan: discharge home Time Spent with Patient Time: Total time spent is greater than 50% in coordination of care (as documented) at patient's floor/unit and/or counseling patient: Total time spent with greater than 50% in coordination of care (as documented) at patient's floor/unit and/or counseling patient: less than 15 minutes
== END 2024-07-22 12:15 | disposition home or self-care (01) | DRG 560 ==
PROVIDERS: Admitting Provider Obstetrics & Gynecology; PCP Family Medicine; Visit Provider Obstetrics & Gynecology
DX: O80 Encounter for full-term uncomplicated delivery (principal); Z3A.37 37 weeks gestation of pregnancy; Z37.0 Single live birth; Z87.440 Personal history of urinary (tract) infections
CPT/HCPCS: 36415; 51702; 59025; 59050; 59410; 80307; 81001; 85025; 85027; 86850; 86900; 86901; 87086; 88307; J2300; J2795